=== PATIENT | male | born 1935 | race Caucasian/White ===

== ENCOUNTER 2020-02-22 06:44 | Outpatient (REF) | payer MEDICARE, OTHER, SELFPAY ==
[2020-02-22 08:14] LABS: Alanine Aminotransferase 14 U/L (0-40); Albumin Level 4.5 g/dL (3.5-5.0); Alkaline Phosphatase 57 U/L (39-117); Anion Gap 15 (12-20); Aspartate Amino Transferase 13 U/L (5-37); Bilirubin Total 0.7 mg/dL (0.0-1.0); Blood Urea Nitrogen 21 mg/dL (9-16); Calcium 8.8 mg/dL (8.4-10.2); Carbon Dioxide 23 mmol/L (22-29); Chloride 101 mmol/L (96-108); Cholesterol 145 mg/dL; Estimated Glomerular Filt Rate > 60; Glucose Fasting 169 mg/dL (60-99); HDL Cholesterol 37 mg/dL; LDL Cholesterol Calculated 78 mg/dl; Potassium 4.3 mmol/l (3.3-5.1); Sodium 135 mmol/L (135-145); Total Protein 7.5 g/dL (6.5-8.0); Triglycerides 150 mg/dL
[2020-02-22 10:01] LABS: Estimated Average Glucose 160 mg/dL; Hemoglobin A1c % 7.2 %
== END 2020-02-22 06:45 | disposition home or self-care (01) ==
LOC: HO.LAB 06:44
PROVIDERS: Visit Provider Internal Medicine
DX: E11.9 Type 2 diabetes mellitus without complications (principal)
CPT/HCPCS: 80053; 80061; 83036

== ENCOUNTER 2020-08-10 08:11 | Outpatient (REF) | payer MEDICARE, OTHER, SELFPAY ==
[2020-08-10 08:50] LABS: MANUAL DIFF FLAG NO
[2020-08-10 08:54] LABS: Basophils Percent Auto 0.6 % (0-2); Eosinophils Absolute Auto 0.1 X10*3/uL (0.0-0.4); Eosinophils Percent Auto 1.1 % (0-4); Hematocrit 43.4 % (42-52); Hemoglobin 14.7 g/dl (14.0-18.0); Imm Gran Abs Auto 0.03 X10*3/uL (0.00-0.03); Imm Gran Pct Auto 0.5 % (0.0-0.4); Lymphocytes Absolute Auto 1.5 X10*3/uL (1.2-4.9); Lymphocytes Percent Auto 21.8 % (20-40); Mean Corpuscular HGB Conc 33.9 g/dl (31.0-36.0); Mean Corpuscular Hemoglobin 30.9 pg (27.0-33.0); Mean Corpuscular Volume 91.2 fL (80-98); Mean Platelet Volume 10.1 fL (9.4-12.4); Monocytes Absolute Auto 0.5 X10*3/uL (0.1-1.2); Monocytes Percent Auto 7.7 % (2-11); Neutrophils Absolute Auto 4.5 X10*3/uL (2.0-8.3); Neutrophils Percent Auto 68.3 % (45-73); Platelet Count 255 X10*3/uL (160-400); Red Blood Count 4.76 X10*6/uL (4.60-5.80); Red Cell Distribution Width 12.7 % (11.0-16.0); White Blood Count 6.6 X10*3/uL (4.8-10.8)
[2020-08-10 09:19] LABS: Alanine Aminotransferase 22 U/L (0-40); Albumin Level 4.5 g/dL (3.5-5.0); Alkaline Phosphatase 59 U/L (39-117); Anion Gap 16 (12-20); Aspartate Amino Transferase 16 U/L (5-37); Blood Urea Nitrogen 20 mg/dL (9-16); Calcium 9.6 mg/dL (8.4-10.2); Carbon Dioxide 24 mmol/L (22-29); Chloride 101 mmol/L (96-108); Cholesterol 143 mg/dL; Estimated Glomerular Filt Rate 58; Glucose Fasting 180 mg/dL (60-99); HDL Cholesterol 35 mg/dL; LDL Cholesterol Calculated 74 mg/dl; Potassium 4.6 mmol/L (3.3-5.1); Sodium 136 mmol/L (135-145); Total Protein 7.6 g/dL (6.5-8.0); Triglycerides 170 mg/dL
[2020-08-10 09:33] LABS: Estimated Average Glucose 171 mg/dL; Hemoglobin A1c % 7.6 %
== END 2020-08-10 08:12 | disposition home or self-care (01) ==
LOC: HO.LAB 08:11
PROVIDERS: PCP Internal Medicine; Visit Provider Internal Medicine
DX: Z00.00 Encounter for general adult medical examination without abnormal findings (principal); E11.9 Type 2 diabetes mellitus without complications
CPT/HCPCS: 36415; 80053; 80061; 83036; 85025

== ENCOUNTER 2021-01-25 06:47 | Outpatient (REF) | payer MEDICARE, OTHER, SELFPAY ==
[2021-01-25 07:53] LABS: Cholesterol 145 mg/dL; HDL Cholesterol 33 mg/dL; LDL Cholesterol Calculated 81 mg/dl; Triglycerides 156 mg/dL
[2021-01-25 09:00] LABS: Estimated Average Glucose 166 mg/dL; Hemoglobin A1c % 7.4 %
== END 2021-01-25 06:48 | disposition home or self-care (01) ==
LOC: HO.LAB 06:47
PROVIDERS: PCP Internal Medicine; Visit Provider Internal Medicine
DX: E11.9 Type 2 diabetes mellitus without complications (principal)
CPT/HCPCS: 36415; 80061; 83036

== ENCOUNTER 2021-05-31 11:05 | Outpatient (REF) | payer MEDICARE, OTHER, SELFPAY ==
--- NOTE | ~2021-05-31 | XR_ITS ---
EXAMINATION: XR KNEE, RIGHT CLINICAL INFORMATION: Right anterior knee pain COMPARISON: None TECHNIQUE: Two views of the right knee. FINDINGS: Bone alignment is normal. No fracture or dislocation is seen. There is mild medial femoral tibial joint space narrowing. There are small osteophytes at the patellofemoral joint. There is an osteophyte at the quadriceps tendon insertion to the patella. There is no joint effusion. XR/XR knee RT 2V IMPRESSION: Mild degenerative changes.
== END 2021-05-31 11:06 | disposition home or self-care (01) ==
LOC: HO.XRAY 11:05
PROVIDERS: PCP Internal Medicine; Visit Provider Nurse Practitioner Acute Care
DX: M25.561 Pain in right knee (principal)
CPT/HCPCS: 73560

== ENCOUNTER 2021-06-09 09:41 | Outpatient (REF) | payer MEDICARE, OTHER, SELFPAY ==
--- NOTE | ~2021-06-09 | XR_ITS ---
EXAMINATION: XR HIP, RIGHT CLINICAL INFORMATION: Right hip pain COMPARISON: September 23, 2009 TECHNIQUE: AP pelvis and 2 views of the right hip. FINDINGS: AP film of the pelvis does not demonstrate any evidence of acute fracture or diastases. Changes of enthesopathy seen bilaterally. Prominent vascular calcifications are seen. 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 There is some sclerosis seen about the sacroiliac joint margins more prominent on the iliac sides without definite evidence of fusion or narrowing. 2 views of the right hip do not demonstrate evidence of acute fracture or dislocation. There is some collar spurring present with no abnormal lytic or sclerotic lesions. There is some spurring seen about the greater and lesser trochanters. No femoral head collapse is seen. XR/XR hip RT w PEL1V IMPRESSION: Changes of enthesopathy about the pelvis and hips. No acute fracture, dislocation, or destructive bony lesion appreciated.
== END 2021-06-09 09:42 | disposition home or self-care (01) ==
LOC: HO.XRAY 09:41
PROVIDERS: PCP Internal Medicine; Visit Provider Nurse Practitioner Acute Care
DX: M25.551 Pain in right hip (principal)
CPT/HCPCS: 73502

== ENCOUNTER 2021-09-05 06:10 | Outpatient (REF) | payer MEDICARE, OTHER, SELFPAY ==
[2021-09-05 08:26] LABS: Prostate Specific Antigen Scr 2.51 ng/mL (<0.05-4.0)
== END 2021-09-05 06:11 | disposition home or self-care (01) ==
LOC: HO.LAB 06:10
PROVIDERS: PCP Internal Medicine; Visit Provider Nurse Practitioner Family
DX: Z12.5 Encounter for screening for malignant neoplasm of prostate (principal)
CPT/HCPCS: 36415; 84153

== ENCOUNTER 2021-09-27 07:02 | Outpatient (REF) | payer MEDICARE, OTHER, SELFPAY ==
[2021-09-27 07:18] LABS: MANUAL DIFF FLAG NO
[2021-09-27 07:27] LABS: Basophils Absolute Auto 0.1 X10*3/uL (0.0-0.2); Basophils Percent Auto 0.9 % (0-2); Eosinophils Absolute Auto 0.1 X10*3/uL (0.0-0.4); Eosinophils Percent Auto 1.7 % (0-4); Hematocrit 41.3 % (42.0-52.0); Hemoglobin 14.2 g/dl (14.0-18.0); Imm Gran Abs Auto 0.03 X10*3/uL (0.00-0.03); Imm Gran Pct Auto 0.4 % (0.0-0.4); Lymphocytes Absolute Auto 1.9 X10*3/uL (1.2-4.9); Lymphocytes Percent Auto 24.4 % (20-40); Mean Corpuscular HGB Conc 34.4 g/dl (31.0-36.0); Mean Corpuscular Hemoglobin 30.7 pg (27.0-33.0); Mean Corpuscular Volume 89.2 fL (80.0-98.0); Monocytes Absolute Auto 0.6 X10*3/uL (0.1-1.2); Monocytes Percent Auto 7.3 % (2-11); Neutrophils Absolute Auto 5.1 x10*3/uL (2.0-8.3); Neutrophils Percent Auto 65.3 % (45-73); Platelet Count 249 X10*3/uL (160-400); Red Blood Count 4.63 X10*6/uL (4.60-5.80); Red Cell Distribution Width 12.9 % (11.0-16.0); White Blood Count 7.8 X10*3/uL (4.8-10.8)
[2021-09-27 07:55] LABS: Estimated Average Glucose 169 mg/dL; Hemoglobin A1c % 7.5 %
[2021-09-27 08:07] LABS: Alanine Aminotransferase 14 U/L (0-40); Albumin Level 4.5 g/dL (3.5-5.0); Alkaline Phosphatase 56 U/L (39-117); Anion Gap 14 (12-20); Aspartate Amino Transferase 13 U/L (5-37); Bilirubin Total 0.6 mg/dL (0.0-1.0); Blood Urea Nitrogen 15 mg/dL (9-16); Calcium 9.2 mg/dL (8.4-10.2); Carbon Dioxide 22 mmol/L (22-29); Chloride 103 mmol/L (96-108); Cholesterol 148 mg/dL; Estimated Glomerular Filt Rate > 60; Glucose Fasting 195 mg/dL (60-99); HDL Cholesterol 36 mg/dL; LDL Cholesterol Calculated 84 mg/dl; Potassium 4.4 mmol/L (3.3-5.1); Sodium 135 mmol/L (135-145); Total Protein 7.5 g/dL (6.5-8.0); Triglycerides 144 mg/dL
[2021-09-27 08:34] LABS: Thyroid Stimulating Hormone 1.02 uIU/mL (0.32-4.0)
== END 2021-09-27 07:03 | disposition home or self-care (01) ==
LOC: HO.LAB 07:02
PROVIDERS: PCP Internal Medicine; Visit Provider Internal Medicine
DX: Z00.00 Encounter for general adult medical examination without abnormal findings (principal); Z13.9 Encounter for screening, unspecified; Z13.0 Encounter for screening for diseases of the blood and blood-forming organs and certain disorders involving the immune mechanism; E11.9 Type 2 diabetes mellitus without complications
CPT/HCPCS: 36415; 80053; 80061; 83036; 84443; 85025

== ENCOUNTER → 2021-11-23 09:47 | Outpatient (BNVA) | payer MEDICARE, OTHER, SELFPAY | PROVIDERS: PCP Internal Medicine; Visit Provider Orthopaedic Surgery | DX: M70.71 Other bursitis of hip, right hip (principal); E11.9 Type 2 diabetes mellitus without complications | CPT/HCPCS: 20610; 99202; J1100 ==

== ENCOUNTER 2022-01-16 14:00 | Outpatient (RCR) | payer MEDICARE, OTHER, SELFPAY ==
--- NOTE | 2021-12-19 15:20 | MHC.PT.EP ---
[facility] [place] Office [place] Office [place] Office [address] [phone] F: [phone] F: [phone] F: [phone] F: [phone] Physical Therapy Plan of Care Date of Evaluation: Date of Surgery: N/A Diagnosis: R hip bursitis Assessment: Patient is an 86 y.o male referred from Dr. Patel with dx of R hip bursitis. He presents with lateral hip pain, weakness in glutes, quads, limited AROM R hip with impaired functional mobility; stair use, transfers, turning, prolonged standing, gait. He will benefit from skilled physical therapy to address aforementioned impairments and return to PLOF mobility. Frequency and Duration: The patient will be seen 2x/week for 4 weeks Short Term Goals: 2 weeks Patient demonstrates independence and consistency with HEP to self manage sxs and reduce pain 2/10. Patient presents with hip flexion 110 degrees to demonstrates normalized gait pattern. Clerk Specialist Goals: 4 weeks Patient demonstrates 4+/5 strength in R hip flexion for reciprocal stair use. Patient presents with 4+/5 strength in R glute med to improve sit to stand without use of hands. Treatment Plan: Modalities to reduce pain, spasms and effusion. Manual therapy to restore motion and function. Therapeutic exercise to improve strength and flexibility. Neuromuscular re-education for posture and balance. Therapeutic activities to return to functional activities of daily living. Electronically signed by: Praveena Schaffer, PT, DPT Please sign and return to therapist. Thank you for your referral.
--- NOTE | 2021-12-19 15:25 | MHC.PT.EP ---
[facility] [place] Office [place] Office [place] Office [address] [phone] F: [phone] F: [phone] F: [phone] F: [phone] Physical Therapy Plan of Care Date of Evaluation: Date of Surgery: N/A Diagnosis: R hip bursitis Assessment: Patient is an 86 y.o male referred from Dr. Patel with dx of R hip bursitis. He presents with lateral hip pain, weakness in glutes, quads, limited AROM R hip with impaired functional mobility; stair use, transfers, turning, prolonged standing, gait. He will benefit from skilled physical therapy to address aforementioned impairments and return to PLOF mobility. Frequency and Duration: The patient will be seen 2x/week for 4 weeks Short Term Goals: 2 weeks Patient demonstrates independence and consistency with HEP to self manage sxs and reduce pain 2/10. Patient presents with hip flexion 110 degrees to demonstrates normalized gait pattern. Rural Mail Carrier Goals: 4 weeks Patient demonstrates 4+/5 strength in R hip flexion for reciprocal stair use. Patient presents with 4+/5 strength in R glute med to improve sit to stand without use of hands. Treatment Plan: Modalities to reduce pain, spasms and effusion. Manual therapy to restore motion and function. Therapeutic exercise to improve strength and flexibility. Neuromuscular re-education for posture and balance. Therapeutic activities to return to functional activities of daily living. Electronically signed by: Praveena Schaffer, PT, DPT Please sign and return to therapist. Thank you for your referral.
--- NOTE | 2021-12-20 12:55 | MHC.PT.EP ---
[facility] [place] Office [place] Office [place] Office [address] [phone] F: [phone] F: [phone] F: [phone] F: [phone] Physical Therapy Plan of Care Date of Evaluation: Date of Surgery: N/A Diagnosis: R hip bursitis Assessment: Patient is an 86 y.o male referred from Dr. Patel with dx of R hip bursitis. He presents with lateral hip pain, weakness in glutes, quads, limited AROM R hip with impaired functional mobility; stair use, transfers, turning, prolonged standing, gait. He will benefit from skilled physical therapy to address aforementioned impairments and return to PLOF mobility. Frequency and Duration: The patient will be seen 2x/week for 4 weeks Short Term Goals: 2 weeks Patient demonstrates independence and consistency with HEP to self manage sxs and reduce pain 2/10. Patient presents with hip flexion 110 degrees to demonstrates normalized gait pattern. Tunnel Kiln Repairer Goals: 4 weeks Patient demonstrates 4+/5 strength in R hip flexion for reciprocal stair use. Patient presents with 4+/5 strength in R glute med to improve sit to stand without use of hands. Treatment Plan: Modalities to reduce pain, spasms and effusion. Manual therapy to restore motion and function. Therapeutic exercise to improve strength and flexibility. Neuromuscular re-education for posture and balance. Therapeutic activities to return to functional activities of daily living. Electronically signed by: Praveena Schaffer, PT, DPT Please sign and return to therapist. Thank you for your referral.
--- NOTE | 2021-12-20 13:02 | MHC.PT.EP ---
[facility] [place] Office [place] Office [place] Office [address] [phone] F: [phone] F: [phone] F: [phone] F: [phone] Physical Therapy Plan of Care Date of Evaluation: Date of Surgery: N/A Diagnosis: R hip bursitis Assessment: Patient is an 86 y.o male referred from Dr. Patel with dx of R hip bursitis. He presents with lateral hip pain, weakness in glutes, quads, limited AROM R hip with impaired functional mobility; stair use, transfers, turning, prolonged standing, gait. He will benefit from skilled physical therapy to address aforementioned impairments and return to PLOF mobility. Frequency and Duration: The patient will be seen 2x/week for 4 weeks Short Term Goals: 2 weeks Patient demonstrates independence and consistency with HEP to self manage sxs and reduce pain 2/10. Patient presents with hip flexion 110 degrees to demonstrates normalized gait pattern. Numerical Control Machine Tool Operator Goals: 4 weeks Patient demonstrates 4+/5 strength in R hip flexion for reciprocal stair use. Patient presents with 4+/5 strength in R glute med to improve sit to stand without use of hands. Treatment Plan: Modalities to reduce pain, spasms and effusion. Manual therapy to restore motion and function. Therapeutic exercise to improve strength and flexibility. Neuromuscular re-education for posture and balance. Therapeutic activities to return to functional activities of daily living. Electronically signed by: Praveena Schaffer, PT, DPT Please sign and return to therapist. Thank you for your referral.
--- NOTE | 2021-12-20 14:40 | MHC.PT.EP ---
[facility] [place] Office [place] Office [place] Office [address] [phone] F: [phone] F: [phone] F: [phone] F: [phone] Physical Therapy Plan of Care Date of Evaluation: Date of Surgery: N/A Diagnosis: R hip bursitis Assessment: Patient is an 86 y.o male referred from Dr. Patel with dx of R hip bursitis. He presents with lateral hip pain, weakness in glutes, quads, limited AROM R hip with impaired functional mobility; stair use, transfers, turning, prolonged standing, gait. He will benefit from skilled physical therapy to address aforementioned impairments and return to PLOF mobility. Frequency and Duration: The patient will be seen 2x/week for 4 weeks Short Term Goals: 2 weeks Patient demonstrates independence and consistency with HEP to self manage sxs and reduce pain 2/10. Patient presents with hip flexion 110 degrees to demonstrates normalized gait pattern. Franchise Development Manager Goals: 4 weeks Patient demonstrates 4+/5 strength in R hip flexion for reciprocal stair use. Patient presents with 4+/5 strength in R glute med to improve sit to stand without use of hands. Treatment Plan: Modalities to reduce pain, spasms and effusion. Manual therapy to restore motion and function. Therapeutic exercise to improve strength and flexibility. Neuromuscular re-education for posture and balance. Therapeutic activities to return to functional activities of daily living. Electronically signed by: Praveena Schaffer, PT, DPT Please sign and return to therapist. Thank you for your referral.
--- NOTE | 2022-01-17 12:30 | MHC.PT.DC ---
[facility] [place] Office [place] Office [place] Office [address] [phone] F: [phone] F: [phone] F: [phone] F: [phone] Physical Therapy Discharge Report Diagnosis: R hip bursitis Date of Surgery: N/A Date of Evaluation: 12/19/21 Date of Discharge: 01/16/22 Treatments to Date: 9 Cancellations to Date: No Shows to Date: Discharge Status: Achieved Goals Improved Function Independent with HEP Discharge Summary: He demonstrates improved AROM, strength in glutes and quads, improved gait pattern without compensations, able to perform sit to stands with hands in lap, able to perform step up 8 step with minimal railing which he was unable to do before. I do not feel he needs continued PT and can continue with independent HEP to self manage symptoms and continue to make strength gains and work on endurance at home. He agrees to plan. Electronically signed by: Praveena Schaffer, PT, DPT Please sign and return to therapist. Thank you for your referral.
== END 2022-01-17 12:31 | disposition home or self-care (01) ==
LOC: HO.PT 14:00
PROVIDERS: PCP Internal Medicine; Visit Provider Orthopaedic Surgery
DX: M70.71 Other bursitis of hip, right hip (principal)
CPT/HCPCS: 97110; 97140; 97161; 97530

== ENCOUNTER 2022-03-08 07:14 | Outpatient (REF) | payer MEDICARE, OTHER, SELFPAY ==
[2022-03-08 08:14] LABS: Estimated Average Glucose 171 mg/dL; Hemoglobin A1c % 7.6 %
[2022-03-08 08:38] LABS: Glucose Fasting 174 mg/dL (60-99)
== END 2022-03-08 07:15 | disposition home or self-care (01) ==
LOC: HO.LAB 07:14
PROVIDERS: PCP Internal Medicine; Visit Provider Internal Medicine
DX: E11.65 Type 2 diabetes mellitus with hyperglycemia (principal)
CPT/HCPCS: 36415; 82947; 83036

== ENCOUNTER 2022-04-02 12:17 | Outpatient (REF) | payer MEDICARE, OTHER, SELFPAY ==
[2022-04-02 12:54] LABS: COVID-19 Test Positive (Negative)
== END 2022-04-02 12:18 | disposition home or self-care (01) ==
LOC: HO.LAB 12:17
PROVIDERS: Visit Provider Internal Medicine
DX: Z20.822 Contact with and (suspected) exposure to COVID-19 (principal)
CPT/HCPCS: 87635; C9803

== ENCOUNTER 2022-07-25 08:14 | Outpatient (REF) | payer MEDICARE, OTHER, SELFPAY ==
[2022-07-25 08:30] LABS: MANUAL DIFF FLAG NO
[2022-07-25 08:42] LABS: Basophils Absolute Auto 0.1 X10*3/uL (0.0-0.2); Basophils Percent Auto 0.9 % (0-2); Eosinophils Absolute Auto 0.1 X10*3/uL (0.0-0.4); Eosinophils Percent Auto 1.3 % (0-4); Hemoglobin 14.9 g/dl (14.0-18.0); Imm Gran Abs Auto 0.04 X10*3/uL (0.00-0.03); Imm Gran Pct Auto 0.5 % (0.0-0.4); Lymphocytes Absolute Auto 1.8 X10*3/uL (1.2-4.9); Lymphocytes Percent Auto 22.1 % (20-40); Mean Corpuscular HGB Conc 33.9 g/dl (31.0-36.0); Mean Corpuscular Hemoglobin 30.1 pg (27.0-33.0); Mean Corpuscular Volume 88.9 fL (80.0-98.0); Mean Platelet Volume 9.9 fL (9.4-12.4); Monocytes Absolute Auto 0.6 X10*3/uL (0.1-1.2); Monocytes Percent Auto 7.2 % (2-11); Neutrophils Absolute Auto 5.4 x10*3/uL (2.0-8.3); Platelet Count 245 X10*3/uL (160-400); Red Blood Count 4.95 X10*6/uL (4.60-5.80); White Blood Count 7.9 X10*3/uL (4.8-10.8)
[2022-07-25 08:59] LABS: Alanine Aminotransferase 10 U/L (0-40); Albumin Level 4.4 g/dL (3.5-5.0); Alkaline Phosphatase 64 U/L (39-117); Anion Gap 16 (12-20); Aspartate Amino Transferase 12 U/L (5-37); Bilirubin Total 0.8 mg/dL (0.0-1.0); Blood Urea Nitrogen 19 mg/dL (9-16); Calcium 9.7 mg/dL (8.4-10.2); Carbon Dioxide 25 mmol/L (22-29); Chloride 101 mmol/L (96-108); Cholesterol 160 mg/dL; Estimated Glomerular Filt Rate > 60; Glucose Fasting 198 mg/dL (60-99); HDL Cholesterol 34 mg/dL; LDL Cholesterol Calculated 98 mg/dl; Potassium 4.7 mmol/L (3.3-5.1); Sodium 137 mmol/L (135-145); Total Protein 7.3 g/dL (6.5-8.0); Triglycerides 141 mg/dL
[2022-07-25 09:00] LABS: Estimated Average Glucose 177 mg/dL; Hemoglobin A1c % 7.8 %
[2022-07-25 15:00] LABS: Creatinine Urine 110.03 mg/dL; Microalbum/Creatinine Ratio Ur 16.3 ug/mg cr
== END 2022-07-25 08:15 | disposition home or self-care (01) ==
LOC: HO.LAB 08:14
PROVIDERS: PCP Internal Medicine; Visit Provider Internal Medicine
DX: N28.9 Disorder of kidney and ureter, unspecified (principal); D64.9 Anemia, unspecified; E78.5 Hyperlipidemia, unspecified; E11.69 Type 2 diabetes mellitus with other specified complication; E66.01 Morbid (severe) obesity due to excess calories; E11.65 Type 2 diabetes mellitus with hyperglycemia
CPT/HCPCS: 36415; 80053; 80061; 82043; 83036; 85025

== ENCOUNTER → 2022-11-07 06:55 | Outpatient (REF) | payer MEDICARE, OTHER, SELFPAY ==
--- NOTE | 2022-11-07 07:00 | ECG_ITS ---
Test Reason : ck rhythm Blood Pressure : / mmHG Vent. Rate : 089 BPM Atrial Rate : 089 BPM P-R Int : 170 ms QRS Dur : 108 ms QT Int : 358 ms P-R-T Axes : 067 -52 032 degrees QTc Int : 435 ms Normal sinus rhythm Left axis deviation Abnormal ECG When compared with ECG of 18-JAN-2020 09:51, No significant change was found Referred By: Dimitri Wilson Electronically Signed By:Devaughn Blanca
== END ==
LOC: HO.CARD 06:55
PROVIDERS: PCP Internal Medicine; Visit Provider Internal Medicine
DX: R53.1 Weakness (principal)
CPT/HCPCS: 93005

== ENCOUNTER → 2022-11-07 07:00 | Outpatient (BNV) | payer MEDICARE, OTHER, SELFPAY | PROVIDERS: PCP Internal Medicine; Visit Provider Internal Medicine Cardiovascular Disease | DX: R94.31 Abnormal electrocardiogram [ECG] [EKG] (principal) | CPT/HCPCS: 93010 ==

== ENCOUNTER 2022-11-13 10:32 | Outpatient (AMB) | payer MEDICARE, OTHER, SELFPAY ==
--- NOTE | 2022-11-13 10:35 | MHC.PC.OV ---
Vital Signs 11/13/22 10:36 Height 6 ft Weight 179 lb 8 oz BMI 24.3 BP 130/70 Blood Pressure Location Lt brachial Position Sitting Pulse 98 Pulse Source Pulse Oximeter Pulse Oximetry (%) 94 Oxygen Delivery Method Room Air Intake Visit Reasons: 3mth f/u Intake Note: Patient is here to follow up on DM, Hyperlipidemia, HTN. On Site Property Manager Required: No Ink Jet Operator: Not Required per policy Accompanied by: Self / Same As Patient Allergies No Known Allergies [No Known Allergies*] Allergy (Verified 11/13/22 10:36) Medication List - Last Reconciled 11/13/22 by Dimitri Wilson MD acetaminophen 1,000 mg (2 x 500 mg) PO Q6H PRN blood sugar diagnostic (FreeStyle Lite Strips) to check blood sugars once a day blood-glucose meter (FreeStyle Lite Meter kit) USE DIRECTED blood-glucose meter (Accu-Chek Guide Glucose Meter) As directed glyburide 2.5 mg PO BID ibuprofen 800 mg PO Q6H PRN lidocaine 5% 1 patch topical DAILY PRN lisinopril 20 mg PO DAILY metformin 1,000 mg (2 x 500 mg) PO BID 30 days simvastatin 20 mg PO DAILY Tobacco use date assessed: 07/30/22 Fall risk assessment: No Falls in past year Last assessed Fall Risk: 11/13/22 Dental Screening Dental Screen Date: 11/13/22 Did you have a dental visit in the last 12 months?: Yes Did you have a dental problem in the last 6 months where you did not have access to dental care?: No Was dental information given to patient?: Patient has dentist HPI 3mth f/u HPI Details not compliant with metformin; BS 200 PFSH Medical History (Updated 11/13/22 @ 10:54 by Dimitri Wilson MD) Diabetes mellitus Hypertension Surgical History History of hernia repair Family History Father Liver problem Mother Past heart attack Brother Cancer Sister Cancer Social History Housing: House Alcohol intake: current Alcohol intake frequency: 0-2 drinks per day Alcohol type: beer Patient Tobacco Use Status: Never used Tobacco e-Cigarette/Vaping Use: Never Used Second Hand Smoke Exposure: No service: Yes Current occupational status: retired Cognitive needs: No Hearing needs: No Vision needs: Yes (reading glasses) Questionnaire PHQ-9 Over the last 2 weeks, how often have you been bothered by any of the following problems? Depression Screening Interpretation: Negative Source: Developed by Drs. Jeffrey Taylor, Marianne Russo, Radames Marino and colleagues, with an educational puja from [employer]. Thrive Questionnaire Date Thrive assessed: 04/27/22 Currently or been in a relationship where the following occur: no concerns reported NEEL-7 AMB Questionnaire NEEL-7 Date NEEL - 7 assessed: 04/27/22 Source: Developed by Drs. Jeffrey Taylor, Marianne Russo, Radames Marino and colleagues, with an educational puja from [employer]. Review of Systems Const Denies chills, Denies headache(s) and Denies weight loss ENT Denies headache(s) Card Denies chest pain, Denies syncope, Denies irregular heart rhythm and Denies dyspnea Resp Denies chest congestion, Denies cough and Denies dyspnea GI Denies abdominal pain, Denies change in stool character, Denies nausea and Denies vomiting Musc Denies deformity and Denies joint swelling Neuro Denies syncope and Denies headache(s) Physical exam (Primary Care) Vital Signs: Last Vital Signs Pulse 98 11/13/22 10:36 BP 130/70 11/13/22 10:36 Pulse Ox 94 11/13/22 10:36 Oxygen Delivery Method Room Air 11/13/22 10:36 BMI result Body Mass Index 24.3 Tobacco/Smoking Status: Tobacco use Status Tobacco use date assessed 07/30/22 11/13/22 10:43 Patient Tobacco Use Status Never used Tobacco 11/13/22 10:43 e-Cigarette/Vaping Use Never Used 11/13/22 10:43 Depression Screening Interpretation: Negative Thrive Assessment: Date of Thrive Assessment Date Thrive assessed 04/27/22 11/13/22 10:43 Currently or been in a relationship where the following occur: no concerns reported Const General: cooperative, healthy appearing and no acute distress Chest Chest palpation & inspection: normal inspection of the chest Resp Effort & Inspection: normal respiratory effort Auscultation: clear to auscultation bilaterally Percussion: percussion normal Cardio Jugular venous distension: no JVD Palpation: normal PMI Rhythm: regular rhythm Results AMB Hemoglobin A1c AMB Hemoglobin A1c 8.1 % Last Edit by UDAY De Leon on 11/13/22 10:47 Results Reviewed Results Reviewed: Laboratory Last Values Hgb A1c (Clinic) 8.1 % (4.0-6.0) H 11/13/22 10:34 Assessment and Plan Assessment & Plan (1) Hyperlipidemia: Code(s): E78.5 - Hyperlipidemia, unspecified Plan: stable; same rx (2) Hypertension: Code(s): I10 - Essential (primary) hypertension Plan: stable; same rx (3) Diabetes mellitus with coincident hypertension: Code(s): E11.9 - Type 2 diabetes mellitus without complications; I10 - Essential (primary) hypertension Plan: add rx Orders: Orders AMB Hemoglobin A1c Today E11.9 - Type 2 diabetes mellitus without complications Medications: New glyburide 2.5 mg PO BID 60 tabs 4RF Coding Level of Care Code Est Pt Level 4 (65258) Diagnoses Hyperlipidemia E78.5 Hypertension I10 Diabetes mellitus with coincident hypertension E11.9; I10
[2022-11-13 10:36] VITALS: BP 130/70; PULSE 98; O2SAT 94; BMI 24.3
== END 2022-11-13 10:53 | disposition home or self-care (01) ==
PROVIDERS: Visit Provider Internal Medicine
DX: E78.5 Hyperlipidemia, unspecified (principal); I10 Essential (primary) hypertension; E11.9 Type 2 diabetes mellitus without complications
CPT/HCPCS: 83036; 99214

== ENCOUNTER 2023-02-01 06:39 | Outpatient (REF) | payer MEDICARE, OTHER, SELFPAY | END 2023-02-01 06:40 | disposition home or self-care (01) | LOC: HO.LAB 06:39 | PROVIDERS: PCP Internal Medicine; Visit Provider Internal Medicine | DX: Z13.89 Encounter for screening for other disorder (principal) ==

== ENCOUNTER 2023-02-07 08:26 | Outpatient (REF) | payer MEDICARE, OTHER, SELFPAY ==
[2023-02-07 09:58] LABS: Creatinine Urine 95.79 mg/dL; Microalbum/Creatinine Ratio Ur 10.4 ug/mg cr (<30)
[2023-02-07 10:02] LABS: Alanine Aminotransferase 15 U/L (0-40); Albumin Level 4.4 g/dL (3.5-5.0); Alkaline Phosphatase 58 U/L (39-117); Anion Gap 15 (12-20); Aspartate Amino Transferase 23 U/L (5-37); Bilirubin Total 0.5 mg/dL (0.0-1.0); Blood Urea Nitrogen 17 mg/dL (9-16); Calcium 9.8 mg/dL (8.4-10.2); Carbon Dioxide 22 mmol/L (22-29); Chloride 103 mmol/L (96-108); Cholesterol 156 mg/dL (<200); Estimated Glomerular Filt Rate > 60; Glucose Fasting 153 mg/dL (60-99); HDL Cholesterol 36 mg/dL (>40); LDL Cholesterol Calculated 74 mg/dL (<100); Potassium 4.2 mmol/L (3.3-5.1); Sodium 136 mmol/L (135-145); Total Protein 7.9 g/dL (6.5-8.0); Triglycerides 232 mg/dL (<150)
== END 2023-02-07 08:27 | disposition home or self-care (01) ==
LOC: HO.LAB 08:26
PROVIDERS: PCP Internal Medicine; Visit Provider Internal Medicine
DX: E78.5 Hyperlipidemia, unspecified (principal); E11.9 Type 2 diabetes mellitus without complications; I10 Essential (primary) hypertension
CPT/HCPCS: 36415; 80053; 80061; 82043; 82570

== ENCOUNTER 2023-02-13 13:18 | Outpatient (AMB) | payer MEDICARE, OTHER, SELFPAY ==
[2023-02-13 13:25] VITALS: BP 146/78; PULSE 92; O2SAT 98; BMI 25.1
--- NOTE | 2023-02-13 13:25 | A.OFFPC_ITS ---
Vital Signs 02/13/23 13:25 Height 6 ft Weight 185 lb BMI 25.1 BP 146/78 H Blood Pressure Location Lt brachial Position Sitting Pulse 92 Pulse Source Pulse Oximeter Pulse Oximetry (%) 98 Oxygen Delivery Method Room Air Intake Visit Reasons: 3mth f/u Allergies No Known Allergies [No Known Allergies*] Allergy (Verified 02/13/23 13:26) Medication List - Last Reconciled 02/14/23 by Dimitri Wilson MD acetaminophen 1,000 mg (2 x 500 mg) PO Q6H PRN blood sugar diagnostic (FreeStyle Lite Strips) to check blood sugars once a day blood-glucose meter (FreeStyle Lite Meter kit) USE DIRECTED blood-glucose meter (Accu-Chek Guide Glucose Meter) As directed glyburide 2.5 mg PO BID ibuprofen 800 mg PO Q6H PRN lisinopril 20 mg PO DAILY metformin 1,000 mg (2 x 500 mg) PO BID 30 days simvastatin 20 mg PO DAILY Tobacco use date assessed: 07/30/22 Fall risk assessment: No Falls in past year Last assessed Fall Risk: 02/13/23 Dental Screening Dental Screen Date: 02/13/23 Did you have a dental visit in the last 12 months?: No Did you have a dental problem in the last 6 months where you did not have access to dental care?: No Was dental information given to patient?: Patient has dentist HPI 3mth f/u HPI Details DM HTN hyperlipidemia on rx; doing well; due for labs [facility] Medical History Diabetes mellitus Hypertension Surgical History History of hernia repair Family History Father Liver problem Mother Past heart attack Brother Cancer Sister Cancer Social History Housing: House Alcohol intake: current Alcohol intake frequency: 0-2 drinks per day Alcohol type: beer Patient Tobacco Use Status: Never used Tobacco e-Cigarette/Vaping Use: Never Used Second Hand Smoke Exposure: No service: Yes Current occupational status: retired Cognitive needs: No Hearing needs: No Vision needs: Yes (reading glasses) Questionnaire PHQ-9 Over the last 2 weeks, how often have you been bothered by any of the following problems? 1. Little interest or pleasure in doing things: not at all 2. Feeling down, depressed, or hopeless: not at all 3. Trouble falling or staying asleep, or sleeping too much: not at all 4. Feeling tired or having little energy: not at all 5. Poor appetite or overeating: not at all 6. Feeling bad about yourself - or that you are a failure or have let yourself or your family down: not at all 7. Trouble concentrating on things, such as reading the newspaper or watching television: not at all 8. Moving or speaking so slowly that other people could have noticed. Or the opposite - being so fidgety or restless that you have been moving around a lot more than usual: not at all 9. Thoughts that you would be better off or of hurting yourself in some way: not at all Total score: 0 Depression Screening Interpretation: Negative Depression Screening Done: Yes Source: Developed by Drs. Jeffrey Taylor, Marianne Russo, Radames Marino and colleagues, with an educational puja from [employer]. Thrive Questionnaire Date Thrive assessed: 04/27/22 AUDIT C Alcohol Use Questionnaire (AUDIT-C) 1. How often do you have a drink containing alcohol?: 4 or more times a week 2. How many drinks containing alcohol do you have on a typical day when you are drinking?: 1 or 2 3. How often do you have six or more drinks on one occasion?: Never Total Score: 4 Score Reviewed/Action Taken: Yes NEEL-7 AMB Questionnaire NEEL-7 Date NEEL - 7 assessed: 04/27/22 Source: Developed by Drs. Jeffrey Taylor, Marianne Russo, Radames Marino and colleagues, with an educational puja from [employer]. Review of Systems Const Denies chills, Denies headache(s) and Denies weight loss ENT Denies headache(s) Card Denies chest pain, Denies syncope, Denies irregular heart rhythm and Denies dyspnea Resp Denies chest congestion, Denies cough and Denies dyspnea GI Denies abdominal pain, Denies change in stool character, Denies nausea and Denies vomiting Musc Denies deformity and Denies joint swelling Neuro Denies syncope and Denies headache(s) Physical exam (Primary Care) Vital Signs: Last Vital Signs Pulse 92 02/13/23 13:25 BP 146/78 H 02/13/23 13:25 Pulse Ox 98 02/13/23 13:25 Oxygen Delivery Method Room Air 02/13/23 13:25 BMI result Body Mass Index 25.1 Tobacco/Smoking Status: Tobacco use Status Tobacco use date assessed 07/30/22 02/13/23 13:26 Patient Tobacco Use Status Never used Tobacco 02/13/23 13:26 e-Cigarette/Vaping Use Never Used 02/13/23 13:26 PHQ-9: PHQ-9 Score PHQ-9: Total score 0 02/13/23 14:29 Depression Screening Interpretation: Negative Thrive Assessment: Date of Thrive Assessment Date Thrive assessed 04/27/22 02/13/23 13:26 Const General: cooperative, comfortable, no acute distress and alert Neck Neck: Yes no lymphadenopathy Thyroid: Thyroid normal Resp Effort & Inspection: normal respiratory effort Auscultation: clear to auscultation bilaterally Percussion: percussion normal Cardio Jugular venous distension: no JVD Palpation: normal PMI Rate: regular rate Rhythm: regular rhythm Heart sounds: S1 normal heart sound present and S2 normal heart sound present GI Inspection: Yes normal to inspection Palpation (GI): No hepatosplenomegaly present Skin General skin exam: no rashes or lesions noted Extrem General: Yes no clubbing, cyanosis or edema Results AMB Hemoglobin A1c AMB Hemoglobin A1c 6.7 % Last Edit by UDAY Al on 02/13/23 14:29 Results Reviewed Results Reviewed: Laboratory Last Values Hgb A1c (Clinic) 6.7 % (4.0-6.0) H 02/13/23 13:27 Assessment and Plan Assessment & Plan (1) Diabetes mellitus with coincident hypertension: Code(s): E11.9 - Type 2 diabetes mellitus without complications; I10 - Essential (primary) hypertension Plan: stable; same rx (2) Hyperlipidemia: Code(s): E78.5 - Hyperlipidemia, unspecified Plan: stable; same rx (3) Hypertension: Code(s): I10 - Essential (primary) hypertension Plan: stable; same rx Orders: Orders Lipid Panel Today E78.5 - Hyperlipidemia, unspecified Glucose Fasting Today R73.9 - Hyperglycemia, unspecified AMB Hemoglobin A1c 02/13/23 E11.9 - Type 2 diabetes mellitus without complicatio ns, I10 - Essential (primary) hypertension Hemoglobin A1c Today R73.9 - Hyperglycemia, unspecified Coding Level of Care Code Est Pt Level 4 (71936) Diagnoses Diabetes mellitus with coincident hypertension E11.9; I10 Hyperlipidemia E78.5 Hypertension I10
== END 2023-02-13 13:42 | disposition home or self-care (01) ==
PROVIDERS: PCP Internal Medicine; Visit Provider Internal Medicine
DX: E11.65 Type 2 diabetes mellitus with hyperglycemia (principal); I10 Essential (primary) hypertension
CPT/HCPCS: 83036; 99214

== ENCOUNTER 2023-02-21 08:39 | Outpatient (AMB) | payer MEDICARE, OTHER, SELFPAY ==
[2023-02-21 08:55] VITALS: BP 124/80; PULSE 88; BMI 24.2
--- NOTE | 2023-02-21 08:55 | MHC.OFFVIS ---
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 Intake Note: New patient c/o weakness post covid has been feeling better [employer] Laboratory Director Required: No Allergies No Known Allergies [No Known Allergies*] Allergy (Verified 02/13/23 13:26) Medication List - Last Reconciled 02/21/23 by Yosef Cuello MD acetaminophen 1,000 mg (2 x 500 mg) PO Q6H PRN blood sugar diagnostic (FreeStyle Lite Strips) to check blood sugars once a day blood-glucose meter (FreeStyle Lite Meter kit) USE DIRECTED blood-glucose meter (Accu-Chek Guide Glucose Meter) As directed glyburide 2.5 mg PO BID ibuprofen 800 mg PO Q6H PRN lisinopril 20 mg PO DAILY metformin 1,000 mg (2 x 500 mg) PO BID 30 days simvastatin 20 mg PO DAILY HPI HPI Comments History of Present Illness Details Thank you for referring Jeet in cardiology consultation today for symptoms of fatigue. He is 87-year-old male who had COVID last March. Since then he was having lot of symptoms of fatigue. He has a fatigue is mostly when he wakes up in the morning. Symptoms as a day goal by improved. He denies any clear symptoms of shortness of breath, orthopnea, PND although he says he has slow down because of issue with the right thigh. He does have symptoms of daytime somnolence. He denies any exertional chest pain. Denies any prolonged palpitation irregular heartbeat. EKG done in October had shown left axis deviation without any obvious Q-waves. He does have longstanding history of hypertension, hyperlipidemia and diabetes. He does not have any prior cardiovascular issues. [facility] Medical History Diabetes mellitus Hypertension Surgical History History of hernia repair Family History Father Liver problem Mother Past heart attack Brother Cancer Sister Cancer Social History Housing: House Alcohol intake: current Alcohol intake frequency: 0-2 drinks per day Alcohol type: beer Patient Tobacco Use Status: Never used Tobacco e-Cigarette/Vaping Use: Never Used Second Hand Smoke Exposure: No service: Yes Current occupational status: retired Cognitive needs: No Hearing needs: No Vision needs: Yes (reading glasses) Review of Systems Const Denies chills, Denies daytime sleepiness, Denies fatigue, Denies fever(s), Denies frequent falls, Denies poor appetite, Denies snoring, Denies stops breathing during sleep, Denies weakness, Denies weight gain and Denies weight loss Eyes Denies loss of vision ENT Denies dizziness and Denies hearing loss Card Denies chest pain, Denies claudication, Denies leg edema, Denies lightheadedness, Denies palpitations, Denies dyspnea, Denies dyspnea on exertion and Denies orthopnea Resp Denies cough, Denies excessive phlegm production, Denies dyspnea, Denies dyspnea on exertion, Denies snoring and Denies wheezing GI Denies abdominal pain, Denies hematochezia, Denies change in bowel habits, Denies nausea and Denies vomiting Denies dysuria and Denies urinary frequency Musc Denies arthralgias, Denies muscle weakness, Denies numbness and Denies other (frequent falls) Skin/Breast Denies nail changes and Denies rash Neuro Denies Abnormal speech present, Denies dizziness, Denies frequent falls, Denies loss of vision, Denies memory loss, Denies numbness and Denies weakness Psych Denies depression and Denies memory loss Endo Denies fatigue and Denies palpitations Allen/Lymph Reports easy bruising and Reports other (anemia) Aller/Immun Denies wheezing Physical Exam Vital Signs: Last Vital Signs Pulse 88 02/21/23 08:55 BP 124/80 02/21/23 08:55 BMI result Body Mass Index 24.2 Const General: cooperative, comfortable, no acute distress, well developed, alert, awake and Physically active Nutritional Appearance: average body habitus Orientation/consciousness: patient oriented x3 Limitations: no limitations HEENT Head: Yes normocephalic and Yes atraumatic Neck Neck: Yes trachea midline, Yes supple and Yes no JVD Resp Effort & Inspection: normal respiratory effort Auscultation: clear to auscultation bilaterally Cardio Jugular venous distension: no JVD Palpation: normal PMI Rate: regular rate Rhythm: regular rhythm Heart sounds: S1 normal heart sound present, S2 normal heart sound present, no click, no gallops, no murmurs and no rubs GI Auscultation: normal bowel sounds Skin General skin exam: no rashes or lesions noted and ecchymosis Neuro General: patient oriented x3 and no focal motor deficits Speech: No Abnormal speech present Extrem General: Yes no clubbing, cyanosis or edema Psych Appearance: grossly normal Assessment & Plan Assessment & Plan (1) Fatigue: Code(s): R53.83 - Other fatigue Plan: Patient with symptoms of fatigue after COVID, could be related to deconditioning aging but the symptoms fatigue mostly in the morning our daytime somnolence suggestive of sleep apnea. Advise sleep study although he is currently not interested in pursuing the same. Will defer to him as to if he wants further workup from that perspective. Also the possibilities development of cardiomyopathy given his multiple risk factors and prior infection was COVID. Will suggest an echocardiogram to assess for the same. Likelihood of coronary artery disease is present given his age and multiple risk factors although he has no current exertional symptoms and myocardial ischemia is not likely given the symptoms at rest. No further workup from that perspective is indicated. Continue risk factor modification. Will follow up in the clinic if need be. Thank you for allowing me to partake in his care Coding Level of Care Code New Pt Level 3 (73397) Diagnoses Fatigue R53.83
== END 2023-02-21 09:24 | disposition home or self-care (01) ==
PROVIDERS: PCP Internal Medicine; Visit Provider Internal Medicine Cardiovascular Disease
DX: R53.83 Other fatigue (principal)
CPT/HCPCS: 99203

== ENCOUNTER → 2023-02-21 08:39 | Outpatient (BNVA) | payer MEDICARE, OTHER, SELFPAY | PROVIDERS: PCP Internal Medicine; Visit Provider Internal Medicine Cardiovascular Disease | DX: R53.83 Other fatigue (principal) | CPT/HCPCS: 99202 ==

== ENCOUNTER → 2023-03-05 13:46 | Outpatient (REF) | payer MEDICARE, OTHER, SELFPAY ==
--- NOTE | 2023-03-05 13:50 | CA_ITS ---
Transthoracic Echocardiogram Patient (Last, First, Middle): Jeet Mena J Gender: Male Date of : 1935 Age: 87 Procedure Date: 03/05/2023 Procedure Type: Transthoracic Echocardiogram Location: OP Height: 182.88 cm Weight: 84.82 kg BSA: 2.07 m2 Heart Rate: 91 bpm BP: 118 / 70 mmHg Maintenance Person: JÚNIOR Referring MD: Yosef Cuello MD Symptoms: R53.83 - Other fatigue Study Quality: Fair/w Contrast ECG Rhythm: Sinus Conclusions: - The left ventricular systolic function is mildly decreased. The calculated ejection fraction is 45% by biplane method. - No obvious valvular pathology seen on this study. Findings Procedure Information Contrast agent, definity, is being given per protocol without apparent complications. Left Ventricle Normal left ventricular cavity size. The left ventricular systolic function is mildly decreased. The calculated ejection fraction is 45% by biplane method. There is mild global hypokinesis. Evidence suggests grade I (mild) diastolic dysfunction. There is mild septal asymmetric hypertrophy. Right Ventricle Normal right ventricular cavity size and systolic function. Atria Both atria are normal in size. Aortic Valve There is a normal trileaflet aortic valve. There is no aortic valve stenosis. There is no aortic valve regurgitation. Mitral Valve There is mild anterior mitral leaflet thickening. There is mild mitral annular calcification. There is mild mitral valve regurgitation. There is no mitral valve stenosis. Pulmonic Valve The pulmonic valve is likely normal. Tricuspid Valve Normal tricuspid valve structure. There is trace tricuspid valve regurgitation. There is no evidence of pulmonary hypertension. Great Vessels The asc aorta is normal in size. Venous The inferior vena cava is normal in size and collapses greater than 50% with inspiration. Pericardium/Pleural There is no evidence of pericardial effusion. Prior Study Comparison No prior study available for comparison. Recommendations, Care & Conclusions No obvious valvular pathology seen on this study. Measurements 2D Linear Measurements IVSd: 1.19 0.6-0.9/0.6-1.0 cm LVIDd: 3.82 3.9-5.3/4.2-5.9 cm LVIDd Index: 1.85 2.4-3.2/2.2-3.1 cm/m2 LVIDs: 2.15 2.0-3.6 cm LVPWd: 0.96 0.7-1.1 cm LA Diam: 3.80 2.7-3.8/3.0-4.0 cm LAIDs Index: 1.84 1.5-2.3 cm/m2 LV Mass: 163.65 67-162/88-224 g LV Mass Index: 79.06 43-95/49-115 g/m2 LVOT Diam: 2.10 3.0+(-)1.3 cm 2D Systolic Function EF 4C: 38.60 >55% EF 2C: 48.80 >55% EF BiP: 44.70 >55% Mitral Valve MV Pk E: 0.45 MV PK A: 1.01 MV Decel Time: 77.00 E/A: 0.40 E'Lateral: 5.11 E'Medial: 5.11 E/E' Med: 8.80 E/E' Lat: 8.80 PHT: 23.00 MVA PHT: 9.57 Decel [place]: 5.82 Aortic Valve AoV Pk Yunior: 1.03 AoV Mn Yunior: 0.82 AoV VTI: 0.19 AoV Pk Grad: 4.00 Aov Mn Grad: 3.00 NADYA Cont.VTI: 2.53 LVOT LVOT Pk Yunior: 0.75 LVOT Mn Yunior: 0.53 LVOT VTI: 0.14 LVOT Pk Grad: 2.00 LVOT Mn Grad: 1.00 LVOT Diam: 2.10 LVOT Area: 3.46 Diastolic Function MV Pk E: 0.45 MV Pk A: 1.01 E/A: 0.40 E'Medial: 5.11 E/E' Med: 8.80 E' Laterial: 5.11 E/E' Lat: 8.80 Right Ventricle TAPSE (mm): 20.30 TVS' Yunior: 11.00 Tricuspid Valve TR Pk Yunior: 1.89 TR Pk Grad: 14.00 RA Press: 3.00 RVSP: 17.00 Great Vessels Aorta Sinus of Valsalva: 3.80 2.0-3.5 cm Ao Asc: 3.70 2.1-3.4 cm Pulmonary Valve PV Pk Yunior: 1.07 Peak PV Grad: 5.00 Updated in Other Vendor System with Status of Final Colten Valentine MD electronically signed on 03/05/2023 3:42:43 PM with status of Final
== END ==
LOC: HO.CARD 13:46
PROVIDERS: PCP Internal Medicine; Visit Provider Internal Medicine Cardiovascular Disease
DX: R53.83 Other fatigue (principal)
CPT/HCPCS: 93306; Q9957

== ENCOUNTER → 2023-03-05 13:50 | Outpatient (BNV) | payer MEDICARE, OTHER, SELFPAY | PROVIDERS: PCP Internal Medicine; Visit Provider Internal Medicine | DX: I34.0 Nonrheumatic mitral (valve) insufficiency (principal) | CPT/HCPCS: 93306 ==

== ENCOUNTER 2023-05-20 13:45 | Outpatient (AMB) | payer MEDICARE, OTHER, SELFPAY ==
[2023-05-20 13:48] VITALS: BP 122/78; PULSE 103; O2SAT 98; BMI 25.4
--- NOTE | 2023-05-20 13:48 | MHC.PC.OV ---
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 Operator Required: No Social Research Assistant: Not Required per policy Accompanied by: Self / Same As Patient Allergies No Known Allergies [No Known Allergies*] Allergy (Verified 05/20/23 13:48) Medication List - Last Reconciled 05/21/23 by Dimitri Wilson MD acetaminophen 1,000 mg (2 x 500 mg) PO Q6H PRN blood sugar diagnostic (FreeStyle Lite Strips) to check blood sugars once a day blood-glucose meter (FreeStyle Lite Meter kit) USE DIRECTED blood-glucose meter (Accu-Chek Guide Glucose Meter) As directed glyburide 2.5 mg PO BID ibuprofen 800 mg PO Q6H PRN lisinopril 20 mg PO DAILY metformin 1,000 mg (2 x 500 mg) PO BID 30 days simvastatin 20 mg PO DAILY Tobacco use date assessed: 05/20/23 Fall risk assessment: No Falls in past year Last assessed Fall Risk: 05/20/23 Dental Screening Dental Screen Date: 05/20/23 Did you have a dental visit in the last 12 months?: No Did you have a dental problem in the last 6 months where you did not have access to dental care?: No Was dental information given to patient?: Patient has dentist HPI 3 month f/u HPI Details DM HTN and hyperlipidemia; doing well and stable [facility] Medical History Diabetes mellitus Hypertension Surgical History History of hernia repair Family History Father Liver problem Mother Past heart attack Brother Cancer Sister Cancer Social History Housing: House Alcohol intake: current Alcohol intake frequency: 0-2 drinks per day Alcohol type: beer Patient Tobacco Use Status: Never used Tobacco e-Cigarette/Vaping Use: Never Used Second Hand Smoke Exposure: No service: Yes Current occupational status: retired Cognitive needs: No Hearing needs: No Vision needs: Yes (reading glasses) Questionnaire PHQ-9 Over the last 2 weeks, how often have you been bothered by any of the following problems? 1. Little interest or pleasure in doing things: not at all 2. Feeling down, depressed, or hopeless: not at all 3. Trouble falling or staying asleep, or sleeping too much: not at all 4. Feeling tired or having little energy: not at all 5. Poor appetite or overeating: not at all 6. Feeling bad about yourself - or that you are a failure or have let yourself or your family down: not at all 7. Trouble concentrating on things, such as reading the newspaper or watching television: not at all 8. Moving or speaking so slowly that other people could have noticed. Or the opposite - being so fidgety or restless that you have been moving around a lot more than usual: not at all 9. Thoughts that you would be better off or of hurting yourself in some way: not at all Total score: 0 Depression Screening Interpretation: Negative Depression Screening Done: Yes 10647 - PHQ-9 Billing: Yes Source: Developed by Drs. Jeffrey Taylor, Marianne Russo, Radames Marino and colleagues, with an educational puja from [employer]. Thrive Questionnaire Date Thrive assessed: 05/20/23 I am a: Patient What is your living situation today?: I have a steady place to live Within the past 12 months, did the food you bought not last and you didn't have the money to get more?: Never true Within the past 12 months, did you worry whether your food would run out before you got money to buy more?: Never true Do you have trouble paying for medicines?: No Do you have trouble getting transportation to medical appointments?: No Do you have trouble paying your heating and electricity bill?: No Do you have trouble taking care of your child, family member or friend?: No Do you have trouble with day-to-day activities such as bathing, preparing meals, shopping, managing finances, etc.?: No Are you currently unemployed and looking for a job?: No Are you interested in more education?: No Please select the resources that you would like help with: None THRIVE Score: 0 AUDIT C Alcohol Use Questionnaire (AUDIT-C) 1. How often do you have a drink containing alcohol?: 4 or more times a week 2. How many drinks containing alcohol do you have on a typical day when you are drinking?: 1 or 2 3. How often do you have six or more drinks on one occasion?: Never Total Score: 4 Score Reviewed/Action Taken: Yes NEEL-7 AMB Questionnaire NEEL-7 Date NEEL - 7 assessed: 05/20/23 Feeling nervous, anxious, or on edge: 0 = Not at all Not being able to stop or control worryin = Not at all Worrying too much about different things: 0 = Not at all Trouble relaxin = Not at all Being so restless that it is hard to sit still: 0 = Not at all Becoming easily annoyed or irritable: 0 = Not at all Feeling afraid as if something awful might happen: 0 = Not at all Total NEEL-7 score (0-4 normal; 5-9 mild; 10-14 moderate; 15-21 severe): 0 Source: Developed by Drs. Jeffrey Taylor, Marianne Russo, Radames Marino and colleagues, with an educational puja from [employer]. NEEL-7 Assessment Billing NEEL-7 Assessment Tool: NEEL-7 Assessment 18768 Review of Systems Const Denies chills, Denies headache(s) and Denies weight loss ENT Denies headache(s) Card Denies chest pain, Denies syncope, Denies irregular heart rhythm and Denies dyspnea Resp Denies chest congestion, Denies cough and Denies dyspnea GI Denies abdominal pain, Denies change in stool character, Denies nausea and Denies vomiting Musc Denies deformity and Denies joint swelling Neuro Denies syncope and Denies headache(s) Physical exam (Primary Care) Vital Signs: Last Vital Signs Pulse 103 H 05/20/23 13:48 BP 122/78 05/20/23 13:48 Pulse Ox 98 05/20/23 13:48 Oxygen Delivery Method Room Air 05/20/23 13:48 BMI result Body Mass Index 25.4 Tobacco/Smoking Status: Tobacco use Status Tobacco use date assessed 05/20/23 05/20/23 13:50 Patient Tobacco Use Status Never used Tobacco 05/20/23 13:50 e-Cigarette/Vaping Use Never Used 05/20/23 13:50 PHQ-9: PHQ-9 Score PHQ-9: Total score 0 05/20/23 14:00 Depression Screening Interpretation: Negative Thrive Assessment: Date of Thrive Assessment Date Thrive assessed 05/20/23 05/20/23 13:50 Const General: cooperative, comfortable, no acute distress and alert Neck Neck: Yes no lymphadenopathy Thyroid: Thyroid normal Resp Effort & Inspection: normal respiratory effort Auscultation: clear to auscultation bilaterally Percussion: percussion normal Cardio Jugular venous distension: no JVD Palpation: normal PMI Rate: regular rate Rhythm: regular rhythm Heart sounds: S1 normal heart sound present and S2 normal heart sound present GI Inspection: Yes normal to inspection Palpation (GI): No hepatosplenomegaly present Skin General skin exam: no rashes or lesions noted Extrem General: Yes no clubbing, cyanosis or edema Results AMB Hemoglobin A1c AMB Hemoglobin A1c 7.0 % Last Edit by UDAY Al on 05/20/23 14:03 Results Reviewed Results Reviewed: Laboratory Last Values Hgb A1c (Clinic) 7.0 % (4.0-6.0) H 05/20/23 13:51 Assessment and Plan Assessment & Plan (1) Diabetes mellitus with coincident hypertension: Code(s): E11.9 - Type 2 diabetes mellitus without complications; I10 - Essential (primary) hypertension Plan: stable; same rx (2) Hyperlipidemia: Code(s): E78.5 - Hyperlipidemia, unspecified Plan: stable; same rx (3) Hypertension: Code(s): I10 - Essential (primary) hypertension Plan: stable; same rx Orders: Orders AMB Hemoglobin A1c 05/20/23 E11.9 - Type 2 diabetes mellitus without complications Lipid Panel Today E78.5 - Hyperlipidemia, unspecified Hemoglobin A1c Today R73.9 - Hyperglycemia, unspecified Comprehensive [place]. Panel Fast Today N28.9 - Disorder of kidney and ureter, unspecified Complete Blood Count Auto Diff Today D64.9 - Anemia, unspecified Coding Level of Care Code Est Pt Level 4 (45200) Diagnoses Diabetes mellitus with coincident hypertension E11.9; I10 Hyperlipidemia E78.5 Hypertension I10 Additional Codes NEEL-7 Assessment Billing - NEEL-7 Assessment Tool: NEEL-7 Assessment [id number] ([id number])
== END 2023-05-20 14:16 | disposition home or self-care (01) ==
PROVIDERS: PCP Internal Medicine; Visit Provider Internal Medicine
DX: E11.65 Type 2 diabetes mellitus with hyperglycemia (principal); I10 Essential (primary) hypertension; E78.5 Hyperlipidemia, unspecified
CPT/HCPCS: 83036; 99214

== ENCOUNTER 2023-06-14 04:53 | Emergency (ER) | payer MEDICARE, OTHER, SELFPAY ==
--- NOTE | ~2023-06-14 | XR_ITS ---
EXAMINATION: XR CHEST 5:32 AM CLINICAL INFORMATION: Fall, rule out pneumonia COMPARISON: 05/30/2018. TECHNIQUE: Frontal view of the chest was obtained. FINDINGS: On this AP portable radiograph, the lungs are grossly clear. Pleural calcifications are again evident at the right base. The cardiomediastinal silhouette is stable. XR/XR chest 1V IMPRESSION: No acute disease or significant interval change.
--- NOTE | ~2023-06-14 | CT_ITS ---
EXAMINATION: CT ANGIOGRAM OF THE CHEST WITH AND WITHOUT CONTRAST (CT PULMONARY ANGIOGRAM FOR PE) CLINICAL INFORMATION: Reason for Exam shortness of breath, tachycardia COMPARISON: None available. TECHNIQUE: Prior to contrast administration, noncontrast localization images were obtained. Subsequently, multidetector volumetric imaging was performed from the thoracic inlet to below the diaphragms following the administration of 65 mL Omnipaque 350 intravenous contrast. No contrast reaction reported Sagittal, coronal, and MIP oblique sagittal reformatted images were obtained on the CT workstation, uploaded to PACS, and reviewed. This CT examination was performed using dose optimization techniques as appropriate, variously including the following: *Automated exposure control *Adjustment of mA and/or kV according to patient size (this includes techniques or standardized protocols for targeted exams where dose is matched to indication/reason for exam; i.e. extremities or head) *Use of iterative reconstruction technique Total exam dose-length product 266 mGy-cm FINDINGS: QUALITY OF STUDY/CONTRAST BOLUS: Satisfactory. PULMONARY ARTERIES: No pulmonary emboli. THORACIC AORTA: No aneurysm. LUNG: No focal consolidation or suspicious pulmonary nodule. PLEURA: Moderate bilateral pleural effusions. 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 MEDIASTINUM: Heart is enlarged. Small pericardial effusion. No bulky hilar or mediastinal lymphadenopathy. No evidence of septal bowing or right heart strain. CORONARY ARTERY CALCIFICATION: Moderate. CHEST WALL/AXILLA: No axillary or internal mammary lymphadenopathy. OSSEOUS STRUCTURES: No destructive bone lesions. UPPER ABDOMEN: Gallstone. No reflux of contrast into the hepatic veins to suggest elevated right heart pressures. CT/CT angio chest PE protocol IMPRESSION: No evidence of pulmonary embolus. Moderate bilateral pleural effusions. Small pericardial effusion. VTE: negative
--- NOTE | ~2023-06-14 | CT_ITS ---
EXAMINATION: CT HEAD WITHOUT CONTRAST CT CERVICAL SPINE WITHOUT CONTRAST CLINICAL INFORMATION: Multiple falls. Pain. COMPARISON: 05/30/2018. TECHNIQUE: Contiguous axial imaging was performed through the head and cervical spine without intravenous administration of contrast. Sagittal and coronal reformatted images also obtained This CT examination was performed using dose optimization techniques as appropriate, variously including the following: *Automated exposure control *Adjustment of mA and/or kV according to patient size (this includes techniques or standardized protocols for targeted exams where dose is matched to indication/reason for exam; i.e. extremities or head) *Use of iterative reconstruction technique DLP: 1005 mGy-cm FINDINGS: There is cerebral volume loss with prominence of the lateral and the third ventricles. The cortical sulci are widened appropriately. The fourth ventricle and basal cisterns are normally outlined. There is moderate bilateral periventricular and central white matter diminished attenuation with similar change within the brainstem. There is no acute territorial defect, hemorrhage or midline shift. A right frontoparietal mildly hyperdense extra-axial mass is again seen measuring up to 3.6 cm previously measuring up to 2.9 cm with mild local mass effect. Calvarium: Intact. Maxillofacial sinuses and mastoids: Clear as visualized. Cervical spine: The alignment is within normal limits. There is diffuse yvve-gf-ttqcmnhz cervical disc degenerative change with loss of disc space, endplate change and posterior osteophytes associated with diffuse moderate facet osteoarthritic hypertrophic change with multilevel mild spinal canal and multilevel tekn-er-qcjhrugs neuroforaminal narrowing. No fracture is seen. The soft tissues are unremarkable. There are partially imaged upper lung field pleural effusions. CT/CT head/brain wo IV con IMPRESSION: HEAD: 1. No acute intracranial pathology. 2. Mild interval increase in size of right frontoparietal extra-axial mass likely representing a meningioma. CERVICAL SPINE: 1. No acute osseous abnormality. 2. Diffuse skua-dr-yyweglnh cervical spondylosis. 3. Partially imaged pleural effusions.
--- NOTE | ~2023-06-14 | CT_ITS ---
EXAMINATION: CT HEAD WITHOUT CONTRAST CT CERVICAL SPINE WITHOUT CONTRAST CLINICAL INFORMATION: Multiple falls. Pain. COMPARISON: 05/30/2018. TECHNIQUE: Contiguous axial imaging was performed through the head and cervical spine without intravenous administration of contrast. Sagittal and coronal reformatted images also obtained This CT examination was performed using dose optimization techniques as appropriate, variously including the following: *Automated exposure control *Adjustment of mA and/or kV according to patient size (this includes techniques or standardized protocols for targeted exams where dose is matched to indication/reason for exam; i.e. extremities or head) *Use of iterative reconstruction technique DLP: 1005 mGy-cm FINDINGS: There is cerebral volume loss with prominence of the lateral and the third ventricles. The cortical sulci are widened appropriately. The fourth ventricle and basal cisterns are normally outlined. There is moderate bilateral periventricular and central white matter diminished attenuation with similar change within the brainstem. There is no acute territorial defect, hemorrhage or midline shift. A right frontoparietal mildly hyperdense extra-axial mass is again seen measuring up to 3.6 cm previously measuring up to 2.9 cm with mild local mass effect. Calvarium: Intact. Maxillofacial sinuses and mastoids: Clear as visualized. Cervical spine: The alignment is within normal limits. There is diffuse hpup-yf-ripwowur cervical disc degenerative change with loss of disc space, endplate change and posterior osteophytes associated with diffuse moderate facet osteoarthritic hypertrophic change with multilevel mild spinal canal and multilevel pcfj-ek-pdoxbybk neuroforaminal narrowing. No fracture is seen. The soft tissues are unremarkable. There are partially imaged upper lung field pleural effusions. CT/CT cervical spine wo IV con IMPRESSION: HEAD: 1. No acute intracranial pathology. 2. Mild interval increase in size of right frontoparietal extra-axial mass likely representing a meningioma. CERVICAL SPINE: 1. No acute osseous abnormality. 2. Diffuse qytc-ta-ovmqbmks cervical spondylosis. 3. Partially imaged pleural effusions.
[2023-06-14 05:03] VITALS: BP 138/87; PULSE 106; RESP 22; TEMP 36.6; O2SAT 94; BMI 25.5
--- NOTE | 2023-06-14 05:11 | ECG_ITS ---
Test Reason : SOB Blood Pressure : / mmHG Vent. Rate : 099 BPM Atrial Rate : 099 BPM P-R Int : 166 ms QRS Dur : 114 ms QT Int : 368 ms P-R-T Axes : 049 -46 082 degrees QTc Int : 472 ms Normal sinus rhythm Left axis deviation Nonspecific T wave abnormality Prolonged QT Abnormal ECG When compared with ECG of 07-NOV-2022 06:59, Nonspecific T wave abnormality, worse in Anterolateral leads Referred By: Amara Pierce Electronically Signed By:BRITTANY PARKER MD
--- NOTE | 2023-06-14 05:23 | ED_ITS ---
HPI - Fall General Chief Complaint: Fall Stated Complaint: sob and back pain Time Seen by Provider: 06/14/23 05:10 Source: patient and EMS Limitations: no limitations History of Present Illness HPI Narrative: Patient comes to the emergency room complaining of back pain. Patient states that 4 days ago he was at home, tripped over a case of water, landed backwards. Patient states that he did hit his head, did not lose consciousness, patient is not on blood thinners. Patient was able to get up by himself. Over the last 4 days, the pain in the upper bags has been getting a bit worse. Patient states he has no rib pain. Denies any neck pain. No headache. Patient lives with his grandson. Related Data Previous Rx's Medication Instructions Recorded ibuprofen 800 mg tablet 800 mg PO Q6H PRN pain #20 tabs 06/08/21 acetaminophen 500 mg tablet 1,000 mg (2 x 500 mg) PO Q6H PRN 06/09/21 fever or pain #20 tabs blood sugar diagnostic (FreeStyle #100 ea 04/02/22 Lite Strips) blood-glucose meter (Accu-Chek #1 ea 05/24/22 Guide Glucose Meter) blood-glucose meter (FreeStyle #1 ea 06/09/22 Lite Meter kit) lisinopril 20 mg tablet 20 mg PO DAILY #90 tabs 08/13/22 glyburide 2.5 mg tablet 2.5 mg PO BID #60 tabs 05/10/23 metformin 500 mg tablet 1,000 mg (2 x 500 mg) PO BID 30 05/23/23 days #120 tabs simvastatin 20 mg tablet 20 mg PO DAILY #90 tabs 05/23/23 Allergies Allergy/AdvReac Type Severity Reaction Status Date / Time No Known Allergies Allergy Verified 06/14/23 05:06 [No Known Allergies*] Review of Systems 2 Review of Systems: Constitutional : No Weight loss, No Fever, No Chills, No Night Sweats, No Fatigue, No Malaise ENT/Mouth : No Hearing loss, No Ear Pain, No Nasal Congestion, No Sinus Pain, No Hoarseness, No sore throat, No Rhinorrhea, No Swallowing Difficulty Eyes: No Eye Pain, No Swelling, No Redness, No Foreign Body, No Discharge, No Vision Changes Cardiovascular : No Chest Pain, No SOB, No Dyspnea on Exertion, No Orthopnea, No Edema, No Palpitations Respiratory : No Cough, No Sputum, No Wheezing, No Smoke Exposure, No Dyspnea Gastrointestinal : No Nausea, No Vomiting, No Diarrhea, No Constipation, No abdominal Pain, No Hematochezia, No Melena Genitourinary : no irregular bleeding, No Dysuria, No Urinary Frequency, No Hematuria, No Urinary Incontinence, No Urgency, No Flank Pain, No Urinary Flow Changes, No Hesitancy Musculoskeletal : Complaining of fall, complaining of right upper back pain on the right No joint pain, No Myalgias, No Joint Swelling Skin : No Skin Lesions, No rash Neuro : No Weakness, No Numbness, No Paresthesias, No Loss of Consciousness, No Dizziness, No Headache Psych : No Anxiety/Panic, No Depression, No SI/HI/AH/VH, No Social Issues, Heme/Lymph: No Bruising, No Bleeding,No Lymphadenopathy Endocrine : No Polyuria, No Polydipsia, No Temperature Intolerance [facility] Past Medical History Medical History (Updated 06/14/23 @ 07:13 by Amara Pierce MD) Hyperlipidemia Alcohol abuse Diabetes mellitus Hypertension Surgical History History of hernia repair Family History Family History Father Liver problem Mother Past heart attack Brother Cancer Sister Cancer Social History Social History Housing: House Alcohol intake: current Alcohol intake frequency: does not drink Alcohol type: beer Patient Tobacco Use Status: Never used Tobacco e-Cigarette/Vaping Use: Never Used Second Hand Smoke Exposure: No service: Yes Current occupational status: retired Cognitive needs: No Hearing needs: No Vision needs: Yes (reading glasses) Physical Exam 2 Vital Signs: Vital Signs: Last Vital Signs Temp 97.8 F 06/14/23 05:03 Pulse 106 H 06/14/23 05:03 Resp 22 H 06/14/23 05:03 BP 138/87 06/14/23 05:03 Pulse Ox 94 06/14/23 05:03 O2 Del Method Room Air 06/14/23 05:03 BMI result Body Mass Index 25.5 Const: Other: Appearance: Alert. Oriented X3. No acute distress. Eyes: Pupils equal, round and reactive to light. ENT: Pharynx normal. Neck: Normal inspection. Neck supple. No lymph nodes noted. No crepitus CVS: Normal heart rate and rhythm. Pulses normal. Normal S1 and S2 Respiratory: No respiratory distress. Breath sounds normal. No Wheezing. No rales Abdomen: Soft and nontender. No rigidity. No distention. Back: Pain to palpation over the suprascapular area on the right. No C- spine/lumbar/thoracic spine tenderness Skin: Skin warm and dry. Normal skin color. Normal skin turgor. Extremities: No lower extremity edema. No Lacerations. No Rash Neuro: Oriented X 3. No motor deficit. No sensory deficit. Moving all extremities. No slurred speech. CN 2 through 12 grossly intact Psych: calm, cooperative, normal affect Course Course Course Narrative: -all of patient's labs and imaging pending Medical Decision Making Medical Decision Making [facility] Narrative: -my interpretation of head CT: No acute intracranial bleed. My interpretation of chest x-ray: There is a small right pleural effusion -my interpretation of labs: Normal hematology, chemistry : Normal electrolytes, normal LFTs, BNP 607. No previous BNP for comparison. Patient's oxygen saturation is 95% on room air. -radiology reports a partial pleural effusion. Patient's BNP elevated, given IV 40 mg Lasix. Ambulation trial pending. Patient does not have history of CHF -sign-out was given to my colleague Dr. Church Differential Diagnosis Differential Diagnoses: The differential diagnosis associated with the presentation includes (Intracranial bleed, contusion, contusion, pneumonia, CHF) Admission/Observation Consideration of admission/observation: Escalation of care including admission/observation considered (Here in patients radiology findings and labs, patient considered) Lab Data [facility] Lab Attestation statement: I reviewed the patient's lab results. 06/14/23 05:25 06/14/23 05:25 Labs: Lab Results 06/14/23 06/14/23 06/14/23 Range/Units 05:25 05:26 05:32 WBC 7.8 (4.8-10.8) X10*3/uL RBC 4.09 L (4.60-5.80) X10*6/uL Hgb 12.1 L (14.0-18.0) g/dl Hct 36.5 L (42.0-52.0) % MCV 89.2 (80.0-98.0) fL MCH 29.6 (27.0-33.0) pg MCHC 33.2 (31.0-36.0) g/dl RDW 13.3 (11.0-16.0) % Plt Count 287 (160-400) X10*3/uL MPV 9.7 (9.4-12.4) fL Immature Gran % (Auto) 0.3 (0.0-0.4) % Neut % (Auto) 76.2 H (45-73) % Lymph % (Auto) 15.1 L (20-40) % Mitchell % (Auto) 6.6 (2-11) % Eos % (Auto) 1.3 (0-4) % Baso % (Auto) 0.5 (0-2) % Lymph # (Auto) 1.2 (1.2-4.9) X10*3/uL Mitchell # (Auto) 0.5 (0.1-1.2) X10*3/uL Eos # (Auto) 0.1 (0.0-0.4) X10*3/uL Baso # (Auto) 0.0 (0.0-0.2) X10*3/uL Abs Immat Gran (auto) 0.02 (0.00-0.03) X10*3/uL Absolute Neuts (auto) 5.9 (2.0-8.3) x10*3/uL Absolute Nucleated RBC 0.000 (0.0-0.012) X10*3/uL Nucleated RBC % (auto) 0.0 (0.0-0.2) /100WBC PT 12.5 (11.1-13.3) SEC INR 1.0 (0.9-1.1) VBG pH 7.43 (7.32-7.43) VBG pCO2 29 mmHg VBG pO2 74 mmHg VBG HCO3 19 L (22-26) mmol/L VBG O2 Saturation 95.0 % VBG Base Excess -3.4 mmol/L Sodium 138 (135-145) mmol/L Potassium 4.1 (3.3-5.1) mmol/L Chloride 107 (96-108) mmol/L Carbon Dioxide 20 L (22-29) mmol/L Anion Gap 15 (12-20) BUN 17 H (9-16) mg/dL Creatinine 0.98 (0.5-1.4) mg/dL Estim Creat Clear Calc 58.2 Estimated GFR > 60 Random Glucose 164 H (60-115) mg/dL Lactic Acid 1.4 (0.5-2.0) mmol/L Calcium 9.5 (8.4-10.2) mg/dL Magnesium 1.8 (1.6-2.6) mg/dL Total Bilirubin 1.0 (0.0-1.0) mg/dL Direct Bilirubin 0.4 (0.0-0.5) mg/dL AST 14 (5-37) U/L ALT 13 (0-40) U/L Alkaline Phosphatase 61 (39-117) U/L B-Natriuretic Peptide 607 H (<100) pg/mL Total Protein 7.5 (6.5-8.0) g/dL Albumin 4.2 (3.5-5.0) g/dL Ethyl Alcohol < 10 mg/dL Influenza Type A (PCR) NEGATIVE (Negative) Influenza Type B (PCR) NEGATIVE (Negative) RSV RNA Qual (PCR) NEGATIVE (Negative) SARS-CoV-2 RNA (RT-PCR) NEGATIVE (Negative) Independent Interpretation I performed an independent interpretation of an: CT Scan Radiology Impression Discussion of test interpretation with radiology: I have reviewed the radiologist's reading. Radiologist Impression: FINDINGS: There is cerebral volume loss with prominence of the lateral and the third ventricles. The cortical sulci are widened appropriately. The fourth ventricle and basal cisterns are normally outlined. There is moderate bilateral periventricular and central white matter diminished attenuation with similar change within the brainstem. There is no acute territorial defect, hemorrhage or midline shift. A right frontoparietal mildly hyperdense extra-axial mass is again seen measuring up to 3.6 cm previously measuring up to 2.9 cm with mild local mass effect. Calvarium: Intact. Maxillofacial sinuses and mastoids: Clear as visualized. Cervical spine: The alignment is within normal limits. There is diffuse oovg-ry-uaxikovm cervical disc degenerative change with loss of disc space, endplate change and posterior osteophytes associated with diffuse moderate facet osteoarthritic hypertrophic change with multilevel mild spinal canal and multilevel okyw-og-lpygivqz neuroforaminal narrowing. No fracture is seen. The soft tissues are unremarkable. There are partially imaged upper lung field pleural effusions. CT/CT head/brain wo IV con IMPRESSION: HEAD: 1. No acute intracranial pathology. 2. Mild interval increase in size of right frontoparietal extra-axial mass likely representing a meningioma. CERVICAL SPINE: 1. No acute osseous abnormality. 2. Diffuse ytwd-bt-wovgguid cervical spondylosis. 3. Partially imaged pleural effusions. Independent Historian Clinical information obtained from an independent historian. History obtained from or confirmed by: EMS Critical Care Time Critical Care Time Critical Care Time: Yes Total Critical Care Time: 60 Attestation: I have personally provided critical care time. Time includes review of lab data, radiology results, discussion with consultants, and monitoring for potential decompensation. Intervention performed as documented. Discharge Plan Discharge Clinical Impression: Fall, Pleural effusion Patient Disposition: Admitted As Inpatient Instructions: Pleural Effusion (ED), Fall Prevention (ED) Prescriptions: No Action ibuprofen 800 mg tablet 800 mg PO Q6H PRN (Reason: pain) Qty: 20 0RF acetaminophen 500 mg tablet 1,000 mg PO Q6H PRN (Reason: fever or pain) Qty: 20 0RF (DME) FreeStyle Lite Strips Strip See Rx Instructions .Route Qty: 100 8RF Rx Instructions: to check blood sugars once a day (DME) blood-glucose meter [Accu-Chek Guide Glucose Meter] Misc See Rx Instructions .Route Qty: 1 0RF Rx Instructions: As directed (DME) blood-glucose meter [FreeStyle Lite Meter] Kit See Rx Instructions .ROUTE .COMPLEX Qty: 1 0RF Dose Instruction: USE DIRECTED Rx Instructions: USE DIRECTED glyburide 2.5 mg tablet 2.5 mg PO BID Qty: 60 4RF simvastatin 20 mg tablet 20 mg PO DAILY Qty: 90 0RF metformin 500 mg tablet 1,000 mg PO BID 30 Days Qty: 120 0RF lisinopril 20 mg tablet 20 mg PO DAILY Qty: 90 4RF
[2023-06-14 05:32] LABS: Basophils Percent Auto 0.5 % (0-2); Eosinophils Absolute Auto 0.1 X10*3/uL (0.0-0.4); Eosinophils Percent Auto 1.3 % (0-4); Hematocrit 36.5 % (42.0-52.0); Hemoglobin 12.1 g/dl (14.0-18.0); Imm Gran Abs Auto 0.02 X10*3/uL (0.00-0.03); Imm Gran Pct Auto 0.3 % (0.0-0.4); Lymphocytes Absolute Auto 1.2 X10*3/uL (1.2-4.9); Lymphocytes Percent Auto 15.1 % (20-40); MANUAL DIFF FLAG NO; Mean Corpuscular HGB Conc 33.2 g/dl (31.0-36.0); Mean Corpuscular Hemoglobin 29.6 pg (27.0-33.0); Mean Corpuscular Volume 89.2 fL (80.0-98.0); Mean Platelet Volume 9.7 fL (9.4-12.4); Monocytes Absolute Auto 0.5 X10*3/uL (0.1-1.2); Monocytes Percent Auto 6.6 % (2-11); Neutrophils Absolute Auto 5.9 x10*3/uL (2.0-8.3); Neutrophils Percent Auto 76.2 % (45-73); Platelet Count 287 X10*3/uL (160-400); Red Blood Count 4.09 X10*6/uL (4.60-5.80); Red Cell Distribution Width 13.3 % (11.0-16.0); White Blood Count 7.8 X10*3/uL (4.8-10.8)
[2023-06-14 05:38] LABS: Venous Blood Gas Refer to POC result
[2023-06-14 05:39] LABS: VBG Base Excess -3.4 mmol/L; VBG HCO3 19 mmol/L (22-26); VBG pCO2 29 mmHg; VBG pH 7.43 (7.32-7.43); VBG pO2 74 mmHg
[2023-06-14 05:45] LABS: Prothrombin Time 12.5 SEC (11.1-13.3)
[2023-06-14 05:48] LABS: Lactic Acid 1.4 mmol/L (0.5-2.0)
[2023-06-14 05:52] LABS: Ethanol < 10 mg/dL
[2023-06-14 05:54] LABS: Alanine Aminotransferase 13 U/L (0-40); Albumin Level 4.2 g/dL (3.5-5.0); Alkaline Phosphatase 61 U/L (39-117); Anion Gap 15 (12-20); Aspartate Amino Transferase 14 U/L (5-37); Bilirubin Direct 0.4 mg/dL (0.0-0.5); Blood Urea Nitrogen 17 mg/dL (9-16); Calcium 9.5 mg/dL (8.4-10.2); Carbon Dioxide 20 mmol/L (22-29); Chloride 107 mmol/L (96-108); Creatinine Clr Calc Pharmacy 58.2; Estimated Glomerular Filt Rate > 60; Glucose Random 164 mg/dL (60-115); Magnesium 1.8 mg/dL (1.6-2.6); Potassium 4.1 mmol/L (3.3-5.1); Sodium 138 mmol/L (135-145); Total Protein 7.5 g/dL (6.5-8.0)
[2023-06-14 05:58] LABS: B Type Natriuretic Peptide 607 pg/mL (<100)
[2023-06-14 06:13] LABS: Influenza A PCR NEGATIVE (Negative); Influenza B PCR NEGATIVE (Negative); Resp Syncy Virus RNA Qual PCR NEGATIVE (Negative); SARS COV2 PCR INHOUSE NEGATIVE (Negative)
[2023-06-14 07:29] VITALS: BP 124/85; PULSE 105; RESP 18; O2SAT 96
[2023-06-14] MEDS: Furosemide 40 MG/4 ML VIAL IVPUSH (07:30)
--- NOTE | 2023-06-14 07:51 | MHC.EDTECH ---
pt was ambulating with a steady gait around ED with O2 stat reading between 92%-96%. No complaints stated, pt now comfortable eating in bed, RN aware
--- NOTE | 2023-06-14 08:08 | PC.NURSE ---
Resumed care of patient, he is currently a/ox4, lasix given per JUN, pt walked around unit, tolerated well. Pt reporting pain in right shoulder. Awaiting dispo/radiology at this time
[2023-06-14 08:32] LABS: Appearance Urine Clear; Color Urine Yellow; Glucose Urine UA 250 mg/dL (Negative); Leukocyte Esterase Urine Negative (Negative); Nitrite Urine Negative (Negative); Urine Blood Negative (Negative); Urine Ketones Trace mg/dL (Negative); Urine Protein Negative (Neg-Trace)
[2023-06-14 08:36] LABS: C Reactive Protein 0.27 mg/dL (< or = 0.50)
[2023-06-14 08:53] LABS: Amphetamine Screen Urine Not Detected (Not Detect); Barbiturates, Urine Not Detected (Not Detect); Benzodiazepines Screen Urine Not Detected (Not Detect); Cannabinoid Screen Urine Not Detected (Not Detect); Cocaine Screen Urine Not Detected (Not Detect); Fentanyl, urine Not Detected (Not Detect); Opiate Screen Urine Not Detected (Not Detect); Phencyclidine Screen Urine Not Detected (Not Detect)
[2023-06-14 09:22] LABS: D Dimer High Sensitivity 274 NG/ML
[2023-06-14 10:12] LABS: Troponin-I High Sensitivity 22.3 ng/L (<3.5-35.0)
[2023-06-14] MEDS: iohexoL 350 MG/ML 100 ML INFUS..BTL IV (10:46)
[2023-06-14 10:55] VITALS: BP 123/79; PULSE 100; RESP 17; TEMP 36.6; O2SAT 97
[2023-06-14 12:36] VITALS: BP 124/72; PULSE 98; RESP 13; TEMP 36.5; O2SAT 96
== END 2023-06-14 13:31 | disposition home or self-care (01) ==
PROVIDERS: Emergency Medicine; Emergency Provider Emergency Medicine; PCP Internal Medicine
DX: J90 Pleural effusion, not elsewhere classified (principal); I31.39 Other pericardial effusion (noninflammatory); Z91.81 History of falling; R06.02 Shortness of breath; Z11.52 Encounter for screening for COVID-19; Z20.828 Contact with and (suspected) exposure to other viral communicable diseases; E11.9 Type 2 diabetes mellitus without complications; I10 Essential (primary) hypertension; E78.5 Hyperlipidemia, unspecified; Z79.899 Other long term (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; Z79.84 Long term (current) use of oral hypoglycemic drugs; Z79.02 Long term (current) use of antithrombotics/antiplatelets
CPT/HCPCS: 0241U; 36415; 70450; 71045; 71275; 72125; 80048; 80076; 80307; 81003; 82803; 83605; 83735; 83880; 84484; 85025; 85379; 85610; 86140; 87040; 93005; 96374; 99283; 99285; J1940; Q9967

== ENCOUNTER → 2023-06-14 05:11 | Outpatient (BNV) | payer MEDICARE, OTHER, SELFPAY | PROVIDERS: Emergency Provider Emergency Medicine; PCP Internal Medicine; Visit Provider Internal Medicine Cardiovascular Disease | DX: R06.02 Shortness of breath (principal) | CPT/HCPCS: 93010 ==

== ENCOUNTER 2023-06-17 09:31 | Outpatient (AMB) | payer MEDICARE, OTHER, SELFPAY ==
[2023-06-17 09:33] VITALS: BP 110/60; PULSE 120; O2SAT 96; BMI 24.4
--- NOTE | 2023-06-17 09:33 | MHC.PC.OV ---
Vital Signs 06/17/23 09:33 Height 6 ft Weight 180 lb BMI 24.4 BP 110/60 Blood Pressure Location Lt brachial Position Sitting Pulse 120 H Pulse Source Pulse Oximeter Pulse Oximetry (%) 96 Oxygen Delivery Method Room Air Intake Visit Reasons: Fell pain in right shoulder/needsXray Manager Of Applications Development Required: No Landscape Painter: Not Required per policy Accompanied by: Self / Same As Patient Allergies No Known Allergies [No Known Allergies*] Allergy (Verified 06/17/23 09:34) Medication List - Last Reconciled 06/17/23 by Dimitri Wilson MD acetaminophen 1,000 mg (2 x 500 mg) PO Q6H PRN blood sugar diagnostic (FreeStyle Lite Strips) to check blood sugars once a day blood-glucose meter (FreeStyle Lite Meter kit) USE DIRECTED blood-glucose meter (Accu-Chek Guide Glucose Meter) As directed furosemide 20 mg PO DAILY glyburide 2.5 mg PO BID ibuprofen 800 mg PO Q6H PRN lisinopril 20 mg PO DAILY metformin 1,000 mg (2 x 500 mg) PO BID 30 days simvastatin 20 mg PO DAILY Tobacco use date assessed: 05/20/23 Fall risk assessment: 1 Fall in past year Last assessed Fall Risk: 06/17/23 Dental Screening Dental Screen Date: 06/17/23 Did you have a dental visit in the last 12 months?: No Did you have a dental problem in the last 6 months where you did not have access to dental care?: Yes Was dental information given to patient?: Patient has dentist HPI Fell pain in right shoulder/needsXray HPI Details fell and injured right shoulder a week ago PFSH Medical History (Updated 06/17/23 @ 09:58 by Dimitri Wilson MD) Hyperlipidemia Alcohol abuse Diabetes mellitus Hypertension Surgical History History of hernia repair Family History Father Liver problem Mother Past heart attack Brother Cancer Sister Cancer Social History Housing: House Alcohol intake: current Alcohol intake frequency: does not drink Alcohol type: beer Patient Tobacco Use Status: Never used Tobacco e-Cigarette/Vaping Use: Never Used Second Hand Smoke Exposure: No service: Yes Current occupational status: retired Cognitive needs: No Hearing needs: No Vision needs: Yes (reading glasses) Questionnaire Thrive Questionnaire Date Thrive assessed: 05/20/23 NEEL-7 AMB Questionnaire NEEL-7 Date NEEL - 7 assessed: 05/20/23 Source: Developed by Drs. Jeffrey Taylor, Marianne Russo, Radames Marino and colleagues, with an educational puja from [employer]. Review of Systems Const Denies chills, Denies headache(s) and Denies weight loss ENT Denies headache(s) Card Denies chest pain, Denies syncope, Denies irregular heart rhythm and Denies dyspnea Resp Denies chest congestion, Denies cough and Denies dyspnea GI Denies abdominal pain, Denies change in stool character, Denies nausea and Denies vomiting Musc Denies deformity and Denies joint swelling Neuro Denies syncope and Denies headache(s) Physical exam (Primary Care) Vital Signs: Last Vital Signs Pulse 120 H 06/17/23 09:33 BP 110/60 06/17/23 09:33 Pulse Ox 96 06/17/23 09:33 Oxygen Delivery Method Room Air 06/17/23 09:33 BMI result Body Mass Index 24.4 Tobacco/Smoking Status: Tobacco use Status Tobacco use date assessed 05/20/23 06/17/23 09:34 Patient Tobacco Use Status Never used Tobacco 06/17/23 09:34 e-Cigarette/Vaping Use Never Used 06/17/23 09:34 Thrive Assessment: Date of Thrive Assessment Date Thrive assessed 05/20/23 06/17/23 09:34 Const General: cooperative, comfortable, no acute distress and alert Neck Neck: Yes no lymphadenopathy Thyroid: Thyroid normal Resp Effort & Inspection: normal respiratory effort Auscultation: clear to auscultation bilaterally Percussion: percussion normal Cardio Jugular venous distension: no JVD Palpation: normal PMI Rate: regular rate Rhythm: regular rhythm Heart sounds: S1 normal heart sound present and S2 normal heart sound present GI Inspection: Yes normal to inspection Palpation (GI): No hepatosplenomegaly present Skin General skin exam: no rashes or lesions noted Extrem General: Yes no clubbing, cyanosis or edema Assessment and Plan Assessment & Plan (1) Right shoulder pain: Code(s): M25.511 - Pain in right shoulder Plan: xr ordered Orders: Orders XR shoulder RT min 2V Today M25.519 - Pain in unspecified shoulder PT Evaluation and Treatment Today M25.511 - Pain in right shoulder Coding Level of Care Code Est Pt Level 3 (13166) Diagnoses Right shoulder pain M25.511
== END 2023-06-17 10:04 | disposition home or self-care (01) ==
PROVIDERS: PCP Internal Medicine; Visit Provider Internal Medicine
DX: M25.511 Pain in right shoulder (principal)
CPT/HCPCS: 99213

== ENCOUNTER 2023-06-17 10:42 | Outpatient (REF) | payer MEDICARE, OTHER, SELFPAY ==
--- NOTE | ~2023-06-17 | XR_ITS ---
EXAMINATION: XR SHOULDER, RIGHT CLINICAL INFORMATION: Pain and unspecified shoulder. COMPARISON: None available. TECHNIQUE: 4 views of the right shoulder. 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 Moderate degenerative changes with hypertrophic change along the glenoid. 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
== END 2023-06-17 10:43 | disposition home or self-care (01) ==
LOC: HO.XRAY 10:42
PROVIDERS: PCP Internal Medicine; Visit Provider Internal Medicine
DX: M25.511 Pain in right shoulder (principal)
CPT/HCPCS: 73030

== ENCOUNTER 2023-06-20 16:24 | Emergency (ER) | payer MEDICARE, OTHER, SELFPAY ==
[2023-06-20 16:40] VITALS: BP 126/79; PULSE 103; RESP 18; O2SAT 96; BMI 24.4
--- NOTE | 2023-06-20 16:40 | ED.GENADULT ---
HPI - General Adult General Chief complaint: Urogenital-Male Stated complaint: unable to void since yesterday, horrible pain Time Seen by Provider: 06/20/23 19:24 Source: patient Mode of arrival: ambulatory Limitations: no limitations History of Present Illness HPI narrative: Patient is an 88-year-old male who presents emergency department for evaluation of urinary frequency/urgency. Reports difficulty voiding, and dysuria. He is voiding small amounts at a time. Has an appointment his primary care provider tomorrow but presented today due to his dysuria. He denies fevers, chills, nausea, vomiting, abdominal pain, flank pain. Denies any recent urinary tract infection or urogenital instrumentation. Related Data Previous Rx's Medication Instructions Recorded ibuprofen 800 mg tablet 800 mg PO Q6H PRN pain #20 tabs 06/08/21 acetaminophen 500 mg tablet 1,000 mg (2 x 500 mg) PO Q6H PRN 06/09/21 fever or pain #20 tabs blood sugar diagnostic (FreeStyle #100 ea 04/02/22 Lite Strips) blood-glucose meter (Accu-Chek #1 ea 05/24/22 Guide Glucose Meter) blood-glucose meter (FreeStyle #1 ea 06/09/22 Lite Meter kit) lisinopril 20 mg tablet 20 mg PO DAILY #90 tabs 08/13/22 glyburide 2.5 mg tablet 2.5 mg PO BID #60 tabs 05/10/23 metformin 500 mg tablet 1,000 mg (2 x 500 mg) PO BID 30 05/23/23 days #120 tabs simvastatin 20 mg tablet 20 mg PO DAILY #90 tabs 05/23/23 furosemide 20 mg tablet 20 mg PO DAILY #30 tabs 06/14/23 cefuroxime axetil 250 mg tablet 250 mg PO BID #20 tabs 06/20/23 Allergies Allergy/AdvReac Type Severity Reaction Status Date / Time No Known Allergies Allergy Verified 06/17/23 09:34 [No Known Allergies*] Review of Systems Review of Systems: Yes all other systems are reviewed and are negative [facility] Past Medical History Attestation statement: The following information was validated with the patient. Source: old records reviewed Medical History Hyperlipidemia Alcohol abuse Diabetes mellitus Hypertension Surgical History History of hernia repair Family History Family History Father Liver problem Mother Past heart attack Brother Cancer Sister Cancer Social History Social History Housing: House Alcohol intake: current Alcohol intake frequency: does not drink Alcohol type: beer Patient Tobacco Use Status: Never used Tobacco e-Cigarette/Vaping Use: Never Used Second Hand Smoke Exposure: No Advance Directives: No Advance Directives Information Provided: No service: Yes Current occupational status: retired Cognitive needs: No Hearing needs: No Vision needs: Yes (reading glasses) Physical Exam ED Vital Signs: Vital Signs - 24 hr 06/20/23 16:40 06/20/23 19:43 Temperature 98.6 F Pulse Rate 103 H 96 Respiratory Rate 18 18 Blood Pressure 126/79 128/84 Pulse Oximetry 96 97 Oxygen Delivery Method Room Air Room Air BMI result Body Mass Index 24.4 Appearance: Alert.?Oriented to person, place and time. No acute distress.?Normal affect. Eyes: Pupils equal, round and reactive to light.? ENT: Pharynx normal.?? Neck: Normal inspection.? Neck supple.?? CVS: Heart sounds normal. Normal heart rate and rhythm.? Pulses normal.?? Respiratory: No respiratory distress.? Lung sounds clear to auscultation bilaterally?? Abdomen: Soft and non-tender. Normoactive bowel sounds. No CVA tenderness. No pulsatile mass.?? Skin: Skin warm and dry.? Normal skin color.? ?? Extremities: No lower extremity edema.? No calf ttp? Neuro: Moves all extremities spontaneously. Sensation intact bilaterally. No focal neuro deficits. Ambulates with normal steady gait. Course Course Course Narrative: This is a rapid medical exam: Additional HPI, ROS, PE not included below will be deferred to primary provider. Patient is an 88-year-old male with history of DM, HTN, HLD, alcohol abuse presenting to the ED with complaint of difficulty voiding since yesterday. States has intermittently been able to go small amounts but complains of severe pain. Has appointment with PCP tomorrow but cannot wait due to pain. Plan: bladder scan, Medical Decision Making Medical Decision Making [facility] Narrative: Patient is an 88-year-old male past medical history of DM, HTN, HLD, alcohol abuse presenting to the ED for evaluation of dysuria, urinary frequency/hesitancy as per HPI. Abdominal examination is benign. Bladder scan was obtained revealing 70 mL within bladder, able to void afterwards approximately 100 mL. Reviewed labs obtained prior to my assumption of care, no leukocytosis, normocytic anemia that does not meet any transfusion criteria. No electrolyte abnormality. BUN/creatinine mildly elevated compared to prior labs 6 days ago, encouraged increased oral fluids. Urinalysis consistent with UTI, microscopic hematuria is present, no gross hematuria, may be secondary to infection however discussed concern for possible nephrolithiasis, no CVA tenderness or abdominal tenderness on exam, declines CT AP. Patient received initial dose of ceftriaxone in the emergency department and will send prescription for antibiotic to pharmacy. Recommended close outpatient follow-up with his primary care provider as scheduled. Strict return precautions. All questions answered. Stable for discharge. Differential Diagnosis Differential Diagnoses: The differential diagnosis associated with the presentation includes (Urinary tract infection. Abdominal examination benign, no CVA tenderness, low suspicion for pyelonephritis.) Admission/Observation Consideration of admission/observation: Escalation of care including admission/observation considered (See narrative above) Lab Data [facility] Lab Attestation statement: I reviewed the patient's lab results. (See narrative above) 06/20/23 18:34 06/20/23 18:34 Labs: Lab Results 06/20/23 06/20/23 Range/Units 18:30 18:34 WBC 8.0 (4.8-10.8) X10*3/uL RBC 3.73 L (4.60-5.80) X10*6/uL Hgb 11.1 L (14.0-18.0) g/dl Hct 34.0 L (42.0-52.0) % MCV 91.2 (80.0-98.0) fL MCH 29.8 (27.0-33.0) pg MCHC 32.6 (31.0-36.0) g/dl RDW 13.5 (11.0-16.0) % Plt Count 275 (160-400) X10*3/uL MPV 10.3 (9.4-12.4) fL Immature Gran % (Auto) 0.6 H (0.0-0.4) % Neut % (Auto) 77.3 H (45-73) % Lymph % (Auto) 11.2 L (20-40) % [place] % (Auto) 9.0 (2-11) % Eos % (Auto) 1.4 (0-4) % Baso % (Auto) 0.5 (0-2) % Lymph # (Auto) 0.9 L (1.2-4.9) X10*3/uL [place] # (Auto) 0.7 (0.1-1.2) X10*3/uL Eos # (Auto) 0.1 (0.0-0.4) X10*3/uL Baso # (Auto) 0.0 (0.0-0.2) X10*3/uL Abs Immat Gran (auto) 0.05 H (0.00-0.03) X10*3/uL Absolute Neuts (auto) 6.2 (2.0-8.3) x10*3/uL Absolute Nucleated RBC 0.000 (0.0-0.012) X10*3/uL Nucleated RBC % (auto) 0.0 (0.0-0.2) /100WBC Sodium 141 (135-145) mmol/L Potassium 3.5 (3.3-5.1) mmol/L Chloride 107 (96-108) mmol/L Carbon Dioxide 21 L (22-29) mmol/L Anion Gap 17 (12-20) BUN 26 H (9-16) mg/dL Creatinine 1.21 (0.5-1.4) mg/dL Estim Creat Clear Calc 47.2 Estimated GFR 57 Random Glucose 174 H (60-115) mg/dL Calcium 9.0 (8.4-10.2) mg/dL Total Bilirubin 0.7 (0.0-1.0) mg/dL AST 20 (5-37) U/L ALT 25 (0-40) U/L Alkaline Phosphatase 55 (39-117) U/L Total Protein 7.6 (6.5-8.0) g/dL Albumin 4.0 (3.5-5.0) g/dL Urine Color Yellow Urine Appearance Turbid Urine pH 5.0 (5.0-9.0) Ur Specific Kuna 1.025 (1.005-1.025) Urine Protein 100 (2+) H (Neg-Trace) mg/dL Urine Glucose (UA) 250 H (Negative) mg/dL Urine Ketones 15 (Negative) mg/dL Urine Blood Large (3+) H (Negative) Urine Nitrite Positive H (Negative) Ur Leukocyte Esterase Large (3+) H (Negative) Urine RBC 6-10 H (0-2) /HPF Urine WBC >50 H (0-5) /HPF Urine WBC Clumps Present Ur Squamous Epith Cells 0-2 (0-2) /HPF Urine Bacteria 2+ (None Seen) Hyaline Casts 6-10 (0-2) /LPF External Record Review External record reviewed: Outpatient record Tests considered The following testing was considered but not selected: See narrative above Prescription Management I considered prescription management with: Antibiotic Chronic Conditions Patient?s care impacted by: Diabetes Discharge Plan Discharge Clinical Impression: Urinary tract infection Patient Disposition: Home, Self-Care Instructions: Urinary Tract Infection in Men (ED) Prescriptions: New cefuroxime axetil 250 mg tablet 250 mg PO BID Qty: 20 0RF No Action ibuprofen 800 mg tablet 800 mg PO Q6H PRN (Reason: pain) Qty: 20 0RF acetaminophen 500 mg tablet 1,000 mg PO Q6H PRN (Reason: fever or pain) Qty: 20 0RF (DME) FreeStyle Lite Strips Strip See Rx Instructions .Route Qty: 100 8RF Rx Instructions: to check blood sugars once a day (DME) blood-glucose meter [Accu-Chek Guide Glucose Meter] Misc See Rx Instructions .Route Qty: 1 0RF Rx Instructions: As directed (DME) blood-glucose meter [FreeStyle Lite Meter] Kit See Rx Instructions .ROUTE .COMPLEX Qty: 1 0RF Dose Instruction: USE DIRECTED Rx Instructions: USE DIRECTED glyburide 2.5 mg tablet 2.5 mg PO BID Qty: 60 4RF simvastatin 20 mg tablet 20 mg PO DAILY Qty: 90 0RF metformin 500 mg tablet 1,000 mg PO BID 30 Days Qty: 120 0RF furosemide 20 mg tablet 20 mg PO DAILY Qty: 30 0RF lisinopril 20 mg tablet 20 mg PO DAILY Qty: 90 4RF Referrals: Jami Gallegos, ALISSA [Emergency Midlevel Provider] - Dimitri Wilson MD [Primary Care Provider] -
[2023-06-20 18:37] LABS: MANUAL DIFF FLAG NO
[2023-06-20 18:46] LABS: Appearance Urine Turbid; Color Urine Yellow; Glucose Urine UA 250 mg/dL (Negative); Leukocyte Esterase Urine Large (3+) (Negative); Nitrite Urine Positive (Negative); Specific Gravity - Urine 1.025 (1.005-1.025); UMIC TRIGGER UACC YES; Urine Blood Large (3+) (Negative); Urine Ketones 15 mg/dL (Negative); Urine Protein 100 (2+) mg/dL (Neg-Trace)
[2023-06-20 18:54] LABS: Basophils Percent Auto 0.5 % (0-2); Eosinophils Absolute Auto 0.1 X10*3/uL (0.0-0.4); Eosinophils Percent Auto 1.4 % (0-4); Hemoglobin 11.1 g/dl (14.0-18.0); Imm Gran Abs Auto 0.05 X10*3/uL (0.00-0.03); Imm Gran Pct Auto 0.6 % (0.0-0.4); Lymphocytes Absolute Auto 0.9 X10*3/uL (1.2-4.9); Lymphocytes Percent Auto 11.2 % (20-40); Mean Corpuscular HGB Conc 32.6 g/dl (31.0-36.0); Mean Corpuscular Hemoglobin 29.8 pg (27.0-33.0); Mean Corpuscular Volume 91.2 fL (80.0-98.0); Mean Platelet Volume 10.3 fL (9.4-12.4); Monocytes Absolute Auto 0.7 X10*3/uL (0.1-1.2); Neutrophils Absolute Auto 6.2 x10*3/uL (2.0-8.3); Neutrophils Percent Auto 77.3 % (45-73); Platelet Count 275 X10*3/uL (160-400); Red Blood Count 3.73 X10*6/uL (4.60-5.80); Red Cell Distribution Width 13.5 % (11.0-16.0)
[2023-06-20 18:56] LABS: Alanine Aminotransferase 25 U/L (0-40); Alkaline Phosphatase 55 U/L (39-117); Anion Gap 17 (12-20); Aspartate Amino Transferase 20 U/L (5-37); Bilirubin Total 0.7 mg/dL (0.0-1.0); Blood Urea Nitrogen 26 mg/dL (9-16); Carbon Dioxide 21 mmol/L (22-29); Chloride 107 mmol/L (96-108); Creatinine Clr Calc Pharmacy 47.2; Estimated Glomerular Filt Rate 57; Glucose Random 174 mg/dL (60-115); Potassium 3.5 mmol/L (3.3-5.1); Sodium 141 mmol/L (135-145); Total Protein 7.6 g/dL (6.5-8.0)
[2023-06-20 19:03] LABS: Bacteria Urine 2+ (None Seen); Squamous Epithelial Cell Urine 0-2 /HPF (0-2); UACC Culture Trigger YES; WBC Clumps Urine Present; WBC Urine >50 /HPF (0-5)
[2023-06-20 19:43] VITALS: BP 128/84; PULSE 96; RESP 18; TEMP 37; O2SAT 97
--- NOTE | 2023-06-20 19:44 | MHC.EDTECH ---
This tech took over care of patient at 1900, hourly rounds and vitals completed, Patient ambulated with a steady gait to the bathroom,patient stated he voided a moderate amount. Call ashley reach
[2023-06-20] MEDS: cefTRIAXone sodium 1 GM in 0.9 % Sodium Chloride 50 ML IV (20:41)
[2023-06-20 21:05] VITALS: BP 124/85; PULSE 97; RESP 18; TEMP 36.7; O2SAT 97
--- NOTE | 2023-06-20 21:05 | MHC.EDTECH ---
Hourly rounds and vitals completed,patient is being discharged at this time.
== END 2023-06-20 21:38 | disposition home or self-care (01) ==
PROVIDERS: Registered Nurse Emergency; Emergency Provider Emergency Medicine Emergency Medical Services; PCP Internal Medicine
DX: N39.0 Urinary tract infection, site not specified (principal); R33.9 Retention of urine, unspecified; R30.0 Dysuria; Z79.899 Other long term (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
CPT/HCPCS: 36415; 51798; 80053; 81001; 85025; 87086; 87088; 87186; 96374; 99284; J0696

== ENCOUNTER 2023-06-24 10:45 | Outpatient (AMB) | payer MEDICARE, OTHER, SELFPAY ==
[2023-06-24 10:48] VITALS: BP 112/62; PULSE 105; O2SAT 95; BMI 24.5
--- NOTE | 2023-06-24 10:48 | MHC.PC.OV ---
Vital Signs 06/24/23 10:48 Height 6 ft Weight 181 lb BMI 24.5 BP 112/62 Blood Pressure Location Lt brachial Position Sitting Pulse 105 H Pulse Source Pulse Oximeter Pulse Oximetry (%) 95 Oxygen Delivery Method Room Air Intake Visit Reasons: ED f/u- UTI Studio Model: Not Required per policy Accompanied by: Self / Same As Patient Allergies No Known Allergies [No Known Allergies*] Allergy (Verified 06/24/23 10:48) Medication List - Last Reconciled 06/24/23 by Dimitri Wilson MD acetaminophen 1,000 mg (2 x 500 mg) PO Q6H PRN blood sugar diagnostic (FreeStyle Lite Strips) to check blood sugars once a day blood-glucose meter (FreeStyle Lite Meter kit) USE DIRECTED blood-glucose meter (Accu-Chek Guide Glucose Meter) As directed cefuroxime axetil 250 mg PO BID furosemide 20 mg PO DAILY glyburide 2.5 mg PO BID ibuprofen 800 mg PO Q6H PRN lisinopril 20 mg PO DAILY metformin 1,000 mg (2 x 500 mg) PO BID 30 days simvastatin 20 mg PO DAILY Tobacco use date assessed: 05/20/23 Fall risk assessment: No Falls in past year Last assessed Fall Risk: 06/24/23 HPI ED f/u- UTI HPI Details had a UTI; rx'd and feeling better PFSH Medical History Hyperlipidemia Alcohol abuse Diabetes mellitus Hypertension Surgical History History of hernia repair Family History Father Liver problem Mother Past heart attack Brother Cancer Sister Cancer Social History Housing: House Alcohol intake: current Alcohol intake frequency: does not drink Alcohol type: beer Patient Tobacco Use Status: Never used Tobacco e-Cigarette/Vaping Use: Never Used Second Hand Smoke Exposure: No service: Yes Current occupational status: retired Cognitive needs: No Hearing needs: No Vision needs: Yes (reading glasses) Questionnaire Thrive Questionnaire Date Thrive assessed: 05/20/23 NEEL-7 AMB Questionnaire NEEL-7 Date NEEL - 7 assessed: 05/20/23 Source: Developed by Drs. Jeffrey Taylor, Marianne Russo, Radames Marino and colleagues, with an educational puja from [employer]. Review of Systems Const Denies chills, Denies headache(s) and Denies weight loss ENT Denies headache(s) Card Denies chest pain, Denies syncope, Denies irregular heart rhythm and Denies dyspnea Resp Denies chest congestion, Denies cough and Denies dyspnea GI Denies abdominal pain, Denies change in stool character, Denies nausea and Denies vomiting Musc Denies deformity and Denies joint swelling Neuro Denies syncope and Denies headache(s) Physical exam (Primary Care) Vital Signs: Last Vital Signs Pulse 105 H 06/24/23 10:48 BP 112/62 06/24/23 10:48 Pulse Ox 95 06/24/23 10:48 Oxygen Delivery Method Room Air 06/24/23 10:48 BMI result Body Mass Index 24.5 Tobacco/Smoking Status: Tobacco use Status Tobacco use date assessed 05/20/23 06/24/23 10:53 Patient Tobacco Use Status Never used Tobacco 06/24/23 10:53 e-Cigarette/Vaping Use Never Used 06/24/23 10:53 Thrive Assessment: Date of Thrive Assessment Date Thrive assessed 05/20/23 06/24/23 10:53 Const General: cooperative, comfortable, no acute distress and alert Neck Neck: Yes no lymphadenopathy Thyroid: Thyroid normal Resp Effort & Inspection: normal respiratory effort Auscultation: clear to auscultation bilaterally Percussion: percussion normal Cardio Jugular venous distension: no JVD Palpation: normal PMI Rate: regular rate Rhythm: regular rhythm Heart sounds: S1 normal heart sound present and S2 normal heart sound present GI Inspection: Yes normal to inspection Palpation (GI): No hepatosplenomegaly present Skin General skin exam: no rashes or lesions noted Extrem General: Yes no clubbing, cyanosis or edema Assessment and Plan Assessment & Plan (1) UTI (urinary tract infection): Code(s): N39.0 - Urinary tract infection, site not specified Plan: finish rx Coding Level of Care Code Est Pt Level 3 (78988) Diagnoses UTI (urinary tract infection) N39.0
== END 2023-06-24 12:48 | disposition home or self-care (01) ==
PROVIDERS: PCP Internal Medicine; Visit Provider Internal Medicine
DX: N39.0 Urinary tract infection, site not specified (principal)
CPT/HCPCS: 99213

== ENCOUNTER 2023-07-02 12:13 | Inpatient (IN) | payer MEDICARE, OTHER, SELFPAY ==
--- NOTE | ~2023-07-02 | XR_ITS ---
EXAMINATION: XR CHEST CLINICAL INFORMATION: Shortness of breath COMPARISON: CT chest 06/14/2023 TECHNIQUE: Frontal view of the chest was obtained. FINDINGS: Heart size borderline with normal caliber pulmonary vessels. Patchy alveolar opacities in both lungs are observed suspicious for pneumonia. Small effusions may be present. There is advanced degenerative change in both shoulder joints. XR/XR chest 1V IMPRESSION: Bilateral pleural effusions with a suggestion of patchy alveolar opacities. Pneumonia to be considered.
--- NOTE | ~2023-07-02 | CT_ITS ---
EXAMINATION: CT CHEST WITHOUT CONTRAST CLINICAL INFORMATION: Cough and shortness of breath COMPARISON: Previous chest x-ray from earlier the same day and chest CTA May 2023 TECHNIQUE: Multidetector volumetric CT imaging of the chest was done. Axial MIP volume rendering provided. Sagittal and coronal reformatted images were obtained. This CT examination was performed using dose optimization techniques as appropriate, variously including the following: *Automated exposure control *Adjustment of mA and/or kV according to patient size (this includes techniques or standardized protocols for targeted exams where dose is matched to indication/reason for exam; i.e. extremities or head) *Use of iterative reconstruction technique DLP: 316 mGy-cm FINDINGS: LUNGS: Bilateral lower lobe atelectasis/consolidation, right greater than left. MEDIASTINUM: Normal heart size. Trace pericardial effusion. Normal caliber thoracic aorta. No enlarged hilar or mediastinal lymph nodes. CORONARY ARTERY CALCIFICATION: Moderate PLEURA: Moderate to large bilateral pleural effusions, right greater than scattered areas of pleural calcification. AXILLA: No lymphadenopathy. UPPER ABDOMEN: Unremarkable. OSSEOUS STRUCTURES: Degenerative changes of the spine. CT/CT chest wo IV con IMPRESSION: Moderate to large bilateral pleural effusions, right greater than left. Bilateral pleural calcification. Bilateral lower lobe atelectasis/consolidation, right greater than left. Fleischner guidelines were followed.
--- NOTE | 2023-07-02 13:17 | ECG_ITS ---
Test Reason : SOB Blood Pressure : / mmHG Vent. Rate : 105 BPM Atrial Rate : 105 BPM P-R Int : 154 ms QRS Dur : 114 ms QT Int : 356 ms P-R-T Axes : 040 -53 097 degrees QTc Int : 470 ms Sinus tachycardia Left axis deviation Nonspecific T wave abnormality Abnormal ECG When compared with ECG of 14-JUN-2023 05:06, No significant change was found Referred By: Abelardo Monterroso Electronically Signed By:BRITTANY PARKER MD
--- NOTE | 2023-07-02 13:22 | ED.GENADULT ---
HPI - General Adult General Chief complaint: Dyspnea Stated complaint: SOB FOR DAYS PER EMS Time Seen by Provider: 07/02/23 13:14 Source: patient and EMS History of Present Illness HPI narrative: 88 years old with past medical history hypertension, hyperlipidemia, diabetes, presents to the emergency room for shortness of breath. Patient reported he has been unwell for the past few days with generalized body aches and mild shortness of breath which has worsened since this morning. Patient reports that he does not have any chest pain. Denies abdominal pain nausea or vomiting Denies chills or fever but reports that he has a cough once in a while over the past few days. Per EMS patient SpO2 was 95% in room air, he was placed on 2 L nasal cannula with improvement of SpO2 98 100%. On arrival patient can speak in full sentences but reports subjective shortness of breath. Patient has not been a smoker for 60 years No history of recent alcohol use. Patient recently completed a course of antibiotic for UTI and reports that his symptoms regarding UTI have improved. He was recently seen on June 14 where he was diagnosed with bilateral pleural effusions and a small pericardial effusion and was treated with IV diuretics before being discharged home. Related Data Previous Rx's Medication Instructions Recorded ibuprofen 800 mg tablet 800 mg PO Q6H PRN pain #20 tabs 06/08/21 acetaminophen 500 mg tablet 1,000 mg (2 x 500 mg) PO Q6H PRN 06/09/21 fever or pain #20 tabs blood sugar diagnostic (FreeStyle #100 ea 04/02/22 Lite Strips) blood-glucose meter (Accu-Chek #1 ea 05/24/22 Guide Glucose Meter) blood-glucose meter (FreeStyle #1 ea 06/09/22 Lite Meter kit) lisinopril 20 mg tablet 20 mg PO DAILY #90 tabs 08/13/22 glyburide 2.5 mg tablet 2.5 mg PO BID #60 tabs 05/10/23 simvastatin 20 mg tablet 20 mg PO DAILY #90 tabs 05/23/23 furosemide 20 mg tablet 20 mg PO DAILY #30 tabs 06/14/23 cefuroxime axetil 250 mg tablet 250 mg PO BID #20 tabs 06/20/23 metformin 500 mg tablet 1,000 mg (2 x 500 mg) PO BID 30 06/24/23 days #120 tabs Allergies Allergy/AdvReac Type Severity Reaction Status Date / Time No Known Allergies Allergy Verified 06/24/23 10:48 [No Known Allergies*] Review of Systems Review of Systems: Yes all other systems are reviewed and are negative [facility] Past Medical History Medical History Hyperlipidemia Alcohol abuse Diabetes mellitus Hypertension Surgical History History of hernia repair Family History Family History Father Liver problem Mother Past heart attack Brother Cancer Sister Cancer Social History Social History Housing: House Unable to assess alcohol history related to: Unknown Alcohol intake: current Alcohol intake frequency: does not drink Alcohol type: beer Patient Tobacco Use Status: Never used Tobacco Smoked in Last 30 Days: No e-Cigarette/Vaping Use: Never Used Second Hand Smoke Exposure: No Use of substances other than those prescribed or required for medical reasons: No Advance Directives: Yes Advance Directives Information Provided: No Advance Directives on File: No service: Yes Current occupational status: retired Cognitive needs: No Hearing needs: No Vision needs: Yes (reading glasses) Physical Exam ED Vital Signs: Vital Signs - 24 hr 07/02/23 13:24 07/02/23 14:00 Temperature 98.0 F 98.0 F Pulse Rate 100 105 H Respiratory Rate 22 H 18 Blood Pressure 122/85 122/85 Pulse Oximetry 94 0 L Oxygen Delivery Method Room Air Room Air Oxygen Flow Rate 94 BMI result Body Mass Index 24.2 General: Alert, Not in Distress Skin: No rash, warm HEENT: Atraumatic, No Exudate or Pharyngeal Erythema Resp: NCrackles on the L lower field Cardio: Regular rate and Rhythm, Normal S1, S2 ABD: Abd soft, non tender, no guarding or rebound. Normal Bowel sounds. : No cva tenderness Neuro: Alert, oriented x4, PERRL Strenght 5/5 on all extremities Sensation is preserved in both lower and upper extremities Index to nose: normal Cranial Nerves II-XII grossly intact No dysarthria, or aphasia No neglet. Visual ziegler are normal bilaterally Psych: Cooperative, NO SI Course Reevaluation(s) Reevaluation #1: Patient bedside ultrasound showed severe LV dysfunction with bilateral B-lines. According to patient patient did not have an echocardiogram in a long time, unclear if the LV dysfunction is new or old. Will give Lasix 20 mg IV Time: 14:11 Reevaluation #2: Stable but with new finding of reduced EF. Will admit to hospital. Time: 14:32 Medications Administered Discontinued Medications Generic Name Dose Route Start Last Admin Trade Name Evelio PRN Reason Stop Dose Admin Furosemide 20 mg 07/02/23 14:12 07/02/23 14:23 Furosemide 20 Mg/2 Ml Vial IVPUSH 07/02/23 14:13 20 mg ONCE ONE Administration Protocol Medical Decision Making Medical Decision Making MDM Narrative: Patient presents to the emergency room for shortness of breath. On arrival vital signs are fine. Possible differential diagnosis includes viral syndrome, pneumonia, CHF exacerbation or worsening pleural effusion. Less likely PE, since the patient does not have any chest pain and does not appear to be tachycardic. 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 Lab Data MDM Lab Attestation statement: I reviewed the patient's lab results. Patient's blood work showed a troponin of 20. BNP still pending. 07/02/23 13:55 07/02/23 13:55 Labs: Lab Results 07/02/23 07/02/23 Range/Units 13:55 13:57 WBC 9.5 (4.8-10.8) X10*3/uL RBC 3.82 L (4.60-5.80) X10*6/uL Hgb 11.1 L (14.0-18.0) g/dl Hct 33.8 L (42.0-52.0) % MCV 88.5 (80.0-98.0) fL MCH 29.1 (27.0-33.0) pg MCHC 32.8 (31.0-36.0) g/dl RDW 14.1 (11.0-16.0) % Plt Count 316 (160-400) X10*3/uL MPV 10.2 (9.4-12.4) fL Immature Gran % (Auto) 0.4 (0.0-0.4) % Neut % (Auto) 80.7 H (45-73) % Lymph % (Auto) 11.1 L (20-40) % [place] % (Auto) 6.3 (2-11) % Eos % (Auto) 1.2 (0-4) % Baso % (Auto) 0.3 (0-2) % Lymph # (Auto) 1.1 L (1.2-4.9) X10*3/uL [place] # (Auto) 0.6 (0.1-1.2) X10*3/uL Eos # (Auto) 0.1 (0.0-0.4) X10*3/uL Baso # (Auto) 0.0 (0.0-0.2) X10*3/uL Abs Immat Gran (auto) 0.04 H (0.00-0.03) X10*3/uL Absolute Neuts (auto) 7.7 (2.0-8.3) x10*3/uL Absolute Nucleated RBC 0.000 (0.0-0.012) X10*3/uL Nucleated RBC % (auto) 0.0 (0.0-0.2) /100WBC VBG pH 7.40 (7.32-7.43) VBG pCO2 39 mmHg VBG pO2 41 mmHg VBG HCO3 24 (22-26) mmol/L VBG O2 Saturation 63.0 % VBG Base Excess 0.1 mmol/L Sodium 139 (135-145) mmol/L Potassium 4.2 (3.3-5.1) mmol/L Chloride 108 (96-108) mmol/L Carbon Dioxide 25 (22-29) mmol/L Anion Gap 10 L (12-20) BUN 15 (9-16) mg/dL Creatinine 0.86 (0.5-1.4) mg/dL Estim Creat Clear Calc 66.4 Estimated GFR > 60 Random Glucose 231 H (60-115) mg/dL Calcium 9.7 D (8.4-10.2) mg/dL Troponin I High Sens 20.6 (<3.5-35.0) ng/L Independent Interpretation I performed an independent interpretation of an: EKG (EKG shows sinus rhythm no signs of STEMI.), Plain X-Ray and Ultrasound Interpretation: Bedside ultrasound showed severe LV dysfunction with bilateral B-lines consistent with possible CHF exacerbation. Radiology Impression Radiologist Impression: Bilateral congestion Discharge Plan Discharge Clinical Impression: Acute exacerbation of CHF (congestive heart failure) Patient Disposition: Admitted As Inpatient Prescriptions: No Action ibuprofen 800 mg tablet 800 mg PO Q6H PRN (Reason: pain) Qty: 20 0RF acetaminophen 500 mg tablet 1,000 mg PO Q6H PRN (Reason: fever or pain) Qty: 20 0RF (DME) FreeStyle Lite Strips Strip See Rx Instructions .Route Qty: 100 8RF Rx Instructions: to check blood sugars once a day (DME) blood-glucose meter [Accu-Chek Guide Glucose Meter] Misc See Rx Instructions .Route Qty: 1 0RF Rx Instructions: As directed (DME) blood-glucose meter [FreeStyle Lite Meter] Kit See Rx Instructions .ROUTE .COMPLEX Qty: 1 0RF Dose Instruction: USE DIRECTED Rx Instructions: USE DIRECTED glyburide 2.5 mg tablet 2.5 mg PO BID Qty: 60 4RF simvastatin 20 mg tablet 20 mg PO DAILY Qty: 90 0RF metformin 500 mg tablet 1,000 mg PO BID 30 Days Qty: 120 0RF furosemide 20 mg tablet 20 mg PO DAILY Qty: 30 0RF cefuroxime axetil 250 mg tablet 250 mg PO BID Qty: 20 0RF lisinopril 20 mg tablet 20 mg PO DAILY Qty: 90 4RF
[2023-07-02 13:24] VITALS: BP 122/85; PULSE 100; RESP 22; TEMP 36.7; O2SAT 94; BMI 24.2
[2023-07-02 13:25] VITALS: BP 146/98; PULSE 108; O2SAT 95
[2023-07-02 13:59] LABS: MANUAL DIFF FLAG NO
[2023-07-02 14:00] VITALS: BP 122/85; PULSE 105; RESP 18; TEMP 36.7; O2SAT 0
[2023-07-02 14:01] LABS: Basophils Percent Auto 0.3 % (0-2); Eosinophils Absolute Auto 0.1 X10*3/uL (0.0-0.4); Eosinophils Percent Auto 1.2 % (0-4); Hematocrit 33.8 % (42.0-52.0); Hemoglobin 11.1 g/dl (14.0-18.0); Imm Gran Abs Auto 0.04 X10*3/uL (0.00-0.03); Imm Gran Pct Auto 0.4 % (0.0-0.4); Lymphocytes Absolute Auto 1.1 X10*3/uL (1.2-4.9); Lymphocytes Percent Auto 11.1 % (20-40); Mean Corpuscular HGB Conc 32.8 g/dl (31.0-36.0); Mean Corpuscular Hemoglobin 29.1 pg (27.0-33.0); Mean Corpuscular Volume 88.5 fL (80.0-98.0); Mean Platelet Volume 10.2 fL (9.4-12.4); Monocytes Absolute Auto 0.6 X10*3/uL (0.1-1.2); Monocytes Percent Auto 6.3 % (2-11); Neutrophils Absolute Auto 7.7 x10*3/uL (2.0-8.3); Neutrophils Percent Auto 80.7 % (45-73); Platelet Count 316 X10*3/uL (160-400); Red Blood Count 3.82 X10*6/uL (4.60-5.80); Red Cell Distribution Width 14.1 % (11.0-16.0); White Blood Count 9.5 X10*3/uL (4.8-10.8)
[2023-07-02 14:03] LABS: VBG Base Excess 0.1 mmol/L; VBG HCO3 24 mmol/L (22-26); VBG pCO2 39 mmHg; VBG pO2 41 mmHg
[2023-07-02 14:03] LABS: Venous Blood Gas Refer to POC result
--- NOTE | 2023-07-02 14:05 | PC.NURSE ---
Patient came to hospital from home due to intermittent SOB for the last few days. Patient is alert and oriented. Respirations even and unlabored. lung sounds clear throughout.
[2023-07-02 14:13] LABS: Anion Gap 10 (12-20); Blood Urea Nitrogen 15 mg/dL (9-16); Calcium 9.7 mg/dL (8.4-10.2); Carbon Dioxide 25 mmol/L (22-29); Chloride 108 mmol/L (96-108); Creatinine Clr Calc Pharmacy 66.4; Estimated Glomerular Filt Rate > 60; Glucose Random 231 mg/dL (60-115); Potassium 4.2 mmol/L (3.3-5.1); Sodium 139 mmol/L (135-145)
[2023-07-02 14:21] LABS: Troponin-I High Sensitivity 20.6 ng/L (<3.5-35.0)
[2023-07-02] MEDS: Furosemide 20 MG/2 ML VIAL IVPUSH (14:23)
--- NOTE | 2023-07-02 14:26 | PC.NURSE ---
patient a&ox3, vss, pt speaking in full sentences, pt sinus tach on director of cardiac rehabilitation, lungs clear, pt medicated with lasix per order, ekg performed, call ramirez within reach, will continue to monitor
[2023-07-02 14:41] LABS: B Type Natriuretic Peptide 840 pg/mL (<100)
[2023-07-02 14:44] LABS: Influenza A PCR NEGATIVE (Negative); Influenza B PCR NEGATIVE (Negative); Resp Syncy Virus RNA Qual PCR NEGATIVE (Negative); SARS COV2 PCR INHOUSE NEGATIVE (Negative)
--- NOTE | 2023-07-02 14:56 | PHA.MEDREC ---
Pharmacy Consult ? Medication Reconciliation Pharmacy has completed the medication reconciliation. Patient reported medications. Report today was the last day of his antibotic . Reports not taking the furosemide prescribed by the ER provider at the end of feburary. Ana Luisa Ortega, MagnoD
--- NOTE | 2023-07-02 16:08 | PM.IMHP ---
History of Present Illness Date of Service: 07/02/23 Attending physician on admission: Hilary Bob Chief Complaint: dyspnea 88-year-old male with history of noninsulin dependent type 2 diabetes, hypertension, hyperlipidemia, alcohol use disorder (consumes 2-3 beers daily last drink 2 weeks ago per son) presented to the ED earlier today with his son for evaluation of dyspnea. He has been reporting progressively worsening dyspnea both at rest and with exertion ongoing for 2 weeks, worst this morning prompting him to present to the ED for evaluation. Has chronic orthopnea, no PND. Last echo 03/14 showed EF 35-40%. Was seen in the ED about 3 weeks ago and was started on lasix 20mg daily due to bilateral pleural effusions but he is no longer taking this. Also recently seen in ED for UTi (UC +klebsiella sensitive to ctx) and completed cefuoxime this morning. Has had intermittent non productive cough ongoing x several days. No fevers, chills, st, congestion, abd pain,n/v/d, urinary symptoms, lightheadedness, palpitations, chest pain. On arrival, pt tachycardic to 105. No hypertension or hypoxia. No fevers. No leukocytosis, stable normocytic anemia. Renal function electrolyte levels normal. BNP 840 (was 607 06/14), trop 20. Negative for COVID-19, influenza, RSV. Chest x-ray shows bilateral pleural effusions with suggestion of patchy alveolar opacities, consider pneumonia. EKG shows sinus tachycardia, rate 105, nonspecific T-wave abnormality unchanged from prior EKGs. In the ED, given 20mg lasix. Review of Systems Review of Systems: General: No fevers, malaise, unintentional weight loss HEENT: No blurred vision, diplopia. No sore throat, nasal congestion, rhinorrhea, sinus pain, ear pain Cardiovascular: No chest pain, palpitations, or leg edema Respiratory: +dyspnea. No wheezing, cough GI: No abdominal pain, nausea, vomiting, diarrhea, constipation, melena, hematochezia : No dysuria, hematuria, increased urinary frequency, decreased urinary output MSK: No myalgia, back pain Neuro: No headaches, weakness, paresthesias Skin: No rashes or lesions [facility] Medical History (Updated 07/02/23 @ 16:29 by DAHIANA Tomas) HFrEF (heart failure with reduced ejection fraction) Hyperlipidemia Alcohol abuse Diabetes mellitus Hypertension Family History Father Liver problem Mother Past heart attack Brother Cancer Sister Cancer Surgical History History of hernia repair Social History Housing: House Unable to assess alcohol history related to: Unknown Alcohol intake: current Alcohol intake frequency: does not drink Alcohol type: beer Patient Tobacco Use Status: Never used Tobacco Smoked in Last 30 Days: No e-Cigarette/Vaping Use: Never Used Second Hand Smoke Exposure: No Use of substances other than those prescribed or required for medical reasons: No Advance Directives: Yes Advance Directives Information Provided: No Advance Directives on File: No service: Yes Current occupational status: retired Cognitive needs: No Hearing needs: No Vision needs: Yes (reading glasses) Meds Allergies Allergy/AdvReac Type Severity Reaction Status Date / Time No Known Allergies Allergy Verified 06/24/23 10:48 [No Known Allergies*] Active Medications: Current Medications Acetaminophen (Acetaminophen 325 Mg Tablet) 650 mg PO Q6H PRN PRN Reason: Pain, Mild (Pain Scale 1-3) Dextrose (Dextrose 50 % 25 Gm/50 Ml Syringe) 25 gm IVPUSH Q15M PRN; Protocol PRN Reason: per Hypoglycemia Standing Ord. Enoxaparin Sodium (Enoxaparin Sodium 40 Mg/0.4 Ml Syringe) 40 mg SUBCUT Q24H SALLY Furosemide (Furosemide 20 Mg/2 Ml Vial) 20 mg IVPUSH DAILY SALLY; Protocol Glucose (Glucose Gel 15 Gm Gel..Gram.) 15 gm PO Q15M PRN; Protocol PRN Reason: per Hypoglycemia Standing Ord. Insulin Human Lispro (Insulin Lispro 100 Unit/Ml 3 Ml Vial) 0 unit SUBCUT QIDACHS SALLY; Protocol Ondansetron HCl (Ondansetron Hcl 4 Mg/2 Ml Vial) 4 mg IVPUSH Q8H PRN PRN Reason: Nausea and Vomiting Senna (Sennosides 8.6 Mg Tablet) 17.2 mg PO BEDTIME PRN PRN Reason: Constipation Sodium Chloride (0.9 % Sodium Chloride Flush 3 Ml Syringe) 3 ml IVFLUSH QSHIFT [facility] Physical Exam Vital Signs and Narrative: Vital Signs: Last Vital Signs Temp 98.0 F 07/02/23 14:00 Pulse 105 H 07/02/23 14:00 Resp 18 07/02/23 14:00 BP 122/85 07/02/23 14:00 Pulse Ox 0 L 07/02/23 14:00 O2 Del Method Room Air 07/02/23 14:00 O2 Flow Rate 94 07/02/23 14:00 BMI result Body Mass Index 24.2 Constitutional - Awake and Alert, No apparent distress Eyes - PERRLA, EOMI Cardiovascular - S1S2, RRR, No edema Respiratory - Normal lung expansion, Normal respiratory effort, No respiratory distress, CTA bilaterally Gastrointestinal - NT / ND; +BS; No rebound or guarding Extremities - no calf tenderness bilaterally, no swelling Skin - Warm/Dry Neurological - Alert & oriented x3 Psychological - Appropriate affect Results Labs 07/02/23 13:55 07/02/23 13:55 Labs: Laboratory Results - last 24 hr 07/02/23 07/02/23 07/02/23 13:40 13:55 13:57 MCV 88.5 MCH 29.1 MCHC 32.8 RDW 14.1 Plt Count 316 MPV 10.2 Immature Gran % (Auto) 0.4 Neut % (Auto) 80.7 H Lymph % (Auto) 11.1 L [place] % (Auto) 6.3 Eos % (Auto) 1.2 Baso % (Auto) 0.3 Lymph # (Auto) 1.1 L [place] # (Auto) 0.6 Eos # (Auto) 0.1 Baso # (Auto) 0.0 Abs Immat Gran (auto) 0.04 H Absolute Neuts (auto) 7.7 Absolute Nucleated RBC 0.000 Nucleated RBC % (auto) 0.0 VBG pH 7.40 VBG pCO2 39 VBG pO2 41 VBG HCO3 24 VBG O2 Saturation 63.0 VBG Base Excess 0.1 Anion Gap 10 L Estim Creat Clear Calc 66.4 Estimated GFR > 60 Random Glucose 231 H Calcium 9.7 D Troponin I High Sens 20.6 B-Natriuretic Peptide 840 H Influenza Type A (PCR) NEGATIVE Influenza Type B (PCR) NEGATIVE RSV RNA Qual (PCR) NEGATIVE SARS-CoV-2 RNA (RT-PCR) NEGATIVE Imaging Radiologist's Impressions: Impressions Chest X-Ray 07/02/23 13:45 IMPRESSION: Bilateral pleural effusions with a suggestion of patchy alveolar opacities. Pneumonia to be considered. Assessment and Plan (1) Acute exacerbation of CHF (congestive heart failure): Status: Acute Plan 88-year-old male with history of noninsulin dependent type 2 diabetes, hypertension, hyperlipidemia, alcohol use disorder (consumes 2-3 beers daily last drink 2 weeks ago per son) admitted for acute CHF exacerbation. #Acute CHF exacebration -Last EF 35-40% 02/2023, bedside echo today shoed ef 20-25% -repeat limited echo -20mg lasix IV daily -cardiac diet -strict I&O -cardiology consult for medication optimazation # [id number] type 2 diabetes -POC glucose, diabetic diet -Humalog on sliding scale -hold glyburide and metformin # hypertension -blood pressure reasonably controlled -continue lisinopril # hyperlipidemia -continue statin # alcohol use disorder -reportedly has not had any alcohol in the last 2 weeks, counseled on alcohol cessation dvt prophylaxis- lovenox full code pt requires inpt stay at least 2 midnights for management of chf exacerbation requiring iv diuresis and expert consultation Quality Stroke Does the patient have a stroke diagnosis?: No VTE Prior VTE?: No VTE Risk Level:: Medical - moderate - high VTE Device Contraindication: Treatment Not Indicated VTE Drug Contraindication: N/A - Med Ordered
--- NOTE | 2023-07-02 16:21 | PC.NURSE ---
Patient voiding into urinal unsteadily. Patient interested in [place]. Urinal emptied 500ml of clear yellow urine. [place] cath applied and attached to leg bag.
[2023-07-02] MEDS: Enoxaparin Sodium 40 MG/0.4 ML SYRINGE SUBCUT (16:33)
--- NOTE | 2023-07-02 17:25 | PC.NURSE ---
This nurse noticed pts inpt ordered requested Med/Surge, this nurse cornell texted hospitalist provider Eufemia Mendoza questioning if the pt should be on tele monitoring given the CHF diagnosis- it was determined by the provider that the patient does not need tele monitoring, this nurse felt that the patient should be on tele monitoring given he has been tachy on the [employer] and been given lasix.
[2023-07-02 17:41] LABS: Glucose, Whole Blood 192 mg/dL (60-115)
[2023-07-02 17:49] VITALS: BP 116/83; PULSE 101; RESP 34; TEMP 36.4; O2SAT 93
--- NOTE | 2023-07-02 19:21 | PC.NURSE ---
Assumed care of pt. Pt sitting upright on bed, eating crackers/marion mikaela. No acute distress at this time. pt requesting sleep aid. Clarified Cardiac Monitoring order, D/C per provider, d/t pt admission to med surg. New medication for sleep ordered. Continuing plan of care with plan to medicate with pm meds.
[2023-07-02 19:39] VITALS: BP 128/71; PULSE 105; RESP 20; TEMP 36.8; O2SAT 94
--- NOTE | 2023-07-02 20:41 | MHC.CM.ED ---
CM met with admitted patient in the overflow unit. IMM 07/01. Reviewed and signed. Original to patient and copy to medical records. A&Ox3. Pt's grandson lives with him. Pt is independent. Drives. Has no DME/services. Has a HCP at home. HCP is his son, Chance Murray ([phone]). Pt is a [employer] vet. He receives no VA services. Pt had a Covid and Flu shot last 02/11. THRIVE assessment negative, however patient feels he could use home help with housekeeping services. CM will task [facility]. Discharge plan: home. Family transport. Pt is unsure if he will need any VNA services. CM will follow for discharge planning.
[2023-07-02 21:08] LABS: Glucose, Whole Blood 227 mg/dL (60-115)
[2023-07-02] MEDS: Melatonin 3 MG TABLET 6 MG PO (21:17)
[2023-07-02] MEDS: Acetaminophen 325 MG TABLET 650 MG PO (21:17)
[2023-07-02] MEDS: Insulin Lispro 100 UNIT/ML 3 ML VIAL SUBCUT (21:17)
[2023-07-03] MEDS: 0.9 % Sodium Chloride Flush 3 ML SYRINGE IVFLUSH (00:51)
--- NOTE | 2023-07-03 03:07 | PC.NURSE ---
Resumed care of pt. Pt eyes closed, respirations even and unlabored, no acute distress. Continuing plan of care.
[2023-07-03 05:39] VITALS: BP 124/84; PULSE 98; RESP 17; TEMP 36.7; O2SAT 92
[2023-07-03 06:49] LABS: MANUAL DIFF FLAG NO
--- NOTE | 2023-07-03 07:00 | CA_ITS ---
Transthoracic Echocardiogram Patient (Last, First, Middle): Jeet Mena J Gender: Male Date of : 1935 Age: 88 Procedure Date: 07/03/2023 Procedure Type: Transthoracic Echocardiogram Location: [facility] [place] Height: 182.88 cm Weight: 80.74 kg BSA: 2.03 m2 Heart Rate: bpm BP: 124 / 84 mmHg Car Shunter: Referring MD: Eufemia TALBOT Fire Support Man: Yosef Cuello MD Symptoms: chf, worsening ef on bedside echo Study Quality: Adequate w Contrast ECG Rhythm: Atrial Fibrillation Conclusions: - 1. Mildly dilated left ventricle with severely reduced LV ejection fraction 20 25% with some regional wall motion abnormality in LAD territory 2. Moderate mitral regurgitation 3. Mildly elevated right ventricular systolic pressure 4. Trivial pericardial effusion Findings Procedure Information Contrast agent, definity, is being given per protocol without apparent complications. Left Ventricle Mildly increased left ventricular cavity size. There is normal left ventricular wall thickness. The left ventricular systolic function is severely decreased. The visually estimated ejection fraction is between 20 25%. There is evidence of regional wall motion abnormalities. Spectral Doppler is indicative of a restrictive filling pattern. Wall Motion Rest Echo Findings The inferoseptal wall, inferior wall, anterolateral wall, the basal anterior, mid anterior, apical septum, and mid inferolateral segments are hypokinetic. The apex, apical anterior, apical lateral, basal anteroseptal, and mid anteroseptal segments are akinetic. All other scored wall segments showed normal motion. Right Ventricle Normal right ventricular cavity size and systolic function. Atria The left atrium is likely dilated. There is no evidence of interatrial shunt. The right atrium is normal in size. Aortic Valve There is mild calcification of the aortic valve. There is no aortic valve stenosis. There is no aortic valve regurgitation. Mitral Valve There is moderate anterior and posterior mitral leaflet thickening. There is mild mitral annular calcification. There is moderate mitral valve regurgitation. There is no mitral valve stenosis. Pulmonic Valve The pulmonic valve was not well visualized. Tricuspid Valve Likely normal tricuspid valve structure and function. There is mild tricuspid valve regurgitation. Normal right atrial pressure. Mild pulmonary hypertension is present. Great Vessels The pulmonary artery was not well visualized. There is no dilatation of the ascending aorta measuring 3.20 cm. Venous The inferior vena cava is normal in size and collapses greater than 50% with inspiration. Pericardium/Pleural There is a trivial loculated pericardial effusion overlying the left ventricle. There is a bilateral pleural effusion. Measurements 2D Linear Measurements IVSd: 0.80 0.6-0.9/0.6-1.0 cm LVIDd: 5.94 3.9-5.3/4.2-5.9 cm LVIDd Index: 2.93 2.4-3.2/2.2-3.1 cm/m2 LVIDs: 5.04 2.0-3.6 cm LVPWd: 0.79 0.7-1.1 cm Ao Root: 3.40 2.1-3.5 cm LA Diam: 4.60 2.7-3.8/3.0-4.0 cm LAIDs Index: 2.27 1.5-2.3 cm/m2 LV Mass: 226.78 67-162/88-224 g LV Mass Index: 111.71 43-95/49-115 g/m2 LVOT Diam: 2.40 3.0+(-)1.3 cm 2D Systolic Function EF 4C: 22.40 >55% EF 2C: 16.60 >55% EF BiP: 20.30 >55% Mitral Valve MV Pk E: 1.01 MV Decel Time: 122.00 E'Lateral: 11.50 E'Medial: 3.15 E/E' Med: 32.10 E/E' Lat: 8.80 PHT: 36.00 MVA PHT: 6.11 Decel [place]: 8.29 Aortic Valve AoV Pk Yunior: 0.61 AoV Mn Yunior: 0.38 AoV VTI: 0.11 AoV Pk Grad: 1.00 Aov Mn Grad: 1.00 NADYA Cont.VTI: 4.56 LVOT LVOT Pk Yunior: 0.66 LVOT Mn Yunior: 0.44 LVOT VTI: 0.11 LVOT Pk Grad: 2.00 LVOT Mn Grad: 1.00 LVOT Diam: 2.40 LVOT Area: 4.52 Diastolic Function MV Pk E: 1.01 E'Medial: 3.15 E/E' Med: 32.10 E' Laterial: 11.50 E/E' Lat: 8.80 Right Ventricle TAPSE (mm): 20.00 TVS' Yunior: 13.00 Tricuspid Valve TR Pk Yunior: 2.84 TR Pk Grad: 32.00 RA Press: 8.00 RVSP: 40.00 Great Vessels Aorta Ao Root-2D: 3.40 2.0-3.7 cm Ao Asc: 3.20 2.1-3.4 cm Pulmonary Valve PV Pk Yunior: 0.83 Peak PV Grad: 3.00 Updated in Other Vendor System with Status of Final Yosef Cuello MD electronically signed on 07/03/2023 11:19:46 AM with status of Final
[2023-07-03 07:04] LABS: Basophils Percent Auto 0.4 % (0-2); Eosinophils Absolute Auto 0.1 X10*3/uL (0.0-0.4); Eosinophils Percent Auto 1.3 % (0-4); Hematocrit 37.9 % (42.0-52.0); Hemoglobin 12.3 g/dl (14.0-18.0); Imm Gran Abs Auto 0.03 X10*3/uL (0.00-0.03); Imm Gran Pct Auto 0.3 % (0.0-0.4); Lymphocytes Percent Auto 10.6 % (20-40); Mean Corpuscular HGB Conc 32.5 g/dl (31.0-36.0); Mean Corpuscular Hemoglobin 29.1 pg (27.0-33.0); Mean Corpuscular Volume 89.6 fL (80.0-98.0); Mean Platelet Volume 10.5 fL (9.4-12.4); Monocytes Absolute Auto 0.6 X10*3/uL (0.1-1.2); Monocytes Percent Auto 6.3 % (2-11); Neutrophils Absolute Auto 7.3 x10*3/uL (2.0-8.3); Neutrophils Percent Auto 81.1 % (45-73); Platelet Count 348 X10*3/uL (160-400); Red Blood Count 4.23 X10*6/uL (4.60-5.80); Red Cell Distribution Width 13.9 % (11.0-16.0); White Blood Count 9.1 X10*3/uL (4.8-10.8)
[2023-07-03 07:12] LABS: Anion Gap 14 (12-20); Blood Urea Nitrogen 14 mg/dL (9-16); Calcium 9.7 mg/dL (8.4-10.2); Carbon Dioxide 25 mmol/L (22-29); Chloride 105 mmol/L (96-108); Creatinine Clr Calc Pharmacy 66.4; Estimated Glomerular Filt Rate > 60; Glucose Random 186 mg/dL (60-115); Potassium 3.5 mmol/L (3.3-5.1); Sodium 140 mmol/L (135-145)
[2023-07-03 07:13] LABS: B Type Natriuretic Peptide 918 pg/mL (<100)
[2023-07-03 07:58] VITALS: BP 117/75; PULSE 89; RESP 19; TEMP 36.2; O2SAT 94
[2023-07-03] MEDS: Insulin Lispro 100 UNIT/ML 3 ML VIAL SUBCUT ×2 (08:00→11:51)
--- NOTE | 2023-07-03 08:03 | PC.NURSE ---
patient sitting up in bed eating breakfast, alert and oriented x3. patient VSS, skin dry and intact, respirations equal and unlabored.
[2023-07-03 08:39] LABS: Procalcitonin 0.02 ng/mL
[2023-07-03 08:40] LABS: Glucose, Whole Blood 190 mg/dL (60-115)
[2023-07-03] MEDS: Furosemide 20 MG/2 ML VIAL IVPUSH (09:26)
[2023-07-03] MEDS: lisinopriL 20 MG TABLET PO (09:27)
[2023-07-03] MEDS: Atorvastatin Calcium 10 MG TABLET PO (09:27)
--- NOTE | 2023-07-03 09:45 | PC.NURSE ---
patient ambulates to bathroom with 1 assist
--- NOTE | 2023-07-03 11:21 | P.CONCA_ITS ---
History of Present Illness History of Present Illness Date of Service: 07/03/23 Requesting physician: Isela Hyman Consult reason: congestive heart failure Chief complaint: CHF Narrative: I was consulted to see Jeet in cardiology consultation today for new onset congestive heart failure. Patient is a 88-year-old male who I saw in February last year for symptoms of fatigue. At that time echocardiogram done had shown LV ejection fraction of 45%, he did not have any follow-up after that. His symptoms at that time were symptoms of fatigue and no other heart failure symptoms or exertional symptoms. He was pretty independent and functional. Over the last few months he has had worsening symptoms of fatigue and also has shortness of breath. No chest discomfort. One episode when he had sudden-onset shortness of breath while he was lying down and he was subsequently referred here for further evaluation. He was noted to have significant elevated BNP in the 800 range and bedside echo in the ED at shown LVEF of 20%. He was therefore admitted for new onset congestive heart failure. He is got Lasix since yesterday and is diuresed and he said he feels a lot better right now. He has not had any episodes of chest pain. He is remained hemodynamically stable. Echocardiogram done officially again shows dilated LV with LVEF of 20-25% with no regionality in the LAD territory. He denies any prior history of coronary artery disease. He has never been worked up in the past for the same. There is reported history of alcohol abuse in the past. He said otherwise he lives independently at home with his grandson. Review of Systems 2 Constitutional: Constitutional: Reports fatigue Eyes: Eyes: Reports no additional eye complaints Cardiovascular: Cardiovascular: Denies chest pain, Denies rapid heart rate, Denies leg edema, Denies lightheadedness, Denies Loss of Consciousness, Denies palpitations, Reports dyspnea on exertion and Reports orthopnea Respiratory: Respiratory: Reports no additional respiratory complaints and Reports dyspnea on exertion Gastrointestinal: Gastrointestinal: Reports no additional gastrointestinal complaints Genitourinary: Genitourinary: Reports no additional male genitourinary complaints Integumentary/Breasts: Skin/Breast: Reports system reviewed and no additional complaints, except as docu Neurologic: Reports system reviewed and no additional complaints, except as documented Psychiatric: Psychiatric: Reports no additional psychiatric complaints Endocrine: Endocrine: Reports no additional endocrine complaints, Reports fatigue and Denies palpitations PMFSH Past Medical History Medical History HFrEF (heart failure with reduced ejection fraction) Hyperlipidemia Alcohol abuse Diabetes mellitus Hypertension Family History Family History Father Liver problem Mother Past heart attack Brother Cancer Sister Cancer Surgical History Surgical History History of hernia repair Social History Social History (Reviewed 07/03/23 @ 11: by Yosef Cuello MD) Housing: House Unable to assess alcohol history related to: Unknown Alcohol intake: current Alcohol intake frequency: does not drink Alcohol type: beer Patient Tobacco Use Status: Never used Tobacco e-Cigarette/Vaping Use: Never Used Second Hand Smoke Exposure: No service: Yes Current occupational status: retired Cognitive needs: No Hearing needs: No Vision needs: Yes (reading glasses) Meds Allergies Allergy/AdvReac Type Severity Reaction Status Date / Time No Known Allergies Allergy Verified 06/24/23 10:48 [No Known Allergies*] Active Medications: Current Medications Acetaminophen (Acetaminophen 325 Mg Tablet) 650 mg PO Q6H PRN PRN Reason: Pain, Mild (Pain Scale 1-3) Last Admin: 07/02/23 21:17 Dose: 650 mg Atorvastatin Calcium (Atorvastatin Calcium 10 Mg Tablet) 10 mg PO DAILY [facility] Last Admin: 07/03/23 09:27 Dose: 10 mg Dextrose (Dextrose 50 % 25 Gm/50 Ml Syringe) 25 gm IVPUSH Q15M PRN; Protocol PRN Reason: per Hypoglycemia Standing Ord. Enoxaparin Sodium (Enoxaparin Sodium 40 Mg/0.4 Ml Syringe) 40 mg SUBCUT Q24H [facility] Last Admin: 07/02/23 16:33 Dose: 40 mg Furosemide (Furosemide 20 Mg/2 Ml Vial) 20 mg IVPUSH BID@0900,1800 [facility]; Protocol Last Admin: 07/03/23 09:26 Dose: 20 mg Glucose (Glucose Gel 15 Gm Gel..Gram.) 15 gm PO Q15M PRN; Protocol PRN Reason: per Hypoglycemia Standing Ord. Insulin Human Lispro (Insulin Lispro 100 Unit/Ml 3 Ml Vial) 0 unit SUBCUT QIDACHS [facility]; Protocol Last Admin: 07/03/23 08:00 Dose: 6 unit Lisinopril (Lisinopril 20 Mg Tablet) 20 mg PO DAILY [facility]; Protocol Last Admin: 07/03/23 09:27 Dose: 20 mg Melatonin (Melatonin 3 Mg Tablet) 6 mg PO BEDTIME PRN PRN Reason: Sleep Last Admin: 07/02/23 21:17 Dose: 6 mg Ondansetron HCl (Ondansetron Hcl 4 Mg/2 Ml Vial) 4 mg IVPUSH Q8H PRN PRN Reason: Nausea and Vomiting Senna (Sennosides 8.6 Mg Tablet) 17.2 mg PO BEDTIME PRN PRN Reason: Constipation Sodium Chloride (0.9 % Sodium Chloride Flush 3 Ml Syringe) 3 ml IVFLUSH QSHIFT [facility] Last Admin: 07/03/23 08:03 Dose: Not Given Physical Exam 2 Vital Signs: Vital Signs: Last Vital Signs Temp 97.2 F 07/03/23 07:58 Pulse 89 07/03/23 07:58 Resp 19 07/03/23 07:58 BP 117/75 07/03/23 07:58 Pulse Ox 94 07/03/23 07:58 O2 Del Method Room Air 07/03/23 07:58 O2 Flow Rate 94 07/02/23 14:00 BMI result Body Mass Index 24.2 Const: General: cooperative, comfortable, no acute distress, alert and awake Nutritional Appearance: thin Orientation/consciousness: patient oriented x3 Limitations: no limitations HEENT: Head: Yes normocephalic and Yes atraumatic Neck: Neck: Yes trachea midline, Yes supple and Yes no JVD (Positive AJR) Resp: Effort & Inspection: normal respiratory effort Auscultation: no rales, no wheezes and breath sounds absent bilateral (Basis) Cardio: Jugular venous distension: no JVD Palpation: abnormal PMI displaced PMI Rate: regular rate Rhythm: regular rhythm Heart sounds: S1 normal heart sound present, S2 normal heart sound present, no click, no gallops, no murmurs and no rubs GI: Auscultation: normal bowel sounds Skin: General skin exam: no rashes or lesions noted Neuro: General: patient oriented x3 and no focal motor deficits Extrem: General: Yes no clubbing, cyanosis or edema Objective Labs and Meds 07/03/23 06:32 07/03/23 06:32 Lab results: Laboratory Results - last 24 hr 07/02/23 07/02/23 07/02/23 13:40 13:55 13:57 WBC 9.5 RBC 3.82 L Hgb 11.1 L Hct 33.8 L MCV 88.5 MCH 29.1 MCHC 32.8 RDW 14.1 Plt Count 316 MPV 10.2 Immature Gran % (Auto) 0.4 Neut % (Auto) 80.7 H Lymph % (Auto) 11.1 L [place] % (Auto) 6.3 Eos % (Auto) 1.2 Baso % (Auto) 0.3 Lymph # (Auto) 1.1 L [place] # (Auto) 0.6 Eos # (Auto) 0.1 Baso # (Auto) 0.0 Abs Immat Gran (auto) 0.04 H Absolute Neuts (auto) 7.7 Absolute Nucleated RBC 0.000 Nucleated RBC % (auto) 0.0 VBG pH 7.40 VBG pCO2 39 VBG pO2 41 VBG HCO3 24 VBG O2 Saturation 63.0 VBG Base Excess 0.1 Sodium 139 Potassium 4.2 Chloride 108 Carbon Dioxide 25 Anion Gap 10 L BUN 15 Creatinine 0.86 Estim Creat Clear Calc 66.4 Estimated GFR > 60 POC Glucose Random Glucose 231 H Calcium 9.7 D Troponin I High Sens 20.6 B-Natriuretic Peptide 840 H Procalcitonin Influenza Type A (PCR) NEGATIVE Influenza Type B (PCR) NEGATIVE RSV RNA Qual (PCR) NEGATIVE SARS-CoV-2 RNA (RT-PCR) NEGATIVE 07/02/23 07/02/23 07/03/23 17:38 21:00 06:32 WBC 9.1 RBC 4.23 L Hgb 12.3 L Hct 37.9 L MCV 89.6 MCH 29.1 MCHC 32.5 RDW 13.9 Plt Count 348 MPV 10.5 Immature Gran % (Auto) 0.3 Neut % (Auto) 81.1 H Lymph % (Auto) 10.6 L [place] % (Auto) 6.3 Eos % (Auto) 1.3 Baso % (Auto) 0.4 Lymph # (Auto) 1.0 L [place] # (Auto) 0.6 Eos # (Auto) 0.1 Baso # (Auto) 0.0 Abs Immat Gran (auto) 0.03 Absolute Neuts (auto) 7.3 Absolute Nucleated RBC 0.000 Nucleated RBC % (auto) 0.0 VBG pH VBG pCO2 VBG pO2 VBG HCO3 VBG O2 Saturation VBG Base Excess Sodium 140 Potassium 3.5 Chloride 105 Carbon Dioxide 25 Anion Gap 14 BUN 14 Creatinine 0.86 Estim Creat Clear Calc 66.4 Estimated GFR > 60 POC Glucose 192 H 227 H Random Glucose 186 H Calcium 9.7 Troponin I High Sens B-Natriuretic Peptide 918 H Procalcitonin 0.02 Influenza Type A (PCR) Influenza Type B (PCR) RSV RNA Qual (PCR) SARS-CoV-2 RNA (RT-PCR) 07/03/23 07:26 WBC RBC Hgb Hct MCV MCH MCHC RDW Plt Count MPV Immature Gran % (Auto) Neut % (Auto) Lymph % (Auto) [place] % (Auto) Eos % (Auto) Baso % (Auto) Lymph # (Auto) [place] # (Auto) Eos # (Auto) Baso # (Auto) Abs Immat Gran (auto) Absolute Neuts (auto) Absolute Nucleated RBC Nucleated RBC % (auto) VBG pH VBG pCO2 VBG pO2 VBG HCO3 VBG O2 Saturation VBG Base Excess Sodium Potassium Chloride Carbon Dioxide Anion Gap BUN Creatinine Estim Creat Clear Calc Estimated GFR POC Glucose 190 H Random Glucose Calcium Troponin I High Sens B-Natriuretic Peptide Procalcitonin Influenza Type A (PCR) Influenza Type B (PCR) RSV RNA Qual (PCR) SARS-CoV-2 RNA (RT-PCR) EKG shows sinus tachycardia with nonspecific ST T wave changes Imaging Radiologist's impression: Impressions Chest X-Ray 07/02/23 13:45 IMPRESSION: Bilateral pleural effusions with a suggestion of patchy alveolar opacities. Pneumonia to be considered. Chest CT 07/02/23 18:30 IMPRESSION: Moderate to large bilateral pleural effusions, right greater than left. Bilateral pleural calcification. Bilateral lower lobe atelectasis/consolidation, right greater than left. Fleischner guidelines were followed. Assessment and Plan (1) Acute exacerbation of CHF (congestive heart failure): Status: Acute Acute onset of congestive heart failure in this elderly gentleman clinically appears very euvolemic and well compensated since diuresis. Echocardiogram review shows severe LV systolic dysfunction. By echocardiographic findings appears to be possibly ischemic with significant underlying coronary disease. Will require cardiac catheterization and was discussed with the patient if need be and he said he is agreeable to pursue the same if so required. He is independent and active. He has multiple risk factors including advanced age, hypertension as well as diabetes and hyperlipidemia. Meanwhile will switch his lisinopril to valsartan with the plan for outpatient conversion to Entresto therapy. Will also start on carvedilol 3.125 mg b.i.d. for neurohormonal modulation. Lasix 20 mg daily. Agree with aspirin and atorvastatin change. Will follow up in the clinic in 1 week's time and set him up for cardiac catheterization. Thank you for allowing me to partake in his care Procedures Date of Service Date of Service: 07/03/23
--- NOTE | 2023-07-03 11:29 | PM.DS ---
DS: Providers Provider Date of Service: 07/03/23 Date of admission: 07/02/23 16:02 Date of discharge: 07/03/23 Primary care physician: Dimitri Wilson MD Consults: 07/02/23 16:01 Consult to Cardiology Routine Consulting Provider: [facility] Cardiovascular Services Reason for consultation: chf, medication optimization DS: Diagnosis Discharge Diagnosis (1) Acute exacerbation of CHF (congestive heart failure): Status: Acute (2) Chronic HFrEF (heart failure with reduced ejection fraction): Status: Acute (3) Ischemic cardiomyopathy: Status: Acute DS: Summary Hospital Course Hospital Course: From the history and physical by the admitting hospitalist, DAHIANA Tomas, 07/02/23: 88-year-old male with history of noninsulin dependent type 2 diabetes, hypertension, hyperlipidemia, alcohol use disorder (consumes 2-3 beers daily last drink 2 weeks ago per son) presented to the ED earlier today with his son for evaluation of dyspnea. He has been reporting progressively worsening dyspnea both at rest and with exertion ongoing for 2 weeks, worst this morning prompting him to present to the ED for evaluation. Has chronic orthopnea, no PND. Last echo 03/14 showed EF 35-40%. Was seen in the ED about 3 weeks ago and was started on lasix 20mg daily due to bilateral pleural effusions but he is no longer taking this. Also recently seen in ED for UTi (UC +klebsiella sensitive to ctx) and completed cefuoxime this morning. Has had intermittent non productive cough ongoing x several days. No fevers, chills, st, congestion, abd pain,n/v/d, urinary symptoms, lightheadedness, palpitations, chest pain. On arrival, pt tachycardic to 105. No hypertension or hypoxia. No fevers. No leukocytosis, stable normocytic anemia. Renal function electrolyte levels normal. BNP 840 (was 607 06/14), trop 20. Negative for COVID-19, influenza, RSV. Chest x-ray shows bilateral pleural effusions with suggestion of patchy alveolar opacities, consider pneumonia. EKG shows sinus tachycardia, rate 105, nonspecific T-wave abnormality unchanged from prior EKGs. In the ED, given 20mg lasix. He was admitted to the hospitalist service and given IV diuresis. Cardiology was consulted. Echocardiogram showed severe LV systolic dysfunction, which is new for him. There appeared to be LAD-territory regional wall motion abnormalities, suggestive of ischemic cardiomopathy from underlying coronary artery disease. Outpatient cardiac catheterization was recommended. He will follow up with Cardiology in 1 week. In the meanwhile, he was started on aspirin 81 mg daily and simvastatin was intensified to atorvastatin 40 mg qhs. Lisinopril was changed to valsartan 20 mg bid with plan for eventual conversion to Entresto. He was also started on carvedilol 3.125 mg bid. Furosemide 20 mg was also started. VNA services were arranged for CHF teaching. Time Attestation Discharge Coordination Time (in mins): 40 Quality: Safe Use of Opioids Does Pt have an Active Cancer Diagnosis on the Problem List?: No Quality: Stroke Does the patient have a stroke diagnosis?: No Physical Exam Vital Signs: Vital Signs: Last Vital Signs Temp 97.2 F 07/03/23 07:58 Pulse 89 07/03/23 07:58 Resp 19 07/03/23 07:58 BP 117/75 07/03/23 07:58 Pulse Ox 94 07/03/23 07:58 O2 Del Method Room Air 07/03/23 07:58 O2 Flow Rate 94 07/02/23 14:00 BMI result Body Mass Index 24.2 Gen: in no acute distress HEENT: sclera anicteric, moist mucus membranes Neck: supple Lungs: clear to auscultation bilaterally Heart: regular rate and rhythm, no murmurs Abd: soft, non-tender, non-distended Ext: no edema Skin: warm/well-perfused Neuro: alert and oriented x3, no focal findings Psych: appropriate affect DS: Data Data Completed and Pending Completed studies during hospitalization [Text1]: Laboratory Results WBC 9.1 X10*3/uL (4.8-10.8) 07/03/23 06:32 RBC 4.23 X10*6/uL (4.60-5.80) L 07/03/23 06:32 Hgb 12.3 g/dl (14.0-18.0) L 07/03/23 06:32 Hct 37.9 % (42.0-52.0) L 07/03/23 06:32 MCV 89.6 fL (80.0-98.0) 07/03/23 06:32 MCH 29.1 pg (27.0-33.0) 07/03/23 06:32 MCHC 32.5 g/dl (31.0-36.0) 07/03/23 06:32 RDW 13.9 % (11.0-16.0) 07/03/23 06:32 Plt Count 348 X10*3/uL (160-400) 07/03/23 06:32 MPV 10.5 fL (9.4-12.4) 07/03/23 06:32 Immature Gran % (Auto) 0.3 % (0.0-0.4) 07/03/23 06:32 Neut % (Auto) 81.1 % (45-73) H 07/03/23 06:32 Lymph % (Auto) 10.6 % (20-40) L 07/03/23 06:32 Allen % (Auto) 6.3 % (2-11) 07/03/23 06:32 Eos % (Auto) 1.3 % (0-4) 07/03/23 06:32 Baso % (Auto) 0.4 % (0-2) 07/03/23 06:32 Lymph # (Auto) 1.0 X10*3/uL (1.2-4.9) L 07/03/23 06:32 [place] # (Auto) 0.6 X10*3/uL (0.1-1.2) 07/03/23 06:32 Eos # (Auto) 0.1 X10*3/uL (0.0-0.4) 07/03/23 06:32 Baso # (Auto) 0.0 X10*3/uL (0.0-0.2) 07/03/23 06:32 Abs Immat Gran (auto) 0.03 X10*3/uL (0.00-0.03) 07/03/23 06:32 Absolute Neuts (auto) 7.3 x10*3/uL (2.0-8.3) 07/03/23 06:32 Absolute Nucleated RBC 0.000 X10*3/uL (0.0-0.012) 07/03/23 06:32 Nucleated RBC % (auto) 0.0 /100WBC (0.0-0.2) 07/03/23 06:32 VBG pH 7.40 (7.32-7.43) 07/02/23 13:57 VBG pCO2 39 mmHg 07/02/23 13:57 VBG pO2 41 mmHg 07/02/23 13:57 VBG HCO3 24 mmol/L (22-26) 07/02/23 13:57 VBG O2 Saturation 63.0 % 07/02/23 13:57 VBG Base Excess 0.1 mmol/L 07/02/23 13:57 Sodium 140 mmol/L (135-145) 07/03/23 06:32 Potassium 3.5 mmol/L (3.3-5.1) 07/03/23 06:32 Chloride 105 mmol/L (96-108) 07/03/23 06:32 Carbon Dioxide 25 mmol/L (22-29) 07/03/23 06:32 Anion Gap 14 (12-20) 07/03/23 06:32 BUN 14 mg/dL (9-16) 07/03/23 06:32 Creatinine 0.86 mg/dL (0.5-1.4) 07/03/23 06:32 Estim Creat Clear Calc 66.4 07/03/23 06:32 Estimated GFR > 60 07/03/23 06:32 POC Glucose 172 mg/dL (60-115) H 07/03/23 11:14 Random Glucose 186 mg/dL (60-115) H 07/03/23 06:32 Calcium 9.7 mg/dL (8.4-10.2) 07/03/23 06:32 Troponin I High Sens 20.6 ng/L (<3.5-35.0) 07/02/23 13:55 B-Natriuretic Peptide 918 pg/mL (<100) H 07/03/23 06:32 Procalcitonin 0.02 ng/mL 07/03/23 06:32 Influenza Type A (PCR) NEGATIVE (Negative) 07/02/23 13:40 Influenza Type B (PCR) NEGATIVE (Negative) 07/02/23 13:40 RSV RNA Qual (PCR) NEGATIVE (Negative) 07/02/23 13:40 SARS-CoV-2 RNA (RT-PCR) NEGATIVE (Negative) 07/02/23 13:40 Impressions Chest X-Ray 07/02/23 13:45 IMPRESSION: Bilateral pleural effusions with a suggestion of patchy alveolar opacities. Pneumonia to be considered. Chest CT 07/02/23 18:30 IMPRESSION: Moderate to large bilateral pleural effusions, right greater than left. Bilateral pleural calcification. Bilateral lower lobe atelectasis/consolidation, right greater than left. Fleischner guidelines were followed. TTE 07/03/23 1. Mildly dilated left ventricle with severely reduced LV ejection fraction 20 25% with some regional wall motion abnormality in LAD territory 2. Moderate mitral regurgitation 3. Mildly elevated right ventricular systolic pressure 4. Trivial pericardial effusion Discharge Plan Discharge Anticipated Discharge Date/Time: 07/03/23 11:23 Patient Disposition: Home Health Service Discharge Diagnosis: CHF exacerbation Heart failure with reduced ejection fraction Ischemic cardiomyopathy Referrals: Dimitri Wilson MD [Primary Care Provider] - 1 Week Yosef Cuello MD [Physician] - 2 Weeks Discharge Medications: New carvedilol 3.125 mg tablet 3.125 mg PO BID Qty: 60 0RF Rx Instructions: must administer with a meal/food valsartan 40 mg tablet 20 mg PO BID Qty: 30 0RF furosemide 20 mg tablet 20 mg PO QAM Qty: 30 0RF aspirin 81 mg tablet,chewable 81 mg PO DAILY Qty: 30 0RF atorvastatin 40 mg tablet 40 mg PO BEDTIME Qty: 30 0RF Continued (DME) FreeStyle Lite Strips Strip See Rx Instructions .Route Qty: 100 8RF Rx Instructions: to check blood sugars once a day (DME) blood-glucose meter [Accu-Chek Guide Glucose Meter] Misc See Rx Instructions .Route Qty: 1 0RF Rx Instructions: As directed (DME) blood-glucose meter [FreeStyle Lite Meter] Kit See Rx Instructions .ROUTE .COMPLEX Qty: 1 0RF Dose Instruction: USE DIRECTED Rx Instructions: USE DIRECTED glyburide 2.5 mg tablet 2.5 mg PO BID Qty: 60 4RF metformin 500 mg tablet 1,000 mg PO BID 30 Days Qty: 120 0RF Discontinued simvastatin 20 mg tablet 20 mg PO DAILY Qty: 90 0RF lisinopril 20 mg tablet 20 mg PO DAILY Qty: 90 4RF Discharge Orders: Discharge Order (Routine); Ordered 07/03/23 Ordered By: Isela Hyman Diet: low-sodium Activity on Discharge: As tolerated Stand Alone Forms: Patient Portal Discharge page Care Plan Goals: heart health Health Concerns: CHF exacerbation Heart failure with reduced ejection fraction Ischemic cardiomyopathy Plan of Treatment: Start furosemide 20 mg once daily in the morning Start carvedilol 3.125 mg twice daily Change lisinopril to valsartan 20 mg twice daily Change simvastatin to atorvastatin 40 mg every night Start aspirin 81 mg daily Low-sodium diet: less than 2000 mg of sodium daily. Weigh yourself daily and call your doctor if your weight goes up by more than 3 lb/day or 5 lb/week. Follow up with [facility] Cardiology in 2 weeks. They will arrange outpatient cardiac catheterization. Please follow up with your primary care doctor within 1 week. Return to the hospital if you experience recurrent or worsening symptoms. Assessment: See Discharge Summary.
--- NOTE | 2023-07-03 11:32 | W.MHC.F2F ---
Service Date Service Date: 07/03/23 Encounter Date of encounter: 07/03/23 Reasons for Services Signs and symptoms assessed: CHF Reason for detention: medication management, medication treatment and teach disease management MD Overseeing Care: Dimitri Wilson Homebound: Leaving the home is medically contraindicated at this time without the asist of a device and/or another person due th the listed conditions above and below. Reason homebound: weakness related to hospital stay Certification: Based on the above findings, I certify that this patient is confined to the home and needs intermittent detention care, physical therapy and/or speech therapy, or continues to need occupational therapy. The patient is under my care, and I have initiated the establishment of the plan of care. The patient will be followed by a physician who will periodically review the plan of care. Time Spent With Patient Time: Total time managing care of this patient today ____ minutes.
[2023-07-03 11:33] LABS: Glucose, Whole Blood 172 mg/dL (60-115)
[2023-07-03 11:39] VITALS: PULSE 100; RESP 19; TEMP 36.2; O2SAT 96
--- NOTE | 2023-07-03 11:53 | MHC.CM.ED ---
Received notification from Dr Hyman that patient will be d/c'd and will need VNA for retirement. [facility] is able to accept patient. Family will transport patient home.
== END 2023-07-03 12:43 | disposition home health service (06) | DRG 291 ==
LOC: HO.ED 14:32 → HO.EDOVER 16:27
PROVIDERS: Hospitalist; Admitting Provider Physician Assistant; Emergency Provider Student in an Organized Health Care Education/Training Program; PCP Internal Medicine; Visit Provider Family Medicine
DX: I11.0 Hypertensive heart disease with heart failure (principal); I50.23 Acute on chronic systolic (congestive) heart failure; I25.5 Ischemic cardiomyopathy; E78.5 Hyperlipidemia, unspecified; E11.9 Type 2 diabetes mellitus without complications; Z20.822 Contact with and (suspected) exposure to COVID-19; Z79.82 Long term (current) use of aspirin; Z79.84 Long term (current) use of oral hypoglycemic drugs; Z79.899 Other long term (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
CPT/HCPCS: 0241U; 36415; 71045; 71250; 80048; 82803; 82947; 83880; 84145; 84484; 85025; 93005; 93306; 99285; J1650; J1940; Q9957

== ENCOUNTER → 2023-07-02 13:17 | Outpatient (BNV) | payer MEDICARE, OTHER, SELFPAY | PROVIDERS: Admitting Provider Physician Assistant; Emergency Provider Student in an Organized Health Care Education/Training Program; PCP Internal Medicine; Visit Provider Internal Medicine Cardiovascular Disease | DX: R06.02 Shortness of breath (principal) | CPT/HCPCS: 93010 ==

== ENCOUNTER 2023-07-02 16:02 | Outpatient (BNV) | payer MEDICARE, OTHER, SELFPAY | END 2023-07-03 07:00 | PROVIDERS: Admitting Provider Physician Assistant; Emergency Provider Student in an Organized Health Care Education/Training Program; PCP Internal Medicine; Visit Provider Internal Medicine Cardiovascular Disease | DX: I34.0 Nonrheumatic mitral (valve) insufficiency (principal); I36.1 Nonrheumatic tricuspid (valve) insufficiency | CPT/HCPCS: 93306 ==

== ENCOUNTER → 2023-07-02 16:02 | Outpatient (BNV) | payer MEDICARE, OTHER, SELFPAY | PROVIDERS: Admitting Provider Physician Assistant; Emergency Provider Student in an Organized Health Care Education/Training Program; PCP Internal Medicine; Visit Provider Family Medicine | DX: I50.9 Heart failure, unspecified (principal) | CPT/HCPCS: 99222; 99239; G0180 ==

== ENCOUNTER → 2023-07-02 16:02 | Outpatient (BNV) | payer MEDICARE, OTHER, SELFPAY | PROVIDERS: Admitting Provider Physician Assistant; Emergency Provider Student in an Organized Health Care Education/Training Program; PCP Internal Medicine; Visit Provider Internal Medicine Cardiovascular Disease | DX: I50.9 Heart failure, unspecified (principal) | CPT/HCPCS: 99222 ==

== ENCOUNTER 2023-07-09 07:53 | Outpatient (AMB) | payer MEDICARE, OTHER, SELFPAY ==
[2023-07-09 08:55] VITALS: BP 90/64; PULSE 83; BMI 23.6
--- NOTE | 2023-07-09 08:55 | A.OFFVIS_ITS ---
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 Allergies No Known Allergies [No Known Allergies*] Allergy (Verified 07/09/23 08:57) Medication List - Last Reconciled 07/09/23 by SCOOTER Loera aspirin 81 mg PO DAILY atorvastatin 40 mg PO BEDTIME blood sugar diagnostic (FreeStyle Lite Strips) to check blood sugars once a day blood-glucose meter (FreeStyle Lite Meter kit) USE DIRECTED blood-glucose meter (Accu-Chek Guide Glucose Meter) As directed carvedilol 3.125 mg PO BID furosemide 20 mg PO QAM glyburide 2.5 mg PO BID metformin 1,000 mg (2 x 500 mg) PO BID 30 days HPI follow-up [facility] dc(cath 07/10,instructions w/ BW) HPI Details Jeet is an 88-year-old male with past medical history of hypertension, hyperlipidemia, diabetes, newer finding of cardiomyopathy, congestive heart failure who was recently admitted to [facility] with shortness of breath, heart failur e. Echocardiogram had shown further reduction in EF and wall motion abnormality suggesting CAD. Outpatient cardiac catheterization was planned. Today he reports that he has been feeling generally well since his hospital discharge last week. He does have some shortness of breath with exertion. He denies PND, orthopnea or edema. No chest discomfort at rest or with activity. No heart palpitations, lightheadedness, presyncope, syncope. He is taking all meds as directed. He is aware of the plan for cardiac catheterization and is agreeable to proceed. [facility] Medical History HFrEF (heart failure with reduced ejection fraction) Hyperlipidemia Alcohol abuse Diabetes mellitus Hypertension Surgical History History of hernia repair Family History Father Liver problem Mother Past heart attack Brother Cancer Sister Cancer Social History Housing: House Unable to assess alcohol history related to: Unknown Alcohol intake: current Alcohol intake frequency: does not drink Alcohol type: beer Patient Tobacco Use Status: Never used Tobacco e-Cigarette/Vaping Use: Never Used Second Hand Smoke Exposure: No service: Yes Current occupational status: retired Cognitive needs: No Hearing needs: No Vision needs: Yes (reading glasses) Review of Systems Const All systems reviewed & are unremarkable except as noted in HPI and below Reports fatigue and Reports lethargy ENT Denies dizziness Card Denies chest pain, Denies chest pain at rest, Denies chest pain with activity, Denies rapid heart rate, Denies pedal edema, Denies edema, Denies leg edema, Denies lightheadedness, Denies palpitations, Denies dyspnea, Denies dyspnea on exertion and Denies orthopnea Resp Denies cough, Denies dyspnea and Denies dyspnea on exertion GI Denies hematochezia and Denies change in stool character Musc Denies abnormal gait, Denies limited range of motion, Denies muscle cramps, Denies muscle weakness, Denies numbness, Denies radiating pain into limb, Denies stiffness and Denies tingling Neuro Denies abnormal gait, Denies dizziness, Denies numbness and Denies tingling Endo Reports fatigue and Denies palpitations Physical Exam Vital Signs: Last Vital Signs Pulse 83 07/09/23 08:55 BP 90/64 07/09/23 08:55 BMI result Body Mass Index 23.6 Const General: cooperative, healthy appearing, comfortable and no acute distress Orientation/consciousness: patient oriented x3 Neck Neck: Yes normal visual inspection and Yes no JVD Resp Effort & Inspection: normal respiratory effort Auscultation: clear to auscultation bilaterally, no crackles, no rales, no rhon chi and no wheezes Cardio Jugular venous distension: no JVD Rate: regular rate Rhythm: regular rhythm Heart sounds: S1 normal heart sound present, S2 normal heart sound present, no murmurs and no rubs Neuro General: patient oriented x3 Extrem General: Yes normal to inspection, No no pedal edema and No calf tenderness Psych Appearance: grossly normal Mental Status: mental status grossly normal Speech and movement: Normal speech and movement present Assessment & Plan Assessment & Plan (1) Ischemic cardiomyopathy: Code(s): I25.5 - Ischemic cardiomyopathy Plan: Echocardiogram done 2022 for symptom of fatigue showed EF 45%. He had no heart failure symptoms at that time. He was seen in the [facility] emergency room on 06/14 2023 with shortness of breath, small effusion and elevated BNP. He was given IV Lasix followed by a prescription for p.o. Lasix. He signed out. He then was readmitted to [facility] on 07/02/2023 with shortness of breath and treated for decompensated heart failure. A CT scan of the chest showed [id number] pleural effusions, right greater than left, bilateral low lower lobe atelectasis/consolidation. He was treated for pneumonia as well. He was diuresed and sent home with Lasix 20 mg daily. His echocardiogram had shown EF down to 20-25%, wall motion abnormalities suggesting coronary artery disease, ischemic cardiomyopathy. Today he reports his breathing has been generally well since his hospital discharge. He does have some shortness of breath with activity. He states he can sleep with 1 pillow. He does not appear fluid overloaded on exam. I do hear good aeration throughout lung ziegler. He is scheduled for a cardiac catheterization on 07/11/2023. Directions and instructions given to him and explained in detail. He states understanding and is agreeable to this plan. No medication changes made today. He will continue on valsartan and carvedilol for neurohormonal modulation. Continue Lasix. Continue aspirin and atorvastatin. Cardiology follow-up will be 2 weeks post cardiac catheterization. (2) Acute exacerbation of CHF (congestive heart failure): Code(s): I50.9 - Heart failure, unspecified Plan: Recently admitted to [facility] with Congestive heart failure as above. He does not appear fluid overloaded on exam today. He continues on his Lasix 20 mg daily. Last labs done 07/03/2023 showed BNP 918, creatinine 0.86. I laid him on the exam table with the flat, 1 pillow and he states that breathing was comfortable. His only issue was neck discomfort. (3) Hypertension: Code(s): I10 - Essential (primary) hypertension Plan: Running on low side today, asymptomatic. No med changes made. (4) Hospital discharge follow-up: Code(s): Z09 - Encounter for follow-up examination after completed treatment for conditions other than malignant neoplasm Plan: As above. Plan Time spent on chart review, documentation, interview and assessment Coding Level of Care Code Est Pt Level 4 (07695) Diagnoses Ischemic cardiomyopathy I25.5 Acute exacerbation of CHF (congestive heart failure) I50.9 Hypertension I10 Hospital discharge follow-up Z09 Time Spent (min) 28
== END 2023-07-09 09:22 | disposition home or self-care (01) ==
PROVIDERS: PCP Internal Medicine; Visit Provider Nurse Practitioner Family
DX: I25.5 Ischemic cardiomyopathy (principal); I50.9 Heart failure, unspecified; I10 Essential (primary) hypertension; Z09 Encounter for follow-up examination after completed treatment for conditions other than malignant neoplasm
CPT/HCPCS: 99214

== ENCOUNTER → 2023-07-09 07:53 | Outpatient (BNVA) | payer MEDICARE, OTHER, SELFPAY | PROVIDERS: PCP Internal Medicine; Visit Provider Nurse Practitioner Family | DX: I25.5 Ischemic cardiomyopathy (principal); I11.0 Hypertensive heart disease with heart failure; I50.9 Heart failure, unspecified | CPT/HCPCS: 99212 ==

== ENCOUNTER → 2023-07-11 23:59 | Outpatient (BNV) | payer MEDICARE, OTHER, SELFPAY | PROVIDERS: PCP Internal Medicine; Visit Provider Internal Medicine Cardiovascular Disease | DX: I20.89 Other forms of angina pectoris (principal); I42.9 Cardiomyopathy, unspecified; I50.20 Unspecified systolic (congestive) heart failure | CPT/HCPCS: 93458; 99152 ==

== ENCOUNTER 2023-07-18 14:27 | Outpatient (AMB) | payer MEDICARE, OTHER, SELFPAY ==
[2023-07-18 14:46] VITALS: BP 90/62; PULSE 82; BMI 23.2
--- NOTE | 2023-07-18 14:46 | MHC.OFFVIS ---
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 Allergies No Known Allergies [No Known Allergies*] Allergy (Verified 07/18/23 14:48) Medication List - Last Reconciled 07/18/23 by Sabrina Hinds, NOEL-C aspirin 81 mg PO DAILY atorvastatin 40 mg PO BEDTIME blood sugar diagnostic (FreeStyle Lite Strips) to check blood sugars once a day blood-glucose meter (FreeStyle Lite Meter kit) USE DIRECTED blood-glucose meter (Accu-Chek Guide Glucose Meter) As directed carvedilol 3.125 mg PO BID furosemide 20 mg PO QAM glyburide 2.5 mg PO BID metformin 1,000 mg (2 x 500 mg) PO BID 30 days HPI 1 week s/p cath HPI Details Jeet is an 88-year-old male with past medical history of hypertension, hyperlipidemia, diabetes, newer finding of cardiomyopathy, congestive heart failure who was recently admitted to [facility] with shortness of breath, heart failure. Echocardiogram had shown further reduction in EF and wall motion abnormality suggesting CAD. Outpatient cardiac catheterization was completed and he now presents for follow-up. Today he reports he has generally been doing well. He has some mild shortness of breath with exertion. He denies PND, orthopnea or edema. No chest discomfort at rest or with activity. No heart palpitations, lightheadedness, presyncope, syncope, falls. Right radial catheterization site is feeling good. Taking meds as directed. [facility] Medical History HFrEF (heart failure with reduced ejection fraction) Hyperlipidemia Alcohol abuse Diabetes mellitus Hypertension Surgical History (Updated 07/18/23 @ 16:39 by Sabrina Hinds, NOEL-C) History of cardiac cath History of hernia repair Family History Father Liver problem Mother Past heart attack Brother Cancer Sister Cancer Social History Housing: House Unable to assess alcohol history related to: Unknown Alcohol intake: current Alcohol intake frequency: does not drink Alcohol type: beer Patient Tobacco Use Status: Never used Tobacco e-Cigarette/Vaping Use: Never Used Second Hand Smoke Exposure: No service: Yes Current occupational status: retired Cognitive needs: No Hearing needs: No Vision needs: Yes (reading glasses) Review of Systems Const All systems reviewed & are unremarkable except as noted in HPI and below Reports fatigue and Reports lethargy ENT Denies dizziness Card Denies chest pain, Denies chest pain at rest, Denies chest pain with activity, Denies rapid heart rate, Denies pedal edema, Denies edema, Denies leg edema, Denies lightheadedness, Denies palpitations, Denies dyspnea, Reports dyspnea on exertion and Denies orthopnea Resp Denies cough, Denies dyspnea and Reports dyspnea on exertion GI Denies hematochezia and Denies change in stool character Musc Details: right radial cath site feels good Denies abnormal gait, Denies limited range of motion, Denies muscle cramps, Denies muscle weakness, Denies numbness, Denies radiating pain into limb, Denies stiffness and Denies tingling Neuro Denies abnormal gait, Denies dizziness, Denies numbness and Denies tingling Endo Reports fatigue and Denies palpitations Physical Exam Vital Signs: Last Vital Signs Pulse 82 07/18/23 14:46 BP 90/62 07/18/23 14:46 BMI result Body Mass Index 23.2 Const General: cooperative, healthy appearing, comfortable and no acute distress Orientation/consciousness: patient oriented x3 Neck Neck: Yes normal visual inspection and Yes no JVD Resp Effort & Inspection: normal respiratory effort Auscultation: clear to auscultation bilaterally, no crackles, no rales, no rhonchi and no wheezes Cardio Jugular venous distension: no JVD Rate: regular rate Rhythm: regular rhythm Heart sounds: S1 normal heart sound present, S2 normal heart sound present, no murmurs and no rubs Neuro General: patient oriented x3 Extrem Other: right radial pulse easily palpable, right hand assessment normal. General: Yes normal to inspection, No no pedal edema and No calf tenderness Psych Appearance: grossly normal Mental Status: mental status grossly normal Speech and movement: Normal speech and movement present Assessment & Plan Assessment & Plan (1) Ischemic cardiomyopathy: Code(s): I25.5 - Ischemic cardiomyopathy Plan: Echocardiogram done 02/2023 for symptom of fatigue showed EF 45%. He had no heart failure symptoms at that time. He was seen in the [facility] emergency room on 06/14/2023 with shortness of breath, small effusion and elevated BNP. He was given IV Lasix followed by a prescription for p.o. Lasix. He signed out. He then was readmitted to [facility] on 07/02/2023 with shortness of breath and treated for decompensated heart failure. A CT scan of the chest showed [id number] pleural effusions, right greater than left, bilateral low lower lobe atelectasis/consolidation. He was treated for pneumonia as well. He was diuresed and sent home with Lasix 20 mg daily. His echocardiogram had shown EF down to 20-25%, wall motion abnormalities suggesting coronary artery disease, ischemic cardiomyopathy. He underwent cardiac catheterization on 07/11/2023 showing ostial occlusion of the LAD with [id number] and [id number] collaterals, no significant disease elsewhere. Discussed with Dr. Cuello today. He would like a PET scan of the heart to assess viability of the LAD territory. PCI of the LAD can be considered if the muscle is viable. Spent time reviewing this in detail with patient today. He is agreeable to the PET scan. Today he reports some shortness of breath with activity which is not new. He denies chest discomfort at rest or with activity. He has no signs of decompensated heart failure. No medication changes made today. He will continue on valsartan and carvedilol for neurohormonal modulation. Continue Lasix. Continue aspirin and atorvastatin. Plan to call him with PET scan results and plan of care once known. Cardiology follow-up will be 2-3 months, sooner if needed (2) Acute exacerbation of CHF (congestive heart failure): Code(s): I50.9 - Heart failure, unspecified Plan: Recently admitted to [facility] with Congestive heart failure as above. He does not appear fluid overloaded on exam today. He continues on his Lasix 20 mg daily. Last labs done 07/03/2023 showed BNP 918, creatinine 0.86. Continue current management (3) Hypertension: Code(s): I10 - Essential (primary) hypertension Plan: Running on low side today, asymptomatic. No med changes made. (4) History of cardiac cath: Comment: 07/11/2023, left main mild disease at the ostium, lad ostial occlusion with [id number] and [id number] collaterals, left circumflex mild luminal irregularities, RCA minimal luminal irregularities Code(s): Z98.890 - Other specified postprocedural states Plan: Right radial catheterization site well healed Plan Time spent on chart review, documentation, interview and assessment Coding Level of Care Code Est Pt Level 4 (86781) Diagnoses Ischemic cardiomyopathy I25.5 Acute exacerbation of CHF (congestive heart failure) I50.9 Hypertension I10 History of cardiac cath Z98.890 Time Spent (min) 35
== END 2023-07-18 15:23 | disposition home or self-care (01) ==
PROVIDERS: PCP Internal Medicine; Visit Provider Nurse Practitioner Family
DX: I25.5 Ischemic cardiomyopathy (principal); I50.9 Heart failure, unspecified; I10 Essential (primary) hypertension; Z98.890 Other specified postprocedural states
CPT/HCPCS: 99214

== ENCOUNTER → 2023-07-18 14:27 | Outpatient (BNVA) | payer MEDICARE, OTHER, SELFPAY | PROVIDERS: PCP Internal Medicine; Visit Provider Nurse Practitioner Family | DX: I25.5 Ischemic cardiomyopathy (principal); I11.0 Hypertensive heart disease with heart failure; I50.9 Heart failure, unspecified; Z98.890 Other specified postprocedural states | CPT/HCPCS: 99212 ==

== ENCOUNTER 2023-08-18 15:25 | Emergency (ER) | payer MEDICARE, SELFPAY ==
[2023-08-18 15:30] VITALS: BP 107/59; PULSE 92; RESP 16; TEMP 36.4; O2SAT 94; BMI 23.6
[2023-08-18 15:51] LABS: MANUAL DIFF FLAG NO
[2023-08-18 15:53] LABS: Basophils Absolute Auto 0.1 X10*3/uL (0.0-0.2); Basophils Percent Auto 0.5 % (0-2); Eosinophils Absolute Auto 0.2 X10*3/uL (0.0-0.4); Eosinophils Percent Auto 2.2 % (0-4); Hematocrit 31.8 % (42.0-52.0); Hemoglobin 10.7 g/dl (14.0-18.0); Imm Gran Abs Auto 0.05 X10*3/uL (0.00-0.03); Imm Gran Pct Auto 0.5 % (0.0-0.4); Lymphocytes Absolute Auto 1.4 X10*3/uL (1.2-4.9); Mean Corpuscular HGB Conc 33.6 g/dl (31.0-36.0); Mean Corpuscular Hemoglobin 29.6 pg (27.0-33.0); Mean Corpuscular Volume 88.1 fL (80.0-98.0); Mean Platelet Volume 9.5 fL (9.4-12.4); Monocytes Absolute Auto 0.9 X10*3/uL (0.1-1.2); Monocytes Percent Auto 8.7 % (2-11); Neutrophils Percent Auto 75.1 % (45-73); Platelet Count 325 X10*3/uL (160-400); Red Blood Count 3.61 X10*6/uL (4.60-5.80); White Blood Count 10.6 X10*3/uL (4.8-10.8)
[2023-08-18 16:13] LABS: Anion Gap 17 (12-20); Blood Urea Nitrogen 21 mg/dL (9-16); Calcium 9.2 mg/dL (8.4-10.2); Carbon Dioxide 19 mmol/L (22-29); Chloride 105 mmol/L (96-108); Creatinine Clr Calc Pharmacy 58.8; Estimated Glomerular Filt Rate > 60; Glucose Random 196 mg/dL (60-115); Sodium 137 mmol/L (135-145)
--- NOTE | 2023-08-18 16:24 | ED_ITS ---
HPI - Male Genitourinary General Chief complaint: Urogenital-Male Stated complaint: unable to properly void for two days. has to force Time Seen by Provider: 08/18/23 16:10 Source: patient Mode of arrival: ambulatory Limitations: no limitations History of Present Illness HPI Narrative: Patient is a 88 year old assigned male at with a history of CHF, HTN, and DM presenting to the emergency department today with difficulty urinating. Patient states that over the last few days he has had increasing difficulty urinating, feeling like he is forcing himself to go and nothing comes out. Patient denies any dizziness, lightheadedness, abdominal pain, nausea, vomiting, fever, chills, blurry vision, double vision, loss of vision, chest pain, difficulty breathing, shortness of breath, back pain, night sweats, pain with urination, increased urinary frequency, increased urinary urgency, blood in his urine or stool, syncope or a near syncopal episode, recent trauma or falls, bowel incontinence, bladder incontinence, bowel retention, or any other complaints at this time. Relieving factors: none Exacerbating factors: none Related Data Previous Rx's ?Medication ?Instructions ?Recorded blood sugar diagnostic (FreeStyle #100 ea 04/02/22 Lite Strips) blood-glucose meter (Accu-Chek #1 ea 05/24/22 Guide Glucose Meter) blood-glucose meter (FreeStyle #1 ea 06/09/22 Lite Meter kit) glyburide 2.5 mg tablet 2.5 mg PO BID #60 tabs 05/10/23 metformin 500 mg tablet 1,000 mg (2 x 500 mg) PO BID 30 07/24/23 days #120 tabs aspirin 81 mg chewable tablet 81 mg PO DAILY #30 tabs 07/29/23 atorvastatin 40 mg tablet 40 mg PO BEDTIME #30 tabs 07/29/23 carvedilol 3.125 mg tablet 3.125 mg PO BID #60 tabs 07/29/23 furosemide 20 mg tablet 20 mg PO QAM #30 tabs 07/29/23 ciprofloxacin HCl 250 mg tablet 250 mg PO BID #10 tabs 08/12/23 (Cipro) Allergies Allergy/AdvReac Type Severity Reaction Status Date / Time No Known Allergies Allergy Verified 08/18/23 15:30 [No Known Allergies*] Review of Systems 2 Constitutional: Constitutional: Reports no additional constitutional complaints, Denies chills, Denies fever(s) and Denies night sweats Eyes: Eyes: Reports no additional eye complaints, Denies blurry vision, Denies change in vision, Denies diplopia, Denies eye discharge, Denies loss of vision and Denies eye pain ENT: Denies dizziness Cardiovascular: Cardiovascular: Reports no additional cardiovascular complaints, Denies chest pain, Denies lightheadedness, Denies Loss of Consciousness and Denies dyspnea Respiratory: Respiratory: Reports no additional respiratory complaints and Denies dyspnea Gastrointestinal: Gastrointestinal: Reports no additional gastrointestinal complaints, Denies abdominal pain, Denies melena, Denies hematochezia, Denies change in bowel habits and Denies change in stool character Genitourinary: Genitourinary: Reports no additional male genitourinary complaints, Denies hematuria, Denies oliguria, Reports difficulty urinating, Denies dysuria, Denies urinary frequency, Denies urinary hesitancy, Denies urinary incontinence and Reports urinary urgency Comments: urinary retention Musculoskeletal: Musculoskeletal: Reports no additional musculoskeletal complaints, Denies numbness and Denies tingling Neurologic: Denies dizziness, Denies loss of vision, Denies numbness and Denies tingling Psychiatric: Psychiatric: Reports no additional psychiatric complaints Endocrine: Endocrine: Reports no additional endocrine complaints Hematologic/Lymphatic: Hematologic/Lymphatic: Reports no additional hematologic/lymphatic complaints Allergic/Immunologic: Allergic/Immunologic: Reports no additional allergic/immunologic complaints [facility] Past Medical History Attestation statement: The following information was validated with the patient. Source: old records reviewed and nursing notes reviewed Medical History HFrEF (heart failure with reduced ejection fraction) Hyperlipidemia Alcohol abuse Diabetes mellitus Hypertension Surgical History History of cardiac cath History of hernia repair Family History Family History Father Liver problem Mother Past heart attack Brother Cancer Sister Cancer Social History Social History Housing: House Unable to assess alcohol history related to: Unknown Alcohol intake: current Alcohol intake frequency: does not drink Alcohol type: beer Patient Tobacco Use Status: Never used Tobacco e-Cigarette/Vaping Use: Never Used Second Hand Smoke Exposure: No Advance Directives: No Advance Directives Information Provided: No Do you have a plan to hurt others: No Plan service: Yes Current occupational status: retired Cognitive needs: No Hearing needs: No Vision needs: Yes (reading glasses) Physical Exam 2 Vital Signs: Vital Signs: Last Vital Signs Temp 97.8 F 08/18/23 18:34 Pulse 95 08/18/23 18:34 Resp 14 08/18/23 18:34 BP 111/67 08/18/23 18:34 Pulse Ox 96 08/18/23 18:34 O2 Del Method Room Air 08/18/23 18:34 BMI result Body Mass Index 23.6 Const: General: cooperative, no acute distress, alert and awake Nutritional Appearance: well nourished Orientation/consciousness: patient oriented x3 Limitations: no limitations HEENT: Head: Yes normal to inspection and Yes atraumatic Ears: hearing grossly normal bilaterally and external ears normal General nose exam: Normal external nose present, no nasal discharge noted and no epistaxis Face and sinus: Yes normal facial exam, No abrasion and No laceration Mouth: Normal oral and palatal mucosa present, no drooling and no muffled voice Eyes: General: appearance normal, both eyes and all related structures P eriorbital: periorbital findings normal Eyelids: Yes eyelids normal C onjunctivae: conjunctivae normal Pupils: Equal, round and reactive pupils present EOM: EOMs intact bilaterally Neck: Neck: Yes normal visual inspection, Yes full ROM and Yes no lymphadenopathy Chest: Chest palpation & inspection: normal inspection of the chest Resp: Effort & Inspection: normal respiratory effort and able to speak in complete sentences GI: Inspection: Yes normal to inspection Palpation (GI): Soft to palpation, not firm, nontender and no guarding Neuro: General: patient oriented x3 and moves all extremities Cranial nerves: Yes Equal, round and reactive pupils present Cognition (Neuro): n ormal cognition Motor exam (neuro): 5/5 motor strength present throughout Sensory Exam: Normal double simultaneous stimulation for sensation C oordination: [id number] test normal Extrem: General: Yes normal to inspection, Yes full ROM and Yes capillary refill normal Psych: Appearance: grossly normal Mental Status: mental status grossly normal Affect: normal affect Attitude: cooperative Thought process: N ormal thought process present Thought content: Normal thought content present Insight: Good insight present (Psych) Medical Decision Making Medical Decision Making [facility] Narrative: Patient is an 88 year old assigned male at with a history of CHF, HTN, and DM presenting to the emergency department today with urinary retention. Patient's physical exam was unremarkable. Bladder scan of the patient did reveal a total of 589ml in the patient's bladder. Patient's blood work was unremarkable. Patient's urine showed no acute process. Kellogg catheter was inserted by the nurse, without incident. Kellogg draining well. I explained my physical exam findings as well as all test results to the patient. I answered all questions asked by the patient. I stressed the importance of the patient taking his medication as prescribed. I stressed the importance of the patient following up with his primary care provider and a urologist. I stressed the importance of the patient returning to the emergency department immediately if his symptoms were to worsen or if he were to develop any dizziness, shortness of breath, difficulty breathing, chest pain, blurry vision, loss of vision, nausea, vomiting, abdominal pain, fever, chills, back pain, or any other complaints. Patient verbalized agreement and understanding with this treatment plan and discharge. Differential Diagnosis Differential Diagnoses: The differential diagnosis associated with the presentation includes Urinary retention Increased urinary frequency Increased urinary urgency Admission/Observation Consideration of admission/observation: Escalation of care including admission/observation considered Patient would have been admitted to the hospital had his work up had any findings where hospital admission was appropriate and his clinical presentation warranted hospital admission. Lab Data [facility] Lab Attestation statement: I reviewed the patient's lab results. My interpretation of these results are in the [facility] Rationale portion of this note. 08/18/23 15:47 08/18/23 15:47 Labs: Lab Results 08/18/23 08/18/23 Range/Units 15:47 16:52 WBC 10.6 (4.8-10.8) X10*3/uL RBC 3.61 L (4.60-5.80) X10*6/uL Hgb 10.7 L (14.0-18.0) g/dl Hct 31.8 L (42.0-52.0) % MCV 88.1 (80.0-98.0) fL MCH 29.6 (27.0-33.0) pg MCHC 33.6 (31.0-36.0) g/dl RDW 15.0 (11.0-16.0) % Plt Count 325 (160-400) X10*3/uL MPV 9.5 (9.4-12.4) fL Immature Gran % (Auto) 0.5 H (0.0-0.4) % Neut % (Auto) 75.1 H (45-73) % Lymph % (Auto) 13.0 L (20-40) % Pershing % (Auto) 8.7 (2-11) % Eos % (Auto) 2.2 (0-4) % Baso % (Auto) 0.5 (0-2) % Lymph # (Auto) 1.4 (1.2-4.9) X10*3/uL Pershing # (Auto) 0.9 (0.1-1.2) X10*3/uL Eos # (Auto) 0.2 (0.0-0.4) X10*3/uL Baso # (Auto) 0.1 (0.0-0.2) X10*3/uL Abs Immat Gran (auto) 0.05 H (0.00-0.03) X10*3/uL Absolute Neuts (auto) 8.0 (2.0-8.3) x10*3/uL Absolute Nucleated RBC 0.000 (0.0-0.012) X10*3/uL Nucleated RBC % (auto) 0.0 (0.0-0.2) /100WBC Sodium 137 (135-145) mmol/L Potassium 4.0 (3.3-5.1) mmol/L Chloride 105 (96-108) mmol/L Carbon Dioxide 19 L (22-29) mmol/L Anion Gap 17 (12-20) BUN 21 H (9-16) mg/dL Creatinine 0.97 (0.5-1.4) mg/dL Estim Creat Clear Calc 58.8 Estimated GFR > 60 Random Glucose 196 H (60-115) mg/dL Calcium 9.2 (8.4-10.2) mg/dL Urine Color Yellow Urine Appearance Clear Urine pH 5.0 (5.0-9.0) Ur Specific [place] 1.020 (1.005-1.025) Urine Protein Negative (Neg-Trace) mg/dL Urine Glucose (UA) 250 H (Negative) mg/dL Urine Ketones Negative (Negative) mg/dL Urine Blood Small (1+) H (Negative) Urine Nitrite Negative (Negative) Ur Leukocyte Esterase Moderate (2+) H (Negative) Urine RBC 3-5 H (0-2) /HPF Urine WBC 6-10 (0-5) /HPF Ur Squamous Epith Cells 0-2 (0-2) /HPF Urine Bacteria None Seen (None Seen) Hyaline Casts 0-2 (0-2) /LPF Discharge Plan Discharge Clinical Impression: Acute urinary retention Patient Disposition: Home, Self-Care Instructions: Urinary Retention in Men (ED), Kellogg Catheter Placement and Care (ED) Additional Instructions: Follow up with your primary care provider and a urologist. Return to the emergency department immediately if your symptoms worsen or if you develop any dizziness, shortness of breath, difficulty breathing, chest pain, blurry vision, loss of vision, nausea, vomiting, abdominal pain, fever, chills, back pain, or any other complaints. Prescriptions: No Action (DME) FreeStyle Lite Strips Strip See Rx Instructions .Route Qty: 100 8RF Rx Instructions: to check blood sugars once a day (DME) blood-glucose meter [Accu-Chek Guide Glucose Meter] [facility] [place] See Rx Instructions .Route Qty: 1 0RF Rx Instructions: As directed (DME) blood-glucose meter [FreeStyle Lite Meter] Kit See Rx Instructions .ROUTE .COMPLEX Qty: 1 0RF Dose Instruction: USE DIRECTED Rx Instructions: USE DIRECTED glyburide 2.5 mg tablet 2.5 mg PO BID Qty: 60 4RF metformin 500 mg tablet 1,000 mg PO BID 30 Days Qty: 120 0RF aspirin 81 mg tablet,chewable 81 mg PO DAILY Qty: 30 5RF atorvastatin 40 mg tablet 40 mg PO BEDTIME Qty: 30 5RF carvedilol 3.125 mg tablet 3.125 mg PO BID Qty: 60 5RF Rx Instructions: must administer with a meal/food furosemide 20 mg tablet 20 mg PO QAM Qty: 30 5RF ciprofloxacin HCl [Cipro] 250 mg tablet 250 mg PO BID Qty: 10 0RF Referrals: [facility] [Provider Group] (Call to establish and follow up with a urologist. ) Dimitri Wilson MD [Primary Care Provider] - Interventions: ED Discharge Assessment Last Done: 08/18/23 18:34 Discharge Date/Time: 08/18/23 18:36 Print Language: Senegalese
[2023-08-18 16:58] LABS: Appearance Urine Clear; Color Urine Yellow; Glucose Urine UA 250 mg/dL (Negative); Leukocyte Esterase Urine Moderate (2+) (Negative); Nitrite Urine Negative (Negative); UMIC TRIGGER UACC YES; Urine Blood Small (1+) (Negative); Urine Ketones Negative (Negative); Urine Protein Negative (Neg-Trace)
[2023-08-18 17:21] VITALS: BP 117/63; PULSE 93; RESP 18; TEMP 36.6; O2SAT 95
[2023-08-18 17:28] LABS: Bacteria Urine None Seen (None Seen); Hyaline Casts Urine 0-2 /LPF (0-2); Squamous Epithelial Cell Urine 0-2 /HPF (0-2); UACC Culture Trigger YES
[2023-08-18 18:22] VITALS: BP 111/67; PULSE 95; RESP 14; TEMP 36.6; O2SAT 96
[2023-08-18 18:34] VITALS: BP 111/67; PULSE 95; RESP 14; TEMP 36.6; O2SAT 96
== END 2023-08-18 18:36 | disposition home or self-care (01) ==
PROVIDERS: Emergency Provider Internal Medicine; PCP Internal Medicine
DX: R33.9 Retention of urine, unspecified (principal); I10 Essential (primary) hypertension; E11.9 Type 2 diabetes mellitus without complications
CPT/HCPCS: 36415; 51702; 51798; 80048; 81001; 81003; 85025; 87086; 99283; 99284

== ENCOUNTER 2023-08-19 14:08 | Outpatient (AMB) | payer MEDICARE, OTHER, SELFPAY ==
[2023-08-19 14:11] VITALS: BP 100/52; PULSE 80; O2SAT 95; BMI 22.8
--- NOTE | 2023-08-19 14:11 | MHC.PC.OV ---
Vital Signs 08/19/23 14:11 Height 6 ft Weight 168 lb BMI 22.8 BP 100/52 L Blood Pressure Location Lt brachial Position Standing Pulse 80 Pulse Source Pulse Oximeter Pulse Oximetry (%) 95 Oxygen Delivery Method Room Air Intake Visit Reasons: ER Follow up Allergies No Known Allergies [No Known Allergies*] Allergy (Verified 08/19/23 14:11) Medication List - Last Reconciled 08/20/23 by Dimitri Wilson MD aspirin 81 mg PO DAILY atorvastatin 40 mg PO BEDTIME blood sugar diagnostic (FreeStyle Lite Strips) to check blood sugars once a day blood-glucose meter (FreeStyle Lite Meter kit) USE DIRECTED blood-glucose meter (Accu-Chek Guide Glucose Meter) As directed carvedilol 3.125 mg PO BID furosemide 20 mg PO QAM glyburide 2.5 mg PO BID metformin 1,000 mg (2 x 500 mg) PO BID 30 days Tobacco use date assessed: 05/20/23 Fall risk assessment: No Falls in past year Last assessed Fall Risk: 08/19/23 Dental Screening Dental Screen Date: 08/19/23 Did you have a dental visit in the last 12 months?: No Did you have a dental problem in the last 6 months where you did not have access to dental care?: No Was dental information given to patient?: No HPI ER Follow up HPI Details urinary retention; has catheter placed in er [facility] Medical History HFrEF (heart failure with reduced ejection fraction) Hyperlipidemia Alcohol abuse Diabetes mellitus Hypertension Surgical History History of cardiac cath History of hernia repair Family History Father Liver problem Mother Past heart attack Brother Cancer Sister Cancer Social History Housing: House Unable to assess alcohol history related to: Unknown Alcohol intake: current Alcohol intake frequency: does not drink Alcohol type: beer Patient Tobacco Use Status: Never used Tobacco e-Cigarette/Vaping Use: Never Used Second Hand Smoke Exposure: No service: Yes Current occupational status: retired Cognitive needs: No Hearing needs: No Vision needs: Yes (reading glasses) Questionnaire PHQ-9 Over the last 2 weeks, how often have you been bothered by any of the following problems? 1. Little interest or pleasure in doing things: not at all 2. Feeling down, depressed, or hopeless: not at all 3. Trouble falling or staying asleep, or sleeping too much: not at all 4. Feeling tired or having little energy: not at all 5. Poor appetite or overeating: not at all 6. Feeling bad about yourself - or that you are a failure or have let yourself or your family down: not at all 7. Trouble concentrating on things, such as reading the newspaper or watching television: not at all 8. Moving or speaking so slowly that other people could have noticed. Or the opposite - being so fidgety or restless that you have been moving around a lot more than usual: not at all 9. Thoughts that you would be better off or of hurting yourself in some way: not at all Total score: 0 Depression Screening Interpretation: Negative Depression Screening Done: Yes 27995 - PHQ-9 Billing: Yes Source: Developed by Drs. Jeffrey Taylor, Marianne Russo, Radames Marino and colleagues, with an educational puja from [employer]. Thrive Questionnaire Date Thrive assessed: 05/20/23 AUDIT C Alcohol Use Questionnaire (AUDIT-C) 1. How often do you have a drink containing alcohol?: 4 or more times a week 2. How many drinks containing alcohol do you have on a typical day when you are drinking?: 1 or 2 3. How often do you have six or more drinks on one occasion?: Never Total Score: 4 Score Reviewed/Action Taken: Yes NEEL-7 AMB Questionnaire NEEL-7 Date NEEL - 7 assessed: 05/20/23 Source: Developed by Drs. Jeffrey Taylor, Marianne Russo, Radames Marino and colleagues, with an educational puja from [employer]. Review of Systems Const Denies chills, Denies headache(s) and Denies weight loss ENT Denies headache(s) Card Denies chest pain, Denies syncope, Denies irregular heart rhythm and Denies dyspnea Resp Denies chest congestion, Denies cough and Denies dyspnea GI Denies abdominal pain, Denies change in stool character, Denies nausea and Denies vomiting Musc Denies deformity and Denies joint swelling Neuro Denies syncope and Denies headache(s) Physical exam (Primary Care) Vital Signs: Last Vital Signs Pulse 80 08/19/23 14:11 BP 100/52 L 08/19/23 14:11 Pulse Ox 95 08/19/23 14:11 Oxygen Delivery Method Room Air 08/19/23 14:11 BMI result Body Mass Index 22.8 Tobacco/Smoking Status: Tobacco use Status Tobacco use date assessed 05/20/23 08/19/23 14:12 Patient Tobacco Use Status Never used Tobacco 08/19/23 14:12 e-Cigarette/Vaping Use Never Used 08/19/23 14:12 PHQ-9: PHQ-9 Score PHQ-9: Total score 0 08/19/23 14:12 Depression Screening Interpretation: Negative Thrive Assessment: Date of Thrive Assessment Date Thrive assessed 05/20/23 08/19/23 14:12 Const General: cooperative, comfortable, no acute distress and alert Neck Neck: Yes no lymphadenopathy Thyroid: Thyroid normal Resp Effort & Inspection: normal respiratory effort Auscultation: clear to auscultation bilaterally Percussion: percussion normal Cardio Jugular venous distension: no JVD Palpation: normal PMI Rate: regular rate Rhythm: regular rhythm Heart sounds: S1 normal heart sound present and S2 normal heart sound present GI Inspection: Yes normal to inspection Palpation (GI): No hepatosplenomegaly present Skin General skin exam: no rashes or lesions noted Extrem General: Yes no clubbing, cyanosis or edema Assessment and Plan Assessment & Plan (1) Urinary retention: Code(s): R33.9 - Retention of urine, unspecified Plan: has been referred to urology Orders: Referrals Urology Referral R33.9 - Retention of urine, unspecified Coding Level of Care Code Est Pt Level 3 (62489) Diagnoses Urinary retention R33.9
== END 2023-08-19 14:30 | disposition home or self-care (01) ==
PROVIDERS: PCP Internal Medicine; Visit Provider Internal Medicine
DX: R33.9 Retention of urine, unspecified (principal)
CPT/HCPCS: 99213

== ENCOUNTER 2023-08-25 08:23 | Emergency (ER) | payer MEDICARE, OTHER, SELFPAY ==
[2023-08-25 08:26] VITALS: BP 120/60; PULSE 85; RESP 18; TEMP 36; O2SAT 95; BMI 23.7
[2023-08-25 08:44] VITALS: BP 124/75; PULSE 87; RESP 19; TEMP 36.8; O2SAT 96
[2023-08-25 08:50] LABS: Glucose, Whole Blood 125 mg/dL (60-115)
--- NOTE | 2023-08-25 08:54 | ED.MALEGU ---
HPI - Male Genitourinary General Chief complaint: Urogenital-Male Stated complaint: Catheter Leaking Time Seen by Provider: 08/25/23 08:31 Source: patient and old records reviewed Mode of arrival: ambulatory Limitations: no limitations History of Present Illness HPI Narrative: 88 yo male with PMH of ischemic cardiomyopathy, HLD, DM, HTN, just had gifford placed on 08/17 for retention - was not started on flomax comes back today with c/o having urine leaking around his catheter quite a bit. This is only the 2nd gifford he has ever had - first one was several years ago. He has urology appointment on 09/03. He is not on flomax at home. He has no known BPH that he is aware of or prior prostate procedure. MD Complaint: other (gifford problem ) Onset (ago): day(s) (this morning) Duration: constant Location: penis Radiation: penis Severity: mild Relieving factors: none Exacerbating factors: none Context: indwelling catheter Associated symptoms: Reports denies other symptoms Related Data Previous Rx's ?Medication ?Instructions ?Recorded blood sugar diagnostic (FreeStyle #100 ea 04/02/22 Lite Strips) blood-glucose meter (Accu-Chek #1 ea 05/24/22 Guide Glucose Meter) blood-glucose meter (FreeStyle #1 ea 06/09/22 Lite Meter kit) glyburide 2.5 mg tablet 2.5 mg PO BID #60 tabs 05/10/23 metformin 500 mg tablet 1,000 mg (2 x 500 mg) PO BID 30 07/24/23 days #120 tabs aspirin 81 mg chewable tablet 81 mg PO DAILY #30 tabs 07/29/23 atorvastatin 40 mg tablet 40 mg PO BEDTIME #30 tabs 07/29/23 carvedilol 3.125 mg tablet 3.125 mg PO BID #60 tabs 07/29/23 furosemide 20 mg tablet 20 mg PO QAM #30 tabs 07/29/23 tamsulosin 0.4 mg capsule 0.4 mg PO DAILY #5 caps 08/25/23 Allergies Allergy/AdvReac Type Severity Reaction Status Date / Time No Known Allergies Allergy Verified 08/25/23 08:28 [No Known Allergies*] Review of Systems Review of Systems: Constitutional : No Fever, No Chills, No Fatigue ENT/Mouth : No sore throat, No Rhinorrhea Eyes: No Eye Pain, No Swelling, No Redness Cardiovascular : No Chest Pain, No SOB, No Dyspnea on Exertion Respiratory : No Cough, No Sputum Gastrointestinal : No Nausea, No Vomiting, No Diarrhea, No abdominal Pain Genitourinary : No Dysuria, No Urinary Frequency, No Hematuria, Musculoskeletal : No joint pain, No Myalgias, No Joint Swelling Skin : No Skin Lesions, No rash Neuro : No Weakness, No Numbness, No Dizziness, no Headache All other systems reviewed and are negative [facility] Past Medical History Attestation statement: The following information was validated with the patient. Source: old records reviewed Medical History HFrEF (heart failure with reduced ejection fraction) Hyperlipidemia Alcohol abuse Diabetes mellitus Hypertension Surgical History History of cardiac cath History of hernia repair Family History Family History Father Liver problem Mother Past heart attack Brother Cancer Sister Cancer Social History Social History Housing: House Unable to assess alcohol history related to: Unknown Alcohol intake: current Alcohol intake frequency: does not drink Alcohol type: beer Patient Tobacco Use Status: Never used Tobacco e-Cigarette/Vaping Use: Never Used Second Hand Smoke Exposure: No Advance Directives: No Advance Directives Information Provided: Yes Do you have a plan to hurt others: No Plan service: Yes Current occupational status: retired Cognitive needs: No Hearing needs: No Vision needs: Yes (reading glasses) Physical Exam Vital Signs: Vital Signs: Last Vital Signs Temp 98.2 F 08/25/23 08:44 Pulse 87 08/25/23 08:44 Resp 19 08/25/23 08:44 BP 124/75 08/25/23 08:44 Pulse Ox 96 08/25/23 08:44 O2 Del Method Room Air 08/25/23 08:44 BMI result Body Mass Index 23.7 Appearance: Alert. Oriented X3. No acute distress. Eyes: Pupils equal, round and reactive to light. ENT: Pharynx normal. Neck: Normal inspection. Neck supple. CVS: Normal heart rate and rhythm. Pulses normal. Respiratory: No respiratory distress. Breath sounds normal. Abdomen: Soft and non-tender. : clear yellow urine in bag penis appears normal Skin: Skin warm and dry. Normal skin color. Extremities: No lower extremity edema. No calf ttp Neuro: Oriented X 3. No motor deficit. No sensory deficit. Medical Decision Making Medical Decision Making [facility] Narrative: 88 yo male with PMH of ischemic cardiomyopathy, HLD, DM, HTN, here with c/o urine leaking around gifford that has been in for 1 week denies pain, infectious symptoms at this time given 1 week duration and urine leaking around will remove and trial at home x 6 hours. I am going to dose him with flomax and send home with further doses. He is aware of the plan. Differential Diagnosis Differential Diagnoses: The differential diagnosis associated with the presentation includes gifford catheter malfunction Admission/Observation Consideration of admission/observation: Escalation of care including admission/observation considered patient is reliable to voiding trial at home Lab Data [facility] Lab Attestation statement: I reviewed the patient's lab results. Labs: Lab Results 08/25/23 Range/Units 08:47 POC Glucose 125 H (60-115) mg/dL External Record Review External record reviewed: Inpatient record Prescription Management I considered prescription management with: Other Discharge Plan Discharge Clinical Impression: Encounter for Gifford catheter removal Patient Disposition: Home, Self-Care Instructions: Gifford Catheter Removal (DC) Additional Instructions: return for worsening symptoms, unable to urinate for 6 hours, fevers, back pain, bloody clots in urine still follow up with urology Prescriptions: New tamsulosin 0.4 mg capsule 0.4 mg PO DAILY Qty: 5 0RF Rx Instructions: start on 08/25 No Action (DME) FreeStyle Lite Strips Strip See Rx Instructions .Route Qty: 100 8RF Rx Instructions: to check blood sugars once a day (DME) blood-glucose meter [Accu-Chek Guide Glucose Meter] Misc See Rx Instructions .Route Qty: 1 0RF Rx Instructions: As directed (DME) blood-glucose meter [FreeStyle Lite Meter] Kit See Rx Instructions .ROUTE .COMPLEX Qty: 1 0RF Dose Instruction: USE DIRECTED Rx Instructions: USE DIRECTED glyburide 2.5 mg tablet 2.5 mg PO BID Qty: 60 4RF metformin 500 mg tablet 1,000 mg PO BID 30 Days Qty: 120 0RF aspirin 81 mg tablet,chewable 81 mg PO DAILY Qty: 30 5RF atorvastatin 40 mg tablet 40 mg PO BEDTIME Qty: 30 5RF carvedilol 3.125 mg tablet 3.125 mg PO BID Qty: 60 5RF Rx Instructions: must administer with a meal/food furosemide 20 mg tablet 20 mg PO QAM Qty: 30 5RF Print Language: Moroccan
--- NOTE | 2023-08-25 09:06 | PC.NURSE ---
This Rn at bedside, with Provider Christine, removed gifford catheter pt tolerated well. Awaiting new orders. Pt resting quietly, with urinal at bedside.
[2023-08-25] MEDS: Tamsulosin HCL 0.4 MG CAPSULE PO (09:19)
[2023-08-25 09:28] VITALS: BP 119/69; PULSE 97; RESP 16; TEMP 36.8; O2SAT 97
== END 2023-08-25 09:32 | disposition home or self-care (01) ==
PROVIDERS: Emergency Provider Emergency Medicine; PCP Internal Medicine
DX: T83.031A Leakage of indwelling urethral catheter, initial encounter (principal); Y84.6 Urinary catheterization as the cause of abnormal reaction of the patient, or of later complication, without mention of misadventure at the time of the procedure; Y92.9 Unspecified place or not applicable; E11.9 Type 2 diabetes mellitus without complications; I10 Essential (primary) hypertension
CPT/HCPCS: 82947; 99283; 99284

== ENCOUNTER 2023-09-04 08:26 | Outpatient (AMB) | payer MEDICARE, OTHER, SELFPAY ==
--- NOTE | 2023-09-04 08:29 | MHC.OFFVIS ---
Intake Visit Reasons: ER follow up- acute retention Intake Note: New Patient presents for initial visit for retention Urology Medications: none Blood Thinner: aspirin PVR: >999ml's Director Long Term Care Required: No Accompanied by: Self / Same As Patient Allergies No Known Allergies [No Known Allergies*] Allergy (Verified 09/04/23 09:02) Medication List - Last Reconciled 09/04/23 by Yumiko Sharma, ORTHOPEDICS PEDIATRIC PHYSICIAN- aspirin 81 mg PO DAILY atorvastatin 40 mg PO BEDTIME blood sugar diagnostic (FreeStyle Lite Strips) to check blood sugars once a day blood-glucose meter (FreeStyle Lite Meter kit) USE DIRECTED blood-glucose meter (Accu-Chek Guide Glucose Meter) As directed carvedilol 3.125 mg PO BID finasteride 5 mg PO DAILY 90 days furosemide 20 mg PO QAM glyburide 2.5 mg PO BID metformin 1,000 mg (2 x 500 mg) PO BID 30 days tamsulosin 0.4 mg PO DAILY 90 days HPI Comments Details: Jeet is a very pleasant 88-year-old male patient of Dr. Wilson. He has a past medical history of heart failure with reduced ejection fracture, hyperlipidemia, alcohol abuse, diabetes mellitus, and hypertension. He presents to the office today as a new patient for urinary retention. In discussion with the patient today he reports having seeked emergency room care as he was unable to void approximately 1 month ago at which time a catheter was inserted 08/18/23. However it appears in review of patient's chart he returned back to the emergency room demanding catheter removal on 08/25/23 due to leakage around the urinary catheter. In office urinalysis results reviewed with the patient today 1+ leukocytes positive nitrates PVR greater than 999 mL. Discussed at length urinary retention. Discussed potential causes as well as further treatment options. He reports prior to seeking emergency room care approximately 1 month ago he had 1 other episode of urinary retention in his lifetime. He denies having followed up with Urology in the past. He currently denies any bothersome urinary issues or concerns. He believes he has been urinating without troubles. However he does discussed what sounds like overflow incontinence. This was discussed at length. Discussed reinserting catheter and attempting voiding trial in 1 month. He otherwise offers no other issues or concerns at this time. [facility] Medical History HFrEF (heart failure with reduced ejection fraction) Hyperlipidemia Alcohol abuse Diabetes mellitus Hypertension Surgical History History of cardiac cath History of hernia repair Family History Father Liver problem Mother Past heart attack Brother Cancer Sister Cancer Social History Housing: House Unable to assess alcohol history related to: Unknown Alcohol intake: current Alcohol intake frequency: does not drink Alcohol type: beer Patient Tobacco Use Status: Never used Tobacco e-Cigarette/Vaping Use: Never Used Second Hand Smoke Exposure: No service: Yes Current occupational status: retired Cognitive needs: No Hearing needs: No Vision needs: Yes (reading glasses) Review of Systems Const Reports as per HPI Eyes Reports no additional complaints ENT Reports no additional complaints Card Reports as per HPI Resp Reports no additional complaints GI Reports no additional complaints Reports as per HPI Musc Reports no additional complaints Neuro Reports as per HPI Psych Reports as per HPI Endo Reports as per HPI Allen/Lymph Reports no additional complaints Aller/Immun Reports no additional complaints Physical Exam Const General: cooperative, healthy appearing, comfortable, no acute distress, well developed, alert and awake Orientation/consciousness: patient oriented x3 Limitations: no limitations HEENT Head: Yes normal to inspection, Yes normocephalic and Yes atraumatic Ears: hearing grossly normal bilaterally Eyes General: appearance normal, both eyes and all related structures Neck Neck: Yes normal visual inspection and Yes trachea midline Chest Chest palpation & inspection: normal inspection of the chest Resp Effort & Inspection: normal respiratory effort and able to speak in complete sentences Cardio Rate: regular rate GI Inspection: Yes normal to inspection General: Yes no CVA tenderness Back/Spine/Pelvis Back: no CVA tenderness Skin General skin exam: no rashes or lesions noted Neuro General: patient oriented x3 Extrem General: Yes normal to inspection Psych Appearance: grossly normal and well kempt Mental Status: mental status grossly normal Speech and movement: Normal speech and movement present and Clear speech present Affect: normal affect Attitude: cooperative Thought process: Normal thought process present Thought content: Normal thought content present Insight: Fair insight present (Psych) Judgement: Fair judgement present (Psych) Office Procedures Bladder/Catheter Procedure Details: Patient presets to office for visit with Yumiko for urinary retention. Per Yumiko insert catheter due to retnetion. 18fr catheter with 10ml balloon blue plug inserted, patient tolerated well. Educated patient on use of blue plug and use of night bag. Patient understood all information 96131-[id number] Temporary Bladder Catheter Procedure code (CPT) selection complete Post Void Residual Post Residual Void Details: >999ml's Post Void Residual (PVR): 999 40773-Vmmm Void Residual by ultrasound Results AMB Urinalysis, Automated UA Leukoctes 70 Gemma/uL Last Edit by C[employer] on 09/04/23 08:47 UA Nitrite Positive Last Edit by Cogn[employer]an on 09/04/23 08:47 UA Urobilinogen 0.2 mg/dL Last Edit by [employer]an on 09/04/23 08:47 UA Protein 15 mg/dL Last Edit by Cogniscan on 09/04/23 08:47 UA pH 6.0 Last Edit by [facility] on 09/04/23 08:47 UA Blood 10 Felipe/uL Last Edit by Cogniscan on 09/04/23 08:47 UA Specific [place] 1.020 Last Edit by Cogniscan on 09/04/23 08:47 UA Ketone Negative Last Edit by Cogniscan on 09/04/23 08:47 UA Bilirubin 0 mg/dL Last Edit by Cogniscan on 09/04/23 08:47 UA Glucose 0 mg/dL Last Edit by Cogniscan on 09/04/23 08:47 Results Reviewed Results Reviewed: Laboratory Last Values Urine pH (Auto) 6.0 09/04/23 08:37 Specific [place] (Auto) 1.020 09/04/23 08:37 Urine Protein (Auto) 15 mg/dL 09/04/23 08:37 Glucose (UA)(Auto) 0 mg/dL 09/04/23 08:37 Urine Ketones (Auto) Negative 09/04/23 08:37 Urine Blood (Auto) 10 Felipe/uL 09/04/23 08:37 Urine Nitrite (Auto) Positive 09/04/23 08:37 Urine Bilirubin (Auto) 0 mg/dL 09/04/23 08:37 Urine Urobilinogen (Auto) 0.2 mg/dL 09/04/23 08:37 Leukocyte Esterase (Auto) 70 Gemma/uL 09/04/23 08:37 Assessment & Plan Assessment & Plan (1) Urinary retention: Code(s): R33.9 - Retention of urine, unspecified Category: Medical (2) Overflow incontinence: Code(s): N39.490 - Overflow incontinence Category: Medical (3) Urinary tract infection: Code(s): N39.0 - Urinary tract infection, site not specified Category: Medical Plan In office urinalysis results reviewed with the patient today; as noted above; will send for urine culture. PVR greater than 999 mL. Nursing in to insert Kellogg. Discussed at length potential causes of urinary retention. Start Flomax and finasteride as prescribed. Discussed possible near future in office cystoscopy for further assessment evaluation. Follow-up with nursing in 1 month for voiding trial. Will obtain retroperitoneal ultrasound and PSA in 3 months. Follow-up with provider in 3 months with imaging and labs to be completed prior; or sooner with any issues, concerns, and or questions. Orders: Orders AMB Urinalysis Automated Today Z13.9 - Encounter for screening, unspecified AMB Post Void Residual by ultrasound Today R33.9 - Retention of urine, unspecified AMB Bladder/Catheter Procedure Today R33.9 - Retention of urine, unspecified Urine Culture Today R33.9 - Retention of urine, unspecified Medications: New finasteride 5 mg PO DAILY 90 tabs 1RF 90 days N40.1 - Benign prostatic hyperplasia with lower urinary tract symptoms, R33.9 - Retention of urine, unspecified Changed From tamsulosin 0.4 mg PO DAILY 7 days 7 caps 0RF R33.9 - Retention of urine, unspecified To tamsulosin 0.4 mg PO DAILY 90 caps 0RF 90 days R33.9 - Retention of urine, unspecified Patient Instructions: The patient had an opportunity to ask questions regarding the treatment plan. All questions were answered. Physical exam, labs, and imaging were discussed and reviewed in detail. As well as risks, benefits, and discussion of treatment choices. No major barriers to understanding were identified. The patient expressed understanding and agreement with the above treatment plan. The patient was made aware they should contact our office by phone for worsening of their current condition, the appearance of new symptoms, or with any questions or concerns. Compliance is encouraged with any medications and follow up testing that is ordered. It is a privilege to be allowed the opportunity to participate in? your urological care.? Again, if you have any questions or concerns If you have any questions or concerns please do not hesitate to contact me. The office is [phone]. This note is constructed using voice recognition software. While every effort has been made to ensure accuracy reactor service operator errors may have been included. Yours sincerely, JOE Gastelum Coding Level of Care Code New Pt Level 4 (09724) Diagnoses Urinary retention R33.9 Overflow incontinence N39.490 Urinary tract infection N39.0 CPT Codes Bladder/Catheter Procedure - CPT: 48489-Agbqwi Temporary Bladder Catheter ([id number]) Post Residual Void - PVR CPT Code: 62782-Qtkh Void Residual by ultrasound ([id number])
== END 2023-09-04 09:04 | disposition home or self-care (01) ==
PROVIDERS: PCP Internal Medicine; Visit Provider Nurse Practitioner Family
DX: R33.9 Retention of urine, unspecified (principal); N39.490 Overflow incontinence; N39.0 Urinary tract infection, site not specified; Z13.9 Encounter for screening, unspecified
CPT/HCPCS: 51702; 99204; 99214

== ENCOUNTER 2023-09-04 08:26 | Outpatient (REF) | payer MEDICARE, SELFPAY | END 2023-09-04 08:27 | disposition home or self-care (01) | LOC: HO.LNP 08:26 | PROVIDERS: PCP Internal Medicine; Visit Provider Nurse Practitioner Family | DX: R33.9 Retention of urine, unspecified (principal); N39.490 Overflow incontinence; N39.0 Urinary tract infection, site not specified | CPT/HCPCS: 51702; 51798; 81003; 87086; 87088; 87186; 99202 ==

== ENCOUNTER → 2023-09-19 11:01 | Outpatient (REF) | payer MEDICARE, SELFPAY ==
--- NOTE | 2023-09-19 11:15 | CA_ITS ---
Acquisition Time: 2023-09-19 10:56:48 Total Exercise Time: 00:12:52 Test Indications: CHF Medications: SEE H Protocol: DOBUTAMINE Max HR: 114 BPM 85% of Pred: 133 BPM Max BP: 104/064 mmHG Max Work Load: 1.0 METS Pharmacological stress test with Dobutamine infusion to max of 20mcg/kg/min, achieving 81% MPHR, and briefly hitting 85% MPHR, without anginal symptoms, with isolated PAC and rare PVC, with low BP at baseline and no significant change during test, with baseline EKG shows T wave abnormality inferiorly and T wave inversions V4-V6 which improves during Dobutamine infusion. There are no ST depressions noted. Echo images obtained by tech at rest, low dose infusion, peak infusion and in recovery. Pt recovered for 14 min and condition remained stable, test completed. Test reviewed with Dr Valentine. Referred By: Yosef Cuello Overread By: KAITLIN PATTERSON
== END ==
LOC: HO.CARD 11:01
PROVIDERS: PCP Internal Medicine; Visit Provider Internal Medicine Cardiovascular Disease
DX: I50.22 Chronic systolic (congestive) heart failure (principal); R53.83 Other fatigue
CPT/HCPCS: 93351; J1250; Q9957

== ENCOUNTER 2023-09-25 10:41 | Emergency (ER) | payer MEDICARE, OTHER, SELFPAY ==
[2023-09-25 10:57] VITALS: BP 110/67; PULSE 88; RESP 16; TEMP 36.4; O2SAT 95; BMI 22.1
--- NOTE | 2023-09-25 10:57 | ED.GENADULT ---
HPI - General Adult General Chief complaint: General Medical Stated complaint: uti Time Seen by Provider: 09/25/23 14:28 Source: patient Mode of arrival: ambulatory Limitations: no limitations History of Present Illness HPI narrative: 88-year-old male past history of urinary retention coronary artery disease ischemic cardiomyopathy hyperlipidemia alcohol abuse CHF diabetes hypertension who presents emergency department multiple complaints states he has not felt well for the past several months woke up today slight confused 30 lb weight loss over the past 2 months. He states he just does not feel like himself he lives with his son and grandson denies any falls injuries chest pain nausea vomiting or diarrhea. He states he has had indwelling Kellogg with the past month has follow up to get it out next week. Related Data Previous Rx's ?Medication ?Instructions ?Recorded blood sugar diagnostic (FreeStyle #100 ea 04/02/22 Lite Strips) blood-glucose meter (Accu-Chek #1 ea 05/24/22 Guide Glucose Meter) blood-glucose meter (FreeStyle #1 ea 06/09/22 Lite Meter kit) glyburide 2.5 mg tablet 2.5 mg PO BID #60 tabs 05/10/23 aspirin 81 mg chewable tablet 81 mg PO DAILY #30 tabs 07/29/23 atorvastatin 40 mg tablet 40 mg PO BEDTIME #30 tabs 07/29/23 carvedilol 3.125 mg tablet 3.125 mg PO BID #60 tabs 07/29/23 furosemide 20 mg tablet 20 mg PO QAM #30 tabs 07/29/23 metformin 500 mg tablet 1,000 mg (2 x 500 mg) PO BID 30 08/25/23 days #120 tabs finasteride 5 mg tablet 5 mg PO DAILY 90 days #90 tabs 09/04/23 tamsulosin 0.4 mg capsule 0.4 mg PO DAILY 90 days #90 caps 09/04/23 sulfamethoxazole 800 1 tab PO BID 10 days #20 tabs 09/07/23 mg-trimethoprim 160 mg tablet (Bactrim DS) cefuroxime axetil 500 mg tablet 500 mg PO BID 7 days #14 tabs 09/25/23 Allergies Allergy/AdvReac Type Severity Reaction Status Date / Time No Known Allergies Allergy Verified 09/25/23 11:01 [No Known Allergies*] [facility] Past Medical History Medical History HFrEF (heart failure with reduced ejection fraction) Hyperlipidemia Alcohol abuse Diabetes mellitus Hypertension Surgical History History of cardiac cath History of hernia repair Family History Family History Father Liver problem Mother Past heart attack Brother Cancer Sister Cancer Social History Social History Housing: House Unable to assess alcohol history related to: Unknown Alcohol intake: current Alcohol intake frequency: does not drink Alcohol type: beer Patient Tobacco Use Status: Never used Tobacco e-Cigarette/Vaping Use: Never Used Second Hand Smoke Exposure: No Advance Directives: No Advance Directives Information Provided: Yes service: Yes Current occupational status: retired Cognitive needs: No Hearing needs: No Vision needs: Yes (reading glasses) Physical Exam ED Vital Signs: Vital Signs - 24 hr 09/25/23 10:57 Temperature 97.6 F Pulse Rate 88 Respiratory Rate 16 Blood Pressure 110/67 Pulse Oximetry 95 Oxygen Delivery Method Room Air BMI result Body Mass Index 22.1 Course Course Course Narrative: This is a rapid medical exam performed by Yasmin Mcdaniels NP: Additional HPI, ROS, PE not included below will be deferred to primary provider. Patient is an 88-year-old male presenting to the ED with complaint of waking with confusion today. States his urologist wants his checked for possible UTI. Hx of frequent UTIs, just treated for one last month. Thirty pound weight loss in the past month. Alert and oriented x 3 in triage. Denies urinary symptoms, fevers, nausea or vomiting. Denies recent fall or other trauma. Plan: UA, labs Reevaluation(s) Reevaluation #1: Labs are all can the patient patient found have slight UTI has follow-up with Urology this next week I will discharge home on cefuroxime patient is okay with the plan. Medical Decision Making Medical Decision Making [facility] Narrative: We will start with fluids patient did have labs which were all unremarkable I will get a urine Differential Diagnosis Differential Diagnoses: The differential diagnosis associated with the presentation includes UTI dehydration electrolyte abnormality NSTEMI Admission/Observation Consideration of admission/observation: Escalation of care including admission/observation considered Consult Healthcare Provider Management of the patient was discussed with: Hospitalist and Rx Specialist Lab Data MDM Lab Attestation statement: I reviewed the patient's lab results. 09/25/23 11:17 09/25/23 11:17 Labs: Lab Results 09/25/23 09/25/23 Range/Units 11:17 14:46 WBC 10.1 (4.8-10.8) X10*3/uL RBC 3.57 L (4.60-5.80) X10*6/uL Hgb 10.2 L (14.0-18.0) g/dl Hct 31.7 L (42.0-52.0) % MCV 88.8 (80.0-98.0) fL MCH 28.6 (27.0-33.0) pg MCHC 32.2 (31.0-36.0) g/dl RDW 15.1 (11.0-16.0) % Plt Count 433 H D (160-400) X10*3/uL MPV 9.1 L (9.4-12.4) fL Immature Gran % (Auto) 0.3 (0.0-0.4) % Neut % (Auto) 82.5 H (45-73) % Lymph % (Auto) 7.5 L (20-40) % [place] % (Auto) 7.1 (2-11) % Eos % (Auto) 2.1 (0-4) % Baso % (Auto) 0.5 (0-2) % Lymph # (Auto) 0.8 L (1.2-4.9) X10*3/uL [place] # (Auto) 0.7 (0.1-1.2) X10*3/uL Eos # (Auto) 0.2 (0.0-0.4) X10*3/uL Baso # (Auto) 0.1 (0.0-0.2) X10*3/uL Abs Immat Gran (auto) 0.03 (0.00-0.03) X10*3/uL Absolute Neuts (auto) 8.4 H (2.0-8.3) x10*3/uL Absolute Nucleated RBC 0.000 (0.0-0.012) X10*3/uL Nucleated RBC % (auto) 0.0 (0.0-0.2) /100WBC PT 14.6 H (11.1-13.3) SEC INR 1.2 H (0.9-1.1) Sodium 134 L (135-145) mmol/L Potassium 4.4 (3.3-5.1) mmol/L Chloride 104 (96-108) mmol/L Carbon Dioxide 20 L (22-29) mmol/L Anion Gap 14 (12-20) BUN 22 H (9-16) mg/dL Creatinine 0.92 (0.5-1.4) mg/dL Estim Creat Clear Calc 59.2 Estimated GFR > 60 Random Glucose 232 H (60-115) mg/dL Calcium 9.6 (8.4-10.2) mg/dL Magnesium 1.8 (1.6-2.6) mg/dL Total Bilirubin 0.6 (0.0-1.0) mg/dL AST 24 (5-37) U/L ALT 31 (0-40) U/L Alkaline Phosphatase 77 (39-117) U/L Troponin I High Sens 9.6 D (<3.5-35.0) ng/L Total Protein 8.0 (6.5-8.0) g/dL Albumin 3.6 (3.5-5.0) g/dL Urine Color Dark Yellow Urine Appearance Turbid Urine pH 5.0 (5.0-9.0) Ur Specific [place] 1.025 (1.005-1.025) Urine Protein 30 (1+) H (Neg-Trace) mg/dL Urine Glucose (UA) 500 H (Negative) mg/dL Urine Ketones Trace (Negative) mg/dL Urine Blood Small (1+) H (Negative) Urine Nitrite Negative (Negative) Ur Leukocyte Esterase Moderate (2+) H (Negative) Urine RBC 11-20 H (0-2) /HPF Urine WBC >50 H (0-5) /HPF Ur Squamous Epith Cells 0-2 (0-2) /HPF Urine Bacteria None Seen (None Seen) Hyaline Casts 11-20 (0-2) /LPF Urine Yeast Present Influenza Type A (PCR) NEGATIVE (Negative) Influenza Type B (PCR) NEGATIVE (Negative) RSV RNA Qual (PCR) NEGATIVE (Negative) SARS-CoV-2 RNA (RT-PCR) NEGATIVE (Negative) External Record Review External record reviewed: Inpatient record Chronic Conditions Patient?s care impacted by: Diabetes and Hypertension urinary retention coronary artery disease ischemic cardiomyopathy hyperlipidemia alcohol abuse CHF diabetes hypertension Social Determinants Patient?s care significantly limited by Social Determinants of Health including: Inadequate housing Discharge Plan Discharge Clinical Impression: Acute UTI, Abnormal weight loss Patient Disposition: Home, Self-Care Instructions: Anorexia Nervosa (ED), Catheter-associated Urinary Tract Infection (ED) Additional Instructions: You were seen today in the emergency department for weakness not eating and concerns for bladder infection. Urine does show about infection your labs were otherwise unremarkable. Please call follow up with her doctor Prescriptions: New cefuroxime axetil 500 mg tablet 500 mg PO BID 7 Days Qty: 14 0RF No Action (DME) FreeStyle Lite Strips Strip See Rx Instructions .Route Qty: 100 8RF Rx Instructions: to check blood sugars once a day (DME) blood-glucose meter [Accu-Chek Guide Glucose Meter] Misc See Rx Instructions .Route Qty: 1 0RF Rx Instructions: As directed (DME) blood-glucose meter [FreeStyle Lite Meter] Kit See Rx Instructions .ROUTE .COMPLEX Qty: 1 0RF Dose Instruction: USE DIRECTED Rx Instructions: USE DIRECTED glyburide 2.5 mg tablet 2.5 mg PO BID Qty: 60 4RF aspirin 81 mg tablet,chewable 81 mg PO DAILY Qty: 30 5RF atorvastatin 40 mg tablet 40 mg PO BEDTIME Qty: 30 5RF carvedilol 3.125 mg tablet 3.125 mg PO BID Qty: 60 5RF Rx Instructions: must administer with a meal/food furosemide 20 mg tablet 20 mg PO QAM Qty: 30 5RF metformin 500 mg tablet 1,000 mg PO BID 30 Days Qty: 120 0RF sulfamethoxazole-trimethoprim [Bactrim DS] 800-160 mg tablet 1 tab PO BID 10 Days Qty: 20 0RF finasteride 5 mg tablet 5 mg PO DAILY 90 Days Qty: 90 1RF tamsulosin 0.4 mg capsule 0.4 mg PO DAILY 90 Days Qty: 90 0RF Print Language: Kinyarwanda
[2023-09-25 11:22] LABS: MANUAL DIFF FLAG NO
[2023-09-25 11:26] LABS: Basophils Absolute Auto 0.1 X10*3/uL (0.0-0.2); Basophils Percent Auto 0.5 % (0-2); Eosinophils Absolute Auto 0.2 X10*3/uL (0.0-0.4); Eosinophils Percent Auto 2.1 % (0-4); Hematocrit 31.7 % (42.0-52.0); Hemoglobin 10.2 g/dl (14.0-18.0); Imm Gran Abs Auto 0.03 X10*3/uL (0.00-0.03); Imm Gran Pct Auto 0.3 % (0.0-0.4); Lymphocytes Absolute Auto 0.8 X10*3/uL (1.2-4.9); Lymphocytes Percent Auto 7.5 % (20-40); Mean Corpuscular HGB Conc 32.2 g/dl (31.0-36.0); Mean Corpuscular Hemoglobin 28.6 pg (27.0-33.0); Mean Corpuscular Volume 88.8 fL (80.0-98.0); Mean Platelet Volume 9.1 fL (9.4-12.4); Monocytes Absolute Auto 0.7 X10*3/uL (0.1-1.2); Monocytes Percent Auto 7.1 % (2-11); Neutrophils Absolute Auto 8.4 x10*3/uL (2.0-8.3); Neutrophils Percent Auto 82.5 % (45-73); Platelet Count 433 X10*3/uL (160-400); Red Blood Count 3.57 X10*6/uL (4.60-5.80); Red Cell Distribution Width 15.1 % (11.0-16.0); White Blood Count 10.1 X10*3/uL (4.8-10.8)
[2023-09-25 11:30] LABS: INTERNATIONAL NORM RATIO 1.2 (0.9-1.1); Prothrombin Time 14.6 SEC (11.1-13.3)
[2023-09-25 11:41] LABS: Alanine Aminotransferase 31 U/L (0-40); Albumin Level 3.6 g/dL (3.5-5.0); Alkaline Phosphatase 77 U/L (39-117); Anion Gap 14 (12-20); Aspartate Amino Transferase 24 U/L (5-37); Bilirubin Total 0.6 mg/dL (0.0-1.0); Blood Urea Nitrogen 22 mg/dL (9-16); Calcium 9.6 mg/dL (8.4-10.2); Carbon Dioxide 20 mmol/L (22-29); Chloride 104 mmol/L (96-108); Creatinine Clr Calc Pharmacy 59.2; Estimated Glomerular Filt Rate > 60; Glucose Random 232 mg/dL (60-115); Magnesium 1.8 mg/dL (1.6-2.6); Potassium 4.4 mmol/L (3.3-5.1); Sodium 134 mmol/L (135-145)
[2023-09-25 11:49] LABS: Troponin-I High Sensitivity 9.6 ng/L (<3.5-35.0)
[2023-09-25 12:16] LABS: Influenza A PCR NEGATIVE (Negative); Influenza B PCR NEGATIVE (Negative); Resp Syncy Virus RNA Qual PCR NEGATIVE (Negative); SARS COV2 PCR INHOUSE NEGATIVE (Negative)
[2023-09-25 14:52] LABS: Appearance Urine Turbid; Color Urine Dark Yellow; Glucose Urine UA 500 mg/dL (Negative); Leukocyte Esterase Urine Moderate (2+) (Negative); Nitrite Urine Negative (Negative); Specific Gravity - Urine 1.025 (1.005-1.025); UMIC TRIGGER UACC YES; Urine Blood Small (1+) (Negative); Urine Ketones Trace mg/dL (Negative); Urine Protein 30 (1+) mg/dL (Neg-Trace)
[2023-09-25 15:22] LABS: Bacteria Urine None Seen (None Seen); Squamous Epithelial Cell Urine 0-2 /HPF (0-2); UACC Culture Trigger YES; WBC Urine >50 /HPF (0-5)
[2023-09-25 16:09] VITALS: BP 113/66; PULSE 88; RESP 16; TEMP 36.4; O2SAT 98
[2023-09-25] MEDS: cefuroxime axetiL 500 MG TABLET PO (16:11)
== END 2023-09-25 16:14 | disposition home or self-care (01) ==
PROVIDERS: Registered Nurse Emergency; Emergency Provider Student in an Organized Health Care Education/Training Program; PCP Internal Medicine
DX: N39.0 Urinary tract infection, site not specified (principal); R63.4 Abnormal weight loss; Z68.22 Body mass index [BMI] 22.0-22.9, adult; R33.9 Retention of urine, unspecified; I11.0 Hypertensive heart disease with heart failure; I50.9 Heart failure, unspecified; E78.5 Hyperlipidemia, unspecified; Z03.818 Encounter for observation for suspected exposure to other biological agents ruled out; Z96.0 Presence of urogenital implants; Z87.440 Personal history of urinary (tract) infections; Z79.02 Long term (current) use of antithrombotics/antiplatelets; Z79.82 Long term (current) use of aspirin; Z79.899 Other long term (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; Z79.84 Long term (current) use of oral hypoglycemic drugs
CPT/HCPCS: 0241U; 51701; 80053; 81001; 83735; 84484; 85025; 85610; 87086; 99282; 99283

== ENCOUNTER → 2023-10-02 08:20 | Outpatient (BNVA) | payer MEDICARE, OTHER, SELFPAY | PROVIDERS: PCP Internal Medicine; Visit Provider Nurse Practitioner Family | DX: R33.9 Retention of urine, unspecified (principal); N39.490 Overflow incontinence | CPT/HCPCS: 51700; 51702 ==

== ENCOUNTER 2023-10-07 14:11 | Outpatient (AMB) | payer MEDICARE, OTHER, SELFPAY ==
--- NOTE | 2023-10-07 14:19 | A.OFFVIS_ITS ---
Vital Signs 10/07/23 14:20 Height 6 ft Weight 160 lb 14.999 oz BMI 21.8 BP 120/68 Blood Pressure Location Lt brachial Position Sitting Pulse 107 H Intake Visit Reasons: follow-up at testing Intake Note: Follow-up after testing says heart doing ok Child Care Development Specialist Required: No Allergies No Known Allergies [No Known Allergies*] Allergy (Verified 09/25/23 11:01) Medication List - Last Reconciled 10/07/23 by Yosef Cuello MD aspirin 81 mg PO DAILY atorvastatin 40 mg PO BEDTIME blood sugar diagnostic (FreeStyle Lite Strips) to check blood sugars once a day blood-glucose meter (FreeStyle Lite Meter kit) USE DIRECTED blood-glucose meter (Accu-Chek Guide Glucose Meter) As directed cefuroxime axetil 500 mg PO BID 7 days finasteride 5 mg PO DAILY 90 days furosemide 20 mg PO QAM glyburide 2.5 mg PO BID metformin 1,000 mg (2 x 500 mg) PO BID 30 days metoprolol succinate ER 25 mg PO DAILY sulfamethoxazole-trimethoprim 800-160 mg (Bactrim DS) 1 tab PO BID 10 days tamsulosin 0.4 mg PO DAILY 90 days HPI Comments Details: Jeet comes for follow-up. He has been doing well. Underwent a recent dobutamine stress echocardiogram for viability assessment and suggested nonviable anterior wall in the LAD territory. He remains without any symptoms at current point time. Takes all his diuretics. Denies any lightheadedness, syncope. Blood pressure in the lower side. Denies any exertional chest pain. No orthopnea, PND, leg edema. No prolonged palpitation irregular heartbeat. [facility] Medical History (Updated 10/09/23 @ 12:46 by Yosef Cuello MD) Acute exacerbation of CHF (congestive heart failure) HFrEF (heart failure with reduced ejection fraction) Hyperlipidemia Alcohol abuse Diabetes mellitus Hypertension Surgical History History of cardiac cath History of hernia repair Family History Father Liver problem Mother Past heart attack Brother Cancer Sister Cancer Social History Housing: House Unable to assess alcohol history related to: Unknown Alcohol intake: current Alcohol intake frequency: does not drink Alcohol type: beer Patient Tobacco Use Status: Never used Tobacco e-Cigarette/Vaping Use: Never Used Second Hand Smoke Exposure: No service: Yes Current occupational status: retired Cognitive needs: No Hearing needs: No Vision needs: Yes (reading glasses) Review of Systems Const Denies chills, Denies fatigue, Denies fever(s), Denies frequent falls, Denies weakness, Denies weight gain and Denies weight loss ENT Denies dizziness Card Denies chest pain, Denies leg edema, Denies lightheadedness, Denies palpitations, Denies dyspnea, Denies dyspnea on exertion, Denies orthopnea and Denies other (loss of consciousness) Resp Denies cough, Denies dyspnea and Denies dyspnea on exertion GI Denies hematochezia and Denies change in stool character Musc Denies abnormal gait, Denies muscle weakness, Denies numbness, Denies radiating pain into limb and Denies tingling Neuro Denies abnormal gait, Denies dizziness, Denies frequent falls, Denies numbness, Denies tingling and Denies weakness Endo Denies fatigue and Denies palpitations Physical Exam Vital Signs: Last Vital Signs Pulse 107 H 10/07/23 14:20 BP 120/68 10/07/23 14:20 BMI result Body Mass Index 21.8 Const General: cooperative, healthy appearing, comfortable and no acute distress Orientation/consciousness: patient oriented x3 Neck Neck: Yes normal visual inspection and Yes no JVD Resp Effort & Inspection: normal respiratory effort Auscultation: clear to auscultation bilaterally, no crackles, no rales, no rhonchi and no wheezes Cardio Jugular venous distension: no JVD Rate: regular rate Rhythm: regular rhythm Heart sounds: S1 normal heart sound present, S2 normal heart sound present, no murmurs and no rubs Neuro General: patient oriented x3 Extrem Other: right radial pulse easily palpable, right hand assessment normal. General: Yes normal to inspection, No no pedal edema and No calf tenderness Psych Appearance: grossly normal Mental Status: mental status grossly normal Speech and movement: Normal speech and movement present Assessment & Plan Assessment & Plan (1) Chronic HFrEF (heart failure with reduced ejection fraction): Code(s): I50.22 - Chronic systolic (congestive) heart failure Category: Medical Plan: Heart failure with reduced ejection fraction, clinically euvolemic and well compensated on current diuretic dose. Continue the same. This is secondary to severe ischemic cardiomyopathy with total LAD occlusion with non viable anterior wall suggestive of anterior myocardial infarction at some point in time leading to his congestive heart failure syndrome. Currently on metoprolol therapy for neurohormonal modulation. Will add valsartan 20 mg b.i.d. to his regimen. Management of heart failure was discussed. Daily weight monitoring avoidance of salt loading was discussed. Daily blood pressure monitoring was discussed additional diuretics as need be. Repeat limited echocardiogram in 4 weeks time. If blood pressure allows and he is persistent severe LV systolic dysfunction will plan to switch him to Entresto therapy. Advise blood work in near future. Follow up in the clinic in 6 weeks time, sooner p.r.n.. Thank you for allowing me to partake in his care Orders: Orders CA echo limited 4 Weeks I25.5 - Ischemic cardiomyopathy, I42.9 - Cardiomyopathy, unspecified Basic Metabolic Panel Today I50.22 - Chronic systolic (congestive) heart failure B Type Natriuretic Peptide Today I50.22 - Chronic systolic (congestive) heart failure Medications: New valsartan 20 mg (1/2 x 40 mg) PO BID 30 tabs 5RF metoprolol succinate ER (Toprol XL) 50 mg PO DAILY 30 tabs 5RF Coding Level of Care Code Est Pt Level 4 (02487) Diagnoses Chronic HFrEF (heart failure with reduced ejection fraction) I50.22
[2023-10-07 14:20] VITALS: BP 120/68; PULSE 107; BMI 21.8
== END 2023-10-07 14:51 | disposition home or self-care (01) ==
PROVIDERS: PCP Internal Medicine; Visit Provider Internal Medicine Cardiovascular Disease
DX: I50.22 Chronic systolic (congestive) heart failure (principal)
CPT/HCPCS: 99214

== ENCOUNTER → 2023-10-07 14:11 | Outpatient (BNVA) | payer MEDICARE, OTHER, SELFPAY | PROVIDERS: PCP Internal Medicine; Visit Provider Internal Medicine Cardiovascular Disease | DX: I11.0 Hypertensive heart disease with heart failure (principal); I50.22 Chronic systolic (congestive) heart failure | CPT/HCPCS: 99212 ==

== ENCOUNTER 2023-10-09 08:11 | Outpatient (REF) | payer MEDICARE, OTHER, SELFPAY ==
[2023-10-09 08:56] LABS: Anion Gap 15 (12-20); Blood Urea Nitrogen 19 mg/dL (9-16); Calcium 9.1 mg/dL (8.4-10.2); Carbon Dioxide 24 mmol/L (22-29); Chloride 103 mmol/L (96-108); Estimated Glomerular Filt Rate > 60; Glucose Random 135 mg/dL (60-115); Sodium 138 mmol/L (135-145)
[2023-10-09 09:02] LABS: B Type Natriuretic Peptide 373 pg/mL (<100)
== END 2023-10-09 08:12 | disposition home or self-care (01) ==
LOC: HO.LAB 08:11
PROVIDERS: PCP Internal Medicine; Visit Provider Internal Medicine Cardiovascular Disease
DX: I50.22 Chronic systolic (congestive) heart failure (principal)
CPT/HCPCS: 36415; 80048; 83880

== ENCOUNTER 2023-10-14 10:34 | Outpatient (REF) | payer MEDICARE, OTHER, SELFPAY ==
--- NOTE | ~2023-10-14 | US_ITS ---
EXAMINATION: US RETROPERITONEAL COMPLETE (RENAL) CLINICAL INFORMATION: Retention of urine, unspecified. COMPARISON: CT abdomen and pelvis 01/18/2020. TECHNIQUE: Real-time imaging of the kidneys and bladder. FINDINGS: RIGHT KIDNEY: 11.9 x 5.8 x 5.0 cm (SAG x AP x TRV). The kidney is normal in size, contour, and echogenicity. Renal cortical thickness is normal. No calculi or focal parenchymal lesions. No hydronephrosis. LEFT KIDNEY: 10.8 x 4.8 x 4.9 cm (SAG x AP x TRV). The kidney is normal in size, contour, and echogenicity. Renal cortical thickness is normal. No renal calculi or hydronephrosis. Two benign Bosniak class I renal cysts are noted, the largest in the upper pole measuring 8.3 cm which require no additional imaging or follow-up. No solid renal masses are seen. BLADDER: A Kellogg catheter is present in the bladder. Right ureteral jet is demonstrated; left is not. Prevoid bladder volume is 131 mL. Postvoid bladder volume is 61.9 mL. ADDITIONAL FINDINGS: There is marked prostatic enlargement at 97 mL. 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
== END 2023-10-14 10:35 | disposition home or self-care (01) ==
LOC: HO.US 10:34
PROVIDERS: PCP Internal Medicine; Visit Provider Nurse Practitioner Family
DX: R33.9 Retention of urine, unspecified (principal); N39.490 Overflow incontinence
CPT/HCPCS: 76770

== ENCOUNTER 2023-10-17 15:32 | Outpatient (AMB) | payer MEDICARE, OTHER, SELFPAY ==
--- NOTE | 2023-10-17 15:33 | AM.OFFVISNUR ---
Intake Intake Visit Reasons: catheter check Allergies No Known Allergies [No Known Allergies*] Allergy (Verified 09/25/23 11:01) Nursing Note Patient presents to office for catheter check as he called in reporting no urine coming out of flip valve, burning with urination and abdominal pain. Catheter able to drain 150mls of urine into urinal. PVR 112 mls. UA run not indicative of infection. All information reviewed with Yumiko DIAZ. Have patient go home and drink lots of water to help clear out blood in urine and acidity of urine. Information relayed to patient. Patient to keep VT appt 10/22/23. Patient will call with any questions or concerns until appt. Patient agreeable with plan at this time Coding
== END 2023-10-17 15:51 | disposition home or self-care (01) ==
LOC: HO.HUSH 15:32
PROVIDERS: PCP Internal Medicine; Visit Provider Nurse Practitioner Family
DX: N39.490 Overflow incontinence (principal); R33.9 Retention of urine, unspecified

== ENCOUNTER → 2023-10-17 15:32 | Outpatient (BNVA) | payer MEDICARE, OTHER, SELFPAY | PROVIDERS: PCP Internal Medicine; Visit Provider Nurse Practitioner Family | DX: R10.9 Unspecified abdominal pain (principal); R39.198 Other difficulties with micturition | CPT/HCPCS: 51798; 81003 ==

== ENCOUNTER 2023-10-22 08:19 | Outpatient (AMB) | payer MEDICARE, OTHER, SELFPAY ==
--- NOTE | 2023-10-22 08:36 | A.OFFVIS_ITS ---
Intake Visit Reasons: cysto/VT Intake Note: Patient is present for Cystoscopy/VT Urology Medication:OXYBUTYNIN,TAMSULOSIN,FINASTERIDE Antibiotic Allergy:NONE Blood Thinner:ASPIRIN Lot: Exp: [employer] Professor Required: No Allergies No Known Allergies [No Known Allergies*] Allergy (Verified 11/16/23 12:36) HPI Comments Details: Jeet is a pleasant male. He has a patient of Dr. Wilson. He has seen for the following urologic conditions. - lower urinary tract symptoms - urinary retention Here for cystoscopy and voiding trial Open bladder neck Recommend cystoscopy with suprapubic tube placement Lower urinary tract symptoms of the urinary retention Background diabetes and ETOH abuse Initial presentation to emergency room 09/09/2023. Unable to void. Catheter placed. Has had multiple episodes. Found to have UTI initial office visit with 1000 cc in bladder PFS Medical History (Updated 12/16/23 @ 15:01 by Yosef Cuello MD) CAD (coronary artery disease) HFrEF (heart failure with reduced ejection fraction) Acute exacerbation of CHF (congestive heart failure) Hyperlipidemia Alcohol abuse Diabetes mellitus Hypertension Surgical History (Updated 12/16/23 @ 15:01 by Yosef Cuello MD) History of cardiac cath History of hernia repair Family History Father Liver problem Mother Past heart attack Brother Cancer Sister Cancer Social History Household Members: Family Housing: House Do you presently have visiting nurse or other home services: Yes (VNA & Grandson helps with care.) Unable to assess alcohol history related to: Unknown Alcohol intake: never Patient Tobacco Use Status: Never used Tobacco e-Cigarette/Vaping Use: Never Used Second Hand Smoke Exposure: No service: Yes Current occupational status: retired Cognitive needs: No Hearing needs: No Vision needs: Yes (reading glasses) Review of Systems Const Denies chills and Denies fever(s) Card Reports no additional complaints and Denies syncope Resp Denies cough GI Denies abdominal pain and Denies heartburn Reports as per HPI and Denies change in libido Neuro Denies syncope Psych Denies change in libido Endo Denies change in libido Physical Exam Const General: cooperative, healthy appearing, comfortable and no acute distress Orientation/consciousness: patient oriented x3 HEENT Face and sinus: Yes normal facial exam Mouth: moist mucous membranes Neck Neck: Yes normal visual inspection, Yes full ROM and Yes trachea midline Chest Chest palpation & inspection: normal inspection of the chest Resp Effort & Inspection: normal respiratory effort, able to speak in complete sentences and no respiratory distress GI Inspection: Yes normal to inspection Back/Spine/Pelvis Cervical Spine: normal cervical lordosis Thoracic/Lumbar Spine: thoracic and lumbar spine normal to inspection Skin General skin exam: no rashes or lesions noted Neuro General: patient oriented x3, gait normal, tone normal and moves all extremities Extrem General: Yes normal to inspection and Yes capillary refill normal Office Procedures Bladder/Catheter Procedure Details: Dr. Lea gave verbal order to reinsert gifford catheter after the cystoscopy was completed. 18 yi 10 mL balloon Elder gifford catheter was reinserted and tolerated well. Drained approximately 100 mL of yellow urine. Blue plug applied and patient given extra. He had no difficulties with the blue plug prior. Patient given a drainage bag for night time. He was instructed to call the office with any concerns. [id number] Bladder Catheter Procedure code (CPT) selection complete Cystoscopy Consent Discussed risk and benefit or proposed procedure with the patient. Information consent for procedure given to the patient. Discussed technical aspects, risks, benefits and alternatives in full. Addressed all of the patient's questions and concerns regarding the procedure. The patient demonstrated knowledge and understanding. They wish to proceed with this procedure. Preparation The patient was prepped in the usual manner. A peach grower was present and in the room. Genitalia was prepped with betadine solution in a sterile manner. Lidocaine Jelly 2% was placed into the urethra and 16Fr flexible Olympus cystoscope was inserted into the meatus after adequate lubrication. Procedure Cystoscopy performed using a disposable Urovue digital 16 [place] cystoscope. Meatus circumcised Urethra anterior and posterior urethra normal Prostatic Urethra open Bladder examination with retroflexion of cystoscope Bladder Orifices normal Bladder Capacity large Trabeculations mild moderate severe Cellule Formation - Diverticulum Formation - Mucosal Erythema - Bladder Tumor - 18 [place] gifford catheter with 10 mL balloon removed before the cystoscopy. Patient tolerated well. [id number]-[id number] DISPOSABLE SCOPE URO-G FLEXIBLE SCOPE Procedure code (CPT) selection complete Office Meds lidocaine HCl 2 % mucosal jelly in applicator Performing Provider: Guillaume Lea MD Performing Location: [facility] Administered by: Les Chou RN on 10/22/23 09:10 Dose Route Admin Location Dispensed Lot Number Expiration Date NDC Professor Of French 10 mL intra-urethral 10 mL nitrofurantoin monohydrate/macrocrystals 100 mg capsule Performing Provider: Guillaume Lea MD Performing Location: [facility] Administered by: Les Chou RN on 10/22/23 09:10 Dose Route Admin Location Dispensed Lot Number Expiration Date NDC Professor Of French 100 mg PO 1 cap naproxen 500 mg tablet Performing Provider: Guillaume Lea MD Performing Location: [facility] Administered by: Les Chou RN on 10/22/23 09:10 Dose Route Admin Location Dispensed Lot Number Expiration Date NDC Professor Of French 500 mg PO 1 tab Assessment & Plan Assessment & Plan (1) Urinary retention: Code(s): R33.9 - Retention of urine, unspecified Category: Medical Plan Risks, benefits and alternatives to therapy were discussed. These include but are not limited to infection, bleeding, damage to local organs and tissues, need for further interventions. Anesthetic risks regarding cardiac arrhythmia, blood clots, and potential mortality were discussed. The patient understands the typical recovery time and the outpatient nature of the procedure. After consideration of these risks the patient gives full informed consent and they wish to move ahead with the procedure. Cystoscopy, suprapubic tube placement Orders: Orders AMB Cystoscopy 10/22/23 N39.490 - Overflow incontinence, R33.9 - Retention of urine, unspecified AMB Bladder/Catheter Procedure 10/22/23 N39.490 - Overflow incontinence, R33.9 - Retention of urine, unspecified Medications: Discontinued oxybutynin chloride Discontinued Reason: Doctor's Order 5 mg PO BID 5 days 10 tabs 0RF Patient Instructions: Imaging studies, laboratory and physical exam results were discussed and reviewed in detail. No major barriers to patient understanding were identified. An opportunity to ask questions regarding the treatment plan was provided. All questions were answered. The patient expressed understanding and agreement with the above treatment plan. The patient is aware they should contact our office by phone for worsening of their current condition or the appearance of new urologic symptoms. Compliance is encouraged with any medications and followup testing that is ordered. It is a privilege to participate in the urologic care of your patient. If you have any questions or concerns regarding treatment for the above conditions, or other urologic issues, please do not hesitate to contact me. The office telephone contact is [phone]. This note is constructed using voice recognition software. While every effort has been made to ensure accuracy seam stayer errors may have been included. Yours sincerely, Dr Guillaume Lea MD, [facility] - Urology Providers of Expert, Compassionate Care for the Genitourinary System Coding Level of Care Code Est Pt Level 4 (73668) Diagnoses Urinary retention R33.9 CPT Codes Bladder/Catheter Procedure - CPT: 86531-Rmnegs Bladder Catheter ([id number]) Cystoscopy - CPT: 21191-Oedliepzav ([id number])
== END 2023-10-22 10:24 | disposition home or self-care (01) ==
LOC: HO.HUSH 08:19
PROVIDERS: PCP Internal Medicine; Visit Provider Urology
DX: N39.490 Overflow incontinence (principal); R33.9 Retention of urine, unspecified
CPT/HCPCS: 52000; 99214

== ENCOUNTER → 2023-10-22 08:19 | Outpatient (BNVA) | payer MEDICARE, OTHER, SELFPAY | PROVIDERS: PCP Internal Medicine; Visit Provider Urology | DX: N39.490 Overflow incontinence (principal); R33.9 Retention of urine, unspecified | CPT/HCPCS: 52000; 99212 ==

== ENCOUNTER 2023-10-29 15:50 | Outpatient (REF) | payer MEDICARE, OTHER, SELFPAY | END 2023-10-29 15:51 | disposition home or self-care (01) | LOC: HO.LAB 15:50 | PROVIDERS: PCP Internal Medicine; Visit Provider Urology | DX: Z13.89 Encounter for screening for other disorder (principal) | CPT/HCPCS: 81003 ==

== ENCOUNTER 2023-10-29 15:50 | Outpatient (AMB) | payer MEDICARE, OTHER, SELFPAY ==
--- NOTE | 2023-10-29 16:06 | AM.OFFVISNUR ---
Intake Visit Reasons: catheter check Allergies No Known Allergies [No Known Allergies*] Allergy (Verified 10/22/23 08:41) Nursing Note patient presented to office for catheter check. Patient catheter draining well, urine cloudy and slow to come out of catheter. UA run nitrate positive. Reviewed with Yumiko- sent bactrim BID for 7 days. Culture order placed. Patient aware infection there and dehydration to increase fluids, call if he has worsening symptoms or other concerns. Patient agreeable Results AMB Urinalysis, Automated UA Leukoctes 70 Gemma/uL Last Edit by Arie Gallego LPN on 10/29/23 16:06 UA Nitrite Positive Last Edit by Arie Gallego LPN on 10/29/23 16:06 UA Urobilinogen 0.2 mg/dL Last Edit by Arie Gallego LPN on 10/29/23 16:06 UA Protein 300 mg/dL Last Edit by Arie Gallego LPN on 10/29/23 16:06 UA pH 5.5 Last Edit by Arie Gallego LPN on 10/29/23 16:06 UA Blood 200 Felipe/uL Last Edit by Arie Gallego LPN on 10/29/23 16:06 UA Specific [place] 1.030 Last Edit by Arie Gallego LPN on 10/29/23 16:06 UA Ketone Negative Last Edit by Arie Gallego LPN on 10/29/23 16:06 UA Bilirubin 0 mg/dL Last Edit by Arie Gallego LPN on 10/29/23 16:06 UA Glucose 100 mg/dL Last Edit by Arie Gallego LPN on 10/29/23 16:06 Assessment & Plan Assessment & Plan Orders: Orders AMB Urinalysis Automated Today Guillaume Lea MD N39.0 - Urinary tract infection, site not specified, N39.490 - Overflow incontinence, R33.9 - Retention of urine, unspecified Urine Culture Today TYLER Gastelum- N39.0 - Urinary tract infection, site not specified, N39.490 - Overflow incontinence, R33.9 - Retention of urine, unspecified Medications: Changed From sulfamethoxazole-trimethoprim 800-160 mg (Bactrim DS) 1 tab PO BID 10 days 20 tabs 0RF N39.0 - Urinary tract infection, site not specified To sulfamethoxazole-trimethoprim 800-160 mg (Bactrim DS) 1 tab PO BID 14 tabs 0RF 7 days N39.0 - Urinary tract infection, site not specified Guillaume Lea MD
== END 2023-10-29 16:17 | disposition home or self-care (01) ==
LOC: HO.HUSH 15:50
PROVIDERS: PCP Internal Medicine; Visit Provider Urology
DX: R33.9 Retention of urine, unspecified (principal); N39.490 Overflow incontinence; N39.0 Urinary tract infection, site not specified

== ENCOUNTER 2023-10-29 16:47 | Outpatient (REF) | payer MEDICARE, OTHER, SELFPAY | END 2023-10-29 16:48 | disposition home or self-care (01) | LOC: HO.LNP 16:47 | PROVIDERS: Visit Provider Nurse Practitioner Family | DX: N39.0 Urinary tract infection, site not specified (principal); N39.490 Overflow incontinence; R33.9 Retention of urine, unspecified | CPT/HCPCS: 81003; 87086; 87088; 87186 ==

== ENCOUNTER 2023-11-02 22:51 | Emergency (ER) | payer MEDICARE, OTHER, SELFPAY ==
[2023-11-02 22:57] VITALS: BP 94/59; PULSE 102; RESP 18; TEMP 36.3; O2SAT 95; BMI 22.2
[2023-11-03 00:03] VITALS: BP 103/65; PULSE 99; RESP 12; TEMP 36.4; O2SAT 95
--- NOTE | 2023-11-03 00:35 | ED_ITS ---
HPI - Male Genitourinary General Chief complaint: Urogenital-Male Stated complaint: Catheter issue Time Seen by Provider: 11/03/23 00:28 Source: patient Mode of arrival: ambulatory Limitations: no limitations History of Present Illness ED Provider: saul ZUÑIGA Narrative: Patient with chronic indwelling Kellogg catheter for urinary retention comes replaced on 10/21 started on Bactrim on 10/28 for UTI by the urologist comes here as for last 24 hours not able to drain urine as much as he used to, no fever no chills urine culture done on 10/28 grew Enterobacter cloaca complex and Serratia sensitive to Bactrim and Levaquin Related Data Previous Rx's ?Medication ?Instructions ?Recorded blood sugar diagnostic (FreeStyle #100 ea 04/02/22 Lite Strips) blood-glucose meter (Accu-Chek #1 ea 05/24/22 Guide Glucose Meter) blood-glucose meter (FreeStyle #1 ea 06/09/22 Lite Meter kit) aspirin 81 mg chewable tablet 81 mg PO DAILY #30 tabs 07/29/23 atorvastatin 40 mg tablet 40 mg PO BEDTIME #30 tabs 07/29/23 furosemide 20 mg tablet 20 mg PO QAM #30 tabs 07/29/23 finasteride 5 mg tablet 5 mg PO DAILY 90 days #90 tabs 09/04/23 tamsulosin 0.4 mg capsule 0.4 mg PO DAILY 90 days #90 caps 09/04/23 metoprolol succinate 25 mg 25 mg PO DAILY #30 tabs 10/14/23 tablet,extended release 24 hr sulfamethoxazole 800 1 tab PO BID 7 days #14 tabs 10/29/23 mg-trimethoprim 160 mg tablet (Bactrim DS) glyburide 2.5 mg tablet 2.5 mg PO BID #60 tabs 10/30/23 metformin 500 mg tablet 1,000 mg (2 x 500 mg) PO BID 30 10/30/23 days #120 tabs phenazopyridine 100 mg tablet 100 mg PO TID PRN pain 3 days #15 10/30/23 (Pyridium) tabs levofloxacin 250 mg tablet 250 mg PO DAILY #7 tabs 11/03/23 Allergies Allergy/AdvReac Type Severity Reaction Status Date / Time No Known Allergies Allergy Verified 11/02/23 23:01 [No Known Allergies*] Review of Systems Review of Systems: Yes all other systems are reviewed and are negative [facility] Past Medical History Medical History Acute exacerbation of CHF (congestive heart failure) HFrEF (heart failure with reduced ejection fraction) Hyperlipidemia Alcohol abuse Diabetes mellitus Hypertension Surgical History History of cardiac cath History of hernia repair Family History Family History Father Liver problem Mother Past heart attack Brother Cancer Sister Cancer Social History Social History Housing: House Unable to assess alcohol history related to: Unknown Alcohol intake: current Alcohol intake frequency: does not drink Alcohol type: beer Patient Tobacco Use Status: Never used Tobacco e-Cigarette/Vaping Use: Never Used Second Hand Smoke Exposure: No Advance Directives: No Advance Directives Information Provided: No Do you have a plan to hurt others: No Plan service: Yes Current occupational status: retired Cognitive needs: No Hearing needs: No Vision needs: Yes (reading glasses) Physical Exam Vital Signs: Vital Signs: Last Vital Signs Temp 97.6 F 11/03/23 00:03 Pulse 99 11/03/23 00:03 Resp 12 11/03/23 00:03 BP 103/65 11/03/23 00:03 Pulse Ox 95 11/03/23 00:03 O2 Del Method Room Air 11/03/23 00:03 BMI result Body Mass Index 22.2 Appearance: Alert. Oriented X3. No acute distress. ENT: Pharynx normal. Oral Mucosa moist Neck: Normal inspection. Neck supple. CVS: Normal heart rate and rhythm. Pulses normal. Respiratory: No respiratory distress. Equal air entry bilateral, Abdomen: Soft and nontender. Bowel sounds are present, no mass palpable, no CVA tenderness Skin: Skin warm and dry. Normal skin color. Normal skin turgor. Extremities: No lower extremity edema. No calf tenderness Neuro: Oriented X 3. Medical Decision Making Medical Decision Making MDM Narrative: Patient with indwelling Kellogg catheter with UTI already taking Bactrim for last 6 days without much response urine still showing 3+ leuko Estrace and more than 50 WBCs and 2+ bacteria will start patient on Levaquin 250 mg daily Differential Diagnosis Differential Diagnoses: The differential diagnosis associated with the presentation includes Lab Data MDM Lab Attestation statement: I reviewed the patient's lab results. Labs: Lab Results 11/03/23 Range/Units 01:00 Urine Color Dark Yellow Urine Appearance Turbid Urine pH 5.5 (5.0-9.0) Ur Specific [place] 1.025 (1.005-1.025) Urine Protein 300 (3+) H (Neg-Trace) mg/dL Urine Glucose (UA) Negative (Negative) mg/dL Urine Ketones Trace (Negative) mg/dL Urine Blood Large (3+) H (Negative) Urine Nitrite Negative (Negative) Ur Leukocyte Esterase Large (3+) H (Negative) Urine RBC >20 H (0-2) /HPF Urine WBC >50 H (0-5) /HPF Ur Squamous Epith Cells 6-10 (0-2) /HPF Urine Bacteria 2+ (None Seen) Hyaline Casts 11-20 (0-2) /LPF Discharge Plan Discharge Clinical Impression: Encounter for Kellogg catheter replacement, Chronic UTI Patient Disposition: Home, Self-Care Instructions: Catheter-associated Urinary Tract Infection (ED), Kellogg Catheter Removal (DC) Additional Instructions: Drink plenty of fluids Take antibiotic as prescribed Follow up with your urologist Prescriptions: New levofloxacin 250 mg tablet 250 mg PO DAILY Qty: 7 0RF No Action (DME) FreeStyle Lite Strips Strip See Rx Instructions .Route Qty: 100 8RF Rx Instructions: to check blood sugars once a day (DME) blood-glucose meter [Accu-Chek Guide Glucose Meter] Misc See Rx Instructions .Route Qty: 1 0RF Rx Instructions: As directed (DME) blood-glucose meter [FreeStyle Lite Meter] Kit See Rx Instructions .ROUTE .COMPLEX Qty: 1 0RF Dose Instruction: USE DIRECTED Rx Instructions: USE DIRECTED aspirin 81 mg tablet,chewable 81 mg PO DAILY Qty: 30 5RF atorvastatin 40 mg tablet 40 mg PO BEDTIME Qty: 30 5RF furosemide 20 mg tablet 20 mg PO QAM Qty: 30 5RF metoprolol succinate 25 mg tablet extended release 24 hr 25 mg PO DAILY Qty: 30 5RF Rx Instructions: Stop Carvedilol. Start Metoprolol phenazopyridine [Pyridium] 100 mg tablet 100 mg PO TID PRN (Reason: pain) 3 Days Qty: 15 0RF glyburide 2.5 mg tablet 2.5 mg PO BID Qty: 60 4RF metformin 500 mg tablet 1,000 mg PO BID 30 Days Qty: 120 0RF sulfamethoxazole-trimethoprim [Bactrim DS] 800-160 mg tablet 1 tab PO BID 7 Days Qty: 14 0RF finasteride 5 mg tablet 5 mg PO DAILY 90 Days Qty: 90 1RF tamsulosin 0.4 mg capsule 0.4 mg PO DAILY 90 Days Qty: 90 0RF Print Language: Vietnamese
[2023-11-03 01:14] LABS: Appearance Urine Turbid; Color Urine Dark Yellow; Glucose Urine UA Negative (Negative); Leukocyte Esterase Urine Large (3+) (Negative); Nitrite Urine Negative (Negative); PH 5.5 (5.0-9.0); Specific Gravity - Urine 1.025 (1.005-1.025); UMIC TRIGGER UACC YES; Urine Blood Large (3+) (Negative); Urine Ketones Trace mg/dL (Negative); Urine Protein 300 (3+) mg/dL (Neg-Trace)
[2023-11-03 01:25] LABS: Bacteria Urine 2+ (None Seen); RBC Urine >20 /HPF (0-2); UACC Culture Trigger YES; WBC Urine >50 /HPF (0-5)
[2023-11-03 02:10] VITALS: BP 119/69; PULSE 113; RESP 18; TEMP 36.4; O2SAT 96
[2023-11-03] MEDS: levoFLOXacin 500 MG TABLET PO (02:17)
--- NOTE | 2023-11-03 02:56 | PC.NURSE ---
Pt reports he is due for a bladder surgery on 11/11/2023 and has a chronic catheter that he empties and attaches a bag to at HS. Pt states he was unable to get urine out and hewas having pain and urine coming out around catheter. at bedside and assessed pt. BS cmplete no urine , uncapped catheter and no urine output. Ordered to change the catheter. Pt tolerated procedure well, catheter had sediment blocking catheter tip and pt had foul smelling, cloudy urine. U/a sent to lab. Replacement catheter placed #18 [place]raini and 10ml saline in the balloon. MD aware. cap cleaned with iodine returned to catheter.
[2023-11-03 03:01] VITALS: BP 119/69; PULSE 113; RESP 18; TEMP 36.4; O2SAT 96
== END 2023-11-03 02:15 | disposition home or self-care (01) ==
PROVIDERS: Emergency Provider Internal Medicine; PCP Internal Medicine
DX: T83.511A Infection and inflammatory reaction due to indwelling urethral catheter, initial encounter (principal); N39.0 Urinary tract infection, site not specified; Y73.8 Miscellaneous gastroenterology and urology devices associated with adverse incidents, not elsewhere classified; Y92.019 Unspecified place in single-family (private) house as the place of occurrence of the external cause; Z87.440 Personal history of urinary (tract) infections
CPT/HCPCS: 51702; 81001; 87086; 99284

== ENCOUNTER 2023-11-11 10:28 | Day surgery (SDC) | payer MEDICARE, OTHER, SELFPAY ==
[2023-11-07 14:22] VITALS: BMI 21.8
[2023-11-11] VITALS (7 sets, daily range): BP systolic 95–117; BP diastolic 61–77; PULSE 91–99; RESP 15–18; TEMP 36.4–37; O2SAT 94–95
[2023-11-11 11:09] LABS: Glucose, Whole Blood 156 mg/dL (60-115)
[2023-11-11] MEDS: Lactated Ringers 1,000 ML 50 ML IVCONT (11:52)
--- NOTE | 2023-11-11 13:11 | MHC.SHP ---
Pre-Procedural Eval Section A - 24 Hr Update-Section A only Date of Service: 11/11/23 The patient is an INPATIENT: No Changes since office visit: No Cold of Flu in the past 2 weeks, No New Medical Problems, No Changes in Medication and No Patient answered all questions The patient has been examined within 24 hours of the surgical procedure. The History & Physical has been completed within 30 days and I have reviewed it.: Yes Section B - Complete if H&P > 30 days Chief Complaint: Retention of urine, unspecified Details of Present Illness: Failed multiple voiding trials Relevant Family History (Specify if Yes): No Relevant Social History: None Present Medications: see Short Stay Collaborative assessment Medical History: Significant History History of Previous Operations: No relevant previous surgery Allergies: Allergies Allergy/AdvReac Type Severity Reaction Status Date / Time No Known Allergies Allergy Verified 11/02/23 23:01 [No Known Allergies*] Review of Systems Sugical H&P ROS: Negative: Constitution, Cardiovascular, Respiratory, Neurological, Psychiatric, Hem-Onc, Allergic/Immunologic, Gastrointestinal, Genitourinary, Musculoskeletal, Integumentary, Endocrine and Eyes/Ears/Nose/Throat Exam Surgical H&P Exam: Normal: HEENT, Normal: Heart, Normal: Lungs, Normal: Extremities, Normal: Abdomen, Normal: Skin and Normal: Neurological Plan Diagnosis/Plan: Unchanged (cystoscopy and SPT placement) I have reviewed the history and physical and performed a pertinent physical examination on my patient. No changes have occurred unless specified. Time Spent With Patient Time: Total time managing care of this patient today ____ minutes.
--- NOTE | 2023-11-11 13:31 | P.CONAN_ITS ---
[facility] Active Problems Active Problems: All Active Problems (Updated 11/04/23 @ 00:00 by Giovana Cuello) Overflow incontinence (Acute) Urinary retention (Acute) History of cardiac cath (Acute) Hospital discharge follow-up (Acute) Ischemic cardiomyopathy (Acute) Chronic HFrEF (heart failure with reduced ejection fraction) (Acute) Right shoulder pain (Acute) Alcohol abuse (Acute) Hyperlipidemia (Acute) Diabetes mellitus with coincident hypertension (Acute) Bursitis of right hip (Acute) Arthritis of right hip (Acute) Fatigue (Acute) Depression screening negative (Acute) Acute right hip pain (Acute) Strain of knee and leg, right (Acute) Right knee pain (Acute) History of smoking (Acute) Prostate cancer screening (Acute) Medicare annual wellness visit, initial (Acute ~02/22/21) Diabetes mellitus (Acute) Hypertension (Acute) Past Medical History Medical History Acute exacerbation of CHF (congestive heart failure) HFrEF (heart failure with reduced ejection fraction) Hyperlipidemia Alcohol abuse Diabetes mellitus Hypertension Family History Family History Father Liver problem Mother Past heart attack Brother Cancer Sister Cancer Family history of problems with anesthesia: No Surgical History Surgical History History of cardiac cath History of hernia repair History of Problems with Anesthesia: No Social History Social History Housing: House Unable to assess alcohol history related to: Unknown Alcohol intake: never Patient Tobacco Use Status: Never used Tobacco e-Cigarette/Vaping Use: Never Used Second Hand Smoke Exposure: No Use of substances other than those prescribed or required for medical reasons: No Advance Directives: No Advance Directives Information Provided: Yes service: Yes Current occupational status: retired Cognitive needs: No Hearing needs: No Vision needs: Yes (reading glasses) Meds Allergies Allergy/AdvReac Type Severity Reaction Status Date / Time No Known Allergies Allergy Verified 11/02/23 23:01 [No Known Allergies*] Active Medications: Current Medications Lactated Ringer's (Lr) 1,000 mls @ 50 mls/hr IVCONT .Q20H SALLY Last Admin: 11/11/23 11:52 Dose: 50 mls/hr Home Medications ?Medication ?Instructions ?Recorded ?Confirmed ?Last Taken ?Type valsartan 40 mg tablet 20 mg PO BID 11/07/23 11/07/23 Unknown History Exam Height,Weight and Vital Signs: Height 6 ft Weight 73.028 kg Last Vital Signs Temp 97.6 F 11/11/23 10:55 Pulse 91 11/11/23 10:55 Resp 18 11/11/23 10:55 BP 101/63 11/11/23 10:55 Pulse Ox 95 11/11/23 10:55 O2 Del Method Room Air 11/11/23 10:55 Pertinent Lab Results Pertinent Lab Results: Laboratory Tests 11/11/23 11:05 POC Glucose 156 H Airway Mallampati Class: III TM Dist: >3cm Neck ROM: Limited Loose/Missing/Broken Teeth: Yes, Upper and Lower Assessment and Plan Assessment Anesthesia Assessment: Anesthesia Plan Discussed and Chart Reviewed Final Anesthetic Review Family History of Problems with Anesthesia: No History of Problems with Anesthesia: No NPO: Yes ASA Class: III Final Preanesthetic Review: No Changes in Pt Med Stat, Meds/Allgs Chart Reviewed, Consent Obtained/Reviewed and Anes Risks/Benef Reviewed Patient Risk: Intermediate Procedure Risk: Low Anesthetic Plan Anesthetic Plan: GA Disposition: Standard PACU
--- NOTE | 2023-11-11 14:11 | P.OP_ITS ---
Operative Note Operative Note Date of Service: 11/11/23 Narrative: PreOperative Diagnosis:?neurogenic bladder Post Operative Diagnosis:?neurogenic bladder Procedure:? 1. Cystoscopy 2. Suprapubic tube placement Surgeon: Dr Guillaume Lea Anesthesia:?Sedation plus local Indications for procedure: Procedure: After informed consent was verified the patient was brought to the operating room and placed in a supine position.? Anesthesia was administered per protocol. The patient was placed in a modified dorsal lithotomy position and prepped and draped in a sterile fashion. A safety pause was performed confirming patient identity, procedure and antibiotics. A 22 Macedonian cystoscope was inserted per urethra. Bladder was examined in its entirety. No abnormalities seen. Air bubble was located at the dome of the bladder. A finder needle was inserted 2 fingerbreaths above the symphysis pubis on the abdomen into the bladder.? The needle was visualized in the bladder via cystoscopy. Local anesthetic was infiltrated subcutaneously around the needle introduction site. A small, 1cm horizontal incision was made.? A trocar introducer was advanced through the abdominal wall into the bladder under visualization. The obturator was removed and a 18 Fr gifford catheter placed. 7cc was used to inflate the balloon. The external portion of the trocar was removed. Dressing was placed, the bladder was emptied, and a drainage bag was attached. The patient tolerated the procedure and was transferred in stable condition to the recovery area. Suprapubic tube will be changed in 1 month with a follow-up office visit.
== END 2023-11-11 15:50 | disposition home or self-care (01) ==
PROVIDERS: PCP Internal Medicine; Visit Provider Urology
PROC: (CPT 51102; principal; 2023-11-11 12:20)
DX: N31.9 Neuromuscular dysfunction of bladder, unspecified (principal); R33.9 Retention of urine, unspecified; I11.0 Hypertensive heart disease with heart failure; I50.20 Unspecified systolic (congestive) heart failure; E11.9 Type 2 diabetes mellitus without complications; E78.5 Hyperlipidemia, unspecified; F10.10 Alcohol abuse, uncomplicated; Z79.899 Other long term (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; Z79.84 Long term (current) use of oral hypoglycemic drugs
CPT/HCPCS: 51102; 82947; J1100; J1956; J2405; J2704; J2795; J3010

== ENCOUNTER → 2023-11-11 10:28 | Outpatient (BNV) | payer MEDICARE, OTHER, SELFPAY | PROVIDERS: PCP Internal Medicine; Visit Provider Urology | DX: N31.9 Neuromuscular dysfunction of bladder, unspecified (principal) | CPT/HCPCS: 51102 ==

== ENCOUNTER 2023-11-12 05:15 | Emergency (ER) | payer MEDICARE, OTHER, SELFPAY ==
[2023-11-12 05:20] VITALS: BP 106/64; BP 110/86; PULSE 100; PULSE 101; RESP 17; TEMP 36.4; O2SAT 95; O2SAT 97; BMI 23.7
[2023-11-12 05:36] LABS: MANUAL DIFF FLAG NO
[2023-11-12 05:38] LABS: Basophils Percent Auto 0.3 % (0-2); Eosinophils Absolute Auto 0.1 X10*3/uL (0.0-0.4); Eosinophils Percent Auto 0.6 % (0-4); Hematocrit 30.6 % (42.0-52.0); Hemoglobin 9.7 g/dl (14.0-18.0); Imm Gran Abs Auto 0.02 X10*3/uL (0.00-0.03); Imm Gran Pct Auto 0.2 % (0.0-0.4); Lymphocytes Absolute Auto 0.9 X10*3/uL (1.2-4.9); Lymphocytes Percent Auto 9.4 % (20-40); Mean Corpuscular HGB Conc 31.7 g/dl (31.0-36.0); Mean Corpuscular Hemoglobin 28.6 pg (27.0-33.0); Mean Corpuscular Volume 90.3 fL (80.0-98.0); Mean Platelet Volume 9.7 fL (9.4-12.4); Monocytes Absolute Auto 0.6 X10*3/uL (0.1-1.2); Neutrophils Absolute Auto 7.5 x10*3/uL (2.0-8.3); Neutrophils Percent Auto 82.5 % (45-73); Platelet Count 296 X10*3/uL (160-400); Red Blood Count 3.39 X10*6/uL (4.60-5.80); Red Cell Distribution Width 18.5 % (11.0-16.0); White Blood Count 9.1 X10*3/uL (4.8-10.8)
[2023-11-12 05:52] LABS: Alanine Aminotransferase 13 U/L (0-40); Albumin Level 3.7 g/dL (3.5-5.0); Alkaline Phosphatase 73 U/L (39-117); Anion Gap 18 (12-20); Aspartate Amino Transferase 17 U/L (5-37); Bilirubin Total 0.7 mg/dL (0.0-1.0); Blood Urea Nitrogen 23 mg/dL (9-16); Calcium 9.5 mg/dL (8.4-10.2); Carbon Dioxide 16 mmol/L (22-29); Chloride 108 mmol/L (96-108); Estimated Glomerular Filt Rate > 60; Glucose Random 118 mg/dL (60-115); Potassium 4.4 mmol/L (3.3-5.1); Sodium 138 mmol/L (135-145); Total Protein 7.2 g/dL (6.5-8.0)
[2023-11-12 05:57] LABS: Appearance Urine Turbid; Color Urine RED; Glucose Urine UA 100 mg/dL (Negative); Leukocyte Esterase Urine Trace (Negative); Nitrite Urine Positive (Negative); PH 6.5 (5.0-9.0); Specific Gravity - Urine 1.025 (1.005-1.025); UMIC TRIGGER UACC YES; Urine Blood Large (3+) (Negative); Urine Ketones Trace mg/dL (Negative); Urine Protein 300 (3+) mg/dL (Neg-Trace)
[2023-11-12 05:59] LABS: Bacteria Urine 1+ (None Seen); Hyaline Casts Urine 0-2 /LPF (0-2); RBC Urine >20 /HPF (0-2); Squamous Epithelial Cell Urine 0-2 /HPF (0-2); UACC Culture Trigger YES
[2023-11-12 06:20] VITALS: BP 98/57; PULSE 97; RESP 18; TEMP 36.2; O2SAT 97
--- NOTE | 2023-11-12 07:19 | ED.MALEGU ---
HPI - Male Genitourinary General Chief complaint: Urogenital-Male Stated complaint: PAIN/BLEEDING FROM SUPRAPUBIC CATH Time Seen by Provider: 11/12/23 07:19 Source: patient Mode of arrival: EMS Limitations: no limitations History of Present Illness ED Provider: Dr. Steve Wilcox HPI Narrative: 88-year-old male with a history of diabetes mellitus, hypertension, hyperlipidemia, cardiomyopathy, HFrEF who had a cystoscopic placed suprapubic catheter yesterday here at this facility by Dr. Lea. Patient presents with dark blood coming around the catheter and bloody urine. He initially complained of suprapubic pain but states that this is resolved. He denied fever, chills, chest pain or shortness of breath. Patient was seen in the emergency depart on 11/03/2023 for urinary tract infection with urine culture from 10/29/2023 to organisms: Enterobacter clocae and Serratia marcescens which were both sensitive to Levaquin. Patient was treated with Levaquin 250 mg daily x7 days. Related Data Home Medications ?Medication ?Instructions ?Recorded ?Confirmed valsartan 40 mg tablet 20 mg PO BID 11/07/23 11/07/23 Previous Rx's ?Medication ?Instructions ?Recorded blood sugar diagnostic (FreeStyle #100 ea 04/02/22 Lite Strips) blood-glucose meter (Accu-Chek #1 ea 05/24/22 Guide Glucose Meter) blood-glucose meter (FreeStyle #1 ea 06/09/22 Lite Meter kit) aspirin 81 mg chewable tablet 81 mg PO DAILY #30 tabs 07/29/23 atorvastatin 40 mg tablet 40 mg PO BEDTIME #30 tabs 07/29/23 furosemide 20 mg tablet 20 mg PO QAM #30 tabs 07/29/23 finasteride 5 mg tablet 5 mg PO DAILY 90 days #90 tabs 09/04/23 tamsulosin 0.4 mg capsule 0.4 mg PO DAILY 90 days #90 caps 09/04/23 metoprolol succinate 25 mg 25 mg PO DAILY #30 tabs 10/14/23 tablet,extended release 24 hr sulfamethoxazole 800 1 tab PO BID 7 days #14 tabs 10/29/23 mg-trimethoprim 160 mg tablet (Bactrim DS) glyburide 2.5 mg tablet 2.5 mg PO BID #60 tabs 10/30/23 metformin 500 mg tablet 1,000 mg (2 x 500 mg) PO BID 30 10/30/23 days #120 tabs phenazopyridine 100 mg tablet 100 mg PO TID PRN pain 3 days #15 10/30/23 (Pyridium) tabs levofloxacin 250 mg tablet 250 mg PO DAILY #7 tabs 11/03/23 Allergies Allergy/AdvReac Type Severity Reaction Status Date / Time No Known Allergies Allergy Verified 11/12/23 05:22 [No Known Allergies*] Review of Systems Review of Systems: Yes all other systems are reviewed and are negative [facility] Past Medical History Medical History Acute exacerbation of CHF (congestive heart failure) HFrEF (heart failure with reduced ejection fraction) Hyperlipidemia Alcohol abuse Diabetes mellitus Hypertension Surgical History History of cardiac cath History of hernia repair Family History Family History Father Liver problem Mother Past heart attack Brother Cancer Sister Cancer Social History Social History Housing: House Unable to assess alcohol history related to: Unknown Alcohol intake: never Patient Tobacco Use Status: Never used Tobacco Smoked in Last 30 Days: No e-Cigarette/Vaping Use: Never Used Second Hand Smoke Exposure: No Use of substances other than those prescribed or required for medical reasons: No Advance Directives: No Advance Directives Information Provided: Yes Do you have a plan to hurt others: No Plan service: Yes Current occupational status: retired Cognitive needs: No Hearing needs: No Vision needs: Yes (reading glasses) Physical Exam Vital Signs: Vital Signs: Last Vital Signs Temp 97.7 F 11/12/23 07:24 Pulse 86 11/12/23 07:24 Resp 14 11/12/23 07:24 BP 108/59 L 11/12/23 07:24 Pulse Ox 96 11/12/23 07:24 O2 Del Method Room Air 11/12/23 07:24 BMI result Body Mass Index 23.7 Vital signs were normal Exam: General: Awake, alert in no distress Head: Normocephalic, atraumatic EENT: PERRL, Lids normal, sclera normal, conjunctiva normal, nose normal , ears normal, throat without erythema or exudates Neck: Supple, no adenopathy Lung: breath sounds symmetric, no wheezing, rales or rhonchi Chest: symmetric movement, nontender Heart: regular rate and rhythm, normal S1, S2 no murmurs or rubs Abdomen: soft, non-tender, nondistended, normal bowel sounds. The dressing around the super pubic catheter was soaked through with blood, this was removed and there was no blood coming from around the catheter. The patient does have dark bloody urine. There is a proximally 600 cc of bloody urine in the Kellogg catheter bag. Back: no vertebral tenderness, no CVAT Extremities: no deformities, moves all extremities symmetrically Neuro: Awake, alert, oriented, normal speech, cranial nerves intact, moves all extremities symmetrically Psych: Pleasant, cooperative Medical Decision Making Medical Decision Making MDM Narrative: 88-year-old male with a history of diabetes mellitus, hypertension, hyperlipidemia, cardiomyopathy, HFrEF who had a cystoscopic placed suprapubic catheter yesterday here at this facility by Dr. Lea who presents emergency department for evaluation of bleeding around the catheter and dark blood in the Kellogg bag. Patient initially had suprapubic pain but he states this resolved when he got to the emergency department. Vital signs were normal. He had no abdominal tenderness. Suprapubic catheter dressing was soaked through with blood and the patient has a dark hematuria through the catheter with a proximally 600 cc of bloody urine in the catheter bag. The areas no active bleeding around the Kellogg catheter site and I believe that the blood was most likely hematuria that leaked around the catheter. Differential diagnosis: ?Includes but is not limited to urinary tract infection, gross hematuria, Kellogg catheter obstruction secondary to clot, anemia, electrolyte abnormality Following evaluation was ordered: CBC, CMP, urinalysis Course: My independent interpretation patient's laboratory evaluation as follows: Chronic normocytic anemia with an H&H of 9.7 and 30.6. Elevated BUN 23 with a normal creatinine. Elevated glucose 118. Low CO2 16. LFTs were normal. Urinalysis revealed greater than 20 RBCs, greater than 10 WBCs, 1+ bacteria. Patient just completed a course of Levaquin for urinary tract infection and I do not think that he needs repeat course of antibiotics at this time. Patient's bladder scan did reveal 200 cc of urine but he was continuing to drain bloody urine through his suprapubic tube. I did discuss disposition with his urologist, Dr. Lea. Dr. Lea recommended stopping the patient's aspirin and discharging him to home. Patient was advised to return to the emergency department if he weeks bloody urine around the catheter, develops suprapubic pain or abdominal distention. Admission/Observation Consideration of admission/observation: Escalation of care including admission/observation considered Consult Healthcare Provider Management of the patient was discussed with: Morphology Teacher (Patient's Urologist, Dr. Lea) Lab Data MDM Lab Attestation statement: I reviewed the patient's lab results. 11/12/23 05:33 11/12/23 05:33 Labs: Lab Results 11/12/23 11/12/23 Range/Units 05:33 05:44 WBC 9.1 (4.8-10.8) X10*3/uL RBC 3.39 L (4.60-5.80) X10*6/uL Hgb 9.7 L (14.0-18.0) g/dl Hct 30.6 L (42.0-52.0) % MCV 90.3 (80.0-98.0) fL MCH 28.6 (27.0-33.0) pg MCHC 31.7 (31.0-36.0) g/dl RDW 18.5 H (11.0-16.0) % Plt Count 296 D (160-400) X10*3/uL MPV 9.7 (9.4-12.4) fL Immature Gran % (Auto) 0.2 (0.0-0.4) % Neut % (Auto) 82.5 H (45-73) % Lymph % (Auto) 9.4 L (20-40) % [place] % (Auto) 7.0 (2-11) % Eos % (Auto) 0.6 (0-4) % Baso % (Auto) 0.3 (0-2) % Lymph # (Auto) 0.9 L (1.2-4.9) X10*3/uL [place] # (Auto) 0.6 (0.1-1.2) X10*3/uL Eos # (Auto) 0.1 (0.0-0.4) X10*3/uL Baso # (Auto) 0.0 (0.0-0.2) X10*3/uL Abs Immat Gran (auto) 0.02 (0.00-0.03) X10*3/uL Absolute Neuts (auto) 7.5 (2.0-8.3) x10*3/uL Absolute Nucleated RBC 0.000 (0.0-0.012) X10*3/uL Nucleated RBC % (auto) 0.0 (0.0-0.2) /100WBC Sodium 138 (135-145) mmol/L Potassium 4.4 (3.3-5.1) mmol/L Chloride 108 (96-108) mmol/L Carbon Dioxide 16 L (22-29) mmol/L Anion Gap 18 (12-20) BUN 23 H (9-16) mg/dL Creatinine 0.92 (0.5-1.4) mg/dL Estim Creat Clear Calc 62.0 Estimated GFR > 60 Random Glucose 118 H (60-115) mg/dL Calcium 9.5 (8.4-10.2) mg/dL Total Bilirubin 0.7 (0.0-1.0) mg/dL AST 17 (5-37) U/L ALT 13 (0-40) U/L Alkaline Phosphatase 73 (39-117) U/L Total Protein 7.2 (6.5-8.0) g/dL Albumin 3.7 (3.5-5.0) g/dL Urine Color RED Urine Appearance Turbid Urine pH 6.5 (5.0-9.0) Ur Specific [place] 1.025 (1.005-1.025) Urine Protein 300 (3+) H (Neg-Trace) mg/dL Urine Glucose (UA) 100 H (Negative) mg/dL Urine Ketones Trace (Negative) mg/dL Urine Blood Large (3+) H (Negative) Urine Nitrite Positive H (Negative) Ur Leukocyte Esterase Trace H (Negative) Urine RBC >20 H (0-2) /HPF Urine WBC 6-10 H (0-5) /HPF Ur Squamous Epith Cells 0-2 (0-2) /HPF Urine Bacteria 1+ (None Seen) Hyaline Casts 0-2 (0-2) /LPF External Record Review External record reviewed: Other (Operative note) Discharge Plan Discharge Clinical Impression: Gross hematuria Patient Disposition: Home, Self-Care Instructions: Hematuria (ED) Additional Instructions: Your blood work was unremarkable. You are draining bloody urine and this can sometimes happen after a suprapubic catheter placement I believe that you may have had a blood clot that stop the drainage of urine from the catheter tube and cause bloody urine to leak through the hole in your belly that the catheter goes through. At this time in the emergency department you are not having any belly pain and your draining bloody urine through the catheter. I did talk to your urologist Dr. Lea who recommends that you stop your aspirin and that we discharge you to home Call his office for a follow-up appointment within 1 week. If the catheter gets blocked again you will develop abdominal pain. You will feel bloated and urine will not drained through the catheter tube. If you get these symptoms then return to the emergency department for re-evaluation. Please return to the emergency department if your symptoms get worse or if you develop any symptoms that are concerning to you. Prescriptions: No Action (DME) FreeStyle Lite Strips Strip See Rx Instructions .Route Qty: 100 8RF Rx Instructions: to check blood sugars once a day (DME) blood-glucose meter [Accu-Chek Guide Glucose Meter] [facility] See Rx Instructions .Route Qty: 1 0RF Rx Instructions: As directed (DME) blood-glucose meter [FreeStyle Lite Meter] Kit See Rx Instructions .ROUTE .COMPLEX Qty: 1 0RF Dose Instruction: USE DIRECTED Rx Instructions: USE DIRECTED aspirin 81 mg tablet,chewable 81 mg PO DAILY Qty: 30 5RF atorvastatin 40 mg tablet 40 mg PO BEDTIME Qty: 30 5RF furosemide 20 mg tablet 20 mg PO QAM Qty: 30 5RF metoprolol succinate 25 mg tablet extended release 24 hr 25 mg PO DAILY Qty: 30 5RF Rx Instructions: Stop Carvedilol. Start Metoprolol phenazopyridine [Pyridium] 100 mg tablet 100 mg PO TID PRN (Reason: pain) 3 Days Qty: 15 0RF glyburide 2.5 mg tablet 2.5 mg PO BID Qty: 60 4RF metformin 500 mg tablet 1,000 mg PO BID 30 Days Qty: 120 0RF valsartan 40 mg tablet 20 mg PO BID levofloxacin 250 mg tablet 250 mg PO DAILY Qty: 7 0RF sulfamethoxazole-trimethoprim [Bactrim DS] 800-160 mg tablet 1 tab PO BID 7 Days Qty: 14 0RF finasteride 5 mg tablet 5 mg PO DAILY 90 Days Qty: 90 1RF tamsulosin 0.4 mg capsule 0.4 mg PO DAILY 90 Days Qty: 90 0RF Print Language: Scottish
[2023-11-12 07:24] VITALS: BP 108/59; PULSE 86; RESP 14; TEMP 36.5; O2SAT 96
--- NOTE | 2023-11-12 07:26 | PC.NURSE ---
Care of Pt assumed at change of shift. Pt is observed resting comfortably with eye closed however easily aroused by thin RN entering the room. VSS, afebrile, and A&Ox3 Pt awaiting ED Provider.
--- NOTE | 2023-11-12 09:48 | PC.NURSE ---
Bladder scan completed showing 212, reported to ED Provider. Urine bag emptied with 300 bloody urine noted, no clots present. Pt given coffee, approved by provider. Awaiting disposition.
[2023-11-12 09:59] VITALS: BP 106/63; PULSE 99; RESP 18; O2SAT 97
--- NOTE | 2023-11-12 10:03 | PC.NURSE ---
Pan called (kory) to merchandise pickup/receiving associate pt for transport home and discharge instructions also reviewed with Pan.
[2023-11-12 10:16] VITALS: BP 106/63; PULSE 99; RESP 18; TEMP -17.7; TEMP 0; O2SAT 97
== END 2023-11-12 10:16 | disposition home or self-care (01) ==
PROVIDERS: Emergency Provider Emergency Medicine Emergency Medical Services
DX: R31.0 Gross hematuria (principal); Z96.0 Presence of urogenital implants
CPT/HCPCS: 36415; 80053; 81001; 85025; 87086; 87088; 99283; 99284

== ENCOUNTER → 2023-11-13 10:31 | Outpatient (BNVA) | payer MEDICARE, OTHER, SELFPAY | PROVIDERS: Visit Provider Urology | DX: R33.9 Retention of urine, unspecified (principal) | CPT/HCPCS: 51700 ==

== ENCOUNTER 2023-11-14 15:37 | Emergency (ER) | payer MEDICARE, OTHER, SELFPAY ==
--- NOTE | 2023-11-14 15:41 | ED_ITS ---
HPI - General Adult General Chief complaint: Urogenital-Male Stated complaint: Post-op issues, surgery on 11/10 Time Seen by Provider: 11/14/23 18:18 Source: patient and EMS Mode of arrival: EMS Limitations: no limitations History of Present Illness ED Provider: Dr. Amara Pierce HPI narrative: Patient comes to the emergency room complaining of having issues with his new suprapubic catheter. About 3 days ago, patient had surgery for a new suprapubic catheter placement. Patient states that it got block today and he was feeling of fluid and his suprapubic area was hurting quite a bit. Related Data Home Medications ?Medication ?Instructions ?Recorded ?Confirmed valsartan 40 mg tablet 20 mg PO BID 11/07/23 11/07/23 Previous Rx's ?Medication ?Instructions ?Recorded blood sugar diagnostic (FreeStyle #100 ea 04/02/22 Lite Strips) blood-glucose meter (Accu-Chek #1 ea 05/24/22 Guide Glucose Meter) blood-glucose meter (FreeStyle #1 ea 06/09/22 Lite Meter kit) aspirin 81 mg chewable tablet 81 mg PO DAILY #30 tabs 07/29/23 atorvastatin 40 mg tablet 40 mg PO BEDTIME #30 tabs 07/29/23 furosemide 20 mg tablet 20 mg PO QAM #30 tabs 07/29/23 finasteride 5 mg tablet 5 mg PO DAILY 90 days #90 tabs 09/04/23 tamsulosin 0.4 mg capsule 0.4 mg PO DAILY 90 days #90 caps 09/04/23 metoprolol succinate 25 mg 25 mg PO DAILY #30 tabs 10/14/23 tablet,extended release 24 hr sulfamethoxazole 800 1 tab PO BID 7 days #14 tabs 10/29/23 mg-trimethoprim 160 mg tablet (Bactrim DS) glyburide 2.5 mg tablet 2.5 mg PO BID #60 tabs 10/30/23 metformin 500 mg tablet 1,000 mg (2 x 500 mg) PO BID 30 10/30/23 days #120 tabs phenazopyridine 100 mg tablet 100 mg PO TID PRN pain 3 days #15 10/30/23 (Pyridium) tabs levofloxacin 250 mg tablet 250 mg PO DAILY #7 tabs 11/03/23 fesoterodine 4 mg tablet,extended 4 mg PO DAILY 14 days #14 tabs 11/14/23 release 24 hr (Toviaz) Allergies Allergy/AdvReac Type Severity Reaction Status Date / Time No Known Allergies Allergy Verified 11/14/23 15:48 [No Known Allergies*] Review of Systems 2 Review of Systems: Constitutional : No Weight loss, No Fever, No Chills, No Night Sweats, No Fatigue, No Malaise ENT/Mouth : No Hearing loss, No Ear Pain, No Nasal Congestion, No Sinus Pain, No Hoarseness, No sore throat, No Rhinorrhea, No Swallowing Difficulty Eyes: No Eye Pain, No Swelling, No Redness, No Foreign Body, No Discharge, No Vision Changes Cardiovascular : No Chest Pain, No SOB, No Dyspnea on Exertion, No Orthopnea, No Edema, No Palpitations Respiratory : No Cough, No Sputum, No Wheezing, No Smoke Exposure, No Dyspnea Gastrointestinal : No Nausea, No Vomiting, No Diarrhea, No Constipation, No abdominal Pain, No Hematochezia, No Melena Genitourinary : Complaining of hematuria and suprapubic catheter blockage,, No Dysuria, No Urinary Frequency, No Urgency, No Flank Pain, No Urinary Flow Changes, No Hesitancy Musculoskeletal : No joint pain, No Myalgias, No Joint Swelling Skin : No Skin Lesions, No rash Neuro : No Weakness, No Numbness, No Paresthesias, No Loss of Consciousness, No Dizziness, No Headache Psych : No Anxiety/Panic, No Depression, No SI/HI/AH/VH, No Social Issues, Heme/Lymph: No Bruising, No Bleeding,No Lymphadenopathy Endocrine : No Polyuria, No Polydipsia, No Temperature Intolerance [facility] Past Medical History Medical History Acute exacerbation of CHF (congestive heart failure) HFrEF (heart failure with reduced ejection fraction) Hyperlipidemia Alcohol abuse Diabetes mellitus Hypertension Surgical History History of cardiac cath History of hernia repair Family History Family History Father Liver problem Mother Past heart attack Brother Cancer Sister Cancer Social History Social History Housing: House Unable to assess alcohol history related to: Unknown Alcohol intake: never Patient Tobacco Use Status: Never used Tobacco Smoked in Last 30 Days: No e-Cigarette/Vaping Use: Never Used Second Hand Smoke Exposure: No Use of substances other than those prescribed or required for medical reasons: No Advance Directives: No Advance Directives Information Provided: No Do you have a plan to hurt others: No Plan service: Yes Current occupational status: retired Cognitive needs: No Hearing needs: No Vision needs: Yes (reading glasses) Physical Exam ED Vital Signs: Vital Signs - 24 hr 11/14/23 15:46 11/14/23 18:22 Temperature 97.4 F 96.9 F Pulse Rate 116 H 112 H Respiratory Rate 16 20 Blood Pressure 95/64 108/75 Pulse Oximetry 95 97 Oxygen Delivery Method Room Air Room Air BMI result Body Mass Index 23.6 Const Other: Appearance: Alert. Oriented X3. No acute distress. Eyes: Pupils equal, round and reactive to light. ENT: Pharynx normal. Neck: Normal inspection. Neck supple. No lymph nodes noted. No crepitus CVS: Normal heart rate and rhythm. Pulses normal. Normal S1 and S2 Respiratory: No respiratory distress. Breath sounds normal. No Wheezing. No rales Abdomen: Soft and nontender. No rigidity. No distention. Suprapubic catheter in place, incision looks clean. Skin: Skin warm and dry. Normal skin color. Normal skin turgor. Extremities: No lower extremity edema. No Lacerations. No Rash Neuro: Oriented X 3. No motor deficit. No sensory deficit. Moving all extremities. No slurred speech. CN 2 through 12 grossly intact Psych: calm, cooperative, normal affect Course Course Course Narrative: This is a rapid medical exam performed by Yasmin Mcdaniels NP: Additional HPI, ROS, PE not included below will be deferred to primary provider. Patient is an 88-year-old male with history of suprapubic catheter, ischemic cardiomyopathy, heart failure with reduced ejection fraction, cardiac catheterization, DM, HTN presenting to the emergency department stating that his indwelling catheter is still not draining. Small amount of dark brown urine in bag. Visiting nurse attempted to flush today without success. Recently seen by Dr. Lea. Denies fevers. Plan: UA, labs Medical Decision Making Medical Decision Making MDM Narrative: Patient's suprapubic catheter was thoroughly manually rinsed with 3 L of normal saline. A very large amount of clots was extracted. Patient's suprapubic catheter is working well, able to draw fluid/urine from the Kellogg catheter without any difficulty, no longer passing blood clots, fluid from the bladder cleared up -after the manual irrigation, patient states that he feels much better, no longer having bladder spasms/pain. Fluid draining well into the bag Lab Data 11/14/23 16:35 11/14/23 16:35 Labs: Lab Results 11/14/23 Range/Units 16:35 WBC 10.5 (4.8-10.8) X10*3/uL RBC 3.19 L (4.60-5.80) X10*6/uL Hgb 9.1 L (14.0-18.0) g/dl Hct 28.5 L (42.0-52.0) % MCV 89.3 (80.0-98.0) fL MCH 28.5 (27.0-33.0) pg MCHC 31.9 (31.0-36.0) g/dl RDW 18.7 H (11.0-16.0) % Plt Count 300 (160-400) X10*3/uL MPV 9.8 (9.4-12.4) fL Immature Gran % (Auto) 0.5 H (0.0-0.4) % Neut % (Auto) 76.7 H (45-73) % Lymph % (Auto) 12.0 L (20-40) % [place] % (Auto) 8.4 (2-11) % Eos % (Auto) 1.8 (0-4) % Baso % (Auto) 0.6 (0-2) % Lymph # (Auto) 1.3 (1.2-4.9) X10*3/uL [place] # (Auto) 0.9 (0.1-1.2) X10*3/uL Eos # (Auto) 0.2 (0.0-0.4) X10*3/uL Baso # (Auto) 0.1 (0.0-0.2) X10*3/uL Abs Immat Gran (auto) 0.05 H (0.00-0.03) X10*3/uL Absolute Neuts (auto) 8.1 (2.0-8.3) x10*3/uL Absolute Nucleated RBC 0.000 (0.0-0.012) X10*3/uL Nucleated RBC % (auto) 0.0 (0.0-0.2) /100WBC Sodium 137 (135-145) mmol/L Potassium 4.1 (3.3-5.1) mmol/L Chloride 107 (96-108) mmol/L Carbon Dioxide 18 L (22-29) mmol/L Anion Gap 16 (12-20) BUN 21 H (9-16) mg/dL Creatinine 1.00 (0.5-1.4) mg/dL Estim Creat Clear Calc 53.7 Estimated GFR > 60 Random Glucose 122 H (60-115) mg/dL Calcium 9.7 (8.4-10.2) mg/dL Total Bilirubin 0.7 (0.0-1.0) mg/dL AST 12 (5-37) U/L ALT 11 (0-40) U/L Alkaline Phosphatase 78 (39-117) U/L Total Protein 7.4 (6.5-8.0) g/dL Albumin 3.9 (3.5-5.0) g/dL Discharge Plan Discharge Clinical Impression: Suprapubic catheter dysfunction Patient Disposition: Home, Self-Care Instructions: How to Care for Your Suprapubic Catheter (DC) Additional Instructions: Please follow-up with your primary care physician tomorrow. If you have any worsening or new symptoms, please return to the emergency room or call 911 Prescriptions: No Action (DME) FreeStyle Lite Strips Strip See Rx Instructions .Route Qty: 100 8RF Rx Instructions: to check blood sugars once a day (DME) blood-glucose meter [Accu-Chek Guide Glucose Meter] Misc See Rx Instructions .Route Qty: 1 0RF Rx Instructions: As directed (DME) blood-glucose meter [FreeStyle Lite Meter] Kit See Rx Instructions .ROUTE .COMPLEX Qty: 1 0RF Dose Instruction: USE DIRECTED Rx Instructions: USE DIRECTED aspirin 81 mg tablet,chewable 81 mg PO DAILY Qty: 30 5RF atorvastatin 40 mg tablet 40 mg PO BEDTIME Qty: 30 5RF furosemide 20 mg tablet 20 mg PO QAM Qty: 30 5RF metoprolol succinate 25 mg tablet extended release 24 hr 25 mg PO DAILY Qty: 30 5RF Rx Instructions: Stop Carvedilol. Start Metoprolol phenazopyridine [Pyridium] 100 mg tablet 100 mg PO TID PRN (Reason: pain) 3 Days Qty: 15 0RF glyburide 2.5 mg tablet 2.5 mg PO BID Qty: 60 4RF metformin 500 mg tablet 1,000 mg PO BID 30 Days Qty: 120 0RF fesoterodine [Toviaz] 4 mg tablet extended release 24 hr 4 mg PO DAILY 14 Days Qty: 14 0RF valsartan 40 mg tablet 20 mg PO BID levofloxacin 250 mg tablet 250 mg PO DAILY Qty: 7 0RF sulfamethoxazole-trimethoprim [Bactrim DS] 800-160 mg tablet 1 tab PO BID 7 Days Qty: 14 0RF finasteride 5 mg tablet 5 mg PO DAILY 90 Days Qty: 90 1RF tamsulosin 0.4 mg capsule 0.4 mg PO DAILY 90 Days Qty: 90 0RF Print Language: Danish
[2023-11-14 15:46] VITALS: BP 95/64; PULSE 116; RESP 16; TEMP 36.3; O2SAT 95; BMI 23.6
[2023-11-14 16:50] LABS: Basophils Absolute Auto 0.1 X10*3/uL (0.0-0.2); Basophils Percent Auto 0.6 % (0-2); Eosinophils Absolute Auto 0.2 X10*3/uL (0.0-0.4); Eosinophils Percent Auto 1.8 % (0-4); Hematocrit 28.5 % (42.0-52.0); Hemoglobin 9.1 g/dl (14.0-18.0); Imm Gran Abs Auto 0.05 X10*3/uL (0.00-0.03); Imm Gran Pct Auto 0.5 % (0.0-0.4); Lymphocytes Absolute Auto 1.3 X10*3/uL (1.2-4.9); MANUAL DIFF FLAG NO; Mean Corpuscular HGB Conc 31.9 g/dl (31.0-36.0); Mean Corpuscular Hemoglobin 28.5 pg (27.0-33.0); Mean Corpuscular Volume 89.3 fL (80.0-98.0); Mean Platelet Volume 9.8 fL (9.4-12.4); Monocytes Absolute Auto 0.9 X10*3/uL (0.1-1.2); Monocytes Percent Auto 8.4 % (2-11); Neutrophils Absolute Auto 8.1 x10*3/uL (2.0-8.3); Neutrophils Percent Auto 76.7 % (45-73); Platelet Count 300 X10*3/uL (160-400); Red Blood Count 3.19 X10*6/uL (4.60-5.80); Red Cell Distribution Width 18.7 % (11.0-16.0); White Blood Count 10.5 X10*3/uL (4.8-10.8)
[2023-11-14 17:04] LABS: Alanine Aminotransferase 11 U/L (0-40); Albumin Level 3.9 g/dL (3.5-5.0); Alkaline Phosphatase 78 U/L (39-117); Anion Gap 16 (12-20); Aspartate Amino Transferase 12 U/L (5-37); Bilirubin Total 0.7 mg/dL (0.0-1.0); Blood Urea Nitrogen 21 mg/dL (9-16); Calcium 9.7 mg/dL (8.4-10.2); Carbon Dioxide 18 mmol/L (22-29); Chloride 107 mmol/L (96-108); Creatinine Clr Calc Pharmacy 53.7; Estimated Glomerular Filt Rate > 60; Glucose Random 122 mg/dL (60-115); Potassium 4.1 mmol/L (3.3-5.1); Sodium 137 mmol/L (135-145); Total Protein 7.4 g/dL (6.5-8.0)
[2023-11-14 18:22] VITALS: BP 108/75; PULSE 112; RESP 20; TEMP 36.1; O2SAT 97
--- NOTE | 2023-11-14 20:39 | PC.NURSE ---
Dr Pierce irrigated patient's suprapubic catheter manually with 3 L of normal saline with large amount of clots was extracted, after irrigation patient's suprapubic cath draining well with no clots noted. Patient denies any pain after manual cath irrigation.
[2023-11-14 20:45] VITALS: BP 99/54; PULSE 115; RESP 14; TEMP 36.8; O2SAT 97
--- NOTE | 2023-11-14 20:46 | PC.NURSE ---
Dr. Pierce aware of patient's BP 99/54, P 115, no new orders at this time.
--- NOTE | 2023-11-14 20:48 | PC.NURSE ---
Per Dr Pierce urine spec for UA and CS is not needed at this time.
[2023-11-14 20:59] VITALS: BP 99/54; PULSE 115; RESP 14; TEMP 36.8; O2SAT 97
== END 2023-11-14 21:00 | disposition home or self-care (01) ==
PROVIDERS: Registered Nurse Emergency; Emergency Provider Emergency Medicine; PCP Internal Medicine
DX: G89.18 Other acute postprocedural pain (principal); T83.098A Other mechanical complication of other urinary catheter, initial encounter; Y73.8 Miscellaneous gastroenterology and urology devices associated with adverse incidents, not elsewhere classified; Y92.89 Other specified places as the place of occurrence of the external cause; Z79.899 Other long term (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
CPT/HCPCS: 36415; 51798; 80053; 85025; 99283; 99284

== ENCOUNTER 2023-11-16 12:25 | Inpatient (IN) | payer MEDICARE, OTHER, SELFPAY ==
--- NOTE | ~2023-11-16 | XR_ITS ---
EXAMINATION: XR CHEST CLINICAL INFORMATION: Reason for Exam Dyspnea COMPARISON: Chest radiograph 07/02/2023 TECHNIQUE: One view of the chest FINDINGS: Lines and tubes: EKG leads overlie the patient. Similar small right pleural effusion and right basilar consolidation. No pneumothorax. Unchanged cardiomediastinal silhouette. XR/XR chest 1V IMPRESSION: Similar small right pleural effusion and right basilar consolidation.
[2023-11-16 12:32] VITALS: BP 101/69; BP 106/83; PULSE 105; PULSE 110; RESP 20; TEMP 36.7; O2SAT 93; O2SAT 95; BMI 23.0
--- NOTE | 2023-11-16 12:34 | ED_ITS ---
HPI - SOB/Dyspnea General Chief Complaint: Dyspnea Stated Complaint: sob Time Seen by Provider: 11/16/23 12:27 Source: patient and EMS Mode of arrival: EMS Limitations: no limitations History of Present Illness HPI Narrative: Patient is an 88-year-old male who presents emergency department for evaluation of shortness of breath. He admits to a history of chronic shortness of breath due to his cardiac disease, however he states when he was lying in bed awake this morning around approximately 06:00 he felt a sudden increase in his shortness of breath. This resolved after resting for some time, but upon getting out of bed he had increased dyspnea on exertion today. As the morning passed along his symptoms did not improve so he decided to come to the emergency department for evaluation. He is followed by Cardiology Dr. Cuello, he reports that he is aware of his shortness of breath but it has been ?not bad until today?. He denies associated chest pain, fevers, chills, cough, URI symptoms, swelling of the lower extremities, numbness or tingling of his extremities, dizziness, lightheadedness. Related Data Home Medications ?Medication ?Instructions ?Recorded ?Confirmed valsartan 40 mg tablet 20 mg PO BID 11/07/23 11/07/23 Previous Rx's ?Medication ?Instructions ?Recorded blood sugar diagnostic (FreeStyle #100 ea 04/02/22 Lite Strips) blood-glucose meter (Accu-Chek #1 ea 05/24/22 Guide Glucose Meter) blood-glucose meter (FreeStyle #1 ea 06/09/22 Lite Meter kit) aspirin 81 mg chewable tablet 81 mg PO DAILY #30 tabs 07/29/23 atorvastatin 40 mg tablet 40 mg PO BEDTIME #30 tabs 07/29/23 furosemide 20 mg tablet 20 mg PO QAM #30 tabs 07/29/23 finasteride 5 mg tablet 5 mg PO DAILY 90 days #90 tabs 09/04/23 tamsulosin 0.4 mg capsule 0.4 mg PO DAILY 90 days #90 caps 09/04/23 metoprolol succinate 25 mg 25 mg PO DAILY #30 tabs 10/14/23 tablet,extended release 24 hr sulfamethoxazole 800 1 tab PO BID 7 days #14 tabs 10/29/23 mg-trimethoprim 160 mg tablet (Bactrim DS) glyburide 2.5 mg tablet 2.5 mg PO BID #60 tabs 10/30/23 metformin 500 mg tablet 1,000 mg (2 x 500 mg) PO BID 30 10/30/23 days #120 tabs phenazopyridine 100 mg tablet 100 mg PO TID PRN pain 3 days #15 10/30/23 (Pyridium) tabs levofloxacin 250 mg tablet 250 mg PO DAILY #7 tabs 11/03/23 fesoterodine 4 mg tablet,extended 4 mg PO DAILY 14 days #14 tabs 11/14/23 release 24 hr (Toviaz) Allergies Allergy/AdvReac Type Severity Reaction Status Date / Time No Known Allergies Allergy Verified 11/16/23 12:36 [No Known Allergies*] Review of Systems 2 Review of Systems: Yes all other systems are reviewed and are negative [facility] Past Medical History Attestation statement: The following information was validated with the patient. Source: old records reviewed Medical History Acute exacerbation of CHF (congestive heart failure) HFrEF (heart failure with reduced ejection fraction) Hyperlipidemia Alcohol abuse Diabetes mellitus Hypertension Surgical History History of cardiac cath History of hernia repair Family History Family History Father Liver problem Mother Past heart attack Brother Cancer Sister Cancer Social History Social History Housing: House Unable to assess alcohol history related to: Unknown Alcohol intake: never Patient Tobacco Use Status: Never used Tobacco e-Cigarette/Vaping Use: Never Used Second Hand Smoke Exposure: No Advance Directives: No Advance Directives Information Provided: No Do you have a plan to hurt others: No Plan service: Yes Current occupational status: retired Cognitive needs: No Hearing needs: No Vision needs: Yes (reading glasses) Physical Exam 2 Vital Signs: Vital Signs: Last Vital Signs Temp 98.3 F 11/16/23 14:44 Pulse 103 H 11/16/23 14:44 Resp 17 11/16/23 14:44 BP 101/73 11/16/23 14:44 Pulse Ox 97 11/16/23 14:44 O2 Del Method Room Air 11/16/23 14:44 BMI result Body Mass Index 23.0 Appearance: Alert.?Oriented to person, place and time. No acute distress.?Normal affect. Eyes: Pupils equal, round and reactive to light.? ENT: Pharynx normal.?? Neck: Normal inspection.? Neck supple.?? CVS: Heart sounds normal. Normal heart rate and rhythm.? Pulses normal.?? Respiratory: No respiratory distress.? Lung sounds clear at the apices, rales at the bilateral bases? Abdomen: Soft and non-tender. Normoactive bowel sounds. No pulsatile mass.?? Skin: Skin warm and dry.? Skin appears pale..?? Extremities: No lower extremity edema.? No calf ttp? Neuro: Moves all extremities spontaneously. Sensation intact bilaterally. CN II- XII intact. No focal neuro deficits. Ambulates with normal steady gait. Course Reevaluation(s) Reevaluation #1: EKG changes were reviewed with my attending, Dr. Contreras, not diagnostic for STEMI at this time, plan to continue monitoring closely Time: 13:28 Reevaluation #2: Initial troponin within normal range at 20.9 she has been seen on prior, BNP is elevated 1392, CXR with evidence of right pleural effusion, patient received furosemide 40 mg IV. CXR with radiologist impression for right basilar consolidation, appears unchanged when compared to prior CXR in June of 2023, patient denies any cough, congestion, is afebrile without leukocytosis. His AST and ALT are elevated from baseline, likely sequela from his CHF with hepatic congestion, bilirubin within normal range. Will obtain delta troponin for further evaluation. 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 No respiratory distress, he is speaking 3-4 word sentences, he does occasionally pause to catch a breath. At rest he has no increased work of breathing, no retractions, his room air O2 saturation is 93%, he is not tachypneic, he is mildly tachycardic. Nonedematous, appears euvolemic at this time. He is followed by cardiology at [facility] [place] [facility] with Dr. Cuello, most recent office visit 10/07/2023, underwent dobutamine stress echo which suggested nonviable anterior wall in the LAD territory Will obtain CBC to evaluate for leukocytosis/ anemia, CMP and lipase to evaluate for abnormal electrolytes /abnormal renal function/ abnormal hepatic/biliary function, EKG and troponin to evaluate for ischemia/ACS. Chest x-ray to evaluate for consolidation/ infiltrate/ mass/ pulmonary congestion and Urinalysis. Differential Diagnosis Differential Diagnoses: The differential diagnosis associated with the presentation includes (ACS, CHF exacerbation, viral syndrome, pneumonia) Lab Data MDM Lab Attestation statement: I reviewed the patient's lab results. 11/16/23 13:21 11/16/23 13:22 Labs: Lab Results 11/16/23 11/16/23 11/16/23 Range/Units 13:21 13:22 15:43 WBC 9.5 (4.8-10.8) X10*3/uL RBC 3.31 L (4.60-5.80) X10*6/uL Hgb 9.6 L (14.0-18.0) g/dl Hct 29.0 L (42.0-52.0) % MCV 87.6 (80.0-98.0) fL MCH 29.0 (27.0-33.0) pg MCHC 33.1 (31.0-36.0) g/dl RDW 18.9 H (11.0-16.0) % Plt Count 302 (160-400) X10*3/uL MPV 9.9 (9.4-12.4) fL Immature Gran % (Auto) 0.3 (0.0-0.4) % Neut % (Auto) 76.1 H (45-73) % Lymph % (Auto) 11.9 L (20-40) % [place] % (Auto) 9.4 (2-11) % Eos % (Auto) 1.6 (0-4) % Baso % (Auto) 0.7 (0-2) % Lymph # (Auto) 1.1 L (1.2-4.9) X10*3/uL [place] # (Auto) 0.9 (0.1-1.2) X10*3/uL Eos # (Auto) 0.2 (0.0-0.4) X10*3/uL Baso # (Auto) 0.1 (0.0-0.2) X10*3/uL Abs Immat Gran (auto) 0.03 (0.00-0.03) X10*3/uL Absolute Neuts (auto) 7.2 (2.0-8.3) x10*3/uL Absolute Nucleated RBC 0.000 (0.0-0.012) X10*3/uL Nucleated RBC % (auto) 0.0 (0.0-0.2) /100WBC PT 14.8 H (11.1-13.3) SEC INR 1.2 H (0.9-1.1) Sodium 136 (135-145) mmol/L Potassium 4.3 (3.3-5.1) mmol/L Chloride 107 (96-108) mmol/L Carbon Dioxide 17 L (22-29) mmol/L Anion Gap 16 (12-20) BUN 22 H (9-16) mg/dL Creatinine 0.94 (0.5-1.4) mg/dL Estim Creat Clear Calc 60.1 Estimated GFR > 60 Random Glucose 163 H (60-115) mg/dL Calcium 9.7 (8.4-10.2) mg/dL Total Bilirubin 0.7 (0.0-1.0) mg/dL Direct Bilirubin 0.4 (0.0-0.5) mg/dL AST 285 H (5-37) U/L ALT 392 H (0-40) U/L Alkaline Phosphatase 98 (39-117) U/L Troponin I High Sens 20.9 D 19.8 (<3.5-35.0) ng/L B-Natriuretic Peptide 1392 H (<100) pg/mL Total Protein 7.2 (6.5-8.0) g/dL Albumin 3.9 (3.5-5.0) g/dL Independent Interpretation I performed an independent interpretation of an: EKG and Plain X-Ray (Right pleural effusion) Interpretation: Rate: 106 Rhythm:? Sinus tachycardia Normal P waves.? Normal SHE.?? Normal QRS complex.?? ST T wave :??Slight ST elevation V2-V3 <1mm with T-wave inversion V2-V3 which appear new when compared to cardiology in office EKG on 10/07/2023, not in contiguous leads, nondiagnostic for STEMI qTC: 502 prior studies:? As noted above, otherwise unchanged The study has been interpreted contemporaneously by me. Radiology Impression Discussion of test interpretation with radiology: I have reviewed the radiologist's reading. Radiologist Impression: XR/XR chest 1V IMPRESSION: Similar small right pleural effusion and right basilar consolidation. Independent Historian Clinical information obtained from an independent historian. History obtained from or confirmed by: EMS External Record Review External record reviewed: Outpatient record Critical Care Time Critical Care Time Critical Care Time: Yes Total Critical Care Time: 35 Attestation: I personally attest to this critical care time spent taking care of the patient exclusive of all other billable procedures was approximately 35 minutes including initial evaluation of patient, ordering tests, x-ray interpretation, EKG interpretation, IV diuretics for acute CHF exacerbation, medical consultation, documentation, re-evaluation. Discharge Plan Discharge Clinical Impression: CHF exacerbation Patient Disposition: Admitted As Inpatient Print Language: [place]
--- NOTE | 2023-11-16 12:43 | ECG_ITS ---
Test Reason : SOB Blood Pressure : / mmHG Vent. Rate : 106 BPM Atrial Rate : 106 BPM P-R Int : 170 ms QRS Dur : 114 ms QT Int : 378 ms P-R-T Axes : 039 -42 079 degrees QTc Int : 502 ms Sinus tachycardia Left axis deviation Minimal voltage criteria for LVH, may be normal variant ( Ken product ) T wave abnormality, consider anterior ischemia Abnormal ECG When compared with ECG of 02-JUL-2023 13:26, No significant change was found Referred By: Generic ED Physician Electronically Signed By:NEHEMIAS MCKEON
--- NOTE | 2023-11-16 13:24 | PC.NURSE ---
Pt BIBA from home for sob/dyspnea that started this morning while he was laying in bed. He states the sob gets worse on exertion and subsides when at rest. Pt recently had a cardiac cath surgery done but was unsuccessful with unblocking the artery, recently had suprapubic catheter placed Saturday. A/ox4, increased wob upon arrival, lung sounds cta bilaterally, RR 20-25, maintaining O2 sat 93-97% on RA, S1 and S2 heard, abdomen soft and non-tender, pt states no pain. EKG, chest x-ray obtained, call ramirez within reach, all needs met at this time.
[2023-11-16 13:26] LABS: MANUAL DIFF FLAG NO
[2023-11-16 13:27] LABS: Basophils Absolute Auto 0.1 X10*3/uL (0.0-0.2); Basophils Percent Auto 0.7 % (0-2); Eosinophils Absolute Auto 0.2 X10*3/uL (0.0-0.4); Eosinophils Percent Auto 1.6 % (0-4); Hemoglobin 9.6 g/dl (14.0-18.0); Imm Gran Abs Auto 0.03 X10*3/uL (0.00-0.03); Imm Gran Pct Auto 0.3 % (0.0-0.4); Lymphocytes Absolute Auto 1.1 X10*3/uL (1.2-4.9); Lymphocytes Percent Auto 11.9 % (20-40); Mean Corpuscular HGB Conc 33.1 g/dl (31.0-36.0); Mean Corpuscular Volume 87.6 fL (80.0-98.0); Mean Platelet Volume 9.9 fL (9.4-12.4); Monocytes Absolute Auto 0.9 X10*3/uL (0.1-1.2); Monocytes Percent Auto 9.4 % (2-11); Neutrophils Absolute Auto 7.2 x10*3/uL (2.0-8.3); Neutrophils Percent Auto 76.1 % (45-73); Platelet Count 302 X10*3/uL (160-400); Red Blood Count 3.31 X10*6/uL (4.60-5.80); Red Cell Distribution Width 18.9 % (11.0-16.0); White Blood Count 9.5 X10*3/uL (4.8-10.8)
[2023-11-16 13:37] LABS: INTERNATIONAL NORM RATIO 1.2 (0.9-1.1); Prothrombin Time 14.8 SEC (11.1-13.3)
[2023-11-16 13:52] LABS: Anion Gap 16 (12-20); Blood Urea Nitrogen 22 mg/dL (9-16); Calcium 9.7 mg/dL (8.4-10.2); Carbon Dioxide 17 mmol/L (22-29); Chloride 107 mmol/L (96-108); Creatinine Clr Calc Pharmacy 60.1; Estimated Glomerular Filt Rate > 60; Glucose Random 163 mg/dL (60-115); Potassium 4.3 mmol/L (3.3-5.1); Sodium 136 mmol/L (135-145)
[2023-11-16 13:53] LABS: Alanine Aminotransferase 392 U/L (0-40); Albumin Level 3.9 g/dL (3.5-5.0); Alkaline Phosphatase 98 U/L (39-117); Aspartate Amino Transferase 285 U/L (5-37); Bilirubin Direct 0.4 mg/dL (0.0-0.5); Bilirubin Total 0.7 mg/dL (0.0-1.0); Total Protein 7.2 g/dL (6.5-8.0)
[2023-11-16 13:59] LABS: B Type Natriuretic Peptide 1392 pg/mL (<100)
[2023-11-16 14:00] LABS: Troponin-I High Sensitivity 20.9 ng/L (<3.5-35.0)
[2023-11-16 14:14] VITALS: BP 102/69
[2023-11-16] MEDS: Furosemide 40 MG/4 ML VIAL IVPUSH (14:14)
--- NOTE | 2023-11-16 14:24 | PC.NURSE ---
20g IV placed in right ac, pt medicated with Lasix per MAR.
[2023-11-16 14:44] VITALS: BP 101/73; PULSE 103; RESP 17; TEMP 36.8; O2SAT 97
--- NOTE | 2023-11-16 16:07 | P.HPHOSP_ITS ---
History of Present Illness Date of Service: 11/16/23 Attending physician on admission: Randall Finch Chief Complaint: SOB Pt is a 88-year-old male with a PMH significant for HFrEF 20-25%, ischemic cardiomyopathy with total LAD occlusion, obd-wrqyxel-vcuofjrqw type 2 diabetes, HTN, HLD, alcohol dependence,?and urinary retention with suprapubic catheter placed 5 days ago on 11/11/2023 who presents to the ED with?shortness of breath and dyspnea upon exertion. Patient states when he awoke this morning at 06:00 felt short of breath significantly above baseline. Patient also has been experiencing increased STEVENSON with daily activity. Normally ambulates on own without assistive devices. Denies lower leg edema, though notes he has never experienced swelling in his extremities before. Reports has been compliant with home medications, including Lasix. However, patient noted to have question of mild memory impairment during interview and exam. Patient comes from home and reports living with his son and grandson. Denies chest pain/pressure, palpitations. No fever, chills, nausea, vomiting, abdominal pain. In the ED pt was tachycardic up to 105, vitals otherwise stable and WNL. Labs were significant for BNP 1392, AST 285, and ALT 392. No leukocytosis. Chronic normocytic anemia stable at 9 0.6/29.0. No significant electrolyte abnormalities. Renal function baseline. Initial troponin 20.9 with repeat flat at 19.8. CXR showed similar small right pleural effusion and right basilar consolidation. EKG demonstrated sinus tachycardia of 106 nonspecific T-wave abnormality but no evidence of significant ST elevations or depressions. Pt was treated with IV Lasix. Pt will be admitted to the hospital for treatment and further evaluation of acute on chronic HFrEF exacerbation. Review of Systems 2 Review of Systems: Increased SOB and STEVENSON Denies LLE No chest pain/pressure or palpitations Denies fever, chills, N/V/D or abdominal pain No cough PMFSH Medical History Acute exacerbation of CHF (congestive heart failure) HFrEF (heart failure with reduced ejection fraction) Hyperlipidemia Alcohol abuse Diabetes mellitus Hypertension Family History Father Liver problem Mother Past heart attack Brother Cancer Sister Cancer Surgical History History of cardiac cath History of hernia repair Social History Housing: House Unable to assess alcohol history related to: Unknown Alcohol intake: never Patient Tobacco Use Status: Never used Tobacco e-Cigarette/Vaping Use: Never Used Second Hand Smoke Exposure: No Advance Directives: No Advance Directives Information Provided: No Do you have a plan to hurt others: No Plan service: Yes Current occupational status: retired Cognitive needs: No Hearing needs: No Vision needs: Yes (reading glasses) Meds Allergies Allergy/AdvReac Type Severity Reaction Status Date / Time No Known Allergies Allergy Verified 11/16/23 12:36 [No Known Allergies*] Home Medications ?Medication ?Instructions ?Recorded ?Confirmed ?Last Taken ?Type valsartan 40 mg tablet 20 mg PO BID 11/07/23 11/07/23 Unknown History furosemide 20 mg tablet 20 mg PO DAILY 11/16/23 Unknown History Physical Exam 2 Vital Signs and Narrative: Vital Signs: Last Vital Signs Temp 98.3 F 11/16/23 14:44 Pulse 103 H 11/16/23 14:44 Resp 17 11/16/23 14:44 BP 101/73 11/16/23 14:44 Pulse Ox 97 11/16/23 14:44 O2 Del Method Room Air 11/16/23 14:44 BMI result Body Mass Index 23.0 General: AOx3, no acute distress Resp: Crackles at right base CVS: S1, S2, RRR GI: +BS, NT, no distention Skin: Warm, dry Neuro: Cranial nerves II-XII grossly intact bilaterally. Motor grossly intact bilaterally Extremities: No edema Psych: Appropriate affect, though with likely mild memory impairment Results Labs 11/16/23 13:21 11/16/23 13:22 Labs: Laboratory Results - last 24 hr 11/16/23 11/16/23 13:21 13:22 MCV 87.6 MCH 29.0 MCHC 33.1 RDW 18.9 H Plt Count 302 MPV 9.9 Immature Gran % (Auto) 0.3 Neut % (Auto) 76.1 H Lymph % (Auto) 11.9 L [place] % (Auto) 9.4 Eos % (Auto) 1.6 Baso % (Auto) 0.7 Lymph # (Auto) 1.1 L [place] # (Auto) 0.9 Eos # (Auto) 0.2 Baso # (Auto) 0.1 Abs Immat Gran (auto) 0.03 Absolute Neuts (auto) 7.2 Absolute Nucleated RBC 0.000 Nucleated RBC % (auto) 0.0 PT 14.8 H INR 1.2 H Anion Gap 16 Estim Creat Clear Calc 60.1 Estimated GFR > 60 Random Glucose 163 H Calcium 9.7 Total Bilirubin 0.7 Direct Bilirubin 0.4 AST 285 H ALT 392 H Alkaline Phosphatase 98 Troponin I High Sens 20.9 D B-Natriuretic Peptide 1392 H Total Protein 7.2 Albumin 3.9 Imaging Radiologist's Impressions: Impressions Chest X-Ray 11/16/23 12:59 IMPRESSION: Similar small right pleural effusion and right basilar consolidation. Assessment and Plan (1) CHF exacerbation: Status: Acute Plan Pt is a 88-year-old male with a PMH significant for HFrEF 20-25%, ischemic cardiomyopathy with total LAD occlusion, zpd-[id number]-gmlmahgyk type 2 diabetes, HTN, HLD, alcohol dependence,?and urinary retention with suprapubic catheter placed 5 days ago on 11/11/2023 who presents to the ED with?shortness of breath and dyspnea upon exertion. Pt will be admitted to the hospital for treatment and further evaluation of acute on chronic HFrEF exacerbation. Acute decompensated HFrEF exacerbation Patient with increased SOB, STEVENSON, CXR with increased right pleural effusion, elevated BNP Reports compliance with home Lasix, though patient with possible mild memory impairment Echo on 07/03/2023 showed LVEF 20-25% with regional wall motion abnormality in LAD territory Will treat with Lasix 40 mg IV b.i.d. Follow lytes, I/O Daily weights, low-salt diet Continuous cardiac monitoring Transaminitis AST 285 with ALT 392 Likely secondary to CHF exacerbation Treat as above Lyf-jezfvin-ykxuxsjgd type 2 diabetes Sliding-scale insulin diabetic diet Hold metformin HTN Continue metoprolol, valsartan HLD Continue statin Suprapubic catheter Catheter care Full Code Attending:?Dr. Finch DVT Prophylaxis: Lovenox Pt will require a hospitalization of at least two nights for treatment of?acute decompensated HFrEF exacerbation with IV diuretics and close monitoring of electrolytes. Quality Stroke Does the patient have a stroke diagnosis?: No VTE Prior VTE?: No VTE Risk Level:: Medical - moderate - high VTE Device Contraindication: Treatment Not Indicated VTE Drug Contraindication: N/A - Med Ordered
[2023-11-16 16:12] LABS: Troponin-I High Sensitivity 19.8 ng/L (<3.5-35.0)
[2023-11-16 17:17] VITALS: BP 98/78; PULSE 105; RESP 16; TEMP 36.8; O2SAT 97
--- NOTE | 2023-11-16 17:31 | PHA.MEDREC ---
Pharmacy Consult ? Medication Reconciliation Pharmacy has completed the medication reconciliation. Called patient's son Carlyle to confirm meds. Only med not confirmed via Carlyle was valsartan. However, patient has been filling the medication (10/07/23). Leaving on med rec.
--- NOTE | 2023-11-16 18:39 | PC.NURSE ---
This RN reached out to provider to question if wanted 1800 Lasix dose given, last dose given at 14:14. Provider read message, no new orders at this time.
--- NOTE | 2023-11-16 19:15 | PC.NURSE ---
Assumed care of pt. Pt lying on stretcher, no acute distress at this time. Lung sounds clear in all ziegler, suprapubic catheter with (+) output. Pt with n ocomplaints at this time. Pending admissino bed.
[2023-11-16] MEDS: Enoxaparin Sodium 40 MG/0.4 ML SYRINGE SUBCUT (19:34)
[2023-11-16 21:09] VITALS: BP 105/70; PULSE 103; RESP 28; O2SAT 97
[2023-11-16] MEDS: Atorvastatin Calcium 40 MG TABLET PO (21:11)
--- NOTE | 2023-11-16 21:14 | PC.NURSE ---
Called pharmay RE: glyburide not stocked in [facility], they will send dose down.
[2023-11-16] MEDS: glyBURIDE 2.5 MG TABLET PO (21:44)
[2023-11-17] VITALS (10 sets, daily range): BP systolic 89–132; BP diastolic 53–78; PULSE 80–100; RESP 16–20; TEMP 36.1–36.4; O2SAT 94–99; BMI 22.0
[2023-11-17] MEDS: 0.9 % Sodium Chloride Flush 3 ML SYRINGE IVFLUSH ×2 (01:04→21:33)
[2023-11-17] MEDS: Metoprolol Succinate ER 25 MG TAB.ER.24H PO ×2 (03:54→09:14)
[2023-11-17] MEDS: Magnesium Sulfate/H2O 2 GM/50 ML PIGGYBACK IV (03:56)
[2023-11-17 07:51] LABS: Anion Gap 17 (12-20); Blood Urea Nitrogen 21 mg/dL (9-16); Calcium 9.3 mg/dL (8.4-10.2); Carbon Dioxide 19 mmol/L (22-29); Chloride 105 mmol/L (96-108); Creatinine Clr Calc Pharmacy 58.3; Estimated Glomerular Filt Rate > 60; Glucose Random 74 mg/dL (60-115); Magnesium 2.3 mg/dL (1.6-2.6); Potassium 3.5 mmol/L (3.3-5.1); Sodium 137 mmol/L (135-145)
[2023-11-17] MEDS: Tamsulosin HCL 0.4 MG CAPSULE PO (09:14)
[2023-11-17] MEDS: Finasteride 5 MG TABLET PO (09:14)
[2023-11-17] MEDS: Furosemide 40 MG/4 ML VIAL IVPUSH (09:14)
[2023-11-17] MEDS: Aspirin 81 MG TAB.CHEW PO (09:14)
[2023-11-17] MEDS: glyBURIDE 2.5 MG TABLET PO ×2 (09:15→21:33)
[2023-11-17 11:41] LABS: Glucose, Whole Blood 160 mg/dL (60-115)
--- NOTE | 2023-11-17 12:01 | P.PNIM_ITS ---
Subjective Subjective Date of Service: 11/17/23 Interval History: No acute issues overnight. Multiple runs of SVT... Asymptomatic Review of Systems Denies chest pain Denies shortness of breath Denies nausea vomiting diarrhea Denies fever chills Physical Exam 2 Vital Signs: Vital Signs: Last Vital Signs Temp 97.6 F 11/17/23 11:14 Pulse 88 11/17/23 11:14 Resp 18 11/17/23 11:14 BP 132/56 L 11/17/23 11:14 Pulse Ox 96 11/17/23 11:14 O2 Del Method Room Air 11/17/23 11:14 BMI result Body Mass Index 22.0 Const: Other: Awake alert no acute distress Resp: Other: Bibasilar crackles Cardio: Other: No S4; positive S1-S2; no S3 murmurs rubs or gallops GI: Other: Soft nontender nondistended normoactive bowel sounds : Other: Suprapubic cath site clean dry and intact Extrem: Other: No edema bilaterally Objective Data Active Medications Acetaminophen (Acetaminophen 325 Mg Tablet) 650 mg PO Q6H PRN PRN Reason: Pain, Mild (Pain Scale 1-3), fever or headache Aspirin (Aspirin 81 Mg Tab.Chew) 81 mg PO DAILY [facility] Last Admin: 11/17/23 09:14 Dose: 81 mg Documented By: RENZO Atorvastatin Calcium (Atorvastatin Calcium 40 Mg Tablet) 40 mg PO BEDTIME [facility] Last Admin: 11/16/23 21:11 Dose: 40 mg Documented By: PAULTOPALMER Benzonatate (Benzonatate 100 Mg Capsule) 100 mg PO TID PRN PRN Reason: Cough Calcium Carbonate (Calcium Carbonate 750 Mg Tab.Chew) 750 mg PO Q4H PRN PRN Reason: Heartburn Enoxaparin Sodium (Enoxaparin Sodium 40 Mg/0.4 Ml Syringe) 40 mg SUBCUT Q24H [facility] Last Admin: 11/16/23 19:34 Dose: 40 mg Documented By: VENANCIO Finasteride (Finasteride 5 Mg Tablet) 5 mg PO DAILY [facility] Last Admin: 11/17/23 09:14 Dose: 5 mg Documented By: RENZO Furosemide (Furosemide 40 Mg/4 Ml Vial) 40 mg IVPUSH BID@0900,1800 [facility]; Protocol Last Admin: 11/17/23 09:14 Dose: 40 mg Documented By: RENZO Glyburide (Glyburide 2.5 Mg Tablet) 2.5 mg PO BID [facility] Last Admin: 11/17/23 09:15 Dose: 2.5 mg Documented By: RENZO Magnesium Hydroxide (Milk Of Magnesia 30 Ml Oral.Susp) 30 ml PO DAILY PRN PRN Reason: Constipation Melatonin (Melatonin 3 Mg Tablet) 6 mg PO BEDTIME PRN PRN Reason: Insomnia Metoprolol Succinate (Metoprolol Succinate Er 25 Mg Tab.Er.24h) 25 mg PO DAILY [facility]; Protocol Last Admin: 11/17/23 09:14 Dose: 25 mg Documented By: RENZO Ondansetron HCl (Ondansetron Hcl 4 Mg/2 Ml Vial) 4 mg IVPUSH Q8H PRN PRN Reason: Nausea and Vomiting Sodium Chloride (0.9 % Sodium Chloride Flush 3 Ml Syringe) 3 ml IVFLUSH QSHIFT [facility] Last Admin: 11/17/23 07:43 Dose: Not Given Documented By: THANH Non-Admin Reason: Previously Administered Tamsulosin HCl (Tamsulosin Hcl 0.4 Mg Capsule) 0.4 mg PO DAILY [facility] Last Admin: 11/17/23 09:14 Dose: 0.4 mg Documented By: RENZO Labs 11/16/23 13:21 11/17/23 06:33 Labs: Laboratory Results - last 24 hr 11/16/23 11/16/23 11/16/23 13:21 13:22 15:43 MCV 87.6 MCH 29.0 MCHC 33.1 RDW 18.9 H Plt Count 302 MPV 9.9 Immature Gran % (Auto) 0.3 Neut % (Auto) 76.1 H Lymph % (Auto) 11.9 L Hopkins % (Auto) 9.4 Eos % (Auto) 1.6 Baso % (Auto) 0.7 Lymph # (Auto) 1.1 L Hopkins # (Auto) 0.9 Eos # (Auto) 0.2 Baso # (Auto) 0.1 Abs Immat Gran (auto) 0.03 Absolute Neuts (auto) 7.2 Absolute Nucleated RBC 0.000 Nucleated RBC % (auto) 0.0 Hold Purple Top PT 14.8 H INR 1.2 H Anion Gap 16 Estim Creat Clear Calc 60.1 Estimated GFR > 60 POC Glucose Random Glucose 163 H Calcium 9.7 Magnesium Total Bilirubin 0.7 Direct Bilirubin 0.4 AST 285 H ALT 392 H Alkaline Phosphatase 98 Troponin I High Sens 20.9 D 19.8 B-Natriuretic Peptide 1392 H Total Protein 7.2 Albumin 3.9 11/17/23 11/17/23 06:33 11:37 MCV MCH MCHC RDW Plt Count MPV Immature Gran % (Auto) Neut % (Auto) Lymph % (Auto) Hopkins % (Auto) Eos % (Auto) Baso % (Auto) Lymph # (Auto) Hopkins # (Auto) Eos # (Auto) Baso # (Auto) Abs Immat Gran (auto) Absolute Neuts (auto) Absolute Nucleated RBC Nucleated RBC % (auto) Hold Purple Top SEE NOTE PT INR Anion Gap 17 Estim Creat Clear Calc 58.3 Estimated GFR > 60 POC Glucose 160 H Random Glucose 74 Calcium 9.3 Magnesium 2.3 Total Bilirubin Direct Bilirubin AST ALT Alkaline Phosphatase Troponin I High Sens B-Natriuretic Peptide Total Protein Albumin Assessment and Plan (1) Acute on chronic clinical systolic heart failure: Status: Acute (2) Diabetes mellitus: Status: Acute (3) Hypertension: Status: Acute Plan Pt is a 88-year-old male with a PMH significant for HFrEF 20-25%, ischemic cardiomyopathy with total LAD occlusion, [id number] type 2 diabetes, HTN, HLD, alcohol dependence,?and urinary retention with suprapubic catheter placed 5 days ago on 11/11/2023 who presents to the ED with?shortness of breath and dyspnea upon exertion. Pt will be admitted to the hospital for treatment and further evaluation of acute on chronic HFrEF exacerbation. 1.Acute on chronic systolic CHF -Echo on 07/03/2023 showed LVEF 20-25% with regional wall motion abnormality in LAD territory -Lasix 40 mg IV b.i.d....2L negative since admitt -follow renals/divalents 2.Asymptomatic SVT -continue beta-desiree... Awake cardiology consult -cardiology consult 3.Transaminitis -trend daily -likely secondary to low-flow states -aggressive treatment of 1/2 4.Vsw-dioincf-qtylsalkb type 2 diabetes -acceptable control on current therapies -lispro correctional scale -adjust as indicated Full Code Lovenox Patient will require ongoing hospitalization for IV diuresis and specialist as consultation Quality Stroke Does the patient have a stroke diagnosis?: No VTE Prior VTE?: No VTE Risk Level:: Medical - moderate - high VTE Device Contraindication: Treatment Not Indicated VTE Drug Contraindication: N/A - Med Ordered
--- NOTE | 2023-11-17 13:27 | MHC.CM.PN ---
PT REPORTS HE LIVES WITH HIS SON AND GRANDSON AND IS INDEPENDENT WITH CARE PT DENIES USE OF DME AND SAYS HE IS ACTIVE WITH [facility] HE SAYS HE HAS A HCP AT HOME, COPY REQUESTED PCP: ROOAP GILMORE IMM DELIVERED DCP: HOME RESUME [facility] FAMILY TO TRANSPORT
[2023-11-17 13:31] LABS: Alanine Aminotransferase 804 U/L (0-40); Aspartate Amino Transferase 631 U/L (5-37)
--- NOTE | 2023-11-17 13:35 | P.CONCA_ITS ---
History of Present Illness History of Present Illness Date of Service: 11/17/23 Chief complaint: CHF exacerbation Narrative: This is a cardiology consultation regarding arrhythmias. Patient has had runs of narrow complex tachycardia on telemetry and hence we are consulted to see him. Patient has history of ischemic cardiomyopathy. His EF is in the 20s. He has chronic shortness of breath. Currently, admitted for increasing shortness of breath and treated for congestive heart failure. It seems that recently, he has been having urinary retention issues and apparently had a suprapubic catheter placed few days back. Otherwise, he is being treated for congestive heart failure. In this context, there were runs of narrow complex tachycardia although patient does not have any sensations from that. He states he is generally feeling okay. Review of Systems 2 Review of Systems: Yes all other systems are reviewed and are negative Constitutional: Constitutional: Reports as per HPI and Reports no additional constitutional complaints Eyes: Eyes: Reports as per HPI and Denies no additional eye complaints ENT: Denies system reviewed and no additional complaints, except as documented and Reports as per HPI Cardiovascular: Cardiovascular: Reports as per HPI, Reports no additional cardiovascular complaints, Denies acrocyanosis, Denies cool extremities, Denies chest pain, Denies leg edema, Denies lightheadedness, Denies palpitations and Denies dyspnea Respiratory: Respiratory: Reports as per HPI, Denies no additional respiratory complaints and Denies dyspnea Gastrointestinal: Gastrointestinal: Reports as per HPI and Denies no additional gastrointestinal complaints Genitourinary: Genitourinary: Reports no additional male genitourinary complaints and Reports as per HPI Musculoskeletal: Musculoskeletal: Reports no additional musculoskeletal complaints and Reports as per HPI Integumentary/Breasts: Skin/Breast: Reports system reviewed and no additional complaints, except as docu Neurologic: Reports system reviewed and no additional complaints, except as documented and Reports as per HPI Psychiatric: Psychiatric: Reports no additional psychiatric complaints and Reports as per HPI Endocrine: Endocrine: Reports no additional endocrine complaints, Reports as per HPI and Denies palpitations Hematologic/Lymphatic: Hematologic/Lymphatic: Reports no additional hematologic/lymphatic complaints and Reports as per HPI Allergic/Immunologic: Allergic/Immunologic: Reports no additional allergic/immunologic complaints and Reports as per HPI PMF Past Medical History Medical History Acute exacerbation of CHF (congestive heart failure) HFrEF (heart failure with reduced ejection fraction) Hyperlipidemia Alcohol abuse Diabetes mellitus Hypertension Family History Family History Father Liver problem Mother Past heart attack Brother Cancer Sister Cancer Surgical History Surgical History History of cardiac cath History of hernia repair Social History Social History Household Members: Family Housing: House Do you presently have visiting nurse or other home services: Yes ([facility] & Grandson helps with care.) Unable to assess alcohol history related to: Unknown Alcohol intake: never Patient Tobacco Use Status: Never used Tobacco e-Cigarette/Vaping Use: Never Used Second Hand Smoke Exposure: No Use of substances other than those prescribed or required for medical reasons: No Currently Displaying Signs/Symptoms of Drug Intoxication Withdrawal: No Have you been hit, kicked, punched, or otherwise hurt by someone within the past year? If so, by whom?: No Do you feel safe in your current relationship?: No Current Relationship Is there a partner from a previous relationship who is making you feel unsafe now?: No Are you made to feel afraid or neglected: No Advance Directives: No (Rodney Murray [phone] reported HCP) Advance Directives Information Provided: No Advance Directives on File: No Do you have a plan to hurt others: No Plan Recently lost weight without trying: Yes How much weight loss: 24-33 pounds Eating poorly because of decreased appetite: Yes Nutrition screen score: 6 Nutrition Risks: Poor intake 0-25% >4 days Poor oral hygiene: No service: Yes Current occupational status: retired Cognitive needs: No Hearing needs: No Vision needs: Yes (reading glasses) Meds Allergies Allergy/AdvReac Type Severity Reaction Status Date / Time No Known Allergies Allergy Verified 11/16/23 12:36 [No Known Allergies*] Active Medications: Current Medications Acetaminophen (Acetaminophen 325 Mg Tablet) 650 mg PO Q6H PRN PRN Reason: Pain, Mild (Pain Scale 1-3), fever or headache Aspirin (Aspirin 81 Mg Tab.Chew) 81 mg PO DAILY [facility] Last Admin: 11/17/23 09:14 Dose: 81 mg Atorvastatin Calcium (Atorvastatin Calcium 40 Mg Tablet) 40 mg PO BEDTIME [facility] Last Admin: 11/16/23 21:11 Dose: 40 mg Benzonatate (Benzonatate 100 Mg Capsule) 100 mg PO TID PRN PRN Reason: Cough Calcium Carbonate (Calcium Carbonate 750 Mg Tab.Chew) 750 mg PO Q4H PRN PRN Reason: Heartburn Enoxaparin Sodium (Enoxaparin Sodium 40 Mg/0.4 Ml Syringe) 40 mg SUBCUT Q24H [facility] Last Admin: 11/16/23 19:34 Dose: 40 mg Finasteride (Finasteride 5 Mg Tablet) 5 mg PO DAILY [facility] Last Admin: 11/17/23 09:14 Dose: 5 mg Furosemide (Furosemide 40 Mg/4 Ml Vial) 40 mg IVPUSH BID@0900,1800 [facility]; Protocol Last Admin: 11/17/23 09:14 Dose: 40 mg Glyburide (Glyburide 2.5 Mg Tablet) 2.5 mg PO BID [facility] Last Admin: 11/17/23 09:15 Dose: 2.5 mg Magnesium Hydroxide (Milk Of Magnesia 30 Ml Oral.Susp) 30 ml PO DAILY PRN PRN Reason: Constipation Melatonin (Melatonin 3 Mg Tablet) 6 mg PO BEDTIME PRN PRN Reason: Insomnia Ondansetron HCl (Ondansetron Hcl 4 Mg/2 Ml Vial) 4 mg IVPUSH Q8H PRN PRN Reason: Nausea and Vomiting Sacubitril/Valsartan (Sacubitril/Valsartan 1 Tab Tablet) 1 tab PO BID [facility]; Protocol Sodium Chloride (0.9 % Sodium Chloride Flush 3 Ml Syringe) 3 ml IVFLUSH QSHIFT [facility] Last Admin: 11/17/23 07:43 Dose: Not Given Spironolactone (Spironolactone 25 Mg Tablet) 25 mg PO DAILY [facility]; Protocol Tamsulosin HCl (Tamsulosin Hcl 0.4 Mg Capsule) 0.4 mg PO DAILY [facility] Last Admin: 11/17/23 09:14 Dose: 0.4 mg Home Medications ?Medication ?Instructions ?Recorded ?Confirmed ?Last Taken ?Type valsartan 40 mg tablet 20 mg PO BID 11/07/23 11/16/23 11/16/23 09:00 History acetaminophen 500 mg tablet 1,000 mg PO Q6H PRN Pain 11/16/23 11/16/23 Unknown History furosemide 20 mg tablet 20 mg PO DAILY PRN >90 SBP 11/16/23 11/16/23 Unknown History Physical Exam 2 Vital Signs: Vital Signs: Last Vital Signs Temp 97.6 F 11/17/23 11:14 Pulse 88 11/17/23 11:14 Resp 18 11/17/23 11:14 BP 132/56 L 11/17/23 11:14 Pulse Ox 96 11/17/23 11:14 O2 Del Method Room Air 11/17/23 11:14 BMI result Body Mass Index 22.0 Const: Other: Slightly cool extremities General: comfortable and no acute distress Orientation/consciousness: p atient oriented x3 HEENT: Other: Unremarkable Head: Yes normal to inspection Neck: Neck: Yes normal visual inspection Chest: Chest palpation & inspection: normal inspection of the chest Resp: Other: Few inspiratory crackles Cardio: Palpation: normal PMI Heart sounds: S1 normal heart sound present, S2 normal heart sound present, no gallops, no murmurs and no rubs GI: Palpation (GI): Soft to palpation Back/Spine/Pelvis: Other: unremarkable Skin: General skin exam: no rashes or lesions noted Neuro: General: patient oriented x3 Extrem: General: Yes normal to inspection Psych: Mental Status: mental status grossly normal Objective Labs and Meds 11/16/23 13:21 11/17/23 06:33 Lab results: Laboratory Results - last 24 hr 11/16/23 11/16/23 11/17/23 13:22 15:43 06:33 Hold Purple Top SEE NOTE PT 14.8 H INR 1.2 H Sodium 136 137 Potassium 4.3 3.5 Chloride 107 105 Carbon Dioxide 17 L 19 L Anion Gap 16 17 BUN 22 H 21 H Creatinine 0.94 0.93 Estim Creat Clear Calc 60.1 58.3 Estimated GFR > 60 > 60 POC Glucose Random Glucose 163 H 74 Calcium 9.7 9.3 Magnesium 2.3 Total Bilirubin 0.7 Direct Bilirubin 0.4 AST 285 H 631 H ALT 392 H 804 H Alkaline Phosphatase 98 Troponin I High Sens 20.9 D 19.8 B-Natriuretic Peptide 1392 H Total Protein 7.2 Albumin 3.9 11/17/23 11:37 Hold Purple Top PT INR Sodium Potassium Chloride Carbon Dioxide Anion Gap BUN Creatinine Estim Creat Clear Calc Estimated GFR POC Glucose 160 H Random Glucose Calcium Magnesium Total Bilirubin Direct Bilirubin AST ALT Alkaline Phosphatase Troponin I High Sens B-Natriuretic Peptide Total Protein Albumin ECG Interpretation: EKG with sinus tachycardia at 01:06/Min; leftward axis; minimal criteria for LVH; nonspecific ST-T changes. Imaging Radiologist's impression: Impressions Chest X-Ray 11/16/23 12:59 IMPRESSION: Similar small right pleural effusion and right basilar consolidation. Assessment and Plan (1) Acute on chronic systolic and diastolic heart failure, NYHA class 3: Status: Acute (2) Ischemic cardiomyopathy: Status: Acute (3) Atrial tachycardia: Status: Acute Plan In the recent echocardiogram, LVEF is 20-25%. Wall motion abnormality in the LAD territory. Moderate mitral regurgitation. In the dobutamine stress echocardiogram, anterior wall not thought to be viable. Inferoseptal portion was thought to be viable. In the cardiac catheterization, lad with ostial occlusion, [id number] and [id number] collaterals. Otherwise, no significant disease. Overall, significant LV systolic as well as diastolic dysfunction and coronary disease with decompensated heart failure. On telemetry, underlying sinus rhythm but short runs of what appears to be atrial tachycardia. Nothing prolonged. That could be related to the cardiomyopathy itself. With regard to medications, continue beta-blockers. Would not increase it in this setting. If indeed there are recurrent runs of tachycardia, then consider amiodarone. Otherwise, we will optimize medications. Stop valsartan. Start Entresto. Start spironolactone. Next choice would be Jardiance. IV diuretics. Discussed with Dr. Finch. Procedures Date of Service Date of Service: 11/17/23
[2023-11-17] MEDS: Sacubitril/Valsartan 24/26 1 TAB TABLET PO ×2 (14:02→21:33)
[2023-11-17] MEDS: Spironolactone 25 MG TABLET PO (14:03)
[2023-11-17] MEDS: Enoxaparin Sodium 40 MG/0.4 ML SYRINGE SUBCUT (16:46)
[2023-11-17] MEDS: Atorvastatin Calcium 40 MG TABLET PO (21:33)
[2023-11-18] VITALS (8 sets, daily range): BP systolic 72–125; BP diastolic 42–64; PULSE 82–185; RESP 16–19; TEMP 36.1–36.8; O2SAT 93–97; BMI 21.9
[2023-11-18 06:53] LABS: Alanine Aminotransferase 470 U/L (0-40); Albumin Level 3.2 g/dL (3.5-5.0); Alkaline Phosphatase 84 U/L (39-117); Anion Gap 15 (12-20); Aspartate Amino Transferase 178 U/L (5-37); Bilirubin Total 0.8 mg/dL (0.0-1.0); Blood Urea Nitrogen 21 mg/dL (9-16); Calcium 8.5 mg/dL (8.4-10.2); Carbon Dioxide 20 mmol/L (22-29); Chloride 104 mmol/L (96-108); Creatinine Clr Calc Pharmacy 57.9; Estimated Glomerular Filt Rate > 60; Glucose Fasting 141 mg/dL (60-99); Potassium 4.2 mmol/L (3.3-5.1); Sodium 135 mmol/L (135-145); Total Protein 6.7 g/dL (6.5-8.0)
[2023-11-18] MEDS: Sacubitril/Valsartan 24/26 1 TAB TABLET PO (08:18)
[2023-11-18] MEDS: Tamsulosin HCL 0.4 MG CAPSULE PO (08:18)
[2023-11-18] MEDS: 0.9 % Sodium Chloride Flush 3 ML SYRINGE IVFLUSH ×3 (08:18→20:14)
[2023-11-18] MEDS: Furosemide 40 MG/4 ML VIAL IVPUSH (08:18)
[2023-11-18] MEDS: glyBURIDE 2.5 MG TABLET PO ×2 (08:18→20:13)
[2023-11-18] MEDS: Aspirin 81 MG TAB.CHEW PO (08:18)
[2023-11-18] MEDS: Finasteride 5 MG TABLET PO (08:18)
[2023-11-18] MEDS: Spironolactone 25 MG TABLET PO (08:18)
--- NOTE | 2023-11-18 10:24 | P.PNCA_ITS ---
Subjective Subjective Date of Service: 11/18/23 Interval history: Seen and examined at bedside. Complaining of dizziness even sitting up in the bed. Off and on lightheadedness. No syncope. Blood pressure was low in the morning. Entresto and Lasix are on hold. Physical Exam Vital Signs: Last Vital Signs Temp 97.8 F 11/18/23 07:50 Pulse 90 11/18/23 07:50 Resp 19 11/18/23 07:50 BP 125/64 11/18/23 07:50 Pulse Ox 95 11/18/23 07:50 O2 Del Method Room Air 11/18/23 07:50 BMI result Body Mass Index 21.9 GENERAL APPEARANCE: in no acute distress, pleasant. NECK: no carotid bruit, no jugular venous distention. SKIN: no suspicious lesions, warm and dry. HEART: no murmurs, regular rate and rhythm. LUNGS: clear to auscultation bilaterally. ABDOMEN: soft, nontender. EXTREMITIES: no edema. PERIPHERAL PULSES: equal. NEUROLOGIC: No gross deficits, AAO X 3 Objective Labs and Meds 11/16/23 13:21 11/18/23 06:08 Lab results: Laboratory Results - last 24 hr 11/17/23 11/17/23 11/18/23 06:33 11:37 06:08 Sodium 135 Potassium 4.2 Chloride 104 Carbon Dioxide 20 L Anion Gap 15 BUN 21 H Creatinine 0.93 Estim Creat Clear Calc 57.9 Estimated GFR > 60 POC Glucose 160 H Fasting Glucose 141 H Calcium 8.5 D Total Bilirubin 0.8 AST 631 H 178 H ALT 804 H 470 H Alkaline Phosphatase 84 Total Protein 6.7 Albumin 3.2 L Progress Note: A&P Assessment and plan (1) Atrial tachycardia: Status: Acute (2) Acute on chronic systolic and diastolic heart failure, NYHA class 3: Status: Acute Plan [age] year gentleman with severe cardiomyopathy and 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 Previously had no symptoms but now presenting with dyspnea and congestive heart failure. He was started on guideline directed medical therapy and apparently had some dizziness. He is saying he is getting dizzy when sitting in bed. Blood pressures this morning were documented in 80s as per discussion with medicine team. Hold Entresto. Monitor I's and O's. Can stop diuretics currently because he appears euvolemic. He has severe LAD stenosis which is the likely cause for cardiomyopathy. Previously was asymptomatic and medical treatment was pursued. We will discuss further management as outpatient in the office. Thank you for allowing me to participate in the care of your patient. Please feel free to contact me if you have any questions. Time Spent With Patient Time: Total time managing care of this patient today ____ minutes. Progress Note: Quality Stroke Does the patient have a stroke diagnosis?: No Procedures Date of Service Date of Service: 11/18/23
--- NOTE | 2023-11-18 10:33 | P.PNIM_ITS ---
Subjective Subjective Date of Service: 11/18/23 Interval History: Being followed for acute CHF exacerbation, Feeling lightheaded and weak this morning, denies chest pain, no palpitations, no shortness of breath, tolerated breakfast no nausea, no vomiting, no abdominal pain diarrhea no other acute issues overnight. Had 1 episode of SVT last evening and again 1 episode lasting few seconds patient remained asymptomatic. Review of Systems All other system are reviewed and are negative. Physical Exam 2 Vital Signs: Vital Signs: Last Vital Signs Temp 97.8 F 11/18/23 07:50 Pulse 90 11/18/23 07:50 Resp 19 11/18/23 07:50 BP 125/64 11/18/23 07:50 Pulse Ox 95 11/18/23 07:50 O2 Del Method Room Air 11/18/23 07:50 BMI result Body Mass Index 21.9 Const: Other: General awake alert x3, in no acute distress. Neck no JVD. CVS regular rate rhythm, Respiratory lungs clear to auscultation, no respiratory distress, no wheeze, no rhonchi. Gastrointestinal abdomen soft, non tender, bowel sounds audible,no guarding , no rigidity. Extremities no edema. Neuro non focal Skin no rash Psych appropriate affect Objective Data Active Medications Acetaminophen (Acetaminophen 325 Mg Tablet) 650 mg PO Q6H PRN PRN Reason: Pain, Mild (Pain Scale 1-3), fever or headache Aspirin (Aspirin 81 Mg Tab.Chew) 81 mg PO DAILY [facility] Last Admin: 11/18/23 08:18 Dose: 81 mg Documented By: MIKHAIL Atorvastatin Calcium (Atorvastatin Calcium 40 Mg Tablet) 40 mg PO BEDTIME [facility] Last Admin: 11/17/23 21:33 Dose: 40 mg Documented By: BAIRON Benzonatate (Benzonatate 100 Mg Capsule) 100 mg PO TID PRN PRN Reason: Cough Calcium Carbonate (Calcium Carbonate 750 Mg Tab.Chew) 750 mg PO Q4H PRN PRN Reason: Heartburn Enoxaparin Sodium (Enoxaparin Sodium 40 Mg/0.4 Ml Syringe) 40 mg SUBCUT Q24H [facility] Last Admin: 11/17/23 16:46 Dose: 40 mg Documented By: RENZO Finasteride (Finasteride 5 Mg Tablet) 5 mg PO DAILY [facility] Last Admin: 11/18/23 08:18 Dose: 5 mg Documented By: MIKHAIL Glucose (Glucose Gel 15 Gm Gel..Gram.) 15 gm PO Q15M PRN; Protocol PRN Reason: per Hypoglycemia Standing Ord. Glyburide (Glyburide 2.5 Mg Tablet) 2.5 mg PO BID [facility] Last Admin: 11/18/23 08:18 Dose: 2.5 mg Documented By: MIKHAIL Dextrose (D10) 250 mls @ 750 mls/hr IV Q15M PRN; Protocol PRN Reason: per Hypoglycemia Standing Ord. Insulin Human Lispro (Insulin Lispro 100 Unit/Ml 3 Ml Vial) 0 unit SUBCUT QIDACHS [facility]; Protocol Magnesium Hydroxide (Milk Of Magnesia 30 Ml Oral.Susp) 30 ml PO DAILY PRN PRN Reason: Constipation Melatonin (Melatonin 3 Mg Tablet) 6 mg PO BEDTIME PRN PRN Reason: Insomnia Ondansetron HCl (Ondansetron Hcl 4 Mg/2 Ml Vial) 4 mg IVPUSH Q8H PRN PRN Reason: Nausea and Vomiting Sacubitril/Valsartan (Sacubitril/Valsartan 1 Tab Tablet) 1 tab PO BID [facility]; Protocol Last Admin: 11/18/23 08:18 Dose: 1 tab Documented By: MIKHAIL Sodium Chloride (0.9 % Sodium Chloride Flush 3 Ml Syringe) 3 ml IVFLUSH QSHIFT [facility] Last Admin: 11/18/23 08:18 Dose: 3 ml Documented By: MIKHAIL Spironolactone (Spironolactone 25 Mg Tablet) 25 mg PO DAILY [facility]; Protocol Last Admin: 11/18/23 08:18 Dose: 25 mg Documented By: MIKHAIL Tamsulosin HCl (Tamsulosin Hcl 0.4 Mg Capsule) 0.4 mg PO DAILY [facility] Last Admin: 11/18/23 08:18 Dose: 0.4 mg Documented By: MIKHAIL Labs 11/16/23 13:21 11/18/23 06:08 Labs: Laboratory Results - last 24 hr 11/17/23 11/17/23 11/18/23 06:33 11:37 06:08 Anion Gap 15 Estim Creat Clear Calc 57.9 Estimated GFR > 60 POC Glucose 160 H Fasting Glucose 141 H Calcium 8.5 D Total Bilirubin 0.8 AST 631 H 178 H ALT 804 H 470 H Alkaline Phosphatase 84 Total Protein 6.7 Albumin 3.2 L Assessment and Plan (1) Acute on chronic clinical systolic heart failure: Status: Acute (2) Diabetes mellitus: Status: Acute (3) Hypertension: Status: Acute Plan Pt is a 88-year-old male with a PMH significant for HFrEF 20-25%, ischemic cardiomyopathy with total LAD occlusion, qyp-jxyxvvi-mhmoovdyc type 2 diabetes, HTN, HLD, alcohol dependence,?and urinary retention with suprapubic catheter placed 5 days ago on 11/11/2023 who presents to the ED with?shortness of breath and dyspnea upon exertion. Pt will be admitted to the hospital for treatment and further evaluation of acute on chronic HFrEF exacerbation. 1.Acute on chronic systolic CHF -appears euvolemic, 3 L negative, noted to have soft blood pressures, symptomatic with lightheadedness and weakness Echo on 07/03/2023 showed LVEF 20-25% with regional wall motion abnormality in LAD territory, seen by Cardiology, cardiac catheterization, lad with ostial occlusion, [id number] and [id number]-cp-[id number] collaterals. will DC Lasix 40 mg IV b.i.d, hold Entresto stable renal function, follow renals/divalents. 2.Asymptomatic SVT -continue beta-desiree, seen by Cardiology noted to have short runs of atrial tachycardia likely due to cardiomyopathy. Continue tele monitor. 3.Transaminitis -trend daily -likely secondary to low-flow states -follow LFTs, hold statins. 4.Ari-ybajgle-vwyrutxmx type 2 diabetes -acceptable control on current therapies -continue glyburide 2.5 mg b.i.d. and lispro correctional scale Full Code Lovenox Patient will require ongoing hospitalization for IV diuresis and specialist as consultation Quality Stroke Does the patient have a stroke diagnosis?: No VTE Prior VTE?: No VTE Risk Level:: Medical - moderate - high VTE Device Contraindication: Treatment Not Indicated VTE Drug Contraindication: N/A - Med Ordered
[2023-11-18 11:34] LABS: Glucose, Whole Blood 157 mg/dL (60-115)
--- NOTE | 2023-11-18 11:47 | MHC.CLN ---
RE; CONSULT PT TRIGGERS FOR 14% SIGNIFICANT WT LOSS X 6 MONTHS WITH ADVANCED AGE AND POOR PO INTAKE PT ADMITTED WITH CHF AND USES DIURETICS WHICH MAY ALSO BE CONTRIBUTOR TO RECENT WT LOSS DIET RX: 2GM NA -APPROPRIATE RECOMMEND ADDING ENSURE BID TO INCREASE KCALS SUPP PROVIDES 700KCALS, 40G PROTEIN MONITOR PO INTAKE AND ENCOURAGE SUPPLEMENTS SEE ALSO FULL CLINICAL NUTRITION ASSESSMENT
[2023-11-18] MEDS: Insulin Lispro 100 UNIT/ML 3 ML VIAL SUBCUT ×3 (12:29→21:13)
--- NOTE | 2023-11-18 12:45 | MHC.CM.PN ---
Patient is not yet medically cleared for dc (feeling lightheaded & weak this morning); home/resume services is the goal and CM will follow.
[2023-11-18 15:50] LABS: Glucose, Whole Blood 169 mg/dL (60-115)
[2023-11-18] MEDS: Enoxaparin Sodium 40 MG/0.4 ML SYRINGE SUBCUT (16:55)
[2023-11-18 20:33] LABS: Glucose, Whole Blood 211 mg/dL (60-115)
--- NOTE | 2023-11-18 23:16 | PC.NURSE ---
2300 pt hr 180's. pt lying in bed denies c/o palpitations, no SOB. followed by cardiology with diuretics currently on hold. HR currently 130's notified.
[2023-11-19] VITALS (7 sets, daily range): BP systolic 83–100; BP diastolic 52–63; PULSE 86–138; RESP 17–68; TEMP 36.1–36.6; O2SAT 96–98; BMI 21.3
[2023-11-19] MEDS: Albumin Human 25 % 100 ML IV
--- NOTE | 2023-11-19 | ECG_ITS ---
Test Reason : RAPID AFIB Blood Pressure : / mmHG Vent. Rate : 134 BPM Atrial Rate : 000 BPM P-R Int : 000 ms QRS Dur : 124 ms QT Int : 364 ms P-R-T Axes : 000 -49 117 degrees QTc Int : 543 ms Atrial fibrillation with rapid ventricular response Left anterior fascicular block Abnormal QRS-T angle, consider primary T wave abnormality Abnormal ECG When compared with ECG of 16-NOV-2023 13:06, Atrial fibrillation has replaced Sinus rhythm Nonspecific T wave abnormality no longer evident in Anterior leads Referred By: Jenn Osman Electronically Signed By:Devaughn Blanca
--- NOTE | 2023-11-19 | ECG_ITS ---
Test Reason : MANAGER BUSINESS INFORMATION ORDER Blood Pressure : / mmHG Vent. Rate : 104 BPM Atrial Rate : 227 BPM P-R Int : 000 ms QRS Dur : 126 ms QT Int : 370 ms P-R-T Axes : 000 -42 153 degrees QTc Int : 486 ms Atrial fibrillation with RVR Left axis deviation Non-specific intra-ventricular conduction block Nonspecific T wave abnormality Abnormal ECG When compared with ECG of 19-NOV-2023 01:11, Nonspecific T wave abnormality now evident in Anterior leads Referred By: Devaughn Blanca Electronically Signed By:Devaughn Blanca
--- NOTE | 2023-11-19 01:24 | PM.EVENT ---
Event Note Date of Service: 11/19/23 Event Note: Nurse reported blood pressure in the 80s. Patient asymptomatic. Heart rate elevated, irregular. Will obtain EKG. Noted cardiology's note> patient with blood pressure in the 80s yesterday as well. Entresto and Lasix on hold. Will administer albumin and follow up on EKG Time Spent With Patient Time: Total time managing care of this patient today ____ minutes.
[2023-11-19] MEDS: Amiodarone/Dextrose 150 MG/100 ML PLAST..BAG 600 MG IV (02:46)
[2023-11-19] MEDS: Amiodarone HCL 900 MG in 0.9 % Sodium Chloride 500 ML 34.53 MG IVCONT (03:06)
[2023-11-19] MEDS: Albumin Human 25 % 100 ML 133.33 ML IV ×2 (03:19→04:17)
[2023-11-19 07:05] LABS: Alanine Aminotransferase 264 U/L (0-40); Alkaline Phosphatase 67 U/L (39-117); Aspartate Amino Transferase 75 U/L (5-37); Bilirubin Direct 0.5 mg/dL (0.0-0.5); Bilirubin Total 0.9 mg/dL (0.0-1.0); Blood Urea Nitrogen 24 mg/dL (9-16); Calcium 8.8 mg/dL (8.4-10.2); Creatinine Clr Calc Pharmacy 49.8; Estimated Glomerular Filt Rate > 60; Glucose Fasting 116 mg/dL (60-99); Glucose Random 115 mg/dL (60-115); Total Protein 6.4 g/dL (6.5-8.0)
[2023-11-19 07:41] LABS: Glucose, Whole Blood 127 mg/dL (60-115)
[2023-11-19 07:52] LABS: Anion Gap 16 (12-20); Carbon Dioxide 21 mmol/L (22-29); Chloride 102 mmol/L (96-108); Potassium 2.9 mmol/L (3.3-5.1); Sodium 136 mmol/L (135-145)
[2023-11-19] MEDS: glyBURIDE 2.5 MG TABLET PO ×2 (08:35→20:57)
[2023-11-19] MEDS: Finasteride 5 MG TABLET PO (08:35)
[2023-11-19] MEDS: 0.9 % Sodium Chloride Flush 3 ML SYRINGE IVFLUSH (08:35)
[2023-11-19] MEDS: Aspirin 81 MG TAB.CHEW PO (08:35)
[2023-11-19] MEDS: Tamsulosin HCL 0.4 MG CAPSULE PO (08:35)
[2023-11-19] MEDS: Potassium Chloride ER 20 MEQ TAB.ER.PRT 40 MEQ PO (08:35)
[2023-11-19] MEDS: 0.9 % Sodium Chloride 1,000 ML 100 ML IVCONT (08:36)
--- NOTE | 2023-11-19 10:11 | PM.PNCARD ---
Subjective Subjective Date of Service: 11/19/23 Interval history: Seen and examined at bedside. He had low BP overnight and tachycardia-ECG showed Afib but tele showing persistent regular tachycardia HR 120s. he is on amiodarone. Physical Exam Vital Signs: Last Vital Signs Temp 97.6 F 11/19/23 07:32 Pulse 111 H 11/19/23 07:32 Resp 17 11/19/23 07:32 BP 94/55 L 11/19/23 07:32 Pulse Ox 96 11/19/23 07:32 O2 Del Method Room Air 11/19/23 07:32 BMI result Body Mass Index 21.3 GENERAL APPEARANCE: in no acute distress, pleasant. NECK: no carotid bruit, no jugular venous distention. SKIN: no suspicious lesions, warm and dry. HEART: no murmurs, regular rate and rhythm. tachycardic LUNGS: clear to auscultation bilaterally. ABDOMEN: soft, nontender. EXTREMITIES: no edema. PERIPHERAL PULSES: equal. NEUROLOGIC: No gross deficits, AAO X 3 Objective Labs and Meds 11/16/23 13:21 11/19/23 06:09 Lab results: Laboratory Results - last 24 hr 11/18/23 11/18/23 11/18/23 11:26 15:46 20:26 Hold Purple Top Sodium Potassium Chloride Carbon Dioxide Anion Gap BUN Creatinine Estim Creat Clear Calc Estimated GFR POC Glucose 157 H 169 H 211 H Random Glucose Fasting Glucose Calcium Total Bilirubin Direct Bilirubin AST ALT Alkaline Phosphatase Total Protein Albumin 11/19/23 11/19/23 06:09 07:38 Hold Purple Top SEE NOTE Sodium 136 Potassium 2.9 L* D Chloride 102 Carbon Dioxide 21 L Anion Gap 16 BUN 24 H Creatinine 1.05 Estim Creat Clear Calc 49.8 Estimated GFR > 60 POC Glucose 127 H Random Glucose 115 Fasting Glucose 116 H Calcium 8.8 Total Bilirubin 0.9 Direct Bilirubin 0.5 AST 75 H ALT 264 H Alkaline Phosphatase 67 Total Protein 6.4 L Albumin 4.0 Progress Note: A&P Assessment and plan (1) Atrial tachycardia: Status: Acute (2) Acute on chronic systolic and diastolic heart failure, NYHA class 3: Status: Acute (3) PAF (paroxysmal atrial fibrillation): Status: Acute Plan [age] year gentleman with severe cardiomyopathy and ostial LAD [employer] with [id number] and ycqvf-gy-[id number] collaterals. Previously had no symptoms but now presenting with dyspnea and congestive heart failure. He was started on guideline directed medical therapy and apparently had some dizziness. He is saying he is getting dizzy when sitting in bed. Blood pressures this morning were documented in 80s as per discussion with medicine team. Hold Entresto. Monitor I's and O's. Can stop diuretics currently because he appears euvolemic. He has severe LAD stenosis which is the likely cause for cardiomyopathy. Previously was asymptomatic and medical treatment was pursued. We will discuss further management as outpatient in the office. 11/19/23- He had Afib overnight and was started on amiodarone. He has been in Afib and also at times in atrial tach. continue amiodarone. I think stop aspirin and start him on Eliquis for anticoagulation. hold beta bockers for now. Thank you for allowing me to participate in the care of your patient. Please feel free to contact me if you have any questions. Time Spent With Patient Time: Total time managing care of this patient today ____ minutes. Progress Note: Quality Stroke Does the patient have a stroke diagnosis?: No Procedures Date of Service Date of Service: 11/19/23
[2023-11-19 10:29] LABS: Magnesium 1.7 mg/dL (1.6-2.6)
[2023-11-19] MEDS: Milk of Magnesia 30 ML ORAL.SUSP PO (10:39)
[2023-11-19] MEDS: polyethylene glycoL 3350 17 GM POWD.PACK PO (10:39)
[2023-11-19] MEDS: Magnesium Sulfate/D5W 1 GM/100 ML PIGGYBACK IV (10:40)
--- NOTE | 2023-11-19 11:03 | HO.PM.IMPN ---
Subjective Subjective Date of Service: 11/19/23 Interval History: Events from last night noted patient had low BP with atrial tachycardia/atrial fibrillation last night placed on IV amiodarone drip, this morning tele monitor showed atrial tachycardia heart rate around 120 Patient complaining of lightheadedness, denies chest pain, no palpitations, denies headache, no nausea, no vomiting, no bowel movement in last 4 days, denies muscular pain. Review of Systems All other system are reviewed and are negative Physical Exam Vital Signs: Vital Signs: Last Vital Signs Temp 97.6 F 11/19/23 07:32 Pulse 111 H 11/19/23 07:32 Resp 17 11/19/23 07:32 BP 94/55 L 11/19/23 07:32 Pulse Ox 96 11/19/23 07:32 O2 Del Method Room Air 11/19/23 07:32 BMI result Body Mass Index 21.3 Const: Other: General awake alert x3, in no acute distress. Neck no JVD. CVS tachy regular rate rhythm, Respiratory lungs clear to auscultation, no respiratory distress, no wheeze, no rhonchi. Gastrointestinal abdomen soft, non tender, bowel sounds audible,no guarding , no rigidity. Extremities no edema. Neuro non focal Skin no rash Psych appropriate affect Objective Data Active Medications Acetaminophen (Acetaminophen 325 Mg Tablet) 650 mg PO Q6H PRN PRN Reason: Pain, Mild (Pain Scale 1-3), fever or headache Aspirin (Aspirin 81 Mg Tab.Chew) 81 mg PO DAILY [facility] Last Admin: 11/19/23 08:35 Dose: 81 mg Documented By: MIKHAIL Benzonatate (Benzonatate 100 Mg Capsule) 100 mg PO TID PRN PRN Reason: Cough Calcium Carbonate (Calcium Carbonate 750 Mg Tab.Chew) 750 mg PO Q4H PRN PRN Reason: Heartburn Enoxaparin Sodium (Enoxaparin Sodium 40 Mg/0.4 Ml Syringe) 40 mg SUBCUT Q24H [facility] Last Admin: 11/18/23 16:55 Dose: 40 mg Documented By: MIKHAIL Finasteride (Finasteride 5 Mg Tablet) 5 mg PO DAILY [facility] Last Admin: 11/19/23 08:35 Dose: 5 mg Documented By: MIKHAIL Glucose (Glucose Gel 15 Gm Gel..Gram.) 15 gm PO Q15M PRN; Protocol PRN Reason: per Hypoglycemia Standing Ord. Glyburide (Glyburide 2.5 Mg Tablet) 2.5 mg PO BID [facility] Last Admin: 11/19/23 08:35 Dose: 2.5 mg Documented By: MIKHAIL Dextrose (D10) 250 mls @ 750 mls/hr IV Q15M PRN; Protocol PRN Reason: per Hypoglycemia Standing Ord. Amiodarone HCl 900 mg/ Sodium (Chloride) 518 mls @ 34.533 mls/hr IVCONT .Q15H1M [facility]; Protocol Last Infusion: 11/19/23 09:10 Dose: 0.5 mg/min, 17.27 mls/hr Documented By: MIKHAIL Sodium Chloride (Ns) 1,000 mls @ 100 mls/hr IVCONT .Q10H [facility] Last Admin: 11/19/23 08:36 Dose: 100 mls/hr Documented By: MIKHAIL Insulin Human Lispro (Insulin Lispro 100 Unit/Ml 3 Ml Vial) 0 unit SUBCUT QIDACHS [facility]; Protocol Last Admin: 11/19/23 08:30 Dose: Not Given Documented By: MIKHAIL Non-Admin Reason: No Insulin Coverage Comments: POC 127 Magnesium Hydroxide (Milk Of Magnesia 30 Ml Oral.Susp) 30 ml PO DAILY PRN PRN Reason: Constipation Melatonin (Melatonin 3 Mg Tablet) 6 mg PO BEDTIME PRN PRN Reason: Insomnia Metoprolol Succinate (Metoprolol Succinate Er 25 Mg Tab.Er.24h) 25 mg PO DAILY [facility]; Protocol Last Admin: 11/19/23 07:37 Dose: Not Given Documented By: MIKHAIL Non-Admin Reason: Physician Held Med Ondansetron HCl (Ondansetron Hcl 4 Mg/2 Ml Vial) 4 mg IVPUSH Q8H PRN PRN Reason: Nausea and Vomiting Polyethylene Glycol (Polyethylene Glycol 3350 17 Gm Powd.Pack) 17 gm PO DAILY [facility] Last Admin: 11/19/23 10:39 Dose: 17 gm Documented By: MIKHAIL Sacubitril/Valsartan (Sacubitril/Valsartan 1 Tab Tablet) 1 tab PO BID [facility]; Protocol Last Admin: 11/19/23 07:36 Dose: Not Given Documented By: MIKHAIL Non-Admin Reason: Decreased Blood Pressure Sodium Chloride (0.9 % Sodium Chloride Flush 3 Ml Syringe) 3 ml IVFLUSH QSHIFT [facility] Last Admin: 11/19/23 08:35 Dose: 3 ml Documented By: MIKHAIL Tamsulosin HCl (Tamsulosin Hcl 0.4 Mg Capsule) 0.4 mg PO DAILY [facility] Last Admin: 11/19/23 08:35 Dose: 0.4 mg Documented By: MIKHAIL Labs 11/16/23 13:21 11/19/23 06:09 Labs: Laboratory Results - last 24 hr 11/18/23 11/18/23 11/18/23 11:26 15:46 20:26 Hold Purple Top Anion Gap Estim Creat Clear Calc Estimated GFR POC Glucose 157 H 169 H 211 H Random Glucose Fasting Glucose Calcium Magnesium Total Bilirubin Direct Bilirubin AST ALT Alkaline Phosphatase Total Protein Albumin 11/19/23 11/19/23 06:09 07:38 Hold Purple Top SEE NOTE Anion Gap 16 Estim Creat Clear Calc 49.8 Estimated GFR > 60 POC Glucose 127 H Random Glucose 115 Fasting Glucose 116 H Calcium 8.8 Magnesium 1.7 Total Bilirubin 0.9 Direct Bilirubin 0.5 AST 75 H ALT 264 H Alkaline Phosphatase 67 Total Protein 6.4 L Albumin 4.0 Assessment and Plan (1) Acute on chronic clinical systolic heart failure: Status: Acute (2) Diabetes mellitus: Status: Acute (3) Hypertension: Status: Acute Plan Pt is a 88-year-old male with a PMH significant for HFrEF 20-25%, ischemic cardiomyopathy with total LAD occlusion, xsi-tuojxrn-edhhqmyak type 2 diabetes, HTN, HLD, alcohol dependence,?and urinary retention with suprapubic catheter placed 5 days ago on 11/11/2023 who presents to the ED with?shortness of breath and dyspnea upon exertion. Pt will be admitted to the hospital for treatment and further evaluation of acute on chronic HFrEF exacerbation. 1.Acute on chronic systolic CHF appears euvolemic, > 3 L negative, diuretic discontinued yesterday Persistent soft blood pressures, symptomatic with lightheadedness and weakness Echo on 07/03/2023 showed LVEF 20-25% with regional wall motion abnormality in LAD territory, seen by Cardiology, cardiac catheterization, lad with ostial occlusion, [id number]-[id number] and [id number]-[id number] collaterals. Continue to hold Lasix/Entresto and beta-blockers Will give 500 normal saline follow blood pressure closely 2.Asymptomatic SVT/atrial arrhythmias Last night noted to have atrial tachycardia/atrial fibrillation with ventricular rate in 180s Due to soft blood pressures started on IV amiodarone drip EKG this morning showing atrial fibrillation , will continue amiodarone drip hold beta-blockers due to soft blood pressure, will verify rhythm with Cardiology and discuss anticoagulation. Replete potassium and keep K greater than 4 and magnesium greater than 2 3.Transaminitis -gradually improving -likely secondary to low-flow states -follow LFTs, hold statins. 4.Crt-nftoaud-oixsbkgel type 2 diabetes -acceptable control on current therapies -continue glyburide 2.5 mg b.i.d. and lispro correctional scale 5. Hypokalemia likely due to diuretics will replete and follow labs Full Code Cesarx Patient will require ongoing hospitalization for atrial tachycardia on IV amiodarone drip treatment can not be provided in less acute setting Quality Stroke Does the patient have a stroke diagnosis?: No VTE Prior VTE?: No VTE Risk Level:: Medical - moderate - high VTE Device Contraindication: Treatment Not Indicated VTE Drug Contraindication: N/A - Med Ordered
[2023-11-19 11:11] LABS: Glucose, Whole Blood 181 mg/dL (60-115)
[2023-11-19] MEDS: Insulin Lispro 100 UNIT/ML 3 ML VIAL SUBCUT ×3 (12:02→20:58)
[2023-11-19] MEDS: Potassium Chloride ER 20 MEQ TAB.ER.PRT PO (14:20)
[2023-11-19 16:00] LABS: Glucose, Whole Blood 213 mg/dL (60-115)
[2023-11-19] MEDS: Enoxaparin Sodium 40 MG/0.4 ML SYRINGE SUBCUT (17:43)
[2023-11-19 19:16] LABS: Glucose, Whole Blood 264 mg/dL (60-115)
[2023-11-19] MEDS: Apixaban 5 MG TABLET PO (20:57)
[2023-11-19] MEDS: Melatonin 3 MG TABLET 6 MG PO (20:57)
[2023-11-19] MEDS: Amiodarone HCL 200 MG TABLET 400 MG PO (20:57)
[2023-11-20] VITALS: BP 98/53; PULSE 91; RESP 20; TEMP 36.4; O2SAT 98
[2023-11-20] MEDS: 0.9 % Sodium Chloride Flush 3 ML SYRINGE IVFLUSH ×4 (00:03→23:21)
[2023-11-20 03:43] VITALS: BP 88/54; PULSE 85; RESP 20; TEMP 36.1; O2SAT 96
[2023-11-20 04:31] VITALS: BMI 22.1
[2023-11-20] MEDS: Albumin Human 25 % 100 ML IV (05:19)
[2023-11-20 07:03] LABS: Alanine Aminotransferase 229 U/L (0-40); Albumin Level 4.1 g/dL (3.5-5.0); Alkaline Phosphatase 70 U/L (39-117); Anion Gap 14 (12-20); Aspartate Amino Transferase 66 U/L (5-37); Blood Urea Nitrogen 24 mg/dL (9-16); Calcium 9.1 mg/dL (8.4-10.2); Carbon Dioxide 22 mmol/L (22-29); Chloride 104 mmol/L (96-108); Creatinine Clr Calc Pharmacy 57.3; Estimated Glomerular Filt Rate > 60; Glucose Fasting 129 mg/dL (60-99); Potassium 4.2 mmol/L (3.3-5.1); Sodium 136 mmol/L (135-145); Total Protein 6.6 g/dL (6.5-8.0)
[2023-11-20 07:27] LABS: Glucose, Whole Blood 114 mg/dL (60-115)
[2023-11-20 07:32] VITALS: BP 90/64; PULSE 85; RESP 17; TEMP 36.3; O2SAT 96
[2023-11-20] MEDS: polyethylene glycoL 3350 17 GM POWD.PACK PO (10:19)
[2023-11-20] MEDS: glyBURIDE 2.5 MG TABLET PO ×2 (10:19→20:17)
[2023-11-20] MEDS: Finasteride 5 MG TABLET PO (10:19)
[2023-11-20] MEDS: Tamsulosin HCL 0.4 MG CAPSULE PO (10:19)
[2023-11-20] MEDS: Apixaban 5 MG TABLET PO ×2 (10:20→20:17)
--- NOTE | 2023-11-20 10:41 | MHC.CM.PN ---
Per ROUNDS discussion, Patient is not yet medically cleared for dc (issues with BP); home with services is the goal and CM will continue to follow.
--- NOTE | 2023-11-20 11:03 | MHC.CLN ---
F/U PO INTAKE 75-100% DIET RX: 2GM NA -APPROPRIATE PT RECEIVING ENSURE BID TO INCREASE KCALS SUPP PROVIDES 700KCALS, 40G PROTEIN MONITOR PO INTAKE AND ENCOURAGE SUPPLEMENTS DAILY WTS ARE STABLE AT THIS TIME
[2023-11-20 11:21] LABS: Glucose, Whole Blood 232 mg/dL (60-115)
[2023-11-20 11:23] VITALS: BP 94/57; PULSE 96; RESP 18; TEMP 36.1; O2SAT 98
--- NOTE | 2023-11-20 11:29 | HO.PM.IMPN ---
Subjective Subjective Date of Service: 11/20/23 Interval History: borderline bp, asymptomatic now, hasnt challenged himself much though Physical Exam Vital Signs: Vital Signs: Last Vital Signs Temp 96.9 F 11/20/23 11:23 Pulse 96 11/20/23 11:23 Resp 18 11/20/23 11:23 BP 94/57 L 11/20/23 11:23 Pulse Ox 98 11/20/23 11:23 O2 Del Method Room Air 11/20/23 11:23 BMI result Body Mass Index 22.1 Const: Other: General awake alert x3, in no acute distress. Neck no JVD. CVS tachy regular rate rhythm, Respiratory lungs clear to auscultation, no respiratory distress, no wheeze, no rhonchi. Gastrointestinal abdomen soft, non tender, bowel sounds audible,no guarding , no rigidity. Extremities no edema. Neuro non focal Skin no rash Psych appropriate affect Objective Data Active Medications Acetaminophen (Acetaminophen 325 Mg Tablet) 650 mg PO Q6H PRN PRN Reason: Pain, Mild (Pain Scale 1-3), fever or headache Amiodarone HCl (Amiodarone Hcl 200 Mg Tablet) 400 mg PO BID FORMERLY [facility], [facility] Last Admin: 11/19/23 20:57 Dose: 400 mg Apixaban (Apixaban 5 Mg Tablet) 5 mg PO BID FORMERLY [facility], [facility] Last Admin: 11/20/23 10:20 Dose: 5 mg Documented By: RENUKA Benzonatate (Benzonatate 100 Mg Capsule) 100 mg PO TID PRN PRN Reason: Cough Calcium Carbonate (Calcium Carbonate 750 Mg Tab.Chew) 750 mg PO Q4H PRN PRN Reason: Heartburn Finasteride (Finasteride 5 Mg Tablet) 5 mg PO DAILY FORMERLY [facility], [facility] Last Admin: 11/20/23 10:19 Dose: 5 mg Documented By: RENUKA Glucose (Glucose Gel 15 Gm Gel..Gram.) 15 gm PO Q15M PRN; Protocol PRN Reason: per Hypoglycemia Standing Ord. Glyburide (Glyburide 2.5 Mg Tablet) 2.5 mg PO BID FORMERLY [facility], [facility] Last Admin: 11/20/23 10:19 Dose: 2.5 mg Documented By: RENUKA Dextrose (D10) 250 mls @ 750 mls/hr IV Q15M PRN; Protocol PRN Reason: per Hypoglycemia Standing Ord. Insulin Human Lispro (Insulin Lispro 100 Unit/Ml 3 Ml Vial) 0 unit SUBCUT QIDACHS FORMERLY [facility], [facility]; Protocol Last Admin: 11/20/23 10:03 Dose: Not Given Documented By: RENUKA Non-Admin Reason: No Insulin Coverage Magnesium Hydroxide (Milk Of Magnesia 30 Ml Oral.Susp) 30 ml PO DAILY PRN PRN Reason: Constipation Melatonin (Melatonin 3 Mg Tablet) 6 mg PO BEDTIME PRN PRN Reason: Insomnia Last Admin: 11/19/23 20:57 Dose: 6 mg Documented By: KINGSLEY Ondansetron HCl (Ondansetron Hcl 4 Mg/2 Ml Vial) 4 mg IVPUSH Q8H PRN PRN Reason: Nausea and Vomiting Polyethylene Glycol (Polyethylene Glycol 3350 17 Gm Powd.Pack) 17 gm PO DAILY FOR[facility]LY [facility], [facility] Last Admin: 11/20/23 10:19 Dose: 17 gm Documented By: RENUKA Sodium Chloride (0.9 % Sodium Chloride Flush 3 Ml Syringe) 3 ml IVFLUSH QSHIFT FOR[facility]LY [facility], [facility] Last Admin: 11/20/23 10:20 Dose: 3 ml Documented By: RENUKA Tamsulosin HCl (Tamsulosin Hcl 0.4 Mg Capsule) 0.4 mg PO DAILY FOR[facility]LY [facility], [facility] Last Admin: 11/20/23 10:19 Dose: 0.4 mg Documented By: RENUKA Labs 11/16/23 13:21 11/20/23 06:16 Labs: Laboratory Results - last 24 hr 11/19/23 11/19/23 11/20/23 15:54 19:11 06:16 Hold Purple Top SEE NOTE Anion Gap 14 Estim Creat Clear Calc 57.3 Estimated GFR > 60 POC Glucose 213 H 264 H Fasting Glucose 129 H Calcium 9.1 Total Bilirubin 1.0 AST 66 H ALT 229 H Alkaline Phosphatase 70 Total Protein 6.6 Albumin 4.1 11/20/23 11/20/23 07:11 11:15 Hold Purple Top Anion Gap Estim Creat Clear Calc Estimated GFR POC Glucose 114 232 H Fasting Glucose Calcium Total Bilirubin AST ALT Alkaline Phosphatase Total Protein Albumin Assessment and Plan (1) Acute on chronic clinical systolic heart failure: Status: Acute (2) Diabetes mellitus: Status: Acute (3) Hypertension: Status: Acute Plan 88M PMH significant for HFrEF 20-25%, ischemic cardiomyopathy with total LAD occlusion, [id number] type 2 diabetes, HTN, HLD, alcohol dependence,?and urinary retention with suprapubic catheter placed 5 days ago on 11/11/2023 presented to the ED with?shortness of breath and dyspnea upon exertion Acute on chronic systolic CHF s/p iv diuresis, was hypotensives given back some volume, lasix, beta desiree and entresto held Persistent soft blood pressures, symptomatic with lightheadedness and weakness Echo on 07/03/2023 showed LVEF 20-25% with regional wall motion abnormality in LAD territory, seen by Cardiology, cardiac catheterization, lad with ostial occlusion, dcyse-yj-hupj and ello-sj-pjpa collaterals. Continue to hold Lasix/Entresto and beta-blockers Asymptomatic SVT/ and paroxysmal afib contionue amio load, elqiuis now in sinus Transaminitis gradually improving likely secondary to low-flow states follow LFTs, hold statins. Yrq-luhseap-gkkaygrvq type 2 diabetes acceptable control on current therapies continue glyburide 2.5 mg b.i.d. and lispro correctional scale Hypokalemia resolved Full Code Lovenox reason for continued hospitalization:borderline bp Quality Stroke Does the patient have a stroke diagnosis?: No VTE Prior VTE?: No VTE Risk Level:: Medical - moderate - high VTE Device Contraindication: Treatment Not Indicated VTE Drug Contraindication: N/A - Med Ordered
[2023-11-20] MEDS: Amiodarone HCL 200 MG TABLET 400 MG PO ×2 (11:41→20:16)
--- NOTE | 2023-11-20 12:59 | PM.PNCARD ---
Subjective Subjective Date of Service: 11/20/23 Interval history: Seen and examined at bedside. He reverted back to sinus rhythm and is on oral amiodarone currently. Blood pressure continues to be borderline. Denying any dizziness but feeling weak when he tries to walk. Physical Exam Vital Signs: Last Vital Signs Temp 96.9 F 11/20/23 11:23 Pulse 96 11/20/23 11:23 Resp 18 11/20/23 11:23 BP 94/57 L 11/20/23 11:23 Pulse Ox 98 11/20/23 11:23 O2 Del Method Room Air 11/20/23 11:23 BMI result Body Mass Index 22.1 GENERAL APPEARANCE: in no acute distress, pleasant. NECK: no carotid bruit, no jugular venous distention. SKIN: no suspicious lesions, warm and dry. HEART: no murmurs, regular rate and rhythm. tachycardic LUNGS: clear to auscultation bilaterally. ABDOMEN: soft, nontender. EXTREMITIES: no edema. PERIPHERAL PULSES: equal. NEUROLOGIC: No gross deficits, AAO X 3 Objective Labs and Meds 11/16/23 13:21 11/20/23 06:16 Lab results: Laboratory Results - last 24 hr 11/19/23 11/19/23 11/20/23 15:54 19:11 06:16 Hold Purple Top SEE NOTE Sodium 136 Potassium 4.2 D Chloride 104 Carbon Dioxide 22 Anion Gap 14 BUN 24 H Creatinine 0.95 Estim Creat Clear Calc 57.3 Estimated GFR > 60 POC Glucose 213 H 264 H Fasting Glucose 129 H Calcium 9.1 Total Bilirubin 1.0 AST 66 H ALT 229 H Alkaline Phosphatase 70 Total Protein 6.6 Albumin 4.1 11/20/23 11/20/23 07:11 11:15 Hold Purple Top Sodium Potassium Chloride Carbon Dioxide Anion Gap BUN Creatinine Estim Creat Clear Calc Estimated GFR POC Glucose 114 232 H Fasting Glucose Calcium Total Bilirubin AST ALT Alkaline Phosphatase Total Protein Albumin Progress Note: A&P Assessment and plan (1) Atrial tachycardia: Status: Acute (2) Acute on chronic systolic and diastolic heart failure, NYHA class 3: Status: Acute (3) PAF (paroxysmal atrial fibrillation): Status: Acute Plan [age] year gentleman with severe cardiomyopathy and 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 Previously had no symptoms but now presenting with dyspnea and congestive heart failure. He was started on guideline directed medical therapy and apparently had some dizziness and hypotension. Medication was subsequently held and diuretics were stopped and he was given IV fluids. He also was hypokalemic and received some potassium supplements. He developed atrial tachycardia as well as atrial fibrillation episode. He was started on amiodarone and has reverted back to sinus rhythm at this stage. Continue with amiodarone 400 mg twice a day for at least 7 days and then change him to 200 mg daily. Hold metoprolol. Hold Entresto currently. I think spironolactone 25 mg can be continued because he has been hypokalemic. Encouraged him to drink more water. I would probably not give him any diuretics at discharge. He will see us after discharge and medications will be adjusted as outpatient if possible. He has severe LAD stenosis which is the likely cause for cardiomyopathy. Previously was asymptomatic and medical treatment was pursued. We will discuss further management as outpatient in the office. He is off aspirin at this stage. He should be on Eliquis only for now due to high bleeding risk. Thank you for allowing me to participate in the care of your patient. Please feel free to contact me if you have any questions. Time Spent With Patient Time: Total time managing care of this patient today ____ minutes. Progress Note: Quality Stroke Does the patient have a stroke diagnosis?: No Procedures Date of Service Date of Service: 11/20/23
[2023-11-20] MEDS: Insulin Lispro 100 UNIT/ML 3 ML VIAL SUBCUT ×2 (13:55→20:17)
[2023-11-20] MEDS: Spironolactone 25 MG TABLET PO (13:56)
[2023-11-20 15:20] VITALS: BP 108/61; PULSE 96; RESP 18; TEMP 36.4; O2SAT 99
[2023-11-20 16:14] LABS: Glucose, Whole Blood 150 mg/dL (60-115)
[2023-11-20 20:00] VITALS: BP 108/56; PULSE 95; RESP 20; TEMP 36.6; O2SAT 98
[2023-11-20 20:22] LABS: Glucose, Whole Blood 206 mg/dL (60-115)
[2023-11-21] VITALS: BP 96/58; PULSE 97; RESP 20; TEMP 37.1; O2SAT 97
[2023-11-21 03:58] VITALS: BP 103/65; PULSE 97; RESP 16; TEMP 36.6; O2SAT 95
[2023-11-21 06:00] VITALS: BMI 22.6
[2023-11-21 06:58] LABS: Hematocrit 32.2 % (42.0-52.0); Hemoglobin 10.3 g/dl (14.0-18.0); Mean Corpuscular Hemoglobin 28.6 pg (27.0-33.0); Mean Corpuscular Volume 89.4 fL (80.0-98.0); Platelet Count 330 X10*3/uL (160-400); Red Cell Distribution Width 18.6 % (11.0-16.0); White Blood Count 9.8 X10*3/uL (4.8-10.8)
[2023-11-21 07:00] LABS: Glucose, Whole Blood 120 mg/dL (60-115)
[2023-11-21 07:09] VITALS: BP 98/62; PULSE 90; RESP 18; TEMP 37.1; O2SAT 96
[2023-11-21 07:12] LABS: Alanine Aminotransferase 201 U/L (0-40); Alkaline Phosphatase 80 U/L (39-117); Anion Gap 14 (12-20); Aspartate Amino Transferase 60 U/L (5-37); Bilirubin Direct 0.3 mg/dL (0.0-0.5); Bilirubin Total 0.9 mg/dL (0.0-1.0); Blood Urea Nitrogen 24 mg/dL (9-16); Calcium 9.6 mg/dL (8.4-10.2); Carbon Dioxide 22 mmol/L (22-29); Chloride 105 mmol/L (96-108); Estimated Glomerular Filt Rate > 60; Glucose Fasting 112 mg/dL (60-99); Potassium 4.5 mmol/L (3.3-5.1); Sodium 136 mmol/L (135-145); Total Protein 6.9 g/dL (6.5-8.0)
[2023-11-21] MEDS: glyBURIDE 2.5 MG TABLET PO (08:08)
[2023-11-21] MEDS: polyethylene glycoL 3350 17 GM POWD.PACK PO (08:08)
[2023-11-21] MEDS: 0.9 % Sodium Chloride Flush 3 ML SYRINGE IVFLUSH (08:08)
[2023-11-21] MEDS: Apixaban 5 MG TABLET PO (08:08)
[2023-11-21] MEDS: Tamsulosin HCL 0.4 MG CAPSULE PO (08:08)
[2023-11-21] MEDS: Finasteride 5 MG TABLET PO (08:08)
[2023-11-21] MEDS: Spironolactone 25 MG TABLET PO (08:08)
[2023-11-21] MEDS: Amiodarone HCL 200 MG TABLET 400 MG PO (08:08)
--- NOTE | 2023-11-21 10:35 | P.DS_ITS ---
DS: Providers Provider Date of Service: 11/21/23 Date of admission: 11/16/23 16:52 Primary care physician: Dimitri Wilson MD Consults: 11/17/23 10:28 Consult to Cardiology Routine Consulting Provider: [facility] Reason for consultation: Tachycardia Has provider been notified: Yes DS: Diagnosis Discharge Diagnosis (1) Atrial tachycardia: Status: Acute (2) Acute on chronic systolic and diastolic heart failure, NYHA class 3: Status: Acute (3) PAF (paroxysmal atrial fibrillation): Status: Acute DS: Summary Hospital Course Hospital Course: from initial hpi: 88-year-old male with a PMH significant for HFrEF 20-25%, ischemic cardiomyopathy with total LAD occlusion, ubq-kqzgtrg-awylsdpat type 2 diabetes, HTN, HLD, alcohol dependence,?and urinary retention with suprapubic catheter placed 5 days ago on 11/11/2023 who presents to the ED with?shortness of breath and dyspnea upon exertion. Patient states when he awoke this morning at 06:00 felt short of breath significantly above baseline. Patient also has been experiencing increased STEVENSON with daily activity. Normally ambulates on own without assistive devices. Denies lower leg edema, though notes he has never experienced swelling in his extremities before. Reports has been compliant with home medications, including Lasix. However, patient noted to have question of mild memory impairment during interview and exam. Patient comes from home and reports living with his son and grandson. Denies chest pain/pressure, palpitations. No fever, chills, nausea, vomiting, abdominal pain. In the ED pt was tachycardic up to 105, vitals otherwise stable and WNL. Labs were significant for BNP 1392, AST 285, and ALT 392. No leukocytosis. Chronic normocytic anemia stable at 9 0.6/29.0. No significant electrolyte abnormalities. Renal function baseline. Initial troponin 20.9 with repeat flat at 19.8. CXR showed similar small right pleural effusion and right basilar consolidation. EKG demonstrated sinus tachycardia of 106 nonspecific T-wave abnormality but no evidence of significant ST elevations or depressions. Pt was treated with IV Lasix. Pt will be admitted to the hospital for treatment and further evaluation of acute on chronic HFrEF exacerbation. hospital course: Patient was admitted for acute on chronic systolic CHF. He was treated with IV Lasix and diuresed about 3 L, course was complicated by hypotension. Was given some fluid back. His metoprolol and valsartan were held. BP is improved. He was seen by Cardiology who recommended starting Aldactone 25 mg daily which he has so far tolerated. Course complicated by episodes of SVT and paroxysmal atrial fibrillation. He was started on amiodarone load and will continue 400 mg b.i.d. for 10 more days and then decrease to 200 mg daily. He was also started on Eliquis and his aspirin was discontinued. Patient is now in sinus rhythm. Patient also noted to have transaminitis on admission, the significantly improved throughout admission. Likely due to hepatic congestion from CHF. For diabetes he was continued on glyburide and insulin sliding scale. For hypokalemia received replacement. Patient is feeling better will be discharged home. Time Attestation Discharge Coordination Time (in mins): 34 Quality: Safe Use of Opioids Does Pt have an Active Cancer Diagnosis on the Problem List?: No Quality: Stroke Does the patient have a stroke diagnosis?: No Physical Exam Vital Signs: Vital Signs: Last Vital Signs Temp 98.7 F 11/21/23 07:09 Pulse 90 11/21/23 07:09 Resp 18 11/21/23 07:09 BP 98/62 11/21/23 07:09 Pulse Ox 96 11/21/23 07:09 O2 Del Method Room Air 11/21/23 07:09 BMI result Body Mass Index 22.6 GENERAL APPEARANCE: in no acute distress, pleasant. NECK: no carotid bruit, no jugular venous distention. SKIN: no suspicious lesions, warm and dry. HEART: no murmurs, regular rate and rhythm. tachycardic LUNGS: clear to auscultation bilaterally. ABDOMEN: soft, nontender. EXTREMITIES: no edema. PERIPHERAL PULSES: equal. NEUROLOGIC: No gross deficits, AAO X 3 DS: Data Data Completed and Pending Labs on day of discharge: Laboratory Results - last 24 hr 11/20/23 11/20/23 11/20/23 11:15 16:08 20:13 WBC RBC Hgb Hct MCV MCH MCHC RDW Plt Count MPV Absolute Nucleated RBC Nucleated RBC % (auto) Sodium Potassium Chloride Carbon Dioxide Anion Gap BUN Creatinine Estim Creat Clear Calc Estimated GFR POC Glucose 232 H 150 H 206 H Fasting Glucose Calcium Total Bilirubin Direct Bilirubin AST ALT Alkaline Phosphatase Total Protein Albumin 11/21/23 11/21/23 06:06 06:55 WBC 9.8 RBC 3.60 L Hgb 10.3 L Hct 32.2 L MCV 89.4 MCH 28.6 MCHC 32.0 RDW 18.6 H Plt Count 330 MPV 10.0 Absolute Nucleated RBC 0.000 Nucleated RBC % (auto) 0.0 Sodium 136 Potassium 4.5 Chloride 105 Carbon Dioxide 22 Anion Gap 14 BUN 24 H Creatinine 0.91 Estim Creat Clear Calc 61.0 Estimated GFR > 60 POC Glucose 120 H Fasting Glucose 112 H Calcium 9.6 Total Bilirubin 0.9 Direct Bilirubin 0.3 AST 60 H ALT 201 H Alkaline Phosphatase 80 Total Protein 6.9 Albumin 4.0 Discharge Plan Discharge Anticipated Discharge Date/Time: 11/21/23 10:31 Patient Disposition: Home, Self-Care Discharge Diagnosis: chf Referrals: Physician,Unknown J [Physician] - 1 Week Discharge Medications: New amiodarone 200 mg Tablet See Rx Instructions .ROUTE .COMPLEX Qty: 111 0RF Rx Instructions: 400mg bid for 10 more days, then decrease to 200mg daily Eliquis 5 mg Tablet 5 mg PO BID Qty: 180 0RF spironolactone 25 mg Tablet 25 mg PO DAILY Qty: 90 0RF Protocol: Hold for SBP< HOLD for SBP < : 90 Continued (DME) FreeStyle Lite Strips Strip See Rx Instructions .Route Qty: 100 8RF Rx Instructions: to check blood sugars once a day (DME) blood-glucose meter [Accu-Chek Guide Glucose Meter] Misc See Rx Instructions .Route Qty: 1 0RF Rx Instructions: As directed (DME) blood-glucose meter [FreeStyle Lite Meter] Kit See Rx Instructions .ROUTE .COMPLEX Qty: 1 0RF Dose Instruction: USE DIRECTED Rx Instructions: USE DIRECTED atorvastatin 40 mg tablet 40 mg PO BEDTIME Qty: 30 5RF glyburide 2.5 mg tablet 2.5 mg PO BID Qty: 60 4RF metformin 500 mg tablet 1,000 mg PO BID 30 Days Qty: 120 0RF fesoterodine [Toviaz] 4 mg tablet extended release 24 hr 4 mg PO DAILY 14 Days Qty: 14 0RF furosemide 20 mg tablet 20 mg PO DAILY PRN (Reason: >90 SBP) Rx Instructions: ONLY TAKE IF SBP >90 acetaminophen 500 mg Tablet 1,000 mg PO Q6H PRN (Reason: Pain) finasteride 5 mg tablet 5 mg PO DAILY 90 Days Qty: 90 1RF tamsulosin 0.4 mg capsule 0.4 mg PO DAILY 90 Days Qty: 90 0RF Discontinued aspirin 81 mg tablet,chewable 81 mg PO DAILY Qty: 30 5RF metoprolol succinate 25 mg tablet extended release 24 hr 25 mg PO DAILY Qty: 30 5RF Rx Instructions: Stop Carvedilol. Start Metoprolol valsartan 40 mg tablet 20 mg PO BID Discharge Orders: Discharge Order (Routine); Ordered 11/21/23 Ordered By: Hitesh Torres Diet: Advance to usual diet Activity on Discharge: As tolerated Stand Alone Forms: Patient Portal Discharge page Print Language: Macedonian Care Plan Goals: recovery Health Concerns: chf Plan of Treatment: med changes as noted, follow up with cardiology Assessment: see above
--- NOTE | 2023-11-21 10:52 | MHC.CM.PN ---
Addendum entered by Leah Dolan 11/21/23 10:58: Patient will resume [facility] (not home self care); MD aware and [facility] has been made aware of today's dc. Original Note: Patient has been medically cleared for dc to home today, self care. CM met with Patient at bedside and addressed IMM with him, providing Patient with the original and a copy has been placed on the chart. Patient expressed his wishes to speak with MD; MD is agreeable.CM will follow further as needed.
[2023-11-21 10:54] LABS: Glucose, Whole Blood 245 mg/dL (60-115)
[2023-11-21 10:55] VITALS: BP 98/62; PULSE 91; RESP 20; TEMP 36.7; O2SAT 96
== END 2023-11-21 11:38 | disposition home health service (06) | DRG 291 ==
LOC: HO.ED 16:10 → HO.EDOVER 17:10 → HO.IMC 23:34
PROVIDERS: Hospitalist; Nurse Practitioner Family; Admitting Provider Student in an Organized Health Care Education/Training Program; Emergency Provider Emergency Medicine; PCP Internal Medicine; Visit Provider Internal Medicine
DX: I11.0 Hypertensive heart disease with heart failure (principal); I50.23 Acute on chronic systolic (congestive) heart failure; I47.19 Other supraventricular tachycardia; D64.9 Anemia, unspecified; I34.0 Nonrheumatic mitral (valve) insufficiency; E87.6 Hypokalemia; T50.2X5A Adverse effect of carbonic-anhydrase inhibitors, benzothiadiazides and other diuretics, initial encounter; I25.5 Ischemic cardiomyopathy; I48.0 Paroxysmal atrial fibrillation; I95.9 Hypotension, unspecified; E78.5 Hyperlipidemia, unspecified; F10.20 Alcohol dependence, uncomplicated; I25.10 Atherosclerotic heart disease of native coronary artery without angina pectoris; R33.9 Retention of urine, unspecified; E11.9 Type 2 diabetes mellitus without complications; Z79.84 Long term (current) use of oral hypoglycemic drugs; Z79.899 Other long term (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
CPT/HCPCS: 36415; 71045; 80048; 80053; 80076; 82947; 83735; 83880; 84450; 84460; 84484; 85025; 85027; 85610; 92950; 93005; 97162; 99285; J0282; J0283; J1650; J1940; J3475; P9047

== ENCOUNTER → 2023-11-16 12:43 | Outpatient (BNV) | payer MEDICARE, OTHER, SELFPAY | PROVIDERS: Admitting Provider Student in an Organized Health Care Education/Training Program; Emergency Provider Emergency Medicine; Visit Provider Internal Medicine | DX: R94.31 Abnormal electrocardiogram [ECG] [EKG] (principal) | CPT/HCPCS: 93010 ==

== ENCOUNTER 2023-11-16 16:52 | Outpatient (BNV) | payer MEDICARE, OTHER, SELFPAY | END 2023-11-19 | PROVIDERS: Admitting Provider Student in an Organized Health Care Education/Training Program; Emergency Provider Emergency Medicine; Visit Provider Internal Medicine Cardiovascular Disease | DX: R94.31 Abnormal electrocardiogram [ECG] [EKG] (principal) | CPT/HCPCS: 93010 ==

== ENCOUNTER → 2023-11-16 16:52 | Outpatient (BNV) | payer MEDICARE, OTHER, SELFPAY | PROVIDERS: Admitting Provider Student in an Organized Health Care Education/Training Program; Emergency Provider Emergency Medicine; Visit Provider Internal Medicine | DX: I47.19 Other supraventricular tachycardia (principal); I50.43 Acute on chronic combined systolic (congestive) and diastolic (congestive) heart failure; I48.0 Paroxysmal atrial fibrillation | CPT/HCPCS: 99223; 99233 ==

== ENCOUNTER → 2023-11-16 16:52 | Outpatient (BNV) | payer MEDICARE, OTHER, SELFPAY | PROVIDERS: Admitting Provider Student in an Organized Health Care Education/Training Program; Emergency Provider Emergency Medicine; Visit Provider Student in an Organized Health Care Education/Training Program | DX: I50.43 Acute on chronic combined systolic (congestive) and diastolic (congestive) heart failure (principal); I48.0 Paroxysmal atrial fibrillation; I47.19 Other supraventricular tachycardia | CPT/HCPCS: 99223; 99232; 99233; 99239 ==

== ENCOUNTER 2023-11-25 11:50 | Outpatient (REF) | payer MEDICARE, OTHER, SELFPAY ==
[2023-11-25 16:15] LABS: Appearance Urine Turbid; Color Urine Yellow; Glucose Urine UA 250 mg/dL (Negative); Leukocyte Esterase Urine Large (3+) (Negative); Nitrite Urine Negative (Negative); PH 5.5 (5.0-9.0); Specific Gravity - Urine 1.025 (1.005-1.025); UMIC TRIGGER UACC YES; Urine Blood Large (3+) (Negative); Urine Ketones Negative (Negative); Urine Protein 100 (2+) mg/dL (Neg-Trace)
[2023-11-25 16:52] LABS: Bacteria Urine None Seen (None Seen); RBC Urine >20 /HPF (0-2); UACC Culture Trigger YES; WBC Urine >50 /HPF (0-5)
== END 2023-11-25 11:51 | disposition home or self-care (01) ==
LOC: HO.HVNA 11:50
PROVIDERS: PCP Internal Medicine; Visit Provider Urology
DX: N39.490 Overflow incontinence (principal); R33.9 Retention of urine, unspecified; R68.89 Other general symptoms and signs
CPT/HCPCS: 81001; 87086; 87088

== ENCOUNTER 2023-12-05 13:41 | Outpatient (REF) | payer MEDICARE, OTHER, SELFPAY ==
[2023-12-05 14:03] LABS: Prothrombin Time 71.4 SEC (11.1-13.3)
[2023-12-05 14:10] LABS: INTERNATIONAL NORM RATIO 5.9 (0.9-1.1)
== END 2023-12-05 13:42 | disposition home or self-care (01) ==
LOC: HO.HVNA 13:41
PROVIDERS: Visit Provider Internal Medicine Cardiovascular Disease
DX: I48.91 Unspecified atrial fibrillation (principal)
CPT/HCPCS: 36415; 85610

== ENCOUNTER → 2023-12-09 09:54 | Outpatient (REF) | payer MEDICARE, OTHER, SELFPAY ==
--- NOTE | 2023-12-09 09:58 | CA_ITS ---
Transthoracic Echocardiogram Patient (Last, First, Middle): Jeet Mena J Gender: Male Date of : 1935 Age: 88 Procedure Date: 12/09/2023 Procedure Type: Transthoracic Echocardiogram Location: OP Height: 182. cm Weight: 78.47 kg BSA: 2.00 m2 Heart Rate: 77 bpm BP: 95 / 50 mmHg Plastic Bubble Packer: JÚNIOR Referring MD: Yosef Cuello MD Symptoms: I42.9 - Cardiomyopathy, unspecified Study Quality: Fair w/Contrast, Limited by order ECG Rhythm: Sinus Conclusions: - The left ventricular systolic function is severely decreased. The visually estimated ejection fraction is between 15-20%. - The apex, apical septum, and mid inferoseptal segments are akinetic. Findings Procedure Information Contrast agent, definity, is being given per protocol without apparent complications. Left Ventricle Normal left ventricular cavity size. The left ventricular systolic function is severely decreased. The visually estimated ejection fraction is between 15-20%. There is severe global hypokinesis. Wall Motion Rest Echo Findings The apex, apical septum, and mid inferoseptal segments are akinetic. Venous The inferior vena cava is normal in size and collapses greater than 50% with inspiration. Prior Study Comparison No significant change compared to prior study dated: 09/19/2023. Measurements 2D Linear Measurements IVSd: 0.64 0.6-0.9/0.6-1.0 cm LVIDd: 5.40 3.9-5.3/4.2-5.9 cm LVIDd Index: 2.70 2.4-3.2/2.2-3.1 cm/m2 LVIDs: 5.07 2.0-3.6 cm LVPWd: 0.77 0.7-1.1 cm LA Diam: 4.00 2.7-3.8/3.0-4.0 cm LAIDs Index: 2.00 1.5-2.3 cm/m2 LV Mass: 164.40 67-162/88-224 g LV Mass Index: 82.20 43-95/49-115 g/m2 LVOT Diam: 2.10 3.0+(-)1.3 cm 2D Systolic Function EF 4C: 30.40 >55% EF 2C: 17.60 >55% EF BiP: 23.30 >55% LVOT LVOT Pk Yunior: 0.75 LVOT Mn Yunior: 0.54 LVOT VTI: 0.15 LVOT Pk Grad: 2.00 LVOT Mn Grad: 1.00 LVOT Diam: 2.10 LVOT Area: 3.46 Updated in Other Vendor System with Status of Final Colten Valentine MD electronically signed on 12/09/2023 2:36:57 PM with status of Final
== END ==
LOC: HO.CARD 09:54
PROVIDERS: Visit Provider Internal Medicine Cardiovascular Disease
DX: I42.9 Cardiomyopathy, unspecified (principal); I25.5 Ischemic cardiomyopathy
CPT/HCPCS: 93308; Q9957

== ENCOUNTER → 2023-12-09 09:58 | Outpatient (BNV) | payer MEDICARE, OTHER, SELFPAY | PROVIDERS: Visit Provider Internal Medicine | DX: I42.9 Cardiomyopathy, unspecified (principal); R93.1 Abnormal findings on diagnostic imaging of heart and coronary circulation | CPT/HCPCS: 93308 ==

== ENCOUNTER → 2023-12-11 12:52 | Outpatient (BNVA) | payer MEDICARE, OTHER, SELFPAY | PROVIDERS: Visit Provider Urology ==

== ENCOUNTER 2023-12-13 13:00 | Outpatient (AMB) | payer MEDICARE, OTHER, SELFPAY ==
--- NOTE | 2023-12-13 13:20 | A.OFFVIS_ITS ---
Intake Visit Reasons: SPT change 1st Allergies No Known Allergies [No Known Allergies*] Allergy (Verified 11/16/23 12:36) HPI Comments Details: Jeet is a pleasant male. He has a patient of Dr. Wilson. He has seen for the following urologic conditions. - lower urinary tract symptoms - urinary retention Here for change of suprapubic tube Upgrade to 18 [place] Islander gold catheter Patient is homebound Has VNA already They can switch catheter every 4 weeks 11/12 SPT placement Recommend Betadine ointment to catheter daily Has small skin breakdown on upper left rectal cheek Suggest Desitin b.i.d. Lower urinary tract symptoms of the urinary retention Background diabetes and ETOH abuse Initial presentation to emergency room 09/09/2023. Unable to void. Catheter placed. Has had multiple episodes. Found to have UTI initial office visit with 1000 cc in bladder PFSH Medical History Acute exacerbation of CHF (congestive heart failure) HFrEF (heart failure with reduced ejection fraction) Hyperlipidemia Alcohol abuse Diabetes mellitus Hypertension Surgical History History of cardiac cath History of hernia repair Family History Father Liver problem Mother Past heart attack Brother Cancer Sister Cancer Social History Household Members: Family Housing: House Do you presently have visiting nurse or other home services: Yes (VNA & Grandson helps with care.) Unable to assess alcohol history related to: Unknown Alcohol intake: never Patient Tobacco Use Status: Never used Tobacco e-Cigarette/Vaping Use: Never Used Second Hand Smoke Exposure: No service: Yes Current occupational status: retired Cognitive needs: No Hearing needs: No Vision needs: Yes (reading glasses) Review of Systems Const Denies chills and Denies fever(s) Card Reports no additional complaints and Denies syncope Resp Denies cough GI Denies abdominal pain and Denies heartburn Reports as per HPI and Denies change in libido Neuro Denies syncope Psych Denies change in libido Endo Denies change in libido Physical Exam Const General: cooperative, healthy appearing, comfortable and no acute distress Orientation/consciousness: patient oriented x3 HEENT Face and sinus: Yes normal facial exam Mouth: moist mucous membranes Neck Neck: Yes normal visual inspection, Yes full ROM and Yes trachea midline Chest Chest palpation & inspection: normal inspection of the chest Resp Effort & Inspection: normal respiratory effort, able to speak in complete sentences and no respiratory distress GI Inspection: Yes normal to inspection Back/Spine/Pelvis Cervical Spine: normal cervical lordosis Thoracic/Lumbar Spine: thoracic and lumbar spine normal to inspection Skin General skin exam: no rashes or lesions noted Neuro General: patient oriented x3, gait normal, tone normal and moves all extremities Extrem General: Yes normal to inspection and Yes capillary refill normal Office Procedures Bladder/Catheter Procedure Details: Convert to 18 [place] Islander Kellogg catheter Sterile technique 49871-[id number] of bladder tube Procedure code (CPT) selection complete Assessment & Plan Assessment & Plan (1) Urinary retention: Code(s): R33.9 - Retention of urine, unspecified Category: Medical Plan Six-month follow-up VNA to change catheter Patient Instructions: Imaging studies, laboratory and physical exam results were discussed and reviewed in detail. No major barriers to patient understanding were identified. An opportunity to ask questions regarding the treatment plan was provided. All questions were answered. The patient expressed understanding and agreement with the above treatment plan. The patient is aware they should contact our office by phone for worsening of their current condition or the appearance of new urologic symptoms. Compliance is encouraged with any medications and followup testing that is ordered. It is a privilege to participate in the urologic care of your patient. If you have any questions or concerns regarding treatment for the above conditions, or other urologic issues, please do not hesitate to contact me. The office telephone contact is [phone]. This note is constructed using voice recognition software. While every effort has been made to ensure accuracy overlock collar setter errors may have been included. Yours sincerely, Dr Guillaume Lea MD, [facility]rology Providers of Expert, Compassionate Care for the Genitourinary System Coding Level of Care Code Est Pt Level 3 (97255) Diagnoses Urinary retention R33.9 CPT Codes Bladder/Catheter Procedure - CPT: 13841-[id number] of bladder tube ([id number])
== END 2023-12-13 14:09 | disposition home or self-care (01) ==
LOC: HO.HUSH 13:00
PROVIDERS: Visit Provider Urology
DX: R33.9 Retention of urine, unspecified (principal); Z46.6 Encounter for fitting and adjustment of urinary device
CPT/HCPCS: 51705; 99213

== ENCOUNTER → 2023-12-13 13:00 | Outpatient (BNVA) | payer MEDICARE, OTHER, SELFPAY | PROVIDERS: Visit Provider Urology | DX: R33.9 Retention of urine, unspecified (principal) | CPT/HCPCS: 51705; 99212 ==

== ENCOUNTER 2023-12-16 14:22 | Outpatient (AMB) | payer MEDICARE, OTHER, SELFPAY ==
--- NOTE | 2023-12-16 14:29 | MHC.OFFVIS ---
Vital Signs 12/16/23 14:31 Height 6 ft Weight 152 lb 8.958 oz BMI 20.7 BP 96/62 Blood Pressure Location Lt brachial Position Sitting Pulse 77 Intake Visit Reasons: 6 wk f/up lozano echo/ labs Intake Note: 6 week follow-up with ekg hearts doing ok Community Organization Director Required: No Allergies No Known Allergies [No Known Allergies*] Allergy (Verified 11/16/23 12:36) Medication List - Last Reconciled 12/16/23 by Yosef Cuello MD acetaminophen 1,000 mg PO Q6H PRN amiodarone 200 mg PO DAILY atorvastatin 40 mg PO BEDTIME blood sugar diagnostic (FreeStyle Lite Strips) to check blood sugars once a day blood-glucose meter (FreeStyle Lite Meter kit) USE DIRECTED blood-glucose meter (Accu-Chek Guide Glucose Meter) As directed fesoterodine ER (Toviaz) 4 mg PO DAILY 14 days finasteride 5 mg PO DAILY 90 days fluconazole 150 mg PO Q3D 2 doses furosemide 20 mg PO DAILY PRN glyburide 2.5 mg PO BID metformin 1,000 mg (2 x 500 mg) PO BID 30 days spironolactone 25 mg See Protocol PO DAILY tamsulosin 0.4 mg PO DAILY 90 days warfarin 3 mg PO DAILY HPI Comments Details: Ed comes for follow-up. He said he has symptoms of fatigue and tiredness with exertion. He has had multiple hospitalization recently that can contribute to this due to physical conditioning. He said he can not walk without a walker due to decreased strength in his legs. He denies any leg swelling, orthopnea, PND, worsening shortness of breath. No lightheadedness, syncope. No prolonged palpitation irregular heartbeat. Does not know his medications regularly and as listed he takes Lasix 20 mg daily although he is not entirely sure if he takes a p.r.n. basis. He is on amiodarone now due to development of atrial arrhythmias with atrial tachycardia and atrial fibrillation. Also on warfarin therapy. Has not been able to tolerate alternative neurohormonal modulation due to low blood pressure. Denies any lightheadedness, syncope. [facility] Medical History (Updated 12/16/23 @ 15:01 by Yosef Cuello MD) CAD (coronary artery disease) HFrEF (heart failure with reduced ejection fraction) Acute exacerbation of CHF (congestive heart failure) Hyperlipidemia Alcohol abuse Diabetes mellitus Hypertension Surgical History (Updated 12/16/23 @ 15:01 by Yosef Cuello MD) History of cardiac cath History of hernia repair Family History Father Liver problem Mother Past heart attack Brother Cancer Sister Cancer Social History Household Members: Family Housing: House Do you presently have visiting nurse or other home services: Yes (VNA & Grandson helps with care.) Unable to assess alcohol history related to: Unknown Alcohol intake: never Patient Tobacco Use Status: Never used Tobacco e-Cigarette/Vaping Use: Never Used Second Hand Smoke Exposure: No service: Yes Current occupational status: retired Cognitive needs: No Hearing needs: No Vision needs: Yes (reading glasses) Review of Systems Const Denies chills, Denies fatigue, Denies fever(s), Denies frequent falls, Denies weakness, Denies weight gain and Denies weight loss ENT Denies dizziness Card Denies chest pain, Denies leg edema, Denies lightheadedness, Denies palpitations, Denies dyspnea, Denies dyspnea on exertion, Denies orthopnea and Denies other (loss of consciousness) Resp Denies cough, Denies dyspnea and Denies dyspnea on exertion GI Denies hematochezia and Denies change in stool character Musc Denies abnormal gait, Denies muscle weakness, Denies numbness, Denies radiating pain into limb and Denies tingling Neuro Denies abnormal gait, Denies dizziness, Denies frequent falls, Denies numbness, Denies tingling and Denies weakness Endo Denies fatigue and Denies palpitations Physical Exam Vital Signs: Last Vital Signs Pulse 77 12/16/23 14:31 BP 96/62 12/16/23 14:31 BMI result Body Mass Index 20.7 Const General: cooperative, healthy appearing, comfortable and no acute distress Nutritional Appearance: other (Frail elderly man) Orientation/consciousness: patient oriented x3 Limitations: ambulation with walker Neck Neck: Yes normal visual inspection and Yes no JVD Resp Effort & Inspection: normal respiratory effort Auscultation: clear to auscultation bilaterally, no crackles, no rales, no rhonchi and no wheezes Cardio Jugular venous distension: no JVD Palpation: abnormal PMI displaced PMI Rate: regular rate Rhythm: regular rhythm Heart sounds: S1 normal heart sound present, S2 normal heart sound present, no murmurs and no rubs Neuro General: patient oriented x3 Extrem Other: right radial pulse easily palpable, right hand assessment normal. General: Yes normal to inspection, No no pedal edema and No calf tenderness Psych Appearance: grossly normal Mental Status: mental status grossly normal Speech and movement: Normal speech and movement present Office Procedures EKG Details: EKG shows normal sinus rhythm with left axis deviation with IV CD with poor R-wave progression with septal infarct [id number], Complete Assessment & Plan Assessment & Plan (1) PAF (paroxysmal atrial fibrillation): Code(s): I48.0 - Paroxysmal atrial fibrillation Category: Medical Plan: Paroxysmal atrial fibrillation which has remained suppressed on amiodarone therapy. Has done well with it. Continue to pursue rhythm control approach. Currently on warfarin therapy for anticoagulation. Continue the same. Target INR between 2 and 3 being followed followed by [facility]. Will follow-up in 3 months time. 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 Clinically euvolemic and well compensated. Overall significant symptoms of fatigue which I think his both related to LV systolic dysfunction as well as deconditioning. Encouraged to participate in physical activity. Will refer him to phase 2 cardiac rehabilitation. Continue current rhythm control approach. Currently on spironolactone for neurohormonal modulation. Can not tolerate other medications. Currently on low-dose diuretic therapy. Heart failure management discussed. 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 No indication for revascularization. Continue aggressive risk factor modification. Currently on warfarin therapy. Would avoid aspirin therapy to reduce bleeding risk. Continue high-intensity statin therapy. Continue aggressive control of diabetes goal hemoglobin A1c less than 7%. Will follow up in the clinic in 3 months time, sooner p.r.n.. Thank you for allowing me to partake in his care Orders: Orders Cardiac Rehab 12/16/23 Yosef Cuello MD I50.22 - Chronic systolic (congestive) heart failure Medications: Changed From amiodarone 400mg bid for 10 more days, then decrease to 200mg daily 111 tabs 0RF To amiodarone 200 mg PO DAILY Hitesh Torres MD Coding Level of Care Code Est Pt Level 4 (68967) Diagnoses PAF (paroxysmal atrial fibrillation) I48.0 Chronic HFrEF (heart failure with reduced ejection fraction) I50.22 CAD (coronary artery disease) I25.10 CPT Codes EKG - CPT: 01028-[id number], Complete ([id number])
[2023-12-16 14:31] VITALS: BP 96/62; PULSE 77; BMI 20.7
== END 2023-12-16 15:04 | disposition home or self-care (01) ==
PROVIDERS: PCP Internal Medicine; Visit Provider Internal Medicine Cardiovascular Disease
DX: I48.0 Paroxysmal atrial fibrillation (principal); I50.22 Chronic systolic (congestive) heart failure; I25.10 Atherosclerotic heart disease of native coronary artery without angina pectoris
CPT/HCPCS: 93010; 99214

== ENCOUNTER → 2023-12-16 14:22 | Outpatient (BNVA) | payer MEDICARE, OTHER, SELFPAY | PROVIDERS: PCP Internal Medicine; Visit Provider Internal Medicine Cardiovascular Disease | DX: I45.4 Nonspecific intraventricular block (principal); I25.10 Atherosclerotic heart disease of native coronary artery without angina pectoris; I11.0 Hypertensive heart disease with heart failure; I50.22 Chronic systolic (congestive) heart failure; I48.0 Paroxysmal atrial fibrillation | CPT/HCPCS: 93005; 99212 ==

== ENCOUNTER 2023-12-27 11:33 | Outpatient (REF) | payer MEDICARE, OTHER, SELFPAY ==
[2023-12-27 11:49] LABS: Appearance Urine Turbid; Color Urine Yellow; Glucose Urine UA Negative (Negative); Leukocyte Esterase Urine Large (3+) (Negative); Nitrite Urine Negative (Negative); PH 5.5 (5.0-9.0); Specific Gravity - Urine 1.015 (1.005-1.025); UMIC TRIGGER UA YES; Urine Blood Moderate (2+) (Negative); Urine Ketones Negative (Negative); Urine Protein 100 (2+) mg/dL (Neg-Trace)
[2023-12-27 12:13] LABS: Bacteria Urine 4+ (None Seen); Squamous Epithelial Cell Urine 0-2 /HPF (0-2); WBC Urine >50 /HPF (0-5)
== END 2023-12-27 11:34 | disposition home or self-care (01) ==
LOC: HO.HVNA 11:33
PROVIDERS: Visit Provider Urology
DX: R31.9 Hematuria, unspecified (principal)
CPT/HCPCS: 81001; 87086; 87186

== ENCOUNTER 2024-01-07 13:45 | Outpatient (AMB) | payer MEDICARE, OTHER, SELFPAY ==
--- NOTE | 2024-01-07 14:01 | MHC.OFFVISCO ---
Intake Intake Visit Reasons: Anticoagulation Magneto Repairer Required: No Allergies No Known Allergies [No Known Allergies*] Allergy (Verified 01/07/24 14:53) Medication List - Last Reconciled 01/07/24 by Yolanda Antonio RN acetaminophen 1,000 mg PO Q6H PRN amiodarone 200 mg PO DAILY atorvastatin 40 mg PO BEDTIME blood sugar diagnostic (FreeStyle Lite Strips) to check blood sugars once a day blood-glucose meter (FreeStyle Lite Meter kit) USE DIRECTED blood-glucose meter (Accu-Chek Guide Glucose Meter) As directed finasteride 5 mg PO DAILY 90 days furosemide 20 mg PO DAILY PRN metformin 1,000 mg (2 x 500 mg) PO BID 30 days spironolactone 25 mg See Protocol PO DAILY tamsulosin 0.4 mg PO DAILY 90 days warfarin 3 mg PO DAILY Nursing Note INR: 2.2- in therapeutic range of 2-3 Medications and supplements reviewed- pt unable to state medications VNA nurse Natalie LUCAS called and med list reviewed. she verified warfarin pill strength and current dosing. she states pt last INR was 12/31/23 which was 2.3. prev INR 12/24/23- 3.2 and warfarin was held No changes in health, diet, medications, or supplements, Denies any signs and symptoms of bleeding or bruising or clotting. Bleeding, bruising, clotting discussed Nutritional guidance given - food list provided and reviewed with pt and grandson pt appetite decreased, takes ensure one bottle daily- consistency enc with this Dose: 3mg x 7 F/U INR: 1 week Patient and grandson verbalizes understanding of instructions given pt to acs in wheelchair, acompanied by grandsanna Robin who lives with him. Sharda states pt on warfarin for approx 5 weeks, INR done by VNA weekly Educational material provided to pt and grandson. PMH reviewed. Per VNA nurse Natalie, pt no longer on glyburide toviaz or fluconazole or bactim. pt has suprapubic catheter, had UTI and was on Bactim last week. pt and grandson aware to call acs with any changes or any new medications. 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 Illness/Depression: No Surgeries: pilonidal cyst, suprapubic cath, hernia Anti-Coag. Education Record Teaching Recipient: Family and Primary Caregiver (kory robin) What is the easiest way to learn: Listening, Demonstration and Education Packet Barriers to Learning Identified: Cognitive (short term memory issues) and Physical (wheelchair) Physical: Memory (short term memory) Significant other who can be involved in Teaching Process when Indicated: sharda [phone] If Barriers are identified, describe method to overcome: utilize w/c for acs appt as well as cloth hand, pt has vna nurse Miles lucas Magneto Repairer Required: No Readiness To Learn: Good Teaching Methods: Demonstration, Discussion and Handout Response to Teaching: Reinforcement Needed Re-Education needs: Reinforce Content, Re-Teach and Needs Practice Education Intervention/Brief Description of Teaching 1. Able to state reason for taking Warfarin: Yes 2. Able to state Pain Management techniques: Yes 3. Able to state action of Warfarin.: Yes Able to state current dose, pill color, how and when Warfarin to be taken: Yes Able to identify signs of bleeding &/or clotting: Yes 4. Able to identify need to keep diet consistent in regard to vitamin K intake: Yes Able to state restriction on alcohol: Yes 5. Able to state need for compliance with PT/INR testing: Yes Describes rationale for carrying ID and wearing Medic Alert bracelet: Yes Patient instructed to monitor for excess bruising or signs/symptoms of clotting or bleeding: Yes 6. Able to state that there are drugs that interact with Warfin: Yes 7. Able to state the need to seek medical attention when illness/injury occur.: Yes Describes the need to avoid activities with high risk of injury: Yes 8. Able to state duration of treatment: Yes 9. Demonstrates understanding of notifying all providers of pending dental surgical, or other invasive procedures: Yes 10. Able to state Home Care instructions Additional comments: pt has vna nurse Natalie from [facility] Questionnaires HAS-BLED Does the patient had uncontrolled Hypertension?: No Does the patient have renal disease?: Yes Does the patient have liver disease?: No Does the patient have a history of stroke?: No Has the patient had major bleeding or predisposition to bleeding?: Yes Does the patient have labile INRs?: Yes Is the patient over 65 years of age?: Yes Is the patient on medications that gives them a predisposition to bleeding?: Yes Does the patient use alcohol?: Yes HAS-BLED Score: 6 CHADSVASC Age: 75 or over Gender: Male Does the patient have a history of CHF?: Yes Does the patient have a history of Hypertension?: Yes Does the patient have a history of Stroke/TIA/Thromboembolism?: No Does the patient have a history of Vascular Disease (prior ND, PAD or aortic plaque)?: Yes Does the patient have a history of Diabetes?: Yes CHADS VACS Score: 6 Luan Prediction Score Rsk VTE Active Cancer: No Previous VTE, excluding superficial vein thrombosis: No Reduced mobility: Yes Already known Thrombophilic Condition: No With-in last month Trauma and/or Surgery: No Elderly 70 year or older: Yes Heart and/or Respiratory Failure: Yes Acute Myocardial infarction and/or Ischemic Stroke: No Acute Infection and/or Rheumatologic Disorder: No Obesity (BMI 30 or greater): No Ongoing Hormonal Treatment: No Score: 5 Luan Score less than 4; Low Risk of VTE Luan Score 4 or greater; High Risk of VTE Coding Level of Care Code New Patient Level 2 Diagnoses Current use of anticoagulant therapy Z79. Assessment & Plan Assessment & Plan (1) Current use of anticoagulant therapy: Code(s): Z79.01 - halfway (current) use of anticoagulants Orders: Orders AMB INR Today Z79.01 - buttermaker continuous churn (current) use of anticoagulants Medications: Discontinued sulfamethoxazole-trimethoprim 800-160 mg (Bactrim DS) Discontinued Reason: Patient Completed Course 1 tab PO BID 5 days 10 tabs 0RF N39.0 - Urinary tract infection, site not specified
[2024-01-07 14:29] LABS: Prothrombin Time Whole Bld POC 26.5 sec (11.1-13.5); ~PT, ~INR - Anti Coag Clinic 2.2 (0.9-1.1)
== END 2024-01-07 15:20 | disposition home or self-care (01) ==
LOC: HO.ACS 13:45
PROVIDERS: PCP Internal Medicine; Visit Provider Internal Medicine
DX: Z79.01 Long term (current) use of anticoagulants (principal)

== ENCOUNTER → 2024-01-07 13:45 | Outpatient (BNVA) | payer MEDICARE, OTHER, SELFPAY | PROVIDERS: PCP Internal Medicine; Visit Provider Internal Medicine | DX: I48.0 Paroxysmal atrial fibrillation (principal); Z79.01 Long term (current) use of anticoagulants; Z51.81 Encounter for therapeutic drug level monitoring | CPT/HCPCS: 85610; 99202 ==

== ENCOUNTER 2024-01-14 13:47 | Outpatient (AMB) | payer MEDICARE, OTHER, SELFPAY ==
--- NOTE | 2024-01-14 14:10 | MHC.OFFVISCO ---
Intake Intake Visit Reasons: Anticoagulation Allergies No Known Allergies [No Known Allergies*] Allergy (Verified 01/14/24 14:04) Medication List - Last Reconciled 01/14/24 by Yolanda Antonio RN acetaminophen 1,000 mg PO Q6H PRN amiodarone 200 mg PO DAILY atorvastatin 40 mg PO BEDTIME blood sugar diagnostic (FreeStyle Lite Strips) to check blood sugars once a day blood-glucose meter (FreeStyle Lite Meter kit) USE DIRECTED blood-glucose meter (Accu-Chek Guide Glucose Meter) As directed finasteride 5 mg PO DAILY 90 days furosemide 20 mg PO DAILY PRN metformin 1,000 mg (2 x 500 mg) PO BID 30 days spironolactone 25 mg See Protocol PO DAILY tamsulosin 0.4 mg PO DAILY 90 days warfarin 3 mg See Protocol PO DAILY Nursing Note INR 1.3-? out of therapeutic range 2-3 pt states missed a dose of warfarin on saturday Medications and supplements reviewed Patient status: pt to acs in w/c acompanied by kory Champagne Medications or supplements: no changes Diet: same, ensure one bottle daily Denies any signs and symptoms of bleeding or clotting or unusual bruising Bleeding, bruising, clotting discussed Nutritional guidance given: no greens for 2 days, eat reds to raise Dose: 4.5mg today and tomm then cont prev dosing 3mg x 7 F/U INR Date : saturday01/17/24?? Patient and grandson verbalizing understanding of instructions given. pt grandson states pt may go on eliquis - they have zoom call on thur. made aware inr must be 2.0 or less to start. composed note to cardiology t/c placed to pcp dr young to resport low inr dosing and f/u appt. spoke to sean/winifred at 1450. aware of missed dose t/c to vna nurse camacho to request inr check on saturday01/17/24, v/m left-awaiting call backgurmeet aware Anti-Coag Initial Assessment Social Hx Patient Tobacco Use Status: Former Tobacco user Tobacco use type: Cigarette (quit 57 years ago) alcohol intake: current Alcohol intake frequency: holidays/special occasions only Cardiovascular Hx: HTN, CAD, Arrhythmias, Cardiomyopathy and Other Endocrine Hx: Diabetes Musculoskeletal Hx: Arthritis Blood Disorder Hx: Hyperlipidemia GI Hx: Other (blood/clots in catheter) Hx: Bladder Disorders (urinary retention) and Other (suprapubic catheter) Cancer HX: No Psych. Illness/Depression: No Coding Level of Care Code Est Patient Level 1 Diagnoses Current use of anticoagulant therapy Z79.01 Assessment & Plan Assessment & Plan (1) Current use of anticoagulant therapy: Code(s): Z79.01 - alf (current) use of anticoagulants Category: Medical
[2024-01-14 14:11] LABS: Prothrombin Time Whole Bld POC 15.9 sec (11.1-13.5); ~PT, ~INR - Anti Coag Clinic 1.3 (0.9-1.1)
== END 2024-01-14 15:04 | disposition home or self-care (01) ==
LOC: HO.ACS 13:47
PROVIDERS: PCP Internal Medicine; Visit Provider Internal Medicine
DX: Z79.01 Long term (current) use of anticoagulants (principal)

== ENCOUNTER → 2024-01-14 13:47 | Outpatient (BNVA) | payer MEDICARE, OTHER, SELFPAY | PROVIDERS: PCP Internal Medicine; Visit Provider Internal Medicine | DX: I48.0 Paroxysmal atrial fibrillation (principal); Z79.01 Long term (current) use of anticoagulants; Z51.81 Encounter for therapeutic drug level monitoring | CPT/HCPCS: 85610; 99211 ==

== ENCOUNTER → 2024-01-17 14:57 | Outpatient (BNVA) | payer MEDICARE, OTHER, SELFPAY | PROVIDERS: PCP Internal Medicine; Visit Provider Internal Medicine ==

== ENCOUNTER → 2024-01-21 13:38 | Outpatient (BNVA) | payer MEDICARE, OTHER, SELFPAY | PROVIDERS: PCP Internal Medicine; Visit Provider Internal Medicine ==

== ENCOUNTER → 2024-01-24 11:18 | Outpatient (BNVA) | payer MEDICARE, OTHER, SELFPAY | PROVIDERS: PCP Internal Medicine; Visit Provider Internal Medicine ==

== ENCOUNTER → 2024-01-27 15:34 | Outpatient (BNVA) | payer MEDICARE, OTHER, SELFPAY | PROVIDERS: PCP Internal Medicine; Visit Provider Internal Medicine ==

== ENCOUNTER → 2024-02-04 11:55 | Outpatient (BNVA) | payer MEDICARE, OTHER, SELFPAY | PROVIDERS: PCP Internal Medicine; Visit Provider Internal Medicine ==

== ENCOUNTER → 2024-02-11 08:58 | Outpatient (BNVA) | payer MEDICARE, OTHER, SELFPAY | PROVIDERS: PCP Internal Medicine; Visit Provider Internal Medicine ==

== ENCOUNTER 2024-02-28 11:17 | Outpatient (AMB) | payer MEDICARE, OTHER, SELFPAY ==
[2024-02-28 11:19] VITALS: BP 112/52; PULSE 90; O2SAT 97; BMI 21.6
--- NOTE | 2024-02-28 11:19 | MHC.PC.OV ---
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 Required: No Accompanied by: Self / Same As Patient Allergies No Known Allergies [No Known Allergies*] Allergy (Verified 02/28/24 11:19) Medication List - Last Reconciled 03/02/24 by Dimitri Wilson MD acetaminophen 1,000 mg PO Q6H PRN amiodarone 200 mg PO DAILY 90 days apixaban (Eliquis) 5 mg PO BID atorvastatin 40 mg PO BEDTIME blood sugar diagnostic (FreeStyle Lite Strips) to check blood sugars once a day blood-glucose meter (FreeStyle Lite Meter kit) USE DIRECTED blood-glucose meter (Accu-Chek Guide Glucose Meter) As directed finasteride 5 mg PO DAILY 90 days furosemide 20 mg PO DAILY PRN glyburide 2.5 mg PO BID metformin 1,000 mg (2 x 500 mg) PO BID 30 days metoprolol succinate ER 25 mg PO DAILY spironolactone 25 mg See Protocol PO DAILY tamsulosin 0.4 mg PO DAILY 90 days warfarin 3 mg See Protocol PO DAILY Tobacco use date assessed: 05/20/23 Fall risk assessment: 1 Fall in past year Last assessed Fall Risk: 02/28/24 Dental Screening Dental Screen Date: 08/19/23 HPI follow up HPI Details CHF; sees cardiolgy; chronic STEVENSON but no chest pain PFSH Medical History (Updated 01/07/24 @ 14:30 by Yolanda Antonio RN) CAD (coronary artery disease) HFrEF (heart failure with reduced ejection fraction) Acute exacerbation of CHF (congestive heart failure) Hyperlipidemia Alcohol abuse Diabetes mellitus Hypertension Surgical History (Updated 12/16/23 @ 15:01 by Yosef Cuello MD) History of cardiac cath History of hernia repair Family History Father Liver problem Mother Past heart attack Brother Cancer Sister Cancer Social History Household Members: Family Housing: House Do you presently have visiting nurse or other home services: Yes (VNA & Grandson helps with care.) Unable to assess alcohol history related to: Unknown Alcohol intake: current Alcohol intake frequency: holidays/special occasions only Alcohol type: beer Patient Tobacco Use Status: Former Tobacco user Tobacco use type: Cigarette (quit 57 years ago) e-Cigarette/Vaping Use: Never Used Second Hand Smoke Exposure: No service: Yes Current occupational status: retired Current occupation: retired [employer] Current occupational exposures/hazards: No Cognitive needs: No Hearing needs: No Vision needs: Yes (reading glasses) Questionnaire Thrive Questionnaire Date Thrive assessed: 11/17/23 NEEL-7 AMB Questionnaire NEEL-7 Date NEEL - 7 assessed: 05/20/23 Source: Developed by Drs. Jeffrey Taylor, Marianne Russo, Radames Marino and colleagues, with an educational puja from [employer]. Review of Systems Const Denies chills, Denies headache(s) and Denies weight loss ENT Denies headache(s) Card Denies chest pain, Denies syncope and Denies irregular heart rhythm Resp Denies chest congestion and Denies cough GI Denies abdominal pain, Denies change in stool character, Denies nausea and Denies vomiting Musc Denies deformity and Denies joint swelling Neuro Denies syncope and Denies headache(s) Physical exam (Primary Care) Vital Signs: Last Vital Signs Pulse 90 02/28/24 11:19 BP 112/52 L 02/28/24 11:19 Pulse Ox 97 02/28/24 11:19 Oxygen Delivery Method Room Air 02/28/24 11:19 BMI result Body Mass Index 21.6 Tobacco/Smoking Status: Tobacco use Status Tobacco use date assessed 05/20/23 02/28/24 11:22 Patient Tobacco Use Status Former Tobacco user 02/28/24 11:22 Tobacco use type Cigarette (quit 57 years ago 02/28/24 11:22 ) e-Cigarette/Vaping Use Never Used 02/28/24 11:22 Thrive Assessment: Date of Thrive Assessment Date Thrive assessed 11/17/23 02/28/24 11:22 Const General: cooperative, comfortable, no acute distress and alert Neck Neck: Yes no lymphadenopathy Thyroid: Thyroid normal Resp Effort & Inspection: normal respiratory effort Auscultation: clear to auscultation bilaterally Percussion: percussion normal Cardio Jugular venous distension: no JVD Palpation: normal PMI Rate: regular rate Rhythm: regular rhythm Heart sounds: S1 normal heart sound present and S2 normal heart sound present GI Inspection: Yes normal to inspection Palpation (GI): No hepatosplenomegaly present Skin General skin exam: no rashes or lesions noted Extrem General: Yes no clubbing, cyanosis or edema Coding Level of Care Code Est Pt Level 3 (30100) Diagnoses Ischemic cardiomyopathy I25.5 Assessment & Plan Assessment & Plan (1) Ischemic cardiomyopathy: Code(s): I25.5 - Ischemic cardiomyopathy Category: Medical Plan: stable; same rx; per cardiology Orders: Orders Comprehensive [place]. Panel Fast 02/28/24 Z13.9 - Encounter for screening, unspecified Complete Blood Count Auto Diff 02/28/24 Z13.0 - Encounter for screening for diseases of the blood and blood-forming organs and certain disorders involving the immune mechanism Microalbumin, Random (w Creat) 02/28/24 E11.69 - Type 2 diabetes mellitus with other specified complication, E66.01 - Morbid (severe) obesity due to excess calories Thyroid Stimulating Hormone 02/28/24 Z13.29 - Encounter for screening for other suspected endocrine disorder
== END 2024-02-28 11:36 | disposition home or self-care (01) ==
PROVIDERS: PCP Internal Medicine; Visit Provider Internal Medicine
DX: I25.5 Ischemic cardiomyopathy (principal)

== ENCOUNTER → 2024-02-28 11:17 | Outpatient (BNVA) | payer MEDICARE, OTHER, SELFPAY | PROVIDERS: PCP Internal Medicine; Visit Provider Internal Medicine | DX: I25.5 Ischemic cardiomyopathy (principal) | CPT/HCPCS: 99212 ==

== ENCOUNTER 2024-03-16 13:32 | Outpatient (AMB) | payer MEDICARE, OTHER, SELFPAY ==
--- NOTE | 2024-03-16 13:36 | MHC.OFFVIS ---
Vital Signs 03/16/24 13:38 Height 6 ft Weight 175 lb 0.752 oz BMI 23.7 BP 90/42 L Blood Pressure Location Lt brachial Position Sitting Pulse 94 Pulse Source Pulse Oximeter Intake Visit Reasons: 3 mth fu Allergies No Known Allergies [No Known Allergies*] Allergy (Verified 02/28/24 11:19) Medication List - Last Reconciled 03/16/24 by Yosef Cuello MD acetaminophen 1,000 mg PO Q6H PRN amiodarone 200 mg PO DAILY 90 days apixaban (Eliquis) 5 mg PO BID atorvastatin 40 mg PO BEDTIME blood sugar diagnostic (FreeStyle Lite Strips) to check blood sugars once a day blood-glucose meter (FreeStyle Lite Meter kit) USE DIRECTED blood-glucose meter (Accu-Chek Guide Glucose Meter) As directed finasteride 5 mg PO DAILY 90 days furosemide 20 mg PO DAILY PRN glyburide 2.5 mg PO BID metformin 1,000 mg (2 x 500 mg) PO BID 30 days metoprolol succinate ER 25 mg PO DAILY spironolactone 25 mg See Protocol PO DAILY tamsulosin 0.4 mg PO DAILY 90 days HPI Comments Details: Jeet comes for follow-up. Unfortunately he is not very sure about his medications. However he said he is not having any significant issues from heart perspective. Denies any progressive heart failure symptoms. No orthopnea, PND, leg edema. Not sure about his diuretic regimen. His most bothered by his bladder catheter. No bleeding issues or neurologic events. No prolonged palpitation irregular heartbeat. No lightheadedness, syncope. No chest pain. [facility] Medical History CAD (coronary artery disease) HFrEF (heart failure with reduced ejection fraction) Acute exacerbation of CHF (congestive heart failure) Hyperlipidemia Alcohol abuse Diabetes mellitus Hypertension Surgical History History of cardiac cath History of hernia repair Family History Father Liver problem Mother Past heart attack Brother Cancer Sister Cancer Social History Household Members: Family Housing: House Do you presently have visiting nurse or other home services: Yes ([facility] & Grandson helps with care.) Unable to assess alcohol history related to: Unknown Alcohol intake: current Alcohol intake frequency: holidays/special occasions only Alcohol type: beer Patient Tobacco Use Status: Former Tobacco user Tobacco use type: Cigarette (quit 57 years ago) e-Cigarette/Vaping Use: Never Used Second Hand Smoke Exposure: No service: Yes Current occupational status: retired Current occupation: retired [employer] Current occupational exposures/hazards: No Cognitive needs: No Hearing needs: No Vision needs: Yes (reading glasses) Review of Systems Const Denies chills, Denies fatigue, Denies fever(s), Denies frequent falls, Denies weakness, Denies weight gain and Denies weight loss ENT Denies dizziness Card Denies chest pain, Denies leg edema, Denies lightheadedness, Denies palpitations, Denies dyspnea, Denies dyspnea on exertion, Denies orthopnea and Denies other (loss of consciousness) Resp Denies cough, Denies dyspnea and Denies dyspnea on exertion GI Denies hematochezia and Denies change in stool character Musc Denies abnormal gait, Denies muscle weakness, Denies numbness, Denies radiating pain into limb and Denies tingling Neuro Denies abnormal gait, Denies dizziness, Denies frequent falls, Denies numbness, Denies tingling and Denies weakness Endo Denies fatigue and Denies palpitations Physical Exam Vital Signs: Last Vital Signs Pulse 94 03/16/24 13:38 BP 90/42 L 03/16/24 13:38 BMI result Body Mass Index 23.7 Const General: cooperative, healthy appearing, comfortable and no acute distress Nutritional Appearance: other (Frail elderly man) Orientation/consciousness: patient oriented x3 Limitations: ambulation with walker Neck Neck: Yes normal visual inspection and Yes no JVD Resp Effort & Inspection: normal respiratory effort Auscultation: clear to auscultation bilaterally, no crackles, no rales, no rhonchi and no wheezes Cardio Jugular venous distension: no JVD Palpation: abnormal PMI displaced PMI Rate: regular rate Rhythm: regular rhythm Heart sounds: S1 normal heart sound present, S2 normal heart sound present, no murmurs and no rubs Neuro General: patient oriented x3 Extrem Other: right radial pulse easily palpable, right hand assessment normal. General: Yes normal to inspection, No no pedal edema and No calf tenderness Psych Appearance: grossly normal Mental Status: mental status grossly normal Speech and movement: Normal speech and movement present Office Procedures EKG Details: EKG shows normal sinus rhythm with left anterior fascicular block with nonspecific ST T wave changes most likely suggestive of repolarization abnormality or related to cardiomyopathy. [id number], Complete Assessment & Plan Assessment & Plan (1) Chronic HFrEF (heart failure with reduced ejection fraction): Code(s): I50.22 - Chronic systolic (congestive) heart failure Category: Medical Plan: Heart failure with reduced ejection fraction secondary to severe ischemic cardiomyopathy. Clinically euvolemic and well compensated. Can not tolerate much uptitration neurohormonal modulation due to low blood pressure. Continue current therapy with spironolactone as metoprolol. Continue current diuretic regimen. Daily weight monitoring avoidance of salt loading was discussed. Continue rhythm control approach. Management of heart failure were discussed but he said he is not very involved and relies on visiting nurse for his management. (2) PAF (paroxysmal atrial fibrillation): Code(s): I48.0 - Paroxysmal atrial fibrillation Category: Medical Plan: Paroxysmal atrial fibrillation without any obvious clinical recurrence at this point time. Currently on amiodarone therapy. Has derived significant benefit from heart failure perspective. Continue rhythm control approach. Continue amiodarone therapy. Follow-up in 6 months time. Continue full oral anticoagulation, says switch to apixaban therapy. Continue the same. Semi annual renal function test should be pursued. (3) CAD (coronary artery disease): Code(s): I25.10 - Atherosclerotic heart disease of [place] coronary artery without angina pectoris Category: Medical Plan: CAD, stable without any symptoms of angina. Continue oral anticoagulation therapy with Eliquis. Avoid aspirin therapy to reduce bleeding risk. Continue aggressive risk factor modification. Continue diabetes management goal hemoglobin A1c less than 7%. Continue full high-intensity statin therapy. Target goal LDL less than 70 mg/dL. Will follow up in the clinic in 6 months time, sooner p.r.n.. Thank you for allowing me to partake in his care Medications: Discontinued warfarin Discontinued Reason: Patient no longer taking 3 mg See Protocol PO DAILY 90 tabs 2RF Coding Level of Care Code Est Pt Level 4 (23582) Complex EM visit Add On G2211 Diagnoses Chronic HFrEF (heart failure with reduced ejection fraction) I50.22 PAF (paroxysmal atrial fibrillation) I48.0 CAD (coronary artery disease) I25.10 CPT Codes EKG - CPT: 45654-[id number], Complete ([id number])
[2024-03-16 13:38] VITALS: BP 90/42; PULSE 94; BMI 23.7
== END 2024-03-16 14:18 | disposition home or self-care (01) ==
PROVIDERS: PCP Internal Medicine; Visit Provider Internal Medicine Cardiovascular Disease
DX: I50.22 Chronic systolic (congestive) heart failure (principal); I48.0 Paroxysmal atrial fibrillation; I25.10 Atherosclerotic heart disease of native coronary artery without angina pectoris
CPT/HCPCS: 93010; 99214; G2211

== ENCOUNTER → 2024-03-16 13:32 | Outpatient (BNVA) | payer MEDICARE, OTHER, SELFPAY | PROVIDERS: PCP Internal Medicine; Visit Provider Internal Medicine Cardiovascular Disease | DX: I50.22 Chronic systolic (congestive) heart failure (principal); I48.0 Paroxysmal atrial fibrillation; I25.10 Atherosclerotic heart disease of native coronary artery without angina pectoris | CPT/HCPCS: 93005; 99212 ==

== ENCOUNTER 2024-03-23 15:00 | Outpatient (REF) | payer MEDICARE, OTHER, SELFPAY ==
[2024-03-23 15:32] LABS: Appearance Urine Turbid; Color Urine Yellow; Glucose Urine UA 250 mg/dL (Negative); Leukocyte Esterase Urine Large (3+) (Negative); Nitrite Urine Positive (Negative); UMIC TRIGGER UA YES; Urine Blood Large (3+) (Negative); Urine Ketones Trace mg/dL (Negative); Urine Protein 100 (2+) mg/dL (Neg-Trace)
[2024-03-23 15:48] LABS: Bacteria Urine 4+ (None Seen); RBC Urine >20 /HPF (0-2); Squamous Epithelial Cell Urine 0-2 /HPF (0-2); WBC Urine >50 /HPF (0-5)
== END 2024-03-23 15:01 | disposition home or self-care (01) ==
LOC: HO.HVNA 15:00
PROVIDERS: Visit Provider Urology
DX: R82.90 Unspecified abnormal findings in urine (principal)
CPT/HCPCS: 81001; 87086

== ENCOUNTER 2024-04-08 09:51 | Outpatient (REF) | payer MEDICARE, OTHER, SELFPAY ==
--- OUTSIDE RECORDS SUMMARY | 2024-04-08 09:56 | XMS_ITS ---
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 This section includes the names of all active insurance providers for the patient. Insurance Provider Type of Coverage Plan Name Start of Policy Coverage End of Policy Coverage Group Number Member ID Insurance Provider's Telephone Number Policy Arriaga's Name Patient's Relationship to Policy Arriaga MEDICARE (WNR) MEDICARE (M) PART A Apr 22, 2001 PART A [id number] JENIFER MENA PATIENT MEDICARE (WNR) MEDICARE (M) PART B Apr 22, 2001 PART B [id number] JENIFER MENA PATIENT [employer] PLAN F May 11, 2008 PLANF [id number] JENIFER MENA PATIENT Selected Encounter This section includes the information on record at [place] for the Encounter. Date/Time Encounter Type Encounter Description Reason Provider Source Apr 06, 2024 03:19 PM QNHP OL DIG ASSMT&MGMT 21+ [facility] - CLINICAL PHARMACIST ICD-10-CM Z79.899 Other cpc coder (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 MIRI SAGE Encounter Template Text not used by [facility] Assessments - Encounter Diagnoses This section includes the primary and secondary diagnoses documented for the Encounter. Date/Time Primary/Secondary Diagnosis Diagnosis Name Provider Source Apr 06, 2024 06:51 PM PRIMARY Other cpc coder (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 MIRI SAGE [facility] Plan of Treatment: Future Appointments (+ 6 months) and Future Tests (+/- 45 days) The Plan of Treatment section includes future care activities for the patient from all [place] treatmentfacilities. This section includes future appointments and future orders which are active, pending or scheduled. Active, Pending, and Scheduled Orders This section includes a listing of several types of active, pending, and scheduled orders, including clinic medications orders, diagnostic test orders, procedure orders and consult orders; where the start date of the order is 45 days before the date of the Encounter or 45 days after the date of theEncounter. The data comes from all [place] treatment facilities. Test Date/Time Test Type Test Details Facility Name Apr 03, 2024 02:43 PM Consult Order [facility] OT NH M/POPC OUTPT Cons Warp Tester's Choice [facility] Apr 03, 2024 02:43 PM Consult Order [facility] NUTRI TION SPOPC OUTPT Cons Warp [facility] Encounter Notes: All associated encounter notes This section contains the clinical notes associated to the Encounter. Date/Time Encounter Note(s) Provider Source Apr 06, 2024 03:20 PM [facility] MEDICATION MG T NOTE: LOCAL TITLE: [facility] PHARMACY MEDICATION REVIEW STANDARD TITLE: [facility] MEDICATION MGT NOTE DATE OF NOTE: APR 06, 2024@15:20 ENTRY DATE: APR 06, 2024@15:20:54 AUTHOR: MIRI SAGE EXP COSIGNER: URGENCY: STATUS: COMPLETED [facility] PHARMACY MEDICATION REVIEW Has ADDENDA Jenifer Mena is an 88 year-old WHITE MALE. PMH (per problem list/chart review): HTN, HLD, HFrEF, T2DM, CAD, OA, a fib, urinary retention, occasional bowel incontinence, hx of UTI; hx of alcohol dependence, hx of anemia, hx of hypokalemia, ischemic cardiomyopathy Alcohol (+): hx of alcohol dependence; occasional beer Tobacco (-) Allergies/ADR: Patient has answered NKA Active Outpatient Medications Status 1) APIXABAN 5MG TAB TAKE ONE TABLET BY MOUTH EVERY 12 HOURS ACTIVE Indication: ATRIAL FIBRILLATION 2) DEPEND UNDERWEAR,MAXIMUM,MEN LARGE USE 1 BRIEF DIRECTED ACTIVE TWICE DAILY NEEDED * This senior underwriter performed a medication reconciliation with 's preferred non-[facility] Pharmacy ([facility], ). Discrepancies and relevant refill dates provided below: Active Non-VA Medications Status 1) Non-VA ACETAMINOPHEN 500MG TAB 1000MG BY MOUTH TWICE DAILY ACTIVE NEEDED Indication: FOR PAIN 2) Non-VA AMIODARONE HCL 200MG TAB 200MG BY MOUTH ONCE DAILY ACTIVE Indication: FOR VENTRICULAR FIBRILLATION 3) Non-VA ATORVASTATIN CALCIUM 80MG TAB 40MG BY MOUTH ONCE ACTIVE DAILY 4) Non-VA FINASTERIDE 5MG TAB 5MG BY MOUTH ONCE DAILY ACTIVE 5) Non-VA FUROSEMIDE 20MG TAB 20MG BY MOUTH ONCE DAILY ACTIVE 6) Non-VA METFORMIN HCL 1000MG TAB 1000MG BY MOUTH TWICE DAILY ACTIVE 7) Non-VA SPIRONOLACTONE 25MG TAB 25MG BY MOUTH ONCE DAILY ACTIVE 8) Non-VA TAMSULOSIN HCL 0.4MG CAP 0.4MG BY MOUTH ONCE DAILY ACTIVE * Per med rec, may also be taking the following agents: - solifenacin 5mg (filled 03/31/24, 30-day supply) - glyburide 2.5mg BID (filled 03/18/24,30-day supply) THE ABOVE MEDICATIONS WERE REVIEWED FOR: ADR, potential incompatibilities, compliance, duplication of therapy, and indications on problem list Other Rx/OTC/Herbals: solifenacin, glyburide High Alert Meds: apixaban, amiodarone, metformin IR, glyburide Look Alike/Sound Alike Meds: acetaminophen, atorvastatin Duplication of Therapy: none Excessive Duration: ?solifenacin, glyburide Vitals: ======= Ht: 72 in (11/21/23, per [facility]) Wt: 75.50 kg (11/21/23, per [facility]) BP: 128/84 (03/30/2024 21:50) HR: 75 (03/30/2024 21:50) Pain: 2 (03/30/2024 21:50) Labs: ===== SERUM Na K BUN SCr *11/21/23 136 4.5 24 H 0.91 QTc: 486 H ms (*11/20/23) eGFR (CKD-EPI 2020): above 60 (*11/21/23) CrCl (C&G, SCr 0.91, ideal BW): ~61 mL/min M.3 mg/dL (*11/17/23) SERUM AST ALT *11/21/23 60 H 201 H - suspected hepatic congestion d/t HF exacerbation BLOOD WBC Hgb Hct MCV Plt *11/21/23 9.8 10.3 L 32.2 L 89.4 330 Ca: 9.6 mg/dL (*11/21/23) Alb: 4 g/dL (*11/21/23) ASSESSMENT: with a PMH of a fib on apixaban plus amiodarone, HF, urinary retention on FC, and T2DM was admitted to [facility] on 03/30/24. He lives with in a single family home with his son, Christina, and grandson, Pan, who assist him with ADLs and IADLs. [place] has limited mobility; he can ambulate with a rolling walker for a short distance. INTERVENTIONS/SUGGESTIONS: 1. Patient's medications were reviewed for significant drug interactions. * amiodarone/apixaban - concurrent use may increase apixaban exposure and bleeding risk; monitor for signs/sx of bleeding * amiodarone/solifenacin - concurrent use may increase risk of QTc prolongation; last QTc 486 and solifenacin recently started, may consider alerting the prescriber of solifenacin for risk versus benefit assessment * amiodarone/atorvastatin - concurrent use may increase risk of myopathy d/t increased atorvastatin exposure; monitor lipid panel, LFTs, and for muscle pain/weakness * amiodarone/glyburide - concurrent use may result in increased plasma levels of glyburide; monitor for signs/sx of hypoglycemia and consider change in DM regimen (changing from BID to daily dosing of glyburide versus change to glipizide versus stopping sulfonylurea) 2. Patient has an estimated creatinine clearance of ~61 mL/min. Last AST/ALT elevated. Current medications are dosed appropriately for the patient's renal and hepatic function. 3. Medications reviewed to determine if regimen could contribute to falls. Several agents on 's active medication list may increase fall risk including amiodarone, atorvastatin, furosemide, spironolactone, tamsulosin, solifenacin, and glyburide. Also, apixaban use may increase bleeding risk should a fall occur. No documented falls in the past year. To reduce the risk for falls, educate pt re: safe postural transitions and signs/sx of orthostatic hypotension. Also, monitor for dizziness, hypotension, bradycardia, hypoglycemia, dehydration, confusion, and muscle pain/weakness given current medication regimen. Educate pt re: need to have blood glucose monitored for signs/sx of confusion, diaphoresis, and/or dizziness with use of glyburide. Please encourage administration of tamsulosin and glyburide with meals to prevent adverse effects of orthostatic hypotension and hypoglycemia, respectively. * [place] remains on apixaban for a fib diagnosis. Please continue to emphasize the importance of seeking emergency help should he hit his head in future. This is recommended due to concern for intracranial hemorrhage. 4. All medical conditions have appropriate medication treatment. * HTN - on spironolactone and furosemide; SMBPs daily at home (SBPs 120s to low 130s); only recent BP well-controlled with HR of 75 * HFrEF - on aldosterone antagonist and loop diuretic; metoprolol and valsartan recently stopped d/t hypotension; risks of SGLT2 inhibitor likely outweigh benefit given chronic FC and recent UTI; last ECHO on 07/03/23 showed LVEF 20-25%; followed by non-[place] Cardiology * T2DM - on metformin IR monotherapy and glyburide BID, SMBG 2-3 times weekly; glyburide is not typically recommended in older adults given high risk for hypoglycemia/concern for falls; recommend obtaining A1c for assessment of BG control - in the meantime would change glyburide from BID to once daily dosing to reduce risk of hypoglycemia given long half-life of glyburide and DDI with amiodarone; unclear if is followed by Optometry or Podiatry (annual f/u recommended for DM monitoring) * a fib - recently switched from warfarin to DOAC ([facility]), apixaban dosing reasonable based on weight and renal function; on amiodarone for rate control; continue to monitor for sign/sx of bleeding - hx of bleeding with SP catheter changes * BPH/urinary retention - a suprapubic catheter was recently placed in October 2023 - monitor for bleeding with monthly catheter changes; followed by non-VA Urology (has upcoming f/u in Apr 2024); on tamsulosin, solifenacin recently started for unclear indication (?bladder spasms) - will have to monitor closely for benefit and anticholinergic effects, may consider repeat EKG if plan for to continue solifenacin given DDI with amiodarone 5. All medications have an appropriate indication and supporting clinical symptoms. * atorvastatin - hx of HLD and ASCVD; recommend obtaining a lipid panel; hx of elevated AST/ALT thought to be a result hepatic congestion from HF 6. Adherence Concerns: no concerns at this time - medications prefilled by [facility] 7. Health Maintenance: > Immunizations: [place] is due for the following immunizations per chart review and CDC recommendations: * two doses of the zoster vaccine (Shingrix) spaced 2-6 months apart * Tdap * RSV * PCV20 > EtOH: * Continue to monitor alcohol use and ensure minimal intake given older age and fall risk with increased bleeding risk. > Bladder/Bowel: * Inquire about incontinence and severity biannually. > Bone Health: * no recent documented vit D level, not on supplementation * last Ca WNL, not on supplementation > Aspirin: * not on low-dose aspirin despite hx of ASCVD, recently stopped during hospitalization when anticoagulation was started * appreciate increased bleeding risk on DOAC and hx of falls 8. Patient with zero refills on: apixaban 9. Continue to review quarterly. Recommendations: - Of note, this senior underwriter performed a medication reconciliation with 's preferred non-[facility] Pharmacy ([facility], ) and subsequently updated 's non-VA medication list. was found to have recent active Rxs for the following: * solifenacin 5mg (filled 03/31/24, 30-day supply) - may consider alerting prescriber for risk versus benefit assessment of continuation given DDI with amiodarone and history of elevated QTc prior to starting solifenacin (486 ms on 11/20/23) * glyburide 2.5mg BID (filled 03/18/24,30-day supply) - likely not appropriate given older age, long half-life of glyburide, and DDI with amiodarone; no A1c available for assessment of BG control but recommend changing to once daily dosing to reduce risk in the meantime - Recommend ordering a lipid panel in addition to LFTs, ferritin/sat, vit B12, folate, vit D, TSH, microalbumin/Cr, and an A1c with next scheduled labwork. - Appreciate was recently approved for catastrophic disability. Please ensure duplicate Rxs are discontinued if VA Rxs are entered. Of note, can enter a comment on VA Rxs to suspend fill until a specific date to avoid a stockpile at home, if appropriate. - Please clarify if currently follows with Optometry and Podiatry specialists. If not, would assess 's willingness for assessment by specialists for appropriate DM monitoring (recommended annually). The details of this review were shared with the IDT in order to assist in creating a care plan designed to provide services focused on the health and well being of the patient. Time Spent: 120 min /michell/ MIRI SAGE [facility] Clinical Pharmacist Practitioner Signed: 04/06/2024 19:04 Receipt Acknowledged By: 04/06/2024 21:00 /michell/ LISA VIVAS RN, TANIYAN [facility] SKIING TEACHER 04/07/2024 08:25 /michell/ JUVENTINO MARTIN RN,MSN,STOCK HANDLER FLOORPERSON-C [facility] NURSE PRACTITIONER 04/06/2024 ADDENDUM STATUS: COMPLETED [facility] manages meds and had a great set up with detailed med list and all bottles for which they are prefilling. According to 's med list, bottles and prefill boxes he is not taking glyburide 2.5mg BID or solifenacin 5mg. Will readdress at subsequent visit. /michell/ LISA VIVAS RN, NANCY HB SKIING TEACHER Signed: 04/07/2024 08:04 04/07/2024 ADDENDUM STATUS: COMPLETED To review upon admission /seven MARTIN RN,MSN,STOCK HANDLER FLOORPERSON-C [facility] NURSE PRACTITIONER Signed: 04/07/2024 08:26 MIRI SAGE CNTRL WSN [facility]
--- OUTSIDE RECORDS SUMMARY | 2024-04-08 09:56 | XMS_ITS ---
Author Name [facility] [place] Organization [facility] [place] Address [address] [place] [id number] Care Team Providers Care Wood Tile Installer Name Role Phone ARDEN TRENT Primary Care [...] PART A Apr 22, 2001 PART A [id number] JENIFER ANAYA PATIENT MEDICARE (WNR) MEDICARE (M) PART B Apr 22, 2001 PART B [id number] JENIFER ANAYA PATIENT [employer] MEDIGAP PLAN F May 11, 2008 PLANF [id number] JENIFER ANAYA PATIENT Selected Encounter This section includes the information on record at [place] for the Encounter. Date/Time Encounter Type Encounter Description Reason Pro vider Source Apr 03, 2024 02:25 PM Outpatient Encounter [facility] PHYSIC EXTND(DISPATCHER ELECTRIC POWER,SALES PRODUCT MANAGER,PA) IHE Encounter Template Text not used by [place] Plan of Treatment: Future Appointments (+ 6 [...] Order [facility] OT [place] M/POPC OUTPT Cons Resolution Expert's Choice [facility] Apr 03, 2024 02:43 PM Consult Order [facility] NUTRI TION SPOPC OUTPT Cons Resolution Expert's Choice [facility] Encounter Notes: All associated encounter notes This section contains the clinical notes associated to the Encounter. Date/Time Encounter Note(s) Provider Source Apr 03, 2024 02:51 PM ADDENDUM: LOCAL TITLE: Addendum STANDARD TITLE: ADDENDUM DATE OF NOTE: APR 03, 2024@14:51:31 ENTRY DATE: APR 03, 2024@14:51:32 AUTHOR: ARASELI VARGAS COSIGNER: URGENCY: STATUS: COMPLETED Document Received On: Mar Document Type: Surgical H&P Date of Service: Feb Facility and or Provider: [facility] Contact Information: PCP of Record: ARDEN TRENT Next visit with PCP: No future appointments /michell/ ARASELI VARGAS ORTHO RN [facility] Signed: 04/03/2024 14:52 Receipt Acknowledged By: 04/03/2024 14:58 /es/ LISA VIVAS RN, BSN [facility] FABRICATION MANAGER 04/03/2024 14:55 /es/ JUVENTINO MARTIN RN,MSN,TOOL HONING MACHINE SET UP OPERATOR-C [facility] NURSE PRACTITIONER --- Original Document --- 04/03/24 FAX/MAIL RECEIVED: Document Received On: Mar Document Type: Office Visit Note Date of Service: Feb Facility and or Provider: [facility] Contact Information: PCP of Record: ARDEN TRENT Next visit with PCP: No future appointments Primary Care May keep copies of this document for up to 14 days and send the original for scanning. /michell/ ARASELI VARGAS ORTHO RN [facility] Signed: 04/03/2024 14:26 Receipt Acknowledged By: 04/03/2024 14:43 /michell/ LISA VIVAS RN, BSN [facility] FABRICATION MANAGER 04/03/2024 14:47 /michell/ JUVENTINO MARTIN RN,MSN,TOOL HONING MACHINE SET UP OPERATOR-C [facility] NURSE PRACTITIONER ARASELI VARGAS [facility] [place] [facility] Apr 03, 2024 02:25 PM ADMINISTRATIVE NOT E: LOCAL TITLE: FAX/MAIL RECEIVED STANDARD TITLE: ADMINISTRATIVE NOTE DATE OF NOTE: APR 03, 2024@14:25 ENTRY DATE: APR 03, 2024@14:25:26 AUTHOR: ARASELI VARGAS COSIGNER: URGENCY: STATUS: COMPLETED FAX/MAIL RECEIVED Has ADDENDA Document Received On: Mar Document Type: Office Visit Note Date of Service: Feb Facility and or Provider: [facility] Contact Information: PCP of Record: ARDEN TRENT Next visit with PCP: No future appointments Primary Care May keep copies of this document for up to 14 days and send the original for scanning. /michell/ ARASELI VARGAS ORTHO RN [facility] Signed: 04/03/2024 14:26 Receipt Acknowledged By: 04/03/2024 14:43 /seven VIVAS RN, BSN [facility] FABRICATION MANAGER 04/03/2024 14:47 /michell/ JUVENTINO MARTIN RN,MSN,TOOL HONING MACHINE SET UP OPERATOR-C [facility] NURSE PRACTITIONER 04/03/2024 ADDENDUM STATUS: COMPLETED Document Received On: Mar Document Type: Surgical H&P Date of Service: Feb Facility and or Provider: [facility] Contact Information: PCP of Record: ARDEN TRENT Next visit with PCP: No future appointments /michell/ ARASELI VARGAS ORTHO RN [facility] Signed: 04/03/2024 14:52 Receipt Acknowledged By: 04/03/2024 14:58 /es/ LISA VIVAS RN, BSN [facility] FABRICATION MANAGER 04/03/2024 14:55 /es/ JUVENTINO MARTIN RN,MSN,TOOL HONING MACHINE SET UP OPERATOR-C [facility] NURSE PRACTITIONER [facility]ELI VARG[facility]
--- OUTSIDE RECORDS SUMMARY | 2024-04-08 09:56 | XMS_ITS | Encounter Summary ---
Author Name [facility] [place] Organization [place] Address [address] [place] [address] Care Team Providers Care Global Clinical Leader Name Role Phone ARDEN TRENT Primary Care [...] PART A Apr 22, 2001 PART A [id number] JENIFER MENA PATIENT MEDICARE (WNR) MEDICARE (M) PART B Apr 22, 2001 PART B [id number] JENIFER MENA PATIENT [id number] [employer] MEDIGAP PLAN F May 11, 2008 PLANF [id number] JENIFER MENA PATIENT Selected Encounter This section includes the information on record at [place] for the Encounter. Date/Time Encounter Type Encounter Description Reason Provider Source Apr 03, 2024 02:54 PM Outpatient Encounter [facility] Nursing (RN / LP) MINI MURO Encounter Template Text not used by [place] Plan of Treatment: Future Appointments (+ 6 months) and Future Tests (+/- 45 days) The Plan of Treatment section includes future care activities for the patient from all VA treatmentfacilities. This section includes future appointments and [...] of theEncounter. The data comes from all [place] treatment facilities. Test Date/Time Test Type Test Details Facility Name Apr 03, 2024 02:43 PM Consult Order [facility] OT [place] M/POPC OUTPT Cons Vice President Of Contracts's Choice [facility] Apr 03, 2024 02:43 PM Consult Order [facility] NUTRI TION SPOPC OUTPT Cons Vice President Of Contracts's Choice [facility] Encounter Notes: All associated encounter notes This section contains the clinical notes associated to the Encounter. Date/Time Encounter Note(s) Provider Source Apr 03, 2024 02:54 PM GERIATRIC MEDICINE NOTE: LOCAL TITLE: PERSONAL CARE SERVICES CASE MIX TOOL STANDARD TITLE: GERIATRIC MEDICINE NOTE DATE OF NOTE: APR 03, 2024@14:54:26 ENTRY DATE: APR 03, 2024@14:54:26 AUTHOR: MINI MURO EXP COSIGNER: URGENCY: STATUS: COMPLETED PERSONAL CARE SERVICES CASE MIX TOOL Has ADDENDA HCBS Case Mix & Budget Tool (CASE MIX) Date Given: 04/03/2024 Clinician: Mini Muro Location: [facility]/no/hbpc/pact 1/Srn4 : MenaJenifer Moshe SSN: [id number] : [birth year] ([birth year]) Gender: Male Type of Evaluation: Change in level of care Anticipated Start Date: 04/03/2024 Anticipated Length of Service: 12 months Case Mix Level: G ADL Category: High Questions and Answers: Q1. DRESSING *2 Need some help from another person to put your clothes on. Q2. GROOMING *2 Needs and get daily help from another person. Q3. BATHING *4 Need and get help washing and drying your body. Q4. EATING *2 Need and get help in cutting food, buttering bread or arranging food. Q5. BED MOBILITY *2 Always need and get help to sit up. Q6. TRANSFERRING *2 Need one other person to help you. Q7. WALKING *2 Need and get help from one person to help you walk. Q8. BEHAVIOR 0 Behavior requires no intervention. Q9. COMMUNICATION 0 Understood. Q10. TOILETING *4 Have accidents more than once a week. Q11. MDS HC 2.0/CPS Cognitive Skill for Daily Decision Making 1 Modified [place] - some difficulty in new situations only. Q12. MDS 2.0/CPS: Short Term Memory (recall of what was learned or known) 0 Short-term memory okay- seems/appears to recall after 5 minutes Q13. SPECIAL TREATMENTS 2 One or more [place] such as: 10. Skin Care, 8. Ostomies & Catheters Q14. CLINICAL MONITORING 1 1-2 shifts a day Q15. SPECIAL NURSING No Q16. NEUROMUSCULAR DIAGNOSIS No COMMENTS Due to Suprapubic Catheter, has required increase in assist w/ all ADLs and IADLs due to pain and bleeding at insertion site. Requires assist w/ all bathing, dressings and IADLs. Using rollator and standby assist, PHONOGRAPH NEEDLE TIP MAKER assists w/ home exercise plan to help regain strength and mobility SOURCES 4. Observation /michell/ MINI MURO RN, BSN [facility] INVENTORY CONTROL PLANNER Signed: 04/03/2024 14:54 Receipt Acknowledged By: 04/03/2024 14:56 /seven Christianson RN, RN 04/03/2024 ADDENDUM STATUS: COMPLETED At case [facility] G is not eligible for increase in PHONOGRAPH NEEDLE TIP MAKER at this time. /michell/ Laura Christianson RN RN Signed: 04/03/2024 14:57 MINI MURO [facility]
--- OUTSIDE RECORDS SUMMARY | 2024-04-08 09:56 | XMS_ITS | Continuity of Care Document ---
Author Name [facility] Organization [facility] Care Team Providers Care Criminal Investigator Name Role Phone [facility] Unavailable Unavailable Problems Combined list of problems from Department of Defense and Veterans Affairs facilities. It does not include entries that were removed or entered in error. Problem Status Onset Date Problem Type Date of Resolution Comments Source AF - Atrial fibrillation Active Condition [place] CAD - Coronary Artery Disease ([facility] [id number]) Active Condition [place] CHF - Congestive Heart Failure ([facility] [id number]) Active Condition [place] Diabetes Mellitus Type 2 ([facility] [id number]) Active Condition [place] Frail elderly Active Condition [facility] History [facility] cardiac catheterization Active [facility] HTN - Hypertension ([facility] 10918215) [facility] Hyperlipidemia ([facility] 84832585) Active Condition [place] Long-term current use of anticoagulant Active Condition [facility] Lower urinary tract symptoms due to benign prostatic hypertrophy Active Condition [place] OA - Osteoarthritis ([facility] [id number]) [facility] Under care of multiple providers Active Condition Dec 19 Entered By: RUKHSANA HANKINS Comment: non VA PCP: Dimitri Wilson [phone] Dec 20, 2023 Entered By: RUKHSANA HANKINS Comment: Cardiology: Yosef Cuello [phone] Dec 20, 2023 Entered By: ROBIN FU Comment: Optometry: Randall Blake [phone] [facility] Diagnosis: ICD-10-CM Z79.899 Other termite control servicer (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 Active Diagnosis [facility] Diagnosis: ICD-10-CM R54 Age-related physical debility Active Diagnosis [facility] Diagnosis: ICD-10-CM I50.9 Heart failure, unspecified Active Diagnosis [facility] Diagnosis: ICD-10-CM Z51.81 Encounter for therapeutic drug level monitoring Active Diagnosis [facility] Diagnosis: ICD-10-CM 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 Active Diagnosis [facility] Diagnosis: ICD-10-CM I48.91 Unspecified atrial fibrillation Active Diagnosis [facility] Diagnosis: ICD-10-CM Z74.1 Need for assistance with personal care Active Diagnosis [facility] Diagnosis: ICD-10-CM I10 Essential (primary) hypertension Active Diagnosis [place] Medications Combined list of outpatient medications from Department of Defense and [facility] Affairs facilities.Medications provided include 1) outpatient medications from the last 15 months, and 2) patient-reported medications. Medication Details Route Status Patient Instructions Prescription Expires Prescription Number Last Dispense Date Ordering Provider Order Date Order Qty Source ACETAMINOPH EN 500MG TAB TAKE TWO TABLETS BY MOUTH TWICE DAILY NEEDED ORAL ACTIVE [facility] spring IELD AMIODARONE HCL 200MG TAB TAKE ONE TABLET BY MOUTH ONCE DAILY ORAL ACTIVE Adilene TRENT 2023 [facility] APIXABAN 5MG TAB TAKE ONE TABLET BY MOUTH EVERY 12 HOURS FOR ATRIAL FIBRILLA TION ORAL ACTIVE 05/05/2024 [id number] [facility] 2023 180 IELD ATORVASTATI N [place] 80MG TAB TAKE ONE-HALF TABLET BY MOUTH ONCE DAILY ORAL ACTIVE [facility] 2023 IELD FINASTERIDE 5MG TAB TAKE ONE TABLET BY MOUTH ONCE DAILY ORAL ACTIVE [facility] 2023 IELD FUROSEMIDE 20MG TAB TAKE ONE TABLET BY MOUTH ONCE DAILY ORAL ACTIVE [facility] spring IELD GLYBURIDE 2.5MG TAB TAKE ONE TABLET BY MOUTH TWICE DAILY ORAL ACTIVE MABEL SAGE 2023 [facility] METFORMIN HCL 1000MG TAB TAKE ONE TABLET BY MOUTH TWICE DAILY ORAL ACTIVE [facility] 2023 IELD SOLIFENACIN SUCCINATE 5MG TAB TAKE ONE TABLET BY MOUTH ONCE DAILY ORAL ACTIVE MABEL SAGE 2023 [facility] SPIRONOLACT ONE 25MG TAB TAKE ONE TABLET BY MOUTH ONCE DAILY ORAL ACTIVE [facility] spring IELD TAMSULOSIN HCL 0.4MG CAP TAKE 1 CAPSULE BY MOUTH ONCE DAILY ORAL ACTIVE [facility] spring IELD Immunizations Combined list of available immunizations from the Department of Defense and Veterans Affairs facilities. Immunization Series Date Given Administered By Site Reaction Lot Number CVX Code Drug Filter Plant Supervisor Status Comments Source COVID-19 (Loop88), MRNA, LNP-S, PF, EMELINA-SUCROSE, 30 MCG/0.3 ML (AGES 12+ YEARS) 2023 309 complet ed [facility] INFLUENZA, UNSPECIFIED FORMULATION 2023 88 complet ed [facility] COVID-19 (PFIZER), MRNA, LNP-S, BIVALENT, PF, 30 MCG/0.3 ML DOSE 1 2022 300 complet ed noted in [facility] medical record [facility] COVID-19 (PFIZER), MRNA, LNP-S, BIVALENT, PF, 30 MCG/0.3 ML DOSE 1 2021 300 complet ed noted in [facility] medical record [facility] COVID-19 (PFIZER), MRNA, LNP-S, PF, EMELINA-SUCROSE, 30 MCG/0.3 ML (AGES 12+ YEARS) 1 2021 309 complet ed noted in [facility] medical record [facility] COVID-19 (Loop88), MRNA, LNP-S, PF, 30 MCG/0.3 ML DOSE 1 2020 208 complet ed noted in [facility] medical record [facility] COVID-19 (PFIZER), MRNA, LNP-S, BIVALENT, PF, 30 MCG/0.3 ML DOSE 1 2020 300 complet ed noted in [facility] medical record [facility] COVID-19 (Loop88), MRNA, LNP-S, PF, 30 MCG/0.3 ML DOSE 1 2020 208 complet ed noted in [facility] medical record [facility] ZOSTER LIVE 2011 121 complet ed [facility] Vital Signs Combined list of inpatient and outpatient Vital Signs from Department of Defense and Veterans Affairs, ranging from 12 months to all on record, depending upon the facility. Vital Sign Value Date Comments Source SYSTOLIC BLOOD PRESSURE 128 03/30/2024 21:50:44 [facility] DIASTOLIC BLOOD PRESSURE 84 03/30/2024 21:50:44 [facility] PULSE OXIMETRY 97 03/30/2024 21:50:44 [facility] WEIGHT 160 03/30/2024 21:50:44 [facility] PAIN 2 03/30/2024 21:50:44 [facility] TEMPERATURE 97.8 03/30/2024 21:50:44 [facility] PULSE 75 03/30/2024 21:50:44 [facility] RESPIRATION 18 03/30/2024 21:50:44 [facility] Encounters Combined list of: 1) Encounters from Department of Veterans Affairs facilities going back up to thelast 18 months. 2) Encounters from the Department of Defense facilities going back up to 280 months. Location Location Details Encounter Type Encounter Number Reason For Visit Attending Provider ADM Date DC Date Status Disposition Source [facility] Outpatient Encounter [id number] 1.01/22 [facility] Outpatient [facility]counter [id number] 11/15 [facility] Outpatient Encounter [id number] 11/15 [facility] Outpatient Encounter [id number] 11/20 [facility] Outpatient Encounter [id number] 11/24 [facility] Outpatient Encounter [id number] 11/26 [facility] Out[facility] Encounter [id number] 12/03 [facility] Out[facility] Encounter [id number] 12/04 [facility] Outpatient Encounter [id number] 12/04 [facility] Outpatient Encounter [id number] 1.12/31 [facility] Out[facility] Encounter [id number] 1.01/06 [facility] OFF[facility] O/P NEW MOD 45 MIN [id number] Diagnos is: ICD-10- CM I10 Essenti al (primar y) hyperte nsion<b r/> STELEA,CAR MEN F 01/15 [place] [facility] HC PRO PHONE CALL 5-10 MIN [id number] Diagnos is: ICD-10- CM I50.9 Heart failure , unspeci fied
MILTON SMALLWOOD 01/20 [facility] Out[facility] Encounter [id number] 01/27 [facility] Out[facility] Encounter [id number] 01/27 [facility] Outpatient Encounter [id number] 1. MENDELAMANDAANNA HODGSON 01/29 [facility] Out[facility] Encounter [id number] 1.01/29 [facility] Outpatient Encounter [id number] 1.01/29 [facility] Out[facility] Encounter [id number] 1.01/29 [facility] PHONE CALL 5-10 MIN [id number] 1BY. 39 Diagnos is: ICD-10- CM Z74.1 Need for assista nce with persona l care
ITALO ALVARADO 01/29 [place] [facility] MTMS BY PHARM ADDL 15 MIN [id number] Diagnos is: ICD-10- CM I48.91 Unspeci fied atrial fibrill ation<b r/> ELIANE CHUN 02/05 [facility] Outpatient Encounter [id number] 1.02/05 [facility] Outpatient Encounter [id number] 1.02/12 [facility] Outpatient Encounter [id number] [facility] Outpatient Encounter [id number] [facility] OT EVAL LOW COMPLEX 30 MIN [id number] 1. 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
REJI PRICE 03/10 [facility] Outpatient Encounter [id number] 1.03/11 [facility] MTMS BY PHARM EST 15 MIN [id number] Diagnos is: ICD-10- CM Z51.81 Encount er for therape utic drug level monitor ing<br/ > ELIANE CHUN 03/12 [facility] RN E&M PLAN SVS, 15 MIN [id number] Diagnos is: ICD-10- CM I50.9 Heart failure , unspeci fied
MILTON SMALLWOOD 03/13 [facility] Outpatient Encounter [id number] 1.03/13 [facility] RN CARE EA 15 MIN HH/HOSPICE [id number] 1. Diagnos is: ICD-10- CM I50.9 Heart failure , unspeci fied
ALLSOP,CARLOS ALBERTO MAXIMILIAN 03/13 [facility] Outpatient Encounter [id number] 1.03/30 [facility] SELF CARE MNGMENT TRAINING [id number] 1. Diagnos is: ICD-10- CM R54 Age-rel ated physica l debilit y
ALLSADIMARIXAI MAXIMILIAN 03/30 [facility] Outpatient Encounter [id number] 1.04/03 [facility] Outpatient Encounter [id number] 1.04/03 [facility] Outpatient Encounter [id number] 1. JOANNASADICARLOS ALBERTO MAXIMILIAN 04/03 [facility] QNHP OL DIG ASSMT&MGMT 21+ [id number] Diagnos is: ICD-10- CM Z79.899 Other usp (curren t) drug therapy
MIRI SAGE 04/06 [facility] Social History Combined list of available smoking, tobacco, and other social history from Department of Defense and Veterans Affairs facilities. Social History Type Response Date Comment Sourc e Tobacco smoking status [facility]-TOBACCO FORMER USER 024 [place] History of tobacco use [place]-TOBACCO QUIT 1 5 YRS OR MORE 01/16/2024 [place] Plan of Care List of future care activities from Department of Veterans Affairs facilities. Additional future care activities may be listed in the Assessment and Plan section. Date/Time Care Activity Care Activity Detail Facili ty 04/03/2024 Consult Order [facility] OT NHM/[facility] OUTPT Cons Try Out Person's Choice [facility] [place] [facility] 04/03/2024 Consult Order [facility] NUTRITION S [facility] OUTPT Cons Try Out [facility]
--- OUTSIDE RECORDS SUMMARY | 2024-04-08 09:56 | XMS_ITS | Encounter Summary ---
Author Name [facility] [place] Organization [facility] [place] Address [address] [place] [address] Care Team Providers Care Sweep Press Operator Name Role Phone ARDEN TRENT Primary Care [...] PART A Apr 22, 2001 PART A [id number] JENIFER ANAYA PATIENT MEDICARE (WNR) MEDICARE (M) PART B Apr 22, 2001 PART B [id number] JENIFER ANAYA PATIENT [email or web address] MEDIGAP PLAN F May 11, 2008 PLANF [id number] JENIFER ANAYA PATIENT Selected Encounter This section includes the information on record at [place] for the Encounter. Date/Time Encounter Type Encounter Description Reason Pro vider Source Apr 03, 2024 01:47 PM Outpatient Encounter [facility] Nursing (RN / LP) IHE Encounter Template Text not used by [place] Plan of Treatment: Future Appointments (+ 6 [...] of theEncounter. The data comes from all [place] treatment facilities. Test Date/Time Test Type Test Details Facility Name Apr 03, 2024 02:43 PM Consult Order [facility] OT NH M/POPC OUTPT Cons Children Counselor[facility] Choice [facility] Apr 03, 2024 02:43 PM Consult Order [facility] NUTRI TION SPOPC OUTPT Cons Children Counselor's Choice [facility] Encounter Notes: All associated encounter notes This section contains the clinical notes associated to the Encounter. Date/Time Encounter Note(s) Provider Source Apr 03, 2024 01:47 PM PRIMARY CARE NOTE: LOCAL TITLE: SENT FAX/MAIL STANDARD TITLE: PRIMARY CARE NOTE DATE OF NOTE: APR 03, 2024@13:47 ENTRY DATE: APR 03, 2024@13:47:43 AUTHOR: LISA VIVAS EXP COSIGNER: URGENCY: STATUS: COMPLETED SENT FAX/MAIL Has ADDENDA FAX/MAIL SENT Receipt Facilitys Name: Dr Pedro Luis MANRIQUE, Dr Cuate Banerjee POC Name: Fax sent on: Mar Fax Number Used(If Applicable): Mailing Address Used (If Applicable): Desc. Of Records Released (Include dates of records):[facility] PCP [phone] [facility] Cards [phone] /michell/ LISA VIVAS RN, BSN [facility] DATE NIGHT CAREGIVER Signed: 04/03/2024 13:48 04/03/2024 ADDENDUM STATUS: COMPLETED Also requested: [facility] Urology Dr Lea records- [phone] /michell/ LISA VIVAS RN, BSN [facility] DATE NIGHT CAREGIVER Signed: 04/03/2024 14:37 LISA VIVAS [place] [facility] [place] [facility]
--- OUTSIDE RECORDS SUMMARY | 2024-04-08 09:57 | XMS_ITS | Encounter Summary ---
Author Name [facility] [place] [facility] [place] Organization [facility] [place] Address [address] [place] [address] Care Team Providers Care Wrapper Caser Name Role Phone ARDEN TRENT Primary Care [...] PART A Apr 22, 2001 PART A [id number] JENIFER ANAYA PATIENT MEDICARE (WNR) MEDICARE (M) PART B Apr 22, 2001 PART B [id number] JENIFER ANAYA PATIENT [employer] MEDIGAP PLAN F May 11, 2008 PLANF [id number] JENIFER ANAYA PATIENT Selected Encounter This section includes the information on record at [place] for the Encounter. Date/Time Encounter Type Encounter Description Reason Pro vider Source Feb 06, 2024 12:14 PM Outpatient Encounter COMMUNITY CARE CONSULT IHE Encounter Template Text not used by [facility] Plan of Treatment: Future Appointments (+ 6 months) and Future Tests (+/- 45 days) The Plan of Treatment section includes future care activities for the patient from all [facility] treatment[facility]ilities. This section includes future appointments and future orders which are active, pending or scheduled. Future Appointments This section includes appointments that were scheduled to occur 6 months from the date of the Encounter, up to a maximum of 20 appointments. The data comes from all [facility]. Appointment Date/Time Appointment Type Appointme nt Facility Name Mar 10, 2024 10:30 AM AMBULATORY - REHAB MEDICIN E [facility] Active, Pending, and Scheduled Orders This section includes a listing of several types of active, pending, and scheduled orders, including clinic medications orders, diagnostic test orders, procedure orders and consult orders; where the start date of the order is 45 days before the date of the Encounter or 45 days after the date of theEncounter. The data comes from all [facility]. Test Date/Time Test Type Test Details Facility Name Jan 31, 2024 01:42 PM Consult Order COMMUNITY CARE-GEC NON-SKILLED HOME HEALTH AIDE Cons Developmental Services Worker's Choice [place] Feb 05, 2024 12:00 AM Laboratory - Chemi stry Order CREATININE (eGFR 2020) BLOOD (SST-SERUM) [facility] Feb 05, 2024 12:00 AM Laboratory - Chemi stry Order LIVER FUNCTION BLOOD (SST-SERUM) [facility] Feb 05, 2024 12:00 AM Laboratory - Chemi stry Order CBC BLOOD (LAV-BLOOD) [facility] Feb 05, 2024 12:00 AM Laboratory - Chemi stry Order PT & INR (COUMADIN) BLOOD (BLUE-PLASMA) [facility] Encounter Notes: All associated encounter notes This section contains the clinical notes associated to the Encounter. Date/Time Encounter Note(s) Provider Source Feb 06, 2024 12:14 PM ADMINISTRATIVE NOT E: LOCAL TITLE: ADMINISTRATIVE NOTE STANDARD TITLE: ADMINISTRATIVE NOTE DATE OF NOTE: FEB 06, 2024@12:14 ENTRY DATE: FEB 06, 2024@12:14:25 AUTHOR: YANI GUPTA EXP COSIGNER: URGENCY: STATUS: COMPLETED HAS BEEN REFERRED TO THE [place] PURCHASED HOME CARE PROGRAM FOR WAREHOUSE TRAFFIC SUPERVISOR SERVICES. LETTER EXPLAINING THE GUIDELINES OF THIS PROGRAM HAS BEEN MAILED TO / FAMILY /es/ YANI GUPTA Signed: 02/06/2024 12:14 YANI GUPTA [facility]
--- OUTSIDE RECORDS SUMMARY | 2024-04-08 09:57 | XMS_ITS | Encounter Summary ---
Author Name Department [place] Organization [facility] [place] Address [address] [place] [address] Care Team Providers Care Agency Manager Name Role Phone ARDEN TRENT Primary Care [...] PART A Apr 22, 2001 PART A [id number] JENIFER ANAYA PATIENT MEDICARE (WNR) MEDICARE (M) PART B Apr 22, 2001 PART B [id number] JENIFER ANAYA PATIENT [employer] MEDIGAP PLAN F May 11, 2008 PLANF [id number] 03 JENIFER ANAYA PATIENT Selected Encounter This section includes the information on record at [place] for the Encounter. Date/Time Encounter Type Encounter Description Reason Pro vider Source Feb 25, 2024 02:47 PM Outpatient Encounter ADMIN PAT ACTIVTIES (MASNONCT) IHE Encounter Template Text not used by [place] Plan of Treatment: Future Appointments (+ 6 months) and Future Tests (+/- 45 days) The Plan of Treatment section includes future care activities for the patient from all [place] treatmentfacilities. This section includes future appointments and future orders which are active, pending or scheduled. Future Appointments This section includes appointments that were scheduled to occur 6 months from the date of the Encounter, up to a maximum of 20 appointments. The data comes from all [place] treatment facilities. Appointment Date/Time Appointment Type Appointme nt Facility Name Mar 10, 2024 10:30 AM [facility] Active, Pending, and Scheduled Orders This section includes a listing of several types of active, pending, and scheduled orders, including clinic medications orders, diagnostic test orders, procedure orders and consult orders; where the start date of the order is 45 days before the date of the Encounter or 45 days after the date of theEncounter. The data comes from all [place] treatment facilities. Test Date/Time Test Type Test Details Facility Name Jan 31, 2024 01:42 PM Consult Order COMMUNITY CARE-GEC NON-SKILLED HOME HEALTH AIDE Cons Lead Tank Mechanic's Choice [place] Feb 05, 2024 12:00 AM Laboratory - Chemistry Order CREATININE (eGFR 2020) BLOOD (SST-SERUM) [facility] Feb 05, 2024 12:00 AM Laboratory - Chemistry Order LIVER FUNCTION BLOOD (SST-SERUM) [facility] Feb 05, 2024 12:00 AM Laboratory - Chemistry Order CBC BLOOD (LAV-BLOOD) [facility] Feb 05, 2024 12:00 AM Laboratory - Chemistry Order PT & INR (COUMADIN) BLOOD (BLUE-PLASMA) [facility] Apr 03, 2024 02:43 PM Consult Order [facility] OT NH M/POPC OUTPT Cons [facility] [place] [facility] Apr 03, 2024 02:43 PM Consult Order [facility] NUTRI TION SPOPC OUTPT Cons Lead Tank [facility]ic[facility] Encounter Notes: All associated encounter notes This section contains the clinical notes associated to the Encounter. Date/Time Encounter Note(s) Provider Source Feb 25, 2024 02:47 PM ADMINISTRATIVE NOT E: LOCAL TITLE: CCC: SCHEDULING ADMINISTRATION STANDARD TITLE: ADMINISTRATIVE NOTE DATE OF NOTE: FEB 25, 2024@14:47:43 ENTRY DATE: FEB 25, 2024@14:47:44 AUTHOR: RAYMOND,UMESH EXP COSIGNER: URGENCY: STATUS: COMPLETED [facility]: SCHEDULING ADMINISTRATION Has ADDENDA Patient Demographics Patient Name: JENIFER ANAYA Patient Primary Phone: [phone] Patient Primary Address: [place] [address] Patient : 1935 Patient Age: 88 Caller/Recipient Relation to Patient: Self Administrative Administrative Note Reason: Other Administrative Note Comments: call from , asking about what benefits he can get for medication; his VNA nurses suggested he be taking glucerna; he cannot access his tub shower without help from grandson. He also said his memory is not as great at it was. Please advise IMPORTANT: This note was created by [facility] Clinical Contact Center staff. Please do not alert the staff member by adding them as a signer for future communications. Alerts are not monitored by this user. /michell/ UMESH BURGOSN 1 [facility] AMSA Signed: 02/25/2024 14:47 Receipt Acknowledged By: 02/25/2024 15:45 /michell/ NANCY YOUNG RN-BC REGISTERED NURSE 02/25/2024 15:52 /es/ MARY MON LPN Licensed Practical Nurse 02/25/2024 ADDENDUM STATUS: COMPLETED Called [place] and he reports that [facility] is in need of additional demand planning analyst hours to assist with ADL/iadl tasks. Author advised placed comment on [facility] demand planning analyst consult with request. Author advised [facility] that will need to place nutrition consult for consideration of nutritional supplements for . is agreeable with placement of consult. Author advised [facility] will place OT consult for contact to discuss safety/durable medical equipment needs in home. [facility] reports that he will continue to get his eliquis and incontinence products through [place] pharmacy services. /michell/ NANCY YOUNG RN-BC REGISTERED NURSE Signed: 02/25/2024 16:01 UMESH ANDRADE [place] [facility]
--- OUTSIDE RECORDS SUMMARY | 2024-04-08 09:57 | XMS_ITS ---
Author Name [facility] [place] Organization [place] Address [address] [place] [address] Care Team Providers Care Web Engineer Name Role Phone ARDEN TRENT Primary Care [...] PART A Apr 22, 2001 PART A [id number] JENIFER ANAYA PATIENT MEDICARE (WNR) MEDICARE (M) PART B Apr 22, 2001 PART B [id number] JENIFER ANAYA PATIENT [employer] MEDIGAP PLAN F May 11, 2008 PLANF [id number] JENIFER ANAYA PATIENT Selected Encounter This section includes the information on record at [place] for the Encounter. Date/Time Encounter Type Encounter Description Reason Pro vider Source Mar 13, 2024 02:57 PM Outpatient Encounter [facility] Nursing (RN / LP) IHE Encounter Template Text not used by [place] Plan of Treatment: Future Appointments (+ 6 months) and Future Tests (+/- 45 days) The Plan of Treatment section includes future care activities for the patient from all [place] treatmentfacilities. This section includes future appointments and [...] of theEncounter. The data comes from all [place] treatment facilities. Test Date/Time Test Type Test Details Facility Name Jan 31, 2024 01:42 PM Consult Order COMMUNITY CARE-GEC NON-SKILLED HOME HEALTH AIDE Cons Rn Clinical Documentation's Choice [place] Feb 05, 2024 12:00 AM Laboratory - Chemistry Order CREATININE (eGFR 2020) BLOOD (SST-SERUM) [facility] Feb 05, 2024 12:00 AM Laboratory - Chemistry Order LIVER FUNCTION BLOOD (SST-SERUM) [facility] Feb 05, 2024 12:00 AM Laboratory - Chemistry Order CBC BLOOD (LAV-BLOOD) [facility] Feb 05, 2024 12:00 AM Laboratory - Chemistry Order PT & INR (COUMADIN) BLOOD (BLUE-PLASMA) [facility] Apr 03, 2024 02:43 PM Consult Order [facility] OT NH M/POPC OUTPT Cons Rn Clinical Documentation's Choice [place] [facility] [place] [facility] Apr 03, 2024 02:43 PM Consult Order [facility] NUTRI TION SPOPC OUTPT Cons Rn Clinical Documentation's Choice [place] [facility] [place] [facility] Encounter Notes: All associated encounter notes This section contains the clinical notes associated to the Encounter. Date/Time Encounter Note(s) Provider Source Apr 02, 2024 09:23 PM IMMUNIZATION NOTE: LOCAL TITLE: [place] IMMUNIZATION NOTE STANDARD TITLE: IMMUNIZATION NOTE DATE OF NOTE: APR 02, 2024@21:23:16 ENTRY DATE: APR 02, 2024@21:23:16 AUTHOR: LISA VIVAS EXP COSIGNER: URGENCY: STATUS: COMPLETED Documented: ZOSTER LIVE Historical Date Administered: Jan 08, 2012 Information Source: FROM PATIENT'S WRITTEN RECORD /michell/ LISA VIVAS RN, BSN [facility] WATER FITNESS INSTRUCTOR Signed: 04/02/2024 21:23 LISA VIVAS [place] [facility] [place] [facility] Mar 30, 2024 09:48 PM [facility] NOTE: LOCAL TITLE: [facility] RISK ASSESSMENT STANDARD TITLE: [facility] NOTE DATE OF NOTE: MAR 30, 2024@21:48 ENTRY DATE: APR 02, 2024@21:48:30 AUTHOR: LISA VIVAS EXP COSIGNER: URGENCY: STATUS: COMPLETED Patient Risk Assessment Date: Mar Patient Name: JENIFER ANAYA 4#: [id number] Reason for Risk Assessment: [X] Initial Date Admitted: Mar [ ] Annual [ ] Update VVC Ready: Yes [ ] No [X] Oxygen: Yes [ ] No [X] Smoker: Yes [ ] No [X] Does patient have air conditioning in the home? Yes [X] No [ ] Does patient have reliable heat in the home? Yes [X] No [ ] Complex Wound: Yes [ ] No [X] Kellogg Catheter: Yes [X] No [ ] Type of Equipment: [ ] Liquid Tank: [ ] Concentrator: Exp.Date [ ] Bi-pap: Maintenance Date: [ ] C-pap: Maintenance Date: [ ] Portable Tank: Exp. Date: [ ] Ventilator [ ] Feeding Tube Vendor Name: Phone#: Equipment Requiring Back-Up (list): Does have Back up Generator: Yes [ ] No [X] Risk level for needing in home assistance: [X] Lowest Risk - Live at home with adequate support or in residential housing (e.g. Assistive Living Facility, Penitentiary) - Condition stable medically and/or cognitively with access to informal resources for help and/or independent with ADL's [ ] Moderate Risk for Prolonged Emergency situations (> 5 days) - Medical/Cognitive condition more labile with dependable caregiver support - Bedbound with dependable Caregiver support - Supplemental Oxygen with dependable Caregiver support - Patient is equipment dependent, with dependable caregiver (Ventilator/Tube feedings/Dialysis/Leroy lifts/etc.) [ ] Highest Risk - Lives in single family residence with no caregiver support or caregiver is not likely to provide assistance - Condition unstable medically and/or cognitively, with or without identified caregivers and Patient may deteriorate or require alternative services Comments: /michell/ LISA VIVAS RN, BSN [facility] WATER FITNESS INSTRUCTOR Signed: 04/02/2024 21:49 Receipt Acknowledged By: 04/05/2024 21:04 /michell/ WOODY PHIPPS [facility] AIRCRAFT ENGINE ASSEMBLER LISA [facility]
--- OUTSIDE RECORDS SUMMARY | 2024-04-08 09:57 | XMS_ITS | Encounter Summary ---
Author Name [place] Address [address] [place] [address] Care Team Providers Care Telephonic Nurse Name Role Phone ARDEN TRENT Primary Care [...] PART A Apr 22, 2001 PART A [id number] JENIFER ANAYA PATIENT MEDICARE (WNR) MEDICARE (M) PART B Apr 22, 2001 PART B [id number] JENIFER ANAYA PATIENT [employer] MEDIGAP PLAN F May 11, 2008 PLANF [id number] JENIFER ANAYA PATIENT Selected Encounter This section includes the information on record at [place] for the Encounter. Date/Time Encounter Type Encounter Description Reason Pro vider Source Jan 30, 2024 10:57 AM Outpatient Encounter PRIMARY CARE/MEDICINE IHE Encounter Template Text not used by [...] 20 appointments. The data comes from all [place] treatment facilities. Appointment Date/Time Appointment Type Appointme nt Facility Name Feb 04, 2024 08:00 AM AM[facility]ULATORY [facility] Mar 10, 2024 10:30 AM AMBULATORY - REHAB MEDICIN E [facility] Active, Pending, and Scheduled Orders This section includes a listing of several types of active, pending, and scheduled orders, including clinic medications orders, diagnostic test orders, procedure orders and consult orders; where the start date of the order is 45 days before the date of the Encounter or 45 days after the date of theEncounter. The data comes from all [facility]. Test Date/Time Test Type Test Details Facility Name Jan 31, 2024 01:42 PM Consult Order COMMUNITY CARE-GEC NON-SKILLED HOME HEALTH AIDE Cons Distilling Department Supervisor's Choice [place] Feb 05, 2024 12:00 AM Laboratory - Chemi stry Order CREATININE (eGFR 2020) BLOOD (SST-SERUM) [facility] Feb 05, 2024 12:00 AM Laboratory - Chemi stry Order LIVER FUNCTION BLOOD (SST-SERUM) [facility] Feb 05, 2024 12:00 AM Laboratory - Chemi stry Order CBC BLOOD (LAV-BLOOD) [facility] Feb 05, 2024 12:00 AM Laboratory - Chemi stry Order PT & INR (COUMADIN) BLOOD (BLUE-PLASMA) [facility] Encounter Notes: All associated encounter notes This section contains the clinical notes associated to the Encounter. Date/Time Encounter Note(s) Provider Source Jan 30, 2024 11:05 AM NURSING ADMINISTRA TIVE NOTE: LOCAL TITLE: NON-VA PRESCRIPTION STANDARD TITLE: NURSING ADMINISTRATIVE NOTE DATE OF NOTE: JAN 30, 2024@11:05 ENTRY DATE: JAN 30, 2024@11:05:41 AUTHOR: JENNIFER FU COSIGNER: URGENCY: STATUS: COMPLETED NON-VA PRESCRIPTION Has ADDENDA Received prescription dropped off by Langley's family at [facility] front counter clerk from Dr Yosef Cuello ( )from [facility] at P: [phone] for following medication(s): Rx: apixaban (Eliquis) 5 mg tablet Si mg PO BID; Instructions: Coumadin needs to be stopped 2 days before starting Eliquis Qty: 180 Refills: 3 Diagnosis: atrial fibrillation /michell/ NANCY YOUNG RN-BC REGISTERED NURSE Signed: 01/30/2024 11:09 Receipt Acknowledged By: 02/05/2024 12:26 /michell/ IZAIAH HANKINS MD PRIMARY CARE PHYSICIAN 02/05/2024 ADDENDUM STATUS: COMPLETED I placed pharmacy consultation for anticoagulation outpatient clinic, order labs and order the medication As per cardiology recommendation he supposed to stop Coumadin 2 days prior to start apixaban /michell/ IZAIAH HANKINS MD PRIMARY CARE PHYSICIAN Signed: 02/05/2024 12:30 JENNIFER FU
--- OUTSIDE RECORDS SUMMARY | 2024-04-08 09:57 | XMS_ITS | Encounter Summary ---
Author Name [place] Address [address] [place] [address] Care Team Providers Care Timber Management Technician Name Role Phone ARDEN TERNT Primary Care Provider Unavailabl e Insurance Providers: [...] PART A Apr 22, 2001 PART A [id number] JENIFER MENA PATIENT MEDICARE (WNR) MEDICARE (M) PART B Apr 22, 2001 PART B [id number] JENIFER MENA PATIENT [employer] MEDIGAP PLAN F May 11, 2008 PLANF [id number] JENIFER MENA PATIENT Selected Encounter This section includes the information on record at [place] for the Encounter. Date/Time Encounter Type Encounter Description Reason Provider Source Jan 30, 2024 09:50 AM Outpatient Encounter TELEPHONE/GERIATRIC S GRACE LOGAN IHGumaro Encounter Template Text not used by [place] Plan of Treatment: Future Appointments (+ 6 months) and Future Tests (+/- 45 days) The Plan of Treatment section includes future care activities for the patient from all [place] [facility]. This section includes future appointments and future orders which are active, pending or scheduled. Future Appointments This section includes appointments that were scheduled to occur 6 months from the date of the Encounter, up to a maximum of 20 appointments. The data comes from all [place] treatment facilities. Appointment Date/Time Appointment Type Appointme nt Facility Name Feb 04, 2024 08:00 AM AMBULATORY - MEDICINE [place] [facility] Mar 10, 2024 10:30 AM [facility] Active, Pending, and Scheduled Orders This section includes a listing of several types of active, pending, and scheduled orders, including clinic medications orders, diagnostic test orders, procedure orders and consult orders; where the start date of the order is 45 days before the date of the Encounter or 45 days after the date of theEncounter. The data comes from all [facility]. Test Date/Time Test Type Test Details Facility Name Jan 31, 2024 01:42 PM Consult Order COMMUNITY CARE-GEC NON-SKILLED HOME HEALTH AIDE Cons Cell Maker[facility] Choice [place] Feb 05, 2024 12:00 AM Laboratory - Chemi stry Order CREATININE (eGFR 2020) BLOOD (SST-SERUM) [facility] Feb 05, 2024 12:00 AM Laboratory - Chemi stry Order LIVER FUNCTION BLOOD (SST-SERUM) [facility] Feb 05, 2024 12:00 AM Laboratory - Chemi stry Order CBC BLOOD (LAV-BLOOD) [facility] Feb 05, 2024 12:00 AM Laboratory - Chemi stry Order PT & INR (COUMADIN) BLOOD (BLUE-PLASMA) [facility] Encounter Notes: All associated encounter notes This section contains the clinical notes associated to the Encounter. Date/Time Encounter Note(s) Provider Source Jan 30, 2024 09:50 AM GERIATRIC MEDICINE NOTE: LOCAL TITLE: PERSONAL CARE SERVICES CASE MIX TOOL STANDARD TITLE: GERIATRIC MEDICINE NOTE DATE OF NOTE: JAN 30, 2024@09:50:09 ENTRY DATE: JAN 30, 2024@09:50:09 AUTHOR: LAURA LOGAN COSIGNER: URGENCY: STATUS: COMPLETED PERSONAL CARE SERVICES CASE MIX TOOL Has ADDENDA HCBS Case Mix & Budget Tool (CASE MIX) Date Given: 01/30/2024 Clinician: Laura Logan Location: [facility]/telephone Rn Lanagan: Jenifer Mena SSN: [id number] : [birth year] ([birth year]) Gender: Male Type of Evaluation: Annual Anticipated Start Date: 01/30/2024 Anticipated Length of Service: 12 months Case Mix Level: I ADL Category: High Questions and Answers: Q1. DRESSING *2 Need some help from another person to put your clothes on. Q2. GROOMING *2 Needs and get daily help from another person. Q3. BATHING *5 Cannot bathe or shower, need complete help. Q4. EATING *3 Need and get some personal help with feeding or someone needs to be sure that you don't choke. Q5. BED MOBILITY 0 Can move in bed without any help. Q6. TRANSFERRING *2 Need one other person to help you. Q7. WALKING *2 Need and get help from one person to help you walk. Q8. BEHAVIOR 1 Occasional staff intervention / anxious, irritable, lethargic, demanding / responds to cues. Q9. COMMUNICATION 0 Understood. Q10. TOILETING *6 Wet your pants and have bowel movements in your clothes very often. Q11. MDS HC 2.0/CPS Cognitive Skill for Daily Decision Making 1 Modified [place] - some difficulty in new situations only. Q12. MDS 2.0/CPS: Short Term Memory (recall of what was learned or known) 1 Memory problem Q13. SPECIAL TREATMENTS 2 One or more [place] such as: 10. Skin Care, 8. Ostomies & Catheters Q14. CLINICAL MONITORING 0 Less than once a day Q15. SPECIAL NURSING No Q16. NEUROMUSCULAR DIAGNOSIS No COMMENTS Oanh BARBER SW called for .He has a supra pubic catheter. Ihsan grandson is preferred ESCROW SECRETARY [phone].Authorize ELECTRICAL TRANSMISSION ENGINEER 13 hrs/week for asssitance with pc/adl's/iadl's includes respite. Please place [facility] ELECTRICAL TRANSMISSION ENGINEER consult for . SOURCES 1. Person, 2. Informant /michell/ Laura Logan RN RN Signed: 01/30/2024 09:56 Receipt Acknowledged By: 01/30/2024 10:55 /es/ NANCY YOUNG RN- REGISTERED NURSE 02/04/2024 15:08 /es/ IZAIAH HANKINS MD PRIMARY CARE PHYSICIAN 01/30/2024 ADDENDUM STATUS: COMPLETED [facility] services will accept consult when signed and will be in to with Ihsan helton working as Caregiver for . /michell/ Laura Logan RN RN Signed: 01/30/2024 15:28 LAURA LOGAN [facility]
--- OUTSIDE RECORDS SUMMARY | 2024-04-08 09:57 | XMS_ITS ---
Author Name [place] Address [address] [place] [address] Care Team Providers Care Pasteurizer Name Role Phone ARDEN TRENT Primary Care [...] PART A Apr 22, 2001 PART A [id number] JENIFER ANAYA PATIENT MEDICARE (WNR) MEDICARE (M) PART B Apr 22, 2001 PART B [id number] JENIFER ANAYA PATIENT Mir Tesen CITIZEN OF [employer] MEDIGAP PLAN F May 11, 2008 PLANF [id number] 03 JENIFER ANAYA PATIENT Selected Encounter This section includes the information on record at [place] for the Encounter. Date/Time Encounter Type Encounter Description Reason Pro vider Source Feb 27, 2024 01:49 PM Outpatient Encounter ADMIN PAT ACTIVTIES (MASNONCT) IHE Encounter Template Text not used by [place] Plan of Treatment: Future Appointments (+ 6 months) and Future Tests (+/- 45 days) The Plan of Treatment section includes future care activities for the patient from all [place] treatmentfacilities. This section includes future appointments and future orders which are active, pending or scheduled. Future Appointments This section includes appointments that were scheduled to occur 6 months from the date of the Encounter, up to a maximum of 20 appointments. The data comes from all [place] treatment facilities. Appointment Date/Time Appointment Type Appointme nt Facility Name Mar 10, 2024 10:30 AM AMBULATORY - REHAB MEDICIN E [facility] Active, Pending, and Scheduled Orders This section includes a listing of several types of active, pending, and scheduled orders, including clinic medications orders, diagnostic test orders, procedure orders and consult orders; where the start date of the order is 45 days before the date of the Encounter or 45 days after the date of theEncounter. The data comes from all [place] treatment facilities. Test Date/Time Test Type Test Details Facility Name Jan 31, 2024 01:42 PM Consult Order COMMUNITY CARE-GEC NON-SKILLED HOME HEALTH AIDE Cons Operations And Maintenance Manager[facility] [place] Feb 05, 2024 12:00 AM Laboratory - Chemistry Order CREATININE (eGFR 2020) BLOOD (SST-SERUM) [facility] Feb 05, 2024 12:00 AM Laboratory - Chemistry Order LIVER FUNCTION BLOOD (SST-SERUM) [facility] Feb 05, 2024 12:00 AM Laboratory - Chemistry Order CBC BLOOD (LAV-BLOOD) [facility] Feb 05, 2024 12:00 AM Laboratory - Chemistry Order PT & INR (COUMADIN) BLOOD (BLUE-PLASMA) [facility] Apr 03, 2024 02:43 PM Consult Order HBPC OT [place] M/POPC OUTPT Cons Operations And Maintenance [facility] [place] [facility] Apr 03, 2024 02:43 PM Consult Order HBPC NUTRI TION SPOPC OUTPT Cons Operations And Maintenance Manager[facility] Encounter Notes: All associated encounter notes This section contains the clinical notes associated to the Encounter. Date/Time Encounter Note(s) Provider Source Feb 27, 2024 01:49 PM ADMINISTRATIVE NOT E: LOCAL TITLE: CCC: SCHEDULING ADMINISTRATION STANDARD TITLE: ADMINISTRATIVE NOTE DATE OF NOTE: FEB 27, 2024@13:49:46 ENTRY DATE: FEB 27, 2024@13:49:47 AUTHOR: PARE,ANA L EXP COSIGNER: URGENCY: STATUS: COMPLETED CCC: SCHEDULING ADMINISTRATION Has ADDENDA Patient Demographics Patient Name: JENIFER ANAYA Patient Primary Phone: [phone] Patient Primary Address: [place] [address] Patient : 1935 Patient Age: 88 Call Back Number: [phone] Caller/Recipient Relation to Patient: Self Administrative Administrative Note Reason: Other Administrative Note Comments: calling to follow up from 02/25/24 phone call and looking to speak to PACT. [place] is also inquiring about walk in tub and additional assistance hours. Please call at [phone] IMPORTANT: This note was created by [facility] Clinical Contact Center staff. Please do not alert the staff member by adding them as a signer for future communications. Alerts are not monitored by this user. /michell/ ANA COOLEY Signed: 02/27/2024 13:49 Receipt Acknowledged By: 02/27/2024 15:23 /michell/ NANCY YOUNG RN-BC REGISTERED NURSE 02/28/2024 08:49 /michell/ MARY MON LPN Licensed Practical Nurse 02/27/2024 ADDENDUM STATUS: COMPLETED Called and he reports that he is looking for assistance. [place] reports that he is taking glucerna and inquiring about converting his tub to a walk in tub. Author provided him a direct call back number to provide to his grandson to contact OT dept to follow up and schedule appt to discuss [place]'s needs. /michell/ NANCY YOUNG RN-BC REGISTERED NURSE Signed: 02/27/2024 15:37 ANA COOLEY [facility]
--- OUTSIDE RECORDS SUMMARY | 2024-04-08 09:57 | XMS_ITS ---
Author Name Department [place] Organization [place] Address [address] [place] [address] Care Team Providers Care Equal Opportunity Representative Name Role Phone ARDEN TRENT Primary Care [...] PART A Apr 22, 2001 PART A [id number] JENIFER ANAYA PATIENT MEDICARE (WNR) MEDICARE (M) PART B Apr 22, 2001 PART B [id number] JENIFER ANAYA PATIENT [employer] MEDIGAP PLAN F May 11, 2008 PLANF [id number] JENIFER ANAYA PATIENT Selected Encounter This section includes the information on record at [place] for the Encounter. Date/Time Encounter Type Encounter Description Reason Pro vider Source Jan 30, 2024 10:14 AM Outpatient Encounter ADMIN PAT ACTIVTIES (MASNONCT) I[facility] Encounter Template Text not used by [place] Plan of Treatment: Future Appointments (+ 6 months) and Future Tests (+/- 45 days) The Plan of Treatment section includes future care activities for the patient from all [place] [facility]. This section includes future appointments and future orders which are active, pending or scheduled. Future Appointments This section includes appointments that were scheduled to occur 6 months from the date of the Encounter, up to a maximum of 20 appointments. The data comes from all [place] treatment facilities. Appointment Date/Time Appointment Type Appointme nt Facility Name Feb 04, 2024 08:00 AM AMBULATORY - MEDICINE [place] [facility] Mar 10, 2024 10:30 AM [facility] Active, Pending, and Scheduled Orders This section includes a listing of several types of active, pending, and scheduled orders, including clinic medications orders, diagnostic test orders, procedure orders and consult orders; where the start date of the order is 45 days before the date of the Encounter or 45 days after the date of theEncounter. The data comes from all [place] treatment [facility]. Test Date/Time Test Type Test Details Facility Name Jan 31, 2024 01:42 PM Consult Order COMMUNITY CARE-GEC NON-SKILLED HOME HEALTH AIDE Cons Director Plans[facility] Choice [place] Feb 05, 2024 12:00 AM Laboratory - Chemi stry Order CREATININE (eGFR 2020) BLOOD (SST-SERUM) [facility] Feb 05, 2024 12:00 AM Laboratory - Chemi stry Order LIVER FUNCTION BLOOD (SST-SERUM) [facility] Feb 05, 2024 12:00 AM Laboratory - Chemi stry Order CBC BLOOD (LAV-BLOOD) [facility] Feb 05, 2024 12:00 AM Laboratory - Chemi stry Order PT & INR (COUMADIN) BLOOD (BLUE-PLASMA) [facility] Encounter Notes: All associated encounter notes This section contains the clinical notes associated to the Encounter. Date/Time Encounter Note(s) Provider Source Jan 30, 2024 10:14 AM ADMINISTRATIVE NOTE: LOCAL TITLE: CCC: SCHEDULING ADMINISTRATION STANDARD TITLE: ADMINISTRATIVE NOTE DATE OF NOTE: JAN 30, 2024@10:14:09 ENTRY DATE: JAN 30, 2024@10:14:10 AUTHOR: WILLIAM WILSON COSIGNER: URGENCY: STATUS: COMPLETED CCC: SCHEDULING ADMINISTRATION Has ADDENDA Patient Demographics Patient Name: JENIFER ANAYA Patient Primary Phone: [phone] Patient Primary Address: [place] [address] Patient : 1935 Patient Age: 88 Call Back Number: [phone] Caller/Recipient Relation to Patient: Other If Other Describe Relation to Patient: JOLENE BARBER Caller Name: Jes Administrative Administrative Note Reason: Other Administrative Note Comments: Jes - JOLENE BARBER called to request depends in a size Large for this . Jes is also asking if his referral for a forklift operator was placed as the [facility] [place] hasn't heard from any forklift operator. Jes is requesting a call back from PACT, Jes mentioned if she cannot be reach to please contact the Sadia Fletcher. Sadia FERNÁNDEZ was offered to speak with [facility] nurse triage and declined to be transferred. Sadia FERNÁNDEZ informed that response from primary care would not be immediate and could take up to 3 business days. IMPORTANT: This note was created by [facility] Clinical Contact Center staff. Please do not alert the staff member by adding them as a signer for future communications. Alerts are not monitored by this user. /es/ WILLIAM BURGOSN1 [facility] AMSA Signed: 01/30/2024 10:14 Receipt Acknowledged By: 01/30/2024 11:18 /es/ TANIYA YOUNGN RN-BC REGISTERED NURSE 01/30/2024 11:20 /es/ MARY MON LPN Licensed Practical Nurse 01/30/2024 ADDENDUM STATUS: COMPLETED Called 's sonChristina on communication auth form. Christina is requesting depends incontinence briefs size large for due to occasional bowel incontinence. Christina reports that uses up to 2 briefs a day. Author advised can place order for these products for PCP to review. Chrisitna also advised that his son stays with majority of time but is not there all of the time. Christina inquired into life alert system. Author advised that Guardian alert system can be ordered for [facility] [place] and mailed to home and Christina advised that [facility] does have landline in home. Christina inquired into nutritional supplements for [facility] [place]. Author advised that [place] forklift operator lining finisher has been trying to reach by phone call and letter but has not received response for scheduling. Christina requested that his contact number be provided for communication to assist with scheduling [place]'s forklift operator appt. Author also advised Christina that PACT has received apixiban script and that it has been sent to pcp for review. /michell/ TANIYA YOUNGN RN-BC REGISTERED NURSE Signed: 01/30/2024 11:31 WILLIAM WILSON [facility]
--- OUTSIDE RECORDS SUMMARY | 2024-04-08 09:57 | XMS_ITS | Encounter Summary ---
Author Name Department [place] Organization [place] Address [address] [place] [address] Care Team Providers Care Clinical Quality Assurance Specialist Name Role Phone ARDEN TRENT Primary Care Provider Unavailholden e Insurance Providers: All historical and current [...] PART A Apr 22, 2001 PART A [id number] JENIFER ANAYA PATIENT MEDICARE (WNR) MEDICARE (M) PART B Apr 22, 2001 PART B [id number] JENIFER ANAYA PATIENT [employer] MEDIG[employer] PLAN F May 11, 2008 PLANF [id number] JENIFER ANAYA PATIENT Selected Encounter This section includes the information on record at [place] for the Encounter. Date/Time Encounter Type Encounter Description Reason Provider Source Mar 12, 2024 08:31 AM MTMS BY PHARM EST 15 MIN TELEPHONE/ANCILLA MARTINE ICD-10-CM Z51.81 Encounter for therapeutic drug level monitoring ROBIN RAYMUNDO Encounter Template Text not used by [place] Assessments - Encounter Diagnoses This section includes the primary and secondary diagnoses documented for the Encounter. 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 This section includes future appointments and [...] of theEncounter. The data comes from all [place] treatment facilities. Test Date/Time Test Type Test Details Facility Name Jan 31, 2024 01:42 PM Consult Order COMMUNITY CARE-GEC NON-SKILLED HOME HEALTH AIDE Cons Cardiology Rn's Choice [place] Feb 05, 2024 12:00 AM Laboratory - Chemistry Order CREATININE (eGFR 2020) BLOOD (SST-SERUM) [facility] Feb 05, 2024 12:00 AM Laboratory - Chemistry Order LIVER FUNCTION BLOOD (SST-SERUM) [facility] Feb 05, 2024 12:00 AM Laboratory - Chemistry Order CBC BLOOD (LAV-BLOOD) [facility] Feb 05, 2024 12:00 AM Laboratory - Chemistry Order PT & INR (COUMADIN) BLOOD (BLUE-PLASMA) [facility] Apr 03, 2024 02:43 PM Consult Order HBPC OT [place] M/POPC OUTPT Cons Cardiology Rn[facility] [place] [facility] Apr 03, 2024 02:43 PM Consult Order HBPC NUTRI TION SPOPC OUTPT Cons Cardiology Rn[facility] Choice [facility] [place] [facility] Encounter Notes: All associated encounter notes This section contains the clinical notes associated to the Encounter. Date/Time Encounter Note(s) Provider Source Mar 12, 2024 08:31 AM PHARMACY MEDICATIO N MGT NOTE: LOCAL TITLE: PHARMACY ANTICOAGULATION NOTE STANDARD TITLE: PHARMACY MEDICATION MGT NOTE DATE OF NOTE: MAR 12, 2024@08:31 ENTRY DATE: MAR 12, 2024@08:31:20 AUTHOR: MERCEDEZ RAYMUNDO COSIGNER: URGENCY: STATUS: COMPLETED Follow-up: Anticoagulation DOAC Agent Progress Note Reason for visit: 4 week Apixaban/Eliquis Indication: atrial fibrillation Start Date: to be determined Expected Duration: Indefinite Referring Provider: Dr. Peres Patient Contact: Home: Patient has given permission to leave anticoagulation message on answering machine or with person listed. Subjective: Spoke with pt for 4-week follow-up of apixaban. He notes he is doing well. Offers no complaints. He denies missed doses of medications with the help of VNA hash slinger prefills (has [facility] RN 1-2x/week with INR checks); hx of 1-2 beers a day but none for the last 12 weeks. No upcoming surgeries/procedures. Uses acetaminophen only for pain. Pt has Oanh BARBER RN Natalie Josue (personal phone: [phone], main office to [facility]: [phone]). Apixaban: Missed Doses: No Last Refill: 02/06/24 Refill Needed: No Administration Time: Q12 hours - has RN prefill medications and visits 1+ times a week; kory segundo Bleeding: No Dizziness/Vision Changes/Extremity Weakness: No Med Changes: No Alcohol: No Storage of Medication: Appropriate Surgeries/Procedures: No Other: (Optional) Objective: Labs: Patient reports outside Hgb results: Date: November 21, 2023 Results: 10.3 Location: Outside Healthcare Provider Patient reports outside HCT results: Date: November 21, 2023 Results: 32.2 Location: Outside Healthcare Provider Patient reports outside PLT results: Date: November 21, 2023 Results: 330 Location: Outside Healthcare Provider Patient reports outside SCR results: Date: November 21, 2023 Results: 0.91 Location: Outside Healthcare Provider Patient reports outside BUN results: Date: November 21, 2023 Results: 24 Location: Outside Healthcare Provider Patient reports outside ALT results: Date: November 16, 2023 Results: 11 Location: Outside Healthcare Provider Patient reports outside AST results: Date: November 16, 2023 Results: 12 Location: Outside Healthcare Provider CRCL IBW: 61.1mL/min CRCL ACT: 61.1mL/min CRCL ADJ: 61.1mL/min LFTs WNL Vitals: Weight 75.50 kg per JLV 11/21/23 (BMI): BMI: 22.6 Height: 72 inches per JLV 11/21/23 Active Outpatient Medications (including Supplies): APIXABAN 5MG TAB TAKE ONE TABLET BY MOUTH EVERY 12 HOURS ACTIVE FOR ATRIAL FIBRILLATION DEPEND UNDERWEAR,MAXIMUM,MEN LARGE USE 1 BRIEF DIRECTED ACTIVE TWICE DAILY NEEDED Non-VA ACETAMINOPHEN 500MG TAB 1000MG BY MOUTH TWICE DAILY ACTIVE NEEDED Non-VA AMIODARONE HCL 200MG TAB 400MG BY MOUTH TWICE DAILY ACTIVE Non-VA ATORVASTATIN CALCIUM 80MG TAB 40MG BY MOUTH ONCE ACTIVE DAILY Non-VA FINASTERIDE 5MG TAB 5MG BY MOUTH ONCE DAILY ACTIVE Non-VA FUROSEMIDE 20MG TAB 20MG BY MOUTH ONCE DAILY ACTIVE Non-VA METFORMIN HCL 1000MG TAB 1000MG BY MOUTH TWICE ACTIVE DAILY Non-VA SPIRONOLACTONE 25MG TAB 25MG BY MOUTH ONCE DAILY ACTIVE Non-VA TAMSULOSIN HCL 0.4MG CAP 0.4MG BY MOUTH ONCE DAILY ACTIVE Non-VA WARFARIN (NON-VA) TAB 3 MG BY MOUTH ONCE DAILY ACTIVE Interacting Meds: -- no longer taking warfarin Assessment/Plan: - Pt taking medication appropriately - Continue : Apixaban 5mg twice daily Time Spent: 7 mins Next Appt: N/A - D/C TO PASSIVE MONITORING Next PCP Appt: Unable to see next EDUCATION Provided with verbal instructions: Yes Provided with written instructions: No Barriers to learning: No Readiness to learn: Yes Specific dose directions reviewed: Yes Opportunity for questions/discussion: Yes Reports understanding of instructions: Yes Further learning needs: No /michell/ Mercedez Raymundo PharmD, [facility] Clinical Microfilm Operator Signed: 03/12/2024 08:37 Receipt Acknowledged By: 03/12/2024 08:53 /michell/ MAUREEN PARIS CPHT Clinical Ink Printer MERCEDEZ RAYMUNDOANDRIA [facility]
--- OUTSIDE RECORDS SUMMARY | 2024-04-08 09:57 | XMS_ITS | Encounter Summary ---
Author Name [facility] Organization [facility] Address [address] [place] [address] Care Team Providers Care Evaporator Name Role Phone ARDEN TRENT Primary Care [...] PART A Apr 22, 2001 PART A [id number] JENIFER ANAYA PATIENT MEDICARE (WNR) MEDICARE (M) PART B Apr 22, 2001 PART B [id number] JENIFER ANAYA PATIENT [employer] PL[employer] F May 11, 2008 PLANF [id number] JENIFER ANAYA PATIENT Selected Encounter This section includes the information on record at [place] for the Encounter. Date/Time Encounter Type Encounter Description Reason Provider Source Jan 30, 2024 02:51 PM HC PRO PHONE CALL 5-10 MIN TELEPHONE CASE MANAGEMENT ICD-10-CM Z74.1 Need for assistance with personal care ITALO MONTGOMERY Encounter Template Text not used by [place] Assessments - Encounter Diagnoses This section includes the primary and secondary diagnoses documented for the Encounter. Date/Time Primary/Secondary Diagnosis Diagnosis Name Provider Source Jan 30, 2024 02:51 PM PRIMARY Need for assistance with personal care ITALO MONTGOMERY [place] Plan of Treatment: Future Appointments (+ 6 months) and Future Tests (+/- 45 days) The Plan of Treatment section includes future care activities for the [facility] [place] [facility]. This section includes future appointments and future orders which are active, pending or scheduled. Future Appointments This section includes appointments that were scheduled to occur 6 months from the date of the Encounter, up to a maximum of 20 appointments. The data comes from all [place] treatment facilities. Appointment Date/Time Appointment Type Appointme nt Facility Name Feb 04, 2024 08:00 AM [facility] [place] [facility] Mar 10, 2024 10:30 AM [facility] Active, Pending, and Scheduled Orders This section includes a listing of several types of active, pending, and scheduled orders, including clinic medications orders, diagnostic test orders, procedure orders and consult orders; where the start date of the order is 45 days before the date of the Encounter or 45 days after the date of theEncounter. The data comes from all [facility]. Test Date/Time Test Type Test Details Facility Name Jan 31, 2024 01:42 PM Consult Order [facility] NON-SKILLED HOME HEALTH AIDE Cons [employer] Developer's Choice [place] Feb 05, 2024 12:00 AM Laboratory - [...] (COUMADIN) BLOOD (BLUE-PLASMA) [facility] Social History: Smoking Status (Most current) and Tobacco Use (All prior to encounter date) This section includes the most current, and the historical, smoking and tobacco- related health factors from the [place] facility where the Encounter took place. Current Smoking Status This section includes the most current smoking, or tobacco-related health factor, from the [place] facility where the Encounter took place. Date/Time Current Smoking Status Comment Daniel case Jan 16, 2024 01:00 PM VA-TOBACCO FORMER USER [place] Tobacco Use History This section includes a history of the smoking, or tobacco-related health factors, that were collected on or before the date of the Encounter. The data comes from the [place] facility where the Encounter took place. Date/Time Smoking Status/Tobacco Use Comment Sabrina arnold Jan 16, 2024 01:00 PM VA-TOBACCO QUIT 15 YRS OR MORE [place] Encounter Notes: All associated encounter notes This section contains the clinical notes associated to the Encounter. Date/Time Encounter Note(s) Provider Source Feb 04, 2024 11:08 AM ADDENDUM: LOCAL TITLE: Addendum STANDARD TITLE: ADDENDUM DATE OF NOTE: FEB 04, 2024@11:08:57 ENTRY DATE: FEB 04, 2024@11:08:58 AUTHOR: SHELLEY HERBERT COSIGNER: URGENCY: STATUS: COMPLETED Adding special needs child caregiver. /michell/ DIEGO BROWN [facility] Bulk Delivery Driver Signed: 02/04/2024 11:09 Receipt Acknowledged By: 02/06/2024 16:32 /michell/ NANCY YOUNG RN-BC REGISTERED NURSE --- Original Document --- 01/30/24 SOCIAL WORK NOTE: SW reached out and spoke with [place] regarding process to receive catastrophic disability through the [facility]. SW reviewed benefits of receiving catastrophic disability through the [facility] regarding assistance with copays. stated that he is interested in pursuing process for catastrophic disability. SW reviewed 's ADL needs and completed [place] scale for ADLs with . Catastrophic disability form was emailed to PCP for review and signature if appropriate. /michell/ CORDELL Lobo, [facility] Bulk Delivery Driver Signed: 01/30/2024 15:10 Receipt Acknowledged By: 02/05/2024 12:24 /michell/ IZAIAH HANKINS MD PRIMARY CARE PHYSICIAN 02/05/2024 ADDENDUM STATUS: COMPLETED form was signed /seven HANKINS MD PRIMARY CARE PHYSICIAN Signed: 02/05/2024 12:24 SHELLEY HERBERT Jan 30, 2024 02:51 PM SOCIAL WORK NOTE: LOCAL TITLE: SOCIAL WORK NOTE STANDARD TITLE: SOCIAL WORK NOTE DATE OF NOTE: JAN 30, 2024@14:51 ENTRY DATE: JAN 30, 2024@14:51:52 AUTHOR: ITALO MONTGOMERY COSIGNER: URGENCY: STATUS: COMPLETED SOCIAL WORK NOTE Has ADDENDA SW reached out and spoke with [place] regarding process to receive catastrophic disability through the [facility]. SW reviewed benefits of receiving catastrophic disability through the [facility] regarding assistance with copays. stated that he is interested in pursuing process for catastrophic disability. SW reviewed 's ADL needs and completed [place] scale for ADLs with [place]. Catastrophic disability form was emailed to PCP for review and signature if appropriate. /CORDELL Morales LICSW Bulk Delivery Driver Signed: 01/30/2024 15:10 Receipt Acknowledged By: 02/05/2024 12:24 /seven HANKINS MD PRIMARY CARE PHYSICIAN 02/04/2024 ADDENDUM STATUS: COMPLETED Adding special needs child caregiver. /michell/ [facility] Bulk Delivery Driver Signed: 02/04/2024 11:09 Receipt Acknowledged By: 02/06/2024 16:32 /michell/ TANIYA YOUNGN RN-BC REGISTERED NURSE 02/05/2024 ADDENDUM STATUS: COMPLETED form was signed /seven HANKINS MD PRIMARY CARE PHYSICIAN Signed: 02/05/2024 12:24 02/07/2024 ADDENDUM STATUS: COMPLETED On 02/05/24, JOLENE reviewed electronic process for catastrophic disability with PCP. /CORDELL Morales LICSW Bulk Delivery Driver Signed: 02/07/2024 14:53 02/14/2024 ADDENDUM STATUS: COMPLETED JOLENE awaiting PCP availability to continue catastrophic disability process for . /CORDELL Morales LICSW Bulk Delivery Driver Signed: 02/14/2024 09:10 02/19/2024 ADDENDUM STATUS: COMPLETED JOLENE received signed catastrophic disability form from PCP. Email sent for additional signature. /seven Toro CORDELL Montgomery, [facility] Bulk Delivery Driver Signed: 02/19/2024 12:21 ITALO MONTGOMERY
--- OUTSIDE RECORDS SUMMARY | 2024-04-08 09:57 | XMS_ITS | Encounter Summary ---
Author Name [facility] Organization [facility] [place] Address [address] [place] [id number] Care Team Providers Care Scientific Laboratory Supervisor Name Role Phone ARDEN TRENT Primary Care [...] PART A Apr 22, 2001 PART A [id number] JENIFER ANAYA PATIENT MEDICARE (WNR) MEDICARE (M) PART B Apr 22, 2001 PART B [id number] JENIFER ANAYA PATIENT [employer] F May 11, 2008 PLANF [id number] JENIFER ANAYA PATIENT Selected Encounter This section includes the information on record at [place] for the Encounter. Date/Time Encounter Type Encounter Description Reason Provider Source Feb 06, 2024 09:33 AM MTMS BY PHARM ADDL 15 MIN TELEPHONE/ANCILLA RY ICD-10-CM I48.91 Unspecified atrial fibrillation SVETLANA RAYMUNDO IHGumaro Encounter Template Text not used by [place] Assessments - Encounter Diagnoses This section includes the primary and secondary diagnoses documented for the Encounter. Date/Time Primary/Secondary Diagnosis Diagnosis Name Provider Source Feb 06, 2024 09:33 AM PRIMARY Unspecified atrial fibrillation ROBIN [facility] Plan of Treatment: Future Appointments (+ 6 months) and Future Tests (+/- 45 days) The Plan of Treatment section includes future care activities for the [facility] This section includes future appointments and future orders which are active, pending or scheduled. Future Appointments This section includes appointments that were scheduled to occur 6 months from the date of the Encounter, up to a maximum of 20 appointments. The data comes from all [place] treatment facilities. Appointment Date/Time Appointment Type Appointme nt Facility Name Mar 10, 2024 10:30 AM AMBULATORY - [facility] Active, Pending, and Scheduled Orders This section [...] [facility] NON-SKILLED HOME HEALTH AIDE Cons [facility] Feb 05, 2024 12:00 AM Laboratory - Chemi stry Order CREATININE (eGFR 2020) BLOOD (SST-SERUM) [facility] Feb 05, 2024 12:00 AM Laboratory - Chemi stry Order LIVER FUNCTION BLOOD (SST-SERUM) [facility] Feb 05, 2024 12:00 AM Laboratory - Chemi stry Order CBC BLOOD (LAV-BLOOD) [facility] Feb 05, 2024 12:00 AM Laboratory - Chemi stry Order PT & INR (COUMADIN) BLOOD (BLUE-PLASMA) [facility] Encounter Notes: All associated encounter notes This section contains the clinical notes associated to the Encounter. Date/Time Encounter Note(s) Provider Source Feb 13, 2024 12:43 PM ADDENDUM: LOCAL TITLE: Addendum STANDARD TITLE: ADDENDUM DATE OF NOTE: FEB 13, 2024@12:43:03 ENTRY DATE: FEB 13, 2024@12:43:04 AUTHOR: PACK,ADITIYA EXP COSIGNER: URGENCY: STATUS: COMPLETED Received call from ELISABETH Estrada. Reports INR was 1.8. Instructed to start apixaban this evening. Declines medication disposal envelope. All questions answered. Prefers we call her for 4 week f/u (personal phone: [phone], main office to [facility]: [phone]). An INR was performed by a lab outside the [place]. Documentation of INR done outside this [facility]: INR Result: 1.8 Date COLLECTED: February 13, 2024 Location: Outside Healthcare Provider [facility] Outside INR results received via point of care. Will update schedule to reflect 4 week f/u on 03/12/24 /seven PACK PHARMD, [facility] CLINICAL PHARMACIST PRACTITIONER Signed: 02/13/2024 12:45 Receipt Acknowledged By: 02/13/2024 13:05 /es/ MIAN URIAS Clinical Fire Prevention Bureau Captain --- Original Document --- 02/06/24 CONSULT REPORT/ANTICOAGULATION CLINIC: Initial Note: Anticoagulation DOAC Agent Progress Note Reason for visit: Initial Education for Apixaban/Eliquis Indication: atrial fibrillation Start Date: to be determined Expected Duration: Indefinite Referring Provider: Dr. Peres Patient Contact: Home: Patient has given permission to leave anticoagulation message on answering machine or with person listed. Subjective: [place] received Rx for apixaban from non[facility] Cardiology. Labs drawn within the last 90 days found JLV. Reviewed this with pt - he is expecting to make the transition from warfarin to apixaban. We reviewed the difference between warfarin and apixaban at length today. All education re: apixaban provided today to pt. He denies missed doses of medications with the help of [facility] getter welder prefills (has [facility] RN 1-2x/week with INR checks); hx of 1-2 beers a day but none for the last 8 weeks. No upcoming surgeries/procedures. Uses acetaminophen only for pain. He was not able to review all medications today - asks that we talk with [facility] re: medications. Call placed to Oanh Josue (personal phone: [phone], main office to [facility]: [phone]) to review this transition. Detailed voice message left for Natalie with contact information for [place] [facility]. Advised pt that [place] will be mailing apixaban Rx to pt. Once Rx received, will have pt set Rx aside for RN/anticoagulation clinic review. Once Rx is delivered and [facility] alerted, will plan for warfarin hold x2 days with repeat INR. Will coordinate all of this with ELISABETH RN. Labs: Patient reports outside Hgb results: Date: [...] LFTs WNL Vitals: Weight 75.50 kg per [facility] 11/21/23 (BMI): BMI: 22.6 Height: 72 inches per [facility] 11/21/23 Active Outpatient Medications (including Supplies): APIXABAN 5MG TAB TAKE ONE TABLET BY MOUTH EVERY 12 HOURS PENDING DEPEND UNDERWEAR,MAXIMUM,MEN LARGE USE 1 BRIEF DIRECTED [...] MOUTH ONCE DAILY ACTIVE Interacting Meds: -- warfarin: will be stopping warfarin and transitioning to apixaban -- amiodarone: potential for increase in apixaban concentrations, no other interacting medications found, therefore no action needed Apixaban: The patient was provided with the following education: -- Purpose of Apixaban -- Signs and symptoms of stroke and thrombosis and what to do should they occur -- Medication Identification -- Dosing recommendations -Apixaban may be taken with or without food -Apixaban may be crushed -- Storage recommendations -Store medication in a dry area at room temperature -- Recommendations for missed doses or overdosage -- Importance of medication compliance and avoiding lapses in therapy to minimize the risk of stroke -- Monitor for signs/symptoms of bleeding, including: -Orion or brown urine -Red or black tarry stools -Coughing up blood -Vomiting blood or vomit that looks like coffee grounds -Reoccurring nosebleeds -Unusual bleeding from the gums -Bleeding from a cut that does not stop -Headaches, dizziness or weakness -- Contact this clinic or provider if patient experiences and serious or intolerable adverse effects -- Review risks associated with falling -- Which medications to avoid due to drug interactions -- Importance of notifying all providers of any medication patient is taking or changes that may occur -- What to do if patient wants to discontinue therapy -- Contact this clinic or provider if scheduled for a procedure -- Contact number for the [facility] provided Assessment/Plan: - [facility] provided education re: apixaban vs. warfarin - Apixaban Rx to be processed for mail - Upon receipt, pt to set Rx aside and not start until reviewing with [facility] - Once apixaban on hand, will coordinate transition with [facility] RN which will involve warfarin hold x2 days, repeat INR, potential to start apixaban Time Spent: 20 mins Next Appt: Jan to track apixaban Rx, attempt [facility] RN again if no call back sooner WILL ASK FOR [facility] ELECTRICAL ENGINEER TO PLEASE MAIL APIXABAN/ATRIAL FIBRILLATION HANDOUT TO PT Next PCP Appt: Unable to see next EDUCATION Provided with verbal instructions: Yes Provided with written instructions: No Barriers to learning: No Readiness to learn: Yes Specific dose directions reviewed: Yes Opportunity for questions/discussion: Yes Reports understanding of instructions: Yes Further learning needs: No /seven Raymundo PharmD, [facility] Clinical Dental Appliance Repairer Signed: 02/06/2024 09:48 Receipt Acknowledged By: 02/06/2024 09:52 /seven PARIS CPHT Clinical Fire Prevention Bureau Captain 02/06/2024 ADDENDUM STATUS: COMPLETED Received call from Oanh Josue (personal phone: [phone], main office to [facility]: [phone]) to review transition from warfarin to apixaban. States INR has been subtherapuetic x2 weeks (most recent INR is 1.7 from 02/04/24). [facility] notes they are flexible and can come on an as needed basis. They will also call on saturday to see if apixaban has arrived. Will keep pt on s/s for Jan to track apixaban Rx. [facility] would appreciate a call at that time as well /michell/ DASHAWN PACK PHARMD, [facility] CLINICAL PHARMACIST PRACTITIONER Signed: 02/06/2024 13:24 Receipt Acknowledged By: 02/06/2024 13:26 /seven PARIS CPHT Clinical Fire Prevention Bureau Captain 02/10/2024 ADDENDUM STATUS: COMPLETED Attempted to track apixaban Rx - Rx is still processing through [facility] without tracking information available. Will track again in 3 days. Call placed to RN to provide this update as well (voice message left). /seven Raymundo PharmD, [facility] Clinical Dental Appliance Repairer Signed: 02/10/2024 10:16 Receipt Acknowledged By: 02/10/2024 10:20 /seven PARIS CPHT Clinical Fire Prevention Bureau Captain 02/13/2024 ADDENDUM STATUS: COMPLETED Apixaban Rx tracked. Rx delivered to pt today. Attempted to reach pt to review - no answer. Attempted to reach [facility] RN to review - no answer. Voice message left for RN asking for her to contact clinic back to discuss pt's transition for warfarin to apixaban once INR is <2. Awaiting return call. Will attempt RN again 02/14/24 if no response sooner. /seven Raymundo PharmD, [facility] Clinical Dental Appliance Repairer Signed: 02/13/2024 11:46 Receipt Acknowledged By: 02/13/2024 11:49 /seven URIAS Clinical Fire Prevention Bureau Captain DASHAWN PACKYANNA [facility] Feb 13, 2024 11:43 AM ADDENDUM: LOCAL TITLE: Addendum STANDARD TITLE: ADDENDUM DATE OF NOTE: FEB 13, 2024@11:43:45 ENTRY DATE: FEB 13, 2024@11:43:46 AUTHOR: MERCEDEZ RAYMUNDO EXP COSIGNER: URGENCY: STATUS: COMPLETED Apixaban Rx tracked. Rx delivered to pt today. Attempted to reach pt to review - no answer. Attempted to reach [facility] RN to review - no answer. Voice message left for RN asking for her to contact clinic back to discuss pt's transition for warfarin to apixaban once INR is <2. Awaiting return call. Will attempt RN again 02/14/24 if no response sooner. /seven Raymundo PharmD, [facility] Clinical Dental Appliance Repairer Signed: 02/13/2024 11:46 Receipt Acknowledged By: 02/13/2024 11:49 /seven URIAS Clinical Fire Prevention Bureau Captain --- Original Document --- 02/06/24 CONSULT REPORT/ANTICOAGULATION CLINIC: Initial Note: Anticoagulation DOAC Agent Progress Note Reason for visit: Initial Education for Apixaban/Eliquis Indication: atrial fibrillation Start Date: to be determined Expected Duration: Indefinite Referring Provider: Dr. Peres Patient Contact: Home: Patient has given permission to leave anticoagulation message on answering machine or with person listed. Subjective: [facility] Cardiology. Labs drawn within the last 90 days found JLV. Reviewed this with pt - he is expecting to make the transition from warfarin to apixaban. We reviewed the difference between warfarin and apixaban at length today. All education re: apixaban provided today to pt. He denies missed doses of medications with the help of [facility] getter welder prefills (has [facility] RN 1-2x/week with INR checks); hx of 1-2 beers a day but none for the last 8 weeks. No upcoming surgeries/procedures. Uses acetaminophen only for pain. He was not able to review all medications today - asks that we talk with [facility] re: medications. Call placed to Oanh Josue (personal phone: [phone], main office to [place]: [phone]) to review this transition. Detailed voice message left for Natalie with contact information for [place] [facility]. Advised pt that [place] will be mailing apixaban Rx to pt. Once Rx received, will have pt set Rx aside for RN/anticoagulation clinic review. Once Rx is delivered and [facility] alerted, will plan for warfarin hold x2 days with repeat INR. Will coordinate all of this with ELISABETH RN. Labs: Patient reports outside Hgb results: Date: [...] ONE TABLET BY MOUTH EVERY 12 HOURS PENDING DEPEND UNDERWEAR,MAXIMUM,MEN LARGE USE 1 BRIEF DIRECTED [...] MOUTH ONCE DAILY ACTIVE Interacting Meds: -- warfarin: will be stopping warfarin and transitioning to apixaban -- amiodarone: potential for increase in apixaban concentrations, no other interacting medications found, therefore no action needed Apixaban: The patient was provided with the following education: -- Purpose of Apixaban -- Signs and symptoms of stroke and thrombosis and what to do should they occur -- Medication Identification -- Dosing recommendations -Apixaban may be taken with or without food -Apixaban may be crushed -- Storage recommendations -Store medication in a dry area at room temperature -- Recommendations for missed doses or overdosage -- Importance of medication compliance and avoiding lapses in therapy to minimize the risk of stroke -- Monitor for signs/symptoms of bleeding, including: -Orion or brown urine -Red or black tarry stools -Coughing up blood -Vomiting blood or vomit that looks like coffee grounds -Reoccurring nosebleeds -Unusual bleeding from the gums -Bleeding from a cut that does not stop -Headaches, dizziness or weakness -- Contact this clinic or provider if patient experiences and serious or intolerable adverse effects -- Review risks associated with falling -- Which medications to avoid due to drug interactions -- Importance of notifying all providers of any medication patient is taking or changes that may occur -- What to do if patient wants to discontinue therapy -- Contact this clinic or provider if scheduled for a procedure -- Contact number for the [facility] provided Assessment/Plan: - [facility] provided education re: apixaban vs. warfarin - Apixaban Rx to be processed for mail - Upon receipt, pt to set Rx aside and not start until reviewing with [facility] - Once apixaban on hand, will coordinate transition with [facility] RN which will involve warfarin hold x2 days, repeat INR, potential to start apixaban Time Spent: 20 mins Next Appt: Jan to track apixaban Rx, attempt [facility] RN again if no call back sooner WILL ASK FOR [facility] ELECTRICAL ENGINEER TO PLEASE MAIL APIXABAN/ATRIAL FIBRILLATION HANDOUT TO PT Next PCP Appt: Unable to see next EDUCATION Provided with verbal instructions: Yes Provided with written instructions: No Barriers to learning: No Readiness to learn: Yes Specific dose directions reviewed: Yes Opportunity for questions/discussion: Yes Reports understanding of instructions: Yes Further learning needs: No /seven Raymundo PharmD, [facility] Clinical Dental Appliance Repairer Signed: 02/06/2024 09:48 Receipt Acknowledged By: 02/06/2024 09:52 /seven PARIS CPHT Clinical Fire Prevention Bureau Captain 02/06/2024 ADDENDUM STATUS: COMPLETED Received call from Oanh Josue (personal phone: [phone], main office to [facility]: [phone]) to review transition from warfarin to apixaban. States INR has been subtherapuetic x2 weeks (most recent INR is 1.7 from 02/04/24). [facility] notes they are flexible and can come on an as needed basis. They will also call on saturday to see if apixaban has arrived. Will keep pt on s/s for Jan to track apixaban Rx. [facility] would appreciate a call at that time as well /michell/ DASHAWN PACK PHARMD, [facility] CLINICAL PHARMACIST PRACTITIONER Signed: 02/06/2024 13:24 Receipt Acknowledged By: 02/06/2024 13:26 /seven PARIS CPHT Clinical Fire Prevention Bureau Captain 02/10/2024 ADDENDUM STATUS: COMPLETED Attempted to track apixaban Rx - Rx is still processing through [facility] without tracking information available. Will track again in 3 days. Call placed to RN to provide this update as well (voice message left). /seven Raymundo PharmD, [facility] Clinical Dental Appliance Repairer Signed: 02/10/2024 10:16 Receipt Acknowledged By: 02/10/2024 10:20 /michell/ MAUREEN PARIS CPHT Clinical Fire Prevention Bureau Captain MERCEDEZ RAYMUNDO CB Feb 10, 2024 10:05 AM ADDENDUM: LOCAL TITLE: Addendum STANDARD TITLE: ADDENDUM DATE OF NOTE: FEB 10, 2024@10:05:20 ENTRY DATE: FEB 10, 2024@10:05:21 AUTHOR: MERCEDEZ RAYMUNDO EXP COSIGNER: URGENCY: STATUS: COMPLETED Attempted to track apixaban Rx - Rx is still processing through [facility] without tracking information available. Will track again in 3 days. Call placed to RN to provide this update as well (voice message left). /michell/ Mercedez Raymundo PharmD [facility] Clinical Dental Appliance Repairer Signed: 02/10/2024 10:16 Receipt Acknowledged By: 02/10/2024 10:20 /michell/ MAUREEN PARIS CPHT Clinical Fire Prevention Bureau Captain --- Original Document --- 02/06/24 CONSULT REPORT/ANTICOAGULATION CLINIC: Initial Note: Anticoagulation DOAC Agent Progress Note Reason for visit: Initial Education for Apixaban/Eliquis Indication: atrial fibrillation Start Date: to be determined Expected Duration: Indefinite Referring Provider: Dr. Peres Patient Contact: Home: Patient has given permission to leave anticoagulation message on answering machine or with person listed. Subjective: [facility] Cardiology. Labs drawn within the last 90 days found JLV. Reviewed this with pt - he is expecting to make the transition from warfarin to apixaban. We reviewed the difference between warfarin and apixaban at length today. All education re: apixaban provided today to pt. He denies missed doses of medications with the help of [facility] getter welder prefills (has [facility] RN 1-2x/week with INR checks); hx of 1-2 beers a day but none for the last 8 weeks. No upcoming surgeries/procedures. Uses acetaminophen only for pain. He was not able to review all medications today - asks that we talk with ELISABETH re: medications. Call placed to Oanh Josue (personal phone: [phone], main office to [facility]: [phone]) to review this transition. Detailed voice message left for Natalie with contact information for [place] [facility]. Advised pt that [facility] will be mailing apixaban Rx to pt. Once Rx received, will have pt set Rx aside for RN/anticoagulation clinic review. Once Rx is delivered and [facility] alerted, will plan for warfarin hold x2 days with repeat INR. Will coordinate all of this with ELISABETH RN. Labs: Patient reports outside Hgb results: Date: [...] ONE TABLET BY MOUTH EVERY 12 HOURS PENDING DEPEND UNDERWEAR,MAXIMUM,MEN LARGE USE 1 BRIEF DIRECTED [...] MOUTH ONCE DAILY ACTIVE Interacting Meds: -- warfarin: will be stopping warfarin and transitioning to apixaban -- amiodarone: potential for increase in apixaban concentrations, no other interacting medications found, therefore no action needed Apixaban: The patient was provided with the following education: -- Purpose of Apixaban -- Signs and symptoms of stroke and thrombosis and what to do should they occur -- Medication Identification -- Dosing recommendations -Apixaban may be taken with or without food -Apixaban may be crushed -- Storage recommendations -Store medication in a dry area at room temperature -- Recommendations for missed doses or overdosage -- Importance of medication compliance and avoiding lapses in therapy to minimize the risk of stroke -- Monitor for signs/symptoms of bleeding, including: -Orion or brown urine -Red or black tarry stools -Coughing up blood -Vomiting blood or vomit that looks like coffee grounds -Reoccurring nosebleeds -Unusual bleeding from the gums -Bleeding from a cut that does not stop -Headaches, dizziness or weakness -- Contact this clinic or provider if patient experiences and serious or intolerable adverse effects -- Review risks associated with falling -- Which medications to avoid due to drug interactions -- Importance of notifying all providers of any medication patient is taking or changes that may occur -- What to do if patient wants to discontinue therapy -- Contact this clinic or provider if scheduled for a procedure -- Contact number for the [facility] provided Assessment/Plan: - [facility] provided education re: apixaban vs. warfarin - Apixaban Rx to be processed for mail - Upon receipt, pt to set Rx aside and not start until reviewing with [facility] - Once apixaban on hand, will coordinate transition with [facility] RN which will involve warfarin hold x2 days, repeat INR, potential to start apixaban Time Spent: 20 mins Next Appt: Jan to track apixaban Rx, attempt [facility] RN again if no call back sooner WILL ASK FOR [facility] TO PLEASE MAIL APIXABAN/ATRIAL FIBRILLATION HANDOUT TO PT Next PCP Appt: Unable to see next EDUCATION Provided with verbal instructions: Yes Provided with written instructions: No Barriers to learning: No Readiness to learn: Yes Specific dose directions reviewed: Yes Opportunity for questions/discussion: Yes Reports understanding of instructions: Yes Further learning needs: No /michell/ Mercedez Raymundo PharmD, [facility] Clinical Dental Appliance Repairer Signed: 02/06/2024 09:48 Receipt Acknowledged By: 02/06/2024 09:52 /michell/ MAUREEN PARIS CPHT Clinical Fire Prevention Bureau Captain 02/06/2024 ADDENDUM STATUS: COMPLETED Received call from Oanh Josue (personal phone: [phone], main office to [facility]: [phone]) to review transition from warfarin to apixaban. States INR has been subtherapuetic x2 weeks (most recent INR is 1.7 from 02/04/24). [facility] notes they are flexible and can come on an as needed basis. They will also call on saturday to see if apixaban has arrived. Will keep pt on s/s for Jan to track apixaban Rx. [facility] would appreciate a call at that time as well /seven PACK PHARMD, [facility] CLINICAL PHARMACIST PRACTITIONER Signed: 02/06/2024 13:24 Receipt Acknowledged By: 02/06/2024 13:26 /seven PARIS [facility] Clinical Fire Prevention Bureau Captain MERCEDEZ RAYMUNDO [facility] Feb 06, 2024 01:20 PM ADDENDUM: LOCAL TITLE: Addendum STANDARD TITLE: ADDENDUM DATE OF NOTE: FEB 06, 2024@13:20:50 ENTRY DATE: FEB 06, 2024@13:20:51 AUTHOR: DASHAWN PACK COSIGNER: URGENCY: STATUS: COMPLETED Received call from Oanh Josue (personal phone: [phone], main office to [facility]: [phone]) to review transition from warfarin to apixaban. States INR has been subtherapuetic x2 weeks (most recent INR is 1.7 from 02/04/24). [facility] notes they are flexible and can come on an as needed basis. They will also call on saturday to see if apixaban has arrived. Will keep pt on s/s for Jan to track apixaban Rx. [facility] would appreciate a call at that time as well /michell/ DASHAWN PACK PHARMD, [facility] CLINICAL PHARMACIST PRACTITIONER Signed: 02/06/2024 13:24 Receipt Acknowledged By: 02/06/2024 13:26 /michell/ MAUREEN PARIS CPHT Clinical Fire Prevention Bureau Captain --- Original Document --- 02/06/24 CONSULT REPORT/ANTICOAGULATION CLINIC: Initial Note: Anticoagulation DOAC Agent Progress Note Reason for visit: Initial Education for Apixaban/Eliquis Indication: atrial fibrillation Start Date: to be determined Expected Duration: Indefinite Referring Provider: Dr. Peres Patient Contact: Home: Patient has given permission to leave anticoagulation message on answering machine or with person listed. Subjective: [facility] Cardiology. Labs drawn within the last 90 days found JLV. Reviewed this with pt - he is expecting to make the transition from warfarin to apixaban. We reviewed the difference between warfarin and apixaban at length today. All education re: apixaban provided today to pt. He denies missed doses of medications with the help of [facility]NA getter welder prefills (has [facility] RN 1-2x/week with INR checks); hx of 1-2 beers a day but none for the last 8 weeks. No upcoming surgeries/procedures. Uses acetaminophen only for pain. He was not able to review all medications today - asks that we talk with [facility] re: medications. Call placed to Oanh Josue (personal phone: [phone], main office to [facility]: [phone]) to review this transition. Detailed voice message left for Natalie with contact information for [facility]. Advised pt that [place] will be mailing apixaban Rx to pt. Once Rx received, will have pt set Rx aside for RN/anticoagulation clinic review. Once Rx is delivered and [facility] alerted, will plan for warfarin hold x2 days with repeat INR. Will coordinate all of this with [facility] RN. Labs: Patient reports outside Hgb results: Date: [...] ONE TABLET BY MOUTH EVERY 12 HOURS PENDING DEPEND UNDERWEAR,MAXIMUM,MEN LARGE USE 1 BRIEF DIRECTED [...] MOUTH ONCE DAILY ACTIVE Interacting Meds: -- warfarin: will be stopping warfarin and transitioning to apixaban -- amiodarone: potential for increase in apixaban concentrations, no other interacting medications found, therefore no action needed Apixaban: The patient was provided with the following education: -- Purpose of Apixaban -- Signs and symptoms of stroke and thrombosis and what to do should they occur -- Medication Identification -- Dosing recommendations -Apixaban may be taken with or without food -Apixaban may be crushed -- Storage recommendations -Store medication in a dry area at room temperature -- Recommendations for missed doses or overdosage -- Importance of medication compliance and avoiding lapses in therapy to minimize the risk of stroke -- Monitor for signs/symptoms of bleeding, including: -Orion or brown urine -Red or black tarry stools -Coughing up blood -Vomiting blood or vomit that looks like coffee grounds -Reoccurring nosebleeds -Unusual bleeding from the gums -Bleeding from a cut that does not stop -Headaches, dizziness or weakness -- Contact this clinic or provider if patient experiences and serious or intolerable adverse effects -- Review risks associated with falling -- Which medications to avoid due to drug interactions -- Importance of notifying all providers of any medication patient is taking or changes that may occur -- What to do if patient wants to discontinue therapy -- Contact this clinic or provider if scheduled for a procedure -- Contact number for the [facility] provided Assessment/Plan: - [facility] provided education re: apixaban vs. warfarin - Apixaban Rx to be processed for mail - Upon receipt, pt to set Rx aside and not start until reviewing with [facility] - Once apixaban on hand, will coordinate transition with [facility] RN which will involve warfarin hold x2 days, repeat INR, potential to start apixaban Time Spent: 20 mins Next Appt: Jan to track apixaban Rx, attempt VNA RN again if no call back sooner WILL ASK FOR [facility] ELECTRICAL ENGINEER TO PLEASE MAIL APIXABAN/ATRIAL FIBRILLATION HANDOUT TO PT Next PCP Appt: Unable to see next EDUCATION Provided with verbal instructions: Yes Provided with written instructions: No Barriers to learning: No Readiness to learn: Yes Specific dose directions reviewed: Yes Opportunity for questions/discussion: Yes Reports understanding of instructions: Yes Further learning needs: No /michell/ Mercedez Raymundo, PharmD, [facility] Clinical Dental Appliance Repairer Signed: 02/06/2024 09:48 Receipt Acknowledged By: 02/06/2024 09:52 /es/ MAUREEN PARIS CPHT Clinical Fire Prevention Bureau Captain RAMONEDASHAWN RHIANNON CB Feb 06, 2024 09:33 AM PHARMACY MEDICATIO N MGT CONSULT: LOCAL TITLE: CONSULT REPORT/ANTICOAGULATION CLINIC STANDARD TITLE: PHARMACY MEDICATION MGT CONSULT DATE OF NOTE: FEB 06, 2024@09:33 ENTRY DATE: FEB 06, 2024@09:33:55 AUTHOR: MERCEDEZ RAYMUNDO EXP COSIGNER: URGENCY: STATUS: COMPLETED CONSULT REPORT/ANTICOAGULATION CLINIC Has ADDENDA Initial Note: Anticoagulation DOAC Agent Progress Note Reason for visit: Initial Education for Apixaban/Eliquis Indication: atrial fibrillation Start Date: to be determined Expected Duration: Indefinite Referring Provider: Dr. Peres Patient Contact: Home: Patient has given permission to leave anticoagulation message on answering machine or with person listed. Subjective: [place] received Rx for apixaban from [facility]. Labs drawn within the last 90 days found JLV. Reviewed this with pt - he is expecting to make the transition from warfarin to apixaban. We reviewed the difference between warfarin and apixaban at length today. All education re: apixaban provided today to pt. He denies missed doses of medications with the help of [facility]NA getter welder prefills (has [facility] RN 1-2x/week with INR checks); hx of 1-2 beers a day but none for the last 8 weeks. No upcoming surgeries/procedures. Uses acetaminophen only for pain. He was not able to review all medications today - asks that we talk with [facility]NA re: medications. Call placed to Oanh MACKA RN Natalie Josue (personal phone: [phone], main office to [facility]: [phone]) to review this transition. Detailed voice message left for Natalie with contact information for [facility]. Advised pt that [place] will be mailing apixaban Rx to pt. Once Rx received, will have pt set Rx aside for RN/anticoagulation clinic review. Once Rx is delivered and ACC alerted, will plan for warfarin hold x2 days with repeat INR. Will coordinate all of this with [facility] RN. Labs: Patient reports outside Hgb results: Date: [...] LFTs WNL Vitals: Weight 75.50 kg per [facility] 11/21/23 (BMI): BMI: 22.6 Height: 72 inches per [facility] 11/21/23 Active Outpatient Medications (including Supplies): APIXABAN 5MG TAB TAKE ONE TABLET BY MOUTH EVERY 12 HOURS PENDING DEPEND UNDERWEAR,MAXIMUM,MEN LARGE USE 1 BRIEF DIRECTED [...] MOUTH ONCE DAILY ACTIVE Interacting Meds: -- warfarin: will be stopping warfarin and transitioning to apixaban -- amiodarone: potential for increase in apixaban concentrations, no other interacting medications found, therefore no action needed Apixaban: The patient was provided with the following education: -- Purpose of Apixaban -- Signs and symptoms of stroke and thrombosis and what to do should they occur -- Medication Identification -- Dosing recommendations -Apixaban may be taken with or without food -Apixaban may be crushed -- Storage recommendations -Store medication in a dry area at room temperature -- Recommendations for missed doses or overdosage -- Importance of medication compliance and avoiding lapses in therapy to minimize the risk of stroke -- Monitor for signs/symptoms of bleeding, including: -Orion or brown urine -Red or black tarry stools -Coughing up blood -Vomiting blood or vomit that looks like coffee grounds -Reoccurring nosebleeds -Unusual bleeding from the gums -Bleeding from a cut that does not stop -Headaches, dizziness or weakness -- Contact this clinic or provider if patient experiences and serious or intolerable adverse effects -- Review risks associated with falling -- Which medications to avoid due to drug interactions -- Importance of notifying all providers of any medication patient is taking or changes that may occur -- What to do if patient wants to discontinue therapy -- Contact this clinic or provider if scheduled for a procedure -- Contact number for the [facility] provided Assessment/Plan: - [facility] provided education re: apixaban vs. warfarin - Apixaban Rx to be processed for mail - Upon receipt, pt to set Rx aside and not start until reviewing with [facility] - Once apixaban on hand, will coordinate transition with [facility] RN which will involve warfarin hold x2 days, repeat INR, potential to start apixaban Time Spent: 20 mins Next Appt: Jan to track apixaban Rx, attempt [facility]NA RN again if no call back sooner WILL ASK FOR [facility] TO PLEASE MAIL APIXABAN/ATRIAL FIBRILLATION HANDOUT TO PT Next PCP Appt: Unable to see next EDUCATION Provided with verbal instructions: Yes Provided with written instructions: No Barriers to learning: No Readiness to learn: Yes Specific dose directions reviewed: Yes Opportunity for questions/discussion: Yes Reports understanding of instructions: Yes Further learning needs: No /michell/ Mercedez Raymundo PharmD, [facility] Clinical Dental Appliance Repairer Signed: 02/06/2024 09:48 Receipt Acknowledged By: 02/06/2024 09:52 /michell/ MAUREEN PARIS CPHT Clinical Fire Prevention Bureau Captain 02/06/2024 ADDENDUM STATUS: COMPLETED Received call from Oanh Josue (personal phone: [phone], main office to [facility]: [phone]) to review transition from warfarin to apixaban. States INR has been subtherapuetic x2 weeks (most recent INR is 1.7 from 02/04/24). [facility]NA notes they are flexible and can come on an as needed basis. They will also call on saturday to see if apixaban has arrived. Will keep pt on s/s for Jan to track apixaban Rx. [facility] would appreciate a call at that time as well /michell/ DASHAWN PACK PHARMD, [facility] CLINICAL PHARMACIST PRACTITIONER Signed: 02/06/2024 13:24 Receipt Acknowledged By: 02/06/2024 13:26 /michell/ MAUREEN PARIS [facility] Clinical Fire Prevention Bureau Captain 02/10/2024 ADDENDUM STATUS: COMPLETED Attempted to track apixaban Rx - Rx is still processing through [facility] without tracking information available. Will track again in 3 days. Call placed to RN to provide this update as well (voice message left). /michell/ Mercedez Raymundo PharmD, [facility] Clinical Dental Appliance Repairer Signed: 02/10/2024 10:16 Receipt Acknowledged By: 02/10/2024 10:20 /michell/ MAUREEN PARIS CPHT Clinical Fire Prevention Bureau Captain 02/13/2024 ADDENDUM STATUS: COMPLETED Apixaban Rx tracked. Rx delivered to pt today. Attempted to reach pt to review - no answer. Attempted to reach [facility] RN to review - no answer. Voice message left for RN asking for her to contact clinic back to discuss pt's transition for warfarin to apixaban once INR is <2. Awaiting return call. Will attempt RN again 02/14/24 if no response sooner. /seven Raymundo PharmD, [facility] Clinical Dental Appliance Repairer Signed: 02/13/2024 11:46 Receipt Acknowledged By: 02/13/2024 11:49 /michell/ MIAN URIAS Clinical Fire Prevention Bureau Captain 02/13/2024 ADDENDUM STATUS: COMPLETED Received call from ELISABETH Estrada. Reports INR was 1.8. Instructed to start apixaban this evening. Declines medication disposal envelope. All questions answered. Prefers we call her for 4 week f/u (personal phone: [phone], main office to [facility]: [phone]). An INR was performed by a lab outside the [place]. Documentation of INR done outside this [facility]: INR Result: 1.8 Date COLLECTED: February 13, 2024 Location: Outside Healthcare Provider [facility] Outside INR results received via point of care. Will update schedule to reflect 4 week f/u on 03/12/24 /michell/ DASHAWN PACK, PHARMD, [facility] CLINICAL PHARMACIST PRACTITIONER Signed: 02/13/2024 12:45 Receipt Acknowledged By: * AWAITING SIGNATURE * MIAN URIAS KRISTIE J FITCHBURG OC
--- OUTSIDE RECORDS SUMMARY | 2024-04-08 09:57 | XMS_ITS ---
Author Name [facility] [place] Organization [place] Address [address] [place] [address] Care Team Providers Care Personal Carer Name Role Phone ARDEN TRENT Primary Care [...] PART A Apr 22, 2001 PART A [id number] JENIFER ANAYA PATIENT MEDICARE (WNR) MEDICARE (M) PART B Apr 22, 2001 PART B [id number] JENIFER ANAYA PATIENT [employer] MEDIGAP PLAN F May 11, 2008 PLANF [id number] JENIFER ANAYA PATIENT Selected Encounter This section includes the information on record at [place] for the Encounter. Date/Time Encounter Type Encounter Description Reason Provider Source Mar 13, 2024 02:57 PM RN CARE EA 15 MIN HH/HOSPICE HBPC Nursing (RN / LP) ICD-10-CM I50.9 Heart failure, unspecified ALLSOP,LISA IHE Encounter Template Text not used by [place] Assessments - Encounter Diagnoses This section includes the primary and secondary diagnoses documented for the Encounter. Date/Time Primary/Secondary Diagnosis Diagnosis Name Provider Source Mar 13, 2024 03:00 PM PRIMARY Heart failure, unspecified LISA VIVAS [place] [facility] [place] [facility] Mar 13, 2024 03:00 PM SECONDARY Other specified counseling LISA VIVAS [facility] Plan of Treatment: Future Appointments (+ 6 [...] [facility] NON-SKILLED HOME HEALTH AIDE Cons Strategy Associate's Choice [place] Feb 05, 2024 12:00 AM Laboratory - Chemistry Order CREATININE (eGFR 2020) BLOOD (SST-SERUM) [facility] Feb 05, 2024 12:00 AM Laboratory - Chemistry Order LIVER FUNCTION BLOOD (SST-SERUM) [facility] Feb 05, 2024 12:00 AM Laboratory - Chemistry Order CBC BLOOD (LAV-BLOOD) [facility] Feb 05, 2024 12:00 AM Laboratory - Chemistry Order PT & INR (COUMADIN) BLOOD (BLUE-PLASMA) [facility] Apr 03, 2024 02:43 PM Consult Order HBPC OT [place] M/POPC OUTPT Cons Strategy Associate's Choice [facility] Apr 03, 2024 02:43 PM Consult Order HBPC NUTRI TION SPOPC OUTPT Cons Strategy Associate's Choice [facility] Encounter Notes: All associated encounter notes This section contains the clinical notes associated to the Encounter. Date/Time Encounter Note(s) Provider Source Mar 13, 2024 02:57 PM ADMINISTRATIVE NOT E: LOCAL TITLE: ADMINISTRATIVE NOTE STANDARD TITLE: ADMINISTRATIVE NOTE DATE OF NOTE: MAR 13, 2024@14:57 ENTRY DATE: MAR 13, 2024@14:58:07 AUTHOR: LISA VIVAS EXP COSIGNER: URGENCY: STATUS: COMPLETED Joint In Home screening visit made today to 's home w/ EDIS Ruff. See full In Home Screen assessment note from this date. Plan is to recommend admission to [facility], will be presented at next IDT. /michell/ LISA VIVAS RN, BSN [facility] CONFLICTS ANALYST Signed: 03/13/2024 15:00 LIAS VIVAS [place] [facility]
--- OUTSIDE RECORDS SUMMARY | 2024-04-08 09:57 | XMS_ITS | Encounter Summary ---
Author Name [facility] [place] Organization [place] Address [address] [place] [address] Care Team Providers Care People Manager Name Role Phone ARDEN TRENT Primary [...] PART A Apr 22, 2001 PART A [id number] JENIFER ANAYA PATIENT MEDICARE (WNR) MEDICARE (M) PART B Apr 22, 2001 PART B [id number] JENIFER ANAYA PATIENT [employer] MEDIGAP PLAN F May 11, 2008 PLANF [id number] JENIFER ANAYA PATIENT Selected Encounter This section includes the information on record at [place] for the Encounter. 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 This section includes future appointments and [...] of theEncounter. The data comes from all [place] treatment facilities. Test Date/Time Test Type Test Details Facility Name Jan 31, 2024 01:42 PM Consult Order COMMUNITY CARE-GEC NON-SKILLED HOME HEALTH AIDE Cons Associate Music Professor's Choice [place] Feb 05, 2024 12:00 AM Laboratory - Chemistry Order CREATININE (eGFR 2020) BLOOD (SST-SERUM) [facility] Feb 05, 2024 12:00 AM Laboratory - Chemistry Order LIVER FUNCTION BLOOD (SST-SERUM) [facility] Feb 05, 2024 12:00 AM Laboratory - Chemistry Order CBC BLOOD (LAV-BLOOD) [facility] Feb 05, 2024 12:00 AM Laboratory - Chemistry Order PT & INR (COUMADIN) BLOOD (BLUE-PLASMA) [facility] Apr 03, 2024 02:43 PM Consult Order HBPC OT NH M/POPC OUTPT [facility] Associate Music Professor's Choice [facility] Apr 03, 2024 02:43 PM Consult Order HBPC NUTRI TION SPOPC OUTPT [facility] Associate Music Professor's Choice [facility] Encounter Notes: All associated encounter notes This section contains the clinical notes associated to the Encounter. 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 lived in home 40 years Pain: no pain reported Objective: [place] referred to OT for Home Safety, DME to assist with safety Significant History Active problems - Computerized Problem List is the source for the followin. Frail elderly 2. Long-term current use of anticoagulant 3. CHF - Congestive Heart Failure ([facility] [id number]) 4. HTN - Hypertension ([facility] [id number]) 5. Hyperlipidemia ([facility] [id number]) 6. Diabetes Mellitus Type 2 ([facility] [id number]) 7. CAD - Coronary Artery Disease ([facility] [id number]) 8. OA - Osteoarthritis ([facility] [id number]) 9. AF - Atrial fibrillation 10. Under care of multiple providers Focus 1 chart 2 Living Situation: Son and grandson have moved in to assist Primary Entry: 2 front doors, driveway/garage 1 step + threshold 2 doors screen/opens out main door open in. Already grab bar to assist. Secondary Back: walk in 2 Level home 1st level: L bathroom, bedroom, bedroom dining, livingroom, kitchen (living space) Primary Bath: Tub/shower combination, has grab bars, removable shower head bench standard toilet 2nd level: Stairglide access (finished basement) livingroom, bedroom, laundry, full bathroom, walk in shower, standard toilet, sink 3 Cognition: Alert/oriented able to actively participate in OT evaluation, ask appropriate questions. Follow 1-2 step directives, Excellent safety awareness when transferring from transport chair to trial of new wc assuring brakes were on prior to transfer. Mobility: Stand pivot transfer, Min A, Gait dependent on device/walker in house, transport chair community use propelled by caregiver. Short, step height/length. Transfer: sit to stand> MIN A Assessment: arrived to OT appointment with grandson in quail run behavioral healthed [place] transport chair. with reduced endurance and mobility, CHF. dependent on transport chair, goal oriented to remain viable in his home he has lived in for 40 years. Son and grandson live in, for support, here today for support with environmental modifications. Education provided re: HISA puja process, reviewed current shower method and recommended upgrade to shower bench versus chair, to avoid unilateral transfer. Safer option to assist with sitting/assistive support with LE from grandsanna who is providing assistance with bathing. /grandson agreement with plan. has guardian alert, grab bar to assist at his primary entry. Interested in longer term option for bathing and remaining viable in his home. HISA puja explore options for tub/shower modification, has an estimate with him. Agrees to trial the tub bench for more immediate safety. issued this date, trial and education in care use and safety of device, Sock preston education/ no socks, and shared that he was unable and agreed to sock preston. LTG: Improve Hme safety with DME,modification to shower. STG: Upgrade bathing DME to tub bench for max safety in current set up HISA puja application to explore eligibility for longer-term option sock preston Wc 18 with cushion Dishcarge once all goals met /michell/ HÉCTOR FITZGERALD/L OCCUPATIONAL THERAPIST Signed: 03/10/2024 12:22 /michell/ SABRINA VARGHESE CERTIFIED NURSE PRACTITIONER Cosigned: 03/10/2024 12:29 JUAN DIEGO PRICE [facility]
--- OUTSIDE RECORDS SUMMARY | 2024-04-08 09:57 | XMS_ITS | Encounter Summary ---
Author Name [place] Address [address] [place] [address] Care Team Providers Care Wheel Press Operator Name Role Phone ARDEN TRENT [...] PART A Apr 22, 2001 PART A [id number] JENIFER ANAYA PATIENT MEDICARE (WNR) MEDICARE (M) PART B Apr 22, 2001 PART B [id number] JENIFER ANAYA PATIENT [employer] MEDIGAP PLAN F May 11, 2008 PLANF [id number] JENIFER ANAYA PATIENT Selected Encounter This section includes the information on record at [place] for the Encounter. Date/Time Encounter Type Encounter Description Reason Pro vider Source Mar 11, 2024 12:00 AM Outpatient Encounter EVENT (HISTORICAL) IHE Encounter Template Text not used by [...] of theEncounter. The data comes from all [place] treatment facilities. Test Date/Time Test Type Test Details Facility Name Jan 31, 2024 01:42 PM Consult Order COMMUNITY CARE-GEC NON-SKILLED HOME HEALTH AIDE Cons Crepe Sole Wire [facility]her[facility] [place] Feb 05, 2024 12:00 AM Laboratory - Chemistry Order CREATININE (eGFR 2020) BLOOD (SST-SERUM) [facility] Feb 05, 2024 12:00 AM Laboratory - Chemistry Order LIVER FUNCTION BLOOD (SST-SERUM) [facility] Feb 05, 2024 12:00 AM Laboratory - Chemistry Order CBC BLOOD (LAV-BLOOD) [facility] Feb 05, 2024 12:00 AM Laboratory - Chemistry Order PT & INR (COUMADIN) BLOOD (BLUE-PLASMA) [facility] Apr 03, 2024 02:43 PM Consult Order HBPC OT [place] M/POPC OUTPT [facility] Cre[employer] S[employer] Brusher[facility] Choice [place] [facility] [place] [facility] Apr 03, 2024 02:43 PM Consult Order HBPC NUTRI TION SPOPC OUTPT [facility] [employer] S[employer] Wire [facility] [place] [facility] [place] [facility] Immunizations: All administered on the encounter date This section contains immunizations associated to the Encounter. Immunization Series Date Issued Reaction Comments COVID-19 ([employer]), MRNA, LNP -S, PF, EMELINA-SUCROSE, 30 MCG/0.3 ML (AGES 12+ YEARS) Mar 11, 2024 INFLUENZA, UNSPECIFIED FORMULATION Mar 11, 2024
--- OUTSIDE RECORDS SUMMARY | 2024-04-08 09:57 | XMS_ITS | Encounter Summary ---
Author Name [place] Address [address] [place] [address] Care Team Providers Care Coal Pipeline Operator Name Role Phone ARDEN TRENT Primary [...] PART A Apr 22, 2001 PART A [id number] JENIFER ANAYA PATIENT MEDICARE (WNR) MEDICARE (M) PART B Apr 22, 2001 PART B [id number] JENIFER ANAYA PATIENT [employer] MEDIGAP PLAN F May 11, 2008 PLANF [id number] JENIFER ANAYA PATIENT Selected Encounter This section includes the information on record at [place] for the Encounter. Date/Time Encounter Type Encounter Description Reason Pro vider Source Mar 30, 2024 05:05 PM Outpatient Encounter [facility] Nursing (RN / LP) IHE Encounter Template Text not used by [place] Plan of Treatment: Future Appointments (+ 6 months) and Future Tests (+/- 45 days) The Plan of Treatment section includes future care activities for the patient from all [place] treatmentfacilities. This section includes future appointments and [...] of theEncounter. The data comes from all [place] treatment facilities. Test Date/Time Test Type Test Details Facility Name Apr 03, 2024 02:43 PM Consult Order [facility] OT [place] M/POPC OUTPT Cons Carbon Brushes Assembler's Choice [place] [facility] [place] [facility] Apr 03, 2024 02:43 PM Consult Order [facility] NUTRI TION SPOPC OUTPT Cons Carbon Brushes Assembler's Choice [place] [facility] [place] [facility] Vital Signs: All taken on the encounter date This section contains inpatient and outpatient Vital Signs collected on the date of the Encounter. Date/Time Temperature Pulse Blood Pressure Respiratory Rate SP02 Pain Height Weight Body Mass Index Source Mar 30, 2024 09:50 PM 97.8 75 128/84 18 97 2 160 [facility] [place] [facility] Encounter Notes: All associated encounter notes This section contains the clinical notes associated to the Encounter. Date/Time Encounter Note(s) Provider Source Mar 30, 2024 05:05 PM [facility] NOTE: LOCAL TITLE: [facility]PC CONSENT FOR SERVICES STANDARD TITLE: [facility] NOTE DATE OF NOTE: MAR 30, 2024@17:05 ENTRY DATE: MAR 30, 2024@17:05:06 AUTHOR: LISA VIVAS EXP COSIGNER: URGENCY: STATUS: COMPLETED consent for [facility] services signed and sent to marga /michell/ LISA VIVAS RN, BSN [facility] STRIP POLISHER Signed: 03/30/2024 17:05 LISA VIVAS [facility]
--- OUTSIDE RECORDS SUMMARY | 2024-04-08 09:57 | XMS_ITS | Encounter Summary ---
Author Name Department [place] Organization [place] Address [address] [place] [address] Care Team Providers Care Nutrition Director Name Role Phone ARDEN TRENT Primary Care [...] PART A Apr 22, 2001 PART A [id number] JENIFER ANAYA PATIENT MEDICARE (WNR) MEDICARE (M) PART B Apr 22, 2001 PART B [id number] JENIFER ANAYA PATIENT [employer] CITIZEN [place] [employer] [place] [employer] MEDIGAP PLAN F May 11, 2008 PLANF [id number] JENIFER ANAYA PATIENT Selected Encounter This section includes the information on record at [place] for the Encounter. Date/Time Encounter Type Encounter Description Reason Pro vider Source Jan 30, 2024 02:40 PM Outpatient Encounter ADMIN PAT ACTIVTIES (MASNONCT) [...] AM AMBULATORY - MEDICINE [place] [facility] Mar 10, 2024 10:30 AM [facility] Active, Pending, and Scheduled Orders This section includes a listing of several types of active, pending, and scheduled orders, including clinic medications orders, diagnostic test orders, procedure orders and consult orders; where the start date of the order is 45 days before the date of the Encounter or 45 days after the date of theEncounter. The data comes from all [place] treatment [facility]. Test Date/Time Test Type Test Details Facility Name Jan 31, 2024 01:42 PM Consult Order COMMUNITY CARE-[facility] NON-SKILLED HOME HEALTH AIDE Cons Medical Technologist Prn's Choice [facility] Feb 05, 2024 12:00 AM Laboratory - Chemi stry Order CREATININE (eGFR 2020) BLOOD (SST-SERUM) [facility] Feb 05, 2024 12:00 AM Laboratory - Chemi stry Order LIVER FUNCTION BLOOD (SST-SERUM) [facility] Feb 05, 2024 12:00 AM Laboratory - Chemi stry Order CBC BLOOD (LAV-BLOOD) [facility] Feb 05, 2024 12:00 AM Laboratory - Chemi stry Order PT & INR (COUMADIN) BLOOD (BLUE-PLASMA) [facility] Encounter Notes: All associated encounter notes This section contains the clinical notes associated to the Encounter. Date/Time Encounter Note(s) Provider Source Jan 30, 2024 02:40 PM ADMINISTRATIVE NOTE: LOCAL TITLE: CCC: SCHEDULING ADMINISTRATION STANDARD TITLE: ADMINISTRATIVE NOTE DATE OF NOTE: JAN 30, 2024@14:40:16 ENTRY DATE: JAN 30, 2024@14:40:17 AUTHOR: MAY BURNS COSIGNER: URGENCY: STATUS: COMPLETED CCC: SCHEDULING ADMINISTRATION Has ADDENDA Patient Demographics Patient Name: JENIFER ANAYA Patient Primary Phone: [phone] Patient Primary Address: [place] [address] Patient : 1935 Patient Age: 88 Caller/Recipient Relation to Patient: Caregiver Caller Name: willis Administrative Administrative Note Reason: Home Health / Halfway Administrative Note Comments: Willis SW calling from Oanh BARBER requesting call back from pact to discuss Eliquis orders she dropped off, Willis's call back number [phone] IMPORTANT: This note was created by [facility] Clinical Contact Center staff. Please do not alert the staff member by adding them as a signer for future communications. Alerts are not monitored by this user. /michell/ MAY SALES 1 [facility] Signed: 01/30/2024 14:40 Receipt Acknowledged By: 02/04/2024 10:26 /michell/ NANCY YOUNG RN-CLEOPATRA REGISTERED NURSE 02/04/2024 16:04 /michell/ MARY MON LPN Licensed Practical Nurse 02/04/2024 ADDENDUM STATUS: COMPLETED Called Willis at contact number provided above and left voicemail requesting call back to author at author's direct line or clinic number of [phone] /michell/ NANCY YOUNG RN-BC REGISTERED NURSE Signed: 02/04/2024 10:28 02/04/2024 ADDENDUM STATUS: COMPLETED Received call back from Willis and author advised her that we are pending the PCP reviewing his apixaban script and then consult will be placed for anticoag clinic review. Author advised that recent lab results will be needed for review by anticoag team. Author advised Willsi of names of lab results needed and she advised that she will contact prescriber and request lab orders that A nurse will be able to perform for updated labs for [facility] antico[facility] clinic review. Willis advised author that [place] does not have a outside medication insurance coverage so is unable to afford the out of pocket cost of apixaban medication at non [facility] pharmacy. /NANCY Don RN-BC REGISTERED NURSE Signed: 02/04/2024 11:09 MAY BURNS [facility]
--- OUTSIDE RECORDS SUMMARY | 2024-04-08 09:57 | XMS_ITS ---
Author Name Department [place] ([place]) Organization [place] Address [address] [place] [address] Care Team Providers Care Sand Cleaning Machine Operator Name Role Phone ARDEN TRENT Primary [...] PART A Apr 22, 2001 PART A [id number] JENIFER ANAYA PATIENT MEDICARE (WNR) MEDICARE (M) PART B Apr 22, 2001 PART B [id number] JENIFER ANAYA PATIENT [employer] MEDIGAP PLAN F May 11, 2008 PLANF [id number] JENIFER ANAYA PATIENT Selected Encounter This section includes the information on record at [place] for the Encounter. Date/Time Encounter Type Encounter Description Reason Provider Source Mar 13, 2024 12:30 PM HHC RN E&M PLAN SVS, 15 MIN [facility] Nursing (RN / LP) ICD-10-CM I50.9 Heart failure, unspecified ALBERTO DENNISON Encounter Template Text not used by [place] Assessments - Encounter Diagnoses This section includes the primary and secondary diagnoses documented for the Encounter. Date/Time Primary/Secondary Diagnosis Diagnosis Name Provider Source Mar 13, 2024 08:22 PM PRIMARY Heart failure, unspecified [facility] Plan of Treatment: Future Appointments (+ 6 months) and Future Tests (+/- 45 days) The Plan of Treatment section includes future care activities for the patient from all [place] treatmentfacilities. This section includes future appointments and [...] of theEncounter. The data comes from all [place] treatment facilities. Test Date/Time Test Type Test Details Facility Name Jan 31, 2024 01:42 PM Consult Order COMMUNITY CARE-[facility] NON-SKILLED HOME HEALTH AIDE Cons Down Filler's Choice [place] Feb 05, 2024 12:00 AM Laboratory - Chemistry Order CREATININE (eGFR 2020) BLOOD (SST-SERUM) [facility] Feb 05, 2024 12:00 AM Laboratory - Chemistry Order LIVER FUNCTION BLOOD (SST-SERUM) [facility] Feb 05, 2024 12:00 AM Laboratory - Chemistry Order CBC BLOOD (LAV-BLOOD) [facility] Feb 05, 2024 12:00 AM Laboratory - Chemistry Order PT & INR (COUMADIN) BLOOD (BLUE-PLASMA) [facility] Apr 03, 2024 02:43 PM Consult Order [facility] OT [place] M/POPC OUTPT [facility] Down Filler's Choice [facility] Apr 03, 2024 02:43 PM Consult Order [facility] NUTRI TION SPOPC OUTPT [facility] Down Filler's [facility] Encounter Notes: All associated encounter notes This section contains the clinical notes associated to the Encounter. Date/Time Encounter Note(s) Provider Source Mar 13, 2024 12:30 PM HB[facility] NOTE: LOCAL TITLE: [facility] IN-HOME SCREENING STANDARD TITLE: [facility] NOTE DATE OF NOTE: MAR 13, 2024@12:30 ENTRY DATE: MAR 13, 2024@20:23:18 AUTHOR: MATEUS DENNISON EXP COSIGNER: URGENCY: STATUS: COMPLETED [facility] In Home Screening for admission: Patient identified by verified name/address with picture ID: Yes AND either/or: Address/contact telephone numbers on CPRS chart verified with Patient/Family/Caregiver: Yes Any special directions getting to or into patients residence: No IN HOME SCREENING: Please check [facility] staff in home for screening: [facility] RN Please check who was present during visit: Patient, Children Other medical providers: (please list specialists) receives all care at [facility] Cardiology Dr. Smith PCP Dr. Wilson ADVANCED CARE PLANNING: Does patient have a Durable Power of Transfer Driver? Does patient have an Health Care proxy/MOLST? Would patient/family be willing to provide any copies to [facility]? Home Evaluation: Neat: Yes Cluttered: No Hoarding: No Egress to two exits: Yes Evidence of infestations: No Animals: Yes(agrees to move animals to a secured area if requested): Yes Weapons: No Weapons locked away and/or patient agrees to secure away from area where care is being provided: Evidence of substance abuse: No Geographical area appear safe: Yes (may ask Patient/Family/Caregiver if there are any issues in the neighborhood that would affect [facility] staff safety) Patient Evaluation: Homebound: Yes Memory issues: No(optional for SW/FORM BLOCK MAKER to perform cognitive screening) Frequent falls: No Frequent hospitalizations: No Frequent ER visits: Yes Discussion re: [facility] PCP being main primary care provider, willing to have medications prescribed by [facility] PCP patient agrees Yes Does patient manage his medications: No, Who is assisting with medication management? Oanh BARBER [place]: No Vision Difficulties: Yes Self-Care deficits(dressing/bathing/i ncontinence):Yes Food in home: Yes Able to prepare meals: No Karnofsky performance Scale: Normal; no complaints; no evidence of disease 100 Able to carry on normal activity; minor signs or symptoms of disease 90 Normal activity with effort; some signs or symptoms of disease 80 Cares for self; unable to carry on normal activity or do work 70 Requires occasional assistance, but is able to care for most personal needs 60 Requires considerable assistance and frequent medical care 50 Disabled; requires special care and assistance 40 Severely disabled; hospitalization indicated although not imminent 30 Very sick; hospitalization necessary; requires active support treatment 20 Moribund; fatal processes progressing rapidly 10 Score50 Medical Needs (check all that apply) Catheterizations Equipment in home Select all that apply: Guardian Alert (or like), Shower/tub chair, Walkers, Wheelchairs Caregiver Need Evaluation: Does patient have a caregiver? Yes Is caregiver willing to provide support (i.e. Prefill/adjust meds/take patient to specialty appointments, etc.)Yes Caregiver Name: Christina Relationship to patient: Son Caregiver address: same as Caregiver telephone #[phone] Other support in home: Community VNAs: Yes(if yes describe what for/estimated length of service) indefinite for suprapubic Cath management Community services(Elder care or PACE type programs): No(if yes, describe why Elder Services are in home, and if PACE type program would not be candidate for [facility]) Home Health Aides: Yes If Yes: VA or non-VA and hours/days at home Private paid help: If Yes hours/days at home Mental Health Evaluation: Patient sees [facility] MH providers Last appt: Next appt: Check boxes for below: Depression symptoms PTSD Patient Input to Care Planning Process: What does the patient/caregiver see as major health problem(s) Suprapubic catheter What does patient/caregiver perceive as major need(s)? accessibility to bathroom How does patient/caregiver think that [facility] can assist the patient? provide the care he needs in the home since he has a hard time coming out SERVICES NEEDED 1. Candidate accepting of [facility] Special Population PACT program Yes, in home screening to be presented at IDT meeting to determine admission. If appropriate, Pt. will be notified of admission appointment by SANAM IRBY. REVIEW OF [facility] PROGRAM Discussed the following with /caregiver: - Program description and criteria Yes - Composition of team Yes - Frequency of steam press operator visits Yes - Copays, if applicable $15 per visit No - Exempt/Non Exempt medications Yes Additional Notes: is an 88 year old male, Not [place]. Lives in single family home in [place] with son Christina and grandson Darell who assist him with ADLs and IADLs. currently receives 13 hours of SPARE HAND CARDING through [facility] which are cover by his grandson. reports his son is his transportation to appointments but he is having a harder time with going out for his appointments. Kaela was given a manual wheelchair to use as needed since he reports some days are harder than other as it relates to mobility. Kaela has [place] VNA going every two weeks for medication management and suprapubic Cath management. In addition kaela received meals on wheels. Kaela gets his medications from [facility] in [place] but would like to move all medications to [place] pharmacy since he doesn't have copays now. What kaela sees as his major health problem for him is his suprapubic catheter as this a something new he has been dealing with for a few months and he continues to have issues with bleeding and not fully healing. Kaela would benefit from interdisciplinary team, recommendation for admission to [facility]. /michell/ ALBERTO DENNISON RN [facility] inclusion special education teacher Signed: 03/13/2024 20:59 CHARLEY DENNISON [place] [facility] TR[facility]
--- OUTSIDE RECORDS SUMMARY | 2024-04-08 09:57 | XMS_ITS | Encounter Summary ---
Author Name [place] Address [address] [place] [address] Care Team Providers Care Canvas Worker Apprentice Name Role Phone ARDEN TRENT Primary Care [...] PART A Apr 22, 2001 PART A [id number] JENIFER ANAYA PATIENT MEDICARE (WNR) MEDICARE (M) PART B Apr 22, 2001 PART B [id number] JENIFER ANAYA PATIENT [employer] MEDIGAP PLAN F May 11, 2008 PLANF [id number] JENIFER ANAYA PATIENT Selected Encounter This section includes the information on record at [place] for the Encounter. Date/Time Encounter Type Encounter Description Reason Pro vider Source Feb 13, 2024 12:00 AM Outpatient Encounter EVENT (HISTORICAL) IHE Encounter Template Text not used by [place] Plan of Treatment: Future Appointments (+ 6 months) and Future Tests (+/- 45 days) The Plan of Treatment section includes future care [facility] for [facility] This section includes future appointments and future orders which are active, pending or scheduled. Future Appointments This section includes appointments that were scheduled to occur 6 months from the date of the Encounter, up to a maximum of 20 appointments. The data comes from all [place] treatment facilities. Appointment Date/Time Appointment Type Appointme [...] of theEncounter. The data comes from all [facility]. Test Date/Time Test Type Test Details Facility Name Jan 31, 2024 01:42 PM Consult Order COMMUNITY CARE-GEC NON-SKILLED HOME HEALTH AIDE Cons Traffic Operations Manager's Choice [place] Feb 05, 2024 12:00 AM Laboratory - Chemi stry Order CREATININE (eGFR 2020) BLOOD (SST-SERUM) [facility] Feb 05, 2024 12:00 AM Laboratory - Chemi stry Order LIVER FUNCTION BLOOD (SST-SERUM) [facility] Feb 05, 2024 12:00 AM Laboratory - Chemi stry Order CBC BLOOD (LAV-BLOOD) [facility] Feb 05, 2024 12:00 AM Laboratory - Chemi stry Order PT & INR (COUMADIN) BLOOD (BLUE-PLASMA) [facility]
--- OUTSIDE RECORDS SUMMARY | 2024-04-08 09:58 | XMS_ITS | Encounter Summary ---
Author Name [place] Address [address] [place] [address] Care Team Providers Care Early Childhood Associate Name Role Phone ARDEN TRENT Primary Care [...] PART A Apr 22, 2001 PART A [id number] JENIFER ANAYA PATIENT MEDICARE (WNR) MEDICARE (M) PART B Apr 22, 2001 PART B [id number] JENIFER ANAYA PATIENT [employer] [place] [employer] MEDIGAP PLAN F May 11, 2008 PLANF [id number] JENIFER ANAYA PATIENT Selected Encounter This section includes the information on record at [place] for the Encounter. Date/Time Encounter Type Encounter Description Reason Pro vider Source Jan 07, 2024 02:29 PM Outpatient Encounter PRIMARY CARE/MEDICINE IHE Encounter Template [...] 20 appointments. The data comes from all [facility]. Appointment Date/Time Appointment Type Appointme nt Facility Name Jan 16, 2024 01:00 PM AMBULATORY - MEDICINE [facility] Feb 04, 2024 08:00 AM AMBULATORY - MEDICINE [facility] [place] [facility] Mar 10, 2024 10:30 AM AMBULATORY - REHAB MEDICIN E [facility] Active, Pending, and Scheduled Orders This section includes a listing of several types of active, pending, and scheduled orders, including clinic medications orders, diagnostic test orders, procedure orders and consult orders; where the start date of the order is 45 days before the date of the Encounter or 45 days after the date of theEncounter. The data comes from all [facility]. Test Date/Time Test Type Test Details Facility Name Jan 31, 2024 01:42 PM Consult Order COMMUNITY CARE-GEC NON-SKILLED HOME HEALTH AIDE Cons Barrel Bung Remover And Dumper's Choice [facility] Feb 05, 2024 12:00 AM Laboratory - Chemi stry Order CREATININE (eGFR 2020) BLOOD (SST-SERUM) [facility] Feb 05, 2024 12:00 AM Laboratory - Chemi stry Order LIVER FUNCTION BLOOD (SST-SERUM) [facility] Feb 05, 2024 12:00 AM Laboratory - Chemi stry Order CBC BLOOD (LAV-BLOOD) [facility] Feb 05, 2024 12:00 AM Laboratory - Chemi stry Order PT & INR (COUMADIN) BLOOD (BLUE-PLASMA) [facility] Encounter Notes: All associated encounter notes This section contains the clinical notes associated to the Encounter. Date/Time Encounter Note(s) Provider Source Jan 07, 2024 02:29 PM ADMINISTRATIVE NOT E: LOCAL TITLE: ADMINISTRATIVE NOTE STANDARD TITLE: ADMINISTRATIVE NOTE DATE OF NOTE: JAN 07, 2024@14:29 ENTRY DATE: JAN 07, 2024@14:30 AUTHOR: DEEJAY GARCIA COSIGNER: URGENCY: STATUS: COMPLETED THIS OPTICAL DISPENSER CALLED TO REMIND OF [facility] APPT WITH CWM/SO/PACT EIGHT PROVIDER FOR 01/16/2024 AT 13:00 FOR NEW PATIENT 60 MINUTE APPT. [facility]/ [facility] VNA: ANDREE STUDIO MODEL/ RTC TO PACT 7 #TECHNICIAN SUBMARINE CABLE EQUIPMENT#. COULD NOT LEAVE A MESSAGE. THIS OPTICAL DISPENSER MAILED APPT REMINDER LETTER TO [facility]. /michell/ RICHELLE GARCIA ADVANCED CHEMISTRY INSTRUCTOR Signed: 01/07/2024 14:34 RICHELLE GARCIAFIELD
--- OUTSIDE RECORDS SUMMARY | 2024-04-08 09:58 | XMS_ITS | Encounter Summary ---
Author Name [place] Address [address] [place] [address] Care Team Providers Care Sound Effects Technician Name Role Phone ARDEN TRENT Primary Care [...] PART A Apr 22, 2001 PART A [id number] JENIFER ANAYA PATIENT MEDICARE (WNR) MEDICARE (M) PART B Apr 22, 2001 PART B [id number] JENIFER ANAYA PATIENT [employer] MEDIGAP PLAN F May 11, 2008 PLANF [id number] JENIFER ANAYA PATIENT Selected Encounter This section includes the information on record at [place] for the Encounter. Date/Time Encounter Type Encounter Description Reason Pro vider Source Nov 27, 2023 09:29 AM Outpatient Encounter PRIMARY CARE/MEDICINE IHE Encounter [...] 20 appointments. The data comes from all [place] treatment facilities. Appointment Date/Time Appointment Type Appointme nt Facility Name Jan 16, 2024 01:00 PM AMBULATORY - MEDICINE [facility] Feb 04, 2024 08:00 AM AMBULATORY - MEDICINE [facility] [place] [facility] Mar 10, 2024 10:30 AM AMBULATORY - REHAB MEDICIN E [facility] [place] [facility] Encounter Notes: All associated encounter notes This section contains the clinical notes associated to the Encounter. Date/Time Encounter Note(s) Provider Source Nov 27, 2023 09:30 AM LETTERS: LOCAL TITLE: PATIENT LETTER (B) STANDARD TITLE: LETTERS DATE OF NOTE: NOV 27, 2023@09:30 ENTRY DATE: NOV 27, 2023@09:30:19 AUTHOR: BRYAN HOFFMAN EXP COSIGNER: URGENCY: STATUS: COMPLETED [address] [address] [phone] * JENIFER ANAYA [address] [place] [address] Date: NOV 27, 2023 Dear [place]: Our goal at the [facility] is to provide you with quality medical care. We have been trying to reach you unsuccessfully to schedule a new patient appt with you at the [facility], [address] [place] [address] Please call us at Saturday through Saturday, 8am-4pm to schedule this appointment. Sincerely, Office Staff for: Primary Care [facility] [address] [place] [address] T [phone] F [phone] BRYAN HOFFMAN [place] Nov 27, 2023 09:29 AM ADMINISTRATIVE NOT E: LOCAL TITLE: ADMINISTRATIVE NOTE STANDARD TITLE: ADMINISTRATIVE NOTE DATE OF NOTE: NOV 27, 2023@09:29 ENTRY DATE: NOV 27, 2023@09:29:45 AUTHOR: BRYAN HOFFMAN EXP COSIGNER: URGENCY: STATUS: COMPLETED Biz[employer] Developer called to [X} Schedule primary care appt [ ] Reschedule primary care appt. [ ] Remind of upcoming primary care appt. SPOKE WITH: [ ] Fasting blood work needed, and vet reminded. [ ] Non fasting blood work needed, and vet reminded. [X} No labs needed. [ ] UNABLE TO REACH : [X} Left voicemail. [ ] Unable to leave voicemail. [ ] No phone number available/no working phone number [X} Mailed Letter /michell/ BRYAN MILIAN Signed: 11/27/2023 09:30 BRYAN HOFFMAN [place]
--- OUTSIDE RECORDS SUMMARY | 2024-04-08 09:58 | XMS_ITS | Encounter Summary ---
Author Name [facility] [place] Address [address] [place] [address] Care Team Providers Care Hide Tanner Name Role Phone ARDEN TRENT Primary Care [...] PART A Apr 22, 2001 PART A [id number] JENIFER ANAYA PATIENT MEDICARE (WNR) MEDICARE (M) PART B Apr 22, 2001 PART B [id number] JENIFER ANAYA PATIENT [employer] MEDIGAP PLAN F May 11, 2008 PLANF [id number] JENIFER ANAYA PATIENT Selected Encounter This section includes the information on record at [place] for the Encounter. Date/Time Encounter Type Encounter Description Reason Pro vider Source Jan 28, 2024 03:01 PM Outpatient Encounter PRIMARY CARE/MEDICINE IHE Encounter [...] 20 appointments. The data comes from all [facility] facilities. Appointment Date/Time Appointment Type Appointme nt Facility Name Feb 04, 2024 08:00 AM [facility] Mar 10, 2024 10:30 AM [facility] Active, Pending, and Scheduled Orders This section includes a listing of several types of active, pending, and scheduled orders, including clinic medications orders, diagnostic test orders, procedure orders and consult orders; where the start date of the order is 45 days before the date of the Encounter or 45 days after the date of theEncounter. The data comes from all [facility]. Test Date/Time Test Type Test Details Facility Name Jan 31, 2024 01:42 PM Consult Order COMMUNITY CARE-GEC NON-SKILLED HOME HEALTH AIDE Cons Printer Slotter [facility] Feb 05, 2024 12:00 AM Laboratory - Chemi stry Order CREATININE (eGFR 2020) BLOOD (SST-SERUM) [facility] Feb 05, 2024 12:00 AM Laboratory - Chemi stry Order LIVER FUNCTION BLOOD (SST-SERUM) [facility] Feb 05, 2024 12:00 AM Laboratory - Chemi stry Order CBC BLOOD (LAV-BLOOD) [facility] Feb 05, 2024 12:00 AM Laboratory - Chemi stry Order PT & INR (COUMADIN) BLOOD (BLUE-PLASMA) [facility] Encounter Notes: All associated encounter notes This section contains the clinical notes associated to the Encounter. Date/Time Encounter Note(s) Provider Source Jan 28, 2024 03:51 PM ADDENDUM: LOCAL TITLE: Addendum STANDARD TITLE: ADDENDUM DATE OF NOTE: JAN 28, 2024@15:51:05 ENTRY DATE: JAN 28, 2024@15:51:05 AUTHOR: MARY MON EXP COSIGNER: URGENCY: STATUS: COMPLETED ADDING PCP TO REVIEW AND ADVISE /michell/ MARY MON LPN Licensed Practical Nurse Signed: 01/28/2024 15:51 Receipt Acknowledged By: 02/14/2024 16:20 /es/ IZAIAH HANKINS MD PRIMARY CARE PHYSICIAN --- Original Document --- 01/28/24 WALK-IN NOTE PRIMARY CARE (T): <====Click to Start Advanced Medical Support [place] presents to the Primary Care clinic with the following request: [ X ]Medication Renewal/Refill [ ]Consultation with Team RN [ ]Symptoms [ ]Other The [place] states they are: [ ]Waiting [ X ]Not Waiting No Walk in visit scheduled with PACT Nurse [ X ] At this encounter the [place]'s demographics were verified. [ X ] At this encounter the [place]'s Insurance information was verified. [ X ] At this encounter the below scheduled visits for the were discussed and appointment reminder card was offered. Future appointments: No data available Prescription for Eliquis from [facility] Cardiovascular placed in provider mailbox. /michell/ TRINITY MILIAN Signed: 01/28/2024 15:04 Receipt Acknowledged By: 01/30/2024 11:03 /es/ NANCY YOUNG RN-BC REGISTERED NURSE 01/28/2024 15:50 /es/ MARY MON LPN Licensed Practical Nurse MARY MON Jan 28, 2024 03:04 PM CLINICAL WARNING: LOCAL TITLE: COMMUNICATION AUTHORIZATION STANDARD TITLE: CLINICAL WARNING DATE OF NOTE: JAN 28, 2024@15:04 ENTRY DATE: JAN 28, 2024@15:04:52 AUTHOR: TRINITY MOLINA EXP COSIGNER: URGENCY: STATUS: COMPLETED Family/Caregiver Name: Primary: CHRISTINA DARIUS Secondary: MITESH MCCOY Tertiary: Authorized Clinic & Topics: All Clinic's & Topics: Primary Care: Mental Health: Specialty Care: [id number] Protected Info: [ ] Drug Abuse [ ] Alcohol Abuse [ ] HIV [ ] Sickle Cell Expiration: Date: [ ] At [X] Through [ ] At end of care /michell/ TRINITY MILIAN Signed: 01/28/2024 15:05 TRINITY MOLINA Jan 28, 2024 03:02 PM PRIMARY CARE NOTE: LOCAL TITLE: WALK-IN NOTE PRIMARY CARE (T) STANDARD TITLE: PRIMARY CARE NOTE DATE OF NOTE: JAN 28, 2024@15:02 ENTRY DATE: JAN 28, 2024@15:02:06 AUTHOR: TRINITY MOLINA EXP COSIGNER: URGENCY: STATUS: COMPLETED WALK-IN NOTE PRIMARY CARE (T) Has ADDENDA <====Click to Start Advanced Medical Support [place] presents to the Primary Care clinic with the following request: [ X ]Medication Renewal/Refill [ ]Consultation with Team RN [ ]Symptoms [ ]Other The states they are: [ ]Waiting [ X ]Not Waiting No Walk in visit scheduled with PACT Nurse [ X ] At this encounter the [place]'s demographics were verified. [ X ] At this encounter the 's Insurance information was verified. [ X ] At this encounter the below scheduled visits for the were discussed and appointment reminder card was offered. Future appointments: No data available Prescription for Eliquis from [facility] Cardiovascular placed in provider mailbox. /michell/ TRINITY MILIAN Signed: 01/28/2024 15:04 Receipt Acknowledged By: 01/30/2024 11:03 /michell/ NANCY YOUNG RN-BC REGISTERED NURSE 01/28/2024 15:50 /michell/ AMRY MON LPN Licensed Practical Nurse 01/28/2024 ADDENDUM STATUS: COMPLETED ADDING PCP TO REVIEW AND ADVISE /michell/ MARY MON LPN Licensed Practical Nurse Signed: 01/28/2024 15:51 Receipt Acknowledged By: * AWAITING SIGNATURE * IZAIAH HANKINS CASSANDRA M [place]
--- OUTSIDE RECORDS SUMMARY | 2024-04-08 09:58 | XMS_ITS ---
Author Name [place] Address [address] [place] [address] Care Team Providers Care Registered Appraiser Name Role Phone ARDEN TRENT Primary Care [...] PART A Apr 22, 2001 PART A [id number] JENIFER ANAYA PATIENT MEDICARE (WNR) MEDICARE (M) PART B Apr 22, 2001 PART B [id number] JENIFER ANAYA PATIENT [employer] MEDIGAP PLAN F May 11, 2008 PLANF [id number] JENIFER ANAYA PATIENT Selected Encounter This section includes the information on record at [place] for the Encounter. Date/Time Encounter Type Encounter Description Reason Pro vider Source Dec 05, 2023 11:19 AM Outpatient Encounter ADMIN PAT ACTIVTIES (MASNONCT) IHE Encounter Template Text not used by [place] Plan of Treatment: Future Appointments (+ 6 months) and Future Tests (+/- 45 days) The Plan of Treatment section includes future care activities for the patient from all [place] treatmentfacilities. This section includes future appointments and future orders which are active, pending or scheduled. Future Appointments This section includes appointments that were scheduled to occur 6 months from the date of the Encounter, up to a maximum of 20 appointments. The data comes from all [place] treatment facilities. Appointment Date/Time Appointment Type Appointme nt Facility Name Jan 16, 2024 01:00 PM [facility] Feb 04, 2024 08:00 AM AM[facility]ULATORY [facility] MEDICINE [place] [facility] [place] [place] [facility] Mar 10, 2024 10:30 AM AMBUL[facility] Encounter Notes: All associated encounter notes This section contains the clinical notes associated to the Encounter. Date/Time Encounter Note(s) Provider Source Dec 05, 2023 11:19 AM ADMINISTRATIVE NOT E: LOCAL TITLE: CCC: SCHEDULING ADMINISTRATION STANDARD TITLE: ADMINISTRATIVE NOTE DATE OF NOTE: DEC 05, 2023@11:19:33 ENTRY DATE: DEC 05, 2023@11:19:33 AUTHOR: UZMA HAYS EXP COSIGNER: URGENCY: STATUS: COMPLETED Patient Demographics Patient Name: JENIFER ANAYA Patient Primary Phone: [phone] Patient Primary [address]: [address] [place] [id number] Patient : 1935 Patient Age: 88 Caller/Recipient Relation to Patient: Other If Other Describe Relation to Patient: vna Caller Name: willis sw Administrative Administrative Note Comments: Willis motion picture set worker from [facility] returned call and would like a call back [phone]. Thank you IMPORTANT: This note was created by [facility] Clinical Contact Center staff. Please do not alert the staff member by adding them as a signer for future communications. Alerts are not monitored by this user. /michell/ UZMA HAYS Signed: 12/05/2023 11:19 Receipt Acknowledged By: 12/05/2023 12:07 /michell/ UZMA [facility]
--- OUTSIDE RECORDS SUMMARY | 2024-04-08 09:58 | XMS_ITS | Encounter Summary ---
Author Name [place] Organization [place] Address [address] [place] [address] Care Team Providers Care Supervisor Wheel Shop Name Role Phone ARDEN TRENT Primary Care [...] PART A Apr 22, 2001 PART A [id number] JENIFER ANAYA PATIENT MEDICARE (WNR) MEDICARE (M) PART B Apr 22, 2001 PART B [id number] JENIFER ANAYA PATIENT [employer] MEDIGAP PLAN F May 11, 2008 PLANF [id number] JENIFER ANAYA PATIENT Selected Encounter This section includes the information on record at [place] for the Encounter. Date/Time Encounter Type Encounter Description Reason Pro vider Source Dec 05, 2023 12:10 PM Outpatient Encounter PRIMARY CARE/MEDICINE IHE Encounter Template Text not used by [place] Plan of Treatment: Future Appointments (+ 6 [...] 20 appointments. The data comes from all [place] treatment facilities. Appointment Date/Time Appointment Type Appointme nt Facility Name Jan 16, 2024 01:00 PM [facility] Feb 04, 2024 08:00 AM AMBULATORY [facility] MEDICINE [facility] [place] [facility] Mar 10, 2024 10:30 AM AMBULATORY - REHAB MEDICIN E [facility] [place] [facility] Encounter Notes: All associated encounter notes This section contains the clinical notes associated to the Encounter. Date/Time Encounter Note(s) Provider Source Dec 12, 2023 09:46 AM ADDENDUM: LOCAL TITLE: Addendum STANDARD TITLE: ADDENDUM DATE OF NOTE: DEC 12, 2023@09:46:04 ENTRY DATE: DEC 12, 2023@09:46:05 AUTHOR: KENROY ADAME EXP COSIGNER: URGENCY: STATUS: COMPLETED Pt is not enrolled. AMSA please call to cancel appt and let know he can call eligibility for further questions. /michell/ KENROY ADAME EXHAUST EQUIPMENT OPERATOR POULTRY OFFAL ICER Signed: 12/12/2023 09:47 Receipt Acknowledged By: 12/12/2023 09:56 /michell/ RICHELLE GARCIA ADVANCED POULTRY OFFAL ICER --- Original Document --- 12/05/23 PATIENT LETTER (B): [facility] [address] [place] [phone] * [phone] * JENIFER ANAYA [address] [place], [place] [address] Date: DEC 05, 2023 Dear [place]: Welcome to patient aligned care team 8 (PACT 8) with Dr. Gloria Peres. Prior to meeting you at your new patient appointment we are requesting some of your past medical history so that we may provide you with the exceptional care you deserve. Please note that it is very helpful to have these documents at least two days prior to your appointment date as the more information, we have the better we will be able to meet your needs: * Last History & Physical * Immunization records * Medication list * Diagnosis list * Most recent labs * Diagnostic screens (Colonoscopy, Abdominal Aortic Aneurysm screen, Mammograms, PAPS, etc.) You may either drop the requested records off in person to [address] [place] [address] or you may have them faxed to: [phone] ATTN: PACT 8 *Also please complete the enclosed new patient packet and drop it off at our [place] location: [address] [place] [address]* If you have any questions, please do not hesitate to contact the Department of 's Affairs call center at . We look forward to providing your health care! Sincerely, [place] [facility] [address] [place] [phone] * [phone] * 12/05/2023 ADDENDUM STATUS: COMPLETED This marketing writer scheduled a new patient 60 minute VVC appointment with Dr. Peres on 12/19/2023 at 3:00pm. New patient packet mailed. /es/ BRYAN MILIAN Signed: 12/05/2023 12:18 Receipt Acknowledged By: 12/05/2023 12:24 /es/ RICHELLE GARCIA ADVANCED POULTRY OFFAL ICER 12/05/2023 16:08 /es/ KIKE JIANG, RN REGISTERED NURSE for JENNIFER FU 12/06/2023 15:39 /es/ NOEMI DONOVAN LPN PHLEBOTOMIST LAB ASSISTANT for MARY MICHELLEYAA 12/12/2023 ADDENDUM STATUS: UNSIGNED You may not VIEW this UNSIGNED Addendum. KENROY ADAME Dec 05, 2023 12:14 PM ADDENDUM: LOCAL TITLE: Addendum STANDARD TITLE: ADDENDUM DATE OF NOTE: DEC 05, 2023@12:14:38 ENTRY DATE: DEC 05, 2023@12:14:39 AUTHOR: BRYAN HOFFMAN EXP COSIGNER: URGENCY: STATUS: COMPLETED This marketing writer scheduled a new patient 60 minute VVC appointment with Dr. Peres on 12/19/2023 at 3:00pm. New patient packet mailed. /es/ BRYAN MILIAN Signed: 12/05/2023 12:18 Receipt Acknowledged By: 12/05/2023 12:24 /michell/ RICHELLE GARCIA ADVANCED POULTRY OFFAL ICER 12/05/2023 16:08 /es/ KIKE JIANG RN REGISTERED NURSE for JENNIFER FU 12/06/2023 15:39 /es/ NOEMI DONOVAN LPN PHLEBOTOMIST LAB ASSISTANT for MARY MON --- Original Document --- 12/05/23 PATIENT LETTER (B): [facility] [address] [place] [phone] * [phone] * JENIFER STEIN ANAYA [address] [place], [place] [address] Date: DEC 05, 2023 Dear [place]: Welcome to patient aligned care team 8 (PACT 8) with Dr. Gloria Peres. Prior to meeting you at your new patient appointment we are requesting some of your past medical history so that we may provide you with the exceptional care you deserve. Please note that it is very helpful to have these documents at least two days prior to your appointment date as the more information, we have the better we will be able to meet your needs: * Last History & Physical * Immunization records * Medication list * Diagnosis list * Most recent labs * Diagnostic screens (Colonoscopy, Abdominal Aortic Aneurysm screen, Mammograms, PAPS, etc.) You may either drop the requested records off in person to [address] [place] [address] or you may have them faxed to: [phone] ATTN: PACT 8 *Also please complete the enclosed new patient packet and drop it off at our [place] location: [address] [place] [address]* If you have any questions, please do not hesitate to contact the Department of 's Affairs call center at . We look forward to providing your health care! Sincerely, [place] [facility] [address] [address] [phone] * [phone] * BRYAN HOFFMAN [place] Dec 05, 2023 12:10 PM LETTERS: LOCAL TITLE: PATIENT LETTER (B) STANDARD TITLE: LETTERS DATE OF NOTE: DEC 05, 2023@12:10 ENTRY DATE: DEC 05, 2023@12:10:05 AUTHOR: BRYAN HOFFMAN EXP COSIGNER: URGENCY: STATUS: COMPLETED PATIENT LETTER (B) Has ADDENDA [facility] [address] [place] [phone] * [phone] * JENIFER ANAYA [address], [place] [address] Date: DEC 05, 2023 Dear [place]: Welcome to patient aligned care team 8 (PACT 8) with Dr. Gloria Peres. Prior to meeting you at your new patient appointment we are requesting some of your past medical history so that we may provide you with the exceptional care you deserve. Please note that it is very helpful to have these documents at least two days prior to your appointment date as the more information, we have the better we will be able to meet your needs: * Last History & Physical * Immunization records * Medication list * Diagnosis list * Most recent labs * Diagnostic screens (Colonoscopy, Abdominal Aortic Aneurysm screen, Mammograms, PAPS, etc.) You may either drop the requested records off in person to [address] [place] [address] or you may have them faxed to: [phone] ATTN: PACT 8 *Also please complete the enclosed new patient packet and drop it off at our [place] location: [address] [place] [address]* If you have any questions, please do not hesitate to contact the Department of [place]'s Affairs call center at . We look forward to providing your health care! Sincerely, [place] [facility] [address] [place] [phone] * [phone] * 12/05/2023 ADDENDUM STATUS: COMPLETED This marketing writer scheduled a new patient 60 minute VVC appointment with Dr. Peres on 12/19/2023 at 3:00pm. New patient packet mailed. /es/ BRYAN MILIAN Signed: 12/05/2023 12:18 Receipt Acknowledged By: 12/05/2023 12:24 /es/ RICHELLE GARCIA ADVANCED POULTRY OFFAL ICER 12/05/2023 16:08 /es/ KIKE JIANG RN REGISTERED NURSE for JENNIFER FU 12/06/2023 15:39 /es/ NOEMI DONOVAN LPN PHLEBOTOMIST LAB ASSISTANT for MARY 12/12/2023 ADDENDUM STATUS: COMPLETED Pt is not enrolled. AMSA please call to cancel appt and let know he can call eligibility for further questions. /michell/ KENROY ADMAE EXHAUST EQUIPMENT OPERATOR POULTRY OFFAL ICER Signed: 12/12/2023 09:47 Receipt Acknowledged By: 12/12/2023 09:56 /michell/ RICHELLE GARCIA ADVANCED POULTRY OFFAL ICER 12/12/2023 ADDENDUM STATUS: COMPLETED THIS GROUP LEADER SEMICONDUCTOR PROCESSING HAD SPOKEN TO TO CANCEL VVC APPT WITH CWM/SO/PACT EIGHT PROVIDER ON 12/19/2023 AT 15:00. IS NOT ENROLLED INTO [facility]. THIS GROUP LEADER SEMICONDUCTOR PROCESSING HAD PROVIDED WITH THE 'S BENEFIT AND ELIGIBLITY NUMBER [phone]. /michell/ RICHELLE GARCIA ADVANCED POULTRY OFFAL ICER Signed: 12/12/2023 09:58 BRYAN HOFFMAN
--- OUTSIDE RECORDS SUMMARY | 2024-04-08 09:58 | XMS_ITS | Encounter Summary ---
Author Name Department [place] Organization [place] Address [address] [place] [address] Care Team Providers Care Buyer Renter Name Role Phone ARDEN TRENT Primary Care [...] PART A Apr 22, 2001 PART A [id number] JENIFER ANAYA PATIENT MEDICARE (WNR) MEDICARE (M) PART B Apr 22, 2001 PART B [id number] JENIFER ANAYA PATIENT [employer] MEDIGAP PLAN F May 11, 2008 PLANF [id number] JENIFER ANAYA PATIENT Selected Encounter This section includes the information on record at [place] for the Encounter. Date/Time Encounter Type Encounter Description Reason Pro vider Source Jan 01, 2024 09:54 AM Outpatient Encounter PRIMARY CARE/MEDICINE IHE Encounter [...] The data comes from all [facility]. Appointment Date/Time Appointment Type Appointme nt Facility Name Jan 16, 2024 01:00 PM AMBULATORY - MEDICINE [facility] Feb 04, 2024 08:00 AM [facility] [place] [facility] [place] [facility] Mar 10, 2024 10:30 AM AMB[facility] Active, Pending, and Scheduled Orders This section includes a listing of several types of active, pending, and scheduled orders, including clinic medications orders, diagnostic test orders, procedure orders and consult orders; where the start date of the order is 45 days before the date of the Encounter or 45 days after the date of theEncounter. The data comes from all [facility]. Test Date/Time Test Type Test Details Facility Name Jan 31, 2024 01:42 PM Consult Order COMMUNITY CARE-GEC NON-SKILLED HOME HEALTH AIDE Cons [employer] [facility] [place] Feb 05, 2024 12:00 AM Laboratory - Chemi stry Order CREATININE (eGFR 2020) BLOOD (SST-SERUM) [facility] Feb 05, 2024 12:00 AM Laboratory - Chemi stry Order LIVER FUNCTION BLOOD (SST-SERUM) [facility] Feb 05, 2024 12:00 AM Laboratory - Chemi stry Order CBC BLOOD (LAV-BLOOD) [facility] Feb 05, 2024 12:00 AM Laboratory - Chemi stry Order PT & INR (COUMADIN) BLOOD (BLUE-PLASMA) [facility] Encounter Notes: All associated encounter notes This section contains the clinical notes associated to the Encounter. Date/Time Encounter Note(s) Provider Source Jan 01, 2024 09:56 AM PREVENTIVE MEDICIN E NURSING NOTE: LOCAL TITLE: CLINICAL REMINDERS/NURSING STANDARD TITLE: PREVENTIVE MEDICINE NURSING NOTE DATE OF NOTE: JAN 01, 2024@09:56 ENTRY DATE: JAN 01, 2024@09:56:34 AUTHOR: JENNIFER FU COSIGNER: URGENCY: STATUS: COMPLETED COVID-19 Immunization: Pfizer Patient received a prior dose of the [employer] COVID-19 Vaccine. Documented: COVID-19 (PFIZER), MRNA, LNP-S, PF, 30 MCG/0.3 ML DOSE Historical Date Administered: May 27, 2020 Series: Series 1 Information Source: FROM OTHER PROVIDER Comment: noted in [facility] medical record Documented: COVID-19 (PFIZER), MRNA, LNP-S, BIVALENT, PF, 30 MCG/0.3 ML DOSE Historical Date Administered: Jun 17, 2020 Series: Series 1 Information Source: FROM OTHER PROVIDER Comment: noted in [facility] medical record Documented: COVID-19 (PFIZER), MRNA, LNP-S, PF, 30 MCG/0.3 ML DOSE Historical Date Administered: Mar 02, 2021 Series: Series 1 Information Source: FROM OTHER PROVIDER Comment: noted in [facility] medical record Documented: COVID-19 (PFIZER), MRNA, LNP-S, PF, EMELINA-SUCROSE, 30 MCG/0.3 ML (AGES 12+ YEARS) Historical Date Administered: September 11, 2021 Series: Series 1 Information Source: FROM OTHER PROVIDER Comment: noted in [facility] medical record Documented: COVID-19 (PFIZER), MRNA, LNP-S, BIVALENT, PF, 30 MCG/0.3 ML DOSE Historical Date Administered: Feb 14, 2022 Series: Series 1 Information Source: FROM OTHER PROVIDER Comment: noted in [facility] medical record Documented: COVID-19 (PFIZER), MRNA, LNP-S, BIVALENT, PF, 30 MCG/0.3 ML DOSE Historical Date Administered: Jan 22, 2023 Series: Series 1 Information Source: FROM OTHER PROVIDER Comment: noted in [facility] medical record /michell/ NANCY YOUNG RN-BC REGISTERED NURSE Signed: 01/01/2024 10:03 JENNIFER FU Jan 01, 2024 09:54 AM NONVA NOTE: LOCAL TITLE: NON-VA MEDICAL RECORD SUMMARY STANDARD TITLE: NONVA NOTE DATE OF NOTE: JAN 01, 2024@09:54 ENTRY DATE: JAN 01, 2024@09:54:58 AUTHOR: JENNIFER FUIGNER: URGENCY: STATUS: COMPLETED NON VA Medical Report This data contains relevant information copied & pasted from a NON VA source. Efforts are made to ensure congruency between this note & the original. This note not DOES NOT contain the entirety of the original. Please see [facility] to view the original note/document. ____ COMPLETE MEDICAL RECORD Place of Service: [facility] medical records dept. Upcoming Appointments: 01/16/2024 13:00 CWM/SO/VVC/PACT EIGHT WH SENT TO [facility]ANN[facility] /es/ TANIYA YOUNGN RN-BC REGISTERED NURSE Signed: 01/01/2024 09:56 JENNIFER FU
--- OUTSIDE RECORDS SUMMARY | 2024-04-08 09:58 | XMS_ITS | Encounter Summary ---
Author Name [facility] [place] Organization [facility] [place] Address [address] [place] [address] Care Team Providers Care Lion Trainer Name Role Phone ARDEN TRENT Primary Care [...] PART A Apr 22, 2001 PART A [id number] JENIFER ANAYA PATIENT MEDICARE (WNR) MEDICARE ([place]) PART B Apr 22, 2001 PART B [id number] JENIFER ANAYA PATIENT [employer] PLAN F May 11, 2008 PLANF [id number] JENIFER ANAYA PATIENT Selected Encounter This section includes the information on record at [place] for the Encounter. Date/Time Encounter Type Encounter Description Reason Provider Source Jan 21, 2024 12:30 PM HC PRO PHONE CALL 5-10 MIN TELEPHONE [facility] ICD-10-CM I50.9 Heart failure, unspecified ALBERTO DENNISON Encounter Template Text not used by [place] Assessments - Encounter Diagnoses This section includes the primary and secondary diagnoses documented for the Encounter. Date/Time Primary/Secondary Diagnosis Diagnosis Name Provider Source Jan 21, 2024 12:30 PM PRIMARY Heart failure, unspecified JESIALBERTO [facility] Plan of Treatment: Future Appointments (+ 6 months) and Future Tests (+/- 45 days) The Plan of Treatment section includes future care activities for the patient [facility] [place] [facility] This section includes future appointments and future orders which are active, pending or scheduled. Future Appointments This section includes appointments that were scheduled to occur 6 months from the date of the Encounter, up to a maximum of 20 appointments. The data comes from all [facility] facilities. Appointment Date/Time Appointment Type Appointme nt Facility Name Feb 04, 2024 08:00 AM AMBULATORY - MEDICINE [facility] Mar 10, 2024 10:30 AM AMBULATORY - REHAB MEDICIN [facility] Active, Pending, and Scheduled Orders This section includes a listing of several types of active, pending, and scheduled orders, including clinic medications orders, diagnostic test orders, procedure orders and consult orders; where the start date of the order is 45 days before the date of the Encounter or 45 days after the date of theEncounter. The data comes from all [facility]. Test Date/Time Test Type Test Details Facility Name Jan 31, 2024 01:42 PM Consult Order [facility] NON-SKILLED HOME HEALTH AIDE Cons [employer] [facility] [place] Feb 05, 2024 12:00 AM Laboratory - Chemi stry Order CREATININE (eGFR 2020) BLOOD (SST-SERUM) [facility] Feb 05, 2024 12:00 AM Laboratory - Chemi stry Order LIVER FUNCTION BLOOD (SST-SERUM) [facility] Feb 05, 2024 12:00 AM Laboratory - Chemi stry Order CBC BLOOD (LAV-BLOOD) [facility] Feb 05, 2024 12:00 AM Laboratory - Chemi stry Order PT & INR (COUMADIN) BLOOD (BLUE-PLASMA) [facility] Encounter Notes: All associated encounter notes This section contains the clinical notes associated to the Encounter. Date/Time Encounter Note(s) Provider Source Jan 28, 2024 12:30 PM ADDENDUM: LOCAL TITLE: Addendum STANDARD TITLE: ADDENDUM DATE OF NOTE: JAN 28, 2024@12:30:30 ENTRY DATE: JAN 28, 2024@12:30:31 AUTHOR: ITALO ALVARADO EXP COSIGNER: URGENCY: STATUS: COMPLETED Please enter SW consult. Thank you. /michell/ CORDELL Lobo, MANAGER DEMAND Cloth Desizing Range Operator Chief Signed: 01/28/2024 12:31 Receipt Acknowledged By: 01/28/2024 16:12 /es/ NANCY YOUNG RN-BC REGISTERED NURSE 01/28/2024 13:49 /es/ MARY MON LPN Licensed Practical Nurse === --- Original Document --- 01/21/24 [facility] TELEPHONE PRE-ENROLLMENT SCREENING: [facility] Telephone Pre-Enrollment Screening Yes [place] confirms he/she is primarily home-bound. No Any VNA/PACE type health care agencies in the home currently Yes [place] has need for & is willing to have multiple disciplines enter the home. Yes [place] confirms he/she is willing to transfer Primary Care provider to the [facility] [employer] DEPARTMENT CHAIR/PA. Ask/List other health care providers, i.e. specialists, community PCP: community pcp- Dimitri Wilson cardiology- Dr Cuello urology- Dr Modi Yes [place] is aware of copay status. ( would like to have copays waved Yes [place] has identified caregiver: Canelo Fletcher Yes lives with: Canelo Fletcher and Grandcanelo Lozoya Yes [place] aware that a home screening visit will be arranged. Chart review completed: main health issues are: Does Pt. have any specific goals? Ex, decrease in falls, decrease in HA1C, stay at home as long as possible etc. ADRIANA and DORAOS not available, CAN 65 ADDITIONAL COMMENTS: Succasunna is an 88 year old male, Not [place]. Lives with in single family home with son Christina and grandcanelo Lozoya who assist him with ADLs and IADLs. Succ[place]unna reports his son is his transportation to appointments but he is having a harder time with going out for his appointments. has past medical history of HTN, HLP, DM type2, urinary retention, CHF and Atrial fibrillation on anticoagulation. has [facility] going twice [facility], no other services reported. currently has copays for meds and treatments. did shared being incontinence, adding current PCP for ?catastrophic disability. [place] interested in [facility], will discuss on next IDT with plan for In home screen (this is dependent on eligibility for waved copays). Environment/Personal Safety Questions: Are you aware of structural concerns with your home? No Now or in the past 6 months have bed bugs been identified in your home? No Do you or anyone else in the home smoke? No Do you or anyone living with you use home oxygen? No Are there any animals in the home? Yes, Cats Do you or anyone living with you have substance abuse issues? (alcohol/street or prescription drugs)No Are there any weapons in the home? No How are they stored? Do you have a legal history (arrests,incarcerations,p robation,parole,child custody issues)? No Does Pt. have any other safety concerns? No Recommendation: ARRANGE HOME SCREENING APPOINTMENT /michell/ ALBERTO DENNISON RN [facility] airplane engineer Signed: 01/21/2024 15:52 01/21/2024 ADDENDUM STATUS: COMPLETED interested in [facility] but has copays for medications and treatment. reported being incontinence and needing assistance with ADLs. Could catastrophic disability be completed in order to move forward with [facility]? /michell/ ALBERTO DENNISON RN [facility] airplane engineer Signed: 01/21/2024 15:55 Receipt Acknowledged By: 01/21/2024 16:08 /michell/ MARY MON LPN Licensed Practical Nurse 01/24/2024 16:19 /michell/ IZAIAH HANKINS MD PRIMARY CARE PHYSICIAN 01/24/2024 ADDENDUM STATUS: COMPLETED Please place the requested consult and hold it for my signature. Thank you /seven HANKINS MD PRIMARY CARE PHYSICIAN Signed: 01/24/2024 16:19 Receipt Acknowledged By: 01/28/2024 16:12 /michell/ NANCY YOUNG RN-BC REGISTERED NURSE 01/28/2024 ADDENDUM STATUS: COMPLETED interested in [facility] but has copays for medications and treatment. reported being incontinence and needing assistance with ADLs. Could catastrophic disability be completed in order to move forward with [facility]? Current provider able to sign as per above addendum. /michell/ ALBERTO DENNISON RN [facility] airplane engineer Signed: 01/28/2024 11:51 Receipt Acknowledged By: 01/28/2024 12:32 /michell/ CORDELL Lobo, DIEGO Cloth Desizing Range Operator Chief ITALO ALVARADO [facility] Jan 28, 2024 11:50 AM ADDENDUM: LOCAL TITLE: Addendum STANDARD TITLE: ADDENDUM DATE OF NOTE: JAN 28, 2024@11:50:27 ENTRY DATE: JAN 28, 2024@11:50:28 AUTHOR: MATEUS DENNISON COSIGNER: URGENCY: STATUS: COMPLETED interested in [facility] but has copays for medications and treatment. reported being incontinence and needing assistance with ADLs. Could catastrophic disability be completed in order to move forward with [facility]? Current provider able to sign as per above addendum. /michell/ ALBERTO DENNISON RN [facility] airplane engineer Signed: 01/28/2024 11:51 Receipt Acknowledged By: 01/28/2024 12:32 /michell/ CORDELL Lobo, DIEGO Cloth Desizing Range Operator Chief === --- Original Document --- 01/21/24 [facility] TELEPHONE PRE-ENROLLMENT SCREENING: [facility] Telephone Pre-Enrollment Screening Yes [place] confirms he/she is primarily home-bound. No Any VNA/PACE type health care agencies in the home currently Yes has need for & is willing to have multiple disciplines enter the home. Yes confirms he/she is willing to transfer Primary Care provider to the [facility] [employer] DEPARTMENT CHAIR/PA. Ask/List other health care providers, i.e. specialists, community PCP: community pcp- Dimitri Wilson cardiology- Dr Cuello urology- Dr Modi Yes is aware of copay status. ( would like to have copays waved Yes [place] has identified caregiver: Canelo Fletcher Yes lives with: Son Christina and Grandcanelo Lozoya Yes aware that a home screening visit will be arranged. Chart review completed: main health issues are: Does Pt. have any specific goals? Ex, decrease in falls, decrease in HA1C, stay at home as long as possible etc. ADRIANA and NOSOS not available, CAN 65 ADDITIONAL COMMENTS: Succ[place]na is an 88 year old male, Not [place]. Lives with in single family home with son Christina and grandcanelo Lozoya who assist him with ADLs and IADLs. reports his son is his transportation to appointments but he is having a harder time with going out for his appointments. [place] has past medical history of HTN, HLP, DM type2, urinary retention, CHF and Atrial fibrillation on anticoagulation. [place] has [facility] going twice weekly, no other services reported. [place] currently has copays for meds and treatments. did shared being incontinence, adding current PCP for ?catastrophic disability. [place] interested in [facility], will discuss on next IDT with plan for In home screen (this is dependent on eligibility for waved copays). Environment/Personal Safety Questions: Are you aware of structural concerns with your home? No Now or in the past 6 months have bed bugs been identified in your home? No Do you or anyone else in the home smoke? No Do you or anyone living with you use home oxygen? No Are there any animals in the home? Yes, Cats Do you or anyone living with you have substance abuse issues? (alcohol/street or prescription drugs)No Are there any weapons in the home? No How are they stored? Do you have a legal history (arrests,incarcerations,p robation,parole,child custody issues)? No Does Pt. have any other safety concerns? No Recommendation: ARRANGE HOME SCREENING APPOINTMENT /es/ ALBERTO DENNISON RN [facility] airplane engineer Signed: 01/21/2024 15:52 01/21/2024 ADDENDUM STATUS: COMPLETED [place] interested in [facility] but has copays for medications and treatment. reported being incontinence and needing assistance with ADLs. Could catastrophic disability be completed in order to move forward with [facility]? /michell/ ALBERTO DENNISON RN [facility] airplane engineer Signed: 01/21/2024 15:55 Receipt Acknowledged By: 01/21/2024 16:08 /es/ MARY MON LPN Licensed Practical Nurse 01/24/2024 16:19 /michell/ IZAIAH HANKINS MD PRIMARY CARE PHYSICIAN 01/24/2024 ADDENDUM STATUS: COMPLETED Please place the requested consult and hold it for my signature. Thank you /seven HANKINS MD PRIMARY CARE PHYSICIAN Signed: 01/24/2024 16:19 Receipt Acknowledged By: * AWAITING SIGNATURE * JENNIFER FU 01/28/2024 ADDENDUM STATUS: COMPLETED Please enter SW consult. Thank you. /michell/ CORDELL Lobo, MANAGER DEMAND Cloth Desizing Range Operator Chief Signed: 01/28/2024 12:31 Receipt Acknowledged By: * AWAITING SIGNATURE * JENNIFER FU * AWAITING SIGNATURE * MARY MON [facility] [place] [facility] Jan 24, 2024 04:19 PM ADDENDUM: LOCAL TITLE: Addendum STANDARD TITLE: ADDENDUM DATE OF NOTE: JAN 24, 2024@16:19:36 ENTRY DATE: JAN 24, 2024@16:19:37 AUTHOR: IZAIAH HANKINS EXP COSIGNER: URGENCY: STATUS: COMPLETED Please place the requested consult and hold it for my signature. Thank you /seven HANKINS MD PRIMARY CARE PHYSICIAN Signed: 01/24/2024 16:19 Receipt Acknowledged By: 01/28/2024 16:12 /michell/ NANCY YOUNG RN-BC REGISTERED NURSE === --- Original Document --- 01/21/24 [facility] TELEPHONE PRE-ENROLLMENT SCREENING: [facility] Telephone Pre-Enrollment Screening Yes confirms he/she is primarily home-bound. No Any VNA/PACE type health care agencies in the home currently Yes [place] has need for & is willing to have multiple disciplines enter the home. Yes [place] confirms he/she is willing to transfer Primary Care provider to the [facility] [employer] DEPARTMENT CHAIR/PA. Ask/List other health care providers, i.e. specialists, community PCP: community pcp- Dimitri Wilson cardiology- Dr Cuello urology- Dr Modi Yes [place] is aware of copay status. ( would like to have copays waved Yes [place] has identified caregiver: Canelo Fletcher Yes lives with: Canelo Fletcher and Kimmy Lozoya Yes [place] aware that a home screening visit will be arranged. Chart review completed: main health issues are: Does Pt. have any specific goals? Ex, decrease in falls, decrease in HA1C, stay at home as long as possible etc. ADRIANA and PATI not available, CAN 65 ADDITIONAL COMMENTS: Succ[place]na is an 88 year old male, Not [place]. Lives with in single family home with son Christina and grandcanelo Lozoya who assist him with ADLs and IADLs. [place] reports his son is his transportation to appointments but he is having a harder time with going out for his appointments. [place] has past medical history of HTN, HLP, DM type2, urinary retention, CHF and Atrial fibrillation on anticoagulation. [place] has [facility] going twice weekly, no other services reported. [place] currently has copays for meds and treatments. did shared being incontinence, adding current PCP for ?catastrophic disability. interested in [facility], will discuss on next IDT with plan for In home screen (this is dependent on eligibility for waved copays). Environment/Personal Safety Questions: Are you aware of structural concerns with your home? No Now or in the past 6 months have bed bugs been identified in your home? No Do you or anyone else in the home smoke? No Do you or anyone living with you use home oxygen? No Are there any animals in the home? Yes, Cats Do you or anyone living with you have substance abuse issues? (alcohol/street or prescription drugs)No Are there any weapons in the home? No How are they stored? Do you have a legal history (arrests,incarcerations,p robation,parole,child custody issues)? No Does Pt. have any other safety concerns? No Recommendation: ARRANGE HOME SCREENING APPOINTMENT /michell/ ALBERTO DENNISON RN [facility] airplane engineer Signed: 01/21/2024 15:52 01/21/2024 ADDENDUM STATUS: COMPLETED interested in [facility] but has copays for medications and treatment. reported being incontinence and needing assistance with ADLs. Could catastrophic disability be completed in order to move forward with [facility]? /michell/ ALBERTO DENNISON RN [facility] airplane engineer Signed: 01/21/2024 15:55 Receipt Acknowledged By: 01/21/2024 16:08 /michell/ MARY MON LPN Licensed Practical Nurse 01/24/2024 16:19 /michell/ IZAIAH HANKINS MD PRIMARY CARE PHYSICIAN 01/28/2024 ADDENDUM STATUS: COMPLETED interested in [facility] but has copays for medications and treatment. reported being incontinence and needing assistance with ADLs. Could catastrophic disability be completed in order to move forward with [facility]? Current provider able to sign as per above addendum. /michell/ ALBERTO DENNISON RN [facility] airplane engineer Signed: 01/28/2024 11:51 Receipt Acknowledged By: 01/28/2024 12:32 /es/ CORDELL Lobo, MANAGER DEMAND Cloth Desizing Range Operator Chief 01/28/2024 ADDENDUM STATUS: COMPLETED Please enter SW consult. Thank you. /michell/ CORDELL Lobo, [facility] Cloth Desizing Range Operator Chief Signed: 01/28/2024 12:31 Receipt Acknowledged By: 01/28/2024 16:12 /es/ NANCY YOUNG RN-BC REGISTERED NURSE 01/28/2024 13:49 /michell/ MARY MON LPN Licensed Practical Nurse IZAIAH HANKINS [facility] Jan 21, 2024 03:52 PM ADDENDUM: LOCAL TITLE: Addendum STANDARD TITLE: ADDENDUM DATE OF NOTE: JAN 21, 2024@15:52:17 ENTRY DATE: JAN 21, 2024@15:52:17 AUTHOR: MATEUS DENNISON EXP COSIGNER: URGENCY: STATUS: COMPLETED interested in [facility] but has copays for medications and treatment. reported being incontinence and needing assistance with ADLs. Could catastrophic disability be completed in order to move forward with PC? /es/ ALBERTO DENNISON RN [facility] airplane engineer Signed: 01/21/2024 15:55 Receipt Acknowledged By: 01/21/2024 16:08 /es/ MARY MON LPN Licensed Practical Nurse 01/24/2024 16:19 /es/ IZAIAH HANKINS MD PRIMARY CARE PHYSICIAN === --- Original Document --- 01/21/24 [facility] TELEPHONE PRE-ENROLLMENT SCREENING: [facility]-PA[facility] Telephone Pre-Enrollment Screening Yes [place] confirms he/she is primarily home-bound. No Any VNA/PACE type health care agencies in the home currently Yes [place] has need for & is willing to have multiple disciplines enter the home. Yes [place] confirms he/she is willing to transfer Primary Care provider to the [facility] [employer] DEPARTMENT CHAIR/PA. Ask/List other health care providers, i.e. specialists, community PCP: community pcp- Dimitri Wilson cardiology- Dr Cuello urology- Dr Modi Yes is aware of copay status. ( would like to have copays waved Yes has identified caregiver: Canelo Fletcher Yes lives with: Canelo Fletcher and Grandcanelo Lozoya Yes [place] aware that a home screening visit will be arranged. Chart review completed: main health issues are: Does Pt. have any specific goals? Ex, decrease in falls, decrease in HA1C, stay at home as long as possible etc. ADRIANA and DORAOS not available, CAN 65 ADDITIONAL COMMENTS: Succ[place] is an 88 year old male, Not [place]. Lives with in single family home with son Christina and grandcanelo Lozoya who assist him with ADLs and IADLs. [place] reports his son is his transportation to appointments but he is having a harder time with going out for his appointments. has past medical history of HTN, HLP, DM type2, urinary retention, CHF and Atrial fibrillation on anticoagulation. [place] has [facility] going twice weekly, no other services reported. [place] currently has copays for meds and treatments. [place] did shared being incontinence, adding current PCP for ?catastrophic disability. [place] interested in [facility], will discuss on next IDT with plan for In home screen (this is dependent on eligibility for waved copays). Environment/Personal Safety Questions: Are you aware of structural concerns with your home? No Now or in the past 6 months have bed bugs been identified in your home? No Do you or anyone else in the home smoke? No Do you or anyone living with you use home oxygen? No Are there any animals in the home? Yes, Cats Do you or anyone living with you have substance abuse issues? (alcohol/street or prescription drugs)No Are there any weapons in the home? No How are they stored? Do you have a legal history (arrests,incarcerations,p robation,parole,child custody issues)? No Does Pt. have any other safety concerns? No Recommendation: ARRANGE HOME SCREENING APPOINTMENT /michell/ ALBERTO DENNISON RN [facility] airplane engineer Signed: 01/21/2024 15:52 01/24/2024 ADDENDUM STATUS: UNSIGNED You may not VIEW this UNSIGNED Addendum. MATEUS DENNISON [facility] [place] [facility] [place] [facility] Jan 21, 2024 12:30 PM [facility] TELEPHONE ENCOUNTER NOTE: LOCAL TITLE: [facility] TELEPHONE PRE-ENROLLMENT SCREENING STANDARD TITLE: [facility] TELEPHONE ENCOUNTER NOTE DATE OF NOTE: JAN 21, 2024@12:30 ENTRY DATE: JAN 21, 2024@14:05:45 AUTHOR: MATEUS DENNISON EXP COSIGNER: URGENCY: STATUS: COMPLETED [facility] TELEPHONE PRE-ENROLLMENT SCREENING Has ADDENDA [facility]-PACT Telephone Pre-Enrollment Screening Yes confirms he/she is primarily home-bound. No Any VNA/PACE type health care agencies in the home currently Yes [place] has need for & is willing to have multiple disciplines enter the home. Yes confirms he/she is willing to transfer Primary Care provider to the [facility] [employer] DEPARTMENT CHAIR/PA. Ask/List other health care providers, i.e. specialists, community PCP: community pcp- Dimitri Wilson cardiology- Dr Cuello urology- Dr Modi Yes [place] is aware of copay status. ( would like to have copays waved Yes has identified caregiver: Canelo Fletcher Yes [place] lives with: Son Christina and Grandcanelo Lozoya Yes aware that a home screening visit will be arranged. Chart review completed: main health issues are: Does Pt. have any specific goals? Ex, decrease in falls, decrease in HA1C, stay at home as long as possible etc. ADRIANA and NOSOS not available, CAN 65 ADDITIONAL COMMENTS: [place] is an 88 year old male, Not [place]. Lives with in single family home with son Christina and grandcanelo Lozoya who assist him with ADLs and IADLs. reports his son is his transportation to appointments but he is having a harder time with going out for his appointments. has past medical history of HTN, HLP, DM type2, urinary retention, CHF and Atrial fibrillation on anticoagulation. [place] has [facility] going twice weekly, no other services reported. [place] currently has copays for meds and treatments. [place] did shared being incontinence, adding current PCP for ?catastrophic disability. interested in [facility], will discuss on next IDT with plan for In home screen (this is dependent on eligibility for waved copays). Environment/Personal Safety Questions: Are you aware of structural concerns with your home? No Now or in the past 6 months have bed bugs been identified in your home? No Do you or anyone else in the home smoke? No Do you or anyone living with you use home oxygen? No Are there any animals in the home? Yes, Cats Do you or anyone living with you have substance abuse issues? (alcohol/street or prescription drugs)No Are there any weapons in the home? No How are they stored? Do you have a legal history (arrests,incarcerations,p robation,parole,child custody issues)? No Does Pt. have any other safety concerns? No Recommendation: ARRANGE HOME SCREENING APPOINTMENT /es/ ALBERTO DENNISON RN [facility] airplane engineer Signed: 01/21/2024 15:52 01/21/2024 ADDENDUM STATUS: COMPLETED [place] interested in [facility] but has copays for medications and treatment. reported being incontinence and needing assistance with ADLs. Could catastrophic disability be completed in order to move forward with [facility]? /michell/ ALBERTO DENNISON RN [facility] airplane engineer Signed: 01/21/2024 15:55 Receipt Acknowledged By: 01/21/2024 16:08 /michell/ MARY MON LPN Licensed Practical Nurse 01/24/2024 16:19 /michell/ IZAIAH HANKINS MD PRIMARY CARE PHYSICIAN 01/24/2024 ADDENDUM STATUS: COMPLETED Please place the requested consult and hold it for my signature. Thank you /michell/ IZAIAH HANKINS MD PRIMARY CARE PHYSICIAN Signed: 01/24/2024 16:19 Receipt Acknowledged By: * AWAITING SIGNATURE * JENNIFER FU 01/28/2024 ADDENDUM STATUS: COMPLETED interested in [facility] but has copays for medications and treatment. reported being incontinence and needing assistance with ADLs. Could catastrophic disability be completed in order to move forward with [facility]? Current provider able to sign as per above addendum. /michell/ ALBERTO DENNISON RN [facility] airplane engineer Signed: 01/28/2024 11:51 Receipt Acknowledged By: 01/28/2024 12:32 /michell/ CORDELL Lobo, MANAGER DEMAND Cloth Desizing Range Operator Chief 01/28/2024 ADDENDUM STATUS: COMPLETED Please enter SW consult. Thank you. /michell/ CORDELL Lobo, MANAGER DEMAND Cloth Desizing Range Operator Chief Signed: 01/28/2024 12:31 Receipt Acknowledged By: * AWAITING SIGNATURE * JENNIFER FU * AWAITING SIGNATURE * MARY MON GABR [facility]
--- OUTSIDE RECORDS SUMMARY | 2024-04-08 09:58 | XMS_ITS | Encounter Summary ---
Author Name Department of Vetera Affairs ([place]) Organization [facility] Address [address] [place] [address] Care Team Providers Care Electrician Marine Name Role Phone ARDEN TRENT Primary Care [...] PART A Apr 22, 2001 PART A [id number] JENIFER ANAYA PATIENT MEDICARE (WNR) MEDICARE (M) PART B Apr 22, 2001 PART B [id number] JENIFER ANAYA PATIENT [employer] MEDIGAP PLAN F May 11, 2008 PLANF [id number] JENIFER ANAYA PATIENT Selected Encounter This section includes the information on record at ID for the Encounter. Date/Time Encounter Type Encounter Description Reason Provider Source Jan 16, 2024 01:00 PM OFFICE O/P NEW MOD 45 MIN PRIMARY CARE/MEDICINE ICD-10-CM I10 Essential (primary) hypertension IZAIAH HANKINS Encounter Template Text not used by [facility] Assessments - Encounter Diagnoses This section includes the primary and secondary diagnoses documented for the Encounter. Date/Time Primary/Secondary Diagnosis Diagnosis Name Provider Source Jan 16, 2024 02:03 PM PRIMARY Essential (primary) hypertension IZAIAH HANKINS [place] Jan 16, 2024 02:03 PM SECONDARY Athscl heart disease of [place] coronary artery w/o ang pctrs IZAIAH HANKINS [place] Jan 16, 2024 02:03 PM SECONDARY Heart failure, unspecified IZAIAH HANKINS [place] Jan 16, 2024 02:03 PM SECONDARY Hyperlipidemia, unspecified IZAIAH HANKINS [place] Jan 16, 2024 02:03 PM SECONDARY Type 2 diabetes mellitus without complications IZAIAH HANKINS [place] Jan 16, 2024 02:03 PM SECONDARY Unspecified atrial fibrillation IZAIAH HANKINS [place] Plan of Treatment: Future Appointments (+ 6 months) and Future Tests (+/- 45 days) The Plan of Treatment section includes future care activities for the patient from all [facility] This section includes future appointments and future orders which are active, pending or scheduled. Future Appointments This section includes appointments that were scheduled to occur 6 months from the date of the Encounter, up to a maximum of 20 appointments. The data comes from all ID treatment [facility]. Appointment Date/Time Appointment Type Appointme nt Facility Name Feb 04, 2024 08:00 AM AMBULATORY - MEDICINE ID C [facility] Mar 10, 2024 10:30 AM AMBULATORY - REHAB MEDICIN E [facility] Active, Pending, and Scheduled Orders This section includes a listing of several types of active, pending, and scheduled orders, including clinic medications orders, diagnostic test orders, procedure orders and consult orders; where the start date of the order is 45 days before the date of the Encounter or 45 days after the date of theEncounter. The data comes from all [facility]. Test Date/Time Test Type Test Details Facility Name Jan 31, 2024 01:42 PM Consult Order [facility] NON-SKILLED HOME HEALTH AIDE Cons Doctor Of Chiropractic's Choice [facility] Feb 05, 2024 12:00 AM Laboratory - Chemi stry Order CREATININE (eGFR 2020) BLOOD (SST-SERUM) [facility] Feb 05, 2024 12:00 AM Laboratory - Chemi stry Order LIVER FUNCTION BLOOD (SST-SERUM) [facility] Feb 05, 2024 12:00 AM Laboratory - Chemi stry Order CBC BLOOD (LAV-BLOOD) [facility] Feb 05, 2024 12:00 AM Laboratory - Chemi stry Order PT & INR (COUMADIN) BLOOD (BLUE-PLASMA) [facility] Social History: Smoking Status (Most current) and Tobacco Use (All prior to encounter date) This section includes the most current, and the historical, smoking and tobacco- related health factors from the ID facility where the Encounter took place. Current Smoking Status This section includes the most current smoking, or tobacco-related health factor, from the ID facility where the Encounter took place. Date/Time Current Smoking Status Comment Facil ity Jan 16, 2024 01:00 PM VA-TOBACCO FORMER USER [facility] Tobacco Use History This section includes a history of the smoking, or tobacco-related health factors, that were collected on or before the date of the Encounter. The data comes from the ID facility where the Encounter took place. Date/Time Smoking Status/Tobacco Use Comment F acility Jan 16, 2024 01:00 PM VA-TOBACCO QUIT 15 YRS OR MORE [facility] Encounter Notes: All associated encounter notes This section contains the clinical notes associated to the Encounter. Date/Time Encounter Note(s) Provider Source Jan 16, 2024 01:10 PM PREVENTIVE MEDICIN E NURSING NOTE: LOCAL TITLE: CLINICAL REMINDERS/NURSING STANDARD TITLE: PREVENTIVE MEDICINE NURSING NOTE DATE OF NOTE: JAN 16, 2024@13:10 ENTRY DATE: JAN 16, 2024@13:10:38 AUTHOR: MARY MON COSIGNER: URGENCY: STATUS: COMPLETED Advance Directive Screen MH AD: Patient does not have a completed advance directive on file at any facility, ID or outside. S/he is not interested in completing one at this time. The patient received education about Advance Directives and written notification of his/her rights. Comment: FORM WAS FAXED TO CLINIC SW AND VET STATED Suicide Screen: C-SSRS Screening [place] Suicide Severity Rating Scale (C-SSRS) screener 1. Over the past month, have you wished you were or wished you could go to sleep and not wake up? No 2. Over the past month, have you had any actual thoughts of killing yourself? No 3. Over the past month, have you been thinking about how you might do this? Response not required due to responses to other questions. 4. Over the past month, have you had these thoughts and had some intention of acting on them? Response not required due to responses to other questions. 5. Over the past month, have you started to work out or worked out the details of how to kill yourself? Response not required due to responses to other questions. 6. If yes, at any time in the past month did you intend to carry out this plan? Response not required due to responses to other questions. 7. In your lifetime, have you ever done anything, started to do anything, or prepared to do anything to end your life (for example, collected pills, obtained a gun, gave away valuables, went to the roof but didn't jump)? No 8. If YES, was this within the past 3 months? Response not required due to responses to other questions. Homelessness/Food Insecurity Screen: In the past 2 months, have you been living in stable housing that you own, rent, or stay in as part of a household? Yes - Living in stable housing. Are you worried or concerned that in the next 2 months you may NOT have stable housing that you own, rent, or stay in as part of a household? No - Not worried about housing near future The reports the following: Within the past 12 months, you worried whether your food would run out before you got money to buy more. Never true Within the past 12 months, the food you bought just didn't last and you didn't have money to get more. Never true Falls & Incontinence Screen: Falls Screen: During the past 12 months, did the patient report any falls? 4. No falls within the past year. Incontinence Screen: During the past 12 months, has the patient has any characteristics of incontinence (ability, voiding, leakage, etc.)? No incontinence. Pneumococcal Conjugate Vaccine (PCV15/PCV20): Virtual/Telehealth Visit - Patient educated on the need for receiving Pneumococcal conjugate vaccine either at VA or outside facility. Preferred Language: What is your, or your caregiver's preferred language for healthcare? Preferred Language: Armenian PTSD Screening: PC-PTSD-5 A PTSD screening test (PC-PTSD-5) was negative (score=0). IN THE PAST MONTH, have you ever had any experience that was so frightening, horrible or traumatic. For example: A serious accident or fire a physical or sexual assault or abuse An earthquake or flood A war Seeing someone be killed or seriously injured Having a loved one through homicide or suicide 1. Have you ever experienced this kind of event? NO 2. Had nightmares about the event(s) or thought about the event(s) when you did not want to? Response not required due to responses to other questions. 3. Tried hard not to think about the event(s) or went out of your way to avoid situations that reminded you of the event(s)? Response not required due to responses to other questions. 4. Been constantly on guard, watchful, or easily startled? Response not required due to responses to other questions. 5. [place] numb or detached from people, activities, or your surroundings? Response not required due to responses to other questions. 6. [place] guilty or unable to stop blaming yourself or others for the event(s) or any problems the event(s) may have caused? Response not required due to responses to other questions. Tobacco Use Screening: The patient is a former tobacco user. The patient quit fifteen or more years ago. Influenza Immunization: Virtual/Telehealth Visit - Patient educated on the need for receiving influenza immunization either at ID or outside facility. Alcohol Use Screen (AUDIT-C): Alcohol Screen: SCREEN FOR ALCOHOL (AUDIT-C) An alcohol screening test (AUDIT-C) was negative (score=1). 1. How often did you have a drink containing alcohol in the past year? Consider a drink to be a 12 ounce can or bottle of regular beer, 8 ounces of malt liquor, a 5 ounce glass of table wine, or a 1.5 ounce shot of liquor (like scotch, gin, or vodka). Monthly or less 2. How many drinks containing alcohol did you have on a typical day when you were drinking in the past year? Zero drinks 3. How often did you have six or more drinks on one occasion in the past year? Never COVID-19 Immunization: Virtual/Telehealth Visit - Patient educated on the need for receiving COVID-19 (SARS-CoV-2) immunization either at VA or outside facility. Tdap Immunization: Virtual/Telehealth Visit - Patient educated on the need for receiving Tdap immunization either at ID or outside facility. Herpes Zoster (Shingles) Vaccine: Virtual/Telehealth Visit - Patient educated on the need for receiving Herpes Zoster (Shingles) immunization either at VA or outside facility. Sexual Orientation: The patient thinks of their sexual orientation as: Straight or Heterosexual RHS Screen: RHS Screen Environmental Check Screening was not completed at this time due to: Another adult present /es/ MARY MON LPN Licensed Practical Nurse Signed: 01/16/2024 13:13 MARY MON Jan 16, 2024 09:36 AM PHYSICIAN NOTE: LOCAL TITLE: MD NOTE STANDARD TITLE: PHYSICIAN NOTE DATE OF NOTE: JAN 16, 2024@09:36 ENTRY DATE: JAN 16, 2024@09:36:21 AUTHOR: IZAIAH HANKINS EXP COSIGNER: URGENCY: STATUS: COMPLETED HISTORY OF PRESENT ILLNESS: NEW PATIENT JENIFER ANAYA, is a 88 yo MALE , who presents at the [facility] via [facility] to meet the new PCP. He would like to establish connection with a VA PCP to be able to access services. Patient clinical social work therapist Jes is present during this visit non va providers pcp- Dimitri Wilson cardiology- dr delarosa urology- Dr Modi Active problems - Computerized Problem List is the source for the following: -HTN -HLP -DM type2 -urinary retention -CHF -Atrial fibrillation on anticoagulation -comanaged The following VA and Non-VA meds were reconciled with patient: Active Outpatient Medications (including Supplies): No Medications Found see list ALLERGIES: ========= No known drug allergies LAB HISTORY: no new labs HISTORY: PERIOD OF SERVICE - [employer] FROM Apr TO Feb COMBAT SERVICE INDICATED: No REVIEW OF SYSTEMS: Negative for fever or chills; chronic easily fatigue with ambulation Negative for chest pain or shortness of breath at rest but mild sob with ambulation sometimes dry cough Negative for abdominal pain, nausea, vomiting positive for urinary retention - folley Negative for headaches or dizziness PHYSICAL EXAMINATION: Limited physical examinationthis is [facility] follow-up visit GENERAL: WD/WN , awake alert oriented x3, seems to be in NAD at this time PSYCHIATRIC: Good eye contact, affect normal, well dressed/groomed ASSESSMENT/PLAN: -HTN-blood pressure controlled with current medications Advised to keep low-salt diet The has limited exercise abilitywalks with a rolling walker for short distance The states monitors blood pressure daily; also he has a VNA coming 2- 3 times a week The systolic blood pressure usually is in 120s over low 130s-per patient -HLP-continue current medications and healthy diet -DM type2 -continue metformin and healthy diet The [place] states monitors glucose level before breakfast few times a week -urinary retention -chronic [place] -CHF -with no signs of exacerbation at this time Continue current medications and managed by hub bander -Atrial fibrillation on Coumadin; managed by his hub bander Follow-up monthly with Coumadin clinic in [facility] The patient states saw his hub bander on December 15-he was told he may try Eliquis but the medication is very expensive He would like to know if he can get the medications from the VA I advised and the clinical social work therapist present during this visit to have the prescription faxed to our office by his hub bander -comanaged Based on multiple medical chronic conditions, getting easily tired with short distance ambulation, he can benefit from home-based primary care The is in agreement with above Consultation placed The had recent blood work on December 26 with his non-VA PCP FOLLOW UP: ========= RTC -March bdnh-wz-frgh appointment with fasting labs for hypertension hyperlipidemia CAD A-fib diabetes Today's documentation was made using voice recognition software. This note may contain spelling/grammatical errors secondary to this software. Every effort is made to correct errors, but if mistakes are found they need to be taken in context. UPCOMING APPOINTMENTS: 01/16/2024 13:00 CWM/SO/VVC/PACT EIGHT WH No barriers; Patient understands and agrees to current treatment plan. If pt has any questions, concerns, or changes in current health status he/she will call or come in to the VA. /michell/ IZAIAH HANKINS MD PRIMARY CARE PHYSICIAN Signed: 01/16/2024 14:04 IZAIAH HANKINS [facility] Jan 16, 2024 09:32 AM TELEHEALTH NOTE: LOCAL TITLE: ID Medicalis PRIMARY CARE STANDARD TITLE: TELEHEALTH NOTE DATE OF NOTE: JAN 16, 2024@09:32 ENTRY DATE: JAN 16, 2024@09:32:55 AUTHOR: MARY MON EXP COSIGNER: URGENCY: STATUS: COMPLETED [employer] (VVC) Standard Documentation VVC Clinician Resources Only: E911 (Emergency Call Relay Center): [phone] [facility] Crisis Line - 988 then press #1. CWIsabel Suicide Coordinator - [phone], Ext. [phone]; Back-up Ext. [phone] ID Police, Marleen PIERCE - [phone] Introduction: Visit is being conducted by ID [employer]. identified with 2 identifiers: [X] Full Name [X] Date of [ ] ID ID Card Emergency Plan: [place] confirmed and/or provided the following information in case of emergency or technology failure. PATIENT PHONE - PHONE NUMBER [CELLULAR] - Is patient phone number correct, if not, enter below: 's phone number: [address], [place] [address] 's present location and address for appointment: Same address as above 's emergency contact name and phone number: Same address as above reported that location is private and safe: Yes Informed Consent: informed of the risks and benefits of Telehealth video care. [place] has the right to refuse video services. If refuses video visit, a ilez-gp-motg visit will be scheduled. verbalized consent for this video visit: Yes provided consent for any other persons present for visit: No If yes, who and relationship to patient: Secure visit: Visit was locked for security and privacy:Yes Vital Signs Visualized during video visit: Additional comment: /seven MON LPN Licensed Practical Nurse Signed: 01/16/2024 13:04 MARY MON [facility]
--- OUTSIDE RECORDS SUMMARY | 2024-04-08 09:58 | XMS_ITS ---
Author Name Department [place] Organization [place] Address [address] [place] [address] Care Team Providers Care Advertising Account Executive Name Role Phone ARDEN TRENT Primary Care [...] PART A Apr 22, 2001 PART A [id number] JENIFER ANAYA PATIENT MEDICARE (WNR) MEDICARE (M) PART B Apr 22, 2001 PART B [id number] JENIFER ANAYA PATIENT [employer] MEDIGAP PLAN F May 11, 2008 PLANF [id number] JENIFER ANAYA PATIENT Selected Encounter This section includes the information on record at [place] for the Encounter. Date/Time Encounter Type Encounter Description Reason Pro vider Source Dec 04, 2023 03:57 PM Outpatient Encounter ADMIN PAT ACTIVTIES (MASNONCT) [...] 16, 2024 01:00 PM [facility] Feb 04, 2024 08:00 AM AMBULAT[facility] MEDICINE [facility] Mar 10, 2024 10:30 AM AMBULATORY - REHAB MEDICIN E [facility] Encounter Notes: All associated encounter notes This section contains the clinical notes associated to the Encounter. Date/Time Encounter Note(s) Provider Source Dec 04, 2023 03:57 PM ADMINISTRATIVE NOT E: LOCAL TITLE: CCC: SCHEDULING ADMINISTRATION STANDARD TITLE: ADMINISTRATIVE NOTE DATE OF NOTE: DEC 04, 2023@15:57:14 ENTRY DATE: DEC 04, 2023@15:57:15 AUTHOR: MIRI MCGINNIS COSIGNER: URGENCY: STATUS: COMPLETED CCC: SCHEDULING ADMINISTRATION Has ADDENDA Patient Demographics Patient Name: JENIFER ANAYA Patient Primary Phone: [phone] Patient Primary Address: [address] [place] [address] Patient : 1935 Patient Age: 88 Call Back Number: [phone] Caller/Recipient Relation to Patient: Other If Other Describe Relation to Patient: [facility] Assurance Manager Caller Name: Jes Administrative Administrative Note Reason: Other Administrative Note Comments: Social Jes worker from [facility] and hospice is calling to set up appointment for and requesting a call back to schedule. [phone] IMPORTANT: This note was created by [facility] Clinical Contact Center staff. Please do not alert the staff member by adding them as a signer for future communications. Alerts are not monitored by this user. /michell/ MIRI YOUNGBLOOD CCC AMSA Signed: 12/04/2023 15:57 Receipt Acknowledged By: 12/04/2023 16:07 /michell/ BRYAN MILIAN 12/05/2023 ADDENDUM STATUS: COMPLETED This data analyst report writer called and left message for Jes the licensed clinical social worker at [facility], as requested to schedule a new patient appt. /michell/ BRYAN MILIAN Signed: 12/05/2023 09:12 MIRI MCGINNIS CNTRL W[facility]N [facility]
--- OUTSIDE RECORDS SUMMARY | 2024-04-08 09:59 | XMS_ITS | Encounter Summary ---
Author Name Department [place] Organization [place] Address [address] [place] [id number] Care Team Providers Care Medical Territory Manager Name Role Phone ARDEN TRENT Primary [...] PART A Apr 22, 2001 PART A [id number] JENIFER ANAYA PATIENT MEDICARE (WNR) MEDICARE (M) PART B Apr 22, 2001 PART B [id number] JENIFER ANAYA PATIENT [employer] MEDIGAP PLAN F May 11, 2008 PLANF [id number] JENIFER ANAYA PATIENT Selected Encounter This section includes the information on record at [place] for the Encounter. Date/Time Encounter Type Encounter Description Reason Pro vider Source Nov 21, 2023 12:00 AM Outpatient Encounter EVENT (HISTORICAL) IHE [...] 16, 2024 01:00 PM AMBULATORY - MEDICINE [facility] Feb 04, 2024 08:00 AM [facility] Mar 10, 2024 10:30 AM [facility]
--- OUTSIDE RECORDS SUMMARY | 2024-04-08 09:59 | XMS_ITS | Encounter Summary ---
Author Name Department of [place] Organization [place] Address [address] [place] [address] Care Team Providers Care Clay Washer Name Role Phone ARDEN TRENT Primary Care [...] PART A Apr 22, 2001 PART A [id number] JENIFER ANAYA PATIENT MEDICARE (WNR) MEDICARE (M) PART B Apr 22, 2001 PART B [id number] JENIFER ANAYA PATIENT [employer] MEDIGAP PLAN F May 11, 2008 PLANF [id number] JENIFER ANAYA PATIENT Selected Encounter This section includes the information on record at [place] for the Encounter. Date/Time Encounter Type Encounter Description Reason Pro vider Source Nov 16, 2023 12:00 AM Outpatient Encounter EVENT (HISTORICAL) [...] 20 appointments. The data comes from all [place] treatment facilities. Appointment Date/Time Appointment Type Appointme nt Facility Name Jan 16, 2024 01:00 PM AMBULATORY - MEDICINE [facility] Feb 04, 2024 08:00 AM [facility] Mar 10, 2024 10:30 AM [facility]
--- OUTSIDE RECORDS SUMMARY | 2024-04-08 09:59 | XMS_ITS | Encounter Summary ---
Author Name [facility] [place] Organization [facility] [place] Address [address] [place] [address] Care Team Providers Care Vocational Aide Name Role Phone ARDEN TRENT Primary Care [...] PART A Apr 22, 2001 PART A [id number] JENIFER ANAYA PATIENT MEDICARE (WNR) MEDICARE (M) PART B Apr 22, 2001 PART B [id number] JENIFER ANAYA PATIENT Door [address] [employer] MED[employer] PLAN F May 11, 2008 PLANF [id number] JENIFER ANAYA PATIENT Selected Encounter This section includes the information on record at [place] for the Encounter. Date/Time Encounter Type Encounter Description Reason Pro vider Source Nov 25, 2023 10:16 AM Outpatient Encounter ADMIN PAT ACTIVTIES (MASNONCT) IHE Encounter Template Text not used by [place] Plan of Treatment: Future Appointments (+ 6 months) and Future Tests (+/- 45 days) The Plan of Treatment section includes future care activities for the patient from all [place] treatmentfacilities. This section includes future appointments and future orders which are active, pending or scheduled. Future Appointments This section includes appointments that were scheduled to occur 6 months from the date of the Encounter, up to a maximum of 20 appointments. The data comes from all [place] treatment facilities. Appointment Date/Time Appointment Type Appointme nt Facility Name Jan 16, 2024 01:00 PM AMBULATORY - MEDICINE [facility] Feb 04, 2024 08:00 AM [facility] [place] [facility] Mar 10, 2024 10:30 AM [facility] Encounter Notes: All associated encounter notes This section contains the clinical notes associated to the Encounter. Date/Time Encounter Note(s) Provider Source Nov 26, 2023 02:53 PM ADDENDUM: LOCAL TITLE: Addendum STANDARD TITLE: ADDENDUM DATE OF NOTE: NOV 26, 2023@14:53:34 ENTRY DATE: NOV 26, 2023@14:53:36 AUTHOR: KENROY ADAME EXP COSIGNER: URGENCY: STATUS: COMPLETED AMSA/RN please call to schedule for a 60 min new patient appointment within 20 days, virtual or face to face to meet new pt scheduling guidelines. Appointment needs to be scheduled on or before Nov PATIENT PHONE - No data available F/U RTC should go to SO/PACT 7 /michell/ KENROY ADAME TOOL SPECIALIST SUPERVISOR SCREEN PRINTING Signed: 11/26/2023 14:54 Receipt Acknowledged By: 11/27/2023 09:28 /michell/ BRYAN MILIAN === --- Original Document --- 11/25/23 CCC: SCHEDULING ADMINISTRATION: Patient Demographics Patient Name: JENIFER ANAYA Patient Primary Phone: [phone] Patient Primary [address] [address] [place], [place] [address] [address] Patient : 1935 Patient Age: 88 Call Back Number: [phone] Caller/Recipient Relation to Patient: Self Administrative Administrative Note Reason: Other Administrative Note Comments: pt is calling and asking to be assigned a pcp and pt is wanting to be seen in [facility]. pt stated he is not having any symptoms at this time. please advise at [phone] /es/ OTILIA SALES [address] [facility] AMSA Signed: 11/25/2023 10:16 Receipt Acknowledged By: 11/25/2023 11:49 /michell/ YAMILETH MANRIQUE MSA TOOL SPECIALIST, [facility] 11/26/2023 14:53 /es/ KENROY ADAME TOOL SPECIALIST SUPERVISOR SCREEN PRINTING KENROY ADAME [facility] Nov 25, 2023 10:16 AM ADMINISTRATIVE NOT E: LOCAL TITLE: CCC: SCHEDULING ADMINISTRATION STANDARD TITLE: ADMINISTRATIVE NOTE DATE OF NOTE: NOV 25, 2023@10:16:33 ENTRY DATE: NOV 25, 2023@10:16:34 AUTHOR: OTILIA LORENZO COSIGNER: URGENCY: STATUS: COMPLETED CCC: SCHEDULING ADMINISTRATION Has ADDENDA Patient Demographics Patient Name: JENIFER ANAYA Patient Primary Phone: [phone] Patient Primary [address] [address] [place], [place] [address] [address] Patient : 1935 Patient Age: 88 Call Back Number: [phone] Caller/Recipient Relation to Patient: Self Administrative Administrative Note Reason: Other Administrative Note Comments: pt is calling and asking to be assigned a pcp and pt is wanting to be seen in [facility]. pt stated he is not having any symptoms at this time. please advise at [phone] /es/ OTILIA SALES [address] [facility] AMSA Signed: 11/25/2023 10:16 Receipt Acknowledged By: 11/25/2023 11:49 /michell/ YAMILETH MANRIQUE MSA TOOL SPECIALIST, [facility] 11/26/2023 14:53 /es/ KENROY ADAME TOOL SPECIALIST SUPERVISOR SCREEN PRINTING 11/26/2023 ADDENDUM STATUS: COMPLETED AMSA/RN please call to schedule for a 60 min new patient appointment within 20 days, virtual or face to face to meet new pt scheduling guidelines. Appointment needs to be scheduled on or before Nov PATIENT PHONE - No data available F/U RTC should go to SO/PACT 7 /es/ KENROY ADAME TOOL SPECIALIST SUPERVISOR SCREEN PRINTING Signed: 11/26/2023 14:54 Receipt Acknowledged By: * AWAITING SIGNATURE * BRYAN HOFFMAN [place] [facility]
--- OUTSIDE RECORDS SUMMARY | 2024-04-08 09:59 | XMS_ITS | Encounter Summary ---
Author Name [facility] Organization [facility] [place] [facility] [place] Address [address] [place] [address] Care Team Providers Care Mass Communications Instructor Name Role Phone ARDEN TRENT Primary Care [...] PART A Apr 22, 2001 PART A [id number] JENIFER ANAYA PATIENT MEDICARE (WNR) MEDICARE (M) PART B Apr 22, 2001 PART B [id number] JENIFER ANAYA PATIENT [employer] PLAN F May 11, 2008 PLANF [id number] JENIFER ANAYA PATIENT Selected Encounter This section includes the information on record at [place] for the Encounter. Date/Time Encounter Type Encounter [...] 20 appointments. The data comes from all [place] treatment facilities. Appointment Date/Time Appointment Type Appointme nt Facility Name Jan 16, 2024 01:00 PM [facility] Feb 04, 2024 08:00 AM [facility] Mar 10, 2024 10:30 AM [facility] - [facility] Encounter Notes: All associated encounter notes This section contains the clinical notes associated to the Encounter. Date/Time Encounter Note(s) Provider Source Nov 16, 2023 12:00 AM NONVA NOTE: LOCAL TITLE: NON-VA MEDICAL RECORD SUMMARY STANDARD TITLE: NONVA NOTE DATE OF NOTE: NOV 16, 2023 ENTRY DATE: JAN 16, 2024@15:48:18 AUTHOR: JAYLEEN WOODY EXP COSIGNER: URGENCY: STATUS: COMPLETED VistA Imaging - Scanned Document SCANNED DOCUMENT SIGNATURE NOT REQUIRED Electronically Filed: 01/16/2024 by: JAYLEEN [facility]
[2024-04-08 12:14] LABS: Appearance Urine Turbid; Glucose Urine UA >=1000 mg/dL (Negative); Leukocyte Esterase Urine Moderate (2+) (Negative); Nitrite Urine Positive (Negative); PH 5.5 (5.0-9.0); Specific Gravity - Urine 1.025 (1.005-1.025); UMIC TRIGGER UA YES; Urine Blood Large (3+) (Negative); Urine Ketones Negative (Negative); Urine Protein 300 (3+) mg/dL (Neg-Trace)
[2024-04-08 12:20] LABS: Bacteria Urine 4+ (None Seen); Hyaline Casts Urine 0-2 /LPF (0-2); RBC Urine >20 /HPF (0-2); Squamous Epithelial Cell Urine 0-2 /HPF (0-2); WBC Urine >50 /HPF (0-5)
[2024-04-08 12:23] LABS: Color Urine Brown
== END 2024-04-08 09:52 | disposition home or self-care (01) ==
LOC: HO.HVNA 09:51
PROVIDERS: Visit Provider Urology
DX: N39.0 Urinary tract infection, site not specified (principal); R33.9 Retention of urine, unspecified; R31.9 Hematuria, unspecified
CPT/HCPCS: 81001; 87086

== ENCOUNTER 2024-04-19 17:18 | Inpatient (IN) | payer MEDICARE, OTHER, SELFPAY ==
--- NOTE | ~2024-04-19 | CT_ITS ---
CLINICAL HISTORY: pain, hemtauria infection CT abdomen and pelvis without contrast Comparison: 01/18/2020 Findings: Calcified pleural plaque bilateral lung bases. New small right pleural effusion noted. Subsegmental right lower lobe atelectasis. Stable lung base scarring. Degenerative change spine and hips. No acute bony abnormalities. Small hiatal hernia. Liver and spleen within normal limits. Pancreas and adrenal glands unremarkable. Cholelithiasis with moderate gallbladder distention. No bilateral ureteral stone or hydronephrosis. Small bilateral renal cysts noted. Large left upper pole cyst noted. No evidence for aortic aneurysm. No free fluid or adenopathy is noted in the pelvis. No evidence for diverticulitis. Appendix unremarkable. Suprapubic Kellogg catheter in the bladder. Impression: New small right pleural effusion with lower lobe atelectasis No acute processes in the abdomen or pelvis This document has been electronically signed by: Frank Pina MD on 04/20/2024 03:52:42
--- OUTSIDE RECORDS SUMMARY | 2024-04-19 17:20 | XMS_ITS | Encounter Summary ---
Author Name [facility] [facility] [place] Organization [facility] [place] [facility] [place] Address [address] [place] [address] Care Team Providers Care Human Resources Temp Name Role Phone ARDEN TRENT Primary Care [...] PART A Apr 22, 2001 PART A [id number] JENIFER MENA PATIENT MEDICARE (WNR) MEDICARE (M) PART B Apr 22, 2001 PART B [id number] JENIFER MENA PATIENT [facility] [employer] MEDIGAP PLAN F May 11, 2008 PLANF [id number] JENIFER MENA PATIENT Selected Encounter This section includes the information on record at [place] for the Encounter. Date/Time Encounter Type Encounter Description Reason Provider Source Mar 30, 2024 09:59 PM SELF CARE MNGMENT TRAINING [facility] Nursing (RN / LP) ICD-10-CM R54 Age-related physical debility LISA VIVAS Encounter Template Text not used by [place] Assessments - Encounter Diagnoses This section includes the primary and secondary diagnoses documented for the Encounter. Date/Time Primary/Secondary Diagnosis Diagnosis Name Provider Source Apr 02, 2024 10:09 PM PRIMARY Age-related physical debility MARIXA VIVASIMIE [place] [facility] [place] [facility] Apr 02, 2024 10:09 PM SECONDARY Athscl heart disease of [place] coronary artery w/o ang [facility] [place] [facility] Apr 02, 2024 10:09 PM SECONDARY Essential (primary) hypertension [facility] [place] [facility] Apr 02, 2024 10:09 PM SECONDARY Heart failure, unspecified [facility] [place] [facility] Apr 02, 2024 10:09 PM SECONDARY Other specified counseling [facility] [place] [facility] Apr 02, 2024 10:09 PM SECONDARY Type 2 diabetes mellitus without complications [facility] [place] [facility] Apr 02, 2024 10:09 PM SECONDARY Unspecified atrial fibrillation [facility] [place] [facility] Plan of Treatment: Future Appointments (+ 6 months) and Future Tests (+/- 45 days) The Plan of Treatment section includes future care activities for the patient from all [place] treatmentfacilities. This section includes future appointments and [...] of theEncounter. The data comes from all [place] treatment facilities. 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 Date/Time Temperature Pulse Blood Pressure Respiratory Rate SP02 Pain Height Weight Body Mass Index Source Mar 30, 2024 09:50 PM 97.8 75 128/84 18 97 2 160 [facility] Encounter Notes: All associated encounter notes This section contains the clinical notes associated to the Encounter. Date/Time Encounter Note(s) Provider Source Mar 30, 2024 09:59 PM [facility] ADMISSION TOBY FARLEY NOTE: LOCAL TITLE: [facility] STOCKHOLDER NOTE STANDARD TITLE: [facility] ADMISSION EVALUATION NOTE DATE OF NOTE: MAR 30, 2024@21:59 ENTRY DATE: APR 02, 2024@22:00:07 AUTHOR: LISA VIVAS COSIGNER: URGENCY: STATUS: COMPLETED WHAT MATTERS What Matters was addressed at this visit. Comment: getting this tube out (RE: recently placed suprapubic catheter) MEDICATION Medications were addressed at this visit. MENTATION Depression was addressed at this visit. Comment: defer full assess to SW MENTATION Dementia was addressed at this visit. Comment: defer full assess to SW MENTATION Delirium was addressed at this visit. Comment: denies, defer full assess to SW MOBILITY -------- Mobility was addressed at this visit. 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 The Lawrence/caregiver was informed that we will continue to ask this screening question every 5 years. They can contact their provider/healthcare team if they have concerns about exposures and would like to be screened sooner. Printed information was offered and provided if desired. MST Screening: Patient denies experiencing sexual trauma (MST). Influenza Immunization: The patient has received the seasonal influenza vaccine for the current season at another location. Documented: INFLUENZA, UNSPECIFIED FORMULATION Historical Date Administered: Mar 11, 2024 Information Source: FROM PATIENT'S RECALL COVID-19 Immunization: Patient received a prior dose of the Pfizer Monovalent vaccine. Documented: COVID-19 (PFIZER), MRNA, LNP-S, PF, EMELINA-SUCROSE, 30 MCG/0.3 ML (AGES 12+ YEARS) Historical Date Administered: Mar 11, 2024 Information Source: FROM PATIENT'S RECALL RHS Screen: RHS Screen Environmental Check Upon inquiry, the individual reports that the environment is safe to proceed. Informed Consent to Screen and Document The individual consents to proceed with screening. The individual consents to documentation of responses. PRIMARY SCREEN: In the past 12 months, how often did a current or former intimate partner (e.g., boyfriend, girlfriend, , , sexual partner): 1. Scream or curse at you Never 2. Insult or talk down to you Never 3. Threaten you with harm Never 4. Physically hurt you Never 5. Force or pressure you to have sexual contact against your will, or when you were unable to say no Never ?? The HITS tool (items 1-4 above) is US copyright protected by Randall Vaughan MD, and the user has full rights to use it throughout the [place] system. PRIMARY SCREEN RESULT: The Primary Screen is NEGATIVE. The individual answered never to all forms of IPV above (i.e., answered never to all 5 items) The individual accepts education and/or resources: Other: n/a EDUCATION: Other: n/a REASON FOR ASSESSMENT: Initial assessment A new Patient handbook was given and reviewed with Patient and/or caregiver. 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 Length of time alone during the day: long periods of time EMERGENCY/DISASTER PLAN Emergency/Disaster Plan Form completed with /Caregiver and placed on Veterans refrigerator: Yes MEDICATIONS: Active Outpatient Medications (including Supplies): APIXABAN 5MG TAB TAKE ONE TABLET BY MOUTH EVERY 12 HOURS ACTIVE FOR Indication: ATRIAL FIBRILLATION DEPEND UNDERWEAR,MAXIMUM,MEN LARGE USE 1 BRIEF DIRECTED ACTIVE TWICE DAILY NEEDED Non-VA ACETAMINOPHEN 500MG TAB 1000MG BY MOUTH TWICE DAILY ACTIVE NEEDED Indication: FOR PAIN Non-VA AMIODARONE HCL 200MG TAB 200MG BY MOUTH ONCE DAILY ACTIVE Indication: FOR VENTRICULAR FIBRILLATION Non-VA ATORVASTATIN CALCIUM 80MG TAB 40MG BY MOUTH ONCE ACTIVE DAILY Non-VA FINASTERIDE 5MG TAB 5MG BY MOUTH ONCE DAILY ACTIVE Non-VA FUROSEMIDE 20MG TAB 20MG BY MOUTH ONCE DAILY ACTIVE Non-VA METFORMIN HCL 1000MG TAB 1000MG BY MOUTH TWICE ACTIVE DAILY Non-VA SPIRONOLACTONE 25MG TAB 25MG BY MOUTH ONCE DAILY ACTIVE Non-VA TAMSULOSIN HCL 0.4MG CAP 0.4MG BY MOUTH ONCE DAILY ACTIVE 10 Total Medications Referred to [facility] pharmacy for medication review MEDICATION REVIEW: Medication review completed during home visit. The was given the opportunity to discuss and ask questions about all prescription medications as well as dietary and herbal supplements, vitamins, OTC medications, etc. Currently, the is taking his/her medications as per the active orders in the electronic record. Patient has a current, accurate, printed list of medications. who assists patient with medications: med prefill done by other other:VNA patient was given a dated list of all medications including name, dose, dosing schedule, any changes, the Lawrence's name and a VA contact name and phone number for questions. This list includes prescription, OTC, herbal, topical, and systemic medications from VA and non-VA sources. Most recent Allergies: Patient has answered NKA Comments: VITAL SIGNS: Most recent vitals: 97.8 F [36.6 C] (03/30/2024 21:50) 75 (03/30/2024 21:50) 18 (03/30/2024 21:50) 128/84 (03/30/2024 21:50) 2 (03/30/2024 21:50) Men's Health (Male Specific Issues): suprapubic cath (?BPH), urinary incont ------- PAIN ASSESSMENT: Pain Intensity: Scale 1-10 2/10. Pain History mid abd at SPT site Description:burning, pulling What exacerbate this pain:movement Current treatment-medication and non-pharmaceutical:APAP Effectiveness of current treatment:fair Plan/Education (necessary if pain is greater than 3):anchor SPT to prevent pulling Pain management education included a general understanding about pain, the risks for pain, the importance of effective pain management, and the pain assessment process. Done via discussions, printed materials that included the pain education booklet, healthy living pamphlet, CCTV, as needed. MENTAL HEALTH: Mental Status: alert oriented x 3 no behavioral issues Short term memory: short term memory intact exterminator helper memory: exterminator helper memory intact How well client makes decisions about organizing the day: modified independence - some difficulty in new situations only. NEUROLOGICAL: Assessment: No problems EENT: Vision: No problems Hearing: no impairment Swallowing: normal Dental assessment: Teeth: has own teeth in good condition CARDIOVASCULAR: assessment: decreased endurance hx atrial tach, CHF, AFIB Pulses: apical: regular pedal: regular RESPIRATORY: assessment: dyspnea with exertion lungs: clear: bilaterally GASTROINTESTINAL: Assessment: No problems Abdomen bowel sounds: present suprapubic catheter to RLQ last BM:03/30/24 consistency:soft Diabetic non insulin dependent blood glucose range:160-170 recent HgbA1C- requested from community PCP NUTRITION SCREEN [facility] Nutrition Screen 1. Does the patient have Food Allergies? No If Yes, then detail the food allergies: 2. Does the patient report unintentional weight loss OR gain of at least 10 pounds in the last three months? No If Yes, then specify: 3. Does the patient report a decrease in food intake and/or appetite? No 4. Are there dental problems that impact ability to consume food? No 5. Does the patient have a swallowing problem? No 6. Does the patient report eating habits or behaviors that may be indicators of an eating disorder (e.g. binging or induced vomiting)? No 7. Persistent nausea, vomiting, or diarrhea? No 8. Is the patient on tube-feeding? No 9. Diabetes? Yes 10.Pressure Sore? No Comments: RD consult placed An [facility] or Home Care Nutrition Consult should be initiated if there is a Yes answer to any of the above listed questions. SKIN ASSESSMENT: Color: Normal Comment: Temperature: Warm, Dry Turgor: Good Skin Condition: Intact, Pressure/Ulcer Sensory Perception 4. No Impairment Moisture 3. Occasionally Moist Activity 3. Occasionally Walks Mobility 3. Slightly Limited Nutrition 2. Probably Inadequate Friction & Shear 2. Potential Problem INTEGUMENTARY: Pawan Scale: 15-18 Mild Risk Score:17 Intervention/Plan: ( Severe/Moderate Risk= Refer to Nutrition and OT if applicable and PCP) GENITOURINARY: Incontinent: Type of incontinence:reports 'dribbling' of urine from penis Treatment for incontinence:depends Catheters/appliances:suprapu bic tube Problems:SPT insertion site painful and will 'bleed' at times when irritated. Insertion site free from s/s infection, pink hypergranulation tissue noted at insertion site MUSCULOSKELETAL: Assessment: Mobility: unsteady gait difficulty with stairs uses walker Falls: [facility] 10 Fall Risk Assessment Tool Required Core Elements Assess one point for each core element yes. Information may be gathered from medical record, assessment and if applicable, the patient caregiver. Beyond protocols listed below, scoring should be based on your clinical judgment. 1-Age 65+ 1-Diagnosis (3 or more co-existing) Includes only documented medical diagnosis 0-Prior history of falls within 3 months An unintentional change in position resulting in coming to rest on the ground or at a lower level. 1-Incontinence Inability to make it to the bathroom or commode in a timely manner. Includes frequency, urgency, and/or nocturia 0-Visual impairment Includes but not limited to, macular degeneration, diabetic retinopathy, visual field loss, age related changes, decline in visual acuity, accommodation, glare tolerance, depth perception, and night vision or not wearing prescribed glasses or having the correct prescription 1-Impaired functional mobility May include patients who need help with IADLs or ADLs or have gait or transfer problems, arthritis, pain, fear of falling, foot problems, impaired sensation, impaired coordination or improper use of assistive devices. 1-Environmental hazards May include but not limited to, poor illumination, equipment tubing, inappropriate footwear, pets, hard to reach items, floor surfaces that are uneven or cluttered, or outdoor entry and exits. 1-[facility] (4 or more prescriptions - any type) All PRESCRIPTIONS including prescriptions for OTC meds. Drugs highly associated with fall risk include but not limited to, sedatives, anti-depressants, tranquilizers, narcotics, antihypertensive, cardiac meds, corticosteroids, anti- anxiety drugs, anticholinergic drugs, and hypoglycemic drugs. 1-Pain affecting level of function Pain often affects an individual's desire or ability to move or pain can be a factor in depression or compliance with safety recommendations. 0-Cognitive Impairment Could include patients with dementia, Alzheimer's or stroke patients or patients who are confused, use poor judgment, have decreased comprehension, impulsivity, memory deficits. Consider patients ability to adhere to the plan of care. Total: 7 A score of 4 or more is considered at risk for falling. Created by: [facility] Adaptive Equipment Assessment: Adaptive Equipment used in the home:stairglide, rollator, shower chair Referral to PT/OT for evaluation ADL STATUS dependent (needs help with bathing more than one part of the body, getting in or out of the tub/shower, or requires total bathing) Dressing dependent (needs help dressing self or needs to be completely dressed by others) Toileting independent (goes to toilet, gets on and off, arranges clothes, cleans genital areas without help.) Transferring independent (moves in and out of bed or chair unassisted, mechanical transferring aides are acceptable) Continence dependent (is partially or totally incontinent of bowel or bladder) Feeding independent (gets food from the plate into mouth without help, preparation of food may be done by another) IADL Status Ability to Use Telephone operates a telephone via own initiative, looks up and dials numbers Shopping completely unable to shop Food Preparation heats and serves prepared meals or prepares meals but does not maintain adequate diet Housekeeping does not participate in any housekeeping tasks Laundry all laundry must be done by others Transportation travels only when accompanied by others Responsibility for Medications takes responsibility if medication is prepared in advance in separate dosages Ability to Handle Finances manages day to day purchases, but needs help with banking, major purchases, etc. HEALTH MAINTENANCE: OVERALL PROGNOSIS: Best description of patient's overall prognosis for recovery from this episode of illness. fair: maintenance of current condition is expected. 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 is A&Ox3, able to provide medical history independently with occasional difficult w/ recall of details. PMH includes recently placed suprapubic catheter related to ?BPH (Urology records requested) in October 2023, reports this is what causes him the most distress and discomfort and would like to have the tube removed; Urology f/u w/ Dr Lea 05/01/24. PMH also includes recent hospital admission for atrial tachycardia, acute on chronic CHF exacerbation and AFIB. is NIDDM as well. Currently is receiving [place] [facility] services every 2 weeks for care of SPT w/ changes monthly, medication prefills and general assess. 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 Medications filled through [facility] in [place] although would like to transition meds to [place] as appropriate. Medical records from recent admission to [facility] in [place]; Dr Cuello, cardiology and Dr Lea, urology requested and received- waiting on records from PCP Dr Wilson to verify immunizations. Denies any recent falls. Appetite good, FBS ranges from 160-170; no s/s glycemic reaction, no A1C available. RD consult placed. Ambulates w/ walker, steady gait although is very concerned about pulling on SPT that he gets up as infrequently as possible. OT consult placed, has HEP from recently d/cd home PT. Skin intact w/out any s/s breakdown. SPT is clamped off and will unclamp and drain into the toilet approx q 2 hrs, clear yellow urine. He prefers this method to having catheter bag attached. Recently finished course of abx for UTI as reported by . SPT insertion site is painful and will 'bleed' at times when irritated. 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 Plan for fpc [facility] assistance due to advanced age, homebound status and multiple chronic medical issues. /michell/ LISA VIVAS RN, BSN [facility] DIRECTOR ECONOMIC Signed: 04/03/2024 15:50 LISA VIVAS [facility]
--- OUTSIDE RECORDS SUMMARY | 2024-04-19 17:21 | XMS_ITS | Encounter Summary ---
Author Name [facility] [place] Organization [place] Address [address] [place] [id number] Care Team Providers Care It Solutions Architect Name Role Phone ARDEN TRENT Primary Care [...] PART A Apr 22, 2001 PART A [id number] JENIFER ANAYA PATIENT MEDICARE (WNR) MEDICARE (M) PART B Apr 22, 2001 PART B [id number] JENIFER ANAYA PATIENT [employer] MEDIGAP PLAN F May 11, 2008 PLANF [id number] JENIFER ANAYA PATIENT Selected Encounter This section includes the information on record at [place] for the Encounter. Date/Time Encounter Type Encounter Description Reason Pro vider Source Jan 28, 2024 12:00 AM Outpatient Encounter EVENT (HISTORICAL) [...] 20 appointments. The data comes from all [facility] facilities. Appointment Date/Time Appointment Type Appointme nt Facility Name Feb 04, 2024 08:00 AM [facility] Mar 10, 2024 10:30 AM [facility] Active, Pending, and Scheduled Orders This section includes a listing of several types of active, pending, and scheduled orders, including clinic medications orders, diagnostic test orders, procedure orders and consult orders; where the start date of the order is 45 days before the date of the Encounter or 45 days after the date of theEncounter. The data comes from all [facility]. Test Date/Time Test Type Test Details Facility Name Jan 31, 2024 01:42 PM Consult Order [facility] NON-SKILLED HOME HEALTH AIDE Cons Embedded Software Manager's Choice [place] Feb 05, 2024 12:00 AM Laboratory - Chemi stry Order CREATININE (eGFR 2020) BLOOD (SST-SERUM) [facility] Feb 05, 2024 12:00 AM Laboratory - Chemi stry Order LIVER FUNCTION BLOOD (SST-SERUM) [facility] Feb 05, 2024 12:00 AM Laboratory - Chemi stry Order CBC BLOOD (LAV-BLOOD) [facility] Feb 05, 2024 12:00 AM Laboratory - Chemi stry Order PT & INR (COUMADIN) BLOOD (BLUE-PLASMA) [facility] Encounter Notes: All associated encounter notes This section contains the clinical notes associated to the Encounter. Date/Time Encounter Note(s) Provider Source Jan 28, 2024 12:00 AM NURSING ADMINISTRA TIVE NOTE: LOCAL TITLE: NON-VA PRESCRIPTION STANDARD TITLE: NURSING ADMINISTRATIVE NOTE DATE OF NOTE: JAN 28, 2024 ENTRY DATE: FEB 27, 2024@11:43:58 AUTHOR: CATHERINE AMBROCIO EXP COSIGNER: URGENCY: STATUS: COMPLETED VistA Imaging - Scanned Document SCANNED DOCUMENT SIGNATURE NOT REQUIRED Electronically Filed: 02/27/2024 by: CATHERINE [facility]
[2024-04-19 17:22] VITALS: BP 117/59; PULSE 96; RESP 16; TEMP 36.1; O2SAT 97; BMI 21.7
--- OUTSIDE RECORDS SUMMARY | 2024-04-19 17:22 | XMS_ITS | Encounter Summary ---
Author Name [facility] Organization [facility] [place] Address [address] [place] [id number] Care Team Providers Care Culinary Arts Instructor Name Role Phone ARDEN TRENT Primary [...] PART A Apr 22, 2001 PART A [id number] JENIFER MENA PATIENT MEDICARE (WNR) MEDICARE (M) PART B Apr 22, 2001 PART B [id number] JENIFER MENA PATIENT [employer] PLAN F May 11, 2008 PLANF [id number] JENIFER MENA PATIENT Selected Encounter This section includes the information on record at [place] for the Encounter. Date/Time Encounter Type Encounter Description Reason Provider Source Apr 17, 2024 03:17 PM CASE MANAGEMENT [facility] - [facility] ICD-10-CM Z65.9 Problem related to unspecified psychosocial circumstances Eliza HERBERT IHGumaro Encounter Template Text not used by [place] Assessments - Encounter Diagnoses This section includes the primary and secondary diagnoses documented for the Encounter. Date/Time Primary/Secondary Diagnosis Diagnosis Name Provider Source Apr 17, 2024 03:55 PM PRIMARY Problem related to unspecified psychosocial circumstances Eliza HERBERTA [facility] Plan of Treatment: Future Appointments (+ 6 months) and Future Tests (+/- 45 days) The Plan of Treatment section includes future care activities for the patient from all [place] treatmentfacilities. This section includes future appointments and [...] data comes from all [place] treatment facilities. Test Date/Time Test Type Test Details Facility Name Apr 03, 2024 02:43 PM Consult Order [facility] NUTRI TION SPOPC OUTPT Cons Veterinary Poultry Inspector[facility] Encounter Notes: All associated encounter notes This section contains the clinical notes associated to the Encounter. Date/Time Encounter Note(s) Provider Source Apr 17, 2024 01:30 PM [facility] NOTE: LOCAL TITLE: HB SOCIAL WORK ASSESSMENT STANDARD TITLE: [facility] NOTE DATE OF NOTE: APR 17, 2024@13:30 ENTRY DATE: APR 17, 2024@15:17:23 AUTHOR: SHELLEY HERBERT COSIGNER: URGENCY: STATUS: COMPLETED WHAT MATTERS What Matters was addressed at this visit. Comment: To be able to walk again without walker. MENTATION Depression was addressed at this visit. Comment: Negative PHQ-2 MENTATION Dementia was addressed at this visit. Comment: [facility] Exam score of 4 falling WNL MENTATION Delirium was addressed at this visit. Comment: No s/s of delirium observed. SOCIAL WORK ASSESSMENT was seen for: [X] Initial Review [ ] Annual Review Admission Date: 03/30/24 identified by: [X] Full Name [X] Address [ ] [ ] SSN [ ] Facial Recognition Patient Demographics: [place]: [place] [address] County: [place] Marital Status: Age: 88 Gnosticism: UNKNOWN/NO PREFERENCE Sex: MALE Occupation: Period of Service: [employer] Branch of Service: [employer] Combat: NO POW: NO Eligibility: NSC Status: VERIFIED Means Test: NO LONGER REQUIRED NOK: CHRISTINA MURRAY Relation: SON Kunal [place], [place] Service Connected Disabilities with % Eligibility: NSC VERIFIED Other persons present: Length of visit: 60 minutes CURRENT LIVING ARRANGEMENTS [X] Own Home [ ] Apartment/rented house [ ] [facility] Home [ ] Fpc [ ] Assisted Living [ ] Home of Significant Other [ ] Home of other family members [ ] Home of friends [ ] Other: Patient lives with: [ ] Alone [ ] With Spouse [X] With Adult Child [ ] With Significant Other [ ] With a Friend [X] Other: And grandson Home environment: [ ] Cluttered [X] Clean/tidy [ ] Lacks appropriate heating/plumbing/cooking/fo od storage [ ] Unsanitary [ ] Strong Odor [ ] Fall risks [ ] Steps to enter/or inside home [ ] Other: PATIENT'S PRESENTATION/MENTAL STATUS ASSESSMENT: 1. ORIENTATION: Oriented to: [X] Person [X] Place [X] Time [X] Situation [X] Alert [ ] Lethargic [ ] Confused [ ] Memory Deficits [ ] Other: 2. BEHAVIORS: [X] Socially appropriate [ ] Aggressive [ ] Yelling [ ] Withdrawn [ ] Delusional [ ] Threatening [ ] Wandering [ ]Other: 3. AFFECT: [X] Full range affect [ ] Euphoric [ ] Flat [ ] Calm [ ] Tense [ ] Anxious [ ] Labile [ ] Hostile [ ] Angry [X] Congruent with mood [ ] Incongruent with mood 4. MOOD: [ ] Good [X] Fair [ ] Irritable [ ] Tearful/crying [ ] Hopeless [ ] Guilty 5. HYGIENE: [X] Good [ ] Well-groomed [ ] Unkempt [ ] Body odor 6. DRESSED: [X]Casually [ ] Professional casual [ ] Neat [ ] Disheveled 7. EYE CONTACT is: [X] Good [ ] Fair [ ] Intermittent [ ] Direct [ ]Avoidant SUPPORT SYSTEMS Informal supports: has 5 adult children that he considers his own but were from his . One of his sons and his grandson live with him. Grandson is filling his SHOP [employer]TER hours paid by [place] and there most of the time to assist him with ADLs and IADLs. He has 2 daughter in [facility], a son in [place], and a son in [facility]. Formal supports: [X]Homemaker/Home Health Aide [ ]Inpatient/in-home respite [ ]Adult Day Health Care [ ]VNA/Skilled Home Health Care [ ]Elder Services [X]Meals on Wheels [ ]Transportation [X]Personal Emergency Response System [ ]Home Oxygen [ ]Other: OXYGEN SAFETY [X]N/A [ ]No unsafe behavior observed [ ]Unsafe behavior observed ([facility] Home Oxygen Safety Checklist must be completed if unsafe behavior observed) SUBSTANCE USE Alcohol use: Occasional beer Nicotine use: None Other: Is [place] interested in substance abuse/smoking cessation treatment? [ ]Yes [X]No PSYCHIATRIC HISTORY: No reported history of mental health issues or treatment. CRIMINAL HISTORY: Do you have a legal history(arrests,incarcerati ons,probation,parole,divorc e,child custody issues)? No I/ADL FUNCTIONAL ASSESSMENT Holland Index of Tensas in Activities of Daily Living: Bathing: [ ] Independent (1) * Bathes self completely or needs help in bathing only a single part of the body such as the back, genital area or disabled extremity. [X] Dependent (0) * Needs help with bathing more than one part of the body, getting in or out of the tub or shower. Requires total bathing. Dressing: [ ] Independent (1) * Gets clothes from closets and drawers and puts on clothes and outer garments complete with fasteners. May have help tying shoes. [X] Dependent (0) * Needs help with dressing self or needs to be completely dressed. Toileting: [X] Independent (1) * Goes to toilet, gets on and off, arranges clothes, cleans genital area without help. [ ] Dependent (0) * Needs help transferring to the toilet, cleaning self or uses bedpan or commode. Transferring: [X] Independent (1) * Independent (1) - Moves in and out of bed or chair unassisted. Mechanical transferring aides are acceptable. [ ] Dependent (0) * Needs help in moving from bed to chair or requires a complete transfer. Continence: [ ] Independent (1) * Exercises complete self-control over urination and defecation. [X] Dependent (0) * Is partially or totally incontinent of bowel or bladder. Feeding: [X] Independent (1) * Gets food from plate into mouth without help. Preparation of food may be done by another person. [ ] Dependent (0) * Needs partial or total help with feeding or requires parenteral feeding. Total Points = 3 - Score Explanation: 6 = High (patient independent), 0 = Low (patient very dependent) FABY-PAUL INSTRUMENTAL ACTIVITIES OF DAILY LIVING: Telephone use: [X](1) Operates a telephone via own initiative; looks up and dials numbers, etc. [ ](1) Dials a few well known numbers [ ](1) Answers phone but does not dial [ ](0) Does not use telephone at all Shopping: [ ](1) Takes care of all shopping needs independently [ ](0) Shops independently for small purchases [ ](0) Needs to be accompanied on any shopping trip [X](0) Completely unable to shop Meal Preparation: [ ](1) Plans, prepares, and serves adequate meals independently [ ](0) Prepares adequate meals if supplied with ingredients [X](0) Heats, serves, and prepares meals but does not maintain adequate diet [ ](0) Needs to have all meals prepared and served Housekeeping: [ ](1) Maintains house alone or with occasional assistance [ ](1) Performs light daily tasks such as dishwashing, bed making [ ](1) Performs light daily tasks but cannot maintain acceptable level of cleanliness. [ ](1) Needs help with all home maintenance tasks [X](0) Does not participate in any housekeeping tasks Laundry: [ ](1) Does personal laundry completely [ ](1) Launders small items; rinses stockings, etc. [X](0) All laundry must be done by others Transportation: [ ](1) Travels independently on public transportation or drives own car [ ](1) Arranges own travel via taxi, but not otherwise use public transportation program [X](1) Travels only when accompanied by others [ ](0) Does not travel at all Medication mgmt: [ ](1) Is responsible for taking correct medication in correct dose, at correct time [X](0) Takes responsibility if medication is prepared in advance in separate dosages [ ](0) Is not capable of dispensing medications Financial mgmt: [ ](1) Manages financial matters independently (budgets, writes own checks, pays rent) [X](1) Manages day to day purchases but needs help with banking, major purchases, etc [ ](0) Incapable of handling money Do you have VA contracted Home Health Aide Services?Yes,(explain) Agency Providing SHOP FITTER Services Guardian Alert 13 hours/week Are you satisfied with your personal care provided by the agency? YES Do you feel safe with the personal care services provided by the agency? YES FINANCIAL STATUS Income sources: [ ] VA pension [ ] [facility] [ ] [place] [ ] [place] [ ] Aid & Attendance [ ] [address] [X] SS [facility] [ ] SS Disability [X] Private pension [ ] SSI [ ] Other: Income amount: $43,794/year Financial hardship reported: [ ] Yes [X] No Who Manages Finances: Son Copay status: Outpatient Visits:[X] Exempt [ ] Non-Exempt Medications: [X] Exempt [ ] Non-Exempt Insurance: [ ] Medicare A only [X] Medicare A and B [ ] Medicare HMO: [ ] Medicaid: [X] Supplemental insurance to Medicare: [facility] [ ] Other Private insurance: ADVANCE DIRECTIVE: Does the [place] have: VA Advance directives on file? [ ] Yes [X] No State Authorized Health Care Proxy Document on file? [ ] Yes [X] No If yes, was document reviewed with ? [ ] Yes [ ] No [ ] Current [ ] Needs to be updated HCP: If no , were advanced directives discussed with [place]? [X] Yes [ ] No Legal guardian? [ ] Yes [X] No Power of Cryogenics Repairer? [ ] Yes [X] No Conservator/Fiduciary? [ ] Yes [X] No Is there evidence of abuse or neglect? 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 [ ] Yes [X] No If yes, describe: COGNITIVE ASSESSMENT Is Vet a poor historian ? [ ] Yes [X] No Defers to a caregiver/family member? [ ] Yes [X] No Expresses concern over memory? [ ] Yes [X] No Concerns identified: Presence of difficult behaviors? [ ] Yes [X] No If yes, please describe: Does Vet have a diagnosis of cognitive impairment? [ ] Yes [X] No Dx: Hx of neuropsych testing? If yes, dates/location: Cognitive Screening: [X] Is Indicated [ ] Is Not Indicated [ ] Unable To Complete [ ] Declined by Vet Further cognitive evaluation requested by [facility]: [ ] Yes [X] No The Blessed Orientation Memory Concentration (BOMC) Test: SCORE 0 1.) What year is it now? 0 2.) What month is it now? 0 3.) About what time is it? 0 4.) Count backwards 20 to 1. 0 5.) Say the months in reverse order (start with March) 4 6.) Repeat the memory phrase. (1)Moshe (1)Jenaro (1)42 X (1)[facility] X (1)Strandquist Score & Interpretation: 4 -- WNL CAREGIVER STATUS: Does the have a caregiver who provides substantive assistance on an ongoing basis for the in the 's place of residence? (not including paid professional caregivers) YES = Zarit-Anita Interview: Caregiver Name: Christina Murray -- Grandson had left the house. Frederic-Anita left for him to complete and give to the next [facility] staff who comes. 1. Do you feel that because of the time you spend with your relative, you don't have enough time for yourself? [ ] 0 = Never [ ] 1 = Rarely [ ] 2 = Sometimes [ ] 3 = Quite frequently [ ] 4 = Nearly always 2. Do you feel stressed between caring for your relative and trying to meet other responsibilities such as work or family? [ ] 0 = Never [ ] 1 = Rarely [ ] 2 = Sometimes [ ] 3 = Quite frequently [ ] 4 = Nearly always 3. Do you feel strained when you are around your relative? [ ] 0 = Never [ ] 1 = Rarely [ ] 2 = Sometimes [ ] 3 = Quite frequently [ ] 4 = Nearly always 4. Do you feel unsure about what to do about your relative? [ ] 0 = Never [ ] 1 = Rarely [ ] 2 = Sometimes [ ] 3 = Quite frequently [ ] 4 = Nearly always Total score = * A score of 8 or higher reflects high burden and needs further follow-up. Needs identified by caregiver: SOCIAL WORK SUMMARY: /Caregiver has been provided with information regarding: VA AND COMMUNITY RESOURCES [X] VA Home Health Aide Services [ ] Elder Care Services [ ] Inpatient/In-Home Respite [ ] Adult Day Health [ ] Hospice [ ] Transportation [ ] Guardian Alert/Personal Emergency Response System [X] Construction Specialist Care: [ ] Eligible for VA contracted usp. [X] Not eligible for VA contracted usp. Advised usp care would fall to private pay or Medicaid. [X] [facility] [ ] Housing: [ ] Assisted Living [ ] Independent Living [ ] Other: [ ] Meals on Wheels [ ] Medicaid/Medicare/Shine for private insurance options [X] VA Benefits/Compensation [ ] Caregiver support group [ ] Outpatient individual therapy [ ] Other: SUPERVISOR PARTIAL DENTURE DEPARTMENT PLANNING [X] Patient to stay at home with assistance. [ ] Patient willing to consider SNF. [ ] Declined to discuss usp planning. ALTERNATIVE PLACEMENT/EMERGENCY PLAN [ ] VA Contract Assisted Respite [ ] In-home Respite [X] Alternative family members providing care [ ] [place] can remain home safely short-term. [ ] is independent and does not require a caregiver. [ ] /Caregiver declined. SW will continue education placement plans for urgent/emergent care on an annual basis. ASSESSMENT NARRATIVE: Today's initial assessment was conducted with [place] alone. Mr. Mena is an 88 year old [place] who lives in a private one level home in [place]. has 5 adult children that he considers his own but were from his . One of his sons and his grandson live with him. Grandson is filling his SHOP [employer]TER hours paid by [place] and there most of the time to assist him with ADLs and IADLs. He has 2 daughter in [facility], a son in [place], and a son in [facility]. Grandson and would like to get more hours but he is at the maximum right now. Discussed filing claim for Aid and Attendance which is meant for paying for care including private pay. [place] in agreement and this specifications writer will contact [facility] for assistance. 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 [place] reported feeling very down yesterday due feeling very poorly yesterday. He felt it was a setback. Today is a better day and he denies depression but does have a hard time coping with inability to ambulate freely like he used to and drive. He also spoke of being the last sibling out of 7 alive and loss of all his friends and having difficulty coping with that. Active listening, support and validation provided. He indicated benefiting from talking with this specifications writer and is in agreement to monthly supportive visits. SOCIAL WORK PLAN OF CARE: --Refer to [facility] for Aid and Attendance. --Contact [facility] Medical records dept for copy of HCP. --Provide follow up visit next month to assist in coping with health issues and isolation. Depression Screening: Perform PHQ-2 A PHQ-2 screen was performed. The score was 1 which is a negative screen for depression. Over the past two weeks, how often have you been bothered by the following problems? 1. Little interest or pleasure in doing things Not at all 2. Feeling down, depressed, or hopeless Several days Advance Directive Screen MH AD: Patient has an up-to-date Advance Directive at an outside, non-VA facility and was asked to forward a copy to his/her clinician. Suicide Screen: C-SSRS Screening Grundy-Suicide Severity Rating Scale (C-SSRS Screener) 1. Over the past month, have you [...] responses to other questions. Homelessness/Food Insecurity Screen: The reports the following: Within the past 12 months, you worried whether your food would run out before you got money to buy more. Never true Within the past 12 months, the food you bought just didn't last and you didn't have money to get more. Never true Alcohol Use Screen (AUDIT-C): Alcohol Screen: SCREEN [...] you were drinking in the past year? One or two drinks 3. How often did you have six or more drinks on one occasion in the past year? Never /michell/ SHELLEY HERBERT CUSTOMER SERVICE CONSULTANTFR[facility] Wide Load Escort Signed: 04/17/2024 15:55 SHELLEY HERBERT CNTRL [facility]
--- OUTSIDE RECORDS SUMMARY | 2024-04-19 17:22 | XMS_ITS ---
Author Name [facility] of Veter[facility] Affairs ([place]) Organization [facility] of [facility] [place]) Address [address] [place] [id number] Care Team Providers Care Puffer Tender Name Role Phone ARDEN TRENT Primary Care [...] PART A Apr 22, 2001 PART A [id number] JENIFER ANAYA PATIENT MEDICARE (WNR) MEDICARE (M) PART B Apr 22, 2001 PART B [id number] JENIFER ANAYA PATIENT [employer] MEDIG[employer] PLAN F May 11, 2008 PLANF [id number] JENIFER ANAYA PATIENT Selected Encounter This section includes the information on record at OR for the Encounter. Date/Time Encounter Type Encounter Description Reason Pro vider Source Apr 07, 2024 02:33 PM Outpatient Encounter [facility] PHYSIC EXTND(REVIEW SCHEDULING COORDINATOR,ACCOUNTANT CLERK,PA) IHE Encounter Template Text not used by OR Plan of Treatment: Future Appointments (+ 6 months) and Future Tests (+/- 45 days) The Plan of Treatment section includes future care activities for the patient from all [place] treatmentfacilities. This section includes future appointments and [...] of theEncounter. The data comes from all [place] treatment facilities. Test Date/Time Test Type Test Details Facility Name Apr 03, 2024 02:43 PM Consult Order [facility] NUTRI TION SPOPC OUTPT Cons [employer] Engineer's Choice [facility] [place] Encounter Notes: All associated encounter notes This section contains the clinical notes associated to the Encounter. Date/Time Encounter Note(s) Provider Source Apr 07, 2024 02:33 PM [facility] NOTE: LOCAL TITLE: [facility] INTERDISCIPLINARY NOTE STANDARD TITLE: [facility] NOTE DATE OF NOTE: APR 07, 2024@14:33 ENTRY DATE: APR 09, 2024@14:33:29 AUTHOR: LISA VIVAS EXP COSIGNER: URGENCY: STATUS: COMPLETED [facility] INTERDISCIPLINARY NOTE Has ADDENDA INTERDISCIPLINARY NOTE Allergies: Patient has answered NKA Risk Assessment Level 1 Low risk DNR: No Advanced Directive Completed: No Family/Community Support:sanna Lim (both live in home), [employer] 13hrs/wk Mental Status: A & O X 3 PLAN OF CARE Initial Dates covered by plan of care from Mar to Jun Primary Care Provider: Dr Trent to Ms Fabiana NP PROBLEM LIST: Active problems - Computerized Problem List is the source for the followin. Lower urinary tract symptoms due to benign prostatic hypertrophy 2. History of cardiac catheterization 3. Frail elderly 4. Long-term current use of anticoagulant 5. CHF - Congestive Heart Failure ([facility] [id number]) 6. HTN - Hypertension ([facility] [id number]) 7. Hyperlipidemia ([facility] [id number]) 8. Diabetes Mellitus Type 2 ([facility] [id number]) 9. CAD - Coronary Artery Disease ([facility] [id number]) 10. OA - Osteoarthritis ([facility] [id number]) 11. AF - Atrial fibrillation 12. Under care of multiple providers non VA PCP: Dimitri Wilsno [phone] Cardiology: Yosef Cuello [phone] Optometry: Randall Blake [phone] [facility] Medications: Active Outpatient Medications (including Supplies): Active Outpatient Medications Status 1) APIXABAN 5MG TAB TAKE ONE TABLET BY MOUTH EVERY 12 HOURS FOR ACTIVE Indication: ATRIAL FIBRILLATION 2) DEPEND UNDERWEAR,MAXIMUM,MEN LARGE USE 1 BRIEF DIRECTED ACTIVE TWICE DAILY NEEDED Active Non-VA Medications Status 1) Non-VA ACETAMINOPHEN [...] BY MOUTH ONCE DAILY ACTIVE 6) Non-VA GLYBURIDE 2.5MG TAB 2.5MG BY MOUTH TWICE DAILY ACTIVE Indication: FOR TYPE 2 DIABETES MELLITUS 7) Non-VA METFORMIN HCL 1000MG TAB 1000MG BY MOUTH TWICE DAILY ACTIVE 8) Non-VA SOLIFENACIN SUCCINATE 5MG TAB 5MG BY MOUTH ONCE DAILY ACTIVE 9) Non-VA SPIRONOLACTONE 25MG TAB 25MG BY MOUTH ONCE DAILY ACTIVE 10) Non-VA TAMSULOSIN HCL 0.4MG CAP 0.4MG BY MOUTH ONCE DAILY ACTIVE 12 Total Medications Gender Specific Health Assessment: urinary 'dribbling', BPH Fall Risk: [facility] 10 Fall Risk Assessment Tool Required Core [...] adhere to the plan of care. Total: 7- A score of 4 or more is considered at risk for falling. Created by: [facility] Functional Limitations Use of assistive devices cane, walker, tub bench Needs assistance with transfers bowel/bladder incontinence Nutritional Requirements: Diet:regular RN VISIT FREQUENCY RN 1 to 4 visits per 4-6 weeks and 3 PRN [facility] RN visits for changes in Health Status Assess: vital signs to include pain assessment, pain control response to medications, bowel and bladder function, s/s of deterioration and management of complications related to disease process, cardiopulmonary status, effects of comfort measures, psychosocial status, and neurological status PROBLEM ADDRESED 1. PROBLEM ADDRESSED: Diabetes SPECIFIC GOAL: Crosby's blood glucose levels will remain <170 over the next 90 delgado MEASURABLE: Monitor Hgb A1C as ordered to monitor efficacy of treatment INTERVENTIONS: review diabetic diet every nursing visit review glucose monitor log every visit t/a/e s/s hypo and hyperglycemia and when to call OR vs 911 RELEVANT: will remain from complications associated w/ diabetes which will help him remain stable and remain at home which matters most to him TIME: Smart goals will be assessed at routine visits and every 90 days during IDT. 2. PROBLEM ADDRESSED: High risk for bleeding secondary to use of blood thinner SPECIFIC GOAL: will remain free from complications associated w/ blood thinner use over the next 90 days MEASURABLE: Assess for s/s bleeding and med compliance every visit INTERVENTIONS: t/a/e s/s bleeding and when to call [place] 911 Monitor med environmental compliance inspector labs as needed RELEVANT: Crosby will remain from complications associated w/ blood thinner use which will help him remain stable and remain at home which matters most to him TIME: Smart goals will be assessed at routine visits and every 90 days during IDT. s 3. PROBLEM ADDRESSED: High Risk for Falls SPECIFIC GOAL: What does the Crosby want to accomplish? prevent falls in the home MEASURABLE: How are you going to measure progress? will be able to verbalize safety awareness. Crosby will be able to report no falls at q 4-6 week nursing visits INTERVENTIONS: What are the steps needed to achieve the specific goal? assess home environment. Educate in removal of hazards such as scatter rugs and clutter Refer to OT for home safety eval Assess mental status changes at each visit Assess 's balance and gait at each visit RELEVANT: Does it pertain to your 's goals for his or her life or health? Does the goal have meaning? Crosby will be able to remain indep in his home which is part of what matters for him. TIME: Smart goals will be assessed at routine visits and every 90 days during IDT. This ongoing goal will be assessed at [facility] RN visits and every 90 days at IDT meetings 4. PROBLEM ADDRESSED: Congestive Heart Failure SPECIFIC GOAL: What does the Crosby want to accomplish? Remain free from s/s CHF exacerbation MEASURABLE: How are you going to measure progress? will report stable weight and BP each nursing visit INTERVENTIONS: What are the steps needed to achieve the specific goal? will monitor BP daily Crosby will monitor weight daily and notify MD for weight gain of 3lbs in 2 days or 5lbs in one week Crosby will take medications as prescribed Crosby will follow low Na diet RELEVANT: Does it pertain to your Crosby's goals for his or her life or health? Does the goal have meaning? will remain free from CHF exacerbation which will help stay out of the hospital TIME: Smart goals will be assessed at routine visits and every 90 days during IDT. This ongoing goal will be assess each [facility] nursing visit and at every 90 day IDT meeting 5. PROBLEM ADDRESSED: Suprapubic catheter SPECIFIC GOAL: will remain free from complications associated w/ SPT over the next 90 days MEASURABLE: discuss with how he is managing/coping w/ use of SPT INTERVENTIONS: review s/s UTI every nursing visit review care of SPT insertion site every visit t/a/e s/s decomp and when to call VNA vs 911 t/a/e use of urinary cath equipment via clean technique Discuss w/ [facility] regarding any concerns or questions regarding SPT RELEVANT: will remain from complications associated w/ diabetes which will help him remain stable and remain at home which matters most to him TIME: Smart goals will be assessed at routine visits and every 90 days during IDT. Skilled Interventions: venipuncture (include test ordered and frequency): as per provider order catheter, teach care (freq of change): teach/monitor care of Suprapubic Catheter oxygen saturation (frequency):every visit as needed weight (frequency):every 1-3 months as tolerated cognition assessment; safety concerns preventative care primary care Education: pain/symptom control medication administration/side effects bowel program appropriate skin care emergency management incontinence management nutritional needs fluid intake s/s disease progression and complications diabetes management hypertension management Individualized Outcomes: pain and symptoms of physical discomfort will remain at acceptable level patient/family will demonstrate ability to perform procedures from plan of care to remain safe in the home patient will receive adequate care from caregiver to meet needs patient will maintain intact skin integrity or appropriate wound treatment patient/caregiver will verbalize outcomes to education patient/caregiver will verbalize/demonstrate management of incontinence patient will take medications as per MD orders patient will recognize changes that require reporting to [facility] staff patient will do accuchecks and follow diabetic diet patient will demonstrate correct use of adaptive equipment patient will be safe in home with environment adjusted to accommodate decrease in cognition and/or increase in disease progression Involvement of additional [facility] team members: N.P. assess and attach specific plan SW assess and attach specific plan RD assess and attach specific plan O.T. assess and attach specific plan request pharmacy review of medications Discharge Plan when able to remain in community safely with assistance of services and or family Per [facility] Discharge Policy Comments: Mr Hina Anaya is a [facility] who lives in a single family home w/ his son and his grandson. Crosby is A&Ox3, able to provide medical history [...] is NIDDM as well. Currently is receiving [place] [facility] services every 2 weeks for care of SPT w/ changes monthly, medication prefills and general assess. 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 Medications filled through [facility] in [place] although would like to transition meds to [facility] as appropriate. Medical records from recent admission to [facility] in [place]; Dr Cuello, cardiology and Dr Lea, urology [...] pink hypergranulation tissue noted at site edges; FITNESS SERVICES MANAGER. Plan for shelter [facility] assistance due to advanced age, homebound status and multiple chronic medical issues. /es/ LISA VIVAS RN, BSN [facility] TECHNOLOGY EDUCATION TEACHER Signed: 04/09/2024 15:02 Receipt Acknowledged By: 04/09/2024 15:06 /es/ LISA VIVAS RN, BSN [facility] TECHNOLOGY EDUCATION TEACHER for ALBERTO DENNISON 04/09/2024 16:34 /es/ Bambi Ritter, MSN, REVIEW SCHEDULING COORDINATOR [facility] Process Laboratory Specialist 04/09/2024 16:12 /es/ MIRI SAGE [facility] Clinical Pharmacist Practitioner 04/10/2024 08:30 /es/ Sabrina CRUZ [facility] accounting manager 04/09/2024 16:16 /es/ JUVENTINO MARTIN RN,MSN,METHODS AND PROCEDURES ANALYST-C [facility] NURSE PRACTITIONER * AWAITING SIGNATURE * SAMMIE CARDONA 04/10/2024 15:27 /es/ Monica Fairchild RN [facility] accounting manager 04/10/2024 09:55 /es/ GLENN FOWLER NP [facility] Nurse Practitioner 04/09/2024 15:28 /es/ SHELLEY HERBERT SATELLITE DISH INSTALLER [facility] Teacher Public Health 04/09/2024 15:33 /es/ Mildred Ewing [facility] Occupational Therapist 04/13/2024 07:47 /es/ DIANE SANTOS STAFF DIETITIAN 04/09/2024 16:31 /es/ Filomena Jeffries RN BSN [facility] TECHNOLOGY EDUCATION TEACHER 04/10/2024 08:51 /es/ ALAN Mullen MD 04/09/2024 ADDENDUM STATUS: COMPLETED Initial assessment to be conducted within 30 days of admission to [facility] program. /michell/ SHELLEY HERBERT SATELLITE DISH INSTALLER [facility] Teacher Public Health Signed: 04/09/2024 15:30 04/09/2024 ADDENDUM STATUS: COMPLETED New [facility] admission. Will complete OT assessment and initial home safety evaluation to identify rehab and equipment needs. Once initial rehab needs are addressed, [facility] Rehab will follow up with at least annually and as need arises for change in function. /es/ Mildred Ewing [facility] Occupational Therapist Signed: 04/09/2024 15:33 04/09/2024 ADDENDUM STATUS: COMPLETED Medication regimen was reviewed within 30 days of admission. Please see the 04/06/24 [facility] Pharmacy Medication Review note. /es/ MIRI SAGE [facility] Clinical Pharmacist Practitioner Signed: 04/09/2024 16:13 04/09/2024 ADDENDUM STATUS: COMPLETED To admit w/in 30 days /michell/ JUVENTINO MARTIN RN,MSN,METHODS AND PROCEDURES ANALYST-C [facility] NURSE PRACTITIONER Signed: 04/09/2024 16:17 LISA VIVAS [facility]
--- OUTSIDE RECORDS SUMMARY | 2024-04-19 17:22 | XMS_ITS | Encounter Summary ---
Author Name [place] Organization [place] Address [address] [place] [address] Care Team Providers Care Shipfitter Helper Name Role Phone ARDEN TRENT Primary Care [...] PART A Apr 22, 2001 PART A [id number] JENIFER ANAYA PATIENT MEDICARE (WNR) MEDICARE (M) PART B Apr 22, 2001 PART B [id number] JENIFER ANAYA PATIENT [employer] MED[employer] PLAN F May 11, 2008 PLANF [id number] JENIFER ANAYA PATIENT Selected Encounter This section includes the information on record at [place] for the Encounter. Date/Time Encounter Type Encounter Description Reason Provider Source Apr 16, 2024 10:00 AM [facility]-SERV OF OT,EA 15 MIN [facility] - THERAPIST ICD-10-CM R26.9 Unspecified abnormalities of gait and mobility GAY EWING Encounter Template Text not used by [place] Assessments - Encounter Diagnoses This section includes the primary and secondary diagnoses documented for the Encounter. Date/Time Primary/Secondary Diagnosis Diagnosis Name Provider Source Apr 16, 2024 04:35 PM PRIMARY Unspecified abnormalities of gait and mobility GAY EWING [facility] Plan of Treatment: Future Appointments (+ 6 months) and Future Tests (+/- 45 days) The Plan of Treatment section includes future care activities for the patient from all [place] treatmentfacilities. This section includes future appointments and [...] of theEncounter. The data comes from all [place] treatment facilities. Test Date/Time Test Type Test Details Facility Name Apr 03, 2024 02:43 PM Consult Order [facility] NUTRI TION SPOPC OUTPT Cons Machine Clerical Verifier's Choice [facility] Encounter Notes: All associated encounter notes This section contains the clinical notes associated to the Encounter. Date/Time Encounter Note(s) Provider Source Apr 16, 2024 10:00 AM [facility] CONSULT: LOCAL TITLE: CONSULT REPORT/[facility]/OCCUPATIONAL THERAPY EVALUATION STANDARD TITLE: [facility] CONSULT DATE OF NOTE: APR 16, 2024@10:00 ENTRY DATE: APR 16, 2024@15:58:25 AUTHOR: GAY EWING EXP COSIGNER: URGENCY: STATUS: COMPLETED CONSULT REPORT/[facility]/OCCUPATIONAL THERAPY EVALUATION Has ADDENDA Occupational Therapy Assessment (X)Initial ( )Annual ( )Other Date: 04/17/2024 Time: 10:00-11:15 am PATIENT IDENTIFIERS (2): X FULL NAME X Diagnosis: Muscle Weakness (Generalized)(ICD-10-CM M62.81) PMH: Active problems - Computerized Problem List is the source for the followin. Lower urinary tract symptoms due to benign prostatic hypertrophy 2. History of cardiac catheterization 3. Frail elderly 4. Long-term current use of anticoagulant 5. CHF - Congestive Heart Failure ([facility] [id number]) 6. HTN - Hypertension ([facility] [id number]) 7. Hyperlipidemia ([facility] [id number]) 8. Diabetes Mellitus Type 2 ([facility] [id number]) 9. CAD - Coronary Artery Disease ([facility] [id number]) 10. OA - Osteoarthritis ([facility] [id number]) 11. AF - Atrial fibrillation WHAT MATTERS What Matters was addressed at this visit. Comment: wants to remain at home; does not want to be kept alive with tubes MOBILITY -------- Mobility was addressed at this visit. Comment: [facility] score 7 VITALS: not formally assessed SOCIAL HISTORY/DEMOGRAPHICS: lives in single family home with son and grandson who moved in to assist him. Grandson is with most of the time and is a paid caregiver. Per Clarington, grandson completed 4 years in the [employer] and was planning on attending college but is putting that on hold to assist . Clarington's a few years ago. has lives in his home for >50 years. SUBJECTIVE: no complaints; cooperative with assessment COGNITIVE STATUS: alert, oriented PAIN: none reported, but admits to taking Tylenol earlier due to discomfort around suprapubic catheter port FALLS: no OBJECTIVE: Clarington was referred to Occupational Therapy for initial home safety evaluation and to assess need for adaptive equipment. PHYSICAL ASSESSMENT OF ROM/MMT: ROM WNL, strength >4/5, reports decreased activity tolerance FUNCTIONAL TRANSFERS: modified independence with rollator FUNCTIONAL MOBILITY: ambulates household distances with rollator SELFCARE Dressing: independent except for socks; has sock aide but was unsure how to use it; provided education this date; verbalized understanding but did not want to counter demonstrate Bathing: showers with assist of for standby during transfer currently has tub/shower combo with tub transfer bench, multiple grab bars and hand held shower attachment; he reports he has applied for a [employer] puja for tub to walk in shower conversion; he is awaiting approval Toileting: supra pubic catheter- managed emptying bag; independent toileting for bowel management Eating: feeds self without difficulty; receives MOWs; caregivers assist with meals; he is able to retrieve items from the refrigerator HOME SAFETY CHECKLIST: Type of Home - single family; one story with basement Stairs to enter - 2 Stairs in the home - full flight to basement with stair glide in place that was [id number]; Clarington reports he does not go down stairs any longer to do laundry Railings at all stair locations - yes to outdoors Lighting (y = safe; n = not safe) Stairs - y Bathroom - y Kitchen - y General - y Floor type Bathroom - laminate Kitchen - laminate General - carpet Appropriate Shoes - yes Bathtub/Shower Type - combo; conversion to walk in shower in progress Toilet Type - comfort height elongated Kitchen - galley with adjacent dining room Clutter - minimal Cleanliness - fair Clear Walking Paths - yes; 3 cats but not present Throw Rugs - no Medications Stored Properly - yes; prefilled by A nurse Smoke Detectors/CO Detectors working - yes-per 's report Outside home environment - lawn, pavement Smoking - no Oxygen - no Oxygen Safety (if above is yes, reviewed with patient) Oxygen Sign Posted on Front Door No Open Flames 01/29 Rule Oxygen Tank Storage No Petroleum Products On/Near Face How does the patient/client best learn? verbal cues, demonstration Does the patient/client have any cultural and yazidi beliefs, emotional barriers, physical or cognitive limitations, and communication barriers which may impact his/her ability to learn? no Desire and motivation to learn? good Other Safety: Telephone: cell phone Tripping/safety hazards: potentially 3 cats Emergency: [facility] Alert EQUIPMENT: rollator, transport wheelchair, tub transfer bench, hand held shower, grab bars in shower, life alert PATIENT EDUCATION: regarding equipment options and safety Assessment/Recommendations: Emiliana demonstrated good safety when moving throughout his home using rollator. He would like to ambulate without the rollator but realizes he needs it to prevent falls. He has had home PT in the past but feels he has declined and is interested in participation in therapy again. Emiliana is currently working on having tub/shower conversion to walk in shower. He reports he is awaiting approval of [facility] puja. Discussed equipment options and he is willing to further discuss once shower conversion is completed. Emiliana demonstrated toilet transfers and currently holds on to rollator and wall for support. Suggested he would benefit from toilet safety rails and he is agreeable to try. He would also benefit from a grab bar on the wall next to the toilet. Clarington demonstrated bed transfers without difficulty. Offered to provide bed transfer handle, however Clarington does not feel this is necessary at this time. Goals: Clarington will: receive and use toilet safety rails and grab bar for optimal safety during toilet transfers. Plan: Will explore shower equipment needs once conversion is completed. Clarington declines bed transfer handle or manual wheelchair at this time. Will discuss continued rehab options with nurse/CONTROL ELECTRICIAN. Follow up for education as needed. The practitioner's co-signature on this note signifies agreement with plan of care and clinical diagnosis code. /michell/ Gay Ewing [facility] Occupational Therapist Signed: 04/16/2024 16:35 Receipt Acknowledged By: 04/17/2024 07:47 /michell/ JUVENTINO MARTIN RN,MSN,SENIOR STORAGE ADMINISTRATOR-C [facility] NURSE PRACTITIONER 04/16/2024 ADDENDUM STATUS: COMPLETED Has manual wheelchair, not transport wheelchair. /seven Ewing [facility] Occupational Therapist Signed: 04/16/2024 16:38 GAY EWING PA [facility]
--- NOTE | 2024-04-19 17:23 | ED_ITS ---
HPI - General Adult General Chief complaint: Urogenital-Male Stated complaint: dehydrated, blood in urine Time Seen by Provider: 04/19/24 21:24 Source: patient Limitations: no limitations History of Present Illness ED Provider: Maryse Kellogg PA-C HPI narrative: 88-year-old male with a history of urinary retention now status post suprapubic catheter followed by Dr. Lea, with recurrent complex urinary tract infections and ongoing hematuria, HFr EF of 15-20%, ischemic cardiomyopathy, paroxysmal AFib on apixaban, hypertension, hyperlipidemia, diabetes, presents with abdominal pain. Patient just completed [address] courses of antibiotics per Dr[address] Lea, just finishing the most recent course last week. Patient is having persistent hematuria, poor oral intake and lethargy. Associated nausea and suprapubic discomfort. Denies active vomiting or fever. Related Data Home Medications ?Medication ?Instructions ?Recorded ?Confirmed acetaminophen 500 mg tablet 1,000 mg PO Q6H PRN Pain 11/16/23 03/16/24 metoprolol succinate 25 mg 25 mg PO DAILY 02/28/24 03/16/24 tablet,extended release 24 hr Previous Rx's ?Medication ?Instructions ?Recorded blood-glucose meter (Accu-Chek #1 ea 05/24/22 Guide Glucose Meter) blood-glucose meter (FreeStyle #1 ea 06/09/22 Lite Meter kit) amiodarone 200 mg tablet 200 mg PO DAILY 90 days #90 tabs 01/15/24 apixaban 5 mg tablet (Eliquis) 5 mg PO BID #180 tabs 01/28/24 blood sugar diagnostic (FreeStyle #100 ea 02/11/24 Lite Strips) spironolactone 25 mg tablet 25 mg PO DAILY #90 tabs 02/11/24 atorvastatin 40 mg tablet 40 mg PO BEDTIME #90 tabs 02/17/24 metformin 500 mg tablet 1,000 mg (2 x 500 mg) PO BID 30 02/17/24 days #120 tabs finasteride 5 mg tablet 5 mg PO DAILY 90 days #90 tabs 03/02/24 tamsulosin 0.4 mg capsule 0.4 mg PO DAILY 90 days #90 caps 03/02/24 furosemide 20 mg tablet 20 mg PO DAILY PRN >90 SBP #90 tabs 03/18/24 sulfamethoxazole 800 1 tab PO BID 5 days #10 tabs 03/25/24 mg-trimethoprim 160 mg tablet (Bactrim DS) solifenacin 5 mg tablet (Vesicare) 5 mg PO DAILY 30 days #30 tabs 03/31/24 levofloxacin 250 mg tablet 250 mg PO DAILY 5 days #5 tabs 04/10/24 glyburide 2.5 mg tablet 2.5 mg PO BID #60 tabs 04/17/24 Allergies Allergy/AdvReac Type Severity Reaction Status Date / Time No Known Allergies Allergy Verified 04/19/24 17:25 [No Known Allergies*] Review of Systems 2 Review of Systems: Yes all other systems are reviewed and are negative Constitutional: Constitutional: Reports fatigue, Denies fever(s), Reports lethargy, Reports malaise and Reports poor appetite Cardiovascular: Cardiovascular: Denies chest pain and Denies dyspnea Respiratory: Respiratory: Denies dyspnea Gastrointestinal: Gastrointestinal: Reports abdominal pain, Reports nausea and Denies vomiting Genitourinary: Genitourinary: Reports hematuria Endocrine: Endocrine: Reports fatigue PMFSH Past Medical History Attestation statement: The following information was validated with the patient. Medical History CAD (coronary artery disease) HFrEF (heart failure with reduced ejection fraction) Acute exacerbation of CHF (congestive heart failure) Hyperlipidemia Alcohol abuse Diabetes mellitus Hypertension Surgical History History of cardiac cath History of hernia repair Family History Family History Father Liver problem Mother Past heart attack Brother Cancer Sister Cancer Social History Social History Household Members: Family Housing: House Do you presently have visiting nurse or other home services: Yes (VNA & Grandson helps with care.) Unable to assess alcohol history related to: Unknown Alcohol intake: current Alcohol intake frequency: holidays/special occasions only Alcohol type: beer Patient Tobacco Use Status: Former Tobacco user Tobacco use type: Cigarette (quit 57 years ago) Smoked in Last 30 Days: No e-Cigarette/Vaping Use: Never Used Second Hand Smoke Exposure: No Use of substances other than those prescribed or required for medical reasons: No Advance Directives: No Advance Directives Information Provided: No service: Yes Current occupational status: retired Current occupation: retired [employer] Current occupational exposures/hazards: No Cognitive needs: No Hearing needs: No Vision needs: Yes (reading glasses) Physical Exam ED Vital Signs: Vital Signs - 24 hr 04/19/24 17:22 04/19/24 20:00 04/19/24 22:00 Temperature 97.0 F 97.7 F 97.8 F Pulse Rate 96 93 91 Respiratory Rate 16 16 16 Blood Pressure 117/59 L 121/69 127/67 Pulse Oximetry 97 100 98 Oxygen Delivery Method Room Air Room Air Room Air 04/20/24 00:00 Temperature 97.7 F Pulse Rate 91 Respiratory Rate 16 Blood Pressure 130/72 Pulse Oximetry 98 Oxygen Delivery Method Room Air BMI result Body Mass Index 21.7 Const Other: Alert Orientation/consciousness: patient oriented x3 Resp Effort & Inspection: normal respiratory effort Cardio Other: Normal peripheral perfusion GI Other: Abdomen soft, nondistended, moderate tenderness across lower abdomen mostly over suprapubic region without guarding Skin Other: Warm dry no rash Neuro General: patient oriented x3, no focal motor deficits and CN's II-XI intact bilaterally Psych Other: Calm cooperative Course Course Course Narrative: This is a Rapid Medical Examination (RME) performed by Jenna Sood PA-C in triage. Full HPI, ROS, assessment and treatment plan per primary provider in the Main ED. 88 yo male here w/ grandson for eval of lethargy (today), persistent hematuria, and decreased fluid intake. he recently completed two course of abx for UTIs per Dr. Lea (last dose 1 wk ago). has chronic suprapubic cath in place. Plan: labs, ekg, trop, UA Reevaluation(s) Reevaluation #1: patient meets sepsis criteria, He can not receive weight based IV fluid secondary to his heart failure. will give a 500 mL bolus. adding blood cultures, lactic acid and a CT scan of the abdomen. Treating with ceftriaxone based on his last culture and sensitivity of the urine. he is afebrile Time: 21:52 Medications Administered Discontinued Medications Generic Name Dose Route Start Last Admin Trade Name Freq PRN Reason Stop Dose Admin Ceftriaxone Sodium 2 gm 04/19/24 21:29 04/19/24 21:57 Ceftriaxone Sodium 2 Gm Vial IVPUSH 04/19/24 21:30 2 gm ONCE ONE Administration Sodium Chloride 500 mls @ 500 mls/hr 04/19/24 21:28 04/19/24 23:00 Ns IV 04/19/24 22:27 Infused .Q1H ONE Infusion Medical Decision Making Medical Decision Making [facility] Narrative: 88-year-old male with a history of urinary retention now status post suprapubic catheter followed by Dr. Lea, with recurrent complex urinary tract infections and ongoing hematuria, HFr EF of 15-20%, ischemic cardiomyopathy, paroxysmal AFib on apixaban, hypertension, hyperlipidemia, diabetes, presents with abdominal pain. Patient just completed 2 courses of antibiotics per Dr. Lea, just finishing the most recent course last week. Patient is having persistent hematuria, poor oral intake and lethargy. Associated nausea and suprapubic discomfort. Denies active vomiting or fever. Problem: Age, suprapubic cath, recurrent UTIs, heart failure, anticoagulated History: Per patient I have considered the following differential diagnoses: Urosepsis,/ pyelonephritis, complex UTI, obstructing kidney stone, bladder malignancy Plan: Screening labs already obtained from triage including a urinalysis, the urine is infected. The patient meets sepsis criteria, which I initiated earlier. He can not receive weight based IV fluid secondary to his heart failure. I gave a 500 mL bolus. We will be adding blood cultures, lactic acid and a CT scan of the abdomen. In chart review, his last urine culture and sensitivity revealed that ceftriaxone would be an appropriate choice for treatment at this time. Doubtful to be an obstructing kidney stone, he is not having discrete flank pain, overall he appears comfortable. I have independently reviewed the following tests: Labs: Leukocytosis with left shift, not anemic, no electrolyte abnormality, creatinine elevated from his baseline at 1.43, lactic acid 2.[address] abd/pelvis: Lab Data 04/19/24 20:06 04/19/24 20:06 Labs: Lab Results 04/19/24 04/19/24 04/19/24 Range/Units 17:48 20:00 20:06 WBC 12.8 H (4.8-10.8) X10*3/uL RBC 3.49 L (4.60-5.80) X10*6/uL Hgb 11.0 L (14.0-18.0) g/dl Hct 32.9 L (42.0-52.0) % MCV 94.3 (80.0-98.0) fL MCH 31.5 (27.0-33.0) pg MCHC 33.4 (31.0-36.0) g/dl RDW 14.4 (11.0-16.0) % Plt Count 295 (160-400) X10*3/uL MPV 9.8 (9.4-12.4) fL Immature Gran % (Auto) 0.8 H (0.0-0.4) % Neut % (Auto) 77.5 H (45-73) % Lymph % (Auto) 11.8 L (20-40) % [place] % (Auto) 7.5 (2-11) % Eos % (Auto) 1.9 (0-4) % Baso % (Auto) 0.5 (0-2) % Lymph # (Auto) 1.5 (1.2-4.9) X10*3/uL [place] # (Auto) 1.0 (0.1-1.2) X10*3/uL Eos # (Auto) 0.2 (0.0-0.4) X10*3/uL Baso # (Auto) 0.1 (0.0-0.2) X10*3/uL Abs Immat Gran (auto) 0.10 H (0.00-0.03) X10*3/uL Absolute Neuts (auto) 9.9 H (2.0-8.3) x10*3/uL Absolute Nucleated RBC 0.000 (0.0-0.012) X10*3/uL Nucleated RBC % (auto) 0.0 (0.0-0.2) /100WBC Sodium 134 L (135-145) mmol/L Potassium 4.9 (3.3-5.1) mmol/L Chloride 100 (96-108) mmol/L Carbon Dioxide 21 L (22-29) mmol/L Anion Gap 18 (12-20) BUN 31 H (9-16) mg/dL Creatinine 1.43 H (0.5-1.4) mg/dL Estim Creat Clear Calc 37.3 Estimated GFR 47 Random Glucose 172 H (60-115) mg/dL Lactic Acid (0.5-2.0) mmol/L Calcium 9.4 (8.4-10.2) mg/dL Magnesium 1.8 (1.6-2.6) mg/dL Total Bilirubin 0.4 (0.0-1.0) mg/dL AST 25 (5-37) U/L ALT 11 (0-40) U/L Alkaline Phosphatase 88 (39-117) U/L Troponin I High Sens 3.0 D (<3.5-35.0) ng/L Total Protein 8.1 H (6.5-8.0) g/dL Albumin 4.0 (3.5-5.0) g/dL Urine Color [place] A Urine Appearance Turbid Urine pH 5.0 (5.0-9.0) Ur Specific [place] 1.020 (1.005-1.025) Urine Protein 100 (2+) H (Neg-Trace) mg/dL Urine Glucose (UA) 250 H (Negative) mg/dL Urine Ketones Trace (Negative) mg/dL Urine Blood Large (3+) H (Negative) Urine Nitrite Positive H (Negative) Ur Leukocyte Esterase Large (3+) H (Negative) Urine RBC >20 H (0-2) /HPF Urine WBC >50 H (0-5) /HPF Ur Squamous Epith Cells 3-5 (0-2) /HPF Urine Bacteria 4+ (None Seen) Hyaline Casts 0-2 (0-2) /LPF Urine Yeast Present Influenza Type A (PCR) NEGATIVE (Negative) Influenza Type B (PCR) NEGATIVE (Negative) RSV RNA Qual (PCR) NEGATIVE (Negative) SARS-CoV-2 RNA (RT-PCR) NEGATIVE (Negative) 04/19/24 04/20/24 Range/Units 21:52 00:50 WBC (4.8-10.8) X10*3/uL RBC (4.60-5.80) X10*6/uL Hgb (14.0-18.0) g/dl Hct (42.0-52.0) % MCV (80.0-98.0) fL MCH (27.0-33.0) pg MCHC (31.0-36.0) g/dl RDW (11.0-16.0) % Plt Count (160-400) X10*3/uL MPV (9.4-12.4) fL Immature Gran % (Auto) (0.0-0.4) % Neut % (Auto) (45-73) % Lymph % (Auto) (20-40) % [place] % (Auto) (2-11) % Eos % (Auto) (0-4) % Baso % (Auto) (0-2) % Lymph # (Auto) (1.2-4.9) X10*3/uL [place] # (Auto) (0.1-1.2) X10*3/uL Eos # (Auto) (0.0-0.4) X10*3/uL Baso # (Auto) (0.0-0.2) X10*3/uL Abs Immat Gran (auto) (0.00-0.03) X10*3/uL Absolute Neuts (auto) (2.0-8.3) x10*3/uL Absolute Nucleated RBC (0.0-0.012) X10*3/uL Nucleated RBC % (auto) (0.0-0.2) /100WBC Sodium (135-145) mmol/L Potassium (3.3-5.1) mmol/L Chloride (96-108) mmol/L Carbon Dioxide (22-29) mmol/L Anion Gap (12-20) BUN (9-16) mg/dL Creatinine (0.5-1.4) mg/dL Estim Creat Clear Calc Estimated GFR Random Glucose (60-115) mg/dL Lactic Acid 2.6 H* 1.2 (0.5-2.0) mmol/L Calcium (8.4-10.2) mg/dL Magnesium (1.6-2.6) mg/dL Total Bilirubin (0.0-1.0) mg/dL AST (5-37) U/L ALT (0-40) U/L Alkaline Phosphatase (39-117) U/L Troponin I High Sens (<3.5-35.0) ng/L Total Protein (6.5-8.0) g/dL Albumin (3.5-5.0) g/dL Urine Color Urine Appearance Urine pH (5.0-9.0) Ur Specific [place] (1.005-1.025) Urine Protein (Neg-Trace) mg/dL Urine Glucose (UA) (Negative) mg/dL Urine Ketones (Negative) mg/dL Urine Blood (Negative) Urine Nitrite (Negative) Ur Leukocyte Esterase (Negative) Urine RBC (0-2) /HPF Urine WBC (0-5) /HPF Ur Squamous Epith Cells (0-2) /HPF Urine Bacteria (None Seen) Hyaline Casts (0-2) /LPF Urine Yeast Influenza Type A (PCR) (Negative) Influenza Type B (PCR) (Negative) RSV RNA Qual (PCR) (Negative) SARS-CoV-2 RNA (RT-PCR) (Negative) Discharge Plan Discharge Clinical Impression: Urinary tract infection associated with cystostomy catheter, Sepsis, Abdominal pain Patient Disposition: Admitted As Inpatient
--- NOTE | 2024-04-19 17:25 | ECG_ITS ---
Test Reason : LETHRGY Blood Pressure : / mmHG Vent. Rate : 092 BPM Atrial Rate : 092 BPM P-R Int : 150 ms QRS Dur : 126 ms QT Int : 372 ms P-R-T Axes : 011 -41 099 degrees QTc Int : 460 ms Normal sinus rhythm Left axis deviation Non-specific intra-ventricular conduction block T wave abnormality, consider lateral ischemia Abnormal ECG When compared with ECG of 19-NOV-2023 10:16, Sinus rhythm has replaced Atrial fibrillation Referred By: Angelika Sood Electronically Signed By:BRITTANY PARKER MD
[2024-04-19 18:52] LABS: Influenza A PCR NEGATIVE (Negative); Influenza B PCR NEGATIVE (Negative); Resp Syncy Virus RNA Qual PCR NEGATIVE (Negative); SARS COV2 PCR INHOUSE NEGATIVE (Negative)
[2024-04-19 20:00] VITALS: BP 121/69; PULSE 93; RESP 16; TEMP 36.5; O2SAT 100
--- NOTE | 2024-04-19 20:09 | PC.NURSE ---
Pt a&ox4, no signs of distress. Pt reports 5/10 suprapubic pain and bleeding in his gifford that started today Pt changed into hospital attire Vitals stable Pt labs completed Plan of care ongoing.
[2024-04-19 20:11] LABS: MANUAL DIFF FLAG NO
[2024-04-19 20:14] LABS: Basophils Absolute Auto 0.1 X10*3/uL (0.0-0.2); Basophils Percent Auto 0.5 % (0-2); Eosinophils Absolute Auto 0.2 X10*3/uL (0.0-0.4); Eosinophils Percent Auto 1.9 % (0-4); Hematocrit 32.9 % (42.0-52.0); Imm Gran Pct Auto 0.8 % (0.0-0.4); Lymphocytes Absolute Auto 1.5 X10*3/uL (1.2-4.9); Lymphocytes Percent Auto 11.8 % (20-40); Mean Corpuscular HGB Conc 33.4 g/dl (31.0-36.0); Mean Corpuscular Hemoglobin 31.5 pg (27.0-33.0); Mean Corpuscular Volume 94.3 fL (80.0-98.0); Mean Platelet Volume 9.8 fL (9.4-12.4); Monocytes Percent Auto 7.5 % (2-11); Neutrophils Absolute Auto 9.9 x10*3/uL (2.0-8.3); Neutrophils Percent Auto 77.5 % (45-73); Platelet Count 295 X10*3/uL (160-400); Red Blood Count 3.49 X10*6/uL (4.60-5.80); Red Cell Distribution Width 14.4 % (11.0-16.0); White Blood Count 12.8 X10*3/uL (4.8-10.8)
[2024-04-19 20:20] LABS: Appearance Urine Turbid; Color Urine Orange; Glucose Urine UA 250 mg/dL (Negative); Leukocyte Esterase Urine Large (3+) (Negative); Nitrite Urine Positive (Negative); UMIC TRIGGER UACC YES; Urine Blood Large (3+) (Negative); Urine Ketones Trace mg/dL (Negative); Urine Protein 100 (2+) mg/dL (Neg-Trace)
[2024-04-19 20:27] LABS: Bacteria Urine 4+ (None Seen); Hyaline Casts Urine 0-2 /LPF (0-2); RBC Urine >20 /HPF (0-2); UACC Culture Trigger YES; WBC Urine >50 /HPF (0-5)
[2024-04-19 20:35] LABS: Alanine Aminotransferase 11 U/L (0-40); Alkaline Phosphatase 88 U/L (39-117); Anion Gap 18 (12-20); Aspartate Amino Transferase 25 U/L (5-37); Bilirubin Total 0.4 mg/dL (0.0-1.0); Blood Urea Nitrogen 31 mg/dL (9-16); Calcium 9.4 mg/dL (8.4-10.2); Carbon Dioxide 21 mmol/L (22-29); Chloride 100 mmol/L (96-108); Creatinine Clr Calc Pharmacy 37.3; Estimated Glomerular Filt Rate 47; Glucose Random 172 mg/dL (60-115); Magnesium 1.8 mg/dL (1.6-2.6); Potassium 4.9 mmol/L (3.3-5.1); Sodium 134 mmol/L (135-145); Total Protein 8.1 g/dL (6.5-8.0)
[2024-04-19] MEDS: cefTRIAXone sodium 2 GM VIAL IVPUSH (21:57)
[2024-04-19] MEDS: 0.9 % Sodium Chloride 500 ML IV (21:58)
[2024-04-19 22:00] VITALS: BP 127/67; PULSE 91; RESP 16; TEMP 36.6; O2SAT 98
--- NOTE | 2024-04-19 22:05 | PC.NURSE ---
Pt medicated per jun. Plan of care ongoing.
--- NOTE | 2024-04-19 22:20 | PC.NURSE ---
This RN spoke w/ pts son Carlyle, regarding update on pt. Per pt, ok for this RN to speak with son. Plan of care ongoing.
[2024-04-19 22:38] LABS: Lactic Acid 2.6 mmol/L (0.5-2.0)
[2024-04-19 23:59] LABS: Reflex Lactate? Lactic Acid Added
[2024-04-20] VITALS (9 sets, daily range): BP systolic 104–130; BP diastolic 57–72; PULSE 78–91; RESP 14–20; TEMP 36.1–37.1; O2SAT 97–99
--- NOTE | 2024-04-20 00:55 | PC.NURSE ---
Pt requested and gifford emptied. Plan of care ongoing.
[2024-04-20 01:14] LABS: Lactic Acid 1.2 mmol/L (0.5-2.0)
--- NOTE | 2024-04-20 01:53 | PM.IMHP ---
History of Present Illness Date of Service: 04/20/24 Chief Complaint: Hematuria This is a 88-year-old male with pertinent history of paroxysmal atrial fibrillation on anticoagulation, congestive heart failure with reduced ejection fraction, ischemic cardiomyopathy with total LAD occlusion, [id number]-[id number] type 2 diabetes mellitus, hypertension, mixed hyperlipidemia, urinary retention with suprapubic catheter, alcohol use disorder, BPH who presents to the emergency department for evaluation of hematuria. Patient states he has been having hematuria for a week now. Also has associated lower abdominal discomfort which is intermittent, progressive, nonradiating and without any relieving factors. Endorses associated nausea and nonbloody emesis. Patient completed oral antibiotics but states abdominal discomfort and hematuria persists. No documented fever. No chest pain, palpitations, shortness of breath, changes in bowel habits. In the emergency department, patient was found to be septic and urine concerning for UTI. Review of Systems Constitutional: Constitutional: Reports fatigue and Reports malaise Cardiovascular: Cardiovascular: Reports no additional cardiovascular complaints Respiratory: Respiratory: Reports no additional respiratory complaints Gastrointestinal: Gastrointestinal: Reports abdominal pain, Reports nausea and Reports vomiting Genitourinary: Genitourinary: Reports hematuria Neurologic: Reports system reviewed and no additional complaints, except as documented Endocrine: Endocrine: Reports fatigue PMFSH Medical History CAD (coronary artery disease) HFrEF (heart failure with reduced ejection fraction) Acute exacerbation of CHF (congestive heart failure) Hyperlipidemia Alcohol abuse Diabetes mellitus Hypertension Family History Father Liver problem Mother Past heart attack Brother Cancer Sister Cancer Surgical History History of cardiac cath History of hernia repair Social History Household Members: Family Housing: House Do you presently have visiting nurse or other home services: Yes (VNA & Grandson helps with care.) Unable to assess alcohol history related to: Unknown Alcohol intake: current Alcohol intake frequency: holidays/special occasions only Alcohol type: beer Patient Tobacco Use Status: Former Tobacco user Tobacco use type: Cigarette (quit 57 years ago) Smoked in Last 30 Days: No e-Cigarette/Vaping Use: Never Used Second Hand Smoke Exposure: No Use of substances other than those prescribed or required for medical reasons: No Advance Directives: No Advance Directives Information Provided: No service: Yes Current occupational status: retired Current occupation: retired [employer] Current occupational exposures/hazards: No Cognitive needs: No Hearing needs: No Vision needs: Yes (reading glasses) Meds Allergies Allergy/AdvReac Type Severity Reaction Status Date / Time No Known Allergies Allergy Verified 04/19/24 17:25 [No Known Allergies*] Home Medications ?Medication ?Instructions ?Recorded ?Confirmed ?Last Taken ?Type acetaminophen 500 mg tablet 1,000 mg PO Q6H PRN Pain 11/16/23 03/16/24 Unknown History metoprolol succinate 25 mg 25 mg PO DAILY 02/28/24 03/16/24 Unknown History tablet,extended release 24 hr Physical Exam Vital Signs and Narrative: Vital Signs: Last Vital Signs Temp 97.7 F 04/20/24 00:00 Pulse 91 04/20/24 00:00 Resp 16 04/20/24 00:00 BP 130/72 04/20/24 00:00 Pulse Ox 98 04/20/24 00:00 O2 Del Method Room Air 04/20/24 00:00 BMI result Body Mass Index 21.7 Elderly male lying in bed in no distress Neck supple, no JVD Regular rate and rhythm, S1-S2 heard Regular breath sounds bilaterally, no wheezing or crackles appreciated Abdomen with tenderness over suprapubic region, suprapubic catheter present Patient is awake, alert and oriented x3 ; no focal motor deficit Psych: Normal mood No pedal edema Results Labs 04/19/24 20:06 04/19/24 20:06 Labs: Laboratory Results - last 24 hr 04/19/24 04/19/24 04/19/24 17:48 20:00 20:06 MCV 94.3 MCH 31.5 MCHC 33.4 RDW 14.4 Plt Count 295 MPV 9.8 Immature Gran % (Auto) 0.8 H Neut % (Auto) 77.5 H Lymph % (Auto) 11.8 L [place] % (Auto) 7.5 Eos % (Auto) 1.9 Baso % (Auto) 0.5 Lymph # (Auto) 1.5 [place] # (Auto) 1.0 Eos # (Auto) 0.2 Baso # (Auto) 0.1 Abs Immat Gran (auto) 0.10 H Absolute Neuts (auto) 9.9 H Absolute Nucleated RBC 0.000 Nucleated RBC % (auto) 0.0 Anion Gap 18 Estim Creat Clear Calc 37.3 Estimated GFR 47 Random Glucose 172 H Lactic Acid Calcium 9.4 Magnesium 1.8 Total Bilirubin 0.4 AST 25 ALT 11 Alkaline Phosphatase 88 Troponin I High Sens 3.0 D Total Protein 8.1 H Albumin 4.0 Urine Color [place] A Urine Appearance Turbid Urine pH 5.0 Ur Specific [place] 1.020 Urine Protein 100 (2+) H Urine Glucose (UA) 250 H Urine Ketones Trace Urine Blood Large (3+) H Urine Nitrite Positive H Ur Leukocyte Esterase Large (3+) H Urine RBC >20 H Urine WBC >50 H Ur Squamous Epith Cells 3-5 Urine Bacteria 4+ Hyaline Casts 0-2 Urine Yeast Present Influenza Type A (PCR) NEGATIVE Influenza Type B (PCR) NEGATIVE RSV RNA Qual (PCR) NEGATIVE SARS-CoV-2 RNA (RT-PCR) NEGATIVE 04/19/24 04/20/24 21:52 00:50 MCV MCH MCHC RDW Plt Count MPV Immature Gran % (Auto) Neut % (Auto) Lymph % (Auto) [place] % (Auto) Eos % (Auto) Baso % (Auto) Lymph # (Auto) [place] # (Auto) Eos # (Auto) Baso # (Auto) Abs Immat Gran (auto) Absolute Neuts (auto) Absolute Nucleated RBC Nucleated RBC % (auto) Anion Gap Estim Creat Clear Calc Estimated GFR Random Glucose Lactic Acid 2.6 H* 1.2 Calcium Magnesium Total Bilirubin AST ALT Alkaline Phosphatase Troponin I High Sens Total Protein Albumin Urine Color Urine Appearance Urine pH Ur Specific [place] Urine Protein Urine Glucose (UA) Urine Ketones Urine Blood Urine Nitrite Ur Leukocyte Esterase Urine RBC Urine WBC Ur Squamous Epith Cells Urine Bacteria Hyaline Casts Urine Yeast Influenza Type A (PCR) Influenza Type B (PCR) RSV RNA Qual (PCR) SARS-CoV-2 RNA (RT-PCR) Assessment and Plan (1) Sepsis: Status: Acute (2) Urinary tract infection associated with cystostomy catheter: Status: Acute (3) Hematuria: Status: Acute Plan This is a 88-year-old male with pertinent history of paroxysmal atrial fibrillation on anticoagulation, congestive heart failure with reduced ejection fraction, ischemic cardiomyopathy with total LAD occlusion, hvq-oahalfk-zgqhilszc type 2 diabetes mellitus, hypertension, mixed hyperlipidemia, urinary retention with suprapubic catheter, alcohol use disorder, BPH who presents to the emergency department for evaluation of hematuria. #. Sepsis due to acute UTI: Resuscitated with IV crystalloids. Lactic acid and blood culture obtained. Initiating empiric IV ceftriaxone. Follow urine culture. #. Hematuria: Likely in the setting of above. No blood clots. Urology consulted. Hold Eliquis, close monitor H&H. CT abdomen/pelvis pending #. Acute kidney injury stage I: Given IV crystalloids in the ER. Hold Lasix, spironolactone and avoid nephrotoxins #. Congestive heart failure with reduced ejection fraction: Compensated. Hold diuresis in the setting of LEFTY #. BPH: On finasteride and Flomax #. Rhu-uhddryg-ymzxxnmym type 2 diabetes mellitus: Initiating Accu-Cheks with sliding scale insulin before meals and at bedtime #. Paroxysmal atrial fibrillation: Hold Eliquis in the setting of hematuria. On amiodarone Med rec pending DVT prophylaxis: Mechanical Full code. Discussed with patient at bedside Admit as inpatient and will require two night minimum hospital stay for IV antibiotics, hemodynamic monitoring, monitoring of kidney function (as above), which is not possible in a lesser acute setting. Quality Stroke Does the patient have a stroke diagnosis?: No VTE Prior VTE?: No VTE Risk Level:: Medical - moderate - high VTE Device Contraindication: N/A - Device Ordered VTE Drug Contraindication: Treatment Not Indicated
[2024-04-20 02:39] LABS: Glucose, Whole Blood 150 mg/dL (60-115)
[2024-04-20 07:20] LABS: MANUAL DIFF FLAG NO
[2024-04-20 07:26] LABS: Basophils Absolute Auto 0.1 X10*3/uL (0.0-0.2); Basophils Percent Auto 0.6 % (0-2); Eosinophils Absolute Auto 0.2 X10*3/uL (0.0-0.4); Eosinophils Percent Auto 2.4 % (0-4); Hematocrit 29.3 % (42.0-52.0); Hemoglobin 9.9 g/dl (14.0-18.0); Imm Gran Abs Auto 0.06 X10*3/uL (0.00-0.03); Imm Gran Pct Auto 0.6 % (0.0-0.4); Lymphocytes Absolute Auto 1.3 X10*3/uL (1.2-4.9); Lymphocytes Percent Auto 13.2 % (20-40); Mean Corpuscular HGB Conc 33.8 g/dl (31.0-36.0); Mean Corpuscular Hemoglobin 31.7 pg (27.0-33.0); Mean Corpuscular Volume 93.9 fL (80.0-98.0); Mean Platelet Volume 9.5 fL (9.4-12.4); Monocytes Absolute Auto 0.8 X10*3/uL (0.1-1.2); Monocytes Percent Auto 8.5 % (2-11); Neutrophils Absolute Auto 7.3 x10*3/uL (2.0-8.3); Neutrophils Percent Auto 74.7 % (45-73); Platelet Count 258 X10*3/uL (160-400); Red Blood Count 3.12 X10*6/uL (4.60-5.80); Red Cell Distribution Width 14.1 % (11.0-16.0); White Blood Count 9.7 X10*3/uL (4.8-10.8)
[2024-04-20 07:34] LABS: Glucose, Whole Blood 176 mg/dL (60-115)
[2024-04-20 07:39] LABS: Anion Gap 12 (12-20); Blood Urea Nitrogen 28 mg/dL (9-16); Calcium 8.5 mg/dL (8.4-10.2); Carbon Dioxide 23 mmol/L (22-29); Chloride 102 mmol/L (96-108); Creatinine Clr Calc Pharmacy 44.8; Estimated Glomerular Filt Rate 58; Glucose Random 171 mg/dL (60-115); Potassium 4.1 mmol/L (3.3-5.1); Sodium 133 mmol/L (135-145)
[2024-04-20] MEDS: Insulin Lispro 100 UNIT/ML 3 ML VIAL SUBCUT ×3 (07:50→16:49)
[2024-04-20] MEDS: 0.9 % Sodium Chloride Flush 3 ML SYRINGE IVFLUSH ×3 (07:52→22:05)
--- NOTE | 2024-04-20 09:12 | PHA.MEDREC ---
Pharmacy Consult ? Medication Reconciliation Pharmacy has completed the medication reconciliation. Spoke with patient at bedside, pt is a poor historian, could not confirm medications. Pt last took medications yesterday morning. Spoke with grandson, Pan, to confirm medications. Spoke with Natalie Josue, from [facility] ([phone]), Natalie confirmed pt is no longer on glyburide, metoprolol, and completed his course fo Bactrim, and Levofloxacin.
--- NOTE | 2024-04-20 09:17 | MHC.CM.PN ---
IMM 04/20/24, EMR REVIEWED PT W/HEMATURIA, CM MET W/PT WHO REPORTS HIS SON ARA AND GSON RONAL LIVE W/HIM, PT HAS BEEING USING DEPENDS FOR THE PAST FEW MONTHS AND A ROLLATER WALKER AT HOME FOR BALANCE, PT REPORTS HE IS IN THE PROCESS OF HAVING VNA SERVICES AT HOME AND IS SUPPOSED TO HAVE SOMEONE COME TODAY OR TOMORROW, PT REPORTS HE IS ACTIVE W/[facility]. PT'S GOAL FOR DC IS HOME TODAY IF POSSIBLE. PT VERIFIES PCP AND REPORTS HIS HCP IS SON ARA AND NIECE DREAD, COPY REEQUESTED.
[2024-04-20] MEDS: levoFLOXacin/D5W 500 MG/100 ML PIGGYBACK 100 MG IV (09:37)
--- NOTE | 2024-04-20 10:43 | PM.EVENT ---
Event Note Date of Service: 04/20/24 Event Note: Day Team Follow Up S seen and examined no complaints O vitals - last documented gen - nad gu - suprapubic cath with tea colored urine neuro - non focal A/P 88 yo M with multiple medical issues presenting with sepsis due to uti change abx to levaqin (previous cx with ECC) hematuria resolved, possibly due to infection restart eliquis when okay with urology continue other care per admission H&P Time Spent With Patient Time: Total time managing care of this patient today ____ minutes.
[2024-04-20] MEDS: Finasteride 5 MG TABLET PO (10:55)
[2024-04-20] MEDS: Amiodarone HCL 200 MG TABLET PO (10:55)
[2024-04-20] MEDS: Tamsulosin HCL 0.4 MG CAPSULE PO (10:55)
[2024-04-20 11:17] LABS: Glucose, Whole Blood 193 mg/dL (60-115)
--- NOTE | 2024-04-20 13:25 | PM.UROCN ---
History of Present Illness Consult details Consult date: 04/20/24 Narrative: Called for hemturia [facility] Past Medical History Medical History CAD (coronary artery disease) HFrEF (heart failure with reduced ejection fraction) Acute exacerbation of CHF (congestive heart failure) Hyperlipidemia Alcohol abuse Diabetes mellitus Hypertension Family History Family History Father Liver problem Mother Past heart attack Brother Cancer Sister Cancer Surgical History Surgical History History of cardiac cath History of hernia repair Social History Social History Household Members: Family and Children Housing: House Do you presently have visiting nurse or other home services: Yes (VNA & Grandson helps with care.) Unable to assess alcohol history related to: Unknown Alcohol intake: current Alcohol intake frequency: holidays/special occasions only Alcohol type: beer Patient Tobacco Use Status: Former Tobacco user Tobacco use type: Cigarette (quit 57 years ago) e-Cigarette/Vaping Use: Never Used Second Hand Smoke Exposure: No service: Yes Current occupational status: retired Current occupation: retired [employer] Current occupational exposures/hazards: No Cognitive needs: No Hearing needs: No Vision needs: Yes (reading glasses) Meds Allergies Allergy/AdvReac Type Severity Reaction Status Date / Time No Known Allergies Allergy Verified 04/19/24 17:25 [No Known Allergies*] Active Medications: Current Medications Acetaminophen (Acetaminophen 325 Mg Tablet) 650 mg PO Q6H PRN PRN Reason: Pain, Mild 1-3,fever,headache Amiodarone HCl (Amiodarone Hcl 200 Mg Tablet) 200 mg PO DAILY [facility] Last Admin: 04/20/24 10:55 Dose: 200 mg Atorvastatin Calcium (Atorvastatin Calcium 40 Mg Tablet) 40 mg PO BEDTIME SALLY Calcium Carbonate (Calcium Carbonate 750 Mg Tab.Chew) 750 mg PO Q4H PRN PRN Reason: Heartburn Finasteride (Finasteride 5 Mg Tablet) 5 mg PO DAILY [facility] Last Admin: 04/20/24 10:55 Dose: 5 mg Glucose (Glucose Gel 15 Gm Gel..Gram.) 15 gm PO Q15M PRN; Protocol PRN Reason: per Hypoglycemia Standing Ord. Dextrose (D10) 250 mls @ 750 mls/hr IV Q15M PRN; Protocol PRN Reason: per Hypoglycemia Standing Ord. Levofloxacin (Levaquin) 500 mg in 100 mls @ 100 mls/hr IV Q24H [facility] Last Infusion: 04/20/24 10:37 Dose: Infused Insulin Human Lispro (Insulin Lispro 100 Unit/Ml 3 Ml Vial) 0 unit SUBCUT QIDACHS [facility]; Protocol Last Admin: 04/20/24 11:51 Dose: 2 unit Magnesium Hydroxide (Milk Of Magnesia 30 Ml Oral.Susp) 30 ml PO DAILY PRN PRN Reason: Constipation Melatonin (Melatonin 3 Mg Tablet) 6 mg PO BEDTIME PRN PRN Reason: Insomnia Ondansetron HCl (Ondansetron Hcl 4 Mg/2 Ml Vial) 4 mg IVPUSH Q8H PRN PRN Reason: Nausea and Vomiting Sodium Chloride (0.9 % Sodium Chloride Flush 3 Ml Syringe) 3 ml IVFLUSH QSHIFT [facility] Last Admin: 04/20/24 07:52 Dose: 3 ml Tamsulosin HCl (Tamsulosin Hcl 0.4 Mg Capsule) 0.4 mg PO DAILY [facility] Last Admin: 04/20/24 10:55 Dose: 0.4 mg Home Medications ?Medication ?Instructions ?Recorded ?Confirmed ?Last Taken ?Type acetaminophen 500 mg tablet 1,000 mg PO Q6H PRN Pain 11/16/23 04/20/24 Unknown History Physical Exam Vital Signs: Vital Signs: Last Vital Signs Temp 98.5 F 04/20/24 11:09 Pulse 78 04/20/24 11:09 Resp 14 04/20/24 11:09 BP 111/62 04/20/24 11:09 Pulse Ox 98 04/20/24 11:09 O2 Del Method Room Air 04/20/24 11:09 BMI result Body Mass Index 21.7 Results Labs 04/20/24 07:12 04/20/24 07:12 Labs: Abnormal lab results 04/19/24 04/19/24 04/19/24 Range/Units 20:00 20:06 21:52 WBC 12.8 H (4.8-10.8) X10*3/uL RBC 3.49 L (4.60-5.80) X10*6/uL Hgb 11.0 L (14.0-18.0) g/dl Hct 32.9 L (42.0-52.0) % Immature Gran % (Auto) 0.8 H (0.0-0.4) % Neut % (Auto) 77.5 H (45-73) % Lymph % (Auto) 11.8 L (20-40) % Abs Immat Gran (auto) 0.10 H (0.00-0.03) X10*3/uL Absolute Neuts (auto) 9.9 H (2.0-8.3) x10*3/uL Sodium 134 L (135-145) mmol/L Carbon Dioxide 21 L (22-29) mmol/L BUN 31 H (9-16) mg/dL Creatinine 1.43 H (0.5-1.4) mg/dL POC Glucose (60-115) mg/dL Random Glucose 172 H (60-115) mg/dL Lactic Acid 2.6 H* (0.5-2.0) mmol/L Total Protein 8.1 H (6.5-8.0) g/dL Urine Color Dickens A Urine Protein 100 (2+) H (Neg-Trace) mg/dL Urine Glucose (UA) 250 H (Negative) mg/dL Urine Blood Large (3+) H (Negative) Urine Nitrite Positive H (Negative) Ur Leukocyte Esterase Large (3+) H (Negative) Urine RBC >20 H (0-2) /HPF Urine WBC >50 H (0-5) /HPF 04/20/24 04/20/24 04/20/24 Range/Units 02:35 07:12 07:26 WBC (4.8-10.8) X10*3/uL RBC 3.12 L (4.60-5.80) X10*6/uL Hgb 9.9 L (14.0-18.0) g/dl Hct 29.3 L (42.0-52.0) % Immature Gran % (Auto) 0.6 H (0.0-0.4) % Neut % (Auto) 74.7 H (45-73) % Lymph % (Auto) 13.2 L (20-40) % Abs Immat Gran (auto) 0.06 H (0.00-0.03) X10*3/uL Absolute Neuts (auto) (2.0-8.3) x10*3/uL Sodium 133 L (135-145) mmol/L Carbon Dioxide (22-29) mmol/L BUN 28 H (9-16) mg/dL Creatinine (0.5-1.4) mg/dL POC Glucose 150 H 176 H (60-115) mg/dL Random Glucose 171 H (60-115) mg/dL Lactic Acid (0.5-2.0) mmol/L Total Protein (6.5-8.0) g/dL Urine Color Urine Protein (Neg-Trace) mg/dL Urine Glucose (UA) (Negative) mg/dL Urine Blood (Negative) Urine Nitrite (Negative) Ur Leukocyte Esterase (Negative) Urine RBC (0-2) /HPF Urine WBC (0-5) /HPF 04/20/24 Range/Units 11:13 WBC (4.8-10.8) X10*3/uL RBC (4.60-5.80) X10*6/uL Hgb (14.0-18.0) g/dl Hct (42.0-52.0) % Immature Gran % (Auto) (0.0-0.4) % Neut % (Auto) (45-73) % Lymph % (Auto) (20-40) % Abs Immat Gran (auto) (0.00-0.03) X10*3/uL Absolute Neuts (auto) (2.0-8.3) x10*3/uL Sodium (135-145) mmol/L Carbon Dioxide (22-29) mmol/L BUN (9-16) mg/dL Creatinine (0.5-1.4) mg/dL POC Glucose 193 H (60-115) mg/dL Random Glucose (60-115) mg/dL Lactic Acid (0.5-2.0) mmol/L Total Protein (6.5-8.0) g/dL Urine Color Urine Protein (Neg-Trace) mg/dL Urine Glucose (UA) (Negative) mg/dL Urine Blood (Negative) Urine Nitrite (Negative) Ur Leukocyte Esterase (Negative) Urine RBC (0-2) /HPF Urine WBC (0-5) /HPF Short CBC 04/19/24 04/20/24 Range/Units 20:06 07:12 WBC 12.8 H 9.7 (4.8-10.8) X10*3/uL Hgb 11.0 L 9.9 L (14.0-18.0) g/dl Hct 32.9 L 29.3 L (42.0-52.0) % Plt Count 295 258 (160-400) X10*3/uL BMP 04/19/24 04/20/24 20:06 07:12 Sodium 134 L 133 L Potassium 4.9 4.1 Chloride 100 102 Carbon Dioxide 21 L 23 BUN 31 H 28 H Creatinine 1.43 H 1.19 Calcium 9.4 8.5 D Liver Function 04/19/24 Range/Units 20:06 Total Bilirubin 0.4 (0.0-1.0) mg/dL AST 25 (5-37) U/L ALT 11 (0-40) U/L Alkaline Phosphatase 88 (39-117) U/L Albumin 4.0 (3.5-5.0) g/dL Urine 04/19/24 Range/Units 20:00 Urine Color Dickens A Urine Appearance Turbid Urine pH 5.0 (5.0-9.0) Ur Specific [place] 1.020 (1.005-1.025) Urine Protein 100 (2+) H (Neg-Trace) mg/dL Urine Glucose (UA) 250 H (Negative) mg/dL All other labs normal. Assessment and Plan (1) Hematuria: Status: Acute (2) Urinary tract infection associated with cystostomy catheter: Status: Acute Plan Hematuria. Pt on eliquis, has SP tube being treated for UTI, hematuria is resolving Procedures Date of Service Date of Service: 04/20/24
[2024-04-20 16:31] LABS: Glucose, Whole Blood 157 mg/dL (60-115)
[2024-04-20 21:03] LABS: Glucose, Whole Blood 145 mg/dL (60-115)
[2024-04-20] MEDS: Melatonin 3 MG TABLET 6 MG PO (22:04)
[2024-04-20] MEDS: Atorvastatin Calcium 40 MG TABLET PO (22:05)
[2024-04-21 03:15] VITALS: BP 113/63; PULSE 85; RESP 16; TEMP 36.9; O2SAT 99
[2024-04-21 06:44] LABS: Hematocrit 29.3 % (42.0-52.0); Hemoglobin 9.9 g/dl (14.0-18.0); Mean Corpuscular HGB Conc 33.8 g/dl (31.0-36.0); Mean Corpuscular Hemoglobin 31.3 pg (27.0-33.0); Mean Corpuscular Volume 92.7 fL (80.0-98.0); Mean Platelet Volume 9.8 fL (9.4-12.4); Platelet Count 282 X10*3/uL (160-400); Red Blood Count 3.16 X10*6/uL (4.60-5.80); Red Cell Distribution Width 13.9 % (11.0-16.0); White Blood Count 9.8 X10*3/uL (4.8-10.8)
[2024-04-21 06:53] LABS: Anion Gap 13 (12-20); Blood Urea Nitrogen 26 mg/dL (9-16); Carbon Dioxide 23 mmol/L (22-29); Chloride 103 mmol/L (96-108); Creatinine Clr Calc Pharmacy 41.7; Estimated Glomerular Filt Rate 53; Glucose Random 154 mg/dL (60-115); Potassium 4.3 mmol/L (3.3-5.1); Sodium 135 mmol/L (135-145)
[2024-04-21 07:10] LABS: Glucose, Whole Blood 152 mg/dL (60-115)
[2024-04-21 07:27] VITALS: BP 93/54; PULSE 82; RESP 18; TEMP 36.6; O2SAT 96
[2024-04-21] MEDS: 0.9 % Sodium Chloride Flush 3 ML SYRINGE IVFLUSH (08:36)
[2024-04-21] MEDS: Finasteride 5 MG TABLET PO (08:36)
[2024-04-21] MEDS: Tamsulosin HCL 0.4 MG CAPSULE PO (08:36)
[2024-04-21] MEDS: levoFLOXacin/D5W 500 MG/100 ML PIGGYBACK 100 MG IV (08:36)
[2024-04-21] MEDS: Insulin Lispro 100 UNIT/ML 3 ML VIAL SUBCUT ×2 (08:36→11:44)
[2024-04-21] MEDS: Amiodarone HCL 200 MG TABLET PO (08:36)
--- NOTE | 2024-04-21 09:55 | PM.DS ---
DS: Providers Provider Date of Service: 04/21/24 Date of admission: 04/20/24 01:51 Date of discharge: 04/21/24 Primary care physician: Dimitri Wilson MD Consults: 04/20/24 02:23 Consult to Urology Routine Consulting Provider: [facility] Reason for consultation: hematuria DS: Diagnosis Discharge Diagnosis (1) Hematuria: Status: Acute (2) Urinary tract infection associated with cystostomy catheter: Status: Acute DS: Summary Hospital Course Hospital Course: From the admission H&P: This is a 88-year-old male with pertinent history of paroxysmal atrial fibrillation on anticoagulation, congestive heart failure with reduced ejection fraction, ischemic cardiomyopathy with total LAD occlusion, [id number]-[id number] type 2 diabetes mellitus, hypertension, mixed hyperlipidemia, urinary retention with suprapubic catheter, alcohol use disorder, BPH who presents to the emergency department for evaluation of hematuria. Patient states he has been having hematuria for a week now. Also has associated lower abdominal discomfort which is intermittent, progressive, nonradiating and without any relieving factors. Endorses associated nausea and nonbloody emesis. Patient completed oral antibiotics but states abdominal discomfort and hematuria persists. No documented fever. No chest pain, palpitations, shortness of breath, changes in bowel habits. In the emergency department, patient was found to be septic and urine concerning for UTI. Hospital Course: Patient presented to the hospital for hematuria and was found to have sepsis due to urinary tract infection. He also had mild stage I acute kidney injury. The patient was treated with IV fluids and IV antibiotics. His urine cultures are growing E coli sensitive to cephalosporins. His hematuria was self-limited and has now resolved. Urology was consulted and in agreement with treating his underlying infection. His blood cultures are pending, however the patient is eager for discharge home and since he has improved we will send him home with VNA services. Patient's diuretics were held during the hospitalization and can be resumed on 04/25/2024. His Eliquis was also held and can also be resumed upon discharge. Final discharge diagnoses 1. Sepsis due to catheter associated urinary tract infection 2. Hematuria 3. Acute kidney injury, stage I 4. Chronic heart failure 5. BPH 6. Diabetes 7. Paroxysmal AFib Time Attestation Discharge Coordination Time (in mins): 45 Quality: Safe Use of Opioids Does Pt have an Active Cancer Diagnosis on the Problem List?: No Quality: Stroke Does the patient have a stroke diagnosis?: No Physical Exam Vital Signs: Vital Signs: Last Vital Signs Temp 97.9 F 04/21/24 07:27 Pulse 82 04/21/24 07:27 Resp 18 04/21/24 07:27 BP 93/54 L 04/21/24 07:27 Pulse Ox 96 04/21/24 07:27 O2 Del Method Room Air 04/21/24 07:27 BMI result Body Mass Index 21.7 DS: Data Data Completed and Pending Labs on day of discharge: Laboratory Results - last 24 hr 04/20/24 04/20/24 04/20/24 11:13 16:28 20:59 WBC RBC Hgb Hct MCV MCH MCHC RDW Plt Count MPV Absolute Nucleated RBC Nucleated RBC % (auto) Sodium Potassium Chloride Carbon Dioxide Anion Gap BUN Creatinine Estim Creat Clear Calc Estimated GFR POC Glucose 193 H 157 H 145 H Random Glucose Calcium 04/21/24 04/21/24 06:03 07:02 WBC 9.8 RBC 3.16 L Hgb 9.9 L Hct 29.3 L MCV 92.7 MCH 31.3 MCHC 33.8 RDW 13.9 Plt Count 282 MPV 9.8 Absolute Nucleated RBC 0.000 Nucleated RBC % (auto) 0.0 Sodium 135 Potassium 4.3 Chloride 103 Carbon Dioxide 23 Anion Gap 13 BUN 26 H Creatinine 1.28 Estim Creat Clear Calc 41.7 Estimated GFR 53 POC Glucose 152 H Random Glucose 154 H Calcium 9.0 Preliminary micro results at discharge 04/19/24 21:52 Blood Culture - Preliminary Blood - Venous No growth after 24 hours. 04/19/24 21:52 Blood Culture - Preliminary Blood - Venous No growth after 24 hours. Discharge Plan Discharge Anticipated Discharge Date/Time: 04/21/24 09:49 Patient Disposition: Home Health Service Discharge Diagnosis: Hematuria, UTI Referrals: Dimitri Wilson MD [Primary Care Provider] - 1 Week Discharge Medications: New cefuroxime axetil 500 mg tablet 500 mg PO Q12H Qty: 14 0RF Continued (DME) blood-glucose meter [Accu-Chek Guide Glucose Meter] Misc See Rx Instructions .Route Qty: 1 0RF Rx Instructions: As directed (DME) blood-glucose meter [FreeStyle Lite Meter] Kit See Rx Instructions .ROUTE .COMPLEX Qty: 1 0RF Dose Instruction: USE DIRECTED Rx Instructions: USE DIRECTED amiodarone 200 mg tablet 200 mg PO DAILY 90 Days Qty: 90 3RF Eliquis 5 mg tablet 5 mg PO BID Qty: 180 3RF Rx Instructions: Coumadin needs to be stopped 2 days before starting Eliquis. DX Afib (DME) FreeStyle Lite Strips Strip See Rx Instructions .Route Qty: 100 8RF Rx Instructions: to check blood sugars once a day metformin 500 mg tablet 1,000 mg PO BID 30 Days Qty: 120 4RF atorvastatin 40 mg tablet 40 mg PO BEDTIME Qty: 90 3RF finasteride 5 mg tablet 5 mg PO DAILY 90 Days Qty: 90 1RF tamsulosin 0.4 mg capsule 0.4 mg PO DAILY 90 Days Qty: 90 0RF solifenacin [Vesicare] 5 mg tablet 5 mg PO DAILY 30 Days Qty: 30 1RF acetaminophen 500 mg Tablet 1,000 mg PO Q6H PRN (Reason: Pain) Held spironolactone 25 mg tablet 25 mg PO DAILY Qty: 90 1RF Hold Instructions: Resume on 04/25/24. Protocol: Hold for SBP< HOLD for SBP < : 90 furosemide 20 mg tablet 20 mg PO DAILY PRN (Reason: >90 SBP) Qty: 90 3RF Hold Instructions: Resume on 04/25/24. Discharge Orders: Discharge Order (Routine); Ordered 04/21/24 Ordered By: Jomar Steel Diet: Advance to usual diet Activity on Discharge: As tolerated Stand Alone Forms: Patient Portal Discharge page Print Language: Estonian Care Plan Goals: Finish 1 week of antibiotics Health Concerns: Urinary tract infection and hematuria Plan of Treatment: Finish antibiotics and continue routine care for suprapubic catheter Hold your furosemide and spironolactone (water pills) until 04/25/2024 Assessment: See discharge summary
--- NOTE | 2024-04-21 09:58 | P.CDIM_ITS ---
PROVIDER RESPONSE TEXT: To clarify, the appropriate diagnosis supported by the clinical indicators: Yes, UTI is related to / associated with / due to cystostomy catheter QUERY TEXT: PHYSICIAN'S DOCUMENTATION REQUEST Date of Query: 04/21/2024 07:50 AM EST Patient Name: Jeet Mena Admit Date: 04/20/2024 Dear Jomar Steel MD, A review of the medical record indicates additional documentation may be needed. Please review below and update the documentation accordingly. Documentation includes the conditions of UTI and cystostomy catheter. Clinical Indicators: IV Levaquin Q 24H Per Urology Consultation 04/20/24: has SP tube being treated for UTI, hematuria is resolving Please clarify the relationship between these conditions: Yes, UTI is related to / associated with / due to cystostomy catheter No, UTI is not related to / associated with / due to cystostomy catheter Other (explain) Clinically unable to determine (explain) Thank you, Libertad Del Cid RN Use of terms such as suspected, likely, concern for, or probable (associated with a specific diagnosi s that is being evaluated, monitored, or treated as if it exists) are acceptable and can be coded in the inpatient se tting, when documented at the time of discharge. Please use your independent medical judgment in providing your response. THIS QUERY IS PART OF THE PERMANENT MEDICAL RECORD
--- NOTE | 2024-04-21 10:24 | MHC.CM.PN ---
Pt has been medically cleared for DC, he will go home via private transport and resume his home care services from [facility].
[2024-04-21 10:57] LABS: Glucose, Whole Blood 213 mg/dL (60-115)
[2024-04-21 10:59] VITALS: BP 106/59; PULSE 68; RESP 20; TEMP 36.6; O2SAT 98
== END 2024-04-21 13:10 | disposition home health service (06) | DRG 698 ==
LOC: HO.ED 21:24 → HO.EDOVER 04-20 01:55 → HO.IMC 04-20 03:43
PROVIDERS: Physician Assistant Medical; Admitting Provider Student in an Organized Health Care Education/Training Program; Emergency Provider Emergency Medicine; PCP Internal Medicine; Visit Provider Family Medicine
DX: T83.510A Infection and inflammatory reaction due to cystostomy catheter, initial encounter (principal); A41.9 Sepsis, unspecified organism; I50.22 Chronic systolic (congestive) heart failure; N17.9 Acute kidney failure, unspecified; I25.10 Atherosclerotic heart disease of native coronary artery without angina pectoris; B96.20 Unspecified Escherichia coli [E. coli] as the cause of diseases classified elsewhere; E86.0 Dehydration; I48.0 Paroxysmal atrial fibrillation; I11.0 Hypertensive heart disease with heart failure; Y73.8 Miscellaneous gastroenterology and urology devices associated with adverse incidents, not elsewhere classified; R31.9 Hematuria, unspecified; E78.2 Mixed hyperlipidemia; N40.0 Benign prostatic hyperplasia without lower urinary tract symptoms; I25.5 Ischemic cardiomyopathy; E11.9 Type 2 diabetes mellitus without complications; Z20.822 Contact with and (suspected) exposure to COVID-19; Z87.891 Personal history of nicotine dependence; Z87.440 Personal history of urinary (tract) infections; Z79.01 Long term (current) use of anticoagulants; Z79.84 Long term (current) use of oral hypoglycemic drugs; Z79.899 Other long term (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
CPT/HCPCS: 0241U; 36415; 74176; 80048; 80053; 81001; 82947; 83605; 83735; 84484; 85025; 85027; 87040; 87086; 87088; 87186; 93005; 99285; J0696; J1956

== ENCOUNTER → 2024-04-19 17:25 | Outpatient (BNV) | payer MEDICARE, OTHER, SELFPAY | PROVIDERS: Admitting Provider Student in an Organized Health Care Education/Training Program; Emergency Provider Emergency Medicine; PCP Internal Medicine; Visit Provider Internal Medicine Cardiovascular Disease | DX: R94.31 Abnormal electrocardiogram [ECG] [EKG] (principal) | CPT/HCPCS: 93010 ==

== ENCOUNTER → 2024-04-20 00:04 | Outpatient (BNV) | payer MEDICARE, OTHER, SELFPAY | PROVIDERS: Admitting Provider Student in an Organized Health Care Education/Training Program; Emergency Provider Emergency Medicine; PCP Internal Medicine; Visit Provider Radiology Diagnostic Radiology | DX: R10.9 Unspecified abdominal pain (principal); R31.9 Hematuria, unspecified | CPT/HCPCS: 74176 ==

== ENCOUNTER → 2024-04-20 01:51 | Outpatient (BNV) | payer MEDICARE, OTHER, SELFPAY | PROVIDERS: Admitting Provider Student in an Organized Health Care Education/Training Program; Emergency Provider Emergency Medicine; PCP Internal Medicine; Visit Provider Student in an Organized Health Care Education/Training Program | DX: A41.9 Sepsis, unspecified organism (principal); T83.510A Infection and inflammatory reaction due to cystostomy catheter, initial encounter; N39.0 Urinary tract infection, site not specified; R31.9 Hematuria, unspecified | CPT/HCPCS: 99223; 99499 ==

== ENCOUNTER → 2024-04-20 01:51 | Outpatient (BNV) | payer MEDICARE, OTHER, SELFPAY | PROVIDERS: Admitting Provider Student in an Organized Health Care Education/Training Program; Emergency Provider Emergency Medicine; PCP Internal Medicine; Visit Provider Urology | DX: R31.9 Hematuria, unspecified (principal); T83.510A Infection and inflammatory reaction due to cystostomy catheter, initial encounter; N39.0 Urinary tract infection, site not specified | CPT/HCPCS: 99222 ==

== ENCOUNTER 2024-04-24 08:30 | Outpatient (REF) | payer MEDICARE, OTHER, SELFPAY ==
--- OUTSIDE RECORDS SUMMARY | 2024-04-24 08:42 | XMS_ITS ---
Author Name [facility] Organization [facility] Address [address] [place] [id number] Care Team Providers Care Fashion Merchandiser Name Role Phone ARDEN TRENT Primary Care [...] PART A Apr 22, 2001 PART A [id number] JENIFER MENA PATIENT MEDICARE (WNR) MEDICARE (M) PART B Apr 22, 2001 PART B [id number] JENIFER MENA PATIENT [employer] PLAN F May 11, 2008 PLANF [id number] JENIFER MENA PATIENT Selected Encounter This section includes the information on record at [place] for the Encounter. Date/Time Encounter Type Encounter Description Reason Provider Source Mar 13, 2024 12:30 PM HHC RN E&M PLAN SVS, 15 MIN [facility] Nursing (RN / LP) ICD-10-CM I50.9 Heart failure, unspecified ALBERTO DENNISON Encounter Template Text not used by [place] Assessments - Encounter Diagnoses This section includes the primary and secondary diagnoses documented for the Encounter. Date/Time Primary/Secondary Diagnosis Diagnosis Name Provider Source Mar 13, 2024 08:22 PM PRIMARY Heart failure, unspecified MILTON DENNISONELA [facility] Plan of Treatment: Future Appointments (+ 6 months) and Future Tests (+/- 45 days) The Plan of Treatment section includes future care activities for the patient from all [place] treatmentfacilities. This section includes future appointments and [...] of theEncounter. The data comes from all [place] treatment facilities. Test Date/Time Test Type Test Details Facility Name Jan 31, 2024 01:42 PM Consult Order [facility] NON-SKILLED HOME HEALTH AIDE Cons Individual Pension Adviser's Choice [facility] Feb 05, 2024 12:00 AM Laboratory - Chemistry Order CREATININE (eGFR 2020) BLOOD (SST-SERUM) [facility] Feb 05, 2024 12:00 AM Laboratory - Chemistry Order LIVER FUNCTION BLOOD (SST-SERUM) [facility] Feb 05, 2024 12:00 AM Laboratory - Chemistry Order CBC BLOOD (LAV-BLOOD) [facility] Feb 05, 2024 12:00 AM Laboratory - Chemistry Order PT & INR (COUMADIN) BLOOD (BLUE-PLASMA) [facility] Apr 03, 2024 02:43 PM Consult Order [facility] NUTRI TION SPOPC OUTPT Cons Individual Pension Adviser's [facility] Encounter Notes: All associated encounter notes This section contains the clinical notes associated to the Encounter. Date/Time Encounter Note(s) Provider Source Apr 23, 2024 09:44 AM PRIMARY CARE NOTE: LOCAL TITLE: SENT FAX/MAIL STANDARD TITLE: PRIMARY CARE NOTE DATE OF NOTE: APR 23, 2024@09:44 ENTRY DATE: APR 23, 2024@09:44:40 AUTHOR: MARGO JUNG COSIGNER: URGENCY: STATUS: COMPLETED FAX/MAIL SENT Receipt Facilitys Name: [facility] POC Name: Liz Jung NP Fax sent on: Apr Fax Number Used(If Applicable):[phone] Mailing Address Used (If Applicable): Desc. Of Records Released (Include dates of records):Please send recent hospital dc summary for Jenifer Mena 37 /michell/ LIZ JUNG RN,MSN,IMPORT CLERK-C [facility] NURSE PRACTITIONER Signed: 04/23/2024 09:46 [facility] Apr 20, 2024 03:48 PM [facility] NOTE: LOCAL TITLE: [facility] HOSPITAL NOTIFICATION STANDARD TITLE: [facility] NOTE DATE OF NOTE: APR 20, 2024@15:48 ENTRY DATE: APR 20, 2024@15:48:08 AUTHOR: MARGO JUNG EXP COSIGNER: URGENCY: STATUS: COMPLETED access tech: Mini Muro Provider: Liz Jung Reason for Admission: UTI Facility Admitted to: [facility] Date of Admission: Mar Date of Discharge: Covid-19 Testing Performed: Current Status of Patient: Home /es/ LIZ JUNG RN,MSN,IMPORT CLERK-C [facility] NURSE PRACTITIONER Signed: 04/20/2024 15:48 Receipt Acknowledged By: 04/20/2024 16:03 /es/ ALBERTO DENNISON RN [facility] pet sitting for MINI MURO 04/20/2024 16:03 /es/ WOODY PHIPPS [facility] REGRINDER OPERATOR 04/21/2024 14:59 /es/ Laura BARBER,RN,[facility] TRANSFER/TRAVELING COORDINATOR CORY JUNG [facility] Mar 13, 2024 12:30 PM [facility] NOTE: LOCAL TITLE: [facility] IN-HOME SCREENING STANDARD TITLE: [facility] NOTE DATE OF NOTE: MAR 13, 2024@12:30 ENTRY DATE: MAR 13, 2024@20:23:18 AUTHOR: MATEUS DENNISON EXP COSIGNER: URGENCY: STATUS: COMPLETED [facility] In Home Screening for admission: Patient identified by verified name/address with picture ID: Yes AND either/or: Address/contact telephone numbers on CPRS chart verified with Patient/Family/Caregiver: Yes Any special directions getting to or into patients residence: No IN HOME SCREENING: Please check [facility] staff in home for screening: HB RN Please check who was present during visit: Patient, Children Other medical providers: (please list specialists) receives all care at [facility] Cardiology Dr. Smith PCP Dr. Wilson ADVANCED CARE PLANNING: Does patient have a Durable Power of Identifier Horse? Does patient have an Health Care proxy/MOLST? Would patient/family be willing to provide any copies to [facility]? Home Evaluation: Neat: Yes Cluttered: [...] issues in the neighborhood that would affect [facility] staff safety) Patient Evaluation: Homebound: Yes Memory issues: No(optional for SW/ROLLER PICKER to perform cognitive screening) Frequent falls: No Frequent hospitalizations: No Frequent ER visits: Yes Discussion re: [facility] PCP being main primary care provider, willing to have medications prescribed by [facility] PCP patient agrees Yes Does patient manage his medications: No, Who is assisting with medication management? Oanh VNA COUNCIL: No Vision Difficulties: Yes Self-Care deficits(dressing/bathing/i ncontinence):Yes [...] Son Caregiver address: same as Caregiver telephone #[phone] Other support in home: Community VNAs: Yes(if yes describe what for/estimated length of service) indefinite for suprapubic Cath management Community services(Elder care or PACE type programs): No(if yes, describe why Elder Services are in home, and if PACE type program would not be candidate for [facility]) Home Health Aides: Yes If Yes: VA [...] of team Yes - Frequency of steam flattener visits Yes - Copays, if applicable $15 per visit No - Exempt/Non Exempt medications Yes Additional Notes: Kaela is an 88 year old male, Not [place]. Lives in single family home in [place] with son Christina and grandson Darell who assist him with ADLs and IADLs. 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 Kaela reports his son is his transportation to appointments but he is having a harder time with going out for his appointments. Kaela was given a manual wheelchair to use as needed since he reports some days are harder than other as it relates to mobility. Kaela has [place] VNA going every two weeks for medication management and suprapubic Cath management. In addition kaela received meals on wheels. Kaela gets his medications from [facility] in [place] but would like to move all medications to [place] pharmacy since he doesn't have copays now. What kaela sees as his major health problem for him is his suprapubic catheter as this a something new he has been dealing with for a few months and he continues to have issues with bleeding and not fully healing. Kaela would benefit from interdisciplinary team, recommendation for admission to [facility]. /michell/ ALBERTO DENNISON RN [facility] pet sitting Signed: 03/13/2024 20:59 CHARLEY DENNISON [place] [facility]
--- OUTSIDE RECORDS SUMMARY | 2024-04-24 08:44 | XMS_ITS ---
Author Name Department [place] Organization [place] Address [address] [place] [address] Care Team Providers Care Regulatory Auditor Name Role Phone ARDEN TRENT Primary Care [...] PART A Apr 22, 2001 PART A [id number] EJNIFER ANAYA PATIENT MEDICARE (WNR) MEDICARE (M) PART B Apr 22, 2001 PART B [id number] JENIFER ANAYA PATIENT [employer] MEDIGAP PLAN F May 11, 2008 PLANF [id number] JENIFER ANAYA PATIENT Selected Encounter This section includes the information on record at [place] for the Encounter. Date/Time Encounter Type Encounter Description Reason Pro vider Source Apr 20, 2024 02:50 PM Outpatient Encounter ADMIN PAT ACTIVTIES (MASNONCT) IHE Encounter Template Text not used by [place] Plan of Treatment: Future Appointments (+ 6 [...] Order [facility]PC NUTRI TION SPOPC OUTPT Cons Celluloid Trimmer's Choice [place] [facility] Encounter Notes: All associated encounter notes This section contains the clinical notes associated to the Encounter. Date/Time Encounter Note(s) Provider Source Apr 20, 2024 02:50 PM HBPC NOTE: LOCAL TITLE: HBPC STRAP BUCKLER MACHINE PROGRESS NOTE STANDARD TITLE: HBPC NOTE DATE OF NOTE: APR 20, 2024@14:50 ENTRY DATE: APR 20, 2024@14:50:09 AUTHOR: MARGO MARTIN COSIGNER: URGENCY: STATUS: COMPLETED was seen for: attempt to admission] HPI: 88 yo M attempted to see for scheduled admission. Patient not home and grandson reports he is at the hospital. Spoke w son Christina whom reports his father had dysuria and that grandson took him to [facility] yesterday around 7pm and that they are keeping him another night. He reports over the past few years he hashad a noted decline. Crhistina reports he is HCP and that his father has not had a recent goals of care discussion. Explained I would attempt to see 1/2 or next week based on status. PMH: Active problems - Computerized Problem List is the source for the followin. Lower urinary tract symptoms due to benign prostatic hypertrophy 2. History of cardiac catheterization 3. Frail elderly 4. Long-term current use of anticoagulant 5. CHF - Congestive Heart Failure ([facility] [id number]) 6. HTN - Hypertension ([facility] [id number]) 7. Hyperlipidemia ([facility] [id number]) 8. Diabetes Mellitus Type 2 ([facility] [id number]) 9. CAD - Coronary Artery Disease ([facility] [id number]) 10. OA - Osteoarthritis ([facility] [id number]) 11. AF - Atrial fibrillation 12. Under care of multiple providers non VA PCP: Dimitri Wilson [phone] Cardiology: Yosef Cuello [phone] Optometry: Randall Blake [phone] Allergies: Patient has answered NKA The following VA and Non-VA meds were reconciled with patient: Active and Recently Outpatient Medications (excluding Supplies): Active Outpatient Medications Status 1) APIXABAN 5MG TAB TAKE ONE TABLET BY MOUTH EVERY 12 HOURS FOR ACTIVE Indication: ATRIAL FIBRILLATION Active Non-VA Medications Status 1) Non-VA ACETAMINOPHEN [...] CAP 0.4MG BY MOUTH ONCE DAILY ACTIVE 11 Total Medications /es/ JUVENTINO MARTIN RN,MSN,PRINTER MAINTAINER-C [facility] NURSE PRACTITIONER Signed: 04/20/2024 15:58 CORY MARTIN CNTRL AME [facility]FF[place]
--- OUTSIDE RECORDS SUMMARY | 2024-04-24 08:44 | XMS_ITS ---
Author Name Department [place] Organization [place] Address [address] [place] [address] Care Team Providers Care Water Tender Name Role Phone ARDEN TRENT Primary [...] PART A Apr 22, 2001 PART A [id number] JENIFER ANAYA PATIENT MEDICARE (WNR) MEDICARE (M) PART B Apr 22, 2001 PART B [id number] JENIFER ANAYA PATIENT [employer] MEDIGAP PLAN F May 11, 2008 PLANF [id number] JENIFER ANAYA PATIENT Selected Encounter This section includes the information on record at [place] for the Encounter. Date/Time Encounter Type Encounter Description Reason Pro vider Source Apr 21, 2024 11:27 AM Outpatient Encounter [facility]PC Nursing (RN / LP) IHE Encounter Template Text not used by [place] Plan of Treatment: Future Appointments (+ 6 months) and Future Tests (+/- 45 days) The Plan of Treatment section includes future care activities for the patient from all [place] treatmentfacilities. This section includes future appointments and [...] of theEncounter. The data comes from all [place] treatment facilities. Test Date/Time Test Type Test Details Facility Name Apr 03, 2024 02:43 PM Consult Order [facility]PC NUTRI TION SPOPC OUTPT Cons Ornamental Ironworking Supervisor's Choice [place] [facility] [place] [facility] Encounter Notes: All associated encounter notes This section contains the clinical notes associated to the Encounter. Date/Time Encounter Note(s) Provider Source Apr 21, 2024 11:27 AM HBPC NOTE: LOCAL TITLE: HBPC POST INFECTION ASSESSMENT NOTE STANDARD TITLE: HBPC NOTE DATE OF NOTE: APR 21, 2024@11:27 ENTRY DATE: APR 21, 2024@11:27:34 AUTHOR: MATEUS DENNISON EXP COSIGNER: URGENCY: STATUS: COMPLETED POST INFECTION ASSESSMENT NOTE Date of Infection: Mar Silk Spreader: Mini Muro RN Type of Infection: UTI Patient Seen in ER: Yes [X] No [ ] Culture Sent: Yes [ ] No [ ] Facility Reporting Culture Results: Abx Prescribed: Yes [ ] No [ ] Name of Antibiotic: Ordering Provider: (Please check all that apply) Risk Factors Possibly Contributing to Infection: [ ] Surgical Procedure [ ] BPH/Urinary Retention [ ] COPD [ ] Vascular Insufficiency/Edema [X] Kellogg Catheter [ ] Suprapubic Catheter [ ] Intermittent Catheterization [ ] Other Was [place] discharged from inpatient status 48-72 hours prior to infection? Yes [ ] No [X] If yes, where: Infection Resolved: Yes [ ] No [X] Current Status of Patient: [ ] Home [X] Hospital (Please check all that apply) Interventions: [ ] F/U Medical Visit [X] PCP Notified [X] PSA Notified [ ] Education was provided to patient and/or family regarding infection/infection control /es/ ALBERTO DENNISON RN HBHAWA family psychologist Signed: 04/21/2024 11:31 Receipt Acknowledged By: 04/21/2024 13:05 /es/ WOODY PHIPPS HBPC REMOTE BROADCAST ENGINEER 04/21/2024 14:41 /es/ BHARATI [employer]GA [employer] INTERNSHIP-C HBPC NURSE PRACTITIONER for CHARLEY CONNER CNTRL TRJatin [facility]
--- OUTSIDE RECORDS SUMMARY | 2024-04-24 08:44 | XMS_ITS | Encounter Summary ---
Author Name Department of [place] Affairs ([place]) Organization [facility] Address [address] [place] [address] Care Team Providers Care Failure Analysis Technician Name Role Phone ARDEN TRENT Primary [...] PART A Apr 22, 2001 PART A [id number] JENIFER ANAYA PATIENT MEDICARE (WNR) MEDICARE (M) PART B Apr 22, 2001 PART B [id number] JENIFER ANAYA PATIENT [employer] MEDIGAP PLAN F May 11, 2008 PLANF [id number] JENIFER ANAYA PATIENT Selected Encounter This section includes the information on record at [place] for the Encounter. Date/Time Encounter Type Encounter Description Reason Pro vider Source IHE Encounter Template Text not used by VA
--- OUTSIDE RECORDS SUMMARY | 2024-04-24 08:44 | XMS_ITS ---
Author Name Department of [place] Organization [place] Address [address] [place] [address] Care Team Providers Care Order Fulfillment Specialist Name Role Phone ARDEN TRENT Primary [...] PART A Apr 22, 2001 PART A [id number] JENIFER ANAYA PATIENT MEDICARE (WNR) MEDICARE (M) PART B Apr 22, 2001 PART B [id number] JENIFER ANAYA PATIENT [employer] MEDIGAP PLAN F May 11, 2008 PLANF [id number] JENIFER ANAYA PATIENT Selected Encounter This section includes the information on record at [place] for the Encounter. Date/Time Encounter Type Encounter Description Reason Pro vider Source Apr 07, 2024 02:33 PM Outpatient Encounter HBPC PHYSIC EXTND(CORPORATE SAFETY COORDINATOR,OUTBOUND TELEMARKETER,[place]) IHE Encounter Template Text not used by [place] Plan of Treatment: Future Appointments (+ 6 months) and Future Tests (+/- 45 days) The Plan of Treatment section includes future care activities for the patient from all [place] treatmentfacilities. This section includes future appointments and [...] of theEncounter. The data comes from all [place] treatment facilities. Test Date/Time Test Type Test Details Facility Name Apr 03, 2024 02:43 PM Consult Order [facility]PC NUTRI TION SPOPC OUTPT Cons Surgical Processor's Choice [place] [facility] Encounter Notes: All associated encounter notes [...] Lim (both live in home), [employer] WHEEL BORER 13hrs/wk Mental Status: A & O X [...] anticoagulant 5. CHF - Congestive Heart Failure ([email or web address] [id number]) 6. HTN - Hypertension ([facility] [[email or web address] [id number]) 7. Hyperlipidemia ([facility] [[email or web address] [id number]) 8. Diabetes Mellitus Type 2 ([email or web address] [id number]) 9. CAD - Coronary Artery Disease ([facility] [[email or web address] [id number]) 10. OA - Osteoarthritis ([facility] [[email or web address] [id number]) 11. AF - Atrial fibrillation 12. Under care of multiple providers non VA PCP: Dimitri Wilson [phone] Cardiology: Yosef Cuello [phone] Optometry: Randall Blake [phone] VA Medications: Active Outpatient Medications (including Supplies): [...] Health Assessment: urinary 'dribbling', BPH Fall Risk: [facility] 10 Fall Risk Assessment Tool Required Core [...] considered at risk for falling. Created by: [facility] Functional Limitations Use of [...] ADDRESED 1. PROBLEM ADDRESSED: Diabetes SPECIFIC GOAL: Odell's blood glucose levels will remain <170 over the next 90 delgado MEASURABLE: Monitor Hgb A1C as ordered to monitor efficacy of treatment INTERVENTIONS: review diabetic diet every nursing visit review glucose monitor log every visit t/a/e s/s hypo and hyperglycemia and when to call [place] vs 911 RELEVANT: Odell will remain from complications associated w/ diabetes [...] t/a/e s/s bleeding and when to call [place] Satya [employer]i Dharma 911 Monitor med regulatory compliance specialist labs as needed RELEVANT: Odell will remain from complications associated w/ blood thinner use which will help him remain stable and remain at home which matters most to him TIME: Smart goals will be assessed at routine visits and every 90 days during IDT. s 3. PROBLEM ADDRESSED: High Risk for Falls SPECIFIC GOAL: What does the Odell want to accomplish? prevent falls in the home MEASURABLE: How are you going to measure progress? Odell will be able to verbalize safety awareness. Odell will be able to report no falls [...] visit RELEVANT: Does it pertain to your Odell's goals for his or her life or health? Does the goal have meaning? Odell will be able to remain indep in his home which is part of what matters for him. TIME: Smart goals will be assessed at routine visits and every 90 days during IDT. This ongoing goal will be assessed at HBPC RN visits and every 90 days at IDT meetings 4. PROBLEM ADDRESSED: Congestive Heart Failure SPECIFIC GOAL: What does the Odell want to accomplish? Remain free from s/s CHF exacerbation MEASURABLE: How are you going to measure progress? will report stable weight and BP each nursing visit INTERVENTIONS: What are the steps needed to achieve the specific goal? Odell will monitor BP daily will monitor weight daily and notify MD for weight gain of 3lbs in 2 days or 5lbs in one week will take medications as prescribed will follow low Na diet RELEVANT: Does it pertain to your Odell's goals for his or her life or health? Does the goal have meaning? will remain free from CHF exacerbation which will help stay out of the hospital TIME: Smart goals will be assessed at routine visits and every 90 days during IDT. This ongoing goal will be assess each [facility] nursing visit and at every 90 day IDT meeting 5. PROBLEM ADDRESSED: Suprapubic catheter SPECIFIC GOAL: Odell will remain free from complications associated w/ [...] any concerns or questions regarding SPT RELEVANT: Odell will remain from complications associated w/ diabetes [...] will recognize changes that require reporting to [facility] staff patient will do accuchecks and follow diabetic diet patient will demonstrate correct use of adaptive equipment patient will be safe in home with environment adjusted to accommodate decrease in cognition and/or increase in disease progression Involvement of additional [facility] team members: N.P. assess and attach specific plan SW assess and attach specific plan RD assess and attach specific plan O.T. assess and attach specific plan request pharmacy review of medications Discharge Plan when able to remain in community safely with assistance of services and or family Per [facility] Discharge Policy Comments: Mr Hina Anaya is a [employer] who lives in a single family home w/ his son and his grandson. Odell is A&Ox3, able to provide medical history [...] acute on chronic CHF exacerbation and AFIB. Odell is NIDDM as well. Currently is receiving [place] [facility] services every 2 weeks for care of SPT w/ changes monthly, medication prefills and general assess. Gson is UPPER CUTTER through [facility] 13hrs/wk (internal communications writer submitted Case Mix tool for request to increase WHEEL BORER hours although request was denied). Medications filled through [facility] in [place] although would like to transition meds to [facility] as appropriate. Medical records from recent admission to [facility] in [place]; Dr Cuello, cardiology and Dr Lea, urology [...] pink hypergranulation tissue noted at site edges; BATCH HEAT TREAT OPERATOR. Plan for adjunct faculty for medical terminology HBPC assistance due to advanced age, homebound status and multiple chronic medical issues. /es/ LISA VIVAS RN, BSN HBPC CUT OFF SAWYER Signed: 04/09/2024 15:02 Receipt Acknowledged By: 04/09/2024 15:06 /es/ LISA VIVAS RN, BSN HBPC CUT OFF SAWYER for ALBERTO CASTILLOJulienNAGI 04/09/2024 16:34 /es/ Bambi Ritter, MSN, CORPORATE SAFETY COORDINATOR HBPC Senior Engineering Associate 04/09/2024 16:12 /es/ MIRI SAGE HB Clinical Pharmacist Practitioner 04/10/2024 08:30 /es/ Sabrina MONAHANN HBPC network desktop support specialist 04/09/2024 16:16 /es/ JUVENTINO MARTIN RN,MSN,SOLUTIONS OPERATOR-C HBPC NURSE PRACTITIONER 04/20/2024 09:33 /es/ SAMMIE CARDONA RD, LDN REGISTERED DIETITIAN 04/10/2024 15:27 /es/ Monica Fairchild RN HBPC network desktop support specialist 04/10/2024 09:55 /es/ GLENN FOWLER, NOEL HB Nurse Practitioner 04/09/2024 15:28 /es/ SHELLEY [facility]ERT [facility] HBPC Career Center Advisor 04/09/2024 15:33 /es/ Mildred Ewing HB Occupational Therapist 04/13/2024 07:47 /es/ DIANE SANTOS STAFF DIETITIAN 04/09/2024 16:31 /es/ Filomena Jeffries RN BSN [facility]PC CUT OFF SAWYER 04/10/2024 08:51 /es/ ALAN Mullen MD 04/09/2024 ADDENDUM STATUS: COMPLETED Initial assessment to be conducted within 30 days of admission to HBPC program. /es/ DIEGO BROWN [facility] Career Center Advisor Signed: 04/09/2024 15:30 04/09/2024 ADDENDUM STATUS: COMPLETED New [facility] admission. Will complete OT assessment and initial home safety evaluation to identify rehab and equipment needs. Once initial rehab needs are addressed, [facility] Rehab will follow up with Odell at least annually and as need arises for change in function. /es/ Mildred Ewing [facility] Occupational Therapist Signed: 04/09/2024 15:33 04/09/2024 ADDENDUM STATUS: COMPLETED Medication regimen was reviewed within 30 days of admission. Please see the 04/06/24 [facility] Pharmacy Medication Review note. /es/ MIRI SAGE [facility] Clinical Pharmacist Practitioner Signed: 04/09/2024 16:13 04/09/2024 ADDENDUM STATUS: COMPLETED To admit w/in 30 days /es/ JUVENTINO MARTIN RN,MSN,SOLUTIONS OPERATOR-C [facility] NURSE PRACTITIONER Signed: 04/09/2024 16:17 LISA VIVAS [place] CNTRL [facility]
--- OUTSIDE RECORDS SUMMARY | 2024-04-24 08:44 | XMS_ITS ---
Author Name Department [place] Organization [place] Address [address] [place] [address] Care Team Providers Care Automatic Dispenser Mechanic Name Role Phone ARDEN TRENT Primary Care [...] PART A Apr 22, 2001 PART A [id number] JENIFER ANAYA PATIENT MEDICARE (WNR) MEDICARE (M) PART B Apr 22, 2001 PART B [id number] JENIFER ANAYA PATIENT [employer] MEDIGAP PLAN F May 11, 2008 PLANF [id number] JENIFER ANAYA PATIENT Selected Encounter This section includes the information on record at [place] for the Encounter. Date/Time Encounter Type Encounter Description Reason Pro vider Source Apr 23, 2024 10:22 AM Outpatient Encounter TELEPHONE [facility] IHE Encounter Template Text not used by [...] of theEncounter. The data comes from all [place] treatment facilities. Test Date/Time Test Type Test Details Facility Name Apr 03, 2024 02:43 PM Consult Order [facility] NUTRI TION SPOPC OUTPT Cons Firer Locomotive's Choice [place] CNTRL WSN [facility]
--- OUTSIDE RECORDS SUMMARY | 2024-04-24 08:44 | XMS_ITS | Encounter Summary ---
Author Name Department of [place] Organization [place] Address [address] [place] [address] Care Team Providers Care Donor Services Team Leader Name Role Phone ARDEN TRENT Primary [...] PART A Apr 22, 2001 PART A [id number] JENIFER ANAYA PATIENT MEDICARE (WNR) MEDICARE (M) PART B Apr 22, 2001 PART B [id number] JENIFER ANAYA PATIENT [employer] MEDIGAP PLAN F May 11, 2008 PLANF [id number] JENIFER ANAYA PATIENT Selected Encounter This section includes the information on record at [place] for the Encounter. Date/Time Encounter Type Encounter Description Reason Pro vider Source Apr 23, 2024 12:18 PM Outpatient Encounter ADMIN PAT ACTIVTIES (MASNONCT) [...] Order [facility]PC NUTRI TION SPOPC OUTPT Cons Municipal Services Manager's Choice [place] [facility] [place] [facility] Encounter Notes: All associated encounter notes This section contains the clinical notes associated to the Encounter. Date/Time Encounter Note(s) Provider Source Apr 23, 2024 12:18 PM ADMINISTRATIVE NOT E: LOCAL TITLE: CCC: SCHEDULING ADMINISTRATION STANDARD TITLE: ADMINISTRATIVE NOTE DATE OF NOTE: APR 23, 2024@12:18:12 ENTRY DATE: APR 23, 2024@12:18:12 AUTHOR: RICHARDSON ESPINOZA COSIGNER: URGENCY: STATUS: COMPLETED CCC: SCHEDULING ADMINISTRATION Has ADDENDA Patient Demographics Patient Name: JENIFER ANAYA Patient Primary Phone: [phone] Patient Primary [address]: [address] [place] [address] Patient : 1935 Patient Age: 88 Current Location: [facility] Call Back Number: [phone] Caller/Recipient Relation to Patient: Caregiver Caller Name: Jes FERNÁNDEZ Administrative Administrative Note Reason: Home Health / Skilled Nursing Administrative Note Comments: Jes poultry farmworker of [facility] requesting a call back from RN regarding coordinating services as is getting confused. Jes can be reached at [phone] IMPORTANT: This note was created by [facility] Clinical Contact Center staff. Please do not alert the staff member by adding them as a signer for future communications. Alerts are not monitored by this user. /michell/ RICHARDSON ESPINOZA MSA Signed: 04/23/2024 12:18 Receipt Acknowledged By: 04/23/2024 17:15 /es/ Monica Fairchild RN HBPC linen manager for LISA SANTANAPat 04/23/2024 ADDENDUM STATUS: COMPLETED Message left for Oanh BARBER sr. social media & mobile manager. Awaiting call back. /michell/ Monica ROGERSPC linen manager Signed: 04/23/2024 17:12 RICHARDSON ESPINOZA CNTRL [facility]
[2024-04-24 08:48] LABS: MANUAL DIFF FLAG NO
[2024-04-24 09:08] LABS: Basophils Absolute Auto 0.1 X10*3/uL (0.0-0.2); Basophils Percent Auto 0.5 % (0-2); Eosinophils Absolute Auto 0.3 X10*3/uL (0.0-0.4); Eosinophils Percent Auto 2.4 % (0-4); Hematocrit 32.9 % (42.0-52.0); Hemoglobin 10.8 g/dl (14.0-18.0); Imm Gran Abs Auto 0.09 X10*3/uL (0.00-0.03); Imm Gran Pct Auto 0.8 % (0.0-0.4); Lymphocytes Absolute Auto 1.5 X10*3/uL (1.2-4.9); Lymphocytes Percent Auto 12.7 % (20-40); Mean Corpuscular HGB Conc 32.8 g/dl (31.0-36.0); Mean Corpuscular Hemoglobin 31.5 pg (27.0-33.0); Mean Corpuscular Volume 95.9 fL (80.0-98.0); Mean Platelet Volume 9.5 fL (9.4-12.4); Monocytes Absolute Auto 0.8 X10*3/uL (0.1-1.2); Monocytes Percent Auto 6.5 % (2-11); Neutrophils Absolute Auto 9.1 x10*3/uL (2.0-8.3); Neutrophils Percent Auto 77.1 % (45-73); Platelet Count 374 X10*3/uL (160-400); Red Blood Count 3.43 X10*6/uL (4.60-5.80); Red Cell Distribution Width 13.8 % (11.0-16.0); White Blood Count 11.8 X10*3/uL (4.8-10.8)
[2024-04-24 09:20] LABS: Estimated Average Glucose 151 mg/dL; Hemoglobin A1C 142.2361 umol/L; Hemoglobin A1c % 6.9 % (<6.0); Total Hemoglobin (HGBA1C) 2746.2686 umol/L
[2024-04-24 09:49] LABS: Alanine Aminotransferase 12 U/L (0-40); Albumin Level 3.9 g/dL (3.5-5.0); Alkaline Phosphatase 82 U/L (39-117); Anion Gap 14 (12-20); Aspartate Amino Transferase 22 U/L (5-37); Bilirubin Direct 0.2 mg/dL (0.0-0.5); Bilirubin Total 0.5 mg/dL (0.0-1.0); Blood Urea Nitrogen 32 mg/dL (9-16); Carbon Dioxide 23 mmol/L (22-29); Chloride 105 mmol/L (96-108); Cholesterol 118 mg/dL (<200); Estimated Glomerular Filt Rate 49; Glucose Fasting 170 mg/dL (60-99); Glucose Random 170 mg/dL (60-115); HDL Cholesterol 36 mg/dL (>40); LDL Cholesterol Calculated 67 mg/dL (<100); Potassium 4.9 mmol/L (3.3-5.1); Sodium 137 mmol/L (135-145); Total Protein 7.7 g/dL (6.5-8.0); Triglycerides 75 mg/dL (<150)
[2024-04-24 09:53] LABS: PSA,Total (Free>4and<10) 0.78 ng/mL (0.00-4.00)
[2024-04-24 09:56] LABS: Thyroid Stimulating Hormone 0.64 uIU/mL (0.32-4.0)
== END 2024-04-24 08:31 | disposition home or self-care (01) ==
LOC: HO.LAB 08:30
PROVIDERS: Nurse Practitioner Family; PCP Internal Medicine; Visit Provider Internal Medicine
DX: I48.0 Paroxysmal atrial fibrillation (principal); I25.10 Atherosclerotic heart disease of native coronary artery without angina pectoris; R33.9 Retention of urine, unspecified; E78.5 Hyperlipidemia, unspecified; Z13.29 Encounter for screening for other suspected endocrine disorder; D64.9 Anemia, unspecified; R73.9 Hyperglycemia, unspecified; Z12.5 Encounter for screening for malignant neoplasm of prostate; N39.490 Overflow incontinence
CPT/HCPCS: 36415; 80048; 80053; 80061; 80076; 82248; 83036; 84153; 84443; 85025; 85027

== ENCOUNTER 2024-04-30 10:33 | Day surgery (SDC) | payer MEDICARE, OTHER, SELFPAY ==
[2024-04-30] VITALS (11 sets, daily range): BP systolic 97–117; BP diastolic 46–69; PULSE 87–97; RESP 15–18; TEMP 36.1–37.3; O2SAT 94–100; BMI 22.6
--- NOTE | ~2024-04-30 | XR_ITS ---
EXAMINATION: XR CHEST CLINICAL INFORMATION: cough COMPARISON: 11/16/2023 TECHNIQUE: AP portable view of the chest was obtained. FINDINGS: Cardiac, hilar, and mediastinal contours are normal. The aorta is calcified. There are stable calcified pleural plaques in both lungs. There is pulmonary hyperaeration hyperlucency suggesting COPD. Suggestion of a tiny right pleural effusion. No left effusion. Lungs otherwise clear. No acute skeletal or soft tissue abnormality. Degenerative changes throughout the spine and bilateral shoulder joints. XR/XR chest 1V IMPRESSION: 1. Tiny right effusion, decreased from the prior examination. 2. COPD calcified pleural plaques, stable. 3. No active superimposed disease. Electronically signed by: Sameer Tinoco MD 04/30/2024 12:32 PM [facility]
--- NOTE | ~2024-04-30 | CT_ITS ---
EXAMINATION: CT HEAD WITHOUT IV CONTRAST HISTORY: weakness, confusion. TECHNIQUE: Unenhanced helical CT of the head was performed per standard departmental protocol. Coronal and sagittal reformats of the head were also evaluated. One or more of the following techniques was used for dose reduction: Automated exposure control, adjustment of the mA and/or kV according to patient size, use of iterative reconstruction technique. DLP: 621 mGy-cm COMPARISON: Comparison is made with the prior examination dated 06/14/2023. FINDINGS: BRAIN: There is diffuse prominence of the ventricular system and cortical sulci, consistent with atrophy. Periventricular and subcortical white matter hypodensities are noted which are nonspecific, but often seen in the setting of small vessel ischemic disease. There is no mass effect or midline shift. No intra- or extra-axial fluid collections are identified. Again seen is a right frontal extra-axial hyperdense mass measuring up to 3.2 cm in size consistent with a meningioma. SINUSES: The visualized paranasal sinuses are clear. The mastoid air cells and middle ear cavities are well pneumatized. ORBITS: The visualized orbits are unremarkable. BONES/SOFT TISSUES: The extracranial soft tissues are unremarkable. The calvarium is intact. No suspicious lytic or sclerotic lesions. CT/CT head/brain wo IV con IMPRESSION: No acute intracranial abnormality. Stable 3.2 cm right frontal meningioma. Electronically signed by: Jeffrey Ugalde MD 04/30/2024 12:28 PM [facility]
--- NOTE | 2024-04-30 10:46 | ED_ITS ---
HPI - Nausea/Vomiting/Diarrhea General Chief complaint: Skin/Abscess/Foreign Body Stated complaint: diff breathing Time Seen by Provider: 04/30/24 11:40 Source: patient, family (patient's grandson) and old records reviewed Mode of arrival: ambulatory Limitations: no limitations History of Present Illness ED Provider: Chantal Farnsworth PA-C HPI Narrative: Patient is an 88 year old assigned male at with a history of CAD, paroxysmal atrial fib on eliquis, HFrEF, HLD, DM, and HTN presenting to the emergency department today with concerns of a stuck food bolus. Patient states that last night he was eating pork when it got stuck in his throat. Patient states that he has been having increased weakness and food getting stuck is happening more frequently. Patient states that he has been unable to get this bolus down or out and every time he tries to drink water - he vomits. Patient denies any dizziness, lightheadedness, abdominal pain, fever, chills, blurry vision, double vision, loss of vision, chest pain, difficulty breathing, shortness of breath, back pain, night sweats, pain with urination, increased urinary frequency, increased urinary urgency, blood in his urine or stool, syncope or a near syncopal episode, recent trauma or falls, bowel incontinence, bladder incontinence, or any other complaints at this time. Associated nausea: Yes Related Data Home Medications ?Medication ?Instructions ?Recorded ?Confirmed acetaminophen 500 mg tablet 1,000 mg PO Q6H PRN Pain 11/16/23 04/23/24 Previous Rx's ?Medication ?Instructions ?Recorded blood-glucose meter (Accu-Chek #1 ea 05/24/22 Guide Glucose Meter) blood-glucose meter (FreeStyle #1 ea 06/09/22 Lite Meter kit) amiodarone 200 mg tablet 200 mg PO DAILY 90 days #90 tabs 01/15/24 apixaban 5 mg tablet (Eliquis) 5 mg PO BID #180 tabs 01/28/24 blood sugar diagnostic (FreeStyle #100 ea 02/11/24 Lite Strips) spironolactone 25 mg tablet 25 mg PO DAILY #90 tabs 02/11/24 atorvastatin 40 mg tablet 40 mg PO BEDTIME #90 tabs 02/17/24 metformin 500 mg tablet 1,000 mg (2 x 500 mg) PO BID 30 02/17/24 days #120 tabs finasteride 5 mg tablet 5 mg PO DAILY 90 days #90 tabs 03/02/24 tamsulosin 0.4 mg capsule 0.4 mg PO DAILY 90 days #90 caps 03/02/24 furosemide 20 mg tablet 20 mg PO DAILY PRN >90 SBP #90 tabs 03/18/24 solifenacin 5 mg tablet (Vesicare) 5 mg PO DAILY 30 days #30 tabs 03/31/24 cefuroxime axetil 500 mg tablet 500 mg PO Q12H #14 tabs 04/21/24 Allergies Allergy/AdvReac Type Severity Reaction Status Date / Time No Known Allergies Allergy Verified 04/30/24 11:01 [No Known Allergies*] Review of Systems 2 Constitutional: Constitutional: Reports no additional constitutional complaints, Denies chills, Denies fever(s) and Denies night sweats Eyes: Eyes: Reports no additional eye complaints, Denies blurry vision, Denies change in vision, Denies diplopia, Denies eye discharge, Denies loss of vision and Denies eye pain ENT: Denies dizziness Comments: food bolus Cardiovascular: Cardiovascular: Reports no additional cardiovascular complaints, Denies chest pain, Denies lightheadedness, Denies Loss of Consciousness and Denies dyspnea Respiratory: Respiratory: Reports no additional respiratory complaints and Denies dyspnea Gastrointestinal: Gastrointestinal: Reports no additional gastrointestinal complaints, Denies abdominal pain, Denies melena, Denies hematochezia, Denies change in bowel habits, Denies change in stool character, Reports nausea and Reports vomiting (when attempting anything by mouth) Genitourinary: Genitourinary: Reports no additional male genitourinary complaints, Denies hematuria, Denies oliguria, Denies difficulty urinating, Denies dysuria, Denies urinary frequency, Denies urinary hesitancy, Denies urinary incontinence and Denies urinary urgency Musculoskeletal: Musculoskeletal: Reports no additional musculoskeletal complaints, Denies numbness and Denies tingling Neurologic: Denies dizziness, Denies loss of vision, Denies numbness and Denies tingling Psychiatric: Psychiatric: Reports no additional psychiatric complaints Endocrine: Endocrine: Reports no additional endocrine complaints Hematologic/Lymphatic: Hematologic/Lymphatic: Reports no additional hematologic/lymphatic complaints Allergic/Immunologic: Allergic/Immunologic: Reports no additional allergic/immunologic complaints PMFSH Past Medical History Attestation statement: The following information was validated with the patient. (patient's grandson validated all information) Source: old records reviewed, obtained from family (patient's grandfather provided additional history and confirmed the history provided by the patient) and nursing notes reviewed Medical History Hematuria Abdominal pain Sepsis Urinary tract infection associated with cystostomy catheter CAD (coronary artery disease) HFrEF (heart failure with reduced ejection fraction) Acute exacerbation of CHF (congestive heart failure) Hyperlipidemia Alcohol abuse Diabetes mellitus Hypertension Surgical History History of cardiac cath History of hernia repair Family History Family History Father Liver problem Mother Past heart attack Brother Cancer Sister Cancer Social History Social History Household Members: Family and Children Housing: House Do you presently have visiting nurse or other home services: Yes ([facility] & Grandson helps with care.) Unable to assess alcohol history related to: Unknown Alcohol intake: current Alcohol intake frequency: holidays/special occasions only Alcohol type: beer Patient Tobacco Use Status: Former Tobacco user Tobacco use type: Cigarette (quit 57 years ago) e-Cigarette/Vaping Use: Never Used Second Hand Smoke Exposure: No service: Yes Current occupational status: retired Current occupation: retired [employer] Current occupational exposures/hazards: No Cognitive needs: No Hearing needs: No Vision needs: Yes (reading glasses) Physical Exam 2 Vital Signs: Vital Signs: Last Vital Signs Temp 97.9 F 04/30/24 19:53 Pulse 90 04/30/24 19:53 Resp 18 04/30/24 19:53 BP 101/58 L 04/30/24 19:53 Pulse Ox 96 04/30/24 19:53 O2 Del Method Room Air 04/30/24 19:53 O2 Flow Rate 3 04/30/24 17:52 BMI result Body Mass Index 22.6 Const: General: cooperative, no acute distress, alert and awake Nutritional Appearance: well nourished Orientation/consciousness: patient oriented x3 Limitations: no limitations HEENT: Head: Yes normal to inspection and Yes atraumatic Ears: hearing grossly normal bilaterally and external ears normal General nose exam: Normal external nose present, no nasal discharge noted and no epistaxis Face and sinus: Yes normal facial exam, No abrasion and No laceration Mouth: Normal oral and palatal mucosa present, no drooling and no muffled voice Eyes: General: appearance normal, both eyes and all related structures P eriorbital: periorbital findings normal Eyelids: Yes eyelids normal C onjunctivae: conjunctivae normal Pupils: Equal, round and reactive pupils present EOM: EOMs intact bilaterally Neck: Neck: Yes normal visual inspection, Yes full ROM and Yes no lymphadenopathy Chest: Chest palpation & inspection: normal inspection of the chest Resp: Effort & Inspection: normal respiratory effort and able to speak in complete sentences GI: Inspection: Yes normal to inspection Neuro: General: patient oriented x3 and moves all extremities Cranial nerves: Yes Equal, round and reactive pupils present Cognition (Neuro): n ormal cognition Extrem: General: Yes normal to inspection, Yes full ROM and Yes capillary refill normal Psych: Appearance: grossly normal Mental Status: mental status grossly normal Affect: normal affect Attitude: cooperative Thought process: N ormal thought process present Thought content: Normal thought content present Insight: Good insight present (Psych) Course Course Course Narrative: 88 yo male with PMH of PAF on eliquis, DM, HTN, HLD, ischemic cardiomyopathy, CAD with hx of food bolus impaction after eating roast pork last night - he cannot tolerate saliva and or keep anything else down. He states had a scope but there is no records at this time. Has suprapubic catheter. At this time labs EKG, CXR, and possible GI involvement this is a RAPID medical screening exam the rest of the history and physical exam is to be done by the main provider. Medications Administered Discontinued Medications Generic Name Dose Route Start Last Admin Trade Name Freq PRN Reason Stop Dose Admin Nitroglycerin 0.4 mg 04/30/24 12:33 04/30/24 13:20 Nitroglycerin 0.4 Mg Tab.Subl SUBLINGUAL 04/30/24 12:34 0.4 tab ONCE ONE Administration Pantoprazole Sodium 40 mg 04/30/24 15:18 04/30/24 15:57 Pantoprazole Sodium 40 Mg/10 Ml Vial IVPUSH 04/30/24 15:19 40 mg ONCE ONE Administration Medical Decision Making Medical Decision Making [facility] Narrative: Patient is an 88 year old assigned male at with a history of CAD, paroxysmal atrial fib on eliquis, HFrEF, HLD, DM, and HTN presenting to the emergency department today with concerns of a stuck food bolus. Patient's physical exam was unremarkable. Patient's blood work showed an elevated WBC count of 14.7 but otherwise unremarkable. Patient's EKG was unremarkable. Patient's chest x-ray and head CT showed no acute process. I explained my physical exam findings as well as all test results to the patient and the patient's grandson. I answered all questions asked by the patient and the patient's grandson. Patient received PO Nitrogylcerin dissolved in water which initially helped the patient's symptoms significantly. The patient then attempted to have water and eat a cracker and it did not settle while. I spoke with Dr. Rodríguez, the GI specailist cotton presser, who recommended EGD. Patient went and received an EGD where a food bolus was removed and the patient was able to tolerate PO well. I stressed the importance of the patient taking his medication as directed (either prescribed or as the over the counter packaging recommends). I stressed the importance of the patient following up with his primary care provider and a GI specialist. I stressed the importance of the patient returning to the emergency department immediately if his symptoms were to return or if he were to develop any dizziness, shortness of breath, difficulty breathing, chest pain, blurry vision, loss of vision, nausea, vomiting, abdominal pain, fever, chills, back pain, or any other complaints. Patient and the patient's grandson verbalized agreement and understanding with this treatment plan and discharge. Differential Diagnosis Differential Diagnoses: The differential diagnosis associated with the presentation includes Food bolus Impacted food bolus Admission/Observation Consideration of admission/observation: Escalation of care including admission/observation considered Patient would have been admitted to the hospital had his work up had any findings where hospital admission was appropriate and his clinical presentation warranted hospital admission. Consult Healthcare Provider Management of the patient was discussed with: Intranet Developer (spoke with the GI specialist as noted in the MDM Rationale portion of this note.) Lab Data [facility] Lab Attestation statement: I reviewed the patient's lab results. My interpretation of these results are in the MDM Rationale portion of this note. 04/30/24 11:21 04/30/24 11:21 Labs: Lab Results 04/30/24 04/30/24 Range/Units 11:21 17:11 WBC 14.7 H (4.8-10.8) X10*3/uL RBC 3.56 L (4.60-5.80) X10*6/uL Hgb 11.3 L (14.0-18.0) g/dl Hct 33.4 L (42.0-52.0) % MCV 93.8 (80.0-98.0) fL MCH 31.7 (27.0-33.0) pg MCHC 33.8 (31.0-36.0) g/dl RDW 13.5 (11.0-16.0) % Plt Count 331 (160-400) X10*3/uL MPV 9.8 (9.4-12.4) fL Immature Gran % (Auto) 0.5 H (0.0-0.4) % Neut % (Auto) 87.1 H (45-73) % Lymph % (Auto) 7.0 L (20-40) % [place] % (Auto) 4.2 (2-11) % Eos % (Auto) 0.9 (0-4) % Baso % (Auto) 0.3 (0-2) % Lymph # (Auto) 1.0 L (1.2-4.9) X10*3/uL [place] # (Auto) 0.6 (0.1-1.2) X10*3/uL Eos # (Auto) 0.1 (0.0-0.4) X10*3/uL Baso # (Auto) 0.1 (0.0-0.2) X10*3/uL Abs Immat Gran (auto) 0.07 H (0.00-0.03) X10*3/uL Absolute Neuts (auto) 12.8 H (2.0-8.3) x10*3/uL Absolute Nucleated RBC 0.000 (0.0-0.012) X10*3/uL Nucleated RBC % (auto) 0.0 (0.0-0.2) /100WBC PT 13.8 H (10.9-12.4) SEC INR 1.2 H D (0.9-1.1) Sodium 137 (135-145) mmol/L Potassium 4.5 (3.3-5.1) mmol/L Chloride 100 (96-108) mmol/L Carbon Dioxide 24 (22-29) mmol/L Anion Gap 18 (12-20) BUN 28 H (9-16) mg/dL Creatinine 1.30 (0.5-1.4) mg/dL Estim Creat Clear Calc 42.8 Estimated GFR 52 POC Glucose 171 H (60-115) mg/dL Random Glucose 228 H (60-115) mg/dL Lactic Acid 1.9 (0.5-2.0) mmol/L Calcium 9.6 D (8.4-10.2) mg/dL Magnesium 1.8 (1.6-2.6) mg/dL Total Bilirubin 0.7 (0.0-1.0) mg/dL Direct Bilirubin 0.3 (0.0-0.5) mg/dL AST 20 (5-37) U/L ALT 10 (0-40) U/L Alkaline Phosphatase 80 (39-117) U/L Troponin I High Sens 6.8 D (<3.5-35.0) ng/L B-Natriuretic Peptide 278 H (<100) pg/mL Total Protein 8.1 H (6.5-8.0) g/dL Albumin 4.2 (3.5-5.0) g/dL Lipase 26 (8-78) U/L Influenza Type A (PCR) NEGATIVE (Negative) Influenza Type B (PCR) NEGATIVE (Negative) RSV RNA Qual (PCR) NEGATIVE (Negative) SARS-CoV-2 RNA (RT-PCR) NEGATIVE (Negative) Independent Interpretation I performed an independent interpretation of an: EKG, Plain X-Ray and CT Scan Interpretation: My interpretation is in agreement with the radiologist's impression of these imaging studies. L Report Number: [id number]: Total DLP = 621.00 mGy-cm EXAMINATION: CT HEAD WITHOUT IV CONTRAST HISTORY: weakness, confusion. TECHNIQUE: Unenhanced helical CT of the head was performed per standard departmental protocol. Coronal and sagittal reformats of the head were also evaluated. One or more of the following techniques was used for dose reduction: Automated exposure control, adjustment of the mA and/or kV according to patient size, use of iterative reconstruction technique. DLP: 621 mGy-cm COMPARISON: Comparison is made with the prior examination dated 06/14/2023. FINDINGS: BRAIN: There is diffuse prominence of the ventricular system and cortical sulci, consistent with atrophy. Periventricular and subcortical white matter hypodensities are noted which are nonspecific, but often seen in the setting of small vessel ischemic disease. There is no mass effect or midline shift. No intra- or extra-axial fluid collections are identified. Again seen is a right frontal extra-axial hyperdense mass measuring up to 3.2 cm in size consistent with a meningioma. SINUSES: The visualized paranasal sinuses are clear. The mastoid air cells and middle ear cavities are well pneumatized. ORBITS: The visualized orbits are unremarkable. BONES/SOFT TISSUES: The extracranial soft tissues are unremarkable. The calvarium is intact. No suspicious lytic or sclerotic lesions. CT/CT head/brain wo IV con IMPRESSION: No acute intracranial abnormality. Stable 3.2 cm right frontal meningioma. Electronically signed by: Jeffrey Ugalde MD 04/30/2024 12:28 PM [facility] Dictated By: Jeffrey Ugalde MD Signed By: Electronically signed by Jeffrey Ugalde MD 04/30/24 1228 EXAMINATION: XR CHEST CLINICAL INFORMATION: cough COMPARISON: 11/16/2023 TECHNIQUE: AP portable view of the chest was obtained. FINDINGS: Cardiac, hilar, and mediastinal contours are normal. The aorta is calcified. There are stable calcified pleural plaques in both lungs. There is pulmonary hyperaeration hyperlucency suggesting COPD. Suggestion of a tiny right pleural effusion. No left effusion. Lungs otherwise clear. No acute skeletal or soft tissue abnormality. Degenerative changes throughout the spine and bilateral shoulder joints. XR/XR chest 1V IMPRESSION: 1. Tiny right effusion, decreased from the prior examination. 2. COPD calcified pleural plaques, stable. 3. No active superimposed disease. Electronically signed by: Sameer Tinoco MD 04/30/2024 12:32 PM [facility] Dictated By: Sameer Tinoco MD Signed By: Electronically signed by Sameer Tinoco MD 04/30/24 1232 I independently interpreted this EKG and am in agreement with the below findings: Vent. Rate: 89 BPM Atrial Rate: 89 BPM P-R Int: 168 ms QRS Dur: 122 ms QT Int: 422 ms P-R-T Axes: 40 -50 92 degrees QTcB Int: 513 ms Normal sinus rhythm Left anterior fascicular block Septal infarct, age undetermined When compared with ECG of 19-Apr-2024 17:40, Septal infarct is now Present QT has lengthened Electronically Signed By: COLTEN MCKEON Dictated By: Colten Mckeon MD Signed By: Electronically signed by Colten Mckeon MD 04/30/242032 Radiology Impression Discussion of test interpretation with radiology: I have reviewed the radiologist's reading. Independent Historian Clinical information obtained from an independent historian. History obtained from or confirmed by: Other (patient's grandson provided additional history and confirmed the history provided by the patient.) Critical Care Time Critical Care Time Critical Care Time: Yes Total Critical Care Time: 47 Attestation: I spent 47 minutes of Critical Care Time with this patient. This does not include time spent on separately reported billable procedures. Discharge Plan Discharge Clinical Impression: Food impaction of esophagus Patient Disposition: Home, Self-Care Interventions: ED Discharge Assessment Last Done: 04/30/24 19:53 Discharge Date/Time: 04/30/24 19:54
--- NOTE | 2024-04-30 10:50 | ECG_ITS ---
Test Reason : WEAKNESS Blood Pressure : */* mmHG Vent. Rate : 89 BPM Atrial Rate : 89 BPM P-R Int : 168 ms QRS Dur : 122 ms QT Int : 422 ms P-R-T Axes : 40 -50 92 degrees QTcB Int : 513 ms Normal sinus rhythm Left anterior fascicular block Septal infarct , age undetermined Abnormal ECG When compared with ECG of 19-Apr-2024 17:40, Septal infarct is now Present QT has lengthened Referred By: Christine Contreras Electronically Signed By: NEHEMIAS MCKEON
--- OUTSIDE RECORDS SUMMARY | 2024-04-30 11:15 | XMS_ITS | Encounter Summary ---
Author Name [facility] [place] [facility] [place] [facility] [place] Address [address] [place] [id number] Care Team Providers Care Review Consultant Name Role Phone JUVENTINO MARTIN Primary Care Provider Unav ailable SHELLEY HERBERT Unavailable Unavailable DIANE SANTOS Unavailable Unavailable CHAPALEKS, ARASELI Unavailable Unavailable FEINIKKY, WOODY Unavailable Unavailable ALLSOP, LISA Unavailable Unavailable BHARATI EVGA Unavailable Unavailable TAYLOR, GAY Unavailable Unavailable MIRI SAGE Unavailable Unavailable ALBERTO DENNISON Unavailable Unavail able Insurance Providers: All historical and current Section [...] PART A Apr 22, 2001 PART A [id number] JENIFER MENA PATIENT MEDICARE (WNR) MEDICARE (M) PART B Apr 22, 2001 PART B [id number] JENIFER MENA PATIENT [employer] MEDIGAP PLAN F May 11, 2008 PLANF [id number] JENIFER MENA PATIENT Selected Encounter This section includes the information on record at [place] for the Encounter. Date/Time Encounter Type Encounter Description Reason Provider Source Apr 17, 2024 03:17 PM CASE MANAGEMENT [facility] - EKG MANAGER ICD-10-CM Z65.9 Problem related to unspecified psychosocial circumstances Eliza HERBERT IHE Encounter Template Text not used by [place] Assessments - Encounter Diagnoses This section includes the primary and secondary diagnoses documented for the Encounter. Date/Time Primary/Secondary Diagnosis Diagnosis Name Provider Source Apr 17, 2024 03:55 PM PRIMARY Problem related to unspecified psychosocial circumstances Eliza HERBERT [facility] Plan of Treatment: Future Appointments (+ 6 months) and Future Tests (+/- 45 days) The Plan of Treatment section includes future care activities for the patient from all [place] treatmentfacilities. This section includes future appointments and [...] Order [facility] NUTRI TION SPOPC OUTPT Cons Grain Elevator Worker's Choice [facility] May 04, 2024 12:00 AM Laboratory - Chemistry Order BASIC METABOLIC PANEL (non-fasting) BLOOD (SST-SERUM) [facility] May 04, 2024 12:00 AM Laboratory - Chemistry Order LIPID PANEL FASTING BLOOD (SST-SERUM) [facility] May 04, 2024 12:00 AM Laboratory - Chemistry Order LIVER FUNCTION BLOOD (SST-SERUM) [facility] May 04, 2024 12:00 AM Laboratory - Chemistry Order CBC AND DIFF (AUTO) BLOOD (LAV-BLOOD) [facility] May 04, 2024 12:00 AM Laboratory - Chemistry Order HEMOGLOBIN A1C PANEL BLOOD (LAV-BLOOD) [facility] May 04, 2024 12:00 AM Laboratory - Chemistry Order TSH BLO[facility] (SST[facility]SERUM) [facility] May 04, 2024 12:00 AM Laboratory - Chemistry Order BNP (Natriuretic Peptide Brain) BLOOD (LAV[facility]PLASMA) [facility] May 04, 2024 12:00 AM Laboratory - Chemistry Order CALCIUM BLOOD (SST-SERUM) [facility] May 04, 2024 12:00 AM Laboratory - Chemistry Order VITAMIN D (25-OH) BLOOD (SST-SERUM) [facility] May 04, 2024 12:00 AM Laboratory - Chemistry Order OCCULT BLOOD FIT X1 SCREEN(IN-HOUSE) STOOL FECES [facility] Encounter Notes: All associated encounter notes This section contains the clinical notes associated to the Encounter. Date/Time Encounter Note(s) Provider Source Apr 17, 2024 01:30 PM [facility] NOTE: LOCAL TITLE: [facility] SOCIAL WORK ASSESSMENT STANDARD TITLE: [facility] NOTE DATE OF NOTE: APR 17, 2024@13:30 ENTRY DATE: APR 17, 2024@15:17:23 AUTHOR: SHELLEY HERBERT COSIGNER: URGENCY: STATUS: COMPLETED [facility] SOCIAL WORK ASSESSMENT Has ADDENDA WHAT MATTERS What Matters was addressed at this visit. Comment: To be able to walk again without walker. MENTATION Depression was addressed at this visit. Comment: Negative PHQ-2 MENTATION Dementia was addressed at this visit. Comment: [facility] Exam score of 4 falling WNL MENTATION Delirium was addressed at this visit. Comment: No s/s of delirium observed. SOCIAL WORK ASSESSMENT [place] was seen for: [X] Initial Review [ ] Annual Review Admission Date: 03/30/24 identified by: [X] Full Name [X] Address [ ] [ ] SSN [ ] Facial Recognition Patient Demographics: [place]: [place] [address] County: [place] Marital Status: Age: 88 Baptism: UNKNOWN/NO PREFERENCE Sex: MALE Occupation: Period of Service: [place] Branch of Service: [employer] Combat: NO POW: NO Eligibility: NSC Status: VERIFIED Means Test: NO LONGER REQUIRED NOK: CHRISTINA MURRAY Relation: SON Kunal [place], [place] Service Connected Disabilities with % Eligibility: NSC VERIFIED Other persons present: Length of visit: 60 minutes CURRENT LIVING ARRANGEMENTS [X] Own Home [ ] Apartment/rented house [ ] Senior Care Home [ ] Mcfp [ ] Assisted Living [ ] Home [...] Direct [ ]Avoidant SUPPORT SYSTEMS Informal supports: [place] has 5 adult children that he considers his own but were from his . One of his sons and his grandson live with him. Grandson is filling his MOLD STRIPPER hours paid by [facility] and there most of the time to assist him with ADLs and IADLs. He has 2 daughter in [facility], a son in [place], and a son in [facility]. Formal supports: [X]Homemaker/Home Health Aide [ ]Inpatient/in-home respite [ ]Adult Day Health Care [ ]VNA/Skilled Home Health Care [ ]Elder Services [X]Meals on Wheels [ ]Transportation [X]Personal Emergency Response System [ ]Home Oxygen [ ]Other: OXYGEN SAFETY [X]N/A [ ]No unsafe behavior observed [ ]Unsafe behavior observed ([facility] Home Oxygen Safety Checklist must be completed if unsafe behavior observed) SUBSTANCE USE Alcohol use: Occasional beer Nicotine use: None Other: Is interested in substance abuse/smoking cessation treatment? [ ]Yes [X]No PSYCHIATRIC HISTORY: No reported history of mental health issues or treatment. CRIMINAL HISTORY: Do you have a legal history(arrests,incarcerati ons,probation,parole,divorc e,child custody issues)? No I/ADL FUNCTIONAL ASSESSMENT Holland Index of [place] in Activities of Daily Living: Bathing: [ [...] contracted Home Health Aide Services?Yes,(explain) Agency Providing MOLD STRIPPER Services Guardian Alert 13 hours/week Are you satisfied with your personal care provided by the agency? YES Do you feel safe with the personal care services provided by the agency? YES FINANCIAL STATUS Income sources: [ ] [facility] pension [ ] Senior Care [ ] [place] compensation [ ] [place] Annuity [ ] Aid & Attendance [ ] [address] [X] SS Senior Care [ ] SS Disability [X] Private pension [...] ] Medicaid: [X] Supplemental insurance to Medicare: [facility] [ ] Other Private insurance: ADVANCE DIRECTIVE: Does the [place] have: VA Advance directives on file? [ ] Yes [X] No State Authorized Health Care Proxy Document on file? [ ] Yes [X] No If yes, was document reviewed with ? [ ] Yes [ ] No [ ] Current [ ] Needs to be updated HCP: If no , were advanced directives discussed with [place]? [X] Yes [ ] No Legal guardian? [ ] Yes [X] No Power of Motor Scooter Mechanic? [ ] Yes [X] No Conservator/Fiduciary? [ ] Yes [X] No Is there evidence of abuse or neglect? [ ] Yes [X] No ACTIVITIES/INTERESTS: Going to the [employer] 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 [...] by Vet Further cognitive evaluation requested by [place]: [ ] Yes [X] No The Blessed Orientation Memory Concentration (BOMC) Test: SCORE 0 1.) What year is it now? 0 2.) What month is it now? 0 3.) About what time is it? 0 4.) Count backwards 20 to 1. 0 5.) Say the months in reverse order (start with March) 4 6.) Repeat the memory phrase. (1)Moshe (1)Jenaro (1)42 X (1)Market X (1)[place] Score & Interpretation: 4 -- WNL CAREGIVER STATUS: Does the have a caregiver who provides substantive assistance on an ongoing basis for the [place] in the [place]'s place of residence? (not including paid professional caregivers) YES = [employer] Interview: Caregiver Name: Christina Murray -- Grandson had left the house. [employer] left for him to complete and give to the next [facility] staff who comes. 1. Do you feel [...] ] Guardian Alert/Personal Emergency Response System [X] Furniture Sales Consultant Care: [ ] Eligible for [place] contracted residential. [X] Not eligible for [facility] contracted residential. Advised watermelon inspector care would fall to private pay or Medicaid. [X] [facility] [ ] Housing: [ ] Assisted Living [ ] Independent Living [ ] Other: [ ] Meals on Wheels [ ] Medicaid/Medicare/Shine for private insurance options [X] VA Benefits/Compensation [ ] Caregiver support group [ ] Outpatient individual therapy [ ] Other: MENTAL HEALTH UNIT LEAD PSYCHOLOGIST PLANNING [X] Patient to stay at home with assistance. [ ] Patient willing to consider SNF. [ ] Declined to discuss watermelon inspector planning. ALTERNATIVE PLACEMENT/EMERGENCY PLAN [ ] VA Contract Fci Respite [ ] In-home Respite [X] Alternative family members providing care [ ] can remain home safely short-term. [ ] [place] is independent and does not require a caregiver. [ ] [place]/Caregiver declined. SW will continue education placement plans for urgent/emergent care on an annual basis. ASSESSMENT NARRATIVE: Today's initial assessment was conducted with [place] alone. Mr. Mena is an 88 year old who lives in a private one level home in [place]. has 5 adult children that he considers his own but were from his . One of his sons and his grandson live with him. Grandson is filling his MOLD STRIPPER hours paid by [facility] and there most of the time to assist him with ADLs and IADLs. He has 2 daughter in [facility], a son in [place], and a son in [facility]. Grandson and [place] would like to get more hours but he is at the maximum right now. Discussed filing claim for Aid and Attendance which is meant for paying for care including private pay. [place] in agreement and this medical technical writer will contact [facility] for assistance. 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 reported feeling very down yesterday due feeling [...] He indicated benefiting from talking with this medical technical writer and is in agreement to monthly supportive visits. SOCIAL WORK PLAN OF CARE: --Refer to [facility] for Aid and Attendance. --Contact [facility] Medical records dept for copy of HCP. --Provide follow up visit next month to assist [place] in coping with health issues and isolation. [...] to his/her clinician. Suicide Screen: C-SSRS Screening [place]-Suicide Severity Rating Scale (C-SSRS Screener) 1. Over [...] to other questions. Homelessness/Food Insecurity Screen: The [place] reports the following: Within the past 12 [...] one occasion in the past year? Never /seven [facility]ERT [facility] Vp Product Marketing Signed: 04/17/2024 15:55 04/29/2024 ADDENDUM STATUS: COMPLETED Referral made to [facility] for assistance filing claim for Aid and Attendance. /seven [facility] Vp Product Marketing Signed: 04/29/2024 12:44 SHELLEY HERBERT CNTRL [facility]N [facility]
--- OUTSIDE RECORDS SUMMARY | 2024-04-30 11:15 | XMS_ITS ---
Author Name [facility] [place] [facility] [place] Organization [facility] [place] Address [address] [place] [id number] Care Team Providers Care Card Filer Name Role Phone JUVENTINO MARTIN Primary Care Provider Unav ailable PIEDAD, SHELLEY Unavailable Unavailable DIANE SANTOS Unavailable Unavailable CHAPUT, ARASELI Unavailable Unavailable FEINIKKY, WOODY Unavailable Unavailable ALLSADI, LISA Unavailable Unavailable BHARATI VEGA Unavailable Unavailable TAYLOR, MILDRED Unavailable Unavailable MIRI SAGE Unavailable Unavailable ALBERTO [...] PART A Apr 22, 2001 PART A [id number] JENIFER ANAYA PATIENT MEDICARE (WNR) MEDICARE (M) PART B Apr 22, 2001 PART B [id number] JENIFER ANAYA PATIENT [employer] MEDIGAP PLAN F May 11, 2008 PLANF [id number] JENIFER ANAYA PATIENT Selected Encounter This section includes the information on record at [place] for the Encounter. Date/Time Encounter Type Encounter Description Reason Pro vider Source Apr 07, 2024 02:33 PM Outpatient Encounter [facility] PHYSIC EXTND(LICENSED MASSAGE THERAPIST,FINISH PATCHER,PA) IHE Encounter Template Text not used by [place] Plan of Treatment: Future Appointments (+ 6 months) and Future Tests (+/- 45 days) The Plan of Treatment section includes future care activities for the patient from all [place] treatmentfacilities. This section includes future appointments and [...] of theEncounter. The data comes from all [place] treatment facilities. Test Date/Time Test Type Test Details Facility Name Apr 03, 2024 02:43 PM Consult Order [facility] NUTRI TION SPOPC OUTPT Cons Weed Control Inspector's Choice [facility] May 04, 2024 12:00 AM Laboratory - Chemistry Order BASIC METABOLIC PANEL (non-fasting) BLOOD (SST-SERUM) [facility] May 04, 2024 12:00 AM Laboratory - Chemistry Order LIPID PANEL FASTING BLOOD (SST-SERUM) [facility] May 04, 2024 12:00 AM Laboratory - Chemistry Order LIVER FUNCTION BLOOD (SST-SERUM) [facility] May 04, 2024 12:00 AM Laboratory - Chemistry Order CBC AND DIFF (AUTO) BLOOD (LAV-BLOOD) [facility] May 04, 2024 12:00 AM Laboratory - Chemistry Order HEMOGLOBIN A1C PANEL BLOOD (LAV-BLOOD) [facility] May 04, 2024 12:00 AM Laboratory - Chemistry Order TSH BLOOD (SST-SERUM) [facility] May 04, 2024 12:00 AM Laboratory - Chemistry Order BNP (Natriuretic Peptide Brain) BLOOD (LAV-PLASMA) [facility] May 04, 2024 12:00 AM Laboratory - Chemistry Order CALCIUM BLOOD (SST-SERUM) [facility] May 04, 2024 12:00 AM Laboratory - Chemistry Order VITAMIN D (25-OH) BLOOD (SST-SERUM) [facility] May 04, 2024 12:00 AM Laboratory - Chemistry Order OCCULT BLOOD FIT X1 SCREEN(IN-HOUSE) STOOL FECES [facility] Encounter Notes: All associated encounter notes [...] No Advanced Directive Completed: No Family/Community Support:sanna Fletcher and Joel (both live in home), Guardian [employer] ACCOUNTING ANALYST 13hrs/wk Mental Status: A & O X 3 PLAN OF CARE Initial Dates covered by plan of care from Mar to Jun Primary Care Provider: Dr Meehan to Ms Fabiana NP PROBLEM LIST: Active problems - Computerized Problem List is the source for the followin. Lower urinary tract symptoms due to benign prostatic hypertrophy 2. History of cardiac catheterization 3. Frail elderly 4. Long-term current use of anticoagulant 5. CHF - Congestive Heart Failure ([facility] [id number]) 6. HTN - Hypertension ([facility] [id number]) 7. Hyperlipidemia ([facility] [id number]) 8. Diabetes Mellitus Type 2 ([facility] [id number]) 9. CAD - Coronary Artery Disease ([facility] [id number]) 10. OA - Osteoarthritis ([facility] [id number]) 11. AF - Atrial fibrillation 12. Under care of multiple providers non [place] PCP: Dimitri Wilson [phone] Cardiology: Yosef Cuello [phone] Optometry: Randall Blake [phone] [place] Medications: Active Outpatient Medications (including Supplies): Active [...] Health Assessment: urinary 'dribbling', BPH Fall Risk: [facility] 10 Fall Risk Assessment Tool Required [...] considered at risk for falling. Created by: [facility] Functional Limitations Use of [...] ADDRESED 1. PROBLEM ADDRESSED: Diabetes SPECIFIC GOAL: 's blood glucose levels will remain <170 over the next 90 delgado MEASURABLE: Monitor Hgb A1C as ordered to monitor efficacy of treatment INTERVENTIONS: review diabetic diet every nursing visit review glucose monitor log every visit t/a/e s/s hypo and hyperglycemia and when to call [place] vs 911 RELEVANT: will remain from complications [...] t/a/e s/s bleeding and when to call [place] vs 911 Monitor med ncaa compliance internship labs as needed RELEVANT: will remain from complications associated w/ blood thinner use which will help him remain stable and remain at home which matters most to him TIME: Smart goals will be assessed at routine visits and every 90 days during IDT. s 3. PROBLEM ADDRESSED: High Risk for Falls SPECIFIC GOAL: What does the [place] want to accomplish? prevent falls in the home MEASURABLE: How are you going to measure progress? will be able to verbalize safety awareness. will be able to report no falls [...] or health? Does the goal have meaning? [place] will be able to remain indep in his home which is part of what matters for him. TIME: Smart goals will be assessed at routine visits and every 90 days during IDT. This ongoing goal will be assessed at [facility] RN visits and every 90 days at IDT meetings 4. PROBLEM ADDRESSED: Congestive Heart Failure SPECIFIC GOAL: What does the [place] want to accomplish? Remain free from s/s CHF exacerbation MEASURABLE: How are you going to measure progress? will report stable weight and BP each nursing visit INTERVENTIONS: What are the steps needed to achieve the specific goal? will monitor BP daily will monitor weight daily and notify MD for weight gain of 3lbs in 2 days or 5lbs in one week will take medications as prescribed will follow low Na diet RELEVANT: Does it pertain to your [place]'s goals for his or her life or health? Does the goal have meaning? [place] will remain free from CHF exacerbation which will help stay out of the hospital TIME: Smart goals will be assessed at routine visits and every 90 days during IDT. This ongoing goal will be assess each [facility] nursing visit and at every 90 [...] cath equipment via clean technique Discuss w/ [place] [facility] regarding any concerns or questions regarding [...] will recognize changes that require reporting to [facility] staff patient will do accuchecks and follow diabetic diet patient will demonstrate correct use of adaptive equipment patient will be safe in home with environment adjusted to accommodate decrease in cognition and/or increase in disease progression Involvement of additional [facility] team members: N.P. assess and attach specific plan SW assess and attach specific plan RD assess and attach specific plan O.T. assess and attach specific plan request pharmacy review of medications Discharge Plan when able to remain in community safely with assistance of services and or family Per [facility] Discharge Policy Comments: Mr Hina Anaya is a [facility] who lives in a single family home [...] is NIDDM as well. Currently is receiving [facility] services every 2 weeks for care of SPT w/ changes monthly, medication prefills and general assess. Gson is PIPE MACHINE OPERATOR through [facility] 13hrs/wk (sports writer submitted Case Mix tool for request to increase ACCOUNTING ANALYST hours although request was denied). Medications filled through [facility] in [place] although would like to transition meds to [place] as appropriate. Medical records from recent admission to [facility] in [place]; Dr Cuello, cardiology and Dr Lea, urology [...] pink hypergranulation tissue noted at site edges; LOST AND FOUND CLERK. Plan for embedded firmware engineer [facility] assistance due to advanced age, homebound status and multiple chronic medical issues. /es/ LISA VIVAS RN, BSN [facility] TURFGRASS MANAGEMENT PROFESSOR Signed: 04/09/2024 15:02 Receipt Acknowledged By: 04/09/2024 15:06 /es/ LISA VIVAS RN, BSN [facility] TURFGRASS MANAGEMENT PROFESSOR for ALBERTO DENNISON 04/09/2024 16:34 /es/ Bambi Ritter, MSN, LICENSED MASSAGE THERAPIST [facility] Transcription Manager 04/09/2024 16:12 /es/ MIRI SAGE HB Clinical Pharmacist Practitioner 04/10/2024 08:30 /es/ Sabrina CRUZ [facility] build and deployment engineer 04/09/2024 16:16 /es/ JUVENTINO MARTIN RN,MSN,SHIPPING ROOM HELPER-C [facility] NURSE PRACTITIONER 04/20/2024 09:33 /es/ SAMMIE CARDONA RD, LDN REGISTERED DIETITIAN 04/10/2024 15:27 /es/ Monica Fairchild RN [facility] build and deployment engineer 04/10/2024 09:55 /es/ GLENN FOWLER, NOEL [facility] Nurse Practitioner 04/09/2024 15:28 /es/ SHELLEY HERBERT CREDIT CARD CLERK HB Futures Trader 04/09/2024 15:33 /es/ Mildred Ewing HB Occupational Therapist 04/13/2024 07:47 /es/ DIANE SANTOS STAFF DIETITIAN 04/09/2024 16:31 /es/ Filomena Jeffries RN BSN [facility] TURFGRASS MANAGEMENT PROFESSOR 04/10/2024 08:51 /es/ ALAN Mullen MD 04/09/2024 ADDENDUM STATUS: COMPLETED Initial assessment to be conducted within 30 days of admission to [facility] program. /michell/ DIEGO BROWN [facility] Futures Trader Signed: 04/09/2024 15:30 04/09/2024 ADDENDUM STATUS: COMPLETED New [facility] admission. Will complete OT assessment and initial home safety evaluation to identify rehab and equipment needs. Once initial rehab needs are addressed, [facility] Rehab will follow up with [place] at least annually and as need arises for change in function. /michell/ Mildred Ewing [facility] Occupational Therapist Signed: 04/09/2024 15:33 04/09/2024 ADDENDUM STATUS: COMPLETED Medication regimen was reviewed within 30 days of admission. Please see the 04/06/24 [facility] Pharmacy Medication Review note. /michell/ MIRI SAGE [facility] Clinical Pharmacist Practitioner Signed: 04/09/2024 16:13 04/09/2024 ADDENDUM STATUS: COMPLETED To admit w/in 30 days /michell/ JUVENTINO MARTIN RN,MSN,SHIPPING ROOM HELPER-C [facility] NURSE PRACTITIONER Signed: 04/09/2024 16:17 04/29/2024 ADDENDUM STATUS: COMPLETED Will continue to follow every 6-12 months for routine medical care and as needed for changes in condition. /michell/ JUVENTINO MARTIN RN,MSN,SHIPPING ROOM HELPER-C [facility] NURSE PRACTITIONER Signed: 04/29/2024 09:10 LISA VIVAS [place] [facility]
--- OUTSIDE RECORDS SUMMARY | 2024-04-30 11:16 | XMS_ITS | Encounter Summary ---
Author Name [facility] ([place]) Address [address] [place] [id number] Care Team Providers Care Engineering Recruiter Name Role Phone MARIOALANJUVENTINO Primary Care Provider Unav ailable SHELLEY HERBERT Unavailable Unavailable DIANE SANTOS Unavailable Unavailable ARASELI VARGAS Unavailable Unavailable DESIRE, WOODY Unavailable Unavailable ALLSOPat, LISA Unavailable Unavailable BHARATI VEGA Unavailable Unavailable TAYLOR, GAY Unavailable Unavailable ALONA, MIRI Unavailable Unavailable ALBERTO DENNISON Unavailable Unavail able [...] PART A Apr 22, 2001 PART A [id number] JENIFER ANAYA PATIENT MEDICARE (WNR) MEDICARE (M) PART B Apr 22, 2001 PART B [id number] JENIFER ANAYA PATIENT [employer] MEDIGAP PLAN F May 11, 2008 PLANF [id number] JENIFER ANAYA PATIENT Selected Encounter This section includes the information on record at [place] for the Encounter. Date/Time Encounter Type Encounter Description Reason Pro vider Source IHE Encounter Template Text not used by [place]
--- OUTSIDE RECORDS SUMMARY | 2024-04-30 11:16 | XMS_ITS ---
Author Name [facility] [place] [facility] [place] Organization [facility] [place] [place] Address [address] [place] [id number] Care Team Providers Care Editorial Project Manager Name Role Phone LIZ JUNG Primary Care Provider Unav ailable PIEDAD, SHELLEY Unavailable Unavailable DIANE SANTOS Unavailable Unavailable CHAPUT, ARASELI Unavailable Unavailable FEINIKKY, WOODY Unavailable Unavailable ALLSADI, LISA Unavailable Unavailable BHARATI VEGA Unavailable Unavailable TAYLOR, GAY Unavailable Unavailable MIRI [...] PART A Apr 22, 2001 PART A [id number] JENIFER ANAYA PATIENT MEDICARE (WNR) MEDICARE (M) PART B Apr 22, 2001 PART B [id number] JENIFER ANAYA PATIENT Home 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 PLAN F May 11, 2008 PLANF [id number] JENIFER ANAYA PATIENT Selected Encounter This section includes the information on record at [place] for the Encounter. 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 Date/Time Primary/Secondary Diagnosis Diagnosis Name Provider Source Apr 28, 2024 02:07 PM PRIMARY Benign prostatic hyperplasia with lower urinary tract symp LIZ JUNG [place] [facility] [place] [facility] Apr 28, 2024 02:07 PM SECONDARY Age-related physical debility ALAN JUNGTHIA [place] [facility] [place] [facility] Apr 28, 2024 02:07 PM SECONDARY Athscl heart disease of [place] coronary artery w/o ang pctrs ALAN JUNGTHIA [place] [facility] [place] [facility] Apr 28, 2024 02:07 PM SECONDARY Essential (primary) hypertension [facility] [place] [facility] Apr 28, 2024 02:07 PM SECONDARY Heart failure, unspecified [facility] [place] [facility] Apr 28, 2024 02:07 PM SECONDARY Hyperlipidemia, unspecified [facility] [place] [facility] Apr 28, 2024 02:07 PM SECONDARY Type 2 diabetes mellitus without complications [facility] [place] [facility] Apr 28, 2024 02:07 PM SECONDARY Unspecified atrial fibrillation [facility] [place] [facility] Plan of Treatment: Future Appointments (+ 6 months) and Future Tests (+/- 45 days) The Plan of Treatment section includes future care activities for the patient from all [place] treatmentfacilities. This section includes future appointments and [...] of theEncounter. The data comes from all [facility] facilities. Test Date/Time Test Type Test Details Facility Name Apr 03, 2024 02:43 PM Consult Order [facility] NUTRI TION SPOPC OUTPT Cons Custodial Worker's Choice [facility] May 04, 2024 12:00 AM Laboratory - Chemistry Order BASIC METABOLIC PANEL (non-fasting) BLOOD (SST-SERUM) [facility] May 04, 2024 12:00 AM Laboratory - Chemistry Order LIPID PANEL FASTING BLOOD (SST-SERUM) [facility] May 04, 2024 12:00 AM Laboratory - Chemistry Order LIVER FUNCTION BLOOD (SST-SERUM) [facility] May 04, 2024 12:00 AM Laboratory - Chemistry Order CBC AND DIFF (AUTO) BLOOD (LAV-BLOOD) [facility] May 04, 2024 12:00 AM Laboratory - Chemistry Order HEMOGLOBIN A1C PANEL BLOOD (LAV-BLOOD) [facility] May 04, 2024 12:00 AM Laboratory - Chemistry Order TSH BLOOD (SST-SERUM) [facility] May 04, 2024 12:00 AM Laboratory - Chemistry Order BNP (Natriuretic Peptide Brain) BLOOD (LAV-PLASMA) [facility] May 04, 2024 12:00 AM Laboratory - Chemistry Order CALCIUM BLOOD (SST-SERUM) [facility] May 04, 2024 12:00 AM Laboratory - Chemistry Order VITAMIN D (25-OH) BLOOD (SST-SERUM) [facility] May 04, 2024 12:00 AM Laboratory - Chemistry Order OCCULT BLOOD FIT X1 SCREEN(IN-HOUSE) STOOL FECES [facility] Vital Signs: All taken on the encounter date This section contains inpatient and outpatient Vital Signs collected on the date of the Encounter. Date/Time Temperature Pulse Blood Pressure Respiratory Rate SP02 Pain Height Weight Body Mass Index Source Apr 27, 2024 03:51 PM 98.5 82 130/80 16 97 0 [place] [facility] Encounter Notes: All associated encounter notes This section contains the clinical notes associated to the Encounter. Date/Time Encounter Note(s) Provider Source Apr 29, 2024 08:46 AM ADDENDUM: LOCAL TITLE: Addendum STANDARD TITLE: ADDENDUM DATE OF NOTE: APR 29, 2024@08:46:10 ENTRY DATE: APR 29, 2024@08:46:11 AUTHOR: WOODY PHIPPS EXP COSIGNER: URGENCY: STATUS: COMPLETED is now admitted to [facility]. All future clinic primary care appointments/recalls may be cancelled as all primary care will now be delivered by the [facility] team. /michell/ WOODY PHIPPS [facility] SLIMER Signed: 04/29/2024 08:46 Receipt Acknowledged By: 04/29/2024 10:06 /es/ TRINITY MILIAN for RICHELLE Head JOSE 04/29/2024 11:43 /es/ TANIYA YOUNGN RN-BC REGISTERED NURSE 04/29/2024 08:55 /es/ SABRINA VARGHESE CERTIFIED NURSE PRACTITIONER --- Original Document --- 04/27/24 [facility] PROVIDER ASSESSMENT: was seen for: [ ] Initial Review [ ] Annual Review Identified by name, , address and facial recognition: Y [facility] Ready: Yes [ ] No [ ] HPI:88 yo M seen for admission to [facility] and post hosptial f/u. Mr Hina Anaya is a [facility] who lives in a single family home w/ his son and his grandson. He ws at [facility] 04/20-04/22/24 for acute UTI/sepsis (e. coli sensitive to cephalosporins) associated w cathether. Sx included hematuria, abd discomfort, nasuea, and vomiting. His eliquis was held and to resulme upon dc. His Lasix was held to be resumed 04/25/24. Referred for f/u [facility] urology services for hematuria. PCP: Dr. Wilson has appoint 04/30/24 may cancel cardiology: Dr Cuello following q 6 months urology: Dr. Lea f/u 05/01 Optometry: Randall Blake [phone] non [place] pharmacy: [facility] A 1- 2x weekly - [place] [phone] Active problems - Computerized Problem List is the source for the followin. Lower urinary tract symptoms due to benign prostatic hypertrophy 2. History of cardiac catheterization 3. Frail elderly 4. Long-term current use of anticoagulant 5. CHF - Congestive Heart Failure ([facility] [id number]) 6. HTN - Hypertension ([facility] [id number]) 7. Hyperlipidemia ([facility] [id number]) 8. Diabetes Mellitus Type 2 ([facility] [id number]) 9. CAD - Coronary Artery Disease ([facility] [id number]) 10. OA - Osteoarthritis ([facility] [id number]) 11. AF - Atrial fibrillation 12. Under care of multiple providers non [place] PCP: Dimitri Wilson [phone] Cardiology: Yosef Cuello [phone] Optometry: Randall Blake [phone] Allergies: Patient has answered NKA The following [...] MOUTH ONCE DAILY ACTIVE 11 Total Medications FMH: mother: d. [place] 59 father: d. 58 cirrhosis/ETOH PSxHX: SP cath 2023 right inguinal hernia repair 40's hx of cardiac cath HISTORY: PERIOD OF SERVICE - FROM Apr TO Feb COMBAT SERVICE INDICATED: No SH: MARITAL STATUS - x 9 years retired 20 years ago Has 5 step children 3 cats Son Christina recently moved in and grandson Ihsan is [employer] has 13 hours/week fluid intake: 2 16 ounce bottles water/day 1 20 ounce vit water daily 2 coffees in AM 1-2 beers jermain Fridays at the [facility] What brings you harshal? to be able to walk again golfing now watches on TV Recent Falls Y( ) N(x) Recent Infections Y(x) N( ) Recent Hospitalizations Y (x) N( ) ADLS: Needs assistance with ( )ambulation ( ) dressing ( )toileting ( )transferring (x) bathing ( ) feeding (x) incontinence care ( )no ADL assistance needed Review of Systems: CONSTITUTIONAL: No recent weight change, no fever, + loss of appetite HEENT: hearing ok No vision change, has glasses no difficulty swallowing CARDIOVASCULAR: No cough, SOB, no chest pain, no palpitations, STEVENSON GASTROINTESTINAL: No abdominal pain, no nausea, + episodes of vomiting, occ bowel urgency/incontinence GENITOURINARY: SP cath DERMATOLOGICAL: No new or changing skin lesions, no rash MUSCULOSKELETAL: No joint pain, no joint swelling, no muscle pain, no muscle weakness ENDOCRINE: no fatigue PSYCHIATRIC: No anxiety, no trouble sleeping, no depression NEUROLOGIC: No headache, no numbness, no tingling, no weakness, no memory loss, no dizziness VITAL SIGNS: B/P: 130/80 (04/27/2024 15:51) Pulse: 82 (04/27/2024 15:51) Temperature: 98.5 F [36.9 C] (04/27/2024 15:51) Weight: 160 lb [72.57 kg] (03/30/2024 21:50) Height: BMI: BMI: Pain: 0 (04/27/2024 15:51) (0-10 scale) Pulse Ox:Measurement DT POx (L/MIN)(%) 04/27/2024 15:51 97 PE: GENERAL: Pt is appropriately dressed/groomed, good eye contact. NAD HEENT: normalcephalic, thyroid nonpalpable. conj clear, Oropharynx clear, tongue moist neck supple, no JVD, no carotid bruits SKIN: warm & dry, no rash CV: RRR, nl s1,s2 no M/G/R LUNGS: Clear to auscultation bilaterally, no use of accessory muscles ABD: NBS, soft, NT, ND, no masses or organomegaly appreciated SP cath in place w clear yellow urine EXTREMITIES: RASHID, warm, no edema, +PP NEURO/PSYCH: A+Ox4, good historian, mood/affect appropriate, thought/speech patterns appropriately conversant without delusional content Get up and go normal ( )with (x)without assistive device. ( )cane ( ) walker 04/21/24 BUN 26 creat 1.28 WBC 9.8 RBC 3.16 hgb 9.9 L hct 29.3 L A/P: Active problems - Computerized Problem List is the source for the following: >Lower urinary tract symptoms due to benign prostatic hypertrophy: recent hospitalization for UTI completed cefuroximine axetil 500mg BID x 7 days to f/u w urology as planned c/w vesicare 5mg daily >CAD - Coronary Artery Disease >History of cardiac catheterization >Hyperlipidemia : c/w lipitor 40mg qhs update lipids >Frail elderly: PT added to [facility] services working on getting a walk in shower installed >AF - Atrial fibrillation >Long-term current use of anticoagulant c/w eliquis 5mg BID c/w amiodorone 200mg daily check TSH follows cards q 6 months >CHF - Congestive Heart Failure : >HTN - Hypertension : resumed spirnolactorne 25mg daily On lasix 20mg daily no S+sx of fluid overload low sodium diet reinforced >Diabetes Mellitus Type 2 : c/w metformin 1gm BID check A1C HM: [place] has complex care needs and will benefit from ongoing interdisciplinary [facility] management. Treatment plan included shared decision-making and is confirmed with /caregiver. All questions answered. Education provided regarding medication, including details regarding any changes. All questions answered. O2 safety addressed if applicable: ( )Yes ( )No (x)Not applicable Life sustaining treatments/Goals of care conversation: (x)LST/GOCC discussed today. See LTC/GOCC note. ( )LST/GOCC discussed today. No changes. ( )LST/GOCC not discussed today: REASON Cognition: (x)No concerns. ( )[place] has a dx of dementia. Education on diagnosis and supportive care needs discussed. ( )Concern of cognitive impairment without a diagnosis of dementia. (x)Counseled on importance of physical activity, healthy diet, socialization and mentally-engaging activities to optimize cognitive functioning. Functional independence: (x)ADL assistance is needed. [facility] team to work w /caregiver to maxamize functional independence. This may include caregiver training, adaptive equipment, refer for AUTO ENGINE MECHANIC. ( )No ADL assistance needed. IM - Immunizations ADMINISTERED Immunization Series Date Facility Reaction Info COVID-19 (Jumping Nuts), MRNA, LNP-S, * 1 01/22/2023 No Site <C> COVID-19 (Jumping Nuts), MRNA, LNP-S, * 1 02/14/2022 No Site <C> COVID-19 (Jumping Nuts), MRNA, LNP-S, * 1 06/17/2020 No Site <C> COVID-19 (PFIZER), MRNA, LNP-S, * 1 03/02/2021 No Site <C> COVID-19 (PFIZER), MRNA, LNP-S, * 1 05/27/2020 No Site <C> COVID-19 (PFIZER), MRNA, LNP-S, * 03/11/2024 No Site COVID-19 (PFIZER), MRNA, LNP-S, * 1 09/11/2021 No Site <C> INFLUENZA, UNSPECIFIED FORMULATI* 03/11/2024 No Site [facility] 01/08/2012 No Site Review of medical records: min Time spent w patient including shared decision making: min Post visit documentation: min Total drive time: min F/U 3-6 months, sooner PRN. NF Labs by SANAM IRBY 1-2 months No barriers; Patient understands and agrees to current treatment plan. Outpt. Medication Reconciliation: Outpatient Medication Reconciliation + Discrepancies Found - Med Rec Completed. no longer on glybyride The patient's medication list/medication history was compared with CPRS and reviewed with the patient/caregiver and reconciled. The patient/caregiver was instructed to update this list, discard old lists, and take this list to their next appointment, whether with a [facility] or non-VA provider. Any changes in medications and any medications discontinued are documented in this note. AMIODARONE MONITORING: EKG annually on stable maintenance. Clinically monitor for photosensitivity. TSH no earlier than 3 months after initiation then annually. Hepatic transaminases annually on maintenance. Annual ophthalmic examination. Annual CXR and baseline PFT (repeated for suspicion and/or CT). Hemoglobin A1C: Order for HBA1C placed. /es/ LIZ JUNG RN,MSN,HAND SURGEON-C [facility] NURSE PRACTITIONER Signed: 04/28/2024 14:07 Receipt Acknowledged By: 04/28/2024 14:26 /michell/ LISA VIVAS RN, BSN [facility] DESIGNER ARCHITECT 04/29/2024 08:49 /es/ WOODY PHIPPS [facility] SLIMER 04/28/2024 ADDENDUM STATUS: COMPLETED mild anemia noted, no longer on coumadin now on DOAC. Patint w vague reports or vomiting and/or bowel urgency w loose stools. Labs ordered and please give FIT test to r/o bleed. Will follow up bret to reeval GI sx. /es/ LIZ JUNG RN,MSN,HAND SURGEON-C HB NURSE PRACTITIONER Signed: 04/28/2024 14:25 Receipt Acknowledged By: 04/28/2024 14:27 /michell/ LISA VIVAS RN, BSN [facility] DESIGNER ARCHITECT WOODY PHIPPS [place] [facility] Apr 28, 2024 02:23 PM ADDENDUM: LOCAL TITLE: Addendum STANDARD TITLE: ADDENDUM DATE OF NOTE: APR 28, 2024@14:23:49 ENTRY DATE: APR 28, 2024@14:23:50 AUTHOR: MARGO JUNG COSIGNER: URGENCY: STATUS: COMPLETED mild anemia noted, no longer on coumadin now on DOAC. Patint w vague reports or vomiting and/or bowel urgency w loose stools. Labs ordered and please give FIT test to r/o bleed. Will follow up bret to reeval GI sx. /es/ LIZ JUNG RN,MSN,HAND SURGEON-C [facility] NURSE PRACTITIONER Signed: 04/28/2024 14:25 Receipt Acknowledged By: 04/28/2024 14:27 /michell/ LISA VIVAS RN, BSN [facility] DESIGNER ARCHITECT --- Original Document --- 04/27/24 [facility] PROVIDER ASSESSMENT: [place] was seen for: [ ] Initial Review [ ] Annual Review Identified by name, , address and facial recognition: Y [facility] Ready: Yes [ ] No [ ] HPI:88 yo M seen for admission to [facility] and post hosptial f/u. Mr Hina Anaya is a [facility] who lives in a single family home w/ his son and his grandson. He ws at [facility] 04/20-04/22/24 for acute UTI/sepsis (e. coli sensitive to cephalosporins) associated w cathether. Sx included hematuria, abd discomfort, nasuea, and vomiting. His eliquis was held and to resulme upon dc. His Lasix was held to be resumed 04/25/24. Referred for f/u [facility] urology services for hematuria. PCP: Dr. Wilson has appoint 04/30/24 may cancel cardiology: Dr Cuello following q 6 months urology: Dr. Lea f/u 05/01 Optometry: Randall Blake [phone] non [place] pharmacy: [facility] shop [employer] 1- 2x weekly - [place] [phone] Active problems - Computerized Problem List is the source for the followin. Lower urinary tract symptoms due to benign prostatic hypertrophy 2. History of cardiac catheterization 3. Frail elderly 4. Long-term current use of anticoagulant 5. CHF - Congestive Heart Failure ([facility] [id number]) 6. HTN - Hypertension ([facility] [id number]) 7. Hyperlipidemia ([facility] [id number]) 8. Diabetes Mellitus Type 2 ([facility] [id number]) 9. CAD - Coronary Artery Disease ([facility] [id number]) 10. OA - Osteoarthritis ([facility] [id number]) 11. AF - Atrial fibrillation 12. Under care of multiple providers [facility] PCP: Dimitri Wilson [phone] Cardiology: Yosef Cuello [phone] Optometry: Randall Blake [phone] Allergies: Patient has answered NKA The following [...] MOUTH ONCE DAILY ACTIVE 11 Total Medications FMH: mother: d. [place] 58 father: d. 58 cirrhosis/ETOH PSxHX: SP cath 2023 right inguinal hernia repair 40's hx of cardiac cath HISTORY: PERIOD OF SERVICE - FROM Apr TO Feb COMBAT SERVICE INDICATED: No SH: MARITAL STATUS - x 9 years retired 20 years ago Has 5 step children 3 cats Son Christina recently moved in and grandsanna Champagne is [employer] has 13 hours/week fluid intake: 2 16 ounce bottles water/day 1 20 ounce vit water daily 2 coffees in AM 1-2 beers jermain Fridays at the [facility] What brings you harshal? to be able to walk again golfing now watches on TV Recent Falls Y( ) N(x) Recent Infections Y(x) N( ) Recent Hospitalizations Y (x) N( ) ADLS: Needs assistance with ( )ambulation ( ) dressing ( )toileting ( )transferring (x) bathing ( ) feeding (x) incontinence care ( )no ADL assistance needed Review of Systems: CONSTITUTIONAL: No recent weight change, no fever, + loss of appetite HEENT: hearing ok No vision change, has glasses no difficulty swallowing CARDIOVASCULAR: No cough, SOB, no chest pain, no palpitations, STEVENSON GASTROINTESTINAL: No abdominal pain, no nausea, + episodes of vomiting, occ bowel urgency/incontinence GENITOURINARY: SP cath DERMATOLOGICAL: No new or changing skin lesions, no rash MUSCULOSKELETAL: No joint pain, no joint swelling, no muscle pain, no muscle weakness ENDOCRINE: no fatigue PSYCHIATRIC: No anxiety, no trouble sleeping, no depression NEUROLOGIC: No headache, no numbness, no tingling, no weakness, no memory loss, no dizziness VITAL SIGNS: B/P: 130/80 (04/27/2024 15:51) Pulse: 82 (04/27/2024 15:51) Temperature: 98.5 F [36.9 C] (04/27/2024 15:51) Weight: 160 lb [72.57 kg] (03/30/2024 21:50) Height: BMI: BMI: Pain: 0 (04/27/2024 15:51) (0-10 scale) Pulse Ox:Measurement DT POx (L/MIN)(%) 04/27/2024 15:51 97 PE: GENERAL: Pt is appropriately dressed/groomed, good eye contact. NAD HEENT: normalcephalic, thyroid nonpalpable. conj clear, Oropharynx clear, tongue moist neck supple, no JVD, no carotid bruits SKIN: warm & dry, no rash CV: RRR, nl s1,s2 no M/G/R LUNGS: Clear to auscultation bilaterally, no use of accessory muscles ABD: NBS, soft, NT, ND, no masses or organomegaly appreciated SP cath in place w clear yellow urine EXTREMITIES: RASHID, warm, no edema, +PP NEURO/PSYCH: A+Ox4, good historian, mood/affect appropriate, thought/speech patterns appropriately conversant without delusional content Get up and go normal ( )with (x)without assistive device. ( )cane ( ) walker 04/21/24 BUN 26 creat 1.28 WBC 9.8 RBC 3.16 hgb 9.9 L hct 29.3 L A/P: Active problems - Computerized Problem List is the source for the following: >Lower urinary tract symptoms due to benign prostatic hypertrophy: recent hospitalization for UTI completed cefuroximine axetil 500mg BID x 7 days to f/u w urology as planned c/w vesicare 5mg daily >CAD - Coronary Artery Disease >History of cardiac catheterization >Hyperlipidemia : c/w lipitor 40mg qhs update lipids >Frail elderly: PT added to [facility]NA services working on getting a walk in shower installed >AF - Atrial fibrillation >Long-term current use of anticoagulant c/w eliquis 5mg BID c/w amiodorone 200mg daily check TSH follows cards q 6 months >CHF - Congestive Heart Failure : >HTN - Hypertension : resumed spirnolactorne 25mg daily On lasix 20mg daily no S+sx of fluid overload low sodium diet reinforced >Diabetes Mellitus Type 2 : c/w metformin 1gm BID check A1C HM: [place] has complex care needs and will benefit from ongoing interdisciplinary [facility] management. Treatment plan included shared decision-making and is confirmed with /caregiver. All questions answered. Education provided regarding medication, including details regarding any changes. All questions answered. O2 safety addressed if applicable: ( )Yes ( )No (x)Not applicable Life sustaining treatments/Goals of care conversation: (x)LST/GOCC discussed today. See LTC/GOCC note. ( )LST/GOCC discussed today. No changes. ( )LST/GOCC not discussed today: REASON Cognition: (x)No concerns. ( )[place] has a dx of dementia. Education on diagnosis and supportive care needs discussed. ( )Concern of cognitive impairment without a diagnosis of dementia. (x)Counseled on importance of physical activity, healthy diet, socialization and mentally-engaging activities to optimize cognitive functioning. Functional independence: (x)ADL assistance is needed. [facility] team to work w /caregiver to maxamize functional independence. This may include caregiver training, adaptive equipment, refer for AUTO ENGINE MECHANIC. ( )No ADL assistance needed. IM - Immunizations ADMINISTERED Immunization Series Date Facility Reaction Info COVID-19 (Jumping Nuts), MRNA, LNP-S, * 1 01/22/2023 No Site <C> COVID-19 (PFIZER), MRNA, LNP-S, * 1 02/14/2022 No Site <C> COVID-19 (PFIZER), MRNA, LNP-S, * 1 06/17/2020 No Site <C> COVID-19 (PFIZER), MRNA, LNP-S, * 1 03/02/2021 No Site <C> COVID-19 (PFIZER), MRNA, LNP-S, * 1 05/27/2020 No Site <C> COVID-19 (PFIZER), MRNA, LNP-S, * 03/11/2024 No Site COVID-19 (PFIZER), MRNA, LNP-S, * 1 09/11/2021 No Site <C> INFLUENZA, UNSPECIFIED FORMULATI* 03/11/2024 No Site [facility] 01/08/2012 No Site Review of medical records: min Time spent w patient including shared decision making: min Post visit documentation: min Total drive time: min F/U 3-6 months, sooner PRN. NF Labs by SANAM IRBY 1-2 months No barriers; Patient understands and agrees to current treatment plan. Outpt. Medication Reconciliation: Outpatient Medication Reconciliation + Discrepancies Found - Med Rec Completed. no longer on glybyride The patient's medication list/medication history was compared with CPRS and reviewed with the patient/caregiver and reconciled. The patient/caregiver was instructed to update this list, discard old lists, and take this list to their next appointment, whether with a VA or non-VA provider. Any changes in medications and any medications discontinued are documented in this note. AMIODARONE MONITORING: EKG annually on stable maintenance. Clinically monitor for photosensitivity. TSH no earlier than 3 months after initiation then annually. Hepatic transaminases annually on maintenance. Annual ophthalmic examination. Annual CXR and baseline PFT (repeated for suspicion and/or CT). Hemoglobin A1C: Order for HBA1C placed. /michell/ LIZ JUNG RN,MSN,HAND SURGEON-C [facility] NURSE PRACTITIONER Signed: 04/28/2024 14:07 Receipt Acknowledged By: 04/28/2024 14:26 /michell/ LISA VIVAS RN, BSN HB DESIGNER ARCHITECT * AWAITING SIGNATURE * WOODY PHIPPS [facility] Apr 28, 2024 02:15 PM NONVA NOTE: LOCAL TITLE: OUT OF HOSPITAL ORDERS STANDARD TITLE: NONVA NOTE DATE OF NOTE: APR 28, 2024@14:15 ENTRY DATE: APR 28, 2024@14:15:09 AUTHOR: MARGO JUNG EXP COSIGNER: URGENCY: STATUS: COMPLETED MOLST sent to [facility] /michell/ LIZ JUNG RN,MSN,HAND SURGEON-C [facility] NURSE PRACTITIONER Signed: 04/28/2024 14:15 CORY JUNG [facility] [place] [facility] Apr 28, 2024 02:15 PM LIFE-SUSTAINING TREATMENT PLAN: LOCAL TITLE: LIFE-SUSTAINING TREATMENT STANDARD TITLE: LIFE-SUSTAINING TREATMENT PLAN DATE OF NOTE: APR 28, 2024@14:15 ENTRY DATE: APR 28, 2024@14:15:33 AUTHOR: MARGO JUNG EXP COSIGNER: URGENCY: STATUS: COMPLETED LIFE-SUSTAINING TREATMENT (LST) DECISION-MAKING CAPACITY TO MAKE DECISIONS ABOUT LIFE_SUSTAINING TREATMENTS Patient has capacity to make decisions about LSTs. 'S VALUES AND GOALS OF CARE - Goals as reported by the patient (or surrogate): not to prolong the inevitable LIFE-SUSTAINING TREATMENT PLAN * In the event of cardiopulmonary arrest: DNAR/DNR: Do not attempt CPR. Other Life-Sustaining Treatments: Mechanical Ventilation - In the event of respiratory distress or failure when the patient HAS A PULSE, the patient: Mechanical ventilation discussed and patient does not want to limit at this time. Artificial Nutrition (enteral or parenteral) - The patient: Does NOT want artificial nutrition except as specified (e.g. short-term trial): short term only Artificial Hydration (enteral, IV or subcutaneous) - The patient: Does NOT want artificial hydration except as specified (e.g. short-term trial): short term only Dialysis - The patient: Dialysis discussed and patient does not want to limit at this time. Transfers - The patient: Transfers discussed and patient does not want to limit at this time. INFORMED CONSENT Patient gave oral informed consent for life-sustaining treatment plan. STATE-AUTHORIZED PORTABLE ORDERS (TAMARA) - Completed and provided to the patient (or surrogate) 15 Time spent discussing and documenting this care planning activity. /michell/ LIZ JUNG RN,MSN,HAND SURGEON-C [facility] NURSE PRACTITIONER Signed: 04/28/2024 14:20 CORY JUNG [place] [facility] [place] [facility] Apr 28, 2024 02:13 PM ADDENDUM: LOCAL TITLE: Addendum STANDARD TITLE: ADDENDUM DATE OF NOTE: APR 28, 2024@14:13:37 ENTRY DATE: APR 28, 2024@14:13:38 AUTHOR: MARGO JUNG COSIGNER: URGENCY: STATUS: COMPLETED Please fax and request for last 2 visit notes, labs, and last CXR. thank you. Name of office: Dr. Dimitri Wilson fax number: [phone] /michell/ LIZ JUNG RN,MSN,HAND SURGEON-C [facility] NURSE PRACTITIONER Signed: 04/28/2024 14:14 Receipt Acknowledged By: 04/28/2024 17:02 /michell/ WOODY PHIPPS [facility] SLIMER --- Original Document --- 04/28/24 PATIENT LETTER (B): [facility] Name of office: Dr. Dimitri Wilson fax number: [phone] Date:APR 28, 2024 Re: JENIFER ANAYA, : 37 To Whom It May Concern: We are sending this letter regarding the above patient. He has recently been admitted to our [place] [facility] on 04/27/24. We have undertaken all Primary Care responsibilities since the admission date with patients consent, including prescribing and medication management. We are aware that our patients have secondary insurances which require either an annual or biannual visit from their community PCP, which we encourage so that they can continue the benefits from their secondary insurance. However, we as kthat the role of prescribing medications is only done by one provider. We appreciate any communication or updates to the medication. We can be reached by phone by [phone] and our fax number is [phone] We are grateful for the collaboration and ensuring that our Veterans are getting the best care possible. Please reach out with any questions. Sincerely, [facility] Primary Care Team Sincerely, Liz Jung Nurse Practitioner [facility] [address] [address] P: [phone] x [phone] fax: [phone] [facility]ORY JUN[facility] [place] [facility] Apr 28, 2024 02:08 PM LETTERS: LOCAL TITLE: PATIENT LETTER (B) STANDARD TITLE: LETTERS DATE OF NOTE: APR 28, 2024@14:08 ENTRY DATE: APR 28, 2024@14:08:10 AUTHOR: MARGO JUNG COSIGNER: URGENCY: STATUS: COMPLETED PATIENT LETTER (B) Has ADDENDA [facility] Name of office: Dr. Dimitri Wilson fax number: [phone] Date:APR 28, 2024 Re: JENIFER ANAYA, : 37 To Whom It May Concern: We are sending this letter regarding the above patient. He has recently been admitted to our [place] [facility] on 04/27/24. We have undertaken all Primary Care responsibilities since the admission date with patients consent, including prescribing and medication management. We are aware that our patients have secondary insurances which require either an annual or biannual visit from their community PCP, which we encourage so that they can continue the benefits from their secondary insurance. However, we as kthat the role of prescribing medications is only done by one provider. We appreciate any communication or updates to the medication. We can be reached by phone by [phone] and our fax number is [phone] We are grateful for the collaboration and ensuring that our Veterans are getting the best care possible. Please reach out with any questions. Sincerely, [facility] Primary Care Team Sincerely, Liz Jung Nurse Practitioner [facility] [address] [address] P: [phone] fax: [phone] 04/28/2024 ADDENDUM STATUS: COMPLETED Please fax and request for last 2 visit notes, labs, and last CXR. thank you. Name of office: Dr. Dimitri Wilson fax number: [phone] /es/ LIZ JUNG RN,MSN,HAND SURGEON-C [facility] NURSE PRACTITIONER Signed: 04/28/2024 14:14 Receipt Acknowledged By: * AWAITING SIGNATURE * WOODY PHIPPS [facility] [place] [facility] Apr 27, 2024 08:41 AM HB ATTENDING NOTE: LOCAL TITLE: HB PROVIDER ASSESSMENT STANDARD TITLE: [facility] ATTENDING NOTE DATE OF NOTE: APR 27, 2024@08:41 ENTRY DATE: APR 27, 2024@08:41:54 AUTHOR: MARGO JUNG COSIGNER: URGENCY: STATUS: COMPLETED [facility] PROVIDER ASSESSMENT Has ADDENDA [place] was seen for: [ ] Initial Review [ ] Annual Review Identified by name, , address and facial recognition: Y VVC Ready: Yes [ ] No [ ] HPI:88 yo M seen for admission to [facility] and post hosptial f/u. Mr Hina Anaya is a [facility] who lives in a single family home w/ his son and his grandson. He ws at [facility] 04/20-04/22/24 for acute UTI/sepsis (e. coli sensitive to cephalosporins) associated w cathether. Sx included hematuria, abd discomfort, nasuea, and vomiting. His eliquis was held and to resulme upon dc. His Lasix was held to be resumed 04/25/24. Referred for f/u [facility] urology services for hematuria. PCP: Dr. Wilson has appoint 04/30/24August cancel cardiology: Dr Cuello following q 6 months urology: Dr. Lea f/u 05/01 Optometry: Randall Blake [phone] non [place] pharmacy[facility] 1- 2x weekly - [place] [phone] Active problems - Computerized Problem List is the source for the followin. Lower urinary tract symptoms due to benign prostatic hypertrophy 2. History of cardiac catheterization 3. Frail elderly 4. Long-term current use of anticoagulant 5. CHF - Congestive Heart Failure ([facility] [id number]) 6. HTN - Hypertension ([facility] [id number]) 7. Hyperlipidemia ([facility] [id number]) 8. Diabetes Mellitus Type 2 ([facility] [id number]) 9. CAD - Coronary Artery Disease ([facility] [id number]) 10. OA - Osteoarthritis ([facility] [id number]) 11. AF - Atrial fibrillation 12. Under care of multiple providers non [place] PCP: Dimitri Wilson [phone] Cardiology: Yosef Cuello [phone] Optometry: Randall Blake [phone] Allergies: Patient has answered NKA The following VA and Non-[place] meds were reconciled with patient: Active and [...] MOUTH ONCE DAILY ACTIVE 11 Total Medications FMH: mother: d. [place] 59 father: d. 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 to be able to walk again golfing now watches on TV Recent Falls Y( ) N(x) Recent Infections Y(x) N( ) Recent Hospitalizations Y (x) N( ) ADLS: Needs assistance with ( )ambulation ( ) dressing ( )toileting ( )transferring (x) bathing ( ) feeding (x) incontinence care ( )no ADL assistance needed Review of Systems: CONSTITUTIONAL: No recent weight change, no fever, + loss of appetite HEENT: hearing ok No vision change, has glasses no difficulty swallowing CARDIOVASCULAR: No cough, SOB, no chest pain, no palpitations, STEVENSON GASTROINTESTINAL: No abdominal pain, no nausea, + episodes of vomiting, occ bowel urgency/incontinence GENITOURINARY: SP cath DERMATOLOGICAL: No new or changing skin lesions, no rash MUSCULOSKELETAL: No joint pain, no joint swelling, no muscle pain, no muscle weakness ENDOCRINE: no fatigue PSYCHIATRIC: No anxiety, no trouble sleeping, no depression NEUROLOGIC: No headache, no numbness, no tingling, no weakness, no memory loss, no dizziness VITAL SIGNS: B/P: 130/80 (04/27/2024 15:51) Pulse: 82 (04/27/2024 15:51) Temperature: 98.5 F [36.9 C] (04/27/2024 15:51) Weight: 160 lb [72.57 kg] (03/30/2024 21:50) Height: BMI: BMI: Pain: 0 (04/27/2024 15:51) (0-10 scale) Pulse Ox:Measurement DT POx (L/MIN)(%) 04/27/2024 15:51 97 PE: GENERAL: Pt is appropriately dressed/groomed, good eye contact. NAD HEENT: normalcephalic, thyroid nonpalpable. conj clear, Oropharynx clear, tongue moist neck supple, no JVD, no carotid bruits SKIN: warm & dry, no rash CV: RRR, nl s1,s2 no M/G/R LUNGS: Clear to auscultation bilaterally, no use of accessory muscles ABD: NBS, soft, NT, ND, no masses or organomegaly appreciated SP cath in place w clear yellow urine EXTREMITIES: RASHID, warm, no edema, +PP NEURO/PSYCH: A+Ox4, good historian, mood/affect appropriate, thought/speech patterns appropriately conversant without delusional content Get up and go normal ( )with (x)without assistive device. ( )cane ( ) walker 04/21/24 BUN 26 creat 1.28 WBC 9.8 RBC 3.16 hgb 9.9 L hct 29.3 L A/P: Active problems - Computerized Problem List is the source for the following: >Lower urinary tract symptoms due to benign prostatic hypertrophy: recent hospitalization for UTI completed cefuroximine axetil 500mg BID x 7 days to f/u w urology as planned c/w vesicare 5mg daily >CAD - Coronary Artery Disease >History of cardiac catheterization >Hyperlipidemia : c/w lipitor 40mg qhs update lipids >Frail elderly: PT added to [facility] services working on getting a walk in shower installed >AF - Atrial fibrillation >Long-term current use of anticoagulant c/w eliquis 5mg BID c/w amiodorone 200mg daily check TSH follows cards q 6 months >CHF - Congestive Heart Failure : >HTN - Hypertension : resumed spirnolactorne 25mg daily On lasix 20mg daily no S+sx of fluid overload low sodium diet reinforced >Diabetes Mellitus Type 2 : c/w metformin 1gm BID check A1C HM: [facility] [place] has complex care needs and will benefit from ongoing interdisciplinary HBPC management. Treatment plan included shared decision-making and is confirmed with [place]/caregiver. All questions answered. Education provided regarding medication, including details regarding any changes. All questions answered. O2 safety addressed if applicable: ( )Yes ( )No (x)Not applicable Life sustaining treatments/Goals of care conversation: (x)LST/GOCC discussed today. See LTC/GOCC note. ( )LST/GOCC discussed today. No changes. ( )LST/GOCC not discussed today: REASON Cognition: (x)No concerns. ( ) has a dx of dementia. Education on diagnosis and supportive care needs discussed. ( )Concern of cognitive impairment without a diagnosis of dementia. (x)Counseled on importance of physical activity, healthy diet, socialization and mentally-engaging activities to optimize cognitive functioning. Functional independence: (x)ADL assistance is needed. HB[facility] team to work w /caregiver to maxamize functional independence. This may include caregiver training, adaptive equipment, refer for AUTO ENGINE MECHANIC. ( )No ADL assistance needed. IM - Immunizations ADMINISTERED Immunization Series Date Facility Reaction Info COVID-19 (PFIZER), MRNA, LNP-S, * 1 01/22/2023 No Site <C> COVID-19 (PFIZER), MRNA, LNP-S, * 1 02/14/2022 No Site <C> COVID-19 (PFIZER), MRNA, LNP-S, * 1 06/17/2020 No Site <C> COVID-19 (PFIZER), MRNA, LNP-S, * 1 03/02/2021 No Site <C> COVID-19 (PFIZER), MRNA, LNP-S, * 1 05/27/2020 No Site <C> COVID-19 (PFIZER), MRNA, LNP-S, * 03/11/2024 No Site COVID-19 (PFIZER), MRNA, LNP-S, * 1 09/11/2021 No Site <C> INFLUENZA, UNSPECIFIED FORMULATI* 03/11/2024 No Site [facility] 01/08/2012 No Site Review of medical records: min Time spent w patient including shared decision making: min Post visit documentation: min Total drive time: min F/U 3-6 months, sooner PRN. NF Labs by SANAM IRBY 1-2 months No barriers; Patient understands and agrees to current treatment plan. Outpt. Medication Reconciliation: Outpatient Medication Reconciliation + Discrepancies Found - Med Rec Completed. no longer on glybyride The patient's medication list/medication history was compared with CPRS and reviewed with the patient/caregiver and reconciled. The patient/caregiver was instructed to update this list, discard old lists, and take this list to their next appointment, whether with a VA or non-VA provider. Any changes in medications and any medications discontinued are documented in this note. AMIODARONE MONITORING: EKG annually on stable maintenance. Clinically monitor for photosensitivity. TSH no earlier than 3 months after initiation then annually. Hepatic transaminases annually on maintenance. Annual ophthalmic examination. Annual CXR and baseline PFT (repeated for suspicion and/or CT). Hemoglobin A1C: Order for HBA1C placed. /michell/ LIZ JUNG RN,MSN,HAND SURGEON-C [facility] NURSE PRACTITIONER Signed: 04/28/2024 14:07 Receipt Acknowledged By: 04/28/2024 14:26 /es/ LISA VIVAS RN, BSN [facility] DESIGNER ARCHITECT 04/29/2024 08:49 /es/ WOODY PHIPPS HB[facility] SLIMER 04/28/2024 ADDENDUM STATUS: COMPLETED mild anemia noted, no longer on coumadin now on DOAC. Patint w vague reports or vomiting and/or bowel urgency w loose stools. Labs ordered and please give FIT test to r/o bleed. Will follow up closley to reeval GI sx. /es/ LIZ JUNG RN,MSN,HAND SURGEON-C HB NURSE PRACTITIONER Signed: 04/28/2024 14:25 Receipt Acknowledged By: 04/28/2024 14:27 /es/ LISA VIVAS RN, BSN [facility] DESIGNER ARCHITECT 04/29/2024 ADDENDUM STATUS: COMPLETED is now admitted to [facility]PC-PACT. All future clinic primary care appointments/recalls may be cancelled as all primary care will now be delivered by the HBPC team. /es/ WOODY PHIPPS HB[facility] SLIMER Signed: 04/29/2024 08:46 Receipt Acknowledged By: * AWAITING SIGNATURE * RICHELLE GARCIA * AWAITING SIGNATURE * JENNIFER FU * AWAITING SIGNATURE * ARDEN TRENT [facility] [place] [facility]
--- OUTSIDE RECORDS SUMMARY | 2024-04-30 11:16 | XMS_ITS | Encounter Summary ---
Author Name [facility] Organization [facility] Address [address] [place] [address] Care Team Providers Care Painter Bottom Name Role Phone JUVENTINO MARTIN Primary Care Provider Unav ailable SHELLEY HERBERT Unavailable Unavailable DIANE SANTOS Unavailable Unavailable CHAPUT, ARASELI Unavailable Unavailable FEINIKKY, WOODY Unavailable Unavailable ALLSOPat, LISA Unavailable Unavailable BHARATI VEGA Unavailable Unavailable GAY VAZQUEZ Unavailable Unavailable MIRI SAGE Unavailable Unavailable ALBERTO [...] PART A Apr 22, 2001 PART A [id number] JENIFER ANAYA PATIENT MEDICARE (WNR) MEDICARE (M) PART B Apr 22, 2001 PART B [id number] JENIFER ANAYA PATIENT [employer] MEDIGAP PLAN F May 11, 2008 PLANF [id number] JENIFER ANAYA PATIENT Selected Encounter This section includes the information on record at [place] for the Encounter. Date/Time Encounter Type Encounter Description Reason Provider Source Apr 23, 2024 10:22 AM SYNCH AUDIO-ONLY NEW MOD 45 TELEPHONE [facility] ICD-10-CM N40.1 Benign prostatic hyperplasia with lower urinary tract symp Neva MARTIN IHE Encounter Template Text not used by [place] Assessments - Encounter Diagnoses This section includes the primary and secondary diagnoses documented for the Encounter. Date/Time Primary/Secondary Diagnosis Diagnosis Name Provider Source Apr 23, 2024 10:22 AM PRIMARY Benign prostatic hyperplasia with lower urinary tract symp Neva MARTIN [facility] Plan of Treatment: Future Appointments (+ 6 months) and Future Tests (+/- 45 days) The Plan of Treatment section includes future care activities for the patient from all [place] treatmentfacilities. This section includes future appointments and [...] of theEncounter. The data comes from all [place] treatment facilities. Test Date/Time Test Type Test Details Facility Name Apr 03, 2024 02:43 PM Consult Order [facility] NUTRI TION SPOPC OUTPT Cons [employer] [facility] May 04, 2024 12:00 AM Laboratory - Chemistry Order BASIC METABOLIC PANEL (non-fasting) BLOOD (SST-SERUM) [facility] May 04, 2024 12:00 AM Laboratory - Chemistry Order LIPID PANEL FASTING BLOOD (SST-SERUM) [facility] May 04, 2024 12:00 AM Laboratory - Chemistry Order LIVER FUNCTION BLOOD (SST-SERUM) [facility] May 04, 2024 12:00 AM Laboratory - Chemistry Order CBC AND DIFF (AUTO) BLOOD (LAV-BLOOD) [facility] May 04, 2024 12:00 AM Laboratory - Chemistry Order HEMOGLOBIN A1C PANEL BLOOD (LAV-BLOOD) [facility] May 04, 2024 12:00 AM Laboratory - Chemistry Order TSH BLOOD (SST-SERUM) [facility] May 04, 2024 12:00 AM Laboratory - Chemistry Order BNP (Natriuretic Peptide Brain) BLOOD (LAV-PLASMA) [facility] May 04, 2024 12:00 AM Laboratory - Chemistry Order CALCIUM BLOOD (SST-SERUM) [facility] May 04, 2024 12:00 AM Laboratory - Chemistry Order VITAMIN D (25-OH) BLOOD (SST-SERUM) [facility] May 04, 2024 12:00 AM Laboratory - Chemistry Order OCCULT BLOOD FIT X1 SCREEN(IN-HOUSE) STOOL FECES [facility] Encounter Notes: All associated encounter notes This section contains the clinical notes associated to the Encounter. Date/Time Encounter Note(s) Provider Source Apr 23, 2024 11:09 AM [facility] NOTE: LOCAL TITLE: [facility] TELEPHONE NOTE STANDARD TITLE: [facility] NOTE DATE OF NOTE: APR 23, 2024@11:09 ENTRY DATE: APR 23, 2024@11:09:12 AUTHOR: MARGO MARTIN COSIGNER: URGENCY: STATUS: COMPLETED S:Called JENIFER ANAYA PHONE NUMBER [CELLULAR] - PATIENT PHONE - TelePhone visit Was at [facility] dcd 04/22/24 feeling better than when went it, tired all the time. +UTI on new medicine picked up [facility] O: A+Ox4, thought logical, speech clear, breathing sounds unlabored. A/P: 88 yo M new patient to [facility] w recent hospitalization for UTI dcd home 04/22/24 w ABX. Request for [facility] records. Admission scheduled for 04/27/24 at 9am Time spent 15 min (x)medications -unable to reconcile No barriers; Patient/family understands and agrees to current treatment plan. If pt has any questions, concerns, or changes in current health status he/she will call or come in to the [place]. /michell/ JUVENTINO MARTIN RN,MSN,OLDER ADULT SOCIAL WORK SPECIALIST-C [facility] NURSE PRACTITIONER Signed: 04/27/2024 16:40 CORY MARTIN [place] [facility]
[2024-04-30 11:34] LABS: MANUAL DIFF FLAG NO
[2024-04-30 11:37] LABS: Basophils Absolute Auto 0.1 X10*3/uL (0.0-0.2); Basophils Percent Auto 0.3 % (0-2); Eosinophils Absolute Auto 0.1 X10*3/uL (0.0-0.4); Eosinophils Percent Auto 0.9 % (0-4); Hematocrit 33.4 % (42.0-52.0); Hemoglobin 11.3 g/dl (14.0-18.0); Imm Gran Abs Auto 0.07 X10*3/uL (0.00-0.03); Imm Gran Pct Auto 0.5 % (0.0-0.4); Mean Corpuscular HGB Conc 33.8 g/dl (31.0-36.0); Mean Corpuscular Hemoglobin 31.7 pg (27.0-33.0); Mean Corpuscular Volume 93.8 fL (80.0-98.0); Mean Platelet Volume 9.8 fL (9.4-12.4); Monocytes Absolute Auto 0.6 X10*3/uL (0.1-1.2); Monocytes Percent Auto 4.2 % (2-11); Neutrophils Absolute Auto 12.8 x10*3/uL (2.0-8.3); Neutrophils Percent Auto 87.1 % (45-73); Platelet Count 331 X10*3/uL (160-400); Red Blood Count 3.56 X10*6/uL (4.60-5.80); Red Cell Distribution Width 13.5 % (11.0-16.0); White Blood Count 14.7 X10*3/uL (4.8-10.8)
[2024-04-30 11:44] LABS: INTERNATIONAL NORM RATIO 1.2 (0.9-1.1); Prothrombin Time 13.8 SEC (10.9-12.4)
[2024-04-30 11:56] LABS: Lactic Acid 1.9 mmol/L (0.5-2.0)
[2024-04-30 12:02] LABS: B Type Natriuretic Peptide 278 pg/mL (<100)
[2024-04-30 12:03] LABS: Alanine Aminotransferase 10 U/L (0-40); Albumin Level 4.2 g/dL (3.5-5.0); Anion Gap 18 (12-20); Aspartate Amino Transferase 20 U/L (5-37); Bilirubin Direct 0.3 mg/dL (0.0-0.5); Bilirubin Total 0.7 mg/dL (0.0-1.0); Blood Urea Nitrogen 28 mg/dL (9-16); Calcium 9.6 mg/dL (8.4-10.2); Carbon Dioxide 24 mmol/L (22-29); Chloride 100 mmol/L (96-108); Creatinine Clr Calc Pharmacy 42.8; Estimated Glomerular Filt Rate 52; Glucose Random 228 mg/dL (60-115); Lipase 26 U/L (8-78); Magnesium 1.8 mg/dL (1.6-2.6); Potassium 4.5 mmol/L (3.3-5.1); Sodium 137 mmol/L (135-145); Total Protein 8.1 g/dL (6.5-8.0); Troponin-I High Sensitivity 6.8 ng/L (<3.5-35.0)
[2024-04-30 12:17] LABS: Influenza A PCR NEGATIVE (Negative); Influenza B PCR NEGATIVE (Negative); Resp Syncy Virus RNA Qual PCR NEGATIVE (Negative); SARS COV2 PCR INHOUSE NEGATIVE (Negative)
[2024-04-30 12:29] LABS: Alkaline Phosphatase 80 U/L (39-117)
[2024-04-30] MEDS: Nitroglycerin 0.4 MG TAB.SUBL SUBLINGUAL (13:20)
--- NOTE | 2024-04-30 14:58 | PC.NURSE ---
Pt to have PO challenge. Crackers and water given.
--- NOTE | 2024-04-30 15:34 | P.CNGI_ITS ---
History of Present Illness Data of Consult Service Date: 04/30/24 Requesting physician: Chantal Farnsworth Primary Care Provider: Dimitri Wilson MD [facility] Reason for consult: dysphagia 88 YM with CAD, paroxysmal atrial fib on eliquis, HFrEF, HLD, DM, and HTN seen at [facility] on 04/30/24 with food impaction. Patient states that last night he was eating pork at 5:30 pm last evening when it got stuck in his throat. He was able to vomit some food out and went to sleep at 10 pm last night. He tried to drink coffee with biscuits this morning and vomited after. Patient states that he has been having increased weakness and food getting stuck is happening more frequently since the past 6 months He has been able to vomit or regurgitate the food back in the past. Patient states that he has been unable to get this bolus down or out and every time he tries to drink water - he vomits. Patient denies any dizziness, lightheadedness, abdominal pain, fever, chills, blurry vision, double vision, loss of vision, chest pain, difficulty breathing, shortness of breath, back pain, night sweats, syncope or a near syncopal episode, recent trauma or falls or any other complaints at this time. Review of Systems 2 Constitutional: Constitutional: Reports no additional constitutional complaints, Denies chills, Denies fever(s) and Denies night sweats Eyes: Eyes: Reports no additional eye complaints, Denies blurry vision, Denies change in vision, Denies diplopia, Denies eye discharge, Denies loss of vision and Denies eye pain ENT: Denies dizziness Comments: food bolus Cardiovascular: Cardiovascular: Reports no additional cardiovascular complaints, Denies chest pain, Denies lightheadedness, Denies Loss of Consciousness and Denies dyspnea Respiratory: Respiratory: Reports no additional respiratory complaints and Denies dyspnea Gastrointestinal: Gastrointestinal: Reports no additional gastrointestinal complaints, Denies abdominal pain, Denies melena, Denies hematochezia, Denies change in bowel habits, Denies change in stool character, Reports nausea and Reports vomiting (when attempting anything by mouth) Genitourinary: Genitourinary: Reports no additional male genitourinary complaints, Denies hematuria, Denies oliguria, Denies difficulty urinating, Denies dysuria, Denies urinary frequency, Denies urinary hesitancy, Denies urinary incontinence and Denies urinary urgency Musculoskeletal: Musculoskeletal: Reports no additional musculoskeletal complaints, Denies numbness and Denies tingling Neurologic: Denies dizziness, Denies loss of vision, Denies numbness and Denies tingling Psychiatric: Psychiatric: Reports no additional psychiatric complaints Endocrine: Endocrine: Reports no additional endocrine complaints Hematologic/Lymphatic: Hematologic/Lymphatic: Reports no additional hematologic/lymphatic complaints Allergic/Immunologic: Allergic/Immunologic: Reports no additional allergic/immunologic complaints [facility] Past Medical History Medical History Hematuria Abdominal pain Sepsis Urinary tract infection associated with cystostomy catheter CAD (coronary artery disease) HFrEF (heart failure with reduced ejection fraction) Acute exacerbation of CHF (congestive heart failure) Hyperlipidemia Alcohol abuse Diabetes mellitus Hypertension Family History Family History Father Liver problem Mother Past heart attack Brother Cancer Sister Cancer Surgical History Surgical History History of cardiac cath History of hernia repair Social History Social History Household Members: Family and Children Housing: House Do you presently have visiting nurse or other home services: Yes ([facility]NA & Grandson helps with care.) Unable to assess alcohol history related to: Unknown Alcohol intake: current Alcohol intake frequency: holidays/special occasions only Alcohol type: beer Patient Tobacco Use Status: Former Tobacco user Tobacco use type: Cigarette (quit 57 years ago) Smoked in Last 30 Days: No e-Cigarette/Vaping Use: Never Used Second Hand Smoke Exposure: No Use of substances other than those prescribed or required for medical reasons: No Advance Directives: No Advance Directives Information Provided: Yes service: Yes Current occupational status: retired Current occupation: retired [employer] Current occupational exposures/hazards: No Cognitive needs: No Hearing needs: No Vision needs: Yes (reading glasses) Meds Allergies Allergy/AdvReac Type Severity Reaction Status Date / Time No Known Allergies Allergy Verified 04/30/24 11:01 [No Known Allergies*] Home Medications ?Medication ?Instructions ?Recorded ?Confirmed ?Last Taken ?Type acetaminophen 500 mg tablet 1,000 mg PO Q6H PRN Pain 11/16/23 04/23/24 Unknown History Physical Exam 2 Vital Signs: Vital Signs: Last Vital Signs Temp 97.6 F 04/30/24 14:44 Pulse 88 04/30/24 14:44 Resp 15 04/30/24 14:44 BP 101/58 L 04/30/24 14:44 Pulse Ox 97 04/30/24 14:44 O2 Del Method Room Air 04/30/24 14:44 BMI result Body Mass Index 22.6 Const: General: no acute distress Nutritional Appearance: average body habitus Orientation/consciousness: patient oriented x3 Limitations: p hysical limitations HEENT: Head: Yes normal to inspection Ears: hearing grossly normal bilaterally Eyes: Sclerae: sclerae normal Pupils: Equal, round and reactive pupils present Neck: Neck: Yes normal visual inspection Chest: Chest palpation & inspection: normal inspection of the chest Resp: Effort & Inspection: normal respiratory effort Auscultation: clear to auscultation bilaterally Cardio: Palpation: normal PMI Rate: regular rate Rhythm: regular rhythm Heart sounds: S1 normal heart sound present, S2 normal heart sound present and no murmurs GI: Palpation (GI): Soft to palpation, nontender and No hepatosplenomegaly present Auscultation: normal bowel sounds Rectal Exam - Male: Yes deferred Skin: General skin exam: no rashes or lesions noted Neuro: General: patient oriented x3, gait normal and moves all extremities Cranial nerves: Yes Equal, round and reactive pupils present Psych: Appearance: grossly normal Mental Status: mental status grossly normal Results Labs 04/30/24 11:21 04/30/24 11:21 Labs: Short CBC 04/30/24 Range/Units 11:21 WBC 14.7 H (4.8-10.8) X10*3/uL Hgb 11.3 L (14.0-18.0) g/dl Hct 33.4 L (42.0-52.0) % Plt Count 331 (160-400) X10*3/uL BMP 04/30/24 11:21 Sodium 137 Potassium 4.5 Chloride 100 Carbon Dioxide 24 BUN 28 H Creatinine 1.30 Calcium 9.6 D Liver Function 04/30/24 Range/Units 11:21 Total Bilirubin 0.7 (0.0-1.0) mg/dL Direct Bilirubin 0.3 (0.0-0.5) mg/dL AST 20 (5-37) U/L ALT 10 (0-40) U/L Alkaline Phosphatase 80 (39-117) U/L Albumin 4.2 (3.5-5.0) g/dL Assessment and Plan (1) Food impaction of esophagus: Status: Acute Plan 88 YM with CAD, paroxysmal atrial fib on eliquis, HFrEF, HLD, DM, and HTN seen at [facility] on 04/30/24 with food impaction. Patient states that last night he was eating pork at 5:30 pm last evening when it got stuck in his throat. He was able to vomit some food out and went to sleep at 10 pm last night. He tried to drink coffee with biscuits this morning and vomited after. Patient states that he has been having increased weakness and food getting stuck is happening more frequently since the past 6 months He has been able to vomit or regurgitate the food back in the past. Pt was given NTG sublinguallly in the ED with partial improvement in symptoms without complete resolution RECOMMENDATIONS: Proceed with urgent EGD today for removal of esophageal food bolus. EGD procedure and potential complications including bleeding, perforation, reaction to anesthetic and aspiration were reviewed with the patient. Procedures Date of Service Date of Service: 04/30/24
[2024-04-30] MEDS: Pantoprazole Sodium 40 MG/10 ML VIAL IVPUSH (15:57)
--- NOTE | 2024-04-30 16:50 | PC.NURSE ---
Pt to short stay surgery for endoscope
--- OUTSIDE RECORDS SUMMARY | 2024-04-30 16:56 | XMS_ITS | Continuity of Care Document ---
Author Name [facility] Organization [facility] Care Team Providers Care Title Manager Name Role Phone [facility] Unavailable Unavailable Problems Combined list of problems from Department of Defense and Veterans Affairs facilities. It does not include entries that were removed or entered in error. Problem Status Onset Date Problem Type Date of Resolution Comments Source AF - Atrial fibrillation Active Condition [place] CAD - Coronary Artery Disease ([facility] [id number]) Active Condition [place] CHF - Congestive Heart Failure ([facility] [id number]) Active Condition [place] Diabetes Mellitus Type 2 ([facility] [id number]) Active Condition [place] Frail elderly Active Condition [facility] History of cardiac catheterization Active Condition [facility] HTN - Hypertension ([facility] [id number]) [facility] Hyperlipidemia ([facility] [id number]) Active Condition [place] Ischemic congestive cardiomyopathy Active [facility] Long-term current use of anticoagulant Active Condition [facility] Lower urinary tract symptoms due to benign prostatic hypertrophy Active Condition Apr 23, 2024 Entered By: JUVENTINO MARTIN Comment: urinary retention w SP cath [place] OA - Osteoarthritis ([facility] [id number]) [facility] Under care of multiple providers Active Condition Apr 28 025 Entered By: JUVENTINO MARTIN Comment: non [facility] PCP: Dimitri Wilson [phone] : dual care note sent 04/28/24Au2023 Entered By: RUKHSANA HANKINS Comment: Cardiology: Yosef Cuello [phone] Dec 20, 2023 Entered By: ROBIN FU Comment: Optometry: Randall Blake [phone] Apr 23, 2024 Entered By: JUVENTINO MARTIN Comment: [facility]: fax# [phone] [facility] Diagnosis: ICD-10-CM N40.1 Benign prostatic hyperplasia with lower urinary tract symp Active Diagnosis [facility] Diagnosis: ICD-10-CM Z65.9 Problem related to unspecified psychosocial circumstances Active Diagnosis [facility] Diagnosis: ICD-10-CM R26.9 Unspecified abnormalities of gait and mobility Active Diagnosis [facility] Diagnosis: ICD-10-CM Z79.899 [place] [facility] [place] (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 Active Diagnosis [facility] Diagnosis: ICD-10-CM R54 Age-related physical debility Active Diagnosis [facility] Diagnosis: ICD-10-CM I50.9 Heart failure, unspecified Active Diagnosis [facility] Diagnosis: ICD-10-CM Z51.81 Encounter for therapeutic drug level monitoring Active Diagnosis [facility] Diagnosis: ICD-10-CM 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 Active Diagnosis [facility] Diagnosis: ICD-10-CM I48.91 Unspecified atrial fibrillation Active Diagnosis [facility] Diagnosis: ICD-10-CM Z74.1 Need for assistance with personal care Active Diagnosis [facility] Diagnosis: ICD-10-CM I10 Essential (primary) hypertension Active Diagnosis [place] Medications Combined list of outpatient medications from Department of Defense and [facility] Affairs facilities.Medications provided include 1) outpatient medications from the last 15 months, and 2) patient-reported medications. Medication Details Route Status Patient Instructions Prescription Expires Prescription Number Last Dispense Date Ordering Provider Order Date Order Qty Source ACETAMINOPH EN 500MG TAB TAKE TWO TABLETS BY MOUTH TWICE DAILY NEEDED FOR PAIN ORAL ACTIVE 04/28/2025 [id number] 5 [place] [address] [facility] AMIODARONE HCL 200MG TAB TAKE ONE TABLET BY MOUTH ONCE DAILY FOR VENTRICU LAR FIBRILLA TION ORAL SUSPEND ED 04/28/2025 [id number] 5 [place] [address] [facility] APIXABAN 5MG TAB TAKE ONE TABLET BY MOUTH EVERY 12 HOURS FOR ATRIAL FIBRILLA TION ORAL ACTIVE 04/28/2025 [id number] 5 D[place] CEB[place] [address] [facility] APIXABAN 5MG TAB TAKE ONE TABLET BY MOUTH EVERY 12 HOURS FOR ATRIAL FIBRILLA TION ORAL DISCONT INUED 05/05/2024 [id number] STELEA,CA RMEN F 2023 180 [place] ATORVASTATI N [place] 40MG TAB TAKE ONE TABLET BY MOUTH AT BEDTIME FOR HIGH CHOLESTE ROL ORAL ACTIVE 04/28/2025 [id number] 5 DREAD CE[place]ALLOS,[place] [address] [facility] FINASTERIDE 5MG TAB TAKE ONE TABLET BY MOUTH ONCE DAILY FOR ENLARGED PROSTATE ORAL ACTIVE 04/28/2025 [id number] 5 [place] [address] FUROSEMIDE 20MG TAB TAKE ONE TABLET BY MOUTH ONCE DAILY TO REMOVE FLUID/CO NTROL BLOOD PRESSURE ORAL ACTIVE 04/28/2025 [id number] 5 [place] [address] METFORMIN HCL 500MG 24HR TAB,SA TAKE TWO TABLETS BY MOUTH TWICE DAILY FOR TYPE 2 DIABETES MELLITUS ORAL ACTIVE 04/28/2025 [id number] 5 [place] [address] [facility] SOLIFENACIN SUCCINATE 5MG TAB TAKE ONE TABLET BY MOUTH ONCE DAILY FOR OVERACTI VE BLADDER ORAL ACTIVE 04/28/2025 [id number] 5 [place] [address] [facility] SPIRONOLACT ONE 25MG TAB TAKE ONE TABLET BY MOUTH ONCE DAILY FOR HEART FAILURE ORAL ACTIVE 04/28/2025 [id number] 5 [place] [address] [facility] TAMSULOSIN HCL 0.4MG CAP TAKE ONE CAPSULE BY MOUTH ONCE DAILY FOR ENLARGED PROSTATE ORAL ACTIVE 04/28/2025 [id number] CORY PEREZ 2024 90 [facility] Immunizations Combined list of available immunizations from the Department of Defense and Veterans Affairs facilities. Immunization Series Date Given Administered By Site Reaction Lot Number CVX Code Drug Work Car Operator Status Comments Source COVID-19 ([facility]), MRNA, LNP-S, PF, EMELINA-SUCROSE, 30 MCG/0.3 ML (AGES 12+ YEARS) 2023 309 complet ed [facility] INFLUENZA, UNSPECIFIED FORMULATION 2023 88 complet ed [facility] COVID-19 ([facility]), MRNA, LNP-S, BIVALENT, PF, 30 MCG/0.3 ML DOSE 1 2022 300 complet ed noted in [facility] [place] [facility] COVID-19 ([facility]), MRNA, LNP-S, BIVALENT, PF, 30 MCG/0.3 ML DOSE 1 2021 300 complet ed noted in [facility] [place] [facility] COVID-19 ([facility]), MRNA, LNP-S, PF, EMELINA-SUCROSE, 30 MCG/0.3 ML (AGES 12+ YEARS) 1 2021 309 complet ed noted in [facility] [place] [facility] COVID-19 ([facility]), MRNA, LNP-S, PF, 30 MCG/0.3 ML DOSE 1 2020 208 complet ed noted in [facility] [place] [facility] COVID-19 ([facility]), MRNA, LNP-S, BIVALENT, PF, 30 MCG/0.3 ML DOSE 1 2020 300 complet ed noted in [facility] [place] [facility] COVID-19 ([facility]), MRNA, LNP-S, PF, 30 MCG/0.3 ML DOSE 1 2020 208 complet ed noted in [facility] [place] [facility] ZOSTER LIVE 2011 121 complet ed [facility] Vital Signs Combined list of inpatient and outpatient Vital Signs from Department of Defense and Veterans Affairs, ranging from 12 months to all on record, depending upon the facility. Vital Sign Value Date Comments Source SYSTOLIC BLOOD PRESSURE 130 04/27/2024 15:51:11 [facility] DIASTOLIC BLOOD PRESSURE 80 04/27/2024 15:51:11 [facility] PULSE OXIMETRY 97 04/27/2024 15:51:11 [facility] PAIN 0 04/27/2024 15:51:11 [facility] TEMPERATURE 98.5 04/27/2024 15:51:11 [facility] PULSE 82 04/27/2024 15:51:11 [facility] RESPIRATION 16 04/27/2024 15:51:11 [facility] SYSTOLIC BLOOD PRESSURE 128 03/30/2024 21:50:44 VA [...] [facility] 2) Encounters from the Department of Defense facilities going back up to 280 months. Location Location Details Encounter Type Encounter Number Reason For Visit Attending Provider ADM Date DC Date Status Disposition Source [facility] Outpatient Encounter [id number] 1.01/22 [facility] En[facility] [id number] 1.11/15 [facility] Out[facility] Encounter [id number] 1.11/15 [facility] Encounter [id number] 1[facility]11/20 [facility] Encounter [id number] 11/24 [facility] Encounter [id number] 11/26 [facility] Encounter [id number] 12/03 [facility] Out[facility] Encounter [id number] 12/04 [facility] Encounter [id number] 12/04 [facility] Encounter [id number] [facility] Out[facility] Encounter [id number] 1.01/06 [facility] [place] [facility] O/P NEW MOD 45 MIN [id number] Diagnos is: ICD-10- CM I10 Essenti al (primar y) hyperte nsion<b r/> JOVANNY HANKINS F 01/15 [facility] [place] [facility] HC PRO PHONE CALL 5-10 MIN [id number] Diagnos is: ICD-10- CM I50.9 Heart failure , unspeci fied
CASTILLO-MILTON TINEO 01/20 [facility] Out[facility] Encounter [id number] 1.01/27 [facility] Out[facility] Encounter [id number] 01/27 [facility] Out[facility] Encounter [id number] ANNA TANNER 01/29 [facility] Out[facility] Encounter [id number] 01/29 [facility] Out[facility] Encounter [id number] 01/29 [facility]counter [id number] 1.01/29 [facility] [place] [facility] PRO PHONE CALL 5-10 MIN [id number] 1BY. [id number] Diagnos is: ICD-10- CM Z74.1 Need for assista nce with persona l care
ITALO ALVARADO 01/29 [place] [facility] MTMS BY PHARM ADDL 15 MIN [id number] Diagnos is: ICD-10- CM I48.91 Unspeci fied atrial fibrill ation<b r/> ELIANE CHUN 02/05 [facility] Outpatient Encounter [id number] 1.02/05 [facility] Out[facility] Encounter [id number] 1.02/12 [facility] Out[facility] Encounter [id number] [facility] Outpatient Encounter [id number] [facility] OT EVAL LOW COMPLEX 30 MIN [id number] 1. 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
REJI PRICE 03/10 [facility] Outpatient Encounter [id number] 1.03/11 [facility] MTMS BY PHARM EST 15 MIN [id number] Diagnos is: ICD-10- CM Z51.81 Encount er for therape utic drug level monitor ing<br/ > ELIANE CHUN 03/12 [facility], 15 MIN [id number] Diagnos is: ICD-10- CM I50.9 Heart failure , unspeci fied
MILTON SMALLWOOD 03/13 [facility] Out[facility] Encounter [id number] 1.03/13 [facility] RN CARE EA 15 MIN HH/HOSPICE [id number] 1. Diagnos is: ICD-10- CM I50.9 Heart failure , unspeci fied
ALLSOCARLOS ALBERTO Stewart MAXIMILIAN 03/13 [facility] Outpatient Encounter [id number] 1.03/30 [facility] SELF CARE MNGMENT TRAINING [id number] . Diagnos is: ICD-10- CM R54 Age-rel ated physica l debilit y
ALLCARLOS ALBERTO AVITIA MAXIMILIAN 03/30 [facility] Outpatient Encounter [id number] 1.04/03 [facility] Outpatient Encounter [id number] 1.04/03 [facility] Outpatient Encounter [id number] 1. CARLOS ALBERTO VIVAS MAXIMILIAN 04/03 [facility] QNHP OL DIG ASSMT&MGMT 21+ [id number] Diagnos is: ICD-10- CM Z79.899 Other [place] [facility] [place] (curren t) drug therapy
MIRI SAGE 04/06 [facility] Out[facility] Encounter [id number] 04/07 [facility] HHCP-SERV OF OT,EA 15 MIN [id number] Diagnos is: ICD-10- CM R26.9 Unspeci fied abnorma lities of gait and mobilit y
VAZQUEZ,CAT HY L 04/16 [facility] CASE MANAGEMENT [id number] Diagnos is: ICD-10- CM 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< br/> SILVIANO NaikSHELLEY 04/17 [facility] Outpatient Encounter [id number] 04/20 [facility] Outpatient Encounter [id number] 04/21 [facility] SYNCH AUDIO-ONLY NEW MOD 45 [id number] Diagnos is: ICD-10- CM 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
JENNIFER-JASPREET HYATT,JUVENTINO 04/23 [facility] Out[facility] Encounter [id number] 04/23 [facility] Outpatient Encounter [id number] Diagnos is: ICD-10- CM 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
JUVENTINO BURGER 04/27 [facility] Social History Combined list of available smoking, tobacco, and other social history from Department of Defense and Veterans Affairs facilities. 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 Additional future care activities may be listed in the Assessment and Plan section. Date/Time Care Activity Care Activity Detail Facili ty 04/03/2024 Consult Order [facility] NUTRITION S [facility] OUTPT Cons [employer] [facility] 05/04/2024 Laboratory - Installation & Maintenance Executive ry Order BASIC METABOLIC PANEL (non-fasting) BLOOD (SST-SERUM) SP [facility] 05/04/2024 Laboratory - Installation & Maintenance Executive ry Order LIPID PANEL FASTING BLOOD (SST-SERUM) SP [facility] 05/04/2024 Laboratory - Installation & Maintenance Executive ry Order LIVER FUNCTION BLOOD (SST-SERUM) SP [facility] 05/04/2024 Laboratory - Installation & Maintenance Executive ry Order CBC AND DIFF (AUTO) BLOOD (LAV-BLOOD) SP [facility] 05/04/2024 Laboratory - Installation & Maintenance Executive ry Order HEMOGLOBIN A1C PANEL BLOOD (LAV-BLOOD) SP [facility] 05/04/2024 Laboratory - Installation & Maintenance Executive ry Order TSH BLOOD (SST-SERUM) SP [facility] 05/04/2024 Laboratory - Installation & Maintenance Executive ry Order BNP (Natriuretic Peptide Brain) BLOOD (LAV-PLASMA) SP [facility] 05/04/2024 Laboratory - Installation & Maintenance Executive ry Order CALCIUM BLOOD (SST-SERUM) SP [facility] 05/04/2024 Laboratory - Installation & Maintenance Executive ry Order VITAMIN D (25-OH) BLOOD (SST-SERUM) SP [facility] 05/04/2024 Laboratory - Installation & Maintenance Executive ry Order OCCULT BLOOD FIT X1 SCREEN(IN-HOUSE) STOOL FECES SP [facility]
--- NOTE | 2024-04-30 17:02 | HO.ANESPROP2 ---
[facility] Active Problems Active Problems: All Active Problems Food impaction of esophagus (Acute) Current use of anticoagulant therapy (Acute) Chronic UTI (Chronic) CAD (coronary artery disease) (Acute) PAF (paroxysmal atrial fibrillation) (Acute) Atrial tachycardia (Acute) Overflow incontinence (Acute) Urinary retention (Acute) Hospital discharge follow-up (Acute) Ischemic cardiomyopathy (Acute) Chronic HFrEF (heart failure with reduced ejection fraction) (Acute) Right shoulder pain (Acute) Alcohol abuse (Acute) Hyperlipidemia (Acute) Diabetes mellitus with coincident hypertension (Acute) Bursitis of right hip (Acute) Arthritis of right hip (Acute) Fatigue (Acute) Depression screening negative (Acute) Acute right hip pain (Acute) Strain of knee and leg, right (Acute) Right knee pain (Acute) History of smoking (Acute) Prostate cancer screening (Acute) Medicare annual wellness visit, initial (Acute ~02/22/21) Diabetes mellitus (Acute) Hypertension (Acute) Past Medical History Medical History Hematuria Abdominal pain Sepsis Urinary tract infection associated with cystostomy catheter CAD (coronary artery disease) HFrEF (heart failure with reduced ejection fraction) Acute exacerbation of CHF (congestive heart failure) Hyperlipidemia Alcohol abuse Diabetes mellitus Hypertension Family History Family History Father Liver problem Mother Past heart attack Brother Cancer Sister Cancer Family history of problems with anesthesia: No Surgical History Surgical History History of cardiac cath History of hernia repair History of Problems with Anesthesia: No Social History Social History Household Members: Family and Children Housing: House Do you presently have visiting nurse or other home services: Yes ([facility] & Grandson helps with care.) Unable to assess alcohol history related to: Unknown Alcohol intake: current Alcohol intake frequency: holidays/special occasions only Alcohol type: beer Patient Tobacco Use Status: Former Tobacco user Tobacco use type: Cigarette (quit 57 years ago) Smoked in Last 30 Days: No e-Cigarette/Vaping Use: Never Used Second Hand Smoke Exposure: No Use of substances other than those prescribed or required for medical reasons: No Advance Directives: No Advance Directives Information Provided: Yes service: Yes Current occupational status: retired Current occupation: retired [employer] Current occupational exposures/hazards: No Cognitive needs: No Hearing needs: No Vision needs: Yes (reading glasses) Meds Allergies Allergy/AdvReac Type Severity Reaction Status Date / Time No Known Allergies Allergy Verified 04/30/24 11:01 [No Known Allergies*] Home Medications ?Medication ?Instructions ?Recorded ?Confirmed ?Last Taken ?Type acetaminophen 500 mg tablet 1,000 mg PO Q6H PRN Pain 11/16/23 04/23/24 Unknown History Exam Height,Weight and Vital Signs: Height 6 ft Weight 75.75 kg Last Vital Signs Temp 97.6 F 04/30/24 14:44 Pulse 97 04/30/24 16:42 Resp 15 04/30/24 16:42 BP 111/58 L 04/30/24 16:42 Pulse Ox 96 04/30/24 16:42 O2 Del Method Room Air 04/30/24 16:42 Pertinent Lab Results Pertinent Lab Results: Laboratory Tests 04/30/24 11:21 WBC 14.7 H RBC 3.56 L Hgb 11.3 L Hct 33.4 L MCV 93.8 MCH 31.7 MCHC 33.8 RDW 13.5 Plt Count 331 MPV 9.8 Immature Gran % (Auto) 0.5 H Neut % (Auto) 87.1 H Lymph % (Auto) 7.0 L [place] % (Auto) 4.2 Eos % (Auto) 0.9 Baso % (Auto) 0.3 Lymph # (Auto) 1.0 L [place] # (Auto) 0.6 Eos # (Auto) 0.1 Baso # (Auto) 0.1 Abs Immat Gran (auto) 0.07 H Absolute Neuts (auto) 12.8 H Absolute Nucleated RBC 0.000 Nucleated RBC % (auto) 0.0 PT 13.8 H INR 1.2 H D Sodium 137 Potassium 4.5 Chloride 100 Carbon Dioxide 24 Anion Gap 18 BUN 28 H Creatinine 1.30 Estim Creat Clear Calc 42.8 Estimated GFR 52 Random Glucose 228 H Lactic Acid 1.9 Calcium 9.6 D Magnesium 1.8 Total Bilirubin 0.7 Direct Bilirubin 0.3 AST 20 ALT 10 Alkaline Phosphatase 80 Troponin I High Sens 6.8 D B-Natriuretic Peptide 278 H Total Protein 8.1 H Albumin 4.2 Lipase 26 Influenza Type A (PCR) NEGATIVE Influenza Type B (PCR) NEGATIVE RSV RNA Qual (PCR) NEGATIVE SARS-CoV-2 RNA (RT-PCR) NEGATIVE Airway Mallampati Class: II TM Dist: >3cm Neck ROM: Limited Assessment and Plan Assessment Anesthesia Assessment: Anesthesia Plan Discussed and Chart Reviewed Final Anesthetic Review Family History of Problems with Anesthesia: No History of Problems with Anesthesia: No NPO: Yes ASA Class: III and Emergency Final Preanesthetic Review: No Changes in Pt Med Stat, Meds/Allgs Chart Reviewed, Consent Obtained/Reviewed and Anes Risks/Benef Reviewed Patient Risk: Intermediate Procedure Risk: Intermediate Anesthetic Plan Anesthetic Plan: GA Disposition: Standard PACU
[2024-04-30 17:24] LABS: Glucose, Whole Blood 171 mg/dL (60-115)
--- NOTE | 2024-04-30 18:05 | W.PM.OPN ---
Operative Note Operative Note Date of Service: 04/30/24 Narrative: FLEXIBLE TRANSORAL UPPER GASTROINTESTINAL ENDOSCOPY WITH REMOVAL OF FOOD BOLUS Pre-op diagnosis: Dysphagia Post-op diagnosis: Esophageal obstruction with food bolus Endoscopist:? Bob Rodríguez MD Anesthesia:?GA with ET tube (Dr Aldana) UPPER ENDOSCOPY Consent: Indications for the procedure and potential complications of bleeding, perforation, reaction to medications and missed diagnosis were discussed with the patient and informed consent was obtained. Instrument: Olympus GIF H 190 mid size upper endoscope Monitoring: Vital signs and clinical assessment, continuous EKG monitoring, Pulse oximetry, Carbon Dioxide monitoring and blood pressure monitoring were done throughout the procedure. Procedure: The patient was placed in the left lateral decubitis position and pre-procedure medications were administered and a bite block was placed. The endoscope was inserted into the mouth and advanced under direct vision to the third part of duodenum. A careful inspection was made as the upper endoscope was withdrawn including a retroflexed examination of the proximal stomach; Findings and interventions are described below. Findings: Larynx: ET tube in place Esophagus: Two pieces of meat impacted in the distal esophagus. These were grabbed with a Tri-prong polyp grabber and removed with the endoscope. GE junction at 40 cms. Mildly tortuous esophagus with decreased contractions without stricture or ring. Stomach: Normal gastric mucosa with partially digested food in the fundus which was suctioned.. Grade 2 flap valve on retroflexed examination of the cardia. Duodenum: Normal bulb and descending duodenum Intervention: Biopsies as noted above Impression and Post Procedure Diagnosis: Endoscopy Findings: ESOPHAGUS: Esophageal obstruction due to food impaction - removed. STOMACH: Normal DUODENUM: Normal Plan: Pt needs to chew his food well and have his meals with sips of fluids. Barium swallow as an outpatient.
--- NOTE | 2024-04-30 18:41 | PC.NURSE ---
Pt returns from short stay. Documentation of procedure placed in chart.
== END 2024-04-30 15:35 | disposition home or self-care (01) ==
LOC: HO.ED 14:39 → HO.SSS 15:37
PROVIDERS: Emergency Medicine; Emergency Provider Emergency Medicine; PCP Internal Medicine; Visit Provider Internal Medicine Gastroenterology
PROC: 0DJ08ZZ Inspection of Upper Intestinal Tract, Via Natural or Artificial Opening Endoscopic (ICD-10-PCS; CPT 43235; principal; 2024-04-30 16:30)
DX: T18.128A Food in esophagus causing other injury, initial encounter (principal); W44.F3XA Food entering into or through a natural orifice, initial encounter; K22.4 Dyskinesia of esophagus; Y93.89 Activity, other specified; Y92.019 Unspecified place in single-family (private) house as the place of occurrence of the external cause; Y99.9 Unspecified external cause status; R13.10 Dysphagia, unspecified; R53.1 Weakness; R05.9 Cough, unspecified; Z03.818 Encounter for observation for suspected exposure to other biological agents ruled out; E11.9 Type 2 diabetes mellitus without complications; I11.0 Hypertensive heart disease with heart failure; I50.9 Heart failure, unspecified; E78.5 Hyperlipidemia, unspecified; I48.0 Paroxysmal atrial fibrillation; Z87.891 Personal history of nicotine dependence; Z79.01 Long term (current) use of anticoagulants
CPT/HCPCS: 43247; 0241U; 36415; 70450; 71045; 80048; 80076; 82947; 83605; 83690; 83735; 83880; 84484; 85025; 85610; 87040; 93005; 99285; J1100; J2003; J2405; J2470; J2704

== ENCOUNTER → 2024-04-30 10:50 | Outpatient (BNV) | payer MEDICARE, OTHER, SELFPAY | PROVIDERS: Emergency Provider Emergency Medicine; PCP Internal Medicine; Visit Provider Internal Medicine | DX: R94.31 Abnormal electrocardiogram [ECG] [EKG] (principal) | CPT/HCPCS: 93010 ==

== ENCOUNTER → 2024-04-30 10:50 | Outpatient (BNV) | payer MEDICARE, OTHER, SELFPAY | PROVIDERS: Emergency Provider Emergency Medicine; PCP Internal Medicine; Visit Provider Radiology Diagnostic Radiology | DX: D32.0 Benign neoplasm of cerebral meninges (principal); J44.9 Chronic obstructive pulmonary disease, unspecified | CPT/HCPCS: 71045 ==

== ENCOUNTER → 2024-04-30 15:35 | Outpatient (BNV) | payer MEDICARE, OTHER, SELFPAY | PROVIDERS: Emergency Provider Emergency Medicine; PCP Internal Medicine; Visit Provider Internal Medicine Gastroenterology | DX: T18.128A Food in esophagus causing other injury, initial encounter (principal); W44.F3XA Food entering into or through a natural orifice, initial encounter | CPT/HCPCS: 99222 ==

== ENCOUNTER 2024-05-01 08:35 | Outpatient (AMB) | payer MEDICARE, OTHER, SELFPAY ==
--- NOTE | 2024-05-01 08:45 | A.OFFVIS_ITS ---
Intake Visit Reasons: SPT discomfort Allergies No Known Allergies [No Known Allergies*] Allergy (Verified 05/01/24 08:49) HPI Comments Details: Jeet is a pleasant male. He has a patient of Dr. Wilson. He has seen for the following urologic conditions. - lower urinary tract symptoms - urinary retention Had UTI Has bag attached to upper thigh which is pulling on suprapubic tube Suprapubic tube be organized. Deo strap added. Extension tubing added for drainage to lower leg Shown how to use a clip Also with UTI 11/12 SPT placement Recommend Betadine ointment to catheter daily Has small skin breakdown on upper left rectal cheek Suggest Desitin b.i.d. Lower urinary tract symptoms of the urinary retention Background diabetes and ETOH abuse Initial presentation to emergency room 09/09/2023. Unable to void. Catheter placed. Has had multiple episodes. Found to have UTI initial office visit with 1000 cc in bladder PFS Medical History Hematuria Abdominal pain Sepsis Urinary tract infection associated with cystostomy catheter CAD (coronary artery disease) HFrEF (heart failure with reduced ejection fraction) Acute exacerbation of CHF (congestive heart failure) Hyperlipidemia Alcohol abuse Diabetes mellitus Hypertension Surgical History History of cardiac cath History of hernia repair Family History Father Liver problem Mother Past heart attack Brother Cancer Sister Cancer Social History Household Members: Family and Children Housing: House Do you presently have visiting nurse or other home services: Yes (VNA & Grandson helps with care.) Unable to assess alcohol history related to: Unknown Alcohol intake: current Alcohol intake frequency: holidays/special occasions only Alcohol type: beer Patient Tobacco Use Status: Former Tobacco user Tobacco use type: Cigarette (quit 57 years ago) e-Cigarette/Vaping Use: Never Used Second Hand Smoke Exposure: No service: Yes Current occupational status: retired Current occupation: retired [email or web address] Current occupational exposures/hazards: No Cognitive needs: No Hearing needs: No Vision needs: Yes (reading glasses) Review of Systems Const Denies chills and Denies fever(s) Card Reports no additional complaints and Denies syncope Resp Denies cough GI Denies abdominal pain and Denies heartburn Reports as per HPI and Denies change in libido Neuro Denies syncope Psych Denies change in libido Endo Denies change in libido Physical Exam Const General: cooperative, healthy appearing, comfortable and no acute distress Orientation/consciousness: patient oriented x3 HEENT Face and sinus: Yes normal facial exam Mouth: moist mucous membranes Neck Neck: Yes normal visual inspection, Yes full ROM and Yes trachea midline Chest Chest palpation & inspection: normal inspection of the chest Resp Effort & Inspection: normal respiratory effort, able to speak in complete sentences and no respiratory distress GI Inspection: Yes normal to inspection Back/Spine/Pelvis Cervical Spine: normal cervical lordosis Thoracic/Lumbar Spine: thoracic and lumbar spine normal to inspection Skin General skin exam: no rashes or lesions noted Neuro General: patient oriented x3, gait normal, tone normal and moves all extremities Extrem General: Yes normal to inspection and Yes capillary refill normal Assessment & Plan Assessment & Plan (1) Urinary retention: Code(s): R33.9 - Retention of urine, unspecified Category: Medical (2) Chronic UTI: Code(s): N39.0 - Urinary tract infection, site not specified Category: Medical Plan Follow-up next month as organize Medications: New 2 levofloxacin 250 mg PO DAILY 7 days 7 tabs 0RF methenamine hippurate 1 g PO DAILY 90 days 90 tabs 1RF N39.0 - Urinary tract infection, site not specified Patient Instructions: Imaging studies, laboratory and physical exam results were discussed and reviewed in detail. No major barriers to patient understanding were identified. An opportunity to ask questions regarding the treatment plan was provided. All questions were answered. The patient expressed understanding and agreement with the above treatment plan. The patient is aware they should contact our office by phone for worsening of their current condition or the appearance of new urologic symptoms. Compliance is encouraged with any medications and followup testing that is ordered. It is a privilege to participate in the urologic care of your patient. If you have any questions or concerns regarding treatment for the above conditions, or other urologic issues, please do not hesitate to contact me. The office telephone contact is [phone]. This note is constructed using voice recognition software. While every effort has been made to ensure accuracy legal executive errors may have been included. Yours sincerely, Dr Guillaume Lea MD, [facility] - Urology Providers of Expert, Compassionate Care for the Genitourinary System Coding Level of Care Code Est Pt Level 4 (94423) Diagnoses Urinary retention R33.9 Chronic UTI N39.0
== END 2024-05-01 09:41 | disposition home or self-care (01) ==
PROVIDERS: PCP Internal Medicine; Visit Provider Urology
DX: R33.9 Retention of urine, unspecified (principal); N39.0 Urinary tract infection, site not specified
CPT/HCPCS: 99214

== ENCOUNTER → 2024-05-01 08:35 | Outpatient (BNVA) | payer MEDICARE, OTHER, SELFPAY | PROVIDERS: PCP Internal Medicine; Visit Provider Urology | DX: R33.9 Retention of urine, unspecified (principal); N39.0 Urinary tract infection, site not specified | CPT/HCPCS: 99212 ==

== ENCOUNTER 2024-06-16 13:16 | Outpatient (AMB) | payer MEDICARE, OTHER, SELFPAY ==
--- NOTE | 2024-06-16 13:30 | MHC.OFFVIS ---
Intake Visit Reasons: 6m follow up Intake Note: Patient is present for 6M F/U Urology Medication:TAMSULOSIN,FINASTERIDE,METHENAMINE HIPPURATE Antibiotic Allergy:NONE Blood Thinner:APIXABAN Heel Painter Required: No Allergies No Known Allergies [No Known Allergies*] Allergy (Verified 06/16/24 13:31) HPI Comments Details: Jeet is a pleasant male. He has a patient of Dr. Wilson. He has seen for the following urologic conditions. - lower urinary tract symptoms - urinary retention On finasteride and methenamine with tamsulosin Add vitamin-C Six-month follow-up Suprapubic tube be organized. Deo strap added. Extension tubing added for drainage to lower le 11/12 SPT placement Recommend Betadine ointment to catheter daily Has small skin breakdown on upper left rectal cheek Suggest Desitin b.i.d. Lower urinary tract symptoms of the urinary retention Background diabetes and ETOH abuse Initial presentation to emergency room 09/09/2023. Unable to void. Catheter placed. Has had multiple episodes. Found to have UTI initial office visit with 1000 cc in bladder [facility] Medical History (Updated 05/02/24 @ 00:01 by Giovana Cuello) Hematuria Abdominal pain Sepsis Urinary tract infection associated with cystostomy catheter CAD (coronary artery disease) HFrEF (heart failure with reduced ejection fraction) Acute exacerbation of CHF (congestive heart failure) Hyperlipidemia Alcohol abuse Diabetes mellitus Hypertension Surgical History History of cardiac cath History of hernia repair Family History Father Liver problem Mother Past heart attack Brother Cancer Sister Cancer Social History Household Members: Family and Children Housing: House Do you presently have visiting nurse or other home services: Yes (VNA & Grandson helps with care.) Unable to assess alcohol history related to: Unknown Alcohol intake: current Alcohol intake frequency: holidays/special occasions only Alcohol type: beer Patient Tobacco Use Status: Former Tobacco user Tobacco use type: Cigarette (quit 57 years ago) e-Cigarette/Vaping Use: Never Used Second Hand Smoke Exposure: No service: Yes Current occupational status: retired 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 Current occupational exposures/hazards: No Cognitive needs: No Hearing needs: No Vision needs: Yes (reading glasses) Review of Systems Const Denies chills and Denies fever(s) Card Reports no additional complaints and Denies syncope Resp Denies cough GI Denies abdominal pain and Denies heartburn Reports as per HPI and Denies change in libido Neuro Denies syncope Psych Denies change in libido Endo Denies change in libido Physical Exam Const General: cooperative, healthy appearing, comfortable and no acute distress Orientation/consciousness: patient oriented x3 HEENT Face and sinus: Yes normal facial exam Mouth: moist mucous membranes Neck Neck: Yes normal visual inspection, Yes full ROM and Yes trachea midline Chest Chest palpation & inspection: normal inspection of the chest Resp Effort & Inspection: normal respiratory effort, able to speak in complete sentences and no respiratory distress GI Inspection: Yes normal to inspection Back/Spine/Pelvis Cervical Spine: normal cervical lordosis Thoracic/Lumbar Spine: thoracic and lumbar spine normal to inspection Skin General skin exam: no rashes or lesions noted Neuro General: patient oriented x3, gait normal, tone normal and moves all extremities Extrem General: Yes normal to inspection and Yes capillary refill normal Assessment & Plan Assessment & Plan (1) Urinary retention: Code(s): R33.9 - Retention of urine, unspecified Category: Medical (2) Chronic UTI: Code(s): N39.0 - Urinary tract infection, site not specified Category: Medical Plan Six-month follow-up Medications: New ascorbic acid (vitamin C) 1,000 mg PO DAILY 90 days 90 tabs 1RF N39.0 - Urinary tract infection, site not specified Patient Instructions: This note is constructed using voice recognition software. While every effort has been made to ensure accuracy irrigation tax assessor collector errors may have been included. Imaging studies, laboratory and physical exam results were discussed and reviewed in detail. No major barriers to patient understanding were identified. An opportunity to ask questions regarding the treatment plan was provided. All questions were answered. The patient expressed understanding and agreement with the above treatment plan. The patient is aware they should contact our office by phone for worsening of their current condition or the appearance of new urologic symptoms. Compliance is encouraged with any medications and followup testing that is ordered. It is a privilege to participate in the urologic care of your patient. If you have any questions or concerns regarding treatment for the above conditions, or other urologic issues, please do not hesitate to contact me. The office telephone contact is [phone]. Sincerely, Dr Guillaume Lea MD, [facility] - Urology Compassionate Specialist Care for the Genitourinary System Coding Level of Care Code Est Pt Level 3 (29489) Complex EM visit Add On G2211 Diagnoses Urinary retention R33.9 Chronic UTI N39.0
--- OUTSIDE RECORDS SUMMARY | 2024-06-16 16:16 | XMS_ITS ---
Author Name [facility] ([place] Organization [facility] [place] Address [address] [place] [address] Care Team Providers Care Intensive Care Specialist Name Role Phone JUVENTINO MARTIN Primary Care Provider Unav ailable PIEDAD, SHELLEY Unavailable Unavailable DIANE SANTOS Unavailable Unavailable CHAPUT, ARASELI Unavailable Unavailable FEINIKKY, WOODY Unavailable Unavailable ALLSOP, MINI Unavailable Unavailable BHARATI VEGA Unavailable Unavailable TAYLOR, [...] PART A Apr 22, 2001 PART A [id number] JENIFER ANAYA PATIENT MEDICARE (WNR) MEDICARE (M) PART B Apr 22, 2001 PART B [id number] JENIFER ANAYA PATIENT [place] [employer] MEDIGAP PLAN F May 11, 2008 PLANF [id number] JENIFER ANAYA PATIENT Selected Encounter This section includes the information on record at [place] for the Encounter. Date/Time Encounter Type Encounter Description Reason Provider Source Jun 11, 2024 02:53 PM SELF CARE MNGMENT TRAINING [facility] Nursing (RN / LP) ICD-10-CM N18.9 Chronic kidney disease, unspecified ALLSOPMARIXAMINI IHE Encounter Template Text not used by [place] Assessments - Encounter Diagnoses This section includes the primary and secondary diagnoses documented for the Encounter. Date/Time Primary/Secondary Diagnosis Diagnosis Name Provider Source Jun 16, 2024 04:10 PM PRIMARY Chronic kidney disease, unspecified ALLSOP,MINI [facility] [place] [facility] Jun 16, 2024 04:10 PM SECONDARY Age-related physical debility ALLSOP,MINI [facility] [place] [facility] Jun 16, 2024 04:10 PM SECONDARY Athscl heart disease of [place] coronary artery w/o ang pctrs ALLSOPMINI [facility] [place] [facility] Jun 16, 2024 04:10 PM SECONDARY Encounter for immunization ALLSOP,MINI [facility] [place] [facility] Jun 16, 2024 04:10 PM SECONDARY Essential (primary) hypertension ALLSOP,MINI [facility] [place] [facility] Jun 16, 2024 04:10 PM SECONDARY Heart failure, unspecified ALLSOP,MINI [facility] [place] [facility] Jun 16, 2024 04:10 PM SECONDARY prison (current) use of anticoagulants ALLSOP,MINI [facility] [place] [facility] Jun 16, 2024 04:10 PM SECONDARY Other specified counseling ALLSOP,MINI [facility] [place] [facility] Jun 16, 2024 04:10 PM SECONDARY Type 2 diabetes mellitus without complications ALLSOP,MINI [facility] [place] [facility] Jun 16, 2024 04:10 PM SECONDARY Unspecified atrial fibrillation ALLSOP,MINI [facility] [place] [facility] Jun 16, 2024 04:10 PM SECONDARY Unspecified osteoarthritis, unspecified site ALLSOP,MINI [facility] [place] [facility] Plan of Treatment: Future Appointments (+ 6 months) and Future Tests (+/- 45 days) The Plan of Treatment section includes future care activities for the patient from all [place] treatmentfacilities. This section includes future appointments and [...] of theEncounter. The data comes from all [place] treatment facilities. Test Date/Time Test Type Test Details Facility Name May 04, 2024 12:00 AM Laboratory - Chemi stry Order OCCULT BLOOD FIT X1 SCREEN(IN-HOUSE) STOOL FECES SP [facility] Lab Results: +/- 30 days of the encounter This section includes the Chemistry and Hematology Lab Results on record with [place] for the patient. Radiology Reports and Pathology Reports are provided separately, in subsequent sections. Lab Results This section contains the Chemistry/Hematology Results that were resulted 30 days before or 30 daysafter the date of the Encounter. Date/Time Source Result Type Result - Unit Interpretation Reference Range Comment May 15, 2024 12:30 PM [facility] BASIC METABOLIC PANEL (non-fasting) Specimen Type: SERUM No comment entered. Ordering Provider: Neva MARTIN Report Released Date/Time: Apr 27, 2024 03:55 PM Reporting Lab: [address] [address] Performing Lab: [address] [address] UREA NITROGEN 29 mg/dL H 7-25 GLUCOSE 285 mg/dL H 65-100 SODIUM 130 mmol/L L 135-145 POTASSIUM 4.9 mmol/L 3.5-5.0 CHLORIDE 96 mmol/L L 100-110 CO2 23 meq/L 20-30 CREATININE, Serum 1.51 mg/dL H 0.50-1.40 eGFR(CKD-EPI 2020) 44 mL/min L >60 May 15, 2024 12:30 PM [facility] LIPID PANEL FASTING Specimen Type: SERUM No comment entered. Ordering Provider: Neva MARTIN Report Released Date/Time: Apr 27, 2024 03:55 PM Reporting Lab: [facility] [address] [facility] [address] Performing Lab: [address] [address] CHOLESTEROL 101 mg/dL TRIGLYCERIDE 87 mg/dL 0-150 LDL calculated 45 mg/dL 0-129 CHOL/HDL 2.6 HDL CHOLESTEROL 39 mg/dL L 40-60 May 15, 2024 12:30 PM [facility] LIVER FUNCTION Specimen Type: SERUM No comment entered. Ordering Provider: Neva MARTIN Report Released Date/Time: Apr 27, 2024 03:55 PM Reporting Lab: [address] [address] Performing Lab: [address] [address] PROTEIN,TOTAL 7.2 g/dL 6.0-8.3 ALBUMIN 3.3 g/dL L 3.5-5.0 ALKALINE PHOSPHATASE 92 U/L 40-150 AST 10 U/L 5-34 ALT 11 U/L BILIRUBIN, TOTAL 0.5 mg/dL 0.2-1.2 May 15, 2024 12:30 PM [facility] CBC AND DIFF (AUTO) Specimen Type: BLOOD No comment entered. Ordering Provider: Neva MARTIN Report Released Date/Time: Apr 27, 2024 03:55 PM Reporting Lab: [address] [address] Performing Lab: [address] [address] WBC 14.22 10*3/uL H 4.50-11.00 RBC 3.45 10*6/uL L 4.23-5.66 HGB 10.7 g/dL L 12.8-17 HCT 32.4 L 39.2-50.4 MCV 93.9 fL 82-99 MCHC 33.0 g/dL 30.8-35.1 PLT 311 10*3/uL 140-360 RDW-CV 13.2 12.0-16.0 MONO, ABS 0.89 10*3/uL 0.30-1.10 MCH 31.0 pg 26.2-32.6 NEUT % 83.8 H 43.7-75.8 LYMPH % 8.2 L 14.0-42.3 MONO % 6.3 5.1-13.7 EOS % 0.7 0.4-6.8 BASO % 0.3 0.1-2.0 NEUT, ABS 11.92 10*3/uL H 2.20-7.60 LYMPH, ABS 1.17 10*3/uL 1.00-3.20 EOS, ABS 0.10 10*3/uL 0.03-0.44 BASO, ABS 0.04 10*3/uL 0.01-0.13 IMMATURE GRAN % 0.7 0.0-0.7 IMMATURE GRAN, ABS 0.10 10*3/uL H 0.00-0.06 NRBC % 0.0 0.0-0.0 NRBC, ABS 0.00 10*3/uL 0.00-0.00 May 15, 2024 12:30 PM [facility] HEMOGLOBIN A1C PANEL Specimen Type: BLOOD Comment: Values obtained from A1C measurements can vary. For atypical A1C assays, a reported value of 7.0 could actually be between 6.72 and 7.28 if measured by a reference method. A reported value of 9.0 could actually be between 8.73 and 9.27. Ref: http://www.ngs p.org/CAPdata. asp Ordering Provider: Neva MARTIN Report Released Date/Time: Apr 27, 2024 03:55 PM Reporting Lab: [address] [address] Performing Lab: [address] [address] HEMOGLOBIN A1C 7.0 H 4.0-5.6 May 15, 2024 12:30 PM [facility] TSH Specimen Type: SERUM No comment entered. Ordering Provider: Neva MARTIN Report Released Date/Time: Apr 27, 2024 03:55 PM Reporting Lab: [facility] [place] [facility] [address] [facility] [address] Performing Lab: [place] [facility] [address] [address] TSH 0.40 u[IU]/mL 0.35-5.00 May 15, 2024 12:30 PM [facility] BNP (Natriuretic Peptide Brain) Specimen Type: PLASMA No comment entered. Ordering Provider: Neva MARTIN Report Released Date/Time: Apr 27, 2024 04:00 PM Reporting Lab: [facility] [address] [address] Performing Lab: [facility] [address] [address] BNP (Natriuretic Peptide Brain) 143 pg/mL H 10-100 May 15, 2024 12:30 PM [facility] CALCIUM Specimen Type: SERUM No comment entered. Ordering Provider: Neva MARTIN Report Released Date/Time: Apr 28, 2024 02:23 PM Reporting Lab: [facility] [address] [address] Performing Lab: [facility] [address] CALCIUM 8.8 mg/dL 8.5-10.2 May 15, 2024 12:30 PM [facility] VITAMIN D (25-OH) Specimen Type: SERUM No comment entered. Ordering Provider: Neva MARTIN Report Released Date/Time: Apr 28, 2024 02:23 PM Reporting Lab: [facility] [address] [address] Performing Lab: [facility] [address] VITAMIN D (25-OH) 28 ng/mL 20-50 Vital Signs: All taken on the encounter date This section contains inpatient and outpatient Vital Signs collected on the date of the Encounter. Date/Time Temperature Pulse Blood Pressure Respiratory Rate SP02 Pain Height Weight Body Mass Index Source Jun 11, 2024 12:59 PM 98.2 81 106/70 18 98 1 [place] [facility] [place] [place] [facility] Immunizations: All administered on the encounter date This section contains immunizations associated to the Encounter. Immunization Series Date Issued Reaction Comments PNEUMOCOCCAL CONJUGATE PCV20 , POLYSACCHARIDE CEX582 CONJUGATE, ADJUVANT, PF Jun 11, 2024 RSV, RECOMBINANT, PROTEIN SZYMANSKI BUNIT RSVPREF3, ADJUVANT RECONSTITUTED, 0.5 ML, PF Jun 11, 2024 Encounter Notes: All associated encounter notes This section contains the clinical notes associated to the Encounter. Date/Time Encounter Note(s) Provider Source Jun 11, 2024 02:53 PM [facility] NURSING NOTE: LOCAL TITLE: [facility] RN PROGRESS NOTE STANDARD TITLE: [facility] NURSING NOTE DATE OF NOTE: JUN 11, 2024@14:53 ENTRY DATE: JUN 16, 2024@14:54:03 AUTHOR: MINI MURO EXP COSIGNER: URGENCY: STATUS: COMPLETED Nursing Progress Note Active and Recently Outpatient Medications (including Supplies): Active Outpatient Medications Status 1) ACETAMINOPHEN 500MG TAB TAKE TWO TABLETS BY MOUTH TWICE ACTIVE DAILY NEEDED Indication: FOR PAIN 2) AMIODARONE HCL 200MG TAB TAKE ONE TABLET BY MOUTH ONCE DAILY ACTIVE (S) Indication: FOR VENTRICULAR FIBRILLATION 3) APIXABAN 5MG TAB TAKE ONE-HALF TABLET BY MOUTH EVERY 12 ACTIVE HOURS FOR Indication: ATRIAL FIBRILLATION 4) ATORVASTATIN CALCIUM 40MG TAB TAKE ONE TABLET BY MOUTH AT ACTIVE BEDTIME Indication: FOR HIGH CHOLESTEROL 5) DEPEND UNDERWEAR,MAXIMUM,MEN LARGE USE 1 BRIEF DIRECTED ACTIVE TWICE DAILY NEEDED 6) FINASTERIDE 5MG TAB TAKE ONE TABLET BY MOUTH ONCE DAILY ACTIVE Indication: FOR ENLARGED PROSTATE 7) FUROSEMIDE 20MG TAB TAKE ONE TABLET BY MOUTH ONCE DAILY TO ACTIVE REMOVE FLUID/CONTROL BLOOD PRESSURE Indication: FOR HIGH BLOOD PRESSURE 8) METFORMIN HCL 500MG 24HR SA TAB TAKE TWO TABLETS BY MOUTH ACTIVE TWICE DAILY Indication: FOR TYPE 2 DIABETES MELLITUS 9) SOLIFENACIN SUCCINATE 5MG TAB TAKE ONE TABLET BY MOUTH ONCE ACTIVE DAILY Indication: FOR OVERACTIVE BLADDER 10) SPIRONOLACTONE 25MG TAB TAKE ONE TABLET BY MOUTH ONCE DAILY ACTIVE Indication: FOR HEART FAILURE 11) TAMSULOSIN HCL 0.4MG CAP TAKE ONE CAPSULE BY MOUTH ONCE ACTIVE DAILY Indication: FOR ENLARGED PROSTATE Inactive Outpatient Medications Status 1) MEDICATION DISPOSAL PATIENT PKT USE 1 ENVELOPE DIRECTED ONE TIME TO DISPOSE OF UNUSED MEDICATIONS Active Non-VA Medications Status 1) Non-VA METHENAMINE HIPPURATE 1GM TAB 1GM BY MOUTH ONCE DAILY ACTIVE Indication: FOR URINARY TRACT INFECTION PREVENTION 2) Non-VA METHENAMINE HIPPURATE 1GM TAB 1GM BY MOUTH ONCE DAILY ACTIVE Indication: FOR URINARY TRACT INFECTION PREVENTION 14 Total Medications MEDICATION REVIEW Medication review completed during home visit. The was given the opportunity to discuss and ask questions about all prescription medications as well as dietary and herbal supplements, vitamins, OTC medications, etc. Currently the is taking his/her medications as per the active orders in the electronic record. A copy of the active medication list was left in patient's home at time of visit. [place] identified by: Address, Facial Recognition Length of visit in home: 50min Problem addressed for this visit: suprapubic tube, AFIB, DM, hx CHF NURSING SUMMARY: sitting in his recliner in the living room when RN arrived. At our last visit, shared that his grandson was admitted for PTSD to the [facility] in [place]. He tells me today that his grandson is now home and is 'doing better but has to keep taking his medicine to stay that way. I worry he will stop them again'. Supportive listening provided and was able to express his thoughts. [facility] was providing CUT OFF SAW OPERATOR care but has stopped for the time being while he works on his MH, agency has been sending a WAREHOUSE SUPERVISOR 3RD SHIFT whom kaela is pleased with. Valencia expresses frustration w/ his SPT, 'had I known that it would be like this I wouldn't have done it'. He feels he was not well informed regarding the extent it would affect him and his daily life. He conts w/ VNA visits every 3 weeks and PRN for SPT changes. Due to see his Urologist in June and plans to discuss options to have catheter removed. SPT insertion site noted to have area of hypergranulation tissue at 11:00 which has tendency to bleed small amts intermittently; will be addressed at Urology f/u. No s/s infection to insertion site, cleanses daily w/ water and soap, HOME OFFICE CLAIM SPECIALIST. Urine is clear yellow w/out any s/s infection. Valencia is using leg bag during the day and night bag HS. Changes bags indep, clean technique reviewed w/ stated understanding. Prevnar 20 and RSV vaccine both administered to left deltoid per 's request, without issue. Blood Pressure: 106/70 (06/11/2024 12:59) Pulse: 81 (06/11/2024 12:59) Respiration: 18 (06/11/2024 12:59) Temperature: 98.2 F [36.8 C] (06/11/2024 12:59) Pain Score: 1 (06/11/2024 12:59) EXAMINATION: Lungs: clear throughout, no cough or SOB Edema: no edema HR: HRR, denies any cp or pressure Bowel/Bladder: Daily BM w/out issues. assess as noted above Skin: warm, dry intact If pain score is above 0/10: Are you having any new pain or worsening chronic pain? No Are you satisfied with your current pain management plan? Yes - Continue with your current pain management plan. Home Safety FALLS NO INFECTIONS NO ER/HOSPITALIZATIONS NO Teaching/goals: will remain medically stable and safe at home w/ support from family, WAREHOUSE SUPERVISOR 3RD SHIFT, VNA and [facility] team Patient verbalizes understanding to above and will call with any concerns or changes in condition. For emergent care call 911. Plan for next visit: revisit on/around 07/10/24 for cv/cp assess, gu assess, coping, cont to update vaccines as appropriate Pneumococcal Conjugate Vaccine (PCV15/PCV20/PCV21): PCV20 (Prevnar 20) Administered: PNEUMOCOCCAL CONJUGATE PCV20, POLYSACCHARIDE [id number] CONJUGATE, ADJUVANT, PF Date Administered: Jun 11, 2024 14:53 Material Lister: [employer] Lot: [id number] Exp Date: Jan 19, 2025 NDC: [id number] Admin Route/Site: INTRAMUSCULAR/LEFT DELTOID Dosage: 0.5mL Vaccine Information Statement(s): PNEUMOCOCCAL CONJUGATE ([id number]) VIS August 31, 2022 (FAROESE) Order By: Policy Administered By: Mini Muro The Pneumococcal Vaccine Information Statement (VIS) was reviewed with the patient/caregiver which lists the benefits and risks of not receiving the Pneumococcal vaccine. The patient/caregiver denied any prior severe reaction to this vaccine or its components or a severe allergic reaction such as anaphylaxis to any vaccine or any injectable therapy. The patient/caregiver gave verbal consent to receive the vaccine. RSV Immunization: Respiratory Syncytial Virus (RSV) Vaccine: RSV vaccine administered today. Administered: RSV, RECOMBINANT, PROTEIN SUBUNIT RSVPREF3, ADJUVANT RECONSTITUTED, 0.5 ML, PF Date Administered: Jun 11, 2024 14:53 Material Lister: [employer] Lot: [id number] Exp Date: Feb 13, 2025 NDC: [id number] Admin Route/Site: INTRAMUSCULAR/LEFT DELTOID Dosage: 0.5mL Vaccine Information Statement(s): RSV (RESPIRATORY SYNCYTIAL VIRUS) VACCINE VIS Feb 06, 2024 (FAROESE) Order By: Policy Administered By: Mini Muro Vaccine Information Sheet (VIS) was given to the patient/caregiver, education regarding adverse reactions was discussed, as well as barriers to learning, if any, were acknowledged. Home Telehealth (CCHT) Referral: Patient declines participation in CCHT Program at this time. /michell/ MINI MURO RN, BSN [facility] COMPACT ASSEMBLER Signed: 06/16/2024 16:10 MINI MURO CNTRL WSN [facility]
--- OUTSIDE RECORDS SUMMARY | 2024-06-16 16:16 | XMS_ITS ---
Author Name Department of Vetera [facility] ([place]) Organization [facility] [place] [place] Address [address] [place] [address] Care Team Providers Care Automatic Packer Operator Name Role Phone JUVENTINO MARTIN Primary Care Provider Unav ailable PIEDAD, SHELLEY Unavailable Unavailable DIANE SANTOS Unavailable Unavailable CHAPUT, ARASELI Unavailable Unavailable FEINIKKY, WOODY Unavailable Unavailable ALLSOP, LISA Unavailable Unavailable BHARATI VEGA Unavailable Unavailable [...] PART A Apr 22, 2001 PART A [id number] JENIFER ANAYA PATIENT MEDICARE (WNR) MEDICARE (M) PART B Apr 22, 2001 PART B [id number] JENIFER ANAYA PATIENT [employer] MED[employer] PLAN F May 11, 2008 PLANF [id number] JENIFER ANAYA PATIENT Selected Encounter This section includes the information on record at [place] for the Encounter. Date/Time Encounter Type Encounter Description Reason Pro vider Source May 22, 2024 04:08 PM Outpatient Encounter [facility] Nursing (RN / LP) IHE Encounter Template Text not used by [place] Plan of Treatment: Future Appointments (+ 6 months) and Future Tests (+/- 45 days) The Plan of Treatment section includes future care activities for the patient from all [place] treatmentfacilities. This section includes future appointments and [...] of theEncounter. The data comes from all [place] treatment facilities. Test Date/Time Test Type Test Details Facility Name May 04, 2024 12:00 AM Laboratory - Chemi stry Order OCCULT BLOOD FIT X1 SCREEN(IN-HOUSE) STOOL FECES SP [facility] Lab Results: +/- 30 days of the encounter This section includes the Chemistry and Hematology Lab Results on record with [place] for the patient. Radiology Reports and Pathology Reports are provided separately, in subsequent sections. Lab Results This section contains the Chemistry/Hematology Results that were resulted 30 days before or 30 daysafter the date of the Encounter. Date/Time Source Result Type Result - Unit Interpretation Reference Range Comment May 15, 2024 12:30 PM [facility] BASIC METABOLIC PANEL (non-fasting) Specimen Type: SERUM No comment entered. Ordering Provider: Neva MARTIN Report Released Date/Time: Apr 27, 2024 03:55 PM Reporting Lab: [facility] [address] [facility] [address] Performing Lab: [facility] [address] [facility] [address] UREA NITROGEN 29 mg/dL H 7-25 GLUCOSE 285 mg/dL H 65-100 SODIUM 130 mmol/L L 135-145 POTASSIUM 4.9 mmol/L 3.5-5.0 CHLORIDE 96 mmol/L L 100-110 CO2 23 meq/L 20-30 CREATININE, Serum 1.51 mg/dL H 0.50-1.40 eGFR(CKD-EPI 2020) 44 mL/min L >60 May 15, 2024 12:30 PM [facility] LIPID PANEL FASTING Specimen Type: SERUM No comment entered. Ordering Provider: Neva MARTIN Report Released Date/Time: Apr 27, 2024 03:55 PM Reporting Lab: [address] [address] Performing Lab: [address] [address] CHOLESTEROL 101 mg/dL TRIGLYCERIDE 87 mg/dL 0-150 LDL calculated 45 mg/dL 0-129 CHOL/HDL 2.6 HDL CHOLESTEROL 39 mg/dL L 40-60 May 15, 2024 12:30 PM [facility] LIVER FUNCTION Specimen Type: SERUM No comment entered. Ordering Provider: Neva MARTIN Report Released Date/Time: Apr 27, 2024 03:55 PM Reporting Lab: [address] [address] Performing Lab: [address] [address] PROTEIN,TOTAL 7.2 g/dL 6.0-8.3 ALBUMIN 3.3 g/dL L 3.5-5.0 ALKALINE PHOSPHATASE 92 U/L 40-150 AST 10 U/L 5-34 ALT 11 U/L BILIRUBIN, TOTAL 0.5 mg/dL 0.2-1.2 May 15, 2024 12:30 PM [facility] CBC AND DIFF (AUTO) Specimen Type: BLOOD No comment entered. Ordering Provider: Neva MARTIN Report Released Date/Time: Apr 27, 2024 03:55 PM Reporting Lab: [address] [address] Performing Lab: [address] [address] WBC 14.22 10*3/uL H 4.50-11.00 RBC 3.45 [...] 10*3/uL 0.00-0.00 May 15, 2024 12:30 PM [facility] HEMOGLOBIN A1C PANEL Specimen Type: BLOOD [...] Apr 27, 2024 03:55 PM Reporting Lab: [address] [address] Performing Lab: [address] [address] HEMOGLOBIN A1C 7.0 H 4.0-5.6 May 15, 2024 12:30 PM [facility] [place] [facility] TSH Specimen Type: SERUM No comment entered. Ordering Provider: Neva MARTIN Report Released Date/Time: Apr 27, 2024 03:55 PM Reporting Lab: [facility] [place] [address] [address] Performing Lab: [place] [facility] [place] [facility] [address] [facility] [address] TSH 0.40 u[IU]/mL 0.35-5.00 May 15, 2024 12:30 PM [facility] BNP (Natriuretic Peptide Brain) Specimen Type: PLASMA No comment entered. Ordering Provider: Neva MARTIN Report Released Date/Time: Apr 27, 2024 04:00 PM Reporting Lab: [facility] [place] [address] [address] Performing Lab: [place] [facility] [address] [address] BNP (Natriuretic Peptide Brain) 143 pg/mL H 10-100 May 15, 2024 12:30 PM [facility] CALCIUM Specimen Type: SERUM No comment entered. Ordering Provider: Neva MARTIN Report Released Date/Time: Apr 28, 2024 02:23 PM Reporting Lab: [facility] [place] [address] [address] Performing Lab: [facility] [address] [address] CALCIUM 8.8 mg/dL 8.5-10.2 May 15, 2024 12:30 PM [facility] VITAMIN D (25-OH) Specimen Type: SERUM No comment entered. Ordering Provider: Neva MARTIN Report Released Date/Time: Apr 28, 2024 02:23 PM Reporting Lab: [facility] [address] [address] Performing Lab: [place] [facility] [place] [facility] [address] [facility] [address] VITAMIN D (25-OH) 28 ng/mL 20-50 Encounter Notes: All associated encounter notes This section contains the clinical notes associated to the Encounter. Date/Time Encounter Note(s) Provider Source May 22, 2024 04:08 PM [facility] NOTE: LOCAL TITLE: [facility] POST INFECTION ASSESSMENT NOTE STANDARD TITLE: [facility] NOTE DATE OF NOTE: MAY 22, 2024@16:08 ENTRY DATE: MAY 22, 2024@16:08:41 AUTHOR: LISA MURO EXP COSIGNER: URGENCY: STATUS: COMPLETED POST INFECTION ASSESSMENT NOTE Date of Infection: Apr Lead Security Officer: SANAM Muro Type of Infection: UTI Patient Seen in ER: Yes [ ] No [X] Culture Sent: Yes [ ] No [ ] unknown Facility Reporting Culture Results: Abx Prescribed: Yes [X] No [ ] Name of Antibiotic: Levofloxacin 250mg po daily x 7 days and Methenamine 1gm po daily Ordering Provider: Dr Lea, [facility] Urology (Please check all that apply) Risk Factors Possibly Contributing to Infection: [ ] Surgical Procedure [X] BPH/Urinary Retention [ ] COPD [ ] Vascular Insufficiency/Edema [ ] Kellogg Catheter [X] Suprapubic Catheter [ ] Intermittent Catheterization [ ] Other Was [place] discharged from inpatient status 48-72 hours prior to infection? Yes [ ] No [X] If yes, where: Infection Resolved: Yes [X] No [ ] Current Status of Patient: [X] Home [ ] Hospital (Please check all that apply) Interventions: [X] F/U Medical Visit [X] PCP Notified [X] PSA Notified [X] Education was provided to patient and/or family regarding infection/infection control /michell/ LISA MURO RN, BSN [facility] FINANCIAL SERVICES REP Signed: 05/22/2024 16:12 Receipt Acknowledged By: 05/22/2024 16:18 /michell/ WOODY PHIPPS [facility] BASKET MAKER 05/25/2024 08:42 /michell/ JUVENTINO MARTIN RN,MSN,PROJECT DRILLING ENGINEER-C [facility] NURSE PRACTITIONER LISA MURO [facility]
--- OUTSIDE RECORDS SUMMARY | 2024-06-16 16:16 | XMS_ITS | Encounter Summary ---
Author Name [facility] [facility] Address [address] [place] [address] Care Team Providers Care Humane Officer Name Role Phone JUVENTINO MARTIN Primary Care [...] PART A Apr 22, 2001 PART A [id number] JENIFER MENA PATIENT MEDICARE (WNR) MEDICARE (M) PART B Apr 22, 2001 PART B [id number] JENIFER MENA PATIENT [employer] PL[employer] F May 11, 2008 PLANF [id number] JENIFER MENA PATIENT Selected Encounter This section includes the information on record at [place] for the Encounter. 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 Date/Time Primary/Secondary Diagnosis Diagnosis Name Provider Source May 28, 2024 08:17 AM PRIMARY Problem related to unspecified psychosocial circumstances Eliza HERBERT [facility] Plan of Treatment: Future Appointments (+ 6 months) and Future Tests (+/- 45 days) The Plan of Treatment section includes future care activities for the patient from all [place] treatmentfacilities. This section includes future appointments and [...] of theEncounter. The data comes from all [place] treatment facilities. Test Date/Time Test Type Test Details Facility Name May 04, 2024 12:00 AM Laboratory - Chemi nik Order OCCULT BLOOD FIT X1 SCREEN(IN-HOUSE) STOOL FECES SP [facility] Lab Results: +/- 30 days of the encounter This section includes the Chemistry and Hematology Lab Results on record with [place] for the patient. Radiology Reports and Pathology Reports are provided separately, in subsequent sections. Lab Results This section contains the Chemistry/Hematology Results that were resulted 30 days before or 30 daysafter the date of the Encounter. Date/Time Source Result Type Result - Unit Interpretation Reference Range Comment May 15, 2024 12:30 PM [facility] BASIC METABOLIC PANEL (non-fasting) Specimen Type: SERUM No comment entered. Ordering Provider: Neva MARTIN Report Released Date/Time: Apr 27, 2024 03:55 PM Reporting Lab: [address] [address] Performing Lab: [address] [place] [address] UREA NITROGEN 29 mg/dL H 7-25 GLUCOSE 285 mg/dL H 65-100 SODIUM 130 mmol/L L 135-145 POTASSIUM 4.9 mmol/L 3.5-5.0 CHLORIDE 96 mmol/L L 100-110 CO2 23 meq/L 20-30 CREATININE, Serum 1.51 mg/dL H 0.50-1.40 eGFR(CKD-EPI 2020) 44 mL/min L >60 May 15, 2024 12:30 PM [facility] LIPID PANEL FASTING Specimen Type: SERUM No comment entered. Ordering Provider: Neva MARTIN Report Released Date/Time: Apr 27, 2024 03:55 PM Reporting Lab: [address] [address] Performing Lab: [address] [address] CHOLESTEROL 101 mg/dL TRIGLYCERIDE 87 mg/dL 0-150 LDL calculated 45 mg/dL 0-129 CHOL/HDL 2.6 HDL CHOLESTEROL 39 mg/dL L 40-60 May 15, 2024 12:30 PM [facility] LIVER FUNCTION Specimen Type: SERUM No comment entered. Ordering Provider: Neva MARTIN Report Released Date/Time: Apr 27, 2024 03:55 PM Reporting Lab: [address] [address] Performing Lab: [address] [address] PROTEIN,TOTAL 7.2 g/dL 6.0-8.3 ALBUMIN 3.3 g/dL L 3.5-5.0 ALKALINE PHOSPHATASE 92 U/L 40-150 AST 10 U/L 5-34 ALT 11 U/L BILIRUBIN, TOTAL 0.5 mg/dL 0.2-1.2 May 15, 2024 12:30 PM [facility] CBC AND DIFF (AUTO) Specimen Type: BLOOD No comment entered. Ordering Provider: Neva MARTIN Report Released Date/Time: Apr 27, 2024 03:55 PM Reporting Lab: [facility] [address] [facility] [address] Performing Lab: [facility] [address] [facility] [address] WBC 14.22 10*3/uL H 4.50-11.00 RBC 3.45 [...] 10*3/uL 0.00-0.00 May 15, 2024 12:30 PM [facility] HEMOGLOBIN A1C PANEL Specimen Type: BLOOD Comment: [...] Apr 27, 2024 03:55 PM Reporting Lab: [place] [facility] [place] [facility] [address] [facility] [address] Performing Lab[facility] [place] [facility] [address] [facility] [address] HEMOGLOBIN A1C 7.0 H 4.0-5.6 May 15, 2024 12:30 PM [facility] [place] [facility] TSH Specimen Type: SERUM No comment entered. Ordering Provider: Neva MARTIN Report Released Date/Time: Apr 27, 2024 03:55 PM Reporting Lab: [place] [facility] [place] [facility] [address] [facility] [address] Performing Lab: [place] [facility] [place] [address] [address] TSH 0.40 u[IU]/mL 0.35-5.00 May 15, 2024 12:[address] [facility] BNP (Natriuretic Peptide Brain) Specimen Type: PLASMA No comment entered. Ordering Provider: Neva MARTIN Report Released Date/Time: Apr 27, 2024 04:00 PM Reporting Lab: [place] [facility] [place] [facility] [address] [facility] [address] Performing Lab: [place] [facility] [address] [address] BNP (Natriuretic Peptide Brain) 143 pg/mL H 10-100 May 15, 2024 12:[address] [facility] CALCIUM Specimen Type: SERUM No comment entered. Ordering Provider: Neva MARTIN Report Released Date/Time: Apr 28, 2024 02:23 PM Reporting Lab: [place] [facility] [place] [facility] [address] [facility] [address] Performing Lab: [place] [facility] [place] [address] [address] CALCIUM 8.8 mg/dL 8.5-10.2 May 15, 2024 12:30 PM [facility] VITAMIN D (25-OH) Specimen Type: SERUM No comment entered. Ordering Provider: Neva MARTIN Report Released Date/Time: Apr 28, 2024 02:23 PM Reporting Lab: [facility] [address] [facility] [address] Performing Lab: [facility] [address] [facility] [address] VITAMIN D (25-OH) 28 ng/mL 20-50 Encounter Notes: All associated encounter notes This section contains the clinical notes associated to the Encounter. Date/Time Encounter Note(s) Provider Source May 27, 2024 09:00 AM [facility] E & [facility] NOTE: LOCAL TITLE: [facility] SOCIAL WORK NOTE STANDARD TITLE: [facility] E & M NOTE DATE OF NOTE: MAY 27, 2024@09:00 ENTRY DATE: MAY 27, 2024@14:11:28 AUTHOR: SHELLEY HERBERT EXP COSIGNER: URGENCY: STATUS: COMPLETED Active Problem Chronic kidney disease N18.9 05/18/2024 JUVENTINO MARTIN Ischemic congestive cardiomyopathy 04/23/2024 JUVENTINO MARTIN Lower urinary tract symptoms due to 04/23/2024 JUVENTINO MARTIN History of cardiac catheterization 04/07/2024 JUVENTINO MARTIN Frail elderly R54. 02/25/2024 JUVENTINO MARTIN Long-term current use of anticoagul 02/06/2024 CHRIS CHUN CHF - Congestive Heart Failure ([facility] 01/16/2024 IZAIAH HANKINS HTN - Hypertension ([facility] [id number]) I 01/16/2024 IZAIAH HANKINS Hyperlipidemia ([facility] [id number]) E78.5 01/16/2024 IZAIAH HANKINS Diabetes Mellitus Type 2 ([facility] [id number] 01/16/2024 IZAIAH HANKINS CAD - Coronary Artery Disease ([facility] 01/16/2024 IZAIAH HANKINS OA - Osteoarthritis ([facility] [id number]) 01/16/2024 IZAIAH HANKINS AF - Atrial fibrillation I48.91 01/16/2024 IZAIAH HANKINS Under care of multiple providers R6 04/28/2024 JUVENTINO MARTIN Length of Visit: 60 minutes Follow up visit conducted with [place] to assist in coping with chronic health issues and isolation secondary to homebound status. Mr. Mena continues to have difficulty coping with decline in ambulation and need for a walker. His goal is to be able to walk without it but he realizes this might not be possible and tries to accept where he is at. Active listening, support and validation provided. 's grandson is currently hospitalized for MH problems. He is expected to return home in possibly a few weeks. Son continues to live with him and is home evenings. His COMMODITY DIRECTOR is working out well and she is very helpful to him. He continues with [facility] for catheter management--they are coming weekly now. receives MOW and has Guardian Alert. He feels he is able to manage but looking forward to when his grandson comes home. Normally he is home most of the time. [place] spoke about the passing of his 9 years ago and was able to express his grief. He hasn't moved her recliner since her and is comforted by looking at it. He also expressed grief over the passing of all of his siblings--the most recent 3 months ago. He reported good rapport with all and was able to reminisce about growing up together. [place] reported benefiting from visit and plan was made to visit again next month. Plan of Care: --Follow up visit June 24 for continued support. /michell/ [facility] Air Quality Chemist Signed: 05/28/2024 08:[address] [facility] [facility]
--- OUTSIDE RECORDS SUMMARY | 2024-06-16 16:16 | XMS_ITS ---
Author Name [facility] [place] Organization [facility] [place] Address [address] [place] [id number] Care Team Providers Care Supervisor Screen Printing Name Role Phone LIZ JUNG Primary Care [...] PART A Apr 22, 2001 PART A [id number] JENIFER ANAYA PATIENT MEDICARE (WNR) MEDICARE (M) PART B Apr 22, 2001 PART B [id number] JENIFER ANAYA PATIENT [employer] PLAN F May 11, 2008 PLANF [id number] JENIFER ANAYA PATIENT Selected Encounter This section includes the information on record at [place] for the Encounter. Date/Time Encounter Type Encounter Description Reason Provider Source Apr 27, 2024 08:41 AM Outpatient Encounter [facility] PHYSIC EXTND(GENERAL INTERNAL MEDICINE DOCTOR,MEDICAL REVIEW SPECIALIST,[place]) ICD-10-CM N40.1 Benign prostatic hyperplasia with lower urinary tract symp LIZ JUNG [facility] Encounter Template Text not used by [place] Assessments - Encounter Diagnoses This section includes the primary and secondary diagnoses documented for the Encounter. Date/Time Primary/Secondary Diagnosis Diagnosis Name Provider Source Apr 28, 2024 02:07 PM PRIMARY Benign prostatic hyperplasia with lower urinary tract symp LIZ JUNG [place] [facility] [place] [facility] Apr 28, 2024 02:07 PM SECONDARY Age-related physical debility ALAN JUNGTHIA [facility] [place] [facility] Apr 28, 2024 02:07 PM SECONDARY Athscl heart disease of teller coronary artery w/o ang pctrs ALAN JUNGTHIA [facility] [place] [facility] Apr 28, 2024 02:07 PM SECONDARY Essential (primary) hypertension [facility] [place] [facility] Apr 28, 2024 02:07 PM SECONDARY Heart failure, unspecified [facility] [place] [facility] Apr 28, 2024 02:07 PM SECONDARY Hyperlipidemia, unspecified [facility] [place] [facility] Apr 28, 2024 02:07 PM SECONDARY Type 2 diabetes mellitus without complications [facility] [place] [facility] Apr 28, 2024 02:07 PM SECONDARY Unspecified atrial fibrillation [facility] [place] [facility] Plan of Treatment: Future Appointments (+ 6 [...] BLOOD FIT X1 SCREEN(IN-HOUSE) STOOL FECES SP [facility] Lab Results: +/- 30 days of the encounter This section includes the Chemistry and Hematology Lab Results on record with [place] for the patient. Radiology Reports and Pathology Reports are provided separately, in subsequent sections. Lab Results This section contains the Chemistry/Hematology Results that were resulted 30 days before or 30 daysafter the date of the Encounter. Date/Time Source Result Type Result - Unit Interpretation Reference Range Comment May 15, 2024 12:30 PM [facility] BASIC METABOLIC PANEL (non-fasting) Specimen Type: SERUM No comment entered. Ordering Provider: Neva JUNG Report Released Date/Time: Apr 27, 2024 03:55 PM Reporting Lab: [facility] [address] [facility] [address] Performing Lab: [address] [address] UREA NITROGEN 29 mg/dL H 7-25 GLUCOSE 285 mg/dL H 65-100 SODIUM 130 mmol/L L 135-145 POTASSIUM 4.9 mmol/L 3.5-5.0 CHLORIDE 96 mmol/L L 100-110 CO2 23 meq/L 20-30 CREATININE, Serum 1.51 mg/dL H 0.50-1.40 eGFR(CKD-EPI 2020) 44 mL/min L >60 May 15, 2024 12:30 PM [facility] LIPID PANEL FASTING Specimen Type: SERUM No comment entered. Ordering Provider: Neva JUNG Report Released Date/Time: Apr 27, 2024 03:55 PM Reporting Lab: [address] [address] Performing Lab: [address] [address] CHOLESTEROL 101 mg/dL TRIGLYCERIDE 87 mg/dL 0-150 LDL calculated 45 mg/dL 0-129 CHOL/HDL 2.6 HDL CHOLESTEROL 39 mg/dL L 40-60 May 15, 2024 12:30 PM [facility] LIVER FUNCTION Specimen Type: SERUM No comment entered. Ordering Provider: Neva JUNG Report Released Date/Time: Apr 27, 2024 03:55 PM Reporting Lab: [address] [address] Performing Lab: [address] [address] PROTEIN,TOTAL 7.2 g/dL 6.0-8.3 ALBUMIN 3.3 g/dL L 3.5-5.0 ALKALINE PHOSPHATASE 92 U/L 40-150 AST 10 U/L 5-34 ALT 11 U/L BILIRUBIN, TOTAL 0.5 mg/dL 0.2-1.2 May 15, 2024 12:30 PM [facility] CBC AND DIFF (AUTO) Specimen Type: BLOOD No comment entered. Ordering Provider: Neva JUNG Report Released Date/Time: Apr 27, 2024 03:55 PM Reporting Lab: [address] [address] Performing Lab: [address] [address] WBC 14.22 10*3/uL H 4.50-11.00 RBC 3.45 [...] 10*3/uL 0.00-0.00 May 15, 2024 12:30 PM [facility] HEMOGLOBIN A1C PANEL Specimen Type: BLOOD Comment: Values obtained from A1C measurements can vary. For atypical A1C assays, a reported value of 7.0 could actually be between 6.72 and 7.28 if measured by a reference method. A reported value of 9.0 could actually be between 8.73 and 9.27. Ref: http://www.ngs p.org/CAPdata. asp Ordering Provider: Neva JUNG Report Released Date/Time: Apr 27, 2024 03:55 PM Reporting Lab: [address] [address] Performing Lab: [address] [address] HEMOGLOBIN A1C 7.0 H 4.0-5.6 May 15, 2024 12:30 PM [facility] TSH Specimen Type: SERUM No comment entered. Ordering Provider: Neva JUNG Report Released Date/Time: Apr 27, 2024 03:55 PM Reporting Lab: [facility] [address] [facility] [address] Performing Lab: [address] [address] TSH 0.40 u[IU]/mL 0.35-5.00 May 15, 2024 12:30 PM [facility] [place] [facility] BNP (Natriuretic Peptide Brain) Specimen Type: PLASMA No comment entered. Ordering Provider: Neva JUNG Report Released Date/Time: Apr 27, 2024 04:00 PM Reporting Lab: [facility] [place] [facility] [address] [facility] [address] Performing Lab: [facility] [place] [facility] [address] [place] [address] BNP (Natriuretic Peptide Brain) 143 pg/mL H 10-100 May 15, 2024 12:30 PM [facility] [place] [facility] CALCIUM Specimen Type: SERUM No comment entered. Ordering Provider: Neva JUNG Report Released Date/Time: Apr 28, 2024 02:23 PM Reporting Lab: [facility] [place] [address] [address] Performing Lab: [facility] [place] [address] [address] CALCIUM 8.8 mg/dL 8.5-10.2 May 15, 2024 12:30 PM [facility] [place] [facility] VITAMIN D (25-OH) Specimen Type: SERUM No comment entered. Ordering Provider: Neva JUNG Report Released Date/Time: Apr 28, 2024 02:23 PM Reporting Lab: [facility] [place] [address] [address] Performing Lab: [facility] [place] [address] [address] VITAMIN D (25-OH) 28 ng/mL 20-50 Vital Signs: All taken on the encounter date This section contains inpatient and outpatient Vital Signs collected on the date of the Encounter. Date/Time Temperature Pulse Blood Pressure Respiratory Rate SP02 Pain Height Weight Body Mass Index Source Apr 27, 2024 03:51 PM 98.5 82 130/80 16 97 0 [place] [facility] [place] [facility] Encounter Notes: All associated encounter notes This section contains the clinical notes associated to the Encounter. Date/Time Encounter Note(s) Provider Source Apr 29, 2024 08:46 AM ADDENDUM: LOCAL TITLE: Addendum STANDARD TITLE: ADDENDUM DATE OF NOTE: APR 29, 2024@08:46:10 ENTRY DATE: APR 29, 2024@08:46:11 AUTHOR: WOODY PHIPPS EXP COSIGNER: URGENCY: STATUS: COMPLETED [place] is now admitted to [facility]. All future clinic primary care appointments/recalls may be cancelled as all primary care will now be delivered by the [facility] team. /es/ WOODY PHIPPS [facility] CHIEF JAILER Signed: 04/29/2024 08:46 Receipt Acknowledged By: 04/29/2024 10:06 /es/ TRINITY MILIAN for RICHELLE MOODY-SHANELLE 04/29/2024 11:43 /es/ NANCY YOUNG RN-BC REGISTERED NURSE 04/29/2024 08:55 /es/ SABRINA VARGHESE CERTIFIED NURSE PRACTITIONER --- Original Document --- 04/27/24 [facility] PROVIDER ASSESSMENT: was seen for: [ ] Initial Review [ ] Annual Review Identified by name, , address and facial recognition: [facility] Ready: Yes [ ] No [ ] HPI:88 yo M seen for admission to [facility] and post hosptial f/u. Mr Hina Anaya is a [facility] who lives in a single family home w/ his son and his grandson. He ws at [facility] 04/20-04/22/24 for acute UTI/sepsis (e. coli sensitive to cephalosporins) associated w cathether. Sx included hematuria, abd discomfort, nasuea, and vomiting. His eliquis was held and to resulme upon dc. His Lasix was held to be resumed 04/25/24. Referred for f/u [facility] urology services for hematuria. PCP: Dr. Wilson has appoint 04/30/24 may cancel cardiology: Dr Cuello following q 6 months urology: Dr. Lea f/u 05/01 Optometry: Randall Blake [phone] non [place] pharmacy[facility] [place] [facility] 1- 2x weekly - [place] [phone] Active problems - Computerized Problem List is the source for the followin. Lower urinary tract symptoms due to benign prostatic hypertrophy 2. History of cardiac catheterization 3. Frail elderly 4. Long-term current use of anticoagulant 5. CHF - Congestive Heart Failure ([facility] [id number]) 6. HTN - Hypertension ([facility] [id number]) 7. Hyperlipidemia ([facility] [id number]) 8. Diabetes Mellitus Type 2 ([facility] [id number]) 9. CAD - Coronary Artery Disease ([facility] [id number]) 10. OA - Osteoarthritis ([facility] [id number]) 11. AF - Atrial fibrillation 12. Under care of multiple providers non [place] PCP: Dimitri Wilson [phone] Cardiology: Yosef Cuello [phone] Optometry: Randall Blake [phone] Allergies: Patient has answered NKA The following [...] DAILY ACTIVE 11 Total Medications FMH: mother: jadiel. [place] 58 father: d. 58 cirrhosis/ETOH PSxHX: SP cath 2023 right inguinal hernia repair 40's hx of cardiac cath HISTORY: PERIOD OF SERVICE - [employer] FROM Apr TO Feb COMBAT SERVICE INDICATED: No SH: MARITAL STATUS - x 9 years retired 20 years ago Has 5 step children 3 cats Son Christina recently moved in and grandson Ihsan is ETL DATA ARCHITECT has 13 hours/week fluid intake: 2 16 ounce bottles water/day 1 20 ounce vit water daily 2 coffees in AM 1-2 beers jermain Fridays at the [facility] What brings you harshal? to be able [...] c/w metformin 1gm BID check A1C HM: [place] has complex care needs and will benefit from ongoing interdisciplinary [facility] management. Treatment plan included shared decision-making and is confirmed with [place]/caregiver. All questions answered. Education provided regarding medication, [...] include caregiver training, adaptive equipment, refer for HAND CROWN POUNCER. ( )No ADL assistance needed. IM - Immunizations ADMINISTERED Immunization Series Date Facility Reaction Info COVID-19 ([employer]), MRNA, LNP-S, * 1 01/22/2023 No Site <C> COVID-19 ([employer]), MRNA, LNP-S, * 1 02/14/2022 No Site <C> COVID-19 ([employer]), MRNA, LNP-S, * 1 06/17/2020 No Site <C> COVID-19 ([employer]), MRNA, LNP-S, * 1 03/02/2021 No Site <C> COVID-19 ([employer]), MRNA, LNP-S, * 1 05/27/2020 No Site <C> COVID-19 ([employer]), MRNA, LNP-S, * 03/11/2024 No Site COVID-19 [...] Order for HBA1C placed. /michell/ LIZ JUNG RN,MSN,OCCUPATIONAL THERAPIST REHAB MANAGER-C HB NURSE PRACTITIONER Signed: 04/28/2024 14:07 Receipt Acknowledged By: 04/28/2024 14:26 /michell/ LISA VIVAS RN, BSN [facility] SAFETY DEPOSIT SUPERVISOR 04/29/2024 08:49 /michell/ WOODY PHIPPS [facility] CHIEF JAILER 04/28/2024 ADDENDUM STATUS: COMPLETED mild anemia noted, no longer on coumadin now on DOAC. Patint w vague reports or vomiting and/or bowel urgency w loose stools. Labs ordered and please give FIT test to r/o bleed. Will follow up closley to reeval GI sx. /michell/ LIZ JUNG RN,MSN,OCCUPATIONAL THERAPIST REHAB MANAGER-C [facility] NURSE PRACTITIONER Signed: 04/28/2024 14:25 Receipt Acknowledged By: 04/28/2024 14:27 /es/ LISA VIVAS RN, BSN [facility] SAFETY DEPOSIT SUPERVISOR WOODY PHIPPS [place] [facility] [place] [facility] Apr 28, 2024 02:23 PM ADDENDUM: LOCAL [...] follow up closley to reeval GI sx. /michell/ LIZ JUNG RN,MSN,OCCUPATIONAL THERAPIST REHAB MANAGER-C HB NURSE PRACTITIONER Signed: 04/28/2024 14:25 Receipt Acknowledged By: 04/28/2024 14:27 /michell/ LISA VIVAS RN, BSN [facility] SAFETY DEPOSIT SUPERVISOR --- Original Document --- 04/27/24 [facility] PROVIDER ASSESSMENT: [place] was seen for: [ ] Initial Review [ ] Annual Review Identified by name, , address and facial recognition: [place] [facility] Ready: Yes [ ] No [ ] HPI:88 yo M seen for admission to [facility] and post hosptial f/u. Mr Hina Anaya is a [facility] who lives in a single family home w/ his son and his grandson. He ws at [facility] 04/20-04/22/24 for acute UTI/sepsis (e. coli sensitive to cephalosporins) associated w cathether. Sx included hematuria, abd discomfort, nasuea, and vomiting. His eliquis was held and to resulme upon dc. His Lasix was held to be resumed 04/25/24. Referred for f/u [facility] urology services for hematuria. PCP: Dr. Wilson has appoint 04/30/24 may cancel cardiology: Dr Cuello following q 6 months urology: Dr. Lea f/u 05/01 Optometry: Randallevgeny Blake [phone] non [place] pharmacy: [facility] 1- 2x weekly - [place] [phone] Active problems - Computerized Problem List is the source for the followin. Lower urinary tract symptoms due to benign prostatic hypertrophy 2. History of cardiac catheterization 3. Frail elderly 4. Long-term current use of anticoagulant 5. CHF - Congestive Heart Failure ([facility] [id number]) 6. HTN - Hypertension ([facility] [id number]) 7. Hyperlipidemia ([facility] [id number]) 8. Diabetes Mellitus Type 2 ([facility] [id number]) 9. CAD - Coronary Artery Disease ([facility] [id number]) 10. OA - Osteoarthritis ([facility] [id number]) 11. AF - Atrial fibrillation 12. Under care of multiple providers non [place] PCP: Dimitri Wilson [phone] Cardiology: Yosef Cuello [phone] Optometry: Randall Blake [phone] Allergies: Patient has answered NKA The following [...] ACTIVE 11 Total Medications FMH: mother: d. [place] 58 father: d. 58 cirrhosis/ETOH PSxHX: SP cath 2023 right inguinal hernia repair 40's hx of cardiac cath HISTORY: PERIOD OF SERVICE - [employer] FROM Apr TO Feb COMBAT SERVICE INDICATED: No SH: MARITAL STATUS - x 9 years retired 20 years ago Has 5 step children 3 cats Son Christina recently moved in and grandsanna Champagne is ETL DATA ARCHITECT has 13 hours/week fluid intake: 2 16 ounce bottles water/day 1 20 ounce vit water daily 2 coffees in AM 1-2 beers jermain Fridays at the [facility] What brings you harshal? to be able [...] c/w metformin 1gm BID check A1C HM: has complex care needs and will benefit from ongoing interdisciplinary [facility] management. Treatment plan included shared decision-making and is confirmed with [place]/caregiver. All questions answered. Education provided regarding medication, [...] include caregiver training, adaptive equipment, refer for HAND CROWN POUNCER. ( )No ADL assistance needed. IM - Immunizations ADMINISTERED Immunization Series Date Facility Reaction Info COVID-19 ([employer]), MRNA, LNP-S, * 1 01/22/2023 No Site <C> COVID-19 ([employer]), MRNA, LNP-S, * 1 02/14/2022 No Site <C> COVID-19 ([employer]), MRNA, LNP-S, * 1 06/17/2020 No Site [...] Order for HBA1C placed. /michell/ LIZ JUNG RN,MSN,OCCUPATIONAL THERAPIST REHAB MANAGER-C HB NURSE PRACTITIONER Signed: 04/28/2024 14:07 Receipt Acknowledged By: 04/28/2024 14:26 /michell/ LISA VIVAS RN, BSN [facility] SAFETY DEPOSIT SUPERVISOR * AWAITING SIGNATURE * WOODY PHIPPS [place] [facility] [facility] Apr 28, 2024 02:15 PM NONVA NOTE: LOCAL TITLE: OUT OF HOSPITAL ORDERS STANDARD TITLE: NONVA NOTE DATE OF NOTE: APR 28, 2024@14:15 ENTRY DATE: APR 28, 2024@14:15:09 AUTHOR: MARGO JUNG EXP COSIGNER: URGENCY: STATUS: COMPLETED MOLST sent to scan /michell/ LIZ JUNG RN,MSN,OCCUPATIONAL THERAPIST REHAB MANAGER-C [facility] NURSE PRACTITIONER Signed: 04/28/2024 14:15 CORY JUNG [place] [facility] [place] [facility] Apr 28, 2024 02:15 PM LIFE-SUSTAINING TREATMENT [...] this care planning activity. /michell/ LIZ JUNG RN,MSN,OCCUPATIONAL THERAPIST REHAB MANAGER-C [facility] NURSE PRACTITIONER Signed: 04/28/2024 14:20 CORY JUNG [facility] [place] [facility] Apr 28, 2024 02:13 PM ADDENDUM: LOCAL TITLE: Addendum STANDARD TITLE: ADDENDUM DATE OF NOTE: APR 28, 2024@14:13:37 ENTRY DATE: APR 28, 2024@14:13:38 AUTHOR: MARGO JUNG COSIGNER: URGENCY: STATUS: COMPLETED Please fax and request for last 2 visit notes, labs, and last CXR. thank you. Name of office: Dr. Dimitri Wilson fax number: [phone] /es/ LIZ JUNG RN,MSN,OCCUPATIONAL THERAPIST REHAB MANAGER-C [facility] NURSE PRACTITIONER Signed: 04/28/2024 14:14 Receipt Acknowledged By: 04/28/2024 17:02 /es/ WOODY PHIPPS [facility] CHIEF JAILER --- Original Document --- 04/28/24 PATIENT LETTER (B): [employer] [facility] Name of office: Dr. Dimitri Wilson fax number: [phone] Date:APR 28, 2024 Re: JENIFER ANAYA, : 37 To Whom It May Concern: We are sending this letter regarding the above patient. He has recently been admitted to our [place] [facility] on 04/27/24. [...] We can be reached by phone by [phone] and our fax number is [phone] We are grateful for the collaboration and ensuring that our Veterans are getting the best care possible. Please reach out with any questions. Sincerely, The [facility] Primary Care Team Sincerely, Liz Jung Nurse Practitioner [facility] [address] [address] P: [phone] x [phone] fax: [phone] CORY JUNG [facility] [facility] Apr 28, 2024 02:08 PM LETTERS: LOCAL TITLE: PATIENT LETTER (B) STANDARD TITLE: LETTERS DATE OF NOTE: APR 28, 2024@14:08 ENTRY DATE: APR 28, 2024@14:08:10 AUTHOR: MARGO JUNG EXP COSIGNER: URGENCY: STATUS: COMPLETED PATIENT LETTER (B) Has ADDENDA [employer] [facility] Name of office: Dr. Dimitri Wilson fax number: [phone] Date:APR 28, 2024 Re: JENIFER ANAYA, : 37 To Whom It May Concern: We are sending this letter regarding the above patient. He has recently been admitted to our [place] [facility] on 04/27/24. [...] We can be reached by phone by [phone] and our fax number is [phone] We are grateful for the collaboration and ensuring that our Veterans are getting the best care possible. Please reach out with any questions. Sincerely, [facility] Primary Care Team Sincerely, Liz Jung Nurse Practitioner [facility] [address] [address] P: [phone] fax: [phone] 04/28/2024 ADDENDUM STATUS: COMPLETED Please fax and request for last 2 visit notes, labs, and last CXR. thank you. Name of office: Dr. Dimitri Wilson fax number: [phone] /es/ LIZ JUNG RN,MSN,OCCUPATIONAL THERAPIST REHAB MANAGER-C HB NURSE PRACTITIONER Signed: 04/28/2024 14:14 Receipt Acknowledged By: * AWAITING SIGNATURE * WOODY PHIPPS [place] [facility] [place] [facility] Apr 27, 2024 08:41 AM [facility] ATTENDING NOTE: LOCAL TITLE: HB PROVIDER ASSESSMENT STANDARD TITLE: HB ATTENDING NOTE DATE OF NOTE: APR 27, 2024@08:41 ENTRY DATE: APR 27, 2024@08:41:54 AUTHOR: MARGO JUNG EXP COSIGNER: URGENCY: STATUS: COMPLETED HB PROVIDER ASSESSMENT Has ADDENDA [place] was seen for: [ ] Initial Review [ ] Annual Review Identified by name, , address and facial recognition: Y [facility] Ready: Yes [ ] No [ ] HPI:88 yo M seen for admission to [facility] and post hosptial f/u. Mr Hina Anaya is a [facility] who lives in a single family home w/ his son and his grandson. He ws at [facility] 04/20-04/22/24 for acute UTI/sepsis (e. coli sensitive to cephalosporins) associated w cathether. Sx included hematuria, abd discomfort, nasuea, and vomiting. His eliquis was held and to resulme upon dc. His Lasix was held to be resumed 04/25/24. Referred for f/u [facility] urology services for hematuria. PCP: Dr. Wilson has appoint 04/30/24 may cancel cardiology: Dr Cuello following q 6 months urology: Dr. Lea f/u 05/01 Optometry: Randall Blake [phone] [facility] pharmacy[facility] [place] [facility] 1- 2x weekly - Jane [phone] Active problems - Computerized Problem List is the source for the followin. Lower urinary tract symptoms due to benign prostatic hypertrophy 2. History of cardiac catheterization 3. Frail elderly 4. Long-term current use of anticoagulant 5. CHF - Congestive Heart Failure ([facility] [id number]) 6. HTN - Hypertension ([facility] [id number]) 7. Hyperlipidemia ([facility] [id number]) 8. Diabetes Mellitus Type 2 ([facility] [id number]) 9. CAD - Coronary Artery Disease ([facility] [id number]) 10. OA - Osteoarthritis ([facility] [id number]) 11. AF - Atrial fibrillation 12. Under care of multiple providers non [place] PCP: Dimitri Wilson [phone] Cardiology: Yosef Cuello [phone] Optometry: Randall Blake [phone] Allergies: Patient has answered NKA The following [...] ACTIVE 11 Total Medications FMH: mother: d. [place] 58 father: d. 58 cirrhosis/ETOH PSxHX: SP cath 2023 right inguinal hernia repair 40's hx of cardiac cath HISTORY: PERIOD OF SERVICE - [employer] FROM Apr TO Feb COMBAT SERVICE INDICATED: No SH: MARITAL STATUS - x 9 years retired 20 years ago Has 5 step children 3 cats Son Christina recently moved in and grandsanna Champagne is ETL DATA ARCHITECT has 13 hours/week fluid intake: 2 16 ounce bottles water/day 1 20 ounce vit water daily 2 coffees in AM 1-2 beers jermain Fridays at the [facility] What brings you harshal? to be able [...] c/w metformin 1gm BID check A1C HM: has complex care needs and will benefit [...] include caregiver training, adaptive equipment, refer for HAND CROWN POUNCER. ( )No ADL assistance needed. IM - Immunizations ADMINISTERED Immunization Series Date Facility Reaction Info COVID-19 ([employer]), MRNA, LNP-S, * 1 01/22/2023 No Site <C> COVID-19 ([employer]), MRNA, LNP-S, * 1 02/14/2022 No Site [...] Order for HBA1C placed. /es/ LIZ JUNG RN,MSN,OCCUPATIONAL THERAPIST REHAB MANAGER-C HB NURSE PRACTITIONER Signed: 04/28/2024 14:07 Receipt Acknowledged By: 04/28/2024 14:26 /es/ LISA VIVAS RN, BSN [facility] SAFETY DEPOSIT SUPERVISOR 04/29/2024 08:49 /es/ WOODY PHIPPS HB CHIEF JAILER 04/28/2024 ADDENDUM STATUS: COMPLETED mild anemia noted, no longer on coumadin now on DOAC. Patint w vague reports or vomiting and/or bowel urgency w loose stools. Labs ordered and please give FIT test to r/o bleed. Will follow up closley to reeval GI sx. /es/ LIZ JUNG RN,MSN,OCCUPATIONAL THERAPIST REHAB MANAGER-C HB NURSE PRACTITIONER Signed: 04/28/2024 14:25 Receipt Acknowledged By: 04/28/2024 14:27 /es/ LISA VIVAS RN, BSN [facility] SAFETY DEPOSIT SUPERVISOR 04/29/2024 ADDENDUM STATUS: COMPLETED [place] is now admitted to [facility]. All future clinic primary care appointments/recalls may be cancelled as all primary care will now be delivered by the [facility] team. /es/ WOODY PHIPPS [facility] [place] [facility] Signed: 04/29/2024 08:46 Receipt Acknowledged By: * AWAITING SIGNATURE * RICHELLE GARCIA * AWAITING SIGNATURE * JENNIFER FU * AWAITING SIGNATURE * ARDEN TRENT [facility] [facility]
--- OUTSIDE RECORDS SUMMARY | 2024-06-16 16:16 | XMS_ITS | Continuity of Care Document ---
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 It does not include entries that were removed or entered in error. Problem Status Onset Date Problem Type Date of Resolution Comments Source AF - Atrial fibrillation Active Condition [place] CAD - Coronary Artery Disease ([facility] [id number]) Active Condition [place] CHF - Congestive Heart Failure ([facility] 74534436) Active Condition [place] Chronic kidney disease Active Condition [place] Diabetes Mellitus Type 2 ([facility] [id number]) Active Condition [place] Frail elderly Active Condition [facility] History of cardiac catheterization Active Condition [facility] HTN - Hypertension ([facility] 35323295) [facility] ([facility] 04443375) Active Condition [place] Ischemic congestive cardiomyopathy Active Condition [facility] Long-term current use of anticoagulant Active Condition [facility] [place] [facility] Lower urinary tract symptoms due to benign prostatic hypertrophy Active Condition Apr 23, 2024 Entered By: JUVENTINO MARTIN Comment: urinary retention w SP cath [place] OA - Osteoarthritis ([facility] 114602524) Active Condition [facility] Under care of multiple providers Active Condition Apr 28 Entered By: JUVENTINO MARTIN Comment: non [facility] PCP: Dimitri Wilson [phone] : dual care note sent 04/28/24Au2023 Entered By: RUKHSANA HANKINS Comment: Cardiology: Yosef Cuello [phone] Dec 20, 2023 Entered By: ROBIN FU Comment: Optometry: Randall Blake [phone] Apr 23, 2024 Entered By: JUVENTINO MARTIN Comment: [facility]: fax# [phone] [facility] Diagnosis: ICD-10-CM Z65.9 Problem related to unspecified psychosocial circumstances Active Diagnosis [facility] Diagnosis: ICD-10-CM N18.9 Chronic kidney disease, unspecified Active Diagnosis [facility] Diagnosis: ICD-10-CM Z04.89 Encounter for examination and observation for oth reasons Active Diagnosis [facility] Diagnosis: ICD-10-CM N40.1 Benign prostatic hyperplasia with lower urinary tract symp Active Diagnosis [facility] Diagnosis: ICD-10-CM R26.9 Unspecified abnormalities of gait and mobility Active Diagnosis [facility] Diagnosis: ICD-10-CM Z79.899 Other jail (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 Active Diagnosis [facility] Diagnosis: ICD-10-CM R54 Age-related physical debility Active Diagnosis [facility] Diagnosis: ICD-10-CM I50.9 Heart failure, unspecified Active Diagnosis [facility] Diagnosis: ICD-10-CM Z51.81 Encounter for therapeutic drug level monitoring Active Diagnosis [facility] Diagnosis: ICD-10-CM 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 Medication Details Route Status Patient Instructions Prescription Expires Prescription Number Last Dispense Date Ordering Provider Order Date Order Qty Source ACETAMINOPH EN 500MG TAB TAKE TWO TABLETS BY MOUTH TWICE DAILY NEEDED FOR PAIN ORAL ACTIVE 04/28/2025 [id number] 5 CORY PEREZ 2024 100 [facility] AMIODARONE HCL 200MG TAB TAKE ONE TABLET BY MOUTH ONCE DAILY FOR VENTRICU LAR FIBRILLA TION ORAL SUSPEND ED 04/28/2025 [id number] 5 [place] [address]24 90 [facility] APIXABAN 5MG TAB TAKE ONE-HALF TABLET BY MOUTH EVERY 12 HOURS FOR ATRIAL FIBRILLA TION ORAL ACTIVE 05/19/2025 [id number] 5 ALAN [place]Z [place] 2024 90 [facility] APIXABAN 5MG TAB TAKE ONE TABLET BY MOUTH EVERY 12 HOURS FOR ATRIAL FIBRILLA TION ORAL DISCONT INUED (EDIT) 04/28/2025 [id number] 5 CORY PEREZ [place] [address]24 180 [facility] APIXABAN 5MG TAB TAKE ONE TABLET BY MOUTH EVERY 12 HOURS FOR ATRIAL FIBRILLA TION ORAL DISCONT INUED 05/05/2024 [id number] 4 STELEA,CA RMEN F 2023 180 [place] ATORVASTATI N CA 40MG TAB TAKE ONE TABLET BY MOUTH AT BEDTIME FOR HIGH CHOLESTE ROL ORAL ACTIVE 04/28/2025 [id number] 5 C[place]EREZ IA 2024 90 [facility] FINASTERIDE 5MG TAB TAKE ONE TABLET BY MOUTH ONCE DAILY FOR ENLARGED PROSTATE ORAL ACTIVE 04/28/2025 [id number] 5 [place]Z [place] 2024 90 [facility] FUROSEMIDE 20MG TAB TAKE ONE TABLET BY MOUTH ONCE DAILY TO REMOVE FLUID/CO NTROL BLOOD PRESSURE ORAL ACTIVE 04/28/2025 [id number] 5 [place]Z [place] [address]24 90 [facility] METFORMIN HCL 500MG 24HR TAB,SA TAKE TWO TABLETS BY MOUTH TWICE DAILY FOR TYPE 2 DIABETES MELLITUS ORAL ACTIVE 04/28/2025 [id number] 5 [place] [address] 360 [facility] METHENAMINE HIPPURATE 1GM TAB TAKE ONE TABLET BY MOUTH ONCE DAILY ORAL ACTIVE JENNIFER-ONEL SAMUELY,CYNTH [place] [address]24 [facility] METHENAMINE HIPPURATE 1GM TAB TAKE ONE TABLET BY MOUTH ONCE DAILY ORAL ACTIVE JENNIFER-GR LIN,[place] [address]24 [facility] SOLIFENACIN SUCCINATE 5MG TAB TAKE ONE TABLET BY MOUTH ONCE DAILY FOR OVERACTI VE BLADDER ORAL ACTIVE 04/28/2025 [id number] 5 JENNIFER-GR LIN,[place] [address] 90 [facility] SPIRONOLACT ONE 25MG TAB TAKE ONE TABLET BY MOUTH ONCE DAILY FOR HEART FAILURE ORAL ACTIVE 04/28/2025 [id number] 5 JENNIFER-ONEL LIN,[place] [address] 90 [facility] TAMSULOSIN HCL 0.4MG CAP TAKE ONE CAPSULE BY MOUTH ONCE DAILY FOR ENLARGED PROSTATE ORAL ACTIVE 04/28/2025 [id number] 5 JENNIFER-ONEL SAMUELY,[place] [address] 90 [facility] Immunizations Combined list of available immunizations from the Department of Defense and Veterans Affairs facilities. Immunization Series Date Given Administered By Site Reaction Lot Number CVX Code Drug Gold Beater Status Comments Source PNEUMOCOCCAL CONJUGATE PCV20, POLYSACCHARID E [id number] CONJUGATE, ADJUVANT, PF 2024 LISA VIVAS DELTO ID [id number] 216 complet ed [facility] RSV, RECOMBINANT, PROTEIN SUBUNIT RSVPREF3, ADJUVANT RECONSTITUTED , 0.5 ML, PF 2024 LISA VIVAS DELTO ID [id number] 303 complet ed [facility] COVID-19 (PFIZER), MRNA, LNP-S, PF, EMELINA-SUCROSE, 30 MCG/0.3 ML (AGES 12+ YEARS) 2023 309 complet ed [facility] INFLUENZA, UNSPECIFIED FORMULATION 2023 88 complet ed [facility] COVID-19 (PFIZER), MRNA, LNP-S, BIVALENT, PF, 30 MCG/0.3 ML DOSE 1 2022 300 complet ed noted in [facility] medical record [facility] COVID-19 ([facility]), MRNA, LNP-S, BIVALENT, PF, 30 MCG/0.3 ML DOSE 1 2021 300 complet ed noted in [facility] medical record [facility] COVID-19 ([facility]), MRNA, LNP-S, PF, EMELINA-SUCROSE, 30 MCG/0.3 ML (AGES 12+ YEARS) 1 2021 309 complet ed noted in [facility] medical record [facility] COVID-19 (P[facility]ZER), MRNA, LNP-S, PF, 30 MCG/0.3 ML DOSE 1 2020 208 complet ed noted in [facility] medical record [facility] COVID-19 (PFIZER), MRNA, LNP-S, BIVALENT, PF, 30 MCG/0.3 ML DOSE 1 2020 300 complet ed noted in [facility] [place] [facility] medical record [facility] COVID-19 (P[facility]ZER), MRNA, LNP-S, PF, 30 MCG/0.3 ML DOSE 1 2020 208 complet ed noted in [facility] [place] medical record [facility] ZOSTER LIVE 2011 121 complet ed [facility] Results Combined list of recent chemistry, hematology and other laboratory results from Department of Defense and Veterans Affairs, ranging from 15 months to all on record, depending upon the facility. Order Name Results Value Reference Range Date Interpretation Specimen Comments Source BASIC METABOLIC PANEL (non-fast ing) UREA NITROGEN [MASS/VOLUM E] IN SERUM OR PLASMA 29 mg/dL 7 - 25 05/15 H Specimen Type: SERUM No comment entered. Ordering Provider: JUVENTINO FRIEDMAN Report Released Date/Time: Apr 27, 2024 03:55 PM Reporting Lab: [address] [place] [address] Performing Lab: [facility] [address] [address] [facility] BASIC METABOLIC PANEL (non-fast ing) GLUCOSE [MASS/VOLUM E] IN SERUM OR PLASMA 285 mg/dL 65 - 100 05/15 H Specimen Type: SERUM No comment entered. Ordering Provider: JUVENTINO FRIEDMAN Report Released Date/Time: Apr 27, 2024 03:55 PM Reporting Lab: [facility] [address] [address] Performing Lab: [address] [address] [facility] BASIC METABOLIC PANEL (non-fast ing) SODIUM [MOLES/VOLU ME] IN SERUM OR PLASMA 130 mmol/L 135 - 145 05/15 L Specimen Type: SERUM No comment entered. Ordering Provider: JUVENTINO FREIDMAN Report Released Date/Time: Apr 27, 2024 03:55 PM Reporting Lab: [address] [address] Performing Lab: [address] [address] [facility] BASIC METABOLIC PANEL (non-fast ing) POTASSIUM [MOLES/VOLU ME] IN SERUM OR PLASMA 4.9 mmol/L 3.5 - 5.0 05/15 Specimen Type: SERUM No comment entered. Ordering Provider: JUVENTINO FRIEDMAN Report Released Date/Time: Apr 27, 2024 03:55 PM Reporting Lab: [facility] [address] [address] Performing Lab: [address] [address] [facility] BASIC METABOLIC PANEL (non-fast ing) CHLORIDE [MOLES/VOLU ME] IN SERUM OR PLASMA 96 mmol/L 100 - 110 05/15 L Specimen Type: SERUM No comment entered. Ordering Provider: JUVENTINO FRIEDMAN Report Released Date/Time: Apr 27, 2024 03:55 PM Reporting Lab: [address] [address] Performing Lab: [address] [address] [facility] BASIC METABOLIC PANEL (non-fast ing) CARBON DIOXIDE, TOTAL [MOLES/VOLU ME] IN SERUM OR PLASMA 23 meq/L 20 - 30 05/15 Specimen Type: SERUM No comment entered. Ordering Provider: JUVENTINO FRIEDMAN Report Released Date/Time: Apr 27, 2024 03:55 PM Reporting Lab: [address] [address] Performing Lab: [address] [address] [facility] BASIC METABOLIC PANEL (non-fast ing) CREATININE [MASS/VOLUM E] IN SERUM OR PLASMA 1.51 mg/dL 0.50 - 1.40 05/15 H Specimen Type: SERUM No comment entered. Ordering Provider: JUVENTINO FRIEDMAN Report Released Date/Time: Apr 27, 2024 03:55 PM Reporting Lab: [address] [address] Performing Lab: [address] [address] [facility] BASIC METABOLIC PANEL (non-fast ing) GLOMERULAR FILTRATION RATE/1.73 SQ M.PREDICTED [VOLUME RATE/AREA] IN SERUM, PLASMA OR BLOOD BY CREATININE- BASED FORMULA (CKD-EPI 2020) 44 mL/min 60 05/15 L Specimen Type: SERUM No comment entered. Ordering Provider: JUVENTINO FRIEDMAN Report Released Date/Time: Apr 27, 2024 03:55 PM Reporting Lab: [address] [address] Performing Lab: [facility] [place] [facility] [address] [address] [facility] LIPID PANEL FASTING CHOLESTEROL [MASS/VOLUM E] IN SERUM OR PLASMA 101 mg/dL 05/15 Specimen Type: SERUM No comment entered. Ordering Provider: JUVENTINO FRIEDMAN Report Released Date/Time: Apr 27, 2024 03:55 PM Reporting Lab: [facility] [place] [facility] [address] [address] Performing Lab: [facility] [place] [facility] [address] [address] [facility] [place] [facility] LIPID PANEL FASTING TRIGLYCERID E [MASS/VOLUM E] IN SERUM OR PLASMA 87 mg/dL 0 - 150 05/15 Specimen Type: SERUM No comment entered. Ordering Provider: JUVENTINO FRIEDMAN Report Released Date/Time: Apr 27, 2024 03:55 PM Reporting Lab: [facility] [place] [facility] [address] [address] Performing Lab: [facility] [place] [address] [address] [facility] [place] [facility] LIPID PANEL FASTING CHOLESTEROL IN LDL [MASS/VOLUM E] IN SERUM OR PLASMA BY CALCULATION 45 mg/dL 0 - 129 05/15 Specimen Type: SERUM No comment entered. Ordering Provider: JUVENTINO FRIEDMAN Report Released Date/Time: Apr 27, 2024 03:55 PM Reporting Lab: [facility] [place] [facility] [address] [address] Performing Lab: [facility] [place] [address] [address] [facility] [place] [facility] LIPID PANEL FASTING CHOLESTEROL .TOTAL/CHOL ESTEROL IN HDL [MASS RATIO] IN SERUM OR PLASMA 2.6 05/15 Specimen Type: SERUM No comment entered. Ordering Provider: JUVENTINO FRIEDMAN Report Released Date/Time: Apr 27, 2024 03:55 PM Reporting Lab: [facility] [place] [facility] [address] [address] Performing Lab: [facility] [place] [facility] [address] [address] [facility] [place] [facility] LIPID PANEL FASTING CHOLESTEROL IN HDL [MASS/VOLUM E] IN SERUM OR PLASMA 39 mg/dL 40 - 60 05/15 L Specimen Type: SERUM No comment entered. Ordering Provider: JUVENTINO FRIEDMAN Report Released Date/Time: Apr 27, 2024 03:55 PM Reporting Lab: [facility] [place] [facility] [address] [address] Performing Lab: [facility] [address] [address] [facility] LIVER FUNCTION PROTEIN [MASS/VOLUM E] IN SERUM OR PLASMA 7.2 g/dL 6.0 - 8.3 05/15 Specimen Type: SERUM No comment entered. Ordering Provider: JUVENTINO FRIEDMAN Report Released Date/Time: Apr 27, 2024 03:55 PM Reporting Lab: [facility] [place] [facility] [address] [address] Performing Lab: [facility] [address] [address] [facility] LIVER FUNCTION ALBUMIN [MASS/VOLUM E] IN SERUM OR PLASMA 3.3 g/dL 3.5 - 5.0 05/15 L Specimen Type: SERUM No comment entered. Ordering Provider: JUVENTINO FRIEDMAN Report Released Date/Time: Apr 27, 2024 03:55 PM Reporting Lab: [facility] [place] [facility] [address] [address] Performing Lab: [facility] [place] [facility] [address] [address] [facility]TR[facility] LIVER FUNCTION ALKALINE PHOSPHATASE [ENZYMATIC ACTIVITY/VO LUME] IN SERUM OR PLASMA 92 U/L 40 - 150 05/15 Specimen Type: SERUM No comment entered. Ordering Provider: JUVENTINO FRIEDMAN Report Released Date/Time: Apr 27, 2024 03:55 PM Reporting Lab: [facility] [place] [facility] [address] [address] Performing Lab: [facility] [facility] [address] [address] [facility] [place] [facility] LIVER FUNCTION ASPARTATE AMINOTRANSF ERASE [ENZYMATIC ACTIVITY/VO LUME] IN SERUM OR PLASMA 10 U/L 5 - 34 05/15 Specimen Type: SERUM No comment entered. Ordering Provider: JUVENTINO FRIEDMAN Report Released Date/Time: Apr 27, 2024 03:55 PM Reporting Lab: [facility] [place] [facility] [address] [address] Performing Lab: [facility] [place] [facility] [address] [address] [facility] [place] [facility] LIVER FUNCTION ALANINE AMINOTRANSF ERASE [ENZYMATIC ACTIVITY/VO LUME] IN SERUM OR PLASMA 11 U/L 05/15 Specimen Type: SERUM No comment entered. Ordering Provider: JUVENTINO FRIEDMAN Report Released Date/Time: Apr 27, 2024 03:55 PM Reporting Lab: [facility] [place] [facility] [address] [address] Performing Lab: [facility] [place] [facility] [address] [address] [facility] [place] [facility] LIVER FUNCTION BILIRUBIN.T OTAL [MASS/VOLUM E] IN SERUM OR PLASMA 0.5 mg/dL 0.2 - 1.2 05/15 Specimen Type: SERUM No comment entered. Ordering Provider: JUVENTINO FRIEDMAN Report Released Date/Time: Apr 27, 2024 03:55 PM Reporting Lab: [facility] [place] [facility] [address] [address] Performing Lab: [facility] [place] [address] [address] [facility] [place] [facility] CBC AND DIFF (AUTO) LEUKOCYTES [#/VOLUME] IN BLOOD BY AUTOMATED COUNT 14.22 10*3/u L 4.50 - 11.00 05/15 H Specimen Type: BLOOD No comment entered. Ordering Provider: JUVENTINO FRIEDMAN Report Released Date/Time: Apr 27, 2024 03:55 PM Reporting Lab: [facility] [place] [facility] [address] [address] Performing Lab: [facility] [place] [facility] [address] [address] [facility] [place] [facility] CBC AND DIFF (AUTO) ERYTHROCYTE S [#/VOLUME] IN BLOOD BY AUTOMATED COUNT 3.45 10*6/u L 4.23 - 5.66 05/15 L Specimen Type: BLOOD No comment entered. Ordering Provider: JUVENTINO FRIEDMAN Report Released Date/Time: Apr 27, 2024 03:55 PM Reporting Lab: [facility] [place] [address] [address] Performing Lab: [facility] [place] [facility] [address] [address] [facility] [place] [facility] CBC AND DIFF (AUTO) HEMOGLOBIN [MASS/VOLUM E] IN BLOOD 10.7 g/dL 12.8 - 17 05/15 L Specimen Type: BLOOD No comment entered. Ordering Provider: JUVENTINO FRIEDMAN Report Released Date/Time: Apr 27, 2024 03:55 PM Reporting Lab: [facility] [place] [address] [address] Performing Lab: [facility] [place] [facility] [address] [address] [facility]TR[facility] [place] [facility] CBC AND DIFF (AUTO) HEMATOCRIT [VOLUME FRACTION] OF BLOOD BY AUTOMATED COUNT 32.4 39.2 - 50.4 05/15 L Specimen Type: BLOOD No comment entered. Ordering Provider: JUVENTINO FRIEDMAN Report Released Date/Time: Apr 27, 2024 03:55 PM Reporting Lab: [facility] [place] [address] [address] Performing Lab: [facility] [place] [facility] [address] [address] [facility] [place] [facility] CBC AND DIFF (AUTO) MCV [ENTITIC VOLUME] BY AUTOMATED COUNT 93.9 fL 82 - 99 05/15 Specimen Type: BLOOD No comment entered. Ordering Provider: JUVENTINO FRIEDMAN Report Released Date/Time: Apr 27, 2024 03:55 PM Reporting Lab: [facility] [place] [facility] [address] [address] Performing Lab: [facility] [place] [facility] [address] [address] [facility] [place] [facility] CBC AND DIFF (AUTO) MCHC [MASS/VOLUM E] BY AUTOMATED COUNT 33.0 g/dL 30.8 - 35.1 05/15 Specimen Type: BLOOD No comment entered. Ordering Provider: JUVENTINO FRIEDMAN Report Released Date/Time: Apr 27, 2024 03:55 PM Reporting Lab: [facility] [place] [facility] [address] [address] Performing Lab: [facility] [place] [facility] [address] [address] [facility] [place] [facility] CBC AND DIFF (AUTO) PLATELETS [#/VOLUME] IN BLOOD BY AUTOMATED COUNT 311 10*3/u L 140 - 360 05/15 Specimen Type: BLOOD No comment entered. Ordering Provider: JUVENTINO FRIEDMAN Report Released Date/Time: Apr 27, 2024 03:55 PM Reporting Lab: [facility] [place] [facility] [address] [address] Performing Lab: [facility] [place] [facility] [address] [address] [facility] [place] [facility] CBC AND DIFF (AUTO) ERYTHROCYTE DISTRIBUTIO N WIDTH [RATIO] BY AUTOMATED COUNT 13.2 12.0 - 16.0 05/15 Specimen Type: BLOOD No comment entered. Ordering Provider: JUVENTINO FRIEDMAN Report Released Date/Time: Apr 27, 2024 03:55 PM Reporting Lab: [facility] [place] [facility] [address] [address] Performing Lab: [facility] [place] [facility] [address] [address] [facility] [place] [facility] CBC AND DIFF (AUTO) MONOCYTES [#/VOLUME] IN BLOOD BY AUTOMATED COUNT 0.89 10*3/u L 0.30 - 1.10 05/15 Specimen Type: BLOOD No comment entered. Ordering Provider: JUVENTINO FRIEDMAN Report Released Date/Time: Apr 27, 2024 03:55 PM Reporting Lab: [facility] [place] [facility] [address] [address] Performing Lab: [facility] [place] [facility] [address] [address] [facility] [place] [facility] CBC AND DIFF (AUTO) MCH [ENTITIC MASS] BY AUTOMATED COUNT 31.0 pg 26.2 - 32.6 05/15 Specimen Type: BLOOD No comment entered. Ordering Provider: JUVENTINO FRIEDMAN Report Released Date/Time: Apr 27, 2024 03:55 PM Reporting Lab: [facility] [place] [facility] [address] [address] Performing Lab: [facility] [place] [address] [address] [facility] [place] [facility] CBC AND DIFF (AUTO) NEUTROPHILS /100 LEUKOCYTES IN BLOOD BY AUTOMATED COUNT 83.8 43.7 - 75.8 05/15 H Specimen Type: BLOOD No comment entered. Ordering Provider: JUVENTINO FRIEDMAN Report Released Date/Time: Apr 27, 2024 03:55 PM Reporting Lab: [facility] [place] [facility] [address] [address] Performing Lab: [facility] [place] [facility] [address] [place] [address] [facility] [place] [facility] CBC AND DIFF (AUTO) LYMPHOCYTES /100 LEUKOCYTES IN BLOOD BY AUTOMATED COUNT 8.2 14.0 - 42.3 05/15 L Specimen Type: BLOOD No comment entered. Ordering Provider: JUVENTINO FRIEDMAN Report Released Date/Time: Apr 27, 2024 03:55 PM Reporting Lab: [facility] [place] [facility] [address] [phone] Performing Lab: [facility] [place] [facility] [address] [address] [facility] [place] [facility] CBC AND DIFF (AUTO) MONOCYTES/1 00 LEUKOCYTES IN BLOOD BY AUTOMATED COUNT 6.3 5.1 - 13.7 05/15 Specimen Type: BLOOD No comment entered. Ordering Provider: JUVENTINO FRIEDMAN Report Released Date/Time: Apr 27, 2024 03:55 PM Reporting Lab: [facility] [place] [address] [phone] Performing Lab: [facility] [place] [address] [phone] [facility] [place] [facility] CBC AND DIFF (AUTO) EOSINOPHILS /100 LEUKOCYTES IN BLOOD BY AUTOMATED COUNT 0.7 0.4 - 6.8 05/15 Specimen Type: BLOOD No comment entered. Ordering Provider: JUVENTINO FRIEDMAN Report Released Date/Time: Apr 27, 2024 03:55 PM Reporting Lab: [facility] [place] [address] [phone] Performing Lab: [facility] [place] [facility] [address] [address] [facility] [place] [facility] CBC AND DIFF (AUTO) BASOPHILS/1 00 LEUKOCYTES IN BLOOD BY AUTOMATED COUNT 0.3 0.1 - 2.0 05/15 Specimen Type: BLOOD No comment entered. Ordering Provider: JUVENTINO FRIEDMAN Report Released Date/Time: Apr 27, 2024 03:55 PM Reporting Lab: [facility] [place] [facility] [address] [address] Performing Lab: [facility] [place] [address] [address] [facility] [place] [facility] CBC AND DIFF (AUTO) NEUTROPHILS [#/VOLUME] IN BLOOD BY AUTOMATED COUNT 11.92 10*3/u L 2.20 - 7.60 05/15 H Specimen Type: BLOOD No comment entered. Ordering Provider: JUVENTINO FRIEDMAN Report Released Date/Time: Apr 27, 2024 03:55 PM Reporting Lab: [facility] [place] [facility] [address] [address] Performing Lab: [facility] [facility] [address] [address] [facility] [place] [facility] CBC AND DIFF (AUTO) LYMPHOCYTES [#/VOLUME] IN BLOOD BY AUTOMATED COUNT 1.17 10*3/u L 1.00 - 3.20 05/15 Specimen Type: BLOOD No comment entered. Ordering Provider: JUVENTINO FRIEDMAN Report Released Date/Time: Apr 27, 2024 03:55 PM Reporting Lab: [facility] [place] [facility] [address] [address] Performing Lab: [facility] [facility] [address] [address] [facility] [place] [facility] CBC AND DIFF (AUTO) EOSINOPHILS [#/VOLUME] IN BLOOD BY AUTOMATED COUNT 0.10 10*3/u L 0.03 - 0.44 05/15 Specimen Type: BLOOD No comment entered. Ordering Provider: JUVENTINO FRIEDMAN Report Released Date/Time: Apr 27, 2024 03:55 PM Reporting Lab: [facility] [place] [facility] [address] [address] Performing Lab: [facility] [place] [address] [address] [facility] [place] [facility] CBC AND DIFF (AUTO) BASOPHILS [#/VOLUME] IN BLOOD BY AUTOMATED COUNT 0.04 10*3/u L 0.01 - 0.13 05/15 Specimen Type: BLOOD No comment entered. Ordering Provider: JUVENTINO FRIEDMAN Report Released Date/Time: Apr 27, 2024 03:55 PM Reporting Lab: [facility] [place] [facility] [address] [address] Performing Lab: [facility] [facility] [address] [address] [facility] [place] [facility] CBC AND DIFF (AUTO) IMMATURE GRANULOCYTE S/100 LEUKOCYTES IN BLOOD BY AUTOMATED COUNT 0.7 0.0 - 0.7 05/15 Specimen Type: BLOOD No comment entered. Ordering Provider: JUVENTINO FRIEDMAN Report Released Date/Time: Apr 27, 2024 03:55 PM Reporting Lab[facility] [address] [address] Per[facility] Lab: [facility] [address] [address] [facility] CBC AND DIFF (AUTO) IMMATURE GRANULOCYTE S [#/VOLUME] IN BLOOD 0.10 10*3/u L 0.00 - 0.06 05/15 H Specimen Type: BLOOD No comment entered. Ordering Provider: JUVENTINO FRIEDMAN Report Released Date/Time: Apr 27, 2024 03:55 PM Reporting Lab: [facility] [place] [address] [address] Per[facility] Lab[facility] [address] [address] [facility] CBC AND DIFF (AUTO) NRBC % 0.0 0.0 - 0.0 05/15 Specimen Type: BLOOD No comment entered. Ordering Provider: JUVENTINO FRIEDMAN Report Released Date/Time: Apr 27, 2024 03:55 PM Reporting Lab: [facility] [place] [address] [address] Performing Lab: [facility] [place] [address] [address] [facility] [place] [facility] CBC AND DIFF (AUTO) NRBC, ABS 0.00 10*3/u L 0.00 - 0.00 05/15 Specimen Type: BLOOD No comment entered. Ordering Provider: JUVENTINO FRIEDMAN Report Released Date/Time: Apr 27, 2024 03:55 PM Reporting Lab: [facility] [address] [address] Performing Lab: [facility] [address] [address] [facility] HEMOGLOBI N A1C PANEL HEMOGLOBIN A1C/HEMOGLO BIN.TOTAL IN BLOOD BY HPLC 7.0 4.0 - 5.6 05/15 H Specimen Type: BLOOD Comment: Values obtained from A1C measurement s can vary. For atypical A1C assays, a reported value of 7.0 could actually be between 6.72 and 7.28 if measured by a reference method. A reported value of 9.0 could actually be between 8.73 and 9.27. Ref: http://www. ngsp.org/[place] Pdata.asp Ordering Provider: JUVENTINO FRIEDMAN Report Released Date/Time: Apr 27, 2024 03:55 PM Reporting Lab: [address] [address] Performing Lab: [address] [address] [facility] TSH THYROTROPIN [UNITS/VOLU ME] IN SERUM OR PLASMA 0.40 u[IU]/ mL 0.35 - 5.00 05/15 Specimen Type: SERUM No comment entered. Ordering Provider: JUVENTINO FRIEDMAN Report Released Date/Time: Apr 27, 2024 03:55 PM Reporting Lab: [facility] [address] [address] Performing Lab: [facility] [address] [address] [facility] BNP (Natriure tic Peptide Brain) NATRIURETIC PEPTIDE B [MASS/VOLUM E] IN SERUM OR PLASMA 143 pg/mL 10 - 100 05/15 H Specimen Type: PLASMA No comment entered. Ordering Provider: JUVENTINO FRIEDMAN Report Released Date/Time: Apr 27, 2024 04:00 PM Reporting Lab: [facility] [place] [facility] [address] [address] Performing Lab: [facility] [place] [facility] [address] [address] [facility] [place] [facility] CALCIUM CALCIUM [MASS/VOLUM E] IN SERUM OR PLASMA 8.8 mg/dL 8.5 - 10.2 05/15 Specimen Type: SERUM No comment entered. Ordering Provider: JUVENTINO FRIEDMAN Report Released Date/Time: Apr 28, 2024 02:23 PM Reporting Lab: [facility] [place] [facility] [address] [address] Performing Lab: [facility] [place] [facility] [address] [address] [facility] [place] [facility] VITAMIN D (25-OH) 25-HYDROXYV ITAMIN D3 [MASS/VOLUM E] IN SERUM OR PLASMA 28 ng/mL 20 - 50 05/15 Specimen Type: SERUM No comment entered. Ordering Provider: JUVENTINO FRIEDMAN Report Released Date/Time: Apr 28, 2024 02:23 PM Reporting Lab: [facility] [place] [facility] [address] [address] Performing Lab: [facility] [place] [facility] [address] [address] [facility] [place] [facility] Vital Signs Combined list of inpatient and outpatient Vital Signs from Department of Defense and Veterans Affairs, ranging from 12 months to all on record, depending upon the facility. Vital Sign Value Date Comments Source SYSTOLIC BLOOD PRESSURE 106 06/11/2024 12:59:33 [facility] [place] [facility] DIASTOLIC BLOOD PRESSURE 70 06/11/2024 12:59:33 [facility] [place] [facility] PULSE OXIMETRY 98 06/11/2024 12:59:33 [facility] [place] [place] [facility] PAIN 1 06/11/2024 12:59:33 [facility] [place] [facility] TEMPERATURE 98.2 06/11/2024 12:59:33 [facility] [place] [facility] PULSE 81 06/11/2024 12:59:33 [facility] [place] [facility] RESPIRATION 18 06/11/2024 12:59:33 [facility] [place] [facility] SYSTOLIC BLOOD PRESSURE 120 05/15/2024 12:53:54 [facility] [place] [facility] DIASTOLIC BLOOD PRESSURE 58 05/15/2024 12:53:54 [facility] [place] [facility] PULSE OXIMETRY 98 05/15/2024 12:53:54 [facility] [place] [facility] PAIN 0 05/15/2024 12:53:54 [facility] [place] [facility] TEMPERATURE 97.7 05/15/2024 12:53:54 [facility] [place] [facility] PULSE 72 05/15/2024 12:53:54 [facility] [place] [facility] RESPIRATION 18 05/15/2024 12:53:54 [facility] [place] [facility] SYSTOLIC BLOOD PRESSURE 130 04/27/2024 15:51:11 VA [...] from Department of Veterans Affairs facilities going backup to the last 18 months, not all VA inpatient encounters are included; 2) Encounters from the Department of [employer] facilities going backup to 280 months. Location Location Details Encounter Type Encounter Number Reason For Visit Attending Provider ADM Date DC Date Status Disposition Source [facility] [place] [facility] En[facility] [id number] 01/22 [facility] [place] [facility] [place] [facility] En[facility] [id number] 08/18 [facility] [place] [facility] [facility] [place] [facility] En[facility] [id number] 11/15 [facility] [place] [facility] [place] [facility] En[facility] [id number] 11/15 [facility] [place] [facility] [facility] [place] [facility] En[facility] [id number] 11/20 [facility] [place] [facility] [facility] [place] [facility] En[facility] [id number] 11/24 [facility] [place] [facility] [place] [facility] En[facility] [id number] 11/26 [facility] [place] [facility] [place] [facility] En[facility] [id number] 12/03 [facility] [place] [facility] [place] [facility] En[facility] [id number] 12/04 [facility] [place] [facility] [place] [facility] En[facility] [id number] 12/04 [facility] [place] [facility] [place] [facility] [id number] 1.12/31 [facility] [place] [facility] [place] [facility] [id number] 1.01/06 [facility] [place] [facility] LD OFFICE O/P NEW MOD 45 MIN [id number] Diagnos is: ICD-10- CM I10 Essenti al (primar y) hyperte nsion STELEA,CAR MEN F 01/15 [place] [facility] [place] [facility] HC PRO PHONE CALL 5-10 MIN [id number] Diagnos is: ICD-10- CM I50.9 Heart failure , unspeci fied CASTILLO-MILTON TINEO MILDRED 01/20 [facility] [place] [facility] [place] [facility] [id number] 1.01/27 [facility] [place] [facility] [facility] [place] [facility] En[facility] [id number] 01/27 [facility] [place] [facility] [place] [facility] En[facility] [id number] ANNA TANNER 01/29 [facility] [place] [facility] [place] [facility] En[facility] [id number] 01/29 [facility] [place] [facility] [place] [facility] En[facility] [id number] 1.01/29 [facility] [place] [facility] [place] [facility] En[facility] [id number] 1.01/29 [facility] [place] [facility] PRO PHONE CALL 5-10 MIN [id number]. [id number] Diagnos is: ICD-10- CM Z74.1 Need for assista nce with persona l ITALO Story 01/29 [place] [facility] MTMS BY PHARM ADDL 15 MIN [id number] Diagnos is: ICD-10- CM I48.91 Unspeci fied atrial fibrill ation ELIANE CHUN 02/05 [facility] [place] [facility] En[facility] [id number] 1.02/05 [facility] [place] [facility] [place] [facility] [id number] 1.02/12 [facility] [place] [facility] [place] [facility] En[facility] [id number] [facility] [place] [facility] [facility] [place] [facility] [id number] 1.02/20 [facility] [place] [facility] [place] [facility] En[facility] [id number] /2024 [facility] [place] [facility] [place] [facility] Outpatient Encounter [id number] [facility] [place] [facility] [place] [facility] Outpatient Encounter [id number] 02/27 [facility] [place] [facility] [place] [facility] OT EVAL LOW COMPLEX 30 MIN [id number] 1. 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 REJI PRICE 03/10 [facility] [place] [facility] [place] [facility] Outpatient Encounter [id number] 1.03/11 [facility] [place] [facility] MTMS BY PHARM EST 15 MIN [id number] Diagnos is: ICD-10- CM Z51.81 Encount er for therape utic drug level monitor ELIANE Fuller 03/12 [facility] [place] [facility] RN E&M PLAN SVS, 15 MIN [id number] Diagnos is: ICD-10- CM I50.9 Heart failure , unspeci fied CASTILLO-CHARLEY TINEORI MILDRED 03/13 [facility] [place] [facility] [place] [facility] Outpatient Encounter [id number] 1.03/13 [facility] [place] [facility] [place] [facility] RN CARE EA 15 MIN HH/HOSPICE [id number] 1. Diagnos is: ICD-10- CM I50.9 Heart failure , unspeci fied ALLSOP,CARLOS ALBERTO MAXIMILIAN 03/13 [facility] [place] [facility] [place] [facility] En[facility] [id number] [facility] [place] [facility] [place] [facility] En[facility] [id number] [facility] [place] [facility] [place] [facility] SELF CARE MNGMENT TRAINING [id number] 1. Diagnos is: ICD-10- CM R54 Age-rel ated physica l debilit y CARLOS ALBERTO VIVAS 03/30 [facility] [place] [facility] [place] [facility] En[facility] [id number] 1.04/03 [facility] [place] [facility] [facility] [place] [facility] En[facility] [id number] 1.04/03 [facility] [place] [facility] [facility] [place] Encounter [id number] 1. CARLOS ALBERTO VIVAS 04/03 [facility] [place] [facility] [facility] [place] [facility] QNHP OL DIG ASSMT&MGMT 21+ [id number] Diagnos is: ICD-10- CM Z79.899 Other jail (curren t) drug therapy MIRI SAGE 04/06 [facility] [place] [place] En[facility] [id number] 04/07 [facility] [place] [facility] [place] Encounter [id number] 04/08 [facility] [place] [facility] [facility] [place] HHCP-SERV OF OT,EA 15 MIN [id number] Diagnos is: ICD-10- CM R26.9 Unspeci fied abnorma lities of gait and mobilit y TAYLOR,WES HY L 04/16 [facility] [place] [place] CASE MANAGEMENT [id number] Diagnos is: ICD-10- CM Z65.9 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 tanstephan Naik,SHELLEY 04/17 [facility] [place] [facility] [place] En[facility] [id number] [facility] [place] [facility] [facility] [place] Out[facility] Encounter [id number] 04/20 [facility] [place] [facility] [place] Out[facility] Encounter [id number] [facility] [place] [facility] [facility] [place] Out[facility] Encounter [id number] 04/23 [facility] [place] [place] SYNCH AUDIO-ONLY NEW MOD 45 [id number] Diagnos is: ICD-10- CM 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 JENNIFER-GRA DY,JUVENTINO 04/23 [facility] [place] [place] En[facility] [id number] 04/23 [facility] [place] [facility] [place] Out[facility] Encounter [id number] Diagnos is: ICD-10- CM 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 JENNIFER-GRA DY,JUVENTINO 04/27 [facility] [place] [place] [facility] [place] [facility] WOUND(S) CARE NON-SELECT SVETLANA [id number] Diagnos is: ICD-10- CM N18.9 Chronic kidney disease , unspeci fied CARLOS ALBERTO VIVAS MAXIMILIAN 05/15 [facility] [place] [facility] NQHP OL DIG ASSMT&MGMT 5-10 [id number] Diagnos is: ICD-10- CM Z04.89 Encount er for examina tion and observa tion for oth reasons ELIANE CHUN 05/18 [facility] [place] [facility] SYNCH AUDIO-ONLY EST LOW 20 [id number] Diagnos is: ICD-10- CM N18.9 Chronic kidney disease , unspeci fied JENNIFER-GRA DY,JUVENTINO 05/18 [facility] [place] [facility] [place] [facility] Outpatient Encounter [id number] 05/22 [facility] [place] [facility] [place] [facility] CASE MANAGEMENT [id number] Diagnos is: ICD-10- CM Z65.9 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 tanstephan NaikSHELLEY 05/27 [facility] [place] [facility] [place] [facility] Outpatient Encounter [id number] 06/04 [facility] [place] [place] [facility] IMMUNIZATI ON ADMIN EACH ADD [id number] CARLOS ALBERTO VIVAS MAXIMILIAN 06/11 [facility] [place] [facility] Social History Combined list of available smoking, tobacco, and other social history from Department of Defense and Veterans Affairs facilities. Social History Type Response Date Comment [facility] e Tobacco smoking status [facility] VA-TOBACCO FORMER USER 024 [place] History of tobacco use PA-TOBACCO QUIT 1 5 YRS OR MORE 01/16/2024 [place] Plan of Care List of future care activities from Department of Veterans Affairs facilities. Additional future care activities may be listed in the Assessment and Plan section. Date/Time Care Activity Care Activity Detail Facili ty 05/04/2024 Laboratory - Senior Geotechnical Engineer ry Order OCCULT BLOOD FIT X1 SCREEN(IN-HOUSE) STOOL FECES SP [facility] [place] [facility]
--- OUTSIDE RECORDS SUMMARY | 2024-06-16 16:16 | XMS_ITS ---
Author Name [facility] [place] [facility] [place] Address [address] [place] [address] Care Team Providers Care Overnight Associate Name Role Phone LIZ JUNG Primary Care Provider Unav ailable SHELLEY HERBERT [...] PART A Apr 22, 2001 PART A [id number] JENIFER ANAYA PATIENT MEDICARE (WNR) MEDICARE (M) PART B Apr 22, 2001 PART B [id number] JENIFER ANAYA PATIENT [employer]AN F May 11, 2008 PLANF [id number] JENIFER ANAYA PATIENT Selected Encounter This section includes the information on record at [place] for the Encounter. Date/Time Encounter Type Encounter Description Reason Provider Source May 18, 2024 10:10 AM SYNCH AUDIO-ONLY EST LOW 20 TELEPHONE [facility] ICD-10-CM N18.9 Chronic kidney disease, unspecified Neva JUNG IHGumaro Encounter Template Text not used by [place] Assessments - Encounter Diagnoses This section includes the primary and secondary diagnoses documented for the Encounter. Date/Time Primary/Secondary Diagnosis Diagnosis Name Provider Source May 18, 2024 10:10 AM PRIMARY Chronic kidney disease, unspecified LIZ JUNG [facility] May 18, 2024 10:10 AM SECONDARY Type 2 diabetes mellitus without complications LIZ JUNG [facility] May 18, 2024 10:10 AM SECONDARY Unspecified atrial fibrillation ALAN JUNGTHIA [facility] Plan of Treatment: Future Appointments (+ 6 months) and Future Tests (+/- 45 days) The Plan of Treatment section includes future care activities for the [facility] [place] [facility] This section includes future [...] of theEncounter. The data comes from all [place] treatment facilities. Test Date/Time Test Type Test Details Facility Name May 04, 2024 12:00 AM Laboratory - Chemi stry Order OCCULT BLOOD FIT X1 SCREEN(IN-HOUSE) STOOL FECES SP [facility] Lab Results: +/- 30 days of the encounter This section includes the Chemistry and Hematology Lab Results on record with [place] for the patient. Radiology Reports and Pathology Reports are provided separately, in subsequent sections. Lab Results This section contains the Chemistry/Hematology Results that were resulted 30 days before or 30 daysafter the date of the Encounter. Date/Time Source Result Type Result - Unit Interpretation Reference Range Comment May 15, 2024 12:30 PM [facility] BASIC METABOLIC PANEL (non-fasting) Specimen Type: SERUM No comment entered. Ordering Provider: Neva JUNG Report Released Date/Time: Apr 27, 2024 03:55 PM Reporting Lab: [facility] [address] [facility] [address] Performing Lab: [facility] [address] [facility] [address] UREA NITROGEN 29 mg/dL H 7-25 GLUCOSE 285 mg/dL H 65-100 SODIUM 130 mmol/L L 135-145 POTASSIUM 4.9 mmol/L 3.5-5.0 CHLORIDE 96 mmol/L L 100-110 CO2 23 meq/L 20-30 CREATININE, Serum 1.51 mg/dL H 0.50-1.40 eGFR(CKD-EPI 2020) 44 mL/min L >60 May 15, 2024 12:30 PM [facility] LIPID PANEL FASTING Specimen Type: SERUM No comment entered. Ordering Provider: Neva JUNG Report Released Date/Time: Apr 27, 2024 03:55 PM Reporting Lab: [address] [address] Performing Lab: [address] [address] CHOLESTEROL 101 mg/dL TRIGLYCERIDE 87 mg/dL 0-150 LDL calculated 45 mg/dL 0-129 CHOL/HDL 2.6 HDL CHOLESTEROL 39 mg/dL L 40-60 May 15, 2024 12:30 PM [facility] LIVER FUNCTION Specimen Type: SERUM No comment entered. Ordering Provider: Neva JUNG Report Released Date/Time: Apr 27, 2024 03:55 PM Reporting Lab: [address] [address] Performing Lab: [address] [address] PROTEIN,TOTAL 7.2 g/dL 6.0-8.3 ALBUMIN 3.3 g/dL L 3.5-5.0 ALKALINE PHOSPHATASE 92 U/L 40-150 AST 10 U/L 5-34 ALT 11 U/L BILIRUBIN, TOTAL 0.5 mg/dL 0.2-1.2 May 15, 2024 12:30 PM [facility] CBC AND DIFF (AUTO) Specimen Type: BLOOD No comment entered. Ordering Provider: Neva JUNG Report Released Date/Time: Apr 27, 2024 03:55 PM Reporting Lab: [address] [address] Performing Lab: [facility] [address] [facility] [address] WBC 14.22 10*3/uL H 4.50-11.00 RBC 3.45 [...] 10*3/uL 0.00-0.00 May 15, 2024 12:30 PM [facility] HEMOGLOBIN A1C PANEL Specimen Type: BLOOD [...] Apr 27, 2024 03:55 PM Reporting Lab: [facility] [address] [facility] [address] Performing Lab: [address] [address] HEMOGLOBIN A1C 7.0 H 4.0-5.6 May 15, 2024 12:30 PM [facility] TSH Specimen Type: SERUM No comment entered. Ordering Provider: Neva JUNG Report Released Date/Time: Apr 27, 2024 03:55 PM Reporting Lab: [facility] [address] [facility] [address] Performing Lab: [address] [address] TSH 0.40 u[IU]/mL 0.35-5.00 May 15, 2024 12:30 PM [facility] BNP (Natriuretic Peptide Brain) Specimen Type: PLASMA No comment entered. Ordering Provider: Neva JUNG Report Released Date/Time: Apr 27, 2024 04:00 PM Reporting Lab: [facility] [address] [facility] [address] Performing Lab: [address] [address] BNP (Natriuretic Peptide Brain) 143 pg/mL H 10-100 May 15, 2024 12:30 PM [facility] CALCIUM Specimen Type: SERUM No comment entered. Ordering Provider: Neva JUNG Report Released Date/Time: Apr 28, 2024 02:23 PM Reporting Lab: [facility] [address] [facility] [address] Performing Lab: [facility] [address] [facility] [address] CALCIUM 8.8 mg/dL 8.5-10.2 May 15, 2024 12:30 PM [facility] VITAMIN D (25-OH) Specimen Type: SERUM No comment entered. Ordering Provider: Neva JUNG Report Released Date/Time: Apr 28, 2024 02:23 PM Reporting Lab: [facility] [address] [facility] [address] Performing Lab: [address] [address] VITAMIN D (25-OH) 28 ng/mL 20-50 Encounter Notes: All associated encounter notes This section contains the clinical notes associated to the Encounter. Date/Time Encounter Note(s) Provider Source May 18, 2024 10:37 AM ADDENDUM: LOCAL TITLE: Addendum STANDARD TITLE: ADDENDUM DATE OF NOTE: MAY 18, 2024@10:37:27 ENTRY DATE: MAY 18, 2024@10:37:28 AUTHOR: MARGO JUNG COSIGNER: URGENCY: STATUS: COMPLETED Please mail to patient. Thank you. /seven JUNG RN,MSN,DELIVERY MGR-C HB NURSE PRACTITIONER Signed: 05/18/2024 10:37 Receipt Acknowledged By: 05/18/2024 10:42 /michell/ WOODY PHIPPS [facility] TABLE ATTENDANT --- Original Document --- 05/18/24 PATIENT LETTER (B): [facility] [address] [place] [id number] JENIFER ANAYA [address], [place] [address] Date:MAY 18, 2024 Dear JENIFER ANAYA, As discussed your white blood cells are elevated. You report overall feeling well and you recently were treated for a UTI by Dr. Lea. Your diabetes and cholesterol are well managed. Given mild anemia and reduced kidney function we have decreased your apixaban to 2.5mg 2x daily. We will repeat labs in 3 months. LAB CHEMISTRY & HEMATOLOGY Collection DT Specimen Test Name Result Units Ref Range 05/15/2024 12:[address]-FRZ 143 H pg/mL 10 - 100 05/15/2024 12:30 BLOOD !! HEMOGLOBIN A1C 7.0 H % 4.0 - 5.6 05/15/2024 12:30 BLOOD WBC 14.22 H K/cmm 4.50 - 11.00 RBC 3.45 L M/cmm 4.23 - 5.66 HGB 10.7 L g/dL 12.8 - 17 HCT 32.4 L % 39.2 - 50.4 MCV 93.9 fl 82 - 99 MCH 31.0 pg 26.2 - 32.6 MCHC 33.0 g/dL 30.8 - 35.1 RDW-CV 13.2 % 12.0 - 16.0 PLT 311 K/cmm 140 - 360 NEUT % 83.8 H % 43.7 - 75.8 LYMPH % 8.2 L % 14.0 - 42.3 MONO % 6.3 % 5.1 - 13.7 EOS % 0.7 % 0.4 - 6.8 BASO % 0.3 % 0.1 - 2.0 IMMATURE GRAN % 0.7 % 0.0 - 0.7 NRBC % 0.0 % 0.0 - 0.0 NEUT, ABS 11.92 H K/cmm 2.20 - 7.60 LYMPH, ABS 1.17 K/cmm 1.00 - 3.20 MONO, ABS 0.89 K/cmm 0.30 - 1.10 EOS, ABS 0.10 K/cmm 0.03 - 0.44 BASO, ABS 0.04 K/cmm 0.01 - 0.13 IMMATURE GRAN, AB 0.10 H K/cmm 0.00 - 0.06 NRBC, ABS 0.00 K/cmm 0.00 - 0.00 05/15/2024 12:30 SERUM TSH 0.40 uIU/mL 0.35 - 5.00 VITAMIN D (25-OH) 28 ng/mL 20 - 50 05/15/2024 12:30 SERUM CALCIUM 8.8 mg/dL 8.5 - 10.2 CREATININE, Serum 1.51 H mg/dL 0.50 - 1.40 eGFR(CKD-EPI 2020 44 L mL/min Ref: >=60 SODIUM 130 L mmol/L 135 - 145 POTASSIUM 4.9 mmol/L 3.5 - 5.0 CHLORIDE 96 L mmol/L 100 - 110 CO2 23 mEq/L 20 - 30 UREA NITROGEN 29 H mg/dL 7 - 25 GLUCOSE 285 H mg/dL 65 - 100 PROTEIN,TOTAL 7.2 g/dL 6.0 - 8.3 ALBUMIN 3.3 L g/dL 3.5 - 5.0 ALK BECCA 92 U/L 40 - 150 AST 10 U/L 5 - 34 BILIRUBIN, TOTAL 0.5 mg/dL 0.2 - 1.2 CHOLESTEROL 101 mg/dL <7 - 199 TRIGLYCERIDE 87 mg/dL 0 - 150 LDL calculated 45 mg/dL 0 - 129 CHOL/HDL 2.6 ALT 11 U/L <6 - 55 HDL CHOLESTEROL 39 L mg/dL 40 - 60 !! Please call [phone] if you have any questions or concerns. Sincerely, Liz Jung Nurse Practitioner [facility] [address] [place] [address] fax: [phone] CORY JUNG [facility] [place] [facility] May 18, 2024 10:34 AM LETTERS: LOCAL TITLE: PATIENT LETTER (B) STANDARD TITLE: LETTERS DATE OF NOTE: MAY 18, 2024@10:34 ENTRY DATE: MAY 18, 2024@10:34:27 AUTHOR: MARGO JUNG EXP COSIGNER: URGENCY: STATUS: COMPLETED PATIENT LETTER (B) Has ADDENDA [facility] [address] [place] [id number] JENIFER ANAYA [address] [place] [id number] Date:MAY 18, 2024 Dear JENIFER ANAYA, As discussed your white blood cells are elevated. You report overall feeling well and you recently were treated for a UTI by Dr. Lea. Your diabetes and cholesterol are well managed. Given mild anemia and reduced kidney function we have decreased your apixaban to 2.5mg 2x daily. We will repeat labs in 3 months. LAB CHEMISTRY & HEMATOLOGY Collection DT Specimen Test Name Result Units Ref Range 05/15/2024 12:[address]-FRZ 143 H pg/mL 10 - 100 05/15/2024 12:30 BLOOD !! HEMOGLOBIN A1C 7.0 H % 4.0 - 5.6 05/15/2024 12:30 BLOOD WBC 14.22 H K/cmm 4.50 - 11.00 RBC 3.45 L M/cmm 4.23 - 5.66 HGB 10.7 L g/dL 12.8 - 17 HCT 32.4 L % 39.2 - 50.4 MCV 93.9 fl 82 - 99 MCH 31.0 pg 26.2 - 32.6 MCHC 33.0 g/dL 30.8 - 35.1 RDW-CV 13.2 % 12.0 - 16.0 PLT 311 K/cmm 140 - 360 NEUT % 83.8 H % 43.7 - 75.8 LYMPH % 8.2 L % 14.0 - 42.3 MONO % 6.3 % 5.1 - 13.7 EOS % 0.7 % 0.4 - 6.8 BASO % 0.3 % 0.1 - 2.0 IMMATURE GRAN % 0.7 % 0.0 - 0.7 NRBC % 0.0 % 0.0 - 0.0 NEUT, ABS 11.92 H K/cmm 2.20 - 7.60 LYMPH, ABS 1.17 K/cmm 1.00 - 3.20 MONO, ABS 0.89 K/cmm 0.30 - 1.10 EOS, ABS 0.10 K/cmm 0.03 - 0.44 BASO, ABS 0.04 K/cmm 0.01 - 0.13 IMMATURE GRAN, AB 0.10 H K/cmm 0.00 - 0.06 NRBC, ABS 0.00 K/cmm 0.00 - 0.00 05/15/2024 12:30 SERUM TSH 0.40 uIU/mL 0.35 - 5.00 VITAMIN D (25-OH) 28 ng/mL 20 - 50 05/15/2024 12:30 SERUM CALCIUM 8.8 mg/dL 8.5 - 10.2 CREATININE, Serum 1.51 H mg/dL 0.50 - 1.40 eGFR(CKD-EPI 2020 44 L mL/min Ref: >=60 SODIUM 130 L mmol/L 135 - 145 POTASSIUM 4.9 mmol/L 3.5 - 5.0 CHLORIDE 96 L mmol/L 100 - 110 CO2 23 mEq/L 20 - 30 UREA NITROGEN 29 H mg/dL 7 - 25 GLUCOSE 285 H mg/dL 65 - 100 PROTEIN,TOTAL 7.2 g/dL 6.0 - 8.3 ALBUMIN 3.3 L g/dL 3.5 - 5.0 ALK BECCA 92 U/L 40 - 150 AST 10 U/L 5 - 34 BILIRUBIN, TOTAL 0.5 mg/dL 0.2 - 1.2 CHOLESTEROL 101 mg/dL <7 - 199 TRIGLYCERIDE 87 mg/dL 0 - 150 LDL calculated 45 mg/dL 0 - 129 CHOL/HDL 2.6 ALT 11 U/L <6 - 55 HDL CHOLESTEROL 39 L mg/dL 40 - 60 !! Please call [phone] if you have any questions or concerns. Sincerely, Liz Jung Nurse Practitioner [facility] [address] [place] [id number] fax: [phone] 05/18/2024 ADDENDUM STATUS: COMPLETED Please mail to patient. Thank you. /michell/ LIZ JUNG RN,MSN,DELIVERY MGR-C [facility] NURSE PRACTITIONER Signed: 05/18/2024 10:37 Receipt Acknowledged By: 05/18/2024 10:42 /seven PHIPPS [facility] TABLE ATTENDANT CORY JUNG [facility] [place] [facility] May 18, 2024 10:33 AM ADDENDUM: LOCAL TITLE: Addendum STANDARD TITLE: ADDENDUM DATE OF NOTE: MAY 18, 2024@10:33:56 ENTRY DATE: MAY 18, 2024@10:33:57 AUTHOR: MARGO JUNG COSIGNER: URGENCY: STATUS: COMPLETED Please fax to Dr. Lea at [facility]. Thank you. /michell/ LIZ JUNG RN,MSN,DELIVERY MGR-C [facility] NURSE PRACTITIONER Signed: 05/18/2024 10:34 Receipt Acknowledged By: 05/18/2024 10:49 /seven PHIPPS [facility] TABLE ATTENDANT --- Original Document --- 05/18/24 PATIENT LETTER (B): [facility] Name of office: Dr. Lea at [facility] fax number: Date:MAY 18, 2024 Re: JENIFER ANAYA, 37 Dr. Lea, We are sending this letter regarding the above patient. The has recently been admitted to our [place] Home Based Primary Care Program. We have under taken all Primary Care responsibilities since the admission date with patients consent, including prescribing and medication management. We appreciate any communication or updates to the medications/treatment plan. We can be reached by phone by [phone] and our fax number is [phone] Here is a copy of recent labs for your records. Please send last 2 visit notes and visit information going forward. LAB CHEMISTRY & HEMATOLOGY Collection DT Specimen Test Name Result Units Ref Range 05/15/2024 12:[address]-FRZ 143 H pg/mL 10 - 100 05/15/2024 12:30 BLOOD !! HEMOGLOBIN A1C 7.0 H % 4.0 - 5.6 05/15/2024 12:30 BLOOD WBC 14.22 H K/cmm 4.50 - 11.00 RBC 3.45 L M/cmm 4.23 - 5.66 HGB 10.7 L g/dL 12.8 - 17 HCT 32.4 L % 39.2 - 50.4 MCV 93.9 fl 82 - 99 MCH 31.0 pg 26.2 - 32.6 MCHC 33.0 g/dL 30.8 - 35.1 RDW-CV 13.2 % 12.0 - 16.0 PLT 311 K/cmm 140 - 360 NEUT % 83.8 H % 43.7 - 75.8 LYMPH % 8.2 L % 14.0 - 42.3 MONO % 6.3 % 5.1 - 13.7 EOS % 0.7 % 0.4 - 6.8 BASO % 0.3 % 0.1 - 2.0 IMMATURE GRAN % 0.7 % 0.0 - 0.7 NRBC % 0.0 % 0.0 - 0.0 NEUT, ABS 11.92 H K/cmm 2.20 - 7.60 LYMPH, ABS 1.17 K/cmm 1.00 - 3.20 MONO, ABS 0.89 K/cmm 0.30 - 1.10 EOS, ABS 0.10 K/cmm 0.03 - 0.44 BASO, ABS 0.04 K/cmm 0.01 - 0.13 IMMATURE GRAN, AB 0.10 H K/cmm 0.00 - 0.06 NRBC, ABS 0.00 K/cmm 0.00 - 0.00 05/15/2024 12:30 SERUM TSH 0.40 uIU/mL 0.35 - 5.00 VITAMIN D (25-OH) 28 ng/mL 20 - 50 05/15/2024 12:30 SERUM CALCIUM 8.8 mg/dL 8.5 - 10.2 CREATININE, Serum 1.51 H mg/dL 0.50 - 1.40 eGFR(CKD-EPI 2020 44 L mL/min Ref: >=60 SODIUM 130 L mmol/L 135 - 145 POTASSIUM 4.9 mmol/L 3.5 - 5.0 CHLORIDE 96 L mmol/L 100 - 110 CO2 23 mEq/L 20 - 30 UREA NITROGEN 29 H mg/dL 7 - 25 GLUCOSE 285 H mg/dL 65 - 100 PROTEIN,TOTAL 7.2 g/dL 6.0 - 8.3 ALBUMIN 3.3 L g/dL 3.5 - 5.0 ALK BECCA 92 U/L 40 - 150 AST 10 U/L 5 - 34 BILIRUBIN, TOTAL 0.5 mg/dL 0.2 - 1.2 CHOLESTEROL 101 mg/dL <7 - 199 TRIGLYCERIDE 87 mg/dL 0 - 150 LDL calculated 45 mg/dL 0 - 129 CHOL/HDL 2.6 ALT 11 U/L <6 - 55 HDL CHOLESTEROL 39 L mg/dL 40 - 60 We are grateful for the collaboration and ensuring that our Veterans are getting the best care possible. Please reach out with any questions. Sincerely, [facility] Primary Care Team Sincerely, Liz Jung Nurse Practitioner [facility] [address] [address] P: [phone] x [phone] fax: [phone] CORY JUNG [facility] [place] [facility] May 18, 2024 10:30 AM LETTERS: LOCAL TITLE: PATIENT LETTER (B) STANDARD TITLE: LETTERS DATE OF NOTE: MAY 18, 2024@10:30 ENTRY DATE: MAY 18, 2024@10:30:16 AUTHOR: MARGO JUNG EXP COSIGNER: URGENCY: STATUS: COMPLETED PATIENT LETTER (B) Has ADDENDA [facility] Name of office: Dr. Lea at [facility] fax number: Date:MAY 18, 2024 Re: JENIFER ANAYA, 36 Dr. Lea, We are sending this letter regarding the above patient. The has recently been admitted to our [place] Home Based Primary Care Program. We have under taken all Primary Care responsibilities since the admission date with patients consent, including prescribing and medication management. We appreciate any communication or updates to the medications/treatment plan. We can be reached by phone by [phone] and our fax number is [phone] Here is a copy of recent labs for your records. Please send last 2 visit notes and visit information going forward. LAB CHEMISTRY & HEMATOLOGY Collection DT Specimen Test Name Result Units Ref Range 05/15/2024 12:[address]-FRZ 143 H pg/mL 10 - 100 05/15/2024 12:30 BLOOD !! HEMOGLOBIN A1C 7.0 H % 4.0 - 5.6 05/15/2024 12:30 BLOOD WBC 14.22 H K/cmm 4.50 - 11.00 RBC 3.45 L M/cmm 4.23 - 5.66 HGB 10.7 L g/dL 12.8 - 17 HCT 32.4 L % 39.2 - 50.4 MCV 93.9 fl 82 - 99 MCH 31.0 pg 26.2 - 32.6 MCHC 33.0 g/dL 30.8 - 35.1 RDW-CV 13.2 % 12.0 - 16.0 PLT 311 K/cmm 140 - 360 NEUT % 83.8 H % 43.7 - 75.8 LYMPH % 8.2 L % 14.0 - 42.3 MONO % 6.3 % 5.1 - 13.7 EOS % 0.7 % 0.4 - 6.8 BASO % 0.3 % 0.1 - 2.0 IMMATURE GRAN % 0.7 % 0.0 - 0.7 NRBC % 0.0 % 0.0 - 0.0 NEUT, ABS 11.92 H K/cmm 2.20 - 7.60 LYMPH, ABS 1.17 K/cmm 1.00 - 3.20 MONO, ABS 0.89 K/cmm 0.30 - 1.10 EOS, ABS 0.10 K/cmm 0.03 - 0.44 BASO, ABS 0.04 K/cmm 0.01 - 0.13 IMMATURE GRAN, AB 0.10 H K/cmm 0.00 - 0.06 NRBC, ABS 0.00 K/cmm 0.00 - 0.00 05/15/2024 12:30 SERUM TSH 0.40 uIU/mL 0.35 - 5.00 VITAMIN D (25-OH) 28 ng/mL 20 - 50 05/15/2024 12:30 SERUM CALCIUM 8.8 mg/dL 8.5 - 10.2 CREATININE, Serum 1.51 H mg/dL 0.50 - 1.40 eGFR(CKD-EPI 2020 44 L mL/min Ref: >=60 SODIUM 130 L mmol/L 135 - 145 POTASSIUM 4.9 mmol/L 3.5 - 5.0 CHLORIDE 96 L mmol/L 100 - 110 CO2 23 mEq/L 20 - 30 UREA NITROGEN 29 H mg/dL 7 - 25 GLUCOSE 285 H mg/dL 65 - 100 PROTEIN,TOTAL 7.2 g/dL 6.0 - 8.3 ALBUMIN 3.3 L g/dL 3.5 - 5.0 ALK BECCA 92 U/L 40 - 150 AST 10 U/L 5 - 34 BILIRUBIN, TOTAL 0.5 mg/dL 0.2 - 1.2 CHOLESTEROL 101 mg/dL <7 - 199 TRIGLYCERIDE 87 mg/dL 0 - 150 LDL calculated 45 mg/dL 0 - 129 CHOL/HDL 2.6 ALT 11 U/L <6 - 55 HDL CHOLESTEROL 39 L mg/dL 40 - 60 We are grateful for the collaboration and ensuring that our Veterans are getting the best care possible. Please reach out with any questions. Sincerely, [facility] Primary Care Team Sincerely, Liz Jung Nurse Practitioner [facility] [address] [place] [address] P: [phone] x [phone] fax: [phone] 05/18/2024 ADDENDUM STATUS: COMPLETED Please fax to Dr. Lea at [facility]. Thank you. /michell/ LIZ JUNG RN,MSN,DELIVERY MGR-C [facility] NURSE PRACTITIONER Signed: 05/18/2024 10:34 Receipt Acknowledged By: * AWAITING SIGNATURE * WOODY PHIPPS CORY JUNG [place] [facility] [place] [facility] May 18, 2024 10:10 AM [facility] NOTE: LOCAL TITLE: HBPC TELEPHONE NOTE STANDARD TITLE: [facility] NOTE DATE OF NOTE: MAY 18, 2024@10:10 ENTRY DATE: MAY 18, 2024@10:10:29 AUTHOR: MARGO JUNG EXP COSIGNER: URGENCY: STATUS: COMPLETED S:Called JENIFER ANAYA PHONE NUMBER [CELLULAR] - PATIENT PHONE - TelePhone visit to review labs, patient reports feeling well. Was worried about his labs given he had sweats on his birthday. Spoke w ELISABETH Lara he was recently treated for UTI and ? on prophyactic medication. Unable to obtain Dr. Lea fax #. urology: Dr. Lea O: A+Ox4, thought logical, speech clear, breathing sounds unlabored. LAB CHEMISTRY & HEMATOLOGY Collection DT Specimen Test Name Result Units Ref Range 05/15/2024 12:[address]-FRZ 143 H pg/mL 10 - 100 05/15/2024 12:30 BLOOD !! HEMOGLOBIN A1C 7.0 H % 4.0 - 5.6 05/15/2024 12:30 BLOOD WBC 14.22 H K/cmm 4.50 - 11.00 RBC 3.45 L M/cmm 4.23 - 5.66 HGB 10.7 L g/dL 12.8 - 17 HCT 32.4 L % 39.2 - 50.4 MCV 93.9 fl 82 - 99 MCH 31.0 pg 26.2 - 32.6 MCHC 33.0 g/dL 30.8 - 35.1 RDW-CV 13.2 % 12.0 - 16.0 PLT 311 K/cmm 140 - 360 NEUT % 83.8 H % 43.7 - 75.8 LYMPH % 8.2 L % 14.0 - 42.3 MONO % 6.3 % 5.1 - 13.7 EOS % 0.7 % 0.4 - 6.8 BASO % 0.3 % 0.1 - 2.0 IMMATURE GRAN % 0.7 % 0.0 - 0.7 NRBC % 0.0 % 0.0 - 0.0 NEUT, ABS 11.92 H K/cmm 2.20 - 7.60 LYMPH, ABS 1.17 K/cmm 1.00 - 3.20 MONO, ABS 0.89 K/cmm 0.30 - 1.10 EOS, ABS 0.10 K/cmm 0.03 - 0.44 BASO, ABS 0.04 K/cmm 0.01 - 0.13 IMMATURE GRAN, AB 0.10 H K/cmm 0.00 - 0.06 NRBC, ABS 0.00 K/cmm 0.00 - 0.00 05/15/2024 12:30 SERUM TSH 0.40 uIU/mL 0.35 - 5.00 VITAMIN D (25-OH) 28 ng/mL 20 - 50 05/15/2024 12:30 SERUM CALCIUM 8.8 mg/dL 8.5 - 10.2 CREATININE, Serum 1.51 H mg/dL 0.50 - 1.40 eGFR(CKD-EPI 2020 44 L mL/min Ref: >=60 SODIUM 130 L mmol/L 135 - 145 POTASSIUM 4.9 mmol/L 3.5 - 5.0 CHLORIDE 96 L mmol/L 100 - 110 CO2 23 mEq/L 20 - 30 UREA NITROGEN 29 H mg/dL 7 - 25 GLUCOSE 285 H mg/dL 65 - 100 PROTEIN,TOTAL 7.2 g/dL 6.0 - 8.3 ALBUMIN 3.3 L g/dL 3.5 - 5.0 ALK BECCA 92 U/L 40 - 150 AST 10 U/L 5 - 34 BILIRUBIN, TOTAL 0.5 mg/dL 0.2 - 1.2 CHOLESTEROL 101 mg/dL <7 - 199 TRIGLYCERIDE 87 mg/dL 0 - 150 LDL calculated 45 mg/dL 0 - 129 CHOL/HDL 2.6 ALT 11 U/L <6 - 55 HDL CHOLESTEROL 39 L mg/dL 40 - 60 A/P: >reoccuring UTI: has leukocytosis and reports overall felling well. Recently completed ABX, request for records. >DM: A1C 7.0, cont to monitor, repeat labs 3 months >CKD/anemia: decrease eliquis to 2.5mg BID, VNA who prefills meds aware. f/u 3-6 months, sooner PRN Time spent: 11 min No barriers; Patient/family understands and agrees to current treatment plan. If pt has any questions, concerns, or changes in current health status he[facility]she will call [facility] Medication Reconciliation: Outpatient: Medication Reconciliation was attempted at this encounter, but unable to complete: Patient/Caregiver unable to confirm all the medications the patient is taking. /michell/ LIZ JUNG RN,MSN,DELIVERY MGR-C [facility] NURSE PRACTITIONER Signed: 05/18/2024 10:30 CORY JUNG [facility]
--- OUTSIDE RECORDS SUMMARY | 2024-06-16 16:16 | XMS_ITS ---
Author Name Department of Vetera Affairs ([place]) Organization [facility] Address [address] [place] [address] Care Team Providers Care Slot Key Person Name Role Phone JUVENTINO MARTIN Primary Care [...] PART A Apr 22, 2001 PART A [id number] JENIFER ANAYA PATIENT MEDICARE (WNR) MEDICARE (M) PART B Apr 22, 2001 PART B [id number] JENIFER ANAYA PATIENT blinkbox music [employer] MEDIGAP PLAN F May 11, 2008 PLANF [id number] JENIFER ANAYA PATIENT Selected Encounter This section includes the information on record at ME for the Encounter. Date/Time Encounter Type Encounter Description Reason Pro vider Source Jun 04, 2024 01:09 PM Outpatient Encounter ADMIN PAT ACTIVTIES (ANDRESNONCT) IHE Encounter Template Text not used by [...] BLOOD FIT X1 SCREEN(IN-HOUSE) STOOL FECES SP [facility] Lab Results: +/- 30 days of [...] Range Comment May 15, 2024 12:30 PM [facility] BASIC METABOLIC PANEL (non-fasting) Specimen Type: SERUM No comment entered. Ordering Provider: Neva MARTIN Report Released Date/Time: Apr 27, 2024 03:55 PM Reporting Lab: [facility] [address] [facility] [address] Performing Lab: [facility] [address] [facility] [address] UREA NITROGEN 29 mg/dL H 7-25 GLUCOSE 285 mg/dL H 65-100 SODIUM 130 mmol/L L 135-145 POTASSIUM 4.9 mmol/L 3.5-5.0 CHLORIDE 96 mmol/L L 100-110 CO2 23 meq/L 20-30 CREATININE, Serum 1.51 mg/dL H 0.50-1.40 eGFR(CKD-EPI 2020) 44 mL/min L >60 May 15, 2024 12:30 PM [facility] LIPID PANEL FASTING Specimen Type: SERUM No comment entered. Ordering Provider: Neva MARTIN Report Released Date/Time: Apr 27, 2024 03:55 PM Reporting Lab: [address] [address] Performing Lab: [address] [address] CHOLESTEROL 101 mg/dL TRIGLYCERIDE 87 mg/dL 0-150 LDL calculated 45 mg/dL 0-129 CHOL/HDL 2.6 HDL CHOLESTEROL 39 mg/dL L 40-60 May 15, 2024 12:30 PM [facility] LIVER FUNCTION Specimen Type: SERUM No comment entered. Ordering Provider: Neva MARTIN Report Released Date/Time: Apr 27, 2024 03:55 PM Reporting Lab: [address] [address] Performing Lab: [address] [address] PROTEIN,TOTAL 7.2 g/dL 6.0-8.3 ALBUMIN 3.3 g/dL L 3.5-5.0 ALKALINE PHOSPHATASE 92 U/L 40-150 AST 10 U/L 5-34 ALT 11 U/L BILIRUBIN, TOTAL 0.5 mg/dL 0.2-1.2 May 15, 2024 12:30 PM [facility] CBC AND DIFF (AUTO) Specimen Type: BLOOD No comment entered. Ordering Provider: Neva MARTIN Report Released Date/Time: Apr 27, 2024 03:55 PM Reporting Lab: [address] [address] Performing Lab: [address] [address] WBC 14.22 10*3/uL H 4.50-11.00 RBC 3.45 [...] 10*3/uL 0.00-0.00 May 15, 2024 12:30 PM [facility] HEMOGLOBIN A1C PANEL Specimen Type: BLOOD [...] Apr 27, 2024 03:55 PM Reporting Lab: [address] [address] Performing Lab: [address] [address] HEMOGLOBIN A1C 7.0 H 4.0-5.6 May 15, 2024 12:30 PM [facility] TSH Specimen Type: SERUM No comment entered. Ordering Provider: Neva MARTIN Report Released Date/Time: Apr 27, 2024 03:55 PM Reporting Lab: [facility] [place] [address] [address] Performing Lab: [place] [facility] [place] [address] [address] TSH 0.40 u[IU]/mL 0.35-5.00 May 15, 2024 12:30 PM [facility] BNP (Natriuretic Peptide Brain) Specimen Type: PLASMA No comment entered. Ordering Provider: Neva MARTIN Report Released Date/Time: Apr 27, 2024 04:00 PM Reporting Lab: [facility] [place] [address] [address] Performing Lab: [facility] [address] [address] BNP (Natriuretic Peptide Brain) 143 pg/mL H 10-100 May 15, 2024 12:30 PM [facility] CALCIUM Specimen Type: SERUM No comment entered. Ordering Provider: Neva MARTIN Report Released Date/Time: Apr 28, 2024 02:23 PM Reporting Lab: [facility] [place] [address] [address] Performing Lab: [facility] [address] [address] CALCIUM 8.8 mg/dL 8.5-10.2 May 15, 2024 12:30 PM [facility] VITAMIN D (25-OH) Specimen Type: SERUM No comment entered. Ordering Provider: Neva MARTIN Report Released Date/Time: Apr 28, 2024 02:23 PM Reporting Lab: [facility] [address] [address] Performing Lab: [facility] [address] [facility] [address] VITAMIN D (25-OH) 28 ng/mL 20-50 Encounter Notes: All associated encounter notes This section contains the clinical notes associated to the Encounter. Date/Time Encounter Note(s) Provider Source Jun 04, 2024 05:41 PM ADDENDUM: LOCAL TITLE: Addendum STANDARD TITLE: ADDENDUM DATE OF NOTE: JUN 04, 2024@17:41:17 ENTRY DATE: JUN 04, 2024@17:41:18 AUTHOR: LISA VIVAS EXP COSIGNER: URGENCY: STATUS: COMPLETED spoke w/ , looking for information re: payment for HISA puja work that has been completed. [place] is requesting a call return. Please advise at your convenience. Thank you! /michell/ LISA VIVAS RN, BSN NHUNG POTTERY MACHINE OPERATOR Signed: 06/04/2024 17:46 Receipt Acknowledged By: 06/12/2024 10:20 /michell/ JUAN DIEGO PRICE OTR/L OCCUPATIONAL THERAPIST 06/05/2024 09:22 /michell/ ISH Graham JOVITA --- Original Document --- 06/04/24 CCC: SCHEDULING ADMINISTRATION: Patient Demographics Patient Name: JENIFER ANAYA Patient Primary Phone: [phone] Patient Primary Address: [address] [place] [address] [place] [address] Patient : 1935 Patient Age: 89 Caller/Recipient Relation to Patient: Self Caller Name: JENIFER ANAYA Scheduling Patient Expects Callback: Yes Open Request: None of the above Administrative Administrative Note Reason: Other Administrative Note Comments: Patient is requesting a call back, about a stand up tub he had installed in his home. He wants to know if the [facility] is going to [facility] it. Please call back to confirm. IMPORTANT: This note was created by [facility] Clinical Contact Center staff. Please do not alert the staff member by adding them as a signer for future communications. Alerts are not monitored by this user. /seven SALES 1 [facility] Signed: 06/04/2024 13:09 Receipt Acknowledged By: 06/04/2024 17:41 /michell/ LISA VIVAS RN, BSN HBHAWA POTTERY MACHINE OPERATOR LISA VIVAS [place] [facility] [place] [facility] Jun 04, 2024 01:09 PM ADMINISTRATIVE NOT E: LOCAL TITLE: CCC: SCHEDULING ADMINISTRATION STANDARD TITLE: ADMINISTRATIVE NOTE DATE OF NOTE: JUN 04, 2024@13:09:54 ENTRY DATE: JUN 04, 2024@13:09:54 AUTHOR: EFE WU COSIGNER: URGENCY: STATUS: COMPLETED CCC: SCHEDULING ADMINISTRATION Has ADDENDA Patient Demographics Patient Name: JENIFER ANAYA Patient Primary Phone: [phone] Patient Primary [address]: [address] [place] [address] Patient : 1935 Patient Age: 89 Caller/Recipient Relation to Patient: Self Caller Name: JENIFER ANAYA Scheduling Patient Expects Callback: Yes Open Request: None of the above Administrative Administrative Note Reason: Other Administrative Note Comments: Patient is requesting a call back, about a stand up tub he had installed in his home. He [place] to [place] if the [place]. Please call back to confirm. IMPORTANT: This note was created by [facility] Clinical Contact Center staff. Please do not alert the staff member by adding them as a signer for future communications. Alerts are not monitored by this user. /seven SALES 1 [facility] Signed: 06/04/2024 13:09 Receipt Acknowledged By: 06/04/2024 17:41 /seven VIVAS RN, NANCY HOOKER POTTERY MACHINE OPERATOR 06/04/2024 ADDENDUM STATUS: COMPLETED spoke w/ , looking for information re: payment for HISA puja work that has been completed. is requesting a call return. Please advise at your convenience. Thank you! /es/ LISA VIVAS RN, BSN PC POTTERY MACHINE OPERATOR Signed: 06/04/2024 17:46 Receipt Acknowledged By: * AWAITING SIGNATURE * JUAN DIEGO PRICE * AWAITING SIGNATURE * ISH HUSSEIN [facility]ORGE [facility]
--- OUTSIDE RECORDS SUMMARY | 2024-06-16 16:17 | XMS_ITS | Clinical Summary ---
Author Organization [employer] Address [address] [facility] [address] [place] [address] Care Team Providers Care Rough Rounder Machine Name Role Phone Unavailable Primary Care Provider Unavailabl e Social History Tobacco Use Types Packs/Day Years Used Date Smoking Tobacco: Never Assessed Sex and Gender Information Value Date Recorded Sex Assigned at Male 02/19/2022 10:23 AM EDT Legal Sex Male 10:23 AM EDT Gender Identity Male 02/19/2022 10:23 AM EDT Sexual Orientation Straight 02/19/2022 10 :23 AM EDT Plan of Treatment Health Maintenance Due Date Last Done Comments Depression Screening 1935 Lipid Panel 1935 Alcohol/Substance Use Screening 1947 Tobacco Screening 1947 DTaP/Tdap/Td Vaccines (1 - Tdap) 1955 Pneumococcal Vaccine: 50+ Ye ars (1 of 1 - PCV) 1986 Zoster Vaccines (1 of 2) 1986 RSV Patients and Pa tients Aged 60 years or older (1 - 1-dose 75+ series) 2011 COVID-19 Vaccine (2023-2 5 season) 2023 Influenza Vaccine (#1) 2023 HIB Vaccines Aged Out No longer eligi ble based on patient's age to complete this topic HPV Vaccines Aged Out No longer eligi ble based on patient's age to complete this topic Hepatitis A Vaccines Aged Out No long er eligible based on patient's age to complete this topic Hepatitis B Vaccines Aged Out No long er eligible based on patient's age to complete this topic IPV Vaccines Aged Out No longer eligi ble based on patient's age to complete this topic Meningococcal Vaccine Aged Out No ines theodora eligible based on patient's age to complete this topic RSV under 20 months Aged Out No longe r eligible based on patient's age to complete this topic Rotavirus Vaccines Aged Out No longer eligible based on patient's age to complete this topic
--- OUTSIDE RECORDS SUMMARY | 2024-06-16 16:17 | XMS_ITS | Encounter Summary ---
Author Organization [employer] Address [address] [facility] [address] [place] [address] Care Team Providers Care Accounting Manager Controller Name Role Phone Unavailable Primary Care Provider Unavailabl e Encounter Details Date Type Department Care Team (Latest Contact Info) Description 06/22/2019 Abstract C CONVERSIONS Dental, Provider, DDS Social History Tobacco Use Types Packs/Day Years Used Date Smoking Tobacco: Never Assessed Sex and Gender Information Value Date Recorded Sex Assigned at Male 02/19/2022 10:23 AM EDT Legal Sex Male 10:23 AM EDT Gender Identity Male 02/19/2022 10:23 AM EDT Sexual Orientation Straight 02/19/2022 10 :23 AM EDT documented as of this encounter Plan of Treatment Not on file documented as of this encounter Visit Diagnoses Not on filedocumented in this encounter
--- OUTSIDE RECORDS SUMMARY | 2024-06-16 16:17 | XMS_ITS | Encounter Summary ---
Author Name Department of Vetera Affairs ([place]) Organization [facility] of [facility] ([place]) Address [address] [place] [address] Care Team Providers Care Elevator Worker Name Role Phone JUVENTINO MARTIN Primary Care Provider Unav ailable PIEDAD, SHELLEY Unavailable Unavailable DIANE SANTOS Unavailable Unavailable [place], [...] PART A Apr 22, 2001 PART A [id number] JENIFER ANAYA PATIENT MEDICARE (WNR) MEDICARE (M) PART B Apr 22, 2001 PART B [id number] JENIFER ANAYA PATIENT Liquid Light [employer] MED[employer] PL[employer] F May 11, 2008 PLANF [id number] EJNIFER ANAYA PATIENT Selected Encounter This section includes the information on record at [place] for the Encounter. Date/Time Encounter Type Encounter Description Reason Provider Source May 18, 2024 09:59 AM HP OL DIG ASSMT&MGMT 5-10 CLINICAL PHARMACY ICD-10-CM Z04.89 Encounter for examination and observation for oth reasons ADIELROBIN Fe IHE Encounter Template Text not used by ME Assessments - Encounter Diagnoses This section includes the primary and secondary diagnoses documented for the Encounter. Date/Time Primary/Secondary Diagnosis Diagnosis Name Provider Source May 18, 2024 10:01 AM PRIMARY Encounter for examination and observation for oth reasons [facility] Plan of Treatment: Future Appointments (+ [...] BLOOD FIT X1 SCREEN(IN-HOUSE) STOOL FECES SP [facility] App[facility] Lab Results: +/- 30 days [...] Range Comment May 15, 2024 12:30 PM [facility] BASIC METABOLIC PANEL (non-fasting) Specimen Type: SERUM No comment entered. Ordering Provider: Neva MARTIN Report Released Date/Time: Apr 27, 2024 03:55 PM Reporting Lab: [facility] Appinions [address] [address] Performing Lab: [place] [address] [address] UREA NITROGEN 29 mg/dL H 7-25 GLUCOSE 285 mg/dL H 65-100 SODIUM 130 mmol/L L 135-145 POTASSIUM 4.9 mmol/L 3.5-5.0 CHLORIDE 96 mmol/L L 100-110 CO2 23 meq/L 20-30 CREATININE, Serum 1.51 mg/dL H 0.50-1.40 eGFR(CKD-EPI 2020) 44 mL/min L >60 May 15, 2024 12:30 PM [facility] LIPID PANEL FASTING Specimen Type: SERUM No comment entered. Ordering Provider: Neva MARTIN Report Released Date/Time: Apr 27, 2024 03:55 PM Reporting Lab: [address] [address] Performing Lab: [address] [address] CHOLESTEROL 101 mg/dL TRIGLYCERIDE 87 mg/dL 0-150 LDL calculated 45 mg/dL 0-129 CHOL/HDL 2.6 HDL CHOLESTEROL 39 mg/dL L 40-60 May 15, 2024 12:30 PM [facility] LIVER FUNCTION Specimen Type: SERUM No comment entered. Ordering Provider: Neva MARTIN Report Released Date/Time: Apr 27, 2024 03:55 PM Reporting Lab: [address] [address] Performing Lab: [address] [address] PROTEIN,TOTAL 7.2 g/dL 6.0-8.3 ALBUMIN 3.3 g/dL L 3.5-5.0 ALKALINE PHOSPHATASE 92 U/L 40-150 AST 10 U/L 5-34 ALT 11 U/L BILIRUBIN, TOTAL 0.5 mg/dL 0.2-1.2 May 15, 2024 12:30 PM [facility] CBC AND DIFF (AUTO) Specimen Type: BLOOD No comment entered. Ordering Provider: Neva MARTIN Report Released Date/Time: Apr 27, 2024 03:55 PM Reporting Lab: [facility] [address] [facility] [address] Performing Lab: [facility] [address] [facility] [address] WBC 14.22 10*3/uL H 4.50-11.00 RBC 3.45 [...] 10*3/uL 0.00-0.00 May 15, 2024 12:30 PM [facility] HEMOGLOBIN A1C PANEL Specimen Type: BLOOD [...] Apr 27, 2024 03:55 PM Reporting Lab: [facility] [address] [facility] [address] Performing Lab: [facility] CN[facility]L [facility] [address] [facility] [address] HEMOGLOBIN A1C 7.0 H 4.0-5.6 May 15, 2024 12:30 PM [facility] TSH Specimen Type: SERUM No comment entered. Ordering Provider: Neva MARTIN Report Released Date/Time: Apr 27, 2024 03:55 PM Reporting Lab: [facility] [address] [facility] [address] Performing Lab: [facility] [address] [address] TSH 0.40 u[IU]/mL 0.35-5.00 May 15, 2024 12:30 PM [facility] BNP (Natriuretic Peptide Brain) Specimen Type: PLASMA No comment entered. Ordering Provider: Neva MARTIN Report Released Date/Time: Apr 27, 2024 04:00 PM Reporting Lab: [facility] [address] [facility] [address] Performing Lab: [facility] HIGHLANDSTRN [facility] [address] [address] BNP (Natriuretic Peptide Brain) 143 pg/mL H 10-100 May 15, 2024 12:30 PM [facility] CALCIUM Specimen Type: SERUM No comment entered. Ordering Provider: Neva MARTIN Report Released Date/Time: Apr 28, 2024 02:23 PM Reporting Lab: [facility] [address] [facility] [address] Performing Lab: [facility] [address] [address] CALCIUM 8.8 mg/dL 8.5-10.2 May 15, 2024 12:30 PM [facility] VITAMIN D (25-OH) Specimen Type: SERUM No comment entered. Ordering Provider: Neva MARTIN Report Released Date/Time: Apr 28, 2024 02:23 PM Reporting Lab: [facility] [address] [facility] [address] Performing Lab: [facility] [address] [facility] [address] VITAMIN D (25-OH) 28 ng/mL 20-50 Encounter Notes: All associated encounter notes This section contains the clinical notes associated to the Encounter. Date/Time Encounter Note(s) Provider Source May 18, 2024 09:59 AM PHARMACY MEDICATIO N MGT NOTE: LOCAL TITLE: PHARMACY ANTICOAGULATION NOTE STANDARD TITLE: PHARMACY MEDICATION MGT NOTE DATE OF NOTE: MAY 18, 2024@09:59 ENTRY DATE: MAY 18, 2024@09:59:11 AUTHOR: MERCEDEZ RAYMUNDO EXP COSIGNER: URGENCY: STATUS: COMPLETED PHARMACY ANTICOAGULATION NOTE Has ADDENDA ANTICOAGULATION DOAC MONITORING NOTE SUBJECTIVE: Patient identified through the DOAC population Management Tool based on the following criteria: [ X ] Dosing Issue [ ] Critical Drug Interaction [ ] Cancer Treatment [ ] Active NSAID [ ] Labs Overdue [ ] Prosthetic Valve Replacement [ ] Notable Lab Value [ ] Overdue for Refill [ ] Other: Comments: In absence of VTE, apixaban dose should be reduced to 2.5 mg BID for patients meeting two of the following three criteria: serum creatinine >=1.5, either age >=80, or weight <=60.0 kg OBJECTIVE: Indication for anticoagulation: [ X ] Atrial fibrilation [ ] Atrial flutter [ ] VTE (DVT or PE) [ ] Post-op DVT prophylaxis [ ] Other: Most recent lab values include the following: HGB: HGB Collection DT Specimen Test Name Result Units Ref Range 05/15/2024 12:30 BLOOD HGB 10.7 L g/dL 12.8 - 17 PLT: WBC Collection DT Specimen Test Name Result Units Ref Range 05/15/2024 12:30 BLOOD WBC 14.22 H K/cmm 4.50 - 11.00 Liver Function Tests Collection DT Spec AST ALT ALK BECCA ALBUMIN T BILI T. PROT 05/15/2024 12:30 SERUM 10 11 92 3.3 L 0.5 7.2 HEIGHT: WEIGHT: 160 lb [72.57 kg] (03/30/2024 21:50) BMI: BMI: CREATININE-EGFR 05/15/24 12:30 1.51 H CRCL IBW: CrCl(est): <Not Found> mL/min (Creat:1.51 05/15/24) CRCL ACT: 34.78 mL/min CRCL ADJ: <Not Found> ASSESSMENT: Pt is taking apixaban for atrial fibrillation. Please note, dose reduction to apixaban 2.5mg BID is recommended when *TWO* of the following are met: [X] age >/= 80 years [X] SCr >/= 1.5mg/dL [ ] weight </= 60kg Action required? [ X ] Yes [ ] No Comments: Pt may be considered for dose adjustment of apixaban now vs. continued trend in SCr to establish trend/need for dose change. Alert to PCP for review of most recent labs. Thank you for your review. PLAN: [ ] No action required, dismiss flag [ X ] Will intervene: [ ] Patient education via phone/letter [ ] Schedule phone/[id number] follow up [ ] Lab ordered [ ] Discontinue interacting medication [ ] Discontinue DOAC [ ] Change to alternative DOAC [ ] Change DOAC dose [ X ] Notify PCP [ ] Consult cardiology/hematology [ ] Other: Time spent: 8 mins /michell/ Mercedez Raymundo, PharmD, [facility] Clinical Trucking Manager Signed: 05/18/2024 10:01 Receipt Acknowledged By: 05/18/2024 10:15 /michell/ JUVENTINO MARTIN RN,MSN,BEHAVIORAL HEALTH CARE COORDINATOR-C [facility] NURSE PRACTITIONER 05/18/2024 ADDENDUM STATUS: COMPLETED Spoke w patient decreased eliquis to 2.5mg BID /michell/ JUVENTINO MARTIN RN,MSN,BEHAVIORAL HEALTH CARE COORDINATOR-C [facility] NURSE PRACTITIONER Signed: 05/18/2024 10:16 [facility] RAYMUNDOANDRIA [facility]
== END 2024-06-16 13:54 | disposition home or self-care (01) ==
LOC: HO.HUSH 13:16
PROVIDERS: PCP Internal Medicine; Visit Provider Urology
DX: R33.9 Retention of urine, unspecified (principal); N39.0 Urinary tract infection, site not specified
CPT/HCPCS: 99213; G2211

== ENCOUNTER → 2024-06-16 13:16 | Outpatient (BNVA) | payer MEDICARE, OTHER, SELFPAY | PROVIDERS: PCP Internal Medicine; Visit Provider Urology | DX: R33.9 Retention of urine, unspecified (principal); N39.0 Urinary tract infection, site not specified | CPT/HCPCS: 99212 ==

== ENCOUNTER 2024-07-10 08:18 | Inpatient (IN) | payer OTHER, SELFPAY ==
[2024-07-10] VITALS (11 sets, daily range): BP systolic 76–125; BP diastolic 34–64; PULSE 75–113; RESP 13–19; TEMP 36.4–37.7; O2SAT 88–99; BMI 23.2
--- NOTE | ~2024-07-10 | XR_ITS ---
EXAMINATION: XR CHEST 1 VIEW HISTORY: sob COMPARISON: Comparison is made with the prior examination dated 04/30/2024. FINDINGS: A single AP portable view of the chest performed at 8:50 AM is submitted. Again seen is a calcified pleural plaque at the right lung base. There is a small right pleural effusion with adjacent subsegmental atelectasis versus scar. The left lung is clear. There is no pneumothorax or pulmonary vascular congestion. The heart is normal in size. There is degenerative disc disease of the spine. XR/XR chest 1V IMPRESSION: Calcified pleural plaques. Small right pleural effusion with adjacent subsegmental atelectasis versus scar. Electronically signed by: Jeffrey Ugalde MD 07/10/2024 08:58 AM EDT
--- NOTE | 2024-07-10 08:35 | ECG_ITS ---
Test Reason : WEAKNESS Blood Pressure : */* mmHG Vent. Rate : 88 BPM Atrial Rate : 88 BPM P-R Int : 172 ms QRS Dur : 130 ms QT Int : 418 ms P-R-T Axes : 8 -33 102 degrees QTcB Int : 505 ms Normal sinus rhythm Left axis deviation Non-specific intra-ventricular conduction block Cannot rule out Septal infarct (cited on or before 30-Apr-2024) Abnormal ECG When compared with ECG of 30-Apr-2024 11:06, Questionable change in initial forces of Septal leads T wave inversion more evident in Lateral leads Referred By: Dodie Capellan Electronically Signed By: Devaughn Blanca
[2024-07-10 09:10] LABS: MANUAL DIFF FLAG NO
[2024-07-10 09:12] LABS: Basophils Percent Auto 0.4 % (0-2); Eosinophils Absolute Auto 0.3 X10*3/uL (0.0-0.4); Eosinophils Percent Auto 2.8 % (0-4); Hematocrit 29.4 % (42.0-52.0); Imm Gran Abs Auto 0.07 X10*3/uL (0.00-0.03); Imm Gran Pct Auto 0.6 % (0.0-0.4); Lymphocytes Absolute Auto 1.1 X10*3/uL (1.2-4.9); Lymphocytes Percent Auto 9.8 % (20-40); Mean Corpuscular Hemoglobin 30.6 pg (27.0-33.0); Mean Corpuscular Volume 89.9 fL (80.0-98.0); Mean Platelet Volume 9.3 fL (9.4-12.4); Monocytes Absolute Auto 0.8 X10*3/uL (0.1-1.2); Monocytes Percent Auto 7.5 % (2-11); Neutrophils Absolute Auto 8.8 x10*3/uL (2.0-8.3); Neutrophils Percent Auto 78.9 % (45-73); Platelet Count 318 X10*3/uL (160-400); Red Blood Count 3.27 X10*6/uL (4.60-5.80); Red Cell Distribution Width 13.7 % (11.0-16.0); White Blood Count 11.1 X10*3/uL (4.8-10.8)
[2024-07-10 09:18] LABS: INTERNATIONAL NORM RATIO 1.3 (0.9-1.1); Prothrombin Time 15.1 SEC (10.9-12.4)
[2024-07-10 09:31] LABS: Ethanol < 10 mg/dL
[2024-07-10 09:35] LABS: Alanine Aminotransferase < 6 U/L (0-40); Albumin Level 3.4 g/dL (3.5-5.0); Alkaline Phosphatase 89 U/L (39-117); Anion Gap 16 (12-20); Aspartate Amino Transferase 14 U/L (5-37); Bilirubin Total 0.8 mg/dL (0.0-1.0); Blood Urea Nitrogen 25 mg/dL (9-16); Calcium 8.8 mg/dL (8.4-10.2); Carbon Dioxide 19 mmol/L (22-29); Chloride 100 mmol/L (96-108); Creatinine Clr Calc Pharmacy 36.1; Estimated Glomerular Filt Rate 46; Glucose Random 159 mg/dL (60-115); Potassium 4.5 mmol/L (3.3-5.1); Sodium 130 mmol/L (135-145); Total Protein 7.2 g/dL (6.5-8.0)
[2024-07-10 09:39] LABS: Magnesium 1.4 mg/dL (1.6-2.6); Troponin-I High Sensitivity 3.2 ng/L (<3.5-35.0)
[2024-07-10] MEDS: SODIUM CHLORIDE 2205 ML IV (09:44)
[2024-07-10] MEDS: cefTRIAXone sodium 1 GM VIAL IVPUSH (09:45)
[2024-07-10 09:58] LABS: Appearance Urine Turbid; Color Urine Dark Yellow; Glucose Urine UA Negative (Negative); Leukocyte Esterase Urine Large (3+) (Negative); Nitrite Urine Positive (Negative); PH 5.5 (5.0-9.0); UMIC TRIGGER UACC YES; Urine Blood Large (3+) (Negative); Urine Ketones Trace mg/dL (Negative); Urine Protein 300 (3+) mg/dL (Neg-Trace)
[2024-07-10 10:07] LABS: Bacteria Urine 4+ (None Seen); UACC Culture Trigger YES; WBC Urine >50 /HPF (0-5)
[2024-07-10] MEDS: Magnesium Sulfate/H2O 2 GM/50 ML PIGGYBACK IV (11:05)
[2024-07-10 11:09] LABS: Reflex Lactate? Lactic Acid Added
--- NOTE | 2024-07-10 11:46 | ED_ITS ---
HPI - General Adult General Chief complaint: Weakness Stated complaint: WEAKNESS PER EMS Time Seen by Provider: 07/10/24 08:35 Source: patient and EMS Mode of arrival: EMS Limitations: no limitations History of Present Illness ED Provider: DAHIANA Capellan HPI narrative: This is an 89-year-old male past medical history significant for atrial fibrillation on anticoagulants, CAD, atrial tachycardia, ischemic cardiomyopathy, heart failure, alcohol abuse, hyperlipidemia, diabetes, who presents to the emergency department with feeling unwell for months he reports he just feels weak. However feeling unwell has worsened over the past few days but at its worse this morning he reports he felt like he could not even get up out of bed so his son decided to call 911. He denies any associated pain. He denies chest pain, shortness of breath, nausea, vomiting, abdominal pain, headache, vision changes, dizziness, weakness, fevers, chills. He has a suprapubic cath he notes normal output, no issues associated with this. Related Data Home Medications ?Medication ?Instructions ?Recorded ?Confirmed acetaminophen 500 mg tablet 1,000 mg PO Q6H PRN Pain 11/16/23 04/23/24 Previous Rx's ?Medication ?Instructions ?Recorded blood-glucose meter (Accu-Chek #1 ea 05/24/22 Guide Glucose Meter) blood-glucose meter (FreeStyle #1 ea 06/09/22 Lite Meter kit) amiodarone 200 mg tablet 200 mg PO DAILY 90 days #90 tabs 01/15/24 apixaban 5 mg tablet (Eliquis) 5 mg PO BID #180 tabs 01/28/24 blood sugar diagnostic (FreeStyle #100 ea 02/11/24 Lite Strips) spironolactone 25 mg tablet 25 mg PO DAILY #90 tabs 02/11/24 atorvastatin 40 mg tablet 40 mg PO BEDTIME #90 tabs 02/17/24 metformin 500 mg tablet 1,000 mg (2 x 500 mg) PO BID 30 02/17/24 days #120 tabs finasteride 5 mg tablet 5 mg PO DAILY 90 days #90 tabs 03/02/24 tamsulosin 0.4 mg capsule 0.4 mg PO DAILY 90 days #90 caps 03/02/24 furosemide 20 mg tablet 20 mg PO DAILY PRN >90 SBP #90 tabs 11/27/24 solifenacin 5 mg tablet (Vesicare) 5 mg PO DAILY 30 days #30 tabs 03/31/24 levofloxacin 250 mg tablet 250 mg PO DAILY 7 days #7 tabs 05/01/24 methenamine hippurate 1 gram tablet 1 g PO DAILY 90 days #90 tabs 05/01/24 ascorbic acid (vitamin C) 1,000 mg 1,000 mg PO DAILY 90 days #90 tabs 06/16/24 tablet Allergies Allergy/AdvReac Type Severity Reaction Status Date / Time No Known Allergies Allergy Verified 07/10/24 08:46 [No Known Allergies*] Review of Systems 2 Review of Systems: Yes all other systems are reviewed and are negative PMFSH Past Medical History Attestation statement: The following information was validated with the patient. Source: old records reviewed and nursing notes reviewed Medical History (Updated 07/10/24 @ 12:21 by JOE Wan) HFrEF (heart failure with reduced ejection fraction) Hematuria Abdominal pain Sepsis Urinary tract infection associated with cystostomy catheter CAD (coronary artery disease) Acute exacerbation of CHF (congestive heart failure) Hyperlipidemia Alcohol abuse Diabetes mellitus Hypertension Surgical History History of cardiac cath History of hernia repair Family History Family History Father Liver problem Mother Past heart attack Brother Cancer Sister Cancer Social History Social History Household Members: Family and Children Housing: House Do you presently have visiting nurse or other home services: Yes ([facility] & Grandson helps with care.) Unable to assess alcohol history related to: Unknown Alcohol intake: former Patient Tobacco Use Status: Former Tobacco user Tobacco use type: Cigarette (quit 57 years ago) Smoked in Last 30 Days: No e-Cigarette/Vaping Use: Never Used Second Hand Smoke Exposure: No Use of substances other than those prescribed or required for medical reasons: No Advance Directives: No Advance Directives Information Provided: No Do you have a plan to hurt others: No Plan service: Yes Current occupational status: retired 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 Current occupational exposures/hazards: No Cognitive needs: No Hearing needs: No Vision needs: Yes (reading glasses) Physical Exam ED Vital Signs: Vital Signs - 24 hr 07/10/24 08:43 07/10/24 09:25 07/10/24 10:45 Temperature 97.9 F 99.9 F 98.9 F Pulse Rate 85 89 78 Respiratory Rate 18 19 Blood Pressure 76/34 L 85/52 L 117/64 Pulse Oximetry 88 L 95 98 Oxygen Delivery Method Room Air Nasal Cannula Nasal Cannula Oxygen Flow Rate 2 2 07/10/24 11:20 Temperature 98.9 F Pulse Rate 76 Respiratory Rate 16 Blood Pressure 108/54 L Pulse Oximetry 99 Oxygen Delivery Method Nasal Cannula Oxygen Flow Rate 2 BMI result Body Mass Index 23.2 vss Appearance: Alert.? Oriented X3.? No acute distress.? Head: Normocephalic, atraumatic, no step-offs or deformities Eyes: Pupils equal, round and reactive to light.? Neck: Normal inspection.? Neck supple.? CVS: Normal heart rate and rhythm.? Pulses normal.? Respiratory: No respiratory distress.? Breath sounds normal.? Abdomen: Soft and nontender.? Skin: Skin warm and dry.? Normal skin color.? Normal skin turgor.? Extremities: No lower extremity edema.? No calf ttp. Global weakness Back: No midline tenderness, no C-spine tenderness, full range of motion, no CVA tenderness bilaterally Neuro: Oriented X 3.? No motor deficit.? No sensory deficit. CN 2-12 intact Course Reevaluation(s) Reevaluation #1: CBC with leukocytosis and neutrophil predominance. IV fluids given. BUN of 25, creatinine 1.46, 30 cc/kilos bolus ordered. Patient's lactic acid 7. Antibiotics ordered. Magnesium 1.4 will order IV Mag. UA positive for nitrates and 4+ bacteria. Patient's ethanol negative. Chest x-ray small right pleural effusion with adjacent subsegmental atelectasis. Time: 11:47 Reevaluation #2: Dimer 276 age adjusted 440 Age-Adjusted D-dimer for Venous Thromboembolism (VTE) from [facility] on 07/10/2024 All calculations should be rechecked by clinician prior to use RESULT SUMMARY: 440 ?g/L Age-adjusted D-dimer cutoff, DDU VTE unlikely Reported D-dimer is less than or equal to cutoff; consider alternative diagnosis INPUTS: Age ?> 89 years D-dimer level reported by lab ?> 276 ?g/L D-dimer unit type ?> 1 = DDU (unadjusted cutoff typically 230-250 or 0.23-0.25) Time: 12:30 Medications Administered Discontinued Medications Generic Name Dose Route Start Last Admin Trade Name Evelio PRN Reason Stop Dose Admin Ceftriaxone Sodium 1 gm 07/10/24 09:23 07/10/24 09:45 Ceftriaxone Sodium 1 Gm Vial IVPUSH 07/10/24 09:24 1 gm ONCE ONE Administration Sodium Chloride 2,205 mls @ 2,205 mls/hr 07/10/24 09:23 07/10/24 10:58 Ns 30 ml/kg infuse over 1 hr (2205 ml) 07/10/24 10:22 Infused IV Infusion .Q1H STA Magnesium Sulfate 2 gm in 50 mls @ 25 mls/hr 07/10/24 10:09 07/10/24 11:05 Magnesium Sulfate/H2o IV 07/10/24 12:08 25 mls/hr ONCE ONE Administration Medical Decision Making Medical Decision Making [facility] Narrative: 09 89-year-old male presents with weakness for the last few months acutely worsening over the past few days. He denies shortness of breath however his O2 was noted to be low on arrival. Physical exam global weakness no focal neurological deficits. Diminished breath sounds bilaterally. Faint bibasilar crackles. History and physical exam concerning for UTI versus upper respiratory infection versus bronchitis. Unlikely pneumonia, PE, ACS, dissection. No signs of acute respiratory distress. No signs of intracranial hemorrhage, stroke, posterior stroke. Will rule out metabolic derangements. Patient's O2 less than 90 this could be secondary to viral illness unlikely PE, pneumothorax, pneumonia. Plan labs, imaging Patient noted to be hypotensive, IV fluids initiated, inpatient nicely responding At this time infection suspected. Antibiotics also ordered. Differential Diagnosis Differential Diagnoses: The differential diagnosis associated with the presentation includes (History and physical exam concerning for UTI versus upper respiratory infection versus bronchitis. Unlikely pneumonia, PE, ACS, dissection. No signs of acute respiratory distress. No signs of intracranial hemorrhage, stroke, posterior stroke. Will rule out metabolic derangements.) Admission/Observation Consideration of admission/observation: Escalation of care including admission/observation considered Lab Data [facility] Lab Attestation statement: I reviewed the patient's lab results. 07/10/24 09:02 07/10/24 09:02 Labs: Lab Results 07/10/24 07/10/24 07/10/24 Range/Units 09:02 09:50 11:18 WBC 11.1 H (4.8-10.8) X10*3/uL RBC 3.27 L (4.60-5.80) X10*6/uL Hgb 10.0 L (14.0-18.0) g/dl Hct 29.4 L (42.0-52.0) % MCV 89.9 (80.0-98.0) fL MCH 30.6 (27.0-33.0) pg MCHC 34.0 (31.0-36.0) g/dl RDW 13.7 (11.0-16.0) % Plt Count 318 (160-400) X10*3/uL MPV 9.3 L (9.4-12.4) fL Immature Gran % (Auto) 0.6 H (0.0-0.4) % Neut % (Auto) 78.9 H (45-73) % Lymph % (Auto) 9.8 L (20-40) % [place] % (Auto) 7.5 (2-11) % Eos % (Auto) 2.8 (0-4) % Baso % (Auto) 0.4 (0-2) % Lymph # (Auto) 1.1 L (1.2-4.9) X10*3/uL [place] # (Auto) 0.8 (0.1-1.2) X10*3/uL Eos # (Auto) 0.3 (0.0-0.4) X10*3/uL Baso # (Auto) 0.0 (0.0-0.2) X10*3/uL Abs Immat Gran (auto) 0.07 H (0.00-0.03) X10*3/uL Absolute Neuts (auto) 8.8 H (2.0-8.3) x10*3/uL Absolute Nucleated RBC 0.000 (0.0-0.012) X10*3/uL Nucleated RBC % (auto) 0.0 (0.0-0.2) /100WBC PT 15.1 H (10.9-12.4) SEC INR 1.3 H (0.9-1.1) D-Dimer High Sensitivty 276 NG/ML Sodium 130 L (135-145) mmol/L Potassium 4.5 (3.3-5.1) mmol/L Chloride 100 (96-108) mmol/L Carbon Dioxide 19 L (22-29) mmol/L Anion Gap 16 (12-20) BUN 25 H (9-16) mg/dL Creatinine 1.46 H (0.5-1.4) mg/dL Estim Creat Clear Calc 36.1 Estimated GFR 46 Random Glucose 159 H (60-115) mg/dL Lactic Acid 7.0 H* (0.5-2.0) mmol/L Lactic Acid F/U @ 2Hr 2.5 H* (0.5-2.0) mmol/L Calcium 8.8 D (8.4-10.2) mg/dL Magnesium 1.4 L* (1.6-2.6) mg/dL Total Bilirubin 0.8 (0.0-1.0) mg/dL AST 14 (5-37) U/L ALT < 6 (0-40) U/L Alkaline Phosphatase 89 (39-117) U/L Troponin I High Sens 3.2 D (<3.5-35.0) ng/L Total Protein 7.2 (6.5-8.0) g/dL Albumin 3.4 L (3.5-5.0) g/dL Urine Color Dark Yellow Urine Appearance Turbid Urine pH 5.5 (5.0-9.0) Ur Specific [place] 1.020 (1.005-1.025) Urine Protein 300 (3+) H (Neg-Trace) mg/dL Urine Glucose (UA) Negative (Negative) mg/dL Urine Ketones Trace (Negative) mg/dL Urine Blood Large (3+) H (Negative) Urine Nitrite Positive H (Negative) Ur Leukocyte Esterase Large (3+) H (Negative) Urine RBC 6-10 H (0-2) /HPF Urine WBC >50 H (0-5) /HPF Ur Squamous Epith Cells 6-10 (0-2) /HPF Urine Bacteria 4+ (None Seen) Hyaline Casts 3-5 (0-2) /LPF Urine Yeast Present Ethyl Alcohol < 10 mg/dL Independent Interpretation I performed an independent interpretation of an: Plain X-Ray (XR/XR chest 1V IMPRESSION: Calcified pleural plaques. Small right pleural effusion with adjacent subsegmental atelectasis versus scar. ) Radiology Impression Discussion of test interpretation with radiology: I have reviewed the radiologist's reading. External Record Review External record reviewed: Inpatient record, Office record, Outpatient record, Prior outpatient labs, Prior outpatient radiology, Primary care record and Outside ED record Chronic Conditions Patient?s care impacted by: Other (see hpi) Critical Care Time Critical Care Time Critical Care Time: Yes Total Critical Care Time: 45 Attestation: I attest to this time spent taking care of the patient, obtaining history, physical, reviewing labs, imaging, treatment of patients condition +/- specialist/hospitalist consult +/- procedure Discharge Plan Discharge Clinical Impression: Sepsis, UTI (urinary tract infection), Hypoxia Patient Disposition: Admitted As Inpatient Print Language: Togolese
[2024-07-10 11:51] LABS: ~Lactic Acid-LAB USE ONLY 2.5 mmol/L (0.5-2.0)
--- NOTE | 2024-07-10 12:02 | P.HPHOSP_ITS ---
History of Present Illness Date of Service: 07/10/24 Attending physician on admission: Huber Hathaway Chief Complaint: weakness This is an 89-year-old male with past medical history hypertension, hyperlipidemia, cataract repair, ETOH use (last use 5 weeks ago), anemia, heart failure with reduced EF of 15-20%, coronary artery disease involving current occlusion of the LAD (patient is not a candidate for stents or open heart surgery), BPH with chronic suprapubic catheter site, atrial fibrillation on amiodarone and anticoagulation, ischemic cardiomyopathy, doo-rtccnop-[id number] diabetes, osteoarthritis and history of dysphagia with recent EGD back in April of 2024 status post food bolus issue, and intermittent diarrhea presents to the emergency room via 911 due to inability to get out of bed this morning. Patient reports increasing weakness over the last 24 hours. Pt usually can walk well with walker. Pt lives with son and grandson and son called 911. Pt at first did not want to come in to be seen. Patient denied any fever, shortness of breath at rest or with exertion, productive cough, chills, night sweats or recent diarrhea. Patient has not traveled recently. Pt has had no recent falls or change in cognition. Patient offers that his suprapubic catheter that is left in chronically was last changed 2 weeks ago by the [facility]. Patient states that the catheter has required changing more often, sooner than the usual 30 days, due to irritability at the suprapubic insertion site. Patient last saw a urologist approximately 2 weeks ago and no concerns were raised. Nursing states when urine sample was collected the urine consistency was similar to chicken soup and the odor was foul. There was some minimal dried crusty drainage at the suprapubic site upon presentation to the ED. It is believed that UTI is source of pt's sepsis. Initially patient was also hypoxic. CXR noted with small pleural effusion, same as prior CXR witrh previous admission. Pt has significant hx of HFrEF, 15 to 20% and is normally on Lasix 20 mg daily and spironolactone. Pt was previously on ARB but this was discontinued during prior admission. Na 130 0n admission. Noted though that GFR has gone down from >60 to 46 since coming off the ARB (valsartan). Cardiology notes in outpatient visit 02/2024 that pt can no longer tolerate VI/ARB due to low BP. Exam was reassuring as there were no adventitious lung sounds, no JVD. BNP is pending. Pt is responding well to 2L NC. Pt does have O2 at home but has not required this. Viral testing is being done in the ED and results are pending. Pt meets criteria for sepsis due to leukocytosis, hypoxia, Lactic Acid of 7.0 and after fluid resuscitation, down to 2.5, positive UA and noted low bicarb but AG calculated 11. Mg also low and pt has since received 2 GMS of MG in ED. Rhythm NSR, no arrhythmias or tachycardia. Pt is not sure of his medications and per chart, med rec is not yet completed. Will need to differentiate if pt is on coumadin or eliquis. INR 1.6 today. Review of Systems 2 Review of Systems: Patient denies current chest pain, shortness of breath at rest, headache, visual changes, abdominal pain, diarrhea, constipation or straining, lower leg edema or recent falls. Patient states he gets exceptional care from the [facility], his son and grandson. Patient reports his appetite is fair but he eats because he knows he has to. Patient does not normally follow his fluid intake and drinks about 5 bottles of water a day. [facility] Medical History HFrEF (heart failure with reduced ejection fraction) Hematuria Abdominal pain Sepsis Urinary tract infection associated with cystostomy catheter CAD (coronary artery disease) Acute exacerbation of CHF (congestive heart failure) Hyperlipidemia Alcohol abuse Diabetes mellitus Hypertension Family History Father Liver problem Mother Past heart attack Brother Cancer Sister Cancer Surgical History History of cardiac cath History of hernia repair Social History Household Members: Family and Children Housing: House Do you presently have visiting nurse or other home services: Yes ([facility] & Grandson helps with care.) Unable to assess alcohol history related to: Unknown Alcohol intake: former Patient Tobacco Use Status: Former Tobacco user Tobacco use type: Cigarette (quit 57 years ago) e-Cigarette/Vaping Use: Never Used Second Hand Smoke Exposure: No service: Yes Current occupational status: retired Current occupation: retired [employer] Current occupational exposures/hazards: No Cognitive needs: No Hearing needs: No Vision needs: Yes (reading glasses) Ebola Risk: Travel/Contact With Anyone From Affected Area/s: No Has Patient Experienced Ebola Symptoms: No Meds Allergies Allergy/AdvReac Type Severity Reaction Status Date / Time No Known Allergies Allergy Verified 07/10/24 08:46 [No Known Allergies*] Active Medications: Current Medications Magnesium Sulfate (Magnesium Sulfate/H2o) 2 gm in 50 mls @ 25 mls/hr IV ONCE ONE Stop: 07/10/24 12:08 Last Admin: 07/10/24 11:05 Dose: 25 mls/hr Home Medications ?Medication ?Instructions ?Recorded ?Confirmed ?Last Taken ?Type acetaminophen 500 mg tablet 1,000 mg PO BID PRN Pain 11/16/23 07/10/24 Unknown History furosemide 20 mg tablet 20 mg PO DAILY >90 SBP 07/10/24 07/10/24 07/09/24 History Physical Exam 2 Vital Signs and Narrative: Vital Signs: Last Vital Signs Temp 98.9 F 07/10/24 11:20 Pulse 76 07/10/24 11:20 Resp 16 07/10/24 11:20 BP 108/54 L 07/10/24 11:20 Pulse Ox 99 07/10/24 11:20 O2 Del Method Nasal Cannula 07/10/24 11:20 O2 Flow Rate 2 07/10/24 11:20 BMI result Body Mass Index 23.2 Alert and orientated X3, able to give good history, cognitively intact. Neuro: CN II-X11 intact, no deficits, visual acuity intact. EYES: PERRLA, EOM intact, some mild dry drainage on upper eyelids, conjunctive pink ENT: hearing intact, no issues with swallowing, uvula midline, lips dry, nares patent no epistaxis Cardiac: S1 S2 RRR, no murmur, no JVD, no edema in Lower ext Pulmonary: lungs diminished B, no adventitious sounds noted Abdominal: BS active in all 4 quadrants, no guarding, tenderness, rebounding. Suprapubic catheter in place, site with small amount of crusty drainage, skin inverted and exposed, no sweling, edema, or bloody drainage noted MSK: strength 4/5 upper and lower extremities : no CVA tenderness no bladder distension Extremities: no edema in lower extremities, PT and DP pulses palpable +2 Psych: mood stable, judgement and insight good Skin: intact, no open wounds found, atrophic changes on scalp Results Labs 07/10/24 09:02 07/10/24 13:36 Labs: Laboratory Results - last 24 hr 07/10/24 07/10/24 07/10/24 09:02 09:50 11:18 MCV 89.9 MCH 30.6 MCHC 34.0 RDW 13.7 Plt Count 318 MPV 9.3 L Immature Gran % (Auto) 0.6 H Neut % (Auto) 78.9 H Lymph % (Auto) 9.8 L [place] % (Auto) 7.5 Eos % (Auto) 2.8 Baso % (Auto) 0.4 Lymph # (Auto) 1.1 L [place] # (Auto) 0.8 Eos # (Auto) 0.3 Baso # (Auto) 0.0 Abs Immat Gran (auto) 0.07 H Absolute Neuts (auto) 8.8 H Absolute Nucleated RBC 0.000 Nucleated RBC % (auto) 0.0 PT 15.1 H INR 1.3 H Anion Gap 16 Estim Creat Clear Calc 36.1 Estimated GFR 46 Random Glucose 159 H Lactic Acid 7.0 H* Lactic Acid F/U @ 2Hr 2.5 H* Calcium 8.8 D Magnesium 1.4 L* Total Bilirubin 0.8 AST 14 ALT < 6 Alkaline Phosphatase 89 Total Protein 7.2 Albumin 3.4 L Urine Color Dark Yellow Urine Appearance Turbid Urine pH 5.5 Ur Specific [place] 1.020 Urine Protein 300 (3+) H Urine Glucose (UA) Negative Urine Ketones Trace Urine Blood Large (3+) H Urine Nitrite Positive H Ur Leukocyte Esterase Large (3+) H Urine RBC 6-10 H Urine WBC >50 H Ur Squamous Epith Cells 6-10 Urine Bacteria 4+ Hyaline Casts 3-5 Urine Yeast Present Ethyl Alcohol < 10 ECG Attestation: I personally reviewed and interpreted this ECG as follows: (Normal sinus rhythm Left axis deviation Non-specific intra-ventricular conduction block Cannot rule out Septal infarct (cited on or before 30-Apr-2024) Abnormal ECG When compared with ECG of 30-Apr-2024 11:06, Questionable change in initial forces of Septal leads T wave inversion more evident in Lat) Prior ECG tracings: available for review Imaging Radiologist's Impressions: Impressions Chest X-Ray 07/10/24 08:36 IMPRESSION: Calcified pleural plaques. Small right pleural effusion with adjacent subsegmental atelectasis versus scar. Electronically signed by: Jeffrey Ugalde MD 07/10/2024 08:58 AM EDT RP Assessment and Plan (1) Sepsis: Qualifiers: Acute renal failure type: unspecified Sepsis acute organ dysfunction status: with acute organ dysfunction Sepsis type: sepsis due to unspecified organism Severe sepsis acute organ dysfunction type: acute renal failure S evere sepsis shock status: without septic shock Qualified Code(s): A41.9 - Sepsis, unspecified organism; R65.20 - Severe sepsis without septic shock; N17.9 - Acute kidney failure, unspecified Status: Acute (2) UTI (urinary tract infection): Qualifiers: Encounter type: initial encounter Indwelling urinary catheter type: c ystostomy catheter Urinary tract infection type: catheter-associated UTI Q ualified Code(s): T83.510A - Infection and inflammatory reaction due to cystostomy catheter, initial encounter; N39.0 - Urinary tract infection, site not specified Status: Acute (3) Lactic acidosis: Status: Acute (4) Acute hypoxic respiratory failure: Status: Acute (5) LEFTY (acute kidney injury): Status: Acute (6) Hyponatremia: Status: Acute (7) Hypomagnesemia: Status: Acute (8) HFrEF (heart failure with reduced ejection fraction): Status: Acute (9) EtOH dependence: Qualifiers: Substance use status: uncomplicated Qualified Code(s): F10.20 - Alcohol dependence, uncomplicated Status: Acute (10) PAF (paroxysmal atrial fibrillation): Status: Chronic (11) Anemia: Qualifiers: Anemia type: unspecified type Qualified Code(s): D64.9 - Anemia, unspecified Status: Chronic (12) BPH (benign prostatic hyperplasia): Status: Chronic Plan 1. Sepsis Pt initially with LA 7.0, now 2.5 continues on controlled fluid resusitation noting HFrEF hx, repeating LA Ceftriaxone day #1 1GM daily ordered by ED provider, continues noting urine likely source, follow urine culture O2 2L, pt initially hypoxic, CXR with small chronic R pleural effusion (pt has O2 at home but does not use) VSS, pt can be admitted to telemetry medical floor pending Telemetry 2. UTI UA positive for large blood +3, > 50 WBCs, +4 Bacteria. Pt does have hx of UTI in the past. Suprapubic catheter is in chronically, changed 2 weeks prior, usually changed every 30 days but being changed more often Pt last saw urology 2 weeks prior, no new issues noted then Suprapubic site with minor crusted drainage, internal skin exposed, will add culture of SP site Urology consulted 3. Lactic acidosis LA 7.0 on admission, with fluids, now 2.5, repeating to identify resolve IVF continue controlled rate due to pt's CHF hx 4. Acute Hypoxic Respiratory Failure Pt presented with POX in the 80s, likely secondary to sepsis noting CXR and clinical presentation Pt responding well to 2L NC, no indication for nebs prn or aggressive diuresis noting sepsis Monitor continuous POX 5. LEFTY eGFR 46, CREAT CL 36 Urine output monitored noting SP catheter Will order urine NA, Creat, Osmo fdor review Prior pt had overall eGFr > 60 back in 2023 but had to stop the ARB due to low BP, noting HF hx Nephrology consult if indicated 6. Hyponatremia Na 130, repeating BMP, trend Urine studies ordered Noted URI Pt is on 0.9 NS 100 mls per hour currently 7. Hypomagnesemia MG 1.4 on admission, pt received 2 GMS in the ED Repeating MG, consider po daily MG Telemetry 8. HFrEF 15-20%/ Chronic LAD diseas not a candiate for stents, open heart Do not suspect exacerbation based on CXR and clinical presentation, no chest pain, no JVD BNP 136 Lasix and spironolactone on hold Will hold off on consulting cardiology, reviewed with hospitalist attending Pt cannot tolerate VI/ARB due to hx of low BP 9. ETOH use ETOH level WNL Pt states last beer was 5 weeks prior No issues with withdrawal LFTs WNL 10. PAF Continue Amiodorone, LFTs stable, will check TSH with reflex MED REC pending, pt does not know his medications Eliquis vs coumadin? await med rec completion ( [facility] manages pt's medications) MED REC completed, pt is on eliquis and this is ordered 11. Anemia H/H 02/17.4 stable will check iron studies, B12 levels Trend CBC Pt is being admitted to telemetry, son has been updated on plan for admission. DVT Prophylaxis Eliquis PPI ordered Total time managing care of this patient today: 50 minutes. Quality Stroke Does the patient have a stroke diagnosis?: No Reason for No Anti-thrombotic by Day Two: N/A - Med Ordered VTE Prior VTE?: No VTE Risk Level:: Medical - moderate - high VTE Device Contraindication: N/A - Device Ordered VTE Drug Contraindication: N/A - Med Ordered
[2024-07-10 12:05] LABS: D Dimer High Sensitivity 276 NG/ML
[2024-07-10] MEDS: 0.9 % Sodium Chloride 1,000 ML 100 ML IVCONT ×2 (12:43→22:27)
[2024-07-10] MEDS: Midodrine HCl 5 MG TABLET PO (12:43)
--- NOTE | 2024-07-10 12:57 | PC.NURSE ---
Pt remains A+OX3; BP improved with tx; maintenance IVF's infusing per orders; LS CTA at this time; no peripheral edema noted; pt's stoma site for his suprapubic cath appears irritated/red; pt reports it hurting since it was installed months ago; made aware
[2024-07-10 13:11] LABS: B Type Natriuretic Peptide 136 pg/mL (<100)
[2024-07-10 13:27] LABS: Reflex Lactate? 2 Y
[2024-07-10 13:29] LABS: Influenza A PCR NEGATIVE (Negative); Influenza B PCR NEGATIVE (Negative); Resp Syncy Virus RNA Qual PCR NEGATIVE (Negative); SARS COV2 PCR INHOUSE NEGATIVE (Negative)
[2024-07-10 14:11] LABS: Anion Gap 14 (12-20); Blood Urea Nitrogen 25 mg/dL (9-16); Calcium 8.6 mg/dL (8.4-10.2); Carbon Dioxide 21 mmol/L (22-29); Chloride 103 mmol/L (96-108); Creatinine Clr Calc Pharmacy 40.5; Estimated Glomerular Filt Rate 52; Glucose Random 155 mg/dL (60-115); Lactic Acid 1.6 mmol/L (0.5-2.0); Magnesium 2.1 mg/dL (1.6-2.6); Potassium 5.2 mmol/L (3.3-5.1); Sodium 133 mmol/L (135-145)
--- NOTE | 2024-07-10 14:39 | MHC.CLN ---
RE: CONSULT CURRENT DIET CARDIAC 1500ML FLUID RESTRICTION WITH 8OZ ENSURE CLEAR SUPPLEMENT TID RECOMMEND 2000DM CARDIAC DIET R/T DX DM CONTINUE FLUID RESTRICTION R/T LOW SERUM SODIUM RECOMMEND D/C ENSURE CLEAR TID -PRODUCT IS NOT DIABETIC FRIENDLY AND WILL EXCEED FLUID RESTRICTION PARAMETERS MONITOR PO INTAKE
--- NOTE | 2024-07-10 14:55 | PHA.MEDREC ---
Addendum entered by Wendy Jimenez [facility] 07/10/24 15:16: Reviewed by [facility] Original Note: Pharmacy Consult ? Medication Reconciliation Pharmacy has completed the medication reconciliation. Spoke with patient and he was not sure what he was taking for medications at this time and states he gets [facility] services and he is also [facility] patient and fills all his [facility] at the [facility] in [place]. I was able to find from past admissions here that the patient has a visiting nurse Natalie that he confirmed still worked with him, I called and left her a voicemail to call us to confirm the patients medications. I also called the patients son Carlyle to confirm his dads medications, I left a voice mail but the son called back and was going to direct us to call Natalei or the [facility] for a list. I received a list from the [facility] in [facility], I was able to use to confirm the med rec. The patient confirmed he is taking the Eliquis twice a day and use to take the Warfarin but it was too hard for the patient to go get tested once a week so he got switched to the Eliquis in the beginning of the year. The patient and son confirmed he was suppose to be taking a Vitamin C tablet but the patient and son both stated he never received that in the mail to start. He states he last took his medications last night.
[2024-07-10] MEDS: Apixaban 5 MG TABLET PO (20:40)
[2024-07-10] MEDS: Atorvastatin Calcium 40 MG TABLET PO (20:40)
[2024-07-11] VITALS (7 sets, daily range): BP systolic 95–126; BP diastolic 53–59; PULSE 78–91; RESP 16–18; TEMP 36.4–37; O2SAT 90–98; BMI 23.6
[2024-07-11] MEDS: Pantoprazole Sodium 40 MG/10 ML VIAL IVPUSH (05:36)
[2024-07-11 06:37] LABS: MANUAL DIFF FLAG NO
[2024-07-11 06:59] LABS: Basophils Percent Auto 0.4 % (0-2); Eosinophils Absolute Auto 0.2 X10*3/uL (0.0-0.4); Eosinophils Percent Auto 2.9 % (0-4); Hematocrit 23.8 % (42.0-52.0); Imm Gran Abs Auto 0.06 X10*3/uL (0.00-0.03); Imm Gran Pct Auto 0.8 % (0.0-0.4); Lymphocytes Absolute Auto 0.6 X10*3/uL (1.2-4.9); Lymphocytes Percent Auto 7.2 % (20-40); Mean Corpuscular HGB Conc 33.6 g/dl (31.0-36.0); Mean Corpuscular Hemoglobin 30.4 pg (27.0-33.0); Mean Corpuscular Volume 90.5 fL (80.0-98.0); Mean Platelet Volume 9.1 fL (9.4-12.4); Monocytes Absolute Auto 0.7 X10*3/uL (0.1-1.2); Monocytes Percent Auto 9.4 % (2-11); Neutrophils Absolute Auto 6.1 x10*3/uL (2.0-8.3); Neutrophils Percent Auto 79.3 % (45-73); Platelet Count 234 X10*3/uL (160-400); Red Blood Count 2.63 X10*6/uL (4.60-5.80); Red Cell Distribution Width 13.7 % (11.0-16.0); White Blood Count 7.7 X10*3/uL (4.8-10.8)
[2024-07-11 07:06] LABS: Iron 24 mcg/dL (45-160); Percent Iron Saturation 20 % (15-50); Total Iron Binding Capacity 120 mcg/dL (228-428); Unsaturated Iron Binding 96 ug/dL
[2024-07-11 08:42] LABS: Anion Gap 7 (12-20); Blood Urea Nitrogen 13 mg/dL (9-16); Calcium 5.7 mg/dL (8.4-10.2); Carbon Dioxide 15 mmol/L (22-29); Chloride 118 mmol/L (96-108); Estimated Glomerular Filt Rate > 60; Glucose Random 92 mg/dL (60-115); Magnesium 1.2 mg/dL (1.6-2.6); Potassium 3.2 mmol/L (3.3-5.1); Sodium 137 mmol/L (135-145)
[2024-07-11 09:01] LABS: Vitamin B12 < 148 pg/mL (200-900)
[2024-07-11] MEDS: 0.9 % Sodium Chloride 1,000 ML 100 ML IVCONT (09:05)
[2024-07-11] MEDS: Apixaban 5 MG TABLET PO ×2 (09:06→20:36)
[2024-07-11] MEDS: cefTRIAXone sodium 1 GM VIAL IVPUSH (09:06)
[2024-07-11] MEDS: Amiodarone HCL 200 MG TABLET PO (09:06)
[2024-07-11] MEDS: Ferrous Sulfate 324 MG TABLET.DR PO (09:06)
[2024-07-11] MEDS: Finasteride 5 MG TABLET PO (09:06)
[2024-07-11] MEDS: Tamsulosin HCL 0.4 MG CAPSULE PO (09:06)
--- NOTE | 2024-07-11 13:54 | P.PNIM_ITS ---
Subjective Subjective Date of Service: 07/11/24 Interval History: seen and evaluated this morning feels little better weak and has no energy no other events Review of Systems Review of Systems: Yes all other systems are reviewed and are negative Physical Exam 2 Vital Signs: Vital Signs: Last Vital Signs Temp 97.8 F 07/11/24 11:55 Pulse 80 07/11/24 11:55 Resp 17 07/11/24 11:55 BP 95/53 L 07/11/24 11:55 Pulse Ox 97 07/11/24 11:55 O2 Del Method Room Air 07/11/24 11:55 O2 Flow Rate 2 07/11/24 03:07 BMI result Body Mass Index 23.6 Const: Other: Constitutional : interactive, frail looking, not in distress Cardiovascular : no JVP, no lower extremity edema Respiratory : bilateral chest movement, not in resp distress Gastrointestinal: soft, lax, Non tender Skin : Warm, Dry, Suprapubic cath in place Neurological : Alert & oriented , No focal deficit Objective Data Active Medications Acetaminophen (Acetaminophen 325 Mg Tablet) 650 mg PO Q6H PRN PRN Reason: Pain, Mild 1-3,fever,headache Amiodarone HCl (Amiodarone Hcl 200 Mg Tablet) 200 mg PO DAILY [facility] Last Admin: 07/11/24 09:06 Dose: 200 mg Documented By: LUAN Apixaban (Apixaban 5 Mg Tablet) 5 mg PO BID [facility] Last Admin: 07/11/24 09:06 Dose: 5 mg Documented By: LUAN Atorvastatin Calcium (Atorvastatin Calcium 40 Mg Tablet) 40 mg PO BEDTIME [facility] Last Admin: 07/10/24 20:40 Dose: 40 mg Documented By: CHARLEEN Calcium Carbonate (Calcium Carbonate 750 Mg Tab.Chew) 750 mg PO Q4H PRN PRN Reason: Heartburn Ceftriaxone Sodium (Ceftriaxone Sodium 1 Gm Vial) 1 gm IVPUSH Q24H [facility] Last Admin: 07/11/24 09:06 Dose: 1 gm Documented By: LUAN Ferrous Sulfate (Ferrous Sulfate 324 Mg Tablet.) 324 mg PO DAILY [facility] Last Admin: 07/11/24 09:06 Dose: 324 mg Documented By: LUAN Finasteride (Finasteride 5 Mg Tablet) 5 mg PO DAILY [facility] Last Admin: 07/11/24 09:06 Dose: 5 mg Documented By: LUAN Sodium Chloride (Ns) 1,000 mls @ 100 mls/hr IVCONT .Q10H [facility] Last Admin: 07/11/24 09:05 Dose: 100 mls/hr Documented By: LUAN Magnesium Hydroxide (Milk Of Magnesia 30 Ml Oral.Susp) 30 ml PO DAILY PRN PRN Reason: Constipation Melatonin (Melatonin 3 Mg Tablet) 6 mg PO BEDTIME PRN PRN Reason: Insomnia Pantoprazole Sodium (Pantoprazole Sodium 40 Mg/10 Ml Vial) 40 mg IVPUSH DAILY@0630 [facility] Last Admin: 07/11/24 05:36 Dose: 40 mg Documented By: BENY-JOZEAle Sodium Chloride (0.9 % Sodium Chloride Flush 3 Ml Syringe) 3 ml IVFLUSH QSHIFT [facility] Last Admin: 07/11/24 09:00 Dose: Not Given Documented By: LUAN Non-Admin Reason: IV Running Tamsulosin HCl (Tamsulosin Hcl 0.4 Mg Capsule) 0.4 mg PO DAILY [facility] Last Admin: 07/11/24 09:06 Dose: 0.4 mg Documented By: LUAN Labs 07/11/24 06:19 07/11/24 07:57 Labs: Laboratory Results - last 24 hr 07/10/24 07/11/24 07/11/24 13:36 06:19 07:57 MCV 90.5 MCH 30.4 MCHC 33.6 RDW 13.7 Plt Count 234 D MPV 9.1 L Immature Gran % (Auto) 0.8 H Neut % (Auto) 79.3 H Lymph % (Auto) 7.2 L [place] % (Auto) 9.4 Eos % (Auto) 2.9 Baso % (Auto) 0.4 Lymph # (Auto) 0.6 L [place] # (Auto) 0.7 Eos # (Auto) 0.2 Baso # (Auto) 0.0 Abs Immat Gran (auto) 0.06 H Absolute Neuts (auto) 6.1 Absolute Nucleated RBC 0.000 Nucleated RBC % (auto) 0.0 Anion Gap 14 7 L Estim Creat Clear Calc 40.5 85.0 Estimated GFR 52 > 60 Random Glucose 155 H 92 Lactic Acid 1.6 Calcium 8.6 5.7 L* D Magnesium 2.1 1.2 L* Iron 24 L TIBC 120 L % Saturation 20 Unsat Iron Binding 96 Vitamin B12 < 148 L Microbiology Microbiology Results: Microbiology 07/10/24 09:02 Blood Culture - Preliminary Blood - Venous No growth after 24 hours. 07/10/24 09:02 Blood Culture - Preliminary Blood - Venous No growth after 24 hours. Assessment and Plan (1) LEFTY (acute kidney injury): Status: Acute (2) Metabolic acidosis: Status: Acute (3) Hypomagnesemia: Status: Acute (4) Hyponatremia: Status: Acute (5) Lactic acidosis: Status: Acute (6) Hypoxia: Status: Acute (7) Sepsis: Status: Acute Plan an 89-year-old male with past medical history hypertension, hyperlipidemia, cataract repair, ETOH use (last use 5 weeks ago), anemia, heart failure with reduced EF of 15-20%, coronary artery disease involving current occlusion of the LAD (patient is not a candidate for stents or open heart surgery), BPH with chronic suprapubic catheter site, atrial fibrillation on amiodarone and anticoagulation, ischemic cardiomyopathy, txl-izgedsh-oogwdxies diabetes, osteoarthritis and history of dysphagia with recent EGD back in April of 2024 status post food bolus issue, and intermittent diarrhea presents to the emergency room via 911 due to inability to get out of bed this morning. Sepsis 2/2 UTI complicated with acute lactic acidosis LA corrected Pending cultures Continue Ceftriaxone Suprapubic catheter changed 2 weeks prior Suprapubic site with minor crusted drainage, internal skin exposed Urology consulted Acute Hypoxic Respiratory Failure likely secondary to sepsis CXR not showing any inflitrates Saturating high 90s on RA today has O2 at home but does not use LEFTY Back to baseline with IVF Acute Hyponatremia corrected back to baseline Hypokalemia, acute replacement given , follow BMP Acute Hypomagnesemia MG 1.2 Give IV and PO replacement HFrEF 15-20%/ Chronic LAD diseas not a candiate for stents, open heart Lasix and spironolactone on hold Pt cannot tolerate VI/ARB due to hx of low BP monitor fluid status Hx of ETOH use states last beer was 5 weeks prior, No issues with withdrawal PAF Continue Amiodorone, Eliquis acute on chronic Anemia Hb dropped to 8 this morning, likely dilutional Has low iron studies, B12 levels >> to give replacement Trend CBC DVT Prophylaxis Eliquis PPI ordered The patient will need overnight hospital stay pending improvement in Electrolytes, final cultures on IV Antibiotics. Quality Stroke Does the patient have a stroke diagnosis?: No Reason for No Anti-thrombotic by Day Two: N/A - Med Ordered VTE Prior VTE?: No VTE Risk Level:: Medical - moderate - high VTE Device Contraindication: N/A - Device Ordered VTE Drug Contraindication: N/A - Med Ordered
[2024-07-11] MEDS: Potassium Chloride Packet 20 MEQ PACKET 40 MEQ PO ×2 (15:01→17:20)
[2024-07-11] MEDS: Magnesium Sulfate/H2O 2 GM/50 ML PIGGYBACK IV (15:01)
[2024-07-11] MEDS: Calcium Gluconate/NaCl,Iso-Osm 2 GM/100 ML PLAST..BAG IV (15:12)
--- NOTE | 2024-07-11 18:36 | PC.NURSE ---
Patient alert and oriented, forgetful but easily redirectable. Weaned off O2 sats above 92%. No complaints of pain, able to tolerated meals, able to take pills with water. C/o weakness and difficulty walking, awaiting PT evaluation.
[2024-07-11] MEDS: Atorvastatin Calcium 40 MG TABLET PO (20:36)
[2024-07-12 03:25] VITALS: BP 109/64; PULSE 85; RESP 14; TEMP 36.5; O2SAT 92
[2024-07-12] MEDS: Pantoprazole Sodium 40 MG/10 ML VIAL IVPUSH (06:36)
[2024-07-12 07:45] VITALS: BP 110/54; PULSE 80; RESP 18; TEMP 36.7; O2SAT 96
[2024-07-12 08:28] LABS: MANUAL DIFF FLAG NO
[2024-07-12 08:48] LABS: Basophils Percent Auto 0.4 % (0-2); Eosinophils Absolute Auto 0.3 X10*3/uL (0.0-0.4); Eosinophils Percent Auto 2.7 % (0-4); Hemoglobin 9.5 g/dl (14.0-18.0); Imm Gran Abs Auto 0.06 X10*3/uL (0.00-0.03); Imm Gran Pct Auto 0.6 % (0.0-0.4); Lymphocytes Absolute Auto 0.8 X10*3/uL (1.2-4.9); Lymphocytes Percent Auto 8.2 % (20-40); Mean Corpuscular HGB Conc 32.8 g/dl (31.0-36.0); Mean Corpuscular Hemoglobin 30.1 pg (27.0-33.0); Mean Corpuscular Volume 91.8 fL (80.0-98.0); Mean Platelet Volume 9.3 fL (9.4-12.4); Monocytes Absolute Auto 0.9 X10*3/uL (0.1-1.2); Monocytes Percent Auto 8.4 % (2-11); Neutrophils Absolute Auto 8.1 x10*3/uL (2.0-8.3); Neutrophils Percent Auto 79.7 % (45-73); Platelet Count 294 X10*3/uL (160-400); Red Blood Count 3.16 X10*6/uL (4.60-5.80); Red Cell Distribution Width 13.6 % (11.0-16.0); White Blood Count 10.2 X10*3/uL (4.8-10.8)
[2024-07-12] MEDS: 0.9 % Sodium Chloride Flush 3 ML SYRINGE IVFLUSH ×2 (08:51→15:34)
[2024-07-12] MEDS: Apixaban 5 MG TABLET PO ×2 (08:51→21:18)
[2024-07-12] MEDS: Amiodarone HCL 200 MG TABLET PO (08:51)
[2024-07-12] MEDS: cefTRIAXone sodium 1 GM VIAL IVPUSH (08:52)
[2024-07-12] MEDS: Ferrous Sulfate 324 MG TABLET.DR PO (08:52)
[2024-07-12] MEDS: Cyanocobalamin (Vitamin B-12) 1,000 MCG TABLET 1000 MCG PO (08:52)
[2024-07-12] MEDS: Tamsulosin HCL 0.4 MG CAPSULE PO (08:52)
[2024-07-12] MEDS: Finasteride 5 MG TABLET PO (08:52)
[2024-07-12 09:08] LABS: Anion Gap 14 (12-20); Blood Urea Nitrogen 17 mg/dL (9-16); Calcium 8.5 mg/dL (8.4-10.2); Carbon Dioxide 19 mmol/L (22-29); Chloride 103 mmol/L (96-108); Creatinine Clr Calc Pharmacy 54.9; Estimated Glomerular Filt Rate > 60; Glucose Random 156 mg/dL (60-115); Magnesium 1.8 mg/dL (1.6-2.6); Potassium 4.9 mmol/L (3.3-5.1); Sodium 131 mmol/L (135-145)
[2024-07-12 09:24] VITALS: BP 169/82; PULSE 81; RESP 18; TEMP 36.7; O2SAT 91
--- NOTE | 2024-07-12 10:20 | MHC.CM.PN ---
PT REPORTS HE LIVES WITH HIS SON AND GRANDSON AND IS INDEPENDENT WITH SELF CARE PT IS ACTIVE WITH [facility] AND HAS PRIVATE PAY [employer] SERVICES HE USES A WALKER FOR DME PT SAYS HE IS NOW SEEING A PA AT [facility] SINCE DR GILMORE RETIRED COPY OF HCP REQUESTED IMM DELIVERED DCP: HOME RESUME [facility] AND [employer] FAMILY TO TRANSPORT * PT AWAITING A PT EVAL, HOWEVER STATES HE WANTS TO RETURN HOME AT [place]
--- NOTE | 2024-07-12 11:49 | P.PNIM_ITS ---
Subjective Subjective Date of Service: 07/12/24 Interval History: seen and evaluated this morning feels little better weak and has no energy no other events Review of Systems Review of Systems: Yes all other systems are reviewed and are negative Physical Exam 2 Vital Signs: Vital Signs: Last Vital Signs Temp 98.0 F 07/12/24 09:24 Pulse 81 07/12/24 09:24 Resp 18 07/12/24 09:24 BP 169/82 H 07/12/24 09:24 Pulse Ox 91 L 07/12/24 09:24 O2 Del Method Nasal Cannula 07/12/24 09:24 O2 Flow Rate 2 07/12/24 09:24 BMI result Body Mass Index 23.6 Const: Other: Constitutional : interactive, frail looking, not in distress Cardiovascular : no JVP, no lower extremity edema Respiratory : bilateral chest movement, not in resp distress Gastrointestinal: soft, lax, Non tender Skin : Warm, Dry, Suprapubic cath in place Neurological : Alert & oriented , No focal deficit Objective Data Active Medications Acetaminophen (Acetaminophen 325 Mg Tablet) 650 mg PO Q6H PRN PRN Reason: Pain, Mild 1-3,fever,headache Amiodarone HCl (Amiodarone Hcl 200 Mg Tablet) 200 mg PO DAILY [facility] Last Admin: 07/12/24 08:51 Dose: 200 mg Documented By: NARCISAMORP Apixaban (Apixaban 5 Mg Tablet) 5 mg PO BID [facility] Last Admin: 07/12/24 08:51 Dose: 5 mg Documented By: NARCISAMORP Atorvastatin Calcium (Atorvastatin Calcium 40 Mg Tablet) 40 mg PO BEDTIME [facility] Last Admin: 07/11/24 20:36 Dose: 40 mg Documented By: BENY-MODESTOZEB Calcium Carbonate (Calcium Carbonate 750 Mg Tab.Chew) 750 mg PO Q4H PRN PRN Reason: Heartburn Ceftriaxone Sodium (Ceftriaxone Sodium 1 Gm Vial) 1 gm IVPUSH Q24H [facility] Last Admin: 07/12/24 08:52 Dose: 1 gm Documented By: NARCISAMORP Cyanocobalamin (Cyanocobalamin (Vitamin B-12) 1,000 Mcg Tablet) 1,000 mcg PO DAILY [facility] Last Admin: 07/12/24 08:52 Dose: 1,000 mcg Documented By: NARCISAMORP Ferrous Sulfate (Ferrous Sulfate 324 Mg Tablet.) 324 mg PO DAILY [facility] Last Admin: 07/12/24 08:52 Dose: 324 mg Documented By: PODMORP Finasteride (Finasteride 5 Mg Tablet) 5 mg PO DAILY [facility] Last Admin: 07/12/24 08:52 Dose: 5 mg Documented By: PODMORP Magnesium Hydroxide (Milk Of Magnesia 30 Ml Oral.Susp) 30 ml PO DAILY PRN PRN Reason: Constipation Melatonin (Melatonin 3 Mg Tablet) 6 mg PO BEDTIME PRN PRN Reason: Insomnia Oxycodone HCl (Oxycodone Hcl Immed Release 5 Mg Tablet) 5 mg PO Q6H PRN PRN Reason: Pain, Severe (Pain Scale 7-10) Pantoprazole Sodium (Pantoprazole Sodium 40 Mg/10 Ml Vial) 40 mg IVPUSH DAILY@0630 [facility] Last Admin: 07/12/24 06:36 Dose: 40 mg Documented By: N-JOZEB Sodium Chloride (0.9 % Sodium Chloride Flush 3 Ml Syringe) 3 ml IVFLUSH QSHIFT [facility] Last Admin: 07/12/24 08:51 Dose: 3 ml Documented By: PODMORP Tamsulosin HCl (Tamsulosin Hcl 0.4 Mg Capsule) 0.4 mg PO DAILY [facility] Last Admin: 07/12/24 08:52 Dose: 0.4 mg Documented By: NARCISAMOJAIDEN Labs 07/12/24 08:18 07/12/24 08:18 Labs: Laboratory Results - last 24 hr 07/12/24 08:18 MCV 91.8 MCH 30.1 MCHC 32.8 RDW 13.6 Plt Count 294 D MPV 9.3 L Immature Gran % (Auto) 0.6 H Neut % (Auto) 79.7 H Lymph % (Auto) 8.2 L [place] % (Auto) 8.4 Eos % (Auto) 2.7 Baso % (Auto) 0.4 Lymph # (Auto) 0.8 L [place] # (Auto) 0.9 Eos # (Auto) 0.3 Baso # (Auto) 0.0 Abs Immat Gran (auto) 0.06 H Absolute Neuts (auto) 8.1 Absolute Nucleated RBC 0.000 Nucleated RBC % (auto) 0.0 Anion Gap 14 Estim Creat Clear Calc 54.9 Estimated GFR > 60 Random Glucose 156 H Calcium 8.5 D Magnesium 1.8 Microbiology Microbiology Results: Microbiology 07/10/24 09:02 Blood Culture - Preliminary Blood - Venous No growth after 48 hours. 07/10/24 09:02 Blood Culture - Preliminary Blood - Venous No growth after 48 hours. 07/10/24 Unknown Urine Culture - Preliminary Urine Catheterized - Kellogg Catheter Gram negative azra Assessment and Plan (1) B12 deficiency: Status: Acute (2) BPH (benign prostatic hyperplasia): Status: Chronic (3) LEFTY (acute kidney injury): Status: Acute (4) Metabolic acidosis: Status: Acute (5) Hypomagnesemia: Status: Acute (6) UTI (urinary tract infection): Status: Acute (7) Sepsis: Status: Acute Plan an 89-year-old male with past medical history hypertension, hyperlipidemia, cataract repair, ETOH use (last use 5 weeks ago), anemia, heart failure with reduced EF of 15-20%, coronary artery disease involving current occlusion of the LAD (patient is not a candidate for stents or open heart surgery), BPH with chronic suprapubic catheter site, atrial fibrillation on amiodarone and anticoagulation, ischemic cardiomyopathy, [id number] diabetes, osteoarthritis and history of dysphagia with recent EGD back in April of 2024 status post food bolus issue, and intermittent diarrhea presents to the emergency room via 911 due to inability to get out of bed this morning. Sepsis 2/2 UTI complicated with acute lactic acidosis LA corrected GNR in urine Cx Continue Ceftriaxone Suprapubic catheter changed 2 weeks prior Suprapubic site with minor crusted drainage, internal skin exposed Urology consulted Acute Hypoxic Respiratory Failure likely secondary to sepsis CXR not showing any inflitrates 91% on 2L, wean down as tolerated has O2 at home but does not use LEFTY with metabolic acidosis Back to baseline with IVF Bicarb improving Acute Hyponatremia fluctuating, monitor while on IVF Hypokalemia, acute replacement given , resolved Acute Hypomagnesemia Given IV and PO replacement resolved HFrEF 15-20%/ Chronic LAD diseas not a candiate for stents, open heart Lasix and spironolactone on hold Pt cannot tolerate VI/ARB due to hx of low BP monitor fluid status Hx of ETOH use states last beer was 5 weeks prior, No issues with withdrawal PAF Continue Amiodorone, Eliquis acute on chronic Anemia Hb dropped to 8 this morning, likely dilutional Has low iron studies, B12 levels >> to give replacement Trend CBC DVT Prophylaxis Eliquis PPI ordered The patient will need overnight hospital stay pending improvement in Electrolytes, final cultures on IV Antibiotics. Quality Stroke Does the patient have a stroke diagnosis?: No Reason for No Anti-thrombotic by Day Two: N/A - Med Ordered VTE Prior VTE?: No VTE Risk Level:: Medical - moderate - high VTE Device Contraindication: N/A - Device Ordered VTE Drug Contraindication: N/A - Med Ordered
[2024-07-12 11:52] VITALS: BP 100/55; PULSE 69; RESP 17; TEMP 36.7; O2SAT 95
[2024-07-12] MEDS: Cyanocobalamin (Vitamin B-12) 1,000 MCG/ML VIAL 1000 MCG IM (12:36)
[2024-07-12 16:00] VITALS: BP 124/58; PULSE 84; RESP 17; TEMP 36.5; O2SAT 94
[2024-07-12] MEDS: Acetaminophen 325 MG TABLET 650 MG PO (16:26)
[2024-07-12 20:00] VITALS: BP 113/57; PULSE 82; RESP 17; TEMP 36.8; O2SAT 96
[2024-07-12] MEDS: Atorvastatin Calcium 40 MG TABLET PO (21:19)
[2024-07-13] VITALS: BP 117/61; PULSE 81; RESP 18; TEMP 36.5; O2SAT 94
[2024-07-13] MEDS: Acetaminophen 325 MG TABLET 650 MG PO ×3 (00:06→21:02)
[2024-07-13] MEDS: 0.9 % Sodium Chloride Flush 3 ML SYRINGE IVFLUSH ×4 (00:10→23:50)
[2024-07-13 04:00] VITALS: BP 97/59; PULSE 101; RESP 16; TEMP 37; O2SAT 95
[2024-07-13] MEDS: Pantoprazole Sodium 40 MG/10 ML VIAL IVPUSH (06:11)
[2024-07-13 06:56] LABS: MANUAL DIFF FLAG NO
[2024-07-13 07:09] LABS: Basophils Absolute Auto 0.1 X10*3/uL (0.0-0.2); Basophils Percent Auto 0.6 % (0-2); Eosinophils Absolute Auto 0.3 X10*3/uL (0.0-0.4); Eosinophils Percent Auto 3.1 % (0-4); Hematocrit 26.9 % (42.0-52.0); Hemoglobin 9.2 g/dl (14.0-18.0); Imm Gran Abs Auto 0.07 X10*3/uL (0.00-0.03); Imm Gran Pct Auto 0.8 % (0.0-0.4); Lymphocytes Absolute Auto 0.8 X10*3/uL (1.2-4.9); Lymphocytes Percent Auto 9.6 % (20-40); Mean Corpuscular HGB Conc 34.2 g/dl (31.0-36.0); Mean Corpuscular Hemoglobin 30.7 pg (27.0-33.0); Mean Corpuscular Volume 89.7 fL (80.0-98.0); Mean Platelet Volume 9.6 fL (9.4-12.4); Monocytes Absolute Auto 0.8 X10*3/uL (0.1-1.2); Monocytes Percent Auto 9.6 % (2-11); Neutrophils Absolute Auto 6.7 x10*3/uL (2.0-8.3); Neutrophils Percent Auto 76.3 % (45-73); Platelet Count 295 X10*3/uL (160-400); Red Cell Distribution Width 13.8 % (11.0-16.0); White Blood Count 8.7 X10*3/uL (4.8-10.8)
[2024-07-13 07:17] LABS: Anion Gap 12 (12-20); Blood Urea Nitrogen 20 mg/dL (9-16); Calcium 8.6 mg/dL (8.4-10.2); Carbon Dioxide 21 mmol/L (22-29); Chloride 104 mmol/L (96-108); Creatinine Clr Calc Pharmacy 48.8; Estimated Glomerular Filt Rate > 60; Glucose Random 157 mg/dL (60-115); Potassium 4.6 mmol/L (3.3-5.1); Sodium 132 mmol/L (135-145)
[2024-07-13 07:24] VITALS: BP 118/62; PULSE 80; RESP 19; TEMP 36.2; O2SAT 99
[2024-07-13] MEDS: cefTRIAXone sodium 1 GM VIAL IVPUSH (09:00)
[2024-07-13] MEDS: Cyanocobalamin (Vitamin B-12) 1,000 MCG TABLET 1000 MCG PO (09:01)
[2024-07-13] MEDS: Apixaban 5 MG TABLET PO ×2 (09:01→21:00)
[2024-07-13] MEDS: Finasteride 5 MG TABLET PO (09:01)
[2024-07-13] MEDS: Ferrous Sulfate 324 MG TABLET.DR PO (09:01)
[2024-07-13] MEDS: Tamsulosin HCL 0.4 MG CAPSULE PO (09:01)
[2024-07-13] MEDS: Amiodarone HCL 200 MG TABLET PO (09:01)
[2024-07-13 11:10] VITALS: BP 103/56; PULSE 88; RESP 17; TEMP 36.6; O2SAT 100
--- NOTE | 2024-07-13 13:08 | MHC.CM.PN ---
Per rounds, pt. may be ready to DC today, PT rec. STR, CM met with pt. he is in agreement with going, first choice is [facility]. He did not want [place] d/t distance. Referrals out.
--- NOTE | 2024-07-13 13:16 | HO.PM.IMPN ---
Subjective Subjective Date of Service: 07/13/24 Interval History: seen and evaluated this morning feels little better weakness improving no other events Review of Systems Review of Systems: Yes all other systems are reviewed and are negative Physical Exam Vital Signs: Vital Signs: Last Vital Signs Temp 97.8 F 07/13/24 11:10 Pulse 88 07/13/24 11:10 Resp 17 07/13/24 11:10 BP 103/56 L 07/13/24 11:10 Pulse Ox 100 07/13/24 11:10 O2 Del Method Room Air 07/13/24 11:10 O2 Flow Rate 2 07/12/24 09:24 BMI result Body Mass Index 23.6 Const: Other: Constitutional : interactive, frail looking, not in distress Cardiovascular : no JVP, no lower extremity edema Respiratory : bilateral chest movement, not in resp distress Gastrointestinal: soft, lax, Non tender Skin : Warm, Dry, Suprapubic cath in place Neurological : Alert & oriented , No focal deficit Objective Data Active Medications Acetaminophen (Acetaminophen 325 Mg Tablet) 650 mg PO Q6H PRN PRN Reason: Pain, Mild 1-3,fever,headache Last Admin: 07/13/24 12:41 Dose: 650 mg Documented By: TIMOTHY Amiodarone HCl (Amiodarone Hcl 200 Mg Tablet) 200 mg PO DAILY [facility] Last Admin: 07/13/24 09:01 Dose: 200 mg Documented By: TIMOTHY Apixaban (Apixaban 5 Mg Tablet) 5 mg PO BID [facility] Last Admin: 07/13/24 09:01 Dose: 5 mg Documented By: TIMOTHY Atorvastatin Calcium (Atorvastatin Calcium 40 Mg Tablet) 40 mg PO BEDTIME [facility] Last Admin: 07/12/24 21:19 Dose: 40 mg Documented By: STAN Calcium Carbonate (Calcium Carbonate 750 Mg Tab.Chew) 750 mg PO Q4H PRN PRN Reason: Heartburn Ceftriaxone Sodium (Ceftriaxone Sodium 1 Gm Vial) 1 gm IVPUSH Q24H [facility] Last Admin: 07/13/24 09:00 Dose: 1 gm Documented By: TIMOTHY Cyanocobalamin (Cyanocobalamin (Vitamin B-12) 1,000 Mcg Tablet) 1,000 mcg PO DAILY [facility] Last Admin: 07/13/24 09:01 Dose: 1,000 mcg Documented By: TIMOTHY Ferrous Sulfate (Ferrous Sulfate 324 Mg Tablet.Dr) 324 mg PO DAILY [facility] Last Admin: 07/13/24 09:01 Dose: 324 mg Documented By: TIMOTHY Finasteride (Finasteride 5 Mg Tablet) 5 mg PO DAILY [facility] Last Admin: 07/13/24 09:01 Dose: 5 mg Documented By: TIMOTHY Magnesium Hydroxide (Milk Of Magnesia 30 Ml Oral.Susp) 30 ml PO DAILY PRN PRN Reason: Constipation Melatonin (Melatonin 3 Mg Tablet) 6 mg PO BEDTIME PRN PRN Reason: Insomnia Oxycodone HCl (Oxycodone Hcl Immed Release 5 Mg Tablet) 5 mg PO Q6H PRN PRN Reason: Pain, Severe (Pain Scale 7-10) Pantoprazole Sodium (Pantoprazole Sodium 40 Mg/10 Ml Vial) 40 mg IVPUSH DAILY@0630 [facility] Last Admin: 07/13/24 06:11 Dose: 40 mg Documented By: STAN Sodium Chloride (0.9 % Sodium Chloride Flush 3 Ml Syringe) 3 ml IVFLUSH QSHIFT [facility] Last Admin: 07/13/24 08:59 Dose: 3 ml Documented By: TIMOTHY Tamsulosin HCl (Tamsulosin Hcl 0.4 Mg Capsule) 0.4 mg PO DAILY [facility] Last Admin: 07/13/24 09:01 Dose: 0.4 mg Documented By: TIMOTHY Labs 07/13/24 06:20 07/13/24 06:20 Labs: Laboratory Results - last 24 hr 07/13/24 06:20 MCV 89.7 MCH 30.7 MCHC 34.2 RDW 13.8 Plt Count 295 MPV 9.6 Immature Gran % (Auto) 0.8 H Neut % (Auto) 76.3 H Lymph % (Auto) 9.[address] [place] % (Auto) 9.6 Eos % (Auto) 3.1 Baso % (Auto) 0.6 Lymph # (Auto) 0.[address] [facility] [facility] # (Auto) 0.8 Eos # (Auto) 0.3 Baso # (Auto) 0.1 Abs Immat Gran (auto) 0.07 H Absolute Neuts (auto) 6.7 Absolute Nucleated RBC 0.000 Nucleated RBC % (auto) 0.0 Anion Gap 12 Estim Creat Clear Calc 48.8 Estimated GFR > 60 Random Glucose 157 H Calcium 8.6 Microbiology Microbiology Results: Microbiology 07/10/24 Unknown Urine Culture - Preliminary Urine Catheterized - Kellogg Catheter Escherichia coli Enterococcus/Streptococcus sp 07/10/24 09:02 Blood Culture - Preliminary Blood - Venous No growth after 48 hours. 07/10/24 09:02 Blood Culture - Preliminary Blood - Venous No growth after 48 hours. Assessment and Plan (1) LEFTY (acute kidney injury): Status: Acute (2) Metabolic acidosis: Status: Acute (3) Hypomagnesemia: Status: Acute (4) EtOH dependence: Status: Acute (5) UTI (urinary tract infection): Status: Acute Plan an 89-year-old male with past medical history hypertension, hyperlipidemia, cataract repair, ETOH use (last use 5 weeks ago), anemia, heart failure with reduced EF of 15-20%, coronary artery disease involving current occlusion of the LAD (patient is not a candidate for stents or open heart surgery), BPH with chronic suprapubic catheter site, atrial fibrillation on amiodarone and anticoagulation, ischemic cardiomyopathy, alx-[id number]-[id number] diabetes, osteoarthritis and history of dysphagia with recent EGD back in April of 2024 status post food bolus issue, and intermittent diarrhea presents to the emergency room via 911 due to inability to get out of bed this morning. Sepsis 2/2 UTI complicated with acute lactic acidosis LA corrected urine Cx growing E.Coli and Strep\Entero Continue Ceftriaxone Suprapubic catheter changed 2 weeks prior Suprapubic site with minor crusted drainage, internal skin exposed Urology report a reactive tissue at SPC. to use Silver nitrate only Acute Hypoxic Respiratory Failure likely secondary to sepsis CXR not showing any inflitrates weaned down as tolerated to room air has O2 at home but does not use Physical deconditioning PT rec STR LEFTY with metabolic acidosis Back to baseline with IVF Bicarb improving Acute Hyponatremia fluctuating, monitor while on IVF Hypokalemia, acute replacement given , resolved Acute Hypomagnesemia Given IV and PO replacement resolved HFrEF 15-20%/ Chronic LAD diseas not a candiate for stents, open heart restart Lasix and spironolactone Pt cannot tolerate VI/ARB due to hx of low BP monitor fluid status Hx of ETOH use states last beer was 5 weeks prior, No issues with withdrawal PAF Continue Amiodorone, Eliquis acute on chronic Anemia Hb dropped to 8 this morning, likely dilutional Has low iron studies, B12 levels >> to give replacement Trend CBC DVT Prophylaxis Eliquis PPI ordered The patient will need overnight hospital stay pending improvement in Electrolytes, final cultures on IV Antibiotics. Quality Stroke Does the patient have a stroke diagnosis?: No Reason for No Anti-thrombotic by Day Two: N/A - Med Ordered VTE Prior VTE?: No VTE Risk Level:: Medical - moderate - high VTE Device Contraindication: N/A - Device Ordered VTE Drug Contraindication: N/A - Med Ordered
[2024-07-13 15:20] VITALS: BP 117/59; PULSE 82; RESP 17; TEMP 36.9; O2SAT 96
[2024-07-13 19:51] VITALS: BP 109/58; PULSE 84; TEMP 36.6; O2SAT 94
[2024-07-13] MEDS: Atorvastatin Calcium 40 MG TABLET PO (21:00)
[2024-07-14] VITALS: BP 95/54; PULSE 86; RESP 19; O2SAT 95
[2024-07-14 04:00] VITALS: BP 137/83; PULSE 86; RESP 18; TEMP 36.9; O2SAT 96
[2024-07-14] MEDS: Pantoprazole Sodium 40 MG/10 ML VIAL IVPUSH (05:38)
[2024-07-14 07:04] LABS: Anion Gap 14 (12-20); Blood Urea Nitrogen 26 mg/dL (9-16); Calcium 8.7 mg/dL (8.4-10.2); Carbon Dioxide 21 mmol/L (22-29); Chloride 104 mmol/L (96-108); Creatinine Clr Calc Pharmacy 41.8; Estimated Glomerular Filt Rate 54; Glucose Random 160 mg/dL (60-115); Potassium 4.6 mmol/L (3.3-5.1); Sodium 134 mmol/L (135-145)
[2024-07-14 07:27] VITALS: BP 96/52; PULSE 81; RESP 18; TEMP 36.8; O2SAT 95
[2024-07-14] MEDS: 0.9 % Sodium Chloride Flush 3 ML SYRINGE IVFLUSH (09:54)
[2024-07-14] MEDS: Apixaban 5 MG TABLET PO (09:59)
[2024-07-14] MEDS: Amiodarone HCL 200 MG TABLET PO (09:59)
[2024-07-14] MEDS: Cyanocobalamin (Vitamin B-12) 1,000 MCG TABLET 1000 MCG PO (10:00)
[2024-07-14] MEDS: Finasteride 5 MG TABLET PO (10:00)
[2024-07-14] MEDS: cefTRIAXone sodium 1 GM VIAL IVPUSH (10:00)
[2024-07-14] MEDS: Ferrous Sulfate 324 MG TABLET.DR PO (10:00)
[2024-07-14] MEDS: Tamsulosin HCL 0.4 MG CAPSULE PO (10:01)
--- NOTE | 2024-07-14 10:11 | HO.WOUND ---
Wound Consult: Initial 89yr old?Male admitted to [facility] on 07/10/24 - See progress notes and H&P for detailed history.? Wound consult placed for Suprapubic Cath site, Coccyx and Perineal area.? Patient agreeable to assessment and photo documentation.? Sacrum Etiology: ??MASD Present on Admission Wound Bed: red pink blanchable tissue with scattered areas of partial thickness tissue loss with slough Drainage / Odor: none noted Edges: ?mirrored Rossy wound: pink blanchanble tissue -intact ? No Induration, Fluctuance or Warmth noted Pain: tenderness noted Goals of Treatment: ? Traid Suprapubic Cath Site Etiology: ??Hypergranulation tissue Present on Admission Wound Bed: red moist hypergranulation tiussue Drainage / Odor: serosang drainage Edges: ? unattached Rossy wound:intact ? No Induration, Fluctuance or Warmth noted Pain: tenderness reported Goals of Treatment: ? Treat Hypergranulation tissue with either topical steroid application or Silver Nitrate per provider and secure cath to minimize tube movement Perineal area Etiology: ??MASD Present on Admission Wound Bed: intact red pink blanchable tissue Drainage / Odor: None Edges: ? Mirrored Rossy wound: ?intact No Induration, Fluctuance or Warmth noted Goals of Treatment: ? barrier cream Recommendations: 1. Turn and Reposition every 2 hours and as needed for patient comfort.? Use pillows or wedges to support off loading positions. 2. Off Load all bony prominences with use of pillows and heel boots if needed.? Apply Preventative foams where needed. ? 3. Monitor for incontinence and moisture control, use barrier creams when needed for prevention and treatment. 4. Provide adequate and supplemental nutrition.? 5. Order low air loss mattress. 6. When applicable maintain blood glucose levels per Providers order. 7. Sacrum and Perineal -Off Load Pressure with Q2 hr turns and use of pillows - Cleanse with PH balance spray or wipes, pat dry. ?Apply thin layer of Triad to wound bed - only pat and dab no scrub and rub when soiling occurs. Reapply thin layer PRN after each episode of incontinence. 8. Suprapubic Cath - Cleanse with NS moist gauze, pat dry. Apply Skin Prep allow to dry. Apply topical steroid to hypergranulation tissue. Apply Drain Split gauze tape in place. Use Cath Secure to stabilize Tubing to minimize movement. Re-consult wound care Nurse for wound deterioration or wound changes.
[2024-07-14 11:16] VITALS: BP 103/54; PULSE 81; RESP 18; TEMP 37.2; O2SAT 95
--- NOTE | 2024-07-14 11:18 | PC.NURSE ---
Suprapubic cath draining ko/maroon color urine , DR Tripathi was notified
--- NOTE | 2024-07-14 13:24 | P.CDIM_ITS ---
PROVIDER RESPONSE TEXT: To clarify, the appropriate diagnosis supported by the clinical indicators: Yes the UTI is related to / associated with / due to Chronic suprapubic catheter: likely QUERY TEXT: PHYSICIAN'S DOCUMENTATION REQUEST Date of Query: 07/14/2024 07:50 AM EDT Patient Name: Jeet Mena Admit Date: 07/10/2024 Dear Boogie Tripathi MD, A review of the medical record indicates additional documentation may be needed. Please review below and update the documentation accordingly Clinical Indicators: Sepsis 2/2 UTI Urine Cx growing E. Coli and Strep/Entero Continue Ceftriaxone Microbiology 07/10 - Source: Kellogg catheter - Escherichia Coli/Enterococcus faecalis Suprapubic catheter changed 2 weeks prior, site with minor crusted drainage, internal skin exposed. Please clarify the relationship between these conditions: Yes the UTI is related to / associated with / due to Chronic suprapubic catheter possible, suspected, probable etc. No is not related to / associated with / due to Chronic suprapubic catheter Other (explain) Clinically unable to determine (explain) Thank you, Cherelle uQick, CCS, CDIS Use of terms such as suspected, likely, concern for, or probable (associated with a specific diagnosi s that is being evaluated, monitored, or treated as if it exists) are acceptable and can be coded in the inpatient se tting, when documented at the time of discharge. Please use your independent medical judgment in providing your response. THIS QUERY IS PART OF THE PERMANENT MEDICAL RECORD
--- NOTE | 2024-07-14 13:31 | P.DS_ITS ---
DS: Providers Provider Date of Service: 07/14/24 Date of admission: 07/10/24 12:06 Date of discharge: 07/14/24 Primary care physician: Dimitri Wilson MD Consults: 07/10/24 12:49 Consult to Urology Routine Consulting Provider: [facility] Reason for consultation: sepssis, UTI, suprapubic site looks concerning Has provider been notified: No 07/13/24 21:16 Consult to Wound Care Routine Reason for consultation: Redness to groin/coccyx and suprapubic cath site redness DS: Diagnosis Discharge Diagnosis (1) LEFTY (acute kidney injury): Status: Acute (2) Metabolic acidosis: Status: Acute (3) Hypomagnesemia: Status: Acute (4) EtOH dependence: Status: Acute (5) UTI (urinary tract infection): Status: Acute (6) BPH (benign prostatic hyperplasia): Status: Chronic (7) Hyponatremia: Status: Acute (8) Chronic suprapubic catheter: Status: Acute DS: Summary Hospital Course Hospital Course: Admission note HPI This is an 89-year-old male with past medical history hypertension, hyperlipidemia, cataract repair, ETOH use (last use 5 weeks ago), anemia, heart failure with reduced EF of 15-20%, coronary artery disease involving current occlusion of the LAD (patient is not a candidate for stents or open heart surgery), BPH with chronic suprapubic catheter site, atrial fibrillation on amiodarone and anticoagulation, ischemic cardiomyopathy, [id number] diabetes, osteoarthritis and history of dysphagia with recent EGD back in April of 2024 status post food bolus issue, and intermittent diarrhea presents to the emergency room via 911 due to inability to get out of bed this morning. Patient reports increasing weakness over the last 24 hours. Pt usually can walk well with walker. Pt lives with son and grandson and son called 911. Pt at first did not want to come in to be seen. Patient denied any fever, shortness of breath at rest or with exertion, productive cough, chills, night sweats or recent diarrhea. Patient has not traveled recently. Pt has had no recent falls or change in cognition. Patient offers that his suprapubic catheter that is left in chronically was last changed 2 weeks ago by the [facility]. Patient states that the catheter has required changing more often, sooner than the usual 30 days, due to irritability at the suprapubic insertion site. Patient last saw a urologist approximately 2 weeks ago and no concerns were raised. Nursing states when urine sample was collected the urine consistency was similar to chicken soup and the odor was foul. There was some minimal dried crusty drainage at the suprapubic site upon presentation to the ED. It is believed that UTI is source of pt's sepsis. Initially patient was also hypoxic. CXR noted with small pleural effusion, same as prior CXR witrh previous admission. Pt has significant hx of HFrEF, 15 to 20% and is normally on Lasix 20 mg daily and spironolactone. Pt was previously on ARB but this was discontinued during prior admission. Na 130 0n admission. Noted though that GFR has gone down from >60 to 46 since coming off the ARB (valsartan). Cardiology notes in outpatient visit 02/2024 that pt can no longer tolerate VI/ARB due to low BP. Exam was reassuring as there were no adventitious lung sounds, no JVD. BNP is pending. Pt is responding well to 2L NC. Pt does have O2 at home but has not required this. Viral testing is being done in the ED and results are pending. Pt meets criteria for sepsis due to leukocytosis, hypoxia, Lactic Acid of 7.0 and after fluid resuscitation, down to 2.5, positive UA and noted low bicarb but AG calculated 11. Mg also low and pt has since received 2 GMS of MG in ED. Rhythm NSR, no arrhythmias or tachycardia. Pt is not sure of his medications and per chart, med rec is not yet completed. Will need to differentiate if pt is on coumadin or eliquis. INR 1.6 today. Hospital course The patient was treated for: # Sepsis secondary to UTI complicated with acute lactic acidosis. Treated with IV Ceftriaxone as urine Cx grew E.Coli and Enterococcus responded to IV Ceftriaxone. To be discharged on Amoxicillin to cover both bacterias for 5 more days. The Suprapubic catheter changed 2 weeks prior to admission. Suprapubic site with minor crusted drainage, internal skin exposed. Urology report a reactive tissue at SPC. to use Silver nitrate only # Acute Hypoxic Respiratory Failure likely secondary to sepsis as CXR not showing any inflitrates. weaned down as tolerated to room air. has O2 at home but does not use. # Physical deconditioning, PT rec STR and will be discharged to nursing facility. # LEFYT with metabolic acidosis Back to baseline with IVF Bicarb improved to baseline. To repeat BMP next week. # Acute Hyponatremia, fluctuating improved to 134 at time of discharge. # Hypokalemia, acute. replacement given, resolved # Acute Hypomagnesemia. Given IV and PO replacement # HFrEF 15-20% Chronic LAD disease. He is not a candiate for stents or open heart. restart Lasix and spironolactone. patient cannot tolerate VI/ARB due to hx of low BP. # Acute on chronic Anemia. Hb lower than baseline at 9.2 during hospital stay with low iron studies, low B12 levels started on replacement with PO Iron and B12 supplement. Discharge plan Continue Antibiotic for 5 more days Increase water intake and monitor weight Monitor blood pressure and edema and discuss with PCP before restarting Lasix Iron supplement Silver nitrate for Suprapubic catheter wound apply daily Follow with dr Lea in office as needed To repeat kidney function next week Time Attestation Discharge Coordination Time (in mins): 43 Quality: Safe Use of Opioids Does Pt have an Active Cancer Diagnosis on the Problem List?: No Quality: Stroke Does the patient have a stroke diagnosis?: No Physical Exam Vital Signs: Vital Signs: Last Vital Signs Temp 99 F 07/14/24 11:16 Pulse 81 07/14/24 11:16 Resp 18 07/14/24 11:16 BP 103/54 L 07/14/24 11:16 Pulse Ox 95 07/14/24 11:16 O2 Del Method Room Air 07/14/24 11:16 O2 Flow Rate 2 07/12/24 09:24 BMI result Body Mass Index 23.6 Const: Other: Constitutional : interactive, frail looking, not in distress Cardiovascular : no JVP, no lower extremity edema Respiratory : bilateral chest movement, not in resp distress Gastrointestinal: soft, lax, Non tender Skin : Warm, Dry, Suprapubic cath in place Neurological : Alert & oriented , No focal deficit DS: Data Data Completed and Pending Labs on day of discharge: Laboratory Results - last 24 hr 07/14/24 06:25 Hold Purple Top SEE NOTE Sodium 134 L Potassium 4.6 Chloride 104 Carbon Dioxide 21 L Anion Gap 14 BUN 26 H Creatinine 1.26 Estim Creat Clear Calc 41.8 Estimated GFR 54 Random Glucose 160 H Calcium 8.7 Preliminary micro results at discharge 07/10/24 09:02 Blood Culture - Preliminary Blood - Venous No growth after 48 hours. 07/10/24 09:02 Blood Culture - Preliminary Blood - Venous No growth after 48 hours. Imaging Chest x-ray: Radiologist's impression: ITS Impressions Chest X-Ray 07/10/24 08:36 IMPRESSION: Calcified pleural plaques. Small right pleural effusion with adjacent subsegmental atelectasis versus scar. Electronically signed by: Jeffrey Ugalde MD 07/10/2024 08:58 AM EDT RP Discharge Plan Discharge Anticipated Discharge Date/Time: 07/14/24 13:21 Patient Disposition: Xfer [facility] Discharge Diagnosis: UTI Complicated Kidney injury Referrals: [facility] [Outside] - 1 Week Dimitri Wilson MD [Primary Care Provider] - 1 Week Discharge Medications: New silver nitrate applicators 75-25 % Stick 1 appl topical DAILY Qty: 30 0RF ferrous sulfate 324 mg (65 mg iron) Tablet,Delayed Release (Dr/Ec) 324 mg PO DAILY Qty: 90 0RF amoxicillin 500 mg capsule 500 mg PO BID Qty: 10 0RF cyanocobalamin (vitamin B-12) [Vitamin B-12] 1,000 mcg Tablet 1,000 mcg PO DAILY Qty: 90 0RF magnesium oxide 400 mg magnesium tablet 400 mg PO DAILY Qty: 90 0RF Continued (DME) blood-glucose meter [Accu-Chek Guide Glucose Meter] Misc See Rx Instructions .Route Qty: 1 0RF Rx Instructions: As directed (DME) blood-glucose meter [FreeStyle Lite Meter] Kit See Rx Instructions .ROUTE .COMPLEX Qty: 1 0RF Dose Instruction: USE DIRECTED Rx Instructions: USE DIRECTED amiodarone 200 mg tablet 200 mg PO DAILY 90 Days Qty: 90 3RF Eliquis 5 mg tablet 5 mg PO BID Qty: 180 3RF Rx Instructions: Coumadin needs to be stopped 2 days before starting Eliquis. DX Afib (DME) FreeStyle Lite Strips Strip See Rx Instructions .Route Qty: 100 8RF Rx Instructions: to check blood sugars once a day spironolactone 25 mg tablet 25 mg PO DAILY Qty: 90 1RF Protocol: Hold for SBP< HOLD for SBP < : 90 atorvastatin 40 mg tablet 40 mg PO BEDTIME Qty: 90 3RF finasteride 5 mg tablet 5 mg PO DAILY 90 Days Qty: 90 1RF tamsulosin 0.4 mg capsule 0.4 mg PO DAILY 90 Days Qty: 90 0RF solifenacin [Vesicare] 5 mg tablet 5 mg PO DAILY 30 Days Qty: 30 1RF metformin 500 mg Tablet Extended Release 24 Hr 1,000 mg PO BID acetaminophen 500 mg Tablet 1,000 mg PO BID PRN (Reason: Pain) methenamine hippurate 1 gram tablet 1 g PO DAILY 90 Days Qty: 90 1RF Held furosemide 20 mg tablet 20 mg PO DAILY Hold Instructions: Monitor blood pressure. discuss with PCP after repeating blood work Discharge Orders: Discharge Order (Routine); Ordered 07/14/24 Ordered By: Boogie Tripathi Diet: Advance to usual diet Activity on Discharge: As tolerated Stand Alone Forms: Patient Portal Discharge page Print Language: Slovak Other Ambulatory Orders: Basic Metabolic Panel (Routine) Timeframe: 1 Week Facility: [facility] - Location: Laboratory Ordered By: Boogie Tripathi Care Plan Goals: Continue Antibiotic for 5 more days Increase water intake and monitor weight Monitor blood pressure and edema and discuss with PCP before restarting Lasix Iron supplement Silver nitrate for Suprapubic catheter wound apply daily Follow with dr Lea in office as needed Health Concerns: Urine infection Plan of Treatment: Antibiotics wound care Assessment: as above
--- NOTE | 2024-07-14 13:34 | MHC.CM.PN ---
Pt has been medically cleared to DC, he will go today to [facility].
== END 2024-07-14 14:48 | disposition skilled nursing facility (03) | DRG 698 ==
LOC: HO.ED 11:56 → HO.EDOVER 12:38 → HO.IMC 07-11 01:51
PROVIDERS: Physician Assistant; Admitting Provider Nurse Practitioner Family; Emergency Provider Emergency Medicine; PCP Internal Medicine; Visit Provider Student in an Organized Health Care Education/Training Program
DX: T83.510A Infection and inflammatory reaction due to cystostomy catheter, initial encounter (principal); A41.9 Sepsis, unspecified organism; J96.01 Acute respiratory failure with hypoxia; E87.21 Acute metabolic acidosis; N39.0 Urinary tract infection, site not specified; N17.9 Acute kidney failure, unspecified; E87.1 Hypo-osmolality and hyponatremia; I50.22 Chronic systolic (congestive) heart failure; E83.42 Hypomagnesemia; I25.10 Atherosclerotic heart disease of native coronary artery without angina pectoris; I48.0 Paroxysmal atrial fibrillation; N40.0 Benign prostatic hyperplasia without lower urinary tract symptoms; E87.6 Hypokalemia; D64.9 Anemia, unspecified; F10.11 Alcohol abuse, in remission; I25.5 Ischemic cardiomyopathy; B96.20 Unspecified Escherichia coli [E. coli] as the cause of diseases classified elsewhere; B95.2 Enterococcus as the cause of diseases classified elsewhere; Z20.822 Contact with and (suspected) exposure to COVID-19; Z87.891 Personal history of nicotine dependence; Z79.01 Long term (current) use of anticoagulants; Z79.84 Long term (current) use of oral hypoglycemic drugs; Z79.899 Other long term (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
CPT/HCPCS: 0241U; 36415; 71045; 80048; 80053; 80307; 81001; 82607; 83540; 83605; 83735; 83880; 84484; 85025; 85379; 85610; 87040; 87086; 87088; 87186; 93005; 97161; 99285; J0613; J0696; J2470; J3420; J3475

== ENCOUNTER → 2024-07-10 08:35 | Outpatient (BNV) | payer OTHER, MEDICARE, SELFPAY | PROVIDERS: Admitting Provider Nurse Practitioner Family; Emergency Provider Emergency Medicine; PCP Internal Medicine; Visit Provider Internal Medicine Cardiovascular Disease | DX: I45.9 Conduction disorder, unspecified (principal) | CPT/HCPCS: 93010 ==

== ENCOUNTER → 2024-07-10 08:36 | Outpatient (BNV) | payer MEDICARE, OTHER, SELFPAY | PROVIDERS: PCP Internal Medicine; Visit Provider Radiology Diagnostic Radiology | DX: J90 Pleural effusion, not elsewhere classified (principal); J92.9 Pleural plaque without asbestos | CPT/HCPCS: 71045 ==

== ENCOUNTER → 2024-07-10 12:06 | Outpatient (BNV) | payer OTHER, MEDICARE, SELFPAY | PROVIDERS: Admitting Provider Nurse Practitioner Family; Emergency Provider Emergency Medicine; PCP Internal Medicine; Visit Provider Nurse Practitioner Family | DX: E53.8 Deficiency of other specified B group vitamins (principal); N40.0 Benign prostatic hyperplasia without lower urinary tract symptoms; N17.9 Acute kidney failure, unspecified; E87.20 Acidosis, unspecified; E83.42 Hypomagnesemia; T83.510A Infection and inflammatory reaction due to cystostomy catheter, initial encounter; N39.0 Urinary tract infection, site not specified; A41.9 Sepsis, unspecified organism; R65.20 Severe sepsis without septic shock | CPT/HCPCS: 99232; 99233; 99239 ==

== ENCOUNTER → 2024-08-11 09:25 | Outpatient (BNVA) | payer OTHER, SELFPAY | PROVIDERS: PCP Internal Medicine; Visit Provider Urology | DX: R31.9 Hematuria, unspecified (principal); Z46.6 Encounter for fitting and adjustment of urinary device; Z93.59 Other cystostomy status | CPT/HCPCS: 51705 ==

== ENCOUNTER 2024-08-24 12:16 | Outpatient (REF) | payer MEDICARE, OTHER, SELFPAY ==
[2024-08-24 12:41] LABS: Appearance Urine Turbid; Color Urine Dark Yellow; Glucose Urine UA 500 mg/dL (Negative); Leukocyte Esterase Urine Large (3+) (Negative); Nitrite Urine Negative (Negative); Specific Gravity - Urine 1.025 (1.005-1.025); UMIC TRIGGER UA YES; Urine Blood Large (3+) (Negative); Urine Ketones Trace mg/dL (Negative); Urine Protein 100 (2+) mg/dL (Neg-Trace)
[2024-08-24 13:11] LABS: Bacteria Urine 4+ (None Seen); Hyaline Casts Urine >20 /LPF (0-2); RBC Urine >20 /HPF (0-2); Squamous Epithelial Cell Urine 0-2 /HPF (0-2); WBC Urine >50 /HPF (0-5)
--- OUTSIDE RECORDS SUMMARY | 2024-08-24 13:45 | XMS_ITS | Continuity of Care Document ---
Author Name [facility] Organization [facility] Care Team Providers Care Test Analyst Name Role Phone [facility] Unavailable Unavailable Problems Combined list of problems from Department of Defense and Veterans Affairs facilities. It does not include entries that were removed or entered in error. Problem Status Onset Date Problem Type Date of Resolution Comments Source AF - Atrial fibrillation Active Condition [place] CAD - Coronary Artery Disease ([facility] [id number]) Active Condition [place] CHF - Congestive Heart Failure ([facility] [id number]) Active Condition [place] Chronic kidney disease Active Condition [place] Diabetes Mellitus Type 2 ([facility] [id number]) Active Condition [place] Frail elderly Active Condition [facility] [facility] History of cardiac catheterization Active [facility] HTN - Hypertension ([facility] [id number]) [facility] Hyperlipidemia ([facility] [id number]) Active Condition [place] Ischemic congestive cardiomyopathy Active Condition [facility] D Long-term current use of anticoagulant Active [place] [facility] [facility] Lower urinary tract symptoms due to benign prostatic hypertrophy Active Condition Apr 23, 2024 Entered By: JUVENTINO MARTIN Comment: urinary retention w SP cath [place] OA - Osteoarthritis ([facility] [id number]) Active Condition [facility] Under care of multiple providers Active Condition Apr 28 Entered By: JUVENTINO MARTIN Comment: non [facility] PCP: Roopa Wilson [phone] : dual care note sent 04/28/24Dec 20, 2023 Entered By: RUKHSANA HANKINS Comment: Cardiology: Yosef Cuello [phone] Dec 20, 2023 Entered By: ROBIN FU Comment: Optometry: Randall Blake [phone] Apr 23, 2024 Entered By: JUVENTINO MARTIN Comment: [facility]: fax# [phone] [facility] Diagnosis: ICD-10-CM N18.9 Chronic kidney disease, unspecified Active Diagnosis [facility] Diagnosis: ICD-10-CM Z71.9 Counseling, unspecified Active Diagnosis [facility] Diagnosis: ICD-10-CM Z79.899 Other terminal gauger (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 Active Diagnosis [facility] Diagnosis: ICD-10-CM Z65.9 Problem related to unspecified psychosocial circumstances Active Diagnosis [facility] Diagnosis: ICD-10-CM Z04.89 Encounter for examination and observation for oth reasons Active Diagnosis [facility] Diagnosis: ICD-10-CM N40.1 Benign prostatic hyperplasia with lower urinary tract symp Active Diagnosis [facility] Diagnosis: ICD-10-CM R26.9 Unspecified abnormalities of gait and mobility Active Diagnosis [facility] Diagnosis: ICD-10-CM R54 Age-related physical debility Active Diagnosis [facility] Diagnosis: ICD-10-CM I50.9 Heart failure, unspecified Active Diagnosis [facility] Diagnosis: ICD-10-CM Z51.81 Encounter for therapeutic drug level monitoring Active Diagnosis [facility] Diagnosis: ICD-10-CM 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 Medication Details Route Status Patient Instructions Prescription Expires Prescription Number Last Dispense Date Ordering Provider Order Date Order Qty Source ACETAMINOPH EN 500MG TAB TAKE TWO TABLETS BY MOUTH TWICE DAILY NEEDED FOR PAIN ORAL ACTIVE 04/28/2025 [id number] CORY PEREZ 2024 100 [facility] AMIODARONE HCL 200MG TAB TAKE ONE TABLET BY MOUTH ONCE DAILY FOR VENTRICU LAR FIBRILLA TION ORAL ACTIVE 04/28/2025 [id number] 5 [place] [address] 90 [facility] APIXABAN 5MG TAB TAKE ONE-HALF TABLET BY MOUTH EVERY 12 HOURS FOR ATRIAL FIBRILLA TION ORAL ACTIVE 05/19/2025 [id number] 5 [place] [address] 90 [facility] APIXABAN 5MG TAB TAKE ONE TABLET BY MOUTH EVERY 12 HOURS FOR ATRIAL FIBRILLA TION ORAL DISCONT INUED (EDIT) 04/28/2025 [id number] 5 [place]EREZ [place] [address] 180 [facility] APIXABAN 5MG TAB TAKE ONE TABLET BY MOUTH EVERY 12 HOURS FOR ATRIAL FIBRILLA TION ORAL DISCONT INUED 05/05/2024 [id number] 4 STELEA,CA RMEN F 2023 180 [place] ATORVASTATI N [place] 40MG TAB TAKE ONE TABLET BY MOUTH AT BEDTIME FOR HIGH CHOLESTE ROL ORAL ACTIVE 04/28/2025 [id number] 5 DREAD CEBALLOS,CYN [place] [address] 90 [facility] FINASTERIDE 5MG TAB TAKE ONE TABLET BY MOUTH ONCE DAILY FOR ENLARGED PROSTATE ORAL ACTIVE 04/28/2025 [id number] 5 DREAD CEBALLOS,CYN [place] [address] 90 [facility] FUROSEMIDE 20MG TAB TAKE ONE TABLET BY MOUTH ONCE DAILY TO REMOVE FLUID/CO NTROL BLOOD PRESSURE ORAL ACTIVE 04/28/2025 [id number] 5 DREAD CEBALLOS,CYN [place] [address] 90 [facility] METFORMIN HCL 500MG 24HR TAB,SA TAKE TWO TABLETS BY MOUTH TWICE DAILY FOR TYPE 2 DIABETES MELLITUS ORAL ACTIVE 04/28/2025 [id number] 5 DREAD SAMUELY,[place] [address] [address] [facility] METHENAMINE HIPPURATE 1GM TAB TAKE ONE TABLET BY MOUTH ONCE DAILY ORAL ACTIVE DREAD SAMUELY,[place]ANTH [place] [address]24 [facility] SOLIFENACIN SUCCINATE 5MG TAB TAKE ONE TABLET BY MOUTH ONCE DAILY FOR OVERACTI VE BLADDER ORAL ACTIVE 04/28/2025 [id number] 5 DREAD SAMUELY,CYNTH IA [address] 90 [facility] SPIRONOLACT ONE 25MG TAB TAKE ONE TABLET BY MOUTH ONCE DAILY FOR HEART FAILURE ORAL ACTIVE 04/28/2025 [id number] 5 DREAD SAMUELY,CYNTH [place] [address] 90 [facility] TAMSULOSIN HCL 0.4MG CAP TAKE ONE CAPSULE BY MOUTH ONCE DAILY FOR ENLARGED PROSTATE ORAL ACTIVE 04/28/2025 [id number] 5 DREAD CEBALLOS,CYNTH [place] [address] 90 [facility] Immunizations Combined list of available immunizations from the Department of Defense and [facility] Affairs facilities. Immunization Series Date Given Administered By Site Reaction Lot Number CVX Code Drug Business Information Manager Status Comments Source PNEUMOCOCCAL CONJUGATE PCV20, POLYSACCHARID E [id number] CONJUGATE, ADJUVANT, PF 2024 LISA VIVAS LEFT DELTO ID [id number] 216 complet ed [facility] RSV, RECOMBINANT, PROTEIN SUBUNIT RSVPREF3, ADJUVANT RECONSTITUTED , 0.5 ML, PF 2024 LISA VIVAS LEFT DELTO ID [id number] 303 complet ed [facility] COVID-19 (PFIZER), MRNA, LNP-S, PF, EMELINA-SUCROSE, 30 MCG/0.3 ML (AGES 12+ YEARS) 2023 309 complet ed HISTORICA L INFORMATI ON - FROM PATIENT'S RECALL, [facility] INFLUENZA, UNSPECIFIED FORMULATION 2023 88 complet ed HISTORICA L INFORMATI ON - FROM PATIENT'S RECALL, [facility] COVID-19 (PFIZER), MRNA, LNP-S, BIVALENT, PF, 30 MCG/0.3 ML DOSE 1 2022 300 complet ed HISTORICA L INFORMATI ON - FROM OTHER PROVIDER, noted in [facility] medical record [facility] COVID-19 ([employer]), MRNA, LNP-S, BIVALENT, PF, 30 MCG/0.3 ML DOSE 1 2021 300 complet ed HISTORICA L INFORMATI ON - FROM OTHER PROVIDER, noted in [facility] medical record [facility] COVID-19 ([employer]), MRNA, LNP-S, PF, EMELINA-SUCROSE, 30 MCG/0.3 ML (AGES 12+ YEARS) 1 2021 309 complet ed HISTORICA L INFORMATI ON - FROM OTHER PROVIDER, noted in [facility] medical record [facility] COVID-19 ([employer]), MRNA, LNP-S, PF, 30 MCG/0.3 ML DOSE 1 2020 208 complet ed HISTORICA L INFORMATI ON - FROM OTHER PROVIDER, noted in [facility] medical record [facility] COVID-19 ([employer]), MRNA, LNP-S, BIVALENT, PF, 30 MCG/0.3 ML DOSE 1 2020 300 complet ed HISTORICA L INFORMATI ON - FROM OTHER PROVIDER, noted in [facility] medical record [facility] COVID-19 (P[employer]ZER), MRNA, LNP-S, PF, 30 MCG/0.3 ML DOSE 1 2020 208 complet ed HISTORICA L INFORMATI ON - FROM OTHER PROVIDER, noted in [facility] medical record [facility] ZOSTER LIVE 2011 121 complet ed HISTORICA L INFORMATI ON - FROM PATIENT'S WRITTEN RECORD, [facility] Results Combined list of recent chemistry, hematology [...] Apr 27, 2024 03:55 PM Reporting Lab: [address] [address] Performing Lab: [facility] [address] [facility] [address] [facility] BASIC METABOLIC PANEL (non-fast ing) GLUCOSE [MASS/VOLUM E] IN SERUM OR PLASMA 285 mg/dL 65 - 100 05/15 H Specimen Type: SERUM No comment entered. Ordering Provider: JUVENTINO FRIEDMAN Report Released Date/Time: Apr 27, 2024 03:55 PM Reporting Lab: [address] [address] Performing Lab: [address] [address] [facility] BASIC METABOLIC PANEL (non-fast ing) SODIUM [MOLES/VOLU ME] IN SERUM OR PLASMA 130 mmol/L 135 - 145 05/15 L Specimen Type: SERUM No comment entered. Ordering Provider: JUVENTINO FRIEDMAN Report Released Date/Time: Apr 27, 2024 03:55 PM Reporting Lab: [address] [address] Performing Lab: [address] [address] [facility] BASIC METABOLIC PANEL (non-fast ing) POTASSIUM [MOLES/VOLU ME] IN SERUM OR PLASMA 4.9 mmol/L 3.5 - 5.0 05/15 Specimen Type: SERUM No comment entered. Ordering Provider: JUVENTINO FRIEDMAN Report Released Date/Time: Apr 27, 2024 03:55 PM Reporting Lab: [facility] [address] [facility] [address] Performing Lab: [facility] [address] [facility] [address] [facility] BASIC METABOLIC PANEL (non-fast ing) CHLORIDE [MOLES/VOLU ME] IN SERUM OR PLASMA 96 mmol/L 100 - 110 05/15 L Specimen Type: SERUM No comment entered. Ordering Provider: JUVENTINO FRIEDMAN Report Released Date/Time: Apr 27, 2024 03:55 PM Reporting Lab: [facility] [address] [facility] [address] Performing Lab: [facility] [address] [address] [facility] BASIC METABOLIC PANEL (non-fast ing) CARBON DIOXIDE, TOTAL [MOLES/VOLU ME] IN SERUM OR PLASMA 23 meq/L 20 - 30 05/15 Specimen Type: SERUM No comment entered. Ordering Provider: JUVENTINO FRIEDMAN Report Released Date/Time: Apr 27, 2024 03:55 PM Reporting Lab: [facility] [address] [facility] [address] Performing Lab: [facility] [address] [address] [facility] BASIC METABOLIC PANEL (non-fast ing) CREATININE [MASS/VOLUM E] IN SERUM OR PLASMA 1.51 mg/dL 0.50 - 1.40 05/15 H Specimen Type: SERUM No comment entered. Ordering Provider: JUVENTINO FIREDMAN Report Released Date/Time: Apr 27, 2024 03:55 PM Reporting Lab: [facility] [address] [facility] [address] Performing Lab: [facility] [address] [facility] BASIC METABOLIC PANEL (non-fast ing) GLOMERULAR FILTRATION RATE/1.73 SQ M.PREDICTED [VOLUME RATE/AREA] IN SERUM, PLASMA OR BLOOD BY CREATININE- BASED FORMULA (CKD-EPI 2020) 44 mL/min 60 05/15 L Specimen Type: SERUM No comment entered. Ordering Provider: JUVENTINO FRIEDMAN Report Released Date/Time: Apr 27, 2024 03:55 PM Reporting Lab: [facility] [place] [address] [address] Performing Lab: [facility] [place] [address] [address] [facility] LIPID PANEL FASTING CHOLESTEROL [MASS/VOLUM E] IN SERUM OR PLASMA 101 mg/dL 05/15 Specimen Type: SERUM No comment entered. Ordering Provider: JUVENTINO FRIEDMAN Report Released Date/Time: Apr 27, 2024 03:55 PM Reporting Lab: [facility] [place] [address] [address] Performing Lab: [facility] [place] [address] [address] [facility] LIPID PANEL FASTING TRIGLYCERID E [MASS/VOLUM E] IN SERUM OR PLASMA 87 mg/dL 0 - 150 05/15 Specimen Type: SERUM No comment entered. Ordering Provider: JUVENTINO FRIEDMAN Report Released Date/Time: Apr 27, 2024 03:55 PM Reporting Lab: [facility] [place] [address] [address] Performing Lab: [facility] [place] [address] [address] [facility] LIPID PANEL FASTING CHOLESTEROL IN LDL [MASS/VOLUM E] IN SERUM OR PLASMA BY CALCULATION 45 mg/dL 0 - 129 05/15 Specimen Type: SERUM No comment entered. Ordering Provider: JUVENTINO FRIEDMAN Report Released Date/Time: Apr 27, 2024 03:55 PM Reporting Lab: [facility] [place] [address] [address] Performing Lab: [facility] [place] [facility] [address] [facility] [address] [facility] LIPID PANEL FASTING CHOLESTEROL .TOTAL/CHOL ESTEROL IN HDL [MASS RATIO] IN SERUM OR PLASMA 2.6 05/15 Specimen Type: SERUM No comment entered. Ordering Provider: JUVENTINO FRIEDMAN Report Released Date/Time: Apr 27, 2024 03:55 PM Reporting Lab: [facility] [place] [facility] [address] [facility] [address] Performing Lab: [facility] [place] [facility] [address] [facility] [address] [facility] LIPID PANEL FASTING CHOLESTEROL IN HDL [MASS/VOLUM E] IN SERUM OR PLASMA 39 mg/dL 40 - 60 05/15 L Specimen Type: SERUM No comment entered. Ordering Provider: JUVENTINO FRIEDMAN Report Released Date/Time: Apr 27, 2024 03:55 PM Reporting Lab: [facility] [place] [facility] [address] [facility] [address] Performing Lab: [facility] [place] [facility] [address] [facility] [address] [facility] LIVER FUNCTION PROTEIN [MASS/VOLUM E] IN SERUM OR PLASMA 7.2 g/dL 6.0 - 8.3 05/15 Specimen Type: SERUM No comment entered. Ordering Provider: JUVENTINO FRIEDMAN Report Released Date/Time: Apr 27, 2024 03:55 PM Reporting Lab: [facility] [place] [facility] [address] [facility] [address] Performing Lab: [facility] [place] [facility] [address] [facility] [address] [facility] LIVER FUNCTION ALBUMIN [MASS/VOLUM E] IN SERUM OR PLASMA 3.3 g/dL 3.5 - 5.0 05/15 L Specimen Type: SERUM No comment entered. Ordering Provider: JUVENTINO FRIEDMAN Report Released Date/Time: Apr 27, 2024 03:55 PM Reporting Lab: [facility] [place] [facility] [address] [facility] [address] Performing Lab: [facility] [address] [facility] [address] [facility] LIVER FUNCTION ALKALINE PHOSPHATASE [ENZYMATIC ACTIVITY/VO LUME] IN SERUM OR PLASMA 92 U/L 40 - 150 05/15 Specimen Type: SERUM No comment entered. Ordering Provider: JUVENTINO FRIEDMAN Report Released Date/Time: Apr 27, 2024 03:55 PM Reporting Lab: [facility] [place] [facility] [address] [facility] [address] Performing Lab: [facility] [place] [facility] [address] [facility] [address] [facility] LIVER FUNCTION ASPARTATE AMINOTRANSF ERASE [ENZYMATIC ACTIVITY/VO LUME] IN SERUM OR PLASMA 10 U/L 5 - 34 05/15 Specimen Type: SERUM No comment entered. Ordering Provider: JUVENTINO FRIEDMAN Report Released Date/Time: Apr 27, 2024 03:55 PM Reporting Lab: [facility] [place] [facility] [address] [facility] [address] Performing Lab: [facility] [place] [facility] [address] [facility] [address] [facility] LIVER FUNCTION ALANINE AMINOTRANSF ERASE [ENZYMATIC ACTIVITY/VO LUME] IN SERUM OR PLASMA 11 U/L 05/15 Specimen Type: SERUM No comment entered. Ordering Provider: JUVENTINO FRIEDMAN Report Released Date/Time: Apr 27, 2024 03:55 PM Reporting Lab: [facility] [place] [facility] [address] [facility] [address] Performing Lab: [facility] [place] [facility] [address] [facility] [address] [facility] LIVER FUNCTION BILIRUBIN.T OTAL [MASS/VOLUM E] IN SERUM OR PLASMA 0.5 mg/dL 0.2 - 1.2 05/15 Specimen Type: SERUM No comment entered. Ordering Provider: JUVENTINO FRIEDMAN Report Released Date/Time: Apr 27, 2024 03:55 PM Reporting Lab: [facility] [address] [facility] [address] Performing Lab: [facility] [address] [facility] [address] [facility] HEMOGLOBI N A1C PANEL HEMOGLOBIN A1C/HEMOGLO BIN.TOTAL [...] Apr 27, 2024 03:55 PM Reporting Lab: [facility] [address] Performing Lab: [facility] [address] [facility] TSH THYROTROPIN [UNITS/VOLU ME] IN SERUM OR PLASMA 0.40 u[IU]/ mL 0.35 - 5.00 05/15 Specimen Type: SERUM No comment entered. Ordering Provider: JUVENTINO FRIEDMAN Report Released Date/Time: Apr 27, 2024 03:55 PM Reporting Lab: [facility] [address] Performing Lab: [facility] [address] [facility] CBC AND DIFF (AUTO) LEUKOCYTES [#/VOLUME] IN BLOOD BY AUTOMATED COUNT 14.22 10*3/u L 4.50 - 11.00 05/15 H Specimen Type: BLOOD No comment entered. Ordering Provider: JUVENTINO FRIEDMAN Report Released Date/Time: Apr 27, 2024 03:55 PM Reporting Lab: [facility] [place] [facility] [address] [facility] [address] Performing Lab: [facility] [place] [facility] [address] [facility] [address] [facility] CBC AND DIFF (AUTO) ERYTHROCYTE S [#/VOLUME] IN BLOOD BY AUTOMATED COUNT 3.45 10*6/u L 4.23 - 5.66 05/15 L Specimen Type: BLOOD No comment entered. Ordering Provider: JUVENTINO FRIEDMAN Report Released Date/Time: Apr 27, 2024 03:55 PM Reporting Lab: [facility] [place] [facility] [address] [facility] [address] Performing Lab: [facility] [place] [facility] [address] [facility] [address] [facility] [facility] CBC AND DIFF (AUTO) HEMOGLOBIN [MASS/VOLUM E] IN BLOOD 10.7 g/dL 12.8 - 17 05/15 L Specimen Type: BLOOD No comment entered. Ordering Provider: JUVENTINO FRIEDMAN Report Released Date/Time: Apr 27, 2024 03:55 PM Reporting Lab: [facility] [place] [facility] [address] [facility] [address] Performing Lab: [facility] [place] [facility] [address] [facility] [address] [facility] CBC AND DIFF (AUTO) HEMATOCRIT [VOLUME FRACTION] OF BLOOD BY AUTOMATED COUNT 32.4 39.2 - 50.4 05/15 L Specimen Type: BLOOD No comment entered. Ordering Provider: JUVENTINO FRIEDMAN Report Released Date/Time: Apr 27, 2024 03:55 PM Reporting Lab: [facility] [place] [facility] [address] [facility] [address] Performing Lab: [facility] [place] [facility] [address] [facility] [address] [facility] CBC AND DIFF (AUTO) MCV [ENTITIC VOLUME] BY AUTOMATED COUNT 93.9 fL 82 - 99 05/15 Specimen Type: BLOOD No comment entered. Ordering Provider: JUVENTINO FRIEDMAN Report Released Date/Time: Apr 27, 2024 03:55 PM Reporting Lab: [facility] [place] [facility] [address] [facility] [address] Performing Lab: [facility] [place] [facility] [address] [facility] [address] [facility] CBC AND DIFF (AUTO) MCHC [MASS/VOLUM E] BY AUTOMATED COUNT 33.0 g/dL 30.8 - 35.1 05/15 Specimen Type: BLOOD No comment entered. Ordering Provider: JUVENTINO FRIEDMAN Report Released Date/Time: Apr 27, 2024 03:55 PM Reporting Lab: [facility] [place] [address] [address] Performing Lab: [facility] [place] [facility] [address] [facility] [address] [facility] CBC AND DIFF (AUTO) PLATELETS [#/VOLUME] IN BLOOD BY AUTOMATED COUNT 311 10*3/u L 140 - 360 05/15 Specimen Type: BLOOD No comment entered. Ordering Provider: JUVENTINO FRIEDMAN Report Released Date/Time: Apr 27, 2024 03:55 PM Reporting Lab: [facility] [place] [facility] [address] [facility] [address] Performing Lab: [facility] [place] [facility] [address] [facility] [address] [facility] [place] [facility] CBC AND DIFF (AUTO) ERYTHROCYTE DISTRIBUTIO N WIDTH [RATIO] BY AUTOMATED COUNT 13.2 12.0 - 16.0 05/15 Specimen Type: BLOOD No comment entered. Ordering Provider: JUVENTINO FRIEDMAN Report Released Date/Time: Apr 27, 2024 03:55 PM Reporting Lab: [facility] [place] [facility] [address] [facility] [address] Performing Lab: [facility] [place] [address] [place] [address] [facility] [place] [facility] CBC AND DIFF (AUTO) MONOCYTES [#/VOLUME] IN BLOOD BY AUTOMATED COUNT 0.89 10*3/u L 0.30 - 1.10 05/15 Specimen Type: BLOOD No comment entered. Ordering Provider: JUVENTINO FRIEDMAN Report Released Date/Time: Apr 27, 2024 03:55 PM Reporting Lab: [facility] [place] [facility] [address] [facility] [address] Performing Lab: [facility] [place] [facility] [address] [facility] [address] [facility] [place] [facility] CBC AND DIFF (AUTO) MCH [ENTITIC MASS] BY AUTOMATED COUNT 31.0 pg 26.2 - 32.6 05/15 Specimen Type: BLOOD No comment entered. Ordering Provider: JUVENTINO FRIEDMAN Report Released Date/Time: Apr 27, 2024 03:55 PM Reporting Lab: [facility] [place] [facility] [address] [facility] [address] Performing Lab: [facility] [place] [address] [address] [facility] [place] [facility] CBC AND DIFF (AUTO) NEUTROPHILS /100 LEUKOCYTES IN BLOOD BY AUTOMATED COUNT 83.8 43.7 - 75.8 05/15 H Specimen Type: BLOOD No comment entered. Ordering Provider: JUVENTINO FRIEDMAN Report Released Date/Time: Apr 27, 2024 03:55 PM Reporting Lab: [facility] [place] [facility] [address] [facility] [address] Performing Lab: [facility] [place] [address] [address] [facility] [place] [facility] CBC AND DIFF (AUTO) LYMPHOCYTES /100 LEUKOCYTES IN BLOOD BY AUTOMATED COUNT 8.2 14.0 - 42.3 05/15 L Specimen Type: BLOOD No comment entered. Ordering Provider: JUVENTINO FRIEDMAN Report Released Date/Time: Apr 27, 2024 03:55 PM Reporting Lab: [facility] [place] [facility] [address] [facility] [address] Performing Lab: [facility] [place] [facility] [address] [facility] [address] [facility] CBC AND DIFF (AUTO) MONOCYTES/1 00 LEUKOCYTES IN BLOOD BY AUTOMATED COUNT 6.3 5.1 - 13.7 05/15 Specimen Type: BLOOD No comment entered. Ordering Provider: JUVENTINO FRIEDMAN Report Released Date/Time: Apr 27, 2024 03:55 PM Reporting Lab: [facility] [place] [facility] [address] [facility] [address] Performing Lab: [facility] [place] [address] [address] [facility] [place] [facility] CBC AND DIFF (AUTO) EOSINOPHILS /100 LEUKOCYTES IN BLOOD BY AUTOMATED COUNT 0.7 0.4 - 6.8 05/15 Specimen Type: BLOOD No comment entered. Ordering Provider: JUVENTINO FRIEDMAN Report Released Date/Time: Apr 27, 2024 03:55 PM Reporting Lab: [facility] [place] [address] [address] Performing Lab: [facility] [place] [address] [address] [facility] CBC AND DIFF (AUTO) BASOPHILS/1 00 LEUKOCYTES IN BLOOD BY AUTOMATED COUNT 0.3 0.1 - 2.0 05/15 Specimen Type: BLOOD No comment entered. Ordering Provider: JUVENTINO FRIEDMAN Report Released Date/Time: Apr 27, 2024 03:55 PM Reporting Lab: [facility] [place] [facility] [address] [facility] [address] Performing Lab: [facility] [place] [address] [address] [facility] [place] [facility] CBC AND DIFF (AUTO) NEUTROPHILS [#/VOLUME] IN BLOOD BY AUTOMATED COUNT 11.92 10*3/u L 2.20 - 7.60 05/15 H Specimen Type: BLOOD No comment entered. Ordering Provider: JUVENTINO FRIEDMAN Report Released Date/Time: Apr 27, 2024 03:55 PM Reporting Lab: [facility] [place] [facility] [address] [facility] [address] Performing Lab: [facility] [place] [facility] [address] [facility] [address] [facility] CBC AND DIFF (AUTO) LYMPHOCYTES [#/VOLUME] IN BLOOD BY AUTOMATED COUNT 1.17 10*3/u L 1.00 - 3.20 05/15 Specimen Type: BLOOD No comment entered. Ordering Provider: JUVENTINO FRIEDMAN Report Released Date/Time: Apr 27, 2024 03:55 PM Reporting Lab: [facility] [place] [facility] [address] [facility] [address] Performing Lab: [facility] [place] [address] [address] [facility] [place] CBC AND DIFF (AUTO) EOSINOPHILS [#/VOLUME] IN BLOOD BY AUTOMATED COUNT 0.10 10*3/u L 0.03 - 0.44 05/15 Specimen Type: BLOOD No comment entered. Ordering Provider: JUVENTINO FRIEDMAN Report Released Date/Time: Apr 27, 2024 03:55 PM Reporting Lab: [facility] [place] [address] [address] Performing Lab: [facility] [place] [facility] [address] [facility] [address] [facility] CBC AND DIFF (AUTO) BASOPHILS [#/VOLUME] IN BLOOD BY AUTOMATED COUNT 0.04 10*3/u L 0.01 - 0.13 05/15 Specimen Type: BLOOD No comment entered. Ordering Provider: JUVENTINO FRIEDMAN Report Released Date/Time: Apr 27, 2024 03:55 PM Reporting Lab: [facility] [place] [address] [address] Performing Lab[facility] [place] [address] [address] [facility] CBC AND DIFF (AUTO) IMMATURE GRANULOCYTE S/100 LEUKOCYTES IN BLOOD BY AUTOMATED COUNT 0.7 0.0 - 0.7 05/15 Specimen Type: BLOOD No comment entered. Ordering Provider: JUVENTINO FRIEDMAN Report Released Date/Time: Apr 27, 2024 03:55 PM Reporting Lab: [facility] [address] [facility] [address] Performing Lab: [facility] [address] [facility] [address] [facility] CBC AND DIFF (AUTO) IMMATURE GRANULOCYTE S [#/VOLUME] IN BLOOD 0.10 10*3/u L 0.00 - 0.06 05/15 H Specimen Type: BLOOD No comment entered. Ordering Provider: JUVENTINO FRIEDMAN Report Released Date/Time: Apr 27, 2024 03:55 PM Reporting Lab: [facility] [address] [facility] [address] Performing Lab: [facility] [address] [facility] CBC AND DIFF (AUTO) NRBC % 0.0 0.0 - 0.0 05/15 Specimen Type: BLOOD No comment entered. Ordering Provider: JUVENTINO FRIEDMAN Report Released Date/Time: Apr 27, 2024 03:55 PM Reporting Lab: [facility] [address] [facility] [address] Performing Lab: [facility] [address] [address] [facility] CBC AND DIFF (AUTO) NRBC, ABS 0.00 10*3/u L 0.00 - 0.00 05/15 Specimen Type: BLOOD No comment entered. Ordering Provider: JUVENTINO FRIEDMAN Report Released Date/Time: Apr 27, 2024 03:55 PM Reporting Lab: [facility] [address] [facility] [address] Performing Lab: [facility] [address] [facility] [address] [facility] BNP (Natriure tic Peptide Brain) NATRIURETIC PEPTIDE B [MASS/VOLUM E] IN SERUM OR PLASMA 143 pg/mL 10 - 100 05/15 H Specimen Type: PLASMA No comment entered. Ordering Provider: JUVENTINO FRIEDMAN Report Released Date/Time: Apr 27, 2024 04:00 PM Reporting Lab: [facility] [address] [facility] [address] Performing Lab: [facility] [address] [facility] [address] [facility] CALCIUM CALCIUM [MASS/VOLUM E] IN SERUM OR PLASMA 8.8 mg/dL 8.5 - 10.2 05/15 Specimen Type: SERUM No comment entered. Ordering Provider: JUVENTINO FRIEDMAN Report Released Date/Time: Apr 28, 2024 02:23 PM Reporting Lab: [facility] [address] [facility] [address] Performing Lab: [facility] [address] [facility] [address] [facility] VITAMIN D (25-OH) 25-HYDROXYV ITAMIN D3 [MASS/VOLUM E] IN SERUM OR PLASMA 28 ng/mL 20 - 50 05/15 Specimen Type: SERUM No comment entered. Ordering Provider: JUVENTINO FRIEDMAN Report Released Date/Time: Apr 28, 2024 02:23 PM Reporting Lab: [facility] [address] [facility] [address] Performing Lab: [facility] [address] [facility] Vital Signs Combined list of inpatient and outpatient Vital Signs from Department of Defense and Veterans Affairs, ranging from 12 months to all on record, depending upon the facility. Vital Sign Value Date Comments Source SYSTOLIC BLOOD PRESSURE 106 06/11/2024 12:59:33 [facility] DIASTOLIC BLOOD PRESSURE 70 06/11/2024 12:59:33 [facility] PULSE OXIMETRY 98 06/11/2024 12:59:33 [facility] [place] [facility] PAIN 1 06/11/2024 12:59:33 [facility] [...] included; 2) Encounters from the Department of Defense facilities going backup to 280 months. Location Location Details Encounter Type Encounter Number Reason For Visit Attending Provider ADM Date DC Date Status Disposition Source [facility] En[facility] [id number] 08/18 [facility] En[facility] [id number] 11/15 [facility] Out[facility] Encounter [id number] 11/15 [facility] Encounter [id number] 1.11/20 [facility] [id number] 11/24 [facility] En[facility] [id number] 11/26 [facility] Encounter [id number] 12/03 [facility] En[facility] [id number] [facility] Encounter [id number] 12/04 [facility] Encounter [id number] 1.12/31 [facility] [id number] 1.01/06 [facility] [place] [facility] OFFICE O/P NEW MOD 45 MIN [id number] Diagnos is: ICD-10- CM I10 Essenti al (primar y) hyperte nsion STELEA,CAR MEN F 01/15 [place] [facility] HC PRO PHONE CALL 5-10 MIN [id number] Diagnos is: ICD-10- CM I50.9 Heart failure , unspeci fied CASTILLO-MILTON TINEO 01/20 [facility] En[facility] [id number] 01/27 [facility] En[facility] [id number] 01/27 [facility] Encounter [id number] ANNA TANNER 01/29 [facility] Encounter [id number] 01/29 [facility] Encounter [id number] 1.01/29 [facility] Encounter [id number] 1.01/29 [facility] [place] [facility] PRO PHONE CALL 5-10 MIN [id number] 1BY. [id number] Diagnos is: ICD-10- CM Z74.1 Need for assista nce with persona ITALO Whitman 01/29 [place] [facility] Out[facility] Encounter [id number] STELEA,CAR MEN F 02/03 [facility] [place] [facility] MTMS BY PHARM ADDL 15 MIN [id number] Diagnos is: ICD-10- CM I48.91 Unspeci fied atrial fibrill ation ELIANE CHUN ISJOSIAH J 02/05 [facility] Out[facility] Encounter [id number] 1.02/05 [facility] Encounter [id number] 1.02/12 [facility] [id number] [facility]counter [id number] 1[facility]02/20 [facility] Out[facility]counter [id number] [facility] Encounter [id number] [facility] Encounter [id number] [facility] OT EVAL LOW COMPLEX 30 MIN [id number] 1. 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 REJI PRICE 03/10 [facility] Outpatient Encounter [id number] 1.03/11 [facility] [place] [place] [facility] MTMS BY PHARM EST 15 MIN [id number] Diagnos is: ICD-10- CM Z51.81 Encount er for therape utic drug level monitor ELIANE Fuller 03/12 [facility] RN E&M PLAN SVS, 15 MIN [id number] Diagnos is: ICD-10- CM I50.9 Heart failure , unspeci fied CASTILLO-MILTON TINEO 03/13 [facility] En[facility] [id number] 1.03/13 [facility] [place] RN CARE EA 15 MIN HH/HOSPICE [id number] 1. Diagnos is: ICD-10- CM I50.9 Heart failure , unspeci fied CAROLS ALBERTO VIVAS MAXIMILIAN 03/13 [facility] Out[facility] En[facility] [id number] [facility] En[facility] [id number] 1.03/30 [facility] SELF CARE MNGMENT TRAINING [id number] 1. 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 CARLOS ALBERTO VIVAS MAXIMILIAN 04/03 [facility] QNHP OL DIG ASSMT&MGMT 21+ [id number] Diagnos is: ICD-10- CM Z79.899 Other halfway (curren t) drug therapy MIRI SAGE 04/06 [facility] En[facility] [id number] 04/07 [facility] Out[facility] Encounter [id number] 04/08 [facility] HHCP-SERV OF OT,EA 15 MIN [id number] Diagnos is: ICD-10- CM R26.9 Unspeci fied abnorma lities of gait and mobilit y VAZQUEZ,CAT HY L 04/16 [facility] CASE MANAGEMENT [id number] Diagnos is: ICD-10- CM 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.9 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 tanstephan NaikSHELLEY 04/17 [facility] En[facility] [id number] [facility] Out[facility] Encounter [id number] 04/20 [facility] Out[facility] Encounter [id number] [facility] Encounter [id number] 04/23 [facility] SYNCH AUDIO-ONLY NEW MOD 45 [id number] Diagnos is: ICD-10- CM 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 JENNIFER-GRA DY,JUVENTINO 04/23 [facility] Encounter [id number] 04/23 [facility] Out[facility] Encounter [id number] Diagnos is: ICD-10- CM 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 [id number] Diagnos is: ICD-10- CM Z04.89 Encount er for examina tion and observa tion for oth reasons MATTELIANE PRATHER ISJOSIAH J 05/18 [facility] SYNCH AUDIO-ONLY EST LOW 20 [id number] Diagnos is: ICD-10- CM N18.9 Chronic kidney disease , unspeci fied JENNIFER-JASPREET DY,JUVENTINO 05/18 [facility] Out[facility] Encounter [id number] 05/22 [facility] Out[facility] Encounter [id number] 05/25 [facility] CASE MANAGEMENT [id number] Diagnos is: ICD-10- CM 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 ROOPASETT E,SHELLEY 05/27 [facility] Outpatient Encounter [id number] 06/04 [facility] SELF CARE MNGMENT TRAINING [id number] Diagnos is: ICD-10- CM N18.9 Chronic kidney disease , unspeci fied ALLSOP,CARLOS ALBERTO MAXIMILIAN 06/11 [facility] Outpatient Encounter [id number] [facility] CASE MANAGEMENT [id number] Diagnos is: ICD-10- CM 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 ROOPASETT E,SHELLEY 06/24 [facility] NQHP OL DIG ASSMT&MGMT 21+ [id number] Diagnos is: ICD-10- CM Z79.899 Other terminal gauger (curren t) drug therapy MIRI SAGE 07/02 [facility] PH1 ASSMT&MGMT NQHP 5-10 [id number] Diagnos is: ICD-10- CM Z71.9 Administrative Processor ing, unspeci fied MORRISSETT E,SHELLEY 07/02 [facility] Outpatient Encounter [id number] 07/07 [facility] Out[facility] Encounter [id number] 07/10 [facility] Out[facility] Encounter [id number] 07/13 [facility] Out[facility] Encounter [id number] 07/13 [facility] Out[facility] Encounter [id number] 08/04 [facility] Out[facility] Encounter [id number] 08/06 [facility] PH1 ASSMT&MGMT NQHP -30 [id number] Diagnos is: ICD-10- CM N18.9 Chronic kidney disease , unspeci karlaed CARLOS ALBERTO VIVAS 08/20 [facility] [place] Social History Combined list of available smoking, tobacco, and other social history from Department of Defense and Veterans Affairs facilities. Social History Type Response Date Comment Sour e Tobacco smoking status [facility] VA-TOBACCO FORMER USER 024 [place] History of tobacco use [place]-TOBACCO QUIT 1 5 YRS OR MORE 01/16/2024 [place] Plan of Care List of future care activities from Department of Veterans Affairs facilities. Additional future care activities may be listed in the Assessment and Plan section. Date/Time Care Activity Care Activity Detail Facili ty 08/16/2024 Laboratory - Mine Promotor ry Order HEMOGLOBIN A1C PANEL BLOOD (LAV-BLOOD) SP [facility]
--- OUTSIDE RECORDS SUMMARY | 2024-08-24 13:45 | XMS_ITS | Encounter Summary ---
Author Organization [facility] Address [address] [place] [address] Care Team Providers Care Commercial Shrimping Captain Name Role Phone Melecio Ying MD Primary Care Provider [phone] Encounter Details Date Type Department Care Team (Late st Contact Info) Description 07/24/2024 Lab Requisition [facility] - Main Lab [address] [facility] [place] [address] Melecio Ying MD [address] [place] [phone] Acute respiratory failure with hypoxia (CMS/HCC V24, CMS/HCC V28); Other penitentiary (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 Social History Tobacco Use Types Packs/Day Years Used Date Smoking Tobacco: Never Assessed Sex and Gender Information Value Date Recorded Sex Assigned at Not on file Legal Sex Male 9:41 AM EDT Gender Identity Not on file Sexual Orientation Not on file documented as of this encounter Plan of Treatment Upcoming Encounters Date Type Department Care Team (Late st Contact Info) Description 08/26/2024 11:00 AM EDT Appointment [facility] [address] [phone] documented as of this encounter Procedures Procedure Name Priority Date/Time Associated Diagnosis Comments URINALYSIS WITH REFLEX MICROSCOPIC Routine 07/23/2024 2:30 PM EDT Acute respiratory failure with hypoxia 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 URINALYSIS WITH REFLEX MICROSCOPIC Routine 07/23/2024 2:30 PM EDT Acute respiratory failure with hypoxia Other penitentiary (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 CULTURE URINE Routine 07/23/2024 2:30 PM EDT Acute respiratory failure with hypoxia 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 documented in this encounter Results * (ABNORMAL) Urinalysis with reflex microscopic (07/23/2024 2:30 PM EDT) Specific [place] Urine 1.020 1.003 - 1.030 LAB URINALYSIS - AUTOMATED METHOD 07/24/2024 11:11 AM [facility] pH, Urine 5.5 5.0 - 8.0 pH LAB URINALYSIS - AUTOMATED METHOD 07/24/2024 11:11 AM [facility] Leukocytes, Urine Large(A) Negative LAB URINALYSIS - AUTOMATED METHOD 07/24/2024 11:11 AM [facility] Nitrite, Urine Negative Negative LAB URINALYSIS - AUTOMATED METHOD 07/24/2024 11:11 AM [facility] Protein, Urine 300(A) <=Trace mg/dL LAB URINALYSIS - AUTOMATED METHOD 07/24/2024 11:11 AM [facility] Glucose, Urine Negative Negative mg/dL LAB URINALYSIS - AUTOMATED METHOD 07/24/2024 11:11 AM [facility] Ketones, Urine Trace(A) Negative mg/dL LAB URINALYSIS - AUTOMATED METHOD 07/24/2024 11:11 AM [facility] Urobilinogen , Urine 1.0 0.2 - 1.0 mg/dL LAB URINALYSIS - AUTOMATED METHOD 07/24/2024 11:11 AM [facility] Bilirubin, Urine Negative Negative LAB URINALYSIS - AUTOMATED METHOD 07/24/2024 11:11 AM [facility] Blood, Urine Large(A) Negative LAB URINALYSIS - AUTOMATED METHOD 07/24/2024 11:11 AM [facility] RBC, Urine 20.0(H) 0 - 4 /HPF LAB URINALYSIS - AUTOMATED METHOD 07/24/2024 11:11 AM EDT [facility] WBC, Urine 3,506.1(H) 0 - 4 /HPF LAB URINALYSIS - AUTOMATED METHOD 07/24/2024 11:11 AM [facility] Squamous Epithelial, Urine 65(H) 0 - 60 /LPF LAB URINALYSIS - AUTOMATED METHOD 07/24/2024 11:11 AM EDT [facility] Bacteria, Urine Negative Negative /HPF LAB URINALYSIS - AUTOMATED METHOD 07/24/2024 11:11 AM T [facility] Hyaline Casts, Urine 24.3(H) 0 - 3 /LPF LAB URINALYSIS - AUTOMATED METHOD 07/24/2024 11:11 AM [facility] Yeast, Urine Present(A) None /HPF LAB URINALYSIS - AUTOMATED METHOD 07/24/2024 11:11 AM [facility] Urine Urine specimen obtained by clean catch procedure / Unknown Non-blood Collection / Unknown 07/23/2024 2:30 PM EDT 07/24/2024 9:42 AM EDT us Melecio Ying MD LAB URINE ORDERABLES Final Resu lt [facility] [address] [place] [address], * (ABNORMAL) Culture urine (07/23/2024 2:30 PM EDT) Culture, Urine >100,000 CFU/mL Aminta albicans/du bliniensis( A) 07/28/2024 9:54 AM EDT [facility] Comment: Edited result: Previously reported as Yeast on 07/25/2024 at 1022 EDT. Urine Urine specimen obtained by clean catch procedure / Unknown Non-blood Collection / Unknown 07/23/2024 2:30 PM EDT 07/24/2024 9:42 AM EDT Melecio Ying MD LAB MICROBIOLOGY - [facility] Final Result 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
--- OUTSIDE RECORDS SUMMARY | 2024-08-24 13:45 | XMS_ITS | Encounter Summary ---
Author Organization [facility] Address [address] [place] [address] Care Team Providers Care Instrument Sterilizer Name Role Phone Melecio Ying MD Primary Care Provider [phone] Encounter Details Date Type Department Care Team (Late st Contact Info) Description 08/14/[address] [facility] - Main Lab [address] [facility] [place] [phone] Melecio Ying MD [address] [place] [phone] Acute kidney failure with tubular necrosis (CMS/HCC V24) Social History Tobacco Use Types Packs/Day Years [...] Info) Description 08/26/2024 11:00 AM EDT Appointment [facility] [address] [phone] documented as of this encounter Procedures Procedure Name Priority Date/Time Associated Diagnosis Comments COMPLETE BLOOD COUNT Routine 08/17/2024 5:16 AM EDT Acute kidney failure with tubular necrosis (CMS/HCC V24) COMPREHENSIVE METABOLIC PANEL Routine 08/17/2024 5:16 AM EDT Acute kidney failure with tubular necrosis (CMS/HCC V24) documented in this encounter Results * (ABNORMAL) Comprehensive metabolic panel (08/17/2024 5:16 AM EDT) Sodium 134 133 - 145 mmol/L LAB CHEMISTRY METHOD 08/17/2024 12:46 PM [facility] Potassium 4.7 3.5 - 5.5 mmol/L LAB CHEMISTRY METHOD 08/17/2024 12:46 PM [facility] Chloride 103 96 - 110 mmol/L LAB CHEMISTRY METHOD 08/17/2024 12:46 PM [facility] CO2 23 21 - 32 mmol/L LAB CHEMISTRY METHOD 08/17/2024 12:46 PM [facility] Anion Gap 8 3 - 11 LAB CHEMISTRY METHOD 08/17/2024 12:46 PM [facility] Glucose 123(H) 70 - 100 mg/dL LAB CHEMISTRY METHOD 08/17/2024 12:46 PM [facility] BUN 19 5 - 25 mg/dL LAB CHEMISTRY METHOD 08/17/2024 12:46 PM [facility] Creatinine 1.24 0.70 - 1.30 mg/dL LAB CHEMISTRY METHOD 08/17/2024 12:46 PM [facility] eGFR 56(L) >=60 mL/min/1. 73m2 LAB CHEMISTRY METHOD 08/17/2024 12:46 PM [facility] Comment:Calculation based on the??Chronic Kidney Disease Epidemiology Collaboration (CKD-EPI) equation refit??without adjustment for race. BUN/Creatinine Ratio 15.3 LAB CHEMISTRY METHOD 08/17/2024 12:46 PM [facility] Calcium 8.7 8.5 - 10.5 mg/dL LAB CHEMISTRY METHOD 08/17/2024 12:46 PM [facility] AST (SGOT) 9(L) 10 - 42 unit/L LAB CHEMISTRY METHOD [facility]24 [facility] ALT ([facility] 12 10 - 60 unit/L LAB CHEMISTRY METHOD 08/17/2024 12:46 PM EDT [facility] Alkaline Phosphatase 101 42 - 121 unit/L LAB CHEMISTRY METHOD 08/17/2024 12:46 PM [facility] Total Protein 6.8 6.0 - 8.0 g/dL LAB CHEMISTRY METHOD 08/17/2024 12:46 PM [facility] Albumin 2.5(L) 3.2 - 5.0 g/dL LAB CHEMISTRY METHOD 08/17/2024 12:46 PM [facility] Total Bilirubin 0.5 0.0 - 1.4 mg/dL LAB CHEMISTRY METHOD 08/17/2024 12:46 PM [facility] Blood Venous blood specimen / Unknown Venipuncture / Unknown 08/17/2024 5:16 AM EDT 08/17/2024 10:04 AM EDT us Melecio Ying MD LAB BLOOD ORDERABLES Final Resu lt [facility] [address] [place] [address], [place] [phone] * (ABNORMAL) Complete blood count (08/17/2024 5:16 AM EDT) WBC 9.6 4.8 - 10.8 K/mcL LAB HEMETOLOGY METHOD 08/17/2024 11:44 AM EDT [facility] RBC 2.70(L) 4.50 - 5.50 M/[facility] LAB HEMETOLOGY METHOD 08/17/2024 11:44 AM EDT [facility] Hemoglobin 7.7(L) 13.5 - 17.5 g/dL LAB HEMETOLOGY METHOD 08/17/2024 11:44 AM EDT [facility] Hematocrit 25.4(L) 42.0 - 54.0 % LAB HEMETOLOGY METHOD 08/17/2024 11:44 AM EDT [facility] MCV 95.1 79.0 - 98.0 FL LAB HEMETOLOGY METHOD 08/17/2024 11:44 AM EDT [facility] MCH 28.8 27.0 - 32.0 pcg LAB HEMETOLOGY METHOD 08/17/2024 11:44 AM EDT [facility] MCHC 30.3(L) 32.0 - 37.0 g/dL LAB HEMETOLOGY METHOD 08/17/2024 11:44 AM EDT [facility] RDW 15.8(H) 11.0 - 15.0 % LAB HEMETOLOGY METHOD 08/17/2024 11:44 AM [facility] Platelets 506(H) 130 - 400 K/mcL LAB HEMETOLOGY METHOD 08/17/2024 11:44 AM EDT [facility] MPV 9.2 7.0 - 11.0 FL LAB HEMETOLOGY METHOD 08/17/2024 11:44 AM EDT [facility] NRBC 0.0 <1.0 % LAB HEMETOLOGY METHOD 08/17/2024 11:44 AM [facility] NRBC Absolute 0.00 <0.10 K/mcL LAB HEMETOLOGY METHOD 08/17/2024 11:44 AM T [facility] Blood Venous blood specimen / Unknown Venipuncture / Unknown 08/17/2024 5:16 AM EDT 08/17/2024 10:04 AM EDT us Melecio Ying MD LAB BLOOD ORDERABLES Final Resu lt [facility] [address] [place] [address], [place] [phone] documented in this encounter Visit Diagnoses Diagnosis Acute kidney failure with tubular necrosis (CMS/HCC V24) documented in this encounter Care Teams Instrument Sterilizer Relationship Specialty Start Date End Date Melecio Ying MD [address] [place] [phone] PCP - General Internal Medicine 07/15/24 documented as of this encounter
--- OUTSIDE RECORDS SUMMARY | 2024-08-24 13:45 | XMS_ITS ---
Author Name [facility] Organization [facility] Address [address] [place] [address] Care Team Providers Care Ruling Machine Set Up Operator Name Role Phone JUVENTINO MARTIN Primary Care Provider Unav ailable PIEDAD, SHELLEY Unavailable Unavailable YESSENIA ARNOLD, ALAN Unavailable Unavailable DIANE SANTOS Unavailable Unavailable CHAPUT, ARASELI Unavailable Unavailable FEINIKKY, WOODY Unavailable Unavailable LISA VIVAS Unavailable Unavailable BHARATI VEGA Unavailable Unavailable MILDRED VAZQUEZ Unavailable Unavailable MIRI SAGE Unavailable Unavailable [...] PART A Apr 22, 2001 PART A [id number] JENIFER ANAYA PATIENT MEDICARE (WNR) MEDICARE (M) PART B Apr 22, 2001 PART B [id number] JENIFER ANAYA PATIENT [employer] PLAN F May 11, 2008 PLANF [id number] JENIFER ANAYA PATIENT Selected Encounter This section includes the information on record at [place] for the Encounter. Date/Time Encounter Type Encounter Description Reason Provider Source August 20, 2024 11:16 AM PH1 ASSMT&MGMT NQHP 21-30 TELEPHONE [facility] ICD-10-CM N18.9 Chronic kidney disease, unspecified ALLSOP,LISA E Encounter Template Text not used by [facility] Assessments - Encounter Diagnoses This section includes the primary and secondary diagnoses documented for the Encounter. 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 ALLSOPMARIXALISA [place] [facility] [place] [facility] August 20, 2024 11:16 AM SECONDARY Benign prostatic hyperplasia with lower urinary tract symp ALLSOP,LISA [place] [facility] [place] [facility] August 20, 2024 11:16 AM SECONDARY Essential (primary) hypertension ALLSOP,LISA [place] [facility] [place] [facility] August 20, 2024 11:16 AM SECONDARY Heart failure, unspecified [facility]OP[facility] [place] [facility] August 20, 2024 11:16 AM SECONDARY assisted (current) use of anticoagulants ALLSOP,LISA [place] [facility] [place] [facility] August 20, 2024 11:16 AM SECONDARY Type 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 The data comes from all [facility] facilities. Test Date/Time Test Type Test Details Facility Name Aug 16, 2024 12:00 AM Laboratory - Chemistry Order HEMOGLOBIN A1C PANEL BLOOD (LAV-BLOOD) [facility] Aug 16, 2024 12:00 AM Laboratory - Chemistry Order BASIC METABOLIC PANEL (non-fasting) BLOOD (SST-SERUM) [facility] Aug 16, 2024 12:00 AM Laboratory - Chemistry Order CBC AND DIFF (AUTO) BLOOD (LAV-BLOOD) [facility] Aug 16, 2024 12:00 AM Laboratory - Chemistry Order MICROALBUMIN CREATININE RATIO PANEL URINE (RANDOM) [facility] Encounter Notes: All associated encounter notes This section contains the clinical notes associated to the Encounter. Date/Time Encounter Note(s) Provider Source August 20, 2024 12:19 PM ADDENDUM: LOCAL TITLE: Addendum STANDARD TITLE: ADDENDUM DATE OF NOTE: AUGUST 20, 2024@12:19:38 ENTRY DATE: AUGUST 20, 2024@12:19:39 AUTHOR: LISA VIVAS EXP COSIGNER: URGENCY: STATUS: COMPLETED d/cd from [facility] on 08/19/24. PCP to make post hosp f/u on 08/24/24. Belvue's info added back in [facility] as he was previously administratively d/cd. [facility] RN will schedule visit for [facility] administrative re- assessment. update to team /michell/ LISA VIVAS RN, BSN [facility] HANDCREW FOREMAN Signed: 08/20/2024 12:22 Receipt Acknowledged By: 08/20/2024 12:45 /es/ WOODY PHIPPS [facility] MINERAL TECHNOLOGIST 08/20/2024 14:29 /es/ DIEGO BROWN [facility] Social Insurance Specialist 08/20/2024 15:47 /es/ Mildred Vazquez [facility] Occupational Therapist 08/24/2024 08:53 /es/ DIANE SANTOS STAFF DIETITIAN 08/21/2024 08:23 /es/ SAMMIE CARDONA RD, LDN REGISTERED DIETITIAN --- Original Document --- 08/20/24 [facility] TELEPHONE NOTE: Duration of call: 30min Call placed to Melani ([phone]), SANAM IRBY from [facility]; d/cd home 08/19/24. Reviewed that there are noted to be multiple med changes. Provided med list from [facility] has incorrect indications for use for a couple of meds which was causing some confusion. We reviewed all the changes as D/C provider wrote a very detailed d/c summary with ongoing plan including all med changes. eMlani will be visiting today and will call with any questions or concerns. The below information was reviewed w/ FREDERICKA nurse: *Dr Lea Urology f/u 08/25 at 1130 *Saw Urology on 08/10 for SPT change *'Transfusion' scheduled for Hgb ~7.7 on 08/26. Family notified to give Vit C and Iron OTC twice daily upon d/c home. *Eliquis lowered to 2.5mg po BID per d/c papers although was already taking 2.5mg BID prior to hospital admission--'decreased' due to hematuria. Family instructed to HOLD Eliquis when hematuria is noted. *The following meds were discontinued or Held due to LEFTY, hypotension and/or hypoglycemia per d/c papers: HOLD Spironolactone HOLD Lasix d/c finasteride d/c Flomax d/c Vesicare d/c metformin *Start daily weights (d/c weight 159.8 lbs) and update PCP for s/s fluid overload for which diuretics, etc may need to be restarted accordingly. Will provide scale and BP cuff as needed ([facility] nurse will notify [facility] if needed) *Monitor blood glucose levels 1-2x/day and as needed for symptoms and update PCP for s/s hyper/hypoglycemia *Medications added: glipizide 2.5mg po BID Remeron 7.5mg po HS for FTT Midodrine 2.5mg po BID added secondary to systolic BP consistently 90-100 * was provided short supply, approx 7-30 days (depending on the med) of new medications from [facility] at d/c *VNA to provide wound care as ordered Updated VNA RN that [facility] PCP will make post hosp f/u on 08/24/24 See d/c summary as part of full d/c record from [facility]. [facility] med list has NOT yet been updated until full med reconciliation can be completed after VNA nurse visit today and provider post hosp f/u visit on 08/24. /michell/ LISA VIVAS RN, BSN [facility] HANDCREW FOREMAN Signed: 08/20/2024 12:12 Receipt Acknowledged By: 08/20/2024 12:46 /michell/ MIRI SAGE [facility] Clinical Pharmacist Practitioner 08/21/2024 09:19 /es/ JUVENTINO MARTIN RN,MSN,LAUNDERER HAND-C [facility] NURSE PRACTITIONER 08/21/2024 12:46 /es/ MD SANGEETHA Milan JAIMIE [place] [facility] [place] [facility] August 20, 2024 11:17 AM HB NOTE: LOCAL TITLE: HB TELEPHONE NOTE STANDARD TITLE: HB NOTE DATE OF NOTE: AUGUST 20, 2024@11:17 ENTRY DATE: AUGUST 20, 2024@11:17:37 AUTHOR: LISA VIVAS EXP COSIGNER: URGENCY: STATUS: COMPLETED [facility] TELEPHONE NOTE Has ADDENDA Duration of call: 30min Call placed to Melani ([phone]), SANAM IRBY from [facility]; d/cd home 08/19/24. Reviewed that there are noted to be multiple med changes. Provided med list from [facility] has incorrect indications for use for a couple of meds which was causing some confusion. We reviewed all the changes as D/C provider wrote a very detailed d/c summary with ongoing plan including all med changes. Melani will be visiting today and will call with any questions or concerns. The below information was reviewed w/ VNA nurse: *Dr Lea Urology f/u 08/25 at 1130 *Saw Urology on 08/10 for SPT change *'Transfusion' scheduled for Hgb ~7.7 on 08/26. Family notified to give Vit C and Iron OTC twice daily upon d/c home. *Eliquis lowered to 2.5mg po BID per d/c papers although was already taking 2.5mg BID prior to hospital admission--'decreased' due to hematuria. Family instructed to HOLD Eliquis when hematuria is noted. *The following meds were discontinued or Held due to LEFTY, hypotension and/or hypoglycemia per d/c papers: HOLD Spironolactone HOLD Lasix d/c finasteride d/c Flomax d/c Vesicare d/c metformin *Start daily weights (d/c weight 159.8 lbs) and update PCP for s/s fluid overload for which diuretics, etc may need to be restarted accordingly. Will provide scale and BP cuff as needed ([facility] nurse will notify [facility] if needed) *Monitor blood glucose levels 1-2x/day and as needed for symptoms and update PCP for s/s hyper/hypoglycemia *Medications added: glipizide 2.5mg po BID Remeron 7.5mg po HS for FTT Midodrine 2.5mg po BID added secondary to systolic BP consistently 90-100 * was provided short supply, approx 7-30 days (depending on the med) of new medications from [facility] at d/c *VNA to provide wound care as ordered Updated VNA RN that [facility] PCP will make post hosp f/u on 08/24/24 See d/c summary as part of full d/c record from [facility]. [place] med list has NOT yet been updated until full med reconciliation can be completed after VNA nurse visit today and provider post hosp f/u visit on 08/24. /michell/ LISA VIVAS RN, BSN [facility] HANDCREW FOREMAN Signed: 08/20/2024 12:12 Receipt Acknowledged By: 08/20/2024 12:46 /es/ MIRI SAGE [facility] Clinical Pharmacist Practitioner 08/21/2024 09:19 /es/ JUVENTINO MARTIN RN,MSN,LAUNDERER HAND-C [facility] NURSE PRACTITIONER 08/21/2024 12:46 /es/ ALAN Mullen MD 08/20/2024 ADDENDUM STATUS: COMPLETED d/cd from [facility] on 08/19/24. PCP to make post hosp f/u on 08/24/24. [place]'s info added back in [facility] as he was previously administratively d/cd. [facility] RN will schedule visit for [facility] administrative re- assessment. update to team /es/ LISA VIVAS RN, BSN [facility] HANDCREW FOREMAN Signed: 08/20/2024 12:22 Receipt Acknowledged By: 08/20/2024 12:45 /es/ WOODY PHIPPS [facility] MINERAL TECHNOLOGIST 08/20/2024 14:29 /es/ SHELLEY [facility] Social Insurance Specialist 08/20/2024 15:47 /es/ Mildred Vazquez [facility] Occupational Therapist * AWAITING SIGNATURE * DIANE SANTOS 08/21/2024 08:23 /es/ SAMMIE CARDONA, RD, LDN REGISTERED DIETITIAN LISA VIVASREliza [facility]
--- OUTSIDE RECORDS SUMMARY | 2024-08-24 13:45 | XMS_ITS | Encounter Summary ---
Author Organization [facility] Address [address] [place] [address] Care Team Providers Care Advertising Production Manager Name Role Phone Melecio Ying MD Primary Care Provider [phone] Encounter Details Date Type Department Care Team (Late st Contact Info) Description 08/01/2024 Lab Requisition [facility] - Main Lab 299 [facility] [place] [phone] Melecio Ying MD [address] [place] [phone] Acute kidney failure with tubular necrosis (CMS/HCC [...] Info) Description 08/26/2024 11:00 AM EDT Appointment [facility] [address] [phone] documented as of this encounter Procedures Procedure Name Priority Date/Time Associated Diagnosis Comments COMPLETE BLOOD COUNT Routine 08/03/2024 5:23 AM EDT Acute kidney failure with tubular necrosis (CMS/HCC V24) COMPREHENSIVE METABOLIC PANEL Routine 08/03/2024 5:23 AM EDT Acute kidney failure with tubular necrosis (CMS/HCC V24) documented in this encounter Results * (ABNORMAL) Comprehensive metabolic panel (08/03/2024 5:23 AM EDT) Sodium 133 133 - 145 mmol/L LAB CHEMISTRY METHOD 08/03/2024 11:18 AM [facility] Potassium 5.0 3.5 - 5.5 mmol/L LAB CHEMISTRY METHOD 08/03/2024 11:18 AM [facility] Chloride 102 96 - 110 mmol/L LAB CHEMISTRY METHOD 08/03/2024 11:18 AM [facility] CO2 23 21 - 32 mmol/L LAB CHEMISTRY METHOD 08/03/2024 11:18 AM [facility] Anion Gap 8 3 - 11 LAB CHEMISTRY METHOD 08/03/2024 11:18 AM [facility] Glucose 112(H) 70 - 100 mg/dL LAB CHEMISTRY METHOD 08/03/2024 11:18 AM [facility] BUN 22 5 - 25 mg/dL LAB CHEMISTRY METHOD 08/03/2024 11:18 AM [facility] Creatinine 1.46(H) 0.70 - 1.30 mg/dL LAB CHEMISTRY METHOD 08/03/2024 11:18 AM [facility] eGFR 46(L) >=60 mL/min/1. 73m2 LAB CHEMISTRY METHOD 08/03/2024 11:18 AM [facility] Comment:Calculation based on the??Chronic Kidney Disease Epidemiology Collaboration (CKD-EPI) equation refit??without adjustment for race. BUN/Creatinine Ratio 15.1 LAB CHEMISTRY METHOD 08/03/2024 11:18 AM [facility] Calcium 8.6 8.5 - 10.5 mg/dL LAB CHEMISTRY METHOD 08/03/2024 11:18 AM [facility] AST (SGOT) 21 10 - 42 unit/L LAB CHEMISTRY METHOD [facility] ALT (SGPT) 26 10 - 60 unit/L LAB CHEMISTRY METHOD 08/03/2024 11:18 AM [facility] Alkaline Phosphatase 93 42 - 121 unit/L LAB CHEMISTRY METHOD 08/03/2024 11:18 AM [facility] Total Protein 6.8 6.0 - 8.0 g/dL LAB CHEMISTRY METHOD 08/03/2024 11:18 AM [facility] Albumin 2.4(L) 3.2 - 5.0 g/dL LAB CHEMISTRY METHOD 08/03/2024 11:18 AM [facility] Total Bilirubin 0.4 0.0 - 1.4 mg/dL LAB CHEMISTRY METHOD 08/03/2024 11:18 AM [facility] Blood Venous blood specimen / Unknown Venipuncture / Unknown 08/03/2024 5:23 AM EDT 08/03/2024 10:19 AM EDT us Melecio Ying MD LAB BLOOD ORDERABLES Final Resu lt [facility] [address] [place] [address], [place] [phone] * (ABNORMAL) Complete blood count (08/03/2024 5:23 AM EDT) WBC 10.2 4.8 - 10.8 K/mcL LAB HEMETOLOGY METHOD 08/03/2024 10:39 AM EDT [facility] RBC 2.70(L) 4.50 - 5.50 M/[facility] LAB HEMETOLOGY METHOD 08/03/2024 10:39 AM EDT [facility] Hemoglobin 8.0(L) 13.5 - 17.5 g/dL LAB HEMETOLOGY METHOD 08/03/2024 10:39 AM EDT [facility] Hematocrit 25.6(L) 42.0 - 54.0 % LAB HEMETOLOGY METHOD 08/03/2024 10:39 AM EDT [facility] MCV 93.4 79.0 - 98.0 FL LAB HEMETOLOGY METHOD 08/03/2024 10:39 AM EDT [facility] MCH 29.2 27.0 - 32.0 pcg LAB HEMETOLOGY METHOD 08/03/2024 10:39 AM EDT [facility] MCHC 31.3(L) 32.0 - 37.0 g/dL LAB HEMETOLOGY METHOD 08/03/2024 10:39 AM EDT [facility] RDW 14.7 11.0 - 15.0 % LAB HEMETOLOGY METHOD 08/03/2024 10:39 [facility] Platelets 503(H) 130 - 400 K/mcL LAB HEMETOLOGY METHOD 08/03/2024 10:39 AM EDT [facility] MPV 9.5 7.0 - 11.0 FL LAB HEMETOLOGY METHOD 08/03/2024 10:39 AM EDT [facility] NRBC 0.0 <1.0 % LAB HEMETOLOGY METHOD 08/03/2024 10:39 AM EDT [facility] NRBC Absolute 0.00 <0.10 K/mcL LAB HEMETOLOGY METHOD 08/03/2024 10:39 AM EDT [facility] Blood Venous blood specimen / Unknown Venipuncture / Unknown 08/03/2024 5:23 AM EDT 08/03/2024 10:19 AM EDT us Melecio Ying MD LAB BLOOD ORDERABLES Final Resu lt [facility] [address] [place] [address], documented in this encounter Visit Diagnoses Diagnosis Acute kidney failure with tubular necrosis (CMS/HCC V24) documented in this encounter Care Teams Advertising Production Manager Relationship Specialty Start Date End Date Melecio Ying MD [address] [place] [phone] PCP - General Internal Medicine 07/15/24 documented as of this encounter
--- OUTSIDE RECORDS SUMMARY | 2024-08-24 13:45 | XMS_ITS | Encounter Summary ---
Author Organization [facility] Address [address] [place] [address] Care Team Providers Care Mechanical Engineering Officer Name Role Phone Melecio Ying MD Primary Care Provider [phone] Encounter Details Date Type Department Care Team (Late st Contact Info) Description 07/24/2024 Lab Requisition [facility] - Main Lab 299 [facility] [place] [address] Melecio Ying MD [address] [place] [phone] Acute respiratory failure with hypoxia (CMS/HCC V24, CMS/HCC V28); Other longitudinal float operator (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 Social History Tobacco Use [...] Info) Description 08/26/2024 11:00 AM EDT Appointment [facility] [address] [phone] documented as of this encounter Procedures Procedure Name Priority Date/Time Associated Diagnosis Comments THYROID STIMULATING HORMONE WITH REFLEX TO FREE T4 AND FREE T3 Routine 07/24/2024 5:49 AM EDT Acute respiratory failure with hypoxia Other retirement (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 LIPID PANEL WITH REFLEX TO DIRECT LDL Routine 07/24/2024 5:49 AM EDT Acute respiratory failure with hypoxia Other longitudinal float operator (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 COMPLETE BLOOD COUNT Routine 07/24/2024 5:49 AM EDT Acute respiratory failure with hypoxia Other longitudinal float operator (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 MAGNESIUM Routine 07/24/2024 5:49 AM EDT Acute respiratory failure with hypoxia Other retirement (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 HEMOGLOBIN A1C Routine 07/24/2024 5:49 AM EDT Acute respiratory failure with hypoxia Other retirement (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 CREATINE KINASE Routine 07/24/2024 5:49 AM EDT Acute respiratory failure with hypoxia Other longitudinal float operator (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 documented in this encounter Results * Creatine kinase (07/24/2024 5:49 AM EDT) Pathologist [facility] Total CK 31 22 - 269 unit/L LAB CHEMISTRY METHOD 07/24/2024 11:11 AM EDT [facility] Blood Venous blood specimen / Unknown Venipuncture / Unknown 07/24/2024 5:49 AM EDT 07/24/2024 9:34 AM EDT us Melecio Ying MD LAB BLOOD ORDERABLES Final Resu lt [facility] [address] [place] [address], [place] [phone] * (ABNORMAL) Lipid panel with reflex to direct LDL (07/24/2024 5:49 AM EDT) Pathologist [facility] Cholesterol 83 0 - 200 mg/dL LAB CHEMISTRY METHOD 07/24/2024 11:13 AM EDT [facility] Triglycerides 89 0 - 150 mg/dL LAB CHEMISTRY METHOD 07/24/2024 11:13 AM EDT [facility] HDL 30(L) >=40 mg/dL LAB CHEMISTRY METHOD 07/24/2024 11:13 AM EDT [facility] LDL Calculated 35 0 - 100 mg/dL LAB CHEMISTRY METHOD 07/24/2024 11:13 AM EDT [facility] VLDL Cholesterol Juan 17.8 mg/dL LAB CHEMISTRY METHOD 07/24/2024 11:13 AM EDT [facility] Non HDL Chol. (LDL+VLDL) 53 <145 mg/dL LAB CHEMISTRY METHOD 07/24/2024 11:13 AM EDT [facility] Chol/HDL Ratio 2.8 0.0 - 4.4 LAB CHEMISTRY METHOD 07/24/2024 11:13 AM EDT [facility] Blood Venous blood specimen / Unknown Venipuncture / Unknown 07/24/2024 5:49 AM EDT 07/24/2024 9:34 AM EDT us Melecio Ying MD LAB BLOOD ORDERABLES Final Resu lt Performing Organization Address City/[facility]/ZIP Co de Phone Number [facility] [address] [place] [address], [place] [phone] * Magnesium (07/24/2024 5:49 AM EDT) Magnesium 1.9 1.9 - 2.6 mg/dL LAB CHEMISTRY METHOD 07/24/2024 11:11 AM EDT [facility] Blood Venous blood specimen / Unknown Venipuncture / Unknown 07/24/2024 5:49 AM EDT 07/24/2024 9:34 AM EDT us Melecio Ying MD LAB BLOOD ORDERABLES Final Resu lt [facility] [address] [place] [address], [place] [phone] * Thyroid stimulating hormone with reflex to free t4 and free t3 (07/24/2024 5:49 AM EDT) TSH 0.50 0.40 - 4.00 mcIU/mL LAB CHEMISTRY METHOD 07/24/2024 11:54 AM EDT [facility] Blood Venous blood specimen / Unknown Venipuncture / Unknown 07/24/2024 5:49 AM EDT 07/24/2024 9:34 AM EDT us Melecio Ying MD LAB BLOOD ORDERABLES Final Resu lt Performing Organization Address [facility]/ZIP Wy de Phone Number [facility] [address] [place] [address], * (ABNORMAL) Hemoglobin A1c (07/24/2024 5:49 AM EDT) [facility] Hemoglobin A1C 7.6(H) <6.5 % LAB CHEMISTRY METHOD 07/24/2024 12:12 PM EDT [facility] Mean Bld Glu Estim. 171 mg/dL LAB CHEMISTRY METHOD 07/24/2024 12:12 PM EDT [facility] Blood Venous blood specimen / Unknown Venipuncture / Unknown 07/24/2024 5:49 AM EDT 07/24/2024 9:34 AM EDT us Melecio Ying MD LAB BLOOD ORDERABLES Final Resu lt Performing Organization Address City/[facility]/ZIP Co de Phone Number [facility] [address] [place] [address], [place] [phone] * (ABNORMAL) Complete blood count (07/24/2024 5:49 AM EDT) Pathologist [facility] WBC 11.8(H) 4.8 - 10.8 K/Health system LAB HEMETOLOGY METHOD 07/24/2024 10:30 AM EDT [facility] RBC 2.70(L) 4.50 - 5.50 M/Health system LAB HEMETOLOGY METHOD 07/24/2024 10:30 AM [facility] Hemoglobin 8.1(L) 13.5 - 17.5 g/dL LAB HEMETOLOGY METHOD 07/24/2024 10:30 AM [facility] Hematocrit 24.5(L) 42.0 - 54.0 % LAB HEMETOLOGY METHOD 07/24/2024 10:30 AM [facility] MCV 90.1 79.0 - 98.0 FL LAB HEMETOLOGY METHOD 07/24/2024 10:30 AM [facility] MCH 29.8 27.0 - 32.0 pcg LAB HEMETOLOGY METHOD 07/24/2024 10:30 AM [facility] MCHC 33.1 32.0 - 37.0 g/dL LAB HEMETOLOGY METHOD 07/24/2024 10:30 AM [facility] RDW 14.0 11.0 - 15.0 % LAB HEMETOLOGY METHOD 07/24/2024 10:30 AM [facility] Platelets 409(H) 130 - 400 K/mcL LAB HEMETOLOGY METHOD 07/24/2024 10:30 AM [facility] MPV 9.4 7.0 - 11.0 FL LAB HEMETOLOGY METHOD 07/24/2024 10:30 AM [facility] NRBC 0.0 <1.0 % LAB HEMETOLOGY METHOD 07/24/2024 10:30 AM [facility] NRBC Absolute 0.00 <0.10 K/mcL LAB HEMETOLOGY METHOD 07/24/2024 10:30 AM [facility] Blood Venous blood specimen / Unknown Venipuncture / Unknown 07/24/2024 5:49 AM EDT 07/24/2024 9:34 AM EDT Melecio Ying MD LAB BLOOD ORDERABLES Final Resu lt [facility] [address] [place] [address], documented in this encounter Visit Diagnoses Diagnosis Acute respiratory failure with hypoxia (CMS/HCC V24, CMS/HCC V28) 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
--- OUTSIDE RECORDS SUMMARY | 2024-08-24 13:45 | XMS_ITS | Encounter Summary ---
Author Organization [facility] Address [address] [place] [address] Care Team Providers Care Electrical Manager Name Role Phone Melecio Ying MD Primary Care Provider [phone] Encounter Details Date Type Department Care Team (Late st Contact Info) Description 08/05/2024 Lab Requisition [facility] - Main Lab 299 [facility] [place] [place] [phone] Melecio Ying MD [address] [place] [phone] Acute kidney failure with tubular necrosis (CMS/HCC [...] Info) Description 08/26/2024 11:00 AM EDT Appointment [facility] [address] [phone] documented as of this encounter Procedures Procedure Name Priority Date/Time Associated Diagnosis Comments COMPLETE BLOOD COUNT Routine 08/06/2024 5:52 AM EDT Acute kidney failure with tubular necrosis (CMS/HCC V24) BASIC METABOLIC PANEL Routine 08/06/2024 5:52 AM EDT Acute kidney failure with tubular necrosis (CMS/HCC V24) documented in this encounter Results * (ABNORMAL) Basic metabolic panel (08/06/2024 5:52 AM EDT) Sodium 133 133 - 145 mmol/L LAB CHEMISTRY METHOD 08/06/2024 7:18 AM [facility] Potassium 4.4 3.5 - 5.5 mmol/L LAB CHEMISTRY METHOD 08/06/2024 7:18 AM [facility] Chloride 104 96 - 110 mmol/L LAB CHEMISTRY METHOD 08/06/2024 7:18 AM [facility] CO2 23 21 - 32 mmol/L LAB CHEMISTRY METHOD 08/06/2024 7:18 AM [facility] Anion Gap 6 3 - 11 LAB CHEMISTRY METHOD 08/06/2024 7:18 AM [facility] Glucose 107(H) 70 - 100 mg/dL LAB CHEMISTRY METHOD 08/06/2024 7:18 AM [facility] BUN 22 5 - 25 mg/dL LAB CHEMISTRY METHOD 08/06/2024 7:18 AM [facility] Creatinine 1.37(H) 0.70 - 1.30 mg/dL LAB CHEMISTRY METHOD 08/06/2024 7:18 AM [facility] eGFR 50(L) >=60 mL/min/1. 73m2 LAB CHEMISTRY METHOD 08/06/2024 7:18 AM [facility] Comment:Calculation based on the??Chronic Kidney Disease Epidemiology Collaboration (CKD-EPI) equation refit??without adjustment for race. BUN/Creatinine Ratio 16.1 LAB CHEMISTRY METHOD 08/06/2024 7:18 AM [facility] Calcium 8.6 8.5 - 10.5 mg/dL LAB CHEMISTRY METHOD 08/06/2024 7:18 AM [facility] Blood Venous blood specimen / Unknown Venipuncture / Unknown 08/06/2024 5:52 AM EDT 08/06/2024 6:36 AM EDT us Melecio Ying MD LAB BLOOD ORDERABLES Final Resu lt [facility] [address] [place] [address], [place] [phone] * (ABNORMAL) Complete blood count (08/06/2024 5:52 AM EDT) WBC 10.8 4.8 - 10.8 K/mcL LAB HEMETOLOGY METHOD 08/06/2024 7:[address] [facility] RBC 2.70(L) 4.50 - 5.50 M/mcL LAB HEMETOLOGY METHOD 08/06/2024 7:02 AM [facility] Hemoglobin 7.8(L) 13.5 - 17.5 g/dL LAB HEMETOLOGY METHOD 08/06/2024 7:02 AM [facility] Hematocrit 25.1(L) 42.0 - 54.0 % LAB HEMETOLOGY METHOD 08/06/2024 7:02 AM [facility] MCV 93.7 79.0 - 98.0 FL LAB HEMETOLOGY METHOD 08/06/2024 7:02 AM [facility] MCH 29.1 27.0 - 32.0 pcg LAB HEMETOLOGY METHOD 08/06/2024 7:02 AM [facility] MCHC 31.1(L) 32.0 - 37.0 g/dL LAB HEMETOLOGY METHOD 08/06/2024 7:02 AM [facility] RDW 14.8 11.0 - 15.0 % LAB HEMETOLOGY METHOD 08/06/2024 7:02 AM [facility] Platelets 460(H) 130 - 400 K/mcL LAB HEMETOLOGY METHOD 08/06/2024 7:[address] [facility] MPV 9.2 7.0 - 11.0 FL LAB HEMETOLOGY METHOD 08/06/2024 7:[address] [facility] NRBC 0.0 <1.0 % LAB HEMETOLOGY METHOD 08/06/2024 7:[address] [facility] NRBC Absolute 0.00 <0.10 K/mcL LAB HEMETOLOGY METHOD 08/06/2024 7:[address] [facility] Blood Venous blood specimen / Unknown Venipuncture / Unknown 08/06/2024 5:52 AM EDT 08/06/2024 6:36 AM EDT Melecio Ying MD LAB BLOOD ORDERABLES Final Resu lt [facility] [address] [place] [address], documented in this encounter Visit Diagnoses Diagnosis Acute kidney failure with tubular necrosis (CMS/HCC V24) documented in this encounter Care Teams Electrical Manager Relationship Specialty Start Date End Date Melecio Ying MD [address] [place] [address] PCP - General Internal Medicine 07/15/24 documented as of this encounter
--- OUTSIDE RECORDS SUMMARY | 2024-08-24 13:45 | XMS_ITS | Encounter Summary ---
Author Organization [facility] Address [address] [place] [address] Care Team Providers Care Bracelet Former Name Role Phone Melecio Ying MD Primary Care Provider [phone] Encounter Details Date Type Department Care Team (Late st Contact Info) Description 07/26/2024 Lab Requisition [facility] - Main Lab 299 [facility] [place] [phone] Melecio Ying MD [address] [place] [phone] Acute kidney failure with tubular necrosis (CMS/HCC [...] Info) Description 08/26/2024 11:[address] [facility] [address] [phone] documented as of this encounter Procedures Procedure Name Priority Date/Time Associated Diagnosis Comments COMPLETE BLOOD COUNT Routine 07/27/2024 5:27 AM EDT Acute kidney failure with tubular necrosis (CMS/HCC) COMPREHENSIVE METABOLIC PANEL Routine 07/27/2024 5:27 AM EDT Acute kidney failure with tubular necrosis (CMS/HCC) documented in this encounter Results * (ABNORMAL) Comprehensive metabolic panel (07/27/2024 5:27 AM EDT) Sodium 130(L) 133 - 145 mmol/L LAB CHEMISTRY METHOD 07/27/2024 1:37 PM [facility] Potassium 5.2 3.5 - 5.5 mmol/L LAB CHEMISTRY METHOD 07/27/2024 1:37 PM [facility] Chloride 98 96 - 110 mmol/L LAB CHEMISTRY METHOD 07/27/2024 1:37 PM [facility] CO2 22 21 - 32 mmol/L LAB CHEMISTRY METHOD 07/27/2024 1:37 PM [facility] Anion Gap 10 3 - 11 LAB CHEMISTRY METHOD 07/27/2024 1:37 PM [facility] Glucose 134(H) 70 - 100 mg/dL LAB CHEMISTRY METHOD 07/27/2024 1:37 PM [facility] BUN 27(H) 5 - 25 mg/dL LAB CHEMISTRY METHOD 07/27/2024 1:37 PM [facility] Creatinine 1.33(H) 0.70 - 1.30 mg/dL LAB CHEMISTRY METHOD 07/27/2024 1:37 PM [facility] eGFR 51(L) >=60 mL/min/1. 73m2 LAB CHEMISTRY METHOD 07/27/2024 1:37 PM [facility] Comment:Calculation based on the??Chronic Kidney Disease Epidemiology Collaboration (CKD-EPI) equation refit??without adjustment for race. BUN/Creatinine Ratio 20.3 LAB CHEMISTRY METHOD 07/27/2024 1:37 PM [facility] Calcium 8.5 8.5 - 10.5 mg/dL LAB CHEMISTRY METHOD 07/27/2024 1:37 PM [facility] AST (SGOT) 13 10 - 42 unit/L LAB CHEMISTRY METHOD 07/27/2024 1:37 PM EDT [facility] ALT (SGPT) 15 10 - 60 unit/L LAB CHEMISTRY METHOD 07/27/2024 1:37 PM EDT [facility] Alkaline Phosphatase 95 42 - 121 unit/L LAB [facility]STR[facility] Total Protein 6.5 6.0 - 8.0 g/dL LAB CHEMISTRY METHOD 07/27/2024 1:37 PM EDT [facility] Albumin 2.4(L) 3.2 - 5.0 g/dL LAB CHEMISTRY METHOD 07/27/2024 1:37 PM [facility] Total Bilirubin 0.5 0.0 - 1.4 mg/dL LAB CHEMISTRY METHOD 07/27/2024 1:37 PM [facility] Blood Venous blood specimen / Unknown Venipuncture / Unknown 07/27/2024 5:27 AM EDT 07/27/2024 11:08 AM EDT us Melecio Ying MD LAB BLOOD ORDERABLES Final Resu lt [facility] [address] [place] [address], [place] [phone] * (ABNORMAL) Complete blood count (07/27/2024 5:27 AM EDT) WBC 12.8(H) 4.8 - 10.8 K/[facility] LAB HEMETOLOGY METHOD 07/27/2024 11:47 AM EDT [facility] RBC 2.90(L) 4.50 - 5.50 M/[facility] LAB HEMETOLOGY METHOD 07/27/2024 11:47 AM T [facility] Hemoglobin 8.7(L) 13.5 - 17.5 g/dL LAB HEMETOLOGY METHOD 07/27/2024 11:47 AM EDT [facility] Hematocrit 27.6(L) 42.0 - 54.0 % LAB HEMETOLOGY METHOD 07/27/2024 11:47 AM EDT [facility] MCV 94.8 79.0 - 98.0 FL LAB HEMETOLOGY METHOD 07/27/2024 11:47 AM EDT [facility] MCH 29.9 27.0 - 32.0 pcg LAB HEMETOLOGY METHOD 07/27/2024 11:47 AM EDT [facility] MCHC 31.5(L) 32.0 - 37.0 g/dL LAB HEMETOLOGY METHOD 07/27/2024 11:47 AM EDT [facility] RDW 14.3 11.0 - 15.0 % LAB HEMETOLOGY METHOD 07/27[facility]2024 [facility] Platelets 488(H) 130 - 400 K/mcL LAB HEMETOLOGY METHOD 07/27/2024 11:47 AM EDT [facility] MPV 9.7 7.0 - 11.0 FL LAB HEMETOLOGY METHOD 07/27/2024 11:47 AM EDT [facility] NRBC 0.0 <1.0 % LAB HEMETOLOGY METHOD 07/27/2024 11:47 AM [facility] NRBC Absolute 0.00 <0.10 K/mcL LAB HEMETOLOGY METHOD 07/27/2024 11:47 AM EDT [facility] Blood Venous blood specimen / Unknown Venipuncture / Unknown 07/27/2024 5:27 AM EDT 07/27/2024 11:08 AM EDT us Melecio Ying MD LAB BLOOD ORDERABLES Final Resu lt [facility] [address] [place] [address], documented in this encounter Visit Diagnoses Diagnosis Acute kidney failure with tubular necrosis (CMS/HCC V24) documented in this encounter Care Teams Bracelet Former Relationship Specialty Start Date End Date Melecio Ying MD [address] [place] [phone] PCP - General Internal Medicine 07/15/24 documented as of this encounter
--- OUTSIDE RECORDS SUMMARY | 2024-08-24 13:45 | XMS_ITS | Encounter Summary ---
Author Organization [facility] Address [address] [place] [address] Care Team Providers Care Boat Tender Name Role Phone Melecio Ying MD Primary Care Provider [phone] Encounter Details Date Type Department Care Team (Late st Contact Info) Description 08/19/2024 Lab Requisition [facility] - Main Lab 299 [facility] [place] [phone] Melecio Ying MD [address] [place] [phone] Acute kidney failure with tubular necrosis (CMS/HCC [...] Info) Description 08/26/2024 11:00 AM EDT Appointment [facility] [address] [phone] documented as of this encounter Visit Diagnoses Diagnosis Acute kidney failure with tubular necrosis (CMS/HCC V24) documented in this encounter Care Teams Boat Tender Relationship Specialty Start Date End Date Melecio Ying MD [address] [place] [phone] PCP - General Internal Medicine 07/15/24 documented as of this encounter
--- OUTSIDE RECORDS SUMMARY | 2024-08-24 13:45 | XMS_ITS | Encounter Summary ---
Author Organization [facility] Address [address] [place] [address] Care Team Providers Care Bearing Maker Name Role Phone Melecio Ying MD Primary Care Provider [phone] Encounter Details Date Type Department Care Team (Late st Contact Info) Description 07/29/2024 Lab Requisition [facility] - Main Lab [address] [facility] [place] [phone] Melecio Ying MD [address] [place] [phone] Acute kidney failure with tubular necrosis (CMS/HCC [...] Info) Description 08/26/2024 11:00 AM EDT Appointment [facility] [address] [phone] documented as of this encounter Procedures Procedure Name Priority Date/Time Associated Diagnosis Comments COMPLETE BLOOD COUNT Routine 07/30/2024 6:03 AM EDT Acute kidney failure with tubular necrosis (CMS/HCC V24) BASIC METABOLIC PANEL Routine 07/30/2024 6:03 AM EDT Acute kidney failure with tubular necrosis (CMS/HCC V24) documented in this encounter Results * (ABNORMAL) Basic metabolic panel (07/30/2024 6:03 AM EDT) Sodium 132(L) 133 - 145 mmol/L LAB CHEMISTRY METHOD 07/30/2024 12:[address] [facility] Potassium 4.6 3.5 - 5.5 mmol/L LAB CHEMISTRY METHOD 07/30/2024 12:[address] [facility] Chloride 99 96 - 110 mmol/L LAB CHEMISTRY METHOD 07/30/2024 12:[address] [facility] CO2 22 21 - 32 mmol/L LAB CHEMISTRY METHOD 07/30/2024 12:[address] [facility] Anion Gap 11 3 - 11 LAB CHEMISTRY METHOD 07/30/2024 12:[address] [facility] Glucose 103(H) 70 - 100 mg/dL LAB CHEMISTRY METHOD 07/30/2024 12:[address] [facility] BUN 22 5 - 25 mg/dL LAB CHEMISTRY METHOD 07/30/2024 12:[address] [facility] Creatinine 1.35(H) 0.70 - 1.30 mg/dL LAB CHEMISTRY METHOD 07/30/2024 12:[address] [facility] eGFR 50(L) >=60 mL/min/1. 73m2 LAB CHEMISTRY METHOD 07/30/2024 12:[address] [facility] Comment:Calculation based on the??Chronic Kidney Disease Epidemiology Collaboration (CKD-EPI) equation refit??without adjustment for race. BUN/Creatinine Ratio 16.3 LAB CHEMISTRY METHOD 07/30/2024 12:[address] [facility] Calcium 8.7 8.5 - 10.5 mg/dL LAB CHEMISTRY METHOD 07/30/2024 12:[address] [facility] Blood Venous blood specimen / Unknown Venipuncture / Unknown 07/30/2024 6:03 AM EDT 07/30/2024 10:35 AM EDT us Melecio Ying MD LAB BLOOD ORDERABLES Final Resu lt [facility] [address] [place] [address], [place] [phone] * (ABNORMAL) Complete blood count (07/30/2024 6:03 AM EDT) WBC 10.7 4.8 - 10.8 K/mcL LAB HEMETOLOGY METHOD 07/30/2024 12:17 PM EDT [facility] RBC 2.70(L) 4.50 - 5.50 M/mcL LAB [facility] Hemoglobin 7.9(L) 13.5 - 17.5 g/dL LAB HEMETOLOGY METHOD 07/30/2024 12:17 PM EDT [facility] Hematocrit 24.7(L) 42.0 - 54.0 % LAB HEMETOLOGY METHOD 07/30/2024 12:17 PM EDT [facility] MCV 92.2 79.0 - 98.0 FL LAB HEMETOLOGY METHOD 07/30/2024 12:17 PM EDT [facility] MCH 29.5 27.0 - 32.0 pcg LAB HEMETOLOGY METHOD 07/30/2024 12:17 PM EDT [facility] MCHC 32.0 32.0 - 37.0 g/dL LAB HEMETOLOGY METHOD 07/30/2024 12:17 PM EDT [facility] RDW 14.7 11.0 - 15.0 % LAB HEMETOLOGY METHOD 07/30/2024 12:17 PM EDT [facility] Platelets 524(H) 130 - 400 K/mcL LAB HEMETOLOGY METHOD 07/30/2024 12:17 PM EDT [facility] MPV 9.5 7.0 - 11.0 FL LAB HEMETOLOGY METHOD 07/30/2024 12:17 PM EDT [facility] NRBC 0.0 <1.0 % LAB HEMETOLOGY METHOD 07/30/2024 12:17 PM EDT [facility] NRBC Absolute 0.00 <0.10 K/mcL LAB HEMETOLOGY METHOD 07/30/2024 12:17 PM EDT [facility] Blood Venous blood specimen / Unknown Venipuncture / Unknown 07/30/2024 6:03 AM EDT 07/30/2024 10:35 AM EDT us Melecio Ying MD LAB BLOOD ORDERABLES Final Resu lt [facility] [address] [place] [address], documented in this encounter Visit Diagnoses Diagnosis Acute kidney failure with tubular necrosis (CMS/HCC V24) documented in this encounter Care Teams Bearing Maker Relationship Specialty Start Date End Date Melecio Ying MD [address] [place] [phone] PCP - General Internal Medicine 07/15/24 documented as of this encounter
--- OUTSIDE RECORDS SUMMARY | 2024-08-24 13:45 | XMS_ITS | Encounter Summary ---
Author Organization [facility] Address [address] [place] [address] Care Team Providers Care Can Bander Operator Name Role Phone Melecio Ying MD Primary Care Provider [phone] Encounter Details Date Type Department Care Team (Late st Contact Info) Description 08/07/2024 Lab Requisition [facility] - Main Lab [address] [facility] [place] [phone] Melecio Ying MD [address] [place] [phone] Acute kidney failure with tubular necrosis (CMS/HCC [...] Info) Description 08/26/2024 11:00 AM EDT Appointment [facility] [address] [phone] documented as of this encounter Procedures Procedure Name Priority Date/Time Associated Diagnosis Comments COMPLETE BLOOD COUNT Routine 08/10/2024 5:09 AM EDT Acute kidney failure with tubular necrosis (CMS/HCC V24) COMPREHENSIVE METABOLIC PANEL Routine 08/10/2024 5:09 AM EDT Acute kidney failure with tubular necrosis (CMS/HCC V24) documented in this encounter Results * (ABNORMAL) Comprehensive metabolic panel (08/10/2024 5:09 AM EDT) Sodium 139 133 - 145 mmol/L LAB CHEMISTRY METHOD 08/10/2024 12:23 PM [facility] Potassium 4.6 3.5 - 5.5 mmol/L LAB CHEMISTRY METHOD 08/10/2024 12:23 PM [facility] Chloride 106 96 - 110 mmol/L LAB CHEMISTRY METHOD 08/10/2024 12:23 PM [facility] CO2 22 21 - 32 mmol/L LAB CHEMISTRY METHOD 08/10/2024 12:23 PM [facility] Anion Gap 11 3 - 11 LAB CHEMISTRY METHOD 08/10/2024 12:23 PM [facility] Glucose 99 70 - 100 mg/dL LAB CHEMISTRY METHOD 08/10/2024 12:23 PM [facility] BUN 20 5 - 25 mg/dL LAB CHEMISTRY METHOD 08/10/2024 12:23 PM [facility] Creatinine 1.44(H) 0.70 - 1.30 mg/dL LAB CHEMISTRY METHOD 08/10/2024 12:23 PM [facility] eGFR 47(L) >=60 mL/min/1. 73m2 LAB CHEMISTRY METHOD 08/10/2024 12:23 PM [facility] Comment:Calculation based on the??Chronic Kidney Disease Epidemiology Collaboration (CKD-EPI) equation refit??without adjustment for race. BUN/Creatinine Ratio 13.9 LAB CHEMISTRY METHOD 08/10/2024 12:23 PM [facility] Calcium 8.8 8.5 - 10.5 mg/dL LAB CHEMISTRY METHOD 08/10/2024 12:23 PM [facility] AST (SGOT) 11 10 - 42 unit/L LAB CHEMISTRY METHOD 08/10/2024 12:23 PM [facility] ALT (SGPT) 14 10 - 60 unit/L LAB CHEMISTRY METHOD 08/10/2024 12:23 PM EDT [facility] Alkaline Phosphatase 91 42 - 121 unit/L LAB CHEMISTRY METHOD 08/10/2024 12:23 PM EDT [facility] Total Protein 6.6 6.0 - 8.0 g/dL LAB CHEMISTRY METHOD 08/10/2024 12:23 PM T [facility] Albumin 2.3(L) 3.2 - 5.0 g/dL LAB CHEMISTRY METHOD 08/10/2024 12:23 PM T [facility] Total Bilirubin 0.3 0.0 - 1.4 mg/dL LAB CHEMISTRY METHOD 08/10/2024 12:23 PM [facility] Blood Venous blood specimen / Unknown Venipuncture / Unknown 08/10/2024 5:09 AM EDT 08/10/2024 9:56 AM EDT us Melecio Ying MD LAB BLOOD ORDERABLES Final Resu lt [facility] [address] [place] [address], [place] [phone] * (ABNORMAL) Complete blood count (08/10/2024 5:09 AM EDT) WBC 9.9 4.8 - 10.8 K/mcL LAB HEMETOLOGY METHOD 08/10/2024 11:03 AM EDT [facility] RBC 2.60(L) 4.50 - 5.50 M/mcL LAB HEMETOLOGY METHOD 08/10/2024 11:03 AM EDT [facility] Hemoglobin 7.7(L) 13.5 - 17.5 g/dL LAB HEMETOLOGY METHOD 08/10/2024 11:03 AM EDT [facility] Hematocrit 24.9(L) 42.0 - 54.0 % LAB HEMETOLOGY METHOD 08/10/2024 11:03 AM EDT [facility] MCV 94.7 79.0 - 98.0 FL LAB HEMETOLOGY METHOD 08/10/2024 11:03 AM EDT [facility] MCH 29.3 27.0 - 32.0 pcg LAB HEMETOLOGY METHOD 08/10/2024 11:03 AM EDT [facility] MCHC 30.9(L) 32.0 - 37.0 g/dL LAB HEMETOLOGY METHOD 08/10/2024 11:03 AM EDT [facility] RDW 15.3(H) 11.0 - 15.0 % LAB HEMETOLOGY METHOD 08/10/2024 11:03 AM [facility] Platelets 461(H) 130 - 400 K/mcL LAB HEMETOLOGY METHOD 08/10/2024 11:03 AM EDT [facility] MPV 9.3 7.0 - 11.0 FL LAB HEMETOLOGY METHOD 08/10/2024 11:03 AM EDT [facility] NRBC 0.0 <1.0 % LAB HEMETOLOGY METHOD 08/10/2024 11:03 AM [facility] NRBC Absolute 0.00 <0.10 K/mcL LAB HEMETOLOGY METHOD 08/10/2024 11:03 AM EDT [facility] Blood Venous blood specimen / Unknown Venipuncture / Unknown 08/10/2024 5:09 AM EDT 08/10/2024 9:56 AM EDT us Melecio Ying MD LAB BLOOD ORDERABLES Final Resu lt [facility] [address] [place] [address], [place] [phone] documented in this encounter Visit Diagnoses Diagnosis Acute kidney failure with tubular necrosis (CMS/HCC V24) documented in this encounter Care Teams Can Bander Operator Relationship Specialty Start Date End Date Melecio Ying MD [address] [place] [phone] PCP - General Internal Medicine 07/15/24 documented as of this encounter
--- OUTSIDE RECORDS SUMMARY | 2024-08-24 13:45 | XMS_ITS | Clinical Summary ---
Author Organization [address] Address [address] [place] [address] Phone Care Team Providers Care Customer Retention Representative Name Role Phone Melecio Ying MD Primary Care Provider [phone] Encounters Date Type Department Care Team Description 08/19/2024 Lab Requisition [facility] Lab [address] [place] [phone] Melecio Ying MD Acute kidney failure with tubular necrosis ([facility]/HCC V24) 08/14/2024 Lab Requisition [facility] Lab [address] [place] [address] Melecio Ying MD Acute kidney failure with tubular necrosis ([facility]/HCC V24) 08/12/2024 Lab Requisition [facility] Lab [address] [place] [phone] Melecio Ying MD Acute kidney failure with tubular necrosis ([facility]/HCC V24) 08/07/2024 Lab Requisition [facility] Lab [address] [place] [phone] Melecio Ying MD Acute kidney failure with tubular necrosis (CMS/HCC V24) 08/05/2024 Lab Requisition [facility] Lab [address] [place] [phone] Melecio Ying MD Acute kidney failure with tubular necrosis (CMS/HCC V24) 08/01/2024 Lab Requisition [facility] Lab [address] [place] [phone] Melecio Ying MD Acute kidney failure with tubular necrosis (CMS/HCC V24) 07/29/2024 Lab Requisition [facility] Lab [address] [place] [phone] Melecio Ying MD Acute kidney failure with tubular necrosis (CMS/HCC V24) 07/26/2024 Lab Requisition [facility] Lab [address] [place] [phone] Melecio Ying MD Acute kidney failure with tubular necrosis (CMS/HCC V24) 07/24/2024 Lab Requisition [facility] Lab [address] [place] [phone] Melecio Ying MD Acute respiratory failure with hypoxia (CMS/HCC V24, CMS/HCC V28); Other usp (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 07/24/2024 Lab Requisition [facility] Lab [address] [place] [phone] Melecio Ying MD Acute respiratory failure with hypoxia (CMS/HCC V24, CMS/HCC V28); Other long distance operator (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 07/22/2024 Lab Requisition [facility] Lab [address] [place] [phone] Melecio Ying MD Acute kidney failure with tubular necrosis (CMS/HCC V24) 07/18/2024 Lab Requisition [facility] Lab [address] [place] [phone] Melecio Ying MD Acute kidney failure with tubular necrosis (CMS/HCC V24) 07/15/2024 Lab Requisition [facility] Lab [address] [place] [phone] Melecio Ying MD Acute kidney failure with tubular necrosis (CMS/HCC V24) 07/15/[address] [facility] [address] [facility] [place] [address] Melecio Ying MD Acute kidney failure with tubular necrosis ([facility] V24) from Last 3 Months Social History Tobacco Use Types Packs/Day Years Used Date Smoking Tobacco: Never Assessed Sex and Gender Information Value Date Recorded Sex Assigned at Not on file Legal Sex Male 9:41 AM EDT Gender Identity Not on file Sexual Orientation Not on file Plan of Treatment Upcoming Encounters Date Type Department Care Team (Late st Contact Info) Description 08/26/2024 11:[address] [facility] [address] [phone] Health Maintenance Due Date Last Done Comments DTaP,Tdap,and Td Vaccines (1 - Tdap) 1954 Pneumococcal Vaccine: 50+ Years (1 of 2 - PCV) 1955 Zoster Vaccines (1 of 2) 1986 RSV Immunization Adult Patients (1 - 1-dose 75+ series) 2011 COVID-19 Vaccine ( - season) 2023 Depression Screening 07/15/2024 Falls Risk Assessment 07/15/2024 Medicare Annual Wellness Visit 07/15/2024 Social Influencers of Health Screening 07/15/2024 Influenza Vaccine (Season Ended) 2024 Hypertension/CHF/CAD Annual BMP Blood Test 08/17/2025 08/17/2024, 08/13/2024, 08/10/2024, Additional history exists Cholesterol Screening (Lipid Panel) 07/24/2029 07/24/2024 HIB Vaccines Aged Out No longer eligi [...] on patient's age to complete this topic MMR Vaccines Aged Out No longer eligi ble based on patient's age to complete this topic Meningococcal ACWY Vaccine Aged Out N o longer eligible based on patient's age to complete this topic Meningococcal B Vaccine Aged Out No l onger eligible based on patient's age to complete this topic RSV Immunization Patients Under 20 months Aged Out No longer eligible based on patient's age to complete this topic Varicella Vaccines Aged Out No longer eligible based on patient's age to complete this topic Procedures Procedure Name Priority Date/Time Associated Diagnosis Comments COMPREHENSIVE METABOLIC PANEL Routine 08/17/2024 5:16 AM EDT Acute kidney failure with tubular necrosis (CMS/HCC V24) COMPLETE BLOOD COUNT Routine 08/17/2024 5:16 AM EDT Acute kidney failure with tubular necrosis (CMS/HCC V24) BASIC METABOLIC PANEL Routine 08/13/2024 5:52 AM EDT Acute kidney failure with tubular necrosis (CMS/HCC V24) COMPLETE BLOOD COUNT Routine 08/13/2024 5:52 AM EDT Acute kidney failure with tubular necrosis (CMS/HCC V24) COMPREHENSIVE METABOLIC PANEL Routine 08/10/2024 5:09 AM EDT Acute kidney failure with tubular necrosis (CMS/HCC V24) COMPLETE BLOOD COUNT Routine 08/10/2024 5:09 AM EDT Acute kidney failure with tubular necrosis (CMS/HCC V24) BASIC METABOLIC PANEL Routine 08/06/2024 5:52 AM EDT Acute kidney failure with tubular necrosis (CMS/HCC V24) COMPLETE BLOOD COUNT Routine 08/06/2024 5:52 AM EDT Acute kidney failure with tubular necrosis (CMS/HCC V24) COMPREHENSIVE METABOLIC PANEL Routine 08/03/2024 5:23 AM EDT Acute kidney failure with tubular necrosis (CMS/HCC V24) COMPLETE BLOOD COUNT Routine 08/03/2024 5:23 AM EDT Acute kidney failure with tubular necrosis (CMS/HCC V24) BASIC METABOLIC PANEL Routine 07/30/2024 6:03 AM EDT Acute kidney failure with tubular necrosis (CMS/HCC V24) COMPLETE BLOOD COUNT Routine 07/30/2024 6:03 AM EDT Acute kidney failure with tubular necrosis (CMS/HCC V24) COMPREHENSIVE METABOLIC PANEL Routine 07/27/2024 5:27 AM EDT Acute kidney failure with tubular necrosis (CMS/HCC) COMPLETE BLOOD COUNT Routine 07/27/2024 5:27 AM EDT Acute kidney failure with tubular necrosis (CMS/HCC) CREATINE KINASE Routine 07/24/2024 5:49 AM EDT Acute respiratory failure with hypoxia Other long distance operator (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 LIPID PANEL WITH REFLEX TO DIRECT LDL Routine 07/24/2024 5:49 AM EDT Acute respiratory failure with hypoxia Other long distance operator (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 MAGNESIUM Routine 07/24/2024 5:49 AM EDT Acute respiratory failure with hypoxia Other long distance operator (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 THYROID STIMULATING HORMONE WITH REFLEX TO FREE T4 AND FREE T3 Routine 07/24/2024 5:49 AM EDT Acute respiratory failure with hypoxia Other long distance operator (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 HEMOGLOBIN A1C Routine 07/24/2024 5:49 AM EDT Acute respiratory failure with hypoxia Other long distance operator (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 COMPLETE BLOOD COUNT Routine 07/24/2024 5:49 AM EDT Acute respiratory failure with hypoxia Other long distance operator (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 URINALYSIS WITH REFLEX MICROSCOPIC Routine 07/23/2024 2:30 PM EDT Acute respiratory failure with hypoxia Other long distance operator (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 URINALYSIS WITH REFLEX MICROSCOPIC Routine 07/23/2024 2:30 PM EDT Acute respiratory failure with hypoxia Other long distance operator (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 CULTURE URINE Routine 07/23/2024 2:30 PM EDT Acute respiratory failure with hypoxia Other usp (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 BASIC METABOLIC PANEL Routine 07/23/2024 6:05 AM EDT Acute kidney failure with tubular necrosis (CMS/HCC) COMPLETE BLOOD COUNT Routine 07/23/2024 6:05 AM EDT Acute kidney failure with tubular necrosis (CMS/HCC) COMPREHENSIVE METABOLIC PANEL Routine 07/20/2024 9:45 AM EDT Acute kidney failure with tubular necrosis (CMS/HCC) COMPLETE BLOOD COUNT Routine 07/20/2024 9:45 AM EDT Acute kidney failure with tubular necrosis (CMS/HCC) BASIC METABOLIC PANEL Routine 07/16/2024 6:24 AM EDT Acute kidney failure with tubular necrosis (CMS/HCC) COMPLETE BLOOD COUNT Routine 07/16/2024 6:24 AM EDT Acute kidney failure with tubular necrosis (CMS/HCC) COMPREHENSIVE METABOLIC PANEL Routine 07/15/2024 7:01 AM EDT Acute kidney failure with tubular necrosis (CMS/HCC) COMPLETE BLOOD COUNT Routine 07/15/2024 7:01 AM EDT Acute kidney failure with tubular necrosis (CMS/HCC) from Last 3 Months Results * (ABNORMAL) Complete blood count (08/17/2024 5:16 AM EDT) Only the most recent of12 resultswithin the time period is included. WBC 9.6 4.8 - 10.8 K/mcL LAB HEMETOLOGY METHOD 08/17/2024 11:44 AM EDT [facility] RBC 2.70(L) 4.50 - 5.50 M/mcL LAB HEMETOLOGY METHOD 08/17/2024 11:44 AM EDT [facility] LAB Hemoglobin 7.7(L) 13.5 - 17.5 g/dL LAB HEMETOLOGY METHOD 08/17/2024 11:44 AM [facility] LAB Hematocrit 25.4(L) 42.0 - 54.0 % LAB HEMETOLOGY METHOD 08/17/2024 11:44 AM [facility] MCV 95.1 79.0 - 98.0 FL LAB HEMETOLOGY METHOD 08/17/2024 11:44 AM [facility] LAB MCH 28.8 27.0 - 32.0 pcg LAB HEMETOLOGY METHOD 08/17/2024 11:44 AM [facility] LAB MCHC 30.3(L) 32.0 - 37.0 g/dL LAB HEMETOLOGY METHOD 08/17/2024 11:44 AM [facility] RDW 15.8(H) 11.0 - 15.0 % LAB HEMETOLOGY METHOD 08/17/2024 11:44 AM [facility] Platelets 506(H) 130 - 400 K/mcL LAB HEMETOLOGY METHOD 08/17/2024 11:44 AM [facility] MPV 9.2 7.0 - 11.0 FL LAB HEMETOLOGY METHOD 08/17/2024 11:44 AM [facility] NRBC 0.0 <1.0 % LAB HEMETOLOGY METHOD 08/17/2024 11:44 AM [facility] LAB NRBC Absolute 0.00 <0.10 K/mcL LAB HEMETOLOGY METHOD 08/17/2024 11:44 AM [facility] Blood Venous blood specimen / Unknown Venipuncture / Unknown 08/17/2024 5:16 AM EDT 08/17/2024 10:04 AM EDT Melecio Ying MD LAB BLOOD ORDERABLES Final Resu lt [facility] LAB [address] [place] [address], * (ABNORMAL) Comprehensive metabolic panel (08/17/2024 5:16 AM EDT) Only the most recent of6 resultswithin the time period is included. Sodium 134 133 - 145 mmol/L LAB CHEMISTRY METHOD 08/17/2024 12:46 PM [facility] Potassium 4.7 3.5 - 5.5 mmol/L LAB CHEMISTRY METHOD 08/17/2024 12:46 PM [facility] Chloride 103 96 - 110 mmol/L LAB CHEMISTRY METHOD 08/17/2024 12:46 PM [facility] CO2 23 21 - 32 mmol/L LAB CHEMISTRY METHOD 08/17[facility]24 [facility] Anion Gap 8 3 - 11 LAB CHEMISTRY METHOD 08/17/2024 12:46 PM [facility] Glucose 123(H) 70 - 100 mg/dL LAB CHEMISTRY METHOD 08/17/2024 12:46 PM [facility] BUN 19 5 - 25 mg/dL LAB CHEMISTRY METHOD 08/17/2024 12:46 PM [facility] Creatinine 1.24 0.70 - 1.30 mg/dL LAB CHEMISTRY METHOD 08/17/2024 12:46 PM [facility] eGFR 56(L) >=60 mL/min/1. 73m2 LAB CHEMISTRY METHOD 08/17/2024 12:46 PM [facility] Comment:Calculation based on the??Chronic Kidney Disease Epidemiology Collaboration (CKD-EPI) equation refit??without adjustment for race. BUN/Creatinine Ratio 15.3 LAB CHEMISTRY METHOD 08/17/2024 12:46 PM [facility] Calcium 8.7 8.5 - 10.5 mg/dL LAB CHEMISTRY METHOD 08/17/2024 12:46 PM [facility] AST (SGOT) 9(L) 10 - 42 unit/L LAB CHEMISTRY METHOD 08/17/2024 12:46 PM [facility] ALT (SGPT) 12 10 - 60 unit/L LAB CHEMISTRY METHOD 08/17/2024 12:46 PM [facility] Alkaline Phosphatase 101 42 - 121 unit/L LAB CHEMISTRY METHOD 08/17/2024 12:46 PM [facility] Total Protein 6.8 6.0 - 8.0 g/dL LAB CHEMISTRY METHOD 08/17/2024 12:46 PM [facility] Albumin 2.5(L) 3.2 - 5.0 g/dL LAB CHEMISTRY METHOD 08/17/2024 12:46 PM [facility] Total Bilirubin 0.5 0.0 - 1.4 mg/dL LAB CHEMISTRY METHOD 08/17/2024 12:46 PM [facility] Blood Venous blood specimen / Unknown Venipuncture / Unknown 08/17/2024 5:16 AM EDT 08/17/2024 10:04 AM EDT us Melecio Ying MD LAB BLOOD ORDERABLES Final Resu lt [facility] [address] [place] [address], * (ABNORMAL) Basic metabolic panel (08/13/2024 5:52 AM EDT) Only the most recent of5 resultswithin the time period is included. Sodium 137 133 - 145 mmol/L LAB CHEMISTRY METHOD 08/13/2024 10:54 AM [facility] Potassium 4.3 3.5 - 5.5 mmol/L LAB CHEMISTRY METHOD 08/13/2024 10:54 AM T [facility] Chloride 105 96 - 110 mmol/L LAB CHEMISTRY METHOD 08/13/2024 10:54 AM [facility] CO2 21 21 - 32 mmol/L LAB CHEMISTRY METHOD 08/13/2024 10:54 AM [facility] Anion Gap 11 3 - 11 LAB CHEMISTRY METHOD 08/13/2024 10:54 AM [facility] Glucose 115(H) 70 - 100 mg/dL LAB CHEMISTRY METHOD 08/13/2024 10:54 AM [facility] BUN 22 5 - 25 mg/dL LAB CHEMISTRY METHOD 08/13/2024 10:54 AM [facility] Creatinine 1.34(H) 0.70 - 1.30 mg/dL LAB CHEMISTRY METHOD 08/13/2024 10:54 AM [facility] eGFR 51(L) >=60 mL/min/1. 73m2 LAB CHEMISTRY METHOD 08/13/2024 10:54 AM [facility] Comment:Calculation based on the??Chronic Kidney Disease Epidemiology Collaboration (CKD-EPI) equation refit??without adjustment for race. BUN/Creatinine Ratio 16.4 LAB CHEMISTRY METHOD 08/13/2024 10:54 AM [facility] Calcium 8.5 8.5 - 10.5 mg/dL LAB CHEMISTRY METHOD 08/13/2024 10:54 AM [facility] Blood Venous blood specimen / Unknown Venipuncture / Unknown 08/13/2024 5:52 AM EDT 08/13/2024 9:40 AM EDT us Melecio Ying MD LAB BLOOD ORDERABLES Final Resu lt [facility] [address] [place] [address], * Thyroid stimulating hormone with reflex to free t4 and free t3 (07/24/2024 5:49 AM EDT) TSH 0.50 0.40 - 4.00 mcIU/mL LAB CHEMISTRY METHOD 07/24/2024 11:54 AM EDT [facility] Blood Venous blood specimen / Unknown Venipuncture / Unknown 07/24/2024 5:49 AM EDT 07/24/2024 9:34 AM EDT us Melecio Ying MD LAB BLOOD ORDERABLES Final Resu lt [facility] [address] [place] [address], [place] [phone] * (ABNORMAL) Lipid panel with reflex to direct LDL (07/24/2024 5:49 AM EDT) [facility] Cholesterol 83 0 - 200 mg/dL LAB CHEMISTRY METHOD 07/24/2024 11:13 AM [facility] Triglycerides 89 0 - 150 mg/dL LAB CHEMISTRY METHOD 07/24/2024 11:13 AM [facility] HDL 30(L) >=40 mg/dL LAB CHEMISTRY METHOD 07/24/2024 11:13 AM [facility] LDL Calculated 35 0 - 100 mg/dL LAB CHEMISTRY METHOD 07/24/2024 11:13 AM [facility] VLDL Cholesterol Juan 17.8 mg/dL LAB CHEMISTRY METHOD 07/24/2024 11:13 AM [facility] Non HDL Chol. (LDL+VLDL) 53 <145 mg/dL LAB CHEMISTRY METHOD 07/24/2024 11:13 AM [facility] Chol/HDL Ratio 2.8 0.0 - 4.4 LAB CHEMISTRY METHOD 07/24/2024 11:13 AM [facility] Blood Venous blood specimen / Unknown Venipuncture / Unknown 07/24/2024 5:49 AM EDT 07/24/2024 9:34 AM EDT us Melecio Ying MD LAB BLOOD ORDERABLES Final Resu lt Performing Organization Address City/[facility]/ZIP Co de Phone Number [facility] [address] [place] [address], [place] [phone] * Magnesium (07/24/2024 5:49 AM EDT) [facility] Magnesium 1.9 1.9 - 2.6 mg/dL LAB CHEMISTRY METHOD 07/24/2024 11:11 AM EDT [facility] Blood Venous blood specimen / Unknown Venipuncture / Unknown 07/24/2024 5:49 AM EDT 07/24/2024 9:34 AM EDT us Melecio Ying MD LAB BLOOD ORDERABLES Final Resu lt Performing Organization Address [facility] Co de Phone Number [facility] [address] [place] [address], [place] [phone] * (ABNORMAL) Hemoglobin A1c (07/24/2024 5:49 AM EDT) [facility] Hemoglobin A1C 7.6(H) <6.5 % LAB CHEMISTRY METHOD 07/24/2024 12:12 PM EDT [facility] Mean Bld Glu Estim. 171 mg/dL LAB CHEMISTRY METHOD 07/24/2024 12:12 PM EDT [facility] Blood Venous blood specimen / Unknown Venipuncture / Unknown 07/24/2024 5:49 AM EDT 07/24/2024 9:34 AM EDT us Melecio Ying MD LAB BLOOD ORDERABLES Final Resu lt Performing Organization Address City/[facility]/ZIP Co de Phone Number [facility] [address] [place] [address], [place] [phone] * Creatine kinase (07/24/2024 5:49 AM EDT) [facility] Total CK 31 22 - 269 unit/L LAB CHEMISTRY METHOD 07/24/2024 11:11 AM [facility] Blood Venous blood specimen / Unknown Venipuncture / Unknown 07/24/2024 5:49 AM EDT 07/24/2024 9:34 AM EDT us Melecio Ying MD LAB BLOOD ORDERABLES Final Resu lt [facility] [address] [place] [address], * (ABNORMAL) Urinalysis with reflex microscopic (07/23/2024 2:30 PM EDT) [facility] Specific [place] Urine 1.020 1.003 - 1.030 LAB URINALYSIS - AUTOMATED METHOD 07/24/2024 11:11 AM [facility] pH, Urine 5.5 5.0 - 8.0 pH LAB URINALYSIS - AUTOMATED METHOD 07/24/2024 11:11 AM [facility] Leukocytes, Urine Large(A) Negative LAB URINALYSIS - AUTOMATED METHOD 07/24/2024 11:11 AM [facility] Nitrite, Urine Negative Negative LAB URINALYSIS - AUTOMATED METHOD 07/24/2024 11:11 AM [facility] Protein, Urine 300(A) <=Trace mg/dL LAB URINALYSIS - AUTOMATED METHOD 07/24/2024 11:11 AM [facility] Glucose, Urine Negative Negative mg/dL LAB URINALYSIS - AUTOMATED METHOD 07/24/2024 11:11 AM [facility] Ketones, Urine Trace(A) Negative mg/dL LAB URINALYSIS - AUTOMATED METHOD 07/24/2024 11:11 AM [facility] Urobilinogen , Urine 1.0 0.2 - 1.0 mg/dL LAB URINALYSIS - AUTOMATED METHOD 07/24/2024 11:11 AM [facility] Bilirubin, Urine Negative Negative LAB URINALYSIS - AUTOMATED METHOD 07/24/2024 11:11 AM [facility] Blood, Urine Large(A) Negative LAB URINALYSIS - AUTOMATED METHOD 07/24/2024 11:11 AM [facility] RBC, Urine 20.0(H) 0 - 4 /HPF LAB URINALYSIS - AUTOMATED METHOD 07/24/2024 11:11 AM [facility] WBC, Urine 3,506.1(H) 0 - 4 /HPF LAB URINALYSIS - AUTOMATED METHOD 07/24/2024 11:11 AM [facility] Squamous Epithelial, Urine 65(H) 0 - 60 /LPF LAB URINALYSIS - AUTOMATED METHOD 07/24/2024 11:11 AM [facility] Bacteria, Urine Negative Negative /HPF LAB URINALYSIS - AUTOMATED METHOD 07/24/2024 11:11 AM [facility] Hyaline Casts, Urine 24.3(H) 0 - 3 /LPF LAB URINALYSIS - AUTOMATED METHOD 07/24/2024 11:11 AM [facility] Yeast, Urine Present(A) None /HPF LAB URINALYSIS - AUTOMATED METHOD 07/24/2024 11:11 AM [facility] Urine Urine specimen obtained by clean catch procedure / Unknown Non-blood Collection / Unknown 07/23/2024 2:30 PM EDT 07/24/2024 9:42 AM EDT us Melecio Ying MD LAB URINE ORDERABLES Final Resu lt [facility] [address] [place] [address], * (ABNORMAL) Culture urine (07/23/2024 2:30 PM [...] EDT Melecio Ying MD LAB MICROBIOLOGY - GENERAL KATTY BLACK Final Result [facility] [address] [place] [address], from Last 3 Months Insurance MEDICARE Care Teams Customer Retention Representative Relationship Specialty Start Date End Date Melecio Ying MD [address] [place] [address] PCP - General Internal Medicine 07/15/24
--- OUTSIDE RECORDS SUMMARY | 2024-08-24 13:46 | XMS_ITS | Encounter Summary ---
Author Organization [facility] Address [address] [place] [address] Care Team Providers Care Chief Accounting Officer Name Role Phone Melecio Ying MD Primary Care Provider [phone] Encounter Details Date Type Department Care Team (Late st Contact Info) Description 07/22/2024 Lab Requisition [facility] - Main Lab 299 [facility] [place] [phone] Melecio Ying MD [address] [place] [phone] Acute kidney failure with tubular necrosis (CMS/HCC [...] Info) Description 08/26/2024 11:00 AM EDT Appointment [facility] [address] [phone] documented as of this encounter Procedures Procedure Name Priority Date/Time Associated Diagnosis Comments COMPLETE BLOOD COUNT Routine 07/23/2024 6:05 AM EDT Acute kidney failure with tubular necrosis (CMS/HCC) BASIC METABOLIC PANEL Routine 07/23/2024 6:05 AM EDT Acute kidney failure with tubular necrosis (CMS/HCC) documented in this encounter Results * (ABNORMAL) Basic metabolic panel (07/23/2024 6:05 AM EDT) Sodium 132(L) 133 - 145 mmol/L LAB CHEMISTRY METHOD 07/23/2024 11:39 AM [facility] Potassium 4.8 3.5 - 5.5 mmol/L LAB CHEMISTRY METHOD 07/23/2024 11:39 AM [facility] Chloride 99 96 - 110 mmol/L LAB CHEMISTRY METHOD 07/23/2024 11:39 AM [facility] CO2 23 21 - 32 mmol/L LAB CHEMISTRY METHOD 07/23/2024 11:39 AM [facility] Anion Gap 10 3 - 11 LAB CHEMISTRY METHOD 07/23/2024 11:39 AM [facility] Glucose 137(H) 70 - 100 mg/dL LAB CHEMISTRY METHOD 07/23/2024 11:39 AM [facility] BUN 29(H) 5 - 25 mg/dL LAB CHEMISTRY METHOD 07/23/2024 11:39 AM [facility] Creatinine 1.42(H) 0.70 - 1.30 mg/dL LAB CHEMISTRY METHOD 07/23/2024 11:39 AM [facility] eGFR 48(L) >=60 mL/min/1. 73m2 LAB CHEMISTRY METHOD 07/23/2024 11:39 AM [facility] Comment:Calculation based on the??Chronic Kidney Disease Epidemiology Collaboration (CKD-EPI) equation refit??without adjustment for race. BUN/Creatinine Ratio 20.4 LAB CHEMISTRY METHOD 07/23/2024 11:39 AM [facility] Calcium 8.7 8.5 - 10.5 mg/dL LAB CHEMISTRY METHOD 07/23/2024 11:39 AM [facility] Blood Venous blood specimen / Unknown Venipuncture / Unknown 07/23/2024 6:05 AM EDT 07/23/2024 10:56 AM EDT us Melecio Ying MD LAB BLOOD ORDERABLES Final Resu lt [facility] [address] [place] [address], [place] [phone] * (ABNORMAL) Complete blood count (07/23/2024 6:05 AM EDT) WBC 12.5(H) 4.8 - 10.8 K/mcL LAB HEMETOLOGY METHOD 07/23/2024 11:14 AM EDT [facility] RBC 2.70(L) 4.50 - 5.50 M/mcL LAB HEMETOLOGY METHOD 07/23/2024 11:14 AM [facility] Hemoglobin 8.0(L) 13.5 - 17.5 g/dL LAB HEMETOLOGY METHOD 07/23/2024 11:14 AM [facility] Hematocrit 24.8(L) 42.0 - 54.0 % LAB HEMETOLOGY METHOD 07/23/2024 11:14 AM [facility] MCV 93.2 79.0 - 98.0 FL LAB [facility]OLOGY [facility] MCH 30.1 27.0 - 32.0 pcg LAB HEMETOLOGY METHOD 07/23/2024 11:14 AM EDT [facility] MCHC 32.3 32.0 - 37.0 g/dL LAB HEMETOLOGY METHOD 07/23/2024 11:14 AM T [facility] RDW 14.0 11.0 - 15.0 % LAB HEMETOLOGY METHOD 07/23/2024 11:14 AM [facility] Platelets 391 130 - 400 K/mcL LAB HEMETOLOGY METHOD 07/23/2024 11:14 AM EDT [facility] MPV 9.8 7.0 - 11.0 FL LAB HEMETOLOGY METHOD 07/23/2024 11:14 AM EDT [facility] NRBC 0.0 <1.0 % LAB HEMETOLOGY METHOD 07/23/2024 11:14 AM EDT [facility] NRBC Absolute 0.00 <0.10 K/mcL LAB HEMETOLOGY METHOD 07/23/2024 11:14 AM EDT [facility] Blood Venous blood specimen / Unknown Venipuncture / Unknown 07/23/2024 6:05 AM EDT 07/23/2024 10:56 AM EDT us Melecio Ying MD LAB BLOOD ORDERABLES Final Resu lt [facility] [address] [place] [address], documented in this encounter Visit Diagnoses Diagnosis Acute kidney failure with tubular necrosis (CMS/HCC V24) documented in this encounter Care Teams Chief Accounting Officer Relationship Specialty Start Date End Date Melecio Ying MD [address] [place] [phone] PCP - General Internal Medicine 07/15/24 documented as of this encounter
--- OUTSIDE RECORDS SUMMARY | 2024-08-24 13:46 | XMS_ITS | Encounter Summary ---
Author Organization [facility] Address [address] [place] [address] Care Team Providers Care Cosmetic Maker Name Role Phone Melecio Ying MD Primary Care Provider [phone] Encounter Details Date Type Department Care Team (Late st Contact Info) Description 07/18/2024 Lab Requisition [facility] - Main Lab [address] [facility] [place] [phone] Melecio Ying MD [address] [place] [phone] Acute kidney failure with tubular necrosis (CMS/HCC [...] Description 08/26/2024 11:00 AM EDT Appointment [facility] [address] [phone] documented as of this encounter Procedures Procedure Name Priority Date/Time Associated Diagnosis Comments COMPLETE BLOOD COUNT Routine 07/20/2024 9:45 AM EDT Acute kidney failure with tubular necrosis (CMS/HCC) COMPREHENSIVE METABOLIC PANEL Routine 07/20/2024 9:45 AM EDT Acute kidney failure with tubular necrosis (CMS/HCC) documented in this encounter Results * (ABNORMAL) Comprehensive metabolic panel (07/20/2024 9:45 AM EDT) Sodium 130(L) 133 - 145 mmol/L LAB CHEMISTRY METHOD 07/20/2024 11:[address] [facility] Potassium 4.7 3.5 - 5.5 mmol/L LAB CHEMISTRY METHOD 07/20/2024 11:[address] [facility] Chloride 96 96 - 110 mmol/L LAB CHEMISTRY METHOD 07/20/2024 11:[address] [facility] CO2 23 21 - 32 mmol/L LAB CHEMISTRY METHOD 07/20/2024 11:[address] [facility] Anion Gap 11 3 - 11 LAB CHEMISTRY METHOD 07/20/2024 11:[address] [facility] Glucose 176(H) 70 - 100 mg/dL LAB CHEMISTRY METHOD 07/20/2024 11:[address] [facility] BUN 26(H) 5 - 25 mg/dL LAB CHEMISTRY METHOD 07/20/2024 11:[address] [facility] Creatinine 1.29 0.70 - 1.30 mg/dL LAB CHEMISTRY METHOD 07/20/2024 11:[address] [facility] eGFR 53(L) >=60 mL/min/1. 73m2 LAB CHEMISTRY METHOD 07/20/2024 11:[address] [facility] Comment:Calculation based on the??Chronic Kidney Disease Epidemiology Collaboration (CKD-EPI) equation refit??without adjustment for race. BUN/Creatinine Ratio 20.2 LAB CHEMISTRY METHOD 07/20/2024 11:[address] [facility] Calcium 8.5 8.5 - 10.5 mg/dL LAB CHEMISTRY METHOD 07/20/2024 11:[address] [facility] AST (SGOT) 13 10 - 42 unit/L LAB CHEMISTRY METHOD 07/20/2024 11:[address] [facility] ALT (SGPT) 15 10 - 60 unit/L LAB CHEMISTRY METHOD 07/20/2024 11:55 AM EDT [facility] Alkaline Phosphatase 101 42 - 121 unit/L LAB CHEMISTRY METHOD 07/20/2024 11:55 AM EDT [facility] Total Protein 6.5 6.0 - 8.0 g/dL LAB CHEMISTRY METHOD 07/20/2024 11:55 AM EDT [facility] Albumin 2.5(L) 3.2 - 5.0 g/dL LAB CHEMISTRY METHOD 07/20/2024 11:55 AM EDT [facility] Total Bilirubin 0.6 0.0 - 1.4 mg/dL LAB CHEMISTRY METHOD 07/20/2024 11:55 AM EDT [facility] Blood Venous blood specimen / Unknown Venipuncture / Unknown 07/20/2024 9:45 AM EDT 07/20/2024 10:51 AM EDT us Melecio Ying MD LAB BLOOD ORDERABLES Final Resu lt [facility] [address] [place] [address], * (ABNORMAL) Complete blood count (07/20/2024 9:45 AM EDT) WBC 10.9(H) 4.8 - 10.8 K/[facility] LAB HEMETOLOGY METHOD 07/20/2024 12:15 PM EDT [facility] RBC 2.80(L) 4.50 - 5.50 M/[facility] LAB HEMETOLOGY METHOD 07/20/2024 12:15 PM EDT [facility] Hemoglobin 8.4(L) 13.5 - 17.5 g/dL LAB HEMETOLOGY METHOD 07/20/2024 12:15 PM EDT [facility] Hematocrit 26.0(L) 42.0 - 54.0 % LAB HEMETOLOGY METHOD 07/20/2024 12:15 PM EDT [facility] MCV 92.9 79.0 - 98.0 FL LAB HEMETOLOGY METHOD 07/20/2024 12:15 PM EDT [facility] MCH 30.0 27.0 - 32.0 pcg LAB HEMETOLOGY METHOD 07/20/2024 12:15 PM EDT [facility] MCHC 32.3 32.0 - 37.0 g/dL LAB HEMETOLOGY METHOD 07/20/2024 12:15 PM EDT [facility] RDW 14.0 11.0 - 15.0 % LAB HEMETOLOGY METHOD 07/20/2024 12:15 PM EDT [facility] Platelets 387 130 - 400 K/mcL LAB HEMETOLOGY METHOD 07/20/2024 12:15 PM EDT [facility] MPV 9.7 7.0 - 11.0 FL LAB HEMETOLOGY METHOD 07/20/2024 12:15 PM EDT [facility] NRBC 0.0 <1.0 % LAB HEMETOLOGY METHOD 07/20/2024 12:15 PM EDT [facility] NRBC Absolute 0.00 <0.10 K/mcL LAB HEMETOLOGY METHOD 07/20/2024 12:15 PM EDT [facility] Blood Venous blood specimen / Unknown Venipuncture / Unknown 07/20/2024 9:45 AM EDT 07/20/2024 10:49 AM EDT us Melecio Ying MD LAB BLOOD ORDERABLES Final Resu lt [facility] [address] [place] [address], [place] [phone] documented in this encounter Visit Diagnoses Diagnosis Acute kidney failure with tubular necrosis (CMS/HCC V24) documented in this encounter Care Teams Cosmetic Maker Relationship Specialty Start Date End Date Melecio Ying MD [address] [place] [phone] PCP - General Internal Medicine 07/15/24 documented as of this encounter
--- OUTSIDE RECORDS SUMMARY | 2024-08-24 13:46 | XMS_ITS | Encounter Summary ---
Author Organization [employer] Address [address] [facility] [address] [place] [address] Care Team Providers Care Vocal Teacher Name Role Phone Unavailable Primary Care Provider [...]
--- OUTSIDE RECORDS SUMMARY | 2024-08-24 13:46 | XMS_ITS | Clinical Summary ---
Author Organization [email or web address] Address [address] [facility] [address] [place] [address] Care Team Providers Care Records Analyst Name Role Phone Unavailable Primary Care Provider [...]
--- OUTSIDE RECORDS SUMMARY | 2024-08-24 13:46 | XMS_ITS ---
Author Name [facility] [place] Organization [facility] [place] Address [address] [place] [address] Care Team Providers Care Clinical Advisor Name Role Phone JUVENTINO MARTIN Primary Care Provider Unav ailable PIEDAD, SHELLEY Unavailable Unavailable YESSENIA ARNOLD, ALAN Unavailable Unavailable DIANE SANTOS Unavailable Unavailable CHAPUT, ARASELI Unavailable Unavailable FEINIKKY, WOODY Unavailable Unavailable SANGEETHA, LISA Unavailable Unavailable BHARATI VEGA Unavailable Unavailable [...] PART A Apr 22, 2001 PART A [id number] JENIFER ANAYA PATIENT MEDICARE (WNR) MEDICARE (M) PART B Apr 22, 2001 PART B [id number] JENIFER ANAYA PATIENT [employer] PLAN F May 11, 2008 PLANF [id number] JENIFER ANAYA PATIENT Selected Encounter This section includes the information on record at [place] for the Encounter. Date/Time Encounter Type Encounter Description Reason Provider Source Feb 04, 2024 09:08 AM Outpatient Encounter PROSTHETICS/ORTHOTI IZAIAH REYNOLDS Encounter Template Text not used by [place] Plan of Treatment: Future Appointments (+ 6 months) and Future Tests (+/- 45 days) The Plan of Treatment section includes future care activities for the patient from all [place] treatmentfacilities. This section includes future appointments and future orders which are active, pending or scheduled. Future Appointments This section includes appointments that were scheduled to occur 6 months from the date of the Encounter, up to a maximum of 20 appointments. The data comes from all [place] treatment facilities. Appointment Date/Time Appointment Type Appointme nt Facility Name Mar 10, 2024 10:30 AM [facility]
--- OUTSIDE RECORDS SUMMARY | 2024-08-24 13:46 | XMS_ITS | Encounter Summary ---
Author Organization [facility] Address [address] [place] [address] Care Team Providers Care Cheese Specialist Name Role Phone Melecio Ying MD Primary Care Provider [phone] Encounter Details Date Type Department Care Team (Late st Contact Info) Description 07/15/2024 Lab Requisition [facility] - Main Lab 299 [facility] [place] [phone] Melecio Ying MD [address] [place] [phone] Acute kidney failure with tubular necrosis (CMS/HCC [...] [facility] [address] [phone] documented as of this encounter Procedures Procedure Name Priority Date/Time Associated Diagnosis Comments COMPLETE BLOOD COUNT Routine 07/16/2024 6:24 AM EDT Acute kidney failure with tubular necrosis (CMS/HCC) BASIC METABOLIC PANEL Routine 07/16/2024 6:24 AM EDT Acute kidney failure with tubular necrosis (CMS/HCC) documented in this encounter Results * (ABNORMAL) Basic metabolic panel (07/16/2024 6:24 AM EDT) Sodium 130(L) 133 - 145 mmol/L LAB CHEMISTRY METHOD 07/16/2024 11:27 AM [facility] Potassium 4.7 3.5 - 5.5 mmol/L LAB CHEMISTRY METHOD 07/16/2024 11:27 AM [facility] Chloride 99 96 - 110 mmol/L LAB CHEMISTRY METHOD 07/16/2024 11:27 AM [facility] CO2 24 21 - 32 mmol/L LAB CHEMISTRY METHOD 07/16/2024 11:27 AM [facility] Anion Gap 7 3 - 11 LAB CHEMISTRY METHOD 07/16/2024 11:27 AM [facility] Glucose 155(H) 70 - 100 mg/dL LAB CHEMISTRY METHOD 07/16/2024 11:27 AM [facility] BUN 28(H) 5 - 25 mg/dL LAB CHEMISTRY METHOD 07/16/2024 11:27 AM [facility] Creatinine 1.41(H) 0.70 - 1.30 mg/dL LAB CHEMISTRY METHOD 07/16/2024 11:27 AM [facility] eGFR 48(L) >=60 mL/min/1. 73m2 LAB CHEMISTRY METHOD 07/16/2024 11:27 AM [facility] Comment:Calculation based on the??Chronic Kidney Disease Epidemiology Collaboration (CKD-EPI) equation refit??without adjustment for race. BUN/Creatinine Ratio 19.9 LAB CHEMISTRY METHOD 07/16/2024 11:27 AM [facility] Calcium 8.5 8.5 - 10.5 mg/dL LAB CHEMISTRY METHOD 07/16/2024 11:27 AM [facility] Blood Venous blood specimen / Unknown Venipuncture / Unknown 07/16/2024 6:24 AM EDT 07/16/2024 9:59 AM EDT us Melecio Ying MD LAB BLOOD ORDERABLES Final Resu lt [facility] [address] [place] [address], [place] [phone] * (ABNORMAL) Complete blood count (07/16/2024 6:24 AM EDT) WBC 8.9 4.8 - 10.8 K/mcL LAB HEMETOLOGY METHOD 07/16/2024 10:19 AM EDT [facility] RBC 2.80(L) 4.50 - 5.50 M/mcL LAB HEMETOLOGY METHOD 07/16/2024 10:19 AM [facility] Hemoglobin 8.3(L) 13.5 - 17.5 g/dL LAB HEMETOLOGY METHOD 07/16/2024 10:19 AM T [facility] Hematocrit 26.0(L) 42.0 - 54.0 % LAB HEMETOLOGY METHOD 07/16/2024 10:19 AM T [facility] MCV 94.2 79.0 - 98.0 FL LAB HEMETOLOGY METHOD [facility] MCH 30.1 27.0 - 32.0 pcg LAB HEMETOLOGY METHOD 07/16/2024 10:19 AM EDT [facility] MCHC 31.9(L) 32.0 - 37.0 g/dL LAB HEMETOLOGY METHOD 07/16/2024 10:19 AM EDT [facility] RDW 14.1 11.0 - 15.0 % LAB HEMETOLOGY METHOD 07/16/2024 10:19 AM [facility] Platelets 333 130 - 400 K/mcL LAB HEMETOLOGY METHOD 07/16/2024 10:19 AM EDT [facility] MPV 9.7 7.0 - 11.0 FL LAB HEMETOLOGY METHOD 07/16/2024 10:19 AM EDT [facility] NRBC 0.0 <1.0 % LAB HEMETOLOGY METHOD 07/16/2024 10:19 AM EDT [facility] NRBC Absolute 0.00 <0.10 K/mcL LAB HEMETOLOGY METHOD 07/16/2024 10:19 AM EDT [facility] Blood Venous blood specimen / Unknown Venipuncture / Unknown 07/16/2024 6:24 AM EDT 07/16/2024 9:59 AM EDT us Melecio Ying MD LAB BLOOD ORDERABLES Final Resu lt [facility] [address] [place] [address], documented in this encounter Visit Diagnoses Diagnosis Acute kidney failure with tubular necrosis (CMS/HCC V24) documented in this encounter Care Teams Cheese Specialist Relationship Specialty Start Date End Date Melecio Ying MD [address] [place] [phone] PCP - General Internal Medicine 07/15/24 documented as of this encounter
--- OUTSIDE RECORDS SUMMARY | 2024-08-24 13:46 | XMS_ITS | Encounter Summary ---
Author Organization [facility] Address [address] [place] [address] Care Team Providers Care Associate Professor Of Anthropology Name Role Phone Melecio Ying MD Primary Care Provider [phone] Encounter Details Date Type Department Care Team (Late st Contact Info) Description 07/15/2024 Lab Requisition [facility] - Main Lab 299 [facility] [place] [phone] Melecio Ying MD [address] [place] [phone] Acute kidney failure with tubular necrosis (CMS/HCC [...] Description 08/26/2024 11:00 AM EDT Appointment [facility] [address] [phone] documented as of this encounter Procedures Procedure Name Priority Date/Time Associated Diagnosis Comments COMPLETE BLOOD COUNT Routine 07/15/2024 7:01 AM EDT Acute kidney failure with tubular necrosis (CMS/HCC) COMPREHENSIVE METABOLIC PANEL Routine 07/15/2024 7:01 AM EDT Acute kidney failure with tubular necrosis (CMS/HCC) documented in this encounter Results * (ABNORMAL) Comprehensive metabolic panel (07/15/2024 7:01 AM EDT) Sodium 129(L) 133 - 145 mmol/L LAB CHEMISTRY METHOD 07/15/2024 10:42 AM [facility] Potassium 4.4 3.5 - 5.5 mmol/L LAB CHEMISTRY METHOD 07/15/2024 10:42 AM [facility] Chloride 100 96 - 110 mmol/L LAB CHEMISTRY METHOD 07/15/2024 10:42 AM [facility] CO2 21 21 - 32 mmol/L LAB CHEMISTRY METHOD 07/15/2024 10:42 AM [facility] Anion Gap 8 3 - 11 LAB CHEMISTRY METHOD 07/15/2024 10:42 AM [facility] Glucose 148(H) 70 - 100 mg/dL LAB CHEMISTRY METHOD 07/15/2024 10:42 AM [facility] BUN 28(H) 5 - 25 mg/dL LAB CHEMISTRY METHOD 07/15/2024 10:42 AM [facility] Creatinine 1.36(H) 0.70 - 1.30 mg/dL LAB CHEMISTRY METHOD 07/15/2024 10:42 AM [facility] eGFR 50(L) >=60 mL/min/1. 73m2 LAB CHEMISTRY METHOD 07/15/2024 10:42 AM [facility] Comment:Calculation based on the??Chronic Kidney Disease Epidemiology Collaboration (CKD-EPI) equation refit??without adjustment for race. BUN/Creatinine Ratio 20.6 LAB CHEMISTRY METHOD 07/15/2024 10:42 AM [facility] Calcium 8.3(L) 8.5 - 10.5 mg/dL LAB CHEMISTRY METHOD 07/15/2024 10:42 AM [facility] AST (SGOT) 12 10 - 42 unit/L LAB CHEMISTRY METHOD 07/15/2024 10:42 AM EDT [facility] ALT (SGPT) 14 10 - 60 unit/L LAB CHEMISTRY METHOD 07/15/2024 10:42 AM EDT [facility] Alkaline Phosphatase 85 42 - 121 unit/L LAB CHEMISTRY METHOD 07/15/2024 10:42 AM [facility] Total Protein 6.2 6.0 - 8.0 g/dL LAB CHEMISTRY METHOD 07/15/2024 10:42 AM [facility] Albumin 2.5(L) 3.2 - 5.0 g/dL LAB CHEMISTRY METHOD 07/15/2024 10:42 AM [facility] Total Bilirubin 0.5 0.0 - 1.4 mg/dL LAB CHEMISTRY METHOD 07/15/2024 10:42 AM [facility] Blood Venous blood specimen / Unknown Venipuncture / Unknown 07/15/2024 7:01 AM EDT 07/15/2024 9:42 AM EDT us Melecio Ying MD LAB BLOOD ORDERABLES Final Resu lt [facility] [address] [place] [address], [place] [phone] * (ABNORMAL) Complete blood count (07/15/2024 7:01 AM EDT) WBC 8.9 4.8 - 10.8 K/mcL LAB HEMETOLOGY METHOD 07/15/2024 10:26 AM T [facility] RBC 2.70(L) 4.50 - 5.50 M/[facility] LAB HEMETOLOGY METHOD 07/15/2024 10:26 AM [facility] Hemoglobin 8.3(L) 13.5 - 17.5 g/dL LAB HEMETOLOGY METHOD 07/15/2024 10:26 AM EDT [facility] Hematocrit 25.0(L) 42.0 - 54.0 % LAB HEMETOLOGY METHOD 07/15/2024 10:26 AM EDT [facility] MCV 91.2 79.0 - 98.0 FL LAB HEMETOLOGY METHOD 07/15/2024 10:26 AM EDT [facility] MCH 30.3 27.0 - 32.0 pcg LAB HEMETOLOGY METHOD 07/15/2024 10:26 AM EDT [facility] MCHC 33.2 32.0 - 37.0 g/dL LAB HEMETOLOGY METHOD 07/15/2024 10:26 AM EDT [facility] RDW 14.0 11.0 - 15.0 % LAB HEMETOLOGY METHOD 07/15/2024 10:26 AM EDT [facility] Platelets 320 130 - 400 K/mcL LAB HEMETOLOGY METHOD 07/15/2024 10:26 AM EDT [facility] MPV 9.6 7.0 - 11.0 FL LAB HEMETOLOGY METHOD 07/15/2024 10:26 AM EDT [facility] NRBC 0.0 <1.0 % LAB HEMETOLOGY METHOD 07/15/2024 10:26 AM EDT [facility] NRBC Absolute 0.00 <0.10 K/mcL LAB HEMETOLOGY METHOD 07/15/2024 10:26 AM EDT [facility] Blood Venous blood specimen / Unknown Venipuncture / Unknown 07/15/2024 7:01 AM EDT 07/15/2024 9:42 AM EDT us Melecio Ying MD LAB BLOOD ORDERABLES Final Resu lt [facility] [address] [place] [address], [place] [phone] documented in this encounter Visit Diagnoses Diagnosis Acute kidney failure with tubular necrosis (CMS/HCC V24) documented in this encounter Care Teams Associate Professor Of Anthropology Relationship Specialty Start Date End Date Melecio Ying MD [address] [place] [phone] PCP - General Internal Medicine 07/15/24 documented as of this encounter
== END 2024-08-24 12:17 | disposition home or self-care (01) ==
LOC: HO.HVNA 12:16
PROVIDERS: Visit Provider Urology
DX: N39.0 Urinary tract infection, site not specified (principal); R31.9 Hematuria, unspecified; R10.9 Unspecified abdominal pain
CPT/HCPCS: 81001; 87086; 87088; 87186

== ENCOUNTER 2024-08-25 12:03 | Outpatient (AMB) | payer OTHER, SELFPAY ==
--- NOTE | 2024-08-25 12:03 | A.OFFPC_ITS ---
Intake Visit Reasons: Angella Wells 08/18 Coordinator Volunteer Services Required: No Accompanied by: Self / Same As Patient Allergies No Known Allergies [No Known Allergies*] Allergy (Verified 08/25/24 12:20) Medication List - Last Reconciled 08/25/24 by SHARIF Clayton acetaminophen 1,000 mg PO BID PRN amiodarone 200 mg PO DAILY 90 days amoxicillin 500 mg PO BID atorvastatin 40 mg PO BEDTIME blood sugar diagnostic (FreeStyle Lite Strips) to check blood sugars once a day blood-glucose meter (FreeStyle Lite Meter kit) USE DIRECTED blood-glucose meter (Accu-Chek Guide Glucose Meter) As directed cyanocobalamin (vitamin B-12) (Vitamin B-12) 1,000 mcg PO DAILY ferrous sulfate 324 mg PO DAILY finasteride 5 mg PO DAILY 90 days furosemide 20 mg PO DAILY magnesium oxide 400 mg PO DAILY metformin ER 1,000 mg PO BID methenamine hippurate 1 g PO DAILY 90 days silver nitrate applicators 75-25 % 1 appl topical DAILY solifenacin (Vesicare) 5 mg PO DAILY 30 days spironolactone 25 mg See Protocol PO DAILY tamsulosin 0.4 mg PO DAILY 90 days Tobacco use date assessed: 08/25/24 Fall risk assessment: No Falls in past year Last assessed Fall Risk: 08/25/24 Dental Screening Dental Screen Date: 08/25/24 Did you have a dental visit in the last 12 months?: No Did you have a dental problem in the last 6 months where you did not have access to dental care?: No Was dental information given to patient?: No HPI Angella Priscilla 08/18 HPI Details This is a medically necessary visit as the patient would typically be seen in the office, however, the patient is unable to come in the office so the visit was converted to an audiovisual, telephone visit format with patient's consent and request. Patient understands that this visit was in place of an in person visit and is aware of the risks of communicating via phone/computer and verbally consents. The patient is an 89-year-old male presenting with concerns of generalized weakness since his recent hospitalization. He requires assistance for mobility and reports decreased stamina. He has been treated for a urinary tract infection and has a known low iron level. There is ongoing discussion about a potential blood transfusion. The patient experiences black stools possibly related to iron intake and is noted to have hematuria impacting the use of Eliquis. Additionally, there is documented low stamina and decreased activity level with efforts to increase physical activity through walking. Coordination and communication issues exist among healthcare providers, as shown in the discussion regarding blood work and transfusion scheduling. The patient grandson, reports possibility of his [facility] nurse coordinating blood work for the patient to determine if he needs to have a blood transfusion. The number of the nurse given (Melani), call out to this number went unanswered. Patient's grandson, reports that he does not know exactly what is going on and his father has the information. [facility] Medical History (Updated 09/01/24 @ 08:05 by SHARIF Clayton) Anemia B12 deficiency BPH (benign prostatic hyperplasia) EtOH dependence PAF (paroxysmal atrial fibrillation) HFrEF (heart failure with reduced ejection fraction) Hematuria Abdominal pain Sepsis Urinary tract infection associated with cystostomy catheter CAD (coronary artery disease) Acute exacerbation of CHF (congestive heart failure) Hyperlipidemia Alcohol abuse Diabetes mellitus Hypertension Surgical History History of cardiac cath History of hernia repair Family History Father Liver problem Mother Past heart attack Brother Cancer Sister Cancer Social History Household Members: Family and Children Housing: House Do you presently have visiting nurse or other home services: Yes ([facility]NA & Grandson helps with care.) Unable to assess alcohol history related to: Unknown Alcohol intake: former Patient Tobacco Use Status: Former Tobacco user Tobacco use type: Cigarette (quit 57 years ago) e-Cigarette/Vaping Use: Never Used Second Hand Smoke Exposure: No service: Yes Current occupational status: retired 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 Current occupational exposures/hazards: No Cognitive needs: No Hearing needs: No Vision needs: Yes (reading glasses) Questionnaire Thrive Questionnaire Date Thrive assessed: 08/25/24 I am a: Parent/Caregiver What is your living situation today?: I have a steady place to live Within the past 12 months, did the food you bought not last and you didn't have the money to get more?: Never true Within the past 12 months, did you worry whether your food would run out before you got money to buy more?: Never true Do you have trouble paying for medicines?: No Do you have trouble getting transportation to medical appointments?: Yes Do you have trouble paying your heating and electricity bill?: No Do you have trouble taking care of your child, family member or friend?: No Do you have trouble with day-to-day activities such as bathing, preparing meals, shopping, managing finances, etc.?: No Are you currently unemployed and looking for a job?: No Are you interested in more education?: No Please select the resources that you would like help with: None Currently or been in a relationship where the following occur: I choose not to answer THRIVE Score: 1 AUDIT C Alcohol Use Questionnaire (AUDIT-C) 1. How often do you have a drink containing alcohol?: Never 3. How often do you have six or more drinks on one occasion?: Never Total Score: 0 Score Reviewed/Action Taken: No NEEL-7 AMB Questionnaire NEEL-7 Date NEEL - 7 assessed: 05/20/23 Source: Developed by Drs. Jeffrey Taylor, Marianne Russo, Radames Marino and colleagues, with an educational puja from [employer]. Review of Systems Const Details: - Constitutional: Reports low stamina and generalized weakness. - Respiratory: Denies shortness of breath, although oxygen dips with activity. - Gastrointestinal: Reports black stools. - Genitourinary: Reports hematuria. - Musculoskeletal: Reports difficulty with extended ambulation, reliant on walker. Denies headache(s) and Reports lethargy Eyes Denies loss of vision ENT Denies vertigo, Denies dizziness, Denies headache(s) and Denies sore throat Card Denies chest pain, Denies leg edema and Denies lightheadedness Resp Denies cough, Denies hemoptysis and Denies wheezing GI Denies abdominal pain, Reports melena (Patient is on iron supplements), Denies constipation, Denies diarrhea and Denies vomiting Reports hematuria (In the past, apixaban discontinued), Denies dysuria, Denies urinary frequency and Denies urinary urgency Musc Denies arthralgias, Denies joint swelling, Reports muscle weakness (Unable to walk long distance), Denies numbness and Denies tingling Neuro Denies behavioral changes, Denies vertigo, Denies dizziness, Denies headache(s), Denies loss of vision, Denies memory loss, Denies numbness and Denies tingling Psych Denies anxiety, Denies behavioral changes, Denies depression, Denies memory loss and Denies panic attacks Allen/Lymph Denies easy bleeding and Denies easy bruising Aller/Immun Denies wheezing Physical exam (Primary Care) Tobacco/Smoking Status: Tobacco use Status Tobacco use date assessed 08/25/24 08/25/24 12:09 Patient Tobacco Use Status Former Tobacco user 08/25/24 12:09 Tobacco use type Cigarette (quit 57 years ago 08/25/24 12:09 ) e-Cigarette/Vaping Use Never Used 08/25/24 12:09 Thrive Assessment: Date of Thrive Assessment Date Thrive assessed 08/25/24 08/25/24 12:09 Currently or been in a relationship where the following occur: I choose not to answer Const Other: Telemedicine visit with real time audio video Received verbal consent given by patient for today's visit via telemedicine Physical examination is not performed as visit / consultation today is done over videoconference - Telehealth visit All physical findings indicated here, if present, are as per patient's and / or caregivers / proxy's report and visual inspection over videoconference, if appropriate or applicable Telehealth Telehealth Telehealth Platform: [facility] Location of provider rendering services: practice address Location of patient: address on file Patient Identification confirmed using: Name, : Yes Telehealth method: video Patient verbally consented to treatment: Yes Patient verbally consented to billing insurance company: Yes Patient informed of any privacy concerns related to visit: Yes Minutes spent on Phone/Video with Pt.: 26 Coding Level of Care Code Tele Est Pt Level 4 (52428) Diagnoses Hematuria, unspecified type R31.9 Hematuria type: unspecified type Chronic suprapubic catheter Z93.59 Current use of anticoagulant therapy Z79.01 Diabetes mellitus with coincident hypertension E11.9; I10 Hypertension, unspecified type I10 Hypertension type: unspecified Time Spent (min) 43 Assessment & Plan Assessment & Plan (1) Hematuria: Code(s): R31.9 - Hematuria, unspecified Category: Medical Qualifiers: Hematuria type: unspecified type Qualified Code(s): R31.9 - Hematuria, unspecified (2) Chronic suprapubic catheter: Code(s): Z93.59 - Other cystostomy status Category: Surgical (3) Current use of anticoagulant therapy: Code(s): Z79.01 - halfway (current) use of anticoagulants Category: Medical (4) Diabetes mellitus with coincident hypertension: Code(s): E11.9 - Type 2 diabetes mellitus without complications; I10 - Essential (primary) hypertension Category: Medical (5) Hypertension: Code(s): I10 - Essential (primary) hypertension Category: Medical Qualifiers: Hypertension type: unspecified Qualified Code(s): I10 - Essential (primary) hypertension Plan The plan includes ensuring effective coordination between the [facility] and [facility] for consistent medication and care management, particularly regarding iron supplementation and evaluating the necessity of a blood transfusion. Given the patient's weakness and oxygen saturation drops, strategies are focused on monitoring and gradual mobilization for improved stamina while continuing surveillance for hematuria and managing anticoagulation adjustments with Eliquis. The patient has upcoming cardiology and urology appointments to aid in addressing cardiovascular and urological health concerns contributing to his condition. The patient also reports dark colored stools, he is on iron supplement, but also had an incident of hematuria at the Nursing facility and his eliquis was placed on hold. Also, per grandson, there are talks of getting the patient blood transfusion, but he is not sure where or if he needs labs drawn. Encouraged the patient's grandson to have his father contact the office if there is a need for blood work or any other treatments that we can assist with. Given the visit was through telehealth and the patient main caregiver is not present to give needed information to proceed with any orders, will wait for updates from the patient's son. Patient was informed and verbally consented to the use of an ambient scribe for clinic note documentation during this visit.
--- OUTSIDE RECORDS SUMMARY | 2024-08-25 13:35 | XMS_ITS | Continuity of Care Document ---
Author Name [facility] Organization [facility] Care Team Providers Care [employer] Name Role Phone [facility] Unavailable Unavailable Problems Combined list of problems from Department of Defense and Veterans Affairs facilities. It does not include entries that were removed or entered in error. Problem Status Onset Date Problem Type Date of Resolution Comments Source AF - Atrial fibrillation Active Condition [place] CAD - Coronary Artery Disease ([facility] [id number]) Active Condition [place] CHF - Congestive Heart Failure ([facility] [id number]) Active Condition [place] Chronic kidney disease Active Condition [place] Diabetes Mellitus Type 2 ([facility] [id number]) Active Condition [place] Frail elderly Active Condition [facility] History of cardiac catheterization [facility] - Hypertension ([facility] [id number]) [facility] ([facility] [id number]) Active Condition [place] Ischemic congestive cardiomyopathy Active Condition [facility] D Long-term current use of anticoagulant Active Condition [facility] [place] [facility] Lower urinary tract symptoms due to benign prostatic hypertrophy Active Condition Apr 23, 2024 Entered By: JUVENTINO MARTIN Comment: urinary retention w SP cath [place] OA - Osteoarthritis ([facility] [id number]) [facility] Under care of multiple providers Active Condition Apr 28 Entered By: JUVENTINO MARTIN Comment: non [facility] PCP: Roopa Wilson [phone] : dual care note sent 04/28/24Dec 20, 2023 Entered By: RUKHSANA HANKINS Comment: Cardiology: Yosef Cuello [phone] Dec 20, 2023 Entered By: ROBIN FU Comment: Optometry: Randall Blake [phone] Apr 23, 2024 Entered By: JUVENTINO MARTIN Comment: [facility]: fax# [phone] [facility] Diagnosis: ICD-10-CM N18.9 [...] for assistance with personal care Active Diagnosis [facility] Diagnosis: ICD-10-CM I10 Essential (primary) hypertension Active Diagnosis [place] Medications Combined list of outpatient medications from [...] DAILY NEEDED FOR PAIN ORAL ACTIVE 04/28/2025 [id number] CORY PEREZ 2024 100 [facility] AMIODARONE HCL 200MG TAB TAKE ONE TABLET BY MOUTH ONCE DAILY FOR VENTRICU LAR FIBRILLA TION ORAL ACTIVE 04/28/2025 [id number] 5 [place] [address] [facility] APIXABAN 5MG TAB TAKE ONE-HALF TABLET BY MOUTH EVERY 12 HOURS FOR ATRIAL FIBRILLA TION ORAL ACTIVE 05/19/2025 [id number] 5 [place] [address] [facility] APIXABAN 5MG TAB TAKE ONE TABLET BY MOUTH EVERY 12 HOURS FOR ATRIAL FIBRILLA TION ORAL DISCONT INUED (EDIT) 04/28/2025 [id number] 5 [place] [address] 180 [facility] APIXABAN 5MG TAB TAKE ONE TABLET BY MOUTH EVERY 12 HOURS FOR ATRIAL FIBRILLA TION ORAL DISCONT INUED 05/05/2024 [id number] 4 STELEA,CA RMEN F 2023 180 [place] ATORVASTATI N [place] 40MG TAB TAKE ONE TABLET BY MOUTH AT BEDTIME FOR HIGH CHOLESTE ROL ORAL ACTIVE 04/28/2025 [id number] 5 DREAD CEBALLOS,[place] [address] 90 [facility] FINASTERIDE 5MG TAB TAKE ONE TABLET BY MOUTH ONCE DAILY FOR ENLARGED PROSTATE ORAL ACTIVE 04/28/2025 [id number] 5 DREAD CEBALLOS,[place] [address] 90 [facility] FUROSEMIDE 20MG TAB TAKE ONE TABLET BY MOUTH ONCE DAILY TO REMOVE FLUID/CO NTROL BLOOD PRESSURE ORAL ACTIVE 04/28/2025 [id number] 5 DREAD CEBALLOS,CYN [place] [address] 90 [facility] METFORMIN HCL 500MG 24HR TAB,SA TAKE TWO TABLETS BY MOUTH TWICE DAILY FOR TYPE 2 DIABETES MELLITUS ORAL ACTIVE 04/28/2025 [id number] 5 DREAD SAMUELY,[place] [address] 360 [facility] METHENAMINE HIPPURATE 1GM TAB TAKE ONE TABLET BY MOUTH ONCE DAILY ORAL ACTIVE DREAD SAMUELY,[place] [address] [facility] SOLIFENACIN SUCCINATE 5MG TAB TAKE ONE TABLET BY MOUTH ONCE DAILY FOR OVERACTI VE BLADDER ORAL ACTIVE 04/28/2025 [id number] 5 DREAD SAMUELY,[place]NTH [place] [address] 90 [facility] SPIRONOLACT ONE 25MG TAB TAKE ONE TABLET BY MOUTH ONCE DAILY FOR HEART FAILURE ORAL ACTIVE 04/28/2025 [id number] 5 DREAD SAMUELY,[place] [address] 90 [facility] TAMSULOSIN HCL 0.4MG CAP TAKE ONE CAPSULE BY MOUTH ONCE DAILY FOR ENLARGED PROSTATE ORAL ACTIVE 04/28/2025 [id number] 5 DREAD CEBALLOS,[place] [address] 90 [facility] Immunizations Combined list of available immunizations from the Department of Defense and [facility] Affairs facilities. Immunization Series Date Given Administered By Site Reaction Lot Number CVX Code Drug Appliance Tester Status Comments Source PNEUMOCOCCAL CONJUGATE PCV20, POLYSACCHARID E [id number] CONJUGATE, ADJUVANT, PF 2024 LISA VIVAS LEFT DELTO ID [id number] 216 complet ed [facility] RSV, RECOMBINANT, PROTEIN SUBUNIT RSVPREF3, ADJUVANT RECONSTITUTED , 0.5 ML, PF 2024 LISA VIVAS LEFT DELTO ID [id number] 303 complet ed [facility] COVID-19 (PFIZER), MRNA, LNP-S, PF, EMELINA-SUCROSE, 30 MCG/0.3 ML (AGES 12+ YEARS) 2023 309 complet ed HISTORICA L INFORMATI ON - FROM PATIENT'S RECALL, [facility] INFLUENZA, UNSPECIFIED FORMULATION 2023 88 complet ed HISTORICA L INFORMATI ON - FROM PATIENT'S RECALL, [facility] COVID-19 (PFIZER), MRNA, LNP-S, BIVALENT, PF, 30 MCG/0.3 ML DOSE 1 2022 300 complet ed HISTORICA L INFORMATI ON - FROM OTHER PROVIDER, noted in [facility] medical record [facility] COVID-19 ([email or web address]), MRNA, LNP-S, BIVALENT, PF, 30 MCG/0.3 ML DOSE 1 2021 300 complet ed HISTORICA L INFORMATI ON - FROM OTHER PROVIDER, noted in [facility] medical record [facility] COVID-19 ([email or web address]), MRNA, LNP-S, PF, EMELINA-SUCROSE, 30 MCG/0.3 ML (AGES 12+ YEARS) 1 2021 309 complet ed HISTORICA L INFORMATI ON - FROM OTHER PROVIDER, noted in [facility] medical record [facility] COVID-19 ([email or web address]), MRNA, LNP-S, PF, 30 MCG/0.3 ML DOSE 1 2020 208 complet ed HISTORICA L INFORMATI ON - FROM OTHER PROVIDER, noted in [facility] medical record [facility] COVID-19 ([email or web address]), MRNA, LNP-S, BIVALENT, PF, 30 MCG/0.3 ML DOSE 1 2020 300 complet ed HISTORICA L INFORMATI ON - FROM OTHER PROVIDER, noted in [facility] medical record [facility] COVID-19 (PFIZER), MRNA, LNP-S, PF, 30 MCG/0.3 ML DOSE 1 2020 208 complet ed HISTORICA L INFORMATI ON - FROM OTHER PROVIDER, noted in [facility] medical record [facility] ZOSTER LIVE 2011 121 complet ed HISTORICA L INFORMATI ON - FROM PATIENT'S WRITTEN RECORD, [facility] Results Combined list of recent chemistry, [...] Apr 27, 2024 03:55 PM Reporting Lab: [address] [address] Performing Lab: [facility] [address] [facility] [address] [facility] BASIC METABOLIC PANEL (non-fast ing) GLUCOSE [MASS/VOLUM E] IN SERUM OR PLASMA 285 mg/dL 65 - 100 05/15 H Specimen Type: SERUM No comment entered. Ordering Provider: JUVENTINO FRIEDMAN Report Released Date/Time: Apr 27, 2024 03:55 PM Reporting Lab: [address] [address] Performing Lab: [address] [address] [facility] BASIC METABOLIC PANEL (non-fast ing) SODIUM [MOLES/VOLU ME] IN SERUM OR PLASMA 130 mmol/L 135 - 145 05/15 L Specimen Type: SERUM No comment entered. Ordering Provider: JUVENTINO FRIEDMAN Report Released Date/Time: Apr 27, 2024 03:55 PM Reporting Lab: [address] [address] Performing Lab: [address] [address] [facility] BASIC METABOLIC PANEL (non-fast ing) POTASSIUM [MOLES/VOLU ME] IN SERUM OR PLASMA 4.9 mmol/L 3.5 - 5.0 05/15 Specimen Type: SERUM No comment entered. Ordering Provider: JUVENTINO FRIEDMAN Report Released Date/Time: Apr 27, 2024 03:55 PM Reporting Lab: [facility]RUN[facility] HOSPITALTRN [facility]USE[facility] [address] [facility] [address] Performing Lab: [facility]ITALRE[facility]ERN [facility]ITALUSE[facility] [address] [facility] [address] [facility]ITALREVER[facility] CENTERN [facility] BASIC METABOLIC PANEL (non-fast ing) CHLORIDE [MOLES/VOLU ME] IN SERUM OR PLASMA 96 mmol/L 100 - 110 05/15 L Specimen Type: SERUM No comment entered. Ordering Provider: JUVENTINO FRIEDMAN Report Released Date/Time: Apr 27, 2024 03:55 PM Reporting Lab: [facility] [address] [facility] [address] Performing Lab: [facility] [address] [address] [facility] BASIC METABOLIC PANEL (non-fast ing) CARBON DIOXIDE, TOTAL [MOLES/VOLU ME] IN SERUM OR PLASMA 23 meq/L 20 - 30 05/15 Specimen Type: SERUM No comment entered. Ordering Provider: JUVENTINO FRIEDMAN Report Released Date/Time: Apr 27, 2024 03:55 PM Reporting Lab: [facility] [address] [facility] [address] Performing Lab: [facility]ITALRE[facility]ERN [address] [address] [facility] BASIC METABOLIC PANEL (non-fast ing) CREATININE [MASS/VOLUM E] IN SERUM OR PLASMA 1.51 mg/dL 0.50 - 1.40 05/15 H Specimen Type: SERUM No comment entered. Ordering Provider: JUVENTINO FRIEDMAN Report Released Date/Time: Apr 27, 2024 03:55 PM Reporting Lab: [facility]ITALRUNIV[facility] WOM[facility]S HOSPITALTRN [facility]ITALUSE[facility] [address] [facility] [address] Performing Lab: [facility]ITALREVERGREEN [facility] CENTERN [facility] HOSPITALUSE[address] [address] [facility] BASIC METABOLIC PANEL (non-fast ing) GLOMERULAR FILTRATION RATE/1.73 SQ M.PREDICTED [VOLUME RATE/AREA] IN SERUM, PLASMA OR BLOOD BY CREATININE- BASED FORMULA (CKD-EPI 2020) 44 mL/min 60 05/15 L Specimen Type: SERUM No comment entered. Ordering Provider: JUVENTINO FRIEDMAN Report Released Date/Time: Apr 27, 2024 03:55 PM Reporting Lab: [facility]ITALRUNIV[facility] HOSPITALTRN [place] [address] [address] Performing Lab: [place] [facility] [place] [facility] [address] [facility] [address] [facility]ITALRUNIV[facility] HOSPITALTRN [place] [facility] BNP (Natriure tic Peptide Brain) NATRIURETIC PEPTIDE B [MASS/VOLUM E] IN SERUM OR PLASMA 143 pg/mL 10 - 100 05/15 H Specimen Type: PLASMA No comment entered. Ordering Provider: JUVENTINO FRIEDMAN Report Released Date/Time: Apr 27, 2024 04:00 PM Reporting Lab: [facility]ITALRUNIV[facility] HOSPITALTRN [place] [address] [address] Performing Lab: [facility]ITALRL W[facility] [place] [address] [address] [facility]ITALUSE [facility] CALCIUM CALCIUM [MASS/VOLUM E] IN SERUM OR PLASMA 8.8 mg/dL 8.5 - 10.2 05/15 Specimen Type: SERUM No comment entered. Ordering Provider: JUVENTINO FRIEDMAN Report Released Date/Time: Apr 28, 2024 02:23 PM Reporting Lab: [facility]ITALRUNIV[facility] HOSPITALTRN [place] [address] [address] Performing Lab: [facility]ITALRL TRN [place] [address] [address] [facility] MAS[facility]SE [facility] CBC AND DIFF (AUTO) LEUKOCYTES [#/VOLUME] IN BLOOD BY AUTOMATED COUNT 14.22 10*3/u L 4.50 - 11.00 05/15 H Specimen Type: BLOOD No comment entered. Ordering Provider: JUVENTINO FRIEDMAN Report Released Date/Time: Apr 27, 2024 03:55 PM Reporting Lab: [facility]ITALRUN[facility]ITALTRN [place] [facility] [address] [facility] [address] Performing Lab: [facility]ITALRL [facility] [place] [facility] [address] [facility] [address] [facility] [place] [facility] CBC AND DIFF (AUTO) ERYTHROCYTE S [#/VOLUME] IN BLOOD BY AUTOMATED COUNT 3.45 10*6/u L 4.23 - 5.66 05/15 L Specimen Type: BLOOD No comment entered. Ordering Provider: JUVENTINO FRIEDMAN Report Released Date/Time: Apr 27, 2024 03:55 PM Reporting Lab: [facility] [place] [facility] [address] [facility] [address] Performing Lab: [facility] [place] [facility] [address] [facility] [address] [facility] [place] [facility] CBC AND DIFF (AUTO) HEMOGLOBIN [MASS/VOLUM E] IN BLOOD 10.7 g/dL 12.8 - 17 05/15 L Specimen Type: BLOOD No comment entered. Ordering Provider: JUVENTINO FRIEDMAN Report Released Date/Time: Apr 27, 2024 03:55 PM Reporting Lab: [facility]ITAL[facility] [place] [address] [address] Performing Lab: [facility] [place] [facility] [address] [facility] [address] [facility]ITALRL TR[facility] [place] [facility] CBC AND DIFF (AUTO) HEMATOCRIT [VOLUME FRACTION] OF BLOOD BY AUTOMATED COUNT 32.4 39.2 - 50.4 05/15 L Specimen Type: BLOOD No comment entered. Ordering Provider: JUVENTINO FRIEDMAN Report Released Date/Time: Apr 27, 2024 03:55 PM Reporting Lab: [facility] [place] [facility] [address] [facility] [address] Performing Lab: [place] [facility] [place] [address] [address] [facility] [place] [facility] CBC AND DIFF (AUTO) MCV [ENTITIC VOLUME] BY AUTOMATED COUNT 93.9 fL 82 - 99 05/15 Specimen Type: BLOOD No comment entered. Ordering Provider: JUVENTINO FRIEDMAN Report Released Date/Time: Apr 27, 2024 03:55 PM Reporting Lab: [facility] [place] [facility] [address] [facility] [address] Performing Lab: [facility] [place] [facility] [address] [facility] [address] [facility] [place] [facility] CBC AND DIFF (AUTO) MCHC [MASS/VOLUM E] BY AUTOMATED COUNT 33.0 g/dL 30.8 - 35.1 05/15 Specimen Type: BLOOD No comment entered. Ordering Provider: JUVENTINO FRIEDMAN Report Released Date/Time: Apr 27, 2024 03:55 PM Reporting Lab: [facility] [place] [facility] [address] [facility] [address] Performing Lab: [facility] [place] [facility] [address] [facility] [address] [facility] [place] [facility] CBC AND DIFF (AUTO) PLATELETS [#/VOLUME] IN BLOOD BY AUTOMATED COUNT 311 10*3/u L 140 - 360 05/15 Specimen Type: BLOOD No comment entered. Ordering Provider: JUVENTINO FRIEDMAN Report Released Date/Time: Apr 27, 2024 03:55 PM Reporting Lab: [facility] [place] [facility] [address] [facility] [address] Performing Lab: [facility] [place] [facility] [address] [facility] [address] [facility] [place] [facility] CBC AND DIFF (AUTO) ERYTHROCYTE DISTRIBUTIO N WIDTH [RATIO] BY AUTOMATED COUNT 13.2 12.0 - 16.0 05/15 Specimen Type: BLOOD No comment entered. Ordering Provider: JUVENTINO FRIEDMAN Report Released Date/Time: Apr 27, 2024 03:55 PM Reporting Lab: [facility] [place] [facility] [address] [facility] [address] Performing Lab: [facility] [place] [facility] [address] [facility] [address] [facility] [place] [facility] CBC AND DIFF (AUTO) MONOCYTES [#/VOLUME] IN BLOOD BY AUTOMATED COUNT 0.89 10*3/u L 0.30 - 1.10 05/15 Specimen Type: BLOOD No comment entered. Ordering Provider: JUVENTINO FRIEDMAN Report Released Date/Time: Apr 27, 2024 03:55 PM Reporting Lab: [facility] [place] [address] [address] Performing Lab: [facility] [place] [facility] [address] [facility] [address] [facility] [place] [facility] CBC AND DIFF (AUTO) MCH [ENTITIC MASS] BY AUTOMATED COUNT 31.0 pg 26.2 - 32.6 05/15 Specimen Type: BLOOD No comment entered. Ordering Provider: JUVENTINO FRIEDMAN Report Released Date/Time: Apr 27, 2024 03:55 PM Reporting Lab: [facility] [place] [address] [address] Performing Lab: [facility] [place] [address] [address] [facility] [place] [facility] CBC AND DIFF (AUTO) NEUTROPHILS /100 LEUKOCYTES IN BLOOD BY AUTOMATED COUNT 83.8 43.7 - 75.8 05/15 H Specimen Type: BLOOD No comment entered. Ordering Provider: JUVENTINO FRIEDMAN Report Released Date/Time: Apr 27, 2024 03:55 PM Reporting Lab: [facility] [place] [address] [address] Performing Lab: [facility] [place] [address] [address] [facility] [place] [facility] CBC AND DIFF (AUTO) LYMPHOCYTES /100 LEUKOCYTES IN BLOOD BY AUTOMATED COUNT 8.2 14.0 - 42.3 05/15 L Specimen Type: BLOOD No comment entered. Ordering Provider: JUVENTINO FRIEDMAN Report Released Date/Time: Apr 27, 2024 03:55 PM Reporting Lab: [facility] [place] [address] [address] Performing Lab: [facility] [place] [facility] [address] [facility] [address] [facility] [place] [facility] CBC AND DIFF (AUTO) MONOCYTES/1 00 LEUKOCYTES IN BLOOD BY AUTOMATED COUNT 6.3 5.1 - 13.7 05/15 Specimen Type: BLOOD No comment entered. Ordering Provider: JUVENTINO FRIEDMAN Report Released Date/Time: Apr 27, 2024 03:55 PM Reporting Lab: [facility] [place] [facility] [address] [facility] [address] Performing Lab: [facility] [place] [facility] [address] [facility] [address] [facility] [place] [facility] CBC AND DIFF (AUTO) EOSINOPHILS /100 LEUKOCYTES IN BLOOD BY AUTOMATED COUNT 0.7 0.4 - 6.8 05/15 Specimen Type: BLOOD No comment entered. Ordering Provider: JUVENTINO FRIEDMAN Report Released Date/Time: Apr 27, 2024 03:55 PM Reporting Lab: [facility] [place] [facility] [address] [facility] [address] Performing Lab: [facility] [facility] [address] [facility] [address] [facility] [place] [facility] CBC AND DIFF (AUTO) BASOPHILS/1 00 LEUKOCYTES IN BLOOD BY AUTOMATED COUNT 0.3 0.1 - 2.0 05/15 Specimen Type: BLOOD No comment entered. Ordering Provider: JUVENTINO FRIEDMAN Report Released Date/Time: Apr 27, 2024 03:55 PM Reporting Lab: [facility] [place] [facility] [address] [facility] [address] Performing Lab: [facility] [place] [facility] [address] [facility] [address] [facility] [place] [facility] CBC AND DIFF (AUTO) NEUTROPHILS [#/VOLUME] IN BLOOD BY AUTOMATED COUNT 11.92 10*3/u L 2.20 - 7.60 05/15 H Specimen Type: BLOOD No comment entered. Ordering Provider: JUVENTINO FRIEDMAN Report Released Date/Time: Apr 27, 2024 03:55 PM Reporting Lab: [facility] [place] [facility] [address] [facility] [address] Performing Lab: [facility] [place] [facility] [address] [facility] [address] [facility] [place] [facility] CBC AND DIFF (AUTO) LYMPHOCYTES [#/VOLUME] IN BLOOD BY AUTOMATED COUNT 1.17 10*3/u L 1.00 - 3.20 05/15 Specimen Type: BLOOD No comment entered. Ordering Provider: JUVENTINO FRIEDMAN Report Released Date/Time: Apr 27, 2024 03:55 PM Reporting Lab: [facility] [place] [facility] [address] [facility] [address] Performing Lab: [facility] [place] [facility] [address] [facility] [address] [facility] [place] [facility] CBC AND DIFF (AUTO) EOSINOPHILS [#/VOLUME] IN BLOOD BY AUTOMATED COUNT 0.10 10*3/u L 0.03 - 0.44 05/15 Specimen Type: BLOOD No comment entered. Ordering Provider: JUVENTINO FRIEDMAN Report Released Date/Time: Apr 27, 2024 03:55 PM Reporting Lab: [facility] [place] [facility] [address] [facility] [address] Performing Lab: [facility] [place] [facility] [address] [facility] [address] [facility] [place] [facility] CBC AND DIFF (AUTO) BASOPHILS [#/VOLUME] IN BLOOD BY AUTOMATED COUNT 0.04 10*3/u L 0.01 - 0.13 05/15 Specimen Type: BLOOD No comment entered. Ordering Provider: JUVENTINO FRIEDMAN Report Released Date/Time: Apr 27, 2024 03:55 PM Reporting Lab: [facility] [place] [facility] [address] [facility] [address] Performing Lab: [facility] [place] [address] [address] [facility] [place] [facility] CBC AND DIFF (AUTO) IMMATURE GRANULOCYTE S/100 LEUKOCYTES IN BLOOD BY AUTOMATED COUNT 0.7 0.0 - 0.7 05/15 Specimen Type: BLOOD No comment entered. Ordering Provider: JUVENTINO FRIEDMAN Report Released Date/Time: Apr 27, 2024 03:55 PM Reporting Lab: [facility] [address] [facility] [address] Performing Lab: [facility] [address] [address] [facility] CBC AND DIFF (AUTO) IMMATURE GRANULOCYTE S [#/VOLUME] IN BLOOD 0.10 10*3/u L 0.00 - 0.06 05/15 H Specimen Type: BLOOD No comment entered. Ordering Provider: JUVENTINO FRIEDMAN Report Released Date/Time: Apr 27, 2024 03:55 PM Reporting Lab: [facility]ITALRUN[facility] HOSPITALTRN [facility]ITALUSE[address] [address] Performing Lab: [facility] [address] [address] [facility]ITALRUN[facility] HOSPITALTRN [facility]PITALUSE [facility] CBC AND DIFF (AUTO) NRBC % 0.0 0.0 - 0.0 05/15 Specimen Type: BLOOD No comment entered. Ordering Provider: JUVENTINO FRIEDMAN Report Released Date/Time: Apr 27, 2024 03:55 PM Reporting Lab: [facility]ITALR [facility]ITAL[facility] [address] [address] Performing Lab: [facility]ITALCH[facility]ETS [address] [address] [facility]PITALRL TRN [facility]ITALCHUSE [facility] CBC AND DIFF (AUTO) NRBC, ABS 0.00 10*3/u L 0.00 - 0.00 05/15 Specimen Type: BLOOD No comment entered. Ordering Provider: JUVENTINO FRIEDMAN Report Released Date/Time: Apr 27, 2024 03:55 PM Reporting Lab: [facility]ITALR [facility]ITALUSETS [address] [address] Performing [facility]: [facility] [address] [facility] [address] [facility] HEMOGLOBI N A1C PANEL HEMOGLOBIN A1C/HEMOGLO [...] Apr 27, 2024 03:55 PM Reporting Lab: [address] [address] Performing Lab: [address] [address] [facility] LIPID PANEL FASTING CHOLESTEROL [MASS/VOLUM E] IN SERUM OR PLASMA 101 mg/dL 05/15 Specimen Type: SERUM No comment entered. Ordering Provider: JUVENTINO FRIEDMAN Report Released Date/Time: Apr 27, 2024 03:55 PM Reporting Lab: [address] [address] Performing Lab: [address] [address] [facility] LIPID PANEL FASTING TRIGLYCERID E [MASS/VOLUM E] IN SERUM OR PLASMA 87 mg/dL 0 - 150 05/15 Specimen Type: SERUM No comment entered. Ordering Provider: JUVENTINO FRIEDMAN Report Released Date/Time: Apr 27, 2024 03:55 PM Reporting Lab: [address] [address] Performing Lab: [address] [address] [facility] LIPID PANEL FASTING CHOLESTEROL IN LDL [MASS/VOLUM E] IN SERUM OR PLASMA BY CALCULATION 45 mg/dL 0 - 129 05/15 Specimen Type: SERUM No comment entered. Ordering Provider: JUVENTINO FRIEDMAN Report Released Date/Time: Apr 27, 2024 03:55 PM Reporting Lab: [facility] [place] [facility] [address] [facility] [address] Performing Lab: [facility] [address] [address] [facility] LIPID PANEL FASTING CHOLESTEROL .TOTAL/CHOL ESTEROL IN HDL [MASS RATIO] IN SERUM OR PLASMA 2.6 05/15 Specimen Type: SERUM No comment entered. Ordering Provider: JUVENTINO FRIEDMAN Report Released Date/Time: Apr 27, 2024 03:55 PM Reporting Lab: [facility]ITALRUNIV[facility] WOMEN'S HOSPITALTRN [facility]ITALUSE[address] [address] Performing Lab: [facility]ITALRL TRN [facility]ITALUSETS [address] [address] [facility]PITALREVERGREEN MEDICAL CENTERN [facility] HOSPITALUSE [facility] LIPID PANEL FASTING CHOLESTEROL IN HDL [MASS/VOLUM E] IN SERUM OR PLASMA 39 mg/dL 40 - 60 05/15 L Specimen Type: SERUM No comment entered. Ordering Provider: JUVENTINO FRIEDMAN Report Released Date/Time: Apr 27, 2024 03:55 PM Reporting Lab: [facility] [place] [address] [address] Performing Lab: [facility]ITAL[facility] [address] [address] [facility]PITALRUNIVERSITY [facility] WOM[facility]S HOSPITALTRN MASSUSE [facility] LIVER FUNCTION PROTEIN [MASS/VOLUM E] IN SERUM OR PLASMA 7.2 g/dL 6.0 - 8.3 05/15 Specimen Type: SERUM No comment entered. Ordering Provider: JUVENTINO FRIEDMAN Report Released Date/Time: Apr 27, 2024 03:55 PM Reporting Lab: [facility]ITALRL [place] [address] [address] Performing Lab: [facility]ITALUSE[address] [address] [place] [facility] [place] [facility] LIVER FUNCTION ALBUMIN [MASS/VOLUM E] IN SERUM OR PLASMA 3.3 g/dL 3.5 - 5.0 05/15 L Specimen Type: SERUM No comment entered. Ordering Provider: JUVENTINO FRIEDMAN Report Released Date/Time: Apr 27, 2024 03:55 PM Reporting Lab: [facility] [place] [facility] [address] [facility] [address] Performing Lab: [facility] [place] [facility] [address] [facility] [address] [place] [facility] [place] [place] [facility] LIVER FUNCTION ALKALINE PHOSPHATASE [ENZYMATIC ACTIVITY/VO LUME] IN SERUM OR PLASMA 92 U/L 40 - 150 05/15 Specimen Type: SERUM No comment entered. Ordering Provider: JUVENTINO FRIEDMAN Report Released Date/Time: Apr 27, 2024 03:55 PM Reporting Lab: [facility] [facility] [address] [facility] [address] Performing Lab: [facility] [place] [facility] [address] [facility] [address] [facility] [place] [place] [facility] LIVER FUNCTION ASPARTATE AMINOTRANSF ERASE [ENZYMATIC ACTIVITY/VO LUME] IN SERUM OR PLASMA 10 U/L 5 - 34 05/15 Specimen Type: SERUM No comment entered. Ordering Provider: JUVENTINO FRIEDMAN Report Released Date/Time: Apr 27, 2024 03:55 PM Reporting Lab: [facility] [facility] [address] [facility] [address] Performing Lab: [facility] [place] [facility] [address] [facility] [address] [facility] [place] [facility] LIVER FUNCTION ALANINE AMINOTRANSF ERASE [ENZYMATIC ACTIVITY/VO LUME] IN SERUM OR PLASMA 11 U/L 05/15 Specimen Type: SERUM No comment entered. Ordering Provider: JUVENTINO FRIEDMAN Report Released Date/Time: Apr 27, 2024 03:55 PM Reporting Lab: [facility] [place] [facility] [address] [facility] [address] Performing Lab: [facility] [place] [facility] [address] [facility] [address] [facility]OSPITALRL W[facility]N [place] [facility] LIVER FUNCTION BILIRUBIN.T OTAL [MASS/VOLUM E] IN SERUM OR PLASMA 0.5 mg/dL 0.2 - 1.2 05/15 Specimen Type: SERUM No comment entered. Ordering Provider: JUVENTINO FRIEDMAN Report Released Date/Time: Apr 27, 2024 03:55 PM Reporting Lab: [facility] [place] [facility] [address] [facility] [address] Performing Lab: [facility]ITAL[facility]ETS [address] [address] [facility]OSPITALRL TRN [facility]OSPITALUSE [facility] TSH THYROTROPIN [UNITS/VOLU ME] IN SERUM OR PLASMA 0.40 u[IU]/ mL 0.35 - 5.00 05/15 Specimen Type: SERUM No comment entered. Ordering Provider: JUVENTINO FRIEDMAN Report Released Date/Time: Apr 27, 2024 03:55 PM Reporting Lab: [facility] [place] [facility] [address] [facility] [address] Performing Lab: [facility] [place] [address] [address] [facility]OSPITALRL TRN [facility]OSPITALUSE [facility] VITAMIN D (25-OH) 25-HYDROXYV ITAMIN D3 [MASS/VOLUM E] IN SERUM OR PLASMA 28 ng/mL 20 - 50 05/15 Specimen Type: SERUM No comment entered. Ordering Provider: JUVENTINO FRIEDMAN Report Released Date/Time: Apr 28, 2024 02:23 PM Reporting Lab: [facility] [place] [address] [address] Performing Lab: [facility] [place] [address] [address] [facility]OSPITALRL [facility]ATIONN [facility]ITALUSE [facility] Vital Signs Combined list of inpatient and [...] [facility] [place] [facility] En[facility] [id number] 08/18 [facility] [place] [facility] [place] En[facility] [id number] 11/15 [facility] [place] [place] En[facility] [id number] 11/15 [facility] [place] [place] [id number] 1.11/20 [facility] [place] [place] En[facility] [id number] 11/24 [facility] [place] [place] En[facility] [id number] 11/26 [facility] [place] [place] En[facility] [id number] 12/03 [facility] [place] [place] En[facility] [id number] [facility] [place] [facility] [facility] [place] Encounter [id number] 12/04 [facility] [place] [facility] [facility] [place] En[facility] [id number] 1.12/31 [facility] [place] [place] En[facility] [id number] 1.01/06 [facility] [place] [facility] OFFICE O/P NEW MOD 45 MIN [id number] Diagnos is: ICD-10- CM I10 Essenti al (primar y) hyperte nsion STELEA,CAR MEN F 01/15 [place] [facility] HC PRO PHONE CALL 5-10 MIN [id number] Diagnos is: ICD-10- CM I50.9 Heart failure , unspeci fied CASTILLO-MILTON TINEO 01/20 [facility] [place] En[facility] [id number] 01/27 [facility] [place] [place] En[facility] [id number] 01/27 [facility] [place] Encounter [id number] ANNA TANNER 01/29 [facility] [place] En[facility] [id number] 01/29 [facility] [place] Encounter [id number] 1.01/29 [facility] [place] [id number] 1.01/29 [facility] [place] [facility] PRO PHONE CALL 5-10 MIN [id number] 1BY. 39 Diagnos is: ICD-10- CM Z74.1 Need for assista nce with persona ITALO Whitman 01/29 [place] [facility] Out[facility] Encounter [id number] STELEA,CAR MEN F 02/03 [facility] [place] [facility] MTMS BY PHARM ADDL 15 MIN [id number] Diagnos is: ICD-10- CM I48.91 Unspeci fied atrial fibrill ation ELIANE CHUN ISJOSIAH J 02/05 [facility] Encounter [id number] 1.02/05 [facility] En[facility] [id number] 1.02/12 [facility] Encounter [id number] [facility] Encounter [id number] 1.02/20 [facility] Encounter [id number] [facility] Encounter [id number] [facility] [place] En[facility] [id number] [facility] [place] OT EVAL LOW COMPLEX 30 MIN [id number] 1. 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 Outpatient Encounter [id number] 1.03/11 [facility] [place] [facility] MTMS BY PHARM EST 15 MIN [id number] Diagnos is: ICD-10- CM Z51.81 Encount er for therape utic drug level monitor ELIANE Fuller 03/12 [facility] [place] [facility] RN E&M PLAN SVS, 15 MIN [id number] Diagnos is: ICD-10- CM I50.9 Heart failure , unspeci fied CASTILLO-MILTON TINEO 03/13 [facility] En[facility] [id number] 1.03/13 [facility] [place] [facility] RN CARE EA 15 MIN HH/HOSPICE [id number] 1. Diagnos is: ICD-10- CM I50.9 Heart failure , unspeci fied CARLOS ALBERTO VIVAS MAXIMILIAN 03/13 [facility] En[facility] [id number] [facility] Encounter [id number] 1.03/30 [facility] [place] [place] [facility] SELF CARE MNGMENT TRAINING [id number] 1. Diagnos is: ICD-10- CM R54 Age-rel ated physica l debilit y CARLOS ALBERTO VIVAS MAXIMILIAN 03/30 [facility] En[facility] [id number] 1.04/03 [facility] Encounter [id number] 1.04/03 [facility] Out[facility]counter [id number] 1. CARLOS ALBERTO VIVAS MAXIMILIAN 04/03 [facility] [place] [place] [facility] QNHP OL DIG ASSMT&MGMT 21+ [id number] Diagnos is: ICD-10- CM Z79.899 Other [place] t) drug therapy MIRI SAGE 04/06 [facility] En[facility] [id number] 04/07 [facility] Encounter [id number] 04/08 [facility] HHCP-SERV OF OT,EA 15 MIN [id number] Diagnos is: ICD-10- CM R26.9 Unspeci fied abnorma lities of gait and mobilit y VAZQUEZ,CAT HY L 04/16 [facility] CASE MANAGEMENT [id number] Diagnos is: ICD-10- CM Z65.9 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 tanstephan NaikSHELLEY 04/17 [facility] En[facility] [id number] [facility] Encounter [id number] 04/20 [facility] Out[facility] Encounter [id number] [facility] Out[facility] Encounter [id number] 04/23 [facility] SYNCH AUDIO-ONLY NEW MOD 45 [id number] Diagnos is: ICD-10- CM 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 JENNIFER-GRA DY,JUVENTINO 04/23 [facility] Out[facility] Encounter [id number] 04/23 [facility] Out[facility] Encounter [id number] Diagnos is: ICD-10- CM 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 69 Diagnos is: ICD-10- CM Z04.89 Encount er for examina tion and observa tion for oth reasons MATTELIANE PRATHER ISJOSIAH J 05/18 [facility] SYNCH AUDIO-ONLY EST LOW 20 [id number] Diagnos is: ICD-10- CM N18.9 Chronic kidney disease , unspeci fied JENNIFER-JASPREET DY,JUVENTINO 05/18 [facility] Out[facility] Encounter [id number] 05/22 [facility] Encounter [id number] 05/25 [facility] [place] 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 Outpatient Encounter [id number] 06/04 [facility] [place] [facility] SELF CARE MNGMENT TRAINING [id number] Diagnos is: ICD-10- CM N18.9 Chronic kidney disease , unspeci fied ALLSOP,CARLOS ALBERTO MAXIMILIAN 06/11 [facility] [place] [place] Outpatient Encounter [id number] [facility] [place] 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 Outpatient Encounter [id number] 07/07 [facility] Out[facility] Encounter [id number] 07/10 [facility] Out[facility] Encounter [id number] 07/13 [facility] Out[facility] Encounter [id number] 07/13 [facility] Out[facility] Encounter [id number] 08/04 [facility] Out[facility] Encounter [id number] 08/06 [facility] PH1 ASSMT&MGMT NQHP -30 [id number] Diagnos is: ICD-10- CM N18.9 Chronic kidney disease , unspeci karlaed CARLOS ALBERTO VIVAS 08/20 [facility] [place] Social History Combined list of available smoking, tobacco, and other social history from Department of Defense and Veterans Affairs facilities. 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 Additional future care activities may be listed in the Assessment and Plan section. Date/Time Care Activity Care Activity Detail Facili ty 08/16/2024 Laboratory - Features Editor ry Order HEMOGLOBIN A1C PANEL BLOOD (LAV-BLOOD) SP [facility] [place] [facility]
--- OUTSIDE RECORDS SUMMARY | 2024-08-25 13:36 | XMS_ITS | Encounter Summary ---
Author Name [facility] Organization [facility] Address [address] [place] [id number] Care Team Providers Care Assignment Desk Assistant Name Role Phone JUVENTINO MARTIN Primary Care Provider Unav ailable PIEDAD SHELLEY Unavailable Unavailable YESSENIA ARNOLD, ALAN Unavailable Unavailable DIANE SANTOS Unavailable Unavailable SAM, ARASELI Unavailable Unavailable WOODY PHIPPS Unavailable Unavailable LISA VIVAS Unavailable Unavailable BHARATI [...] PART A Apr 22, 2001 PART A [id number] JENIFER ANAYA PATIENT MEDICARE (WNR) MEDICARE (M) PART B Apr 22, 2001 PART B [id number] JENIFER ANAYA PATIENT [employer] [place] F May 11, 2008 PLANF [id number] JENIFER ANAYA PATIENT Selected Encounter This section includes the information on record at [place] for the Encounter. Date/Time Encounter Type Encounter Description Reason Provider Source August 20, 2024 11:16 AM PH1 ASSMT&MGMT NQHP 21-30 TELEPHONE [facility] ICD-10-CM N18.9 Chronic kidney disease, unspecified ALLSOP,LISA IHE Encounter Template Text not used by [place] Assessments - Encounter Diagnoses This section includes the primary and secondary diagnoses documented for the Encounter. Date/Time Primary/Secondary Diagnosis Diagnosis Name Provider Source August 20, 2024 11:16 AM PRIMARY Chronic kidney disease, unspecified ALLSOP,LISA [facility] [place] August 20, 2024 11:16 AM SECONDARY Age-related physical debility ALLSOP,LISA [facility] [place] [facility] August 20, 2024 11:16 AM SECONDARY Athscl heart disease of jamul coronary artery w/o ang pctrs ALLSOPMARIXALISA [facility] [place] [facility] August 20, 2024 11:16 AM SECONDARY Benign prostatic hyperplasia with lower urinary tract symp ALLSOP,LISA [facility] [place] [facility] August 20, 2024 11:16 AM SECONDARY Essential (primary) hypertension ALLSOP,LISA [facility] [place] [facility] August 20, 2024 11:16 AM SECONDARY Heart failure, unspecified ALLSOP,LISA [facility] [place] [facility] August 20, 2024 11:16 AM SECONDARY terminal 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 This section includes future appointments and [...] of theEncounter. The data comes from all [facility] facilities. Test Date/Time Test Type Test Details Facility Name Aug 16, 2024 12:00 AM Laboratory - Chemistry Order HEMOGLOBIN A1C PANEL BLOOD (LAV-BLOOD) [facility] Aug 16, 2024 12:00 AM Laboratory - Chemistry Order BASIC METABOLIC PANEL (non-fasting) BLOOD (SST-SERUM) [facility] Aug 16, 2024 12:00 AM Laboratory - Chemistry Order CBC AND DIFF (AUTO) BLOOD (LAV-BLOOD) [facility] Aug 16, 2024 12:00 AM Laboratory - Chemistry Order MICROALBUMIN CREATININE RATIO PANEL URINE (RANDOM) [facility] Encounter Notes: All associated encounter notes This section contains the clinical notes associated to the Encounter. Date/Time Encounter Note(s) Provider Source August 24, 2024 02:49 PM ADDENDUM: LOCAL TITLE: Addendum STANDARD TITLE: ADDENDUM DATE OF NOTE: AUGUST 24, 2024@14:49:48 ENTRY DATE: AUGUST 24, 2024@14:49:49 AUTHOR: MARGO MARTIN COSIGNER: URGENCY: STATUS: COMPLETED Grandson Ihasn contact [phone]: [address] Aldo Mora 08/25/24 11:30am changed to telehealth Ervin BARBER PLEASE SEND LAB ORDERS TO ERVIN BARBER [place] S[place] [facility] [place] /michell/ JUVENTINO MARTIN RN,MSN,BACTERIOLOGIST FOOD-C [facility] NURSE PRACTITIONER Signed: 08/24/2024 15:36 Receipt Acknowledged By: 08/25/2024 06:26 /es/ ARASELI VARGAS VISUAL DESIGNER Neva/[facility] 08/24/2024 17:13 /es/ WOODY PHIPPS [facility] GAS MAIN FITTER --- Original Document --- 08/24/24 [facility] INSTRUMENT MAKER AND REPAIRER PROGRESS NOTE: was seen for: ( )routine visit (x) problem visit Identified by name, , address and facial recognition VV Ready: Yes [x] No [ ] Chief complaint:Pt is a 89 seen for follow up of medical problems as noted below. HPI:89 yo M seen for post hospital f/u. [place] [facility] [place] 07/10/24-07/14/24 Followed by [facility] 07/14/24-08/18/24. I was notified by A of dc on 08/19/34 w questions on medication rec. Patients previous non VA PCP Dr. Wilson retired and he is to see new PCP Dr. Morgan españa [place] [facility], however is looking to have a video visit as grandsanna Sagastume is not able to take by himself, and he is worried about patients safety d/t high fall risk. Awaiting call back from PCP office. At visit today was Melani RN from [facility], daughter Latisha, grandsanna Sagastume, and another family member. Patients keyshawn Sagastume whom is also a is dealing w his own medical needs and has some limitations surrounding his grandfathers care. VA will do a casemix tool to determine if patient is eligable for any additional [employer] hours to assist w ADL/IADL needs. Appears Angella Bowen referred patient to [facility] for blood transfusion. Patient and family wishes to have this done via [facility] if this is needed. Patient feels he has pill burden with the change of his meds. Explained repeat labs will be obtained to determine what is needed. Patients has had hematuria and Dr. Cuello and Dr. Lea are following. Rosalia is currently on hold and UA was obtained per urology today. PCP: Dr. Aldo Mora 08/25/24 11:30am [phone] urology: Dr. Lea [phone] cardiology: Dr Cuello following q 6 months Optometry: Randall Blake [phone] [facility] pharmacy: [facility]vin Mueller [facility] 1- 2x weekly - Jane [phone]/ [phone] PMH: Active problems - Computerized Problem List is the source for the followin. Chronic kidney disease 2. Ischemic congestive cardiomyopathy 3. Lower urinary tract symptoms due to benign prostatic hypertrophy urinary retention w SP cath 4. History of cardiac catheterization 5. Frail elderly 6. Long-term current use of anticoagulant 7. CHF - Congestive Heart Failure ([facility] [id number]) 8. HTN - Hypertension ([facility] [id number]) 9. Hyperlipidemia ([facility] [id number]) 10. Diabetes Mellitus Type 2 ([facility] [id number]) 11. CAD - Coronary Artery Disease ([facility] [id number]) 12. OA - Osteoarthritis ([facility] [id number]) 13. AF - Atrial fibrillation 14. Under care of multiple providers [facility] PCP: Dimitri Wilson [phone]: dual care note sent 04/28/24 Cardiology: Yosef Cuello [phone] Optometry: Randall Blake [phone] [facility]: fax# [phone] Allergies: Patient has answered NKA The following VA and Non-PR meds were reconciled with patient: Active and Recently Outpatient Medications (excluding Supplies): OUTPT ACETAMINOPHEN 500MG TAB (Status = Active) TAKE TWO TABLETS BY MOUTH TWICE DAILY NEEDED FOR PAIN Rx# [id number] Last Released: 05/01/24 Qty/Days Supply: Rx Expiration Date: 04/28/25 Refills Remainin Indication: FOR PAIN OUTPT AMIODARONE HCL 200MG TAB (Status = Active) TAKE ONE TABLET BY MOUTH ONCE DAILY FOR VENTRICULAR FIBRILLATION Rx# [id number] Last Released: 06/17/24 Qty/Days Supply: Rx Expiration Date: 04/28/25 Refills Remainin Indication: FOR VENTRICULAR FIBRILLATION OUTPT APIXABAN 5MG TAB (Status = Active) TAKE ONE-HALF TABLET BY MOUTH EVERY 12 HOURS FOR ATRIAL FIBRILLATION Rx# [id number] Last Released: 05/19/24 Qty/Days Supply: Rx Expiration Date: 05/19/25 Refills Remainin Indication: ATRIAL FIBRILLATION OUTPT ATORVASTATIN CALCIUM 40MG TAB (Status = Active) TAKE ONE TABLET BY MOUTH AT BEDTIME FOR HIGH CHOLESTEROL Rx# [id number] Last Released: 05/01/24 Qty/Days Supply: Rx Expiration Date: 04/28/25 Refills Remainin Indication: FOR HIGH CHOLESTEROL Non-VA CYANOCOBALAMIN 1000MCG TAB TAKE ONE TABLET BY MOUTH ONCE DAILY Medication prescribed by Non-VA provider. Non-VA DOCUSATE NA 100MG CAP TAKE 1 CAPSULE BY MOUTH ONCE DAILY NEEDED Medication prescribed by Non-VA provider. Non-VA FERROUS SULFATE 325MG TAB TAKE ONE TABLET BY MOUTH ONCE DAILY Medication prescribed by Non-VA provider. Non-VA GLIPIZIDE 5MG TAB TAKE ONE-HALF TABLET BY MOUTH ONCE DAILY Medication prescribed by Non-VA provider. Non-VA MAGNESIUM OXIDE 400MG TAB TAKE ONE TABLET BY MOUTH ONCE DAILY Medication prescribed by Non-VA provider. Non-VA METHENAMINE HIPPURATE 1GM TAB TAKE ONE TABLET BY MOUTH ONCE DAILY May 22, 2024 urology Indication: FOR URINARY TRACT INFECTION PREVENTION Non-VA MIDODRINE HCL 2.5MG TAB TAKE ONE TABLET BY MOUTH TWICE DAILY Medication prescribed by Non-VA provider. Non-VA SENNOSIDES 8.6MG TAB TAKE ONE TABLET BY MOUTH ONCE DAILY NEEDED Medication prescribed by Non-VA provider. Non-VA THIAMINE 100MG TAB TAKE ONE TABLET BY MOUTH ONCE DAILY Medication prescribed by Non-VA provider. Hospitalizations: [facility] [place]24 for acute UTI/sepsis (e. coli sensitive to cephalosporins) associated w catheter. [facility] acute septicemia r/t UTI FMH: mother: d. [place] 59 father: d. 58 cirrhosis/ETOH brother: d. cancer sister: d. cancer PSxHX: SP cath 2023 right inguinal hernia repair 40's hx of cardiac cath cataract repair HISTORY: PERIOD OF SERVICE - [facility] FROM Apr TO Feb COMBAT SERVICE INDICATED: No SH: MARITAL STATUS - x 9 years retired 20 years ago Has 5 step children: daughter Latisha 3 cats Lives w Son Christina and grandson Ihsan [employer] via [employer] fluid intake: 2 16 ounce bottles water/day 1 20 ounce vit water daily 2 coffees in AM (uses 1 K cup for both cups) Review of systems: Denies cough, SOB, CP, edema. No GI/ concerns. VITAL SIGNS: B/P: 118/70 (08/24/2024 14:14) Pulse: 82 (08/24/2024 14:14) Temperature: 98 F [36.7 C] (08/24/2024 14:14) Weight: 160 lb [72.57 kg] (03/30/2024 21:50) Height: BMI: BMI: Pain: 0 (08/24/2024 14:14) (0-10 scale) Pulse Ox:Measurement DT POx (L/MIN)(%) 08/24/2024 14:14 99 pt is alert and oriented x4. NAD. well kempt, mood appropriate, good eye contact HEENT: normal, pharynx normal, oral mucosa moist NECK: supple, no JVD CVS: regular rate and rhythm normal S1S2 no S3 or Murmur Lungs: clear/dim to auscultation throughout, no use of accessory muscles ABD: Benign, positive BS x 4 EXT: no edema, compression stockings on Knowns it is Spring 2024 and saturday, knows address 2/3 word recall A/P: Active problems - Computerized Problem List is the source for the following: >nightmares: >confusion: appears to be new since STR monitor neurology consult as warrented >FTT: was started on remeron 7.5mg qhs at STR consult w nutirionist regarding meal replacements >HTN: ARB stopped d/t ARF >hypotension: midodrine added and all antihypertensives stopped >uroseptis: >BPH w SB cath was on diflucan 100mg daily x 7 days cont methenamine DCD meds: vesicare dcd d/t risk of confusion finesteride and flomax d/t hypotension f/u w Dr. Lea >CHF: EF 15-20% >CAD: occlusion of the LAD (patient is not a candidate for stents or open heart surgery) monitor weights >afib: on amiodorone 200mg daily for rate control eliquis on HOLD per cards/urology >DM: A1C 7.6 DCd metformin inpatient cont on glipizide 2.5mg daily monitor >anemia: felt to be d/t hematuria on Iron + C 07/23/24 HBG 8 stool occult NEG EDG 05/16 s/p food bolus issue/diarrhea appears patient was referred for blood transfusion. Plan to corrdinate w non VA PCP to update labs and refer for transfusion via [facility] if needed HM: (x)advance directive UTD: DNR did discuss possible hospice in the future based on overall health seeking f/u labs BMP, MAG, BNP, B12, Iron panel, CBC w diff, B1 via non VA PCP Review of medical records: 30 min Time spent w patient including shared decision makin min Post visit documentation: [address] time: 60 min No barriers; Patient understands and agrees to current treatment plan. Medication Reconciliation: Medication List: JLV Link Data on this list may not be complete. Please check JLV. Allergies/ADRs (Tool #5) FACILITY ALLERGY/ADR -------- No Remote Allergy/ADR Data available for this patient [facility] No Known Allergies Med. Reconciliation (Tool #1) INCLUDED IN THIS LIST: Alphabetical list of active outpatient prescriptions dispensed from this VA (local) and dispensed from another VA or [facility] facility (remote) as well as inpatient orders (local pending and active), local clinic medications, locally documented non-VA medications, and local prescriptions that have or been discontinued in the past 90 days. Non-VA Meds Last Documented On: August 24, 2024 NOTE The display of VA prescriptions dispensed from another [place] or [facility] facility (remote) is limited to active outpatient prescription entries matched to National Drug File at the originating site and may not include some items such as investigational drugs, compounds, etc. NOT INCLUDED IN THIS LIST: Medications self-entered by the patient into personal health records (i.e. [employer]) are NOT included in this list. Non-VA medications documented outside this [place], remote inpatient orders (regardless of status) and remote clinic medications are NOT included in this list. The patient and provider must always discuss medications the patient is taking, regardless of where the medication was dispensed or obtained. OUTPT ACETAMINOPHEN 500MG TAB (Status = Active) TAKE TWO TABLETS BY MOUTH TWICE DAILY NEEDED FOR PAIN Rx# [id number] Last Released: 05/01/24 Qty/Days Supply: Rx Expiration Date: 04/28/25 Refills Remainin Indication: FOR PAIN OUTPT AMIODARONE HCL 200MG TAB (Status = Active) TAKE ONE TABLET BY MOUTH ONCE DAILY FOR VENTRICULAR FIBRILLATION Rx# [id number] Last Released: 06/17/24 Qty/Days Supply: Rx Expiration Date: 04/28/25 Refills Remainin Indication: FOR VENTRICULAR FIBRILLATION OUTPT APIXABAN 5MG TAB (Status = Active) TAKE ONE-HALF TABLET BY MOUTH EVERY 12 HOURS FOR ATRIAL FIBRILLATION Rx# [id number] Last Released: 05/19/24 Qty/Days Supply: Rx Expiration Date: 05/19/25 Refills Remainin Indication: ATRIAL FIBRILLATION OUTPT ATORVASTATIN CALCIUM 40MG TAB (Status = Active) TAKE ONE TABLET BY MOUTH AT BEDTIME FOR HIGH CHOLESTEROL Rx# [id number] Last Released: 05/01/24 Qty/Days Supply: Rx Expiration Date: 04/28/25 Refills Remainin Indication: FOR HIGH CHOLESTEROL Non-VA CYANOCOBALAMIN 1000MCG TAB TAKE ONE TABLET BY MOUTH ONCE DAILY Medication prescribed by Non-VA provider. Non-VA DOCUSATE NA 100MG CAP TAKE 1 CAPSULE BY MOUTH ONCE DAILY NEEDED Medication prescribed by Non-VA provider. Non-VA FERROUS SULFATE 325MG TAB TAKE ONE TABLET BY MOUTH ONCE DAILY Medication prescribed by Non-VA provider. OUTPT FINASTERIDE 5MG TAB (Status = Discontinued) TAKE ONE TABLET BY MOUTH ONCE DAILY FOR ENLARGED PROSTATE Rx# [id number] Last Released: 05/01/24 Qty/Days Supply: Rx Expiration Date: 04/28/25 Refills Remainin Indication: FOR ENLARGED PROSTATE OUTPT FUROSEMIDE 20MG TAB (Status = Discontinued) TAKE ONE TABLET BY MOUTH ONCE DAILY TO REMOVE FLUID/CONTROL BLOOD PRESSURE Rx# [id number] Last Released: 05/01/24 Qty/Days Supply: Rx Expiration Date: 04/28/25 Refills Remainin Indication: FOR HIGH BLOOD PRESSURE Non-VA GLIPIZIDE 5MG TAB TAKE ONE-HALF TABLET BY MOUTH ONCE DAILY Medication prescribed by Non-VA provider. Non-VA MAGNESIUM OXIDE 400MG TAB TAKE ONE TABLET BY MOUTH ONCE DAILY Medication prescribed by Non-VA provider. OUTPT METFORMIN HCL 500MG 24HR SA TAB (Status = Discontinued) TAKE TWO TABLETS BY MOUTH TWICE DAILY FOR TYPE 2 DIABETES MELLITUS Rx# [id number] Last Released: 05/01/24 Qty/Days Supply: 360 Rx Expiration Date: 04/28/25 Refills Remainin Indication: FOR TYPE 2 DIABETES MELLITUS Non-VA METHENAMINE HIPPURATE 1GM TAB TAKE ONE TABLET BY MOUTH ONCE DAILY May 22, 2024 urology Indication: FOR URINARY TRACT INFECTION PREVENTION Non-VA MIDODRINE HCL 2.5MG TAB TAKE ONE TABLET BY MOUTH TWICE DAILY Medication prescribed by Non-VA provider. Non-VA SENNOSIDES 8.6MG TAB TAKE ONE TABLET BY MOUTH ONCE DAILY NEEDED Medication prescribed by Non-VA provider. OUTPT SOLIFENACIN SUCCINATE 5MG TAB (Status = Discontinued) TAKE ONE TABLET BY MOUTH ONCE DAILY FOR OVERACTIVE BLADDER Rx# [id number] Last Released: 04/28/24 Qty/Days Supply: Rx Expiration Date: 04/28/25 Refills Remainin Indication: FOR OVERACTIVE BLADDER OUTPT SPIRONOLACTONE 25MG TAB (Status = Discontinued) TAKE ONE TABLET BY MOUTH ONCE DAILY FOR HEART FAILURE Rx# [id number] Last Released: 05/01/24 Qty/Days Supply: Rx Expiration Date: 04/28/25 Refills Remainin Indication: FOR HEART FAILURE OUTPT TAMSULOSIN HCL 0.4MG CAP (Status = Discontinued) TAKE ONE CAPSULE BY MOUTH ONCE DAILY FOR ENLARGED PROSTATE Rx# [id number] Last Released: 05/01/24 Qty/Days Supply: Rx Expiration Date: 04/28/25 Refills Remainin Indication: FOR ENLARGED PROSTATE Non-VA THIAMINE 100MG TAB TAKE ONE TABLET BY MOUTH ONCE DAILY Medication prescribed by Non-VA provider. SUPPLIES OUTPT DEPEND UNDERWEAR,MAXIMUM,MEN LARGE (Status = Active) USE 1 BRIEF DIRECTED TWICE DAILY NEEDED Rx# [id number] Last Released: 04/29/24 Qty/Days Supply: Rx Expiration Date: 04/28/25 Refills Remainin OUTPT MEDICATION DISPOSAL PATIENT PKT (Status = ) USE 1 ENVELOPE DIRECTED ONE TIME TO DISPOSE OF UNUSED MEDICATIONS Rx# [id number] Last Released: 04/29/24 Qty/Days Supply: 04/22 Rx Expiration Date: 05/27/24 Refills Remainin OUTPT MEDICATION DISPOSAL PATIENT PKT (Status = Pending) DISPOSAL PATIENT PKT USE 1 ENVELOPE DIRECTED ONE TIME TO DISPOSE OF UNUSED MEDICATIONS Renewed from Rx# [id number] Qty/Days Supply: 04/22 Login Date: 08/24/24 Refills Ordered: 0 PHARMACY TERMS AND POSSIBLE PATIENT ACTIONS INPT = [place] inpatient order IV = PR intravenous medication OUTPT = [place] outpatient prescription PHARMACY POSSIBLE PATIENT TERMS EXPLANATION ACTIONS -------- ----- ACTIVE A prescription that can be If you have refills, filled at the local [place] pharmacy. you may request a refill of this prescription from your VA pharmacy. CLINIC A medication you received during If you have questions a visit to a [place] clinic or about this medication emergency department. contact your [place] healthcare team. DISCONTINUED A prescription your provider has Contact your VA stopped. It is no longer healthcare team if you available to be sent to you or need more of this picked up at the [place] pharmacy medication. window. A prescription which is too old Contact your VA to fill. This does not refer to healthcare team if you the expiration date of the need more of this medication in the container. medication. NON-VA A medication that came from If this medication someplace other than a VA information is pharmacy. This may be a incorrect or out of prescription from either the VA date, please tell your or non VA providers that was VA healthcare team. filled outside the VA. Or, it may be an josx-lzu-pjowfln (OTC), herbal, dietary supplements or sample medication. ON HOLD An active prescription that will Contact your VA not be filled until pharmacy pharmacy when you need resolves the issue. more of this medication. PARKED An active prescription that will Contact your VA not be filled until the patient pharmacy when you need requests it. this medication. PENDING This prescription order has been If you have been sent to the pharmacy for review instructed to start and is not ready yet. this medication now, contact your VA pharmacy. SUSPENDED An active prescription that is Contact your [place] not scheduled to be filled yet. pharmacy if you need You should receive it before this medication now. you run out. /michell/ JUVENTINO MARTIN RN,MSN,BACTERIOLOGIST FOOD-C [facility] NURSE PRACTITIONER Signed: 08/24/2024 14:47 08/24/2024 ADDENDUM STATUS: COMPLETED Nutrition: Please evaluate for Glucerna /michell/ JUVENTINO MARTIN RN,MSN,BACTERIOLOGIST FOOD-C [facility] NURSE PRACTITIONER Signed: 08/24/2024 14:48 Receipt Acknowledged By: * AWAITING SIGNATURE * DIANE SANTOS Pat 08/24/2024 ADDENDUM STATUS: COMPLETED Please evaluate for bed alarm and grab bars. Thank you. /seven MARTIN RN,MSN,BACTERIOLOGIST FOOD-C [facility] NURSE PRACTITIONER Signed: 08/24/2024 14:49 Receipt Acknowledged By: 08/24/2024 15:56 /seven Vazquez [facility] Occupational Therapist CORY MARTIN [facility] [place] [facility] August 24, 2024 02:49 PM ADDENDUM: LOCAL TITLE: Addendum STANDARD TITLE: ADDENDUM DATE OF NOTE: AUGUST 24, 2024@14:49:12 ENTRY DATE: AUGUST 24, 2024@14:49:13 AUTHOR: MARGO MARTIN COSIGNER: URGENCY: STATUS: COMPLETED Please evaluate for bed alarm and grab bars. Thank you. /seven MARTIN RN,MSN,[facility] NURSE PRACTITIONER Signed: 08/24/2024 14:49 Receipt Acknowledged By: 08/24/2024 15:56 /seven Vazquez [facility] Occupational Therapist --- Original Document --- 08/24/24 [facility] INSTRUMENT MAKER AND REPAIRER PROGRESS NOTE: was seen for: ( )routine visit (x) problem visit Identified by name, , address and facial recognition VVC Ready: Yes [x] No [ ] Chief complaint:Pt is a 89 seen for follow up of medical problems as noted below. HPI:89 yo M seen for post hospital f/u. [place] [facility] [place] 07/10/24-07/14/24 Followed by [facility] 07/14/24-08/18/24. I was notified by [facility] of dc on 08/19/34 w questions on medication rec. Patients previous non VA PCP Dr. Wilson retired and he is to see new PCP Dr. Morgan españa at [facility], however is looking to have a video visit as grandsanna Sagastume is not able to take by himself, and he is worried about patients safety d/t high fall risk. Awaiting call back from PCP office. At visit today was Melani RN from [facility], daughter Latisha, grandsanna Sagastume, and another family member. Patients keyshawn Sagastume whom is also a is dealing w his own medical needs and has some limitations surrounding his grandfathers care. VA will do a casemix tool to determine if patient is eligable for any additional [employer] hours to assist w ADL/IADL needs. Appears Angella Bowen referred patient to [facility] for blood transfusion. Patient and family wishes to have this done via [facility] if this is needed. Patient feels he has pill burden with the change of his meds. Explained repeat labs will be obtained to determine what is needed. Patients has had hematuria and Dr. Cuello and Dr. Lea are following. Mildredis is currently on hold and UA was obtained per urology today. PCP: Dr. Aldo Mora 08/25/24 11:30am [phone] urology: Dr. Lea [phone] cardiology: Dr Cuello following q 6 months Optometry: Randall Blake [phone] non VA pharmacy: [facility] Ervin BARBER 1- 2x weekly - Jane [phone]/ [phone] PMH: Active problems - Computerized Problem List is the source for the followin. Chronic kidney disease 2. Ischemic congestive cardiomyopathy 3. Lower urinary tract symptoms due to benign prostatic hypertrophy urinary retention w SP cath 4. History of cardiac catheterization 5. Frail elderly 6. Long-term current use of anticoagulant 7. CHF - Congestive Heart Failure ([facility] [id number]) 8. HTN - Hypertension ([facility] [id number]) 9. Hyperlipidemia ([facility] [id number]) 10. Diabetes Mellitus Type 2 ([facility] [id number]) 11. CAD - Coronary Artery Disease ([facility] [id number]) 12. OA - Osteoarthritis ([facility] [id number]) 13. AF - Atrial fibrillation 14. Under care of multiple providers non VA PCP: Dimitri Wilson [phone]: dual care note sent 04/28/24 Cardiology: Yosef Cuello [phone] Optometry: Randall Blake [phone] [facility]: fax# [phone] Allergies: Patient has answered NKA The following VA and Non-VA meds were reconciled with patient: Active and Recently Outpatient Medications (excluding Supplies): OUTPT ACETAMINOPHEN 500MG TAB (Status = Active) TAKE TWO TABLETS BY MOUTH TWICE DAILY NEEDED FOR PAIN Rx# [id number] Last Released: 05/01/24 Qty/Days Supply: 100/30 Rx Expiration Date: 04/28/25 Refills Remainin Indication: FOR PAIN OUTPT AMIODARONE HCL 200MG TAB (Status = Active) TAKE ONE TABLET BY MOUTH ONCE DAILY FOR VENTRICULAR FIBRILLATION Rx# [id number] Last Released: 06/17/24 Qty/Days Supply: Rx Expiration Date: 04/28/25 Refills Remainin Indication: FOR VENTRICULAR FIBRILLATION OUTPT APIXABAN 5MG TAB (Status = Active) TAKE ONE-HALF TABLET BY MOUTH EVERY 12 HOURS FOR ATRIAL FIBRILLATION Rx# [id number] Last Released: 05/19/24 Qty/Days Supply: 90/90 Rx Expiration Date: 05/19/25 Refills Remainin Indication: ATRIAL FIBRILLATION OUTPT ATORVASTATIN CALCIUM 40MG TAB (Status = Active) TAKE ONE TABLET BY MOUTH AT BEDTIME FOR HIGH CHOLESTEROL Rx# [id number] Last Released: 05/01/24 Qty/Days Supply: Rx Expiration Date: 04/28/25 Refills Remainin Indication: FOR HIGH CHOLESTEROL Non-VA CYANOCOBALAMIN 1000MCG TAB TAKE ONE TABLET BY MOUTH ONCE DAILY Medication prescribed by Non-VA provider. Non-VA DOCUSATE NA 100MG CAP TAKE 1 CAPSULE BY MOUTH ONCE DAILY NEEDED Medication prescribed by Non-VA provider. Non-VA FERROUS SULFATE 325MG TAB TAKE ONE TABLET BY MOUTH ONCE DAILY Medication prescribed by Non-VA provider. Non-VA GLIPIZIDE 5MG TAB TAKE ONE-HALF TABLET BY MOUTH ONCE DAILY Medication prescribed by Non-VA provider. Non-VA MAGNESIUM OXIDE 400MG TAB TAKE ONE TABLET BY MOUTH ONCE DAILY Medication prescribed by Non-VA provider. Non-VA METHENAMINE HIPPURATE 1GM TAB TAKE ONE TABLET BY MOUTH ONCE DAILY May 22, 2024 urology Indication: FOR URINARY TRACT INFECTION PREVENTION Non-VA MIDODRINE HCL 2.5MG TAB TAKE ONE TABLET BY MOUTH TWICE DAILY Medication prescribed by Non-VA provider. Non-VA SENNOSIDES 8.6MG TAB TAKE ONE TABLET BY MOUTH ONCE DAILY NEEDED Medication prescribed by Non-VA provider. Non-VA THIAMINE 100MG TAB TAKE ONE TABLET BY MOUTH ONCE DAILY Medication prescribed by Non-VA provider. [place] [facility] [place] for acute UTI/sepsis (e. coli sensitive to cephalosporins) associated w catheter. [facility] [place]emia r/t UTI FMH: mother: d. [place] 59 father: d. 58 cirrhosis/ETOH brother: d. cancer sister: d. cancer PSxHX: SP cath 2023 right inguinal hernia repair 40's hx of cardiac cath cataract repair HISTORY: PERIOD OF SERVICE - [facility] FROM Apr TO Feb COMBAT SERVICE INDICATED: No SH: MARITAL STATUS - x 9 years retired 20 years ago Has 5 step children: daughter Latisha 3 cats Lives w Son Christina and grandson Ihsan [employer] via [employer] fluid intake: 2 16 ounce bottles water/day 1 20 ounce vit water daily 2 coffees in AM (uses 1 K cup for both cups) Review of systems: Denies cough, SOB, CP, edema. No GI/ concerns. VITAL SIGNS: B/P: 118/70 (08/24/2024 14:14) Pulse: 82 (08/24/2024 14:14) Temperature: 98 F [36.7 C] (08/24/2024 14:14) Weight: 160 lb [72.57 kg] (03/30/2024 21:50) Height: BMI: BMI: Pain: 0 (08/24/2024 14:14) (0-10 scale) Pulse Ox:Measurement DT POx (L/MIN)(%) 08/24/2024 14:14 99 pt is alert and oriented x4. NAD. well kempt, mood appropriate, good eye contact HEENT: normal, pharynx normal, oral mucosa moist NECK: supple, no JVD CVS: regular rate and rhythm normal S1S2 no S3 or Murmur Lungs: clear/dim to auscultation throughout, no use of accessory muscles ABD: Benign, positive BS x 4 EXT: no edema, compression stockings on Knowns it is Spring 2024 and saturday, knows address 2/3 word recall A/P: Active problems - Computerized Problem List is the source for the following: >nightmares: >confusion: appears to be new since STR monitor neurology consult as warrented >FTT: was started on remeron 7.5mg qhs at STR consult w nutirionist regarding meal replacements >HTN: ARB stopped d/t ARF >hypotension: midodrine added and all antihypertensives stopped >uroseptis: >BPH w SB cath was on diflucan 100mg daily x 7 days cont methenamine DCD meds: vesicare dcd d/t risk of confusion finesteride and flomax d/t hypotension f/u w Dr. Lea >CHF: EF 15-20% >CAD: occlusion of the LAD (patient is not a candidate for stents or open heart surgery) monitor weights >afib: on amiodorone 200mg daily for rate control eliquis on HOLD per cards/urology >DM: A1C 7.6 DCd metformin inpatient cont on glipizide 2.5mg daily monitor >anemia: felt to be d/t hematuria on Iron + C 07/23/24 [facility] 8 stool occult NEG EDG 05/16 s/p food bolus issue/diarrhea appears patient was referred for blood transfusion. Plan to corrdinate w non VA PCP to update labs and refer for transfusion via [facility] if needed HM: (x)advance directive UTD: DNR did discuss possible hospice in the future based on overall health seeking f/u labs BMP, MAG, BNP, B12, Iron panel, CBC w diff, B1 via non VA PCP Review of medical records: 30 min Time spent w patient including shared decision makin min Post visit documentation: [address] time: 60 min No barriers; Patient understands and agrees to current treatment plan. Medication Reconciliation: Medication List: JLV Link Data on this list may not be complete. Please check JLV. Allergies/ADRs (Tool #5) FACILITY ALLERGY/ADR -------- No Remote Allergy/ADR Data available for this patient [facility] No Known Allergies Med. Reconciliation (Tool #1) INCLUDED IN THIS LIST: Alphabetical list of active outpatient prescriptions dispensed from this VA (local) and dispensed from another VA or [facility] facility (remote) as well as inpatient orders (local pending and active), local clinic medications, locally documented non-VA medications, and local prescriptions that have or been discontinued in the past 90 days. Non-VA Meds Last Documented On: August 24, 2024 NOTE The display of VA prescriptions dispensed from another VA or [facility] facility (remote) is limited to active outpatient prescription entries matched to National Drug File at the originating site and may not include some items such as investigational drugs, compounds, etc. NOT INCLUDED IN THIS LIST: Medications self-entered by the patient into personal health records (i.e. [employer]) are NOT included in this list. Non-VA medications documented outside this [place], remote inpatient orders (regardless of status) and remote clinic medications are NOT included in this list. The patient and provider must always discuss medications the patient is taking, regardless of where the medication was dispensed or obtained. OUTPT ACETAMINOPHEN 500MG TAB (Status = Active) TAKE TWO TABLETS BY MOUTH TWICE DAILY NEEDED FOR PAIN Rx# [id number] Last Released: 05/01/24 Qty/Days Supply: 100/30 Rx Expiration Date: 04/28/25 Refills Remainin Indication: FOR PAIN OUTPT AMIODARONE HCL 200MG TAB (Status = Active) TAKE ONE TABLET BY MOUTH ONCE DAILY FOR VENTRICULAR FIBRILLATION Rx# [id number] Last Released: 06/17/24 Qty/Days Supply: Rx Expiration Date: 04/28/25 Refills Remainin Indication: FOR VENTRICULAR FIBRILLATION OUTPT APIXABAN 5MG TAB (Status = Active) TAKE ONE-HALF TABLET BY MOUTH EVERY 12 HOURS FOR ATRIAL FIBRILLATION Rx# [id number] Last Released: 05/19/24 Qty/Days Supply: Rx Expiration Date: 05/19/25 Refills Remainin Indication: ATRIAL FIBRILLATION OUTPT ATORVASTATIN CALCIUM 40MG TAB (Status = Active) TAKE ONE TABLET BY MOUTH AT BEDTIME FOR HIGH CHOLESTEROL Rx# [id number] Last Released: 05/01/24 Qty/Days Supply: Rx Expiration Date: 04/28/25 Refills Remainin Indication: FOR HIGH CHOLESTEROL Non-VA CYANOCOBALAMIN 1000MCG TAB TAKE ONE TABLET BY MOUTH ONCE DAILY Medication prescribed by Non-VA provider. Non-VA DOCUSATE NA 100MG CAP TAKE 1 CAPSULE BY MOUTH ONCE DAILY NEEDED Medication prescribed by Non-VA provider. Non-VA FERROUS SULFATE 325MG TAB TAKE ONE TABLET BY MOUTH ONCE DAILY Medication prescribed by Non-VA provider. OUTPT FINASTERIDE 5MG TAB (Status = Discontinued) TAKE ONE TABLET BY MOUTH ONCE DAILY FOR ENLARGED PROSTATE Rx# [id number] Last Released: 05/01/24 Qty/Days Supply: Rx Expiration Date: 04/28/25 Refills Remainin Indication: FOR ENLARGED PROSTATE OUTPT FUROSEMIDE 20MG TAB (Status = Discontinued) TAKE ONE TABLET BY MOUTH ONCE DAILY TO REMOVE FLUID/CONTROL BLOOD PRESSURE Rx# [id number] Last Released: 05/01/24 Qty/Days Supply: Rx Expiration Date: 04/28/25 Refills Remainin Indication: FOR HIGH BLOOD PRESSURE Non-VA GLIPIZIDE 5MG TAB TAKE ONE-HALF TABLET BY MOUTH ONCE DAILY Medication prescribed by Non-VA provider. Non-VA MAGNESIUM OXIDE 400MG TAB TAKE ONE TABLET BY MOUTH ONCE DAILY Medication prescribed by Non-VA provider. OUTPT METFORMIN HCL 500MG 24HR SA TAB (Status = Discontinued) TAKE TWO TABLETS BY MOUTH TWICE DAILY FOR TYPE 2 DIABETES MELLITUS Rx# [id number] Last Released: 05/01/24 Qty/Days Supply: Rx Expiration Date: 04/28/25 Refills Remainin Indication: FOR TYPE 2 DIABETES MELLITUS Non-VA METHENAMINE HIPPURATE 1GM TAB TAKE ONE TABLET BY MOUTH ONCE DAILY May 22, 2024 urology Indication: FOR URINARY TRACT INFECTION PREVENTION Non-VA MIDODRINE HCL 2.5MG TAB TAKE ONE TABLET BY MOUTH TWICE DAILY Medication prescribed by Non-VA provider. Non-VA SENNOSIDES 8.6MG TAB TAKE ONE TABLET BY MOUTH ONCE DAILY NEEDED Medication prescribed by Non-VA provider. OUTPT SOLIFENACIN SUCCINATE 5MG TAB (Status = Discontinued) TAKE ONE TABLET BY MOUTH ONCE DAILY FOR OVERACTIVE BLADDER Rx# [id number] Last Released: 04/28/24 Qty/Days Supply: Rx Expiration Date: 04/28/25 Refills Remainin Indication: FOR OVERACTIVE BLADDER OUTPT SPIRONOLACTONE 25MG TAB (Status = Discontinued) TAKE ONE TABLET BY MOUTH ONCE DAILY FOR HEART FAILURE Rx# [id number] Last Released: 05/01/24 Qty/Days Supply: Rx Expiration Date: 04/28/25 Refills Remainin Indication: FOR HEART FAILURE OUTPT TAMSULOSIN HCL 0.4MG CAP (Status = Discontinued) TAKE ONE CAPSULE BY MOUTH ONCE DAILY FOR ENLARGED PROSTATE Rx# [id number] Last Released: 05/01/24 Qty/Days Supply: Rx Expiration Date: 04/28/25 Refills Remainin Indication: FOR ENLARGED PROSTATE Non-VA THIAMINE 100MG TAB TAKE ONE TABLET BY MOUTH ONCE DAILY Medication prescribed by Non-VA provider. SUPPLIES OUTPT DEPEND UNDERWEAR,MAXIMUM,MEN LARGE (Status = Active) USE 1 BRIEF DIRECTED TWICE DAILY NEEDED Rx# [id number] Last Released: 04/29/24 Qty/Days Supply: Rx Expiration Date: 04/28/25 Refills Remainin OUTPT MEDICATION DISPOSAL PATIENT PKT (Status = ) USE 1 ENVELOPE DIRECTED ONE TIME TO DISPOSE OF UNUSED MEDICATIONS Rx# [id number] Last Released: 04/29/24 Qty/Days Supply: 04/22 Rx Expiration Date: 05/27/24 Refills Remainin OUTPT MEDICATION DISPOSAL PATIENT PKT (Status = Pending) DISPOSAL PATIENT PKT USE 1 ENVELOPE DIRECTED ONE TIME TO DISPOSE OF UNUSED MEDICATIONS Renewed from Rx# [id number] Qty/Days Supply: 04/22 Login Date: 08/24/24 Refills Ordered: 0 PHARMACY TERMS AND POSSIBLE PATIENT ACTIONS INPT = PR inpatient order IV = PR intravenous medication OUTPT = PR outpatient prescription PHARMACY POSSIBLE PATIENT TERMS EXPLANATION ACTIONS -------- ----- ACTIVE A prescription that can be If you have refills, filled at the local [place] pharmacy. you may request a refill of this prescription from your [place] pharmacy. CLINIC A medication you received during If you have questions a visit to a [place] clinic or about this medication emergency department. contact your VA healthcare team. DISCONTINUED A prescription your provider has Contact your VA stopped. It is no longer healthcare team if you available to be sent to you or need more of this picked up at the [place] pharmacy medication. window. A prescription which is too old Contact your VA to fill. This does not refer to healthcare team if you the expiration date of the need more of this medication in the container. medication. NON-VA A medication that came from If this medication someplace other than a VA information is pharmacy. This may be a incorrect or out of prescription from either the VA date, please tell your or non VA providers that was VA healthcare team. filled outside the VA. Or, it may be an [id number] (OTC), herbal, dietary supplements or sample medication. ON HOLD An active prescription that will Contact your VA not be filled until pharmacy pharmacy when you need resolves the issue. more of this medication. PARKED An active prescription that will Contact your VA not be filled until the patient pharmacy when you need requests it. this medication. PENDING This prescription order has been If you have been sent to the pharmacy for review instructed to start and is not ready yet. this medication now, contact your VA pharmacy. SUSPENDED An active prescription that is Contact your [place] not scheduled to be filled yet. pharmacy if you need You should receive it before this medication now. you run out. /seven MARTIN RN,MSN,BACTERIOLOGIST FOOD-C [facility] NURSE PRACTITIONER Signed: 08/24/2024 14:47 08/24/2024 ADDENDUM STATUS: COMPLETED Nutrition: Please evaluate for Glucerna /seven MARTIN RN,MSN,BACTERIOLOGIST FOOD-C [facility] NURSE PRACTITIONER Signed: 08/24/2024 14:48 Receipt Acknowledged By: * AWAITING SIGNATURE * DIANE SANTOS 08/24/2024 ADDENDUM STATUS: COMPLETED Keyshawn Ihsan contact [phone] PCP: Dr. Aldo Mora 08/25/24 11:30am changed to telehealth [facility] PLEASE SEND LAB ORDERS TO [facility] [place] [facility] [place] /michell/ JUVENTINO MARTIN RN,MSN,BACTERIOLOGIST FOOD-C [facility] NURSE PRACTITIONER Signed: 08/24/2024 15:36 Receipt Acknowledged By: * AWAITING SIGNATURE * SAMARASELI Miramontes * AWAITING SIGNATURE * WOODY [facility]IPPS [place] [facility] August 24, 2024 02:48 PM ADDENDUM: LOCAL TITLE: Addendum STANDARD TITLE: ADDENDUM DATE OF NOTE: AUGUST 24, 2024@14:48:20 ENTRY DATE: AUGUST 24, 2024@14:48:21 AUTHOR: MARGO MARTIN COSIGNER: URGENCY: STATUS: COMPLETED Nutrition: Please evaluate for Glucerna /michell/ JUVENTINO MARTIN RN,MSN,BACTERIOLOGIST FOOD-C [facility] NURSE PRACTITIONER Signed: 08/24/2024 14:48 Receipt Acknowledged By: 08/25/2024 10:38 /michell/ DIANE SANTOS STAFF DIETITIAN --- Original Document --- 08/24/24 [facility] INSTRUMENT MAKER AND REPAIRER PROGRESS NOTE: [place] was seen for: ( )routine visit (x) problem visit Identified by name, , address and facial recognition [facility] Ready: Yes [x] No [ ] Chief complaint:Pt is a 89 seen for follow up of medical problems as noted below. HPI:89 yo M seen for post hospital f/u. [place] [facility] [place] 07/10/24-07/14/24 Followed by STR at [facility] 07/14/24-08/18/24. I was notified by [facility] of dc on 08/19/34 w questions on medication rec. Patients previous non VA PCP Dr. Wilson retired and he is to see new PCP Dr. Morgan españa [place] [facility] [place], however is looking to have a video visit as grandsanna Sagastume is not able to take by himself, and he is worried about patients safety d/t high fall risk. Awaiting call back from PCP office. At visit today was Melani RN from [facility], daughter Latisha, grandsanna Sagastume, and another family member. Patients grandsanna Sagastume whom is also a is dealing w his own medical needs and has some limitations surrounding his grandfathers care. [place] will do a [employer] tool to determine if patient is eligable for any additional [employer] hours to assist w ADL/IADL needs. Appears Angella Schwartzdows referred patient to [facility] for blood transfusion. Patient and family wishes to have this done via [facility] [place] if this is needed. Patient feels he has pill burden with the change of his meds. Explained repeat labs will be obtained to determine what is needed. Patients has had hematuria and Dr. Cuello and Dr. Lea are following. Rosalia is currently on hold and UA was obtained per urology today. PCP: Dr. Aldo Mora 08/25/24 11:30am [phone] urology: Dr. Lea [phone] cardiology: Dr Cuello following q 6 months Optometry: Randall Blake [phone] non [place] pharmacy: [facility] 1- 2x weekly - Jane [phone]/ [phone] PMH: Active problems - Computerized Problem List is the source for the followin. Chronic kidney disease 2. Ischemic congestive cardiomyopathy 3. Lower urinary tract symptoms due to benign prostatic hypertrophy urinary retention w SP cath 4. History of cardiac catheterization 5. Frail elderly 6. Long-term current use of anticoagulant 7. CHF - Congestive Heart Failure ([facility] [id number]) 8. HTN - Hypertension ([facility] [id number]) 9. Hyperlipidemia ([facility] [id number]) 10. Diabetes Mellitus Type 2 ([facility] [id number]) 11. CAD - Coronary Artery Disease ([facility] [id number]) 12. OA - Osteoarthritis ([facility] [id number]) 13. AF - Atrial fibrillation 14. Under care of multiple providers non VA PCP: Dimitri Wilson [phone]: dual care note sent 04/28/24 Cardiology: Yosef Cuello [phone] Optometry: Randallevgeny Blake [phone] [facility]: fax# [phone] Allergies: Patient has answered NKA The following VA and Non-VA meds were reconciled with patient: Active and Recently Outpatient Medications (excluding Supplies): OUTPT ACETAMINOPHEN 500MG TAB (Status = Active) TAKE TWO TABLETS BY MOUTH TWICE DAILY NEEDED FOR PAIN Rx# [id number] Last Released: 05/01/24 Qty/Days Supply: / Rx Expiration Date: 04/28/25 Refills Remainin Indication: FOR PAIN OUTPT AMIODARONE HCL 200MG TAB (Status = Active) TAKE ONE TABLET BY MOUTH ONCE DAILY FOR VENTRICULAR FIBRILLATION Rx# [id number] Last Released: 06/17/24 Qty/Days Supply: Rx Expiration Date: 04/28/25 Refills Remainin Indication: FOR VENTRICULAR FIBRILLATION OUTPT APIXABAN 5MG TAB (Status = Active) TAKE ONE-HALF TABLET BY MOUTH EVERY 12 HOURS FOR ATRIAL FIBRILLATION Rx# [id number] Last Released: 05/19/24 Qty/Days Supply: Rx Expiration Date: 05/19/25 Refills Remainin Indication: ATRIAL FIBRILLATION OUTPT ATORVASTATIN CALCIUM 40MG TAB (Status = Active) TAKE ONE TABLET BY MOUTH AT BEDTIME FOR HIGH CHOLESTEROL Rx# [id number] Last Released: 05/01/24 Qty/Days Supply: Rx Expiration Date: 04/28/25 Refills Remainin Indication: FOR HIGH CHOLESTEROL Non-VA CYANOCOBALAMIN 1000MCG TAB TAKE ONE TABLET BY MOUTH ONCE DAILY Medication prescribed by Non-VA provider. Non-VA DOCUSATE NA 100MG CAP TAKE 1 CAPSULE BY MOUTH ONCE DAILY NEEDED Medication prescribed by Non-VA provider. Non-VA FERROUS SULFATE 325MG TAB TAKE ONE TABLET BY MOUTH ONCE DAILY Medication prescribed by Non-VA provider. Non-VA GLIPIZIDE 5MG TAB TAKE ONE-HALF TABLET BY MOUTH ONCE DAILY Medication prescribed by Non-VA provider. Non-VA MAGNESIUM OXIDE 400MG TAB TAKE ONE TABLET BY MOUTH ONCE DAILY Medication prescribed by Non-VA provider. Non-VA METHENAMINE HIPPURATE 1GM TAB TAKE ONE TABLET BY MOUTH ONCE DAILY May 22, 2024 urology Indication: FOR URINARY TRACT INFECTION PREVENTION Non-VA MIDODRINE HCL 2.5MG TAB TAKE ONE TABLET BY MOUTH TWICE DAILY Medication prescribed by Non-VA provider. Non-VA SENNOSIDES 8.6MG TAB TAKE ONE TABLET BY MOUTH ONCE DAILY NEEDED Medication prescribed by Non-VA provider. Non-VA THIAMINE 100MG TAB TAKE ONE TABLET BY MOUTH ONCE DAILY Medication prescribed by Non-VA provider. [place] [facility] [place] for acute UTI/sepsis (e. coli sensitive to cephalosporins) associated w catheter. [facility] [place] r/t UTI FMH: mother: d. [place] 58 father: d. 58 cirrhosis/ETOH brother: d. cancer sister: d. cancer PSxHX: SP cath 2023 right inguinal hernia repair 40's hx of cardiac cath cataract repair HISTORY: PERIOD OF SERVICE - [facility] FROM Apr TO Feb COMBAT SERVICE INDICATED: No SH: MARITAL STATUS - x 9 years retired 20 years ago Has 5 step children: daughter Latisha 3 cats Lives w Son Christina and grandson Ihsan [employer] via [employer] fluid intake: 2 16 ounce bottles water/day 1 20 ounce vit water daily 2 coffees in AM (uses 1 K cup for both cups) Review of systems: Denies cough, SOB, CP, edema. No GI/ concerns. VITAL SIGNS: B/P: 118/70 (08/24/2024 14:14) Pulse: 82 (08/24/2024 14:14) Temperature: 98 F [36.7 C] (08/24/2024 14:14) Weight: 160 lb [72.57 kg] (03/30/2024 21:50) Height: BMI: BMI: Pain: 0 (08/24/2024 14:14) (0-10 scale) Pulse Ox:Measurement DT POx (L/MIN)(%) 08/24/2024 14:14 99 pt is alert and oriented x4. NAD. well kempt, mood appropriate, good eye contact HEENT: normal, pharynx normal, oral mucosa moist NECK: supple, no JVD CVS: regular rate and rhythm normal S1S2 no S3 or Murmur Lungs: clear/dim to auscultation throughout, no use of accessory muscles ABD: Benign, positive BS x 4 EXT: no edema, compression stockings on Knowns it is Spring 2024 and saturday, knows address 2/3 word recall A/P: Active problems - Computerized Problem List is the source for the following: >nightmares: >confusion: appears to be new since STR monitor neurology consult as warrented >FTT: was started on remeron 7.5mg qhs at STR consult w nutirionist regarding meal replacements >HTN: ARB stopped d/t ARF >hypotension: midodrine added and all antihypertensives stopped >uroseptis: >BPH w SB cath was on diflucan 100mg daily x 7 days cont methenamine DCD meds: vesicare dcd d/t risk of confusion finesteride and flomax d/t hypotension f/u w Dr. Lea >CHF: EF 15-20% >CAD: occlusion of the LAD (patient is not a candidate for stents or open heart surgery) monitor weights >afib: on amiodorone 200mg daily for rate control eliquis on HOLD per cards/urology >DM: A1C 7.6 DCd metformin inpatient cont on glipizide 2.5mg daily monitor >anemia: felt to be d/t hematuria on Iron + C 07/23/24 [facility] 8 stool occult NEG EDG 05/16 s/p food bolus issue/diarrhea appears patient was referred for blood transfusion. Plan to corrdinate w non VA PCP to update labs and refer for transfusion via [facility] if needed HM: (x)advance directive UTD: DNR did discuss possible hospice in the future based on overall health seeking f/u labs BMP, MAG, BNP, B12, Iron panel, CBC w diff, B1 via non VA PCP Review of medical records: 30 min Time spent w patient including shared decision makin min Post visit documentation: [address] time: 60 min No barriers; Patient understands and agrees to current treatment plan. Medication Reconciliation: Medication List: JLV Link Data on this list may not be complete. Please check JLV. Allergies/ADRs (Tool #5) FACILITY ALLERGY/ADR -------- No Remote Allergy/ADR Data available for this patient [facility] No Known Allergies Med. Reconciliation (Tool #1) INCLUDED IN THIS LIST: Alphabetical list of active outpatient prescriptions dispensed from this [place] (local) and dispensed from another [place] or [facility] facility (remote) as well as inpatient orders (local pending and active), local clinic medications, locally documented non-VA medications, and local prescriptions that have or been discontinued in the past 90 days. Non-VA Meds Last Documented On: August 24, 2024 NOTE The display of VA prescriptions dispensed from another [place] or DoD facility (remote) is limited to active outpatient prescription entries matched to National Drug File at the originating site and may not include some items such as investigational drugs, compounds, etc. NOT INCLUDED IN THIS LIST: Medications self-entered by the patient into personal health records (i.e. [employer]) are NOT included in this list. Non-VA medications documented outside this [place], remote inpatient orders (regardless of status) and remote clinic medications are NOT included in this list. The patient and provider must always discuss medications the patient is taking, regardless of where the medication was dispensed or obtained. OUTPT ACETAMINOPHEN 500MG TAB (Status = Active) TAKE TWO TABLETS BY MOUTH TWICE DAILY NEEDED FOR PAIN Rx# [id number] Last Released: 05/01/24 Qty/Days Supply: Rx Expiration Date: 04/28/25 Refills Remainin Indication: FOR PAIN OUTPT AMIODARONE HCL 200MG TAB (Status = Active) TAKE ONE TABLET BY MOUTH ONCE DAILY FOR VENTRICULAR FIBRILLATION Rx# [id number] Last Released: 06/17/24 Qty/Days Supply: Rx Expiration Date: 04/28/25 Refills Remainin Indication: FOR VENTRICULAR FIBRILLATION OUTPT APIXABAN 5MG TAB (Status = Active) TAKE ONE-HALF TABLET BY MOUTH EVERY 12 HOURS FOR ATRIAL FIBRILLATION Rx# [id number] Last Released: 05/19/24 Qty/Days Supply: Rx Expiration Date: 05/19/25 Refills Remainin Indication: ATRIAL FIBRILLATION OUTPT ATORVASTATIN CALCIUM 40MG TAB (Status = Active) TAKE ONE TABLET BY MOUTH AT BEDTIME FOR HIGH CHOLESTEROL Rx# [id number] Last Released: 05/01/24 Qty/Days Supply: Rx Expiration Date: 04/28/25 Refills Remainin Indication: FOR HIGH CHOLESTEROL Non-VA CYANOCOBALAMIN 1000MCG TAB TAKE ONE TABLET BY MOUTH ONCE DAILY Medication prescribed by Non-VA provider. Non-VA DOCUSATE NA 100MG CAP TAKE 1 CAPSULE BY MOUTH ONCE DAILY NEEDED Medication prescribed by Non-VA provider. Non-VA FERROUS SULFATE 325MG TAB TAKE ONE TABLET BY MOUTH ONCE DAILY Medication prescribed by Non-VA provider. OUTPT FINASTERIDE 5MG TAB (Status = Discontinued) TAKE ONE TABLET BY MOUTH ONCE DAILY FOR ENLARGED PROSTATE Rx# [id number] Last Released: 05/01/24 Qty/Days Supply: Rx Expiration Date: 04/28/25 Refills Remainin Indication: FOR ENLARGED PROSTATE OUTPT FUROSEMIDE 20MG TAB (Status = Discontinued) TAKE ONE TABLET BY MOUTH ONCE DAILY TO REMOVE FLUID/CONTROL BLOOD PRESSURE Rx# [id number] Last Released: 05/01/24 Qty/Days Supply: Rx Expiration Date: 04/28/25 Refills Remainin Indication: FOR HIGH BLOOD PRESSURE Non-VA GLIPIZIDE 5MG TAB TAKE ONE-HALF TABLET BY MOUTH ONCE DAILY Medication prescribed by Non-VA provider. Non-VA MAGNESIUM OXIDE 400MG TAB TAKE ONE TABLET BY MOUTH ONCE DAILY Medication prescribed by Non-VA provider. OUTPT METFORMIN HCL 500MG 24HR SA TAB (Status = Discontinued) TAKE TWO TABLETS BY MOUTH TWICE DAILY FOR TYPE 2 DIABETES MELLITUS Rx# [id number] Last Released: 05/01/24 Qty/Days Supply: Rx Expiration Date: 04/28/25 Refills Remainin Indication: FOR TYPE 2 DIABETES MELLITUS Non-VA METHENAMINE HIPPURATE 1GM TAB TAKE ONE TABLET BY MOUTH ONCE DAILY May 22, 2024 urology Indication: FOR URINARY TRACT INFECTION PREVENTION Non-VA MIDODRINE HCL 2.5MG TAB TAKE ONE TABLET BY MOUTH TWICE DAILY Medication prescribed by Non-VA provider. Non-VA SENNOSIDES 8.6MG TAB TAKE ONE TABLET BY MOUTH ONCE DAILY NEEDED Medication prescribed by Non-VA provider. OUTPT SOLIFENACIN SUCCINATE 5MG TAB (Status = Discontinued) TAKE ONE TABLET BY MOUTH ONCE DAILY FOR OVERACTIVE BLADDER Rx# [id number] Last Released: 04/28/24 Qty/Days Supply: Rx Expiration Date: 04/28/25 Refills Remainin Indication: FOR OVERACTIVE BLADDER OUTPT SPIRONOLACTONE 25MG TAB (Status = Discontinued) TAKE ONE TABLET BY MOUTH ONCE DAILY FOR HEART FAILURE Rx# [id number] Last Released: 05/01/24 Qty/Days Supply: Rx Expiration Date: 04/28/25 Refills Remainin Indication: FOR HEART FAILURE OUTPT TAMSULOSIN HCL 0.4MG CAP (Status = Discontinued) TAKE ONE CAPSULE BY MOUTH ONCE DAILY FOR ENLARGED PROSTATE Rx# [id number] Last Released: 05/01/24 Qty/Days Supply: Rx Expiration Date: 04/28/25 Refills Remainin Indication: FOR ENLARGED PROSTATE Non-VA THIAMINE 100MG TAB TAKE ONE TABLET BY MOUTH ONCE DAILY Medication prescribed by Non-VA provider. SUPPLIES OUTPT DEPEND UNDERWEAR,MAXIMUM,MEN LARGE (Status = Active) USE 1 BRIEF DIRECTED TWICE DAILY NEEDED Rx# [id number] Last Released: 04/29/24 Qty/Days Supply: Rx Expiration Date: 04/28/25 Refills Remainin OUTPT MEDICATION DISPOSAL PATIENT PKT (Status = ) USE 1 ENVELOPE DIRECTED ONE TIME TO DISPOSE OF UNUSED MEDICATIONS Rx# [id number] Last Released: 04/29/24 Qty/Days Supply: 04/22 Rx Expiration Date: 05/27/24 Refills Remainin OUTPT MEDICATION DISPOSAL PATIENT PKT (Status = Pending) DISPOSAL PATIENT PKT USE 1 ENVELOPE DIRECTED ONE TIME TO DISPOSE OF UNUSED MEDICATIONS Renewed from Rx# [id number] Qty/Days Supply: 04/22 Login Date: 08/24/24 Refills Ordered: 0 PHARMACY TERMS AND POSSIBLE PATIENT ACTIONS INPT = [place] inpatient order IV = [place] intravenous medication OUTPT = [place] outpatient prescription PHARMACY POSSIBLE PATIENT TERMS EXPLANATION ACTIONS -------- ----- ACTIVE A prescription that can be If you have refills, filled at the local [place] pharmacy. you may request a refill of this prescription from your [place] pharmacy. CLINIC A medication you received during If you have questions a visit to a [place] clinic or about this medication emergency department. contact your VA healthcare team. DISCONTINUED A prescription your provider has Contact your VA stopped. It is no longer healthcare team if you available to be sent to you or need more of this picked up at the [place] pharmacy medication. window. A prescription which is too old Contact your VA to fill. This does not refer to healthcare team if you the expiration date of the need more of this medication in the container. medication. NON-VA A medication that came from If this medication someplace other than a VA information is pharmacy. This may be a incorrect or out of prescription from either the VA date, please tell your or non VA providers that was VA healthcare team. filled outside the VA. Or, it may be an omou-kwn-yyjzdxn (OTC), herbal, dietary supplements or sample medication. ON HOLD An active prescription that will Contact your VA not be filled until pharmacy pharmacy when you need resolves the issue. more of this medication. PARKED An active prescription that will Contact your VA not be filled until the patient pharmacy when you need requests it. this medication. PENDING This prescription order has been If you have been sent to the pharmacy for review instructed to start and is not ready yet. this medication now, contact your VA pharmacy. SUSPENDED An active prescription that is Contact your VA not scheduled to be filled yet. pharmacy if you need You should receive it before this medication now. you run out. /michell/ JUVENTINO MARTIN RN,MSN,BACTERIOLOGIST FOOD-C [facility] NURSE PRACTITIONER Signed: 08/24/2024 14:47 08/24/2024 ADDENDUM STATUS: COMPLETED Please evaluate for bed alarm and grab bars. Thank you. /michell/ JUVENTINO MARTIN RN,MSN,BACTERIOLOGIST FOOD-C [facility] NURSE PRACTITIONER Signed: 08/24/2024 14:49 Receipt Acknowledged By: 08/24/2024 15:56 /es/ Mildred Vazquez [facility] Occupational Therapist 08/24/2024 ADDENDUM STATUS: COMPLETED Keyshawn Sagastume contact [phone] PCP: Dr. Aldo Mora 08/25/24 11:30am changed to telehealth Ervin BARBER PLEASE SEND LAB ORDERS TO ERVIN BARBER TO [place] [facility] [place] /michell/ JUVENTINO MARTIN RN,MSN,BACTERIOLOGIST FOOD-C [facility] NURSE PRACTITIONER Signed: 08/24/2024 15:36 Receipt Acknowledged By: 08/25/2024 06:26 /es/ ARASELI Miramontes CHAPPA VISUAL DESIGNER [facility] 08/24/2024 17:13 /es/ WOODY PHIPPS [facility] GAS MAIN FITTER CORY MARTIN [place] [facility] [place] [facility] August 24, 2024 09:27 AM [facility] NOTE: LOCAL TITLE: [facility] INSTRUMENT MAKER AND REPAIRER PROGRESS NOTE STANDARD TITLE: [facility] NOTE DATE OF NOTE: AUGUST 24, 2024@09:27 ENTRY DATE: AUGUST 24, 2024@09:27:23 AUTHOR: MARGO MARTIN EXP COSIGNER: URGENCY: STATUS: COMPLETED [facility] INSTRUMENT MAKER AND REPAIRER PROGRESS NOTE Has ADDENDA was seen for: ( )routine visit (x) problem visit Identified by name, , address and facial recognition [facility] Ready: Yes [x] No [ ] Chief complaint:Pt is a 89 seen for follow up of medical problems as noted below. HPI:89 yo M seen for post hospital f/u. [place] [facility] [place] 07/10/24-07/14/24 Followed by [facility] 07/14/24-08/18/24. I was notified by [facility] of dc on 08/19/34 w questions on medication rec. Patients previous non VA PCP Dr. Wilson retired and he is to see new PCP Dr. Morgan españa [place] [facility] [place], however is looking to have a video visit as keyshawn Sagastume is not able to take by himself, and he is worried about patients safety d/t high fall risk. Awaiting call back from PCP office. At visit today was Melani RN from [facility], daughter Latisha, keyshawn Sagastume, and another family member. Patients keyshawn Sagastume whom is also a is dealing w his own medical needs and has some limitations surrounding his grandfathers care. VA will do a [employer] tool to determine if patient is eligable for any additional [employer] hours to assist w ADL/IADL needs. Appears [facility] referred patient to [facility] for blood transfusion. Patient and family wishes to have this done via [facility] if this is needed. Patient feels he has pill burden with the change of his meds. Explained repeat labs will be obtained to determine what is needed. Patients has had hematuria and Dr. Cuello and Dr. Lea are following. Rosalia is currently on hold and UA was obtained per urology today. PCP: Dr. Aldo Mora 08/25/24 11:30am [phone] urology: Dr. Lea [phone] cardiology: Dr Cuello following q 6 months Optometry: Randall Blake [phone] non [place] pharmacy: [facility] 1- 2x weekly - Jane [phone]/ [phone] PMH: Active problems - Computerized Problem List is the source for the followin. Chronic kidney disease 2. Ischemic congestive cardiomyopathy 3. Lower urinary tract symptoms due to benign prostatic hypertrophy urinary retention w SP cath 4. History of cardiac catheterization 5. Frail elderly 6. Long-term current use of anticoagulant 7. CHF - Congestive Heart Failure ([facility] [id number]) 8. HTN - Hypertension ([facility] [id number]) 9. Hyperlipidemia ([facility] [id number]) 10. Diabetes Mellitus Type 2 ([facility] [id number]) 11. CAD - Coronary Artery Disease ([facility] [id number]) 12. OA - Osteoarthritis ([facility] [id number]) 13. AF - Atrial fibrillation 14. Under care of multiple providers non [place] PCP: Dimitri Wilson [phone]: dual care note sent 04/28/24 Cardiology: Yosef Cuello [phone] Optometry: Randall Blake [phone] [facility]: fax# [phone] Allergies: Patient has answered NKA The following VA and Non-VA meds were reconciled with patient: Active and Recently Outpatient Medications (excluding Supplies): OUTPT ACETAMINOPHEN 500MG TAB (Status = Active) TAKE TWO TABLETS BY MOUTH TWICE DAILY NEEDED FOR PAIN Rx# [id number] Last Released: 05/01/24 Qty/Days Supply: 100/30 Rx Expiration Date: 04/28/25 Refills Remainin Indication: FOR PAIN OUTPT AMIODARONE HCL 200MG TAB (Status = Active) TAKE ONE TABLET BY MOUTH ONCE DAILY FOR VENTRICULAR FIBRILLATION Rx# [id number] Last Released: 06/17/24 Qty/Days Supply: 9090 Rx Expiration Date: 04/28/25 Refills Remainin Indication: FOR VENTRICULAR FIBRILLATION OUTPT APIXABAN 5MG TAB (Status = Active) TAKE ONE-HALF TABLET BY MOUTH EVERY 12 HOURS FOR ATRIAL FIBRILLATION Rx# [id number] Last Released: 05/19/24 Qty/Days Supply: 90 Rx Expiration Date: 05/19/25 Refills Remainin Indication: ATRIAL FIBRILLATION OUTPT ATORVASTATIN CALCIUM 40MG TAB (Status = Active) TAKE ONE TABLET BY MOUTH AT BEDTIME FOR HIGH CHOLESTEROL Rx# [id number] Last Released: 05/01/24 Qty/Days Supply: Rx Expiration Date: 04/28/25 Refills Remainin Indication: FOR HIGH CHOLESTEROL Non-VA CYANOCOBALAMIN 1000MCG TAB TAKE ONE TABLET BY MOUTH ONCE DAILY Medication prescribed by Non-VA provider. Non-VA DOCUSATE NA 100MG CAP TAKE 1 CAPSULE BY MOUTH ONCE DAILY NEEDED Medication prescribed by Non-VA provider. Non-VA FERROUS SULFATE 325MG TAB TAKE ONE TABLET BY MOUTH ONCE DAILY Medication prescribed by Non-VA provider. Non-VA GLIPIZIDE 5MG TAB TAKE ONE-HALF TABLET BY MOUTH ONCE DAILY Medication prescribed by Non-VA provider. Non-VA MAGNESIUM OXIDE 400MG TAB TAKE ONE TABLET BY MOUTH ONCE DAILY Medication prescribed by Non-VA provider. Non-VA METHENAMINE HIPPURATE 1GM TAB TAKE ONE TABLET BY MOUTH ONCE DAILY May 22, 2024 urology Indication: FOR URINARY TRACT INFECTION PREVENTION Non-VA MIDODRINE HCL 2.5MG TAB TAKE ONE TABLET BY MOUTH TWICE DAILY Medication prescribed by Non-VA provider. Non-VA SENNOSIDES 8.6MG TAB TAKE ONE TABLET BY MOUTH ONCE DAILY NEEDED Medication prescribed by Non-VA provider. Non-VA THIAMINE 100MG TAB TAKE ONE TABLET BY MOUTH ONCE DAILY Medication prescribed by Non-VA provider. [place] [facility] [place] [place]24 for acute UTI/sepsis (e. coli sensitive to cephalosporins) associated w catheter. [facility] [place] septicemia r/t UTI FMH: mother: d. [place] 59 father: d. 58 cirrhosis/ETOH brother: d. cancer sister: d. cancer PSxHX: SP cath 2023 right inguinal hernia repair 40's hx of cardiac cath cataract repair HISTORY: PERIOD OF SERVICE - [facility] FROM Apr TO Feb COMBAT SERVICE INDICATED: No SH: MARITAL STATUS - x 9 years retired 20 years ago Has 5 step children: daughter Latisha 3 cats Lives w Son Christina and grandson Ihsan [employer] via [employer] fluid intake: 2 16 ounce bottles water/day 1 20 ounce vit water daily 2 coffees in AM (uses 1 K cup for both cups) Review of systems: Denies cough, SOB, CP, edema. No GI/ concerns. VITAL SIGNS: B/P: 118/70 (08/24/2024 14:14) Pulse: 82 (08/24/2024 14:14) Temperature: 98 F [36.7 C] (08/24/2024 14:14) Weight: 160 lb [72.57 kg] (03/30/2024 21:50) Height: BMI: BMI: Pain: 0 (08/24/2024 14:14) (0-10 scale) Pulse Ox:Measurement DT POx (L/MIN)(%) 08/24/2024 14:14 99 pt is alert and oriented x4. NAD. well kempt, mood appropriate, good eye contact HEENT: normal, pharynx normal, oral mucosa moist NECK: supple, no JVD CVS: regular rate and rhythm normal S1S2 no S3 or Murmur Lungs: clear/dim to auscultation throughout, no use of accessory muscles ABD: Benign, positive BS x 4 EXT: no edema, compression stockings on Knowns it is Spring 2024 and saturday, knows address 2/3 word recall A/P: Active problems - Computerized Problem List is the source for the following: >nightmares: >confusion: appears to be new since STR monitor neurology consult as warrented >FTT: was started on remeron 7.5mg qhs at STR consult w nutirionist regarding meal replacements >HTN: ARB stopped d/t ARF >hypotension: midodrine added and all antihypertensives stopped >uroseptis: >BPH w SB cath was on diflucan 100mg daily x 7 days cont methenamine DCD meds: vesicare dcd d/t risk of confusion finesteride and flomax d/t hypotension f/u w Dr. Lea >CHF: EF 15-20% >CAD: occlusion of the LAD (patient is not a candidate for stents or open heart surgery) monitor weights >afib: on amiodorone 200mg daily for rate control eliquis on HOLD per cards/urology >DM: A1C 7.6 DCd metformin inpatient cont on glipizide 2.5mg daily monitor >anemia: felt to be d/t hematuria on Iron + C 07/23/24 [facility] 8 stool occult NEG EDG 05/16 s/p food bolus issue/diarrhea appears patient was referred for blood transfusion. Plan to corrdinate w non VA PCP to update labs and refer for transfusion via [facility] if needed HM: (x)advance directive UTD: DNR did discuss possible hospice in the future based on overall health seeking f/u labs BMP, MAG, BNP, B12, Iron panel, CBC w diff, B1 via non VA PCP Review of medical records: 30 min Time spent w patient including shared decision makin min Post visit documentation: [address] time: 60 min No barriers; Patient understands and agrees to current treatment plan. Medication Reconciliation: Medication List: JLV Link Data on this list may not be complete. Please check JLV. Allergies/ADRs (Tool #5) FACILITY ALLERGY/ADR -------- No Remote Allergy/ADR Data available for this patient [place] [facility] [place] [facility] No Known Allergies Med. Reconciliation (Tool #1) INCLUDED IN THIS LIST: Alphabetical list of active outpatient prescriptions dispensed from this VA (local) and dispensed from another VA or DoD facility (remote) as well as inpatient orders (local pending and active), local clinic medications, locally documented non-VA medications, and local prescriptions that have or been discontinued in the past 90 days. Non-VA Meds Last Documented On: August 24, 2024 NOTE The display of VA prescriptions dispensed from another [place] or [facility] facility (remote) is limited to active outpatient prescription entries matched to National Drug File at the originating site and may not include some items such as investigational drugs, compounds, etc. NOT INCLUDED IN THIS LIST: Medications self-entered by the patient into personal health records (i.e. [employer]) are NOT included in this list. Non-VA medications documented outside this [place], remote inpatient orders (regardless of status) and remote clinic medications are NOT included in this list. The patient and provider must always discuss medications the patient is taking, regardless of where the medication was dispensed or obtained. OUTPT ACETAMINOPHEN 500MG TAB (Status = Active) TAKE TWO TABLETS BY MOUTH TWICE DAILY NEEDED FOR PAIN Rx# [id number] Last Released: 05/01/24 Qty/Days Supply: Rx Expiration Date: 04/28/25 Refills Remainin Indication: FOR PAIN OUTPT AMIODARONE HCL 200MG TAB (Status = Active) TAKE ONE TABLET BY MOUTH ONCE DAILY FOR VENTRICULAR FIBRILLATION Rx# [id number] Last Released: 06/17/24 Qty/Days Supply: Rx Expiration Date: 04/28/25 Refills Remainin Indication: FOR VENTRICULAR FIBRILLATION OUTPT APIXABAN 5MG TAB (Status = Active) TAKE ONE-HALF TABLET BY MOUTH EVERY 12 HOURS FOR ATRIAL FIBRILLATION Rx# [id number] Last Released: 05/19/24 Qty/Days Supply: Rx Expiration Date: 05/19/25 Refills Remainin Indication: ATRIAL FIBRILLATION OUTPT ATORVASTATIN CALCIUM 40MG TAB (Status = Active) TAKE ONE TABLET BY MOUTH AT BEDTIME FOR HIGH CHOLESTEROL Rx# [id number] Last Released: 05/01/24 Qty/Days Supply: Rx Expiration Date: 04/28/25 Refills Remainin Indication: FOR HIGH CHOLESTEROL Non-VA CYANOCOBALAMIN 1000MCG TAB TAKE ONE TABLET BY MOUTH ONCE DAILY Medication prescribed by Non-VA provider. Non-VA DOCUSATE NA 100MG CAP TAKE 1 CAPSULE BY MOUTH ONCE DAILY NEEDED Medication prescribed by Non-VA provider. Non-VA FERROUS SULFATE 325MG TAB TAKE ONE TABLET BY MOUTH ONCE DAILY Medication prescribed by Non-VA provider. OUTPT FINASTERIDE 5MG TAB (Status = Discontinued) TAKE ONE TABLET BY MOUTH ONCE DAILY FOR ENLARGED PROSTATE Rx# [id number] Last Released: 05/01/24 Qty/Days Supply: Rx Expiration Date: 04/28/25 Refills Remainin Indication: FOR ENLARGED PROSTATE OUTPT FUROSEMIDE 20MG TAB (Status = Discontinued) TAKE ONE TABLET BY MOUTH ONCE DAILY TO REMOVE FLUID/CONTROL BLOOD PRESSURE Rx# [id number] Last Released: 05/01/24 Qty/Days Supply: Rx Expiration Date: 04/28/25 Refills Remainin Indication: FOR HIGH BLOOD PRESSURE Non-VA GLIPIZIDE 5MG TAB TAKE ONE-HALF TABLET BY MOUTH ONCE DAILY Medication prescribed by Non-VA provider. Non-VA MAGNESIUM OXIDE 400MG TAB TAKE ONE TABLET BY MOUTH ONCE DAILY Medication prescribed by Non-VA provider. OUTPT METFORMIN HCL 500MG 24HR SA TAB (Status = Discontinued) TAKE TWO TABLETS BY MOUTH TWICE DAILY FOR TYPE 2 DIABETES MELLITUS Rx# [id number] Last Released: 05/01/24 Qty/Days Supply: Rx Expiration Date: 04/28/25 Refills Remainin Indication: FOR TYPE 2 DIABETES MELLITUS Non-VA METHENAMINE HIPPURATE 1GM TAB TAKE ONE TABLET BY MOUTH ONCE DAILY May 22, 2024 urology Indication: FOR URINARY TRACT INFECTION PREVENTION Non-VA MIDODRINE HCL 2.5MG TAB TAKE ONE TABLET BY MOUTH TWICE DAILY Medication prescribed by Non-VA provider. Non-VA SENNOSIDES 8.6MG TAB TAKE ONE TABLET BY MOUTH ONCE DAILY NEEDED Medication prescribed by Non-VA provider. OUTPT SOLIFENACIN SUCCINATE 5MG TAB (Status = Discontinued) TAKE ONE TABLET BY MOUTH ONCE DAILY FOR OVERACTIVE BLADDER Rx# [id number] Last Released: 04/28/24 Qty/Days Supply: Rx Expiration Date: 04/28/25 Refills Remainin Indication: FOR OVERACTIVE BLADDER OUTPT SPIRONOLACTONE 25MG TAB (Status = Discontinued) TAKE ONE TABLET BY MOUTH ONCE DAILY FOR HEART FAILURE Rx# [id number] Last Released: 05/01/24 Qty/Days Supply: Rx Expiration Date: 04/28/25 Refills Remainin Indication: FOR HEART FAILURE OUTPT TAMSULOSIN HCL 0.4MG CAP (Status = Discontinued) TAKE ONE CAPSULE BY MOUTH ONCE DAILY FOR ENLARGED PROSTATE Rx# [id number] Last Released: 05/01/24 Qty/Days Supply: Rx Expiration Date: 04/28/25 Refills Remainin Indication: FOR ENLARGED PROSTATE Non-VA THIAMINE 100MG TAB TAKE ONE TABLET BY MOUTH ONCE DAILY Medication prescribed by Non-VA provider. SUPPLIES OUTPT DEPEND UNDERWEAR,MAXIMUM,MEN LARGE (Status = Active) USE 1 BRIEF DIRECTED TWICE DAILY NEEDED Rx# [id number] Last Released: 04/29/24 Qty/Days Supply: Rx Expiration Date: 04/28/25 Refills Remainin OUTPT MEDICATION DISPOSAL PATIENT PKT (Status = ) USE 1 ENVELOPE DIRECTED ONE TIME TO DISPOSE OF UNUSED MEDICATIONS Rx# [id number] Last Released: 04/29/24 Qty/Days Supply: 04/22 Rx Expiration Date: 05/27/24 Refills Remainin OUTPT MEDICATION DISPOSAL PATIENT PKT (Status = Pending) DISPOSAL PATIENT PKT USE 1 ENVELOPE DIRECTED ONE TIME TO DISPOSE OF UNUSED MEDICATIONS Renewed from Rx# [id number] Qty/Days Supply: 04/22 Login Date: 08/24/24 Refills Ordered: 0 PHARMACY TERMS AND POSSIBLE PATIENT ACTIONS INPT = [place] inpatient order IV = PR intravenous medication OUTPT = PR outpatient prescription PHARMACY POSSIBLE PATIENT TERMS EXPLANATION ACTIONS -------- ----- ACTIVE A prescription that can be If you have refills, filled at the local [place] pharmacy. you may request a refill of this prescription from your VA pharmacy. CLINIC A medication you received during If you have questions a visit to a [place] clinic or about this medication emergency department. contact your VA healthcare team. DISCONTINUED A prescription your provider has Contact your VA stopped. It is no longer healthcare team if you available to be sent to you or need more of this picked up at the [place] pharmacy medication. window. A prescription which is too old Contact your VA to fill. This does not refer to healthcare team if you the expiration date of the need more of this medication in the container. medication. NON-VA A medication that came from If this medication someplace other than a VA information is pharmacy. This may be a incorrect or out of prescription from either the VA date, please tell your or non VA providers that was VA healthcare team. filled outside the VA. Or, it may be an [id number]-[id number] (OTC), herbal, dietary supplements or sample medication. ON HOLD An active prescription that will Contact your VA not be filled until pharmacy pharmacy when you need resolves the issue. more of this medication. PARKED An active prescription that will Contact your VA not be filled until the patient pharmacy when you need requests it. this medication. PENDING This prescription order has been If you have been sent to the pharmacy for review instructed to start and is not ready yet. this medication now, contact your VA pharmacy. SUSPENDED An active prescription that is Contact your VA not scheduled to be filled yet. pharmacy if you need You should receive it before this medication now. you run out. /michell/ JUVENTINO MARTIN RN,MSN,BACTERIOLOGIST FOOD-C HB NURSE PRACTITIONER Signed: 08/24/2024 14:47 08/24/2024 ADDENDUM STATUS: COMPLETED Nutrition: Please evaluate for Glucerna /michell/ JUVENTINO MARTIN RN,MSN,BACTERIOLOGIST FOOD-C HB NURSE PRACTITIONER Signed: 08/24/2024 14:48 Receipt Acknowledged By: * AWAITING SIGNATURE * DIANE SANTOS 08/24/2024 ADDENDUM STATUS: COMPLETED Please evaluate for bed alarm and grab bars. Thank you. /sevne MARTIN RN,MSN,BACTERIOLOGIST FOOD-C HB NURSE PRACTITIONER Signed: 08/24/2024 14:49 Receipt Acknowledged By: * AWAITING SIGNATURE * MILDRED VAZQUEZ 08/24/2024 ADDENDUM STATUS: COMPLETED Keyshawn Ihsan contact [phone] PCP: Dr. Aldo Mora 08/25/24 11:30am changed to telehealth [place] [facility] PLEASE SEND [place] TO [place] [facility] [place] [facility] [place] /michell/ JUVENTINO MARTIN RN,MSN,BACTERIOLOGIST FOOD-C HB NURSE PRACTITIONER Signed: 08/24/2024 15:36 Receipt Acknowledged By: * AWAITING SIGNATURE * ARASELI VARGAS [facility] August 20, 2024 12:19 PM ADDENDUM: LOCAL TITLE: Addendum STANDARD TITLE: ADDENDUM DATE OF NOTE: AUGUST 20, 2024@12:19:38 ENTRY DATE: AUGUST 20, 2024@12:19:39 AUTHOR: LISA VIVAS COSIGNER: URGENCY: STATUS: COMPLETED [place] d/cd from [facility] on 08/19/24. PCP to make post hosp f/u on 08/24/24. 's info added back in [facility]IST[facility] as he was previously administratively d/cd. HBPC RN will schedule visit for HBPC administrative re- assessment. update to team /es/ LISA VIVAS RN, BSN HBPC BATTER DEPOSITOR Signed: 08/20/2024 12:22 Receipt Acknowledged By: 08/20/2024 12:45 /es/ WOODY PHIPPS HBPC GAS MAIN FITTER 08/20/2024 14:29 /es/ SHELLEY HERBERT [facility] HBPC Substation Operator 08/20/2024 15:47 /es/ Mildred Vazquez HBPC Occupational Therapist 08/24/2024 08:53 /es/ DIANE SANTOS STAFF DIETITIAN 08/21/2024 08:23 /es/ SAMMIE CARDONA RD, LDN REGISTERED DIETITIAN --- Original Document --- 08/20/24 [facility]PC TELEPHONE NOTE: Duration of call: 30min Call placed to Melani ([phone]), RN CM from [facility]; d/cd home 08/19/24. Reviewed that there [...] concerns. The below information was reviewed w/ ELISABETH nurse: *Dr Lea Urology f/u 08/25 at [...] care as ordered Updated VNA RN that [facility] PCP will make post hosp f/u on 08/24/24 See d/c summary as part of full d/c record from [facility]. [place] med list has NOT yet been updated until full med reconciliation can be completed after VNA nurse visit today and provider post hosp f/u visit on 08/24. /michell/ LISA VIVAS RN, BSN HBPC BATTER DEPOSITOR Signed: 08/20/2024 12:12 Receipt Acknowledged By: 08/20/2024 12:46 /michell/ MIRI SAGE [facility] Clinical Pharmacist Practitioner 08/21/2024 09:19 /michell/ JUVENTINO MARTIN RN,MSN,BACTERIOLOGIST FOOD-C HB NURSE PRACTITIONER 08/21/2024 12:46 /michell/ MD SANGEETHA Milan JAIMIE [place] [facility]L [facility] [place] [facility] August 20, 2024 11:17 AM HBPC NOTE: LOCAL TITLE: HBPC TELEPHONE NOTE STANDARD TITLE: HBPC NOTE DATE OF NOTE: AUGUST 20, 2024@11:17 ENTRY DATE: AUGUST 20, 2024@11:17:37 AUTHOR: LISA VIVAS EXP COSIGNER: URGENCY: STATUS: COMPLETED [facility]PC TELEPHONE NOTE Has ADDENDA Duration of call: 30min Call placed to Melani ([phone]), SANAM CM from [facility]; d/cd home 08/19/24. Reviewed that there are noted to be multiple med changes. Provided med list from [facility] has incorrect indications for use for a couple of meds which was causing some confusion. We reviewed all the changes as D/C provider wrote a very detailed d/c summary with ongoing plan including all med changes. Melani will be visiting today and will call with any questions or concerns. The below information was reviewed w/ A nurse: *Dr Lea Urology f/u 08/25 at [...] care as ordered Updated VNA RN that [facility] PCP will make post hosp f/u on 08/24/24 See MD d/c summary as part of full d/c record from [facility]. [place] med list has NOT yet been updated until full med reconciliation can be completed after VNA nurse visit today and provider post hosp f/u visit on 08/24. /michell/ LISA VIVAS RN, BSN HBPC BATTER DEPOSITOR Signed: 08/20/2024 12:12 Receipt Acknowledged By: 08/20/2024 12:46 /es/ MIRI SAGE [facility]PC Clinical Pharmacist Practitioner 08/21/2024 09:19 /es/ JUVENTINO MARTIN RN,MSN,BACTERIOLOGIST FOOD-C HBPC NURSE PRACTITIONER 08/21/2024 12:46 /es/ ALAN Mullen MD 08/20/2024 ADDENDUM STATUS: COMPLETED [place] d/cd from [facility] on 08/19/24. PCP to make post hosp f/u on 08/24/24. 's info added back in [facility]IST[facility] as he was previously administratively d/cd. HBPC RN will schedule visit for HBPC administrative re- assessment. update to team /michell/ LISA VIVAS RN, BSN HBPC BATTER DEPOSITOR Signed: 08/20/2024 12:22 Receipt Acknowledged By: 08/20/2024 12:45 /es/ WOODY PHIPPS HBPC GAS MAIN FITTER 08/20/2024 14:29 /es/ DIEGO BROWN HBPC Substation Operator 08/20/2024 15:47 /es/ Mildred Vazquez HBPC Occupational Therapist * AWAITING SIGNATURE * DIANE SANTOS 08/21/2024 08:23 /es/ SAMMIE CARDONA, RD, LDN REGISTERED DIETITIAN LISA VIVAS CNTRL [facility]
--- OUTSIDE RECORDS SUMMARY | 2024-08-25 13:36 | XMS_ITS ---
Author Name [facility] [place] Organization [facility] [place] Address [address] [place] [address] Care Team Providers Care Batteryman Name Role Phone JUVENTINO MARTIN Primary Care Provider Unav ailable PIEDAD SHELLEY Unavailable Unavailable YESSENIA ARNOLD, ALAN Unavailable Unavailable DIANE SANTOS Unavailable Unavailable CHAPALEKS, ARASELI Unavailable Unavailable WOODY PHIPPS Unavailable Unavailable LISA VIVAS Unavailable Unavailable BHARATI VEGA Unavailable Unavailable GAY [...] PART A Apr 22, 2001 PART A [id number] JENIFER ANAYA PATIENT MEDICARE (WNR) MEDICARE (M) PART B Apr 22, 2001 PART B [id number] JENIFER ANAYA PATIENT [employer] [place] PLAN F May 11, 2008 PLANF [id number] JENIFER ANAYA PATIENT Selected Encounter This section includes the information on record at [place] for the Encounter. Date/Time Encounter Type Encounter Description Reason Pro vider Source August 25, 2024 08:35 AM Outpatient Encounter ADMIN PAT ACTIVTIES (MASNONCT) [...] Order BASIC METABOLIC PANEL (non-fasting) BLOOD (SST-SERUM) [facility] Aug 16, 2024 12:00 AM Laboratory - Chemistry Order HEMOGLOBIN A1C PANEL BLOOD (LAV-BLOOD) [facility] Aug 16, 2024 12:00 AM Laboratory - Chemistry Order CBC AND DIFF (AUTO) BLOOD (LAV-BLOOD) [facility] Aug 16, 2024 12:00 AM Laboratory - Chemistry Order MICROALBUMIN CREATININE RATIO PANEL URINE (RANDOM) [facility] Encounter Notes: All associated encounter notes This section contains the clinical notes associated to the Encounter. Date/Time Encounter Note(s) Provider Source August 25, 2024 08:35 AM ADMINISTRATIVE NOTE: LOCAL TITLE: CCC: SCHEDULING ADMINISTRATION STANDARD TITLE: ADMINISTRATIVE NOTE DATE OF NOTE: AUGUST 25, 2024@08:35:23 ENTRY DATE: AUGUST 25, 2024@08:35:23 AUTHOR: MIKEY DINH COSIGNER: URGENCY: STATUS: COMPLETED CCC: SCHEDULING ADMINISTRATION Has ADDENDA Caller Verification Emergency Contact: CHRISTINA MCCOY Emergency Contact Caller/Recipient Relation to Patient: Self Caller Name: JENIFER ANAYA Administrative Administrative Note Reason: Other Administrative Note Comments: Veterans son Christina wanted to confirm labs to be drawn by VNA nurse next time she is at the house. He was hoping to no have to take anywhere to get the labs done. He would like confirmation at [phone]. IMPORTANT: This note was created by [facility] Clinical Contact Center staff. Please do not alert the staff member by adding them as a signer for future communications. Alerts are not monitored by this user. /michell/ MIKEY DINH VISN 1 CCC AMSA Signed: 08/25/2024 08:35 Receipt Acknowledged By: 08/25/2024 10:58 /es/ LISA VIVAS RN, BSN HBPC PLAYERS ASSISTANT 08/25/2024 09:47 /es/ JUVENTINO MARTIN RN,MSN,CERTIFIED COMPOSITES TECHNICIAN-C [facility] NURSE PRACTITIONER 08/25/2024 ADDENDUM STATUS: UNSIGNED You may not VIEW this UNSIGNED Addendum. MIKEY DINH [place] [facility]
--- OUTSIDE RECORDS SUMMARY | 2024-08-25 13:36 | XMS_ITS | Encounter Summary ---
Author Organization [employer] Address [address] [place] [address] Care Team Providers Care Transformer Inspector Name Role Phone Unavailable Primary Care Provider Unavailabl e Encounter Details Date Type Department Care Team (Latest Contact Info) Description 06/22/2019 Abstract [facility] CONVERSIONS Dental, Provider, DDS Social History Tobacco [...]
--- OUTSIDE RECORDS SUMMARY | 2024-08-25 13:36 | XMS_ITS ---
Author Name [facility] [place] [place] Organization [facility] [place] Address [address] [place] [address] Care Team Providers Care Gold Buyer Name Role Phone JUVENTINO MARTIN Primary Care Provider Unav ailable PIEDAD SHELLEY Unavailable Unavailable YESSENIA ARNOLD, ALAN Unavailable Unavailable DIANE SANTOS Unavailable Unavailable CHAPALEKS, ARASELI Unavailable Unavailable DESIRE, WOODY Unavailable Unavailable MINI MURO Unavailable Unavailable BHARATI VEGA Unavailable Unavailable GAY [...] PART A Apr 22, 2001 PART A [id number] JENIFER ANAYA PATIENT MEDICARE (WNR) MEDICARE (M) PART B Apr 22, 2001 PART B [id number] JENIFER ANAYA PATIENT [employer] PLAN F May 11, 2008 PLANF [id number] ANAYAJENIFER DOUGLAS PATIENT Selected Encounter This section includes the information on record at [place] for the Encounter. Date/Time Encounter Type Encounter Description Reason Provider Source August 24, 2024 04:21 PM Outpatient Encounter [facility] Nursing (RN / LP) MINI MURO Encounter Template Text not used by [place] Plan of Treatment: Future Appointments (+ 6 months) and Future Tests (+/- 45 days) The Plan of Treatment section includes future care activities for the patient from all [place] treatmentfacilities. This section includes future appointments and [...] of theEncounter. The data comes from all [place] treatment facilities. Test Date/Time Test Type Test Details Facility Name Aug 16, 2024 12:00 AM Laboratory - Chemistry Order HEMOGLOBIN A1C PANEL BLOOD (LAV-BLOOD) [facility] Aug 16, 2024 12:00 AM Laboratory - Chemistry Order BASIC METABOLIC PANEL (non-fasting) BLOOD (SST-SERUM) [facility] Aug 16, 2024 12:00 AM Laboratory - Chemistry Order CBC AND DIFF (AUTO) BLOOD (LAV-BLOOD) [facility] Aug 16, 2024 12:00 AM Laboratory - Chemistry Order MICROALBUMIN CREATININE RATIO PANEL URINE (RANDOM) [facility] Vital Signs: All taken on the encounter date This section contains inpatient and outpatient Vital Signs collected on the date of the Encounter. Date/Time Temperature Pulse Blood Pressure Respiratory Rate SP02 Pain Height Weight Body Mass Index Source August 24, 2024 02:14 PM 98 82 118/70 16 99 0 [facility] Encounter Notes: All associated encounter notes This section contains the clinical notes associated to the Encounter. Date/Time Encounter Note(s) Provider Source August 24, 2024 04:21 PM GERIATRIC MEDICINE NOTE: LOCAL TITLE: PERSONAL CARE SERVICES CASE MIX TOOL STANDARD TITLE: GERIATRIC MEDICINE NOTE DATE OF NOTE: AUGUST 24, 2024@16:21:39 ENTRY DATE: AUGUST 24, 2024@16:21:39 AUTHOR: MINI MURO EXP COSIGNER: URGENCY: STATUS: COMPLETED HCBS Case Mix & Budget Tool (CASE MIX) Date Given: 08/24/2024 Clinician: Mini Muro Location: [address] : Jenifer Anaya SSN: [id number] : [birth year]) Gender: Male Type of Evaluation: Change in level of care Anticipated Start Date: 08/24/2024 Anticipated Length of Service: 12 months Case Mix Level: G ADL Category: High Questions and Answers: Q1. DRESSING *3 Cannot dress yourself and somebody dresses you. Q2. GROOMING *2 Needs and get daily help from another person. Q3. BATHING *5 Cannot bathe or shower, need complete help. Q4. EATING *2 Need and get help [...] cues. Q9. COMMUNICATION 0 Understood. Q10. TOILETING *5 Have bowel movements in your clothes more than once a week. Q11. MDS HC 2.0/CPS Cognitive Skill for Daily Decision Making 2 Moderately Impaired - decisions poor; cues/supervision required. Q12. MDS 2.0/CPS: Short Term Memory (recall of what was learned or known) 1 Memory problem Q13. SPECIAL TREATMENTS 2 One or more [place] such as: 10. Skin Care, 8. Ostomies & Catheters, 9. Wound Care/Decubiti Q14. CLINICAL MONITORING 1 1-2 shifts a day Q15. SPECIAL NURSING No Q16. NEUROMUSCULAR DIAGNOSIS No COMMENTS skip SOURCES 2. Informant, 3. Medical Record /michell/ MINI MURO RN, BSN [facility] CORE MAN Signed: 08/24/2024 16:23 Receipt Acknowledged By: 08/25/2024 07:06 /michell/ DIEGO TODD PURCHASED DEFENSE TRAVEL ADMINISTRATOR MINI MURO [facility]
--- OUTSIDE RECORDS SUMMARY | 2024-08-25 13:36 | XMS_ITS | Clinical Summary ---
Author Organization [employer] Address [address] [place] [address] Care Team Providers Care Derrick Man Name Role Phone Unavailable Primary Care Provider [...] 75+ series) 2011 COVID-19 Vaccine ( - 2023-2 5 season) 2023 Influenza Vaccine (#1) 2023 [...]
== END 2024-08-25 13:02 | disposition home or self-care (01) ==
LOC: HO.HMCH 12:03
PROVIDERS: PCP Internal Medicine
DX: R31.9 Hematuria, unspecified (principal); Z93.59 Other cystostomy status; E11.9 Type 2 diabetes mellitus without complications; Z79.01 Long term (current) use of anticoagulants; I10 Essential (primary) hypertension

== ENCOUNTER → 2024-08-25 12:03 | Outpatient (BNVA) | payer MEDICARE, OTHER, SELFPAY | PROVIDERS: PCP Internal Medicine ==

== ENCOUNTER 2024-08-26 11:07 | Outpatient (REF) | payer MEDICARE, OTHER, SELFPAY ==
[2024-08-26 11:11] LABS: MANUAL DIFF FLAG NO
[2024-08-26 11:16] LABS: Basophils Absolute Auto 0.1 X10*3/uL (0.0-0.2); Basophils Percent Auto 0.5 % (0-2); Eosinophils Absolute Auto 0.2 X10*3/uL (0.0-0.4); Eosinophils Percent Auto 1.6 % (0-4); Hematocrit 23.1 % (42.0-52.0); Hemoglobin 7.4 g/dl (14.0-18.0); Imm Gran Abs Auto 0.05 X10*3/uL (0.00-0.03); Imm Gran Pct Auto 0.4 % (0.0-0.4); Lymphocytes Absolute Auto 0.9 X10*3/uL (1.2-4.9); Lymphocytes Percent Auto 7.5 % (20-40); Mean Corpuscular Hemoglobin 28.8 pg (27.0-33.0); Mean Corpuscular Volume 89.9 fL (80.0-98.0); Mean Platelet Volume 9.1 fL (9.4-12.4); Monocytes Absolute Auto 0.9 X10*3/uL (0.1-1.2); Monocytes Percent Auto 7.6 % (2-11); Neutrophils Absolute Auto 9.8 x10*3/uL (2.0-8.3); Neutrophils Percent Auto 82.4 % (45-73); Platelet Count 458 X10*3/uL (160-400); Red Blood Count 2.57 X10*6/uL (4.60-5.80); Red Cell Distribution Width 15.7 % (11.0-16.0); White Blood Count 11.9 X10*3/uL (4.8-10.8)
[2024-08-26 11:30] LABS: Estimated Average Glucose 143 mg/dL; Hemoglobin A1c % 6.6 % (<6.0)
[2024-08-26 11:50] LABS: Anion Gap 13 (12-20); Blood Urea Nitrogen 18 mg/dL (9-16); Calcium 8.5 mg/dL (8.4-10.2); Carbon Dioxide 23 mmol/L (22-29); Chloride 102 mmol/L (96-108); Creatinine Urine 135.01 mg/dL; Estimated Glomerular Filt Rate > 60; Glucose Random 245 mg/dL (60-115); Microalbum/Creatinine Ratio Ur 347.3 ug/mg cr (<30); Potassium 4.2 mmol/L (3.3-5.1); Sodium 134 mmol/L (135-145)
--- OUTSIDE RECORDS SUMMARY | 2024-08-26 12:35 | XMS_ITS | Encounter Summary ---
Author Organization [facility] Address [address] [place] [address] Care Team Providers Care Water Resource Engineer Name Role Phone Melecio Ying MD Primary Care Provider [phone] Encounter Details Date Type Department Care Team (Late st Contact Info) Description 08/14/[address] [facility] - Main Lab [address] [place] [address] Melecio Ying MD [address] [place] [phone] Acute kidney failure with tubular necrosis (CMS/HCC [...] on file documented as of this encounter Procedures Procedure [...] mmol/L LAB CHEMISTRY METHOD 08/17/2024 12:46 PM [facility] Potassium 4.7 3.5 - 5.5 mmol/L LAB CHEMISTRY METHOD 08/17/2024 12:46 PM [facility] Chloride 103 96 - 110 mmol/L LAB CHEMISTRY METHOD 08/17/2024 12:46 PM [facility] CO2 23 21 - 32 mmol/L LAB CHEMISTRY METHOD 08/17/2024 12:46 PM [facility] Anion Gap 8 3 - 11 LAB CHEMISTRY METHOD 08/17/2024 12:46 PM [facility] Glucose 123(H) 70 - 100 mg/dL LAB CHEMISTRY METHOD 08/17/2024 12:46 PM [facility] BUN 19 5 - 25 mg/dL LAB CHEMISTRY METHOD 08/17/2024 12:46 PM [facility] Creatinine 1.24 0.70 - 1.30 mg/dL LAB CHEMISTRY METHOD 08/17/2024 12:46 PM [facility] eGFR 56(L) >=60 mL/min/1. 73m2 LAB CHEMISTRY METHOD 08/17/2024 12:46 PM [facility] Comment:Calculation based on the??Chronic Kidney Disease Epidemiology Collaboration (CKD-EPI) equation refit??without adjustment for race. BUN/Creatinine Ratio 15.3 LAB CHEMISTRY METHOD 08/17/2024 12:46 PM [facility] Calcium 8.7 8.5 - 10.5 mg/dL LAB CHEMISTRY METHOD 08/17/2024 12:46 PM [facility] AST (SGOT) 9(L) 10 - 42 unit/L LAB CHEMISTRY METHOD 08/17/2024 12:46 PM [facility] ALT (SGPT) 12 10 - 60 unit/L LAB CHEMISTRY METHOD 08/17/2024 12:46 PM [facility] Alkaline Phosphatase 101 42 - 121 unit/L LAB CHEMISTRY METHOD 08/17/2024 12:46 PM EDT [facility] Total Protein 6.8 6.0 - 8.0 g/dL LAB CHEMISTRY METHOD 08/17/2024 12:46 PM [facility] Albumin 2.5(L) 3.2 - 5.0 g/dL LAB CHEMISTRY METHOD 08/17/2024 12:46 PM T [facility] Total Bilirubin 0.5 0.0 - 1.4 mg/dL LAB CHEMISTRY METHOD 08/17/2024 12:46 PM T [facility] Blood Venous blood specimen / Unknown Venipuncture / Unknown 08/17/2024 5:16 AM EDT 08/17/2024 10:04 AM EDT us Melecio Ying MD LAB BLOOD ORDERABLES Final Resu lt [facility] [address] [place] [address], [place] [phone] * (ABNORMAL) Complete blood count (08/17/2024 5:16 AM EDT) WBC 9.6 4.8 - 10.8 K/mcL LAB HEMETOLOGY METHOD 08/17/2024 11:44 AM [facility] RBC 2.70(L) 4.50 - 5.50 M/mcL LAB HEMETOLOGY METHOD 08/17/2024 11:44 AM EDT [facility] Hemoglobin 7.7(L) 13.5 - 17.5 g/dL LAB HEMETOLOGY METHOD 08/17/2024 11:44 AM [facility] Hematocrit 25.4(L) 42.0 - 54.0 % LAB HEMETOLOGY METHOD 08/17/2024 11:44 AM [facility] MCV 95.1 79.0 - 98.0 FL LAB HEMETOLOGY METHOD 08/17/2024 11:44 AM EDT [facility] MCH 28.8 27.0 - 32.0 pcg LAB HEMETOLOGY METHOD 08/17/2024 11:44 AM EDT [facility] MCHC 30.3(L) 32.0 - 37.0 g/dL LAB HEMETOLOGY METHOD 08/17/2024 11:44 AM EDT [facility] RDW 15.8(H) 11.0 - 15.0 % LAB HEMETOLOGY METHOD 08/17/2024 11:44 AM EDT [facility] Platelets 506(H) 130 - 400 K/mcL LAB HEMETOLOGY METHOD 08/17/2024 11:44 AM EDT [facility] MPV 9.2 7.0 - 11.0 FL LAB HEMETOLOGY METHOD 08/17/2024 11:44 AM EDT [facility] NRBC 0.0 <1.0 % LAB HEMETOLOGY METHOD 08/17/2024 11:44 AM EDT [facility] NRBC Absolute 0.00 <0.10 K/mcL LAB HEMETOLOGY METHOD 08/17/2024 11:44 AM T [facility] Blood Venous blood specimen / Unknown Venipuncture / Unknown 08/17/2024 5:16 AM EDT 08/17/2024 10:04 AM EDT us Melecio Ying MD LAB BLOOD ORDERABLES Final Resu lt [facility] [address] [place] [address], documented in this encounter Visit Diagnoses Diagnosis Acute kidney failure with tubular necrosis (CMS/HCC V24) documented in this encounter Care Teams Water Resource Engineer Relationship Specialty Start Date End Date Melecio Ying MD [address] [place] [phone] PCP - General Internal Medicine 07/15/24 documented as of this encounter
--- OUTSIDE RECORDS SUMMARY | 2024-08-26 12:35 | XMS_ITS | Encounter Summary ---
Author Organization [facility] Address [address] [place] [address] Care Team Providers Care File Clerk Data Entry Name Role Phone Melecio Ying MD Primary Care Provider [phone] Encounter Details Date Type Department Care Team (Late st Contact Info) Description 08/12/2024 Lab Requisition [facility] - Main Lab [address] [facility] [place] [phone] Melecio Ying MD [address] [place] [phone] Acute kidney failure with tubular necrosis (CMS/HCC [...] Associated Diagnosis Comments COMPLETE BLOOD COUNT Routine 08/13/2024 5:52 AM EDT Acute kidney failure with tubular necrosis (CMS/HCC V24) BASIC METABOLIC PANEL Routine 08/13/2024 5:52 AM EDT Acute kidney failure with tubular necrosis (CMS/HCC V24) documented in this encounter Results * (ABNORMAL) Basic metabolic panel (08/13/2024 5:52 AM EDT) Sodium 137 133 - 145 mmol/L LAB CHEMISTRY METHOD 08/13/2024 10:54 AM [facility] Potassium 4.3 3.5 - 5.5 mmol/L LAB CHEMISTRY METHOD 08/13/2024 10:54 AM [facility] Chloride 105 96 - 110 mmol/L LAB CHEMISTRY METHOD 08/13/2024 10:54 AM [facility] CO2 21 21 - 32 mmol/L LAB CHEMISTRY METHOD 08/13/2024 10:54 AM [facility] Anion Gap 11 3 - 11 LAB CHEMISTRY METHOD 08/13/2024 10:54 AM [facility] Glucose 115(H) 70 - 100 mg/dL LAB CHEMISTRY METHOD 08/13/2024 10:54 AM [facility] BUN 22 5 - 25 mg/dL LAB CHEMISTRY METHOD 08/13/2024 10:54 AM [facility] Creatinine 1.34(H) 0.70 - 1.30 mg/dL LAB CHEMISTRY METHOD 08/13/2024 10:54 AM [facility] eGFR 51(L) >=60 mL/min/1. 73m2 LAB CHEMISTRY METHOD 08/13/2024 10:54 AM [facility] Comment:Calculation based on the??Chronic Kidney Disease Epidemiology Collaboration (CKD-EPI) equation refit??without adjustment for race. BUN/Creatinine Ratio 16.4 LAB CHEMISTRY METHOD 08/13/2024 10:54 AM [facility] Calcium 8.5 8.5 - 10.5 mg/dL LAB CHEMISTRY METHOD 08/13/2024 10:54 AM [facility] Blood Venous blood specimen / Unknown Venipuncture / Unknown 08/13/2024 5:52 AM EDT 08/13/2024 9:40 AM EDT us Melecio Ying MD LAB BLOOD ORDERABLES Final Resu lt [facility] [address] [place] [address], * (ABNORMAL) Complete blood count (08/13/2024 5:52 AM EDT) [facility] Signature WBC 9.1 4.8 - 10.8 K/mcL LAB HEMETOLOGY METHOD 08/13/2024 10:22 AM EDT [facility] RBC 2.70(L) 4.50 - 5.50 M/mcL LAB HEMETOLOGY METHOD 08/13/2024 10:22 AM EDT [facility] Hemoglobin 7.7(L) 13.5 - 17.5 g/dL LAB HEMETOLOGY METHOD [facility]24 [facility] Hematocrit 25.2(L) 42.0 - 54.0 % LAB HEMETOLOGY METHOD 08/13/2024 10:22 AM EDT [facility] MCV 94.0 79.0 - 98.0 FL LAB HEMETOLOGY METHOD 08/13/2024 10:22 AM EDT [facility] MCH 28.7 27.0 - 32.0 pcg LAB HEMETOLOGY METHOD 08/13/2024 10:22 AM [facility] MCHC 30.6(L) 32.0 - 37.0 g/dL LAB HEMETOLOGY METHOD 08/13/2024 10:22 AM EDT [facility] RDW 15.4(H) 11.0 - 15.0 % LAB HEMETOLOGY METHOD 08/13/2024 10:22 AM EDT [facility] Platelets 468(H) 130 - 400 K/mcL LAB HEMETOLOGY METHOD [facility]/13[facility]2024 10[facility] MPV 9.4 7.0 - 11.0 FL LAB HEMETOLOGY METHOD 08/13/2024 10:22 AM EDT [facility] NRBC 0.0 <1.0 % LAB HEMETOLOGY METHOD 08/13/2024 10:22 AM EDT [facility] NRBC Absolute 0.00 <0.10 K/mcL LAB HEMETOLOGY METHOD 08/13/2024 10:22 AM EDT [facility] Blood Venous blood specimen / Unknown Venipuncture / Unknown 08/13/2024 5:52 AM EDT 08/13/2024 9:40 AM EDT us Melecio Ying MD LAB BLOOD ORDERABLES Final Resu lt [facility] [address] [place] [address], documented in this encounter Visit Diagnoses Diagnosis Acute kidney failure with tubular necrosis (CMS/HCC V24) documented in this encounter Care Teams File Clerk Data Entry Relationship Specialty Start Date End Date Melecio Ying MD [address] [place] [phone] PCP - General Internal Medicine 07/15/24 documented as of this encounter
--- OUTSIDE RECORDS SUMMARY | 2024-08-26 12:35 | XMS_ITS | Continuity of Care Document ---
Author Name [facility] Organization [facility] Care Team Providers Care Mold Inspector Name Role Phone [facility] Unavailable Unavailable Problems Combined list of problems from Department of Defense and Veterans Affairs facilities. It does not include entries that were removed or entered in error. Problem Status Onset Date Problem Type Date of Resolution Comments Source AF - Atrial fibrillation Active Condition [facility] CAD - Coronary Artery Disease ([facility] 83511118) Active Condition [facility] CHF - Congestive Heart Failure ([facility] [id number]) Active Condition [facility] Chronic kidney disease Active Condition [facility] Diabetes Mellitus Type 2 ([facility] 29337201) Active Condition [facility] Frail elderly [facility] History of cardiac catheterization [facility] HTN - Hypertension ([facility] [id number]) [facility] Hyperlipidemia ([facility] 09344529) Active Condition [facility] Ischemic congestive cardiomyopathy Active Condition [facility] D Long-term current use of anticoagulant Active Condition [facility] [place] [facility] Lower urinary tract symptoms due to benign prostatic hypertrophy Active Condition Apr 23, 2024 Entered By: JUVENTINO MARTIN Comment: urinary retention w SP cath [facility] OA - Osteoarthritis ([facility] [id number]) [facility] Under care of multiple providers Active Condition Apr 28 Entered By: JUVENTINO MARTIN Comment: non [facility] PCP: Dimitri Wilson [phone] : dual care note sent 04/28/24Au2023 Entered By: RUKHSANA HANKINS Comment: Cardiology: Yosef Cuello [phone] Dec 20, 2023 Entered By: ROBIN FU Comment: Optometry: Randall Blake [phone] Apr 23, 2024 Entered By: JUVENTINO MARTIN Comment: [facility]: fax# [phone] [facility] [place] [facility] Diagnosis: ICD-10-CM N18.9 Chronic kidney disease, unspecified Active Diagnosis [facility] Diagnosis: ICD-10-CM Z71.9 Counseling, unspecified Active Diagnosis [facility] [place] [facility] Diagnosis: ICD-10-CM Z79.899 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 Active Diagnosis [facility] [...] for assistance with personal care Active Diagnosis [facility] Diagnosis: ICD-10-CM I10 Essential (primary) hypertension Active Diagnosis [facility] Medications Combined list of outpatient medications from [...] DAILY NEEDED FOR PAIN ORAL ACTIVE 04/28/2025 [id number] CORY PEREZ 2024 100 [facility] AMIODARONE HCL 200MG TAB TAKE ONE TABLET BY MOUTH ONCE DAILY FOR VENTRICU LAR FIBRILLA TION ORAL ACTIVE 04/28/2025 [id number] 5 [place]ER[place] [address] [facility] APIXABAN 5MG TAB TAKE ONE-HALF TABLET BY MOUTH EVERY 12 HOURS FOR ATRIAL FIBRILLA TION ORAL ACTIVE 05/19/2025 [id number] 5 JENNIFER[place],[facility] [place] [address] 90 [facility] APIXABAN 5MG TAB TAKE ONE TABLET BY MOUTH EVERY 12 HOURS FOR ATRIAL FIBRILLA TION ORAL DISCONT INUED (EDIT) 04/28/2025 [id number] 5 JENNIFER[place]ON[place],[facility] [place] [address] 180 [facility] APIXABAN 5MG TAB TAKE ONE TABLET BY MOUTH EVERY 12 HOURS FOR ATRIAL FIBRILLA TION ORAL DISCONT INUED 05/05/2024 [id number] STELEA,[place] RMEN F 2023 180 [place] ATORVASTATI N [place] 40MG TAB TAKE ONE TABLET BY MOUTH AT BEDTIME FOR HIGH CHOLESTE ROL ORAL ACTIVE 04/28/2025 [id number] 5 DREAD CE[place]OS,[place] [address] 90 [facility] CYANOCOBALA MIN 1000MCG TAB TAKE ONE TABLET BY MOUTH ONCE DAILY ORAL ACTIVE JENNIFER-ONEL CEBALLOS,[place] [address] [facility] DOCUSATE NA 100MG CAP TAKE 1 CAPSULE BY MOUTH ONCE DAILY NEEDED ORAL ACTIVE JENNIFER-ONEL [place],[facility] [place] [address] [facility] FERROUS SO4 325MG TAB TAKE ONE TABLET BY MOUTH ONCE DAILY ORAL ACTIVE JENNIFER-ONEL CEBALLOS,[place] [address] [facility] FINASTERIDE 5MG TAB TAKE ONE TABLET BY MOUTH ONCE DAILY FOR ENLARGED PROSTATE ORAL DISCONT INUED BY PROVIDE R 04/28/2025 [id number] 5 [place]ENN[place]ER[place],[facility] [place] [address] [facility] FUROSEMIDE 20MG TAB TAKE ONE TABLET BY MOUTH ONCE DAILY TO REMOVE FLUID/CO NTROL BLOOD PRESSURE ORAL DISCONT INUED BY PROVIDE R 04/28/2025 [id number] 5 [place],[facility] [place] [address] 90 [facility] GLIPIZIDE 5MG TAB TAKE ONE-HALF TABLET BY MOUTH ONCE DAILY ORAL ACTIVE [place]ENN[place]ER[place]GR [place],[facility] [place] [address]24 [facility] MAGNESIUM OXIDE 400MG TAB TAKE ONE TABLET BY MOUTH ONCE DAILY ORAL ACTIVE [place]ENN[place]ER[place]GR [place],[facility] [place] [address] [facility] METFORMIN HCL 500MG 24HR TAB,SA TAKE TWO TABLETS BY MOUTH TWICE DAILY FOR TYPE 2 DIABETES MELLITUS ORAL DISCONT INUED BY PROVIDE R 04/28/2025 [id number] 5 [place],[facility] [place] [address] [facility] METHENAMINE HIPPURATE 1GM TAB TAKE ONE TABLET BY MOUTH ONCE DAILY ORAL ACTIVE [place]ENN[place]ER[place]GR [place],[facility] [place] [address] [facility] [place] MIDODRINE HCL 2.5MG TAB TAKE ONE TABLET BY MOUTH TWICE DAILY ORAL ACTIVE JENNIFER[place]ONEL CE[place]OS,[facility] [place] [address] [facility] SENNOSIDES 8.6MG TAB TAKE ONE TABLET BY MOUTH ONCE DAILY NEEDED ORAL ACTIVE [place]ENNIFER[place]GR LIN,[facility] [place] [address] [facility] SOLIFENACIN SUCCINATE 5MG TAB TAKE ONE TABLET BY MOUTH ONCE DAILY FOR OVERACTI VE BLADDER ORAL DISCONT INUED BY PROVIDE R 04/28/2025 [id number] 5 [place] [address] 90 [facility] SPIRONOLACT ONE 25MG TAB TAKE ONE TABLET BY MOUTH ONCE DAILY FOR HEART FAILURE ORAL DISCONT INUED BY PROVIDE R 04/28/2025 [id number] 5 [place] [address] 90 [facility] TAMSULOSIN HCL 0.4MG CAP TAKE ONE CAPSULE BY MOUTH ONCE DAILY FOR ENLARGED PROSTATE ORAL DISCONT INUED BY PROVIDE R 04/28/2025 [id number] 5 [place] [address] 90 [facility] THIAMINE 100MG TAB TAKE ONE TABLET BY MOUTH ONCE [place] [address]24 [facility] Immunizations Combined list of available immunizations from the Department of Defense and [facility] facilities. Immunization Series Date Given Administered By Site Reaction Lot Number CVX Code Drug Staff Developer Status Comments Source PNEUMOCOCCAL CONJUGATE PCV20, POLYSACCHARID E [id number] CONJUGATE, ADJUVANT, PF 2024 LISA VIVAS DELTO ID [id number] 216 complet ed [facility] RSV, RECOMBINANT, PROTEIN SUBUNIT RSVPREF3, ADJUVANT RECONSTITUTED , 0.5 ML, PF 2024 LISA VIVAS DELTO ID [id number] 303 complet ed [facility] COVID-19 (PFIZER), MRNA, LNP-S, PF, EMELINA-SUCROSE, 30 MCG/0.3 ML (AGES 12+ YEARS) 2023 309 complet ed HISTORICA L INFORMATI ON - FROM PATIENT'S RECALL, [facility] INFLUENZA, UNSPECIFIED FORMULATION 2023 88 complet ed HISTORICA L INFORMATI ON - FROM PATIENT'S RECALL, [facility] COVID-19 (PFIZER), MRNA, LNP-S, BIVALENT, PF, 30 MCG/0.3 ML DOSE 1 2022 300 complet ed HISTORICA L INFORMATI ON - FROM OTHER PROVIDER, noted in [facility] medical record [facility] COVID-19 ([place]), MRNA, LNP-S, BIVALENT, PF, 30 MCG/0.3 ML DOSE 1 2021 300 complet ed HISTORICA L INFORMATI ON - FROM OTHER PROVIDER, noted in [facility] COVID-19 ([facility]), MRNA, LNP-S, PF, EMELINA-SUCROSE, 30 MCG/0.3 ML (AGES 12+ YEARS) 1 2021 309 complet ed HISTORICA L INFORMATI ON - FROM OTHER PROVIDER, noted in [facility] medical record [facility] COVID-19 ([facility]), MRNA, LNP-S, PF, 30 MCG/0.3 ML DOSE 1 2020 208 complet ed HISTORICA L INFORMATI ON - FROM OTHER PROVIDER, noted in [facility] medical record [facility] COVID-19 ([facility]), MRNA, LNP-S, BIVALENT, PF, 30 MCG/0.3 ML DOSE 1 2020 300 complet ed HISTORICA L INFORMATI ON - FROM OTHER PROVIDER, noted in [facility] medical record [facility] COVID-19 ([place]), MRNA, LNP-S, PF, 30 MCG/0.3 ML DOSE 1 2020 208 complet ed HISTORICA L INFORMATI ON - FROM OTHER PROVIDER, noted in [facility] medical record [facility] ZOSTER LIVE 2011 121 complet ed HISTORICA L INFORMATI ON - FROM PATIENT'S WRITTEN RECORD, [facility] Results Combined list of recent chemistry, hematology and other laboratory results from Department of Defense and Veterans Affairs, ranging from 15 months to all on record, depending upon the facility. Order Name Results Value Reference Range Date Interpretation Specimen Comments Source LIPID PANEL FASTING CHOLESTEROL [MASS/VOLUM E] IN SERUM OR PLASMA 101 mg/dL 05/15 Specimen Type: SERUM No comment entered. Ordering Provider: JUVENTINO FRIEDMAN Report Released Date/Time: Apr 27, 2024 03:55 PM Reporting Lab: [address] [address] Performing Lab: [facility] [place] [facility] [address] [facility] [address] [facility] LIPID PANEL FASTING TRIGLYCERID E [MASS/VOLUM E] IN SERUM OR PLASMA 87 mg/dL 0 - 150 05/15 Specimen Type: SERUM No comment entered. Ordering Provider: JUVENTINO FRIEDMAN Report Released Date/Time: Apr 27, 2024 03:55 PM Reporting Lab: [facility] [place] [facility] [address] [facility] [address] Performing Lab: [facility] [place] [facility] [address] [facility] [address] [facility] LIPID PANEL FASTING CHOLESTEROL IN LDL [MASS/VOLUM E] IN SERUM OR PLASMA BY CALCULATION 45 mg/dL 0 - 129 05/15 Specimen Type: SERUM No comment entered. Ordering Provider: JUVENTINO FRIEDMAN Report Released Date/Time: Apr 27, 2024 03:55 PM Reporting Lab: [facility] [place] [facility] [address] [facility] [address] Performing Lab: [facility] [place] [facility] [address] [facility] [address] [facility] [place] [facility] LIPID PANEL FASTING CHOLESTEROL .TOTAL/CHOL ESTEROL IN HDL [MASS RATIO] IN SERUM OR PLASMA 2.6 05/15 Specimen Type: SERUM No comment entered. Ordering Provider: JUVENTINO FRIEDMAN Report Released Date/Time: Apr 27, 2024 03:55 PM Reporting Lab: [facility] [place] [facility] [address] [facility] [address] Performing Lab: [facility] [place] [facility] [address] [facility] [address] [facility] [place] [facility] LIPID PANEL FASTING CHOLESTEROL IN HDL [MASS/VOLUM E] IN SERUM OR PLASMA 39 mg/dL 40 - 60 05/15 L Specimen Type: SERUM No comment entered. Ordering Provider: JUVENTINO FRIEDMAN Report Released Date/Time: Apr 27, 2024 03:55 PM Reporting Lab: [facility] [address] [facility] [address] Performing Lab: [facility] BRANCHRWALKER B[facility] CENTERTRN [facility]ENTERUSEJ[facility] [address] [facility] [address] [facility] TRN [facility]ENTERUSE [facility] BASIC METABOLIC PANEL (non-fast ing) UREA NITROGEN [MASS/VOLUM E] IN SERUM OR PLASMA 29 mg/dL 7 - 25 05/15 H Specimen Type: SERUM No comment entered. Ordering Provider: JUVENTINO FRIEDMAN Report Released Date/Time: Apr 27, 2024 03:55 PM Reporting Lab: [facility] BRANCHRSEARCY HOSPITALN [facility] [address] [facility] [address] Performing Lab: [facility] BRANCHRSEARCY HOSPITALN [address] [address] [facility] BASIC METABOLIC PANEL (non-fast ing) GLUCOSE [MASS/VOLUM E] IN SERUM OR PLASMA 285 mg/dL 65 - 100 05/15 H Specimen Type: SERUM No comment entered. Ordering Provider: JUVENTINO FRIEDMAN Report Released Date/Time: Apr 27, 2024 03:55 PM Reporting Lab: [facility] BRANCHRSEARCY HOSPITALN [address] [address] Performing Lab: [facility] BRANCHRWALKER BAPTIST MEDICAL CENTERTRN [address] [address] [facility] BRANCHRSEARCY HOSPITALN [facility] BASIC METABOLIC PANEL (non-fast ing) SODIUM [MOLES/VOLU ME] IN SERUM OR PLASMA 130 mmol/L 135 - 145 05/15 L Specimen Type: SERUM No comment entered. Ordering Provider: JUVENTINO FRIEDMAN Report Released Date/Time: Apr 27, 2024 03:55 PM Reporting Lab: [facility] BRANCHRWALKER BAP[facility]IST MEDICAL CENTERTRN [facility] CENTERUSE[address] [address] Performing Lab: [facility] BRANCHRWALKER BAP[facility] MED[facility] CENTERTRN [address] [address] [facility] BRANCHRSEARCY HOSPITALN [facility] BASIC METABOLIC PANEL (non-fast ing) POTASSIUM [MOLES/VOLU ME] IN SERUM OR PLASMA 4.9 mmol/L 3.5 - 5.0 01/24 /2025 Specimen Type: SERUM No comment entered. Ordering Provider: JUVENTINO FRIEDMAN Report Released Date/Time: Apr 27, 2024 03:55 PM Reporting Lab: [facility] BRANCHRWALKER B[facility] CENTERTRN [facility] CENTERUSETS [facility] [address] [facility] [address] Performing Lab: [facility] BRANCHRSEARCY HOSPITALN [address] [address] [facility] BRANCHRSEARCY HOSPITALN [facility]ENTERUSE [facility] BASIC METABOLIC PANEL (non-fast ing) CHLORIDE [MOLES/VOLU ME] IN SERUM OR PLASMA 96 mmol/L 100 - 110 05/15 L Specimen Type: SERUM No comment entered. Ordering Provider: JUVENTINO FRIEDMAN Report Released Date/Time: Apr 27, 2024 03:55 PM Reporting Lab: [facility] BRANCHRSEARCY HOSPITALN [address] [address] Performing Lab: [facility] BRANCHRSEARCY HOSPITALN [facility]ENTERUSE[address] [address] [facility] BRANCHRSEARCY HOSPITALN [facility]ENTERUSE [facility] BASIC METABOLIC PANEL (non-fast ing) CARBON DIOXIDE, TOTAL [MOLES/VOLU ME] IN SERUM OR PLASMA 23 meq/L 20 - 30 05/15 Specimen Type: SERUM No comment entered. Ordering Provider: JUVENTINO FRIEDMAN Report Released Date/Time: Apr 27, 2024 03:55 PM Reporting Lab: [facility] BRANCHRSEARCY HOSPITALN [address] [address] Performing Lab: [facility] BRANCHRWALKER BAP[facility]ICAL CENTERTRN [facility] CENTERUSE[address] [address] [facility] BRANCHRSEARCY HOSPITALN [facility] BASIC METABOLIC PANEL (non-fast ing) CREATININE [MASS/VOLUM E] IN SERUM OR PLASMA 1.51 mg/dL 0.50 - 1.40 05/15 H Specimen Type: SERUM No comment entered. Ordering Provider: JUVENTINO FRIEDMAN Report Released Date/Time: Apr 27, 2024 03:55 PM Reporting Lab: [facility] BRANCHRWALKER BAP[facility]IST MEDICAL CENTERTRN [facility]ENTERUSE[address] [address] Performing Lab: [facility] BRANCHRSEARCY HOSPITALN [facility] CENTERUSEJANICE VILLE [address] [facility] [address] [facility] BRANCHRWALKER BAP[facility] MEDICAL CENTERTRN [facility]ENTERUSE [facility] BASIC METABOLIC PANEL (non-fast ing) GLOMERULAR FILTRATION RATE/1.73 SQ M.PREDICTED [VOLUME RATE/AREA] IN SERUM, PLASMA OR BLOOD BY CREATININE- BASED FORMULA (CKD-EPI 2020) 44 mL/min 60 05/15 L Specimen Type: SERUM No comment entered. Ordering Provider: JUVENTINO FRIEDMAN Report Released Date/Time: Apr 27, 2024 03:55 PM Reporting Lab: [facility] BRANCHRL WSTRN MASSUSEJACOBI MEDICAL [facility] [address] [facility] [address] Performing Lab: [facility] BRANCHRWALKER BAP[facility] MEDICAL CENTERTRN [facility]ENTERUSEJ[facility] [address] [facility] [address] [facility]ENTERUSE [facility] LIVER FUNCTION PROTEIN [MASS/VOLUM E] IN SERUM OR PLASMA 7.2 g/dL 6.0 - 8.3 05/15 Specimen Type: SERUM No comment entered. Ordering Provider: JUVENTINO FRIEDMAN Report Released Date/Time: Apr 27, 2024 03:55 PM Reporting Lab: [facility] BRANCHRL TRN [facility] CENTERUSETS [facility] [address] [facility] [address] Performing Lab: [facility] BRANCHRL TRN [facility] CENTERUSEJ[facility] [address] [facility] [address] [facility]ENTERUSE [facility] LIVER FUNCTION ALBUMIN [MASS/VOLUM E] IN SERUM OR PLASMA 3.3 g/dL 3.5 - 5.0 05/15 L Specimen Type: SERUM No comment entered. Ordering Provider: JUVENTINO FRIEDMAN Report Released Date/Time: Apr 27, 2024 03:55 PM Reporting Lab: [facility] BRANCHRL TRN [facility] CENTERUSETS [facility] [address] [facility] [address] Performing Lab: [facility] BRANCHRL TRN [facility] CENTERUSE[address] [address] [facility]ENTERUSE [facility] LIVER FUNCTION ALKALINE PHOSPHATASE [ENZYMATIC ACTIVITY/VO LUME] IN SERUM OR PLASMA 92 U/L 40 - 150 05/15 Specimen Type: SERUM No comment entered. Ordering Provider: JUVENTINO FRIEDMAN Report Released Date/Time: Apr 27, 2024 03:55 PM Reporting Lab: [facility] [place] [facility] [address] [facility] [address] Performing Lab: [facility] [place] [facility] [address] [facility] [address] [facility] [place] [facility] LIVER FUNCTION ASPARTATE AMINOTRANSF ERASE [ENZYMATIC ACTIVITY/VO LUME] IN SERUM OR PLASMA 10 U/L 5 - 34 05/15 Specimen Type: SERUM No comment entered. Ordering Provider: JUVENTINO FRIEDMAN Report Released Date/Time: Apr 27, 2024 03:55 PM Reporting Lab: [facility] [place] [facility] [address] [facility] [address] Performing Lab: [facility] [place] [facility] [address] [facility] [address] [place] [facility] [place] [facility] LIVER FUNCTION ALANINE AMINOTRANSF ERASE [ENZYMATIC ACTIVITY/VO LUME] IN SERUM OR PLASMA 11 U/L 05/15 Specimen Type: SERUM No comment entered. Ordering Provider: JUVENTINO FRIEDMAN Report Released Date/Time: Apr 27, 2024 03:55 PM Reporting Lab: [facility] [place] [facility] [address] [facility] [address] Performing Lab: [facility] [place] [facility] [address] [facility] [address] [place] [place] [facility] LIVER FUNCTION BILIRUBIN.T OTAL [MASS/VOLUM E] IN SERUM OR PLASMA 0.5 mg/dL 0.2 - 1.2 05/15 Specimen Type: SERUM No comment entered. Ordering Provider: JUVENTINO FRIEDMAN Report Released Date/Time: Apr 27, 2024 03:55 PM Reporting Lab: [facility] [place] [facility] [address] [facility] [address] Performing Lab: [facility] [place] [address] [address] [place] [facility] [facility] HEMOGLOBI N A1C PANEL HEMOGLOBIN A1C/HEMOGLO BIN.TOTAL [...] Apr 27, 2024 03:55 PM Reporting Lab: [facility] BRANCHRWALKER B[facility] CENTERTRN [facility] CENTERUSETS [address] [address] Performing Lab: [facility] BRANCHRWALKER BAP[facility] CENTERTRN [facility] CENTERUSE[address] [address] [facility] BRANCHRSEARCY HOSPITALN [facility] CENTERUSE [facility] TSH THYROTROPIN [UNITS/VOLU ME] IN SERUM OR PLASMA 0.40 u[IU]/ mL 0.35 - 5.00 05/15 Specimen Type: SERUM No comment entered. Ordering Provider: JUVENTINO FRIEDMAN Report Released Date/Time: Apr 27, 2024 03:55 PM Reporting Lab: [facility] BRANCHRSEARCY HOSPITALN [facility] CENTERUSE[address] [address] Performing Lab: [facility] BRANCHRL TRN [facility] CENTERUSETS [address] [address] [facility] CENTERUSE [facility] CBC AND DIFF (AUTO) LEUKOCYTES [#/VOLUME] IN BLOOD BY AUTOMATED COUNT 14.22 10*3/u L 4.50 - 11.00 05/15 H Specimen Type: BLOOD No comment entered. Ordering Provider: JUVENTINO FRIEDMAN Report Released Date/Time: Apr 27, 2024 03:55 PM Reporting Lab: [facility] BRANCHRL [place] [address] [address] Performing Lab: [facility] BRANCHRWALKER BAP[facility]IST MEDICAL CENTERTRN [facility] CENTERUSE[address] [address] [facility] CENTERUSE [facility] CBC AND DIFF (AUTO) ERYTHROCYTE S [#/VOLUME] IN BLOOD BY AUTOMATED COUNT 3.45 10*6/u L 4.23 - 5.66 05/15 L Specimen Type: BLOOD No comment entered. Ordering Provider: JUVENTINO FRIEDMAN Report Released Date/Time: Apr 27, 2024 03:55 PM Reporting Lab: [place] [place] [facility] [address] [facility] [address] Performing Lab: [place] [facility] [place] [facility] [address] [facility] [address] [facility] [place] [facility] CBC AND DIFF (AUTO) HEMOGLOBIN [MASS/VOLUM E] IN BLOOD 10.7 g/dL 12.8 - 17 05/15 L Specimen Type: BLOOD No comment entered. Ordering Provider: JUVENTINO FRIEDMAN Report Released Date/Time: Apr 27, 2024 03:55 PM Reporting Lab: [place] [facility] [place] [facility] [address] [facility] [address] Performing Lab: [place] [facility] [place] [facility] [address] [facility] [address] [facility] [place] [facility] CBC AND DIFF (AUTO) HEMATOCRIT [VOLUME FRACTION] OF BLOOD BY AUTOMATED COUNT 32.4 39.2 - 50.4 05/15 L Specimen Type: BLOOD No comment entered. Ordering Provider: JUVENTINO FRIEDMAN Report Released Date/Time: Apr 27, 2024 03:55 PM Reporting Lab: [facility] [place] [address] [address] Performing Lab: [facility] [place] [facility] [address] [facility] [address] [facility] [place] [facility] CBC AND DIFF (AUTO) MCV [ENTITIC VOLUME] BY AUTOMATED COUNT 93.9 fL 82 - 99 05/15 Specimen Type: BLOOD No comment entered. Ordering Provider: JUVENTINO FRIEDMAN Report Released Date/Time: Apr 27, 2024 03:55 PM Reporting Lab: [facility] [place] [facility] [address] [facility] [address] Performing Lab: [facility] [place] [facility] [address] [facility] [address] [facility] [place] [facility] CBC AND DIFF (AUTO) MCHC [MASS/VOLUM E] BY AUTOMATED COUNT 33.0 g/dL 30.8 - 35.1 05/15 Specimen Type: BLOOD No comment entered. Ordering Provider: JUVENTINO FRIEDMAN Report Released Date/Time: Apr 27, 2024 03:55 PM Reporting Lab: [facility] [place] [facility] [address] [facility] [address] Performing Lab: [facility] [place] [facility] [address] [facility] [address] [facility] [place] [facility] CBC AND DIFF (AUTO) PLATELETS [#/VOLUME] IN BLOOD BY AUTOMATED COUNT 311 10*3/u L 140 - 360 05/15 Specimen Type: BLOOD No comment entered. Ordering Provider: JUVENTINO FRIEDMAN Report Released Date/Time: Apr 27, 2024 03:55 PM Reporting Lab: [facility] [place] [facility] [address] [facility] [address] Performing Lab: [facility] [place] [facility] [address] [facility] [address] [facility] [place] [facility] CBC AND DIFF (AUTO) ERYTHROCYTE DISTRIBUTIO N WIDTH [RATIO] BY AUTOMATED COUNT 13.2 12.0 - 16.0 05/15 Specimen Type: BLOOD No comment entered. Ordering Provider: JUVENTINO FRIEDMAN Report Released Date/Time: Apr 27, 2024 03:55 PM Reporting Lab: [facility] [address] [facility] [address] Performing Lab: [facility] [address] [facility] [address] [facility] CBC AND DIFF (AUTO) MONOCYTES [#/VOLUME] IN BLOOD BY AUTOMATED COUNT 0.89 10*3/u L 0.30 - 1.10 05/15 Specimen Type: BLOOD No comment entered. Ordering Provider: JUVENTINO FRIEDMAN Report Released Date/Time: Apr 27, 2024 03:55 PM Reporting Lab: [facility] [address] [facility] [address] Performing Lab: [facility] [address] [facility] [address] [facility] CBC AND DIFF (AUTO) MCH [ENTITIC MASS] BY AUTOMATED COUNT 31.0 pg 26.2 - 32.6 05/15 Specimen Type: BLOOD No comment entered. Ordering Provider: JUVENTINO FRIEDMAN Report Released Date/Time: Apr 27, 2024 03:55 PM Reporting Lab: [facility] [address] [facility] [address] Performing Lab: [facility] [address] [facility] [address] [facility] CBC AND DIFF (AUTO) NEUTROPHILS /100 LEUKOCYTES IN BLOOD BY AUTOMATED COUNT 83.8 43.7 - 75.8 05/15 H Specimen Type: BLOOD No comment entered. Ordering Provider: JUVENTINO FRIEDMAN Report Released Date/Time: Apr 27, 2024 03:55 PM Reporting Lab: [facility] [address] [facility] [address] Performing Lab: [facility] [address] [facility] [address] [facility] CBC AND DIFF (AUTO) LYMPHOCYTES /100 LEUKOCYTES IN BLOOD BY AUTOMATED COUNT 8.2 14.0 - 42.3 05/15 L Specimen Type: BLOOD No comment entered. Ordering Provider: JUVENTINO FRIEDMAN Report Released Date/Time: Apr 27, 2024 03:55 PM Reporting Lab: [facility] [address] [facility] [address] Performing Lab: [facility] [address] [facility] [address] [facility] CBC AND DIFF (AUTO) MONOCYTES/1 00 LEUKOCYTES IN BLOOD BY AUTOMATED COUNT 6.3 5.1 - 13.7 05/15 Specimen Type: BLOOD No comment entered. Ordering Provider: JUVENTINO FRIEDMAN Report Released Date/Time: Apr 27, 2024 03:55 PM Reporting Lab: [facility] [address] [facility] [address] Performing Lab: [facility] [address] [facility] [address] [facility] CBC AND DIFF (AUTO) EOSINOPHILS /100 LEUKOCYTES IN BLOOD BY AUTOMATED COUNT 0.7 0.4 - 6.8 05/15 Specimen Type: BLOOD No comment entered. Ordering Provider: JUVENTINO FRIEDMAN Report Released Date/Time: Apr 27, 2024 03:55 PM Reporting Lab: [facility] [address] [facility] [address] Performing Lab: [facility] [address] [facility] [address] [facility] CBC AND DIFF (AUTO) BASOPHILS/1 00 LEUKOCYTES IN BLOOD BY AUTOMATED COUNT 0.3 0.1 - 2.0 05/15 Specimen Type: BLOOD No comment entered. Ordering Provider: JUVENTINO FRIEDMAN Report Released Date/Time: Apr 27, 2024 03:55 PM Reporting Lab: [facility] [address] [facility] [address] Performing Lab: [facility] [address] [address] [facility] CBC AND DIFF (AUTO) NEUTROPHILS [#/VOLUME] IN BLOOD BY AUTOMATED COUNT 11.92 10*3/u L 2.20 - 7.60 05/15 H Specimen Type: BLOOD No comment entered. Ordering Provider: JUVENTINO FRIEDMAN Report Released Date/Time: Apr 27, 2024 03:55 PM Reporting Lab: [facility] [address] [facility] [address] Performing Lab: [facility] [address] [facility] [address] [facility] CBC AND DIFF (AUTO) LYMPHOCYTES [#/VOLUME] IN BLOOD BY AUTOMATED COUNT 1.17 10*3/u L 1.00 - 3.20 05/15 Specimen Type: BLOOD No comment entered. Ordering Provider: JUVENTINO FRIEDMAN Report Released Date/Time: Apr 27, 2024 03:55 PM Reporting Lab: [facility] [address] [address] Performing Lab: [facility] [address] [address] [facility] CBC AND DIFF (AUTO) EOSINOPHILS [#/VOLUME] IN BLOOD BY AUTOMATED COUNT 0.10 10*3/u L 0.03 - 0.44 05/15 Specimen Type: BLOOD No comment entered. Ordering Provider: JUVENTINO FRIEDMAN Report Released Date/Time: Apr 27, 2024 03:55 PM Reporting Lab: [facility] [address] [address] Performing Lab: [facility] [address] [address] [facility] CBC AND DIFF (AUTO) BASOPHILS [#/VOLUME] IN BLOOD BY AUTOMATED COUNT 0.04 10*3/u L 0.01 - 0.13 05/15 Specimen Type: BLOOD No comment entered. Ordering Provider: JUVENTINO FRIEDMAN Report Released Date/Time: Apr 27, 2024 03:55 PM Reporting Lab: [facility] [address] [address] Performing Lab: [facility] [address] [address] [facility] CBC AND DIFF (AUTO) IMMATURE GRANULOCYTE S/100 LEUKOCYTES IN BLOOD BY AUTOMATED COUNT 0.7 0.0 - 0.7 05/15 Specimen Type: BLOOD No comment entered. Ordering Provider: JUVENTINO FRIEDMAN Report Released Date/Time: Apr 27, 2024 03:55 PM Reporting Lab: [facility] [address] [place] [address] Performing Lab: [facility] [address] [facility] [address] [facility] CBC AND DIFF (AUTO) IMMATURE GRANULOCYTE S [#/VOLUME] IN BLOOD 0.10 10*3/u L 0.00 - 0.06 05/15 H Specimen Type: BLOOD No comment entered. Ordering Provider: JUVENTINO FRIEDMAN Report Released Date/Time: Apr 27, 2024 03:55 PM Reporting Lab: [facility] [address] [facility] [address] Performing Lab: [address] [address] [facility] CBC AND DIFF (AUTO) NRBC % 0.0 0.0 - 0.0 05/15 Specimen Type: BLOOD No comment entered. Ordering Provider: JUVENTINO FRIEDMAN Report Released Date/Time: Apr 27, 2024 03:55 PM Reporting Lab: [address] [address] Performing Lab: [address] [address] [facility] CBC AND DIFF (AUTO) NRBC, ABS 0.00 10*3/u L 0.00 - 0.00 05/15 Specimen Type: BLOOD No comment entered. Ordering Provider: JUVENTINO FRIEDMAN Report Released Date/Time: Apr 27, 2024 03:55 PM Reporting Lab: [address] [address] Performing Lab: [address] [address] [facility] BNP (Natriure tic Peptide Brain) NATRIURETIC PEPTIDE B [MASS/VOLUM E] IN SERUM OR PLASMA 143 pg/mL 10 - 100 05/15 H Specimen Type: PLASMA No comment entered. Ordering Provider: JUVENTINO FRIEDMAN Report Released Date/Time: Apr 27, 2024 04:00 PM Reporting Lab: [facility] [address] [facility] [address] Performing Lab: [facility] [address] [facility] [address] [facility] CALCIUM CALCIUM [MASS/VOLUM E] IN SERUM OR PLASMA 8.8 mg/dL 8.5 - 10.2 05/15 Specimen Type: SERUM No comment entered. Ordering Provider: JUVENTINO FRIEDMAN Report Released Date/Time: Apr 28, 2024 02:23 PM Reporting Lab: [facility] [address] [facility] [address] Performing Lab: [facility] [address] [facility] [address] [facility] VITAMIN D (25-OH) 25-HYDROXYV ITAMIN D3 [MASS/VOLUM E] IN SERUM OR PLASMA 28 ng/mL 20 - 50 05/15 Specimen Type: SERUM No comment entered. Ordering Provider: JUVENTINO FRIEDMAN Report Released Date/Time: Apr 28, 2024 02:23 PM Reporting Lab: [facility] [address] [facility] [address] Performing Lab: [facility] [address] [facility] [address] [facility] Vital Signs Combined list of inpatient and outpatient Vital Signs from Department of Defense and Veterans Affairs, ranging from 12 months to all on record, depending upon the facility. Vital Sign Value Date Comments Source SYSTOLIC BLOOD PRESSURE 118 08/24/2024 14:14:46 [facility] DIASTOLIC BLOOD PRESSURE 70 08/24/2024 14:14:46 [facility] PULSE OXIMETRY 99 08/24/2024 14:14:46 [facility] PAIN 0 08/24/2024 14:14:46 [facility] TEMPERATURE 98 08/24/2024 14:14:46 [facility] PULSE 82 08/24/2024 14:14:46 [facility] RESPIRATION 16 08/24/2024 14:14:46 [facility] SYSTOLIC BLOOD PRESSURE 106 06/11/2024 12:59:33 [facility] En[facility] [id number] 08/18 [facility] En[facility] [id number] 11/15 [facility]counter [id number] 11/15 [facility] Encounter [id number] 11/20 [facility] Encounter [id number] 11/24 [facility] Out[facility]counter [id number] 11/26 [facility]counter [id number] 12/03 [facility] Encounter [id number] 12/04 [facility] Out[facility] Encounter [id number] 12/04 [facility] Encounter [id number] 1.12/31 [facility] Encounter [id number] 1.01/06 [facility] [place] [facility] O/P NEW MOD 45 MIN [id number] Diagnos is: ICD-10- CM I10 Essenti al (primar y) hyperte nsion STELEA,CAR MEN F 01/15 [place] [facility] HC PRO PHONE CALL 5-10 MIN [id number] Diagnos is: ICD-10- CM I50.9 Heart failure , unspeci fied CASTILLO-MILTON TINEO 01/20 [facility] Outpatient Encounter [id number] 1.01/27 [facility] Outpatient Encounter [id number] 01/27 [facility] Outpatient Encounter [id number] 1. CHERY-URIAH LUIS MANNA L 01/29 [facility] Outpatient Encounter [id number] 1.01/29 [facility] Outpatient Encounter [id number] 1.01/29 [facility] Outpatient Encounter [id number] 1.01/29 [facility] PRO PHONE CALL 5-10 MIN [id number] 1BY. 39 Diagnos is: ICD-10- CM Z74.1 Need for assista nce with persona l ITALO Story 01/29 [place] [facility] Outpatient Encounter [id number] STELEA,CAR MEN F 02/03 [facility] MTMS BY PHARM ADDL 15 MIN [id number] Diagnos is: ICD-10- CM I48.91 Unspeci fied atrial fibrill ation ELIANE CHUN 02/05 [facility] Out[facility] Encounter [id number] 1.02/05 [facility] Encounter [id number] 1.02/12 [facility] Out[facility]counter [id number] [facility] Out[facility] Encounter [id number] 1[facility]02/20 [facility] Out[facility]counter [id number] [facility]counter [id number] [facility] Encounter [id number] 02/27 [facility] OT EVAL LOW COMPLEX 30 MIN [id number] 1. 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 REJI PRICE 03/10 [facility] Encounter [id number] 1.03/11 [facility] MTMS BY PHARM EST 15 MIN [id number] Diagnos is: ICD-10- CM Z51.81 Encount er for therape utic drug level monitor ELIANE Fuller 03/12 [facility] HHC RN E&M PLAN SVS, 15 MIN [id number] Diagnos is: ICD-10- CM I50.9 Heart failure , unspeci fied CASTILLOJulienMILTON TINEO MILDRED 03/13 [facility] En[facility] [id number] 1.03/13 [facility] RN CARE EA 15 MIN HH/HOSPICE [id number] 1. Diagnos is: ICD-10- CM I50.9 Heart failure , unspeci fied CARLOS ALBERTO VIVAS 03/13 [facility] Outpatient Encounter [id number] [facility] Outpatient Encounter [id number] 1.03/30 [facility] SELF CARE MNGMENT TRAINING [id number] 1. Diagnos is: ICD-10- CM R54 Age-rel ated physica l debilit y CARLOS ALBERTO VIVAS 03/30 [facility] Out[facility] Encounter [id number] 1.04/03 [facility] Out[facility] Encounter [id number] 1.04/03 [facility] Out[facility] Encounter [id number] 1. CARLOS ALBERTO VIVAS 04/03 [facility] QNHP OL DIG ASSMT&MGMT 21+ [id number] Diagnos is: ICD-10- CM Z79.899 Other exterminator helper termite (curren t) drug therapy MIRI SAGE 04/06 [facility] Out[facility] En[facility] [id number] 04/07 [facility] Out[facility] Encounter [id number] 04/08 [facility] HHCP-SERV OF OT,EA 15 MIN [id number] Diagnos is: ICD-10- CM R26.9 Unspeci fied abnorma lities of gait and mobilit y VAZQUEZ,CAT HY L 04/16 [facility] CASE MANAGEMENT [id number] Diagnos is: ICD-10- CM Z65.9 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 tanstephan NaikSHELLEY 04/17 [facility] Out[facility] En[facility] [id number] 04/20 [facility] Out[facility] Encounter [id number] 04/20 [facility] Out[facility] Encounter [id number] 04/21 [facility] Out[facility] Encounter [id number] 04/23 [facility] SYNCH AUDIO-ONLY NEW MOD 45 [id number] Diagnos is: ICD-10- CM 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 JENNIFER-GRA DY,JUVENTINO 04/23 [facility] Out[facility] Encounter [id number] [facility] Outpatient Encounter [id number] Diagnos is: ICD-10- CM 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 JENNIFER-GRA DY,JUVENTINO 04/27 [facility] Outpatient Encounter [id number] 1.05/01 [facility] WOUND(S) CARE NON-SELECT SVETLANA [id number] Diagnos is: ICD-10- CM N18.9 Chronic kidney disease , unspeci fied ALLSOP,CARLOS ALBERTO MAXIMILIAN 05/15 [facility] NQHP OL DIG ASSMT&MGMT 5-10 [id number] Diagnos is: ICD-10- CM Z04.89 Encount er for examina tion and observa tion for oth reasons ELIANE CHUN ISJOSIAH J 05/18 [facility] SYNCH AUDIO-ONLY EST LOW 20 [id number] 1. Diagnos is: ICD-10- CM N18.9 Chronic kidney disease , unspeci fied JENNIFER-GRA DY,JUVENTINO 05/18 [facility] Out[facility] Encounter [id number] 05/22 [facility] Out[facility] Encounter [id number] 05/25 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 M[place]RISSETT E,SHELLEY 06/24 [facility] NQHP OL DIG ASSMT&MGMT 21+ [id number] Diagnos is: ICD-10- CM Z79.899 Other nursing home (curren t) drug therapy MIRI SAGE 07/02 [facility] PH1 ASSMT&MGMT NQHP 5-10 [id number] Diagnos is: ICD-10- CM Z71.9 Glove Maker ing, unspeci fied SILVIANO NaikSHELLEY 07/02 [facility] Outpatient Encounter [id number] 07/07 [facility] Out[facility]counter [id number] 07/10 [facility] Outpatient Encounter [id number] 07/13 [facility] Outpatient [facility]counter [id number] 07/13 [facility] Outpatient Encounter [id number] 08/04 [facility] Outpatient Encounter [id number] 08/06 [facility] PH1 ASSMT&MGMT NQHP 21-30 [id number] Diagnos is: ICD-10- CM N18.9 Chronic kidney disease , unspeci fied ALLCARLOS ALBERTO AVITIA MAXIMILIAN 08/20 [facility] Out[facility] Encounter [id number] ALLCARLOS ALBERTO AVITIA MAXIMILIAN 08/24 [facility] Out[facility] Encounter [id number] 08/25 [facility] Social History Combined list of available smoking, tobacco, and other social history from Department of Defense and Veterans Affairs facilities. 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 Additional future care activities may be listed in the Assessment and Plan section. Date/Time Care Activity Care Activity Detail Facili ty 08/16/2024 Laboratory - Center Director Lead Teacher ry Order HEMOGLOBIN A1C PANEL BLOOD (LAV-BLOOD) [facility]
--- OUTSIDE RECORDS SUMMARY | 2024-08-26 12:35 | XMS_ITS | Encounter Summary ---
Author Organization [facility] Address [address] [place] [address] Care Team Providers Care Heat Treat Supervisor Name Role Phone Melecio Ying MD Primary Care Provider Encounter Details Date Type Department Care Team (Late st Contact Info) Description 07/29/2024 Lab Requisition [facility] - Main Lab [address] [facility] [place] [phone] Melecio Ying MD [address] [place] [phone] Acute kidney failure with tubular necrosis (CMS/HCC [...] mmol/L LAB CHEMISTRY METHOD 07/30/2024 12:[address] [facility] Potassium 4.6 3.5 - 5.5 mmol/L LAB CHEMISTRY METHOD 07/30/2024 12:[address] [facility] Chloride 99 96 - 110 mmol/L LAB CHEMISTRY METHOD 07/30/2024 12:[address] [facility] CO2 22 21 - 32 mmol/L LAB CHEMISTRY METHOD 07/30/2024 12:[address] [facility] Anion Gap 11 3 - 11 LAB CHEMISTRY METHOD 07/30/2024 12:[address] [facility] Glucose 103(H) 70 - 100 mg/dL LAB CHEMISTRY METHOD 07/30/2024 12:[address] [facility] BUN 22 5 - 25 mg/dL LAB CHEMISTRY METHOD 07/30/2024 12:[address] [facility] Creatinine 1.35(H) 0.70 - 1.30 mg/dL LAB CHEMISTRY METHOD 07/30/2024 12:[address] [facility] eGFR 50(L) >=60 mL/min/1. 73m2 LAB CHEMISTRY METHOD 07/30/2024 12:[address] [facility] Comment:Calculation based on the??Chronic Kidney Disease Epidemiology Collaboration (CKD-EPI) equation refit??without adjustment for race. BUN/Creatinine Ratio 16.3 LAB CHEMISTRY METHOD 07/30/2024 12:[address] [facility] Calcium 8.7 8.5 - 10.5 mg/dL LAB CHEMISTRY METHOD 07/30/2024 12:[address] [facility] Blood Venous blood specimen / Unknown Venipuncture / Unknown 07/30/2024 6:03 AM EDT 07/30/2024 10:35 AM EDT us Melecio Ying MD LAB BLOOD ORDERABLES Final Resu lt [facility] [address] [place] [address], * (ABNORMAL) Complete blood count (07/30/2024 6:03 AM EDT) [facility] WBC 10.7 4.8 - 10.8 K/mcL LAB HEMETOLOGY METHOD 07/30/2024 12:17 PM EDT [facility] RBC 2.70(L) 4.50 - 5.50 M/mcL LAB HEMETOLOGY METHOD 07/30/2024 12:17 PM EDT [facility] Hemoglobin 7.9(L) 13.5 - 17.5 g/dL LAB HEMETOLOGY METHOD 07/30/2024 12:17 PM EDT [facility] Hematocrit 24.7(L) 42.0 - 54.0 % LAB HEMETOLOGY METHOD 07/30/2024 12:17 PM EDT [facility] MCV 92.2 79.0 - 98.0 FL LAB HEMETOLOGY METHOD 07/30/2024 12:17 PM EDT [facility] MCH 29.5 27.0 - 32.0 pcg LAB [facility]EMETOLOGY [facility] MCHC 32.0 32.0 - 37.0 g/dL LAB HEMETOLOGY METHOD 07/30/2024 12:17 PM EDT [facility] RDW 14.7 11.0 - 15.0 % LAB HEMETOLOGY METHOD 07/30/2024 12:17 PM EDT [facility] Platelets 524(H) 130 - 400 K/mcL LAB HEMETOLOGY METHOD 07/30/2024 12:17 PM EDT [facility] MPV 9.5 7.0 - 11.0 FL LAB HEMETOLOGY METHOD 07/30/2024 12:17 PM EDT [facility] NRBC 0.0 <1.0 % LAB HEMETOLOGY METHOD 07/30/2024 12:17 PM EDT [facility] NRBC Absolute 0.00 <0.10 K/mcL LAB HEMETOLOGY METHOD 07/30/2024 12:17 PM EDT [facility] Blood Venous blood specimen / Unknown Venipuncture / Unknown 07/30/2024 6:03 AM EDT 07/30/2024 10:35 AM EDT us Melecio Ying MD LAB BLOOD ORDERABLES Final Resu lt [facility] [address] [place] [address], documented in this encounter Visit Diagnoses Diagnosis Acute kidney failure with tubular necrosis (CMS/HCC V24) documented in this encounter Care Teams Heat Treat Supervisor Relationship Specialty Start Date End Date Melecio Ying MD [address] [place] [phone] PCP - General Internal Medicine 07/15/24 documented as of this encounter
--- OUTSIDE RECORDS SUMMARY | 2024-08-26 12:35 | XMS_ITS | Encounter Summary ---
Author Organization [facility] Address [address] [place] [address] Care Team Providers Care Classification Officer Name Role Phone Melecio Ying MD Primary Care Provider [phone] Encounter Details Date Type Department Care Team (Late st Contact Info) Description 07/15/2024 Lab Requisition [facility] - Main Lab 299 [facility] [place] [address] Melecio Ying MD [address] [place] [phone] Acute kidney failure with tubular necrosis (CMS/HCC [...] mmol/L LAB CHEMISTRY METHOD 07/15/2024 10:42 AM [facility] Potassium 4.4 3.5 - 5.5 mmol/L LAB CHEMISTRY METHOD 07/15/2024 10:42 AM [facility] Chloride 100 96 - 110 mmol/L LAB CHEMISTRY METHOD 07/15/2024 10:42 AM [facility] CO2 21 21 - 32 mmol/L LAB CHEMISTRY METHOD 07/15/2024 10:42 AM [facility] Anion Gap 8 3 - 11 LAB CHEMISTRY METHOD 07/15/2024 10:42 AM [facility] Glucose 148(H) 70 - 100 mg/dL LAB CHEMISTRY METHOD 07/15/2024 10:42 AM [facility] BUN 28(H) 5 - 25 mg/dL LAB CHEMISTRY METHOD 07/15/2024 10:42 AM [facility] Creatinine 1.36(H) 0.70 - 1.30 mg/dL LAB CHEMISTRY METHOD 07/15/2024 10:42 AM [facility] eGFR 50(L) >=60 mL/min/1. 73m2 LAB CHEMISTRY METHOD 07/15/2024 10:42 AM [facility] Comment:Calculation based on the??Chronic Kidney Disease Epidemiology Collaboration (CKD-EPI) equation refit??without adjustment for race. BUN/Creatinine Ratio 20.6 LAB CHEMISTRY METHOD 07/15/2024 10:42 AM [facility] Calcium 8.3(L) 8.5 - 10.5 mg/dL LAB CHEMISTRY METHOD 07/15/2024 10:42 AM [facility] AST (SGOT) 12 10 - 42 unit/L LAB CHEMISTRY METHOD 07/15/2024 10:42 AM [facility] ALT (SGPT) 14 10 - 60 unit/L LAB CHEMISTRY METHOD 07/15/2024 10:42 AM [facility] Alkaline Phosphatase 85 42 - 121 unit/L LAB CHEMISTRY METHOD 07/15/2024 10:42 AM EDT [facility] Total Protein 6.2 6.0 - 8.0 g/dL LAB CHEMISTRY METHOD 07/15/2024 10:42 AM EDT [facility] Albumin 2.5(L) 3.2 - 5.0 g/dL LAB CHEMISTRY METHOD 07/15/2024 10:42 AM EDT [facility] Total Bilirubin 0.5 0.0 - 1.4 mg/dL LAB CHEMISTRY METHOD 07/15/2024 10:42 AM EDT [facility] Blood Venous blood specimen / Unknown Venipuncture / Unknown 07/15/2024 7:01 AM EDT 07/15/2024 9:42 AM EDT Melecio Ying MD LAB BLOOD ORDERABLES Final Resu lt [facility] [address] [place] [address], [place] [phone] * (ABNORMAL) Complete blood count (07/15/2024 7:01 AM EDT) WBC 8.9 4.8 - 10.8 K/mcL LAB HEMETOLOGY METHOD 07/15/2024 10:26 AM [facility] RBC 2.70(L) 4.50 - 5.50 M/[facility] LAB HEMETOLOGY METHOD 07/15/2024 10:26 AM [facility] Hemoglobin 8.3(L) 13.5 - 17.5 g/dL LAB HEMETOLOGY METHOD 07/15/2024 10:26 AM [facility] Hematocrit 25.0(L) 42.0 - 54.0 % LAB HEMETOLOGY [facility] MCV 91.2 79.0 - 98.0 FL LAB HEMETOLOGY METHOD 07/15/2024 10:26 AM EDT [facility] MCH 30.3 27.0 - 32.0 pcg LAB HEMETOLOGY METHOD 07/15/2024 10:26 AM EDT [facility] MCHC 33.2 32.0 - 37.0 g/dL LAB HEMETOLOGY METHOD 07/15/2024 10:26 AM EDT [facility] RDW 14.0 11.0 - 15.0 % LAB HEMETOLOGY METHOD 07/15/2024 10:26 AM EDT [facility] Platelets 320 130 - 400 K/mcL LAB HEMETOLOGY METHOD 07/15/2024 10:26 AM T [facility] MPV 9.6 7.0 - 11.0 FL LAB HEMETOLOGY METHOD 07/15/2024 10:26 AM EDT [facility] NRBC 0.0 <1.0 % LAB HEMETOLOGY METHOD 07/15/2024 10:26 AM T [facility] NRBC Absolute 0.00 <0.10 K/mcL LAB HEMETOLOGY METHOD 07/15/2024 10:26 AM [facility] Blood Venous blood specimen / Unknown Venipuncture / Unknown 07/15/2024 7:01 AM EDT 07/15/2024 9:42 AM EDT us Melecio Ying MD LAB BLOOD ORDERABLES Final Resu lt [facility] [address] [place] [address], documented in this encounter Visit Diagnoses Diagnosis Acute kidney failure with tubular necrosis (CMS/HCC V24) documented in this encounter Care Teams Classification Officer Relationship Specialty Start Date End Date Melecio Ying MD [address] [place] [address] PCP - General Internal Medicine 07/15/24 documented as of this encounter
--- OUTSIDE RECORDS SUMMARY | 2024-08-26 12:35 | XMS_ITS | Encounter Summary ---
Author Organization [facility] Address [address] [place] [address] Care Team Providers Care Ground Water Contractor Name Role Phone Melecio Ying MD Primary Care Provider [phone] Encounter Details Date Type Department Care Team (Late st Contact Info) Description 08/07/2024 Lab Requisition [facility] - Main Lab [address] [facility] [place] [address] Melecio Ying MD [address] [place] [phone] Acute kidney failure with tubular necrosis (CMS/HCC [...] mmol/L LAB CHEMISTRY METHOD 08/10/2024 12:23 PM [facility] Potassium 4.6 3.5 - 5.5 mmol/L LAB CHEMISTRY METHOD 08/10/2024 12:23 PM [facility] Chloride 106 96 - 110 mmol/L LAB CHEMISTRY METHOD 08/10/2024 12:23 PM [facility] CO2 22 21 - 32 mmol/L LAB CHEMISTRY METHOD 08/10/2024 12:23 PM [facility] Anion Gap 11 3 - 11 LAB CHEMISTRY METHOD 08/10/2024 12:23 PM [facility] Glucose 99 70 - 100 mg/dL LAB CHEMISTRY METHOD 08/10/2024 12:23 PM [facility] BUN 20 5 - 25 mg/dL LAB CHEMISTRY METHOD 08/10/2024 12:23 PM [facility] Creatinine 1.44(H) 0.70 - 1.30 mg/dL LAB CHEMISTRY METHOD 08/10/2024 12:23 PM [facility] eGFR 47(L) >=60 mL/min/1. 73m2 LAB CHEMISTRY METHOD 08/10/2024 12:23 PM [facility] Comment:Calculation based on the??Chronic Kidney Disease Epidemiology Collaboration (CKD-EPI) equation refit??without adjustment for race. BUN/Creatinine Ratio 13.9 LAB CHEMISTRY METHOD 08/10/2024 12:23 PM [facility] Calcium 8.8 8.5 - 10.5 mg/dL LAB CHEMISTRY METHOD 08/10/2024 12:23 PM [facility] AST (SGOT) 11 10 - 42 unit/L LAB CHEMISTRY METHOD 08/10/2024 12:23 PM [facility] ALT (SGPT) 14 10 - 60 unit/L LAB CHEMISTRY METHOD 08/10/2024 12:23 PM [facility] Alkaline Phosphatase 91 42 - 121 unit/L LAB CHEMISTRY METHOD 08/10/2024 12:23 PM EDT [facility] Total Protein 6.6 6.0 - 8.0 g/dL LAB CHEMISTRY METHOD 08/10/2024 12:23 PM [facility] Albumin 2.3(L) 3.2 - 5.0 g/dL LAB CHEMISTRY METHOD 08/10/2024 12:23 PM [facility] Total Bilirubin 0.3 0.0 - 1.4 mg/dL LAB CHEMISTRY METHOD 08/10/2024 12:23 PM T [facility] Blood Venous blood specimen / Unknown Venipuncture / Unknown 08/10/2024 5:09 AM EDT 08/10/2024 9:56 AM EDT us Melecio Ying MD LAB BLOOD ORDERABLES Final Resu lt [facility] [address] [place] [address], [place] [phone] * (ABNORMAL) Complete blood count (08/10/2024 5:09 AM EDT) WBC 9.9 4.8 - 10.8 K/mcL LAB HEMETOLOGY METHOD 08/10/2024 11:03 AM [facility] RBC 2.60(L) 4.50 - 5.50 M/mcL LAB HEMETOLOGY METHOD 08/10/2024 11:03 AM [facility] Hemoglobin 7.7(L) 13.5 - 17.5 g/dL LAB HEMETOLOGY METHOD 08/10/2024 11:03 AM [facility] Hematocrit 24.9(L) 42.0 - 54.0 % LAB HEMETOLOGY METHOD 08/10/2024 11:03 AM [facility] MCV 94.7 79.0 - 98.0 FL LAB HEMETOLOGY METHOD 08/10/2024 11:03 AM EDT [facility] MCH 29.3 27.0 - 32.0 pcg LAB HEMETOLOGY METHOD 08/10/2024 11:03 AM EDT [facility] MCHC 30.9(L) 32.0 - 37.0 g/dL LAB HEMETOLOGY METHOD 08/10/2024 11:03 AM EDT [facility] RDW 15.3(H) 11.0 - 15.0 % LAB HEMETOLOGY METHOD 08/10/2024 11:03 AM EDT [facility] Platelets 461(H) 130 - 400 K/mcL LAB HEMETOLOGY METHOD 08/10/2024 11:03 AM T [facility] MPV 9.3 7.0 - 11.0 FL LAB HEMETOLOGY METHOD 08/10/2024 11:03 AM EDT [facility] NRBC 0.0 <1.0 % LAB HEMETOLOGY METHOD 08/10/2024 11:03 AM [facility] NRBC Absolute 0.00 <0.10 K/mcL LAB HEMETOLOGY METHOD 08/10/2024 11:03 AM [facility] Blood Venous blood specimen / Unknown Venipuncture / Unknown 08/10/2024 5:09 AM EDT 08/10/2024 9:56 AM EDT us Melecio Ying MD LAB BLOOD ORDERABLES Final Resu lt [facility] [address] [place] [address], documented in this encounter Visit Diagnoses Diagnosis Acute kidney failure with tubular necrosis (CMS/HCC V24) documented in this encounter Care Teams Ground Water Contractor Relationship Specialty Start Date End Date Melecio Ying MD [address] [place] [address] PCP - General Internal Medicine 07/15/24 documented as of this encounter
--- OUTSIDE RECORDS SUMMARY | 2024-08-26 12:35 | XMS_ITS | Encounter Summary ---
Author Organization [facility] Address [address] [place] [address] Care Team Providers Care Maintenance Assistant Name Role Phone Melecio Ying MD Primary Care Provider [phone] Encounter Details Date Type Department Care Team (Late st Contact Info) Description 07/18/2024 Lab Requisition [facility] - Main Lab [address] [facility] [place] [address] Melecio Ying MD [address] [place] [phone] Acute kidney failure with tubular necrosis (CMS/HCC [...] mmol/L LAB CHEMISTRY METHOD 07/20/2024 11:55 AM [facility] Potassium 4.7 3.5 - 5.5 mmol/L LAB CHEMISTRY METHOD 07/20/2024 11:55 AM [facility] Chloride 96 96 - 110 mmol/L LAB CHEMISTRY METHOD 07/20/2024 11:55 AM [facility] CO2 23 21 - 32 mmol/L LAB CHEMISTRY METHOD 07/20/2024 11:55 AM [facility] Anion Gap 11 3 - 11 LAB CHEMISTRY METHOD 07/20/2024 11:55 AM [facility] Glucose 176(H) 70 - 100 mg/dL LAB CHEMISTRY METHOD 07/20/2024 11:55 AM [facility] BUN 26(H) 5 - 25 mg/dL LAB CHEMISTRY METHOD 07/20/2024 11:55 AM [facility] Creatinine 1.29 0.70 - 1.30 mg/dL LAB CHEMISTRY METHOD 07/20/2024 11:55 AM [facility] eGFR 53(L) >=60 mL/min/1. 73m2 LAB CHEMISTRY METHOD 07/20/2024 11:55 AM [facility] Comment:Calculation based on the??Chronic Kidney Disease Epidemiology Collaboration (CKD-EPI) equation refit??without adjustment for race. BUN/Creatinine Ratio 20.2 LAB CHEMISTRY METHOD 07/20/2024 11:55 AM [facility] Calcium 8.5 8.5 - 10.5 mg/dL LAB CHEMISTRY METHOD 07/20/2024 11:55 AM [facility] AST (SGOT) 13 10 - 42 unit/L LAB CHEMISTRY METHOD 07/20/2024 11:55 AM [facility] ALT (SGPT) 15 10 - 60 unit/L LAB CHEMISTRY METHOD 07/20/2024 11:55 AM [facility] Alkaline Phosphatase 101 42 - 121 unit/L LAB CHEMISTRY METHOD 07/20/2024 11:55 AM EDT [facility] Total Protein 6.5 6.0 - 8.0 g/dL LAB CHEMISTRY METHOD 07/20/2024 11:55 AM EDT [facility] Albumin 2.5(L) 3.2 - 5.0 g/dL LAB CHEMISTRY METHOD 07/20/2024 11:55 AM EDT [facility] Total Bilirubin 0.6 0.0 - 1.4 mg/dL LAB CHEMISTRY METHOD 07/20/2024 11:55 AM EDT [facility] Blood Venous blood specimen / Unknown Venipuncture / Unknown 07/20/2024 9:45 AM EDT 07/20/2024 10:51 AM EDT us Melecio Ying MD LAB BLOOD ORDERABLES Final Resu lt [facility] [address] [place] [address], [place] [phone] * (ABNORMAL) Complete blood count (07/20/2024 9:45 AM EDT) WBC 10.9(H) 4.8 - 10.8 K/mcL LAB HEMETOLOGY METHOD 07/20/2024 12:15 PM EDT [facility] RBC 2.80(L) 4.50 - 5.50 M/[facility] LAB HEMETOLOGY METHOD 07/20/2024 12:15 PM EDT [facility] Hemoglobin 8.4(L) 13.5 - 17.5 g/dL LAB HEMETOLOGY METHOD 07/20/2024 12:15 PM EDT [facility] Hematocrit 26.0(L) 42.0 - 54.0 % LAB HEMETOLOGY METHOD 07/20/2024 12:15 PM EDT [facility] MCV 92.9 79.0 - 98.0 FL LAB HEMETOLOGY METHOD 07/20/2024 12:15 PM EDT [facility] MCH 30.0 27.0 - 32.0 pcg LAB HEMETOLOGY METHOD 07/20/2024 12:15 PM EDT [facility] MCHC 32.3 32.0 - 37.0 g/dL LAB HEMETOLOGY METHOD 07/20/2024 12:15 PM EDT [facility] RDW 14.0 11.0 - 15.0 % LAB HEMETOLOGY METHOD 07/20/2024 12:15 PM EDT [facility] Platelets 387 130 - 400 K/mcL LAB HEMETOLOGY METHOD 07/20/2024 12:15 PM EDT [facility] MPV 9.7 7.0 - 11.0 FL LAB HEMETOLOGY METHOD 07/20/2024 12:15 PM EDT [facility] NRBC 0.0 <1.0 % LAB HEMETOLOGY METHOD 07/20/2024 12:15 PM EDT [facility] NRBC Absolute 0.00 <0.10 K/mcL LAB HEMETOLOGY METHOD 07/20/2024 12:15 PM EDT [facility] Blood Venous blood specimen / Unknown Venipuncture / Unknown 07/20/2024 9:45 AM EDT 07/20/2024 10:49 AM EDT us Melecio Ying MD LAB BLOOD ORDERABLES Final Resu lt [facility] [address] [place] [address], documented in this encounter Visit Diagnoses Diagnosis Acute kidney failure with tubular necrosis (CMS/HCC V24) documented in this encounter Care Teams Maintenance Assistant Relationship Specialty Start Date End Date Melecio Ying MD [address] [place] [address] PCP - General Internal Medicine 07/15/24 documented as of this encounter
--- OUTSIDE RECORDS SUMMARY | 2024-08-26 12:35 | XMS_ITS | Encounter Summary ---
Author Organization [facility] Address [address] [place] [address] Care Team Providers Care Risk Compliance Analyst Name Role Phone Melecio Ying MD Primary Care Provider Encounter Details Date Type Department Care Team (Late st Contact Info) Description 07/24/2024 Lab Requisition [facility] - Main Lab [address] [facility] [place] [address] Melecio Ying MD [address] [place] [phone] Acute respiratory failure with hypoxia (CMS/HCC V24, CMS/HCC V28); Other jail (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 Social History Tobacco Use [...] EDT Acute respiratory failure with hypoxia Other jail (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 URINALYSIS WITH REFLEX MICROSCOPIC Routine 07/23/2024 2:30 PM EDT Acute respiratory failure with hypoxia Other jail (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 CULTURE URINE Routine 07/23/2024 2:30 PM EDT Acute respiratory failure with hypoxia 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 documented in this encounter Results * (ABNORMAL) Urinalysis with reflex microscopic (07/23/2024 2:30 PM EDT) Specific [place] Urine 1.020 1.003 - 1.030 LAB URINALYSIS - AUTOMATED METHOD 07/24/2024 11:11 AM [facility] pH, Urine 5.5 5.0 - 8.0 pH LAB URINALYSIS - AUTOMATED METHOD 07/24/2024 11:11 AM [facility] Leukocytes, Urine Large(A) Negative LAB URINALYSIS - AUTOMATED METHOD 07/24/2024 11:11 AM [facility] Nitrite, Urine Negative Negative LAB URINALYSIS - AUTOMATED METHOD 07/24/2024 11:11 AM [facility] Protein, Urine 300(A) <=Trace mg/dL LAB URINALYSIS - AUTOMATED METHOD 07/24/2024 11:11 AM [facility] Glucose, Urine Negative Negative mg/dL LAB URINALYSIS - AUTOMATED METHOD 07/24/2024 11:11 AM [facility] Ketones, Urine Trace(A) Negative mg/dL LAB URINALYSIS - AUTOMATED METHOD 07/24/2024 11:11 AM [facility] Urobilinogen , Urine 1.0 0.2 - 1.0 mg/dL LAB URINALYSIS - AUTOMATED METHOD 07/24/2024 11:11 AM [facility] Bilirubin, Urine Negative Negative LAB URINALYSIS - AUTOMATED METHOD 07/24/2024 11:11 AM [facility] Blood, Urine Large(A) Negative LAB URINALYSIS - AUTOMATED METHOD 07/24/2024 11:11 AM [facility] RBC, Urine 20.0(H) 0 - 4 /HPF LAB URINALYSIS - AUTOMATED METHOD 07/24/2024 11:11 AM [facility] WBC, Urine 3,506.1(H) 0 - 4 /HPF LAB URINALYSIS - AUTOMATED METHOD 07/24/2024 11:11 AM EDT [facility] Squamous Epithelial, Urine 65(H) 0 - 60 /LPF LAB URINALYSIS - AUTOMATED METHOD 07/24/2024 11:11 AM EDT [facility] Bacteria, Urine Negative Negative /HPF LAB URINALYSIS - AUTOMATED METHOD 07/24/2024 11:11 AM EDT [facility] Hyaline Casts, Urine 24.3(H) 0 - 3 /LPF LAB URINALYSIS - AUTOMATED METHOD 07/24/2024 11:11 AM EDT [facility] Yeast, Urine Present(A) None /HPF LAB URINALYSIS - AUTOMATED METHOD 07/24/2024 11:11 AM EDT [facility] Urine Urine specimen obtained by clean catch procedure / Unknown Non-blood Collection / Unknown 07/23/2024 2:30 PM EDT 07/24/2024 9:42 AM EDT us Melecio Ying MD LAB URINE ORDERABLES Final Resu lt [facility] [address] [place] [address], [place] [phone] * (ABNORMAL) Culture urine (07/23/2024 2:30 PM EDT) Culture, Urine >100,000 CFU/mL Aminta albicans/du bliniensis( A) 07/28/2024 9:54 AM EDT [facility] Comment: Edited result: Previously reported as Yeast on 07/25/2024 at 1022 EDT. 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
--- OUTSIDE RECORDS SUMMARY | 2024-08-26 12:35 | XMS_ITS | Encounter Summary ---
Author Organization [facility] Address [address] [place] [address] Care Team Providers Care Manager Search Name Role Phone Melecio Ying MD Primary Care Provider [phone] Encounter Details Date Type Department Care Team (Late st Contact Info) Description 08/05/2024 Lab Requisition [facility] - Main Lab [address] [facility] [place] [address] Melecio Ying MD [address] [place] [phone] Acute kidney failure with tubular necrosis (CMS/HCC [...] mmol/L LAB CHEMISTRY METHOD 08/06/2024 7:18 AM [facility] Potassium 4.4 3.5 - 5.5 mmol/L LAB CHEMISTRY METHOD 08/06/2024 7:18 AM [facility] Chloride 104 96 - 110 mmol/L LAB CHEMISTRY METHOD 08/06/2024 7:18 AM [facility] CO2 23 21 - 32 mmol/L LAB CHEMISTRY METHOD 08/06/2024 7:18 AM [facility] Anion Gap 6 3 - 11 LAB CHEMISTRY METHOD 08/06/2024 7:18 AM [facility] Glucose 107(H) 70 - 100 mg/dL LAB CHEMISTRY METHOD 08/06/2024 7:18 AM [facility] BUN 22 5 - 25 mg/dL LAB CHEMISTRY METHOD 08/06/2024 7:18 AM [facility] Creatinine 1.37(H) 0.70 - 1.30 mg/dL LAB CHEMISTRY METHOD 08/06/2024 7:18 AM [facility] eGFR 50(L) >=60 mL/min/1. 73m2 LAB CHEMISTRY METHOD 08/06/2024 7:18 AM [facility] Comment:Calculation based on the??Chronic Kidney Disease Epidemiology Collaboration (CKD-EPI) equation refit??without adjustment for race. BUN/Creatinine Ratio 16.1 LAB CHEMISTRY METHOD 08/06/2024 7:18 AM [facility] Calcium 8.6 8.5 - 10.5 mg/dL LAB CHEMISTRY METHOD 08/06/2024 7:18 AM [facility] Blood Venous blood specimen / Unknown Venipuncture / Unknown 08/06/2024 5:52 AM EDT 08/06/2024 6:36 AM EDT us Melecio Ying MD LAB BLOOD ORDERABLES Final Resu lt [facility] [address] [place] [address], * (ABNORMAL) Complete blood count (08/06/2024 5:52 AM EDT) WBC 10.8 4.8 - 10.8 K/mcL LAB HEMETOLOGY METHOD 08/06/2024 7:[address] [facility] RBC 2.70(L) 4.50 - 5.50 M/mcL LAB HEMETOLOGY METHOD 08/06/2024 7:[address] [facility] Hemoglobin 7.8(L) 13.5 - 17.5 g/dL LAB HEMETOLOGY METHOD 08/06/2024 7:02 AM [facility] Hematocrit 25.1(L) 42.0 - 54.0 % LAB HEMETOLOGY METHOD [facility] MCV 93.7 79.0 - 98.0 FL LAB HEMETOLOGY METHOD [facility]24 [facility] MCH 29.1 27.0 - 32.0 pcg LAB HEMETOLOGY METHOD 08/06/2024 7:02 AM [facility] MCHC 31.1(L) 32.0 - 37.0 g/dL LAB HEMETOLOGY METHOD 08/06/2024 7[facility] RDW 14.8 11.0 - 15.0 % LAB HEMETOLOGY METHOD 08/06/2024 [facility] Platelets 460(H) 130 - 400 K/mcL LAB HEMETOLOGY METHOD 08/06/2024 7:02 AM [facility] MPV 9.2 7.0 - 11.0 FL LAB HEMETOLOGY METHOD 08/06/2024 7[facility] NRBC 0.0 <1.0 [...] Resu lt [facility] [address] [place] [address], documented in this encounter Visit Diagnoses Diagnosis Acute kidney failure with tubular necrosis (CMS/HCC V24) documented in this encounter Care Teams Manager Search Relationship Specialty Start Date End Date Melecio Ying MD [address] [place] [address] PCP - General Internal Medicine 07/15/24 documented as of this encounter
--- OUTSIDE RECORDS SUMMARY | 2024-08-26 12:35 | XMS_ITS | Clinical Summary ---
Author Organization [address] Address [address] [place] [address] Phone Care Team Providers Care [employer] Worker Name Role Phone Melecio Ying MD Primary Care Provider [phone] Encounters Date Type Department Care Team Description 08/19/2024 Lab Requisition [facility] [address] [place] [phone] Melecio Ying MD Acute kidney failure with tubular necrosis ([facility]/HCC V24) 08/14/2024 Lab Requisition [facility] [address] [place] [address] Melecio Ying MD Acute kidney failure with tubular necrosis ([facility]/HCC V24) 08/12/2024 Lab Requisition [facility] [address] [place] [phone] Melecio Ying MD Acute kidney failure with tubular necrosis ([facility]/HCC V24) 08/07/2024 Lab Requisition [facility] [address] [place] [phone] Melecio Ying MD Acute kidney failure with tubular necrosis (CMS/HCC V24) 08/05/2024 Lab Requisition [facility] [address] [place] [phone] Melecio Ying MD Acute kidney failure with tubular necrosis (CMS/HCC V24) 08/01/2024 Lab Requisition [facility] [address] [place] [phone] Melecio Ying MD Acute kidney failure with tubular necrosis (CMS/HCC V24) 07/29/2024 Lab Requisition [facility] [address] [place] [phone] Melecio Ying MD Acute kidney failure with tubular necrosis (CMS/HCC V24) 07/26/2024 Lab Requisition [facility] [address] [place] [phone] Melecio Ying MD Acute kidney failure with tubular necrosis (CMS/HCC V24) 07/24/2024 Lab Requisition [facility] [address] [place] [phone] Melecio Ying MD Acute respiratory failure with hypoxia (CMS/HCC V24, CMS/HCC V28); Other alf (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 07/24/2024 Lab Requisition [facility] [address] [place] [phone] Melecio Ying MD Acute respiratory failure with hypoxia (CMS/HCC V24, CMS/HCC V28); 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 07/22/2024 Lab Requisition [facility] [address] [place] [phone] Melecio Ying MD Acute kidney failure with tubular necrosis (CMS/HCC V24) 07/18/2024 Lab Requisition [facility] [address] [place] [phone] Melecio Ying MD Acute kidney failure with tubular necrosis (CMS/HCC V24) 07/15/2024 Lab Requisition [facility] [address] [place] [address] Melecio Ying MD Acute kidney failure with tubular necrosis (CMS/HCC V24) 07/15/2024 Lab Requisition [facility] - Main Lab [address] [facility] [place] [address] Melecio Ying MD Acute kidney failure with tubular necrosis ([facility] V24) from Last 3 Months Social History Tobacco Use Types Packs/Day Years Used Date Smoking Tobacco: Never Assessed Sex and Gender Information Value Date Recorded Sex Assigned at Not on file Legal Sex Male 9:41 AM EDT Gender Identity Not on file Sexual Orientation Not on file Plan of Treatment Health Maintenance Due Date Last Done Comments DTaP,Tdap,and Td Vaccines (1 - Tdap) 1954 Pneumococcal Vaccine: 50+ Years (1 of 2 - PCV) 1955 Zoster Vaccines (1 of 2) 1986 RSV Immunization Adult Patients (1 - 1-dose 75+ series) 2011 COVID-19 Vaccine ( season) 2023 Depression Screening 07/15/2024 Falls Risk [...] EDT Acute respiratory failure with hypoxia Other alf (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 LIPID PANEL WITH REFLEX TO DIRECT LDL Routine 07/24/2024 5:49 AM EDT Acute respiratory failure with hypoxia Other alf (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 MAGNESIUM Routine 07/24/2024 5:49 AM EDT Acute respiratory failure with hypoxia Other alf (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 THYROID STIMULATING HORMONE WITH REFLEX TO FREE T4 AND FREE T3 Routine 07/24/2024 5:49 AM EDT Acute respiratory failure with hypoxia Other alf (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 HEMOGLOBIN A1C Routine 07/24/2024 5:49 AM EDT Acute respiratory failure with hypoxia 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 COMPLETE BLOOD COUNT Routine 07/24/2024 5:49 AM EDT Acute respiratory failure with hypoxia 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 URINALYSIS WITH REFLEX MICROSCOPIC Routine 07/23/2024 2:30 PM EDT Acute respiratory failure with hypoxia 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0 - 37.0 g/dL LAB HEMETOLOGY METHOD 08/17/2024 11:44 AM EDT [facility] RDW 15.8(H) 11.0 - 15.0 % LAB HEMETOLOGY METHOD 08/17/2024 11:44 AM [facility] Platelets 506(H) 130 - 400 K/mcL LAB HEMETOLOGY METHOD 08/17/2024 11:44 AM EDT [facility] MPV 9.2 7.0 - 11.0 FL LAB HEMETOLOGY METHOD 08/17/2024 11:44 AM EDT [facility] NRBC 0.0 <1.0 % LAB HEMETOLOGY METHOD 08/17/2024 11:44 AM [facility] NRBC Absolute 0.00 <0.10 K/mcL LAB HEMETOLOGY METHOD 08/17/2024 11:44 AM EDT [facility] Blood Venous blood specimen / Unknown Venipuncture / Unknown 08/17/2024 5:16 AM EDT 08/17/2024 10:04 AM EDT us Melecio Ying MD LAB BLOOD ORDERABLES Final Resu lt [facility] [address] [place] [address], * (ABNORMAL) Comprehensive metabolic panel (08/17/2024 5:16 [...] LAB CHEMISTRY METHOD 08/17/2024 12:46 PM EDT [facility] Alkaline Phosphatase 101 42 - 121 unit/L LAB CHEMISTRY METHOD 08/17/2024 12:46 PM EDT [facility] Total Protein 6.8 6.0 - 8.0 g/dL LAB CHEMISTRY METHOD 08/17/2024 12:46 PM T [facility] Albumin 2.5(L) 3.2 - 5.0 g/dL LAB CHEMISTRY METHOD 08/17/2024 12:46 PM [facility] Total Bilirubin 0.5 0.0 - 1.4 mg/dL LAB CHEMISTRY METHOD 08/17/2024 12:46 PM [facility] Blood Venous blood specimen / Unknown Venipuncture / Unknown 08/17/2024 5:16 AM EDT 08/17/2024 10:04 AM EDT us Melecio Ying MD LAB BLOOD ORDERABLES Final Resu lt [facility] [address] [place] [address], * (ABNORMAL) Basic metabolic panel (08/13/2024 5:52 AM EDT) Only the most recent of5 resultswithin the time period is included. Sodium 137 133 - 145 mmol/L LAB CHEMISTRY METHOD 08/13/2024 10:54 AM EDT [facility] Potassium 4.3 3.5 - 5.5 mmol/L LAB CHEMISTRY METHOD 08/13/2024 10:54 AM T [facility] Chloride 105 96 - 110 mmol/L LAB CHEMISTRY METHOD 08/13/2024 10:54 AM [facility] CO2 21 21 - 32 mmol/L LAB CHEMISTRY METHOD 08/13/2024 10:54 AM EDT [facility] Anion Gap 11 3 - 11 LAB CHEMISTRY METHOD 08/13/2024 10:54 AM [facility] Glucose 115(H) 70 - 100 mg/dL LAB CHEMISTRY METHOD 08/13/2024 10:54 AM [facility] BUN 22 5 - 25 mg/dL LAB CHEMISTRY METHOD 08/13/2024 10:54 AM [facility] Creatinine 1.34(H) 0.70 - 1.30 mg/dL LAB CHEMISTRY METHOD 08/13/2024 10:54 AM [facility] eGFR 51(L) >=60 mL/min/1. 73m2 LAB CHEMISTRY METHOD 08/13/2024 10:54 AM [facility] Comment:Calculation based on the??Chronic Kidney Disease Epidemiology Collaboration (CKD-EPI) equation refit??without adjustment for race. BUN/Creatinine Ratio 16.4 LAB CHEMISTRY METHOD 08/13/2024 10:54 AM [facility] Calcium 8.5 8.5 - 10.5 mg/dL LAB CHEMISTRY METHOD 08/13/2024 10:54 AM [facility] Blood Venous blood specimen / Unknown Venipuncture / Unknown 08/13/2024 5:52 AM EDT 08/13/2024 9:40 AM EDT us Melecio Ying MD LAB BLOOD ORDERABLES Final Resu lt [facility] [address] [place] [address], * Thyroid stimulating hormone with reflex to free t4 and free t3 (07/24/2024 5:49 AM EDT) TSH 0.50 0.40 - 4.00 mcIU/mL LAB CHEMISTRY METHOD 07/24/2024 11:54 AM [facility] Blood Venous blood specimen / Unknown Venipuncture / Unknown 07/24/2024 5:49 AM EDT 07/24/2024 9:34 AM EDT us Melecio Ying MD LAB BLOOD ORDERABLES Final Resu lt Performing Organization Address City/[facility]/ZIP Co de Phone Number [facility] [address] [place] [address], [place] [phone] * (ABNORMAL) Lipid panel with reflex to direct LDL (07/24/2024 5:49 AM EDT) Cholesterol 83 0 - 200 mg/dL LAB CHEMISTRY METHOD 07/24/2024 11:13 AM EDT [facility] Triglycerides 89 0 - 150 mg/dL LAB CHEMISTRY METHOD 07/24/2024 11:13 AM [facility] HDL 30(L) >=40 mg/dL LAB CHEMISTRY METHOD 07/24/2024 11:13 AM T [facility] LDL Calculated 35 0 - 100 mg/dL LAB CHEMISTRY METHOD 07/24/2024 11:13 AM EDT [facility] VLDL Cholesterol Juan 17.8 mg/dL LAB CHEMISTRY METHOD 07/24/2024 11:13 AM [facility] Non HDL Chol. (LDL+VLDL) 53 <145 mg/dL LAB CHEMISTRY METHOD 07/24/2024 11:13 AM EDT [facility] Chol/HDL Ratio 2.8 0.0 - 4.4 LAB CHEMISTRY METHOD 07/24/2024 11:13 AM [facility] Blood Venous blood specimen / Unknown Venipuncture / Unknown 07/24/2024 5:49 AM EDT 07/24/2024 9:34 AM EDT us Melecio Ying MD LAB BLOOD ORDERABLES Final Resu lt [facility] [address] [place] [address], [place] [phone] * Magnesium (07/24/2024 5:49 AM EDT) [facility] Magnesium 1.9 1.9 - 2.6 mg/dL LAB CHEMISTRY METHOD 07/24/2024 11:11 AM EDT [facility] Blood Venous blood specimen / Unknown Venipuncture / Unknown 07/24/2024 5:49 AM EDT 07/24/2024 9:34 AM EDT us Melecio Ying MD LAB BLOOD ORDERABLES Final Resu lt Performing Organization Address [facility]/ZIP Co de Phone Number [facility] [address] [place] [address], [place] [phone] * (ABNORMAL) Hemoglobin A1c (07/24/2024 5:49 AM EDT) [facility] Hemoglobin A1C 7.6(H) <6.5 % LAB CHEMISTRY METHOD 07/24/2024 12:12 PM EDT [facility] Mean Bld Glu Estim. 171 mg/dL LAB CHEMISTRY METHOD 07/24/2024 12:12 PM EDT [facility] Blood Venous blood specimen / Unknown Venipuncture / Unknown 07/24/2024 5:49 AM EDT 07/24/2024 9:34 AM EDT us Melecio Ying MD LAB BLOOD ORDERABLES Final Resu lt [facility] [address] [place] [address], [place] [phone] * Creatine kinase (07/24/2024 5:49 AM EDT) [facility] Total CK 31 22 - 269 unit/L LAB CHEMISTRY METHOD 07/24/2024 11:11 AM EDT [facility] Blood Venous blood specimen / Unknown Venipuncture / Unknown 07/24/2024 5:49 AM EDT 07/24/2024 9:34 AM EDT us Melceio Ying MD LAB BLOOD ORDERABLES Final Resu lt [facility] [address] [place] [address], [place] [phone] * (ABNORMAL) Urinalysis with reflex microscopic (07/23/2024 2:30 PM EDT) Specific [place] Urine 1.020 1.003 - 1.030 LAB URINALYSIS - AUTOMATED METHOD 07/24/2024 11:11 AM [facility] pH, Urine 5.5 5.0 - 8.0 pH LAB URINALYSIS - AUTOMATED METHOD 07/24/2024 11:11 AM [facility] Leukocytes, Urine Large(A) Negative LAB URINALYSIS - AUTOMATED METHOD 07/24/2024 11:11 AM [facility] Nitrite, Urine Negative Negative LAB URINALYSIS - AUTOMATED METHOD 07/24/2024 11:11 AM [facility] Protein, Urine 300(A) <=Trace mg/dL LAB URINALYSIS - AUTOMATED METHOD 07/24/2024 11:11 AM [facility] Glucose, Urine Negative Negative mg/dL LAB URINALYSIS - AUTOMATED METHOD 07/24/2024 11:11 AM [facility] Ketones, Urine Trace(A) Negative mg/dL LAB URINALYSIS - AUTOMATED METHOD 07/24/2024 11:11 AM [facility] Urobilinogen , Urine 1.0 0.2 - 1.0 mg/dL LAB URINALYSIS - AUTOMATED METHOD 07/24/2024 11:11 AM [facility] Bilirubin, Urine Negative Negative LAB URINALYSIS - AUTOMATED METHOD 07/24/2024 11:11 AM [facility] Blood, Urine Large(A) Negative LAB URINALYSIS - AUTOMATED METHOD 07/24/2024 11:11 AM [facility] RBC, Urine 20.0(H) 0 - 4 /HPF LAB URINALYSIS - AUTOMATED METHOD 07/24/2024 11:11 AM [facility] WBC, Urine 3,506.1(H) 0 - 4 /HPF LAB URINALYSIS - AUTOMATED METHOD 07/24/2024 11:11 AM [facility] Squamous Epithelial, Urine 65(H) 0 - 60 /LPF LAB URINALYSIS - AUTOMATED METHOD 07/24/2024 11:11 AM [facility] Bacteria, Urine Negative Negative /HPF LAB URINALYSIS - AUTOMATED METHOD 07/24/2024 11:11 AM [facility] Hyaline Casts, Urine 24.3(H) 0 - 3 /LPF LAB URINALYSIS - AUTOMATED METHOD 07/24/2024 11:11 AM [facility] Yeast, Urine Present(A) None /HPF LAB URINALYSIS - AUTOMATED METHOD 07/24/2024 11:11 AM [facility] Urine Urine specimen obtained by clean catch procedure / Unknown Non-blood Collection / Unknown 07/23/2024 2:30 PM EDT 07/24/2024 9:42 AM EDT us Melecio Ying MD LAB URINE ORDERABLES Final Resu lt [facility] [address] [place] [address], * (ABNORMAL) Culture urine (07/23/2024 2:30 PM EDT) Culture, Urine >100,000 CFU/mL Aminta albicans/du bliniensis( A) 07/28/2024 9:54 AM EDT [facility] Comment: Edited result: Previously reported as Yeast on 07/25/2024 at 1022 EDT. Urine Urine specimen obtained by clean catch procedure / Unknown Non-blood Collection / Unknown 07/23/2024 2:30 PM EDT 07/24/2024 9:42 AM EDT Melecio Ying MD LAB MICROBIOLOGY - GENERAL KATTY BLACK Final Result [facility] ([facility]) [facility] [address] [place] [address], [place] [phone] from Last 3 Months Insurance MEDICARE Care Teams [employer] Worker Relationship Specialty Start Date End Date Melecio Ying MD [address] [place] [address] PCP - General Internal Medicine 07/15/24
--- OUTSIDE RECORDS SUMMARY | 2024-08-26 12:35 | XMS_ITS | Encounter Summary ---
Author Organization [facility] Address [address] [place] [address] Care Team Providers Care Distribution Accounting Clerk Name Role Phone Melecio Ying MD Primary Care Provider [phone] Encounter Details Date Type Department Care Team (Late st Contact Info) Description 07/24/2024 Lab Requisition [facility] - Main Lab [address] [facility] [place] [address] Melecio Ying MD [address] [place] [phone] Acute respiratory failure with hypoxia (CMS/HCC V24, CMS/HCC V28); Other production intern (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 Social History Tobacco Use [...] with hypoxia Other jail (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 LIPID PANEL WITH REFLEX TO DIRECT LDL Routine 07/24/2024 5:49 AM EDT Acute respiratory failure with hypoxia Other jail (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 COMPLETE BLOOD COUNT Routine 07/24/2024 5:49 AM EDT Acute respiratory failure with hypoxia Other production intern (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 MAGNESIUM Routine 07/24/2024 5:49 AM EDT Acute respiratory failure with hypoxia Other production intern (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 HEMOGLOBIN A1C Routine 07/24/2024 5:49 AM EDT Acute respiratory failure with hypoxia Other jail (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 CREATINE KINASE Routine 07/24/2024 5:49 AM EDT Acute respiratory failure with hypoxia Other jail (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 documented in this encounter Results * Creatine kinase (07/24/2024 5:49 AM EDT) [facility] Total CK 31 22 - 269 unit/L LAB CHEMISTRY METHOD 07/24/2024 11:11 AM EDT [facility] Blood Venous blood specimen / Unknown Venipuncture / Unknown 07/24/2024 5:49 AM EDT 07/24/2024 9:34 AM EDT us Melecio Ying MD LAB BLOOD ORDERABLES Final Resu lt [facility] [address] [place] [address], [place] [phone] * (ABNORMAL) Lipid panel with reflex to direct LDL (07/24/2024 5:49 AM EDT) [facility] Cholesterol 83 0 - 200 mg/dL LAB CHEMISTRY METHOD 07/24/2024 11:13 AM EDT [facility] Triglycerides 89 0 - 150 mg/dL LAB CHEMISTRY METHOD 07/24/2024 11:13 AM EDT [facility] HDL 30(L) >=40 mg/dL LAB CHEMISTRY METHOD 07/24/2024 11:13 AM EDT [facility] LDL Calculated 35 0 - 100 mg/dL LAB CHEMISTRY METHOD 07/24/2024 11:13 AM EDT [facility] VLDL Cholesterol Juan 17.8 mg/dL LAB CHEMISTRY METHOD 07/24/2024 11:13 AM EDT [facility] Non HDL Chol. (LDL+VLDL) 53 <145 mg/dL LAB CHEMISTRY METHOD 07/24/2024 11:13 AM EDT [facility] Chol/HDL Ratio 2.8 0.0 - 4.4 LAB CHEMISTRY METHOD 07/24/2024 11:13 AM EDT [facility] Blood Venous blood specimen / Unknown Venipuncture / Unknown 07/24/2024 5:49 AM EDT 07/24/2024 9:34 AM EDT Melecio Ying MD LAB BLOOD ORDERABLES Final Resu lt Performing Organization Address City/[facility]/ZIP Co de Phone Number [facility] [address] [place] [address], [place] [phone] * Magnesium (07/24/2024 5:49 AM EDT) Magnesium 1.9 1.9 - 2.6 mg/dL LAB CHEMISTRY METHOD 07/24/2024 11:11 AM EDT [facility] Blood Venous blood specimen / Unknown Venipuncture / Unknown 07/24/2024 5:49 AM EDT 07/24/2024 9:34 AM EDT Melecio Ying MD LAB BLOOD ORDERABLES Final Resu lt [facility] [address] [place] [address], [place] [phone] * Thyroid stimulating hormone with reflex to free t4 and free t3 (07/24/2024 5:49 AM EDT) TSH 0.50 0.40 - 4.00 mcIU/mL LAB CHEMISTRY METHOD 07/24/2024 11:54 AM EDT [facility] Blood Venous blood specimen / Unknown Venipuncture / Unknown 07/24/2024 5:49 AM EDT 07/24/2024 9:34 AM EDT us Melecio Ying MD LAB BLOOD ORDERABLES Final Resu lt Performing Organization Address [facility]/ZIP Co de Phone Number [facility] [address] [place] [address], [place] [phone] * (ABNORMAL) Hemoglobin A1c (07/24/2024 5:49 AM EDT) Pathologist [facility] Hemoglobin A1C 7.6(H) <6.5 % LAB CHEMISTRY METHOD 07/24/2024 12:12 PM EDT [facility] Mean Bld Glu Estim. 171 mg/dL LAB CHEMISTRY METHOD 07/24/2024 12:12 PM EDT [facility] Blood Venous blood specimen / Unknown Venipuncture / Unknown 07/24/2024 5:49 AM EDT 07/24/2024 9:34 AM EDT us Melecio Ying MD LAB BLOOD ORDERABLES Final Resu lt Performing Organization Address [facility]/ZIP Co de Phone Number [facility] [address] [place] [address], [place] [phone] * (ABNORMAL) Complete blood count (07/24/2024 5:49 AM EDT) Pathologist [facility] WBC 11.8(H) 4.8 - 10.8 K/[facility] LAB HEMETOLOGY METHOD 07/24/2024 10:30 AM EDT [facility] RBC 2.70(L) 4.50 - 5.50 M/[facility] LAB HEMETOLOGY METHOD 07/24/2024 10:30 AM EDT [facility] Hemoglobin 8.1(L) 13.5 - 17.5 g/dL LAB HEMETOLOGY METHOD 07/24/2024 10:30 AM EDT [facility] Hematocrit 24.5(L) 42.0 - 54.0 % LAB HEMETOLOGY METHOD 07/24/2024 10:30 AM EDT [facility] MCV 90.1 79.0 - 98.0 FL LAB HEMETOLOGY METHOD 07/24/2024 10:30 AM EDT [facility] MCH 29.8 27.0 - 32.0 pcg LAB HEMETOLOGY METHOD 07/24/2024 10:30 AM EDT [facility] MCHC 33.1 32.0 - 37.0 g/dL LAB HEMETOLOGY METHOD 07/24/2024 10:30 AM EDT [facility] RDW 14.0 11.0 - 15.0 % LAB HEMETOLOGY METHOD 07/24/2024 10:30 AM [facility] Platelets 409(H) 130 - 400 K/mcL LAB HEMETOLOGY METHOD 07/24/2024 10:30 AM EDT [facility] MPV 9.4 7.0 - 11.0 FL LAB HEMETOLOGY METHOD 07/24/2024 10:30 AM EDT [facility] NRBC 0.0 <1.0 % LAB HEMETOLOGY METHOD 07/24/2024 10:30 AM T [facility] NRBC Absolute 0.00 <0.10 K/mcL LAB HEMETOLOGY METHOD 07/24/2024 10:30 AM T [facility] Blood Venous blood specimen / Unknown Venipuncture / Unknown 07/24/2024 5:49 AM EDT 07/24/2024 9:34 AM EDT us Melecio Ying MD LAB BLOOD ORDERABLES Final Resu lt [facility] [address] [place] [address], [place] [phone] documented in this encounter Visit Diagnoses Diagnosis Acute respiratory failure with hypoxia (CMS/HCC V24, CMS/HCC V28) Other jail (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 documented in this encounter Care Teams Distribution Accounting Clerk Relationship Specialty Start Date End Date Melecio Ying MD [address] [place] [address] PCP - General Internal Medicine 07/15/24 documented as of this encounter
--- OUTSIDE RECORDS SUMMARY | 2024-08-26 12:35 | XMS_ITS | Encounter Summary ---
Author Organization [facility] Address [address] [place] [address] Care Team Providers Care Resource Engineer Name Role Phone Melecio Ying MD Primary Care Provider Encounter Details Date Type Department Care Team (Late st Contact Info) Description 08/19/2024 Lab Requisition [facility] - Main Lab [address] [facility] [place] [address] Melecio Ying MD [address] [place] [phone] Acute kidney failure with tubular necrosis (CMS/HCC [...] V24) documented in this encounter Care Teams Resource Engineer Relationship Specialty Start Date End Date Melecio Ying MD [address] [place] [address] PCP - General Internal Medicine 07/15/24 documented as of this encounter
--- OUTSIDE RECORDS SUMMARY | 2024-08-26 12:35 | XMS_ITS | Encounter Summary ---
Author Organization [facility] Address [address] [place] [address] Care Team Providers Care Personnel Counselor Name Role Phone Melecio Ying MD Primary Care Provider [phone] Encounter Details Date Type Department Care Team (Late st Contact Info) Description 07/26/2024 Lab Requisition [facility] - Main Lab [address] [facility] [place] [phone] Melecio Ying MD [address] [place] [phone] Acute kidney failure with tubular necrosis (CMS/HCC [...] mmol/L LAB CHEMISTRY METHOD 07/27/2024 1:37 PM [facility] Potassium 5.2 3.5 - 5.5 mmol/L LAB CHEMISTRY METHOD 07/27/2024 1:37 PM [facility] Chloride 98 96 - 110 mmol/L LAB CHEMISTRY METHOD 07/27/2024 1:37 PM [facility] CO2 22 21 - 32 mmol/L LAB CHEMISTRY METHOD 07/27/2024 1:37 PM [facility] Anion Gap 10 3 - 11 LAB CHEMISTRY METHOD 07/27/2024 1:37 PM [facility] Glucose 134(H) 70 - 100 mg/dL LAB CHEMISTRY METHOD 07/27/2024 1:37 PM [facility] BUN 27(H) 5 - 25 mg/dL LAB CHEMISTRY METHOD 07/27/2024 1:37 PM [facility] Creatinine 1.33(H) 0.70 - 1.30 mg/dL LAB CHEMISTRY METHOD 07/27/2024 1:37 PM [facility] eGFR 51(L) >=60 mL/min/1. 73m2 LAB CHEMISTRY METHOD 07/27/2024 1:37 PM [facility] Comment:Calculation based on the??Chronic Kidney Disease Epidemiology Collaboration (CKD-EPI) equation refit??without adjustment for race. BUN/Creatinine Ratio 20.3 LAB CHEMISTRY METHOD 07/27/2024 1:37 PM [facility] Calcium 8.5 8.5 - 10.5 mg/dL LAB CHEMISTRY METHOD 07/27/2024 1:37 PM [facility] AST (SGOT) 13 10 - 42 unit/L LAB CHEMISTRY METHOD 07/27/2024 1:37 PM [facility] ALT (SGPT) 15 10 - 60 unit/L LAB CHEMISTRY METHOD 07/27/2024 1:37 PM [facility] Alkaline Phosphatase 95 42 - 121 unit/L LAB CHEMISTRY METHOD 07/27/2024 1:37 PM EDT [facility] Total Protein 6.5 6.0 - 8.0 g/dL LAB CHEMISTRY METHOD 07/27/2024 1:37 PM T [facility] Albumin 2.4(L) 3.2 - 5.0 g/dL LAB CHEMISTRY METHOD 07/27/2024 1:37 PM EDT [facility] Total Bilirubin 0.5 0.0 - 1.4 mg/dL LAB CHEMISTRY METHOD 07/27/2024 1:37 PM T [facility] Blood Venous blood specimen / Unknown Venipuncture / Unknown 07/27/2024 5:27 AM EDT 07/27/2024 11:08 AM EDT us Melecio Ying MD LAB BLOOD ORDERABLES Final Resu lt [facility] [address] [place] [address], [place] [phone] * (ABNORMAL) Complete blood count (07/27/2024 5:27 AM EDT) WBC 12.8(H) 4.8 - 10.8 K/mcL LAB HEMETOLOGY METHOD 07/27/2024 11:47 AM [facility] RBC 2.90(L) 4.50 - 5.50 M/[facility] LAB HEMETOLOGY METHOD 07/27/2024 11:47 AM T [facility] Hemoglobin 8.7(L) 13.5 - 17.5 g/dL LAB HEMETOLOGY METHOD 07/27/2024 11:47 AM [facility] Hematocrit 27.6(L) 42.0 - 54.0 % LAB HEMETOLOGY METHOD 07/27/2024 11:47 AM EDT [facility] MCV 94.8 79.0 - 98.0 FL LAB HEMETOLOGY METHOD 07/27/2024 11:47 AM EDT [facility] MCH 29.9 27.0 - 32.0 pcg LAB HEMETOLOGY METHOD 07/27/2024 11:47 AM EDT [facility] MCHC 31.5(L) 32.0 - 37.0 g/dL LAB HEMETOLOGY METHOD 07/27/2024 11:47 AM EDT [facility] RDW 14.3 11.0 - 15.0 % LAB HEMETOLOGY METHOD 07/27/2024 11:47 AM EDT [facility] Platelets 488(H) 130 - 400 K/mcL LAB HEMETOLOGY METHOD 07/27/2024 11:47 AM EDT [facility] MPV 9.7 7.0 - 11.0 FL LAB HEMETOLOGY METHOD 07/27/2024 11:47 AM EDT [facility] NRBC 0.0 <1.0 % LAB HEMETOLOGY METHOD 07/27/2024 11:47 AM [facility] NRBC Absolute 0.00 <0.10 K/mcL LAB HEMETOLOGY METHOD 07/27/2024 11:47 AM [facility] Blood Venous blood specimen / Unknown Venipuncture / Unknown 07/27/2024 5:27 AM EDT 07/27/2024 11:08 AM EDT us Melecio Ying MD LAB BLOOD ORDERABLES Final Resu lt [facility] [address] [place] [address], documented in this encounter Visit Diagnoses Diagnosis Acute kidney failure with tubular necrosis (CMS/HCC V24) documented in this encounter Care Teams Personnel Counselor Relationship Specialty Start Date End Date Melecio Ying MD [address] [place] [address] PCP - General Internal Medicine 07/15/24 documented as of this encounter
--- OUTSIDE RECORDS SUMMARY | 2024-08-26 12:35 | XMS_ITS | Encounter Summary ---
Author Organization [facility] Address [address] [place] [address] Care Team Providers Care Disc Jockey Name Role Phone Melecio Ying MD Primary Care Provider [phone] Encounter Details Date Type Department Care Team (Late st Contact Info) Description 07/22/[address] [facility] - Main Lab [address] [facility] [place] [address] Melecio Ying MD [address] [place] [phone] Acute kidney failure with tubular necrosis (CMS/HCC [...] mmol/L LAB CHEMISTRY METHOD 07/23/2024 11:39 AM [facility] Potassium 4.8 3.5 - 5.5 mmol/L LAB CHEMISTRY METHOD 07/23/2024 11:39 AM [facility] Chloride 99 96 - 110 mmol/L LAB CHEMISTRY METHOD 07/23/2024 11:39 AM [facility] CO2 23 21 - 32 mmol/L LAB CHEMISTRY METHOD 07/23/2024 11:39 AM [facility] Anion Gap 10 3 - 11 LAB CHEMISTRY METHOD 07/23/2024 11:39 AM [facility] Glucose 137(H) 70 - 100 mg/dL LAB CHEMISTRY METHOD 07/23/2024 11:39 AM [facility] BUN 29(H) 5 - 25 mg/dL LAB CHEMISTRY METHOD 07/23/2024 11:39 AM [facility] Creatinine 1.42(H) 0.70 - 1.30 mg/dL LAB CHEMISTRY METHOD 07/23/2024 11:39 AM [facility] eGFR 48(L) >=60 mL/min/1. 73m2 LAB CHEMISTRY METHOD 07/23/2024 11:39 AM [facility] Comment:Calculation based on the??Chronic Kidney Disease Epidemiology Collaboration (CKD-EPI) equation refit??without adjustment for race. BUN/Creatinine Ratio 20.4 LAB CHEMISTRY METHOD 07/23/2024 11:39 AM [facility] Calcium 8.7 8.5 - 10.5 mg/dL LAB CHEMISTRY METHOD 07/23/2024 11:39 AM [facility] Blood Venous blood specimen / Unknown Venipuncture / Unknown 07/23/2024 6:05 AM EDT 07/23/2024 10:56 AM EDT us Melecio Ying MD LAB BLOOD ORDERABLES Final Resu lt [facility] [address] [place] [address], * (ABNORMAL) Complete blood count (07/23/2024 6:05 AM EDT) [facility] Signature WBC 12.5(H) 4.8 - 10.8 K/mcL LAB HEMETOLOGY METHOD 07/23/2024 11:14 AM EDT [facility] RBC 2.70(L) 4.50 - 5.50 M/mcL LAB HEMETOLOGY METHOD 07/23/2024 11:14 AM EDT [facility] Hemoglobin 8.0(L) 13.5 - 17.5 g/dL LAB HEMETOLOGY METHOD 07/23/2024 11:14 AM [facility] Hematocrit 24.8(L) 42.0 - 54.0 % LAB HEMETOLOGY METHOD 07/23[facility]24 [facility] MCV 93.2 79.0 - 98.0 FL LAB HEMETOLOGY METHOD 07/23/2024 11[facility] MCH 30.1 27.0 - 32.0 pcg LAB HEMETOLOGY METHOD 07/23/2024 11:14 AM [facility] MCHC 32.3 32.0 - 37.0 g/dL LAB HEMETOLOGY METHOD 07/23/2024 11:14 AM EDT [facility] RDW 14.0 11.0 - 15.0 % LAB HEMETOLOGY METHOD 07/23[facility]2024 11[facility] Platelets 391 130 - 400 K/mcL LAB HEMETOLOGY METHOD 07/23/2024 11:[facility] MPV 9.8 7.0 - 11.0 FL LAB HEMETOLOGY METHOD 07/23/2024 11:14 AM EDT [facility] NRBC 0.0 <1.0 % LAB HEMETOLOGY METHOD 07/23/2024 11:14 AM EDT [facility] NRBC Absolute 0.00 <0.10 K/mcL LAB HEMETOLOGY METHOD 07/23/2024 11:14 AM EDT [facility] Blood Venous blood specimen / Unknown Venipuncture / Unknown 07/23/2024 6:05 AM EDT 07/23/2024 10:56 AM EDT us Melecio Ying MD LAB BLOOD ORDERABLES Final Resu lt [facility] [address] [place] [address], documented in this encounter Visit Diagnoses Diagnosis Acute kidney failure with tubular necrosis (CMS/HCC V24) documented in this encounter Care Teams Disc Jockey Relationship Specialty Start Date End Date Melecio Ying MD [address] [place] [address] PCP - General Internal Medicine 07/15/24 documented as of this encounter
--- OUTSIDE RECORDS SUMMARY | 2024-08-26 12:35 | XMS_ITS | Encounter Summary ---
Author Organization [facility] Address [address] [place] [address] Care Team Providers Care Ingot Supervisor Name Role Phone Melecio Ying MD Primary Care Provider [phone] Encounter Details Date Type Department Care Team (Late st Contact Info) Description 08/01/2024 Lab Requisition [facility] - Main Lab [address] [facility] [place] [address] Melecio Ying MD [address] [place] [phone] Acute kidney failure with tubular necrosis (CMS/HCC [...] mmol/L LAB CHEMISTRY METHOD 08/03/2024 11:18 AM [facility] Potassium 5.0 3.5 - 5.5 mmol/L LAB CHEMISTRY METHOD 08/03/2024 11:18 AM [facility] Chloride 102 96 - 110 mmol/L LAB CHEMISTRY METHOD 08/03/2024 11:18 AM [facility] CO2 23 21 - 32 mmol/L LAB CHEMISTRY METHOD 08/03/2024 11:18 AM [facility] Anion Gap 8 3 - 11 LAB CHEMISTRY METHOD 08/03/2024 11:18 AM [facility] Glucose 112(H) 70 - 100 mg/dL LAB CHEMISTRY METHOD 08/03/2024 11:18 AM [facility] BUN 22 5 - 25 mg/dL LAB CHEMISTRY METHOD 08/03/2024 11:18 AM [facility] Creatinine 1.46(H) 0.70 - 1.30 mg/dL LAB CHEMISTRY METHOD 08/03/2024 11:18 AM [facility] eGFR 46(L) >=60 mL/min/1. 73m2 LAB CHEMISTRY METHOD 08/03/2024 11:18 AM [facility] Comment:Calculation based on the??Chronic Kidney Disease Epidemiology Collaboration (CKD-EPI) equation refit??without adjustment for race. BUN/Creatinine Ratio 15.1 LAB CHEMISTRY METHOD 08/03/2024 11:18 AM [facility] Calcium 8.6 8.5 - 10.5 mg/dL LAB CHEMISTRY METHOD 08/03/2024 11:18 AM [facility] AST (SGOT) 21 10 - 42 unit/L LAB CHEMISTRY METHOD 08/03/2024 11:18 AM [facility] ALT (SGPT) 26 10 - 60 unit/L LAB CHEMISTRY METHOD 08/03/2024 11:18 AM [facility] Alkaline Phosphatase 93 42 - 121 unit/L LAB CHEMISTRY METHOD 08/03/2024 11:18 AM EDT [facility] Total Protein 6.8 6.0 - 8.0 g/dL LAB CHEMISTRY METHOD 08/03/2024 11:18 AM [facility] Albumin 2.4(L) 3.2 - 5.0 g/dL LAB CHEMISTRY METHOD 08/03/2024 11:18 AM T [facility] Total Bilirubin 0.4 0.0 - 1.4 mg/dL LAB CHEMISTRY METHOD 08/03/2024 11:18 AM EDT [facility] Blood Venous blood specimen / Unknown Venipuncture / Unknown 08/03/2024 5:23 AM EDT 08/03/2024 10:19 AM EDT us Melecio Ying MD LAB BLOOD ORDERABLES Final Resu lt [facility] [address] [place] [address], [place] [phone] * (ABNORMAL) Complete blood count (08/03/2024 5:23 AM EDT) WBC 10.2 4.8 - 10.8 K/mcL LAB HEMETOLOGY METHOD 08/03/2024 10:39 AM [facility] RBC 2.70(L) 4.50 - 5.50 M/mcL LAB HEMETOLOGY METHOD 08/03/2024 10:39 AM EDT [facility] Hemoglobin 8.0(L) 13.5 - 17.5 g/dL LAB HEMETOLOGY METHOD 08/03/2024 10:39 AM [facility] Hematocrit 25.6(L) 42.0 - 54.0 % LAB HEMETOLOGY METHOD 08/03/2024 10:39 [facility] MCV 93.4 79.0 - 98.0 FL LAB HEMETOLOGY METHOD 08/03/2024 10:39 AM EDT [facility] MCH 29.2 27.0 - 32.0 pcg LAB HEMETOLOGY METHOD 08/03/2024 10:39 AM EDT [facility] MCHC 31.3(L) 32.0 - 37.0 g/dL LAB HEMETOLOGY METHOD 08/03/2024 10:39 AM EDT [facility] RDW 14.7 11.0 - 15.0 % LAB HEMETOLOGY METHOD 08/03/2024 10:39 AM EDT [facility] Platelets 503(H) 130 - 400 K/mcL LAB HEMETOLOGY METHOD 08/03/2024 10:39 AM EDT [facility] MPV 9.5 7.0 - 11.0 FL LAB HEMETOLOGY METHOD 08/03/2024 10:39 AM EDT [facility] NRBC 0.0 <1.0 % LAB HEMETOLOGY METHOD 08/03/2024 10:39 AM EDT [facility] NRBC Absolute 0.00 <0.10 K/mcL LAB HEMETOLOGY METHOD 08/03/2024 10:39 AM T [facility] Blood Venous blood specimen / Unknown Venipuncture / Unknown 08/03/2024 5:23 AM EDT 08/03/2024 10:19 AM EDT us Melecio Ying MD LAB BLOOD ORDERABLES Final Resu lt [facility] [address] [place] [address], documented in this encounter Visit Diagnoses Diagnosis Acute kidney failure with tubular necrosis (CMS/HCC V24) documented in this encounter Care Teams Ingot Supervisor Relationship Specialty Start Date End Date Melecio Ying MD [address] [place] [address] PCP - General Internal Medicine 07/15/24 documented as of this encounter
--- OUTSIDE RECORDS SUMMARY | 2024-08-26 12:36 | XMS_ITS | Encounter Summary ---
Author Organization [employer] Address [address] [facility] [address] [place] [address] Care Team Providers Care Certified Neurodiagnostic Technologist Name Role Phone Unavailable Primary Care Provider Unavailabl e Encounter Details Date Type Department Care Team (Latest Contact Info) Description 06/22/2019 Abstract [facility] CONVERSIONS Dental, Provider, DDS Social History Tobacco [...]
--- OUTSIDE RECORDS SUMMARY | 2024-08-26 12:36 | XMS_ITS | Encounter Summary ---
Author Organization [facility] Address [address] [place] [address] Care Team Providers Care Funeral Workers Name Role Phone Melecio Ying MD Primary Care Provider [phone] Encounter Details Date Type Department Care Team (Late st Contact Info) Description 07/15/2024 Lab Requisition [facility] - Main Lab [address] [facility] [place] [phone] Melecio Ying MD [address] [place] [phone] Acute kidney failure with tubular necrosis (CMS/HCC [...] mmol/L LAB CHEMISTRY METHOD 07/16/2024 11:[address] [facility] Potassium 4.7 3.5 - 5.5 mmol/L LAB CHEMISTRY METHOD 07/16/2024 11:[address] [facility] Chloride 99 96 - 110 mmol/L LAB CHEMISTRY METHOD 07/16/2024 11:[address] [facility] CO2 24 21 - 32 mmol/L LAB CHEMISTRY METHOD 07/16/2024 11:[address] [facility] Anion Gap 7 3 - 11 LAB CHEMISTRY METHOD 07/16/2024 11:[address] [facility] Glucose 155(H) 70 - 100 mg/dL LAB CHEMISTRY METHOD 07/16/2024 11:[address] [facility] BUN 28(H) 5 - 25 mg/dL LAB CHEMISTRY METHOD 07/16/2024 11:[address] [facility] Creatinine 1.41(H) 0.70 - 1.30 mg/dL LAB CHEMISTRY METHOD 07/16/2024 11:[address] [facility] eGFR 48(L) >=60 mL/min/1. 73m2 LAB CHEMISTRY METHOD 07/16/2024 11:[address] [facility] Comment:Calculation based on the??Chronic Kidney Disease Epidemiology Collaboration (CKD-EPI) equation refit??without adjustment for race. BUN/Creatinine Ratio 19.9 LAB CHEMISTRY METHOD 07/16/2024 11:[address] [facility] Calcium 8.5 8.5 - 10.5 mg/dL LAB CHEMISTRY METHOD 07/16/2024 11:[address] [facility] Blood Venous blood specimen / Unknown Venipuncture / Unknown 07/16/2024 6:24 AM EDT 07/16/2024 9:59 AM EDT us Melecio Ying MD LAB BLOOD ORDERABLES Final Resu lt [facility] [address] [place] [address], * (ABNORMAL) Complete blood count (07/16/2024 6:24 AM EDT) [facility] Signature WBC 8.9 4.8 - 10.8 K/mcL LAB HEMETOLOGY METHOD 07/16/2024 10:19 AM EDT [facility] RBC 2.80(L) 4.50 - 5.50 M/mcL LAB HEMETOLOGY METHOD 07/16/2024 10:19 AM EDT [facility] Hemoglobin 8.3(L) 13.5 - 17.5 g/dL LAB HEMETOLOGY METHOD 07/16/2024 10:19 AM EDT [facility] Hematocrit 26.0(L) 42.0 - 54.0 % LAB HEMETOLOGY METHOD 07/16/2024 10:19 AM EDT [facility] MCV 94.2 79.0 - 98.0 FL LAB HEMETOLOGY METHOD 07/16/2024 10:19 AM EDT [facility] MCH 30.1 27.0 - 32.0 pcg LAB HEMETOLOGY [facility] MCHC 31.9(L) 32.0 - 37.0 g/dL LAB HEMETOLOGY METHOD 07/16/2024 10:19 AM EDT [facility] RDW 14.1 11.0 - 15.0 % LAB HEMETOLOGY METHOD 07/16/2024 10:19 AM EDT [facility] Platelets 333 130 - 400 K/mcL LAB HEMETOLOGY METHOD 07/16/2024 10:19 AM EDT [facility] MPV 9.7 7.0 - 11.0 FL LAB HEMETOLOGY METHOD 07/16/2024 10:19 AM EDT [facility] NRBC 0.0 <1.0 % LAB HEMETOLOGY METHOD 07/16/2024 10:19 AM EDT [facility] NRBC Absolute 0.00 <0.10 K/mcL LAB HEMETOLOGY METHOD 07/16/2024 10:19 AM EDT [facility] Blood Venous blood specimen / Unknown Venipuncture / Unknown 07/16/2024 6:24 AM EDT 07/16/2024 9:59 AM EDT us Melecio Ying MD LAB BLOOD ORDERABLES Final Resu lt [facility] [address] [place] [address], documented in this encounter Visit Diagnoses Diagnosis Acute kidney failure with tubular necrosis (CMS/HCC V24) documented in this encounter Care Teams Funeral Workers Relationship Specialty Start Date End Date Melecio Ying MD [address] [place] [phone] PCP - General Internal Medicine 07/15/24 documented as of this encounter
--- OUTSIDE RECORDS SUMMARY | 2024-08-26 12:36 | XMS_ITS | Clinical Summary ---
Author Organization [employer] Address [address] [facility] [address] [place] [address] Care Team Providers Care Hotel Front Desk Agent Name Role Phone Unavailable Primary Care Provider [...] topic Meningococcal Vaccine Aged Out No ines tehodora eligible based on patient's age to complete this topic RSV under 20 months Aged Out No longe r eligible based on patient's age to complete this topic Rotavirus Vaccines Aged Out No longer eligible based on patient's age to complete this topic
== END 2024-08-26 11:08 | disposition home or self-care (01) ==
LOC: HO.HVNA 11:07
PROVIDERS: Visit Provider Internal Medicine
DX: N39.0 Urinary tract infection, site not specified (principal); E87.6 Hypokalemia; Z13.1 Encounter for screening for diabetes mellitus
CPT/HCPCS: 36415; 80048; 82043; 82570; 83036; 85025

== ENCOUNTER 2024-09-15 12:39 | Outpatient (AMB) | payer MEDICARE, OTHER, SELFPAY ==
--- OUTSIDE RECORDS SUMMARY | 2024-09-15 12:41 | XMS_ITS | Encounter Summary ---
Author Organization [facility] Address [address] [place] [address] Care Team Providers Care Narrow Gauge Brakeman Name Role Phone Melecio Ying MD Primary Care Provider [phone] Encounter Details Date Type Department Care Team (Late st Contact Info) Description 08/19/2024 Lab Requisition [facility] - Main Lab [address] [facility] [place] [address] Melecio Ying MD [address] [place] [phone] Acute kidney failure with tubular necrosis (CMS/HCC [...] V24) documented in this encounter Care Teams Narrow Gauge Brakeman Relationship Specialty Start Date End Date Melecio Ying MD [address] [place] [address] PCP - General Internal Medicine 07/15/24 documented as of this encounter
[2024-09-15 12:50] VITALS: BP 120/72; PULSE 87; BMI 22.1
--- NOTE | 2024-09-15 12:50 | A.OFFVIS_ITS ---
Vital Signs 09/15/24 12:50 Height 5 ft 10 in Weight 154 lb 5.177 oz BMI 22.1 BP 120/72 Blood Pressure Location Lt brachial Position Sitting Pulse 87 Intake Visit Reasons: 6 mth w/ ekg Intake Note: 6 month follow-up with ekg c/o fatigue Charge Attendant Required: No Director Of Residence Life: Director Of Residence Life Present Accompanied by: grandsanna Allergies No Known Allergies [No Known Allergies*] Allergy (Verified 09/15/24 19:38) Medication List - Last Reviewed 09/15/24 by UDAY Chi acetaminophen 1,000 mg PO BID PRN amiodarone 200 mg PO DAILY 90 days amoxicillin 500 mg PO BID atorvastatin 40 mg PO BEDTIME blood sugar diagnostic (FreeStyle Lite Strips) to check blood sugars once a day blood-glucose meter (FreeStyle Lite Meter kit) USE DIRECTED blood-glucose meter (Accu-Chek Guide Glucose Meter) As directed cyanocobalamin (vitamin B-12) (Vitamin B-12) 1,000 mcg PO DAILY ferrous sulfate 324 mg PO DAILY finasteride 5 mg PO DAILY 90 days furosemide 20 mg PO DAILY glipizide 2.5 mg PO DAILY magnesium oxide 400 mg PO DAILY metformin ER 1,000 mg PO BID methenamine hippurate 1 g PO DAILY 90 days mirtazapine (Remeron) 15 mg PO BEDTIME silver nitrate applicators 75-25 % 1 appl topical DAILY solifenacin (Vesicare) 5 mg PO DAILY 30 days spironolactone 25 mg See Protocol PO DAILY tamsulosin 0.4 mg PO DAILY 90 days HPI Comments Details: Patient comes for follow-up. He is here with his grandson. He has had multiple recent hospitalization. There is confusion about his medications. Kimmy says there has been lot of changes in his medications after recent hospitalization after [facility] at [facility]. We tried to get a copy of his medications from [facility] although not sure if he is getting all her medications. Currently not on any diuretics. However seems to be on amiodarone low-dose Eliquis. Comes with symptoms of fatigue. Denies any leg edema, orthopnea, PND. However complains of exertional shortness of breath. Comes in a wheelchair. No lightheadedness, syncope. [facility] Medical History (Updated 09/20/24 @ 16:10 by Yosef Cuello MD) PAF (paroxysmal atrial fibrillation) Anemia B12 deficiency BPH (benign prostatic hyperplasia) EtOH dependence HFrEF (heart failure with reduced ejection fraction) Hematuria Abdominal pain Sepsis Urinary tract infection associated with cystostomy catheter CAD (coronary artery disease) Acute exacerbation of CHF (congestive heart failure) Hyperlipidemia Alcohol abuse Diabetes mellitus Hypertension Surgical History History of cardiac cath History of hernia repair Family History Father Liver problem Mother Past heart attack Brother Cancer Sister Cancer Social History Household Members: Family Housing: House Do you presently have visiting nurse or other home services: Yes ([facility]) Unable to assess alcohol history related to: Unknown Alcohol intake: former Patient Tobacco Use Status: Former Tobacco user Tobacco use type: Cigarette (quit 57 years ago) e-Cigarette/Vaping Use: Never Used Second Hand Smoke Exposure: No service: Yes Current occupational status: retired Current occupation: retired [employer] Current occupational exposures/hazards: No Cognitive needs: No Hearing needs: No Vision needs: Yes (reading glasses) Review of Systems Const Denies chills, Denies fatigue, Denies fever(s), Denies frequent falls, Denies weakness, Denies weight gain and Denies weight loss ENT Denies dizziness Card Denies chest pain, Denies leg edema, Denies lightheadedness, Denies palpitations, Denies dyspnea, Denies dyspnea on exertion, Denies orthopnea and Denies other (loss of consciousness) Resp Denies cough, Denies dyspnea and Denies dyspnea on exertion GI Denies hematochezia and Denies change in stool character Musc Denies abnormal gait, Denies muscle weakness, Denies numbness, Denies radiating pain into limb and Denies tingling Neuro Denies abnormal gait, Denies dizziness, Denies frequent falls, Denies numbness, Denies tingling and Denies weakness Endo Denies fatigue and Denies palpitations Physical Exam Vital Signs: Last Vital Signs Pulse 87 09/15/24 12:50 BP 120/72 09/15/24 12:50 BMI result Body Mass Index 22.1 Const General: cooperative, healthy appearing, comfortable and no acute distress Nutritional Appearance: other (Frail elderly man) Orientation/consciousness: patient oriented x3 Limitations: ambulation with walker Neck Neck: Yes normal visual inspection and Yes no JVD Resp Effort & Inspection: normal respiratory effort Auscultation: clear to auscultation bilaterally, no crackles, no rales, no rhonchi, no wheezes and breath sounds absent on the right Percussion: dullness Mid: right and Lower: right Cardio Jugular venous distension: no JVD Palpation: abnormal PMI displaced PMI Rate: regular rate Rhythm: regular rhythm Heart sounds: S1 normal heart sound present, S2 normal heart sound present, no murmurs and no rubs Neuro General: patient oriented x3 Extrem Other: right radial pulse easily palpable, right hand assessment normal. General: Yes normal to inspection, No no pedal edema and No calf tenderness Psych Appearance: grossly normal Mental Status: mental status grossly normal Speech and movement: Normal speech and movement present Assessment & Plan Assessment & Plan (1) PAF (paroxysmal atrial fibrillation): Code(s): I48.0 - Paroxysmal atrial fibrillation Category: Medical Plan: Paroxysmal atrial fibrillation suppressed on amiodarone therapy. Continue rhythm control approach. Currently on low-dose oral anticoagulation Eliquis as per the chart. Continue the same. His right lung sounds very dim and high likelihood of underlying pleural effusion. Advise further workup and follow up with primary care physician. (2) Chronic HFrEF (heart failure with reduced ejection fraction): Code(s): I50.22 - Chronic systolic (congestive) heart failure Category: Medical Plan: Heart failure with reduced ejection fraction, currently does not seem to be on any diuretic regimen. Clinically appears to be euvolemic well compensated. Continue monitor for signs and symptoms of heart failure. Much limitations to neurohormonal modulation due to his low blood pressure. Currently not on any. Continue rhythm control approach. Overall prognosis guarded. Will follow up in 6 months time, sooner p.r.n.. Thank you for allowing me to partake in his care Medications: On Hold glipizide Hold Comment: blood sugars have been controlled without glipizide 2.5 mg PO DAILY methenamine hippurate Hold Comment: hold until complete course of antibiotics 1 g PO DAILY 90 days 90 tabs 1RF N39.0 - Urinary tract infection, site not specified Coding Level of Care Code Est Pt Level 4 (65954) Complex EM visit Add On G2211 Diagnoses PAF (paroxysmal atrial fibrillation) I48.0 Chronic HFrEF (heart failure with reduced ejection fraction) I50.22
== END 2024-09-15 13:39 | disposition home or self-care (01) ==
LOC: HO.HCS 12:39
PROVIDERS: PCP Internal Medicine; Visit Provider Internal Medicine Cardiovascular Disease
DX: I48.0 Paroxysmal atrial fibrillation (principal); I50.22 Chronic systolic (congestive) heart failure
CPT/HCPCS: 99214; G2211

== ENCOUNTER → 2024-09-15 12:39 | Outpatient (BNVA) | payer MEDICARE, OTHER, SELFPAY | PROVIDERS: PCP Internal Medicine; Visit Provider Internal Medicine Cardiovascular Disease | DX: I48.0 Paroxysmal atrial fibrillation (principal); I50.22 Chronic systolic (congestive) heart failure | CPT/HCPCS: 99212 ==

== ENCOUNTER 2024-09-15 19:16 | Inpatient (IN) | payer OTHER, SELFPAY ==
--- NOTE | ~2024-09-15 | XR_ITS ---
CLINICAL HISTORY: weakness Exam: AP portable chest x-ray. Comparison: July 10, 2024. Findings: Interval development of a large right pleural effusion. There is dense opacity of the right mid lung and right lung base with obscuration of the right heart border and right hemidiaphragm. No infiltrates within the left lung. No pneumothorax. Impression: Large right pleural effusion with dense consolidation of the right mid lung and right lung base. This document has been electronically signed by: Jonathan Briones MD on 09/15/2024 20:30:00
--- NOTE | ~2024-09-15 | CT_ITS ---
CLINICAL HISTORY: Right pleural effusion CT chest with contrast Comparison: CR/ME - XR CHEST 1V - 09/15/24 19:[address]/SR - CT CHEST WO IV CON - 07/02/23 18:08 EDT Findings: Heart is mildly enlarged. Coronary artery calcifications are present. The visualized thyroid and mediastinum are unremarkable. There is a complex large right pleural effusion with mixed heterogeneity. This may represent loculations or hemorrhage or complex fluid. Total collapse of the right middle and right lower lobes. Bilateral calcified pleural plaques are present. Partially visualized large left renal cyst. Multilevel degenerative changes of the thoracic spine. IMPRESSION: 1. Large complex right pleural effusion. This may represent loculations or hemorrhage or complex fluid within the pleural effusion. Complete collapse of the right middle and right lower lobes. This document has been electronically signed by: Chintan Lemons MD on 09/16/2024 02:51:24
--- NOTE | 2024-09-15 19:30 | ED_ITS ---
HPI - General Adult General Chief complaint: General Medical Stated complaint: AMS,WEAKNESS Time Seen by Provider: 09/15/24 19:30 History of Present Illness ED Provider: Ranjit ZUÑIGA narrative: The patient is an 89-year-old male with a history of an ischemic cardiomyopathy. Also a history of alcoholism. He also has a suprapubic catheter. He was last hospitalized at this hospital in June. At that time he has been admitted for an acute kidney injury, hypomagnesemia, and hyponatremia. At discharge the patient went to the [facility] for a month. He has now been home for about a month. He apparently lives with his son and his grandson. His family called 911 today because they feel he is has not been doing well for about a week. The son tells me the patient has been confused. He has not been eating. The son is concerned about the patient not doing well and called 911. There has been no reported fever. No report of vomiting. The patient has been on antibiotics for a possible UTI but the son was not able to tell me when he last finished a course of antibiotics. On August 24 he had a urine culture that grew greater than 100,000 colonies of E coli. I believe the patient took a course of antibiotics after that. The patient himself offers no complaints. He denies headache, chest pain, abdominal pain, nausea, vomiting. He says that he has not been drinking alcohol since he was last hospitalized. Related Data Home Medications ?Medication ?Instructions ?Recorded ?Confirmed acetaminophen 500 mg tablet 1,000 mg PO BID PRN Pain 11/16/23 09/15/24 furosemide 20 mg tablet 20 mg PO DAILY >90 SBP 07/10/24 09/15/24 metformin 500 mg tablet,extended 1,000 mg PO BID 07/10/24 09/15/24 release 24 hr glipizide 2.5 mg tablet 2.5 mg PO DAILY 09/15/24 mirtazapine 15 mg tablet (Remeron) 15 mg PO BEDTIME 09/15/24 Previous Rx's ?Medication ?Instructions ?Recorded blood-glucose meter (Accu-Chek #1 ea 05/24/22 Guide Glucose Meter) blood-glucose meter (FreeStyle #1 ea 06/09/22 Lite Meter kit) amiodarone 200 mg tablet 200 mg PO DAILY 90 days #90 tabs 01/15/24 blood sugar diagnostic (FreeStyle #100 ea 02/11/24 Lite Strips) spironolactone 25 mg tablet 25 mg PO DAILY #90 tabs 02/11/24 atorvastatin 40 mg tablet 40 mg PO BEDTIME #90 tabs 02/17/24 finasteride 5 mg tablet 5 mg PO DAILY 90 days #90 tabs 03/02/24 tamsulosin 0.4 mg capsule 0.4 mg PO DAILY 90 days #90 caps 03/02/24 solifenacin 5 mg tablet (Vesicare) 5 mg PO DAILY 30 days #30 tabs 03/31/24 methenamine hippurate 1 gram tablet 1 g PO DAILY 90 days #90 tabs 05/01/24 amoxicillin 500 mg capsule 500 mg PO BID #10 caps 07/14/24 cyanocobalamin (vitamin B-12) 1,000 mcg PO DAILY #90 tabs 07/14/24 1,000 mcg tablet (Vitamin B-12) ferrous sulfate 324 mg (65 mg 324 mg PO DAILY #90 tabs 07/14/24 iron) tablet,delayed release magnesium oxide 400 mg PO DAILY #90 tabs 07/14/24 silver nitrate applicators 75 %-25 1 appl topical DAILY #30 ea 07/14/25 % topical stick Allergies Allergy/AdvReac Type Severity Reaction Status Date / Time No Known Allergies Allergy Verified 09/15/24 19:38 [No Known Allergies*] Review of Systems 2 Review of Systems: Yes all other systems are reviewed and are negative [facility] Past Medical History Medical History (Updated 09/15/24 @ 23:41 by Carter Church MD) Anemia B12 deficiency BPH (benign prostatic hyperplasia) EtOH dependence PAF (paroxysmal atrial fibrillation) HFrEF (heart failure with reduced ejection fraction) Hematuria Abdominal pain Sepsis Urinary tract infection associated with cystostomy catheter CAD (coronary artery disease) Acute exacerbation of CHF (congestive heart failure) Hyperlipidemia Alcohol abuse Diabetes mellitus Hypertension Surgical History History of cardiac cath History of hernia repair Family History Family History Father Liver problem Mother Past heart attack Brother Cancer Sister Cancer Social History Social History Household Members: Family and Children Housing: House Do you presently have visiting nurse or other home services: Yes ([facility] & Grandson helps with care.) Unable to assess alcohol history related to: Unknown Alcohol intake: former Patient Tobacco Use Status: Former Tobacco user Tobacco use type: Cigarette (quit 57 years ago) e-Cigarette/Vaping Use: Never Used Second Hand Smoke Exposure: No Advance Directives: No Advance Directives Information Provided: No Do you have a plan to hurt others: No Plan service: Yes Current occupational status: retired Current occupation: retired [employer] Current occupational exposures/hazards: No Cognitive needs: No Hearing needs: No Vision needs: Yes (reading glasses) Physical Exam ED Vital Signs: Vital Signs - 24 hr 09/15/24 19:31 09/15/24 22:28 Temperature 97.4 F 97.7 F Pulse Rate 88 81 Respiratory Rate 14 20 Blood Pressure 105/55 L 117/60 Pulse Oximetry 95 96 Oxygen Delivery Method Room Air Room Air BMI result Body Mass Index 22.8 Const Other: The patient is a frail looking 89-year-old. He is awake and alert. He looks weak and frail. His mental status is fairly clear. He is able to tell me that he has at [facility]. He does not seem in obvious acute distress. HENMT Other: Face is symmetrical. Mucous membranes slightly dry. Eyes General: appearance normal, both eyes and all related structures Neck Other: Neck is unremarkable. No obvious JVD. Resp Other: Diminished air entry at the right base. Left lung sounds are fairly clear. Cardio Rate: regular rate Rhythm: regular rhythm Heart sounds: S1 normal heart sound present and S2 normal heart sound present GI Other: The abdomen is soft and nontender. There is a suprapubic catheter in the suprapubic region of the abdomen. Skin Other: Skin is pale and dry. Neuro Other: The patient is awake and alert. He seems diffusely weak. He is reasonably well oriented and is able to tell me that he has at [facility] and that he had come here from home. He does not seem frankly confused. Cranial nerves are grossly intact. He moves his extremities symmetrically. No obvious focal neurological deficit. Extrem Other: No pitting edema of the lower legs. No calf swelling or tenderness or asymmetry. Medications Administered Discontinued Medications Generic Name Dose Route Start Last Admin Trade Name Evelio PRN Reason Stop Dose Admin Ceftriaxone Sodium 1 gm 09/15/24 21:38 09/15/24 22:54 Ceftriaxone Sodium 1 Gm Vial IVPUSH 09/15/24 21:39 1 gm ONCE ONE Administration Medical Decision Making Medical Decision Making [facility] Narrative: The patient is an 89-year-old male with a history of multiple medical problems including significant congestive heart failure with a poor ejection fraction. He has a history of paroxysmal atrial fibrillation and is anticoagulated on apixaban. He also has a history of a suprapubic catheter. His family called 911 because they feel that he has been considerably weaker over the last few days and is eating very poorly. No report of fever. On exam here the patient did not seem overtly toxic and he denied any specific complaints. He denied headache, chest pain, abdominal pain, nausea, vomiting, shortness of breath. His workup reveals a new fairly large right-sided pleural effusion. Additionally he is anemic with a hemoglobin of 7.3. This is not a significant drop from his hemoglobin 3 weeks ago on August 26 when his hemoglobin was 7.4 so I do not think he is having any active ongoing bleeding. However these numbers are a change from his hemoglobin when he was in the hospital in June, 2 months ago. At that point his hemoglobin was 9.2. He has not had a fever and does not have a fever here in the emergency room. Has a mild elevation of his white count. He has a somewhat elevated CRP. Whether he has an acute infection is not clear. His urinalysis is abnormal and potentially consistent with a UTI but he has a chronic indwelling suprapubic catheter and it is difficult to say whether today's urinalysis represents an acute infection or whether this is simply his usual urinalysis. He has had 2 urine cultures positive for E coli in the last few months. Perhaps he is colonized. His lactate is normal at 0.9 in his vital signs are stable so I do not think he is septic. Nevertheless he will be covered with IV ceftriaxone. My overall impression is that the patient has doing somewhat poorly at home. He is significantly anemic and may require a blood transfusion. He has a large pleural effusion that I think may need to be tapped. We will get a CT to better characterize the effusion. I have recommended that he be hospitalized for further investigations of these problems and additional care. Lab Data 09/15/24 20:47 09/15/24 20:47 Labs: Lab Results 09/15/24 09/15/24 09/15/24 Range/Units 20:47 20:54 21:16 WBC 12.8 H (4.8-10.8) X10*3/uL RBC 2.65 L (4.60-5.80) X10*6/uL Hgb 7.3 L (14.0-18.0) g/dl Hct 23.1 L (42.0-52.0) % MCV 87.2 (80.0-98.0) fL MCH 27.5 (27.0-33.0) pg MCHC 31.6 (31.0-36.0) g/dl RDW 15.5 (11.0-16.0) % Plt Count 442 H (160-400) X10*3/uL MPV 8.6 L (9.4-12.4) fL Immature Gran % (Auto) 0.7 H (0.0-0.4) % Neut % (Auto) 84.8 H (45-73) % Lymph % (Auto) 5.6 L (20-40) % [place] % (Auto) 7.8 (2-11) % Eos % (Auto) 0.9 (0-4) % Baso % (Auto) 0.2 (0-2) % Lymph # (Auto) 0.7 L (1.2-4.9) X10*3/uL [place] # (Auto) 1.0 (0.1-1.2) X10*3/uL Eos # (Auto) 0.1 (0.0-0.4) X10*3/uL Baso # (Auto) 0.0 (0.0-0.2) X10*3/uL Abs Immat Gran (auto) 0.09 H (0.00-0.03) X10*3/uL Absolute Neuts (auto) 10.8 H (2.0-8.3) x10*3/uL Absolute Nucleated RBC 0.000 (0.0-0.012) X10*3/uL Nucleated RBC % (auto) 0.0 (0.0-0.2) /100WBC PT 17.7 H (10.9-12.4) SEC INR 1.5 H (0.9-1.1) VBG pH 7.44 H (7.32-7.43) VBG pCO2 36 mmHg VBG pO2 61 mmHg VBG HCO3 25 (22-26) mmol/L VBG O2 Saturation 83.0 % VBG Base Excess 1.4 mmol/L Sodium 133 L (135-145) mmol/L Potassium 4.6 (3.3-5.1) mmol/L Chloride 103 (96-108) mmol/L Carbon Dioxide 22 (22-29) mmol/L Anion Gap 13 (12-20) BUN 21 H (9-16) mg/dL Creatinine 1.31 (0.5-1.4) mg/dL Estim Creat Clear Calc 42.0 Estimated GFR 52 Random Glucose 156 H (60-115) mg/dL Lactic Acid (0.5-2.0) mmol/L Calcium 8.8 (8.4-10.2) mg/dL Magnesium 2.0 (1.6-2.6) mg/dL Total Bilirubin 0.5 (0.0-1.0) mg/dL Direct Bilirubin 0.2 (0.0-0.5) mg/dL AST 29 (5-37) U/L ALT 9 (0-40) U/L Alkaline Phosphatase 80 (39-117) U/L Troponin I High Sens < 2.7 (<3.5-35.0) ng/L C-Reactive Protein 9.85 H (< or = 0.50) mg/dL B-Natriuretic Peptide 336 H (<100) pg/mL Total Protein 7.4 (6.5-8.0) g/dL Albumin 3.1 L (3.5-5.0) g/dL Lipase 26 (8-78) U/L Urine Color Urine Appearance Urine pH (5.0-9.0) Ur Specific [place] (1.005-1.025) Urine Protein (Neg-Trace) mg/dL Urine Glucose (UA) (Negative) mg/dL Urine Ketones (Negative) mg/dL Urine Blood (Negative) Urine Nitrite (Negative) Ur Leukocyte Esterase (Negative) Urine RBC (0-2) /HPF Urine WBC (0-5) /HPF Ur Squamous Epith Cells (0-2) /HPF Urine Bacteria (None Seen) Hyaline Casts (0-2) /LPF Urine Yeast Ethyl Alcohol < 10 mg/dL Influenza Type A (PCR) NEGATIVE (Negative) Influenza Type B (PCR) NEGATIVE (Negative) RSV RNA Qual (PCR) NEGATIVE (Negative) SARS-CoV-2 RNA (RT-PCR) NEGATIVE (Negative) 09/15/24 09/15/24 Range/Units 21:57 22:18 WBC (4.8-10.8) X10*3/uL RBC (4.60-5.80) X10*6/uL Hgb (14.0-18.0) g/dl Hct (42.0-52.0) % MCV (80.0-98.0) fL MCH (27.0-33.0) pg MCHC (31.0-36.0) g/dl RDW (11.0-16.0) % Plt Count (160-400) X10*3/uL MPV (9.4-12.4) fL Immature Gran % (Auto) (0.0-0.4) % Neut % (Auto) (45-73) % Lymph % (Auto) (20-40) % [place] % (Auto) (2-11) % Eos % (Auto) (0-4) % Baso % (Auto) (0-2) % Lymph # (Auto) (1.2-4.9) X10*3/uL [place] # (Auto) (0.1-1.2) X10*3/uL Eos # (Auto) (0.0-0.4) X10*3/uL Baso # (Auto) (0.0-0.2) X10*3/uL Abs Immat Gran (auto) (0.00-0.03) X10*3/uL Absolute Neuts (auto) (2.0-8.3) x10*3/uL Absolute Nucleated RBC (0.0-0.012) X10*3/uL Nucleated RBC % (auto) (0.0-0.2) /100WBC PT (10.9-12.4) SEC INR (0.9-1.1) VBG pH (7.32-7.43) VBG pCO2 mmHg VBG pO2 mmHg VBG HCO3 (22-26) mmol/L VBG O2 Saturation % VBG Base Excess mmol/L Sodium (135-145) mmol/L Potassium (3.3-5.1) mmol/L Chloride (96-108) mmol/L Carbon Dioxide (22-29) mmol/L Anion Gap (12-20) BUN (9-16) mg/dL Creatinine (0.5-1.4) mg/dL Estim Creat Clear Calc Estimated GFR Random Glucose (60-115) mg/dL Lactic Acid 0.9 (0.5-2.0) mmol/L Calcium (8.4-10.2) mg/dL Magnesium (1.6-2.6) mg/dL Total Bilirubin (0.0-1.0) mg/dL Direct Bilirubin (0.0-0.5) mg/dL AST (5-37) U/L ALT (0-40) U/L Alkaline Phosphatase (39-117) U/L Troponin I High Sens (<3.5-35.0) ng/L C-Reactive Protein (< or = 0.50) mg/dL B-Natriuretic Peptide (<100) pg/mL Total Protein (6.5-8.0) g/dL Albumin (3.5-5.0) g/dL Lipase (8-78) U/L Urine Color Dark Yellow Urine Appearance Cloudy Urine pH 5.5 (5.0-9.0) Ur Specific [place] 1.025 (1.005-1.025) Urine Protein 100 (2+) H (Neg-Trace) mg/dL Urine Glucose (UA) Negative (Negative) mg/dL Urine Ketones Trace (Negative) mg/dL Urine Blood Moderate (2+) H (Negative) Urine Nitrite Positive H (Negative) Ur Leukocyte Esterase Large (3+) H (Negative) Urine RBC >20 H (0-2) /HPF Urine WBC >50 H (0-5) /HPF Ur Squamous Epith Cells 0-2 (0-2) /HPF Urine Bacteria 4+ (None Seen) Hyaline Casts 6-10 (0-2) /LPF Urine Yeast Present Ethyl Alcohol mg/dL Influenza Type A (PCR) (Negative) Influenza Type B (PCR) (Negative) RSV RNA Qual (PCR) (Negative) SARS-CoV-2 RNA (RT-PCR) (Negative) Independent Interpretation I performed an independent interpretation of an: EKG Interpretation: EKG at 2058 shows normal sinus rhythm at 79 beats per minute. There is a left axis deviation. There is a nonspecific intraventricular conduction block, nonspecific T-wave abnormality. No remarkable change from previous. Critical Care Time Critical Care Time Critical Care Time: Yes Total Critical Care Time: 35 Attestation: The patient was critically ill with a high probability of imminent or life- threatening deterioration. ?I spent greater than 30 minutes of discontinuous time evaluating the patient, delivering critical care at the bedside, discussing evaluating data with consultants. ?Critical care time does not include time spent performing separately billable procedures or teaching. ?Time spent performing critical care with 35 minutes. Discharge Plan Discharge Patient Disposition: Admitted As Inpatient Prescriptions: No Action (DME) blood-glucose meter [Accu-Chek Guide Glucose Meter] Misc See Rx Instructions .Route Qty: 1 0RF Rx Instructions: As directed (DME) blood-glucose meter [FreeStyle Lite Meter] Kit See Rx Instructions .ROUTE .COMPLEX Qty: 1 0RF Dose Instruction: USE DIRECTED Rx Instructions: USE DIRECTED amiodarone 200 mg tablet 200 mg PO DAILY 90 Days Qty: 90 3RF (DME) FreeStyle Lite Strips Strip See Rx Instructions .Route Qty: 100 8RF Rx Instructions: to check blood sugars once a day spironolactone 25 mg tablet 25 mg PO DAILY Qty: 90 1RF Protocol: Hold for SBP< HOLD for SBP < : 90 atorvastatin 40 mg tablet 40 mg PO BEDTIME Qty: 90 3RF finasteride 5 mg tablet 5 mg PO DAILY 90 Days Qty: 90 1RF tamsulosin 0.4 mg capsule 0.4 mg PO DAILY 90 Days Qty: 90 0RF solifenacin [Vesicare] 5 mg tablet 5 mg PO DAILY 30 Days Qty: 30 1RF furosemide 20 mg tablet 20 mg PO DAILY metformin 500 mg Tablet Extended Release 24 Hr 1,000 mg PO BID silver nitrate applicators 75-25 % Stick 1 appl topical DAILY Qty: 30 0RF ferrous sulfate 324 mg (65 mg iron) Tablet,Delayed Release (Dr/Ec) 324 mg PO DAILY Qty: 90 0RF amoxicillin 500 mg capsule 500 mg PO BID Qty: 10 0RF cyanocobalamin (vitamin B-12) [Vitamin B-12] 1,000 mcg Tablet 1,000 mcg PO DAILY Qty: 90 0RF magnesium oxide 400 mg magnesium tablet 400 mg PO DAILY Qty: 90 0RF acetaminophen 500 mg Tablet 1,000 mg PO BID PRN (Reason: Pain) mirtazapine [Remeron] 15 mg tablet 15 mg PO BEDTIME glipizide 2.5 mg tablet 2.5 mg PO DAILY methenamine hippurate 1 gram tablet 1 g PO DAILY 90 Days Qty: 90 1RF Print Language: Sudanese
[2024-09-15 19:31] VITALS: BP 105/55; BP 128/68; PULSE 88; PULSE 92; RESP 14; TEMP 36.3; O2SAT 93; O2SAT 95; BMI 22.8
--- NOTE | 2024-09-15 19:45 | ECG_ITS ---
Test Reason : CHF Blood Pressure : */* mmHG Vent. Rate : 79 BPM Atrial Rate : 79 BPM P-R Int : 186 ms QRS Dur : 132 ms QT Int : 410 ms P-R-T Axes : 26 -35 98 degrees QTcB Int : 470 ms Normal sinus rhythm Left axis deviation Non-specific intra-ventricular conduction block Nonspecific T wave abnormality Abnormal ECG When compared with ECG of 10-Jul-2024 08:44, Minimal criteria for Septal infarct are no longer Present Referred By: Carter Church Electronically Signed By: BRITTANY PARKER MD
[2024-09-15 20:52] LABS: MANUAL DIFF FLAG NO
[2024-09-15 20:55] LABS: Basophils Percent Auto 0.2 % (0-2); Eosinophils Absolute Auto 0.1 X10*3/uL (0.0-0.4); Eosinophils Percent Auto 0.9 % (0-4); Hematocrit 23.1 % (42.0-52.0); Hemoglobin 7.3 g/dl (14.0-18.0); Imm Gran Abs Auto 0.09 X10*3/uL (0.00-0.03); Imm Gran Pct Auto 0.7 % (0.0-0.4); Lymphocytes Absolute Auto 0.7 X10*3/uL (1.2-4.9); Lymphocytes Percent Auto 5.6 % (20-40); Mean Corpuscular HGB Conc 31.6 g/dl (31.0-36.0); Mean Corpuscular Hemoglobin 27.5 pg (27.0-33.0); Mean Corpuscular Volume 87.2 fL (80.0-98.0); Mean Platelet Volume 8.6 fL (9.4-12.4); Monocytes Percent Auto 7.8 % (2-11); Neutrophils Absolute Auto 10.8 x10*3/uL (2.0-8.3); Neutrophils Percent Auto 84.8 % (45-73); Platelet Count 442 X10*3/uL (160-400); Red Blood Count 2.65 X10*6/uL (4.60-5.80); Red Cell Distribution Width 15.5 % (11.0-16.0); White Blood Count 12.8 X10*3/uL (4.8-10.8)
[2024-09-15 20:59] LABS: VBG Base Excess 1.4 mmol/L; VBG HCO3 25 mmol/L (22-26); VBG pCO2 36 mmHg; VBG pH 7.44 (7.32-7.43); VBG pO2 61 mmHg
[2024-09-15 21:00] LABS: INTERNATIONAL NORM RATIO 1.5 (0.9-1.1); Prothrombin Time 17.7 SEC (10.9-12.4)
[2024-09-15 21:14] LABS: Alanine Aminotransferase 9 U/L (0-40); Albumin Level 3.1 g/dL (3.5-5.0); Alkaline Phosphatase 80 U/L (39-117); Anion Gap 13 (12-20); Aspartate Amino Transferase 29 U/L (5-37); B Type Natriuretic Peptide 336 pg/mL (<100); Bilirubin Direct 0.2 mg/dL (0.0-0.5); Bilirubin Total 0.5 mg/dL (0.0-1.0); Blood Urea Nitrogen 21 mg/dL (9-16); C Reactive Protein 9.85 mg/dL (< or = 0.50); Calcium 8.8 mg/dL (8.4-10.2); Carbon Dioxide 22 mmol/L (22-29); Chloride 103 mmol/L (96-108); Estimated Glomerular Filt Rate 52; Ethanol < 10 mg/dL; Glucose Random 156 mg/dL (60-115); Lipase 26 U/L (8-78); Potassium 4.6 mmol/L (3.3-5.1); Sodium 133 mmol/L (135-145); Total Protein 7.4 g/dL (6.5-8.0)
[2024-09-15 21:18] LABS: Troponin-I High Sensitivity < 2.7 ng/L (<3.5-35.0)
[2024-09-15 21:21] LABS: Venous Blood Gas Refer to POC result
[2024-09-15 22:00] LABS: Influenza A PCR NEGATIVE (Negative); Influenza B PCR NEGATIVE (Negative); Resp Syncy Virus RNA Qual PCR NEGATIVE (Negative); SARS COV2 PCR INHOUSE NEGATIVE (Negative)
[2024-09-15 22:10] LABS: Appearance Urine Cloudy; Color Urine Dark Yellow; Glucose Urine UA Negative (Negative); Leukocyte Esterase Urine Large (3+) (Negative); Nitrite Urine Positive (Negative); PH 5.5 (5.0-9.0); Specific Gravity - Urine 1.025 (1.005-1.025); UMIC TRIGGER UACC YES; Urine Blood Moderate (2+) (Negative); Urine Ketones Trace mg/dL (Negative); Urine Protein 100 (2+) mg/dL (Neg-Trace)
[2024-09-15 22:28] VITALS: BP 117/60; PULSE 81; RESP 20; TEMP 36.5; O2SAT 96
[2024-09-15 22:40] LABS: Lactic Acid 0.9 mmol/L (0.5-2.0)
[2024-09-15 22:42] LABS: Bacteria Urine 4+ (None Seen); RBC Urine >20 /HPF (0-2); Squamous Epithelial Cell Urine 0-2 /HPF (0-2); UACC Culture Trigger YES; WBC Urine >50 /HPF (0-5)
[2024-09-15] MEDS: cefTRIAXone sodium 1 GM VIAL IVPUSH (22:54)
[2024-09-16] VITALS (10 sets, daily range): BP systolic 90–123; BP diastolic 43–67; PULSE 80–90; RESP 12–20; TEMP 36.1–36.7; O2SAT 93–98; BMI 21.7
--- NOTE | 2024-09-16 | ED_ITS ---
HPI - General Adult General Chief complaint: General Medical Stated complaint: AMS,WEAKNESS Time Seen by Provider: 09/15/24 19:30 Related Data Home Medications ?Medication ?Instructions ?Recorded ?Confirmed acetaminophen 500 mg tablet 1,000 mg PO BID PRN Pain 11/16/23 09/15/24 furosemide 20 mg tablet 20 mg PO DAILY >90 SBP 07/10/24 09/15/24 metformin 500 mg tablet,extended 1,000 mg PO BID 07/10/24 09/15/24 release 24 hr glipizide 2.5 mg tablet 2.5 mg PO DAILY 09/15/24 mirtazapine 15 mg tablet (Remeron) 15 mg PO BEDTIME 09/15/24 Previous Rx's ?Medication ?Instructions ?Recorded blood-glucose meter (Accu-Chek #1 ea 05/24/22 Guide Glucose Meter) blood-glucose meter (FreeStyle #1 ea 06/09/22 Lite Meter kit) amiodarone 200 mg tablet 200 mg PO DAILY 90 days #90 tabs 01/15/24 blood sugar diagnostic (FreeStyle #100 ea 02/11/24 Lite Strips) spironolactone 25 mg tablet 25 mg PO DAILY #90 tabs 02/11/24 atorvastatin 40 mg tablet 40 mg PO BEDTIME #90 tabs 02/17/24 finasteride 5 mg tablet 5 mg PO DAILY 90 days #90 tabs 03/02/24 tamsulosin 0.4 mg capsule 0.4 mg PO DAILY 90 days #90 caps 03/02/24 solifenacin 5 mg tablet (Vesicare) 5 mg PO DAILY 30 days #30 tabs 03/31/24 methenamine hippurate 1 gram tablet 1 g PO DAILY 90 days #90 tabs 05/01/24 amoxicillin 500 mg capsule 500 mg PO BID #10 caps 07/14/24 cyanocobalamin (vitamin B-12) 1,000 mcg PO DAILY #90 tabs 07/14/24 1,000 mcg tablet (Vitamin B-12) ferrous sulfate 324 mg (65 mg 324 mg PO DAILY #90 tabs 07/14/24 iron) tablet,delayed release magnesium oxide 400 mg PO DAILY #90 tabs 07/14/24 silver nitrate applicators 75 %-25 1 appl topical DAILY #30 ea 07/14/24 % topical stick Allergies Allergy/AdvReac Type Severity Reaction Status Date / Time No Known Allergies Allergy Verified 09/15/24 19:38 [No Known Allergies*] [facility] Past Medical History Medical History (Updated 09/15/24 @ 23:41 by Carter Church MD) Anemia B12 deficiency BPH (benign prostatic hyperplasia) EtOH dependence PAF (paroxysmal atrial fibrillation) HFrEF (heart failure with reduced ejection fraction) Hematuria Abdominal pain Sepsis Urinary tract infection associated with cystostomy catheter CAD (coronary artery disease) Acute exacerbation of CHF (congestive heart failure) Hyperlipidemia Alcohol abuse Diabetes mellitus Hypertension Surgical History History of cardiac cath History of hernia repair Family History Family History Father Liver problem Mother Past heart attack Brother Cancer Sister Cancer Social History Social History Household Members: Family and Children Housing: House Do you presently have visiting nurse or other home services: Yes ([facility] & Grandson helps with care.) Unable to assess alcohol history related to: Unknown Alcohol intake: former Patient Tobacco Use Status: Former Tobacco user Tobacco use type: Cigarette (quit 57 years ago) e-Cigarette/Vaping Use: Never Used Second Hand Smoke Exposure: No Advance Directives: No Advance Directives Information Provided: No Do you have a plan to hurt others: No Plan service: Yes Current occupational status: retired Current occupation: retired [employer] Current occupational exposures/hazards: No Cognitive needs: No Hearing needs: No Vision needs: Yes (reading glasses) Physical Exam ED Vital Signs: Vital Signs - 24 hr 09/15/24 19:31 09/15/24 22:28 Temperature 97.4 F 97.7 F Pulse Rate 88 81 Respiratory Rate 14 20 Blood Pressure 105/55 L 117/60 Pulse Oximetry 95 96 Oxygen Delivery Method Room Air Room Air BMI result Body Mass Index 22.8 Medications Administered Discontinued Medications Generic Name Dose Route Start Last Admin Trade Name Freq PRN Reason Stop Dose Admin Ceftriaxone Sodium 1 gm 09/15/24 21:38 09/15/24 22:54 Ceftriaxone Sodium 1 Gm Vial IVPUSH 09/15/24 21:39 1 gm ONCE ONE Administration Medical Decision Making Lab Data 09/15/24 20:47 09/15/24 20:47 Labs: Lab Results 09/15/24 09/15/24 09/15/24 Range/Units 20:47 20:54 21:16 WBC 12.8 H (4.8-10.8) X10*3/uL RBC 2.65 L (4.60-5.80) X10*6/uL Hgb 7.3 L (14.0-18.0) g/dl Hct 23.1 L (42.0-52.0) % MCV 87.2 (80.0-98.0) fL MCH 27.5 (27.0-33.0) pg MCHC 31.6 (31.0-36.0) g/dl RDW 15.5 (11.0-16.0) % Plt Count 442 H (160-400) X10*3/uL MPV 8.6 L (9.4-12.4) fL Immature Gran % (Auto) 0.7 H (0.0-0.4) % Neut % (Auto) 84.8 H (45-73) % Lymph % (Auto) 5.6 L (20-40) % [place] % (Auto) 7.8 (2-11) % Eos % (Auto) 0.9 (0-4) % Baso % (Auto) 0.2 (0-2) % Lymph # (Auto) 0.7 L (1.2-4.9) X10*3/uL [place] # (Auto) 1.0 (0.1-1.2) X10*3/uL Eos # (Auto) 0.1 (0.0-0.4) X10*3/uL Baso # (Auto) 0.0 (0.0-0.2) X10*3/uL Abs Immat Gran (auto) 0.09 H (0.00-0.03) X10*3/uL Absolute Neuts (auto) 10.8 H (2.0-8.3) x10*3/uL Absolute Nucleated RBC 0.000 (0.0-0.012) X10*3/uL Nucleated RBC % (auto) 0.0 (0.0-0.2) /100WBC PT 17.7 H (10.9-12.4) SEC INR 1.5 H (0.9-1.1) VBG pH 7.44 H (7.32-7.43) VBG pCO2 36 mmHg VBG pO2 61 mmHg VBG HCO3 25 (22-26) mmol/L VBG O2 Saturation 83.0 % VBG Base Excess 1.4 mmol/L Sodium 133 L (135-145) mmol/L Potassium 4.6 (3.3-5.1) mmol/L Chloride 103 (96-108) mmol/L Carbon Dioxide 22 (22-29) mmol/L Anion Gap 13 (12-20) BUN 21 H (9-16) mg/dL Creatinine 1.31 (0.5-1.4) mg/dL Estim Creat Clear Calc 42.0 Estimated GFR 52 Random Glucose 156 H (60-115) mg/dL Lactic Acid (0.5-2.0) mmol/L Calcium 8.8 (8.4-10.2) mg/dL Magnesium 2.0 (1.6-2.6) mg/dL Total Bilirubin 0.5 (0.0-1.0) mg/dL Direct Bilirubin 0.2 (0.0-0.5) mg/dL AST 29 (5-37) U/L ALT 9 (0-40) U/L Alkaline Phosphatase 80 (39-117) U/L Troponin I High Sens < 2.7 (<3.5-35.0) ng/L C-Reactive Protein 9.85 H (< or = 0.50) mg/dL B-Natriuretic Peptide 336 H (<100) pg/mL Total Protein 7.4 (6.5-8.0) g/dL Albumin 3.1 L (3.5-5.0) g/dL Lipase 26 (8-78) U/L Urine Color Urine Appearance Urine pH (5.0-9.0) Ur Specific Stow (1.005-1.025) Urine Protein (Neg-Trace) mg/dL Urine Glucose (UA) (Negative) mg/dL Urine Ketones (Negative) mg/dL Urine Blood (Negative) Urine Nitrite (Negative) Ur Leukocyte Esterase (Negative) Urine RBC (0-2) /HPF Urine WBC (0-5) /HPF Ur Squamous Epith Cells (0-2) /HPF Urine Bacteria (None Seen) Hyaline Casts (0-2) /LPF Urine Yeast Ethyl Alcohol < 10 mg/dL Influenza Type A (PCR) NEGATIVE (Negative) Influenza Type B (PCR) NEGATIVE (Negative) RSV RNA Qual (PCR) NEGATIVE (Negative) SARS-CoV-2 RNA (RT-PCR) NEGATIVE (Negative) Blood Type Antibody Screen 09/15/24 09/15/24 09/15/24 Range/Units 21:57 22:18 22:39 WBC (4.8-10.8) X10*3/uL RBC (4.60-5.80) X10*6/uL Hgb (14.0-18.0) g/dl Hct (42.0-52.0) % MCV (80.0-98.0) fL MCH (27.0-33.0) pg MCHC (31.0-36.0) g/dl RDW (11.0-16.0) % Plt Count (160-400) X10*3/uL MPV (9.4-12.4) fL Immature Gran % (Auto) (0.0-0.4) % Neut % (Auto) (45-73) % Lymph % (Auto) (20-40) % [place] % (Auto) (2-11) % Eos % (Auto) (0-4) % Baso % (Auto) (0-2) % Lymph # (Auto) (1.2-4.9) X10*3/uL [place] # (Auto) (0.1-1.2) X10*3/uL Eos # (Auto) (0.0-0.4) X10*3/uL Baso # (Auto) (0.0-0.2) X10*3/uL Abs Immat Gran (auto) (0.00-0.03) X10*3/uL Absolute Neuts (auto) (2.0-8.3) x10*3/uL Absolute Nucleated RBC (0.0-0.012) X10*3/uL Nucleated RBC % (auto) (0.0-0.2) /100WBC PT (10.9-12.4) SEC INR (0.9-1.1) VBG pH (7.32-7.43) VBG pCO2 mmHg VBG pO2 mmHg VBG HCO3 (22-26) mmol/L VBG O2 Saturation % VBG Base Excess mmol/L Sodium (135-145) mmol/L Potassium (3.3-5.1) mmol/L Chloride (96-108) mmol/L Carbon Dioxide (22-29) mmol/L Anion Gap (12-20) BUN (9-16) mg/dL Creatinine (0.5-1.4) mg/dL Estim Creat Clear Calc Estimated GFR Random Glucose (60-115) mg/dL Lactic Acid 0.9 (0.5-2.0) mmol/L Calcium (8.4-10.2) mg/dL Magnesium (1.6-2.6) mg/dL Total Bilirubin (0.0-1.0) mg/dL Direct Bilirubin (0.0-0.5) mg/dL AST (5-37) U/L ALT (0-40) U/L Alkaline Phosphatase (39-117) U/L Troponin I High Sens (<3.5-35.0) ng/L C-Reactive Protein (< or = 0.50) mg/dL B-Natriuretic Peptide (<100) pg/mL Total Protein (6.5-8.0) g/dL Albumin (3.5-5.0) g/dL Lipase (8-78) U/L Urine Color Dark Yellow Urine Appearance Cloudy Urine pH 5.5 (5.0-9.0) Ur Specific Stow 1.025 (1.005-1.025) Urine Protein 100 (2+) H (Neg-Trace) mg/dL Urine Glucose (UA) Negative (Negative) mg/dL Urine Ketones Trace (Negative) mg/dL Urine Blood Moderate (2+) H (Negative) Urine Nitrite Positive H (Negative) Ur Leukocyte Esterase Large (3+) H (Negative) Urine RBC >20 H (0-2) /HPF Urine WBC >50 H (0-5) /HPF Ur Squamous Epith Cells 0-2 (0-2) /HPF Urine Bacteria 4+ (None Seen) Hyaline Casts 6-10 (0-2) /LPF Urine Yeast Present Ethyl Alcohol mg/dL Influenza Type A (PCR) (Negative) Influenza Type B (PCR) (Negative) RSV RNA Qual (PCR) (Negative) SARS-CoV-2 RNA (RT-PCR) (Negative) Blood Type O Positive Antibody Screen NEGATIVE Discharge Plan Discharge Clinical Impression: Weakness, Anemia, Pleural effusion on right, Abnormal urinalysis, History of congestive heart failure Patient Disposition: Admitted As Inpatient
--- NOTE | 2024-09-16 | P.HPHOSP_ITS ---
History of Present Illness Date of Service: 09/16/24 Attending physician on admission: Rossana Hartman Chief Complaint: generalized weakness, fatigue, loss of appetite This is an 89-year-old male with past medical history hypertension, hyperlipidemia, cataract repair, ETOH use (last use 5 weeks ago), anemia, heart failure with reduced EF of 15-20%, coronary artery disease involving current occlusion of the LAD (patient is not a candidate for stents or open heart surgery), BPH with chronic suprapubic catheter site, atrial fibrillation on amiodarone and anticoagulation, ischemic cardiomyopathy, mju-mvgtzjo-[id number] diabetes, osteoarthritis and history of dysphagia with recent EGD back in April of 2024 status post food bolus issue, and intermittent diarrhea presents to the emergency room with concerns regarding loss of appetite, generalized fatigue, progressive immobility and weakness. Patient was found to have recurring urinary tract infection with chronic suprapubic catheter in place. Patient states the catheter has been changed within 30 days by the [facility] nursing staff. In addition patient has a large left pleural effusion which is progressive from previous chest x-ray back in June when the effusion was small. Patient has been off his Lasix since being at [facility], proximally 2 months now. Patient was seen by his hip hop dance instructor on SaturdaySeptember 15 and there was no discussion regarding patient's need for possible diuretic to continue. Patient has had issues with orthostasis dilation and has been on midodrine. Patient also reports continued constipation issues without straining. Family states MiraLax was effective Patient is not hypoxic on admission, is currently on room air and is not in respiratory distress. Patient does not have oxygen at home. Chest x-ray also noted dense opacity of the right mid lung and right lung base with obscuration of the right heart border and right hemidiaphragm. CT scan of the chest was ordered by ED provider for further clarification of chest x-ray findings and those results are pending. Patient does present with a leukocytosis of 12.8, an H and H of 7.3 and 23.1. Patient's H&H back on August 26 was 7.4 and 23.1. Family states the home care nursing was monitoring patient's H and H and it was advocated that patient should go for a transfusion but patient refused to traveled to [place] for the intervention. Hemodynamics currently stable. Patient was started on ceftriaxone in the ED. patient is receiving 20 of Lasix IV x1. Patient's grandson expresses frustration because the nursing staff have been coming into the home and stressing that patient should drink as much fluid as he can tolerate. As stated above patient's Lasix has been on hold since being in rehab. Last echo was in November of 2023. EF at that time was 15-20%. BNP is elevated this admission, 336. Patient was admitted back in June of 2024 with urinary tract infection. Patient qualified for rehabilitation and went to [facility]. Patient then returned home to live with his daughter and grandson who are his primary caregivers. Since returning from rehab, there has been significant decline and patient is experience weight loss, loss of appetite, difficulty swallowing, involuntary twitching, hoarseness with patient's voice and overall inability to ambulate and need for wheelchair. Patient is currently alert and orientated able to make decisions for himself and did update his MOLST to a DNR DNI. Per patient's family, [facility] and palliative care and prior patient did not do well with the word hospice as he thought this meant he would most likely in the next few days. Education provided to patient and family and patient is requesting consultation to learn more about hospice and palliative care. Family is receiving currently 13 hours of AGRICULTURAL PRODUCTION ENGINEER assistance and this is not enough to meet the needs of the patient at this time. Patient would like to return home and continue living with his grandson. Patient is realistic about his current health status and that he is likely declining overall. Patient states the end will be the end and patient states this with calmness and peacefulness. Review of Systems 2 Review of Systems: Patient is experiencing weight loss, loss of appetite and problems with swallowing. Patient's voice is more hoarse. Patient has developed increased weakness and decreased mobility. Patient denies chest pain or shortness of breath at rest. Patient denies abdominal pain, nausea vomiting but he is experiencing constipation. Yes all other systems are reviewed and are negative [facility] Medical History (Updated 09/16/24 @ 00:01 by JOE Wan) Anemia B12 deficiency BPH (benign prostatic hyperplasia) EtOH dependence PAF (paroxysmal atrial fibrillation) HFrEF (heart failure with reduced ejection fraction) Hematuria Abdominal pain Sepsis Urinary tract infection associated with cystostomy catheter CAD (coronary artery disease) Acute exacerbation of CHF (congestive heart failure) Hyperlipidemia Alcohol abuse Diabetes mellitus Hypertension Cognitive capacity: Alert and orientated x3 Functional capacity: wheelchair bound Family History Father Liver problem Mother Past heart attack Brother Cancer Sister Cancer Surgical History History of cardiac cath History of hernia repair Social History Household Members: Family and Children Housing: House Do you presently have visiting nurse or other home services: Yes ([facility] & Grandson helps with care.) Unable to assess alcohol history related to: Unknown Alcohol intake: former Patient Tobacco Use Status: Former Tobacco user Tobacco use type: Cigarette (quit 57 years ago) e-Cigarette/Vaping Use: Never Used Second Hand Smoke Exposure: No Advance Directives: No Advance Directives Information Provided: No Do you have a plan to hurt others: No Plan service: Yes Current occupational status: retired Current occupation: retired [employer] Current occupational exposures/hazards: No Cognitive needs: No Hearing needs: No Vision needs: Yes (reading glasses) Ebola Risk: Travel/Contact With Anyone From Affected Area/s: No Has Patient Experienced Ebola Symptoms: No Meds Allergies Allergy/AdvReac Type Severity Reaction Status Date / Time No Known Allergies Allergy Verified 09/15/24 19:38 [No Known Allergies*] Active Medications: Current Medications Acetaminophen (Acetaminophen 325 Mg Tablet) 650 mg PO Q6H PRN PRN Reason: Pain, Mild 1-3,fever,headache Albuterol/Ipratropium (Albuterol/Iprat 2.5/0.5mg 3 Ml Ampul.Neb) 3 ml INHALE Q4H PRN PRN Reason: Shortness of Breath/Wheezing Calcium Carbonate (Calcium Carbonate 750 Mg Tab.Chew) 750 mg PO Q4H PRN PRN Reason: Heartburn Ceftriaxone Sodium (Ceftriaxone Sodium 1 Gm Vial) 1 gm IVPUSH Q24H SALLY Enoxaparin Sodium (Enoxaparin Sodium 40 Mg/0.4 Ml Syringe) 40 mg SUBCUT Q24H SALLY Magnesium Hydroxide (Milk Of Magnesia 30 Ml Oral.Susp) 30 ml PO DAILY PRN PRN Reason: Constipation Melatonin (Melatonin 3 Mg Tablet) 6 mg PO BEDTIME PRN PRN Reason: Insomnia Ondansetron HCl (Ondansetron Hcl 4 Mg/2 Ml Vial) 4 mg IVPUSH Q8H PRN PRN Reason: Nausea and Vomiting Polyethylene Glycol (Polyethylene Glycol 3350 17 Gm Powd.Pack) 17 gm PO DAILY PRN PRN Reason: Constipation Senna (Sennosides 8.6 Mg Tablet) 17.2 mg PO BEDTIME SALLY Sodium Chloride (0.9 % Sodium Chloride Flush 3 Ml Syringe) 3 ml IVFLUSH QSHIFT SALLY Home Medications ?Medication ?Instructions ?Recorded ?Confirmed ?Last Taken ?Type acetaminophen 500 mg tablet 1,000 mg PO BID PRN Pain 11/16/23 09/15/24 Unknown History furosemide 20 mg tablet 20 mg PO DAILY >90 SBP 07/10/24 09/15/24 07/09/24 History metformin 500 mg tablet,extended 1,000 mg PO BID 07/10/24 09/15/24 07/09/24 History release 24 hr glipizide 2.5 mg tablet 2.5 mg PO DAILY 09/15/24 Unknown History mirtazapine 15 mg tablet (Remeron) 15 mg PO BEDTIME 09/15/24 Unknown History Physical Exam 2 Vital Signs and Narrative: Vital Signs: Last Vital Signs Temp 97.7 F 09/15/24 22:28 Pulse 81 09/15/24 22:28 Resp 20 09/15/24 22:28 BP 117/60 09/15/24 22:28 Pulse Ox 96 09/15/24 22:28 O2 Del Method Room Air 09/15/24 22:28 BMI result Body Mass Index 22.8 Alert and orientated X3, voice is hoarse. Neuro: CN II-X11 intact, no deficits, visual acuity intact EYES: PERRLA, EOM intact, conjunctiva pink, sclera nonicteric ENT: hearing intact, uvula midline, lips moist, nares patent no epistaxis Cardiac: S1 S2 RRR, no murmur, no JVD, mild edema in Lower ext Pulmonary: lungs diminished bilaterally, left greater than right Abdominal: BS active in all 4 quadrants, no guarding, tenderness, rebounding MSK: strength 2-3/5 upper and lower extremities, muscle atrophy noted upper and lower extremities. : no CVA tenderness no bladder distension suprapubic catheter intact, mild crustiness noted at the insertion site, no purulent drainage noted Extremities: Mild edema in lower extremities, PT and DP pulses palpable +2 Psych: mood stable, judgement and insight good Skin: Intermittent bruising on the hands and arms, no report of sacral or coccyx skin changes Results Labs 09/15/24 20:47 09/15/24 20:47 Labs: Laboratory Results - last 24 hr 09/15/24 09/15/24 09/15/24 20:47 20:54 21:16 MCV 87.2 MCH 27.5 MCHC 31.6 RDW 15.5 Plt Count 442 H MPV 8.6 L Immature Gran % (Auto) 0.7 H Neut % (Auto) 84.8 H Lymph % (Auto) 5.6 L Pleasants % (Auto) 7.8 Eos % (Auto) 0.9 Baso % (Auto) 0.2 Lymph # (Auto) 0.7 L [place]as[place] # (Auto) 1.0 Eos # (Auto) 0.1 Baso # (Auto) 0.0 Abs Immat Gran (auto) 0.09 H Absolute Neuts (auto) 10.8 H Absolute Nucleated RBC 0.000 Nucleated RBC % (auto) 0.0 PT 17.7 H INR 1.5 H VBG pH 7.44 H VBG pCO2 36 VBG pO2 61 VBG HCO3 25 VBG O2 Saturation 83.0 VBG Base Excess 1.4 Anion Gap 13 Estim Creat Clear Calc 42.0 Estimated GFR 52 Random Glucose 156 H Lactic Acid Calcium 8.8 Magnesium 2.0 Total Bilirubin 0.5 Direct Bilirubin 0.2 AST 29 ALT 9 Alkaline Phosphatase 80 C-Reactive Protein 9.85 H B-Natriuretic Peptide 336 H Total Protein 7.4 Albumin 3.1 L Lipase 26 Urine Color Urine Appearance Urine pH Ur Specific Girard Urine Protein Urine Glucose (UA) Urine Ketones Urine Blood Urine Nitrite Ur Leukocyte Esterase Urine RBC Urine WBC Ur Squamous Epith Cells Urine Bacteria Hyaline Casts Urine Yeast Ethyl Alcohol < 10 Influenza Type A (PCR) NEGATIVE Influenza Type B (PCR) NEGATIVE RSV RNA Qual (PCR) NEGATIVE SARS-CoV-2 RNA (RT-PCR) NEGATIVE Blood Type Antibody Screen 09/15/24 09/15/24 09/15/24 21:57 22:18 22:39 MCV MCH MCHC RDW Plt Count MPV Immature Gran % (Auto) Neut % (Auto) Lymph % (Auto) Pleasants % (Auto) Eos % (Auto) Baso % (Auto) Lymph # (Auto) Pleasants # (Auto) Eos # (Auto) Baso # (Auto) Abs Immat Gran (auto) Absolute Neuts (auto) Absolute Nucleated RBC Nucleated RBC % (auto) PT INR VBG pH VBG pCO2 VBG pO2 VBG HCO3 VBG O2 Saturation VBG Base Excess Anion Gap Estim Creat Clear Calc Estimated GFR Random Glucose Lactic Acid 0.9 Calcium Magnesium Total Bilirubin Direct Bilirubin AST ALT Alkaline Phosphatase C-Reactive Protein B-Natriuretic Peptide Total Protein Albumin Lipase Urine Color Dark Yellow Urine Appearance Cloudy Urine pH 5.5 Ur Specific Girard 1.025 Urine Protein 100 (2+) H Urine Glucose (UA) Negative Urine Ketones Trace Urine Blood Moderate (2+) H Urine Nitrite Positive H Ur Leukocyte Esterase Large (3+) H Urine RBC >20 H Urine WBC >50 H Ur Squamous Epith Cells 0-2 Urine Bacteria 4+ Hyaline Casts 6-10 Urine Yeast Present Ethyl Alcohol Influenza Type A (PCR) Influenza Type B (PCR) RSV RNA Qual (PCR) SARS-CoV-2 RNA (RT-PCR) Blood Type O Positive Antibody Screen NEGATIVE ECG Attestation: I personally reviewed and interpreted this ECG as follows: (Normal sinus rhythm Left axis deviation Non-specific intra-ventricular conduction block Nonspecific T wave abnormality) Prior ECG tracings: available for review Imaging Radiologist's Impressions: CXR Interval development of a large right pleural effusion. There is dense opacity of the right mid lung and right lung base with obscuration of the right heart border and right hemidiaphragm. No infiltrates within the left lung. No pneumothorax. Impression: Large right pleural effusion with dense consolidation of the right mid lung and right lung base. CT chest pending Assessment and Plan (1) UTI (urinary tract infection): Status: Acute Plan This is an 89-year-old male with past medical history hypertension, hyperlipidemia, cataract repair, ETOH use (last use 5 weeks ago), anemia, heart failure with reduced EF of 15-20%, coronary artery disease involving current occlusion of the LAD (patient is not a candidate for stents or open heart surgery), BPH with chronic suprapubic catheter site, atrial fibrillation on amiodarone and anticoagulation, ischemic cardiomyopathy, [id number] diabetes, osteoarthritis and history of dysphagia with recent EGD back in April of 2024 status post food bolus issue, and intermittent diarrhea is being admitted for generalized weakness, UTI, and large left pleural effusion. Urinary tract infection with chronic suprapubic catheter in place -UA grossly positive, question of colonization -Follow urine culture -Patient was started on ceftriaxone in the ED, this will continue -Patient follows with urologist and home care nursing for catheter change and care for BPH. Last catheter change was less than 30 days ago per pt/ family. -Consider urology consultation if indicated Large left pleural effusion -CT scan of the chest is pending -may need to consider IR for thoracentesis -patient not currently hypoxic or compromised respiratory colvin -question of possible pneumonia, currently on ceftriaxone only, await CT results, consider doxycyline if needed -Pt resendiz snot been on lasix in over 2 months HFrEF 15% -BNP 336 -Lasix 20 IV ordered in the ED, per patient's record Lasix has been on hold -patient has not been on Lasix for the last 2 months. Patient was seen by hip hop dance instructor on SaturdaySeptember 15, no med changes provided. -daily weights, low-sodium diet, measure intake and output q.8 hours, goal negative net balance -fluid restriction 1500 Dysphagia -Progressive and worsening -Possibly sign of overall decline -Noted wt loss -ST eval ordered -Aspiration precautions -Pt did pass bedside swallow using water for meds Significant Health decline with mulptiple comorbidities -CM consulted -Hospice Palliative care consult placed per pt request. Education provided to pt and family. -MOLST updated to DNR DNI -Pt wants to return home to be with family. Family is requesting additional support as patient's needs have increased. -PT consulted, pt does not want to return to rehab Anemia -H&H 7.3 and 23.1. May be dilutional as patient has been off his Lasix. -Will check stool for occult -Protonix IV started -Type and screen good fro 72 hours -Will check iron panel and B12, pt is on iron daily -Hemodynamics currently stable -consider GI consultation if indicated Mild hyponatremia -sodium 133 -trend BMP DMII -diabetic diet -sliding scale insulin -Glucerna supplements or alternative diabetic supplement Constipation -ongoing chronic issue, patient is on iron -adding back MiraLax daily -senna HS -Dulcolax suppository PRN if no BM in 48 hours DVT prophylaxis: Eliquis Ppi prophylaxis: Protonix Med rec pending Patient is a DNR IRMA [facility]ADA updated 09/16/2024 Quality Stroke Does the patient have a stroke diagnosis?: No Reason for No Anti-thrombotic by Day Two: N/A - Med Ordered VTE Prior VTE?: No VTE Risk Level:: Medical - moderate - high VTE Device Contraindication: N/A - Device Ordered VTE Drug Contraindication: N/A - Med Ordered
[2024-09-16] MEDS: iohexoL 350 MG/ML 100 ML INFUS..BTL 65 ML IV (00:11)
[2024-09-16] MEDS: Furosemide 20 MG/2 ML VIAL IVPUSH (00:48)
[2024-09-16] MEDS: Enoxaparin Sodium 40 MG/0.4 ML SYRINGE SUBCUT (00:49)
[2024-09-16] MEDS: 0.9 % Sodium Chloride Flush 3 ML SYRINGE IVFLUSH ×4 (00:49→20:26)
[2024-09-16 05:57] LABS: MANUAL DIFF FLAG NO
[2024-09-16 06:13] LABS: Basophils Absolute Auto 0.1 X10*3/uL (0.0-0.2); Basophils Percent Auto 0.6 % (0-2); Eosinophils Absolute Auto 0.2 X10*3/uL (0.0-0.4); Eosinophils Percent Auto 2.1 % (0-4); Hematocrit 22.8 % (42.0-52.0); Hemoglobin 7.1 g/dl (14.0-18.0); Imm Gran Abs Auto 0.04 X10*3/uL (0.00-0.03); Imm Gran Pct Auto 0.4 % (0.0-0.4); Lymphocytes Absolute Auto 1.3 X10*3/uL (1.2-4.9); Lymphocytes Percent Auto 14.4 % (20-40); Mean Corpuscular HGB Conc 31.1 g/dl (31.0-36.0); Mean Corpuscular Hemoglobin 27.2 pg (27.0-33.0); Mean Corpuscular Volume 87.4 fL (80.0-98.0); Mean Platelet Volume 8.8 fL (9.4-12.4); Monocytes Percent Auto 10.5 % (2-11); Neutrophils Absolute Auto 6.5 x10*3/uL (2.0-8.3); Platelet Count 458 X10*3/uL (160-400); Red Blood Count 2.61 X10*6/uL (4.60-5.80); Red Cell Distribution Width 15.6 % (11.0-16.0)
[2024-09-16 06:23] LABS: Alanine Aminotransferase 7 U/L (0-40); Alkaline Phosphatase 74 U/L (39-117); Anion Gap 14 (12-20); Aspartate Amino Transferase 25 U/L (5-37); Bilirubin Total 0.3 mg/dL (0.0-1.0); Blood Urea Nitrogen 22 mg/dL (9-16); Calcium 8.7 mg/dL (8.4-10.2); Carbon Dioxide 23 mmol/L (22-29); Chloride 102 mmol/L (96-108); Creatinine Clr Calc Pharmacy 46.6; Estimated Glomerular Filt Rate 58; Glucose Random 79 mg/dL (60-115); Iron 17 mcg/dL (45-160); Percent Iron Saturation 12 % (15-50); Potassium 4.1 mmol/L (3.3-5.1); Sodium 135 mmol/L (135-145); Total Iron Binding Capacity 142 mcg/dL (228-428); Total Protein 6.9 g/dL (6.5-8.0); Unsaturated Iron Binding 125 ug/dL
[2024-09-16 06:39] LABS: Vitamin B12 423 pg/mL (200-900)
[2024-09-16] MEDS: Pantoprazole Sodium 40 MG/10 ML VIAL IVPUSH (06:42)
--- NOTE | 2024-09-16 07:00 | CA_ITS ---
Transthoracic Echocardiogram Patient (Last, First, Middle): Jeet Mena J Gender: Male Date of : 1935 Age: 89 Procedure Date: 09/16/2024 Procedure Type: Transthoracic Echocardiogram Location: ER Height: 182.88 cm Weight: 76.2 kg BSA: 1.98 m2 Heart Rate: 81 bpm BP: 99 / 54 mmHg Tower Hand: CEASAR Referring MD: Gregoria Paulino [facility] College Intern: Yosef Cuello MD Symptoms: CHF with large pleural effusion Study Quality: Adequate ECG Rhythm: Sinus Conclusions: - 1. Severely reduced LV ejection fraction of 20-25% with grade 1 diastolic dysfunction 2. Mild mitral regurgitation 3. Normal right atrial pressures 4. Upper limits of normal ascending aortic size 5. No gross pericardial effusion Findings Procedure Information Contrast agent, definity, is being given per protocol without apparent complications. Left Ventricle Normal left ventricular cavity size. There is normal left ventricular wall thickness. The left ventricular systolic function is severely decreased. The visually estimated ejection fraction is between 20-25%. Spectral Doppler is indicative of an impaired relaxation filling pattern. E/E prime ratio is <8, consistent with normal filling pressures. Evidence suggests grade I (mild) diastolic dysfunction. Wall Motion Rest Echo Findings The anterior wall, anterolateral wall, inferolateral wall, the mid inferior, basal inferoseptal, basal anteroseptal, and mid anteroseptal segments are hypokinetic. The apex, apical inferior, apical lateral, apical septum, and mid inferoseptal segments are akinetic. All other scored wall segments showed normal motion. Right Ventricle Normal right ventricular cavity size and systolic function. Atria The left atrium is likely dilated. There is no evidence of interatrial shunt. The right atrium is normal in size. Aortic Valve Normal aortic valve structure and function. There is no aortic valve stenosis. There is no aortic valve regurgitation. Mitral Valve There is mild anterior and moderate posterior mitral leaflet thickening. There is moderate mitral annular calcification. There is mild mitral valve regurgitation. There is no mitral valve stenosis. Pulmonic Valve The pulmonic valve is likely normal. There is trace pulmonic valve regurgitation. Tricuspid Valve Likely normal tricuspid valve structure and function. Tricuspid regurgitation envelope is inadequate for calculation of right ventricular systolic pressure. Normal right atrial pressure. Great Vessels The pulmonary artery was not well visualized. There is no dilatation of the ascending aorta measuring 3.50 cm. Venous The inferior vena cava is normal in size and collapses greater than 50% with inspiration. Pericardium/Pleural There is no evidence of pericardial effusion. There is a right sided pleural effusion. Prior Study Comparison No significant change compared to prior study dated: 12/09/2023. Measurements 2D Linear Measurements IVSd: 0.65 0.6-0.9/0.6-1.0 cm LVIDd: 5.78 3.9-5.3/4.2-5.9 cm LVIDd Index: 2.92 2.4-3.2/2.2-3.1 cm/m2 LVIDs: 4.94 2.0-3.6 cm LVPWd: 0.80 0.7-1.1 cm LA Diam: 4.50 2.7-3.8/3.0-4.0 cm LAIDs Index: 2.27 1.5-2.3 cm/m2 LV Mass: 192.23 67-162/88-224 g LV Mass Index: 97.08 43-95/49-115 g/m2 LVOT Diam: 2.60 3.0+(-)1.3 cm 2D Systolic Function EF 4C: 27.30 >55% EF 2C: 27.10 >55% EF BiP: 25.70 >55% Mitral Valve MV VTI: 0.20 MV Pk Yunior: 0.84 MV Mn Yunior: 0.57 MV Pk Grad: 3.00 MV Mn Grad: 1.00 MV Pk E: 0.42 MV PK A: 0.83 E/A: 0.50 E'Lateral: 5.87 E'Medial: 4.68 E/E' Med: 9.10 E/E' Lat: 7.20 MVA Continuity: 3.18 Aortic Valve AoV Pk Yunior: 1.06 AoV Mn Yunior: 0.80 AoV VTI: 0.20 AoV Pk Grad: 4.00 Aov Mn Grad: 3.00 NADYA Cont.VTI: 3.13 LVOT LVOT Pk Yunior: 0.67 LVOT Mn Yunior: 0.45 LVOT VTI: 0.12 LVOT Pk Grad: 2.00 LVOT Mn Grad: 1.00 LVOT Diam: 2.60 LVOT Area: 5.31 Diastolic Function MV Pk E: 0.42 MV Pk A: 0.83 E/A: 0.50 E'Medial: 4.68 E/E' Med: 9.10 E' Laterial: 5.87 E/E' Lat: 7.20 Right Ventricle TAPSE (mm): 18.90 TVS' Yunior: 9.36 Tricuspid Valve RA Press: 8.00 Great Vessels Aorta Sinus of Valsalva: 3.60 2.0-3.5 cm Ao Asc: 3.50 2.1-3.4 cm Pulmonary Valve PV Pk Yunior: 0.81 Peak PV Grad: 3.00 Updated in Other Vendor System with Status of Final Yosef Cuello MD electronically signed on 09/16/2024 12:53:11 PM with status of Final
[2024-09-16 07:12] LABS: Glucose, Whole Blood 68 mg/dL (60-115)
--- NOTE | 2024-09-16 07:13 | PC.NURSE ---
Pt is alert and awake. POC 60s, Breakfast set up and pt eating/tolerating well, will recheck. Pt denies pain or discomfort. Denies SOB, breathing easy.
[2024-09-16 07:48] LABS: Glucose, Whole Blood 135 mg/dL (60-115)
--- NOTE | 2024-09-16 09:23 | MHC.CM.PN ---
CM met with Patient at bedside, in the ED and addressed IMM with him, providing Patient with the original and a copy has been placed on the chart. Patient lives in a house with his Son-in-Law and adult Grandson and he uses a walker to assist with mobility. Patient is active with [facility] and has a [place] funded OPERATION AGENT 1/week. Patient will benefit from a PT Eval to assist with disposition (home resume services vs STR); he was recently at [facility], who is following. PCP is from the [place] @ [facility] and a new LICENSED CLINICAL SOCIAL WORKER from Dr. Wilson's practice (he cannot recall the name). Patient states that his HCP is his Nephew/José (CM has asked [facility] for a copy and left a message for Laura at the [place] @ [phone]).Patient's car is here if dc'd to home vs BLS if STR; CM will follow.
--- NOTE | 2024-09-16 09:31 | P.PNIM_ITS ---
Subjective Subjective Date of Service: 09/16/24 Interval History: f/u on gen weaknes, uti, adult failure to thrive denies sob Physical Exam 2 Vital Signs: Vital Signs: Last Vital Signs Temp 97.6 F 09/16/24 08:52 Pulse 84 09/16/24 08:52 Resp 12 09/16/24 08:52 BP 90/43 L 09/16/24 08:52 Pulse Ox 95 09/16/24 08:52 O2 Del Method Room Air 09/16/24 08:52 BMI result Body Mass Index 22.8 Const: Other: General: AO X 3, no acute distress, frail looking Resp: CTA bilateral CVS: S1,S2,RRR GI: +BS, NT, no distention Skin: No rash Neuro: motor grossly intact Psych: appropriate affect Objective Data Active Medications Acetaminophen (Acetaminophen 325 Mg Tablet) 650 mg PO Q6H PRN PRN Reason: Pain, Mild 1-3,fever,headache Albuterol/Ipratropium (Albuterol/Iprat 2.5/0.5mg 3 Ml Ampul.Neb) 3 ml INHALE Q4H PRN PRN Reason: Shortness of Breath/Wheezing Bisacodyl (Bisacodyl 10 Mg Supp.Rect) 10 mg [place] BEDTIME PRN PRN Reason: Constipation Calcium Carbonate (Calcium Carbonate 750 Mg Tab.Chew) 750 mg PO Q4H PRN PRN Reason: Heartburn Ceftriaxone Sodium (Ceftriaxone Sodium 1 Gm Vial) 1 gm IVPUSH Q24H SALLY Dextrose (Dextrose 50 % 25 Gm/50 Ml Syringe) 25 gm IVPUSH Q15M PRN; Protocol PRN Reason: per Hypoglycemia Standing Ord. Glucose (Glucose Gel 15 Gm Gel..Gram.) 15 gm PO Q15M PRN; Protocol PRN Reason: per Hypoglycemia Standing Ord. Insulin Human Lispro (Insulin Lispro 100 Unit/Ml 3 Ml Vial) 0 unit SUBCUT QIDACHS SALLY; Protocol Last Admin: 09/16/24 07:13 Dose: Not Given Documented By: SOL Non-Admin Reason: No Insulin Coverage Magnesium Hydroxide (Milk Of Magnesia 30 Ml Oral.Susp) 30 ml PO DAILY PRN PRN Reason: Constipation Melatonin (Melatonin 3 Mg Tablet) 6 mg PO BEDTIME PRN PRN Reason: Insomnia Ondansetron HCl (Ondansetron Hcl 4 Mg/2 Ml Vial) 4 mg IVPUSH Q8H PRN PRN Reason: Nausea and Vomiting Pantoprazole Sodium (Pantoprazole Sodium 40 Mg/10 Ml Vial) 40 mg IVPUSH DAILY@0630 [facility] Last Admin: 09/16/24 06:42 Dose: 40 mg Documented By: AYANNA Polyethylene Glycol (Polyethylene Glycol 3350 17 Gm Powd.Pack) 17 gm PO DAILY [facility] Senna (Sennosides 8.6 Mg Tablet) 17.2 mg PO BEDTIME [facility] Sodium Chloride (0.9 % Sodium Chloride Flush 3 Ml Syringe) 3 ml IVFLUSH QSHIFT [facility] Last Admin: 09/16/24 00:49 Dose: 3 ml Documented By: AYANNA Labs 09/16/24 05:38 09/16/24 05:38 Labs: Laboratory Results - last 24 hr 09/15/24 09/15/24 09/15/24 20:47 20:54 21:16 MCV 87.2 MCH 27.5 MCHC 31.6 RDW 15.5 Plt Count 442 H MPV 8.6 L Immature Gran % (Auto) 0.7 H Neut % (Auto) 84.8 H Lymph % (Auto) 5.6 L [place] % (Auto) 7.8 Eos % (Auto) 0.9 Baso % (Auto) 0.2 Lymph # (Auto) 0.7 L [place] # (Auto) 1.0 Eos # (Auto) 0.1 Baso # (Auto) 0.0 Abs Immat Gran (auto) 0.09 H Absolute Neuts (auto) 10.8 H Absolute Nucleated RBC 0.000 Nucleated RBC % (auto) 0.0 PT 17.7 H INR 1.5 H VBG pH 7.44 H VBG pCO2 36 VBG pO2 61 VBG HCO3 25 VBG O2 Saturation 83.0 VBG Base Excess 1.4 Anion Gap 13 Estim Creat Clear Calc 42.0 Estimated GFR 52 POC Glucose Random Glucose 156 H Lactic Acid Calcium 8.8 Magnesium 2.0 Iron TIBC % Saturation Unsat Iron Binding Total Bilirubin 0.5 Direct Bilirubin 0.2 AST 29 ALT 9 Alkaline Phosphatase 80 C-Reactive Protein 9.85 H B-Natriuretic Peptide 336 H Total Protein 7.4 Albumin 3.1 L Lipase 26 Vitamin B12 Urine Color Urine Appearance Urine pH Ur Specific [place] Urine Protein Urine Glucose (UA) Urine Ketones Urine Blood Urine Nitrite Ur Leukocyte Esterase Urine RBC Urine WBC Ur Squamous Epith Cells Urine Bacteria Hyaline Casts Urine Yeast Ethyl Alcohol < 10 Influenza Type A (PCR) NEGATIVE Influenza Type B (PCR) NEGATIVE RSV RNA Qual (PCR) NEGATIVE SARS-CoV-2 RNA (RT-PCR) NEGATIVE Blood Type Antibody Screen 09/15/24 09/15/24 09/15/24 21:57 22:18 22:39 MCV MCH MCHC RDW Plt Count MPV Immature Gran % (Auto) Neut % (Auto) Lymph % (Auto) [place] % (Auto) Eos % (Auto) Baso % (Auto) Lymph # (Auto) [place] # (Auto) Eos # (Auto) Baso # (Auto) Abs Immat Gran (auto) Absolute Neuts (auto) Absolute Nucleated RBC Nucleated RBC % (auto) PT INR VBG pH VBG pCO2 VBG pO2 VBG HCO3 VBG O2 Saturation VBG Base Excess Anion Gap Estim Creat Clear Calc Estimated GFR POC Glucose Random Glucose Lactic Acid 0.9 Calcium Magnesium Iron TIBC % Saturation Unsat Iron Binding Total Bilirubin Direct Bilirubin AST ALT Alkaline Phosphatase C-Reactive Protein B-Natriuretic Peptide Total Protein Albumin Lipase Vitamin B12 Urine Color Dark Yellow Urine Appearance Cloudy Urine pH 5.5 Ur Specific [place] 1.025 Urine Protein 100 (2+) H Urine Glucose (UA) Negative Urine Ketones Trace Urine Blood Moderate (2+) H Urine Nitrite Positive H Ur Leukocyte Esterase Large (3+) H Urine RBC >20 H Urine WBC >50 H Ur Squamous Epith Cells 0-2 Urine Bacteria 4+ Hyaline Casts 6-10 Urine Yeast Present Ethyl Alcohol Influenza Type A (PCR) Influenza Type B (PCR) RSV RNA Qual (PCR) SARS-CoV-2 RNA (RT-PCR) Blood Type O Positive Antibody Screen NEGATIVE 09/16/24 09/16/24 09/16/24 05:38 07:08 07:45 MCV 87.4 MCH 27.2 MCHC 31.1 RDW 15.6 Plt Count 458 H MPV 8.8 L Immature Gran % (Auto) 0.4 Neut % (Auto) 72.0 Lymph % (Auto) 14.4 L [place] % (Auto) 10.5 Eos % (Auto) 2.1 Baso % (Auto) 0.6 Lymph # (Auto) 1.3 [place] # (Auto) 1.0 Eos # (Auto) 0.2 Baso # (Auto) 0.1 Abs Immat Gran (auto) 0.04 H Absolute Neuts (auto) 6.5 Absolute Nucleated RBC 0.000 Nucleated RBC % (auto) 0.0 PT INR VBG pH VBG pCO2 VBG pO2 VBG HCO3 VBG O2 Saturation VBG Base Excess Anion Gap 14 Estim Creat Clear Calc 46.6 Estimated GFR 58 POC Glucose 68 135 H Random Glucose 79 Lactic Acid Calcium 8.7 Magnesium Iron 17 L TIBC 142 L % Saturation 12 L Unsat Iron Binding 125 Total Bilirubin 0.3 Direct Bilirubin AST 25 ALT 7 Alkaline Phosphatase 74 C-Reactive Protein B-Natriuretic Peptide Total Protein 6.9 Albumin 3.0 L Lipase Vitamin B12 423 Urine Color Urine Appearance Urine pH Ur Specific [place] Urine Protein Urine Glucose (UA) Urine Ketones Urine Blood Urine Nitrite Ur Leukocyte Esterase Urine RBC Urine WBC Ur Squamous Epith Cells Urine Bacteria Hyaline Casts Urine Yeast Ethyl Alcohol Influenza Type A (PCR) Influenza Type B (PCR) RSV RNA Qual (PCR) SARS-CoV-2 RNA (RT-PCR) Blood Type Antibody Screen Assessment and Plan (1) UTI (urinary tract infection): Status: Acute (2) Pleural effusion on right: Status: Acute Plan This is an 89-year-old male with past medical history hypertension, hyperlipidemia, cataract repair, ETOH use (last use 5 weeks ago), anemia, heart failure with reduced EF of 15-20%, coronary artery disease involving current occlusion of the LAD (patient is not a candidate for stents or open heart surgery), BPH with chronic suprapubic catheter site, atrial fibrillation on amiodarone and anticoagulation, ischemic cardiomyopathy, [id number] diabetes, osteoarthritis and history of dysphagia with recent EGD back in April of 2024 status post food bolus issue, and intermittent diarrhea is being admitted for generalized weakness, UTI, and large left pleural effusion. UTI d/t chronic suprapubic catheter culture pending continue cefttriaxone Large left pleural effusion on CXT and CT, possible loculation, assymptomatic pulmonology consult for to see if needs chest tube vs drainage if pt/family desires continue Abx as above Chronic HFrEF 15%, -BNP 336, appear eeuvolemic, got IV lasix 20 in ED, hold further diuretics low salt diet, fl Dysphagia INTERFACE CONTROL OFFICER eval Adult failure to thrive Significant Health decline with mulptiple comorbidities Pt/family want hospice at home, DNR/DNI, MOLST in place Hospice Palliative care consult placed per pt request. Education provided to pt and family. MOLST updated to DNR DNI Anemia, likely of chronic disease, monitor, no indication for further testing at this time Mild hyponatremia,mild moniotor DMII SSI, diabetic diet Constipation ongoing chronic issue, patient is on iron MiraLax daily senna HS Dulcolax suppository PRN if no BM in 48 hours DVT prophylaxis: Eliquis Ppi prophylaxis: Protonix Patient is a DNR DNI, MOLST updated 09/16/2024 Quality Stroke Does the patient have a stroke diagnosis?: No Reason for No Anti-thrombotic by Day Two: N/A - Med Ordered VTE Prior VTE?: No VTE Risk Level:: Medical - moderate - high VTE Device Contraindication: N/A - Device Ordered VTE Drug Contraindication: N/A - Med Ordered
--- NOTE | 2024-09-16 09:59 | MHC.CLN ---
NUTRITION CONSULT-ROUTINE POOR PO INTAKE >4 DAYS AND 34# WEIGHT LOSS NOTED IN ED. REVIEW OF WEIGHT HX SHOWS WEIGHT RANGE X ONE YEAR 72-79 KG WITH NO SIGNIFICANT WEIGHT LOSS. REDNESS TO BUTTOCK NOTED. DIET=DM 2000 KCALS, 2 G SODIUM WITH 1500 ML/DAY FLUID RESTRICTION. PATIENT WITH LARGE PLEURAL EFFUSION. NO ADDITIONAL NUTRITION INTERVENTIONS AT THIS TIME.
--- NOTE | 2024-09-16 10:03 | PC.NURSE ---
Sitting up in recliner by PT, seen by speech and reg diet recommended. Awaits bed assgn
[2024-09-16] MEDS: polyethylene glycoL 3350 17 GM POWD.PACK PO (10:12)
--- NOTE | 2024-09-16 10:16 | PC.NURSE ---
CM at bedside speaking about being discharged home with hospice services at this time. BP soft. Pt offers no complaints but expresses to go home
--- NOTE | 2024-09-16 10:35 | MHC.CM.PN ---
CM met with Patient after ROUNDS to again discuss dc planning. Patient is agreeable to a Hospice Informational and he would like his Grandson/Pan present(CM spoke with Pan @ listed # and he is agreeable to attend the meeting). CM has referred to [facility] and await update on when Informational is scheduled. is aware.
--- NOTE | 2024-09-16 11:16 | PHA.MEDREC ---
Pharmacy Consult ? Medication Reconciliation Pharmacy has completed the medication reconciliation. Received med list from [facility]. List included Apixaban 2.5mg, Colace, Midodrine and Senna and did not have a few medications such as tamsulosin, solefinicin, spironalactone, metformin, finasteride, amoxacillin, or furosemide.
[2024-09-16 13:29] LABS: Glucose, Whole Blood 129 mg/dL (60-115)
--- NOTE | 2024-09-16 14:12 | MHC.SL.SWA ---
Speech Pathologist Impression: Oral phase dysphagia d/t missing dentition; presbyphagia Risk of Aspiration Due to: Weakness Hx of dysphagia (with hard solids) Dysphasia Diet Status: Regular diet with thin liquids Liquid Consistency and Strategies for Safe Swallow: Liquid Intake Recommendation: Thin Liquid Intake Strategies: Upright positioning Slow pacing Solid Food Consistency: Dietary Recommendations: Regular Additional Modifications to Solid Foods: Oral Medication Intake: Whole with Puree Please contact the pharmacy regarding appropriate crushable or liquid drug formulations that are available whenever modified delivery is recommended. Compensatory Strategies and Precautions to be Taken for Safe Swallow: Supervision While Eating and Drinking for Safe Swallow: Intermittent Supervision Foods to Avoid: Swallowing Recommended Treatments: Recommendation for Speech: Comment: Pt is missing several natural teeth but shows good efficiency in chewing with remaining teeth. Oral phase for thin liquids, solids moistened by liquids and tsps of puree WNL. Pt tolerated trials with adequate oropharyngeal coordination, no overt s/s of aspiration. Wet voicing occurred x1 during PO trials, subsequent vocal wetness after speaking at length. Pt verbalized understanding of variability in MG characteristics and agreed with POC. Recc regular diet with thin liquids, COLLAR WORKER to follow. Frequency/Duration: Date Range for Service Req: Timeline to reassess: Resident Care Aid Clinican/Clinical Fellow: No Supervisory Statement: I have reviewed and agree with the student/clinical fellow's documentation: N/A Speech Language Pathologist: Belen Causey M.S., CCC-COLLAR WORKER
--- NOTE | 2024-09-16 15:05 | MHC.CM.PN ---
CM assisted Patient with the completion of a HCP; he has named his Son/Carlyle as his Agent.
[2024-09-16 16:40] LABS: Glucose, Whole Blood 101 mg/dL (60-115)
[2024-09-16] MEDS: cefTRIAXone sodium 1 GM VIAL IVPUSH (20:26)
[2024-09-16] MEDS: Sennosides 8.6 MG TABLET 17.2 MG PO (20:26)
[2024-09-16 20:27] LABS: Glucose, Whole Blood 88 mg/dL (60-115)
[2024-09-17] VITALS (8 sets, daily range): BP systolic 98–138; BP diastolic 55–63; PULSE 76–87; RESP 18; TEMP 36.1–37.2; O2SAT 95–99; BMI 21.7
[2024-09-17] MEDS: Pantoprazole Sodium 40 MG/10 ML VIAL IVPUSH (05:59)
[2024-09-17 07:07] LABS: Hematocrit 24.4 % (42.0-52.0); Hemoglobin 7.5 g/dl (14.0-18.0); Mean Corpuscular HGB Conc 30.7 g/dl (31.0-36.0); Mean Corpuscular Hemoglobin 26.8 pg (27.0-33.0); Mean Corpuscular Volume 87.1 fL (80.0-98.0); Mean Platelet Volume 8.6 fL (9.4-12.4); Platelet Count 471 X10*3/uL (160-400); Red Cell Distribution Width 15.6 % (11.0-16.0); White Blood Count 8.4 X10*3/uL (4.8-10.8)
[2024-09-17 07:09] LABS: Glucose, Whole Blood 88 mg/dL (60-115)
[2024-09-17 07:12] LABS: Anion Gap 13 (12-20); Blood Urea Nitrogen 24 mg/dL (9-16); Calcium 9.2 mg/dL (8.4-10.2); Carbon Dioxide 26 mmol/L (22-29); Chloride 100 mmol/L (96-108); Creatinine Clr Calc Pharmacy 43.6; Estimated Glomerular Filt Rate 57; Glucose Random 83 mg/dL (60-115); Potassium 4.2 mmol/L (3.3-5.1); Sodium 135 mmol/L (135-145)
--- NOTE | 2024-09-17 07:52 | HO.WOUND ---
Wound Consult: Initial 89yr old?Male admitted to [facility] on 09/15/24- See progress notes and H&P for detailed history.? Wound consult placed for coccyx wound.? Patient agreeable to assessment and photo documentation.? Patient is not able to recall source of injury or how long he has had the injury. There is an old incision noted to the area which ultimately increases risk of pressure injury development however source of scar is not clear in chart review. Coccyx Etiology: Stage 3 Pressure Injury ??Present on Admission Measurements: 2cm x 1cm x 0.3cm Wound Bed: red moist tissue - full thickness tissue loss Drainage / Odor: small yellow olvera drainage no odor Edges: ? macerated and epibole Rossy wound: ?MASD and slow to danyel pink No Induration, Fluctuance or Warmth noted Pain: tenderness and pain reported Goals of Treatment: ? Durafiber and foam dressing for moisture management KRISTIN in use. Recommendations: 1. Turn and Reposition every 2 hours and as needed for patient comfort.? Use pillows or wedges to support off loading positions. 2. Off Load all bony prominences with use of pillows and heel boots if needed.? Apply Preventative foams where needed. ? 3. Monitor for incontinence and moisture control, use barrier creams when needed for prevention and treatment. 4. Provide adequate and supplemental nutrition.? 5.Continue low air loss mattress. 6. When applicable maintain blood glucose levels per Providers order. Coccyx - Off Load Pressure with Q2 hr turns and use of pillows Cleanse and irrigate with NS, Pat dry.? Apply barrier to periwound, lightly pack with Durafiber AG, be sure to leave a wick to easy removal.? Cover with Foam dressing.? Change every other day. Re-consult wound care Nurse for wound deterioration or wound changes.
[2024-09-17] MEDS: Magnesium Oxide 400 MG TABLET PO (08:05)
[2024-09-17] MEDS: Ascorbic Acid 250 MG TABLET PO (08:05)
[2024-09-17] MEDS: Midodrine HCl 2.5 MG TABLET PO ×2 (08:05→13:21)
[2024-09-17] MEDS: Sennosides 8.6 MG TABLET PO ×2 (08:05→19:49)
[2024-09-17] MEDS: Docusate Sodium 100 MG CAPSULE PO ×2 (08:05→19:49)
[2024-09-17] MEDS: polyethylene glycoL 3350 17 GM POWD.PACK PO (08:05)
[2024-09-17] MEDS: Amiodarone HCL 200 MG TABLET PO (08:05)
[2024-09-17] MEDS: Ferrous Sulfate 324 MG TABLET.DR PO (08:05)
[2024-09-17] MEDS: Cyanocobalamin (Vitamin B-12) 1,000 MCG TABLET 1000 MCG PO (08:06)
[2024-09-17] MEDS: glipiZIDE 5 MG TABLET 2.5 MG PO (08:06)
[2024-09-17] MEDS: 0.9 % Sodium Chloride Flush 3 ML SYRINGE IVFLUSH ×3 (08:06→21:21)
--- NOTE | 2024-09-17 10:10 | MHC.CLN ---
PT WITH INCREASED NUTRITION RISK R/T PRESSURE INJURY PT WITH POOR PO BAGEL MAKER NOTED PT WITH 9% NONSIGNIFICANT WT LOSS X1 YEAR DIET RX: 2000DM 2GM NA 1500ML F.R.-RECOMMEND 2200DM 2GM NA 1500ML FR R/T INCREASED KCALS TO PROMOTE WOUND HEALING RECOMMEND ADDING ENSURE MAX BID TO PROMOTE FURTHER WOUND HEALING SUPP TO PROVIDE 300KCALS, 60G PROTEIN, 528ML FREE WATER FROM SUPPLEMENT MONITOR PO INTAKE AND ENCOURAGE SUPPLEMENTS SEE FULL CLINICAL NUTRITION ASSESSMENT
[2024-09-17 11:03] LABS: Glucose, Whole Blood 81 mg/dL (60-115)
--- NOTE | 2024-09-17 11:09 | PM.CNPUL ---
History of Present Illness History of Present Illness Consult date: 09/17/24 Chief complaint: Large pleural effusion, anemia Narrative: This is an inpatient pulmonary consultation. This is an 89-year-old male with past medical history hypertension, hyperlipidemia, cataract repair, ETOH use (last use 5 weeks ago), anemia, heart failure with reduced EF of 15-20%, coronary artery disease involving current occlusion of the LAD (patient is not a candidate for stents or open heart surgery), BPH with chronic suprapubic catheter site, atrial fibrillation on amiodarone and anticoagulation, ischemic cardiomyopathy, isi-wqeqprq-pwortakcy diabetes, osteoarthritis and history of dysphagia with recent EGD back in April of 2024 status post food bolus issue, and intermittent diarrhea presents to the emergency room with concerns regarding loss of appetite, generalized fatigue, progressive immobility and weakness. Patient was found to have recurring urinary tract infection with chronic suprapubic catheter in place. Patient states the catheter has been changed within 30 days by the [facility] nursing staff. In addition patient has a large left pleural effusion which is progressive from previous chest x-ray back in June when the effusion was small. Patient has been off his Lasix since being at [facility], proximally 2 months now. Patient was seen by his letterpress printing machinist on SaturdaySeptember 15 and there was no discussion regarding patient's need for possible diuretic to continue. Patient does present with a leukocytosis of 12.8, an H and H of 7.3 and 23.1. Patient's H&H back on August 26 was 7.4 and 23.1. Family states the home care nursing was monitoring patient's H and H and it was advocated that patient should go for a transfusion but patient refused to traveled to [place] for the intervention. Hemodynamics currently stable. Patient was started on ceftriaxone in the ED. patient is receiving 20 of Lasix IV x1. The patient did have a CT scan of the chest which I personally reviewed demonstrating what appears to be a loculated large right-sided effusion. The family and the patient getting together with hospice to talk about hospice informational visit based on his comorbidities in hospice will be a good option for him. I do believe that undergoing a thoracentesis will be helpful to improve his respiratory status in quality of life. Review of Systems Constitutional: Constitutional: Reports no additional constitutional complaints, Denies chills, Denies fever(s) and Denies night sweats Eyes: Eyes: Reports no additional eye complaints, Denies blurry vision, Denies change in vision, Denies diplopia, Denies eye discharge, Denies loss of vision and Denies eye pain ENT: Denies dizziness Comments: food bolus Cardiovascular: Cardiovascular: Reports no additional cardiovascular complaints, Denies chest pain, Denies lightheadedness, Denies Loss of Consciousness and Denies dyspnea Respiratory: Respiratory: Reports no additional respiratory complaints and Denies dyspnea Gastrointestinal: Gastrointestinal: Reports no additional gastrointestinal complaints, Denies abdominal pain, Denies melena, Denies hematochezia, Denies change in bowel habits, Denies change in stool character, Reports nausea and Reports vomiting (when attempting anything by mouth) Genitourinary: Genitourinary: Reports no additional male genitourinary complaints, Denies hematuria, Denies oliguria, Denies difficulty urinating, Denies dysuria, Denies urinary frequency, Denies urinary hesitancy, Denies urinary incontinence and Denies urinary urgency Musculoskeletal: Musculoskeletal: Reports no additional musculoskeletal complaints, Denies numbness and Denies tingling Neurologic: Denies dizziness, Denies loss of vision, Denies numbness and Denies tingling Psychiatric: Psychiatric: Reports no additional psychiatric complaints Endocrine: Endocrine: Reports no additional endocrine complaints Hematologic/Lymphatic: Hematologic/Lymphatic: Reports no additional hematologic/lymphatic complaints Allergic/Immunologic: Allergic/Immunologic: Reports no additional allergic/immunologic complaints [facility] Past Medical History Medical History Anemia B12 deficiency BPH (benign prostatic hyperplasia) EtOH dependence PAF (paroxysmal atrial fibrillation) HFrEF (heart failure with reduced ejection fraction) Hematuria Abdominal pain Sepsis Urinary tract infection associated with cystostomy catheter CAD (coronary artery disease) Acute exacerbation of CHF (congestive heart failure) Hyperlipidemia Alcohol abuse Diabetes mellitus Hypertension Family History Family History Father Liver problem Mother Past heart attack Brother Cancer Sister Cancer Surgical History Surgical History History of cardiac cath History of hernia repair Social History Social History Household Members: Family Housing: House Do you presently have visiting nurse or other home services: Yes ([facility]) Unable to assess alcohol history related to: Unknown Alcohol intake: former Patient Tobacco Use Status: Former Tobacco user Tobacco use type: Cigarette (quit 57 years ago) e-Cigarette/Vaping Use: Never Used Second Hand Smoke Exposure: No service: Yes Current occupational status: retired Current occupation: retired [employer] Current occupational exposures/hazards: No Cognitive needs: No Hearing needs: No Vision needs: Yes (reading glasses) Travel History Ebola Risk: Travel/Contact With Anyone From Affected Area/s: No Has Patient Experienced Ebola Symptoms: No Meds Allergies Allergy/AdvReac Type Severity Reaction Status Date / Time No Known Allergies Allergy Verified 09/15/24 19:38 [No Known Allergies*] Active Medications: Current Medications Acetaminophen (Acetaminophen 325 Mg Tablet) 650 mg PO Q6H PRN PRN Reason: Pain, Mild 1-3,fever,headache Albuterol/Ipratropium (Albuterol/Iprat 2.5/0.5mg 3 Ml Ampul.Neb) 3 ml INHALE Q4H PRN PRN Reason: Shortness of Breath/Wheezing Amiodarone HCl (Amiodarone Hcl 200 Mg Tablet) 200 mg PO DAILY [facility] Last Admin: 09/17/24 08:05 Dose: 200 mg Ascorbic Acid (Ascorbic Acid 250 Mg Tablet) 250 mg PO DAILY [facility] Last Admin: 09/17/24 08:05 Dose: 250 mg Atorvastatin Calcium (Atorvastatin Calcium 40 Mg Tablet) 40 mg PO BEDTIME SALLY Bisacodyl (Bisacodyl 10 Mg Supp.Rect) 10 mg MD BEDTIME PRN PRN Reason: Constipation Calcium Carbonate (Calcium Carbonate 750 Mg Tab.Chew) 750 mg PO Q4H PRN PRN Reason: Heartburn Ceftriaxone Sodium (Ceftriaxone Sodium 1 Gm Vial) 1 gm IVPUSH Q24H [facility] Last Admin: 09/16/24 20:26 Dose: 1 gm Cyanocobalamin (Cyanocobalamin (Vitamin B-12) 1,000 Mcg Tablet) 1,000 mcg PO DAILY [facility] Last Admin: 09/17/24 08:06 Dose: 1,000 mcg Dextrose (Dextrose 50 % 25 Gm/50 Ml Syringe) 25 gm IVPUSH Q15M PRN; Protocol PRN Reason: per Hypoglycemia Standing Ord. Docusate Sodium (Docusate Sodium 100 Mg Capsule) 100 mg PO BID [facility] Last Admin: 09/17/24 08:05 Dose: 100 mg Ferrous Sulfate (Ferrous Sulfate 324 Mg Tablet.Dr) 324 mg PO DAILY [facility] Last Admin: 09/17/24 08:05 Dose: 324 mg Glipizide (Glipizide 5 Mg Tablet) 2.5 mg PO DAILY [facility] Last Admin: 09/17/24 08:06 Dose: 2.5 mg Glucose (Glucose Gel 15 Gm Gel..Gram.) 15 gm PO Q15M PRN; Protocol PRN Reason: per Hypoglycemia Standing Ord. Insulin Human Lispro (Insulin Lispro 100 Unit/Ml 3 Ml Vial) 0 unit SUBCUT QIDACHS [facility]; Protocol Last Admin: 09/17/24 11:06 Dose: Not Given Magnesium Hydroxide (Milk Of Magnesia 30 Ml Oral.Susp) 30 ml PO DAILY PRN PRN Reason: Constipation Magnesium Oxide (Magnesium Oxide 400 Mg Tablet) 400 mg PO DAILY [facility] Last Admin: 09/17/24 08:05 Dose: 400 mg Melatonin (Melatonin 3 Mg Tablet) 6 mg PO BEDTIME PRN PRN Reason: Insomnia Midodrine (Midodrine Hcl 2.5 Mg Tablet) 2.5 mg PO BID@0900,1200 [facility] Last Admin: 09/17/24 08:05 Dose: 2.5 mg Mirtazapine (Mirtazapine 7.5 Mg Tablet) 7.5 mg PO BEDTIME [facility] Last Admin: 09/17/24 00:23 Dose: Not Given Ondansetron HCl (Ondansetron Hcl 4 Mg/2 Ml Vial) 4 mg IVPUSH Q8H PRN PRN Reason: Nausea and Vomiting Pantoprazole Sodium (Pantoprazole Sodium 40 Mg/10 Ml Vial) 40 mg IVPUSH DAILY@0630 [facility] Last Admin: 09/17/24 05:59 Dose: 40 mg Polyethylene Glycol (Polyethylene Glycol 3350 17 Gm Powd.Pack) 17 gm PO DAILY [facility] Last Admin: 09/17/24 08:05 Dose: 17 gm Senna (Sennosides 8.6 Mg Tablet) 8.6 mg PO BID [facility] Last Admin: 09/17/24 08:05 Dose: 8.6 mg Sodium Chloride (0.9 % Sodium Chloride Flush 3 Ml Syringe) 3 ml IVFLUSH QSHIFT [facility] Last Admin: 09/17/24 08:06 Dose: 3 ml Home Medications ?Medication ?Instructions ?Recorded ?Confirmed ?Last Taken ?Type acetaminophen 500 mg tablet 1,000 mg PO BID PRN Pain 11/16/23 09/16/24 Unknown History glipizide 2.5 mg tablet 2.5 mg PO DAILY 09/15/24 09/16/24 Unknown History mirtazapine 15 mg tablet (Remeron) 7.5 mg PO BEDTIME 09/15/24 09/16/24 Unknown History apixaban 2.5 mg tablet 2.5 mg PO BID 09/16/24 09/16/24 Unknown History ascorbic acid (vitamin C) 250 mg 250 mg PO DAILY 09/16/24 09/16/24 Unknown History tablet docusate sodium 100 mg capsule 100 mg PO BID 09/16/24 09/16/24 Unknown History midodrine 2.5 mg tablet 2.5 mg PO BID@0900,1200 09/16/24 09/16/24 Unknown History ondansetron 4 mg disintegrating 4 mg PO Q8H PRN Nausea And Vomiting 09/16/24 09/16/24 Unknown History tablet sennosides 8.6 mg tablet (senna) 8.6 mg PO BID 09/16/24 09/16/24 Unknown History Physical Exam Vital Signs: Vital Signs: Last Vital Signs Temp 97.0 F 09/17/24 10:56 Pulse 85 09/17/24 10:56 Resp 18 09/17/24 10:56 BP 138/63 09/17/24 10:56 Pulse Ox 97 09/17/24 10:56 O2 Del Method Nasal Cannula 09/17/24 10:56 O2 Flow Rate 2 09/17/24 10:56 BMI result Body Mass Index 21.7 Const: Other: General: AO X 3, no acute distress, frail looking Resp: dimished BS on the right CVS: S1,S2,RRR GI: +BS, NT, no distention Skin: No rash Neuro: motor grossly intact Psych: appropriate affect Results Laboratory Findings 09/17/24 06:39 09/17/24 06:39 ABG, PT/INR, D-dimer: PT/INR, D-dimer PT 17.7 SEC (10.9-12.4) H 09/15/24 20:47 INR 1.5 (0.9-1.1) H 09/15/24 20:47 Abnormal lab findings: Abnormal Labs 09/15/24 09/15/24 09/15/24 20:47 20:54 21:57 WBC 12.8 H RBC 2.65 L Hgb 7.3 L Hct 23.1 L MCH MCHC Plt Count 442 H MPV 8.6 L Immature Gran % (Auto) 0.7 H Neut % (Auto) 84.8 H Lymph % (Auto) 5.6 L Lymph # (Auto) 0.7 L Abs Immat Gran (auto) 0.09 H Absolute Neuts (auto) 10.8 H PT 17.7 H INR 1.5 H VBG pH 7.44 H Sodium 133 L BUN 21 H POC Glucose Random Glucose 156 H Iron TIBC % Saturation C-Reactive Protein 9.85 H B-Natriuretic Peptide 336 H Albumin 3.1 L Urine Protein 100 (2+) H Urine Blood Moderate (2+) H Urine Nitrite Positive H Ur Leukocyte Esterase Large (3+) H Urine RBC >20 H Urine WBC >50 H 09/16/24 09/16/24 09/16/24 05:38 07:45 13:26 WBC RBC 2.61 L Hgb 7.1 L Hct 22.8 L MCH MCHC Plt Count 458 H MPV 8.8 L Immature Gran % (Auto) Neut % (Auto) Lymph % (Auto) 14.4 L Lymph # (Auto) Abs Immat Gran (auto) 0.04 H Absolute Neuts (auto) PT INR VBG pH Sodium BUN 22 H POC Glucose 135 H 129 H Random Glucose Iron 17 L TIBC 142 L % Saturation 12 L C-Reactive Protein B-Natriuretic Peptide Albumin 3.0 L Urine Protein Urine Blood Urine Nitrite Ur Leukocyte Esterase Urine RBC Urine WBC 09/17/24 06:39 WBC RBC 2.80 L Hgb 7.5 L Hct 24.4 L MCH 26.8 L MCHC 30.7 L Plt Count 471 H MPV 8.6 L Immature Gran % (Auto) Neut % (Auto) Lymph % (Auto) Lymph # (Auto) Abs Immat Gran (auto) Absolute Neuts (auto) PT INR VBG pH Sodium BUN 24 H POC Glucose Random Glucose Iron TIBC % Saturation C-Reactive Protein B-Natriuretic Peptide Albumin Urine Protein Urine Blood Urine Nitrite Ur Leukocyte Esterase Urine RBC Urine WBC Microbiology: Microbiology 09/15/24 22:08 Blood - Venous Blood Culture - Preliminary No growth after 24 hours. 09/15/24 22:18 Blood - Venous Blood Culture - Preliminary No growth after 24 hours. 09/15/24 Unknown Urine clean catch - Clean Catch Midstream Urine Culture - Preliminary Culture too young to evaluate. Assessment and Plan (1) Pleural effusion on right: Status: Acute (2) Chronic HFrEF (heart failure with reduced ejection fraction): Status: Acute Plan consider thoracentesis for diagnostic/therapeutic porpuse Diuresis as tolerated Agree with Hospice info visit Procedures Date of Service Date of Service: 09/17/24
[2024-09-17 11:30] LABS: Lactate Dehydrogenase 188 U/L (118-273)
--- NOTE | 2024-09-17 12:11 | HO.PM.IMPN ---
Subjective Subjective Date of Service: 09/17/24 Interval History: Seen and examined this morning Follow-up for pleural effusion, failure to thrive, UTI Awake, alert denies shortness of breath Review of Systems Review of Systems: Yes all other systems are reviewed and are negative Constitutional Constitutional: Denies chills and Denies fever(s) Cardiovascular Cardiovascular: Denies chest pain, Denies palpitations and Denies dyspnea Respiratory Respiratory: Denies cough and Denies dyspnea Gastrointestinal Gastrointestinal: Denies abdominal pain Endocrine Endocrine: Denies palpitations Physical Exam Vital Signs: Vital Signs: Last Vital Signs Temp 97.0 F 09/17/24 10:56 Pulse 85 09/17/24 10:56 Resp 18 09/17/24 10:56 BP 138/63 09/17/24 10:56 Pulse Ox 97 09/17/24 10:56 O2 Del Method Nasal Cannula 09/17/24 10:56 O2 Flow Rate 2 09/17/24 10:56 BMI result Body Mass Index 21.7 Const: Other: Frail elderly male resting in bed comfortably General: cooperative, comfortable, alert and awake Orientation/consciousness: patient oriented x3 Resp: Other: right side dim Effort & Inspection: normal respiratory effort and able to speak in complete sentences Cardio: Rate: regular rate Neuro: Other: Grossly nonfocal General: patient oriented x3 Extrem: General: Yes no pedal edema Objective Data Active Medications Acetaminophen (Acetaminophen 325 Mg Tablet) 650 mg PO Q6H PRN PRN Reason: Pain, Mild 1-3,fever,headache Albuterol/Ipratropium (Albuterol/Iprat 2.5/0.5mg 3 Ml Ampul.Neb) 3 ml INHALE Q4H PRN PRN Reason: Shortness of Breath/Wheezing Amiodarone HCl (Amiodarone Hcl 200 Mg Tablet) 200 mg PO DAILY [facility] Last Admin: 09/17/24 08:05 Dose: 200 mg Documented By: JAMEE Ascorbic Acid (Ascorbic Acid 250 Mg Tablet) 250 mg PO DAILY [facility] Last Admin: 09/17/24 08:05 Dose: 250 mg Documented By: JAMEE Atorvastatin Calcium (Atorvastatin Calcium 40 Mg Tablet) 40 mg PO BEDTIME [facility] Bisacodyl (Bisacodyl 10 Mg Supp.Rect) 10 mg MA BEDTIME PRN PRN Reason: Constipation Calcium Carbonate (Calcium Carbonate 750 Mg Tab.Chew) 750 mg PO Q4H PRN PRN Reason: Heartburn Ceftriaxone Sodium (Ceftriaxone Sodium 1 Gm Vial) 1 gm IVPUSH Q24H [facility] Last Admin: 09/16/24 20:26 Dose: 1 gm Documented By: TIM Cyanocobalamin (Cyanocobalamin (Vitamin B-12) 1,000 Mcg Tablet) 1,000 mcg PO DAILY [facility] Last Admin: 09/17/24 08:06 Dose: 1,000 mcg Documented By: JAMEE Dextrose (Dextrose 50 % 25 Gm/50 Ml Syringe) 25 gm IVPUSH Q15M PRN; Protocol PRN Reason: per Hypoglycemia Standing Ord. Docusate Sodium (Docusate Sodium 100 Mg Capsule) 100 mg PO BID [facility] Last Admin: 09/17/24 08:05 Dose: 100 mg Documented By: JAMEE Ferrous Sulfate (Ferrous Sulfate 324 Mg Tablet.Dr) 324 mg PO DAILY [facility] Last Admin: 09/17/24 08:05 Dose: 324 mg Documented By: JAMEE Glipizide (Glipizide 5 Mg Tablet) 2.5 mg PO DAILY [facility] Last Admin: 09/17/24 08:06 Dose: 2.5 mg Documented By: JAMEE Glucose (Glucose Gel 15 Gm Gel..Gram.) 15 gm PO Q15M PRN; Protocol PRN Reason: per Hypoglycemia Standing Ord. Insulin Human Lispro (Insulin Lispro 100 Unit/Ml 3 Ml Vial) 0 unit SUBCUT QIDACHS [facility]; Protocol Last Admin: 09/17/24 11:06 Dose: Not Given Documented By: JAMEE Non-Admin Reason: No Insulin Coverage Magnesium Hydroxide (Milk Of Magnesia 30 Ml Oral.Susp) 30 ml PO DAILY PRN PRN Reason: Constipation Magnesium Oxide (Magnesium Oxide 400 Mg Tablet) 400 mg PO DAILY [facility] Last Admin: 09/17/24 08:05 Dose: 400 mg Documented By: JAMEE Melatonin (Melatonin 3 Mg Tablet) 6 mg PO BEDTIME PRN PRN Reason: Insomnia Midodrine (Midodrine Hcl 2.5 Mg Tablet) 2.5 mg PO BID@0900,1200 [facility] Last Admin: 09/17/24 08:05 Dose: 2.5 mg Documented By: JAMEE Mirtazapine (Mirtazapine 7.5 Mg Tablet) 7.5 mg PO BEDTIME [facility] Last Admin: 09/17/24 00:23 Dose: Not Given Documented By: TIM Non-Admin Reason: See Note Ondansetron HCl (Ondansetron Hcl 4 Mg/2 Ml Vial) 4 mg IVPUSH Q8H PRN PRN Reason: Nausea and Vomiting Pantoprazole Sodium (Pantoprazole Sodium 40 Mg/10 Ml Vial) 40 mg IVPUSH DAILY@0630 [facility] Last Admin: 09/17/24 05:59 Dose: 40 mg Documented By: TIM Polyethylene Glycol (Polyethylene Glycol 3350 17 Gm Powd.Pack) 17 gm PO DAILY [facility] Last Admin: 09/17/24 08:05 Dose: 17 gm Documented By: JAMEE Senna (Sennosides 8.6 Mg Tablet) 8.6 mg PO BID [facility] Last Admin: 09/17/24 08:05 Dose: 8.6 mg Documented By: JAMEE Sodium Chloride (0.9 % Sodium Chloride Flush 3 Ml Syringe) 3 ml IVFLUSH QSHIFT [facility] Last Admin: 09/17/24 08:06 Dose: 3 ml Documented By: JAMEE Labs 09/17/24 06:39 09/17/24 06:39 Labs: Laboratory Results - last 24 hr 09/16/24 09/16/24 09/16/24 13:26 16:36 20:24 MCV MCH MCHC RDW Plt Count MPV Absolute Nucleated RBC Nucleated RBC % (auto) Anion Gap Estim Creat Clear Calc Estimated GFR POC Glucose 129 H 101 88 Random Glucose Calcium Lactate Dehydrogenase 09/17/24 09/17/24 09/17/24 06:39 07:05 10:59 MCV 87.1 MCH 26.8 L MCHC 30.7 L RDW 15.6 Plt Count 471 H MPV 8.6 L Absolute Nucleated RBC 0.000 Nucleated RBC % (auto) 0.0 Anion Gap 13 Estim Creat Clear Calc 43.6 Estimated GFR 57 POC Glucose 88 81 Random Glucose 83 Calcium 9.2 Lactate Dehydrogenase 188 Microbiology Microbiology Results: Microbiology 09/15/24 Unknown Urine Culture - Preliminary Urine clean catch - Clean Catch Midstream Gram negative azra 09/15/24 22:08 Blood Culture - Preliminary Blood - Venous No growth after 24 hours. 09/15/24 22:18 Blood Culture - Preliminary Blood - Venous No growth after 24 hours. Assessment and Plan (1) Pleural effusion on right: Status: Acute (2) UTI (urinary tract infection): Status: Acute Plan This is an 89-year-old male with past medical history hypertension, hyperlipidemia, cataract repair, ETOH use (last use 5 weeks ago), anemia, heart failure with reduced EF of 15-20%, coronary artery disease involving current occlusion of the LAD (patient is not a candidate for stents or open heart surgery), BPH with chronic suprapubic catheter site, atrial fibrillation on amiodarone and anticoagulation, ischemic cardiomyopathy, thx-thzvkuh-ihtxfsvte diabetes, osteoarthritis and history of dysphagia with recent EGD back in April of 2024 status post food bolus issue, and intermittent diarrhea is being admitted for generalized weakness, UTI, and large left pleural effusion. UTI d/t chronic suprapubic catheter No sepsis Urine culture growing Gram-negative azra-follow final culture results continue IV ceftriaxone Blood cultures negative to date Large left pleural effusion on CXT and CT, possible loculation, assymptomatic Now requiring 2 L of supplemental oxygen Seen by pulmonology - recommended therapeutic/diagnostic thoracentesis continue Abx as above Chronic HFrEF 15%, -BNP 336, appear euvolemic, got IV lasix 20 in ED, hold further diuretics low salt diet Dysphagia Seen by speech therapy, recommend regular diet with thin liquids Adult failure to thrive Significant Health decline with multiple comorbidities Pt/family want hospice at home, DNR/DNI, IRMA in place Plan for hospice informational session today Anemia, likely of chronic disease, monitor, no indication for further testing at this time H/H stable Continue B12, iron supplementation paroxysmal atrial fibrillation Continue amiodarone Eliquis on hold for thoracentesis Mild hyponatremia resolved DMII SSI, diabetic diet hold glipizide Constipation ongoing chronic issue, patient is on iron MiraLax daily senna HS Dulcolax suppository PRN if no BM in 48 hours DVT prophylaxis: Eliquis on hold for thoracentesis Patient is a DNR DNI, [facility]LET[facility] updated 09/16/2024 Quality Stroke Does the patient have a stroke diagnosis?: No Reason for No Anti-thrombotic by Day Two: N/A - Med Ordered VTE Prior VTE?: No VTE Risk Level:: Medical - moderate - high VTE Device Contraindication: N/A - Device Ordered VTE Drug Contraindication: N/A - Med Ordered
--- NOTE | 2024-09-17 12:30 | MHC.CM.PN ---
Patient has changed his HCP from his Son/Carlyle to his Grandson/Pan.
[2024-09-17 16:18] LABS: Glucose, Whole Blood 116 mg/dL (60-115)
--- NOTE | 2024-09-17 17:23 | MHC.SLORD ---
Speech Language Pathology Order Status: Attempted to see patient at lunch, at arrival son informed that patient had eaten coffee and donuts brought from outside, declined hospital lunch. Son and patient reported no difficulties, enjoyed the donuts. GROCERY CARRIER to f/u X1 for toleration.
[2024-09-17] MEDS: Atorvastatin Calcium 40 MG TABLET PO (19:49)
[2024-09-17] MEDS: Mirtazapine 7.5 MG TABLET PO (19:49)
[2024-09-17 20:07] LABS: Glucose, Whole Blood 272 mg/dL (60-115)
[2024-09-17] MEDS: cefTRIAXone sodium 1 GM VIAL IVPUSH (21:19)
[2024-09-17] MEDS: Insulin Lispro 100 UNIT/ML 3 ML VIAL SUBCUT (21:24)
[2024-09-18 03:16] VITALS: BP 94/53; PULSE 82; RESP 18; TEMP 36.4; O2SAT 96
[2024-09-18] MEDS: Pantoprazole Sodium 40 MG/10 ML VIAL IVPUSH (05:44)
[2024-09-18 08:00] VITALS: BP 102/54; PULSE 80; RESP 16; TEMP 36.8; O2SAT 95
[2024-09-18 08:29] LABS: Glucose, Whole Blood 94 mg/dL (60-115)
[2024-09-18] MEDS: Cyanocobalamin (Vitamin B-12) 1,000 MCG TABLET 1000 MCG PO (09:04)
[2024-09-18] MEDS: Amiodarone HCL 200 MG TABLET PO (09:04)
[2024-09-18] MEDS: Ascorbic Acid 250 MG TABLET PO (09:04)
[2024-09-18] MEDS: 0.9 % Sodium Chloride Flush 3 ML SYRINGE IVFLUSH (09:04)
[2024-09-18] MEDS: Midodrine HCl 2.5 MG TABLET PO ×2 (09:04→12:28)
[2024-09-18] MEDS: Sennosides 8.6 MG TABLET PO (09:04)
[2024-09-18] MEDS: Ferrous Sulfate 324 MG TABLET.DR PO (09:04)
[2024-09-18] MEDS: Docusate Sodium 100 MG CAPSULE PO ×2 (09:04→21:11)
[2024-09-18] MEDS: Magnesium Oxide 400 MG TABLET PO (09:04)
[2024-09-18] MEDS: polyethylene glycoL 3350 17 GM POWD.PACK PO (09:04)
--- NOTE | 2024-09-18 10:13 | MHC.SL.SWA ---
Speech Pathologist Impression: WFL Dysphasia Diet Status: No Change Liquid Consistency and Strategies for Safe Swallow: Liquid Intake Recommendation: Thin Liquid Intake Strategies: Small Sips Solid Food Consistency: Dietary Recommendations: Regular Additional Modifications to Solid Foods: Patient is tolerating unmodified diet and denies having any trouble swallowing. Please re-refer with any changes or further concern. Oral Medication Intake: Whole with Puree Please contact the pharmacy regarding appropriate crushable or liquid drug formulations that are available whenever modified delivery is recommended. Compensatory Strategies and Precautions to be Taken for Safe Swallow: Sitting Upright (90 deg) Small Bites and Sips Alternate Liquids/Solids Rate of Ingestion Change Supervision While Eating and Drinking for Safe Swallow: Intermittent Supervision Recommendation for Speech: D/C Mothers Helper Clinican/Clinical Fellow: No Supervisory Statement: I have reviewed and agree with the student/clinical fellow's documentation: N/A Speech Language Pathologist: Heather Long M.A., CCC-PRINTING EQUIPMENT MECHANIC APPRENTICE
--- NOTE | 2024-09-18 10:31 | MHC.CM.PN ---
Addendum entered by Leah Dolan 09/18/24 12:25: Ute from the [place] returned CM's call and confirmed that CM DOES NOT have to go through the [facility] for [facility] to receive H[facility] at home. Patient has decided to go home with Hospice on 09/19/2024, via his Son's transport, with [facility]. PA is aware and in agreement with this plan. Original Note: This CM and PA/Arielle spoke together with HCP/Pan at listed # and PA has spoken with Patient; the decision was made not to proceed with Thoracentesis nor chest tube. Patient's insurance is now listed [place] as primary; CM left a detailed message for Ute, at the [facility]([phone], Ext. [phone] )(Laura off on Fridays and Carrol is starting vacation). CM awaits a return call from Ute to determine if [facility] auth is needed for home Hospice. CM will follow.
[2024-09-18 12:00] VITALS: BP 104/55; PULSE 79; RESP 16; TEMP 36.7; O2SAT 98
[2024-09-18 12:03] LABS: Glucose, Whole Blood 197 mg/dL (60-115)
[2024-09-18] MEDS: Insulin Lispro 100 UNIT/ML 3 ML VIAL SUBCUT (12:28)
--- NOTE | 2024-09-18 13:47 | MHC.CLN ---
F/U PT WITH INCREASED NUTRITION RISK R/T PRESSURE INJURY PO INTAKE POOR NOTED PT WITH 9% NONSIGNIFICANT WT LOSS X1 YEAR DIET RX: 2200DM 2GM NA RECEIVING ENSURE MAX BID TO PROMOTE FURTHER WOUND HEALING SUPP PROVIDES 300KCALS, 60G PROTEIN MONITOR PO INTAKE AND ENCOURAGE SUPPLEMENTS PT AND FAMILY SEEKING HOSPICE SERVICES
--- NOTE | 2024-09-18 14:34 | P.PNIM_ITS ---
Subjective Subjective Date of Service: 09/18/24 Interval History: Seen and examined this morning Follow-up for pleural effusion, failure to thrive Denies shortness of breath, stable on room air Review of Systems Review of Systems: Yes all other systems are reviewed and are negative Constitutional Constitutional: Denies chills and Denies fever(s) Cardiovascular Cardiovascular: Denies chest pain, Denies palpitations and Denies dyspnea Respiratory Respiratory: Denies cough and Denies dyspnea Endocrine Endocrine: Denies palpitations Physical Exam 2 Vital Signs: Vital Signs: Last Vital Signs Temp 98.1 F 09/18/24 12:00 Pulse 79 09/18/24 12:00 Resp 16 09/18/24 12:00 BP 104/55 L 09/18/24 12:00 Pulse Ox 98 09/18/24 12:00 O2 Del Method Room Air 09/18/24 08:00 O2 Flow Rate 2 09/17/24 10:56 BMI result Body Mass Index 21.7 Const: Other: Frail elderly male resting in bed comfortably General: cooperative, comfortable, alert and awake O rientation/consciousness: patient oriented x3 Resp: Other: right side dim Effort & Inspection: normal respiratory effort and able to speak in complete sentences Cardio: Rate: regular rate Neuro: Other: Grossly nonfocal General: patient oriented x3 Extrem: General: Yes no pedal edema Objective Data Active Medications Acetaminophen (Acetaminophen 325 Mg Tablet) 650 mg PO Q6H PRN PRN Reason: Pain, Mild 1-3,fever,headache Albuterol/Ipratropium (Albuterol/Iprat 2.5/0.5mg 3 Ml Ampul.Neb) 3 ml INHALE Q4H PRN PRN Reason: Shortness of Breath/Wheezing Amiodarone HCl (Amiodarone Hcl 200 Mg Tablet) 200 mg PO DAILY [facility] Last Admin: 09/18/24 09:04 Dose: 200 mg Documented By: FABIAN Ascorbic Acid (Ascorbic Acid 250 Mg Tablet) 250 mg PO DAILY [facility] Last Admin: 09/18/24 09:04 Dose: 250 mg Documented By: FABIAN Atorvastatin Calcium (Atorvastatin Calcium 40 Mg Tablet) 40 mg PO BEDTIME [facility] Last Admin: 09/17/24 19:49 Dose: 40 mg Documented By: TIM Bisacodyl (Bisacodyl 10 Mg Supp.Rect) 10 mg [place] BEDTIME PRN PRN Reason: Constipation Calcium Carbonate (Calcium Carbonate 750 Mg Tab.Chew) 750 mg PO Q4H PRN PRN Reason: Heartburn Ceftriaxone Sodium (Ceftriaxone Sodium 1 Gm Vial) 1 gm IVPUSH Q24H [facility] Last Admin: 09/17/24 21:19 Dose: 1 gm Documented By: TIM Cyanocobalamin (Cyanocobalamin (Vitamin B-12) 1,000 Mcg Tablet) 1,000 mcg PO DAILY [facility] Last Admin: 09/18/24 09:04 Dose: 1,000 mcg Documented By: FABIAN Dextrose (Dextrose 50 % 25 Gm/50 Ml Syringe) 25 gm IVPUSH Q15M PRN; Protocol PRN Reason: per Hypoglycemia Standing Ord. Docusate Sodium (Docusate Sodium 100 Mg Capsule) 100 mg PO BID [facility] Last Admin: 09/18/24 09:04 Dose: 100 mg Documented By: FABIAN Ferrous Sulfate (Ferrous Sulfate 324 Mg Tablet.) 324 mg PO DAILY [facility] Last Admin: 09/18/24 09:04 Dose: 324 mg Documented By: FABIAN Glucose (Glucose Gel 15 Gm Gel..Gram.) 15 gm PO Q15M PRN; Protocol PRN Reason: per Hypoglycemia Standing Ord. Insulin Human Lispro (Insulin Lispro 100 Unit/Ml 3 Ml Vial) 0 unit SUBCUT QIDACHS [facility]; Protocol Last Admin: 09/18/24 12:28 Dose: 2 unit Documented By: FABIAN Magnesium Hydroxide (Milk Of Magnesia 30 Ml Oral.Susp) 30 ml PO DAILY PRN PRN Reason: Constipation Magnesium Oxide (Magnesium Oxide 400 Mg Tablet) 400 mg PO DAILY [facility] Last Admin: 09/18/24 09:04 Dose: 400 mg Documented By: FABIAN Melatonin (Melatonin 3 Mg Tablet) 6 mg PO BEDTIME PRN PRN Reason: Insomnia Midodrine (Midodrine Hcl 2.5 Mg Tablet) 2.5 mg PO BID@0900,1200 [facility] Last Admin: 09/18/24 12:28 Dose: 2.5 mg Documented By: FABIAN Mirtazapine (Mirtazapine 7.5 Mg Tablet) 7.5 mg PO BEDTIME [facility] Last Admin: 09/17/24 19:49 Dose: 7.5 mg Documented By: TIM Ondansetron HCl (Ondansetron Hcl 4 Mg/2 Ml Vial) 4 mg IVPUSH Q8H PRN PRN Reason: Nausea and Vomiting Pantoprazole Sodium (Pantoprazole Sodium 40 Mg/10 Ml Vial) 40 mg IVPUSH DAILY@0630 [facility] Last Admin: 09/18/24 05:44 Dose: 40 mg Documented By: TIM Polyethylene Glycol (Polyethylene Glycol 3350 17 Gm Powd.Pack) 17 gm PO DAILY [facility] Last Admin: 09/18/24 09:04 Dose: 17 gm Documented By: FABIAN Senna (Sennosides 8.6 Mg Tablet) 8.6 mg PO BID [facility] Last Admin: 09/18/24 09:04 Dose: 8.6 mg Documented By: FABIAN Sodium Chloride (0.9 % Sodium Chloride Flush 3 Ml Syringe) 3 ml IVFLUSH QSHIFT [facility] Last Admin: 09/18/24 09:04 Dose: 3 ml Documented By: FABIAN Labs 09/17/24 06:39 09/17/24 06:39 Labs: Laboratory Results - last 24 hr 09/17/24 09/17/24 09/18/24 16:12 20:03 08:15 POC Glucose 116 H 272 H 94 09/18/24 11:50 POC Glucose 197 H Microbiology Microbiology Results: Microbiology 09/15/24 Unknown Urine Culture - Final Urine clean catch - Clean Catch Midstream Escherichia coli 09/15/24 22:08 Blood Culture - Preliminary Blood - Venous No growth after 48 hours. 09/15/24 22:18 Blood Culture - Preliminary Blood - Venous No growth after 48 hours. Assessment and Plan (1) UTI (urinary tract infection): Status: Acute (2) Pleural effusion on right: Status: Acute Plan This is an 89-year-old male with past medical history hypertension, hyperlipidemia, cataract repair, ETOH use (last use 5 weeks ago), anemia, heart failure with reduced EF of 15-20%, coronary artery disease involving current occlusion of the LAD (patient is not a candidate for stents or open heart surgery), BPH with chronic suprapubic catheter site, atrial fibrillation on amiodarone and anticoagulation, ischemic cardiomyopathy, lkf-hwatkiw-omkeojcaf diabetes, osteoarthritis and history of dysphagia with recent EGD back in April of 2024 status post food bolus issue, and intermittent diarrhea is being admitted for generalized weakness, UTI, and large left pleural effusion. UTI d/t chronic suprapubic catheter No sepsis Urine culture growing e.coli sensitive to ceftriaxone, continue IV ceftriaxone, d/c with po ceftin Blood cultures negative to date Large left pleural effusion on CXT and CT, possible loculation, assymptomatic currently on room air Seen by pulmonology - recommended therapeutic/diagnostic thoracentesis extensive discussion with pulm, IR, patient and family. IR had recommended chest tube rather than thoracentesis, ultimately family decided against intervention. Chronic HFrEF 20-25%, -BNP 336, appear euvolemic, got IV lasix 20 in ED, hold further diuretics low salt diet Dysphagia Seen by speech therapy, recommend regular diet with thin liquids Adult failure to thrive Significant Health decline with multiple comorbidities Pt/family want hospice at home, DNR/DNI, MOLST in place Plan for discharge home with hospice tomorrow Anemia, likely of chronic disease, monitor, no indication for further testing at this time H/H stable Continue B12, iron supplementation paroxysmal atrial fibrillation Continue amiodarone resume Eliquis as no thoracentesis planned Mild hyponatremia resolved DMII SSI, diabetic diet hold glipizide Constipation ongoing chronic issue, patient is on iron MiraLax daily senna HS Dulcolax suppository PRN if no BM in 48 hours DVT prophylaxis: Eliquis Patient is a DNR DNI, MOLST updated 09/16/2024 Quality Stroke Does the patient have a stroke diagnosis?: No Reason for No Anti-thrombotic by Day Two: N/A - Med Ordered VTE Prior VTE?: No VTE Risk Level:: Medical - moderate - high VTE Device Contraindication: N/A - Device Ordered VTE Drug Contraindication: N/A - Med Ordered
--- NOTE | 2024-09-18 14:58 | MHC.CM.PN ---
CM met with Patient and his Grandson/HCP/Pan to review the dc plan again- home tomorrow with [facility] after Hospice delivers home equipment between 8-noon; Patient and HCP are in agreement.
[2024-09-18 15:55] LABS: Glucose, Whole Blood 125 mg/dL (60-115)
[2024-09-18 16:00] VITALS: BP 109/56; PULSE 81; RESP 18; TEMP 36.7; O2SAT 96
[2024-09-18 19:35] VITALS: BP 116/58; PULSE 89; RESP 16; TEMP 36.7; O2SAT 94
[2024-09-18 20:10] LABS: Glucose, Whole Blood 126 mg/dL (60-115)
[2024-09-18] MEDS: Apixaban 2.5 MG TABLET PO (21:10)
[2024-09-18] MEDS: Mirtazapine 7.5 MG TABLET PO (21:10)
[2024-09-18] MEDS: cefTRIAXone sodium 1 GM VIAL IVPUSH (21:11)
[2024-09-18] MEDS: Atorvastatin Calcium 40 MG TABLET PO (21:12)
[2024-09-18 23:49] VITALS: BP 108/56; PULSE 82; RESP 16; TEMP 36.7; O2SAT 96
[2024-09-19 03:52] VITALS: BP 105/65; PULSE 79; RESP 16; TEMP 36.8; O2SAT 94
[2024-09-19] MEDS: Pantoprazole Sodium 40 MG/10 ML VIAL IVPUSH (06:21)
[2024-09-19 06:59] LABS: Glucose, Whole Blood 101 mg/dL (60-115)
[2024-09-19 07:21] VITALS: BP 98/55; PULSE 79; RESP 20; TEMP 36.2; O2SAT 94
--- NOTE | 2024-09-19 09:45 | PM.DS ---
DS: Providers Provider Date of Service: 09/19/24 Date of admission: 09/15/24 23:35 Date of discharge: 09/19/24 Primary care physician: [facility] Consults: 09/16/24 01:00 Consult to Case Management Routine Comment: pt and family struggling with decline in pt's hlth 09/16/24 01:01 Consult to Hospice Routine Comment: pt/family requesting info, pt is declining overall 09/16/24 09:34 Consult to Pulmonology Routine [place]ing [place] [facility] Reason for consultation: Large left pleural effusion 09/16/24 14:23 Consult to Pulmonology Routine Consulting Provider[place] [facility] Reason for consultation: large effusion Has provider been notified: No 09/16/24 14:41 Consult to Wound Care Routine Reason for consultation: open are to coccyx Attending physician on discharge: Boogie Tripathi Discharging clinician: Arielle Miranda DS: Diagnosis Discharge Diagnosis (1) UTI (urinary tract infection): Status: Acute (2) Pleural effusion on right: Status: Acute DS: Summary Hospital Course Hospital Course: From H&P on the day of admission This is an 89-year-old male with past medical history hypertension, hyperlipidemia, cataract repair, ETOH use (last use 5 weeks ago), anemia, heart failure with reduced EF of 15-20%, coronary artery disease involving current occlusion of the LAD (patient is not a candidate for stents or open heart surgery), BPH with chronic suprapubic catheter site, atrial fibrillation on amiodarone and anticoagulation, ischemic cardiomyopathy, rsi-ldokvtk-sphqqjyte diabetes, osteoarthritis and history of dysphagia with recent EGD back in April of 2024 status post food bolus issue, and intermittent diarrhea presents to the emergency room with concerns regarding loss of appetite, generalized fatigue, progressive immobility and weakness. Patient was found to have recurring urinary tract infection with chronic suprapubic catheter in place. Patient states the catheter has been changed within 30 days by the [facility] nursing staff. In addition patient has a large left pleural effusion which is progressive from previous chest x-ray back in June when the effusion was small. Patient has been off his Lasix since being at [facility], proximally 2 months now. Patient was seen by his embedded software design engineer on SaturdaySeptember 15 and there was no discussion regarding patient's need for possible diuretic to continue. Patient has had issues with orthostasis dilation and has been on midodrine. Patient also reports continued constipation issues without straining. Family states MiraLax was effective Patient is not hypoxic on admission, is currently on room air and is not in respiratory distress. Patient does not have oxygen at home. Chest x-ray also noted dense opacity of the right mid lung and right lung base with obscuration of the right heart border and right hemidiaphragm. CT scan of the chest was ordered by ED provider for further clarification of chest x-ray findings and those results are pending. Patient does present with a leukocytosis of 12.8, an H and H of 7.3 and 23.1. Patient's H&H back on August 26 was 7.4 and 23.1. Family states the home care nursing was monitoring patient's H and H and it was advocated that patient should go for a transfusion but patient refused to traveled to [place] for the intervention. Hemodynamics currently stable. Patient was started on ceftriaxone in the ED. patient is receiving 20 of Lasix IV x1. Patient's grandson expresses frustration because the nursing staff have been coming into the home and stressing that patient should drink as much fluid as he can tolerate. As stated above patient's Lasix has been on hold since being in rehab. Last echo was in November of 2023. EF at that time was 15-20%. BNP is elevated this admission, 336. Patient was admitted back in June of 2024 with urinary tract infection. Patient qualified for rehabilitation and went to [facility]. Patient then returned home to live with his daughter and grandson who are his primary caregivers. Since returning from rehab, there has been significant decline and patient is experience weight loss, loss of appetite, difficulty swallowing, involuntary twitching, hoarseness with patient's voice and overall inability to ambulate and need for wheelchair. Patient is currently alert and orientated able to make decisions for himself and did update his MOLST to a DNR DNI. Per patient's family, [facility] and [facility] and prior patient did not do well with the word hospice as he thought this meant he would most likely in the next few days. Education provided to patient and family and patient is requesting consultation to learn more about hospice and palliative care. Family is receiving currently 13 hours of [employer] assistance and this is not enough to meet the needs of the patient at this time. Patient would like to return home and continue living with his grandson. Patient is realistic about his current health status and that he is likely declining overall. Patient states the end will be the end and patient states this with calmness and peacefulness. UTI d/t chronic suprapubic catheter. No sepsis Urine culture growing e.coli sensitive to ceftriaxone, continue IV ceftriaxone, d/c with po ceftin. Blood cultures negative to date Large left pleural effusion on CXT and CT, possible loculation, assymptomatic currently on room air Seen by pulmonology - recommended therapeutic/diagnostic thoracentesis extensive discussion with pulm, IR, patient and family. IR had recommended chest tube rather than thoracentesis, ultimately family decided against intervention. Dysphagia. Seen by speech therapy, recommend regular diet with thin liquids Adult failure to thrive Significant Health decline with multiple comorbidities. Patient and family met with hospice and have elected to return home with hospice services Time Attestation Discharge Coordination Time (in mins): 35 Quality: Safe Use of Opioids Does Pt have an Active Cancer Diagnosis on the Problem List?: No Quality: Stroke Does the patient have a stroke diagnosis?: No Physical Exam Vital Signs: Vital Signs: Last Vital Signs Temp 97.1 F 09/19/24 07:21 Pulse 79 09/19/24 07:21 Resp 20 09/19/24 07:21 BP 98/55 L 09/19/24 07:21 Pulse Ox 94 09/19/24 07:21 O2 Del Method Room Air 09/19/24 07:21 O2 Flow Rate 2 09/17/24 10:56 BMI result Body Mass Index 21.7 Const: Other: Frail elderly male resting in bed comfortably General: cooperative, comfortable, alert and awake Orientation/consciousness: patient oriented x3 Resp: Other: right side dim Effort & Inspection: normal respiratory effort and able to speak in complete sentences Cardio: Rate: regular rate Neuro: Other: Grossly nonfocal General: patient oriented x3 Extrem: General: Yes no pedal edema DS: Data Data Completed and Pending Pending studies at discharge: Pending at discharge 09/17/24 11:09 Cytology [PTH] Routine Labs on day of discharge: Laboratory Results - last 24 hr 09/18/24 09/18/24 09/18/24 11:50 15:52 20:07 POC Glucose 197 H 125 H 126 H 09/19/24 06:53 POC Glucose 101 Preliminary micro results at discharge 09/15/24 22:08 Blood Culture - Preliminary Blood - Venous No growth after 48 hours. 09/15/24 22:18 Blood Culture - Preliminary Blood - Venous No growth after 48 hours. Discharge Plan Discharge Anticipated Discharge Date/Time: 09/19/24 13:00 Patient Disposition: Hospice - Home Discharge Diagnosis: right pleural effusion anemia generalized weakness UTI Referrals: [facility] [Outside] - 1 Week Center,[facility] [Primary Care Provider] - 1 Week Discharge Medications: New cefuroxime axetil 250 mg tablet 250 mg PO Q12H 4 Days Qty: 8 0RF Continued (DME) blood-glucose meter [Accu-Chek Guide Glucose Meter] Misc See Rx Instructions .Route Qty: 1 0RF Rx Instructions: As directed (DME) blood-glucose meter [FreeStyle Lite Meter] Kit See Rx Instructions .ROUTE .COMPLEX Qty: 1 0RF Dose Instruction: USE DIRECTED Rx Instructions: USE DIRECTED amiodarone 200 mg tablet 200 mg PO DAILY 90 Days Qty: 90 3RF (DME) FreeStyle Lite Strips Strip See Rx Instructions .Route Qty: 100 8RF Rx Instructions: to check blood sugars once a day atorvastatin 40 mg tablet 40 mg PO BEDTIME Qty: 90 3RF ferrous sulfate 324 mg (65 mg iron) Tablet,Delayed Release (Dr/Ec) 324 mg PO DAILY Qty: 90 0RF cyanocobalamin (vitamin B-12) [Vitamin B-12] 1,000 mcg Tablet 1,000 mcg PO DAILY Qty: 90 0RF magnesium oxide 400 mg magnesium tablet 400 mg PO DAILY Qty: 90 0RF acetaminophen 500 mg Tablet 1,000 mg PO BID PRN (Reason: Pain) sennosides [senna] 8.6 mg Tablet 8.6 mg PO BID ascorbic acid (vitamin C) 250 mg Tablet 250 mg PO DAILY docusate sodium 100 mg Capsule 100 mg PO BID midodrine 2.5 mg Tablet 2.5 mg PO BID@0900,1200 Rx Instructions: do not give last dose of day after 6PM or within 4 hrs of bedtime ondansetron 4 mg Tablet,Disintegrating 4 mg PO Q8H PRN (Reason: Nausea And Vomiting) apixaban 2.5 mg Tablet 2.5 mg PO BID mirtazapine [Remeron] 15 mg tablet 7.5 mg PO BEDTIME Held glipizide 2.5 mg tablet 2.5 mg PO DAILY Hold Instructions: blood sugars have been controlled without glipizide methenamine hippurate 1 gram tablet 1 g PO DAILY 90 Days Qty: 90 1RF Hold Instructions: hold until complete course of antibiotics Discharge Orders: Discharge Order (Routine); Ordered 09/19/24 Ordered By: Arielle Miranda Activity on Discharge: As tolerated Stand Alone Forms: Patient Portal Discharge page Print Language: Swedish Care Plan Goals: see below Health Concerns: UTI Right pleural effusion Plan of Treatment: Complete course of oral antibiotics Plan to return home on hospice Assessment: see discharge summary Patient Instructions: Cefuroxime (By mouth) (Ceftin)
[2024-09-19] MEDS: 0.9 % Sodium Chloride Flush 3 ML SYRINGE IVFLUSH (09:56)
[2024-09-19 09:57] VITALS: BP 98/55
[2024-09-19] MEDS: Magnesium Oxide 400 MG TABLET PO (09:57)
[2024-09-19] MEDS: polyethylene glycoL 3350 17 GM POWD.PACK PO (09:57)
[2024-09-19] MEDS: Amiodarone HCL 200 MG TABLET PO (09:57)
[2024-09-19] MEDS: Sennosides 8.6 MG TABLET PO (09:57)
[2024-09-19] MEDS: Ferrous Sulfate 324 MG TABLET.DR PO (09:57)
[2024-09-19] MEDS: Ascorbic Acid 250 MG TABLET PO (09:57)
[2024-09-19] MEDS: Midodrine HCl 2.5 MG TABLET PO (09:57)
[2024-09-19] MEDS: Apixaban 2.5 MG TABLET PO (09:57)
[2024-09-19] MEDS: Cyanocobalamin (Vitamin B-12) 1,000 MCG TABLET 1000 MCG PO (09:57)
[2024-09-19] MEDS: Docusate Sodium 100 MG CAPSULE PO (09:57)
[2024-09-19 10:55] LABS: Glucose, Whole Blood 110 mg/dL (60-115)
[2024-09-19 11:03] VITALS: BP 101/58; PULSE 80; RESP 18; TEMP 36.2; O2SAT 96
--- NOTE | 2024-09-19 12:47 | MHC.CM.PN ---
PT CLEARED TO [place] TODAY, HOME WITH [facility] CM SPOKE TO PTS GRANDSON, RONAL [phone] HE REPORTS HE IS PICKING UP PTS MEDS NOW AND WILL BE IN TO TRANSPORT PT HE CONFIRMED PTS DME WAS ALREADY DELIVERED AND HE IS SUPPOSED TO CALL THE [facility] RN ONCE PT IS HOME
== END 2024-09-19 13:47 | disposition hospice, home (50) | DRG 699 ==
LOC: HO.ED 23:41 → HO.EDOVER 23:58 → HO.IMC 09-16 13:18
PROVIDERS: Internal Medicine; Nurse Practitioner Family; Physician Assistant Surgical; Admitting Provider Internal Medicine; Emergency Provider Emergency Medicine; Visit Provider Physician Assistant Medical
DX: T83.510A Infection and inflammatory reaction due to cystostomy catheter, initial encounter (principal); E87.1 Hypo-osmolality and hyponatremia; I50.22 Chronic systolic (congestive) heart failure; N39.0 Urinary tract infection, site not specified; J90 Pleural effusion, not elsewhere classified; I25.10 Atherosclerotic heart disease of native coronary artery without angina pectoris; N40.1 Benign prostatic hyperplasia with lower urinary tract symptoms; Z20.822 Contact with and (suspected) exposure to COVID-19; I11.0 Hypertensive heart disease with heart failure; F10.21 Alcohol dependence, in remission; B96.20 Unspecified Escherichia coli [E. coli] as the cause of diseases classified elsewhere; Z66 Do not resuscitate; D63.8 Anemia in other chronic diseases classified elsewhere; R62.7 Adult failure to thrive; Z68.21 Body mass index [BMI] 21.0-21.9, adult; I48.0 Paroxysmal atrial fibrillation; R13.10 Dysphagia, unspecified; K59.00 Constipation, unspecified; Z87.440 Personal history of urinary (tract) infections; I25.5 Ischemic cardiomyopathy; Y82.8 Other medical devices associated with adverse incidents; Z87.891 Personal history of nicotine dependence; Z79.01 Long term (current) use of anticoagulants; Z79.84 Long term (current) use of oral hypoglycemic drugs; Z79.899 Other long term (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
CPT/HCPCS: 0241U; 36415; 71045; 71260; 80048; 80053; 80076; 80307; 81001; 82607; 82803; 82947; 83540; 83605; 83615; 83690; 83735; 83880; 84484; 85025; 85027; 85610; 86140; 86850; 86900; 86901; 87040; 87086; 87088; 87186; 92526; 92610; 93005; 93306; 97162; 99285; J0696; J1650; J1938; J2470; Q9957; Q9967

== ENCOUNTER → 2024-09-15 19:46 | Outpatient (BNV) | payer MEDICARE, OTHER, SELFPAY | PROVIDERS: Emergency Provider Emergency Medicine; Visit Provider Radiology Diagnostic Radiology | DX: J90 Pleural effusion, not elsewhere classified (principal) | CPT/HCPCS: 71045 ==

== ENCOUNTER 2024-09-15 23:35 | Outpatient (BNV) | payer OTHER, SELFPAY | END 2024-09-16 07:00 | PROVIDERS: Admitting Provider Internal Medicine; Emergency Provider Emergency Medicine; Visit Provider Internal Medicine Cardiovascular Disease | DX: I50.40 Unspecified combined systolic (congestive) and diastolic (congestive) heart failure (principal); I34.0 Nonrheumatic mitral (valve) insufficiency; I34.89 Other nonrheumatic mitral valve disorders | CPT/HCPCS: 93306 ==

== ENCOUNTER → 2024-09-15 23:35 | Outpatient (BNV) | payer OTHER, SELFPAY | PROVIDERS: Admitting Provider Internal Medicine; Emergency Provider Emergency Medicine; Visit Provider Hospitalist | DX: J90 Pleural effusion, not elsewhere classified (principal); I50.22 Chronic systolic (congestive) heart failure | CPT/HCPCS: 99223 ==

== ENCOUNTER → 2024-09-15 23:35 | Outpatient (BNV) | payer MEDICARE, OTHER, SELFPAY | PROVIDERS: Admitting Provider Internal Medicine; Emergency Provider Emergency Medicine; Visit Provider Nurse Practitioner Family | DX: J90 Pleural effusion, not elsewhere classified (principal); N39.0 Urinary tract infection, site not specified | CPT/HCPCS: 99223; 99233; 99499 ==